=== PATIENT | male | born 1985 | race Caucasian/White ===

== ENCOUNTER 2023-07-09 10:07 | Outpatient (OUT) | payer MEDICARE, MEDICAID, SELFPAY ==
--- NOTE | 2023-07-09 | XR_ITS ---
The [address] [address] Patient Name: MICHAEL AN MRN: [id number] date: 1985 Sex: M Assigned Patient Location: [facility] Current Patient Location: Accession/Order Number: [id number] Exam Date: 07/09/2023 10:10 Report Date: 07/10/2023 08:58 At the request of: SHARLA PEDROZA Procedure: XR foot LT min 3V PROCEDURE: XR foot LT min 3V COMPARISON: None. HISTORY: LEFT FOOT PAIN FINDINGS: BONES:5 mm corticated bone fragment identified along the proximal lateral cuboid likely related to mild degenerative change. No definite fracture or dislocation SOFT TISSUES:Negative. No visible soft tissue swelling. EFFUSION:None visible. OTHER: Negative. XR/XR foot LT min 3V IMPRESSION: No acute abnormality Electronically authenticated by: ANGIE FULLER Date: 07/10/2023 08:58
== END 2023-07-09 10:08 | disposition home or self-care (01) ==
LOC: RAD 10:10
PROVIDERS: PCP Internal Medicine; Visit Provider Physician Assistant
DX: M79.672 Pain in left foot (principal)
CPT/HCPCS: 73610; 73630

== ENCOUNTER 2023-08-11 13:01 | Outpatient (RCR) | payer MEDICARE, MEDICAID, SELFPAY | END 2023-09-04 15:36 | disposition home or self-care (01) | LOC: PT 13:01 | PROVIDERS: PCP Internal Medicine; Visit Provider Physician Assistant | DX: M76.822 Posterior tibial tendinitis, left leg (principal) | CPT/HCPCS: 97110; 97162; G0283 ==

== ENCOUNTER 2023-09-16 09:29 | Outpatient (OUT) | payer MEDICARE, MEDICAID, SELFPAY ==
--- NOTE | 2023-09-16 09:33 | MR_ITS ---
The [address] [address] Patient Name: MICHAEL AN MRN: [id number] date: 1985 Sex: M Assigned Patient Location: MRI Current Patient Location: Accession/Order Number: [id number] Exam Date: 09/16/2023 09:42 Report Date: 09/17/2023 08:24 At the request of: HOWARD NAM Procedure: MR ankle LT wo con EXAM: MR ankle LT wo con REASON FOR EXAM: Ankle Instability. TECHNIQUE: Multiplanar, multisequence imaging of the left ankle was performed without contrast COMPARISON: Radiographs 07/09/2023. FINDINGS: There is fusiform thickening and intermediate signal involving the Achilles tendon consistent with tendinosis. No tear identified. The plantar fascia is normal in thickness. Laterally, peroneal tendons demonstrate grossly normal thickness and signal without significant tendinosis or tear. Possible mild tenosynovitis. The superficial peroneal retinaculum is intact. Thickening and intermediate signal involving the anterior talofibular and calcaneofibular ligaments is consistent with prior lateral ligamentous injury. No evidence of acute lateral ligamentous injury identified. Medially, the medial flexor tendons demonstrate normal thickness and signal without tendinosis or tear. The deep deltoid ligament is grossly intact. The spring ligament is intact. The partially imaged Lisfranc ligament appears intact. Anteriorly, the anterior extensor tendons demonstrate normal thickness and signal without tendinosis or tear. The bone marrow signal is without fracture. The talar dome is congruent with low-grade chondrosis. The subtalar joints congruent. The sinus tarsi is nonedematous. The midfoot appears congruent. 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 MR/MR ankle LT wo con IMPRESSION: 1. Achilles tendinosis without tear. 2. Sequela of prior lateral ligamentous injury. No evidence of acute ligamentous injury. 3. 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 Electronically authenticated by: JIMMY AZEVEDO Date: 09/17/2023 08:24
== END 2023-09-16 09:30 | disposition home or self-care (01) ==
LOC: MRI 09:29
PROVIDERS: PCP Internal Medicine; Visit Provider Podiatrist Foot & Ankle Surgery
DX: M25.372 Other instability, left ankle (principal); M76.62 Achilles tendinitis, left leg
CPT/HCPCS: 73721

== ENCOUNTER 2023-09-28 12:33 | Outpatient (OUT) | payer MEDICARE, MEDICAID, SELFPAY ==
--- OUTSIDE RECORDS SUMMARY | 2023-09-28 12:51 | XMS_ITS | CCD ---
Author Name Unknown Address [address] [place] [address] Organization [facility] Care Team Providers Care Flow Specialist Name Role Phone RM, DR VAZQUEZ Attending Unavailable RM, DR VAZQUEZ Consulting Unavailable RM, DR VAZQUEZ Primary Care Unavailable BALL, DR VAZQUEZ Admitting Unavailable ALINA, DR ANGIE Winslow Consulting Unavailable Luis Abdalla DO Primary Care Provider Angie Fernandes Jr. Unavailable Nadja Spencer RN Unavailable Unavailable Luis Abdalla DO Primary Care Provider Angie Fernandes Jr. Unavailable [phone] Nadja Spencer RN Unavailable Unavailable Dena Pineda DO, David L Unavailable Nadja Spencer RN Unavailable Unavailable Luis Abdalla DO Primary Care Provider Dena Pineda DO, David L Unavailable [phone] Nadja Spencer RN Unavailable Unavailable Luis Abdalla Unavailable LUIS ABDALLA Primary Care Unavailable ROSEMARIE SHEPARD Attending Unavailable BETINA QUEZADA Referring Unavailable HENRIETTA BREWSTER Attending Unavailable LUIS ABDALLA Primary Care Unavailable BETINA QUEZADA Attending Unavailable BETINA QUEZADA Referring Unavailable LUIS ABDALLA Primary Care Unavailable LUIS ABDALLA Primary Care Unavailable MINNA DWYER Attending Unavailable REYMUNDO CHARLES Admitting Unavailable MINNA DWYER Referring Unavailable SUZIE KNOTT Attending Unavailable LUIS ABDALLA Primary Care Unavailable LUIS ABDALLA Primary Care Unavailable BENNY CLEMONS Referring Unavailable LUIS ABDALLA Primary Care Physician [phone] Wilmer Rosenberg Attending Unavailable Allergies Allergy Classification Reported Allergen(s) Allergy Type Date of Onset Reaction(s) Facility Penicillins (antibiotic) (1 source) Penicillin Drug Allergy [facility] Repository (16 sources) Midazolam; Translations: [MIDAZOLAM] Drug Allergy 02-19-20 Other: See Comments [facility] (6 sources) Penicillins; Translations: [PENICILLINS] Drug Allergy Unknown [facility] Work Phone: (16 sources) Seasonal allergy; Translations: [SEASONAL ALLERGIES] Propensity to adverse reactions 06-29-20 Unknown [facility] (10 sources) Penicillins Drug Allergy Unknown [facility] Work Phone: (3 sources) penicillAMINE Drug Allergy Unknown [facility] Other (2 sources) Penicillin; Translations: [penicillin] Drug Allergy Urticaria (disorder) [facility] Medications Current Medications Medication Drug Class(es) Dates Sig (Normalized) Sig (Original) 0.4 ml enoxaparin sodium 100 mg/ml prefilled syringe (4 sources) Low Molecular Weight Heparin Start: 11-04-2021 End: 02-02-2022 inject 40 mg by subcutaneous injection every twelve hours enoxaparin (LOVENOX) 40 mg/0.4 mL Inject 0.4 mL subcutaneously every 12 hours. 24 mL 2 11/04/2021 02/02/2022 Active Comment on above: Inject 0.4 mL subcut aneously every 12 hours. mupirocin 0.02 mg/mg topical ointment (2 sources) RNA Synthetase Inhibitor Antibacterial Start: 03-05-2023 Mupirocin 2 % 1 application Externally Twice a day for 10 days Feb, Active ondansetron 4 mg oral tablet (1 source) Serotonin-3 Receptor Antagonist take 1 tablet by mouth every eight hours as needed for nausea Ondansetron HCl 4 MG 1 tablet Orally every 8 hours as needed for nausea for 30 days Active tacrolimus 1 mg oral capsule (17 sources) Calcineurin Inhibitor Immunosuppressant Start: 05-05-2022 End: 04-30-2023 take 1 capsule by mouth twice daily tacrolimus IR (PROGRAF) 1 mg capsule Take 2 capsules by mouth twice daily. 120 capsule 11 05/05/2022 04/30/2023 Active Start: 11-04-2021 End: 05-01-2022 tacrolimus IR (PROGRAF) 1 mg capsule Please take 2mg in the morning and 1mg in the evening for a total of 3mg a day. 120 capsule 3 11/04/2021 05/01/2022 Discontinued take 3 capsules by m outh every twelve hours Tacrolimus 1 MG 3 tablets Orally twice a day Active Comment on above: Take 2 capsules by m outh twice daily. Please take 2mg in the morning and 1mg in the evening for a total of 3mg a day. Please take 2mg in t he morning and 1mg in the evening for a total of 3mg a day. Take 2 capsules by m outh twice daily. ursodiol 300 mg oral capsule (4 sources) Bile Acid Start: 11-04-2021 End: 12-04-2021 take 1 capsule by mouth three times daily ursodiol (ACTIGALL) 300 mg capsule Take 1 capsule by mouth three times daily. 90 capsule 0 11/04/2021 12/04/2021 Active Comment on above: Take 1 capsule by mo tnh three times daily. Completed/Discontinued Medications Medication Drug Class(es) Dates Sig (Normalized) Sig (Original) amLODIPine 10 mg oral tablet (16 sources) Dihydropyridine Calcium Channel Yazan Start: 10-13-2019 take 1 tablet by mouth once daily amLODIPine (NORVASC) 10 mg tablet TAKE 1 TABLET BY MOUTH ONCE DAILY. 30 tablet 5 10/13/2019 Active Comment on above: TAKE 1 TABLET BY SYLVESTER ONCE DAILY. carvedilol 12.5 mg oral tablet (17 sources) alpha-Adrenergic Yazan, beta-Adrenergic Yazan Start: 07-12-2021 take 1 tablet by mouth twice daily carvedilol (COREG) 12.5 mg tablet Take 1 tablet by mouth twice daily. 0 07/12/2021 Active take 1 tablet by sylvester th every twelve hours Carvedilol 25 MG 1 tablet with food Oral Twice a day Active Comment on above: Take 1 tablet by sylvester th twice daily. doxycycline hyclate 100 mg oral capsule (2 sources) Tetracycline-cla ss Drug Start: 03-05-2023 take 1 capsule by mouth every twelve hours Doxycycline Hyclate 100 MG 1 capsule Orally Twice a day for 7 days Feb, Not-Taking enteric contrast (will be provided with radiology test) (13 sources) Start: 12-16-2021 enteric contrast (will be provided with radiology test) For CT ABD W IVCON order Administer, As Directed One Time Only, via Oral, Rectal, both Oral and Rectal, Enteric Tube, Stoma or Indwelling Catheter, Enteric Contrast as designated per enteric contrast guidelines 1 Each 0 12/16/2021 Suspended Start: 12-16-[address] (will be provided with radiology test) For CT ABD W IVCON order Administer, As Directed One Time Only, via Oral, Rectal, both Oral and Rectal, Enteric Tube, Stoma or Indwelling Catheter, Enteric Contrast as designated per enteric contrast guidelines 1 Each 0 12/16/2021 Active Comment on above: For CT ABD W IVCON o rder Administer, As Directed One Time Only, via Oral, Rectal, both Oral and Rectal, Enteric Tube, Stoma or Indwelling Catheter, Enteric Contrast as designated per enteric contrast guidelines iv contrast (will be provided with radiology test) (13 sources) Start: 12-16-2021 iv contrast (will be provided with radiology test) CT ABD W -Inject, intravenously, once for 1 dose.No IV access, insert saline lock prior to the beginning of sedation, infusion, injection of imaging exam. Discontinue saline lock post exam. If Pt. has a central line or IVAD, may access for administration according to line specific nursing protocol. Once exam is complete flush line and de-access according to line specific nursing protocol in the CT contrast administration guidelines link. 1 Each 0 12/16/2021 Suspended Start: 12-16-2021 iv contrast (w ill be provided with radiology test) CT ABD W -Inject, intravenously, once for 1 dose.No IV access, insert saline lock prior to the beginning of sedation, infusion, injection of imaging exam. Discontinue saline lock post exam. If Pt. has a central line or IVAD, may access for administration according to line specific nursing protocol. Once exam is complete flush line and de-access according to line specific nursing protocol in the CT contrast administration guidelines link. 1 Each 0 12/16/2021 Active Comment on above: CT ABD W -Inject, in travenously, once for 1 dose.No IV access, insert saline lock prior to the beginning of sedation, infusion, injection of imaging exam. Discontinue saline lock post exam. If Pt. has a central line or IVAD, may access for administration according to line specific nursing protocol. Once exam is complete flush line and de-access according to line specific nursing protocol in the CT contrast administration guidelines link. magnesium oxide 400 mg oral tablet (13 sources) Start: take 1 tablet by mouth twice daily magnesium oxide (MAG-OX) 400 mg (241.3 mg magnesium) tablet Take 1 tablet by mouth twice daily. 60 tablet 0 07/12/2021 Active Comment on above: Take 1 tablet by sylvester th twice daily. pantoprazole 40 mg delayed release oral tablet (16 sources) Proton Pump Inhibitor Start: take 1 tablet by mouth once daily, then take 6 tablets by mouth in the morning pantoprazole DR (PROTONIX) 40 mg tablet Take 1 tablet by mouth DAILY (6 AM). 30 tablet 0 07/13/2021 Active Comment on above: Take 1 tablet by sylvester th DAILY (6 AM). sulfamethoxazole 800 mg / trimethoprim 160 mg oral tablet (15 sources) Dihydrofolate Reductase Inhibitor Antibacterial, Sulfonamide Antimicrobial Start: take 1 tablet by mouth once sulfamethoxazole-tr imethoprim (BACTRIM DS,SEPTRA DS) 800-160 mg per tablet TAKE 1 TABLET BY MOUTH EVERY THURSDAY,THURSDAY,. 13 tablet 11 09/02/2021 Suspended take 1 tablet by sylvester th every twenty-four hours Bactrim 400-80 MG 1 tablet Orally Once a day Not-Taking Comment on above: TAKE 1 TABLET BY SYLVESTER TH EVERY THURSDAY,THURSDAY,THURSDAY. 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] Onset: 3 Chronic Coagulation and hemorrhagic disorders (6 sources) Thrombocytopenic disorder; Translations: [Thrombocytopenia, unspecified] Onset: 8 Chronic Complication of device; implant or graft (15 sources) Acute rejection of liver transplant; Translations: [Liver transplant rejection] Onset: 9 07-19-2019 Episodic Deficiency and other anemia (17 sources) Anemia; Translations: [Anemia, unspecified] Onset: 9 07-15-2019 Episodic Deficiency and other anemia (1 source) Anemia, unspecified Episodic Esophageal disorders (1 source) Gastro-esophageal reflux disease with esophagitis; Translations: [Gastroesophageal reflux disease with esophagitis without hemorrhage] Chronic Essential hypertension (20 sources) Essential hypertension; Translations: [Essential (primary) hypertension] Onset: 1 07-12-2021 Chronic Hypertension with complications and secondary hypertension (4 sources) Chronic kidney disease due to hypertension; Translations: [Hypertensive chronic kidney disease with stage 1 through stage 4 chronic kidney disease, or unspecified chronic kidney disease] Chronic Immunity disorders (5 sources) Immunosuppression; Translations: [Immunodeficiency, unspecified] Chronic Immunizations and screening for infectious disease (1 source) Vaccination given; Translations: [Encounter for immunization] Episodic Nausea and vomiting (1 source) Nausea Episodic Nutritional deficiencies (14 sources) Deficiency of macronutrients; Translations: [Unspecified severe protein-calorie malnutrition] Onset: 8 2021 Chronic Other liver diseases (3 sources) Disease of liver; Translations: [Liver disease, unspecified] Chronic Other liver diseases (3 sources) Steatosis of liver; Translations: [Fatty (change of) liver, not elsewhere classified] Chronic Other liver diseases (3 sources) Transplanted liver present; Translations: [Liver transplant status] Chronic Other liver diseases (4 sources) Liver transplant status; Translations: [Liver transplant recipient (HCC)] Onset: 2 Chronic Other liver diseases (4 sources) Jaundice; Translations: [Unspecified jaundice] Onset: 8 Episodic Other nutritional; endocrine; and metabolic disorders (14 sources) Hemochromatosis; Translations: [Hemochromatosis, unspecified] Onset: 8 07-12-2021 Chronic Other nutritional; endocrine; and metabolic disorders (14 sources) Obese class I; Translations: [Obesity, unspecified] Onset: 8 07-14-2018 Chronic Other nutritional; endocrine; and metabolic disorders (14 sources) Hypomagnesemia; Translations: [Hypomagnesemia] Onset: 1 07-12-2021 Chronic Other nutritional; endocrine; and metabolic disorders (1 source) Disorder of iron metabolism; 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, unspecified] Chronic Other nutritional; endocrine; and metabolic disorders (1 source) Hereditary hemochromatosis; Translations: [Hereditary hemochromatosis] Chronic Other nutritional; endocrine; and metabolic disorders (1 source) Simple obesity ; Translations: [Other obesity due to excess calories] Onset: 8 Chronic Other nutritional; endocrine; and metabolic disorders (1 source) Obesity; Translations: [Obesity, unspecified] Chronic Other nutritional; endocrine; and metabolic disorders (1 source) Hypomagnesemia; Translations: [Hypomagnesemia] Onset: 1 Chronic Other skin disorders (2 sources) Vesicular eczema; Translations: [Dyshidrosis [pompholyx]] Episodic Other skin disorders (1 source) Dyshidrosis [pompholyx] Episodic Other upper respiratory disease (14 sources) Allergic rhinitis due to pollen; Translations: [Allergic rhinitis due to pollen] Onset: 9 09-01-2018 Chronic Pancreatic disorders (not diabetes) (20 sources) Acute pancreatitis; Translations: [Acute pancreatitis without necrosis or infection, unspecified] Onset: 1 07-12-2021 Episodic Phlebitis; thrombophlebitis and thromboembolism (3 sources) Embolism and thrombosis of renal vein; Translations: [Embolism and thrombosis of the renal vein] Chronic Residual codes; unclassified (1 source) Prevention status; Translations: [Encounter for other specified prophylactic measures] Episodic Skin and subcutaneous tissue infections (15 sources) Cellulitis; Translations: [Cellulitis, unspecified] Onset: 8 07-13-2018 Episodic Spondylosis; intervertebral disc disorders; other back problems (8 sources) Other spondylosis with radiculopathy, cervical region; Translations: [Other spondylosis with myelopathy, cervical region] Onset: 1 Chronic Sprains and strains (2 sources) Sprain of left foot; Translations: [Unspecified sprain of left foot, initial encounter] Onset: 3 Episodic Past or Other Problems Problem Classification Problem Date Documented Da te Episodic/Chronic Abdominal pain (1 source) Right upper quadrant pain; Translations: [Right upper quadrant pain] Onset: 09-10-2017 Episodic E Codes: Adverse effects of medical drugs (14 sources) Adverse reaction to drug; Translations: [Adverse effect of unspecified drugs, medicaments and biological substances, initial encounter] Onset: 09-01-2018 09-01-2018 Episodic Esophageal disorders (4 sources) Esophageal disorders; Translations: [Gastroesophageal reflux disease with esophagitis without hemorrhage] Gastrointestinal hemorrhage (1 source) Hematemesis; Translations: [Hematemesis] Onset: 09-10-2017 Episodic Other circulatory disease (14 sources) Elevated blood-pressure reading without diagnosis of hypertension; Translations: [Elevated blood-pressure reading, without diagnosis of hypertension] Onset: 07-13-2019 07-15-2019 Episodic Other upper respiratory disease (1 source) Bleeding from nose; Translations: [Epistaxis] Onset: 11-26-2017 Episodic Septicemia (except in labor) (1 source) Sepsis, unspecified organism; Translations: [Sepsis, due to unspecified organism, unspecified whether acute organ dysfunction present (HCC)] Onset: 08-31-2022 Episodic Results Test Name Value Interpretation Reference Range Facility Consent for Treatmenton 05-28 Consent for Treatment [id number] IFF Normal [facility] Discharge Instructionson Discharge Instructions [id number] Normal [facility] ED Clinical Summaryon 2022 ED Clinical Summary (Inserted Image. Suzanne ble to display) [place] [id number] ED Clinical Summary Person Information Name: CHUCKIE VILLALTA Marissa/[facility] Age: 37 Years : 1985 Sex: Male Language: Georgian PCP: LUIS ABDALLA DO Marital Status: Phone: [phone] Visit Id: Visit Reason: Foot pain-swelling; PAIN IN LEFT FOOT Speciality: Acuity: 4 Enc Type: Emergency Med Service: Emergency Arrival: 06/20/2023 15:53:53 Discharge: 06/20/2023 18:03:37 LOS: 000 02:10 Checkin: 06/20/2023 15:53:53 Checkout: 06/20/2023 18:03:37 Dispo Type: Home (Routine DC) EVENTS: Event Name Event Status Request Date/Time Start Date/Time Complete Date/Time Arrive Complete 06/20/2023 15:53:53 06/20/2023 15:53:53 06/20/2023 15:53:53 Document Home Meds Request 06/20/2023 15:53:53 Triage Complete 06/20/2023 15:53:53 06/20/2023 16:14:54 06/20/2023 16:14:54 Registration Complete 06/20/2023 16:08:28 06/20/2023 16:08:28 06/20/2023 16:08:28 Reg Complete Request 06/20/2023 16:08:28 Reg Bed Request Complete 06/20/2023 16:08:28 06/20/2023 16:08:28 06/20/2023 16:08:28 X-Ray Complete 06/20/2023 16:15:32 06/20/2023 16:58:50 06/20/2023 17:27:00 X-Ray Complete 06/20/2023 17:05:28 06/20/2023 17:05:55 06/20/2023 17:27:00 Bed Assign Complete 06/20/2023 17:14:54 06/20/2023 17:14:54 06/20/2023 17:14:54 Dr Exam Complete 06/20/2023 17:14:54 06/20/2023 17:15:13 06/20/2023 17:15:13 RN Exam Complete 06/20/2023 17:14:54 06/20/2023 18:02:59 06/20/2023 18:02:59 Registration Request 06/20/2023 17:15:13 Wet Read Request 06/20/2023 17:27:00 Dr Exam Complete 06/20/2023 17:29:43 06/20/2023 17:29:43 06/20/2023 17:29:43 Patient Care Complete 06/20/2023 17:48:19 06/20/2023 18:03:09 Discharge Complete 06/20/2023 17:48:57 06/20/2023 18:04:25 06/20/2023 18:04:25 Transfer Complete 06/20/2023 18:04:25 06/20/2023 18:04:25 06/20/2023 18:04:25 ADDRESS: [id number] [id number] PHYS DOC NOTES: MEDICAL INFORMATION: Prescriptions Given: PATIENT EDUCATION INFORMATION: Instructions: Foot Sprain; Elastic Bandage and RICE Therapy; Ankle Sprain, Phase II Rehab; Ankle Sprain, Phase I Rehab; Ankle Sprain Follow up: With: Address: When: LUIS ABDALLA [address], [place] [address] Business (1) In 3 days 06/23/2023 Comments: Follow-up with your primary care provider in 3 to 5 days. If symptoms worsen, do not improve, or new symptoms arise please report back to emergency department for further evaluation. DIAGNOSIS: Left ankle sprain; Sprain of left foot Normal [facility] ED Note-Physicianon 06-20-20 ED Note-Physician Basic Information Time Seen: Dilan Adames PA-C 06/20/2023 17:15 Chief Complaint pt c\o L foot pain after twisting while walking History of Present Illness A 37-year-old male reports emerged department with chief complaint of left ankle and left foot pain after twisting his ankle while walking it on . Reports has been swelling up little bit. He states that he was able to walk on it somewhat, but yesterday could not walk at all, and today is not able to put any weight on it. Wanting it checked out. Denies any blood thinner use. He reports that he does have a history of liver transplant. States he has not been taking anything for pain. Review of Systems A 10 point review of systems is negative except as noted above. Medical and Surgical History: Reviewed and noted Social history: Lives at home Family History: Reviewed. Tobacco: Denies Physical Exam Vitals & Measurements T: 36.1 ?C(Oral) HR: 114(Peripheral) RR: 18 BP: 160/85 SpO2: 100% HT: 182 cm WT: 100 kg BMI: 30.19 General: The patient appears well and in no apparent distress. Patient is resting comfortably in chair. Afebrile Skin: Warm, dry, no pallor noted. Head: Normocephalic, atraumatic Neck: No JVD Eye: PERRLA, EOMI ENT: Moist mucus membranes Cardiovascular: Regular rate normal peripheral perfusion. Pedal pulses +2 bilaterally. Cap refill is brisk Respiratory: No respiratory distress no accessory muscle use no obvious audible wheezing Chest Wall: no deformity Musculoskeletal: Limited range of motion of left ankle and left foot due to pain. There is mild swelling along the lateral aspect of the lateral malleolus into the midfoot area. Tenderness to palpation of the midfoot, and lateral malleolus that wraps around to the medial malleolus anteriorly. GI: No obvious distention Neurological: A&O moves all extremities equal strength and symmetry Psychiatric: Cooperative and appropriate Medical Decision Making MEDICAL DECISION MAKING Number and Complexity of Problems Differential Diagnosis: [] [facility] Data External documents reviewed: [] My EKG interpretation: [] My CT interpretation: [] My X-ray interpretation: Reviewed My Ultrasound interpretation: [] Decision rules/scores evaluated: [] Discussed with: [] Treatment and Disposition ED Course: 37-year-old male reports emergency department with chief complaint of left ankle pain. Reports that he twisted it wrong, and has been having pain in his left ankle and left foot ever since . On physical exam left ankle is neurovascular intact. There is mild swelling along the lateral aspect of the ankle and foot. Due to his concerns, we did do x-rays of these areas. X-rays were negative for any acute fractures. Discussed with the patient. Discussed likely bad sprains of the left ankle and left foot. Continue to rest, ice, compress, and elevate your affected joint to relieve inflammation and swelling. You may also take ibuprofen to help with pain. Follow-up with your primary care provider in 3 to 5 days. If symptoms worsen, do not improve, or new symptoms arise please report back to emergency department for further evaluation. The patient was understanding and agreeable to plan moving forward. Shared decision making: [] Code status: [] Assessment/Plan Left ankle sprain (S93.402A: Sprain of unspecified ligament of left ankle, initial encounter) Sprain of left foot (S93.602A: Unspecified sprain of left foot, initial encounter) Orders: Air Cast Long Disposition Plan Patient Discharge Condition Stable Discharge Disposition To home Discharge Prescription List Prescriptions No active prescription medications Follow-up With When Contact Information LUIS ABDALLA In 3 days 06/23/2023 EST [address] [place] [phone]- Business (1) Additional Instructions: Follow-up with your primary care provider in 3 to 5 days. If symptoms worsen, do not improve, or new symptoms arise please report back to emergency department for further evaluation. Patient Education Foot Sprain Elastic Bandage and RICE Therapy Ankle Sprain, Phase II Rehab Ankle Sprain, Phase I Rehab Ankle Sprain Attestation Patient seen and evaluated by the physician assistant women's soccer coach. Attending physician was present in the emergency department and supervised care. This visit was performed by both the physician and an APC. I performed all aspects of the MDM as documented. This report was transcribed using voice recognition software. Every effort was made to ensure accuracy, however, inadvertently computerized casting machine operator mistakes may be present. Appropriate healthcare PPE was used in evaluating this patient. The patient was placed in a mask. The healthcare provider was wearing mask, gloves, and utilizing proper hand hygiene. All equipment was properly cleansed. Problem List/Past Medical History Ongoing No qualifying data Historical No qualifyi (more content not included)... Normal [facility] Comment on above: Result Comment: Elec tronically Signed By: Dilan Adames PA-C\.br\Date and Time Signed: 06/20/23 18:38 EST\.br\Electronically Co-Signed By: Wilmer Rosenberg M.D.\.br\Date and Time Co-Signed: 06/20/23 19:32 EST ED Patient Education Noteon 06-20-2023 ED Patient Education Note Orthopedics Foot Sprain A foot sprain is an injury to one of the ligaments in the feet. Ligaments are strong tissues that connect bones to each other. The ligament can be stretched too much. In some cases, it may tear. A tear can be either partial or complete. The severity of the sprain depends on how much of the ligament was damaged or torn. What are the causes? This condition is usually caused by suddenly twisting or pivoting your foot. What increases the risk? You are more likely to develop this condition if: ? You play a sport, such as basketball or football. ? You exercise or play a sport without first warming up your muscles. ? You start a new workout or sport. ? You suddenly increase how long or hard you exercise or play a sport. ? You have injured your foot or ankle before. What are the signs or symptoms? Symptoms of this condition start soon after an injury and include: ? Pain, especially in the arch of your foot. ? Bruising. ? Swelling. ? Being unable to walk or use your foot to support body weight. How is this diagnosed? This condition is diagnosed with a medical history and physical exam. You may also have imaging tests, such as: ? X-rays to check for broken bones (fractures). ? An MRI to see if the ligament is torn. How is this treated? Treatment for this condition depends on the severity of the sprain. Mild sprains and major sprains can be treated with: ? Rest, ice, pressure (compression), and elevation (RICE). Elevation means raising your injured foot. ? Keeping your foot in a fixed position (immobilization) for a period of time. This is done if your ligament is overstretched or partially torn. Your health care provider will apply a bandage, splint, or walking boot to keep your foot from moving until it heals. ? Using crutches or a scooter for a few weeks to avoid bearing weight on your foot while it is healing. ? Physical therapy exercises to improve movement and strength in your foot. Major sprains may also be treated with: ? Surgery. This is done if your ligament is fully torn and a procedure is needed to reconnect it to the bone. ? A cast or splint. This will be needed after surgery. A cast or splint will need to stay on your foot while it heals. Follow these instructions at home: If you have a bandage, splint, or boot: ? Wear it as told by your health care provider. Remove it only as told by your health care provider. ? Loosen it if your toes tingle, become numb, or turn cold and blue. ? Keep it clean and dry. If you have a cast: ? Do not put pressure on any part of the cast until it is fully hardened. This may take several hours. ? Do not stick anything inside the cast to scratch your skin. Doing that increases your risk for infection. ? Check the skin around the cast every day. Tell your health care provider about any concerns. ? You may put lotion on dry skin around the edges of the cast. Do not put lotion on the skin underneath the cast. ? Keep it clean and dry. Bathing ? Do not take baths, swim, or use a hot tub until your health care provider approves. Ask your health care provider if you may take showers. You may only be allowed to take sponge baths. ? If the bandage, splint, boot, or cast is not waterproof: ? Do not let it get wet. ? Cover it with a watertight covering when you take a bath or shower. Managing pain, stiffness, and swelling ? If directed, put ice on the injured area. To do this: ? If you have a removable bandage, splint, or boot, remove it as told by your health care provider. ? Put ice in a plastic bag. ? Place a towel between your skin and the bag, or between your cast and the bag. ? Leave the ice on for 20 minutes, 2?3 times per day. ? Remove the ice if your skin turns bright red. This is very important. If you cannot feel pain, heat, or cold, you have a greater risk of damage to the area. ? Move your toes often to reduce stiffness and swelling. ? Elevate the injured area above the level of your heart while you are sitting or lying down. Activity ? Do not use the injured foot to support your body weight until your health care provider says that you can. Use crutches or a scooter as told by your health care provider. ? Ask your health care provider what activities are safe for you. Do exercises as told by your health care provider. ? Gradually increase how much and how far you walk until your health care provider says it is safe to return to full activity. Driving ? Ask your health care provider if the medicine prescribed to you requires you to avoid driving or using machinery. ? Ask your health care provider when it is safe to drive if you have a bandage, splint, boot, or cast on your foot. General instructions ? Take omfg-sur-krbimrx and prescription medicines only as told by your health care provider. ? When you can walk without pain, wear supportive shoes t (more content not included)... Normal [facility] ED Patient Summaryon 023 ED Patient Summary (Inserted Image. Suzanne ble to display) [address] [address] Patient Discharge Instructions Person Information Name: CHUCKIE VILLALTA Age: 37 Years Arrival Date: 06/20/2023 15:53:53 Discharge Diagnosis: Left ankle sprain; Sprain of left foot Primary Care Physician: LUIS ABDALLA DO Provider Information Primary Provider: Wilmer Rosenberg M.D. [employer] Contact Printer:None The exam and treatment you received in the Emergency Department were for an urgent problem and are not intended as complete care. It is important that you follow up with a doctor, nurse practitioner, or physician?s assistant women's soccer coach for ongoing care. If your symptoms become worse or you do not improve as expected and you are unable to reach your usual health care provider, you should return to the Emergency Department. We are available 24 hours a day. CHUCKIE VILLALTA has been given the following list of patient education materials, prescriptions and follow-up instructions: Follow-up Instructions: With: Address: When: LUIS ABDALLA [address] [place], [place] [id number] [facility] () In 3 days 06/23/2023 Comments: Follow-up with your primary care provider in 3 to 5 days. If symptoms worsen, do not improve, or new symptoms arise please report back to emergency department for further evaluation. In the event that this physician does not participate in your insurance network, please consult with your insurance company to find a nearby participating provider. Patient Education Materials: Foot Sprain; Elastic Bandage and RICE Therapy; Ankle Sprain, Phase II Rehab; Ankle Sprain, Phase I Rehab; Ankle Sprain A MESSAGE TO ALL PATIENTS REGARDING OPIOIDS PRESCRIPTION OPIOIDS: WHAT YOU NEED TO KNOW Prescription opioids can be used to help relieve fajbpbap-cp-ieuouk pain and are often prescribed following a surgery or injury, or for certain health conditions. These medications can be an important part of the treatment but also come with serious risks. It is important to work with your healthcare provider to make sure you are getting the safest, most effective care. WHAT ARE THE RISKS AND SIDE EFFECTS OF OPIOID USE? Prescription opioids carry serious risks of addiction and overdose, especially with prolonged use. An opioid overdose, often marked by slowed breathing, can cause sudden . The use of prescription opioids can have a number of side effects as well, even when taken as directed: ? Tolerance?meaning you might need to take more of the medication for the same pain relief ? Physical dependence?meaning you have symptoms of withdrawal when a medication is stopped ? Increased sensitivity to pain ? Constipation ? Nausea, vomiting, and dry mouth ? Sleepiness and dizziness ? Confusion ? Depression ? Low levels of testosterone that can result in lower sex drive, energy, and strength ? Itching and sweating RISKS ARE GREATER WITH: ? History of drug misuse, substance use disorder, or overdose ? Mental health conditions (such as depression or anxiety) ? Sleep apnea ? Older age (65 years and older) ? Avoid alcohol while taking prescription opioids. Also, unless specifically advised by your health care provider, medications to avoid include: ? Benzodiazepines (such as Xanax or Valium) ? Muscle relaxants (such as Soma or Flexeril) ? Hypnotics (such as Ambien or Lunesta) ? Other prescription opioids KNOW YOUR OPTIONS Talk to your health care provider about ways to manage your pain that don?t involve prescription opioids. Some of these options may actually work better and have fewer risks and side effects. Options may include: ? Pain relievers such as acetaminophen, ibuprofen, and naproxen ? Some medication that are also used for depression or seizures ? Physical therapy and exercise ? Cognitive behavioral therapy, a psychological, goal-directed approach, in which patients learn how to modify physical, behavioral, and emotional triggers of pain and stress. IF YOU ARE PRESCRIBED OPIOIDS FOR PAIN: ? Never take opioids in greater amounts or more often than prescribed. ? Follow up with your primary health care provider. o Work together to create a plan on how to manage your pain. o Talk about ways to help manage your pain that don?t involve prescription opioids. o Talk about any and all concerns and side effects. ? Help prevent misuse and abuse o Never sell or share prescription opioids. o Never use another person?s prescription opioids. ? Store prescription opioids in a secure place and out of reach of others (this may include visitors, children, friends, and family). ? Safely dispose of unused prescription opioids: Find your community drug take-back program or your pharmacy mail-back program, or flush them down the toilet, following guidance from the Food and Drug Administration (www.fda.gov/Kali (more content not included)... Normal [facility] XR Ankle 3+ Views Lefton XR Ankle 3+ Views Left Exam Date/Time: 06/20/2023 17:26 EST Reason for Exam: Fall Report IMPRESSION: NO EVIDENCE OF A FRACTURE OR OTHER BONE ABNORMALITY IN THE LEFT ANKLE. CLINICAL HISTORY: Fall COMPARISON: None available. FINDINGS: AP, lateral and oblique views of the left ankle demonstrates no fracture, dislocation or other bone abnormality. Ordering Provider: Wilmer Rosenberg FINAL REPORT Dictated: 06/20/2023 5:29 pm Luis Carrasco MD Signed (Electronic Signature): 06/20/2023 5:29 pm Signed by: Luis Carrasco MD Transcribed by: DAVID Technologist: PATRICIA Technical Comments Radiation Dose: Ka,r in mGy = na DAP = na Normal [facility] XR Foot 3+ Views Lefton 05-28 XR Foot 3+ Views Left Exam Date/Time: 06/20/2023 17:26 EST Reason for Exam: Pain, Non Traumatic Report IMPRESSION: NEGATIVE LEFT FOOT. CLINICAL HISTORY: Pain, Non Traumatic COMPARISON: None available. FINDINGS: AP, lateral and oblique views of the left foot demonstrate no evidence of a fracture, dislocation, bone or joint abnormality. Ordering Provider: Wilmer Rosenberg FINAL REPORT Dictated: 06/20/2023 5:29 pm Luis Carrasco MD Signed (Electronic Signature): 06/20/2023 5:29 pm Signed by: Luis Carrasco MD Transcribed by: DAVID Technologist: PATRICIA Technical Comments Radiation Dose: Ka,r in mGy = na DAP = na Normal [facility] ANES POSTPROC EVALon 023 ANES POSTPROC EVAL HNO ID: [id number] Author: Delmer Webber MD Service: ? Author Type: Anesthesiologist Type: Anesthesia Postprocedure Evaluation Filed: 03/19/2023 10:05 AM Note Text: POST ANESTHESIA EVALUATION NOTE : 1985 Procedure Summary Date: 03/19/23 Room / Location: Gastroenterology Anesthesia Start: 909 Anesthesia Stop: 954 Procedure: ERCP Diagnosis: Liver transplant recipient (HCC) Biliary stricture of transplanted liver (HCC) (Post liver transplant assessment) Scheduled Providers: Betina Quezada MD; Delmer Webber MD; Henrietta Brewster APRN.AREA CLEANER Responsible Provider: Delmer Webber MD Anesthesia Type: general ASA Status: 4 Anesthesia Type: general Airway Type: supplemental O2 Last Vitals Vitals Value Taken Time BP 157/91 03/19/23 1000 Temp 36 ?C (96.8 ?F) 03/19/23 0955 Pulse 83 03/19/23 1003 Resp 16 03/19/23 1000 SpO2 95 % 03/19/23 1003 Vitals shown include unvalidated device data. Post Anesthesia Patient Status Patient Evaluation: bedside. Anticipated Disposition: phase 2 then home. Neurological Status: aware and responsive. Pulmonary Status: breathing comfortably on room air Airway Control: returned to baseline unsupported. Cardiovascular Status: stable. Pain Management: clinically adequate Postoperative Hydration: acceptable. Intraoperative Events: no significant anesthesia events Post Operative Nausea/Vomiting Status: no significant post operative nausea or vomiting Recommendation: further care per PACU/ICU/floor team. Anesthesia Observations No Documentation SIGNATURE: Delmer Webber MD PATIENT NAME: Chuckie Villalta DATE: March 19, 2023 TIME: 10:05 AM CSN: [id number] Normal [facility] ANES PRE-OPon 03-19-2023 ANES PRE-OP HNO ID: [id number] Author: Delmer Webber MD Service: ? Author Type: Anesthesiologist Type: Anesthesia Preprocedure Evaluation Filed: 03/19/2023 8:02 AM Note Text: ANESTHESIOLOGY DAY OF SURGERY NOTE : 1985 Procedure Information Date/Time: 03/19/23 0800 Scheduled providers: Betina Quezada MD; Delmer Webber MD; Henrietta Brewster APRN.AREA CLEANER Procedure: ERCP Location: Gastroenterology Estimated body mass index is 29.84 kg/m? as calculated from the following: Height as of 12/11/22: 182.9 cm (6'). Weight as of 12/11/22: 99.8 kg (220 lb). Most recent hematocrit and potassium results: Hematocrit 37.4 09/05/2022 Potassium 3.8 09/05/2022 Potassium (POCT) 4.9 07/05/2021 Relevant Problems CARDIO (+) Primary hypertension -RENAL (+) YOAN (acute kidney injury) (HCC) (+) Acute rejection of liver transplant (HCC) I - PHYSICAL EVALUATION AIRWAY Patient intubated: No. Tracheostomy tube not present Mallampati: IV. TM distance: >3 FB. Neck ROM: full ROM without neurological symptoms. Mouth opening: adequate. Thick neck: no II - ANESTHESIA PLAN ASA Score: 4 Anesthetic Plan: general Airway type: supplemental O2 NPO Status: adequate Beta Yazan Monitoring Plan Monitoring plan: standard ASA. Post Procedure Analgesic Plan Postoperative analgesic plan: multimodal analgesia. Informed Consent Anesthetic risks, benefits, alternatives, personnel and consent discussed: yes. Patient / Responsible Libertarian agrees to proceed: yes Patient / Surrogate agrees to blood products: Yes Significant changes in the patient condition since the History and Physical, not otherwise documented in primary service progress note: no. Potential Anesthesia issues that may suggest increased risk of complications or contraindication to planned procedure: none. No vitals data found for the desired time range. Outpatient Medications as of 03/19/2023 Medication Sig - tacrolimus IR (PROGRAF) 1 mg capsule Take 2 capsules by mouth twice daily. - iv contrast (will be provided with radiology test) CT ABD W -Inject, intravenously, once for 1 dose.No IV access, insert saline lock prior to the beginning of sedation, infusion, injection of imaging exam. Discontinue saline lock post exam. If Pt. has a central line or IVAD, may access for administration according to line specific nursing protocol. Once exam is complete flush line and de-access according to line specific nursing protocol in the CT contrast administration guidelines link. - enteric contrast (will be provided with radiology test) For CT ABD W IVCON order Administer, As Directed One Time Only, via Oral, Rectal, both Oral and Rectal, Enteric Tube, Stoma or Indwelling Catheter, Enteric Contrast as designated per enteric contrast guidelines - carvedilol (COREG) 12.5 mg tablet Take 1 tablet by mouth twice daily. - pantoprazole DR (PROTONIX) 40 mg tablet Take 1 tablet by mouth DAILY (6 AM). - magnesium oxide (MAG-OX) 400 mg (241.3 mg magnesium) tablet Take 1 tablet by mouth twice daily. - amLODIPine (NORVASC) 10 mg tablet TAKE 1 TABLET BY MOUTH ONCE DAILY. (Patient taking differently: Take 10 mg by mouth once daily.) No current facility-administered medications on file as of 03/19/2023. I have interviewed and examined the patient. I have reviewed the medical record and/or the pre-anesthesia evaluation, pertinent labs, and test results. This contains updated information obtained within 48 hours of Surgery/Procedure. SIGNATURE: Delmer Webber MD PATIENT NAME: Chuckie Villalta DATE: March 19, 2023 TIME: 8:02 AM CSN: [id number] Normal [facility] Gas and Carbon monoxide pane l (BldV)on 03-19-2023 BASE DEFICIT, VENOUS -3 mmol/L Low -2-0 [facility] Comment on above: Order Comment: Noe madrid Type: BLOOD SPECIMEN Ordering Facility: [facility] Address: [address] [place] [address] Performed By: #### 5 763-8, COPPER #### [facility] CLIA [id number] [facility] [address] STATES OF [facility] Body temperature 98.24 [degF] Normal [facility] Comment on above: Order Comment: Noe madrid Type: BLOOD SPECIMEN Ordering Facility: [facility] Address: [address] [place] [address] Performed By: #### 5 763-8, COPPER #### [facility] CLIA [id number] [address] [place] [address] [place] Calcium.ionized (Bld) [Mass/Vol] 1.24 mmol/L Normal 1.08-1.30 [facility] Comment on above: Order Comment: Noe madrid Type: BLOOD SPECIMEN Ordering Facility: [facility] Address: [address] [place] [address] Performed By: #### 5 763-8, COPPER #### [facility] CLIA [id number] [address] OF [place] Calcium.ionized adjusted to pH 7.4 (BldA) [Moles/Vol] 1.23 mmol/L Normal 1.08-1.30 [facility] Comment on above: Order Comment: Speci men Type: BLOOD SPECIMEN Ordering Facility: [facility] Address: [address] [place], [place] [id number] Performed By: #### 5 763-8, COPPER #### [facility] CLIA [id number] [address] [place] [address] [place] Carboxyhemoglobin (BldV) [Mass fraction] 1.2 % Normal 0.0-2.0 [facility] Comment on above: Order Comment: Speci men Type: BLOOD SPECIMEN Ordering Facility: [facility] Address: [address] [place] [address] Result Comment: Carb oxyhemoglobin Reference Range for Smokers: 2.0-8.0% Performed By: #### 5 763-8, COPPER #### [facility] CLIA [id number] [address] [place] [address] [place] CO2 (BldV) [Partial pressure] 36 mm[Hg] Low 42-55 [facility] Comment on above: Order Comment: Speci men Type: BLOOD SPECIMEN Ordering Facility: [facility] Address: [address] [place], [place] [id number] Performed By: #### 5 763-8, COPPER #### [facility] CLIA [id number] [address] [place] [address] [place] CO2 adjusted to patient's actual temperature (BldV) [Partial pressure] 35 mmHg Low 42-55 [facility] Comment on above: Order Comment: Speci men Type: BLOOD SPECIMEN Ordering Facility: [facility] Address: [address] [place], [place] [id number] Performed By: #### 5 763-8, COPPER #### [facility] CLIA [id number] [address] [place] [address] [place] Glucose [Mass/Vol] 124 mg/dL High 60-105 [facility] Comment on above: Order Comment: Speci men Type: BLOOD SPECIMEN Ordering Facility: [facility] Address: [address] Performed By: #### 5 763-8, COPPER #### [facility] CLIA [id number] [address] [place] [address] [place] HCO3 (Bld) [Moles/Vol] 21 mmol/L Low 24-28 [facility] Comment on above: Order Comment: Speci men Type: BLOOD SPECIMEN Ordering Facility: [facility] Address: [address] Performed By: #### 5 763-8, COPPER #### [facility] CLIA [id number] [address] [place] [address] [place] Hematocrit (Bld) [Volume fraction] 41.1 % Normal 39.0-51.0 [facility] Comment on above: Order Comment: Speci men Type: BLOOD SPECIMEN Ordering Facility: [facility] Address: [address] [place], [place] [id number] Performed By: #### 5 763-8, COPPER #### [facility] CLIA [id number] [address] [place] [address] [place] Hemoglobin (Bld) [Mass/Vol] 13.4 g/dL Normal 13.0-17.0 [facility] Comment on above: Order Comment: Speci men Type: BLOOD SPECIMEN Ordering Facility: [facility] Address: [address] Performed By: #### 5 763-8, COPPER #### [facility] CLIA [id number] [address] [place] [address] [place] Lactate [Moles/Vol] 1.9 mmol/L Normal 0.5-2.2 [facility] Comment on above: Order Comment: Speci men Type: BLOOD SPECIMEN Ordering Facility: [facility] Address: [address] [place] [address] Performed By: #### 5 763-8, COPPER #### [facility] CLIA [id number] [address] [place] [address] [place] Methemoglobin (Bld) [Mass fraction] 0.8 % Normal 0.0-1.5 [facility] Comment on above: Order Comment: Speci men Type: BLOOD SPECIMEN Ordering Facility: [facility] Address: [address] Performed By: #### 5 763-8, COPPER #### [facility] CLIA [id number] [address] [place] [address] [place] O2 THERAPY RA=Room Air Normal [facility] Comment on above: Order Comment: Speci men Type: BLOOD SPECIMEN Ordering Facility: [facility] Address: [address] Performed By: #### 5 763-8, COPPER #### [facility] CLIA [id number] [address] [place] [address] [place] Oxygen (BldV) [Partial pressure] 69 mm[Hg] High 35-45 [facility] Comment on above: Order Comment: Speci men Type: BLOOD SPECIMEN Ordering Facility: [facility] Address: [address] [place] [address] Performed By: #### 5 763-8, COPPER #### [facility] CLIA [id number] [address] [place] [address] [place] Oxygen adjusted to patient's actual temperature (BldV) [Partial pressure] 68 mmHg High 35-45 [facility] Comment on above: Order Comment: Speci men Type: BLOOD SPECIMEN Ordering Facility: [facility] Address: [address] [place] [address] Performed By: #### 5 763-8, COPPER #### [facility] CLIA [id number] [address] [address] [place] Oxygen saturation in Venous blood 94 % High 60-85 [facility] Comment on above: Order Comment: Speci men Type: BLOOD SPECIMEN Ordering Facility: [facility] Address: [address] [place] [phone] Performed By: #### 5 763-8, COPPER #### [facility] CLIA [id number] [address] [place] [address] [place] Oxyhemoglobin (BldV) [Mass fraction] 92 % High 60-85 [facility] Comment on above: Order Comment: Speci men Type: BLOOD SPECIMEN Ordering Facility: [facility] Address: [address] [place] [address] Performed By: #### 5 763-8, COPPER #### [facility] CLIA [id number] [address] [place] [address] [place] pH (BldV) 7.39 [pH] Normal 7.32-7.42 [facility] Comment on above: Order Comment: Speci men Type: BLOOD SPECIMEN Ordering Facility: [facility] Address: [address] [place] [address] Performed By: #### 5 763-8, COPPER #### [facility] CLIA [id number] [address] [place] [address] [place] pH adjusted to patient's actual temperature (BldV) 7.39 Normal 7.32-7.42 [facility] Comment on above: Order Comment: Speci men Type: BLOOD SPECIMEN Ordering Facility: [facility] Address: [address] [place] [id number] Performed By: #### 5 763-8, COPPER #### [facility] CLIA [id number] [address] [place] [id number] [place] Potassium [Moles/Vol] 4.1 mmol/L Normal 3.5-5.0 [facility] Comment on above: Order Comment: Speci men Type: BLOOD SPECIMEN Ordering Facility: [facility] Address: [address] [place] [address] Performed By: #### 5 763-8, COPPER #### [facility] CLIA [id number] [address] [place] [address] OF [place] Sodium [Moles/Vol] 140 mmol/L Normal 136-144 [facility] Comment on above: Order Comment: Speci men Type: BLOOD SPECIMEN Ordering Facility: [facility] Address: [address] [place] [address] Performed By: #### 5 763-8, COPPER #### [facility] CLIA [id number] [address] [place] [address] [place] NURSING PROGon 03-19-2023 NURSING PROG HNO ID: [id number] Author: Blanca Kulkarni RN Service: Nursing Author Type: Registered Nurse Type: Nursing Progress Note Filed: 03/19/2023 10:02 AM Note Text: AMBULATORY PATIENT EDUCATION NOTE TOPIC: GI PROCEDURES: Endoscopic Retrograde CholangioPancreatograph y(ERCP) with or without biopsy,stenting,dilatio n and/or treatment READINESS TO LEARN INSTRUCTION PROVIDED TO: Patient, readness to learn accessed prior to procedure and Patient and family member COGNITIVE ABILITY: Alert and oriented PTED MOTIVATION TO LEARN: Interested FAMILY SUPPORT: High - Very involved in pt care IPATIENT LEARNS BEST BY: Individual Instruction Written Instruction - Hand-outs Verbal Instruction FACTORS AFFECTING LEARNING: None PHYSICAL LIMITATIONS AFFECTING LEARNING: None LEARNING RESPONSE METHOD OF INSTRUCTION: Individual instruction PATIENT / FAMILY RESPONSE: Verbalizes understanding of: WORSENING CONDITION-Signs and symptoms of a worsening condition that warrant a call to the physician FOLLOW-UP PLAN: Complete - No need for follow-up Patient instructed to call with any further issues SUPPLEMENTAL MATERIAL: Procedure Discharge Instructions REFERRAL (RECOMMENDATION): None Electronically Signed By: Blanca Kulkarni RN Normal [facility] NURSING PROG HNO ID: [id number] Author: Indu Meza RN Service: Nursing Author Type: Registered Nurse Type: Nursing Progress Note Filed: 03/19/2023 8:06 AM Note Text: PRE OP LEARNING ASSESSMENT PROCEDURE/SURGERY: GI PROCEDURES: ERCP READINESS TO LEARN COGNITIVE ABILITY: Alert and oriented MOTIVATION TO LEARN: Interested FAMILY SUPPORT: High - Very involved in pt care PATIENT LEARNS BEST BY: Individual Instruction FACTORS AFFECTING LEARNING: None PHYSICAL LIMITATIONS AFFECTING LEARNING: None Electronically Signed By: Indu Meza RN In Department: GASTROENTEROLOGY Normal [facility] 03-12-2023 CNPN Telephone (GASTPR) CHUCKIE VILLALTA ([id number]) 1985 M Date Time Provider Department 03/12/23 YAMILET YAN [facility] During your visit today, we recorded the following information about you: Yamilet Yan RN 03/12/2023 3:41 PM Signed GI Pre-Procedure Spoke with patient: Yes Confirmed date scheduled and patient report time: Yes Procedure Planned:Endoscopic Retrograde CholangioPancreatograph y(ERCP) with or without biopsy,stenting,dilatio n and/or treatment Is the patient on blood thinners?no Procedure Instructions given to patient: Yes, and they verbalized their understanding of instructions given Patient instructed to take prescribed preparation prior to procedure:Yes, and they verbalized their understanding of instructions given Patient instructed to have family/friend present for procedure transport home:Patient/patient bilingual sales representative was told that if they do not have a responsible adult accompany them to their procedure; and remain in the endoscopy area until they are discharged; that their procedure cannot be done with sedation or anesthesia and may be cancelled. and They verbalized their understanding and agree to have a responsible adult accompany the patient to their procedure and remain in the endoscopy area. Any barriers to Patient learning: Patient/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 Technician responded appropriately on phone. Type of instruction given: Verbal by telephone contact. Yamilet Yan RN Allergies As of Date: 03/12/2023 Noted Allergy Reaction PENICILLINS 16 - Unknown Comments: Skin test positive 09/01/18 MIDAZOLAM 02/18/2021 14 - Other: See Comments SEASONAL ALLERGIES 06/29/2018 16 - Unknown Date Reviewed: 12/11/2022 Reviewed by: Aicha Bragg, RN - Fully Assessed Reason for Visit: Appointment Confirmation [3505] Prescriptions as of 03/12/2023 - tacrolimus IR (PROGRAF) 1 mg capsule Take 2 capsules by mouth twice daily. - iv contrast (will be provided with radiology test) CT ABD W -Inject, intravenously, once for 1 dose.No IV access, insert saline lock prior to the beginning of sedation, infusion, injection of imaging exam. Discontinue saline lock post exam. If Pt. has a central line or IVAD, may access for administration according to line specific nursing protocol. Once exam is complete flush line and de-access according to line specific nursing protocol in the CT contrast administration guidelines link. - enteric contrast (will be provided with radiology test) For CT ABD W IVCON order Administer, As Directed One Time Only, via Oral, Rectal, both Oral and Rectal, Enteric Tube, Stoma or Indwelling Catheter, Enteric Contrast as designated per enteric contrast guidelines - carvedilol (COREG) 12.5 mg tablet Take 1 tablet by mouth twice daily. - pantoprazole DR (PROTONIX) 40 mg tablet Take 1 tablet by mouth DAILY (6 AM). - magnesium oxide (MAG-OX) 400 mg (241.3 mg magnesium) tablet Take 1 tablet by mouth twice daily. - amLODIPine (NORVASC) 10 mg tablet TAKE 1 TABLET BY MOUTH ONCE DAILY. Problem List As Of Date 03/12/2023 Noted Resolved Hemochromatosis [E83.119] 03/18/2018 Cellulitis [L03.90] 07/13/2018 Obesity, Class I, BMI 30-34.9 [E66.9] 07/14/2018 Severe protein-calorie malnutrition (HCC) [E43] 07/14/2018 Drug reaction [T50.905A] 09/01/2018 Seasonal allergic rhinitis due to pollen [J30.1]09/01/2018 Hepatic cirrhosis (HCC) [K74.60] 05/20/2019 08/03/2019 Liver transplant recipient (HCC) [Z94.4] 07/10/2019 Respiratory failure, post-operative (HCC) [J95.*07/11/2019 07/12/2019 Postoperative anemia [D64.9] 07/11/2019 Coagulopathy (HCC) [D68.9] 07/11/2019 08/03/2019 Acute pain [R52] 07/11/2019 08/03/2019 Elevated blood-pressure reading without diagnos*07/13/2019 Immunosuppressive management encounter followin*07/15/2019 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.*07/19/2019 Acute abdominal pain [R10.9] 07/21/2019 08/03/2019 Peritonitis (HCC) [K65.9] 07/25/2019 08/03/2019 Acute pancreatitis [K85.90] 07/05/2021 YOAN (acute kidney injury) (HCC) [N17.9] 07/05/2021 Hypomagnesemia [E83.42] 07/05/2021 Pancreatitis [K85.90] 07/05/2021 Primary hypertension [I10] 07/05/2021 Necrotizing pancreatitis [K85.91] 10/30/2021 Acute pancreatitis without infection or necrosi*09/01/2022 Encounter Status:Closed by YAMILET YAN on 03/12/23 [facility] ANES POSTPROC EVALon 023 ANES POSTPROC EVAL HNO ID: [id number] Author: Angie Lloyd MD Service: ? Author Type: Anesthesiologist Type: Anesthesia Postprocedure Evaluation Filed: 12/11/2022 12:58 PM Note Text: POST ANESTHESIA EVALUATION NOTE : 1985 Procedure Summary Date: 12/11/22 Room / Location: Gastroenterology Anesthesia Start: 1000 Anesthesia Stop: 1100 Procedure: ERCP Diagnosis: Biliary stricture (Stent change) Scheduled Providers: Betina Quezada MD Responsible Provider: Angie Lloyd MD Anesthesia Type: general ASA Status: 3 Anesthesia Type: general Airway Type: ETT Last Vitals Vitals Value Taken Time BP 151/97 12/11/22 1101 Temp 36.1 ?C (97 ?F) 12/11/22 1101 HR SpO2 64 12/11/22 1139 Resp 16 12/11/22 1101 SpO2 97 % 12/11/22 1139 Vitals shown include unvalidated device data. Post Anesthesia Patient Status Patient Evaluation: bedside. Anticipated Disposition: phase 2 then home. Neurological Status: aware and responsive. Pulmonary Status: breathing comfortably on room air Airway Control: returned to baseline unsupported. Cardiovascular Status: stable. Pain Management: clinically adequate Postoperative Hydration: acceptable. Intraoperative Events: no significant anesthesia events Post Operative Nausea/Vomiting Status: no significant post operative nausea or vomiting Recommendation: continue current plan of care. Anesthesia Observations No Documentation SIGNATURE: Angie Lloyd MD PATIENT NAME: Chuckie Villalta DATE: December 11, 2022 TIME: 12:57 PM CSN: [id number] Normal [facility] ANES PRE-OPon 12-11-2022 ANES PRE-OP HNO ID: [id number] Author: Angie Lloyd MD Service: ? Author Type: Anesthesiologist Type: Anesthesia Preprocedure Evaluation Filed: 12/11/2022 9:22 AM Note Text: ANESTHESIOLOGY DAY OF SURGERY NOTE : 1985 Procedure Information Date/Time: 12/11/22 0800 Scheduled providers: Betina Quezada MD Procedure: ERCP Location: Gastroenterology Estimated body mass index is 28.48 kg/m? as calculated from the following: Height as of 09/04/22: 182.9 cm (6'). Weight as of 09/04/22: 95.3 kg (210 lb). Most recent hematocrit and potassium results: Hematocrit 37.4 09/05/2022 Potassium 3.8 09/05/2022 Potassium (POCT) 4.9 07/05/2021 Relevant Problems CARDIO (+) Primary hypertension -RENAL (+) YOAN (acute kidney injury) (HCC) (+) Acute rejection of liver transplant (HCC) I - PHYSICAL EVALUATION AIRWAY Patient intubated: No. Tracheostomy tube not present Mallampati: II. TM distance: >3 FB. Neck ROM: full ROM without neurological symptoms. Mouth opening: adequate. Short neck: no. Thick neck: no DENTAL Dental findings: teeth intact. II - ANESTHESIA PLAN ASA Score: 3 Anesthetic Plan: general Airway type: ETT The patient is not a current smoker. NPO Status: adequate Beta Yazan Monitoring Plan Monitoring plan: standard ASA. Post Procedure Analgesic Plan Postoperative analgesic plan: multimodal analgesia. Informed Consent Anesthetic risks, benefits, alternatives, personnel and consent discussed: yes. Patient / Responsible Libertarian agrees to proceed: yes Patient / Surrogate agrees to blood products: Yes DNR status not reviewed with patient and/or family prior to surgery. Significant changes in the patient condition since the History and Physical, not otherwise documented in primary service progress note: no. Potential Anesthesia issues that may suggest increased risk of complications or contraindication to planned procedure: none. No vitals data found for the desired time range. Outpatient Medications as of 12/11/2022 Medication Sig - tacrolimus IR (PROGRAF) 1 mg capsule Take 2 capsules by mouth twice daily. - iv contrast (will be provided with radiology test) CT ABD W -Inject, intravenously, once for 1 dose.No IV access, insert saline lock prior to the beginning of sedation, infusion, injection of imaging exam. Discontinue saline lock post exam. If Pt. has a central line or IVAD, may access for administration according to line specific nursing protocol. Once exam is complete flush line and de-access according to line specific nursing protocol in the CT contrast administration guidelines link. - enteric contrast (will be provided with radiology test) For CT ABD W IVCON order Administer, As Directed One Time Only, via Oral, Rectal, both Oral and Rectal, Enteric Tube, Stoma or Indwelling Catheter, Enteric Contrast as designated per enteric contrast guidelines - carvedilol (COREG) 12.5 mg tablet Take 1 tablet by mouth twice daily. - pantoprazole DR (PROTONIX) 40 mg tablet Take 1 tablet by mouth DAILY (6 AM). - magnesium oxide (MAG-OX) 400 mg (241.3 mg magnesium) tablet Take 1 tablet by mouth twice daily. - amLODIPine (NORVASC) 10 mg tablet TAKE 1 TABLET BY MOUTH ONCE DAILY. (Patient taking differently: Take 10 mg by mouth once daily.) No current facility-administered medications on file as of 12/11/2022. I have interviewed and examined the patient. I have reviewed the medical record and/or the pre-anesthesia evaluation, pertinent labs, and test results. This contains updated information obtained within 48 hours of Surgery/Procedure. SIGNATURE: Angie Lloyd MD PATIENT NAME: Chuckie Villalta DATE: December 11, 2022 TIME: 9:21 AM CSN: [id number] Normal [facility] NURSING PROGon 12-11-2022 NURSING PROG HNO ID: [id number] Author: Aicha Bragg RN Service: ? Author Type: Registered Nurse Type: Nursing Progress Note Filed: 12/11/2022 11:15 AM Note Text: AMBULATORY PATIENT EDUCATION NOTE TOPIC: GI PROCEDURES: Endoscopic Retrograde CholangioPancreatograph y(ERCP) with or without biopsy,stenting,dilatio n and/or treatment READINESS TO LEARN INSTRUCTION PROVIDED TO: Patient, readness to learn accessed prior to procedure and Patient and family member COGNITIVE ABILITY: Alert and oriented PTED MOTIVATION TO LEARN: Eager Interested FAMILY SUPPORT: High - Very involved in pt care IPATIENT LEARNS BEST BY: Individual Instruction Verbal Instruction FACTORS AFFECTING LEARNING: None PHYSICAL LIMITATIONS AFFECTING LEARNING: None LEARNING RESPONSE METHOD OF INSTRUCTION: Individual instruction PATIENT / FAMILY RESPONSE: Verbalizes understanding of: WORSENING CONDITION-Signs and symptoms of a worsening condition that warrant a call to the physician FOLLOW-UP PLAN: Complete - No need for follow-up Patient instructed to call with any further issues Recommend - Recommend continued instruction and follow up as directed Contact information given. SUPPLEMENTAL MATERIAL: Procedure Discharge Instructions REFERRAL (RECOMMENDATION): None Electronically Signed By: Aicha Bragg RN [facility] NURSING PROG HNO ID: [id number] Author: Tatiana Ray RN Service: Nursing Author Type: Registered Nurse Type: Nursing Progress Note Filed: 12/11/2022 9:21 AM Note Text: PRE OP LEARNING ASSESSMENT PROCEDURE/SURGERY: GI PROCEDURES: ERCP READINESS TO LEARN COGNITIVE ABILITY: Alert and oriented MOTIVATION TO LEARN: Eager FAMILY SUPPORT: Moderate - Family present but overwhelmed PATIENT LEARNS BEST BY: Individual Instruction FACTORS AFFECTING LEARNING: None PHYSICAL LIMITATIONS AFFECTING LEARNING: None Electronically Signed By: Tatiana Ray RN In Department: GASTROENTEROLOGY [facility] 11-04-2022 [facility] Telephone ([facility]) CHUCKIE VILLALTA ([id number]) 1985 M TRN Date Time Provider Department 11/04/22 CHELSEY CLEMENS [facility] During your visit today, we recorded the following information about you: Chelsey FaustinSHAQ priest 11/04/2022 11:06 AM Signed SW attempted to contact the patient to discuss the [facility] clinic. SW left a VM and requested a return phone. Chelsey ClemensSHAQ November 04, 2022 11:06 AM Allergies As of Date: 11/04/2022 Noted Allergy Reaction PENICILLINS 16 - Unknown Comments: Skin test positive 09/01/18 MIDAZOLAM 02/18/2021 14 - Other: See Comments SEASONAL ALLERGIES 06/29/2018 16 - Unknown Date Reviewed: 09/04/2022 Reviewed by: Tova Wilson RN - Fully Assessed Reason for Visit: Care Coordination [8759] Cmt: [facility] clinic Prescriptions as of 11/04/2022 - tacrolimus IR (PROGRAF) 1 mg capsule Take 2 capsules by mouth twice daily. - iv contrast (will be provided with radiology test) CT ABD W -Inject, intravenously, once for 1 dose.No IV access, insert saline lock prior to the beginning of sedation, infusion, injection of imaging exam. Discontinue saline lock post exam. If Pt. has a central line or IVAD, may access for administration according to line specific nursing protocol. Once exam is complete flush line and de-access according to line specific nursing protocol in the CT contrast administration guidelines link. - enteric contrast (will be provided with radiology test) For CT ABD W IVCON order Administer, As Directed One Time Only, via Oral, Rectal, both Oral and Rectal, Enteric Tube, Stoma or Indwelling Catheter, Enteric Contrast as designated per enteric contrast guidelines - carvedilol (COREG) 12.5 mg tablet Take 1 tablet by mouth twice daily. - pantoprazole DR (PROTONIX) 40 mg tablet Take 1 tablet by mouth DAILY (6 AM). - magnesium oxide (MAG-OX) 400 mg (241.3 mg magnesium) tablet Take 1 tablet by mouth twice daily. - amLODIPine (NORVASC) 10 mg tablet TAKE 1 TABLET BY MOUTH ONCE DAILY. Problem List As Of Date 11/04/2022 Noted Resolved Hemochromatosis [E83.119] 03/18/2018 Cellulitis [L03.90] 07/13/2018 Obesity, Class I, BMI 30-34.9 [E66.9] 07/14/2018 Severe protein-calorie malnutrition (HCC) [E43] 07/14/2018 Drug reaction [T50.905A] 09/01/2018 Seasonal allergic rhinitis due to pollen [J30.1]09/01/2018 Hepatic cirrhosis (HCC) [K74.60] 05/20/2019 08/03/2019 Liver transplant recipient (HCC) [Z94.4] 07/10/2019 Respiratory failure, post-operative (HCC) [J95.*07/11/2019 07/12/2019 Postoperative anemia [D64.9] 07/11/2019 Coagulopathy (HCC) [D68.9] 07/11/2019 08/03/2019 Acute pain [R52] 07/11/2019 08/03/2019 Elevated blood-pressure reading without diagnos*07/13/2019 Immunosuppressive management encounter followin*07/15/2019 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.*07/19/2019 Acute abdominal pain [R10.9] 07/21/2019 08/03/2019 Peritonitis (HCC) [K65.9] 07/25/2019 08/03/2019 Acute pancreatitis [K85.90] 07/05/2021 YOAN (acute kidney injury) (HCC) [N17.9] 07/05/2021 Hypomagnesemia [E83.42] 07/05/2021 Pancreatitis [K85.90] 07/05/2021 Primary hypertension [I10] 07/05/2021 Necrotizing pancreatitis [K85.91] 10/30/2021 Acute pancreatitis without infection or necrosi*09/01/2022 Encounter Status:Closed by CHELSEY CLEMENS on 11/04/22 [facility] 09-22-2022 [facility] Telephone ([facility]) CHUCKIE VILLALTA ([id number]) 1985 M TRN Date Time Provider Department 09/22/22 RASHIDA LIRIANO GAST[facility] During your visit today, we recorded the following information about you: Rashida Liriano RN 09/22/2022 11:33 AM Signed Called and left patient regarding referral to [facility] clinic. Call back number provided. [employer] message with the details also sent. Rashida Liriano RN September 22, 2022 11:32 AM Allergies As of Date: 09/22/2022 Noted Allergy Reaction PENICILLINS 16 - Unknown Comments: Skin test positive 09/01/18 MIDAZOLAM 02/18/2021 14 - Other: See Comments SEASONAL ALLERGIES 06/29/2018 16 - Unknown Date Reviewed: 09/04/2022 Reviewed by: Tova Wilson RN - Fully Assessed Reason for Visit: Care Coordination [4053] Cmt: [facility] clinic Prescriptions as of 09/22/2022 - tacrolimus IR (PROGRAF) 1 mg capsule Take 2 capsules by mouth twice daily. - iv contrast (will be provided with radiology test) CT ABD W -Inject, intravenously, once for 1 dose.No IV access, insert saline lock prior to the beginning of sedation, infusion, injection of imaging exam. Discontinue saline lock post exam. If Pt. has a central line or IVAD, may access for administration according to line specific nursing protocol. Once exam is complete flush line and de-access according to line specific nursing protocol in the CT contrast administration guidelines link. - enteric contrast (will be provided with radiology test) For CT ABD W IVCON order Administer, As Directed One Time Only, via Oral, Rectal, both Oral and Rectal, Enteric Tube, Stoma or Indwelling Catheter, Enteric Contrast as designated per enteric contrast guidelines - carvedilol (COREG) 12.5 mg tablet Take 1 tablet by mouth twice daily. - pantoprazole DR (PROTONIX) 40 mg tablet Take 1 tablet by mouth DAILY (6 AM). - magnesium oxide (MAG-OX) 400 mg (241.3 mg magnesium) tablet Take 1 tablet by mouth twice daily. - amLODIPine (NORVASC) 10 mg tablet TAKE 1 TABLET BY MOUTH ONCE DAILY. Problem List As Of Date 09/22/2022 Noted Resolved Hemochromatosis [E83.119] 03/18/2018 Cellulitis [L03.90] 07/13/2018 Obesity, Class I, BMI 30-34.9 [E66.9] 07/14/2018 Severe protein-calorie malnutrition (HCC) [E43] 07/14/2018 Drug reaction [T50.905A] 09/01/2018 Seasonal allergic rhinitis due to pollen [J30.1]09/01/2018 Hepatic cirrhosis (HCC) [K74.60] 05/20/2019 08/03/2019 Liver transplant recipient (HCC) [Z94.4] 07/10/2019 Respiratory failure, post-operative (HCC) [J95.*07/11/2019 07/12/2019 Postoperative anemia [D64.9] 07/11/2019 Coagulopathy (HCC) [D68.9] 07/11/2019 08/03/2019 Acute pain [R52] 07/11/2019 08/03/2019 Elevated blood-pressure reading without diagnos*07/13/2019 Immunosuppressive management encounter followin*07/15/2019 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.*07/19/2019 Acute abdominal pain [R10.9] 07/21/2019 08/03/2019 Peritonitis (HCC) [K65.9] 07/25/2019 08/03/2019 Acute pancreatitis [K85.90] 07/05/2021 YOAN (acute kidney injury) (HCC) [N17.9] 07/05/2021 Hypomagnesemia [E83.42] 07/05/2021 Pancreatitis [K85.90] 07/05/2021 Primary hypertension [I10] 07/05/2021 Necrotizing pancreatitis [K85.91] 10/30/2021 Acute pancreatitis without infection or necrosi*09/01/2022 Encounter Status:Closed by RASHIDA LIRIANO on 09/22/22 [facility] CASE MANAGEMon 09-05-2022 CASE MANAGEM HNO ID: [id number] Author: JEY Felton Service: ? Author Type: Automotive Refinisher Type: Care Mgt Progress Note Filed: 09/05/2022 9:37 AM Note Text: CARE MANAGEMENT PROGRESS NOTE SERVICE DATE: 09/05/2022 SERVICE TIME: 9:30 AM LOS: 4 days Needs Prior to Discharge: To Be Determined This patient has been screened for Care Management Transitional Planning Services. At this time, it does not appear this patient will require transition planning services. Should this change, and the patient require transition planning services during this admission, please contact Case Management. *DEONDRE NOVA provided Pt with a packet of community resources for alcohol abuse per medical team request, Pt accepted these resources at this time. DEONDRE NOVA also provided Pt with the aa.org website for him to find local and virtual AA meetings in his area. DEONDRE NOVA encouraged Pt to reach back out to DEONDRE NOVA with any questions and/or concerns regarding community resources for alcohol abuse prior to his D/C from the hospital if needed* For weekend CM needs, please contact on-call CM at: G Building - [address] H Building - [address] J Building - [address] M Building - [address] SIGNATURE: Delilah Hightower MANAGER TRAINEE, REAL ESTATE OFFICER PATIENT NAME: Chuckie Villalta DATE: September 05, 2022 TIME: 9:30 AM PAGER/CONTACT #: Normal [facility] CBC panel Auto (Bld)on 09-05 Erythrocyte distribution width (RBC) [Ratio] 17.1 % High 11.5-15.0 [facility] Comment on above: Order Comment: Speci men Type: BLOOD SPECIMEN Ordering Facility: [facility] Address: [address] [place] [address] Performed By: #### 5 763-8, COPPER #### [facility] CLIA [id number] [address] [place] [address] [place] Hematocrit (Bld) [Volume fraction] 37.4 % Low 39.0-51.0 [facility] Comment on above: Order Comment: Speci men Type: BLOOD SPECIMEN Ordering Facility: [facility] Address: [address] [place] [address] Performed By: #### 5 763-8, COPPER #### [facility] CLIA [id number] [address] [place] [address] [place] Hemoglobin (Bld) [Mass/Vol] 12.8 g/dL Low 13.0-17.0 [facility] Comment on above: Order Comment: Speci men Type: BLOOD SPECIMEN Ordering Facility: [facility] Address: [address] [place] [address] Performed By: #### 5 763-8, COPPER #### [facility] CLIA [id number] [address] [place] [address] [place] MCH (RBC) [Entitic mass] 30.3 pg Normal 26.0-34.0 [facility] Comment on above: Order Comment: Speci men Type: BLOOD SPECIMEN Ordering Facility: [facility] Address: [address] [place] [address] Performed By: #### 5 763-8, COPPER #### [facility] CLIA [id number] [address] [place] [address] [place] MCHC (RBC) [Mass/Vol] 34.2 g/dL Normal 30.5-36.0 [facility] Comment on above: Order Comment: Speci men Type: BLOOD SPECIMEN Ordering Facility: [facility] Address: [address] [place] [address] Performed By: #### 5 763-8, COPPER #### [facility] CLIA [id number] [address] [place] [address] [place] MCV (RBC) [Entitic vol] 88.4 fL Normal 80.0-100.0 [facility] Comment on above: Order Comment: Speci men Type: BLOOD SPECIMEN Ordering Facility: [facility] Address: [address] [place], [place] [id number] Performed By: #### 5 763-8, COPPER #### [facility] CLIA [id number] [address] [place] [address] [place] Nucleated RBC (Bld) [#/Vol] 10*3/uL Normal <0.01 [facility] Comment on above: Order Comment: Speci men Type: BLOOD SPECIMEN Ordering Facility: [facility] Address: [address] [place], [place] [address] Performed By: #### 5 763-8, COPPER #### [facility] CLIA [id number] [address] [place] [address] [place] Platelet mean volume (Bld) [Entitic vol] 12.6 fL Normal 9.0-12.7 [facility] Comment on above: Order Comment: Speci men Type: BLOOD SPECIMEN Ordering Facility: [facility] Address: [address] [place], [place] [address] Performed By: #### 5 763-8, COPPER #### [facility] CLIA [id number] [facility] [place] [address] [place] Platelets (Bld) [#/Vol] 61 10*3/uL Low 150-400 [facility] Comment on above: Order Comment: Speci men Type: BLOOD SPECIMEN Ordering Facility: [facility] Address: [address] [place], [place] [id number] Result Comment: Resu lts checked and verified.No clot detected. Performed By: #### 5 763-8, COPPER #### [facility] CLIA [id number] [address] [place] [address] [place] RBC (Bld) [#/Vol] 4.23 10*6/uL Normal 4.20-6.00 [facility] Comment on above: Order Comment: Speci men Type: BLOOD SPECIMEN Ordering Facility: [facility] Address: [address] [place], [place] [address] Performed By: #### 5 763-8, COPPER #### [facility] CLIA [id number] [address] [place] [address] [place] WBC (Bld) [#/Vol] 4.92 10*3/uL Normal 3.70-11.00 [facility] Comment on above: Order Comment: Speci men Type: BLOOD SPECIMEN Ordering Facility: [facility] Address: [address] [place], [place] [address] Performed By: #### 5 763-8, COPPER #### [facility] CLIA [id number] [facility] [place] [address] [place] CNDSon 09-05-2022 CNDS HNO ID: [id number] Author: Minna Dwyer MD Service: General Internal Medicine Author Type: Physician Type: Discharge Summary Filed: 09/05/2022 1:44 PM Note Text: DISCHARGE SUMMARY PATIENT NAME: Chuckie Villalta ADMISSION DATE: 08/31/2022 DISCHARGE DATE: 09/05/2022 ATTENDING PHYSICIAN: Minna Dwyer MD Code Status: Full Code PCP: Luis Abdalla DO Highest Readmission Risk Score: 18 The 30 day readmissions risk score is derived from an internally validated risk model which evaluates patient level characteristics, utilization history, medication orders and lab results up until the day of discharge. Patients with a score of 40 or above are considered highest risk for readmission. Specific patient level drivers will be listed at the bottom of the summary. TRANSITIONS OF CARE CRITICAL ISSUES: HERR MEDICATION CHANGES: STOP bactrim LABS AND PROCEDURES PENDING AT DISCHARGE: Test Results Not Yet Available from This Hospitalization: Please Review at Your Follow Up Appointment Order Current Status HEP DELTA AB In process HEPATITIS E VIRUS AB In process PHOSPHATIDYLETHANOL (PETH) In process TACROLIMUS/FK-506 BL In process VITAMIN B6/PYRIDOXIN In process FOLLOW UP: Future Appointments Date Time Provider Department Center 09/16/2022 3:55 PM Genevieve Burton PA-C [facility] [address] [facility] REASON FOR HOSPITALIZATION: abdominal pain, nausea/vomiting, diarrhea PRINCIPAL DIAGNOSIS: Acute pancreatitis Alcoholic hepatitis SECONDARY DIAGNOSIS: Principal Problem: Acute pancreatitis without infection or necrosis POA: Yes Active Problems: Liver transplant recipient (HCC) POA: Yes Immunosuppressive management encounter following liver transplant (HCC) POA: Yes Acute pancreatitis POA: Yes YOAN (acute kidney injury) (HCC) POA: Yes Primary hypertension POA: Yes Resolved Problems: * No resolved hospital problems. 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 Pt presented to ED with abdominal pain found to have acute appendicitis Problem List Principal Problem: Acute pancreatitis without infection or necrosis POA: Yes Active Problems: Liver transplant recipient (HCC) POA: Yes Immunosuppressive management encounter following liver transplant (HCC) POA: Yes Acute pancreatitis POA: Yes YOAN (acute kidney injury) (HCC) POA: Yes Primary hypertension POA: Yes Resolved Problems: * No resolved hospital problems. * Acute pancreatitis Lactic acidosis BISAP score of 1 (presuming no pleural effusion) Secondary to alcohol use? Check drug screen Patient with recent necrotizing pancreatitis in October required cystogastrostomy stent placement. Triglyceride 190 last June S/p cholecystectomy Lactate improved PLAN: -Educated the patient about importance of abstinence from alcohol, SW provided information/resources Elevated bilirubin, improving Transaminitis, improving Thrombocytopenia Less likely rejection Secondary to dehydration and pancreatitis? Fraction bili: predominantly conjugated US RUQ - stable mild intrahepatic biliary duct dilation similar to 10/2021 US liver vasc neg Neg HIV, EBV Igm, CMV DNA, HCV RNA, VZV IgM Neg hepatitis panel (acute and remote) Neg LENNY, ASMA, AMA, A1AT Ceruloplasmin, Cu, folate, vit B12, wnl Low iron 26 LDH, hapto, fibrinogen, coag panel unremarkable s/p 2u platelet transfusion 09/03 Low zinc s/p ERCP 09/04 w/ gastric stent (axios) removal, biliary stricture noted and stent placement in R hepatic duct IR liver biopsy-prelim: No evidence of ACR or chronic rejection; no evidence of bile duct injury or portal vein injury. Changes appear to be most c/w alcoholic hepatitis with severe reactivity. Liver parenchyma with reactive/regenerative change and focal portal change, indeterminate for T-cell mediated rejection (acute cellular rejection). -Hepatology consulted, appreciate rec: Hep E AND D abs, PETH -hematology consulted, appreciate rec: vit b6 -repeat ERCP in 3 months Acute kidney injury, resolved Likely secondary to pancreatitis and dehydration Liver transplant -cont tacro -dc bactrim Hypertensive urgency Patient was not taking his p.o. medications, worsened by acute distress -P.o. medications Leukocytosis, resolved Sepsis ruled out Lactic acid quickly improved Likely reactive from pancreatitis w/ dehydration Reactive? blood cultures 2/5 NGTD x1d Diarrhea, none this admission OPERATIONS/PROCEDURE DURING THIS HOSPITALIZATION: Procedure(s) (LRB): PERCUTANEOUS NEEDLE BIOPSY OF LIVER (N/A) US IMAGING GUIDED BIOPSY LIVER US DOPPLER COM (more content not included)... Normal [facility] Comprehensive metabolic 2000 panelon 09-05-2022 Albumin [Mass/Vol] 3.8 g/dL Low 3.9-4.9 [facility] Comment on above: Order Comment: Speci men Type: BLOOD SPECIMENOrdering Facility: [facility] Address: [address] [place] [address] Performed By: #### 2 4323-8 ####[facility] [id number] [place] [address] [place] ALP [Catalytic activity/Vol] 94 U/L Normal 38-113 [facility] Comment on above: Order Comment: Speci men Type: BLOOD SPECIMENOrdering Facility: [facility] Address: [address] [place] [address] Performed By: #### 2 4323-8 ####[facility] [id number] [place] [address] [place] ALT [Catalytic activity/Vol] 101 U/L High 10-54 [facility] Comment on above: Order Comment: Speci men Type: BLOOD SPECIMENOrdering Facility: [facility] Address: [address] [place] [address] Performed By: #### 2 4323-8 ####[facility] [id number] [place] [address] [place] Anion gap [Moles/Vol] 11 mmol/L Normal 9-18 [facility] Comment on above: Order Comment: Speci men Type: BLOOD SPECIMENOrdering Facility: [facility] Address: [address] [place] [address] Performed By: #### 2 4323-8 ####[facility] [id number] [place] [address] [place] AST [Catalytic activity/Vol] 75 U/L High 14-40 [facility] Comment on above: Order Comment: Speci men Type: BLOOD SPECIMENOrdering Facility: [facility] Address: [address] Performed By: #### 2 4323-8 ####[facility] [id number] [place] [address] [place] Bilirubin [Mass/Vol] 1.8 mg/dL High 0.2-1.3 [facility] Comment on above: Order Comment: Speci men Type: BLOOD SPECIMENOrdering Facility: [facility] Address: [address] Performed By: #### 2 4323-8 ####[facility] [id number] [place] [address] [place] Calcium [Mass/Vol] 9.6 mg/dL Normal 8.5-10.2 [facility] Comment on above: Order Comment: Speci men Type: BLOOD SPECIMENOrdering Facility: [facility] Address: [address] [place], [place] [address] Performed By: #### 2 4323-8 ####[facility] [id number] [place] [address] [place] Chloride [Moles/Vol] 102 mmol/L Normal 97-105 [facility] Comment on above: Order Comment: Speci men Type: BLOOD SPECIMENOrdering Facility: [facility] Address: [address] [place], [place] [id number] Performed By: #### 2 4323-8 ####[facility] [id number] [place] [address] [place] CO2 [Moles/Vol] 23 mmol/L Normal 22-30 [facility] Comment on above: Order Comment: Speci men Type: BLOOD SPECIMENOrdering Facility: [facility] Address: [address] Performed By: #### 2 4323-8 ####[facility]IA [id number] [place] OF [facility] Creatinine [Mass/Vol] 1.16 mg/dL Normal 0.73-1.22 [facility] Comment on above: Order Comment: [place]e [place] Type: BLOOD SPECIMENOrdering Facility: [facility] Address: [address] [address] Performed By: #### 2 4323-8 ####[facility]IA [id number] [address] ESTIMATED GLOMERULAR FILTRATION RATE 84 mL/min/1.73m??? Normal >=60 [facility] Comment on above: Order Comment: Noe [place] Type: BLOOD SPECIMENOrdering Facility: [facility] Address: [address] [address] Result Comment: Brenda mated Glomerular Filtration Rate (eGFR) is calculated using the 2020 CKD-EPI creatinine equation. This equation utilizes serum creatinine, sex, and age as parameters. The creatinine assay has traceable calibration to isotope dilution-mass spectrometry. Refer to KDIGO guidelines for clinical interpretation. In patients with unstable renal function, e.g. those with acute kidney injury, the eGFR may not accurately reflect actual GFR. Performed By: #### 2 4323-8 ####[facility] [id number] [place] [address] [place] Glucose [Mass/Vol] 170 mg/dL High 74-99 [facility] Comment on above: Order Comment: [place]e [place] Type: BLOOD SPECIMENOrdering Facility: [facility] Address: [address] [address] Result Comment: The [place] Diabetes Association (ADA) provides guidance for cutoff values for fasting glucose and random glucose. The ADA defines fasting as no caloric intake for at least 8 hours. Fasting plasma glucose results between 100 to 125 mg/dL indicate increased risk for diabetes (prediabetes). Fasting plasma glucose results greater than or equal to 126 mg/dL meet the criteria for diagnosis of diabetes. In the absence of unequivocal hyperglycemia, results should be confirmed by repeat testing. In a patient with classic symptoms of hyperglycemia or hyperglycemic crisis, random plasma glucose results greater than or equal to 200 mg/dL meet the criteria for diagnosis of diabetes. Reference: Standards of Medical Care in Diabetes 2016, [place] [employer] Association. Diabetes Care. 2016.39(Suppl 1). Performed By: #### 2 4323-8 ####[facility] [id number] [place] [address] [place] Potassium [Moles/Vol] 3.8 mmol/L Normal 3.7-5.1 [facility] Comment on above: Order Comment: Speci men Type: BLOOD SPECIMENOrdering Facility: [facility] Address: [address] [address] Performed By: #### 2 4323-8 ####[facility] [id number] [place] [address] [place] Protein [Mass/Vol] 6.8 g/dL Normal 6.3-8.0 [facility] Comment on above: Order Comment: Speci men Type: BLOOD SPECIMENOrdering Facility: [facility] Address: [address] Performed By: #### 2 4323-8 ####[facility] [id number] [place] [address] [place] Sodium [Moles/Vol] 136 mmol/L Normal 136-144 [facility] Comment on above: Order Comment: Speci men Type: BLOOD SPECIMENOrdering Facility: [facility] Address: [address] [place] [address] Performed By: #### 2 4323-8 ####[facility] [id number] [place] [address] [place] Urea nitrogen [Mass/Vol] 11 mg/dL Normal 9-24 [facility] Comment on above: Order Comment: Speci men Type: BLOOD SPECIMENOrdering Facility: [facility] Address: [address] Performed By: #### 2 4323-8 ####[facility]CLIA [id number] [facility] [address] [address] [place] NUTRITIONon 09-05-2022 NUTRITION HNO ID: [id number] Author: Gifty Arnold RD Service: Nutrition Therapy Author Type: Registered Dietitian Type: Nutrition Filed: 09/05/2022 1:39 PM Note Text: NUTRITION THERAPY INITIAL ASSESSMENT SERVICE DATE: 09/05/2022 SERVICE TIME: 10:50 am Nutrition Assessment: Recommended Malnutrition Diagnosis: No Malnutrition Identified Nutrition Diagnosis: Problem: Suboptimal protein/energy intake Related to: Unknown etiology As evidenced by: Medical condition, Intake records Estimated kilocalorie needs: 9045-3147 Calorie Calculation Method: 20-25 kcals/kg Estimated protein needs (grams): 95-114 Grams protein determined by: 1.0 - 1.2 g/kg Care Plan: Continue current diet fiber controlled Please document all meal intakes to accurately assess energy intake. Supplements: Ensure Max (150 kcal, 30 g protein each), Ensure Enlive (350 kcal, 20 g protein each) Vitamins and Minerals: Multivitamin with minerals Medications: (bowel regimen as needed to promote regular bowel movements) Labs: Vitamin A, Vitamin D (start supplement if low) Monitor and Evaluation: Monitor bowel function, Meet greater than 75% of estimated needs Discharge Recommendations: Diet;Oral Supplements Diet: Resume pre hospital diet Oral Supplements: as needed when intakes are suboptimal HPI: I have confirmed and edited as necessary the HPI obtained by Minna Dwyer MD on 09/04/2022 and all reflect current status. 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 Pt presented to ED with abdominal pain found to have acute appendicitis Intake History: Nutrition Intake Prior to Admission: Greater than 75% estimated energy needs Current Nutrition Intake: Less than 75% estimated energy needs Current Intake Over time: (since admit, NPO frequenty. Intakes improving per patient. 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 Consumes 3 meals daily at home. Denies use of MVI or oral supplements. Denies weight loss. Diet advanced yesterday. Tolerating oral intake. Likes strawberry oral supplements. Updated ONS per preferences. Decreased oral intake since admit however patient frequently made NPO. Answered all questions. Diet Orders (From admission, onward) Start Ordered 09/05/22 1330 SUPPLEMENT/SNACK PROVIDED START NOW Question Answer Comment Supplement 1 (19 years and up) ENSURE ENLIVE VANILLA Supplement 1 Frequency DINNER Supplement 2 (19 years and up) ENSURE MAX VANILLA Supplement 2 Frequency BREAKFAST 09/05/22 1329 09/04/22 1130 DIET GASTRO INTESTINAL START NOW Question: Gastro Intestinal Answer: FIBER CONTROLLED 09/04/22 1122 Anthropometrics: Height: 182.9 cm (6') Weight: 95.3 kg (210 lb) Dosing Weight: 95.3 kg (210 lb 1.6 oz) Usual Weight: (210-215 lb) Usual Weight Obtained From: Chart Review Body mass index is 28.48 kg/m?. Overweight Weight change percentage over time: stable. Patient denies recent weight loss. Physical Exam: Well appearing. Subcutaneous fat loss: No fat loss Muscle loss: No muscle loss Potential micronutrient deficiency: No deficiency identified Edema/Ascites: No edema GI Symptoms: None (no documented bowel movement) Functional Status: Not related to malnutrition status Potential Signs of Inflammation: Hypoalbuminemia, Hyperglycemia MNT Billing: $ Initial Assessment: 1-15 minutes SIGNATURE: Gifty Arnold RD PATIENT NAME: Chuckie Villalta DATE: September 05, 2022 TIME: 1:35 PM Normal [facility] PT panel Coag (PPP)on 2022 INR Coag (PPP) [Relative time] 1.0 {INR} Normal 0.9-1.3 [facility] Comment on above: Order Comment: Speci men Type: BLOOD SPECIMEN Ordering Facility: [facility] Address: [place] [address] Result Comment: Aster min K Antagonist (VKA) Therapeutic Range: INR 2 to 3 (Target INR of 2.5) Note: For patients treated with VKA drugs, such as warfarin, the [place] [employer] 2012 Guideline recommends a therapeutic INR range of 2 to 3 (target INR of 2.5). This recommendation includes high-risk patients with antiphospholipid syndrome with previous arterial or venous thromboembolism, current-generation mechanical or bioprosthetic aortic heart valve replacement. Note: Patients with mechanical aortic valve replacement and additional risk factors for thromboembolic events (atrial fibrillation, previous thromboembolism, LV dysfunction, hypercoagulable conditions) or an older generation mechanical AVR (i.e., ball in-Cage) or any mechanical MVR should have a INR therapeutic range of 2.5 to 3.5 (target INR of 3). Scotty GH, et al. Chest 2012, 141:7S-47S Goldie RA, et al. [facility] 2017, 70: 252-289 Performed By: #### V ITB6 #### [facility] [employer] CLIA [id number] [address] [place] [address] PT Coag (PPP) [Time] 10.8 s Normal 9.7-13.0 [facility] Comment on above: Order Comment: [place]e [place] Type: BLOOD SPECIMEN Ordering [facility] Address: [address] [address] Performed By: #### V ITB6 #### [facility] CLIA [id number] [address] [place] [address] Tacrolimus Bld-[facility] 2022 Tacrolimus (Bld) [Mass/Vol] 8.4 ng/mL Normal 5.0-20.0 [facility] Comment on above: Order Comment: [place]e [place] Type: BLOOD SPECIMEN Ordering Facility: [facility] Address: [address] [place] [address] Result Comment: Nannette vidualized target levels for a given patient will depend on many factors (including the type of organ transplant, time since transplantation, concurrent medications, and other clinical factors), and should be assessed by those health care providers experienced in the management of immunosuppression. Reference ranges and high/low indicator flags are provided as general guidelines only. The treating physician must determine appropriate target levels/dosing based on the specific clinical situation. Test performed by chemiluminescent immunoassay using [employer] i. Performed By: #### 2 4323-8 #### [facility] CLIA [id number] [facility] ANES POSTPROC EVALon 023 ANES POSTPROC EVAL HNO ID: [id number] Author: Lucas Moseley MD Service: ? Author Type: Anesthesiologist Type: Anesthesia Postprocedure Evaluation Filed: 09/04/2022 11:10 AM Note Text: POST ANESTHESIA EVALUATION NOTE : 1985 Procedure Summary Date: 09/04/22 Room / Location: Gastroenterology Anesthesia Start: 0851 Anesthesia Stop: 1018 Procedure: EGD DIAGNOSTIC Diagnosis: (Stent removal) Scheduled Providers: Betina Quezada MD; Lucas Moseley MD; Suzie Knott APRN.AREA CLEANER Responsible Provider: Lucas Moseley MD Anesthesia Type: general ASA Status: 3 Anesthesia Type: general Airway Type: supplemental O2 Last Vitals Vitals Value Taken Time BP 150/91 09/04/22 1100 Temp 36.2 ?C (97.2 ?F) 09/04/22 1018 Pulse 77 09/04/22 1108 Resp 18 09/04/22 1100 SpO2 93 % 09/04/22 1108 Vitals shown include unvalidated device data. Post Anesthesia Patient Status Patient Evaluation: bedside. Neurological Status: aware and responsive. Pulmonary Status: breathing comfortably on supplemental oxygen Airway Control: returned to baseline unsupported. Cardiovascular Status: stable. Pain Management: clinically adequate Postoperative Hydration: acceptable. Intraoperative Events: no significant anesthesia events Post Operative Nausea/Vomiting Status: no significant post operative nausea or vomiting Recommendation: continue current plan of care. Anesthesia Observations No Documentation SIGNATURE: Lucas Moseley MD PATIENT NAME: Chuckie Villalta DATE: September 04, 2022 TIME: 11:10 AM CSN: [id number] Normal [facility] ANES PRE-OPon 09-04-2022 ANES PRE-OP HNO ID: [id number] Author: Lucas Moseley MD Service: ? Author Type: Anesthesiologist Type: Anesthesia Preprocedure Evaluation Filed: 09/04/2022 8:14 AM Note Text: ANESTHESIOLOGY DAY OF SURGERY NOTE : 1985 Procedure Information Date/Time: 09/04/22 1300 Scheduled providers: Betina Quezada MD; Lucas Moseley MD; Suzie nKott APRN.AREA CLEANER Procedure: EGD DIAGNOSTIC Location: Gastroenterology Estimated body mass index is 28.48 kg/m? as calculated from the following: Height as of this encounter: 182.9 cm (6'). Weight as of this encounter: 95.3 kg (210 lb). Most recent hematocrit and potassium results: Hematocrit 36.1 09/04/2022 Potassium 4.1 09/04/2022 Potassium (POCT) 4.9 07/05/2021 Relevant Problems CARDIO (+) Primary hypertension -RENAL (+) YOAN (acute kidney injury) (HCC) (+) Acute rejection of liver transplant (HCC) I - PHYSICAL EVALUATION AIRWAY Patient intubated: No. Tracheostomy tube not present Mallampati: III. TM distance: >3 FB. Neck ROM: full ROM without neurological symptoms. Mouth opening: adequate. Short neck: no. Thick neck: no II - ANESTHESIA PLAN ASA Score: 3 Anesthetic Plan: general Airway type: supplemental O2 NPO Status: adequate Beta Yazan Monitoring Plan Monitoring plan: standard ASA. Post Procedure Analgesic Plan Postoperative analgesic plan: multimodal analgesia. Informed Consent Anesthetic risks, benefits, alternatives, personnel and consent discussed: yes. Patient / Responsible Libertarian agrees to proceed: yes Patient / Surrogate agrees to blood products: Yes Significant changes in the patient condition since the History and Physical, not otherwise documented in primary service progress note: no. Potential Anesthesia issues that may suggest increased risk of complications or contraindication to planned procedure: none. Vitals Value Taken Time BP 149/104 09/04/22 0757 Pulse 79 09/04/22 0757 Resp 18 09/04/22 0757 Temp 36.3 ?C (97.3 ?F) 09/04/22 0757 SpO2 98 % 09/04/22 0757 Facility-Administered Medications as of 09/04/2022 Medication Dose Route Frequency - [COMPLETED] potassium chloride 40 mEq oral powder (KLOR-CON) 40 mEq ORAL BID - fentaNYL 50 mcg/mL injection (SUBLIMAZE) INTRAVENOUS X (OR/PROCEDURE) PRN - midazolam (PF) injection (VERSED) INTRAVENOUS X (OR/PROCEDURE) PRN - lidocaine (PF) 10 mg/mL (1 %) injection (XYLOCAINE) SUBCUTANEOUS X (OR/PROCEDURE) PRN - polyethylene glycol 3350 17 g packet (MIRALAX, GLYCOLAX) 17 g ORAL DAILY - senna 8.6 mg tab(s) (SENOKOT) 1 tablet ORAL BID - pantoprazole 40 mg injection (PROTONIX) 40 mg INTRAVENOUS BID AC (0600/1600) - carvedilol 12.5 mg tab(s) (COREG) 12.5 mg ORAL BID - labetalol 10 mg injection syringe (NORMODYNE) 10 mg INTRAVENOUS q 4 H PRN - melatonin 3 mg tab(s) 3 mg ORAL DAILY (8 PM) - acetaminophen 650 mg tab(s) (TYLENOL) 650 mg ORAL q 6 H PRN - ondansetron (PF) 4 mg injection (ZOFRAN) 4 mg INTRAVENOUS q 6 H PRN - morphine 4 mg injection 4 mg INTRAVENOUS q 4 H PRN - prochlorperazine 10 mg injection (COMPAZINE) 10 mg INTRAVENOUS q 6 H PRN - amLODIPine 10 mg tab(s) (NORVASC) 10 mg ORAL DAILY - [COMPLETED] hydrALAZINE 10 mg injection (APRESOLINE) 10 mg INTRAVENOUS ONCE - tacrolimus IR 2 mg cap(s) (PROGRAF) 2 mg ORAL q 12 H 6a/6p - [COMPLETED] ondansetron (PF) 4 mg injection (ZOFRAN) 4 mg INTRAVENOUS ONCE - [COMPLETED] morphine 4 mg injection 4 mg INTRAVENOUS ONCE - [] iv contrast (radiology procedure) INTRAVENOUS DIRECTED PRN - [COMPLETED] NaCl 0.9% 1,000 mL iv bolus 1,000 mL INTRAVENOUS ONCE - [] ondansetron (PF) 4 mg injection (ZOFRAN) 4 mg INTRAVENOUS ONCE - NaCl 0.9% iv flush bag 20 mL INTRAVENOUS PRN - [COMPLETED] morphine 4 mg injection 4 mg INTRAVENOUS ONCE - [COMPLETED] magnesium sulfate iv piggyback in sterile water 2 g 50 mL 2 g INTRAVENOUS ONCE - [COMPLETED] HYDROmorphone (PF) 0.5 mg injection (DILAUDID) 0.5 mg INTRAVENOUS ONCE - [COMPLETED] labetalol 5 mg injection syringe (NORMODYNE) 5 mg INTRAVENOUS ONCE - [COMPLETED] NaCl 0.9% 1,000 mL iv bolus 1,000 mL INTRAVENOUS ONCE Outpatient Medications as of 09/04/2022 Medication Sig - sulfamethoxazole-trimet hoprim (BACTRIM DS,SEPTRA DS) 800-160 mg per tablet TAKE 1 TABLET BY MOUTH EVERY THURSDAY,THURSDAY,THURSDAY . - carvedilol (COREG) 12.5 mg tablet Take 1 tablet by mouth twice daily. - tacrolimus IR (PROGRAF) 1 mg capsule Take 2 capsules by mouth twice daily. - iv contrast (will be provided with radiology test) CT ABD W -Inject, intravenously, once for 1 dose.No IV access, insert saline lock prior to the beginning of sedation, infusion, injection of imaging exam. Discontinue saline lock post exam. If Pt. has a central line or IVAD, may access for administration according to line specific nursing protocol. Once exam is complete flush line and de-access according to line specific nursing protocol in the CT contrast administration yosef (more content not included)... Normal [facility] CBC panel Auto (Bld)on 09-04 Erythrocyte distribution width (RBC) [Ratio] 17.1 % High 11.5-15.0 [facility] Comment on above: Order Comment: Noe [place] Type: BLOOD SPECIMEN Ordering Facility: [facility] Address: [address] [place] [address] Performed By: #### 5 0189-0, , 2132-03 #### [facility] CLIA [id number] [address] [place] [address] [place] Hematocrit (Bld) [Volume fraction] 36.1 % Low 39.0-51.0 [facility] Comment on above: Order Comment: Noe madrid Type: BLOOD SPECIMEN Ordering Facility: [facility] Address: [address] [place], [place] [address] Performed By: #### 5 0189-0, 08643-3, 2132-03 #### [facility] CLIA [id number] [address] [place] [address] [place] Hemoglobin (Bld) [Mass/Vol] 12.5 g/dL Low 13.0-17.0 [facility] Comment on above: Order Comment: Noe madrid Type: BLOOD SPECIMEN Ordering Facility: [facility] Address: [address] [place], [place] [address] Performed By: #### 5 0189-0, 90571-7, 2132-03 #### [facility] CLIA [id number] [address] [place] [address] [place] MCH (RBC) [Entitic mass] 30.0 pg Normal 26.0-34.0 [facility] Comment on above: Order Comment: Speci men Type: BLOOD SPECIMEN Ordering Facility: [facility] Address: [address] [place] [address] Performed By: #### 5 0189-0, 92659-6, 2132-03 #### [facility] CLIA [id number] [address] [place] [address] [place] MCHC (RBC) [Mass/Vol] 34.6 g/dL Normal 30.5-36.0 [facility] Comment on above: Order Comment: Speci men Type: BLOOD SPECIMEN Ordering Facility: [facility] Address: [address] [place], [place] [address] Performed By: #### 5 0189-0, , 2132-03 #### [facility] CLIA [id number] [address] [place] [address] [place] MCV (RBC) [Entitic vol] 86.8 fL Normal 80.0-100.0 [facility] Comment on above: Order Comment: Speci men Type: BLOOD SPECIMEN Ordering Facility: [facility] Address: [address] [place], [place] [address] Performed By: #### 5 0189-0, , 2132-03 #### [facility] CLIA [id number] [address] [place] [address] [place] Nucleated RBC (Bld) [#/Vol] 10*3/uL Normal <0.01 [facility] Comment on above: Order Comment: Speci men Type: BLOOD SPECIMEN Ordering Facility: [facility] Address: [address] Performed By: #### 5 0189-0, , 2132-03 #### [facility] CLIA [id number] [address] [place] [address] [place] Platelet mean volume (Bld) [Entitic vol] 11.8 fL Normal 9.0-12.7 [facility] Comment on above: Order Comment: Speci men Type: BLOOD SPECIMEN Ordering Facility: [facility] Address: [address] [address] Performed By: #### 5 0189-0, , 2132-03 #### [facility] CLIA [id number] [address] [place] [address] [place] Platelets (Bld) [#/Vol] 47 10*3/uL Low 150-400 [facility] Comment on above: Order Comment: Speci men Type: BLOOD SPECIMEN Ordering Facility: [facility] Address: [address] Result Comment: Resu lts checked and verified.No clot detected. Performed By: #### 5 0189-0, , 2132-03 #### [facility] CLIA [id number] [address] [place] [address] [place] RBC (Bld) [#/Vol] 4.16 10*6/uL Low 4.20-6.00 [facility] Comment on above: Order Comment: Speci men Type: BLOOD SPECIMEN Ordering Facility: [facility] Address: [address] Performed By: #### 5 0189-0, , 2132-03 #### [facility] CLIA [id number] [address] [place] [address] [place] WBC (Bld) [#/Vol] 3.04 10*3/uL Low 3.70-11.00 [facility] Comment on above: Order Comment: Speci men Type: BLOOD SPECIMEN Ordering Facility: [facility] Address: [address] [place], [place] [address] Performed By: #### 5 0189-0, 38709-1, 2132-9 #### [facility] CLIA [id number] [address] [facility] [id number] [place] [address] [place] CNPNon 09-04-2022 CNPN Telephone (GASTPR) CHUCKIE VILLALTA ([id number]) 1985 M TRN Date Time Provider Department 09/04/22 BETINA QUEZADA GAST[facility] During your visit today, we recorded the following information about you: Betina Quezada MD 09/04/2022 2:04 PM Signed Stent change with bruna Allergies As of Date: 09/04/2022 Noted Allergy Reaction PENICILLINS 16 - Unknown Comments: Skin test positive 09/01/18 MIDAZOLAM 02/18/2021 14 - Other: See Comments SEASONAL ALLERGIES 06/29/2018 16 - Unknown Date Reviewed: 09/04/2022 Reviewed by: Yamilet Giraldo RN - Fully Assessed Reason for Visit: Endoscopy Call [1773] 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 - iv contrast (will be provided with radiology test) CT ABD W -Inject, intravenously, once for 1 dose.No IV access, insert saline lock prior to the beginning of sedation, infusion, injection of imaging exam. Discontinue saline lock post exam. If Pt. has a central line or IVAD, may access for administration according to line specific nursing protocol. Once exam is complete flush line and de-access according to line specific nursing protocol in the CT contrast administration guidelines link. - enteric contrast (will be provided with radiology test) For CT ABD W IVCON order Administer, As Directed One Time Only, via Oral, Rectal, both Oral and Rectal, Enteric Tube, Stoma or Indwelling Catheter, Enteric Contrast as designated per enteric contrast guidelines - sulfamethoxazole-trimet hoprim (BACTRIM DS,SEPTRA DS) 800-160 mg per tablet TAKE 1 TABLET BY MOUTH EVERY THURSDAY,THURSDAY,THURSDAY . - carvedilol (COREG) 12.5 mg tablet Take 1 tablet by mouth twice daily. - pantoprazole DR (PROTONIX) 40 mg tablet Take 1 tablet by mouth DAILY (6 AM). - magnesium oxide (MAG-OX) 400 mg (241.3 mg magnesium) tablet Take 1 tablet by mouth twice daily. - amLODIPine (NORVASC) 10 mg tablet TAKE 1 TABLET BY MOUTH ONCE DAILY. Facility-Administered Medications as of 09/04/2022 - oxyCODONE IR 5 mg tab(s) (ROXICODONE) - morphine 4 mg injection - polyethylene glycol 3350 17 g packet (MIRALAX, GLYCOLAX) - senna 8.6 mg tab(s) (SENOKOT) - pantoprazole 40 mg injection (PROTONIX) - carvedilol 12.5 mg tab(s) (COREG) - labetalol 10 mg injection syringe (NORMODYNE) - melatonin 3 mg tab(s) - acetaminophen 650 mg tab(s) (TYLENOL) - ondansetron (PF) 4 mg injection (ZOFRAN) - prochlorperazine 10 mg injection (COMPAZINE) - amLODIPine 10 mg tab(s) (NORVASC) - tacrolimus IR 2 mg cap(s) (PROGRAF) - NaCl 0.9% iv flush bag Problem List As Of Date 09/04/2022 Noted Resolved Hemochromatosis [E83.119] 03/18/2018 Cellulitis [L03.90] 07/13/2018 Obesity, Class I, BMI 30-34.9 [E66.9] 07/14/2018 Severe protein-calorie malnutrition (HCC) [E43] 07/14/2018 Drug reaction [T50.905A] 09/01/2018 Seasonal allergic rhinitis due to pollen [J30.1]09/01/2018 Hepatic cirrhosis (HCC) [K74.60] 05/20/2019 08/03/2019 Liver transplant recipient (HCC) [Z94.4] 07/10/2019 Respiratory failure, post-operative (HCC) [J95.*07/11/2019 07/12/2019 Postoperative anemia [D64.9] 07/11/2019 Coagulopathy (HCC) [D68.9] 07/11/2019 08/03/2019 Acute pain [R52] 07/11/2019 08/03/2019 Elevated blood-pressure reading without diagnos*07/13/2019 Immunosuppressive management encounter followin*07/15/2019 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.*07/19/2019 Acute abdominal pain [R10.9] 07/21/2019 08/03/2019 Peritonitis (HCC) [K65.9] 07/25/2019 08/03/2019 Acute pancreatitis [K85.90] 07/05/2021 YOAN (acute kidney injury) (HCC) [N17.9] 07/05/2021 Hypomagnesemia [E83.42] 07/05/2021 Pancreatitis [K85.90] 07/05/2021 Primary hypertension [I10] 07/05/2021 Necrotizing pancreatitis [K85.91] 10/30/2021 Acute pancreatitis without infection or necrosi*09/01/2022 Encounter Status:Closed by BETINA QUEZADA on 09/04/22 Normal [facility] COPPER BLOODon 09-04-2022 Copper [Mass/Vol] 86 ug/dL Normal 70-140 [facility] Comment on above: Order Comment: Speci men Type: BLOOD SPECIMEN Ordering Facility: [facility] Address: [address] [place] [address] Result Comment: This test was developed and its performance characteristics determined by [facility]'s [facility] [place] ([facility]). It has not been cleared or approved by the FDA. [facility] is regulated under CLIA as qualified to perform high-complexity testing. This test is used for clinical purposes. It should not be regarded as investigational or for research. Performed By: #### 5 763-8, COPPER #### [facility] CLIA [id number] [address] [place] [address] [place] Comprehensive metabolic 2000 panelon 09-04-2022 Albumin [Mass/Vol] 3.7 g/dL Low 3.9-4.9 [facility] Comment on above: Order Comment: Speci men Type: BLOOD SPECIMEN Ordering Facility: [facility] Address: [address] [place] [address] Performed By: #### 2 4323-8 #### [facility] CLIA [id number] [address] [place] [address] [place] ALP [Catalytic activity/Vol] 104 U/L Normal 38-113 [facility] Comment on above: Order Comment: Speci men Type: BLOOD SPECIMEN Ordering Facility: [facility] Address: [address] [place] [address] Performed By: #### 2 4323-8 #### [facility] CLIA [id number] [address] [place] [address] [place] ALT [Catalytic activity/Vol] 101 U/L High 10-54 [facility] Comment on above: Order Comment: Speci men Type: BLOOD SPECIMEN Ordering Facility: [facility] Address: [address] [place] [address] Performed By: #### 2 4323-8 #### [facility] CLIA [id number] [address] [place] [address] [place] Anion gap [Moles/Vol] 10 mmol/L Normal 9-18 [facility] Comment on above: Order Comment: Speci men Type: BLOOD SPECIMEN Ordering Facility: [facility] Address: [address] [place], [place] [address] Performed By: #### 2 4323-8 #### [facility] CLIA [id number] [address] [place] [address] [place] AST [Catalytic activity/Vol] 87 U/L High 14-40 [facility] Comment on above: Order Comment: Speci men Type: BLOOD SPECIMEN Ordering Facility: [facility] Address: [address] Performed By: #### 2 4323-8 #### [facility] CLIA [id number] [address] [place] [address] [place] Bilirubin [Mass/Vol] 3.1 mg/dL High 0.2-1.3 [facility] Comment on above: Order Comment: Speci men Type: BLOOD SPECIMEN Ordering Facility: [facility] Address: [address] Performed By: #### 2 4323-8 #### [facility] CLIA [id number] [address] [place] [address] [place] Calcium [Mass/Vol] 9.3 mg/dL Normal 8.5-10.2 [facility] Comment on above: Order Comment: Speci men Type: BLOOD SPECIMEN Ordering Facility: [facility] Address: [address] Performed By: #### 2 4323-8 #### [facility] CLIA [id number] [address] [place] [address] [place] Chloride [Moles/Vol] 101 mmol/L Normal 97-105 [facility] Comment on above: Order Comment: Speci men Type: BLOOD SPECIMEN Ordering Facility: [facility] Address: [address] [place] [address] Performed By: #### 2 4323-8 #### [facility] CLIA [id number] [address] [place] [address] [place] CO2 [Moles/Vol] 25 mmol/L Normal 22-30 [facility] Comment on above: Order Comment: Speci men Type: BLOOD SPECIMEN Ordering Facility: [facility] Address: [address] Performed By: #### 2 4323-8 #### [facility] CLIA [id number] [address] [place] [address] [place] Creatinine [Mass/Vol] 1.09 mg/dL Normal 0.73-1.22 [facility] Comment on above: Order Comment: Noe madrid Type: BLOOD SPECIMEN Ordering Facility: [facility] Address: [address] [place] [address] Performed By: #### 2 4323-8 #### [facility] CLIA [id number] [address] [place] [address] [place] ESTIMATED GLOMERULAR FILTRATION RATE 90 mL/min/1.73m??? Normal >=60 [facility] Comment on above: Order Comment: Noe madrid Type: BLOOD SPECIMEN Ordering Facility: [facility] Address: [address] [place] [address] Result Comment: Brenda mated Glomerular Filtration Rate (eGFR) is calculated using the 2020 CKD-EPI creatinine equation. This equation utilizes serum creatinine, sex, and age as parameters. The creatinine assay has traceable calibration to isotope dilution-mass spectrometry. Refer to KDIGO guidelines for clinical interpretation. In patients with unstable renal function, e.g. those with acute kidney injury, the eGFR may not accurately reflect actual GFR. Performed By: #### 2 4323-8 #### [facility] CLIA [id number] [facility] [place] [address] [place] Glucose [Mass/Vol] 123 mg/dL High 74-99 [facility] Comment on above: Order Comment: Noe madrid Type: BLOOD SPECIMEN Ordering Facility: [facility] Address: [address] [place] [address] Result Comment: The [place] Diabetes [employer] (ADA) provides guidance for cutoff values for fasting glucose and random glucose. The ADA defines fasting as no caloric intake for at least 8 hours. Fasting plasma glucose results between 100 to 125 mg/dL indicate increased risk for diabetes (prediabetes). Fasting plasma glucose results greater than or equal to 126 mg/dL meet the criteria for diagnosis of diabetes. In the absence of unequivocal hyperglycemia, results should be confirmed by repeat testing. In a patient with classic symptoms of hyperglycemia or hyperglycemic crisis, random plasma glucose results greater than or equal to 200 mg/dL meet the criteria for diagnosis of diabetes. Reference: Standards of Medical Care in Diabetes 2016, [place] [employer]. Diabetes Care. 2016.39(Suppl 1). Performed By: #### 2 4323-8 #### [facility] CLIA [id number] [address] [place] [address] [place] Potassium [Moles/Vol] 4.1 mmol/L Normal 3.7-5.1 [facility] Comment on above: Order Comment: Speci men Type: BLOOD SPECIMEN Ordering Facility: [facility] Address: [address] [place] [address] Performed By: #### 2 4323-8 #### [facility] CLIA [id number] [address] [place] [address] [place] Protein [Mass/Vol] 6.7 g/dL Normal 6.3-8.0 [facility] Comment on above: Order Comment: Speci men Type: BLOOD SPECIMEN Ordering Facility: [facility] Address: [address] Performed By: #### 2 4323-8 #### [facility] CLIA [id number] [address] [place] [address] [place] Sodium [Moles/Vol] 136 mmol/L Normal 136-144 [facility] Comment on above: Order Comment: Speci men Type: BLOOD SPECIMEN Ordering Facility: [facility] Address: [address] Performed By: #### 2 4323-8 #### [facility] CLIA [id number] [address] [place] [address] [place] Urea nitrogen [Mass/Vol] 7 mg/dL Low 9-24 [facility] Comment on above: Order Comment: Speci men Type: BLOOD SPECIMEN Ordering Facility: [facility] Address: [address] Performed By: #### 2 4323-8 #### [facility] CLIA [id number] [address] [facility] [place] [address] [place] FLUORO ERCP (POC) FOR DDI US E ONLYon 09-04-2022 [facility] NURSING PROGon 09-04-2022 NURSING PROG HNO ID: [id number] Author: Adeline Martínez RN Service: Nursing Author Type: Registered Nurse Type: Nursing Progress Note Filed: 09/04/2022 7:59 AM Note Text: PRE OP LEARNING ASSESSMENT PROCEDURE/SURGERY: GI PROCEDURES: EGD READINESS TO LEARN COGNITIVE ABILITY: Alert and oriented MOTIVATION TO LEARN: Eager Interested FAMILY SUPPORT: High - Very involved in pt care PATIENT LEARNS BEST BY: Individual Instruction Written Instruction - Hand-outs Verbal Instruction FACTORS AFFECTING LEARNING: None PHYSICAL LIMITATIONS AFFECTING LEARNING: None Electronically Signed By: Adeline Martínez RN In Department: HOSP MAIN G100 Normal [facility] PT panel Coag (PPP)on 2022 INR Coag (PPP) [Relative time] 1.1 {INR} Normal 0.9-1.3 [facility] Comment on above: Order Comment: Speci men Type: BLOOD SPECIMEN Ordering Facility: [facility] Address: [address] [place], [place] [address] Result Comment: Aster min K Antagonist (VKA) Therapeutic Range: INR 2 to 3 (Target INR of 2.5) Note: For patients treated with VKA drugs, such as warfarin, the [place] [employer] 2012 Guideline recommends a therapeutic INR range of 2 to 3 (target INR of 2.5). This recommendation includes high-risk patients with antiphospholipid syndrome with previous arterial or venous thromboembolism, current-generation mechanical or bioprosthetic aortic heart valve replacement. Note: Patients with mechanical aortic valve replacement and additional risk factors for thromboembolic events (atrial fibrillation, previous thromboembolism, LV dysfunction, hypercoagulable conditions) or an older generation mechanical AVR (i.e., ball in-Cage) or any mechanical MVR should have a INR therapeutic range of 2.5 to 3.5 (target INR of 3). Scotty GH, et al. Chest 2012, 141:7S-47S Goldie RA, et al. [facility] 2017, 70: 252-289 Performed By: #### 5 763-8, COPPER #### [facility] CLIA [id number] [address] [place] [address] [place] PT Coag (PPP) [Time] 11.0 s Normal 9.7-13.0 [facility] Comment on above: Order Comment: Specjake madrid Type: BLOOD SPECIMEN Ordering Facility: [facility] Address: [address] [place] [address] Performed By: #### 5 763-8, COPPER #### [facility] CLIA [id number] [address] [place] Tacrolimus Bld-mCncon 2022 Tacrolimus (Bld) [Mass/Vol] 10.5 ng/mL Normal 5.0-20.0 [facility] Comment on above: Order Comment: Noe [place] Type: BLOOD SPECIMENOrdering Facility: [facility] Address: [address] [place] [address] Result Comment: Nannette vidualized target levels for a given patient will depend on many factors (including the type of organ transplant, time since transplantation, concurrent medications, and other clinical factors), and should be assessed by those health care providers experienced in the management of immunosuppression. Reference ranges and high/low indicator flags are provided as general guidelines only. The treating physician must determine appropriate target levels/dosing based on the specific clinical situation. Test performed by chemiluminescent immunoassay using Schuler Alinity i. Performed By: #### 1 1253-2 ####[facility] [id number] [place] [address] [place] VITAMIN B6/PYRIDOXINon 09-04 VITAMIN B6 19.3 nmol/L Low 20.0-125.0 [facility] Comment on above: Order Comment: Noe [place] Type: BLOOD SPECIMEN Ordering Facility: [facility] Address: [address] [place] [address] Result Comment: INTE RPRETIVE INFORMATION: Vitamin B6 (Pyridoxal 5-Phosphate) Pyridoxal 5'-phosphate measured in a specimen collected following an 8-hour or overnight fast accurately indicates vitamin B6 nutritional status. Non-fasting specimen concentration reflects recent vitamin intake. This test was developed and its performance characteristics determined by [employer]. It has not been cleared or approved by the [place] Food and Drug Administration. This test was performed in a CLIA certified laboratory and is intended for clinical purposes. Performed By: [facility] [employer] [address] [place] [address] Program Host: Mic Rangel MD, PhD Performed By: #### V ITB6 #### [facility] CLIA [id number] [address] [place] [address] Zinc SerPl-mCncon 09-04-2022 Zinc [Mass/Vol] 57 ug/dL Low 60-120 [facility] Comment on above: Order Comment: Speci men Type: BLOOD SPECIMEN Ordering Facility: [facility] Address: [address] [place] [address] Result Comment: This test was developed and its performance characteristics determined by [facility]'s Molly JArsalan [facility] Pathology and Laboratory Medicine [place] (RT-PL[facility]). It has not been cleared or approved by the FDA. [facility] is regulated under CLIA as qualified to perform high-complexity testing. This test is used for clinical purposes. It should not be regarded as investigational or for research. Performed By: #### 5 763-8, COPPER #### [facility] CLIA [id number] [address] [place] [address] [place] BRIEF OP NOTon 09-03-2022 BRIEF OP NOT HNO ID: [id number] Author: Howard Shepherd MD Service: Radiology Author Type: Physician Type: Brief Op Note Filed: 09/03/2022 2:51 PM Note Text: BRIEF OPERATIVE / PROCEDURE NOTE LOG ID: [id number] SURGERY/PROCEDURE DATE: 08/31/2022 - 09/03/2022 INCISION/PROCEDURE START TIME: 2:34 PM INCISION CLOSE/PROCEDURE END TIME: 2:39 PM SURGEON(S)/PROCEDURALIS T(S) AND HARVEST CONTRACTOR(S): Surgeon(s) and Role: * Peter S Shepherd, MD - Primary No Additional Staff SURGERY/PROCEDURE(S): Image guided random liver transplant biopsy with moderate sedation ANESTHESIA: Procedural Sedation FINDINGS: Status post liver transplant (right lobe) ESTIMATED BLOOD LOSS: 0 ml SPECIMENS: 1 x 18G core biopsy sent to surgical pathology COMPLICATIONS: None CLOSURE TECHNIQUE: Primary (Manual Compression) PRE-OP/PRE-PROCEDURE DIAGNOSIS: Status post liver transplant, prior history of rejection POST-OP/POST-PROCEDURE DIAGNOSIS: Same as Preop SIGNATURE: Howard Shepherd MD PATIENT NAME: Chuckie Villalta DATE: September 03, 2022 TIME: 2:50 PM Normal [facility] CASE MANAGEMon 09-03-2022 CASE MANAGEM HNO ID: [id number] Author: JEY Felton Service: ? Author Type: Automotive Refinisher Type: Care Mgt Progress Note Filed: 09/03/2022 10:03 AM Note Text: CARE MANAGEMENT PROGRESS NOTE SERVICE DATE: 09/03/2022 SERVICE TIME: 10:03 AM LOS: 2 days Needs Prior to Discharge: To Be Determined;Procedure This patient has been screened for Care Management Transitional Planning Services. At this time, it does not appear this patient will require transition planning services. Should this change, and the patient require transition planning services during this admission, please contact Case Management. SIGNATURE: JEY Jim PATIENT NAME: Chuckie Villalta DATE: September 03, 2022 TIME: 10:03 AM PAGER/CONTACT #: Normal [facility] CBC panel Auto (Bld)on 09-03 Erythrocyte distribution width (RBC) [Ratio] 16.9 % High 11.5-15.0 [facility] Comment on above: Order Comment: Speci men Type: BLOOD SPECIMENOrdering Facility: [facility] Address: [address] [place] [address] Performed By: #### 3 1201-7, 73141-2, IPFR ####[facility] [id number] [address] [place] Hematocrit (Bld) [Volume fraction] 33.9 % Low 39.0-51.0 [facility] Comment on above: Order Comment: Speci men Type: BLOOD SPECIMENOrdering Facility: [facility] Address: [address] Performed By: #### 3 1201-7, 23082-9, IPFR ####[facility] [id number] [place] [address] [place] Hemoglobin (Bld) [Mass/Vol] 12.0 g/dL Low 13.0-17.0 [facility] Comment on above: Order Comment: Speci men Type: BLOOD SPECIMENOrdering Facility: [facility] Address: [address] [place] [address] Performed By: #### 3 1201-7, 13717-7, IPFR ####[facility] [id number] [place] [address] [place] MCH (RBC) [Entitic mass] 30.2 pg Normal 26.0-34.0 [facility] Comment on above: Order Comment: Speci men Type: BLOOD SPECIMENOrdering Facility: [facility] Address: [address] [place] [place] [address] Performed By: #### 3 1201-7, 72490-4, IPFR ####[facility] [id number] [place] [address] [place] MCHC (RBC) [Mass/Vol] 35.4 g/dL Normal 30.5-36.0 [facility] Comment on above: Order Comment: Speci men Type: BLOOD SPECIMENOrdering Facility: [facility] Address: [address] Performed By: #### 3 1201-7, 58296-5, IPFR ####[facility] [id number] [place] [address] [place] MCV (RBC) [Entitic vol] 85.4 fL Normal 80.0-100.0 [facility] Comment on above: Order Comment: Speci men Type: BLOOD SPECIMENOrdering Facility: [facility] Address: [address] Performed By: #### 3 1201-7, 85467-2, IPFR ####[facility] [id number] [place] [address] [place] Nucleated RBC (Bld) [#/Vol] 10*3/uL Normal <0.01 [facility] Comment on above: Order Comment: Speci men Type: BLOOD SPECIMENOrdering Facility: [facility] Address: [address] Performed By: #### 3 1201-7, 85073-4, IPFR ####[facility] [id number] [place] [address] [place] Platelet mean volume (Bld) [Entitic vol] 12.1 fL Normal 9.0-12.7 [facility] Comment on above: Order Comment: Speci men Type: BLOOD SPECIMENOrdering Facility: [facility] Address: [address] [place] [address] Performed By: #### 3 1201-7, 04806-7, IPFR ####[facility] [id number] [place] [address] [place] Platelets (Bld) [#/Vol] 39 10*3/uL Low 150-400 [facility] Comment on above: Order Comment: Speci men Type: BLOOD SPECIMENOrdering Facility: [facility] Address: [address] Result Comment: No c lot detected. Performed By: #### 3 1201-7, 61149-8, IPFR ####[facility] [id number] [place] [address] [place] RBC (Bld) [#/Vol] 3.97 10*6/uL Low 4.20-6.00 [facility] Comment on above: Order Comment: Speci men Type: BLOOD SPECIMENOrdering Facility: [facility] Address: [address] [place] [id number] Performed By: #### 3 1201-7, 84941-0, IPFR ####[facility]CLIA [id number] [address] WBC (Bld) [#/Vol] 2.84 10*3/uL Low 3.70-11.00 [facility] Comment on above: Order Comment: Speci men Type: BLOOD SPECIMENOrdering Facility: [facility] Address: [address] [place] [id number] Performed By: #### 3 1201-7, 12267-1, IPFR ####[facility]IA [id number] [address] CONSULTon 09-03-2022 CONSULT HNO ID: [id number] Author: Agnes Johnson DO Service: Hematology Author Type: Physician Type: Consults Filed: 09/04/2022 3:29 PM Note Text: PATIENT NAME: Chuckie Villalta CLINIC NO.: [id number] DATE OF SERVICE: September 03, 2022 PRIMARY TEAM: Medicine REASON FOR CONSULT: Thrombocytopenia HISTORY OF PRESENT ILLNESS: Mr. 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 Consulted for evaluation of cytopenias. Upon presentation: WBC 17.95, Hb 16.7, PLT 164 K (possibly spurious values) with subsequent CBC as followed: WBC 5.59, Hb 13.3, PLT 56 K. Differentials with lymphopenia. Recent platelet trend: 56 > 40 > 38 > 39. Hemoglobins have been ~12. Has history of intermittent mild thrombocytopenia. Notable labs: LDH 207, Haptoglobin 36, Retic 1.7% (0.071) AST 114, ALT 113. Ferritin 345, Iron 26, TIBC 271, TS 9.6% PT 11.9, Fibrinogen 442 Total bilirubin 5.7 with 4.2 conjugated SQ Heparin started on 09/01. Given Ciprofloxacin and Flagyl on 08/31. Bactrim DS has been stopped. Current immunosuppression is Tacrolimus. Plan for liver biopsy this admission. Imaging shows acute edematous pancreatitis, hepatic steatosis, and splenomegaly of 15.5 cm. Denies any obvious signs of bleeding at this time. Subjective PAST MEDICAL HISTORY Diagnosis Date Cirrhosis (HCC) Hemochromatosis Hepatic cirrhosis (HCC) 05/20/2019 Hypertension Hypertensive retinopathy, bilateral Long-term current use of tacrolimus Maculopathy Portal hypertension (HCC) related to cirrhosis Psoriasis Varicose vein of leg Right leg PAST SURGICAL HISTORY Procedure Laterality Date EGD 10/2017 LIVER TRANSPLANT HX NECK SURGERY HX PICC LINE INSERT/CONSULT 07/19/2019 VENOUS THROMBOSIS IMAGING VENOGRAM BILATERAL FAMILY HISTORY Problem Relation Age of Onset COPD Mother Hypertension Mother other (Other) Mother varicose veins with procedure Colon Cancer Father Social History Tobacco Use Smoking status: Never Smokeless tobacco: Former Substance Use Topics Alcohol use: Yes Comment: occasionally Drug use: No Current Facility-Administered Medications Medication Dose Route Frequency NaCl 0.9% iv flush bag 20 mL INTRAVENOUS PRN carvedilol 12.5 mg tab(s) (COREG) 12.5 mg ORAL BID labetalol 10 mg injection syringe (NORMODYNE) 10 mg INTRAVENOUS q 4 H PRN melatonin 3 mg tab(s) 3 mg ORAL DAILY (8 PM) NaCl 0.9% iv infusion 75 mL/hr INTRAVENOUS CONTINUOUS acetaminophen 650 mg tab(s) (TYLENOL) 650 mg ORAL q 6 H PRN ondansetron (PF) 4 mg injection (ZOFRAN) 4 mg INTRAVENOUS q 6 H PRN morphine 4 mg injection 4 mg INTRAVENOUS q 4 H PRN prochlorperazine 10 mg injection (COMPAZINE) 10 mg INTRAVENOUS q 6 H PRN amLODIPine 10 mg tab(s) (NORVASC) 10 mg ORAL DAILY tacrolimus IR 2 mg cap(s) (PROGRAF) 2 mg ORAL q 12 H 6a/6p polyethylene glycol 3350 17 g packet (MIRALAX, GLYCOLAX) 17 g ORAL DAILY senna 8.6 mg tab(s) (SENOKOT) 1 tablet ORAL BID pantoprazole 40 mg injection (PROTONIX) 40 mg INTRAVENOUS BID AC (0600/1600) potassium chloride 40 mEq oral powder (KLOR-CON) 40 mEq ORAL BID ALLERGIES: ALLERGIES Allergen Reactions Penicillins Unknown Skin test positive 09/01/18 Midazolam Other: See Comments Seasonal Allergies Unknown Review Of Systems GENERAL:No weight loss, malaise or fevers. HEENT:No nasal bleeding, congestion or rhinorrhea NECK:Negative for lumps, goiter, pain and significant neck swelling RESPIRATORY: Negative for cough, wheezing or shortness of breath. CARDIOVASCULAR: Negative for chest pain, leg swelling or palpitations. GASTROINTESTINAL: See HPI GENITOURINARY: Negative MUSCULOSKELETAL: Negative for joint pain or swelling, back pain or muscle pain. NEUROLOGIC:Negative for focal numbness or weakness, headaches and dizziness or syncope. SKIN:Negative for lesions, rash, and itching. PSYCHIATRIC: Negative for sleep disturbance, mood disorder and recent psychosocial stressors. HEMATOLOGIC/LYMPHATIC/I MMUNOLOGIC:See HPI ENDOCRINE: Negative for cold or heat intolerance, polyuria, polydipsia and goiter. The remainder of the ROS was negative. Objective PHYSICAL EXAMINATION: BP 148/103 Pulse 78 Temp 36.6 ?C (97.9 ?F) (Oral) Resp 18 Ht 182.9 cm (6') Wt 98.5 kg (217 lb 2.5 oz) SpO2 96% BMI 29.45 kg/m? Intake/Output Summary (Last 24 hours) at 09/03/2022 0942 Last data filed at 09/03/2022 0544 Gross per 24 hour Intake 940 ml Output 1225 ml Net -285 ml General: No acute distress. AANDO x3. Cardiac: RRR Pulm: Clear to auscultation Extremities: No edema, calf tenderness, or asymmetry. Pedal pulses present. Skin: No jaundice, rashes, lesions, purpura, or ecchymoses Neurological: Alert and oriented x 3, no gross focal motor deficits DIAGNOSTIC THAI (more content not included)... Normal [facility] Comprehensive metabolic 2000 panelon 09-03-2022 Albumin [Mass/Vol] 3.4 g/dL Low 3.9-4.9 [facility] Comment on above: Order Comment: Speci men Type: BLOOD SPECIMEN Ordering Facility[facility] Address: [address] [place] [id number] Performed By: #### 5 0189-0, 90531-5, 2132-9 #### [facility] CLIA [id number] [address] [place] [address] [place] ALP [Catalytic activity/Vol] 99 U/L Normal 38-113 [facility] Comment on above: Order Comment: Speci men Type: BLOOD SPECIMEN Ordering Facility: [facility] Address: [address] [place] [address] Performed By: #### 5 0189-0, , 2132-03 #### [facility] CLIA [id number] [address] [place] [address] [place] ALT [Catalytic activity/Vol] 113 U/L High 10-54 [facility] Comment on above: Order Comment: Speci men Type: BLOOD SPECIMEN Ordering Facility: [facility] Address: [address] [place] [address] Performed By: #### 5 0189-0, , 2132-03 #### [facility] CLIA [id number] [address] [place] [address] [place] Anion gap [Moles/Vol] 10 mmol/L Normal 9-18 [facility] Comment on above: Order Comment: Speci men Type: BLOOD SPECIMEN Ordering Facility: [facility] Address: [address] [place], [place] [address] Performed By: #### 5 0189-0, , 2132-03 #### [facility] CLIA [id number] [address] [place] [address] [place] AST [Catalytic activity/Vol] 114 U/L High 14-40 [facility] Comment on above: Order Comment: Speci men Type: BLOOD SPECIMEN Ordering Facility: [facility] Address: [address] [place], [place] [address] Performed By: #### 5 0189-0, , 2132-03 #### [facility] CLIA [id number] [address] [id number] [address] [place] Bilirubin [Mass/Vol] 5.9 mg/dL High 0.2-1.3 [facility] Comment on above: Order Comment: Speci men Type: BLOOD SPECIMEN Ordering Facility: [facility] Address: [address] [place] [address] Performed By: #### 5 0189-0, , 2132-03 #### [facility] CLIA [id number] [address] [place] [address] [place] Calcium [Mass/Vol] 8.6 mg/dL Normal 8.5-10.2 [facility] Comment on above: Order Comment: Speci men Type: BLOOD SPECIMEN Ordering Facility: [facility] Address: [address] [place] [address] Performed By: #### 5 0189-0, , 2132-03 #### [facility] CLIA [id number] [address] [place] [address] [place] Chloride [Moles/Vol] 103 mmol/L Normal 97-105 [facility] Comment on above: Order Comment: Speci men Type: BLOOD SPECIMEN Ordering Facility: [facility] Address: [address] [place], [place] [address] Performed By: #### 5 0189-0, , 2132-03 #### [facility] CLIA [id number] [address] [place] [address] [place] CO2 [Moles/Vol] 22 mmol/L Normal 22-30 [facility] Comment on above: Order Comment: Speci men Type: BLOOD SPECIMEN Ordering Facility: [facility] Address: [address] [place], [place] [address] Performed By: #### 5 0189-0, , 2132-03 #### [facility] CLIA [id number] [address] [place] [address] [place] Creatinine [Mass/Vol] 1.15 mg/dL Normal 0.73-1.22 [facility] Comment on above: Order Comment: [place]e [place] Type: BLOOD SPECIMEN Ordering Facility: [facility] Address: [address] [place], [place] [id number] Performed By: #### 5 0189-0, , 2132-03 #### [facility] CLIA [id number] [address] [place] [address] [place] ESTIMATED GLOMERULAR FILTRATION RATE 85 mL/min/1.73m??? Normal >=60 [facility] Comment on above: Order Comment: Noe [place] Type: BLOOD SPECIMEN Ordering Facility: [facility] Address: [address] [place] [address] Result Comment: Brenda mated Glomerular Filtration Rate (eGFR) is calculated using the 2020 CKD-EPI creatinine equation. This equation utilizes serum creatinine, sex, and age as parameters. The creatinine assay has traceable calibration to isotope dilution-mass spectrometry. Refer to KDIGO guidelines for clinical interpretation. In patients with unstable renal function, e.g. those with acute kidney injury, the eGFR may not accurately reflect actual GFR. Performed By: #### 5 0189-0, , 2132-03 #### [facility] CLIA [id number] [address] [place] [address] [place] Glucose [Mass/Vol] 125 mg/dL High 74-99 [facility] Comment on above: Order Comment: Noe [place] Type: BLOOD SPECIMEN Ordering Facility: [facility] Address: [address] [place], [place] [phone] Result Comment: The [place] Diabetes Association (ADA) provides guidance for cutoff values for fasting glucose and random glucose. The ADA defines fasting as no caloric intake for at least 8 hours. Fasting plasma glucose results between 100 to 125 mg/dL indicate increased risk for diabetes (prediabetes). Fasting plasma glucose results greater than or equal to 126 mg/dL meet the criteria for diagnosis of diabetes. In the absence of unequivocal hyperglycemia, results should be confirmed by repeat testing. In a patient with classic symptoms of hyperglycemia or hyperglycemic crisis, random plasma glucose results greater than or equal to 200 mg/dL meet the criteria for diagnosis of diabetes. Reference: Standards of Medical Care in Diabetes 2016, [place] Diabetes Association. Diabetes Care. 2016.39(Suppl 1). Performed By: #### 5 0189-0, , 2132-03 #### [facility] CLIA [id number] [address] [place] [address] [place] Potassium [Moles/Vol] 3.5 mmol/L Low 3.7-5.1 [facility] Comment on above: Order Comment: Speci men Type: BLOOD SPECIMEN Ordering Facility: [facility] Address: [address] [phone] Performed By: #### 5 0189-0, , 2132-03 #### [facility] CLIA [id number] [facility] [place] [address] [place] Protein [Mass/Vol] 5.9 g/dL Low 6.3-8.0 [facility] Comment on above: Order Comment: Speci men Type: BLOOD SPECIMEN Ordering Facility: [facility] Address: [address] Performed By: #### 5 0189-0, , 2132-03 #### [facility] CLIA [id number] [address] [place] [address] [place] Sodium [Moles/Vol] 135 mmol/L Low 136-144 [facility] Comment on above: Order Comment: Speci men Type: BLOOD SPECIMEN Ordering [facility] Address: [address] [place] [address] Performed By: #### 5 0189-0, , 2132-03 #### [facility] CLIA [id number] [address] [address] [place] Urea nitrogen [Mass/Vol] 8 mg/dL Low 9-24 [facility] Comment on above: Order Comment: Speci men Type: BLOOD SPECIMEN Ordering Facility: [facility] Address: [place] [address] Performed By: #### 5 0189-0, 79035-5, 2132-9 #### [facility] CLIA [id number] [address] Creatinine Unsp time (U) [Ma ss/Vol]on 09-03-2022 Creatinine (U) [Mass/Vol] 75.6 mg/dL Normal 20.0-300.0 [facility] Comment on above: Order Comment: Speci men Type: BLOOD SPECIMEN Ordering [facility] Address: [address] Performed By: #### 5 763-8, COPPER #### [facility] CLIA [id number] [address] [place] [address] HISTORY PHYSICALon HISTORY PHYSICAL HNO ID: [id number] Author: Howard Shepherd MD Service: Radiology Author Type: Physician Type: HANDP Filed: 09/03/2022 12:54 PM Note Text: UPDATED PROCEDURAL SEDATION HISTORY AND PHYSICAL EXAMINATION SERVICE DATE: 09/03/2022 SERVICE TIME: 12:52 PM PHYSICAL EXAM MUST BE COMPLETED ON ADMISSION PROCEDURE SCHEDULED: Procedure(s): PERCUTANEOUS NEEDLE BIOPSY OF LIVER (N/A) RADIOLOGY ORDER PLACED: Radiology (1440h ago, onward) Start Ordered 09/02/22 1645 IMAGING GUIDED BIOPSY LIVER ONCE, Routine 09/02/22 1632 The History and Physical (completed in the past 30 days) has been reviewed and the patient has been examined. The contents accurately reflect the patient's condition with the following additions or revisions since the HANDP was completed. ASA Class: ASA Class:: Patient with mild systemic disease Examination indicates no changes. AIRWAY: Airway Visualization of Uvula: Yes Mouth opening greater than 2 fingerbreadths: Yes Neck Full Range of Motion: Yes LUNGS: Lungs clear to auscultation CARDIAC: Regular rhythm,Regular rate Of note, the patient has low platelets but has received platelet transfusion and will receive additional platelets during the procedure. The risk of bleeding has been discussed with the patient, including potentially increased risk due to platelet levels, and patient agrees to move forward with the test. Provisional Diagnosis/Treatment Plan: Image guided transplant liver biopsy with moderate sedation. SEDATION GOAL: Moderate This HANDP can be found in the Electronic Medical Record dated 08/31/2022. SIGNATURE: Howard Shepherd MD PATIENT NAME: Chuckie Villalta DATE: September 03, 2022 TIME: 12:52 PM PAGER: [phone] Normal [facility] HIV 1+2 Ab IA Qlon 3 HIV 1 and 2 Ab IA.rapid Nom Normal [facility] Comment on above: Order Comment: Speci men Type: BLOOD SPECIMENOrdering Facility: [facility] Address: [address] [place] [address] Result Comment: Test not indicated. Performed By: #### 3 1201-7, 02952-2, IPFR ####[facility] [id number] [place] [address] [place] HIV 1+2 Ab+HIV1 p24 Ag IA Ql Non-Reactive Normal Nonreactive [facility] Comment on above: Order Comment: Speci men Type: BLOOD SPECIMENOrdering Facility: [facility] Address: [address] [place] [address] Performed By: #### 3 1201-7, 80511-6, IPFR ####[facility] [id number] [place] [address] [place] HIVINT Normal [facility] Comment on above: Order Comment: Speci men Type: BLOOD SPECIMENOrdering Facility: [facility] Address: [address] [place] [address] Result Comment: No e vidence of HIV-1 or HIV-2 infection. Should recent infection be suspected, repeat testing may be considered 2-3 weeks after this draw. [place] Rev. Code 3701.243(E): This information has been disclosed to you from confidential records protected from disclosure by state law. ???You shall make no further disclosure of this information without the specific, written, and informed release of the individual to whom it pertains or as otherwise permitted by state law. A general authorization for the release of medical or other information is not sufficient for the purpose of the release of HIV test results or diagnoses. Performed By: #### 3 1201-7, 70572-0, IPFR ####[facility] [id number] [address] [place] IMMATURE PLATELET FRACTIONon 09-03-2022 Platelets reticulated/100 platelets Auto (Bld) 11.9 % High 0.9-7.2 [facility] Comment on above: Order Comment: Speci men Type: BLOOD SPECIMENOrdering Facility: [facility] Address: [address] [place] [address] Performed By: #### 3 1201-7, 71355-4, IPFR ####[facility] [id number] [place] [address] [place] bilirubin panel [Ma ss/Vol]on 09-03-2022 Bilirubin [Mass/Vol] 5.7 mg/dL High 0.2-1.3 [facility] Comment on above: Order Comment: Speci men Type: BLOOD SPECIMEN Ordering [facility] Address: [address] [address] [place], [place] [address] Performed By: #### 5 0189-0, , 2132-03 #### [facility] CLIA [id number] [facility] [place] [address] [place] Bilirubin.conjugated [Mass/Vol] 4.2 mg/dL High <0.2 [facility] Comment on above: Order Comment: Speci men Type: BLOOD SPECIMEN Ordering Facility: [facility] Address: [address] [place] [address] Performed By: #### 5 0189-0, 16493-6, 2132-03 #### [facility] CLIA [id number] [address] [place] Bilirubin.indirect [Mass/Vol] 1.5 mg/dL High <1.4 [facility] Comment on above: Order Comment: Speci men Type: BLOOD SPECIMEN Ordering Facility: [facility] Address: [address] [place] [address] Performed By: #### 5 0189-0, 62751-9, 2132-9 #### [facility] CLIA [id number] [facility] [address] OF [place] PT EDon 09-03-2022 PT ED HNO ID: [id number] Author: Kia Lyon RN Service: Nursing Author Type: Registered Nurse Type: Patient Education Filed: 09/03/2022 2:29 PM Note Text: AMBULATORY PATIENT EDUCATION TOPIC: Survival Skills: Procedure, transplant liver biopsy READINESS TO LEARN COGNITIVE ABILITY: Alert and oriented MOTIVATION TO LEARN: Interested FAMILY SUPPORT: Unable to assess INSTRUCTION PROVIDED TO: Patient PATIENT LEARNS BEST BY: Individual Instruction FACTORS AFFECTING LEARNING: Unable to assess PHYSICAL LIMITATIONS AFFECTING LEARNING: Pain and Fatigue LEARNING RESPONSE DIAGNOSIS: elevated LFT's, r/o rejection METHOD OF INSTRUCTION: Individual instruction PATIENT / FAMILY RESPONSE: Information received as demonstrated by interest and questions FOLLOW-UP PLAN: Patient instructed to call with any further issues SUPPLEMENTAL MATERIAL: None REFERRAL (RECOMMENDATION): None Electronically Signed By: Kia Ngo RN In Department: [facility] MAIN G100 Normal [facility] Platelets Auto (Bld) [#/Vol] on 09-03-2022 Platelets (Bld) [#/Vol] 38 10*3/uL Low 150-400 [facility] Comment on above: Order Comment: Speci men Type: BLOOD SPECIMEN Ordering Facility: [facility] Address: [address] [place] [address] Result Comment: No c lot detected. Performed By: #### 5 763-8, COPPER #### [facility] CLIA [id number] [address] [place] [address] OF [place] SURGICAL PATHOLOGYon 023 ADDENDUM 1: Normal [facility] Comment on above: Order Comment: Speci men Type: TISSUE SPECIMENOrdering Facility: [facility] Address: [address] [place] [address], [place] [address] Result Comment: This addendum is issued to report the results of immunohistochemical stains. The original diagnoses remain unchanged. Immunohistochemical staining for complement C4d shows minimal labeling of the portal microvasculature (C4d deposition in >50% of the circumference of portal veins and capillaries, seen in fewer than 10% of portal tracts). This is result is of uncertain significance. The diagnosis of antibody-mediated rejection requires the presence of an appropriate histopathological pattern of injury, serum donor-specific antibodies (DSA) at the time of the biopsy, diffuse microvascular C4d deposition, and reasonable exclusion of other insults that might cause a similar pattern of injury. Laboratory Developed Test (LDT) Disclaimer: Performance characteristics of immunohistochemical, immunofluorescent and chromogenic in-situ hybridization tests have been determined by the performing laboratory within [facility]???s [facility] Pathology and Laboratory Medicine [place] ([facility], [facility], [facility], [facility], [facility], or [facility]) in a manner consistent with CLIA requirements. One or more of these tests have not been cleared or approved by the FDA. [facility] is regulated under CLIA as qualified to perform high-complexity testing. These tests are used for clinical purposes. They should not be regarded as investigational or for research. Positive and negative controls stain appropriately. Addendum electronically signed by August Oh MD on 09/07/2022 at 4:39 PM Performed By: #### S ####[facility] [id number] [facility] [id number] [place] [address] [place] CASE REPORT Normal [facility] Comment on above: Order Comment: Speci men Type: TISSUE SPECIMENOrdering Facility: [facility] Address: [address] [place] [address] Result Comment: Surg ical Pathology Report Case: [id number] Authorizing Provider: Howard Shepherd MD Collected: 09/03/2022 02:35 PM Ordering Location: [place] [address] Received: 09/03/2022 03:04 PM Pathologist: August Oh MD Specimen: LIVER TRANSPLANT BIOPSY Performed By: #### S ####[facility] [id number] [address] CLINICAL HISTORY s/p liver transplant , elevated LFT's, history of rejection. Normal [facility] Comment on above: Order Comment: Speci men Type: TISSUE SPECIMENOrdering Facility: [facility] Address: [address] [place] [address] Performed By: #### S ####[facility]IA [id number] [address] [place] DIAGNOSIS COMMENT Normal [facility] Comment on above: Order Comment: Speci men Type: TISSUE SPECIMENOrdering Facility: [facility] Address: [address] [place] [address] Result Comment: The trichrome stain confirms the preservation of normal liver architecture, and shows no significant pathologic fibrosis. Most of portal tracts contain minimal to mild inflammatory infiltrates with no evidence of bile duct injury or endotheliitis. A few portal tracts contain moderate inflammatory infiltrates, with no evidence of interface activity or bile duct injury, but endotheliitis are identified in two portal tracts. The lobular parenchyma shows reactive/regenerative change with many mitotic hepatocytes. There is no significant hepatocellular necrosis or lobular inflammation. There is mild large droplet macrovesicular steatosis (10%) with no evidence of hepatocellular ballooning. Overall, the hepatocellular parenchyma shows prominent reactive/regenerative change without significant ongoing hepatocellular necrosis. The diagnostic considerations include infection and drug/toxin induced injury. The focal portal change is concerning, but not fully diagnostic of T-cell mediated rejection in this setting. Immunohistochemistry for C4d will be performed and reported in an addendum. The results were communicated to Dr. Rehman at 12:15 pm on September 04, 2022. Laboratory Developed Test (LDT) Disclaimer: Performance characteristics of immunohistochemical, immunofluorescent and chromogenic in-situ hybridization tests have been determined by the performing laboratory within [facility]???s [facility] Pathology and Laboratory Medicine [place] ([facility], [facility], [facility], [facility], [facility], or [facility]) in a manner consistent with CLIA requirements. One or more of these tests have not been cleared or approved by the FDA. [facility] is regulated under CLIA as qualified to perform high-complexity testing. These tests are used for clinical purposes. They should not be regarded as investigational or for research. Positive and negative controls stain appropriately. Performed By: #### S ####[facility] [id number] [address] FINAL DIAGNOSIS Normal [facility] Comment on above: Order Comment: Speci men Type: TISSUE SPECIMENOrdering Facility: [facility] Address: [address] [place] [address] Result Comment: Live r allograft, approximately 4 years 2 months post-transplantation, biopsy: - Liver parenchyma with reactive/regenerative change and focal portal change, indeterminate for T-cell mediated rejection (acute cellular rejection). Performed By: #### S ####[facility] [id number] [address] FINAL PERFORMING LAB Normal [facility] Comment on above: Order Comment: Speci men Type: TISSUE SPECIMENOrdering Facility: [facility] Address: [address] [place] [address] Result Comment: Diag nostic interpretation performed at [facility], [address] [place] [address] CLIA# [id number] Program Host: Jony Gallegos M.D. Performed By: #### S ####[facility] [id number] [address] GROSS DESCRIPTION Normal [facility] Comment on above: Order Comment: Speci men Type: TISSUE SPECIMENOrdering Facility: [facility] Address: [address] [place] [address] Result Comment: A. L IVER TRANSPLANT BIOPSY Received in formalin is one segment of cylindrical tissue measuring 1.7 x 0.1 x 0.1 cm, montanez-orange and of a soft and friable consistency. Totally submitted in one cassette. BC September 03, 2022 5:19 PM Gross examination performed at [facility], [address] [place] [address] Performed By: #### S ####[facility]IA [id number] [place] [address] [facility] [place] Sodium ?Tm Ur-sCncon 023 Sodium Unsp time (U) [Moles/Vol] 82 mmol/L Normal 14-216 [facility] Comment on above: Order Comment: Speci men Type: BLOOD SPECIMEN Ordering Facility: [facility] Address: [address] [place] [address] Performed By: #### 5 763-8, COPPER #### [facility] CLIA [id number] [address] [place] [address] OF [place] TOX SCREEN ROUT URon 023 Amphetamines Confirm (U) [Mass/Vol] Negative Normal Negative [facility] Comment on above: Order Comment: Speci men Type: BLOOD SPECIMEN Ordering Facility: [facility] Address: [address] [place] [address] Result Comment: Cuto ff threshold at 1000 ng/mL. Performed By: #### 5 763-8, COPPER #### [facility] CLIA [id number] [address] [place] [address] [place] BARBITURATES, URINE Negative Normal Negative [facility] Comment on above: Order Comment: Speci men Type: BLOOD SPECIMEN Ordering Facility: [facility] Address: [address] [place] [address] Result Comment: Cuto ff threshold at 200 ng/mL. Performed By: #### 5 763-8, COPPER #### [facility] CLIA [id number] [address] [place] [address] [place] BENZODIAZEPINES, UR Negative Normal Negative [facility] Comment on above: Order Comment: Speci men Type: BLOOD SPECIMEN Ordering Facility: [facility] Address: [address] [place] [address] Result Comment: Cuto ff threshold at 200 ng/mL. Performed By: #### 5 763-8, COPPER #### [facility] CLIA [id number] [address] [place] [address] [place] CANNABINOIDS,URINE Negative Normal Negative [facility] Comment on above: Order Comment: Speci men Type: BLOOD SPECIMEN Ordering Facility: [facility] Address: [address] [place] [address] Result Comment: Cuto ff threshold at 50 ng/mL. Performed By: #### 5 763-8, COPPER #### [facility] CLIA [id number] [address] [place] [address] [place] Cocaine Ql (U) Negative Normal Negative [facility] Comment on above: Order Comment: Speci men Type: BLOOD SPECIMEN Ordering Facility: [facility] Address: [address] [place] [address] Result Comment: Cuto ff threshold at 300 ng/mL. Performed By: #### 5 763-8, COPPER #### [facility] CLIA [id number] [address] [place] [address] [place] Ethanol (U) [Mass/Vol] <11 Normal <11 [facility] Comment on above: Order Comment: Speci men Type: BLOOD SPECIMEN Ordering Facility: [facility] Address: [address] [place] [address] Performed By: #### 5 763-8, COPPER #### [facility] CLIA [id number] [address] [place] [address] [place] Opiates Screen Ql (U) Positive Abnormal Negative [facility] Comment on above: Order Comment: Speci men Type: BLOOD SPECIMEN Ordering Facility: [facility] Address: [address] [place] [address] Result Comment: Cuto ff threshold at 300 ng/mL. Performed By: #### 5 763-8, COPPER #### [facility] CLIA [id number] [address] [place] [address] [place] oxyCODONE cutoff Screen (U) [Mass/Vol] Negative Normal Negative [facility] Comment on above: Order Comment: Speci men Type: BLOOD SPECIMEN Ordering Facility: [facility] Address: [address] [place] [address] Result Comment: Cuto ff threshold at 100 ng/mL. Performed By: #### 5 763-8, COPPER #### [facility] CLIA [id number] [address] [place] [address] [place] Phencyclidine Ql (U) Negative Normal Negative [facility] Comment on above: Order Comment: Speci men Type: BLOOD SPECIMEN Ordering Facility: [facility] Address: [address] [place] [address] Result Comment: Cuto ff threshold at 25 ng/mL. Performed By: #### 5 763-8, COPPER #### [facility] CLIA [id number] [address] [place] [address] [place] TYPE + SCREENon 09-03-2022 ABO A Normal [facility] Comment on above: Order Comment: Speci men Type: BLOOD SPECIMENOrdering Facility: [facility] Address: [address] [place] [address] Performed By: #### T SCR ####[facility] [id number] [place] [address] [place] HISTORICAL AB SCR STATUS Positive Abnormal [facility] Comment on above: Order Comment: Speci men Type: BLOOD SPECIMENOrdering Facility: [facility] Address: [address] [place] [address] Performed By: #### T SCR ####[facility] [id number] [place] [address] [place] Rh Nom (Bld) Negative Normal [facility] Comment on above: Order Comment: Speci men Type: BLOOD SPECIMENOrdering Facility: [facility] Address: [address] [place] [address] Performed By: #### T SCR ####[facility] [id number] [place] [id number] [facility] [place] TYPE AND SCREEN EXPIRATION 09/06/2022 23:59 Normal [facility] Comment on above: Order Comment: Speci men Type: BLOOD SPECIMENOrdering Facility: [facility] Address: [address] [place] [address] Performed By: #### T SCR ####[facility]ANKCLIA [id number] [address] Tacrolimus Bld-mCncon 2022 Tacrolimus (Bld) [Mass/Vol] 9.2 ng/mL Normal 5.0-20.0 [facility] Comment on above: Order Comment: Speci men Type: BLOOD SPECIMEN Ordering Facility: [facility] Address: [address] [place], [place] [address] Result Comment: Thes e reference ranges are provided as a general recommendation. Individualized target levels for a given patient will depend on many factors (including the type of organ transplant, time since transplantation, concurrent medications, and other clinical factors), and should be assessed by those health care providers experienced in the management of immunosuppression. Reference ranges and high/low indicator flags are provided as general guidelines only. The treating physician must determine appropriate target levels/dosing based on the specific clinical situation. Test performed by chemiluminescent immunoassay using [employer]. Performed By: #### 5 0189-0, 93108-9, 2132-9 #### [facility] CLIA [id number] [address] [facility] [place] [id number] [place] US BIOPSY LIVERon 09-03-2022 US BIOPSY LIVER * * *Final Report* * * DATE OF EXAM: Sep 03 2022 4:01PM [facility] 1073 - BIOPSY LIVER / PROCEDURE REASON: Liver transplant * * * * Physician Interpretation * * * * PROCEDURE PERFORMED: ULTRASOUND GUIDED RANDOM LIVER TRANSPLANT BIOPSY ON 09/03/2022 PRE-PROCEDURE DIAGNOSIS: Status post right hepatic lobe transplant, prior history of rejection. POST-PROCEDURE DIAGNOSIS: Status post right hepatic lobe transplant, prior history of rejection INDICATION FOR PROCEDURE: The patient is a 36 years old Male who presents with liver transplant, prior history of rejection. STAFF RADIOLOGIST: Dr. Shepherd HARVEST CONTRACTOR(S): None CONSENT: The risks, benefits, treatment options, potential complications and personnel involved were discussed with the patient. All questions were answered and consent was obtained. The patient indicated he was willing to proceed. The staff physician personally verified consent. TIME OUT: A time out was performed immediately prior to procedure start with the nursing, anesthesia and interventional team, correctly identifying the patient name, date of , procedure, anatomy (including marking of site and side), patient position, procedure consent form, relevant diagnostic and radiology test results, antibiotic administration, safety precautions, and procedure-specific equipment needs. RESULT: PROCEDURE: After performing the time out, the liver was localized with ultrasound, images were obtained and archived. The right upper quadrant was prepped and draped in the usual sterile fashion. Under direct ultrasound guidance, 1 pass was made into the liver using an 18 gauge cutting needle. The procedure was performed by the: attending radiologist, without an assistant women's soccer coach. The attending radiologist performed the following procedural activities: All ANESTHESIA/SEDATION: Conscious sedation was achieved using 2 mg of versed and 100 mcg of fentanyl intravenously. Local anesthesia was achieved utilizing 10 cc 1% percent lidocaine. Vital signs were monitored by the nurse. START TIME/TIMEOUT TIME: 1434 hours END TIME: 1439 hours INTRA-SERVICE (SEDATION) TIME: 14 minutes PATIENT MONITORING: The staff physician personally supervised and directed an independent trained observer who assisted in monitoring the patient?s level of consciousness and physiological status throughout the procedure. COMPLICATIONS: None SIGN-OUT DISCUSSION: Completed ESTIMATED BLOOD LOSS: None SPECIMENS: 1 core biopsy specimen(s) was/were sent to surgical pathology for analysis BIOPSY DEVICE: 18 gauge Corvocet core biopsy needle. IMPRESSION: ULTRASOUND GUIDED RANDOM LIVER TRANSPLANT BIOPSY DESCRIBED Medical Coding Manager: GUILLE Transcribe Date/Time: Sep 03 2022 5:36P Dictated by : HOWARD SHEPHERD MD This examination was interpreted and the report reviewed and electronically signed by: HOWARD SHEPHERD MD on Sep 03 2022 5:38PM EST [id number] Normal [facility] Urinalysis complete panel (U )on 09-03-2022 Bilirubin Ql (U) 1+ Abnormal Negative [facility] Comment on above: Order Comment: Speci men Type: BLOOD SPECIMEN Ordering [facility] Address: [address] [place], [place] [id number] Result Comment: Sugg est correlation with clinical findings and serum bilirubin if clinically indicated. Performed By: #### 2 4323-8 #### [facility] CLIA [id number] [address] [place] [address] [place] Clarity (Unsp spec) Clear Normal Clear [facility] Comment on above: Order Comment: Speci men Type: BLOOD SPECIMEN Ordering Facility: [facility] Address: [address] [place] [address] Performed By: #### 2 4323-8 #### [facility] CLIA [id number] [address] [place] [address] [place] Color (U) Yellow Normal Yellow [facility] Comment on above: Order Comment: Speci men Type: BLOOD SPECIMEN Ordering [facility] Address: [address] Performed By: #### 2 4323-8 #### [facility] CLIA [id number] [address] [place] [address] [place] Glucose Test strip (U) [Mass/Vol] Negative Normal Trace, Negative [facility] Comment on above: Order Comment: Speci men Type: BLOOD SPECIMEN Ordering [facility]: [facility] Address: [address] Performed By: #### 2 4323-8 #### [facility] CLIA [id number] [address] [place] [address] [place] Hemoglobin Ql (U) Negative Normal Negative, Trace [facility] Comment on above: Order Comment: Speci men Type: BLOOD SPECIMEN Ordering Facility: [facility] Address: [address] Performed By: #### 2 4323-8 #### [facility] CLIA [id number] [address] [place] [address] [place] Ketones Ql (U) 1+ Abnormal Trace, Negative [facility] Comment on above: Order Comment: Speci men Type: BLOOD SPECIMEN Ordering Facility: [facility] Address: [address] [place] [address] Performed By: #### 2 4323-8 #### [facility] CLIA [id number] [address] [place] [address] [place] Leukocyte esterase Test strip Ql (U) Negative Normal Negative, 25 Daniel/uL [facility] Comment on above: Order Comment: Speci men Type: BLOOD SPECIMEN Ordering Facility: [facility] Address: [address] [place] [address] Performed By: #### 2 4323-8 #### [facility] CLIA [id number] [address] [place] [address] [place] Nitrite Ql (U) Negative Normal Negative [facility] Comment on above: Order Comment: Speci men Type: BLOOD SPECIMEN Ordering Facility: [facility] Address: [address] [place] [address] Performed By: #### 2 4323-8 #### [facility] CLIA [id number] [address] [place] [address] [place] pH (U) 6.0 [pH] Normal 5.0-8.0 [facility] Comment on above: Order Comment: Speci men Type: BLOOD SPECIMEN Ordering Facility: [facility] Address: [address] [place], [place] [address] Performed By: #### 2 4323-8 #### [facility] CLIA [id number] [address] [place] [address] [place] Protein (U) [Mass/Vol] Trace Normal Trace , Negative [facility] Comment on above: Order Comment: Speci men Type: BLOOD SPECIMEN Ordering Facility: [facility] Address: [address] Performed By: #### 2 4323-8 #### [facility] CLIA [id number] [address] [place] [address] [place] RBC LM.HPF (Urine sed) [#/Area] 0-3 /HPF Normal 0-3 /HPF [facility] Comment on above: Order Comment: Speci men Type: BLOOD SPECIMEN Ordering Facility: [facility] Address: [address] [place], [place] [address] Performed By: #### 2 4323-8 #### [facility] CLIA [id number] [address] [place] [address] [place] Specific gravity (U) [Rel density] 1.009 Normal 1.005-1.030 [facility] Comment on above: Order Comment: Speci men Type: BLOOD SPECIMEN Ordering Facility[facility] Address: [address] [place], [place] [address] Performed By: #### 2 4323-8 #### [facility] CLIA [id number] [address] [place] [address] [place] Urobilinogen Ql (U) 1+ Abnormal Negative [facility] Comment on above: Order Comment: Speci men Type: BLOOD SPECIMEN Ordering Facility: [facility] Address: [address] [place], [place] [address] Performed By: #### 2 4323-8 #### [facility] CLIA [id number] [address] [place] [address] [place] WBC LM.HPF (Urine sed) [#/Area] 0-5 /HPF Normal 0-5 /HPF [facility] Comment on above: Order Comment: Speci men Type: BLOOD SPECIMEN Ordering Facility: [facility] Address: [address] [place], [place] [address] Performed By: #### 2 4323-8 #### [facility] CLIA [id number] [address] [place] [address] [place] Vit B12 SerPl-ncon 023 Cobalamin (Vitamin B12) [Mass/Vol] 802 pg/mL Normal 232-1245 [facility] Comment on above: Order Comment: Speci men Type: BLOOD SPECIMEN Ordering Facility: [facility] Address: [address] [place] [address] Performed By: #### 5 0189-0, 09898-3, 2132-9 #### [facility] CLIA [id number] [address] [place] [address] [place] ALPHA-1 ANTITRYPSIN GENOon 0 09-02-2022 HA1AT REVIEWED BY Radha [facility] Comment on above: Order Comment: Speci mercy Type: BLOOD SPECIMENOrdering Facility: [facility] Address: [address] [place] [address] Result Comment: [facility] a-1 Antitrypsin Genotyping Laboratory Accession Number: [id number] Result: No Variant Detected in SERPINA1 (PI*MM) Interpretation: DNA testing indicates that this patient does not have the S, Z, F, or I alleles of SERPINA1, the alpha-1 antitrypsin gene. Guidance: Genetic consultation and counseling of at risk family members regarding this laboratory testing may be considered as clinically appropriate. Patients with no variants of SERPINA1 typically have serum alpha-1 antitrypsin levels between 102-254 mg/dL. If this patient has a serum alpha-1 antitrypsin level that is not consistent with this genotype and alpha-1 antitrypsin deficiency caused by a rare variant is clinically suspected, consider performing SERPINA1 gene sequencing. Methodology: Isolated genomic DNA from the patient's blood specimen is evaluated for four variants in the alpha-1 antitrypsin gene SERPINA1 (RefSeq [id number]; GRCh38/hg38) by multiplex polymerase chain reaction (PCR) followed by melting curve analysis. These included the two most common pathogenic variants: S (c.863A>T, p.Fjr380Iif, g.[id number]), Z (c.1096G>A, p.Aan288Nee, g.30146329), and the rarer variants: F (c.739C>T, p.Kju951Tfh, g.16012372), I (c.187C>T, p.Kjw92Uyb, g.22174009). Limitations: This Laboratory Developed Test (LDT) is designed to detect the S, Z, F and I alleles. The S and Z alleles comprise 95% of non-wild type genotypes. Uncommon variants or Single Nucleotide Polymorphisms may affect binding of LightMix or LightSNiP probes and may result in a false negative, false positive, or indeterminate result. Absence of the S, Z, F, and I alleles is interpreted as PI*MM genotype. However, there are over 100 known rare variants of SERPINA1 that are not detected by this LDT. Therefore, correlation of the genotype with the patient's serum alpha-1 antitrypsin level and clinical manifestations is strongly recommended. Frequency of S, Z, F and I Alleles in the general population: S: Heterozygous 2%; Homozygous 0.04% Z: Heterozygous 1%; Homozygous 0.01% F: Heterozygous 0.3%; Homozygous 0.001% I: Heterozygous 0.1%; Homozygous unknown Allele frequency information was gathered from the [employer] ([employer]) and includes data from , , , and populations (supporting data in references). Disclaimer: This test was developed and its performance characteristics determined by [facility]'s [facility] [place] ([facility]). It has not been cleared or approved by the FDA. [facility] is regulated under CLIA as certified to perform high- complexity testing. This test is used for clinical purposes. It should not be regarded as investigational or for research. Testing and interpretation performed at [facility], [address] [place], [place] [address]. CLIA Number: [id number] References: 1) Kun RA, Manjit G, Radha ML, Alexandr M, Domingo CE, K, Tia CABEZAS, Edilma SL, Aiden JM, Luz Maria RayK, Mateusz C, Taina J. The Diagnosis and Management of Alpha-1 Antritrypsin Deficiency in the Adult. Chronic Obstr Pulm Dis. 2016 Dec 30;3:668-682. 2) Andrew JA, Vickey ON, Bossman ER, Jackson DG. a1-Antitrypsin phenotypes and associated serum protein concentrations in a large clinical population. Chest.2013 Oct;143(4):1000-8. 3) Jalen Granda, Fei CR, Fina FJ, Michel SJ, Agapito AF. Molecular characterisation of three tblgg-4-fqwcpkzdhzc deficiency variants: proteinase inhibitor (Pi) nullcardiff (Yug936----Tis); PiMmalton (Bhm89----epastuwi) and PiI (Hlj17----Bvr). Hum Vonnie. 1989 Jun;84(1):55-8. 4) Reg EK and Kun SANTANA. Clinical practice. Alpha1-antitrypsin deficiency. N Engl J Med. 2008Jan 18;360(61)0223-56. 5) Kimi NJ, Jovan F, Lindy SANTANA. The significance of the F variant of ysncp-4-sviqifzsmpi and unique case report of a PiFF homozygote. [facility] Pulm Med. 2013Mar 02;14:132. 6) Luz Maria RayK, Michelle FL, and Dharmesh Rosado. Alpha-1 Antitrypsin Deficiency. 2005May 22 [Updated 2017 August 14]. In: Moises RA, Zacarias MP, Kwan TO, et al., editors. GeneReviews [Internet]. Crocheron (MD): formerly [facility]; 5340-3267. Available from: http://www.ncbi.nlm.nih.gov/books/QOV1050/ As reviewed by Isabel Breaux, PhD, FACMG Performed By: #### H A1AT ####[facility] [id number] [address] [place] LENNY BY IFA WITH REFLEXon Nuclear Ab IF (S) [Titer] Negative Normal Negative [facility] Comment on above: Order Comment: Speci men Type: BLOOD SPECIMEN Ordering Facility: [facility] Address: [address] [place] [address] Result Comment: Anti -nuclear antibody test is used as an aid in diagnosis of systemic autoimmune diseases. Where positive and clinically warranted, follow-up using disease-specific testing is recommended. Low positive titers are not uncommon with advanced age, certain chronic infections, and malignancies among others. Test methodology: Indirect fluorescence immunoassay (IFA) using HEp-2 cells. Performed By: #### 5 763-8, COPPER #### [facility] CLIA [id number] [address] [place] [address] [place] CBC W Ordered Manual Differe ntial panel (Bld)on 09-02-2022 Basophils (Bld) [#/Vol] 10*3/uL Normal <0.11 [facility] Comment on above: Order Comment: Speci men Type: BLOOD SPECIMENOrdering Facility: [facility] Address: [address] [place] [address] Performed By: #### S TFREV, 02189-2, [id number] ####[facility]IA [id number] [place] [address] [place] Basophils/100 WBC (Bld) 0.2 % Normal [facility] Comment on above: Order Comment: Speci men Type: BLOOD SPECIMENOrdering Facility: [facility] Address: [address] [place] [address] Performed By: #### S TFREV, 03294-5, [id number] ####[facility]IA [id number] [place] [address] [place] Differential cell count method Nom (Bld) Auto Normal [facility] Comment on above: Order Comment: Speci men Type: BLOOD SPECIMENOrdering Facility: [facility] Address: [address] [address] Performed By: #### S TFREV, 39575-2, [id number] ####[facility]CLIA [id number] [place] [address] [place] Eosinophils (Bld) [#/Vol] 0.05 10*3/uL Normal <0.46 [facility] Comment on above: Order Comment: Speci men Type: BLOOD SPECIMENOrdering Facility: [facility] Address: [address] [address] Performed By: #### S TFREV, 82007-4, [id number] ####[facility]CLIA [id number] [place] [address] [place] Eosinophils/100 WBC (Bld) 1.2 % Normal [facility] Comment on above: Order Comment: Speci men Type: BLOOD SPECIMENOrdering Facility: [facility] Address: [address] [place] [address] Performed By: #### S TFREV, 01705-7, [id number] ####[facility] [id number] [place] [address] [place] Erythrocyte distribution width (RBC) [Ratio] 16.9 % High 11.5-15.0 [facility] Comment on above: Order Comment: Speci men Type: BLOOD SPECIMENOrdering Facility: [facility] Address: [address] [place] [address] Performed By: #### S TFREV, 90154-5, [id number] ####[facility]IA [id number] [place] [address] [place] Hematocrit (Bld) [Volume fraction] 36.7 % Low 39.0-51.0 [facility] Comment on above: Order Comment: Speci men Type: BLOOD SPECIMENOrdering Facility: [facility] Address: [address] [place] [address] Performed By: #### S TFREV, 96620-5, [id number] ####[facility]IA [id number] [place] [address] [place] Hemoglobin (Bld) [Mass/Vol] 12.9 g/dL Low 13.0-17.0 [facility] Comment on above: Order Comment: Speci men Type: BLOOD SPECIMENOrdering Facility: [facility] Address: [address] [address] Performed By: #### S TFREV, 29537-0, [id number] ####[facility]CLIA [id number] [place] [address] [place] Immature granulocytes (Bld) [#/Vol] 0.05 10*3/uL Normal <0.10 [facility] Comment on above: Order Comment: Speci men Type: BLOOD SPECIMENOrdering Facility: [facility] Address: [address] [address] Performed By: #### S TFREV, 24853-4, [id number] ####[facility]CLIA [id number] [place] [address] [place] Immature granulocytes/100 WBC (Bld) 1.2 % Normal [facility] Comment on above: Order Comment: Speci men Type: BLOOD SPECIMENOrdering Facility: [facility] Address: [address] [place] [address] Performed By: #### S TFREV, 59112-6, [id number] ####[facility]CLIA [id number] [place] [address] [place] Lymphocytes (Bld) [#/Vol] 0.31 10*3/uL Low 1.00-4.00 [facility] Comment on above: Order Comment: Speci men Type: BLOOD SPECIMENOrdering Facility: [facility] Address: [address] [address] Performed By: #### S TFREV, 84180-4, [id number] ####[facility]CLIA [id number] [place] [address] [place] Lymphocytes/100 WBC (Bld) 7.4 % Normal [facility] Comment on above: Order Comment: Speci men Type: BLOOD SPECIMENOrdering Facility: [facility] Address: [address] [place], [place] [address] Performed By: #### S TFREV, 69821-8, [id number] ####[facility]CLIA [id number] [place] [address] [place] [facility] MCH (RBC) [Entitic mass] 30.0 pg Normal 26.0-34.0 [facility] Comment on above: Order Comment: Speci men Type: BLOOD SPECIMENOrdering Facility: [facility] Address: [address] [place], [place] [address] Performed By: #### S TFREV, 47739-7, [id number] ####[facility]CLIA [id number] [address] [place] MCHC (RBC) [Mass/Vol] 35.1 g/dL Normal 30.5-36.0 [facility] Comment on above: Order Comment: Speci men Type: BLOOD SPECIMENOrdering Facility: [facility] Address: [address] [place], [place] [address] Performed By: #### S TFREV, 75523-0, [id number] ####[facility]CLIA [id number] [place] [address] [place] MCV (RBC) [Entitic vol] 85.3 fL Normal 80.0-100.0 [facility] Comment on above: Order Comment: Speci men Type: BLOOD SPECIMENOrdering Facility: [facility] Address: [address] [place] [address] Performed By: #### S TFREV, 97939-3, [id number] ####[facility]CLIA [id number] [place] [address] [place] [facility] [place] Monocytes (Bld) [#/Vol] 0.33 10*3/uL Normal <0.87 [facility] Comment on above: Order Comment: Speci men Type: BLOOD SPECIMENOrdering Facility: [facility] Address: [address] [place], [place] [address] Performed By: #### S TFREV, 54342-7, [id number] ####[facility]CLIA [id number] [place] [address] [place] Monocytes/100 WBC (Bld) 7.9 % Normal [facility] Comment on above: Order Comment: Speci men Type: BLOOD SPECIMENOrdering Facility: [facility] Address: [address] [place] [address] Performed By: #### S TFREV, 09535-7, [id number] ####[facility]CLIA [id number] [place] [address] [place] Neutrophils (Bld) [#/Vol] 3.42 10*3/uL Normal 1.45-7.50 [facility] Comment on above: Order Comment: Speci men Type: BLOOD SPECIMENOrdering Facility: [facility] Address: [address] [place], [place] [address] Performed By: #### S TFREV, 77385-6, [id number] ####[facility]CLIA [id number] [place] [address] [place] Neutrophils/100 WBC (Bld) 82.1 % Normal [facility] Comment on above: Order Comment: Speci men Type: BLOOD SPECIMENOrdering Facility: [facility] Address: [address] [place] [address] Performed By: #### S TFREV, 79298-3, [id number] ####[facility]CLIA [id number] [place] [address] [place] Nucleated RBC (Bld) [#/Vol] 10*3/uL Normal <0.01 [facility] Comment on above: Order Comment: Speci men Type: BLOOD SPECIMENOrdering Facility: [facility] Address: [address] [place], [place] [address] Performed By: #### S TFREV, 43458-3, [id number] ####[facility]IA [id number] [place] [address] [place] Nucleated RBC/100 WBC (Bld) [Ratio] 0.0 /100 WBC Normal [facility] Comment on above: Order Comment: Speci men Type: BLOOD SPECIMENOrdering Facility: [facility] Address: [address] [place] [address] Performed By: #### S CECIL, 62176-0, [id number] ####[facility]IA [id number] [place] [address] [place] Platelet mean volume (Bld) [Entitic vol] 12.1 fL Normal 9.0-12.7 [facility] Comment on above: Order Comment: Speci men Type: BLOOD SPECIMENOrdering Facility: [facility] Address: [address] [place] [address] Performed By: #### S CECIL, 98044-6, [id number] ####[facility] [id number] [place] [address] [place] Platelets (Bld) [#/Vol] 38 10*3/uL Low 150-400 [facility] Comment on above: Order Comment: Speci men Type: BLOOD SPECIMENOrdering Facility: [facility] Address: [address] [place] [address] Result Comment: No c lot detected. Performed By: #### S CECIL, 26848-1, [id number] ####[facility]IA [id number] [place] [address] [place] RBC (Bld) [#/Vol] 4.30 10*6/uL Normal 4.20-6.00 [facility] Comment on above: Order Comment: Speci men Type: BLOOD SPECIMENOrdering Facility: [facility] Address: [address] [place] [address] Performed By: #### S CECIL, 62716-1, [id number] ####[facility] LABCLIA [id number] [place] [address] [place] WBC (Bld) [#/Vol] 4.17 10*3/uL Normal 3.70-11.00 [facility] Comment on above: Order Comment: Speci men Type: BLOOD SPECIMENOrdering Facility: [facility] Address: [address] [place] [address] Performed By: #### S TFREV, 82289-0, [id number] ####[facility]CLIA [id number] [place] [address] [place] CBC panel Auto (Bld)on 09-02 Erythrocyte distribution width (RBC) [Ratio] 16.5 % High 11.5-15.0 [facility] Comment on above: Order Comment: Speci men Type: BLOOD SPECIMENOrdering Facility: [facility] Address: [address] [place] [address] Performed By: #### 5 8410-2, 32053-8 ####[facility] LABIA [id number] [address] [place] Hematocrit (Bld) [Volume fraction] 35.5 % Low 39.0-51.0 [facility] Comment on above: Order Comment: Speci men Type: BLOOD SPECIMENOrdering Facility: [facility] Address: [address] [place] [address] Performed By: #### 5 8410-2, 51511-1 ####[facility]CLIA [id number] [address] [place] Hemoglobin (Bld) [Mass/Vol] 12.6 g/dL Low 13.0-17.0 [facility] Comment on above: Order Comment: Speci men Type: BLOOD SPECIMENOrdering Facility: [facility] Address: [address] [place] [address] Performed By: #### 5 8410-2, 15005-7 ####[facility]CLIA [id number] [place] [address] [place] MCH (RBC) [Entitic mass] 29.9 pg Normal 26.0-34.0 [facility] Comment on above: Order Comment: Speci men Type: BLOOD SPECIMENOrdering Facility: [facility] Address: [address] Performed By: #### 5 8410-2, 50964-8 ####[facility]IA [id number] [place] [address] [place] MCHC (RBC) [Mass/Vol] 35.5 g/dL Normal 30.5-36.0 [facility] Comment on above: Order Comment: Speci men Type: BLOOD SPECIMENOrdering Facility: [facility] Address: [address] [place], [place] [address] Performed By: #### 5 8410-2, 72638-1 ####[facility]IA [id number] [place] [address] [place] MCV (RBC) [Entitic vol] 84.1 fL Normal 80.0-100.0 [facility] Comment on above: Order Comment: Speci men Type: BLOOD SPECIMENOrdering Facility: [facility] Address: [address] [place] [address] Performed By: #### 5 8410-2, 11258-3 ####[facility]IA [id number] [address] [place] Nucleated RBC (Bld) [#/Vol] 10*3/uL Normal <0.01 [facility] Comment on above: Order Comment: Speci men Type: BLOOD SPECIMENOrdering Facility: [facility] Address: [address] [place] [address] Performed By: #### 5 8410-2, 45739-9 ####[facility]IA [id number] [place] [address] [place] Platelet mean volume (Bld) [Entitic vol] 11.7 fL Normal 9.0-12.7 [facility] Comment on above: Order Comment: Speci men Type: BLOOD SPECIMENOrdering Facility: [facility] Address: [address] [place] [address] Performed By: #### 5 8410-2, 04996-8 ####[facility]CLIA [id number] [place] [address] [place] Platelets (Bld) [#/Vol] 40 10*3/uL Low 150-400 [facility] Comment on above: Order Comment: Speci men Type: BLOOD SPECIMENOrdering Facility: [facility] Address: [address] [place] [address] Result Comment: Resu lts checked and verified.No clot detected. Performed By: #### 5 8410-2, 03039-9 ####[facility]CLIA [id number] [place] [address] [place] RBC (Bld) [#/Vol] 4.22 10*6/uL Normal 4.20-6.00 [facility] Comment on above: Order Comment: Speci men Type: BLOOD SPECIMENOrdering Facility: [facility] Address: [address] [place] [address] Performed By: #### 5 8410-2, 52698-7 ####[facility] LABCLIA [id number] [place] [address] [place] WBC (Bld) [#/Vol] 4.69 10*3/uL Normal 3.70-11.00 [facility] Comment on above: Order Comment: Speci men Type: BLOOD SPECIMENOrdering Facility: [facility] Address: [address] [place] [address] Performed By: #### 5 8410-2, 82028-3 ####[facility] LABCLIA [id number] [address] [place] CMV DNA DETECTION AND QUANTo n 09-02-2022 CMV DNA NOLBERTO+probe Qn (P) Not detected Normal Not Detected [facility] Comment on above: Order Comment: Speci men Type: BLOOD SPECIMENOrdering Facility: [facility] Address: [address] [place] [address] Performed By: #### C MVQNT ####[facility]CLIA [id number] [place] [address] [place] Ceruloplasmin SerPl-mCncon 0 09-02-2022 Ceruloplasmin [Mass/Vol] 17 mg/dL Normal 15-30 [facility] Comment on above: Order Comment: Speci men Type: BLOOD SPECIMEN [facility] Address: [address] [place] [address] Performed By: #### V ITB6 #### [id number] [address] [place] [address] Comprehensive metabolic 2000 panelon 09-02-2022 Albumin [Mass/Vol] 3.7 g/dL Low 3.9-4.9 [facility] Comment on above: Order Comment: Speci men Type: BLOOD SPECIMEN [facility] Address: [address] [place] [address] Performed By: #### 5 763-8, COPPER #### [facility] CLIA [id number] [address] [place] [address] [place] ALP [Catalytic activity/Vol] 98 U/L Normal 38-113 [facility] Comment on above: Order Comment: Speci men Type: BLOOD SPECIMEN [facility] Address: [address] Performed By: #### 5 763-8, COPPER #### [facility] CLIA [id number] [address] [place] [address] [place] ALT [Catalytic activity/Vol] 175 U/L High 10-54 [facility] Comment on above: Order Comment: Speci men Type: BLOOD SPECIMEN [facility] Address: [address] Performed By: #### 5 763-8, COPPER #### [facility] CLIA [id number] [address] [id number] [place] Anion gap [Moles/Vol] 13 mmol/L Normal 9-18 [facility] Comment on above: Order Comment: Speci men Type: BLOOD SPECIMEN [facility] Address: [address] Performed By: #### 5 763-8, COPPER #### [facility] CLIA [id number] [address] [place] [address] [place] AST [Catalytic activity/Vol] 318 U/L High 14-40 [facility] Comment on above: Order Comment: Speci men Type: BLOOD SPECIMEN [facility] Address: [address] Performed By: #### 5 763-8, COPPER #### [facility] CLIA [id number] [address] [place] [address] [place] Bilirubin [Mass/Vol] 10.9 mg/dL High 0.2-1.3 [facility] Comment on above: Order Comment: Speci men Type: BLOOD SPECIMEN [facility] Address: [address] Performed By: #### 5 763-8, COPPER #### [facility] CLIA [id number] [address] [place] [address] [place] Calcium [Mass/Vol] 8.9 mg/dL Normal 8.5-10.2 [facility] Comment on above: Order Comment: Speci men Type: BLOOD SPECIMEN [facility] Address: [address] Performed By: #### 5 763-8, COPPER #### [facility] CLIA [id number] [address] [place] [address] [place] Chloride [Moles/Vol] 99 mmol/L Normal 97-105 [facility] Comment on above: Order Comment: Speci men Type: BLOOD SPECIMEN Ordering Facility: [facility] Address: [address] [place], [place] [address] Performed By: #### 5 763-8, COPPER #### [facility] CLIA [id number] [address] [place] [address] [place] CO2 [Moles/Vol] 20 mmol/L Low 22-30 [facility] Comment on above: Order Comment: Speci men Type: BLOOD SPECIMEN Ordering Facility: [facility] Address: [address] [place], [place] [address] Performed By: #### 5 763-8, COPPER #### [facility] CLIA [id number] [address] [place] [address] [place] Creatinine [Mass/Vol] 1.18 mg/dL Normal 0.73-1.22 [facility] Comment on above: Order Comment: Speci men Type: BLOOD SPECIMEN Ordering Facility: [facility] Address: [address] [place], [place] [address] Performed By: #### 5 763-8, COPPER #### [facility] CLIA [id number] [facility] [place] [address] [place] ESTIMATED GLOMERULAR FILTRATION RATE 82 mL/min/1.73m??? Normal >=60 [facility] Comment on above: Order Comment: Speci men Type: BLOOD SPECIMEN Ordering Facility: [facility] Address: [address] [place], [place] [address] Result Comment: Brenda mated Glomerular Filtration Rate (eGFR) is calculated using the 2020 CKD-EPI creatinine equation. This equation utilizes serum creatinine, sex, and age as parameters. The creatinine assay has traceable calibration to isotope dilution-mass spectrometry. Refer to KDIGO guidelines for clinical interpretation. In patients with unstable renal function, e.g. those with acute kidney injury, the eGFR may not accurately reflect actual GFR. Performed By: #### 5 763-8, COPPER #### [facility] CLIA [id number] [address] [address] [place] Glucose [Mass/Vol] 106 mg/dL High 74-99 [facility] Comment on above: Order Comment: Noe madrid Type: BLOOD SPECIMEN Ordering Facility: [facility] Address: [address] [place] [address] Result Comment: The [place] Diabetes Association (ADA) provides guidance for cutoff values for fasting glucose and random glucose. The ADA defines fasting as no caloric intake for at least 8 hours. Fasting plasma glucose results between 100 to 125 mg/dL indicate increased risk for diabetes (prediabetes). Fasting plasma glucose results greater than or equal to 126 mg/dL meet the criteria for diagnosis of diabetes. In the absence of unequivocal hyperglycemia, results should be confirmed by repeat testing. In a patient with classic symptoms of hyperglycemia or hyperglycemic crisis, random plasma glucose results greater than or equal to 200 mg/dL meet the criteria for diagnosis of diabetes. Reference: Standards of Medical Care in Diabetes 2016, [place] Diabetes Association. Diabetes Care. 2016.39(Suppl 1). Performed By: #### 5 763-8, COPPER #### [facility] CLIA [id number] [address] [place] [address] [place] Potassium [Moles/Vol] 3.7 mmol/L Normal 3.7-5.1 [facility] Comment on above: Order Comment: Noe madrid Type: BLOOD SPECIMEN Ordering Facility: [facility] Address: [address] [place] [address] Performed By: #### 5 763-8, COPPER #### [facility] CLIA [id number] [address] [address] [place] Protein [Mass/Vol] 6.0 g/dL Low 6.3-8.0 [facility] Comment on above: Order Comment: Speci men Type: BLOOD SPECIMEN Ordering Facility: [facility] Address: [address] [place] [address] Performed By: #### 5 763-8, COPPER #### [facility] CLIA [id number] [address] [place] [address] [place] Sodium [Moles/Vol] 132 mmol/L Low 136-144 [facility] Comment on above: Order Comment: Speci men Type: BLOOD SPECIMEN Ordering Facility: [facility] Address: [address] [place] [address] Performed By: #### 5 763-8, COPPER #### [facility] CLIA [id number] [address] [place] [address] [place] Urea nitrogen [Mass/Vol] 8 mg/dL Low 9-24 [facility] Comment on above: Order Comment: Speci men Type: BLOOD SPECIMEN Ordering Facility: [facility] Address: [address] [place] [address] Performed By: #### 5 763-8, COPPER #### [facility] CLIA [id number] [address] [place] [address] [place] EBV capsid IgM Qn (S)on EBV VCA IGM, QUAL Negative Normal Negative [facility] Comment on above: Order Comment: Speci men Type: BLOOD SPECIMENOrdering Facility: [facility] Address: [address] [place] [address] Result Comment: No s erological evidence of recent EBV infection. Performed By: #### 7 886-5, 2284-8, VZVG2 ####[facility] [id number] [place] [address] [place] CLARK IRENE PANELon 023 EBV NA AB, QUAL Positive Abnormal Negative [facility] Comment on above: Order Comment: Speci men Type: BLOOD SPECIMEN Ordering Facility: [facility] Address: [address] Performed By: #### 2 4323-8 #### [facility] CLIA [id number] [address] [place] [address] [place] EBV VCA IGG, QUAL Positive Abnormal Negative [facility] Comment on above: Order Comment: Speci men Type: BLOOD SPECIMEN Ordering Facility: [facility] Address: [address] [place] [address] Performed By: #### 2 4323-8 #### [facility] CLIA [id number] [address] [place] [address] [place] EBV VCA IGM, QUAL Negative Normal Negative [facility] Comment on above: Order Comment: Speci men Type: BLOOD SPECIMEN Ordering Facility: [facility] Address: [address] [place] [address] Performed By: #### 2 4323-8 #### [facility] CLIA [id number] [address] [place] [address] [facility] [place] INTERPRETATION (EBVPNL) Past Infection. EBV panel interpretation is a general guide that is meant to capture most, but not all, of the possible clinical scenarios. Non-specific reactivities are not uncommon especially with equivocal results. Should the overall interpretation not be consistent with the clinical picture, please contact the medical records director of the test for assistance. Normal [facility] Comment on above: Order Comment: Speci men Type: BLOOD SPECIMEN Ordering Facility: [facility] Address: [address] [place] [address] Performed By: #### 2 4323-8 #### [facility] CLIA [id number] [address] [place] [address] [place] Ferritin SerPl-mCncon 2022 Ferritin [Mass/Vol] 345.0 ng/mL Normal 30.3-565.7 [facility] Comment on above: Order Comment: Speci men Type: BLOOD SPECIMEN Ordering Facility: [facility] Address: [address] [place] [address] Performed By: #### V ITB6 #### [facility] CLIA [id number] [address] [place] [address] Fibrinogen PPP-ncon 2022 Fibrinogen Coag (PPP) [Mass/Vol] 442 mg/dL High 200-400 [facility] Comment on above: Order Comment: Speci men Type: BLOOD SPECIMEN Ordering Facility: [facility] Address: [address] [place] [address] Performed By: #### V ITB6 #### [facility] CLIA [id number] [address] [place] [address] Folate SerPl-[facility] 09-02-19 Folate [Mass/Vol] 13.7 ng/mL Normal >4.7 [facility] Comment on above: Order Comment: Speci men Type: BLOOD SPECIMENOrdering Facility: [facility] Address: [address] [place] [address] Performed By: #### 7 886-5, 2284-8, VZVG2 ####[facility] [id number] [address] [facility] HAV IgM Ser Qlon 09-02-2022 HAV IgM Ql (S) Negative Normal Negative [facility] Comment on above: Order Comment: Speci men Type: BLOOD SPECIMENOrdering Facility: [facility] Address: [address] [place] [address] Result Comment: No e vidence of recent infection with Hepatitis A virus. Performed By: #### 2 532-0, 5195-3, 59454-2, 65488-4 ####[facility] [id number] [address] [facility] HBV core IgM Ser Qlon 2022 HBV core IgM Ql (S) Negative Normal Negative [facility] Comment on above: Order Comment: Speci men Type: BLOOD SPECIMENOrdering Facility: [facility] Address: [address] [place] [address] Result Comment: No e vidence of recent infection with Hepatitis B virus. Should recent infection be suspected, repeat testing may be considered 3-4 weeks after this draw. Performed By: #### 2 532-0, 5195-3, 74533-8, 90662-9 ####[facility] [id number] [place] [address] [place] HBV surface Ag Ser Qlon HBV surface Ag Ql (S) Negative Normal Negative [facility] Comment on above: Order Comment: Speci men Type: BLOOD SPECIMENOrdering Facility: [facility] Address: [address] [place] [address] Performed By: #### 2 532-0, 5195-3, 22580-4, 20493-6 ####[facility] [id number] [address] [place] HCV RNA SerPl NOLBERTO+probe-aCnc on 09-02-2022 HCV RNA NOLBERTO+probe Qn Not detected Normal HCV RNA not detected by PCR. [facility] Comment on above: Order Comment: Noe madrid Type: BLOOD SPECIMEN Ordering Facility: [facility] Address: [address] [place] [address] Performed By: #### 5 763-8, COPPER #### [facility] CLIA [id number] [address] [place] HEP DELTA ABon 09-02-2022 HEP DELTA AB Negative Normal Negative [facility] Comment on above: Order Comment: Speci men Type: BLOOD SPECIMENOrdering Facility: [facility] Address: [address] [place] [address] Result Comment: No a ntibody to Hepatitis Delta agent was detected. Order anti-HDV testing only when Hepatitis B virus infection has been confirmed. INTERPRETIVE INFORMATION: Hepatitis Delta Ab This test was developed and its performance characteristics determined by [employer]. It has not been cleared or approved by the [place] Food and Drug Administration. This test was performed in a CLIA certified laboratory and is intended for clinical purposes. Performed by [employer], [address] [place] [address] [email or web address], Mic Rangel MD, PHD, Lab. Director Performed By: #### A HD ####[facility] [id number] [place] [address] HEPATITIS E VIRUS ABon 09-02 HEV IGG Not detected Normal [facility] Comment on above: Order Comment: Speci men Type: BLOOD SPECIMENOrdering Facility: [facility] Address: [address] [place] [address] Performed By: #### H EPE ####[employer] [facility]garmentsWH[facility] [id number] HOLDEN [employer] Cure Neuro[place] [address] HEV IGM Not detected Normal [facility] Comment on above: Order Comment: Speci men Type: BLOOD SPECIMENOrdering Facility: [facility] Address: [address] [place] [address] Result Comment: REFE RENCE RANGE: NOT DETECTED Hepatitis E virus (HEV) is a major cause of enteric non-A hepatitis worldwide. Both HEV IgM and IgG are typically detected within one month after infection; IgM persists for about two months, whereas IgG levels persist for months to years after recovery. Approximately 20% of the population is positive for HEV IgG, indicating that HEV exposure is more common than previously thought. This test was developed and its analytical performance characteristics have been determined by [employer]. It has not been cleared or approved by FDA. This assay has been validated pursuant to the CLIA regulations and is used for clinical purposes. Performed By: #### H EPE ####[employer] [facility]garmentsWH[facility] [id number] [facility] [place] [address] HISTORY PHYSICALon HISTORY PHYSICAL HNO ID: [id number] Author: Carolin Crawford MD Service: Hepatology Author Type: Physician Type: HANDP Filed: 09/03/2022 5:06 PM Note Text: Department of Gastroenterology AND Hepatology Initial Consult Note Date of Service: September 02, 2022 Patient: Chuckie Villalta Medical Record: [id number] Reason for Admission / Consultation: Opinion/Advice regarding elevated liver tests Hepatology Attending: Dr. 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 Noted to have new elevated liver function tests for which the hepatology team was consulted. The etiology of the mixed liver injury is unclear at this time. The acute elevation in AST, ALT in a 2:1 pattern may be secondary to EtOH-related hepatitis vs. Ischemia in the setting of acute lowering BP with use of anti-hypertensives since admission vs. Biliary obstruction (particularly in the setting of elevated T. Bili, partially conjugated and prior hx of choledocholithiasis). Less likely to be secondary to acute infectious etiology (though did have positive EBV IgG, CMV IgG and equivocal VZV IgG in the past) or graft rejection (given tacro troughs have been therapeutic) given acute elevation but given prior evidence of cellular rejection (s/p biopsy 2018 x 4) would proceed with perc liver biopsy. The t.bili elevation may be multifactorial as fractionation of the T. Bili actually indicates it to be partially unconjugated which may point at a hematological cause (particularly in the setting of acute Plt drop since admission) but given prior hx of choledocholithiasis there remains some c/f choledocholithiasis despite negative imaging (RUQ US and CTAP). Plan: - Recommend percutaneous liver biopsy (would request red on it) - Liver vascular US to r/o vascular occlusion and MRCP - Please check daily tacro troughs (last trough 7.4 on 09/02/22). Continue tacrolimus 2mg/2mg. Please check tacro troughs 60min before Tacro AM dose. Please monitor RFP and hepatic function panel. - Please discontinue TMP-SMX (ppx no longer indicated) - Please send the following: acute and remote hepatitis panel (HBsAg, HB core Ab, Hep B surface Ab, Hep C Ab, HCV RNA, Hep A Ab IgM), anti-HEV, EBV IgM, CMV DNA PCR, VZV IgG and IgM. Please send iron panel + ferritin, ceruloplasmin, AMA, ASMA, LENNY, A1AT phenotype. - Hematology consult for evaluation of unconjugated hyperbiliarubinemia - Maintain stable hemodynamic status; would transfuse to maintain Hgb>7, Plt>50K - Continue to monitor CBC, CMP, and INR; if changes in mental status please notify hepatology team right away and have low threshold to consult ICU team. Would monitor hepatic function panel Q12H for now. - Would recommend EGD given reported hematemesis at home and removal of AXIOS stent. Would empirically start on IV PPI BID for now. If patient's clinical status changes, would have low threshold to add octreotide gtt, make NPO and consult GI team and critical care consult (particularly in the setting of AXIOS stent which increases risk of pseudoaneurysm formation--would need emergent angiography if hemodynamically-signifi cant GIB). Jerri Camacho MD Gastroenterology AND Hepatology Fellow Pager [phone] Discussed with staff. 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 The patient reports ongoing EtOH use with ongoing participation in AA; he reports no inciting factor to EtOH relapse and reports last drink 1 week prior to admission on 08/31/22. He states that he was in his usual state of health until 08/30/22 when he started to feel generalized malaise with nausea. No fever/chills. On Thursday, more content not included)... Normal [facility] Haptoglob SerPl-mCncon 09-02 Haptoglobin [Mass/Vol] 36 mg/dL Normal 31-238 [facility] Comment on above: Order Comment: Noe madrid Type: BLOOD SPECIMEN Order[facility] Address: [address] [place] [address] Performed By: #### 5 763-8, COPPER #### [facility] CLIA [id number] [address] [place] [address] [place] Iron and Iron binding capaci ty panelon 09-02-2022 Iron [Mass/Vol] 26 ug/dL Low 41-186 [facility] Comment on above: Order Comment: Noe madrid Type: BLOOD SPECIMEN Ordering Facility: [facility] Address: [address] [place] [address] Performed By: #### V ITB6 #### [facility] CLIA [id number] [address] [place] [address] Iron binding capacity [Mass/Vol] 271 ug/dL Normal 232-386 [facility] Comment on above: Order Comment: Louiei mercy Type: BLOOD SPECIMEN Ordering Facility: [facility] Address: [address] [place] [address] Performed By: #### V ITB6 #### [facility] CLIA [id number] [address] [place] [address] Iron/TIBC [Molar ratio] 9.6 % Low 15.0-57.0 [facility] Comment on above: Order Comment: Speci men Type: BLOOD SPECIMEN Ordering Facility: [facility] Address: [address] [place] [address] Performed By: #### V ITB6 #### [facility] CLIA [id number] [address] [place] [address] LDH SerPl-cCncon 09-02-2022 LDH [Catalytic activity/Vol] 207 U/L Normal 135-225 [facility] Comment on above: Order Comment: Speci men Type: BLOOD SPECIMENOrdering Facility: [facility] Address: [address] [place] [address] Performed By: #### 2 532-0, 5195-3, 65624-9, 68636-9 ####[facility] [id number] [address] OF [place] Mitochondria Ab IF Ql (S)on 09-02-2022 Mitochondria M2 Ab IA Qn (S) 1.7 Units Normal <=20.0 [facility] Comment on above: Order Comment: Speci men Type: BLOOD SPECIMEN Ordering [facility] Address: [address] [place] [address] Performed By: #### 5 763-8, COPPER #### [facility] CLIA [id number] [address] [place] [address] [place] Mitochondria M2 Ab Ql (S) Negative Normal Negative [facility] Comment on above: Order Comment: Speci men Type: BLOOD SPECIMEN Ordering [facility] Address: [address] [place] [address] Result Comment: Anti -mitochondrial antibody test is used as an aid in diagnosis of primary biliary cholangitis. Clinical correlation is required. Performed By: #### 5 763-8, COPPER #### [facility] CLIA [id number] [address] [place] [address] [place] NURSING PROGon 09-02-2022 NURSING PROG HNO ID: [id number] Author: Radha Mcpherson RN Service: Nursing Author Type: Registered Nurse Type: Nursing Progress Note Filed: 09/02/2022 3:59 PM Note Text: Egd scheduled on 09/04/22. Please hold blood thinning medications if applicable. Discussed with primary Please ensure that patient is NPO and stop all tube feeds after midnight the evening prior to the scheduled procedure and has a working IV. Overnight labs will need to be resulted and WNL by 0600 on the morning of the procedure. Essential meds with small sips of water are ok for the day of procedure. Labs must be optimized to be completed in Q3 Hbg>7, Plt>50, INR <1.5 Radha Mcpherson RN 3:59 PM Normal [facility] PATHOLOGIST INTERPRETATION C BC/DIFFon 09-02-2022 Knotting Machine Operator Portable review Ernst (Unsp spec) [Interp] Reviewed by Flex Morataya MD Normal [facility] Comment on above: Order Comment: Speci men Type: BLOOD SPECIMENOrdering Facility: [facility] Address: [address] [place] [address] Performed By: #### S TFREV, 39965-3, [id number] ####[facility] [id number] [address] [facility] STAFF REVIEW, CBCDIF Normal [facility] Comment on above: Order Comment: Noe madrid Type: BLOOD SPECIMENOrdering Facility: [facility] Address: [address] [place] [address] Result Comment: Norm ocytic anemia without polychromasia Absolute lymphopenia without leukopenia Thrombocytopenia Performed By: #### S TFREV, 07677-9, [id number] ####[facility] [id number] [address] [place] PHOSPHATIDYLETHANOL (PETH)on 09-02-2022 PETH 16:0/18.2 (PLPETH) 278 ng/mL Normal [facility] Comment on above: Order Comment: Speci men Type: BLOOD SPECIMEN Ordering Facility: [facility] Address: [address] [place] [address] Result Comment: Perf ormed By: [employer] [address] [place] [address] Program Host: Mic Rangel MD, PhD Performed By: #### 5 763-8, COPPER #### [facility] CLIA [id number] [address] [facility] [id number] [address] [place] PETH 16:0/18:1 (POPETH) 578 ng/mL Normal [facility] Comment on above: Order Comment: Speci men Type: BLOOD SPECIMEN Ordering Facility: [facility] Address: [address] [place] [address] Result Comment: INTE RPRETIVE INFORMATION:Phosphatidylethanol (PEth), Whole Blood Phosphatidylethanol (PEth) homologues Result Interpretation PEth 16:0/18:1 (POPEth) Less than 10 ng/mL............Not detected Less than 20 ng/mL............Abstinence or light alcohol consumption 20 - 200 ng/mL................Moderate alcohol consumption Greater than 200 ng/mL........Heavy alcohol consumption or chronic alcohol use PEth 16:0/18:2 (PLPEth).......Reference ranges are not well established. (Reference: Brayan Hauser and Efrain Buckley 2018 J. Forensic Sci) Phosphatidylethanol (PEth) is a group of phospholipids formed in the presence of ethanol, phospholipase D and phosphatidylcholine. PEth is known to be a direct alcohol biomarker. The predominant PEth homologues are PEth 16:0/18:1 (POPEth) and PEth 16:0/18:2 (PLPEth), which account for 37-46% and 26-28% of the total PEth homologues, respectively. PEth is incorporated into the phospholipid membrane of red blood cells and has a general half-life of 4-10 days and a window of detection of 2-4 weeks. However, the window of detection is longer in individuals who chronically or excessively consume alcohol. The limit of quantification is 10 ng/mL. Serial monitoring of PEth may be helpful in monitoring alcohol abstinence over time. PEth results should be interpreted in the context of the patient's clinical and behavioral history. Patients with advanced liver disease may have falsely elevated PEth concentrations (Darling MADRIGAL et al 2018, Alcoholism Clinical & Experimental Research). Test developed and characteristics determined by [employer]. See Compliance Statement B: [employer]/CS Performed By: #### 5 763-8, COPPER #### [facility] CLIA [id number] [address] [facility] [address] [facility] PT panel Coag (PPP)on 2022 INR Coag (PPP) [Relative time] 1.2 {INR} Normal 0.9-1.3 [facility] Comment on above: Order Comment: Noe [place]rid Type: BLOOD SPECIMEN Ordering Facility: [facility] Address: [address] [place], [place] [address] Result Comment: Aster min K Antagonist (VKA) Therapeutic Range: INR 2 to 3 (Target INR of 2.5) Note: For patients treated with VKA drugs, such as warfarin, the [place] [employer] 2012 Guideline recommends a therapeutic INR range of 2 to 3 (target INR of 2.5). This recommendation includes high-risk patients with antiphospholipid syndrome with previous arterial or venous thromboembolism, current-generation mechanical or bioprosthetic aortic heart valve replacement. Note: Patients with mechanical aortic valve replacement and additional risk factors for thromboembolic events (atrial fibrillation, previous thromboembolism, LV dysfunction, hypercoagulable conditions) or an older generation mechanical AVR (i.e., ball in-Cage) or any mechanical MVR should have a INR therapeutic range of 2.5 to 3.5 (target INR of 3). Scotty GH, et al. Chest 2012, 141:7S-47S Goldie RA, et al. JACC 2017, 70: 252-289 Performed By: #### V ITB6 #### [email or web address] CLIA [id number] [address] [place] [address] PT Coag (PPP) [Time] 11.9 s Normal 9.7-13.0 [facility] Comment on above: Order Comment: Noe madrid Type: BLOOD SPECIMEN Ordering Facility: [facility] Address: [address] Performed By: #### V ITB6 #### [facility] [id number] [address] [place] [address] RBC MORPHOLOGYon 09-02-2022 Anisocytosis Ql (Bld) Present Normal [facility] Comment on above: Order Comment: Speci men Type: BLOOD SPECIMENOrdering Facility: [facility] Address: [address] Performed By: #### S TFREV, 53453-4, [id number] ####[facility] [id number] [place] [address] [place] Platelets Estimate (Bld) [#/Vol] Decreased Normal [facility] Comment on above: Order Comment: Speci men Type: BLOOD SPECIMENOrdering Facility: [facility] Address: [address] [place], [place] [address] Performed By: #### S TFREV, 02832-1, [id number] ####[facility] [id number] [place] [address] [place] RBC morphology finding Nom (Bld) Reviewed: see results of individual morphologies Normal [facility] Comment on above: Order Comment: Speci men Type: BLOOD SPECIMENOrdering Facility: [facility] Address: [address] [place], [place] [address] Performed By: #### S TFREV, 39708-4, [id number] ####[facility] [id number] [address] [place] Retics #on 09-02-2022 Reticulocytes (Bld) [#/Vol] 0.49097 10*3/uL Normal 0.018-0.100 [facility] Comment on above: Order Comment: Speci men Type: BLOOD SPECIMENOrdering Facility: [facility] Address: [address] [place], [place] [address] Performed By: #### 5 8410-2, 11962-5 ####[facility] [id number] [place] [address] [place] Reticulocytes (Bld) [#/Vol]o n 09-02-2022 Reticulocytes/100 RBC (Bld) 1.7 % Normal 0.4-2.0 [facility] Comment on above: Order Comment: Speci men Type: BLOOD SPECIMENOrdering Facility: [facility] Address: [address] [place] [address] Performed By: #### 5 8410-2, 65154-5 ####[facility] [id number] [place] [address] [place] Smooth muscle Ab Ql (S)on ACTIN SMOOTH MUSCLE IGG QUALITATIVE Negative Normal Negative [facility] Comment on above: Order Comment: Speci men Type: BLOOD SPECIMEN Ordering Facility: [facility] Address: [address] [place] [address] Performed By: #### 5 763-8, COPPER #### [facility] CLIA [id number] [address] [place] [address] [place] ACTIN SMOOTH MUSCLE IGG QUANTITATIVE 5 Units Normal <20 [facility] Comment on above: Order Comment: Speci men Type: BLOOD SPECIMEN Ordering Facility: [facility] Address: [address] [place] [address] Performed By: #### 5 763-8, COPPER #### [facility] CLIA [id number] [address] [place] [address] [place] Tacrolimus Bld-mCncon 2022 Tacrolimus (Bld) [Mass/Vol] 7.4 ng/mL Normal 5.0-20.0 [facility] Comment on above: Order Comment: Speci men Type: BLOOD SPECIMENOrdering Facility: [facility] Address: [address] [place] [address] Result Comment: Thes e reference ranges are provided as a general recommendation. Individualized target levels for a given patient will depend on many factors (including the type of organ transplant, time since transplantation, concurrent medications, and other clinical factors), and should be assessed by those health care providers experienced in the management of immunosuppression. Reference ranges and high/low indicator flags are provided as general guidelines only. The treating physician must determine appropriate target levels/dosing based on the specific clinical situation. Test performed by chemiluminescent immunoassay using Schuler Lacquer Sizer. 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 COMPARISON: None. TECHNIQUE: Sonography of the liver with color and spectral Doppler imaging of the hepatic vasculature was performed. Images were obtained and stored in a permanent archive. RESULT: SONOGRAPHIC FINDINGS: Liver: Right lobe liver transplant. Echotexture: Normal, homogeneous. Echogenicity: Increased Surface contour: Smooth Lesions: None. Biliary: Persistent intrahepatic biliary duct dilation. CBD: 0.6 cm at the hilum. Gallbladder: Prior cholecystectomy. Right Kidney: No hydronephrosis. Spleen: The craniocaudal length of the spleen is 17.7 cm, enlarged. There are no splenic lesions. Other: No ascites HEPATIC VASCULATURE: Portal System: -Splenic Vein: Patent at the hilum with antegrade flow (towards the liver), obscured midline. -Main PV: Patent with phasic antegrade flow (towards liver). 35 cm/sec -Right anterior PV: Patent with phasic antegrade flow (towards liver). 15-43 cm/sec -Right posterior PV: Patent with phasic antegrade flow (towards liver). 32 cm/sec Hepatic Arteries: - Main COBOS: Brisk up-stroke with increased diastolic flow PSV: 64-89 cm/sec. RI: 0.55-0.65 - Right anterior COBOS: Brisk up-stroke with increased diastolic flow PSV: 44-59 cm/sec. RI: 0.52-0.63 - Right posterior COBOS: Brisk up-stroke with increased diastolic flow PSV: 35 cm/sec. RI: 0.49 Hepatic Veins: -Right: Patent with triphasic waveform. IVC: Patent with normal, phasic wave form. IMPRESSION: PATENT HEPATIC VASCULATURE WITH APPROPRIATELY DIRECTED FLOW. LOW RESISTIVE INDICES DUE TO INCREASED DIASTOLIC FLOW. ATTENTION ON FOLLOW-UP. HEPATIC STEATOSIS. OTHERWISE, NORMAL SONOGRAPHIC APPEARANCE OF THE TRANSPLANT LIVER. SPLENOMEGALY. Medical Coding Manager: GUILLE Transcribe Date/Time: Sep 02 2022 3:34P Dictated by : PAMELA SIMMONS, DO This examination was interpreted and the report reviewed and electronically signed by: KAMRON SHAH MD on Sep 02 2022 4:04PM EST [id number] Normal [facility] VARICELLA ZOSTER IGGon 09-02 VARICELLA ZOSTER IGG, QUAL Positive Normal Positive [facility] Comment on above: Order Comment: Noe [place] Type: BLOOD SPECIMENOrdering Facility: [facility] Address: [address] [place] [address] Result Comment: The result suggests recent or past exposure to Varicella-Zoster virus or chickenpox vaccination or zoster vaccination. Positive result may also be seen due to presence of passively-transferred antibodies. Please correlate with patient's history. Performed By: #### 7 886-5, 2284-8, VZVG2 ####[facility] [id number] [address] [place] VARICELLA ZOSTER IGMon 09-02 VARICELLA ZOSTER, IGM 0.07 ISR Normal <=0.90 [facility] Comment on above: Order Comment: Noe [place] Type: BLOOD SPECIMEN Ordering Facility: [facility] Address: [address] [place] [address] Result Comment: Specimen is icteric. Results may be adversely affected. INTERPRETIVE INFORMATION: Varicella-Zoster Virus Antibody, IgM 0.90 ISR or less ........ Negative - No significant level of detectable varicella-zoster virus IgM antibody. 0.91-1.09 ISR ........... Equivocal - Repeat testing in 10-14 days may be helpful. 1.10 ISR or greater ..... Positive - Significant level of detectable varicella-zoster virus IgM antibody. Indicative of current or recent infection. However, low levels of IgM antibodies may occasionally persist for more than 12 months post-infection or immunization. Performed By: [employer] [address] [place] [address] Program Host: Mic Rangel MD, PhD Performed By: #### 5 0189-0, 02237-2, 2132-9 #### [facility] CLIA [id number] [address] aPTT PPPon 09-02-2022 aPTT Coag (PPP) [Time] 26.0 s Normal 23.0-32.4 [facility] Comment on above: Order Comment: Speci men Type: BLOOD SPECIMEN Ordering Facility: [facility] Address: [address] [place] [address] Performed By: #### V ITB6 #### [email or web address] CLIA [id number] [address] [place] [address] CASE MGT INIT ASSESon 2022 CASE MGT INIT ASSES HNO ID: [id number] Author: JEY Felton Service: ? Author Type: Automotive Refinisher Type: Care Mgt Initial Assessment Filed: 09/01/2022 10:16 AM Note Text: CARE MANAGEMENT: ASSESSMENT AND DISCHARGE PLAN SERVICE DATE: September 01, 2022 SERVICE TIME: 10:15 AM PRIMARY CARE PHYSICIAN: Luis Abdalla DO Primary Contact: Extended Emergency Contact Information Primary Emergency Contact: Remedios Villalta Address: [address] [place] [address] [place] [facility] Mobile Relation: Spouse ADMISSION STATUS: Inpatient Insurance Provider: MEDICARE A AND B NEEDS PRIOR TO DISCHARGE Needs Prior to Discharge: To Be Determined POTENTIAL TRANSITION PLANS Home Patient's perception of need for this admission: Pt is aware of admission and is in agreement ADVANCE DIRECTIVES Current Advance Directive: Health Care Power of End Finder Forming Department In Chart: Yes Up To Date and Valid: Yes CAREGIVER ASSESSMENT Caregiver is ready, willing and able to meet the patient's needs as recommended by the inter-professional team:: Yes Name of Caregiver: Remedios Villalta [phone] Patient's transition needs and plan for meeting these needs: Pt is aware of admission and is in agreement FREEDOM OF CHOICE EXPLAINED: [place] of Choice Given: No Reason Not Given: No placements necessary ASSESSMENT AND PLAN: This patient has been screened for Care Management Transitional Planning Services. At this time, it does not appear this patient will require transition planning services. Should this change, and the patient require transition planning services during this admission, please contact Case Management. DISCHARGE TRANSPORTATION Patient has been informed that discharge time is 12pm on day of discharge. Discharge Transportation: Patient stated that discharge transportation will be by car, provided by Remedios Villalta (spouse) who can be reached at . Patient has been informed, if above person is unavailable at 12pm on day of discharge then alternate arrangements will need to be made. Discharge Barriers: Medical clearance for D/C SIGNATURE: Delilah Hightower MSW, REAL ESTATE OFFICER PATIENT NAME: Chuckie Villalta DATE: September 01, 2022 TIME: 10:14 AM CONTACT #: Normal [facility] CBC panel Auto (Bld)on 09-01 Erythrocyte distribution width (RBC) [Ratio] 16.8 % High 11.5-15.0 [facility] Comment on above: Order Comment: Noe madrid Type: BLOOD SPECIMENOrdering Facility: [facility] Address: [address] [place] [address] Performed By: #### 5 8410-2 ####[facility] [id number] [place] [address] [place] Hematocrit (Bld) [Volume fraction] 37.0 % Low 39.0-51.0 [facility] Comment on above: Order Comment: Noe madrid Type: BLOOD SPECIMENOrdering Facility: [facility] Address: [address] [place] [address] Performed By: #### 5 8410-2 ####[facility] [id number] [place] [address] [place] Hemoglobin (Bld) [Mass/Vol] 13.3 g/dL Normal 13.0-17.0 [facility] Comment on above: Order Comment: Speci men Type: BLOOD SPECIMENOrdering Facility: [facility] Address: [address] [place], [place] [address] Performed By: #### 5 8410-2 ####[facility] [id number] [address] [place] MCH (RBC) [Entitic mass] 30.1 pg Normal 26.0-34.0 [facility] Comment on above: Order Comment: Speci men Type: BLOOD SPECIMENOrdering Facility: [facility] Address: [address] [place], [place] [address] Performed By: #### 5 8410-2 ####[facility] [id number] [address] [place] MCHC (RBC) [Mass/Vol] 35.9 g/dL Normal 30.5-36.0 [facility] Comment on above: Order Comment: Speci men Type: BLOOD SPECIMENOrdering Facility: [facility] Address: [address] [place], [place] [address] Performed By: #### 5 8410-2 ####[facility] [id number] [place] [address] [place] MCV (RBC) [Entitic vol] 83.7 fL Normal 80.0-100.0 [facility] Comment on above: Order Comment: Speci men Type: BLOOD SPECIMENOrdering Facility: [facility] Address: [address] [place], [place] [address] Performed By: #### 5 8410-2 ####[facility] [id number] [address] [place] Nucleated RBC (Bld) [#/Vol] 10*3/uL Normal <0.01 [facility] Comment on above: Order Comment: Speci men Type: BLOOD SPECIMENOrdering Facility: [facility] Address: [address] [place] [address] Performed By: #### 5 8410-2 ####[facility] [id number] [place] [address] [place] Platelet mean volume (Bld) [Entitic vol] 10.9 fL Normal 9.0-12.7 [facility] Comment on above: Order Comment: Speci men Type: BLOOD SPECIMENOrdering Facility: [facility] Address: [address] [place] [address] Performed By: #### 5 8410-2 ####[facility] [id number] [place] [address] [place] Platelets (Bld) [#/Vol] 56 10*3/uL Low 150-400 [facility] Comment on above: Order Comment: Speci men Type: BLOOD SPECIMENOrdering Facility: [facility] Address: [address] [place] [address] Result Comment: Resu lts checked and verified.No clot detected. Performed By: #### 5 8410-2 ####[facility] [id number] [place] [address] [place] RBC (Bld) [#/Vol] 4.42 10*6/uL Normal 4.20-6.00 [facility] Comment on above: Order Comment: Speci men Type: BLOOD SPECIMENOrdering Facility: [facility] Address: [address] [place] [address] Performed By: #### 5 8410-2 ####[facility] [id number] [place] [address] [place] WBC (Bld) [#/Vol] 5.59 10*3/uL Normal 3.70-11.00 [facility] Comment on above: Order Comment: Speci men Type: BLOOD SPECIMENOrdering Facility: [facility] Address: [address] [place] [address] Performed By: #### 5 8410-2 ####[facility] [id number] [address] [place] Comp Metab 2000 Pnl SerPlon 09-01-2022 Bilirubin [Mass/Vol] 8.5 mg/dL High 0.2-1.3 [facility] Comment on above: Order Comment: Speci men Type: BLOOD SPECIMEN Ordering [facility] Address: [address] Performed By: #### 5 763-8, COPPER #### [facility] CLIA [id number] [address] [place] [address] Comprehensive metabolic 2000 panelon 09-01-2022 Albumin [Mass/Vol] 4.0 g/dL Normal 3.9-4.9 [facility] Comment on above: Order Comment: Speci men Type: BLOOD SPECIMEN Ordering [facility] Address: [address] Performed By: #### 5 763-8, COPPER #### [facility] CLIA [id number] [address] [place] [address] [place] ALP [Catalytic activity/Vol] 65 U/L Normal 38-113 [facility] Comment on above: Order Comment: Speci men Type: BLOOD SPECIMEN Ordering Facility: [facility] Address: [address] [place] [address] Performed By: #### 5 763-8, COPPER #### [facility] CLIA [id number] [address] [place] [address] [place] ALT [Catalytic activity/Vol] 147 U/L High 10-54 [facility] Comment on above: Order Comment: Speci men Type: BLOOD SPECIMEN Ordering [facility] Address: [address] Performed By: #### 5 763-8, COPPER #### [facility] CLIA [id number] [address] [place] [address] [place] Anion gap [Moles/Vol] 10 mmol/L Normal 9-18 [facility] Comment on above: Order Comment: Speci men Type: BLOOD SPECIMEN Ordering [facility] Address: [address] [place] [address] Performed By: #### 5 763-8, COPPER #### [facility] CLIA [id number] [address] [place] [address] [place] AST [Catalytic activity/Vol] 617 U/L High 14-40 [facility] Comment on above: Order Comment: Speci men Type: BLOOD SPECIMEN Ordering [facility] Address: [address] [place] [address] Performed By: #### 5 763-8, COPPER #### [facility] CLIA [id number] [address] [place] [address] [place] Calcium [Mass/Vol] 8.6 mg/dL Normal 8.5-10.2 [facility] Comment on above: Order Comment: Speci men Type: BLOOD SPECIMEN Ordering [facility] Address: [address] [place], [place] [address] Performed By: #### 5 763-8, COPPER #### [facility] CLIA [id number] [address] [place] [address] [place] Chloride [Moles/Vol] 102 mmol/L Normal 97-105 [facility] Comment on above: Order Comment: Speci men Type: BLOOD SPECIMEN Order[facility] Address: [address] [place] [address] Performed By: #### 5 763-8, COPPER #### [facility] CLIA [id number] [address] [place] [id number] [place] CO2 [Moles/Vol] 23 mmol/L Normal 22-30 [facility] Comment on above: Order Comment: Speci men Type: BLOOD SPECIMEN Ordering [facility] Address: [address] [place] [address] Performed By: #### 5 763-8, COPPER #### [facility] CLIA [id number] [address] [place] [address] [place] Creatinine [Mass/Vol] 1.23 mg/dL High 0.73-1.22 [facility] Comment on above: Order Comment: Speci men Type: BLOOD SPECIMEN Ordering [facility] Address: [address] [place] [address] Performed By: #### 5 763-8, COPPER #### [facility] CLIA [id number] [facility] [place] [address] [place] ESTIMATED GLOMERULAR FILTRATION RATE 78 mL/min/1.73m??? Normal >=60 [facility] Comment on above: Order Comment: Speci men Type: BLOOD SPECIMEN Ordering Facility[facility] Address: [address] [place] [address] Result Comment: Brenda mated Glomerular Filtration Rate (eGFR) is calculated using the 2020 CKD-EPI creatinine equation. This equation utilizes serum creatinine, sex, and age as parameters. The creatinine assay has traceable calibration to isotope dilution-mass spectrometry. Refer to KDIGO guidelines for clinical interpretation. In patients with unstable renal function, e.g. those with acute kidney injury, the eGFR may not accurately reflect actual GFR. Performed By: #### 5 763-8, COPPER #### [facility] CLIA [id number] [address] [place] [address] [place] Glucose [Mass/Vol] 131 mg/dL High 74-99 [facility] Comment on above: Order Comment: Speci men Type: BLOOD SPECIMEN [facility] Address: [address] [place] [address] Result Comment: The [place] Diabetes Association (ADA) provides guidance for cutoff values for fasting glucose and random glucose. The ADA defines fasting as no caloric intake for at least 8 hours. Fasting plasma glucose results between 100 to 125 mg/dL indicate increased risk for diabetes (prediabetes). Fasting plasma glucose results greater than or equal to 126 mg/dL meet the criteria for diagnosis of diabetes. In the absence of unequivocal hyperglycemia, results should be confirmed by repeat testing. In a patient with classic symptoms of hyperglycemia or hyperglycemic crisis, random plasma glucose results greater than or equal to 200 mg/dL meet the criteria for diagnosis of diabetes. Reference: Standards of Medical Care in Diabetes 2016, [place] Diabetes Association. Diabetes Care. 2016.39(Suppl 1). Performed By: #### 5 763-8, COPPER #### [facility] CLIA [id number] [address] [place] [address] [place] Potassium [Moles/Vol] 3.7 mmol/L Normal 3.7-5.1 [facility] Comment on above: Order Comment: Speci men Type: BLOOD SPECIMEN Ordering [facility] Address: [address] Performed By: #### 5 763-8, COPPER #### [facility] CLIA [id number] [address] [place] [address] [place] Protein [Mass/Vol] 6.2 g/dL Low 6.3-8.0 [facility] Comment on above: Order Comment: Speci men Type: BLOOD SPECIMEN Ordering [facility] Address: [address] Performed By: #### 5 763-8, COPPER #### [facility] CLIA [id number] [address] [place] [address] [place] Sodium [Moles/Vol] 135 mmol/L Low 136-144 [facility] Comment on above: Order Comment: Speci men Type: BLOOD SPECIMEN [facility]ing [facility] Address: [address] Performed By: #### 5 763-8, COPPER #### [facility] CLIA [id number] [address] [facility] [address] Urea nitrogen [Mass/Vol] 11 mg/dL Normal 9-24 [facility] Comment on above: Order Comment: Speci men Type: BLOOD SPECIMEN Ordering Facility: [facility] Address: [address] [id number] Performed By: #### 5 763-8, COPPER #### [facility] CLIA [id number] [facility] [id number] [facility] ED NOTEon 09-01-2022 ED NOTE HNO ID: [id number] Author: Max Cuellar MD Service: Emergency Medicine Author Type: Resident Type: ED Notes Filed: 09/01/2022 2:25 AM Note Text: 36M pmh liver transplant in 2019 intermittently etoh use. Last drink one week ago. Recent admission to transplant team for necrotizing pancreatitis. Transplant team states no need for their service as this is not necrotizing pancreatitis. Med admitted to hepatology service and hepatology service then denied this admission. [ ] Updated Med QB ED Course as of 09/01/22224 Others' Documentation Sun Aug 31, 20221924 Lactate (POCT)(!): 4.7 Elevated concerning for sepsis. [KO] 1924 CBC + DIFF(!): WBC 17.95(!) RBC 5.58 Hemoglobin 16.7 Hematocrit 45.3 MCV 81.2 MCH 29.9 MCHC 36.9(!) RDW-CV 17.9(!) Platelet Count 164 MPV 10.8 Neut% 85.2 Abs Neut (ANC) 15.29(!) Lymph% 4.9 Abs Lymph 0.88(!) Houston% 9.0 Abs Houston 1.61(!) Eosin% 0.0 Abs Eosin <0.03 Baso% 0.3 Abs Baso 0.06 Immature Gran % 0.6 IMMATURE GRANS (ABS) 0.11(!) NRBC 0.0 Absolute nRBC <0.01 DTYPE Auto Leukocytosis present consistent with likely infection. No anemia or thrombocytopenia. [KO] 1924 Magnesium(!): 1.6 Low, will replace. [KO] 192 COMP METABOLIC PANEL (BMP+LFT)(!): Protein, Total 7.7 Albumin 5.0(!) Calcium 10.1 Bilirubin, Total 4.1(!) Alkaline Phosphatase 64 AST 31 ALT 21 Glucose 129(!) BUN 18 Creatinine 1.66(!) Sodium 137 Potassium 4.0 Chloride 95(!) CO2 21(!) Anion Gap 21(!) eGFR 54(!) YOAN present, giving fluids. [KO] 1926 Lipase(!): 894 Elevated concerning for pancreatitis. [KO] 2008 CT ABD/PEL W IVCON ACUTE EDEMATOUS PANCREATITIS. NO FLUID COLLECTIONS. [KO] 2108 Lactate (POCT)(!): 2.7 downtrending [KO] 2145 Discussed with liver transplant team. States that patient is okay to go to hepatology service, was admitted to transplant service last year due to him having necrotizing pancreatitis. [KO] 2212 Care endorsed to me by Dr. Dawson - liver transplant 2019, etoh abuse. October 2019 had nec pancreatitis. Still drinking. Has recurrent pancreatitis. Hepatology has refused to admit. [HJ] ED Course User Index [HJ] Adeline Elmore MD [KO] Raina Reid DO Clinical Impressions as of 09/01/22 0225 Sepsis, due to unspecified organism, unspecified whether acute organ dysfunction present (HCC) YOAN (acute kidney injury) (HCC) Hypomagnesemia Acute pancreatitis, unspecified complication status, unspecified pancreatitis type Under my care: Patient remained hemodynamically stable without acute complaints. Patient was admitted to medicine and medicine QB was updated of need for admission to the medicine service. Max Cuellar MD Normal [facility] HISTORY PHYSICALon HISTORY PHYSICAL HNO ID: [id number] Author: Reymundo Charles MD Service: Hospital Medicine Author Type: Physician Type: HANDP Filed: 09/01/2022 12:49 AM Note Text: DEPARTMENT OF HOSPITAL MEDICINE HISTORY AND PHYSICAL EXAM SERVICE DATE: 09/01/2022 SERVICE TIME: 12:42 AM Primary Care Physician: Luis Abdalla DO NIGHT AND WEEKEND COVERAGE: Please page [phone] until 7:30am this morning. Afterwards, patient will be on GIM Please check the treatment team banner and page the appropriate pager. 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 Pt presented to ED with abdominal pain. Abdominal pain started today morning, it is diffuse, sharp, currently 8 from 10, radiating to the back, associated with nausea, multiple emesis (one of them had dark red blood), and multiple nonbloody liquidy BM. Patient did not take his tacrolimus today because of the vomiting, and he ran out of his blood pressure medications couple of weeks ago. He denied fever, shortness of breath or urinary symptoms Patient said he relapsed recently and was drinking again, last drink was last week, he said he has been drinking sporadically ED Of note patient presented with abdominal pain in November and found to have necrotizing pancreatitis, was started on antibiotics, He underwent on EUS on 11/01 w cystogastrostomy stent placement. In the ED, (!) 157/115 (!) 105 36.4 ?C (97.5 ?F) Oral 20 100 % Creatinine 1.6 bilirubin 4.1 lipase 894 WBC 17.9 INR 1.2 Sepsis lactate 4.7 improved with fluids to 2.7 CT abdomen pelvis acute edematous pancreatitis Patient was given 2 L IV fluids, Zofran, morphine labetalol Cipro and Flagyl Labs Reviewed COMP METABOLIC PANEL - Abnormal; Notable for the following components: Result Value Albumin 5.0 (*) Bilirubin, Total 4.1 (*) Glucose 129 (*) Creatinine 1.66 (*) Chloride 95 (*) CO2 21 (*) Anion Gap 21 (*) Estimated Glomerular Filtration Rate 54 (*) All other components within normal limits MAGNESIUM BLD - Abnormal; Notable for the following components: Magnesium 1.6 (*) All other components within normal limits LIPASE BLD - Abnormal; Notable for the following components: Lipase 894 (*) All other components within normal limits CBC + DIFF - Abnormal; Notable for the following components: WBC 17.95 (*) MCHC 36.9 (*) RDW-CV 17.9 (*) Abs Neut 15.29 (*) Abs Lymph 0.88 (*) Abs Houston 1.61 (*) Abs Immature Gran 0.11 (*) All other components within normal limits Narrative: This is an appended report. These results have been appended to a previously verified report. ED BG VENOUS/LAB PANELS - Abnormal; Notable for the following components: Lactate (POCT) 4.7 (*) All other components within normal limits Narrative: Meter ID:ED Location:ED [facility], [address] [place] [address], [facility] ED BG VENOUS/LAB PANELS - Abnormal; Notable for the following components: Lactate (POCT) 2.7 (*) All other components within normal limits Narrative: Meter ID:ED Location:ED [facility], [address] [place] [address], [facility] PROTHROMBIN TIME/PT - Normal EXPEDITED COVID19 - Normal Narrative: This test has been authorized by FDA under an Emergency Use Authorization (EUA). Test performed by [facility], [facility] [place], [address] [place] [address]. LACTATE - ED (POC) LACTATE - ED (POC) TACROLIMUS/FK-506 BL LACTATE - ED (POC) TACROLIMUS/FK-506 BL TOX DRUG SCREEN POC (URINE) ORDER C. DIFFICILE PCR URINALYSIS, WITH MICROSCOPIC SODIUM RANDOM URINE CREATININE RANDOM UR COMP METABOLIC PANEL BILIRUBIN DIRECT BLD PROCALCITONIN (LAB) BLOOD CULTURE BLOOD CULTURE PAST MEDICAL HISTORY Diagnosis Date Cirrhosis (HCC) Hemochromatosis Hepatic cirrhosis (HCC) 05/20/2019 Hypertension Hypertensive retinopathy, bilateral Long-term current use of tacrolimus Maculopathy Portal hypertension (HCC) related to cirrhosis Psoriasis Varicose vein of leg Right leg PAST SURGICAL HISTORY Procedure Laterality Date EGD 10/2017 LIVER TRANSPLANT HX NECK SURGERY HX PICC LINE INSERT/CONSULT 07/19/2019 VENOUS THROMBOSIS IMAGING VENOGRAM BILATERAL FAMILY HISTORY Problem Relation Age of Onset COPD Mother Hypertension Mother other (Other) Mother varicose veins with procedure Colon Cancer Father Social History Tobacco Use Smoking status: Never Smokeless tobacco: Former Substance Use Topics Alcohol use: Yes Comment: occasionally Drug use: No PRIOR TO ADMISSION MEDICATIONS: Cu (more content not included)... Normal [facility] bilirubin panel [Ma ss/Vol]on 09-01-2022 Bilirubin.conjugated [Mass/Vol] 4.7 mg/dL High <0.2 [facility] Comment on above: Order Comment: Speci men Type: BLOOD SPECIMEN Ordering Facility: [facility] Address: [address] [address] Performed By: #### 5 763-8, COPPER #### [facility] CLIA [id number] [address] [place] [address] [place] Bilirubin.indirect [Mass/Vol] 3.8 mg/dL High <1.4 [facility] Comment on above: Order Comment: Speci men Type: BLOOD SPECIMEN Ordering Facility: [facility] Address: [address] [address] Performed By: #### 5 763-8, COPPER #### [facility] CLIA [id number] [address] [place] [address] [place] SEPSIS LACTATEon 09-01-2022 Lactate [Moles/Vol] 0.9 mmol/L Normal <=2.0 [facility] Comment on above: Order Comment: Speci men Type: BLOOD SPECIMEN Ordering Facility: [facility] Address: [address] [address] Performed By: #### 5 763-8, COPPER #### [facility] CLIA [id number] [address] [place] [address] [place] US ABD RIGHT UPPER QUADRANTo n 09-01-2022 US ABD RIGHT UPPER QUADRANT * * *Final Report* * * DATE OF EXAM: Sep 01 2022 8:18PM [facility] 1032 - US ABD RIGHT UPPER QUADRANT / PROCEDURE REASON: Abn liver function tests (LFTs) * * * * Physician Interpretation * * * * EXAMINATION: RIGHT UPPER QUADRANT ULTRASOUND CLINICAL HISTORY: Elevated bilirubin. 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 Pt presented to ED with abdominal pain found to have acute appendicitis. TECHNIQUE: Sonography of the right upper quadrant was performed. Images were obtained and stored in a permanent archive. MQ: URUQ_2 COMPARISON: CT abdomen pelvis 08/31/2022, liver vascular ultrasound 10/30/2021 RESULT: Pancreas: Obscured. Liver: Right hepatic lobe transplant. Echotexture: Normal, homogeneous. Echogenicity: Increased Surface contour: Smooth Lesions: None. Biliary: No intrahepatic biliary ductal dilation is present. CBD: 0.6 cm at the hilum. Gallbladder: Absent. Right Kidney: No hydronephrosis. Ascites: None. IMPRESSION: Hepatic steatosis. Stable mild intrahepatic biliary ductal dilation, similar compared to 10/30/2021. Medical Coding Manager: GUILLE Transcribe Date/Time: Sep 01 2022 8:45P Dictated by : MOLLY MAI MD This examination was interpreted and the report reviewed and electronically signed by: KATERIN ALY MD on Sep 01 2022 9:14PM EST [id number] Normal [facility] XR CHEST 1V FRONTAL PORTon 0 09-01-2022 XR CHEST 1V FRONTAL PORT * * *Final Report* * * DATE OF EXAM: Sep 01 2022 12:55AM EGX [id number] - XR CHEST 1V FRONTAL PORT / PROCEDURE REASON: Shortness of breath * * * * Physician Interpretation * * * * EXAMINATION: CHEST RADIOGRAPH (PORTABLE SINGLE VIEW AP) Exam Date/Time: 09/01/2022 12:55 AM Clinical History: Shortness of breath MQ: XCPMC_6 Comparison: Chest radiograph 07/05/2021. RESULT: Lines, tubes, and devices: None. Lungs and pleura: No consolidation, large pleural effusion, or pneumothorax. Cardiomediastinal silhouette: Stable cardiomediastinal silhouette. Other: Lower ACDF. IMPRESSION: No acute cardiopulmonary process. Medical Coding Manager: [facility] Transcribe Date/Time: Sep 01 2022 1:11A Dictated by : GLADYS VIEYRA MD This examination was interpreted and the report reviewed and electronically signed by: GLADYS VIEYRA MD on Sep 01 2022 1:12AM EST [id number] Normal [facility] Bacteria Bld Culton 08-31-19 23 Bacteria identified Cx Nom (Bld) CULTURE, BLOOD: No growth 5 days Normal [facility] Comment on above: Performed By: #### 2 4323-8 #### [facility] CLIA [id number] [address] Bacteria identified Cx Nom (Bld) CULTURE, BLOOD: No growth 5 days Normal [facility] Comment on above: Performed By: #### 6 00-7 ####[facility] [id number] [address] [place] Bilirub Conj SerPl-mCncon Bilirubin.conjugated [Mass/Vol] 0.4 mg/dL High <0.2 [facility] Comment on above: Order Comment: Speci men Type: BLOOD SPECIMEN Ordering Facility: [facility] Address: [address] [address] Result Comment: Resu lts may be falsely decreased due to interference from hemolysis. Suggest reorder as clinically indicated. Performed By: #### 5 763-8, COPPER #### [facility] CLIA [id number] [address] CBC W Auto Differential pane l (Bld)on 08-31-2022 Basophils (Bld) [#/Vol] 0.06 10*3/uL Normal <0.11 [facility] Comment on above: Order Comment: Speci men Type: BLOOD SPECIMEN Ordering Facility: [facility] Address: [address] [address] Performed By: #### V ITB6 #### [facility] CLIA [id number] [address] [place] [address] Basophils/100 WBC (Bld) 0.3 % Normal [facility] Comment on above: Order Comment: Speci men Type: BLOOD SPECIMEN Ordering Facility: [facility] Address: [address] [place] [address] Performed By: #### V ITB6 #### [facility] CLIA [id number] [address] [place] [address] Differential cell count method Nom (Bld) Auto Normal [facility] Comment on above: Order Comment: Speci men Type: BLOOD SPECIMEN Ordering Facility: [facility] Address: [address] [address] Performed By: #### V ITB6 #### [facility] CLIA [id number] [address] [place] [address] Eosinophils (Bld) [#/Vol] 10*3/uL Normal <0.46 [facility] Comment on above: Order Comment: Speci men Type: BLOOD SPECIMEN Ordering Facility: [facility] Address: [address] [address] Performed By: #### V ITB6 #### [id number] [address] [place] [address] Eosinophils/100 WBC (Bld) 0.0 % Normal [facility] Comment on above: Order Comment: Speci men Type: BLOOD SPECIMEN Ordering Facility: [facility] Address: [address] [address] Performed By: #### V ITB6 #### [facility] IA [id number] [address] [place] [address] Erythrocyte distribution width (RBC) [Ratio] 17.9 % High 11.5-15.0 [facility] Comment on above: Order Comment: Speci men Type: BLOOD SPECIMEN Ordering Facility: [facility] Address: [address] [address] Performed By: #### V ITB6 #### [facility] CLIA [id number] [address] [place] [address] Hematocrit (Bld) [Volume fraction] 45.3 % Normal 39.0-51.0 [facility] Comment on above: Order Comment: Speci men Type: BLOOD SPECIMEN Ordering Facility: [facility] Address: [address] [address] Performed By: #### V ITB6 #### [facility] CLIA [id number] [address] [place] [address] Hemoglobin (Bld) [Mass/Vol] 16.7 g/dL Normal 13.0-17.0 [facility] Comment on above: Order Comment: Speci men Type: BLOOD SPECIMEN Ordering Facility: [facility] Address: [address] [place] [address] Performed By: #### V ITB6 #### [facility] CLIA [id number] [address] [place] [address] Immature granulocytes (Bld) [#/Vol] 0.11 10*3/uL High <0.10 [facility] Comment on above: Order Comment: Speci men Type: BLOOD SPECIMEN Ordering Facility: [facility] Address: [address] [place] [address] Performed By: #### V ITB6 #### [facility] CLIA [id number] [address] [place] [address] Immature granulocytes/100 WBC (Bld) 0.6 % Normal [facility] Comment on above: Order Comment: Speci men Type: BLOOD SPECIMEN Ordering Facility: [facility] Address: [address] [place] [address] Performed By: #### V ITB6 #### [facility] IA [id number] [address] [place] [address] Lymphocytes (Bld) [#/Vol] 0.88 10*3/uL Low 1.00-4.00 [facility] Comment on above: Order Comment: Speci men Type: BLOOD SPECIMEN Ordering Facility: [facility] Address: [address] [place] [address] Performed By: #### V ITB6 #### [facility] CLIA [id number] [address] [place] [address] Lymphocytes/100 WBC (Bld) 4.9 % Normal [facility] Comment on above: Order Comment: Speci men Type: BLOOD SPECIMEN Ordering Facility: [facility] Address: [address] [place] [address] Performed By: #### V ITB6 #### [facility] CLIA [id number] [address] [place] [address] MCH (RBC) [Entitic mass] 29.9 pg Normal 26.0-34.0 [facility] Comment on above: Order Comment: Speci men Type: BLOOD SPECIMEN Ordering Facility: [facility] Address: [address] [place] [address] Performed By: #### V ITB6 #### [facility] CLIA [id number] [address] [place] [address] MCHC (RBC) [Mass/Vol] 36.9 g/dL High 30.5-36.0 [facility] Comment on above: Order Comment: Speci men Type: BLOOD SPECIMEN Ordering Facility: [facility] Address: [address] [place] [address] Performed By: #### V ITB6 #### [facility] IA [id number] [address] [place] [address] MCV (RBC) [Entitic vol] 81.2 fL Normal 80.0-100.0 [facility] Comment on above: Order Comment: Speci men Type: BLOOD SPECIMEN Ordering Facility: [facility] Address: [address] [place] [address] Performed By: #### V ITB6 #### [facility] IA [id number] [address] [place] [address] Monocytes (Bld) [#/Vol] 1.61 10*3/uL High <0.87 [facility] Comment on above: Order Comment: Speci men Type: BLOOD SPECIMEN Ordering Facility: [facility] Address: [address] [address] Performed By: #### V ITB6 #### [facility] CLIA [id number] [address] [place] [address] Monocytes/100 WBC (Bld) 9.0 % Normal [facility] Comment on above: Order Comment: Speci men Type: BLOOD SPECIMEN Ordering Facility: [facility] Address: [address] [place] [address] Performed By: #### V ITB6 #### [facility] CLIA [id number] [address] [place] [address] Neutrophils (Bld) [#/Vol] 15.29 10*3/uL High 1.45-7.50 [facility] Comment on above: Order Comment: Speci men Type: BLOOD SPECIMEN Ordering Facility: [facility] Address: [address] [place] [address] Performed By: #### V ITB6 #### [facility] CLIA [id number] [address] [place] [address] Neutrophils/100 WBC (Bld) 85.2 % Normal [facility] Comment on above: Order Comment: Speci men Type: BLOOD SPECIMEN Ordering Facility: [facility] Address: [address] [place] [address] Performed By: #### V ITB6 #### [facility] CLIA [id number] [address] [place] [address] Nucleated RBC (Bld) [#/Vol] 10*3/uL Normal <0.01 [facility] Comment on above: Order Comment: Speci men Type: BLOOD SPECIMEN Ordering Facility: [facility] Address: [address] [place] [address] Performed By: #### V ITB6 #### [facility] CLIA [id number] [address] [place] [address] Nucleated RBC/100 WBC (Bld) [Ratio] 0.0 /100 WBC Normal [facility] Comment on above: Order Comment: Speci men Type: BLOOD SPECIMEN Ordering Facility: [facility] Address: [address] [place] [address] Performed By: #### V ITB6 #### [facility] CLIA [id number] [address] [place] [address] Platelet mean volume (Bld) [Entitic vol] 10.8 fL Normal 9.0-12.7 [facility] Comment on above: Order Comment: Speci men Type: BLOOD SPECIMEN Ordering Facility: [facility] Address: [address] [place] [address] Performed By: #### V ITB6 #### [facility] CLIA [id number] [address] [place] [address] Platelets (Bld) [#/Vol] 164 10*3/uL Normal 150-400 [facility] Comment on above: Order Comment: Speci men Type: BLOOD SPECIMEN Ordering Facility: [facility] Address: [address] [place] [address] Performed By: #### V ITB6 #### [facility] CLIA [id number] [address] [place] [address] RBC (Bld) [#/Vol] 5.58 10*6/uL Normal 4.20-6.00 [facility] Comment on above: Order Comment: Speci men Type: BLOOD SPECIMEN Ordering Facility: [facility] Address: [address] [place] [address] Performed By: #### V ITB6 #### [id number] [address] [place] [address] WBC (Bld) [#/Vol] 17.95 10*3/uL High 3.70-11.00 [facility] Comment on above: Order Comment: Speci men Type: BLOOD SPECIMEN Ordering Facility: [facility] Address: [address] [place] [address] Performed By: #### V ITB6 #### [facility] CLIA [id number] [address] [place] [address] CT ABD/PEL W IVCONon 023 CT ABD/PEL W IVCON * * *Final Report* * * DATE OF EXAM: Aug 31 2022 7:24PM [facility] 0530 - CT ABD/PEL W IVCON / PROCEDURE REASON: Abdominal abscess/infection suspected * * * * Physician Interpretation * * * * EXAMINATION: CT ABDOMEN AND PELVIS WITH IV CONTRAST CLINICAL HISTORY: History of right lower lobe transplant. History of pancreatitis with pseudocyst status post cystgastrostomy. Patient presents with generalized abdominal pain, nausea vomiting and diarrhea. TECHNIQUE: CT of the abdomen and pelvis was performed using standard technique, scanning from just above the dome of the diaphragm to the symphysis pubis. MQ: CTAP_3 Contrast: IV: 100 ml of Omnipaque 350 Oral: None CT Radiation dose: Integrated Dose-length product (DLP) for this visit = 1380 mGy*cm. CT Dose Reduction Employed: mAs-kVp adjusted based on patient size-age COMPARISON: CT abdomen pelvis 12/27/2021 RESULT: Liver: Right lobe liver transplant. Hepatic steatosis. No focal masses. Biliary: Stable mild intrahepatic biliary ductal dilation. Gallbladder is absent. Spleen: No mass. Splenomegaly measuring 15.5 cm in craniocaudal dimension, mildly increased from prior when it measured 17.6 cm. Pancreas: * Atrophic pancreatic body/tail, similar to prior. * Mild peripancreatic fat stranding, new or increased compared to prior, suggestive of acute interstitial pancreatitis. No organized collection. * Cystgastrostomy between the atrophic pancreatic tail and gastric lumen. No residual collection. * A small pseudocyst in the pancreatic head/uncinate process has resolved. Adrenals: No mass. Kidneys: No mass, calculus or hydronephrosis. GI tract: No dilated bowel loops. Aforementioned peripancreatic fat stranding also abuts the duodenum.. Lymph nodes: No abdominal or pelvic lymphadenopathy. Mesentery/Peritoneum: No ascites or mass. Retroperitoneum: No mass. Vasculature: - Abdominal aorta and iliac arteries: No aneurysm. - Celiac and SMA: Patent without stenosis. - Portal venous system (SMV, splenic vein, portal vein and RIGHT branches): Patent. - Hepatic veins: Incompletely opacified, likely due to early phase of enhancement. -Other: Extensive collaterals in the abdomen, including multiple perisplenic and gastric fundus collaterals. Pelvis: No mass, ascites or fluid collection. Bones/Soft Tissues: No significant finding. Lower thorax: Unremarkable. Juvenile Officer (topogram) images: No additional findings. IMPRESSION: ACUTE EDEMATOUS PANCREATITIS. NO FLUID COLLECTIONS. Medical Coding Manager: [employer] Transcribe Date/Time: Aug 31 2022 7:29P Dictated by : RADHA FRANCO MD This examination was interpreted and the report reviewed and electronically signed by: LAQUITA NUÑEZ MD on Aug 31 2022 8:01PM EST [id number] Normal [facility] metabolic 2000 panelon 08-31-2022 Albumin [Mass/Vol] 5.0 g/dL High 3.9-4.9 [facility] [facility] Comment on above: Order Comment: Speci men Type: BLOOD SPECIMENOrdering Facility: [facility] Address: [address] [address] Performed By: #### 2 4323-8, 01488-9, 0-3, 15190-7, 02383-3 ####[facility] LABCLIA [id number] [place] [address] [place] ALP [Catalytic activity/Vol] 64 U/L Normal 38-113 [facility] Comment on above: Order Comment: Speci men Type: BLOOD SPECIMENOrdering Facility: [facility] Address: [address] [place] [address] Performed By: #### 2 4323-8, 52281-1, 3039-3, 69785-0, 15723-7 ####[facility] LABIA [id number] [place] [address] [place] ALT [Catalytic activity/Vol] 21 U/L Normal 10-54 [facility] Comment on above: Order Comment: Speci men Type: BLOOD SPECIMENOrdering Facility: [facility] Address: [address] [place] [address] Performed By: #### 2 4323-8, 37730-7, 3039-3, 56306-6, 77248-8 ####[facility] LABIA [id number] [place] [address] [place] Anion gap [Moles/Vol] 21 mmol/L High 9-18 [facility] Comment on above: Order Comment: Speci men Type: BLOOD SPECIMENOrdering Facility: [facility] Address: [address] [place] [address] Performed By: #### 2 4323-8, 90606-7, 3039-3, 76360-4, 68138-1 ####[facility] LABCLIA [id number] [place] [address] [place] AST [Catalytic activity/Vol] 31 U/L Normal 14-40 [facility] Comment on above: Order Comment: Speci men Type: BLOOD SPECIMENOrdering Facility: [facility] Address: [address] [address] Performed By: #### 2 4323-8, 16436-1, 3040-3, 17842-8, 08457-9 ####[facility] LABCLIA [id number] [place] [address] [place] Bilirubin [Mass/Vol] 4.1 mg/dL High 0.2-1.3 [facility] Comment on above: Order Comment: Speci men Type: BLOOD SPECIMENOrdering Facility: [facility] Address: [address] [address] Performed By: #### 2 4323-8, 64912-6, 0-3, 85344-3, 91388-7 ####[facility] LABCLIA [id number] [place] [address] [place] Calcium [Mass/Vol] 10.1 mg/dL Normal 8.5-10.2 [facility] Comment on above: Order Comment: Speci men Type: BLOOD SPECIMENOrdering Facility: [facility] Address: [address] [address] Performed By: #### 2 4323-8, 66274-1, 0-3, 01567-0, 42924-6 ####[facility] LABCLIA [id number] [place] [address] [place] Chloride [Moles/Vol] 95 mmol/L Low 97-105 [facility] Comment on above: Order Comment: Speci men Type: BLOOD SPECIMENOrdering Facility: [facility] Address: [address] [place], [place] [address] Performed By: #### 2 4323-8, 22167-8, 3040-3, 30325-6, 19478-8 ####[facility] LABCLIA [id number] [place] [address] [place] CO2 [Moles/Vol] 21 mmol/L Low 22-30 [facility] Comment on above: Order Comment: Speci men Type: BLOOD SPECIMENOrdering Facility: [facility] Address: [address] [place] [address] Performed By: #### 2 4323-8, 56434-5, 3040-3, 62486-5, 05361-5 ####[facility] LABCLIA [id number] [place] [address] [place] Creatinine [Mass/Vol] 1.66 mg/dL High 0.73-1.22 [facility] Comment on above: Order Comment: Louiei men Type: BLOOD SPECIMENOrdering Facility: [facility] Address: [address] [place] [address] Performed By: #### 2 4323-8, 05778-6, 3040-3, 30799-1, 65325-5 ####[facility] LABCLIA [id number] [address] [place] ESTIMATED GLOMERULAR FILTRATION RATE 54 mL/min/1.73m??? Low >=60 [facility] Comment on above: Order Comment: Noe [place] Type: BLOOD SPECIMENOrdering Facility: [facility] Address: [address] [place] [address] Result Comment: Brenda mated Glomerular Filtration Rate (eGFR) is calculated using the 2020 CKD-EPI creatinine equation. This equation utilizes serum creatinine, sex, and age as parameters. The creatinine assay has traceable calibration to isotope dilution-mass spectrometry. Refer to KDIGO guidelines for clinical interpretation. In patients with unstable renal function, e.g. those with acute kidney injury, the eGFR may not accurately reflect actual GFR. Performed By: #### 2 4323-8, 49049-4, 3040-3, 96240-0, 78110-3 ####[facility] LABCLIA [id number] [address] [place] [address] [place] Glucose [Mass/Vol] 129 mg/dL High 74-99 [facility] Comment on above: Order Comment: Speci men Type: BLOOD SPECIMENOrdering Facility: [facility] Address: [address] [place], [place] [address] Result Comment: The [place] Diabetes [employer] (ADA) provides guidance for cutoff values for fasting glucose and random glucose. The ADA defines fasting as no caloric intake for at least 8 hours. Fasting plasma glucose results between 100 to 125 mg/dL indicate increased risk for diabetes (prediabetes). Fasting plasma glucose results greater than or equal to 126 mg/dL meet the criteria for diagnosis of diabetes. In the absence of unequivocal hyperglycemia, results should be confirmed by repeat testing. In a patient with classic symptoms of hyperglycemia or hyperglycemic crisis, random plasma glucose results greater than or equal to 200 mg/dL meet the criteria for diagnosis of diabetes. Reference: Standards of Medical Care in Diabetes 2016, [place] [employer] Association. Diabetes Care. 2016.39(Suppl 1). Performed By: #### 2 4323-8, 54761-2, 3040-3, 27471-9, 50027-7 ####[facility] LABCLIA [id number] [place] [address] [place] Potassium [Moles/Vol] 4.0 mmol/L Normal 3.7-5.1 [facility] Comment on above: Order Comment: Louiei men Type: BLOOD SPECIMENOrdering Facility: [facility] Address: [address] [place], [place] [id number] Performed By: #### 2 4323-8, 97914-0, 3040-3, 71420-6, 80643-8 ####[facility] LABIA [id number] [address] [address] [place] Protein [Mass/Vol] 7.7 g/dL Normal 6.3-8.0 [facility] Comment on above: Order Comment: Speci men Type: BLOOD SPECIMENOrdering Facility: [facility] Address: [address] [place], [place] [id number] Performed By: #### 2 4323-8, 64801-2, 3040-3, 06434-1, 39433-2 ####[facility] LABIA [id number] [address] [address] [place] Sodium [Moles/Vol] 137 mmol/L Normal 136-144 [facility] Comment on above: Order Comment: Speci men Type: BLOOD SPECIMENOrdering Facility: [facility] Address: [address] [place], [place] [phone] Performed By: #### 2 4323-8, 45848-9, 3040-3, 96271-9, 83359-6 ####[facility] [id number] [address] [place] [address] [place] Urea nitrogen [Mass/Vol] 18 mg/dL Normal 9-24 [facility] Comment on above: Order Comment: Speci men Type: BLOOD SPECIMENOrdering Facility: [facility] Address: [address] [place] [address] Performed By: #### 2 4323-8, 49415-8, 3040-3, 68839-1, 72528-5 ####[facility] [id number] [address] STATES OF [facility] ED NOTEon 08-31-2022 ED NOTE HNO ID: [id number] Author: Lorena Unger RN Service: Emergency Medicine Author Type: Registered Nurse Type: ED Notes Filed: 08/31/2022 7:27 PM Note Text: Pt complaining of 9/10 pain, states previous pain medication has not helped, LIP notified, awaiting additional orders. Pt also states he has not taken his blood pressure medication for the past three weeks due to not filling the prescription, supposed to be taking amlodipine and recently had coreg added but has not started. Has not taking his anti-rejection medication the last three days either due to vomiting. Normal [facility] ED NOTE HNO ID: [id number] Author: Reyes Schaefer RN Service: Emergency Medicine Author Type: Registered Nurse Type: ED Notes Filed: 08/31/2022 7:10 PM Note Text: Report given to BATOOL Rebollar Normal [facility] ED NOTE HNO ID: [id number] Author: Reyes Schaefer, BATOOL Service: Emergency Medicine Author Type: Registered Nurse Type: ED Notes Filed: 08/31/2022 6:04 PM Note Text: Pt presents to the ED with complaint of abdominal pain worsening over the past 2 days. The pt states that he has been vomiting and having loose stools over the past 2-3 weeks. The pt states that he vomited dark red blood today. The pt states that he has not taken his bp meds for 3 weeks and his tacro level was very low with blood work 3 weeks ago as well. The pt is laying in bed with 10/10 pain; visible distress. Positive for rebound tenderness with McBurney's point. Positive tenderness and inspiratory arrest with Urbano's sign. CVA tenderness noted. Pt denies cp; endorses sob; sating 100% RA. Pt hypertensive 200/96. Normal [facility] ED PROV NOTEon 08-31-2022 ED PROV NOTE HNO ID: [id number] Author: Ranjit Dawson MD Service: Emergency Medicine Author Type: Physician Type: ED Provider Notes Filed: 09/02/2022 1:21 PM Note Text: ED Provider Note Patient Name: Chuckie Villalta : 1985 SERVICE DATE: 08/31/22 History Patient presents with: Abdominal Pain: Pt presents to ED c/o generalized abd pain since this morning. Pt endorsing N/V/D, hx pancreatitis and liver transplant in 2019. HPI Patient is a 36-year-old male with a history of liver cirrhosis, hypertension, status post liver transplant in 2019 presenting to the ED for evaluation of abdominal pain. Patient reports earlier today he developed diffuse abdominal pain with associated nausea and multiple episodes of vomiting and multiple episodes of diarrhea. Reports a history of necrotizing pancreatitis and states symptoms are similar in nature. Denies any fevers but endorses chills. No other prior abdominal surgeries other than his liver transplant in 2019. States he was not able to tolerate his medications this morning. Describes pain as constant, nonradiating, worse with palpation. Reports decreased p.o. intake and decreased urination but no dysuria or hematuria. Does endorse intermittent relapses where he drinks alcohol, last drink was 1 week ago. Chart reviewed: - Imaging: CAT scan in October 2021 reviewed showing acute necrotizing pancreatitis. - Labs: Tacrolimus level from 07/07/2023 subtherapeutic - Discharge summary: Admitted 10/30 - 11/04/2021 for acute necrotizing pancreatitis. On cipro and flagyl for antibiotic coverage at that time. PAST MEDICAL HISTORY Diagnosis Date Cirrhosis (HCC) Hemochromatosis Hepatic cirrhosis (HCC) 05/20/2019 Hypertension Hypertensive retinopathy, bilateral Long-term current use of tacrolimus Maculopathy Portal hypertension (HCC) related to cirrhosis Psoriasis Varicose vein of leg Right leg PAST SURGICAL HISTORY Procedure Laterality Date EGD 10/2017 LIVER TRANSPLANT HX NECK SURGERY HX PICC LINE INSERT/CONSULT 07/19/2019 VENOUS THROMBOSIS IMAGING VENOGRAM BILATERAL FAMILY HISTORY Problem Relation Age of Onset COPD Mother Hypertension Mother other (Other) Mother varicose veins with procedure Colon Cancer Father Social History Tobacco Use Smoking status: Never Smokeless tobacco: Former Substance and Sexual Activity Alcohol use: Yes Comment: occasionally Drug use: No Sexual activity: Yes Partners: Female Comment: not asked ALLERGIES Allergen Reactions Penicillins Unknown Skin test positive 09/01/18 Midazolam Other: See Comments Seasonal Allergies Unknown Review of Systems Constitutional: Positive for chills and fatigue. Negative for fever. HENT: Negative for sore throat. Respiratory: Negative for cough and shortness of breath. Cardiovascular: Negative for chest pain. Gastrointestinal: Positive for abdominal pain, diarrhea, nausea and vomiting. Genitourinary: Negative for difficulty urinating. Musculoskeletal: Negative for arthralgias. Skin: Negative for wound. Allergic/Immunologic: Negative for immunocompromised state. Neurological: Negative for dizziness, light-headedness and headaches. Hematological: Does not bruise/bleed easily. Psychiatric/Behavioral: Negative for agitation. Physical Exam Vitals [08/31/22 1632] BP Pulse Temp Temp src Resp SpO2 Weight Height (!) 157/115 (!) 105 36.4 ?C (97.5 ?F) Oral 20 100 % 99.8 kg (220 lb) 1.829 m (6') Physical Exam Constitutional: Nursing triage notes reviewed. Vital signs reviewed. Awake, Alert, and No acute distress HENT Head atraumatic, normocephalic Eyes No discharge and Nonicteric Neck Supple Lungs Clear to auscultation. No wheezes, rales, or rhonchi Heart tachycardic rate and regular rhythm, No murmurs, No rubs, and No gallops Abdomen Soft, Nondistended, diffuse tenderness to palpation with associated guarding but no rebound. Well-healed postsurgical scar present. Back ROM to spine normal. Extremities. Full ROM all 4 extremities Neuro Alert and oriented. No gross focal deficit Skin No rash or lesion. Warm and dry Psych Normal affect, Good eye contact, Cooperative Diagnostic Testing ED Labs Ordered and Reviewed COMP METABOLIC PANEL - Abnormal; Notable for the following components: Result Value Ref Range Albumin 5.0 (*) 3.9 - 4.9 g/dL Bilirubin, Total 4.1 (*) 0.2 - 1.3 mg/dL Glucose 129 (*) 74 - 99 mg/dL Creatinine 1.66 (*) 0.73 - 1.22 mg/dL Chloride 95 (*) 97 - 105 mmol/L CO2 21 (*) 22 - 30 mmol/L Anion Gap 21 (*) 9 - 18 mmol/L Estimated Glomerular Filtration Rate 54 (*) >=60 mL/min/1.73m? All other components within normal limits MAGNESIUM BLD - Abnormal; Notable for the following components: Magnesium 1.6 (*) 1.7 - 2.3 mg/dL All other components within normal limits LIPASE BLD - Abnormal; Notable for the following components: Lipase 894 (*) 16 - 61 U/L All other components with (more content not included)... Normal [facility] Lipase SerPl-cCncon 08-31-19 Lipase [Catalytic activity/Vol] 894 U/L High 16-61 [facility] Comment on above: Order Comment: Speci men Type: BLOOD SPECIMEN [facility] Address: [address] [address] Performed By: #### 5 763-8, COPPER #### [facility] CLIA [id number] [address] [facility] [address] [place] Magnesium SerPl-mCncon 08-31 Magnesium [Mass/Vol] 1.6 mg/dL Low 1.7-2.3 [facility] Comment on above: Order Comment: Speci men Type: BLOOD SPECIMENOrdering Facility: [facility] Address: [address] Performed By: #### 2 4323-8, 27992-1, 3040-3, 17131-5, 31194-3 ####[facility] LABCLIA [id number] [place] [address] [place] PT panel Coag (PPP)on 2022 INR Coag (PPP) [Relative time] 1.2 {INR} Normal 0.9-1.3 [facility] Comment on above: Order Comment: Specjake madrid Type: BLOOD SPECIMEN [facility] Address: [address] [phone] Result Comment: Aster min K Antagonist (VKA) Therapeutic Range: INR 2 to 3 (Target INR of 2.5) Note: For patients treated with VKA drugs, such as warfarin, the [place] [employer] 2012 Guideline recommends a therapeutic INR range of 2 to 3 (target INR of 2.5). This recommendation includes high-risk patients with antiphospholipid syndrome with previous arterial or venous thromboembolism, current-generation mechanical or bioprosthetic aortic heart valve replacement. Note: Patients with mechanical aortic valve replacement and additional risk factors for thromboembolic events (atrial fibrillation, previous thromboembolism, LV dysfunction, hypercoagulable conditions) or an older generation mechanical AVR (i.e., ball in-Cage) or any mechanical MVR should have a INR therapeutic range of 2.5 to 3.5 (target INR of 3). Scotty ARRIAGA, et al. Chest 2012, 141:7S-47S Goldie RA, et al. [facility] 2017, 70: 252-289 Performed By: #### 5 0189-0, , 2132-03 #### [facility] CLIA [id number] [address] [address] [place] PT Coag (PPP) [Time] 12.7 s Normal 9.7-13.0 [facility] Comment on above: Order Comment: Noe madrid Type: BLOOD SPECIMEN [facility] Address: [address] [place] [address] Performed By: #### 5 0189-0, , 2132-9 #### [facility] CLIA [id number] [address] [place] [address] [place] Procalcitonin SerPl-mCncon 0 08-31-2022 Procalcitonin [Mass/Vol] ng/mL Normal <0.09 [facility] Comment on above: Order Comment: Speci men Type: BLOOD SPECIMEN [facility] Address: [address] [place] [address] Result Comment: For a guided interpretation of test results, please visit the Change in Procalcitonin Calculator, [email or web address]. Performed By: #### 5 763-8, COPPER #### [facility] CLIA [id number] [address] [place] [address] [place] SARS-CoV-2 RNA Resp Ql NOLBERTO+p robeon 08-31-2022 SARS-CoV-2 (COVID-19) RNA NOLBERTO+probe Ql (Resp) COVID 19 RESULT: Not detected The method used is RT-PCR or an equivalent NAAT method. Reference Range(the expected result in uninfected individuals): Not detected Normal [facility] Comment on above: Performed By: #### 2 4323-8 #### [facility] CLIA [id number] [address] [place] [address] [place] Tacrolimus Bld-mCncon 2022 Tacrolimus (Bld) [Mass/Vol] 7.5 ng/mL Normal 5.0-20.0 [facility] Comment on above: Order Comment: Speci men Type: BLOOD SPECIMEN [facility] Address: [address] [place] [address] Result Comment: Thes e reference ranges are provided as a general recommendation. Individualized target levels for a given patient will depend on many factors (including the type of organ transplant, time since transplantation, concurrent medications, and other clinical factors), and should be assessed by those health care providers experienced in the management of immunosuppression. Reference ranges and high/low indicator flags are provided as general guidelines only. The treating physician must determine appropriate target levels/dosing based on the specific clinical situation. Test performed by chemiluminescent immunoassay using Schuler Lacquer Sizer. Performed By: #### V ITB6 #### [facility] CLIA [id number] [address] [place] [address] Tacrolimus (Bld) [Mass/Vol] 7.3 ng/mL Normal 5.0-20.0 [facility] Comment on above: Order Comment: Noe madrid Type: BLOOD SPECIMEN [facility] Address: [address] [place] [address] Result Comment: Thes e reference ranges are provided as a general recommendation. Individualized target levels for a given patient will depend on many factors (including the type of organ transplant, time since transplantation, concurrent medications, and other clinical factors), and should be assessed by those health care providers experienced in the management of immunosuppression. Reference ranges and high/low indicator flags are provided as general guidelines only. The treating physician must determine appropriate target levels/dosing based on the specific clinical situation. Test performed by chemiluminescent immunoassay using Schuler Lacquer Sizer. Performed By: #### 2 4323-8 #### [facility] CLIA [id number] [address] [place] [address] [place] CBC W Auto Differential pane l (Bld)on 07-07-2022 Basophils (Bld) [#/Vol] 10*3/uL Normal <0.11 [facility] Comment on above: Order Comment: Noe madrid Type: BLOOD SPECIMEN [facility] Address: [address] [place] [address] Performed By: #### 5 0189-0, , 2132-03 #### [facility] CLIA [id number] [address] STATES OF [facility] Basophils/100 WBC (Bld) 0.2 % Normal [facility] Comment on above: Order Comment: Noe madrid Type: BLOOD SPECIMEN [facility] Address: [address] [place] [address] Performed By: #### 5 0189-0, 05117-32132-03 #### [facility] CLIA [id number] [address] [place] [address] [place] Differential cell count method Nom (Bld) Auto Normal [facility] Comment on above: Order Comment: Speci men Type: BLOOD SPECIMEN [facility] Address: [address] [place], [place] [address] Performed By: #### 5 0189-0, , 2132-03 #### [facility] CLIA [id number] [address] [place] [address] [place] Eosinophils (Bld) [#/Vol] 0.10 10*3/uL Normal <0.46 [facility] Comment on above: Order Comment: Speci men Type: BLOOD SPECIMEN [facility] Address: [address] [place], [place] [address] Performed By: #### 5 0189-0, , 2132-03 #### [facility] CLIA [id number] [address] [place] [address] [place] Eosinophils/100 WBC (Bld) 2.0 % Normal [facility] Comment on above: Order Comment: Speci men Type: BLOOD SPECIMEN [facility] Address: [address] [place], [place] [address] Performed By: #### 5 0189-0, , 2132-03 #### [facility] CLIA [id number] [address] [place] [address] [place] Erythrocyte distribution width (RBC) [Ratio] 12.9 % Normal 11.5-15.0 [facility] Comment on above: Order Comment: Speci men Type: BLOOD SPECIMEN [facility] Address: [address] [place], [place] [address] Performed By: #### 5 0189-0, , 2132-03 #### [facility] CLIA [id number] [address] [place] [address] [place] Hematocrit (Bld) [Volume fraction] 39.1 % Normal 39.0-51.0 [facility] Comment on above: Order Comment: Speci men Type: BLOOD SPECIMEN [facility] Address: [address] [place] [address] Performed By: #### 5 0189-0, , 2132-03 #### [facility] CLIA [id number] [address] [place] [address] [place] Hemoglobin (Bld) [Mass/Vol] 13.3 g/dL Normal 13.0-17.0 [facility] Comment on above: Order Comment: Speci men Type: BLOOD SPECIMEN [facility] Address: [address] [place] [address] Performed By: #### 5 0189-0, , 2132-03 #### [facility] CLIA [id number] [address] [place] [address] [place] Immature granulocytes (Bld) [#/Vol] 0.03 10*3/uL Normal <0.10 [facility] Comment on above: Order Comment: Speci men Type: BLOOD SPECIMEN [facility] Address: [address] [place], [place] [phone] Performed By: #### 5 0189-0, , 2132-03 #### [facility] CLIA [id number] [address] [place] [address] [place] Immature granulocytes/100 WBC (Bld) 0.6 % Normal [facility] Comment on above: Order Comment: Speci men Type: BLOOD SPECIMEN [facility] Address: [address] [place], [place] [phone] Performed By: #### 5 0189-0, , 2132-03 #### [facility] CLIA [id number] [address] [place] [address] [place] Lymphocytes (Bld) [#/Vol] 0.36 10*3/uL Low 1.00-4.00 [facility] [facility] Comment on above: Order Comment: Speci men Type: BLOOD SPECIMEN Ordering Facility: [facility] Address: [address] [place] [address] Performed By: #### 5 0189-0, 12512-3, 2132-03 #### [facility] CLIA [id number] [address] [place] [address] [place] Lymphocytes/100 WBC (Bld) 7.3 % Normal [facility] Comment on above: Order Comment: Speci men Type: BLOOD SPECIMEN Ordering Facility: [facility] Address: [address] [place] [address] Performed By: #### 5 0189-0, , 2132-03 #### [facility] CLIA [id number] [address] [place] [address] [place] MCH (RBC) [Entitic mass] 31.1 pg Normal 26.0-34.0 [facility] Comment on above: Order Comment: Speci men Type: BLOOD SPECIMEN Ordering Facility: [facility] Address: [address] [place] [address] Performed By: #### 5 0189-0, , 2132-03 #### [facility] CLIA [id number] [address] [place] [address] [place] MCHC (RBC) [Mass/Vol] 34.0 g/dL Normal 30.5-36.0 [facility] Comment on above: Order Comment: Speci men Type: BLOOD SPECIMEN Ordering Facility: [facility] Address: [address] [place] [address] Performed By: #### 5 0189-0, 77535-6, 2132-03 #### [facility] CLIA [id number] [address] [place] [address] [place] MCV (RBC) [Entitic vol] 91.6 fL Normal 80.0-100.0 [facility] Comment on above: Order Comment: Speci men Type: BLOOD SPECIMEN Ordering Facility: [facility] Address: [address] [place] [address] Performed By: #### 5 0189-0, 65228-0, 2132-03 #### [facility] CLIA [id number] [address] [place] [address] [place] Monocytes (Bld) [#/Vol] 0.55 10*3/uL Normal <0.87 [facility] Comment on above: Order Comment: Speci men Type: BLOOD SPECIMEN Ordering Facility: [facility] Address: [address] [place] [address] Performed By: #### 5 0189-0, , 2132-03 #### [facility] CLIA [id number] [address] [place] [address] [place] Monocytes/100 WBC (Bld) 11.1 % Normal [facility] Comment on above: Order Comment: Speci men Type: BLOOD SPECIMEN Ordering Facility: [facility] Address: [address] [place] [address] Performed By: #### 5 0189-0, , 2132-03 #### [facility] CLIA [id number] [address] [place] [address] [place] Neutrophils (Bld) [#/Vol] 3.89 10*3/uL Normal 1.45-7.50 [facility] Comment on above: Order Comment: Speci men Type: BLOOD SPECIMEN Ordering Facility: [facility] Address: [address] [place], [place] [address] Performed By: #### 5 0189-0, , 2132-03 #### [facility] CLIA [id number] [address] [place] [address] [place] Neutrophils/100 WBC (Bld) 78.8 % Normal [facility] Comment on above: Order Comment: Speci men Type: BLOOD SPECIMEN Ordering Facility: [facility] Address: [address] [place] [address] Performed By: #### 5 0189-0, , 2132-03 #### [facility] CLIA [id number] [address] [place] [address] [place] Nucleated RBC (Bld) [#/Vol] 10*3/uL Normal <0.01 [facility] Comment on above: Order Comment: Speci men Type: BLOOD SPECIMEN Ordering Facility: [facility] Address: [address] [place] [address] Performed By: #### 5 0189-0, , 2132-03 #### [facility] CLIA [id number] [address] [place] [address] [place] Nucleated RBC/100 WBC (Bld) [Ratio] 0.0 /100 WBC Normal [facility] Comment on above: Order Comment: Speci men Type: BLOOD SPECIMEN Ordering Facility: [facility] Address: [address] [place] [address] Performed By: #### 5 0189-0, , 2132-03 #### [facility] CLIA [id number] [address] [place] [address] [place] Platelet mean volume (Bld) [Entitic vol] 12.4 fL Normal 9.0-12.7 [facility] Comment on above: Order Comment: Speci men Type: BLOOD SPECIMEN Ordering Facility: [facility] Address: [address] [place] [address] Performed By: #### 5 0189-0, , 2132-03 #### [facility] CLIA [id number] [address] [place], [place] [address] [place] Platelets (Bld) [#/Vol] 76 10*3/uL Low 150-400 [facility] Comment on above: Order Comment: Speci men Type: BLOOD SPECIMEN Ordering Facility: [facility] Address: [address] [place], [place] [address] Result Comment: Resu lts checked and verified.No clot detected. Performed By: #### 5 0189-0, 46467-9, 2132-03 #### [facility] CLIA [id number] [address] [place] [address] [place] RBC (Bld) [#/Vol] 4.27 10*6/uL Normal 4.20-6.00 [facility] Comment on above: Order Comment: Speci men Type: BLOOD SPECIMEN Ordering Facility: [facility] Address: [address] [place] [address] Performed By: #### 5 0189-0, 90443-5, 2132-03 #### [facility] CLIA [id number] [address] [place] [address] [place] WBC (Bld) [#/Vol] 4.94 10*3/uL Normal 3.70-11.00 [facility] Comment on above: Order Comment: Speci men Type: BLOOD SPECIMEN Ordering Facility: [facility] Address: [address] [place] [address] Performed By: #### 5 0189-0, 11287-0, 2132-03 #### [facility] CLIA [id number] [address] [place] [address] [place] Comprehensive metabolic 2000 panelon 07-07-2022 Albumin [Mass/Vol] 4.6 g/dL Normal 3.9-4.9 [facility] Comment on above: Order Comment: Speci men Type: BLOOD SPECIMENOrdering Facility: [facility] Address: [address] [place] [address] Performed By: #### 2 4323-8, 2324-2, 75248-1 ####[facility] [id number] [address] [address] [place]#### 34377-8 ####[facility]IA [id number] [address] [address] [facility] [place] LABORATORYCLIA [id number] [place] [address] [place] ALP [Catalytic activity/Vol] 59 U/L Normal 38-113 [facility] Comment on above: Order Comment: Speci men Type: BLOOD SPECIMENOrdering Facility: [facility] Address: [address] [place] [address] Performed By: #### 2 4323-8, 2323-08, ####[facility]IA [id number] [place] [address] [place]#### 26868-8 ####[facility]CLIA [id number] [address] [address] [place] [address] LABORATORYCLIA [id number] [place] [address] [place] ALT [Catalytic activity/Vol] 46 U/L Normal 10-54 [facility] Comment on above: Order Comment: Speci men Type: BLOOD SPECIMENOrdering Facility: [facility] Address: [address] [place] [id number] Performed By: #### 2 4323-8, 2, ####[facility]CLIA [id number] [address] [address] [place]#### 29702-7 ####[facility]IA [id number] [address] [address] [place] [facility] [place] LABORATORYCLIA [id number] [place] [address] [place] Anion gap [Moles/Vol] 13 mmol/L Normal 9-18 [facility] Comment on above: Order Comment: Speci men Type: BLOOD SPECIMENOrdering Facility: [facility] Address: [address] [place] [address] Performed By: #### 2 4323-8, 2323-08, ####[facility]CLIA [id number] [place] [address] [place]#### 81162-1 ####[facility] LABCLIA [id number] [facility] [address] LABORATORYCLIA [id number] [place] [address] [place] AST [Catalytic activity/Vol] 30 U/L Normal 14-40 [facility] Comment on above: Order Comment: Speci men Type: BLOOD SPECIMENOrdering Facility: [facility] Address: [address] [place] Performed By: #### 2 4322-8, 2323-08, ####[facility] LABCLIA [id number] [place] [address] [place]#### 42474-9 ####[facility] LABCLIA [id number] [place] [address] [place] OF [facility] [place] LABORATORYCLIA [id number] [place] [address] [place] Bilirubin [Mass/Vol] 0.9 mg/dL Normal 0.2-1.3 [facility] Comment on above: Order Comment: Speci men Type: BLOOD SPECIMENOrdering Facility: [facility] Address: [address] [place] [phone] Performed By: #### 2 4323-8, 2323-08, ####[facility] LABCLIA [id number] [place] [address] [place]#### 42455-8 ####[facility] LABCLIA [id number] [place] [address] [facility] LABORATORYCLIA [id number] [place] [address] [place] Calcium [Mass/Vol] 9.7 mg/dL Normal 8.5-10.2 [facility] Comment on above: Order Comment: Speci men Type: BLOOD SPECIMENOrdering Facility: [facility] Address: [address] Performed By: #### 2 4323-8, 2323-2, ####[facility] LABCLIA [id number] [place] [address] [place]#### 15543-0 ####[facility] LABCLIA [id number] [address] LABORATORYCLIA [id number] [place] [address] [place] Chloride [Moles/Vol] 104 mmol/L Normal 97-105 [facility] Comment on above: Order Comment: Speci men Type: BLOOD SPECIMENOrdering Facility: [facility] Address: [address] [place] [address] Performed By: #### 2 4323-8, 2323-2, ####[facility] LABCLIA [id number] [place] [address] [place]#### 59017-5 ####[facility] LABCLIA [id number] [place] [address] [place] [facility] LABORATORYCLIA [id number] [place] [address] [place] CO2 [Moles/Vol] 24 mmol/L Normal 22-30 [facility] Comment on above: Order Comment: Speci men Type: BLOOD SPECIMENOrdering Facility: [facility] Address: [address] [place] [phone] Performed By: #### 2 4323-8, 4-2, ####[facility] LABCLIA [id number] [place] [address] [place]#### 56939-5 ####[facility] LABCLIA [id number] [address] LABORATORYCLIA [id number] [place] [address] [place] Creatinine [Mass/Vol] 1.14 mg/dL Normal 0.73-1.22 [facility] Comment on above: Order Comment: Speci men Type: BLOOD SPECIMENOrdering Facility: [facility] Address: [address] [place] [address] Performed By: #### 2 4323-8, 2323-2, ####[facility] LABCLIA [id number] [place] [address] [place]#### 65121-1 ####[facility] LABCLIA [id number] [address] LABORATORYCLIA [id number] [place] [id number] [place] ESTIMATED GLOMERULAR FILTRATION RATE 85 mL/min/1.73m??? Normal >=60 [facility] Comment on above: Order Comment: Speci men Type: BLOOD SPECIMENOrdering Facility: [facility] Address: [address] [place] [address] Result Comment: Brenda mated Glomerular Filtration Rate (eGFR) is calculated using the 2020 CKD-EPI creatinine equation. This equation utilizes serum creatinine, sex, and age as parameters. The creatinine assay has traceable calibration to isotope dilution-mass spectrometry. Refer to KDIGO guidelines for clinical interpretation. In patients with unstable renal function, e.g. those with acute kidney injury, the eGFR may not accurately reflect actual GFR. Performed By: #### 2 4323-8, 4-2, ####[facility] LABCLIA [id number] [address] [address] [place]#### 24337-8 ####[facility] LABCLIA [id number] [address] [address] [facility] LABORATORYCLIA [id number] [place] [address] [place] Glucose [Mass/Vol] 109 mg/dL High 74-99 [facility] Comment on above: Order Comment: Speci men Type: BLOOD SPECIMENOrdering Facility: [facility] Address: [address] [place] [address] [place] [id number] Result Comment: The [place] Diabetes Association (ADA) provides guidance for cutoff values for fasting glucose and random glucose. The ADA defines fasting as no caloric intake for at least 8 hours. Fasting plasma glucose results between 100 to 125 mg/dL indicate increased risk for diabetes (prediabetes). Fasting plasma glucose results greater than or equal to 126 mg/dL meet the criteria for diagnosis of diabetes. In the absence of unequivocal hyperglycemia, results should be confirmed by repeat testing. In a patient with classic symptoms of hyperglycemia or hyperglycemic crisis, random plasma glucose results greater than or equal to 200 mg/dL meet the criteria for diagnosis of diabetes. Reference: Standards of Medical Care in Diabetes 2016, [place] Diabetes Association. Diabetes Care. 2016.39(Suppl 1). Performed By: #### 2 4323-8, 2323-2, ####[facility] LABCLIA [id number] [address] [address] [place]#### 04194-8 ####[facility] LABCLIA [id number] [address] [address] [place] STATES OF [facility] LABORATORYCLIA [id number] [place] [address] [place] Potassium [Moles/Vol] 4.3 mmol/L Normal 3.7-5.1 [facility] Comment on above: Order Comment: Speci men Type: BLOOD SPECIMENOrdering Facility: [facility] Address: [address] [facility] [facility] [place] [address] Performed By: #### 2 3-8, 2323-08, ####[facility] LABCLIA [id number] [place] [address] [place]#### 40740-3 ####[facility] LABCLIA [id number] [facility] [address] [facility] LABORATORYCLIA [id number] [place] [address] [place] Protein [Mass/Vol] 7.6 g/dL Normal 6.3-8.0 [facility] Comment on above: Order Comment: Speci men Type: BLOOD SPECIMENOrdering Facility: [facility] Address: [address] [place] [address] Performed By: #### 2 8, 2323-08, ####[facility] LABCLIA [id number] [place] [address] [place]#### 82980-6 ####[facility] LABCLIA [id number] [address] [place] LABORATORYCLIA [id number] [place] [address] [place] Sodium [Moles/Vol] 141 mmol/L Normal 136-144 [facility] Comment on above: Order Comment: Speci men Type: BLOOD SPECIMENOrdering Facility: [facility] Address: [address] [place] [address] Performed By: #### 2 4323-8, 2323-08, ####[facility] LABCLIA [id number] [place] [address] [place]#### 88276-6 ####[facility] LABCLIA [id number] [address] LABORATORYCLIA [id number] [place] [address] [place] Urea nitrogen [Mass/Vol] 21 mg/dL Normal 9-24 [facility] Comment on above: Order Comment: Speci men Type: BLOOD SPECIMENOrdering Facility: [facility] Address: [address] [place] [address] Performed By: #### 2 4323-8, 4-2, ####[facility] LABCLIA [id number] [place] [address] [place]#### 32766-5 ####[facility] LABIA [id number] [address] LABORATORYIA [id number] [place] [address] [place] GGT SerPl-cCncon 07-07-2022 Gamma glutamyl transferase [Catalytic activity/Vol] 54 U/L Normal 10-70 [facility] Comment on above: Order Comment: Speci men Type: BLOOD SPECIMENOrdering Facility: [facility] Address: [address] [place] [address] Performed By: #### 2 4323-8, 2323-2, ####[facility] LABCLIA [id number] [place] [address] [place]#### 41259-1 ####[facility] LABCLIA [id number] [place] [address] [place] STATES OF [facility] LABORATORYCLIA [id number] [place] [address] [place] Lipid 1996 panelon 2 Cholesterol [Mass/Vol] 180 mg/dL Normal <200 [facility] Comment on above: Order Comment: Speci men Type: BLOOD SPECIMENOrdering Facility: [facility] Address: [address] [place] [phone] Result Comment: <200 mg/dL, Desirable 200-239 mg/dL, Borderline high >239 mg/dL, High Performed By: #### 2 4323-8, 2324-2, ####[facility] LABCLIA [id number] [place] [address] [place]#### 13219-4 ####[facility] LABCLIA [id number] [address] OF [facility] [place] LABORATORYCLIA [id number] [address] [place] Cholesterol in HDL [Mass/Vol] 36 mg/dL Low >39 [facility] Comment on above: Order Comment: Speci men Type: BLOOD SPECIMENOrdering Facility: [facility] Address: [address] Result Comment: 40-5 9 mg/dL, Acceptable >59 mg/dL, High: Negative risk factor for coronary heart disease <40 mg/dL, Low: Positive risk factor for coronary heart disease Performed By: #### 2 4323-8, 4-2, ####[facility] LABCLIA [id number] [address] [place]#### 81860-5 ####[facility] LABCLIA [id number] [address] STATES OF [facility] [place] LABORATORYCLIA [id number] [address] [place] Cholesterol in LDL [Mass/Vol] 106 mg/dL High <100 [facility] Comment on above: Order Comment: Speci men Type: BLOOD SPECIMENOrdering Facility: [facility] Address: [address] [place] [address] Result Comment: <100 mg/dL, Optimal 100-129 mg/dL, Near optimal/above optimal 130-159 mg/dL, Borderline high 160-189 mg/dL, High >189 mg/dL, Very high Secondary prevention optimal LDL Cholesterol levels are recommended to be < 70 mg/dL Performed By: #### 2 4323-8, 4-2, ####[facility] LABCLIA [id number] [address] [address] [facility] OF [place]#### 39326-1 ####[facility] LABCLIA [id number] [place] [address] [facility] LABORATORYIA [id number] [address] Cholesterol in LDL/Cholesterol in HDL [Mass ratio] 2.94 {ratio} High <2.54 [facility] Comment on above: Order Comment: Speci men Type: BLOOD SPECIMENOrdering Facility: [facility] Address: [address] [place], [place] [address] Result Comment: Refredd green: 1. National Cholesterol Education Program ATP III Guideline At-A-Glance Quick Desk Reference: National Heart, Lung, and Blood [place]. National Institutes of Health. 2001: NIH Publication No. 01-3305. 2. An International Atherosclerosis Society position paper: global recommendations for the management of dyslipidemia: executive summary, Atherosclerosis. 2014: 232(2):410-413. Performed By: #### 2 4323-8, 2323-, ####[facility] LABCLIA [id number] [place] [address] [facility]#### 368[address]-0 ####[facility] LABCLIA [id number] [address] LABORATORYCLIA [id number] [place], [place] [address] [place] [address] STATES [address] [facility] Cholesterol in VLDL [Mass/Vol] 38 mg/dL High <30 [facility] Comment on above: Order Comment: Speci men Type: BLOOD SPECIMENOrdering Facility: [facility] Address: [address] [place] [address] Performed By: #### 2 4323-8, 2323-08, ####[facility] LABCLIA [id number] [place] [address] [place]#### 79706-6 ####[facility] LABCLIA [id number] [address] STATES OF [facility] LABORATORYCLIA [id number] [address] [place] Cholesterol non HDL [Mass/Vol] 144 mg/dL High <130 [facility] Comment on above: Order Comment: Speci men Type: BLOOD SPECIMENOrdering Facility: [facility] Address: [address] [place] [address] Result Comment: <130 mg/dL, Optimal 130-159 mg/dL, Near optimal/above optimal 160-189 mg/dL, Borderline high 190-219 mg/dL, High >219 mg/dL, Very high Secondary prevention optimal non HDL Cholesterol levels are recommended to be <100 mg/dL Performed By: #### 2 432-8, 2323-08, ####[facility] LABCLIA [id number] [place] [address] [place]#### 24265-3 ####[facility] LABCLIA [id number] [place] [address] [place] [facility] LABORATORYCLIA [id number] [place] [address] [place] Cholesterol.total/Chol esterol in HDL [Mass ratio] 5.00 {ratio} Normal <5.10 [facility] Comment on above: Order Comment: Speci men Type: BLOOD SPECIMENOrdering Facility: [facility] Address: [address] [place] [phone] Performed By: #### 2 4323-8, 2323-08, ####[facility] LABCLIA [id number] [place] [address] [place]#### 53878-9 ####[facility] LABCLIA [id number] [facility] [address] [address] [facility] [place] LABORATORYCLIA [id number] [place] [address] [place] FASTING TIME 1 hrs Normal [facility] Comment on above: Order Comment: Speci men Type: BLOOD SPECIMENOrdering Facility: [facility] Address: [address] [place] [phone] Result Comment: veronica ent had lunch Performed By: #### 2 3-8, 2323-08, ####[facility] LABCLIA [id number] [place] [address] [place]#### 79798-1 ####[facility] LABCLIA [id number] [place] [address] [facility] LABORATORYCLIA [id number] [place] [address] [place] Triglyceride [Mass/Vol] 190 mg/dL High <150 [facility] Comment on above: Order Comment: Speci men Type: BLOOD SPECIMENOrdering Facility: [facility] Address: [address] [place] [id number] Result Comment: <150 mg/dL, Normal 150-199 mg/dL, Borderline high 200-499 mg/dL, High >499 mg/dL, Very high Performed By: #### 2 4323-8, 2323-08, ####[facility] LABCLIA [id number] [address] [address] [place]#### 19079-9 ####[facility] LABCLIA [id number] [place] AVENUEDESK [id number] [place] LABORATORYCLIA [id number] [place] [address] [place] Magnesium SerPl-nc 07-07 Magnesium [Mass/Vol] 1.7 mg/dL Normal 1.7-2.3 [facility] Comment on above: Order Comment: [place] Type: BLOOD SPECIMENOrdering Facility: [facility] Address: [address] [place] [address] Performed By: #### 2 4323-8, 2324-2, 20755-6 ####[facility] LABCLIA [id number] [address] OF [place]#### [id number] ####[facility] LABCLIA [id number] [address] LABORATORYCLIA [id number] [place] [address] [place] Phosphate SerPl-ncon 07-07 Phosphate [Mass/Vol] 3.6 mg/dL Normal 2.7-4.8 [facility] Comment on above: Order Comment: Noe [place] Type: BLOOD SPECIMENOrdering Facility: [facility] Address: [address] [place] [address] Performed By: #### 2 [id number] ####[facility] LABCLIA [id number] [place] [address] [place] Tacrolimus Bld-ncon 2021 Tacrolimus (Bld) [Mass/Vol] 3.0 ng/mL Low 5.0-20.0 [facility] Comment on above: Order Comment: Noe [place] Type: BLOOD SPECIMEN Ordering Facility: [facility] Address: [address] [place] [address] Result Comment: Thes e reference ranges are provided as a general recommendation. Individualized target levels for a given patient will depend on many factors (including the type of organ transplant, time since transplantation, concurrent medications, and other clinical factors), and should be assessed by those health care providers experienced in the management of immunosuppression. Reference ranges and high/low indicator flags are provided as general guidelines only. The treating physician must determine appropriate target levels/dosing based on the specific clinical situation. Test performed by chemiluminescent immunoassay using Schuler Lacquer Sizer. Performed By: #### V ITB6 #### [facility] [employer] CLIA [id number] [address] [place] [address] CNPNon 03-24-2022 CNPN Telephone (TXCTMN) CHUCKIE VILLALTA ([id number]) 1985 M TRN Date Time Provider Department 03/24/22 NADJA SPENCER TXCTMN During your visit today, we recorded the following information about you: Nadja Spencer RN 03/24/2022 1:18 PM Signed I sent patient a reminder to have lab work drawn as soon as possible as he has not had labs drawn in some time. Encouraged him to reach out with questions. Nadja Spencer (Cassie) RN, BSN [employer] T[employer] Worker Allergies As of Date: 03/24/2022 Noted Allergy Reaction PENICILLINS 16 - Unknown Comments: Skin test positive 09/01/18 MIDAZOLAM 02/18/2021 14 - Other: See Comments SEASONAL ALLERGIES 06/29/2018 16 - Unknown Date Reviewed: 12/27/2021 Reviewed by: Carlos Muñoz RN - Fully Assessed Reason for Visit: Reminder To Have Labs Drawn [0016] Prescriptions as of 03/24/2022 - iv contrast (will be provided with radiology test) CT ABD W -Inject, intravenously, once for 1 dose.No IV access, insert saline lock prior to the beginning of sedation, infusion, injection of imaging exam. Discontinue saline lock post exam. If Pt. has a central line or IVAD, may access for administration according to line specific nursing protocol. Once exam is complete flush line and de-access according to line specific nursing protocol in the CT contrast administration guidelines link. - enteric contrast (will be provided with radiology test) For CT ABD W IVCON order Administer, As Directed One Time Only, via Oral, Rectal, both Oral and Rectal, Enteric Tube, Stoma or Indwelling Catheter, Enteric Contrast as designated per enteric contrast guidelines - tacrolimus IR (PROGRAF) 1 mg capsule Please take 2mg in the morning and 1mg in the evening for a total of 3mg a day. - sulfamethoxazole-trimet hoprim (BACTRIM DS,SEPTRA DS) 800-160 mg per tablet TAKE 1 TABLET BY MOUTH EVERY THURSDAY,THURSDAY,THURSDAY . - carvedilol (COREG) 12.5 mg tablet Take 1 tablet by mouth twice daily. - pantoprazole DR (PROTONIX) 40 mg tablet Take 1 tablet by mouth DAILY (6 AM). - magnesium oxide (MAG-OX) 400 mg (241.3 mg magnesium) tablet Take 1 tablet by mouth twice daily. - amLODIPine (NORVASC) 10 mg tablet TAKE 1 TABLET BY MOUTH ONCE DAILY. Problem List As Of Date 03/24/2022 Noted Resolved Hemochromatosis [E83.119] 03/18/2018 Cellulitis [L03.90] 07/13/2018 Obesity, Class I, BMI 30-34.9 [E66.9] 07/14/2018 Severe protein-calorie malnutrition (HCC) [E43] 07/14/2018 Drug reaction [T50.905A] 09/01/2018 Seasonal allergic rhinitis due to pollen [J30.1]09/01/2018 Hepatic cirrhosis (HCC) [K74.60] 05/20/2019 08/03/2019 Liver transplant recipient (HCC) [Z94.4] 07/10/2019 Respiratory failure, post-operative (HCC) [J95.*07/11/2019 07/12/2019 Postoperative anemia [D64.9] 07/11/2019 Coagulopathy (HCC) [D68.9] 07/11/2019 08/03/2019 Acute pain [R52] 07/11/2019 08/03/2019 Elevated blood-pressure reading without diagnos*07/13/2019 Immunosuppressive management encounter followin*07/15/2019 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.*07/19/2019 Acute abdominal pain [R10.9] 07/21/2019 08/03/2019 Peritonitis (HCC) [K65.9] 07/25/2019 08/03/2019 Acute pancreatitis [K85.90] 07/05/2021 YOAN (acute kidney injury) (HCC) [N17.9] 07/05/2021 Hypomagnesemia [E83.42] 07/05/2021 Pancreatitis [K85.90] 07/05/2021 Primary hypertension [I10] 07/05/2021 Necrotizing pancreatitis [K85.91] 10/30/2021 Encounter Status:Closed by NADJA SPENCER on 03/24/22 Normal [facility] CNOVon 02-25-2022 CNOV Office Visit (PSCHL) CHUCKIE VILLALTA ([id number]) 1985 M TRN Date Time Provider Department 02/25/22 9:00 AM ROSEMARIE SHEPARD During your visit today, we recorded the following information about you: SHAQ Chua 02/25/2022 10:46 AM Signed [facility] Assessment Visit Type:Virtual Visit utilizing two-way audio and video for at least a portion of the visit IDENTIFYING INFORMATION: [phone] [email or web address] Lives with of nine years, Екатерина and one daughter age five Duration of Interview: start time 9:15 and end time 10:30 pm REFERRAL SOURCE: SHAQ Jaimes liver transplant team BENEFITS: Payor: MEDICARE / Plan: MEDICARE A AND B / Product Type: Medicare / INFORMED CONSENT: Patient completed evaluation via virtual MyChart encounter due to COVID-19. Patient verbally consented to virtual evaluation. Patient and this principal technical writer present during interview. PRECIPITATING PROBLEM(S):Patient was dx with liver disease in 2017. Completed an IOP at [facility] in summer 2018, and received liver transplant in June 2019. He relapsed about four months after the transplant in 2020. Patient states I've had periods of relapse for long periods of time since high school. Currently attends weekly AA meetings and some on line meetings. Last drink 12/27/21. States he would drink weekly binging with vodka. No other drug use. One DUI at age 19. Current withdrawal symptoms: none HISTORY OF PRESENT ILLNESS: ALCOHOL: How old were you at your first use of alcohol: Age 16, every other weekend. Went to [employer] for college drank heavily on weekends, then turned 21 and drinking progressed. Had periods of sobriety sometimes over a year. Peak of Use: When my dad had cancer and when I was [age]. Daily drinking for months as much as I could function with. Any Current Use: No Last drink: 12/27/21, Substance Misuse Reported: Yes Use Disorder Criteria-- eleven criteria Over the last twelve months: Substance is often taken in larger amounts or over a longer period than was intended?Yes There is a persistent desire or unsuccessful efforts to cut down or control substance use? Yes A great deal of time is spent in activities necessary to obtain the substance, use the substance, or recover from its effects? Yes Craving or a strong desire or urge to use the substance is present? No Recurrent substance use has resulted in a failure to fulfill major role obligations at work, school, or home? Yes Substance use has continued despite having persistent or recurrent social or interpersonal problems caused or exacerbated by the effects of the substance? Yes Important social, occupational, or recreational activities are given up or reduced because of the substance use? Yes one DUI, transplant that took him out of work Recurrent substance use in situations in which it is physically hazardous? Yes Continued substance use despite knowledge of having a persistent or recurrent physical or psychological problem that is likely to have been caused or exacerbated by the substance? Yes Tolerance, as defined by either of the following: A need for markedly increased amounts of the substance to achieve intoxication or desired effect. A markedly diminished effect with continued use of the same amount of the substance. This criterion is not considered to be met for those taking a substance solely under appropriate medical supervision Is the criterion met?Yes Withdrawal, as manifested by either of the following: The characteristic substance withdrawal syndrome. Members of the substance class are taken to relieve or avoid withdrawal symptoms This criterion is not considered to be met for those individuals taking a substance solely under appropriate medical supervision Is the criterion met?Yes Severity determination: Mild: Presence of 2-3 symptoms Moderate: Presence of 4-5 symptoms Severe: Presence of 6 or more symptoms OPIOIDS/HEROIN ETC: Ever Used: Never used this class of substance other than prescribed and took as needed. SEDATIVES/BENZODIAZEPIN ES: Ever Used: Never used this class of substance MARIJUANA: Ever Used: Never used this class of substance COCAINE: Ever Used: Never used this class of substance HALLUCINOGENS: Ever Used: Never used this class of substance INHALANTS (Gas, Glue, Whippets): Ever Used: Never used this class of substance AMPHETAMINE/SPEED: Ever Used: Never used this class of substance SYNTHETICS AND OTHER SUBSTANCES: Ever Used: Never used this class of substance TOBACCO: never smoked cigarettes Ever used any drugs by injection (IV, IM, skin popping): No General Substance-related disorder criteria: H/O Tolerance? Yes H/O Withdrawal Symptoms? Yes Substance is often taken in larger amounts or over a longer period than was intend (more content not included)... Normal [facility] CT ABDOMEN W IVCONon 022 [facility] Basic Metabolic Panlon 07-12 Anion gap [Moles/Vol] 8 mmol/L Low 9-18 [facility] Calcium [Mass/Vol] 8.6 mg/dL Normal 8.5-10.2 [facility] Chloride [Moles/Vol] 103 mmol/L Normal 97-105 [facility] CO2 [Moles/Vol] 24 mmol/L Normal 22-30 [facility] Creatinine [Mass/Vol] 2.67 mg/dL High 0.73-1.22 [facility] eGFR- Amer. 33 Normal [facility] eGFR-All Other Races 27 . Normal [facility] Comment on above: Result Comment: eGFR (Estimated GFR) Units of measure: mL/min/1.73 meters squared eGFR is derived from the reexpressed MDRD Study equation using the following parameters: serum creatinine, age, gender and race. The creatinine assay has been calibrated to be traceable to [employer]. An eGFR <60 mL/min/1.73m2 for >3 months is consistent with chronic kidney disease. Refer to KDOQI guidelines for clinical interpretation. In patients with unstable renal function, e.g. those with acute kidney injury, the eGFR may not accurately reflect actual GFR. Note: On 09/21/2021, the eGFR calculation will be updated to the NKF-ASN Task Force recommended 2020 CKD-EPI creatinine equation which does not include a race variable. For more information or to access a 2020 CKD-EPI calculator, visit the National Kidney Foundation website at kidney.org/professionals/kdoqi/gfr_calculator. Glucose [Mass/Vol] 113 mg/dL High 74-99 [facility] Comment on above: Result Comment: The [place] Diabetes Association (ADA) provides guidance for cutoff values for fasting glucose and random glucose. The ADA defines fasting as no caloric intake for at least 8 hours. Fasting plasma glucose results between 100 to 125 mg/dL indicate increased risk for diabetes (prediabetes). Fasting plasma glucose results greater than or equal to 126 mg/dL meet the criteria for diagnosis of diabetes. In the absence of unequivocal hyperglycemia, results should be confirmed by repeat testing. In a patient with classic symptoms of hyperglycemia or hyperglycemic crisis, random plasma glucose results greater than or equal to 200 mg/dL meet the criteria for diagnosis of diabetes. Reference: Standards of Medical Care in Diabetes 2016, [place] Diabetes Association. Diabetes Care. 2016.39(Suppl 1). Potassium [Moles/Vol] 3.3 mmol/L Low 3.7-5.1 [facility] Sodium [Moles/Vol] 135 mmol/L Low 136-144 [facility] Urea nitrogen [Mass/Vol] 11 mg/dL Normal 9-24 [facility] CASE MANAGEMon 07-12-2021 CASE MANAGEM HNO ID: [id number] Author: Nanette Dangelo RN Service: ? Author Type: Registered Nurse Type: Care Mgt Progress Note Filed: 07/12/2021 4:48 PM Note Text: CARE MANAGEMENT DISCHARGE NOTE SERVICE DATE: 07/12/2021 SERVICE TIME: 4:48 PM LOS: 7 days Admission Date: 07/05/2021 DISCHARGE ARRANGEMENT (list agency and phone number) Discharge Arrangement: Home with Self Care CAREGIVER ASSESSMENT: Caregiver is ready, willing and able to meet the patient's needs as recommended by the inter-professional team:: No Caregiver needed Does the patient have an acute stroke diagnosis, or has the patient had a stroke during this admission?: No Patient's transition needs and plan for meeting these needs: home HANDOFF COMMUNICATION: Handoff to: Primary Care Physician Primary Care Physician Name/Phone: Luis Abdalla DO TRANSPORTATION ARRANGEMENTS: Transportation Arrangements: Car Caregiver is ready, willing and able to meet the patient's needs as recommended by the inter-professional team:: No Caregiver needed Does the patient have an acute stroke diagnosis, or has the patient had a stroke during this admission?: No Needs Prior to Discharge: Ready for Discharge SIGNATURE: Nanette Dangelo RN PATIENT NAME: Chuckie Villalta DATE: July 12, 2021 TIME: 4:48 PM [facility] HNO ID: [id number] Author: Saba Hills MD Service: Hospital Medicine Author Type: Physician Type: Discharge Summary Filed: 07/12/2021 4:22 PM Note Text: DISCHARGE SUMMARY PATIENT NAME: Chuckie Villalta ADMISSION DATE: 07/05/2021 DISCHARGE DATE: 07/12/2021 ATTENDING PHYSICIAN: Saba Hills MD Code Status: Not on file PCP: Luis Abdalla DO Highest Readmission Risk Score: 20 The 30 day readmissions risk score is derived from an internally validated risk model which evaluates patient level characteristics, utilization history, medication orders and lab results up until the day of discharge. Patients with a score of 40 or above are considered highest risk for readmission. Specific patient level drivers will be listed at the bottom of the summary. TRANSITIONS OF CARE CRITICAL ISSUES: HERR MEDICATION CHANGES: N/A No new medications added LAB MONITORING NEEDED: Test CBC BMP tacrolimus level on Thursday When To be done on Thursday IMAGING FOLLOW-UP: Not applicable LABS AND PROCEDURES PENDING AT DISCHARGE: Test Results Not Yet Available from This Hospitalization: Please Review at Your Follow Up Appointment Order Current Status TACROLIMUS / FK-506 BLOOD (AK,AV,EU,FV,HL,KEEGAN,MM,S P) In process No pending results. FOLLOW UP: The appointment NEEDS TO BE scheduled. History hemochromatosis status post liver transplantation 07/11/2019 Was treated for moderate rejection soon after the transplant-history of multiple ERCPs in the past most recently July 15, 2020 for removal of biliary stent also at that time choledocholithiasis removed 07/05/2021 for management of acute pancreatitis Seen by GI team who initially recommended ERCP at [facility] but at this time planning to pursue this later as an outpatient. You received IV fluids and IV antibiotics and noted to have elevated renal function tests. Baseline creatinine of 1.2-1.3 was noted to be at 2.5 at the time of admission. Potassium was at 5.5. Also low magnesium levels were noted Vancomycin was later discontinued and we monitored tacrolimus levels. On 07/10/2021 the tacrolimus levels dropped down to 9.3ng/mL Low platelet counts are noted at 59,000 and the INR was 1.3. He was seen by infectious disease risk assessment consultant today who recommended adding G6PD to your labs. This will be done on Thursday. This can be followed up by the transplant team who will decide on the dosage for Bactrim DS. You were also seen by Dr. Murphy from ophthalmology.-His official note is pending at this time but as reported, he feels that your vision symptoms are from hypertensive retinopathy. His office will be scheduling you for a visit with retinal specialist. You were also seen by pain management technician while you are in the hospital. I have not added any pain medications due to near complete resolution of symptoms. You were seen by neurologist recently for the patient's symptoms. They will follow up as an outpatient also. Please follow-up with primary MD in 1 week Follow-up with transplant team at the earliest available appointment-nursing coordinator has promised to set up an appointment as an outpatient. Follow-up with nephrology as directed by them SECONDARY DIAGNOSIS: Principal Problem: Acute pancreatitis POA: Yes Active Problems: Hemochromatosis POA: Yes Liver transplant recipient (HCC) POA: Yes YOAN (acute kidney injury) (HCC) POA: Yes Hypomagnesemia POA: Yes Pancreatitis POA: Yes Primary hypertension POA: Yes Resolved Problems: * No resolved hospital problems. * OPERATIONS/PROCEDURE DURING THIS HOSPITALIZATION: * No surgery found * CONSULTS DURING HOSPITALIZATION: Treatment Team: Attending Provider: Saba Hills MD Attending: Renetta Higgins DO Consulting: Og Gibbs MD Orders Placed This Encounter Smoking Cessation Education Physician Consult Pain Management Consult CONSULT TO PAIN MANAGEMENT (AK,AV,EU,FV,KEEGAN,MM,SP) CONSULT TO [facility] NEPHROLOGY (AV,FV,MM) PHYSICIAN CONSULT (AK,AV,EU,FV,HL,KEEGAN,MM,S P) PATIENT CONDITION AT DISCHARGE: Stable ADVANCE CARE PLANNING DISCUSSION (if applicable): N/A DISCHARGE DISPOSITION: Home with Self Care Discharge Physical Exam: VITAL SIGNS: BP 113/64 Pulse 95 Temp 36.6 ?C (97.9 ?F) (Oral) Resp 14 Ht 182.9 cm (6') Wt 123.9 kg (273 lb 2.4 oz) SpO2 94% BMI 37.05 kg/m? GENERAL: Alert, no distress, cooperative SKIN: Skin color, texture, turgor normal. No rashes or lesions. LUNGS: Lungs clear to auscultation, Good diaphragmatic excursion ABDOMEN: Abdomen soft, non-tender, BS normal, No masses or organomegaly EXTREMITIES: Extremities normal, no deformities, edema, clubbing or skin discoloration. Good capillary refill., No ulcers NEURO: Gait normal. Reflexes normal and symmetric. Sensation grossly intact, Cranial nerves II-XII intact No focal deficits noted at this time No focal neurological deficits identified Vision (more content not included)... Normal [facility] CONSULTon 07-12-2021 CONSULT HNO ID: [id number] Author: Latrell Cabello MD Service: Infectious Disease Author Type: Physician Type: Consults Filed: 07/12/2021 7:04 PM Note Text: INFECTIOUS DISEASE - INITIAL CONSULT Service Date: July 12, 2021 Service Time: 12:08 PM Patient Name: Chuckie Villalta Date of : 1985 SUBJECTIVE: Source of information: Patient and EMR Provider requesting the consultation: Saba Hills MD Chief Complaint / Reason for Consult: Blurry vision HPI: Chuckie Villalta is a 35 year old male With past medical history of liver transplant 2019 due to hemochromatosis, portal hypertension, HTN, cirrhosis who presented with epigastric pain that was radiating to his back and associated nausea and vomiting for the past 2 to 3 days. Patient also described having loose stool. For his liver transplant he has been on tacrolimus for antirejection and Bactrim prophylaxis. On admission his white count was 29.32 the patient was afebrile. He was initially started on IV ciprofloxacin, IV Flagyl, and IV vancomycin. Blood cultures were negative to date. CT abdomen and pelvis obtained on admission showed evidence of extensive pancreatitis with inflammatory changes surrounding the transverse colon, spleen, and retroperitoneum. Small volume ascites was present. Patient was ultimately treated for acute pancreatitis. Patient does have history of anastomotic biliary strictures. Last ERCP was on 07/16 which showed resolution of the anastomotic biliary stricture. Right upper quadrant abdominal ultrasound showed mild intrahepatic ductal dilatation. LFTs were initially elevated but now downtrending. During the course of the admission the patient was describing blurry vision. An MRI of the brain was obtained that did not show any acute abnormality. Patient was given a temporary leave from the hospital to be evaluated by ophthalmology with results of examination pending. Patient is also to follow-up with ophthalmology as an outpatient. ID consulted given his history of immunosuppression and whether the blurry vision could be infectious in nature. Allergies: ALLERGIES Allergen Reactions - Penicillins Unknown Skin test positive 09/01/18 - Seasonal Allergies Unknown Current Antibiotics: Antibiotic / Dose / Interval Dates 1) held 2) 3) 4) 5) Current Medications: Current Facility-Administered Medications Medication Dose Route Frequency - potassium chloride ER 40 mEq tab(s) (K-DUR, KLOR-CON) 40 mEq ORAL ONCE - tacrolimus IR 2 mg cap(s) (PROGRAF) 2 mg ORAL q 12 H 6a/6p - sulfamethoxazole-trimet hoprim 800-160 mg 1 tablet (BACTRIM DS,SEPTRA DS) 1 tablet ORAL MO-WE-FR - ursodiol 300 mg cap(s) (ACTIGALL) 300 mg ORAL TID w MEALS - senna 8.6 mg tab(s) (SENOKOT) 8.6 mg ORAL BID PRN - oxyCODONE IR 5-10 mg tab(s) (ROXICODONE) 5-10 mg ORAL q 4 H PRN - acetaminophen 500 mg tab(s) (TYLENOL) 500 mg ORAL q 6 H PRN - amLODIPine 5 mg tab(s) (NORVASC) 5 mg ORAL DAILY - NaCl 0.9% iv flush bag 20 mL INTRAVENOUS PRN - carvedilol 12.5 mg tab(s) (COREG) 12.5 mg ORAL BID - magnesium oxide 400 mg tab(s) (MAG-OX) 400 mg ORAL BID - pantoprazole DR 40 mg tab(s) (PROTONIX) 40 mg ORAL DAILY (6 AM) - sodium chloride 0.9 % (flush) 3-5 mL (BD POSIFLUSH) 3-5 mL INTRAVENOUS q 12 H - ondansetron 4 mg tab(s) (ZOFRAN) 4 mg ORAL q 6 H PRN Or - ondansetron (PF) 4 mg injection (ZOFRAN) 4 mg INTRAVENOUS q 6 H PRN Outpatient Medications (Listed previous to this encounter): No current facility-administered medications on file prior to encounter. Current Outpatient Medications on File Prior to Encounter Medication Sig - pantoprazole DR (PROTONIX) 40 mg tablet TAKE 1 TABLET BY MOUTH EVERY DAY ON AN EMPTY STOMACH FOLLOWED IN 30 MINUTES BY BREAKFAST - tacrolimus IR (PROGRAF) 1 mg capsule TAKE 3 CAPSULES BY MOUTH TWICE DAILY. - irbesartan (AVAPRO) 75 mg tablet Take 75 mg by mouth daily at bedtime. - amLODIPine (NORVASC) 10 mg tablet TAKE 1 TABLET BY MOUTH ONCE DAILY. - carvedilol (COREG) 6.25 mg tablet Take 2 tablets by mouth twice daily. - magnesium oxide (MAG-OX) 400 mg (241.3 mg magnesium) tablet Take 1 tablet by mouth twice daily. - ursodiol (ACTIGALL) 300 mg capsule TAKE 1 CAPSULE BY MOUTH THREE TIMES DAILY WITH MEALS - sulfamethoxazole-trimet hoprim (BACTRIM DS,SEPTRA DS) 800-160 mg per tablet TAKE 1 TABLET BY MOUTH EVERY THURSDAY,THURSDAY,THURSDAY . Past Medical History: PAST MEDICAL HISTORY Diagnosis Date - Cirrhosis (HCC) - Hemochromatosis - Hepatic cirrhosis (HCC) 05/20/2019 - Hypertension - Portal hypertension (HCC) related to cirrhosis - Psoriasis - Varicose vein of leg Right leg Past Surgical History: PAST SURGICAL HISTORY Procedure Laterality Date - EGD 10/2017 - LIVER TRANSPLANT HX - NECK SURGERY HX - PICC LINE INSERT/CONSULT 07/19/2019 - VENOGRAM BILAT Social History / Exposure History: Social History Tobacco Use - Smoking status: Nev (more content not included)... [facility] CON[facility] 07-12-2021 CONSULT PROG HNO ID: [id number] Author: Justin Glasgow PA-C Service: Pain Management Author Type: Physician Production Manager Type: Consult Progress Note Filed: 07/12/2021 4:02 PM Note Text: Pain Management - Progress Note Name: Chuckie Villalta Date: July 12, 2021 Time: 3:49 PM ASSESSMENT: upper abdominal pain PLAN: Continue current inpatient analgesic regimen. SUBJECTIVE: Chuckie Villalta is a 35 year old male with upper abdominal pain. Patient reports that his analgesics have been suspended pending D/C. Pain scores overnight between 4-8/10 per [employer]. The patient's current inpatient analgesic regimen has not been reordered at this time. The patient currently rates his pain at 8/10. He states that the pain is worse since the previous evaluation on 07/11/21. The patient denies adverse effects associated with his analgesics. MEDICATIONS: Current Facility-Administered Medications Medication Dose Route Frequency - [Held on Transfer - Suspended Admission] NaCl 0.9% iv flush bag 20 mL INTRAVENOUS PRN - [Held on Transfer - Suspended Admission] carvedilol 12.5 mg tab(s) (COREG) 12.5 mg ORAL BID - [Held on Transfer - Suspended Admission] magnesium oxide 400 mg tab(s) (MAG-OX) 400 mg ORAL BID - [Held on Transfer - Suspended Admission] pantoprazole DR 40 mg tab(s) (PROTONIX) 40 mg ORAL DAILY (6 AM) - [Held on Transfer - Suspended Admission] sodium chloride 0.9 % (flush) 3-5 mL (BD POSIFLUSH) 3-5 mL INTRAVENOUS q 12 H - [Held on Transfer - Suspended Admission] ondansetron 4 mg tab(s) (ZOFRAN) 4 mg ORAL q 6 H PRN Or - [Held on Transfer - Suspended Admission] ondansetron (PF) 4 mg injection (ZOFRAN) 4 mg INTRAVENOUS q 6 H PRN - [Held on Transfer - Suspended Admission] amLODIPine 5 mg tab(s) (NORVASC) 5 mg ORAL DAILY - [Held on Transfer - Suspended Admission] acetaminophen 500 mg tab(s) (TYLENOL) 500 mg ORAL q 6 H PRN - [Held on Transfer - Suspended Admission] senna 8.6 mg tab(s) (SENOKOT) 8.6 mg ORAL BID PRN - oxyCODONE IR 5-10 mg tab(s) (ROXICODONE) 5-10 mg ORAL q 4 H PRN - [Held on Transfer - Suspended Admission] tacrolimus IR 2 mg cap(s) (PROGRAF) 2 mg ORAL q 12 H 6a/6p - [Held on Transfer - Suspended Admission] sulfamethoxazole-trimet hoprim 800-160 mg 1 tablet (BACTRIM DS,SEPTRA DS) 1 tablet ORAL -- - [Held on Transfer - Suspended Admission] ursodiol 300 mg cap(s) (ACTIGALL) 300 mg ORAL TID w MEALS - [Held on Transfer - Suspended Admission] potassium chloride ER 40 mEq tab(s) (K-DUR, KLOR-CON) 40 mEq ORAL ONCE LABS: CBC: No results for input(s): WBC, RBC, HB, HCT, PLT, MCV, MCH, MPV, RDW in the last 24 hours. CMP: Recent Labs 07/12/21 0531 NA 135* K 3.3* CHLOR 103 CO2 24 BUN 11 CREAT 2.67* GLUC 113* CA 8.6 ANION 8* PHYSICAL EXAMINATION: Blood pressure 134/82, pulse 92, temperature 36.5 ?C (97.7 ?F), temperature source Oral, resp. rate 18, height 182.9 cm (6'), weight 123.9 kg (273 lb 2.4 oz), SpO2 97 %. General appearance: Well appearing, alert, in no acute distress, well-hydrated, well nourished. TRISHA Garrido, PA-C July 12, 2021 4:01 PM [facility] CONSULT PROG HNO ID: [id number] Author: Spike Gandara MD Service: Nephrology Author Type: Physician Type: Consult Progress Note Filed: 07/12/2021 12:22 PM Note Text: [facility] NEPHROLOGY CONSULT PROGRESS NOTE SERVICE DATE: July 12, 2021 SERVICE TIME: 12:06 PM SUBJECTIVE Interval History: No events over night. Robust urine output. Renal biomarkers slowly trending down. Tacro drawn appropriately this AM, result pending. Denies new complaints. Still has slightly blurry vision. Wants to leave. Medications: Allergies: Penicillins Unknown Comment:Skin test positive 09/01/18 Seasonal Allergies Unknown Current Facility-Administered Medications Medication Dose Route Frequency - NaCl 0.9% iv flush bag 20 mL INTRAVENOUS PRN - carvedilol 12.5 mg tab(s) (COREG) 12.5 mg ORAL BID - magnesium oxide 400 mg tab(s) (MAG-OX) 400 mg ORAL BID - pantoprazole DR 40 mg tab(s) (PROTONIX) 40 mg ORAL DAILY (6 AM) - sodium chloride 0.9 % (flush) 3-5 mL (BD POSIFLUSH) 3-5 mL INTRAVENOUS q 12 H - ondansetron 4 mg tab(s) (ZOFRAN) 4 mg ORAL q 6 H PRN Or - ondansetron (PF) 4 mg injection (ZOFRAN) 4 mg INTRAVENOUS q 6 H PRN - amLODIPine 5 mg tab(s) (NORVASC) 5 mg ORAL DAILY - acetaminophen 500 mg tab(s) (TYLENOL) 500 mg ORAL q 6 H PRN - senna 8.6 mg tab(s) (SENOKOT) 8.6 mg ORAL BID PRN - oxyCODONE IR 5-10 mg tab(s) (ROXICODONE) 5-10 mg ORAL q 4 H PRN - tacrolimus IR 2 mg cap(s) (PROGRAF) 2 mg ORAL q 12 H 6a/6p - sulfamethoxazole-trimet hoprim 800-160 mg 1 tablet (BACTRIM DS,SEPTRA DS) 1 tablet ORAL -- - ursodiol 300 mg cap(s) (ACTIGALL) 300 mg ORAL TID w MEALS - potassium chloride ER 40 mEq tab(s) (K-DUR, KLOR-CON) 40 mEq ORAL ONCE OBJECTIVE Physical Examination: VS: BP 113/64 Pulse 95 Temp 36.6 ?C (97.9 ?F) (Oral) Resp 14 Ht 182.9 cm (6') Wt 123.9 kg (273 lb 2.4 oz) SpO2 94% BMI 37.05 kg/m? I/O: Intake/Output Summary (Last 24 hours) at 07/12/2021 1205 Last data filed at 07/12/2021 0500 Gross per 24 hour Intake 800 ml Output 2550 ml Net -1750 ml Gen: White man, well developed, well nourished, NAD HENT: NCAT Neck: Supple without JVD Pulm: Clear anteriorly without wheezing CV: RRR Abd; Soft Ext: Warm with trace LE edema R>L Neuro: AAOx3 Data: Labs: Recent Labs 07/12/21 0531 07/11/21 0521 07/10/21 0524 CREAT 2.67* 2.77* 2.80* BUN 11 12 13 NA 135* 135* 137 K 3.3* 3.5* 3.5* CHLOR 103 103 106* CO2 24 22 21* ANION 8* 10 10 GLUC 113* 122* 126* CA 8.6 8.5 8.5 07/08/21 PM Tacrolimus trough 23 ng/ml 07/10/21 AM Tacro trough 9 ng/ml 07/12/21 AM Tacro trough pending 07/08/21 PM Vanc level 18.6 ug/ml ASSESSMENT AND PLAN Pt is a 35 year old man with a medical history significant for 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 Nephrology consulted due to YOAN. ? YOAN - Non-oliguric. Suspect initial insult was pre-renal in nature and secondary to distributive nature of pancreatitis and concurrent CNI use and RAAS inhibition. This improved with time and volume. Second insult likely a sequela of vancomycin induced proximal tubular injury +/- pre-renal disease related to elevated FK level. There is no evidence of obstructive disease and low suspicion for a new glomerular process. His renal biomarkers have plateaued with time and removal of offending agents. ? HTN on home meds of irbesartan 75 mg po daily, amlodipine 10 mg po daily, coreg 12.5 mg po bid. Currently normotensive on amlodipine 5 mg po daily and coreg 12.5 mg po bid. ? Pancreatitis in setting of OLT complicated by biliary stenosis, seem by GI. Symptoms improving. Tolerating advancing diet. ? 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 12/13 PM tacro trough rather elevated. Tacro held after 12/13 AM dose given. Resumed at 2 mg po Q12H 07/11. Anemia likely dilutional Hypokalemia being supplemented ? ? Plan: -Renal function continues to improve with time -Continue tacrolimus at 2 mg po bid for now, trough from this morning pending -OK with DC should his renal function continue to improve and trough return acceptable SIGNATURE: Spike Ramirez MD PATIENT NAME: Chuckie Villalta DATE: July 12, 2021 12:22 PM PHONE: [phone] FOR AFTER HOUR CONCERNS BETWEEN 7PM - 7AM CONTACT ON-CALL NEPHROLOGY STAFF Normal [facility] Hepatic Functn Panelon 07-12 Albumin [Mass/Vol] 3.0 g/dL Low 3.9-4.9 [facility] ALP [Catalytic activity/Vol] 292 U/L High 38-113 [facility] ALT [Catalytic activity/Vol] 44 U/L Normal 10-54 [facility] AST [Catalytic activity/Vol] 129 U/L High 14-40 [facility] Bilirubin [Mass/Vol] 1.6 mg/dL High 0.2-1.3 [facility] Bilirubin,Conjugated 1.0 mg/dL High <0.2 [facility] Protein [Mass/Vol] 5.7 g/dL Low 6.3-8.0 [facility] NURSING PROGon 07-12-2021 NURSING PROG HNO ID: [id number] Author: Marcela Mcdaniel RN Service: Nursing Author Type: Registered Nurse Type: Nursing Progress Note Filed: 07/12/2021 1:03 AM Note Text: Nursing Progress Note Patient Name: Chuckie Villalta [facility] Daily Note: Report received from BATOOL Nolan. Pt resting comfortably in bed. Will continue to monitor. This note was completed by: Marcela Mcdaniel Normal [facility] Tacrolimus / [id number] 021 Tacrolimus / [id number] 7.7 ng/mL Normal 5.0-20.0 [facility] Comment on above: Result Comment: Thes e reference ranges are provided as a general recommendation. Individualized target levels for a given patient will depend on many factors (including the type of organ transplant, time since transplantation, concurrent medications, and other clinical factors), and should be assessed by those health care providers experienced in the management of immunosuppression. Reference ranges and high/low indicator flags are provided as general guidelines only. The treating physician must determine appropriate target levels/dosing based on the specific clinical situation. Test performed by chemiluminescent immunoassay using [employer] Lacquer Sizer. Performed By: #### F [id number] ####[facility], [place] [id number] Amylaseon 07-11-2021 Amylase [Catalytic activity/Vol] 59 U/L Normal 30-104 [facility] Basic Metabolic Panlon 07-11 Anion gap [Moles/Vol] 10 mmol/L Normal 9-18 [facility] Calcium [Mass/Vol] 8.5 mg/dL Normal 8.5-10.2 [facility] Chloride [Moles/Vol] 103 mmol/L Normal 97-105 [facility] CO2 [Moles/Vol] 22 mmol/L Normal 22-30 [facility] Creatinine [Mass/Vol] 2.77 mg/dL High 0.73-1.22 [facility] eGFR- Amer. 32 Normal [facility] eGFR-All Other Races 26 . Normal [facility] Comment on above: Result Comment: eGFR (Estimated GFR) Units of measure: mL/min/1.73 meters squared eGFR is derived from the reexpressed MDRD Study equation using the following parameters: serum creatinine, age, gender and race. The creatinine assay has been calibrated to be traceable to IDMS. An eGFR <60 mL/min/1.73m2 for >3 months is consistent with chronic kidney disease. Refer to KDOQI guidelines for clinical interpretation. In patients with unstable renal function, e.g. those with acute kidney injury, the eGFR may not accurately reflect actual GFR. Note: On 09/21/2021, the eGFR calculation will be updated to the NKF-ASN Task Force recommended 2020 CKD-EPI creatinine equation which does not include a race variable. For more information or to access a 2020 CKD-EPI calculator, visit the National Kidney Foundation website at kidney.org/professionals/kdoqi/gfr_calculator. Glucose [Mass/Vol] 122 mg/dL High 74-99 [facility] Comment on above: Result Comment: The [place] [employer] (ADA) provides guidance for cutoff values for fasting glucose and random glucose. The ADA defines fasting as no caloric intake for at least 8 hours. Fasting plasma glucose results between 100 to 125 mg/dL indicate increased risk for diabetes (prediabetes). Fasting plasma glucose results greater than or equal to 126 mg/dL meet the criteria for diagnosis of diabetes. In the absence of unequivocal hyperglycemia, results should be confirmed by repeat testing. In a patient with classic symptoms of hyperglycemia or hyperglycemic crisis, random plasma glucose results greater than or equal to 200 mg/dL meet the criteria for diagnosis of diabetes. Reference: Standards of Medical Care in Diabetes 2016, [place] [employer]. Diabetes Care. 2016.39(Suppl 1). Potassium [Moles/Vol] 3.5 mmol/L Low 3.7-5.1 [facility] Sodium [Moles/Vol] 135 mmol/L Low 136-144 [facility] Urea nitrogen [Mass/Vol] 12 mg/dL Normal 9-24 [facility] CONSULT PROGon 07-11-2021 CONSULT PROG HNO ID: [id number] Author: Spike Gandara MD Service: Nephrology Author Type: Physician Type: Consult Progress Note Filed: 07/11/2021 1:06 PM Note Text: [facility] NEPHROLOGY CONSULT PROGRESS NOTE SERVICE DATE: July 11, 2021 SERVICE TIME: 12:54 PM SUBJECTIVE Interval History: No events over night. No new complaints this AM. Tacrolimus resumed this AM by primary team. Medications: Allergies: Penicillins Unknown Comment:Skin test positive 09/01/18 Seasonal Allergies Unknown Current Facility-Administered Medications Medication Dose Route Frequency - NaCl 0.9% iv flush bag 20 mL INTRAVENOUS PRN - carvedilol 12.5 mg tab(s) (COREG) 12.5 mg ORAL BID - magnesium oxide 400 mg tab(s) (MAG-OX) 400 mg ORAL BID - pantoprazole DR 40 mg tab(s) (PROTONIX) 40 mg ORAL DAILY (6 AM) - sodium chloride 0.9 % (flush) 3-5 mL (BD POSIFLUSH) 3-5 mL INTRAVENOUS q 12 H - ondansetron 4 mg tab(s) (ZOFRAN) 4 mg ORAL q 6 H PRN Or - ondansetron (PF) 4 mg injection (ZOFRAN) 4 mg INTRAVENOUS q 6 H PRN - amLODIPine 5 mg tab(s) (NORVASC) 5 mg ORAL DAILY - acetaminophen 500 mg tab(s) (TYLENOL) 500 mg ORAL q 6 H PRN - senna 8.6 mg tab(s) (SENOKOT) 8.6 mg ORAL BID PRN - oxyCODONE IR 5-10 mg tab(s) (ROXICODONE) 5-10 mg ORAL q 4 H PRN - tacrolimus IR 2 mg cap(s) (PROGRAF) 2 mg ORAL q 12 H 6a/6p - [START ON 07/12/2021] sulfamethoxazole-trimet hoprim 800-160 mg 1 tablet (BACTRIM DS,SEPTRA DS) 1 tablet ORAL MO-WE-FR - ursodiol 300 mg cap(s) (ACTIGALL) 300 mg ORAL TID w MEALS OBJECTIVE Physical Examination: VS: BP 127/66 Pulse 96 Temp 36.5 ?C (97.7 ?F) (Oral) Resp 18 Ht 182.9 cm (6') Wt 127 kg (279 lb 15.8 oz) SpO2 96% BMI 37.97 kg/m? I/O: Intake/Output Summary (Last 24 hours) at 07/11/2021 1254 Last data filed at 07/10/2021 1707 Gross per 24 hour Intake ? Output 700 ml Net -700 ml Gen: White man, well developed, well nourished, NAD HENT: NCAT Neck: Supple without JVD Pulm: Clear bilaterally CV: RRR Abd: Soft, NT Ext: Warm with trace LE edema R>L Neuro: AAOx3 Data: Labs: Recent Labs 07/11/21 0521 07/10/21 0524 07/09/21 0547 CREAT 2.77* 2.80* 2.83* BUN 12 13 16 NA 135* 137 137 K 3.5* 3.5* 3.8 CHLOR 103 106* 109* CO2 22 21* 20* ANION 10 10 8* GLUC 122* 126* 174* CA 8.5 8.5 8.0* MG -- -- 1.8 ALB -- -- 2.9* WBC -- -- 9.16 HB -- -- 9.1* HCT -- -- 26.3* PLT -- -- 59* 07/08/21 PM Tacrolimus trough 23 ng/ml 07/10/21 AM Tacro trough 9 ng/ml 07/08/21 PM Vanc level 18.6 ug/ml ASSESSMENT AND PLAN Pt is a 35 year old man with a medical history significant for 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 Nephrology consulted due to YOAN. ? YOAN - Non-oliguric. Suspect initial insult was pre-renal in nature and secondary to distributive nature of pancreatitis and concurrent CNI use and RAAS inhibition. This improved with time and volume. Second insult likely a sequela of vancomycin induced proximal tubular injury +/- pre-renal disease related to elevated FK level. There is no evidence of obstructive disease and low suspicion for a new glomerular process. His renal biomarkers have plateaued with time and removal of offending agents. ? HTN on home meds of irbesartan 75 mg po daily, amlodipine 10 mg po daily, coreg 12.5 mg po bid. Currently normotensive on amlodipine 5 mg po daily and coreg 12.5 mg po bid. ? Pancreatitis in setting of OLT complicated by biliary stenosis, seem by GI, pending transfer to [facility] ? 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 12/13 PM tacro trough rather elevated. Tacro held after 1213 AM dose given. Resumed at 2 mg po Q12H today. Anemia likely dilutional KCL s/p supplementation with 40 meq po x 1 ? ? Plan: -Agree with resuming tacrolimus. Trough level for tomorrow AM ordered. -Continue to hold IV fluids -Continue hemodynamic optimization and avoidance of nephrotoxic agents -Strict I/Os. Will follow. Discussed with primary team. SIGNATURE: Spike Ramirez MD PATIENT NAME: Chuckie Villalta DATE: July 11, 2021 1:03 PM PHONE: [phone] FOR AFTER HOUR CONCERNS BETWEEN 7PM - 7AM CONTACT ON-CALL NEPHROLOGY STAFF [facility] CONSULT PROG HNO ID: [id number] Author: Justin Glasgow PA-C Service: Pain Management Author Type: Physician Production Manager Type: Consult Progress Note Filed: 07/11/2021 11:02 AM Note Text: Pain Management - Progress Note Name: Chuckie Villalta Date: July 11, 2021 Time: 10:53 AM ASSESSMENT: Upper abdominal pain PLAN: Continue current inpatient analgesic regimen. SUBJECTIVE: Chuckie Villalta is a 35 year old male with upper abdominal pain. Notes more generalized pain today and complains of feeling bloated. Pain scores overnight between 4-9/10 per [employer]. The patient's current inpatient analgesic regimen includes: Tylenol 500 mg PO q6h PRN mild pain, oxycodone 5-10 mg PO q4h PRN moderate-severe pain. The patient currently rates his pain at 7/10. He states that the pain is unchanged in intensity since the previous evaluation on 07/10/21. The patient denies adverse effects associated with his analgesics. MEDICATIONS: Current Facility-Administered Medications Medication Dose Route Frequency - NaCl 0.9% iv flush bag 20 mL INTRAVENOUS PRN - carvedilol 12.5 mg tab(s) (COREG) 12.5 mg ORAL BID - magnesium oxide 400 mg tab(s) (MAG-OX) 400 mg ORAL BID - pantoprazole DR 40 mg tab(s) (PROTONIX) 40 mg ORAL DAILY (6 AM) - sodium chloride 0.9 % (flush) 3-5 mL (BD POSIFLUSH) 3-5 mL INTRAVENOUS q 12 H - ondansetron 4 mg tab(s) (ZOFRAN) 4 mg ORAL q 6 H PRN Or - ondansetron (PF) 4 mg injection (ZOFRAN) 4 mg INTRAVENOUS q 6 H PRN - amLODIPine 5 mg tab(s) (NORVASC) 5 mg ORAL DAILY - acetaminophen 500 mg tab(s) (TYLENOL) 500 mg ORAL q 6 H PRN - senna 8.6 mg tab(s) (SENOKOT) 8.6 mg ORAL BID PRN - oxyCODONE IR 5-10 mg tab(s) (ROXICODONE) 5-10 mg ORAL q 4 H PRN - tacrolimus IR 2 mg cap(s) (PROGRAF) 2 mg ORAL q 12 H 6a/6p - [START ON 07/12/2021] sulfamethoxazole-trimet hoprim 800-160 mg 1 tablet (BACTRIM DS,SEPTRA DS) 1 tablet ORAL - - ursodiol 300 mg cap(s) (ACTIGALL) 300 mg ORAL TID w MEALS - potassium chloride ER 40 mEq tab(s) (K-DUR, KLOR-CON) 40 mEq ORAL ONCE LABS: CBC: No results for input(s): WBC, RBC, HB, HCT, PLT, MCV, MCH, MPV, RDW in the last 24 hours. CMP: Recent Labs 07/11/21 0521 NA 135* K 3.5* CHLOR 103 CO2 22 BUN 12 CREAT 2.77* GLUC 122* CA 8.5 ANION 10 PHYSICAL EXAMINATION: Blood pressure 124/69, pulse 101, temperature 37.3 ?C (99.1 ?F), temperature source Oral, resp. rate 16, height 182.9 cm (6'), weight 127 kg (279 lb 15.8 oz), SpO2 94 %. General appearance: Well appearing, alert, in no acute distress, well-hydrated, well nourished. Abdomen: Abdomen soft, diffusely tender with greater tenderness in the upper quadrants as opposed to the lower quadrants. Bowel sounds hypoactive x 4 quadrants. No masses, organomegaly TRISHA Garrido, PA-C July 11, 2021 11:02 AM Normal [facility] Amylaseon 07-10-2021 Amylase [Catalytic activity/Vol] 51 U/L Normal 30-104 [facility] Basic Metabolic Panlon 07-10 Anion gap [Moles/Vol] 10 mmol/L Normal 9-18 [facility] Calcium [Mass/Vol] 8.5 mg/dL Normal 8.5-10.2 [facility] Chloride [Moles/Vol] 106 mmol/L High 97-105 [facility] CO2 [Moles/Vol] 21 mmol/L Low 22-30 [facility] Creatinine [Mass/Vol] 2.80 mg/dL High 0.73-1.22 [facility] eGFR- Amer. 31 Normal [facility] eGFR-All Other Races 26 . Normal [facility] Comment on above: Result Comment: eGFR (Estimated GFR) Units of measure: mL/min/1.73 meters squared eGFR is derived from the reexpressed MDRD Study equation using the following parameters: serum creatinine, age, gender and race. The creatinine assay has been calibrated to be traceable to IDMS. An eGFR <60 mL/min/1.73m2 for >3 months is consistent with chronic kidney disease. Refer to KDOQI guidelines for clinical interpretation. In patients with unstable renal function, e.g. those with acute kidney injury, the eGFR may not accurately reflect actual GFR. Note: On 09/21/2021, the eGFR calculation will be updated to the NKF-ASN Task Force recommended 2020 CKD-EPI creatinine equation which does not include a race variable. For more information or to access a 2020 CKD-EPI calculator, visit the National Kidney Foundation website at kidney.org/professionals/kdoqi/gfr_calculator. Glucose [Mass/Vol] 126 mg/dL High 74-99 [facility] Comment on above: Result Comment: The [place] [employer] (ADA) provides guidance for cutoff values for fasting glucose and random glucose. The ADA defines fasting as no caloric intake for at least 8 hours. Fasting plasma glucose results between 100 to 125 mg/dL indicate increased risk for diabetes (prediabetes). Fasting plasma glucose results greater than or equal to 126 mg/dL meet the criteria for diagnosis of diabetes. In the absence of unequivocal hyperglycemia, results should be confirmed by repeat testing. In a patient with classic symptoms of hyperglycemia or hyperglycemic crisis, random plasma glucose results greater than or equal to 200 mg/dL meet the criteria for diagnosis of diabetes. Reference: Standards of Medical Care in Diabetes 2016, [place] [employer]. Diabetes Care. 2016.39(Suppl 1). Potassium [Moles/Vol] 3.5 mmol/L Low 3.7-5.1 [facility] Sodium [Moles/Vol] 137 mmol/L Normal 136-144 [facility] Urea nitrogen [Mass/Vol] 13 mg/dL Normal 9-24 [facility] CONSULT PROGon 07-10-2021 CONSULT PROG HNO ID: [id number] Author: Justin Glasgow PA-C Service: Pain Management Author Type: Physician Production Manager Type: Consult Progress Note Filed: 07/10/2021 12:38 PM Note Text: Pain Management - Progress Note Name: Chuckie Villalta Date: July 10, 2021 Time: 12:27 PM ASSESSMENT: Upper abdominal pain PLAN: Patient appears alert and cognizant at this time. Continue current inpatient analgesic regimen. SUBJECTIVE: Chuckie Villalta is a 35 year old male with upper abdominal pain. Multiple providers express concern RE: patient somnolence. Pain scores overnight between 4-7/10 per [employer]. The patient's current inpatient analgesic regimen includes: oxycodone 5-10 mg PO q4h PRN moderate-severe pain, Tylenol 500 mg PO q6h PRN mild pain. The patient currently rates his pain at 3/10. He states that the pain is better since the previous evaluation on 07/09/21. The patient denies adverse effects associated with his analgesics. MEDICATIONS: Current Facility-Administered Medications Medication Dose Route Frequency - NaCl 0.9% iv flush bag 20 mL INTRAVENOUS PRN - carvedilol 12.5 mg tab(s) (COREG) 12.5 mg ORAL BID - magnesium oxide 400 mg tab(s) (MAG-OX) 400 mg ORAL BID - pantoprazole DR 40 mg tab(s) (PROTONIX) 40 mg ORAL DAILY (6 AM) - sodium chloride 0.9 % (flush) 3-5 mL (BD POSIFLUSH) 3-5 mL INTRAVENOUS q 12 H - ondansetron 4 mg tab(s) (ZOFRAN) 4 mg ORAL q 6 H PRN Or - ondansetron (PF) 4 mg injection (ZOFRAN) 4 mg INTRAVENOUS q 6 H PRN - amLODIPine 5 mg tab(s) (NORVASC) 5 mg ORAL DAILY - acetaminophen 500 mg tab(s) (TYLENOL) 500 mg ORAL q 6 H PRN - senna 8.6 mg tab(s) (SENOKOT) 8.6 mg ORAL BID PRN - oxyCODONE IR 5-10 mg tab(s) (ROXICODONE) 5-10 mg ORAL q 4 H PRN LABS: CBC: No results for input(s): WBC, RBC, HB, HCT, PLT, MCV, MCH, MPV, RDW in the last 24 hours. CMP: Recent Labs 07/10/21 0524 NA 137 K 3.5* CHLOR 106* CO2 21* BUN 13 CREAT 2.80* GLUC 126* CA 8.5 ANION 10 PHYSICAL EXAMINATION: Blood pressure 133/86, pulse 101, temperature 36.6 ?C (97.9 ?F), temperature source Oral, resp. rate 18, height 182.9 cm (6'), weight 127 kg (279 lb 15.8 oz), SpO2 97 %. General appearance: Well appearing, alert, in no acute respiratory distress, well-hydrated, well nourished. Justin Glasgow MPAS, PA-C July 10, 2021 12:38 PM [facility] CONSULT PROG HNO ID: [id number] Author: Spike Gandara MD Service: Nephrology Author Type: Physician Type: Consult Progress Note Filed: 07/10/2021 11:42 AM Note Text: [facility] NEPHROLOGY CONSULT PROGRESS NOTE SERVICE DATE: July 10, 2021 SERVICE TIME: 11:37 AM SUBJECTIVE Interval History: He made a better effort to collect his urine and over 2 L UOP noted yesterday. No events over night. Renal biomarkers starting to plateau this AM. Medications: Allergies: Penicillins Unknown Comment:Skin test positive 09/01/18 Seasonal Allergies Unknown Current Facility-Administered Medications Medication Dose Route Frequency - NaCl 0.9% iv flush bag 20 mL INTRAVENOUS PRN - carvedilol 12.5 mg tab(s) (COREG) 12.5 mg ORAL BID - magnesium oxide 400 mg tab(s) (MAG-OX) 400 mg ORAL BID - pantoprazole DR 40 mg tab(s) (PROTONIX) 40 mg ORAL DAILY (6 AM) - sodium chloride 0.9 % (flush) 3-5 mL (BD POSIFLUSH) 3-5 mL INTRAVENOUS q 12 H - ondansetron 4 mg tab(s) (ZOFRAN) 4 mg ORAL q 6 H PRN Or - ondansetron (PF) 4 mg injection (ZOFRAN) 4 mg INTRAVENOUS q 6 H PRN - amLODIPine 5 mg tab(s) (NORVASC) 5 mg ORAL DAILY - acetaminophen 500 mg tab(s) (TYLENOL) 500 mg ORAL q 6 H PRN - senna 8.6 mg tab(s) (SENOKOT) 8.6 mg ORAL BID PRN - oxyCODONE IR 5-10 mg tab(s) (ROXICODONE) 5-10 mg ORAL q 4 H PRN OBJECTIVE Physical Examination: VS: BP 133/86 Pulse 101 Temp 36.6 ?C (97.9 ?F) (Oral) Resp 18 Ht 182.9 cm (6') Wt 127 kg (279 lb 15.8 oz) SpO2 97% BMI 37.97 kg/m? I/O: Intake/Output Summary (Last 24 hours) at 07/10/2021 1137 Last data filed at 07/10/2021 0900 Gross per 24 hour Intake 567 ml Output 2550 ml Net -1983 ml Gen: White man, well developed, well nourished, NAD HENT: NCAT Neck: Supple without JVD Pulm: Clear without wheezing CV: Tachycardic Abd: Soft Ext; Warm with trace LE edema, right > left (chronic) Neuro: AAOx3 Data: Labs: Recent Labs 07/10/21 0524 07/09/21 0547 07/08/21 0548 CREAT 2.80* 2.83* 2.34* BUN 13 16 17 NA 137 137 132* K 3.5* 3.8 3.9 CHLOR 106* 109* 106* CO2 21* 20* 18* ANION 10 8* 8* GLUC 126* 174* 107* CA 8.5 8.0* 8.0* MG -- 1.8 1.4* ALB -- 2.9* 2.9* WBC -- 9.16 7.82 HB -- 9.1* 9.0* HCT -- 26.3* 26.0* PLT -- 59* 39* 07/08/21 PM Tacrolimus trough 23 ng/ml 07/10/21 AM Tacro trough pending 07/08/21 PM Vanc level 18.6 ug/ml ASSESSMENT AND PLAN Pt is a 35 year old man with a medical history significant for 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 Nephrology consulted due to YOAN. ? YOAN - Non-oliguric. Suspect initial insult was pre-renal in nature and secondary to distributive nature of pancreatitis and concurrent CNI use and RAAS inhibition. This improved with time and volume. Second insult today likely a sequela of vancomycin induced proximal tubular injury +/- pre-renal disease related to elevated FK level. There is no evidence of obstructive disease and low suspicion for a new glomerular process. His renal biomarkers have plateaued with time and removal of offending agents. ? HTN on home meds of irbesartan 75 mg po daily, amlodipine 10 mg po daily, coreg 12.5 mg po bid. Currently normotensive on amlodipine 5 mg po daily and coreg 12.5 mg po bid. ? Pancreatitis in setting of OLT complicated by biliary stenosis, seem by GI, pending transfer to [facility] ? 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 07/08 PM tacro trough rather elevated. Tacro held after 1213 AM dose given. ? Hyponatremia resolved Anemia likely dilutional ? ? Plan: -Continue to hold vancomycin -Continue to hold tacrolimus for now. Discussed levels with GI and aiming for troughs ~10 ng/ml. Will resume at lower dose once levels known. -Continue to hold IV fluids -AM tacrolimus level pending -Continue hemodynamic optimization and avoidance of nephrotoxic agents -Strict I/Os. Will follow SIGNATURE: Spike Ramirez MD PATIENT NAME: Chuckie Villalta DATE: July 10, 2021 11:41 AM PHONE: [phone] FOR AFTER HOUR CONCERNS BETWEEN 7PM - 7AM CONTACT ON-CALL NEPHROLOGY STAFF [facility] Tacrolimus / [id number] Tacrolimus / [id number] 9.3 ng/mL Normal 5.0-20.0 [facility] Comment on above: Result Comment: Thes e reference ranges are provided as a general recommendation. Individualized target levels for a given patient will depend on many factors (including the type of organ transplant, time since transplantation, concurrent medications, and other clinical factors), and should be assessed by those health care providers experienced in the management of immunosuppression. Reference ranges and high/low indicator flags are provided as general guidelines only. The treating physician must determine appropriate target levels/dosing based on the specific clinical situation. Test performed by chemiluminescent immunoassay using [employer]. Performed By: #### F [id number] ####[facility] [place], [place] [id number] [facility] 07-09-2021 [facility] HNO ID: [id number] Author: RT Kristyn(R) Service: ? Author Type: Technologist Type: Allied Health Filed: 07/08/2021 11:17 PM Note Text: Radiology Service Progress Note PATIENT NAME: Chuckie Villalta DATE OF SERVICE: July 08, 2021 TIME: 11:17 PM PATIENT IDENTITY VERIFICATION COMPLETED USING TWO (2) IDENTIFIERS: Name and Date of confirmed by patient verbally and Name and Date of confirmed by identification band. FALL SCREENING: Has the patient had 2 falls in the last year or 1 fall with injury or currently using an Ambulatory Assistive Device (Walker, Cane, Wheelchair, Crutches, etc.)? Inpatient: Screened on floor PATIENT GENDER DATA: Male PATIENT RELEVANT IMPLANT DATA REVIEWED: Yes RADIOLOGY DEPARTMENT: MR; Exam(s) Completed: Head: Routine Brain PERIPHERAL IV DATA: Inpatient: see LDA documentation SIGNED BY: RT Kristyn(R) July 08, 2021 11:17 PM [facility] CASE MANAGEMon 07-09-2021 CASE MANAGEM HNO ID: [id number] Author: Nanette Dangelo RN Service: ? Author Type: Registered Nurse Type: Care Mgt Progress Note Filed: 07/09/2021 6:20 PM Note Text: CARE MANAGEMENT PROGRESS NOTE SERVICE DATE: 07/09/2021 SERVICE TIME: 6:19 PM LOS: 4 days Needs Prior to Discharge: Other: See Comment (medical clearance) Met with patient, discussed discharge plans. Pt. Denies post acute needs, spouse to transport patient home at time of discharge. CM to follow SIGNATURE: Nanette Dangelo RN PATIENT NAME: Chuckie Villalta DATE: July 09, 2021 TIME: 6:19 PM PAGER/CONTACT #: Normal [facility] CBC and Differentialon 07-09 Abs Baso 0.00 k/uL Normal <0.11 [facility] Abs [place] 1.28 k/uL High <0.87 [facility] Abs Neut 7.42 k/uL Normal 1.45-7.50 [facility] ANC(includeSEG+BAND) 7.42 k/uL Normal [facility] Anisocytosis Ql (Bld) Present Normal [facility] Basophils/100 WBC (Bld) 0.0 % Normal [facility] DTYPE Manual Diff Normal [facility] Eosinophils (Bld) [#/Vol] 0.00 10*3/uL Normal <0.46 [facility] Eosinophils/100 WBC (Bld) 0.0 % Normal [facility] Erythrocyte distribution width (RBC) [Ratio] 15.6 % High 11.5-15.0 [facility] Hematocrit (Bld) [Volume fraction] 26.3 % Low 39.0-51.0 [facility] Hemoglobin (Bld) [Mass/Vol] 9.1 g/dL Low 13.0-17.0 [facility] Left Shift Present Normal [facility] Lymphocytes (Bld) [#/Vol] 0.37 10*3/uL Low 1.00-4.00 [facility] Lymphocytes/100 WBC (Bld) 4.0 % Normal [facility] MCH 35.0 pG High 26.0-34.0 [facility] MCHC (RBC) [Mass/Vol] 34.6 g/dL Normal 30.5-36.0 [facility] MCV (RBC) [Entitic vol] 101.2 fL High 80.0-100.0 [facility] Monocytes/100 WBC (Bld) 14.0 % Normal [facility] Myelo% 1.0 % Normal [facility] Neutrophils/100 WBC (Bld) 81.0 % Normal [facility] Platelet Estimate Platelet estimate decreased Normal [facility] Platelet mean volume (Bld) [Entitic vol] 12.3 fL Normal 9.0-12.7 [facility] Platelets (Bld) [#/Vol] 59 10*3/uL Low 150-400 [facility] Polychromasia Slight Normal [facility] RBC (Bld) [#/Vol] 2.60 10*6/uL Low 4.20-6.00 [facility] WBC (Bld) [#/Vol] 9.16 10*3/uL Normal 3.70-11.00 [facility] CONSULT PROGon 07-09-2021 CONSULT PROG HNO ID: [id number] Author: Justin Glasgow PA-C Service: Pain Management Author Type: Physician Production Manager Type: Consult Progress Note Filed: 07/09/2021 3:41 PM Note Text: Pain Management - Progress Note Name: Chuckie Villalta Date: July 09, 2021 Time: 3:30 PM ASSESSMENT: Upper abdominal pain. PLAN: 1. D/C IV Dilaudid. 2. Oxycodone 5-10 mg PO q4h PRN moderate-severe pain. SUBJECTIVE: Chuckie Villalta is a 35 year old male with upper abdominal pain associated with pancreatitis. Still on clears but tolerating other PO medications without difficulty. Pain scores overnight between 4-8/10 per [employer]. The patient's current inpatient analgesic regimen includes: Tylenol 500 mg PO q6h PRN mild pain, Dilaudid 0.5-1 mg IV q4h PRN moderate-severe pain, The patient currently rates his pain at 7/10. He states that the pain is unchanged since the previous evaluation on 07/08/21. The patient denies adverse effects associated with his analgesics. MEDICATIONS: Current Facility-Administered Medications Medication Dose Route Frequency - NaCl 0.9% iv flush bag 20 mL INTRAVENOUS PRN - carvedilol 12.5 mg tab(s) (COREG) 12.5 mg ORAL BID - magnesium oxide 400 mg tab(s) (MAG-OX) 400 mg ORAL BID - pantoprazole DR 40 mg tab(s) (PROTONIX) 40 mg ORAL DAILY (6 AM) - sodium chloride 0.9 % (flush) 3-5 mL (BD POSIFLUSH) 3-5 mL INTRAVENOUS q 12 H - ondansetron 4 mg tab(s) (ZOFRAN) 4 mg ORAL q 6 H PRN Or - ondansetron (PF) 4 mg injection (ZOFRAN) 4 mg INTRAVENOUS q 6 H PRN - HYDROmorphone 1 mg injection (DILAUDID) 1 mg INTRAVENOUS q 4 H PRN - amLODIPine 5 mg tab(s) (NORVASC) 5 mg ORAL DAILY - HYDROmorphone 0.5 mg injection (DILAUDID) 0.5 mg INTRAVENOUS q 4 H PRN - acetaminophen 500 mg tab(s) (TYLENOL) 500 mg ORAL q 6 H PRN - senna 8.6 mg tab(s) (SENOKOT) 8.6 mg ORAL BID PRN LABS: CBC: Recent Labs 07/09/21 0547 WBC 9.16 RBC 2.60* HB 9.1* HCT 26.3* PLT 59* MCV 101.2* MCH 35.0* MPV 12.3 CMP: Recent Labs 07/09/21 0547 NA 137 K 3.8 CHLOR 109* CO2 20* BUN 16 CREAT 2.83* GLUC 174* TPROT 5.1* CA 8.0* MG 1.8 TBILI 1.0 ALKPHOS 63 ALT 16 AST 17 ANION 8* PHYSICAL EXAMINATION: Blood pressure 135/81, pulse 103, temperature 36.6 ?C (97.9 ?F), temperature source Oral, resp. rate 16, height 182.9 cm (6'), weight 124.8 kg (275 lb 2.2 oz), SpO2 97 %. General appearance: Alert, up to recliner, in no acute respiratory distress, well-hydrated, well nourished. TRISHA Garrido, PA-C July 09, 2021 3:41 PM [facility] CONSULT PROG HNO ID: [id number] Author: Ana Cotton APRN.HERNANDEZ Service: Gastroenterology Author Type: Nurse Practitioner Type: Consult Progress Note Filed: 07/09/2021 12:27 PM Note Text: Brief GI progress note LFTs completely normalized today Tolerated clears yesterday can advance diet as tolerated - no fatty/fried food Tacro levels elevated likely contributing to kidney function Nephrology stopped fluids, agree. Only needed for pancreatitis first 24 hours Pt continues to wait for bed at [facility], pt will likely still be inpatient for few days while monitoring kidney function and tacro levels if does not get a bed still at that time and tolerating diet can likely get scheduled for ERCP at [facility] as outpatient Will continue to monitor peripherally Normal [facility] CONSULT PROG HNO ID: [id number] Author: Spike Gandara MD Service: Nephrology Author Type: Physician Type: Consult Progress Note Filed: 07/09/2021 12:32 PM Note Text: [facility] NEPHROLOGY CONSULT PROGRESS NOTE SERVICE DATE: July 09, 2021 SERVICE TIME: 11:39 AM SUBJECTIVE Interval History: No events over night. NS at 150 ml/hr continued. Urine output of 450 ml recorded yesterday but he states that he used the toilet numerous times through the afternoon, evening, and night without collecting it. Standing weight gain of 10+ lbs noted. PM tacro trough noted to be elevated. Medications: Allergies: Penicillins Unknown Comment:Skin test positive 09/01/18 Seasonal Allergies Unknown Current Facility-Administered Medications Medication Dose Route Frequency - NaCl 0.9% iv flush bag 20 mL INTRAVENOUS PRN - carvedilol 12.5 mg tab(s) (COREG) 12.5 mg ORAL BID - magnesium oxide 400 mg tab(s) (MAG-OX) 400 mg ORAL BID - pantoprazole DR 40 mg tab(s) (PROTONIX) 40 mg ORAL DAILY (6 AM) - sodium chloride 0.9 % (flush) 3-5 mL (BD POSIFLUSH) 3-5 mL INTRAVENOUS q 12 H - NaCl 0.9% iv infusion 125 mL/hr INTRAVENOUS CONTINUOUS - ondansetron 4 mg tab(s) (ZOFRAN) 4 mg ORAL q 6 H PRN Or - ondansetron (PF) 4 mg injection (ZOFRAN) 4 mg INTRAVENOUS q 6 H PRN - HYDROmorphone 1 mg injection (DILAUDID) 1 mg INTRAVENOUS q 4 H PRN - amLODIPine 5 mg tab(s) (NORVASC) 5 mg ORAL DAILY - HYDROmorphone 0.5 mg injection (DILAUDID) 0.5 mg INTRAVENOUS q 4 H PRN - acetaminophen 500 mg tab(s) (TYLENOL) 500 mg ORAL q 6 H PRN - senna 8.6 mg tab(s) (SENOKOT) 8.6 mg ORAL BID PRN OBJECTIVE Physical Examination: VS: BP 135/81 Pulse 103 Temp 36.6 ?C (97.9 ?F) (Oral) Resp 16 Ht 182.9 cm (6') Wt 124.8 kg (275 lb 2.2 oz) SpO2 97% BMI 37.31 kg/m? I/O: Intake/Output Summary (Last 24 hours) at 07/09/2021 1139 Last data filed at 07/09/2021 0900 Gross per 24 hour Intake 4371 ml Output 250 ml Net 4121 ml Gen: White man, conversing pleasantly, NAD HENT: NCAT Neck: Supple without JVD Pulm: Clear CV: Tachycardic without murmurs Abd: Soft, NT Ext: Warm with trace LE edema bilaterally Neuro: AAOx3 Data: Labs: Recent Labs 07/09/21 0547 07/08/21 0548 07/07/21 0640 CREAT 2.83* 2.34* 1.63* BUN 16 17 15 NA 137 132* 132* K 3.8 3.9 4.1 CHLOR 109* 106* 105 CO2 20* 18* 18* ANION 8* 8* 9 GLUC 174* 107* 110* CA 8.0* 8.0* 7.9* MG 1.8 1.4* -- ALB 2.9* 2.9* 3.0* WBC 9.16 7.82 9.23 HB 9.1* 9.0* 10.5* HCT 26.3* 26.0* 29.1* PLT 59* 39* 45* 07/08/21 PM Tacrolimus trough 23 ng/ml 07/08/21 PM Vanc level 18.6 ug/ml ASSESSMENT AND PLAN Pt is a 35 year old man with a medical history significant for 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 Nephrology consulted due to YOAN. ? YAON - Non-oliguric. Suspect initial insult was pre-renal in nature and secondary to distributive nature of pancreatitis and concurrent CNI use and RAAS inhibition. This improved with time and volume. Second insult today likely a sequela of vancomycin induced proximal tubular injury +/- pre-renal disease related to elevated FK level. There is no evidence of obstructive disease and low suspicion for a new glomerular process. ? HTN on home meds of irbesartan 75 mg po daily, amlodipine 10 mg po daily, coreg 12.5 mg po bid. Currently normotensive on amlodipine 5 mg po daily and coreg 12.5 mg po bid. ? Pancreatitis in setting of OLT complicated by biliary stenosis, seem by GI, pending transfer to [facility] ? 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 12/13 PM tacro trough rather elevated. Tacro held after 12/13 AM dose given. ? Hyponatremia resolved Anemia likely dilutional ? ? Plan: -Continue to hold vancomycin -Continue to hold tacrolimus -Check FK level tomorrow AM and discuss goal level with GI -He is making more urine than his I/Os disclose, but clearly gaining weight. Will discuss stopping his IV fluids with GI. -Continue hemodynamic optimization and avoidance of nephrotoxic agents -Strict I/Os. Discussed need to record all urine output with patient. Discussed with primary team. Will follow SIGNATURE: Spike Ramirez MD PATIENT NAME: Chuckie Villalta DATE: July 09, 2021 11:39 AM PHONE: [phone] FOR AFTER HOUR CONCERNS BETWEEN 7PM - 7AM CONTACT ON-CALL NEPHROLOGY STAFF [facility] CONSULT PROG HNO ID: [id number] Author: Valencia Noguera [facility] Service: Pharmacy Author Type: Pharmacist Type: Consult Progress Note Filed: 07/09/2021 7:55 AM Note Text: PHARMACY VANCOMYCIN DOSING NOTE Patient Name: Chuckie Villalta Admission Date: 07/05/2021 Date of Consult: 07/09/2021 Time of Consult: 7:52 AM Indication: Intra-abdominal infection Goal Range: 10-20 mcg/mL RECOMMENDATIONS/PLAN: Pharmacy consulted for vancomycin dosing for Chuckie Villalta, a 35 year old, male who is being treated with vancomycin for intra-abdominal infection. 1. Vancomycin therapy has been discontinued. Vancomycin level(s) have been discontinued: Not Applicable. Pharmacy vancomycin dosing service will sign off. Thank you for allowing us to participate in this patient's care. Please contact pharmacy if there are questions. Abraham Meehan Preceptor Addendum: I have reviewed the above information with the clinical pharmacy coordinator/resident or hvac residential service technician and agree with the assessment/plan described. Changes or additions to the note are indicated by italics and . Valencia Noguera, Pharmacist 07/09/2021 7:54 AM Ext: [phone] Normal [facility] CONSULT PROG HNO ID: [id number] Author: Lei Mckoy [facility] Service: Pharmacy Author Type: Pharmacist Type: Consult Progress Note Filed: 07/08/2021 10:04 PM Note Text: PHARMACY VANCOMYCIN DOSING NOTE Patient Name: Chuckie Villalta Admission Date: 07/05/2021 Date of Consult: 07/08/2021 Time of Consult: 10:01 PM Indication: Intra-abdominal infection Goal Range: 10-20 mcg/mL RECOMMENDATIONS/PLAN: Pharmacy consulted for vancomycin dosing for Chuckie Villalta, a 35 year old, male who is being treated with vancomycin for intra-abdominal infection. 1. Patient is currently ordered Vancomycin dosed by level. Today is day 4 of therapy. 2. The most recent vancomycin level was 18.6 mcg/mL drawn at ~2000 on 07/08/21. This is a ~34 hour level on the fourth day of therapy. 3. Will continue to dose vancomycin by level. 4. The next vancomycin level will be ordered for 07/10/21 unless clinically indicated sooner. (Pharmacy will order) We will follow patient renal function, vancomycin levels and doses with you during the course of therapy. Additional recommendations will appear in follow up notes. If you have any questions, please contact pharmacy at [phone]. Age: [age] year old Allergies: ALLERGIES Allergen Reactions - Penicillins Unknown Skin test positive 09/01/18 - Seasonal Allergies Unknown Last 3 Encounter Wt Readings: Date: Wt: 07/05/2021 117.2 kg (258 lb 6.1 oz) 07/16/2020 108.9 kg (240 lb) 05/02/2020 108.9 kg (240 lb) Last 1 Encounter Ht Readings: Date: Ht: 07/05/2021 182.9 cm (6') Estimated Creatinine Clearance: 58.2 mL/min (A) (based on SCr of 2.34 mg/dL (H)). Temp (24hrs), Av.7 ?C (98.1 ?F), Min:36.4 ?C (97.5 ?F), Max:37.1 ?C (98.8 ?F) - Current Temp: 36.7 ?C (98.1 ?F) Labs BUN (mg/dL) Date Value 07/08/2021 17 07/07/2021 15 07/06/2021 17 Creatinine (mg/dL) Date Value 07/08/2021 2.34 (H) 07/07/2021 1.63 (H) 07/06/2021 1.73 (H) WBC (k/uL) Date Value 07/08/2021 7.82 07/07/2021 9.23 07/06/2021 9.13 Vancomycin Levels: Vancomycin, result (ug/mL) Date/Time Value 07/08/20212010 18.6 07/07/2021 2002 37.3 (H) Lei Mckoy, [facility] Normal [facility] Comp Metabolic Panelon 07-09 Albumin [Mass/Vol] 2.9 g/dL Low 3.9-4.9 [facility] ALP [Catalytic activity/Vol] 63 U/L Normal 38-113 [facility] ALT [Catalytic activity/Vol] 16 U/L Normal 10-54 [facility] Anion gap [Moles/Vol] 8 mmol/L Low 9-18 [facility] AST [Catalytic activity/Vol] 17 U/L Normal 14-40 [facility] Bilirubin [Mass/Vol] 1.0 mg/dL Normal 0.2-1.3 [facility] Calcium [Mass/Vol] 8.0 mg/dL Low 8.5-10.2 [facility] Chloride [Moles/Vol] 109 mmol/L High 97-105 [facility] CO2 [Moles/Vol] 20 mmol/L Low 22-30 [facility] Creatinine [Mass/Vol] 2.83 mg/dL High 0.73-1.22 [facility] eGFR- Amer. 31 Normal [facility] eGFR-All Other Races 26 . Normal [facility] Comment on above: Result Comment: eGFR (Estimated GFR) Units of measure: mL/min/1.73 meters squared eGFR is derived from the reexpressed MDRD Study equation using the following parameters: serum creatinine, age, gender and race. The creatinine assay has been calibrated to be traceable to [employer]. An eGFR <60 mL/min/1.73m2 for >3 months is consistent with chronic kidney disease. Refer to KDOQI guidelines for clinical interpretation. In patients with unstable renal function, e.g. those with acute kidney injury, the eGFR may not accurately reflect actual GFR. Note: On 09/21/2021, the eGFR calculation will be updated to the NKF-ASN Task Force recommended 2020 CKD-EPI creatinine equation which does not include a race variable. For more information or to access a 2020 CKD-EPI calculator, visit the National Kidney Foundation website at kidney.org/professionals/kdoqi/gfr_calculator. Glucose [Mass/Vol] 174 mg/dL High 74-99 [facility] Comment on above: Result Comment: The [place] Diabetes Association (ADA) provides guidance for cutoff values for fasting glucose and random glucose. The ADA defines fasting as no caloric intake for at least 8 hours. Fasting plasma glucose results between 100 to 125 mg/dL indicate increased risk for diabetes (prediabetes). Fasting plasma glucose results greater than or equal to 126 mg/dL meet the criteria for diagnosis of diabetes. In the absence of unequivocal hyperglycemia, results should be confirmed by repeat testing. In a patient with classic symptoms of hyperglycemia or hyperglycemic crisis, random plasma glucose results greater than or equal to 200 mg/dL meet the criteria for diagnosis of diabetes. Reference: Standards of Medical Care in Diabetes 2016, [place] [employer]. Diabetes Care. 2016.39(Suppl 1). Potassium [Moles/Vol] 3.8 mmol/L Normal 3.7-5.1 [facility] Protein [Mass/Vol] 5.1 g/dL Low 6.3-8.0 [facility] Sodium [Moles/Vol] 137 mmol/L Normal 136-144 [facility] Urea nitrogen [Mass/Vol] 16 mg/dL Normal 9-24 [facility] MRI BRAIN WO IVCONon 12-14-2 021 MRI BRAIN WO IVCON * * *Final Report* * * DATE OF EXAM: Jul 08 2021 11:28PM [facility] 0294 - MRI BRAIN WO IVCON / PROCEDURE REASON: TIA, initial exam * * * * Physician Interpretation * * * * EXAMINATION: MRI BRAIN WO IVCON CLINICAL HISTORY: TIA, initial exam OtherC/O b/l blurry vision TECHNIQUE: Multiplanar multisequence MRI of the head without intravenous contrast. COMPARISON: None. RESULT: Limitations: Mildly motion degraded exam. Parenchyma: Few scattered foci of nonspecific white matter disease. One lesion is seen in which is adjacent to the left portion of the forceps major on series 7 image 22. No definite infratentorial lesions appear No parenchymal restricted diffusion to suggest acute infarction. No abnormal parenchymal susceptibility artifact to suggest hemorrhage. Extra-axial: The ventricles are within normal limits of size and configuration for age. Anterior parafalcine susceptibility artifact which may represent parafalcine calcifications, though no comparison CT exam is available to confirm. Mass Effect: No significant mass effect. Other: No evidence of a marrow replacing process within the limitations of the acquired pulse sequences. Minimal scattered paranasal sinus mucosal thickening. Mastoid air cells are clear. No acute abnormality of the visualized orbits. Major intracranial flow voids are preserved. No additional findings on the localizer images. IMPRESSION: No evidence of acute infarction. Few scattered foci of white matter disease in a nonspecific pattern. Consider contrast enhanced MRI if there is concern for demyelinating disease. Medical Coding Manager: GUILLE Transcribe Date/Time: Jul 09 2021 2:02A Dictated by : CARLOS ALEJANDRA MD This examination was interpreted and the report reviewed and electronically signed by: CARLOS ALEJANDRA MD on Jul 09 2021 2:09AM EST [id number] Normal [facility] Magnesiumon 07-09-2021 Magnesium [Mass/Vol] 1.8 mg/dL Normal 1.7-2.3 [facility] NURSING PROGon 07-09-2021 NURSING PROG HNO ID: [id number] Author: Demetrice Chacon RN Service: Nursing Author Type: Registered Nurse Type: Nursing Progress Note Filed: 07/09/2021 6:19 AM Note Text: Nursing Progress Note Patient Name: Chuckie Villalta Patient Location: [facility]/ Daily Note:alert and oriented, independent with mobility, informed pt several times throughout the shift that we need to measure his output and the need for a specimen, pt voiced that he has voided and is loraine in color, am wt obtained and a gain is noted, 0430 pt also c/o constipation and feeling bloated, senna ordered and given, medicated x2 with dilaudid as ordered for abdominal pain through the evening hours, reported to Flor MORALES, no new orders at this time This note was completed by: Demetrice Chacon Normal [facility] Protein/Creatinine Ratioon 1 09-09-2020 Creatinine,Urine,Ran 68.3 mg/dL Normal 20-300 [facility] Comment on above: Performed By: #### P RATIO ####[address] [id number] Protein (U) [Mass/Vol] 7 mg/dL Normal 0-20 [facility] Comment on above: Performed By: #### P RATIO ####[address] [phone] Protein/Creatinine Ratio 0.1 Normal <0.2 [facility] Comment on above: Performed By: #### P RATIO ####[address] [phone] Urinalysis with Microscopico n 07-09-2021 Bilirubin, Urine Negative Normal Negative [facility] Cast SEE COMMENT Normal 0 [facility] Comment on above: Result Comment: 0 Clarity (U) Clear Normal Clear [facility] Color (U) Yellow Normal Yellow [facility] Glucose Ql (U) 1+ mg/dL Critically abnormal Negative [facility] Hemoglobin/Blood,Ur Negative Normal Negative [facility] Ketones Ql (U) Negative Normal Negative [facility] Leukest Negative Normal Negative [facility] Nitrite Ql (U) Negative Normal Negative [facility] pH (U) 5.5 [pH] Normal 5.0-8.0 [facility] Protein, Urine Trace Critically abnormal Negative [facility] RBC 0-3 Normal 0-3 [facility] Specific [place], Ur 1.010 Normal 1.005-1.030 [facility] Urobilinogen Qn (U) 0.2 {Andrea'U}/dL Normal 0.2-1.0 [facility] WBC 0-5 Normal 0-5 [facility] ALLIED HEALTHon 07-08-2021 ALLIED HEALTH HNO ID: [id number] Author: Joshua Moran Service: Spiritual Care Author Type: ? Type: Allied Health Filed: 07/08/2021 1:06 PM Note Text: SPIRITUAL CARE PROGRESS NOTE SERVICE DATE: 07/08/2021 SERVICE TIME: 12:45PM Pt listed as [employer] in [facility], and he shared that he and his family attend the [place] in [place], [place]; pt in good spirits but drowsy at the time of visit; shared that he has undergone a liver transplant, and is now dealing with pancreatitis; provided him with a daily devotional for his use, and offered a blessing bedside; no follow-up planned unless requested. To contact the Spiritual Care Department: Please call Ext [phone] SIGNATURE: Joshua Moran PATIENT NAME: Chuckie Villalta DATE: July 08, 2021 TIME: 1:04 PM PAGER/CONTACT #: [phone] Normal [facility] CBC and Differentialon 07-08 Abs Baso 0.00 k/uL Normal <0.11 [facility] Abs [place] 1.25 k/uL High <0.87 [facility] Abs Neut 6.26 k/uL Normal 1.45-7.50 [facility] ANC(includeSEG+BAND) 6.26 k/uL Normal [facility] Anisocytosis Ql (Bld) Present Normal [facility] Basophils/100 WBC (Bld) 0.0 % Normal [facility] DTYPE Manual Diff Normal [facility] Eosinophils (Bld) [#/Vol] 0.00 10*3/uL Normal <0.46 [facility] Eosinophils/100 WBC (Bld) 0.0 % Normal [facility] Erythrocyte distribution width (RBC) [Ratio] 15.7 % High 11.5-15.0 [facility] Hematocrit (Bld) [Volume fraction] 26.0 % Low 39.0-51.0 [facility] Hemoglobin (Bld) [Mass/Vol] 9.0 g/dL Low 13.0-17.0 [facility] Left Shift Present Normal [facility] Lymphocytes (Bld) [#/Vol] 0.23 10*3/uL Low 1.00-4.00 [facility] Lymphocytes/100 WBC (Bld) 3.0 % Normal [facility] MCH 35.4 pG High 26.0-34.0 [facility] MCHC (RBC) [Mass/Vol] 34.6 g/dL Normal 30.5-36.0 [facility] MCV (RBC) [Entitic vol] 102.4 fL High 80.0-100.0 [facility] Monocytes/100 WBC (Bld) 16.0 % Normal [facility] Myelo% 1.0 % Normal [facility] Neutrophils/100 WBC (Bld) 80.0 % Normal [facility] Platelet Estimate Platelet estimate decreased Normal [facility] Platelet mean volume (Bld) [Entitic vol] 12.3 fL Normal 9.0-12.7 [facility] Platelets (Bld) [#/Vol] 39 10*3/uL Low 150-400 [facility] Polychromasia Slight Normal [facility] RBC (Bld) [#/Vol] 2.54 10*6/uL Low 4.20-6.00 [facility] WBC (Bld) [#/Vol] 7.82 10*3/uL Normal 3.70-11.00 [facility] CONSULTon 07-08-2021 CONSULT HNO ID: [id number] Author: Justin Glasgow PA-C Service: Pain Management Author Type: Physician Production Manager Type: Consults Filed: 07/08/2021 2:06 PM Note Text: PAIN MANAGEMENT CONSULT -- [facility] PATIENT NAME: Chuckie Villalta DATE of SERVICE: July 08, 2021 TIME of SERVICE:1:54 PM ATTENDING PROVIDER: Jolynn Jaquez MD PAIN MANAGEMENT SUMMARY: Mr. Villalta is a 35 year old male admitted with acute pancreatitis. He was previously on a fentanyl IVPCA but this has been discontinued. Patient reports adequate analgesia at rest at this time. Plan is to continue current inpatient analgesic regimen and transition to PO medications once patient's diet advances beyond clears. PROBLEM LIST DIAGNOSES ADDED: Upper abdominal pain. Active Hospital Problems Diagnosis Date Noted - Acute pancreatitis 07/05/2021 - YOAN (acute kidney injury) (HCC) 07/05/2021 - Hypomagnesemia 07/05/2021 - Pancreatitis 07/05/2021 - Primary hypertension 07/05/2021 - Liver transplant recipient (HCC) 07/10/2019 - Hemochromatosis 03/18/2018 CHIEF COMPLAINT: Upper abdominal pain. HPI: Chuckie Villalta is a 35 year old year old male admitted on 07/05/2021 with acute pancreatitis. Pain Management is consulted RE: acute pancreatitis, on fentanyl train dispatcher by Dr. Jolynn Jaquez and Lisseth Raymond, HERNANDEZ. Mr. Villalta describes a constant aching in the upper abdomen that becomes stabbing with movement. He currently rates his pain at 3/10 at rest, increasing to 5/10 with movement. Accompanying symptoms include a bloated feeling. Mr. Villalta's IVPCA was discontinued earlier today. He notes that he feels that he could transition to PO medications. He is on clears at this time. Patient's history of OLT is noted. The patient's current inpatient analgesic regimen includes Dilaudid 1 mg IV q4h PRN severe pain. OARRS Report was reviewed. The patient has received 2 controlled substance prescriptions from 2 different providers in the past 2 years. The patient's most recent prescription was dispensed on 02/26/21 (oxycodone 5 mg, 28 tabs/7 days). Overdose Risk Score: 250. Current outpatient MME: 0 mg. PAST MEDICAL HISTORY: PAST MEDICAL HISTORY Diagnosis Date - Cirrhosis (HCC) - Hemochromatosis - Hepatic cirrhosis (HCC) 05/20/2019 - Hypertension - Portal hypertension (HCC) related to cirrhosis - Psoriasis - Varicose vein of leg Right leg PAST SURGICAL HISTORY: PAST SURGICAL HISTORY Procedure Laterality Date - EGD 10/2017 - LIVER TRANSPLANT HX - NECK SURGERY HX - PICC LINE INSERT/CONSULT 07/19/2019 - VENOGRAM BILAT ALLERGIES: ALLERGIES Allergen Reactions - Penicillins Unknown Skin test positive 09/01/18 - Seasonal Allergies Unknown CURRENT MEDICATIONS: Current Facility-Administered Medications: - amLODIPine 5 mg tab(s) (NORVASC) - HYDROmorphone 1 mg injection (DILAUDID) - NaCl 0.9% iv flush bag - ciprofloxacin iv piggyback 400 mg in D5W 200 mL (CIPRO) - metroNIDAZOLE iv piggyback 500 mg in NaCl (iso-osmotic) 100 mL (FLAGYL) - vancomycin dosing and monitoring per pharmacy - carvedilol 12.5 mg tab(s) (COREG) - tacrolimus IR 3 mg cap(s) (PROGRAF) - magnesium oxide 400 mg tab(s) (MAG-OX) - pantoprazole DR 40 mg tab(s) (PROTONIX) - sodium chloride 0.9 % (flush) 3-5 mL (BD POSIFLUSH) - NaCl 0.9% iv infusion - ondansetron 4 mg tab(s) (ZOFRAN) OR ondansetron (PF) 4 mg injection (ZOFRAN) - fentaNYL TONGUE LINING STITCHER 20 mcg/mL in NaCl 0.9% 100 mL FAMILY HISTORY: FAMILY HISTORY Problem Relation Age of Onset - COPD Mother - Hypertension Mother - other (Other) Mother varicose veins with procedure - Colon Cancer Father SOCIAL HISTORY: SOCIAL HISTORY Marital Status: Tobacco Use: Never Alcohol Use: Yes (occasionally) Drug Use: No Sexual Activity: Patient is sexually active, with female partner(s). No reported control method. REVIEW OF SYSTEMS: Please reference the admission history and physical. PHYSICAL EXAMINATION: Vital Signs: BP 114/65 Pulse 101 Temp (Src) 97.9 (Oral) Resp 16 Ht 6' 0 (1.83m) Wt 258 lb 6.1 oz (117.2kg) SpO2 93% BMI 35.03 kg/(m2). O2 Therapy: Room Air, Liters: 0 General appearance: Well appearing, alert, in no acute distress, well-hydrated, well nourished. Head: Normocephalic, atraumatic. Lungs: Lungs clear to auscultation. No wheezing, rhonchi, rales. Heart: RRR without murmur, gallop, or rubs. No ectopy Abdomen: Abdomen soft, tender at the RUQ and epigastrum. Bowel sounds hypoactive x 4 quadrants. No masses, organomegaly LABORATORY STUDIES: Recent Labs 07/08/21 0548 07/07/21 0640 07/06/21 0610 07/05/21 1811 WBC 7.82 9.23 9.13 29.32* HB 9.0* 10.5* 11.4* 16.2 HCT 26.0* 29.1* 30.9* 43.2 PLT 39* 45* 63* 173 NA 132* 132* 132* 130* K 3.9 4.1 4.3 5.5* CHLOR 106* 105 102 92* CO2 18* 18* 15* 15* CREAT 2.34* 1.63* 1.73* 2.53* BUN 17 15 17 20 GLUC 107* 110* 129* 167* TP (more content not included)... Normal [facility] CONSULT HNO ID: [id number] Author: Spike Gandara MD Service: Nephrology Author Type: Physician Type: Consults Filed: 07/08/2021 2:05 PM Note Text: [facility] NEPHROLOGY AND HYPERTENSION [facility] SERVICE DATE: July 08, 2021 SERVICE TIME: 1:31 PM PRIMARY CARE PHYSICIAN: Luis Abdalla DO REASON FOR CONSULT: I am asked to see this patient in consultation for my opinion regarding YOAN. My recommendations will be communicated by way of shared medical record, fax, or mail. HPI: Pt is a 35 year old man with a medical history significant for 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 Nephrology consulted due to YOAN. Patient's post transplant course has been complicated by biliary stenosis s/p stenting in past and stones. He has been maintained on an immunosuppressive regimen of tacrolimus which has been titrated as an outpatient, but at 3 mg po bid for 'a while now' per patient. No history of kidney disease. No history of dialysis needs. Chart reviewed. Patient noted to have baseline serum creatinine of ~1-1.2 mg/dl since transplant. At time of presentation had AI with creatinine to 2.5 mg/dl which slowly improved with hydration to 1.6 mg/dl. Then increaesd again today to 2.3 mg/dl prompting consultation. CT obtained in ER at time of presentation 07/05 done without IV contrast. No urologic obstructive disease at the time. While admitted has been treated with his home antihypertensives, IV fluids, opoid analgesia, and IV abx including cipro, metronidazole, vancomycin. Vanc was started at 1.5 grams q12h on 07/05 and he received 4 doses. Vanc trough prior to dose 5 was noted to be 37 ug/ml last night and no further vancomycin has been administered. States he took two doses of ibuprofen 400 mg each prior to admission due to abdominal pain. Valsartan given on 07/05 and 07/06 now DCed. REVIEW OF SYSTEMS: Constitutional: No fever and No chills Eyes: No complaints Ear, Nose, and Throat: No epistaxis and No nasal congestion Cardiovascular: No chest pain or pressure and No palpitations Respiratory: No cough, No hemoptysis and No wheezing Gastrointestinal: +abddominal pain, improving, now hungry Genitourinary: No pink or red urine, No flank pain, No dysuria and notes dark urine Musculoskeletal: No joint pain and No joint swelling Skin: No pruritis and No rash Neurological: No numbness and No tingling Psychiatric: No depression and No anxiety Endocrine: No heat intolerance and No cold intolerance Hematologic:No issues with bruising easily and No issues with bleeding easily HISTORY: PAST MEDICAL HISTORY Diagnosis Date - Cirrhosis (HCC) - Hemochromatosis - Hepatic cirrhosis (HCC) 05/20/2019 - Hypertension - Portal hypertension (HCC) related to cirrhosis - Psoriasis - Varicose vein of leg Right leg PAST SURGICAL HISTORY Procedure Laterality Date - EGD 10/2017 - LIVER TRANSPLANT HX - NECK SURGERY HX - PICC LINE INSERT/CONSULT 07/19/2019 - VENOGRAM BILAT FAMILY HISTORY Problem Relation Age of Onset - COPD Mother - Hypertension Mother - other (Other) Mother varicose veins with procedure - Colon Cancer Father Social History: reports that he has never smoked. He has quit using smokeless tobacco. He reports current alcohol use. He reports that he does not use drugs. MEDICATIONS: ALLERGIES Allergen Reactions - Penicillins Unknown Skin test positive 09/01/18 - Seasonal Allergies Unknown Outpatient Medications: pantoprazole DR (PROTONIX) 40 mg tablet TAKE 1 TABLET BY MOUTH EVERY DAY ON AN EMPTY STOMACH FOLLOWED IN 30 MINUTES BY BREAKFAST tacrolimus IR (PROGRAF) 1 mg capsule TAKE 3 CAPSULES BY MOUTH TWICE DAILY. irbesartan (AVAPRO) 75 mg tablet Take 75 mg by mouth daily at bedtime. amLODIPine (NORVASC) 10 mg tablet TAKE 1 TABLET BY MOUTH ONCE DAILY. carvedilol (COREG) 6.25 mg tablet Take 2 tablets by mouth twice daily. magnesium oxide (MAG-OX) 400 mg (241.3 mg magnesium) tablet Take 1 tablet by mouth twice daily. ursodiol (ACTIGALL) 300 mg capsule TAKE 1 CAPSULE BY MOUTH THREE TIMES DAILY WITH MEALS sulfamethoxazole-trimet hoprim (BACTRIM DS,SEPTRA DS) 800-160 mg per tablet TAKE 1 TABLET BY MOUTH EVERY THURSDAY,THURSDAY,THURSDAY . Inpatient Medications: Current Facility-Administered Medications Medication Dose Route Frequency - NaCl 0.9% iv flush bag 20 mL INTRAVENOUS PRN - vancomycin dosing and monitoring per pharmacy OTHER As Directed - carvedilol 12.5 mg tab(s) (COREG) 12.5 mg ORAL BID - magnesium oxide 400 mg tab(s) (MAG-OX) 400 mg ORAL BID - pantoprazole DR 40 mg tab(s) (PROTONIX) 40 mg ORAL DAILY (6 AM) - sodium chloride 0.9 % (flush) 3-5 mL (BD POSIFLUSH) 3-5 mL INTRAVENOUS q 12 H - NaCl 0.9% iv infusion 125 mL/hr INTRAVENOUS CONTINUOUS - ondansetron 4 mg tab(s) (ZOFRAN) 4 mg ORAL q 6 H PRN Or - ondansetron (PF) 4 mg injection (ZOF (more content not included)... Normal [facility] CONSULT PROGon 07-08-2021 CONSULT PROG HNO ID: [id number] Author: Ana Cotton APRN.SUPERVISOR [employer] Service: Gastroenterology Author Type: Nurse Practitioner Type: Consult Progress Note Filed: 07/08/2021 1:04 PM Note Text: Brief GI progress note Pt states pain improving dramatically since admission, started clears today denies worsening pain No leukocytosis, afebrile WBC/hgb/plt (39) all with drop today - still receiving NS @ 150 mL/hr No overt signs of bleeding Tbili continues to improve, almost completely normalized 6.6->4.9->1.6 Lipase improving 1496->235 RUQ US today showed mild IH duct dilatation centrally (CBD 0.5 cm). Hepatic steatosis. Splenomegaly. Trace ascites Plan for transfer to [facility] main (extensive medical hx - hemachromatosis, s/p liver transplant with mild rejection soon after transplant +anastomosis stricture s/p multiple ERCPs in the past, last being 06/2020 If pt continues to improve, kidney function and labs improve and able to advance diet could possibly discharge with outpatient follow up. Will discuss with staff and SM Dr. Quezada as well. Normal [facility] Calcium, Ionizedon Calcium, Ionized 1.12 mmol/L Normal 1.08-1.30 [facility] Comp Metabolic Panelon 07-08 Albumin [Mass/Vol] 2.9 g/dL Low 3.9-4.9 [facility] ALP [Catalytic activity/Vol] 60 U/L Normal 38-113 [facility] ALT [Catalytic activity/Vol] 22 U/L Normal 10-54 [facility] Anion gap [Moles/Vol] 8 mmol/L Low 9-18 [facility] AST [Catalytic activity/Vol] 38 U/L Normal 14-40 [facility] Bilirubin [Mass/Vol] 1.6 mg/dL High 0.2-1.3 [facility] Calcium [Mass/Vol] 8.0 mg/dL Low 8.5-10.2 [facility] Chloride [Moles/Vol] 106 mmol/L High 97-105 [facility] CO2 [Moles/Vol] 18 mmol/L Low 22-30 [facility] Creatinine [Mass/Vol] 2.34 mg/dL High 0.73-1.22 [facility] eGFR- Amer. 39 Normal [facility] eGFR-All Other Races 32 . Normal [facility] Comment on above: Result Comment: eGFR (Estimated GFR) Units of measure: mL/min/1.73 meters squared eGFR is derived from the reexpressed MDRD Study equation using the following parameters: serum creatinine, age, gender and race. The creatinine assay has been calibrated to be traceable to IDMS. An eGFR <60 mL/min/1.73m2 for >3 months is consistent with chronic kidney disease. Refer to KDOQI guidelines for clinical interpretation. In patients with unstable renal function, e.g. those with acute kidney injury, the eGFR may not accurately reflect actual GFR. Note: On 09/21/2021, the eGFR calculation will be updated to the NKF-ASN Task Force recommended 2020 CKD-EPI creatinine equation which does not include a race variable. For more information or to access a 2020 CKD-EPI calculator, visit the National Kidney Foundation website at kidney.org/professionals/kdoqi/gfr_calculator. Glucose [Mass/Vol] 107 mg/dL High 74-99 [facility] Comment on above: Result Comment: The [place] Diabetes Association (ADA) provides guidance for cutoff values for fasting glucose and random glucose. The ADA defines fasting as no caloric intake for at least 8 hours. Fasting plasma glucose results between 100 to 125 mg/dL indicate increased risk for diabetes (prediabetes). Fasting plasma glucose results greater than or equal to 126 mg/dL meet the criteria for diagnosis of diabetes. In the absence of unequivocal hyperglycemia, results should be confirmed by repeat testing. In a patient with classic symptoms of hyperglycemia or hyperglycemic crisis, random plasma glucose results greater than or equal to 200 mg/dL meet the criteria for diagnosis of diabetes. Reference: Standards of Medical Care in Diabetes 2016, [place] [employer] Association. Diabetes Care. 2016.39(Suppl 1). Potassium [Moles/Vol] 3.9 mmol/L Normal 3.7-5.1 [facility] Protein [Mass/Vol] 4.9 g/dL Low 6.3-8.0 [facility] Sodium [Moles/Vol] 132 mmol/L Low 136-144 [facility] Urea nitrogen [Mass/Vol] 17 mg/dL Normal 9-24 [facility] Lipaseon 07-08-2021 Lipase [Catalytic activity/Vol] 235 U/L High 16-61 [facility] Magnesiumon 07-08-2021 Magnesium [Mass/Vol] 1.4 mg/dL Low 1.7-2.3 [facility] Tacrolimus / [id number] Tacrolimus / FK506 23.3 ng/mL High 5.0-20.0 [facility] Comment on above: Result Comment: Thes e reference ranges are provided as a general recommendation. Individualized target levels for a given patient will depend on many factors (including the type of organ transplant, time since transplantation, concurrent medications, and other clinical factors), and should be assessed by those health care providers experienced in the management of immunosuppression. Reference ranges and high/low indicator flags are provided as general guidelines only. The treating physician must determine appropriate target levels/dosing based on the specific clinical situation. Test performed by chemiluminescent immunoassay using Schuler Lacquer Sizer. Performed By: #### F K506 ####[facility] [place], [place] [phone] US ABD RIGHT UPPER QUADRANTo n 07-08-2021 US ABD RIGHT UPPER QUADRANT * * *Final Report* * * DATE OF EXAM: Jul 08 2021 12:08PM U 1032 - US ABD RIGHT UPPER QUADRANT / PROCEDURE REASON: Abn liver function tests (LFTs) * * * * Physician Interpretation * * * * EXAMINATION: RIGHT UPPER QUADRANT AND SPLEEN ULTRASOUND CLINICAL HISTORY: Abnormal LFTs TECHNIQUE: Sonography of the right upper quadrant and spleen was performed. Images were obtained and stored in a permanent archive. MQ: URUQ_2 COMPARISON: CT abdomen 07/05/2021, ultrasound 12/07/2019 RESULT: Somewhat limited evaluation due to bowel gas. Pancreas: Not seen Liver: Echotexture: Coarse Echogenicity: Mildly increased Surface contour: Smooth Lesions: None. Biliary: Mild intrahepatic ducts centrally. CBD: 0.5 cm at the hilum. Gallbladder: Prior cholecystectomy Right Kidney: 11.4 cm. No hydronephrosis. Spleen: 16.7 x 5.7 x 10.7 cm. Large but no obvious lesions. Ascites: Trace ascites in the upper abdomen. IMPRESSION: 1. Somewhat limited examination due to overlying bowel gas. 2. Mild intrahepatic ductal dilatation centrally. 3. Hepatic steatosis. 4. Splenomegaly. 5. Trace ascites in the upper abdomen. Medical Coding Manager: GUILLE Transcribe Date/Time: Jul 08 2021 12:28P Dictated by : ROCIO MANZO MD This examination was interpreted and the report reviewed and electronically signed by: ROCIO MANZO MD on Jul 08 2021 12:32PM EST [id number] [facility] US ABD SPLEEN -NBon 07-08-20 US ABD SPLEEN -NB * * *Final Report* * * DATE OF EXAM: Jul 08 2021 12:08PM [facility] 1232 - US ABD SPLEEN -NB / PROCEDURE REASON: Abn liver function tests (LFTs) * * * * Physician Interpretation * * * * EXAMINATION: RIGHT UPPER QUADRANT AND SPLEEN ULTRASOUND CLINICAL HISTORY: Abnormal LFTs TECHNIQUE: Sonography of the right upper quadrant and spleen was performed. Images were obtained and stored in a permanent archive. MQ: URUQ_2 COMPARISON: CT abdomen 07/05/2021, ultrasound 12/07/2019 RESULT: Somewhat limited evaluation due to bowel gas. Pancreas: Not seen Liver: Echotexture: Coarse Echogenicity: Mildly increased Surface contour: Smooth Lesions: None. Biliary: Mild intrahepatic ducts centrally. CBD: 0.5 cm at the hilum. Gallbladder: Prior cholecystectomy Right Kidney: 11.4 cm. No hydronephrosis. Spleen: 16.7 x 5.7 x 10.7 cm. Large but no obvious lesions. Ascites: Trace ascites in the upper abdomen. IMPRESSION: 1. Somewhat limited examination due to overlying bowel gas. 2. Mild intrahepatic ductal dilatation centrally. 3. Hepatic steatosis. 4. Splenomegaly. 5. Trace ascites in the upper abdomen. Medical Coding Manager: PSCB Transcribe Date/Time: Jul 08 2021 12:28P Dictated by : ROCIO MANZO MD This examination was interpreted and the report reviewed and electronically signed by: ROCIO MANZO MD on Jul 08 2021 12:32PM EST [id number] Normal [facility] Vancomycinon 07-08-2021 Vancomycin 18.6 ug/mL Normal 10.0-20.0 [facility] Comment on above: Result Comment: Refe rence ranges and high/low indicator flags are provided as general guidelines only. The treating physician must determine appropriate target levels/dosing based on the specific clinical situation. CBCon 07-07-2021 Absolute nRBC 0.03 k/uL High <0.01 [facility] Erythrocyte distribution width (RBC) [Ratio] 15.7 % High 11.5-15.0 [facility] Hematocrit (Bld) [Volume fraction] 29.1 % Low 39.0-51.0 [facility] Hemoglobin (Bld) [Mass/Vol] 10.5 g/dL Low 13.0-17.0 [facility] MCH 36.2 pG High 26.0-34.0 [facility] MCHC (RBC) [Mass/Vol] 36.1 g/dL High 30.5-36.0 [facility] MCV (RBC) [Entitic vol] 100.3 fL High 80.0-100.0 [facility] Platelet mean volume (Bld) [Entitic vol] 11.8 fL Normal 9.0-12.7 [facility] Platelets (Bld) [#/Vol] 45 10*3/uL Low 150-400 [facility] RBC (Bld) [#/Vol] 2.90 10*6/uL Low 4.20-6.00 [facility] WBC (Bld) [#/Vol] 9.23 10*3/uL Normal 3.70-11.00 [facility] CONSULT PROGon 07-07-2021 CONSULT PROG HNO ID: [id number] Author: Valencia Noguera RPh Service: Pharmacy Author Type: Pharmacist Type: Consult Progress Note Filed: 07/07/2021 8:51 PM Note Text: PHARMACY VANCOMYCIN DOSING NOTE Patient Name: Chuckie Villalta Admission Date: 07/05/2021 Date of Consult: 07/07/2021 Time of Consult: 8:50 PM Indication: Intra-abdominal infection Goal Range: 10-20 mcg/mL RECOMMENDATIONS/PLAN: Pharmacy consulted for vancomycin dosing for Chuckie Villalta, a 35 year old, male who is being treated with vancomycin for intra-abdominal infection. 1. Patient is currently ordered Vancomycin 1.5 g IV q12h. Today is day 3 of therapy. 2. The most recent vancomycin level was 37.3 mcg/mL drawn at 2001 on 07/07/21. This is a ~10 hour level on the 3rd day of therapy. 3. Vancomycin level above therapeutic goal range. Continue to hold further vancomycin IV doses. 4. The next vancomycin level will be ordered for 07/08 unless clinically indicated sooner. (Pharmacy will order) We will follow patient renal function, vancomycin levels and doses with you during the course of therapy. Additional recommendations will appear in follow up notes. If you have any questions, please contact pharmacy at [phone]. Age: [age] year old Allergies: ALLERGIES Allergen Reactions - Penicillins Unknown Skin test positive 09/01/18 - Seasonal Allergies Unknown Last 3 Encounter Wt Readings: Date: Wt: 07/05/2021 117.2 kg (258 lb 6.1 oz) 07/16/2020 108.9 kg (240 lb) 05/02/2020 108.9 kg (240 lb) Last 1 Encounter Ht Readings: Date: Ht: 07/05/2021 182.9 cm (6') CrCl: 83.6 mL/min Temp (24hrs), Av.7 ?C (98.1 ?F), Min:36.6 ?C (97.9 ?F), Max:36.8 ?C (98.2 ?F) - Current Temp: 36.7 ?C (98.1 ?F) Labs BUN (mg/dL) Date Value 07/07/2021 15 07/06/2021 17 07/05/2021 20 Creatinine (mg/dL) Date Value 07/07/2021 1.63 (H) 07/06/2021 1.73 (H) 07/05/2021 2.53 (H) WBC (k/uL) Date Value 07/07/2021 9.23 07/06/2021 9.13 07/05/2021 29.32 (H) Vancomycin Levels: Vancomycin, result (ug/mL) Date/Time Value 07/07/20212001 37.3 (H) [place] Noguera, [facility] Normal [facility] Comp Metabolic Panelon 07-07 Albumin [Mass/Vol] 3.0 g/dL Low 3.9-4.9 [facility] ALP [Catalytic activity/Vol] 70 U/L Normal 38-113 [facility] ALT [Catalytic activity/Vol] 41 U/L Normal 10-54 [facility] Anion gap [Moles/Vol] 9 mmol/L Normal 9-18 [facility] AST [Catalytic activity/Vol] 131 U/L High 14-40 [facility] Bilirubin [Mass/Vol] 4.9 mg/dL High 0.2-1.3 [facility] Calcium [Mass/Vol] 7.9 mg/dL Low 8.5-10.2 [facility] Chloride [Moles/Vol] 105 mmol/L Normal 97-105 [facility] CO2 [Moles/Vol] 18 mmol/L Low 22-30 [facility] Creatinine [Mass/Vol] 1.63 mg/dL High 0.73-1.22 [facility] eGFR- Amer. 59 Normal [facility] eGFR-All Other Races 48 . Normal [facility] Comment on above: Result Comment: eGFR (Estimated GFR) Units of measure: mL/min/1.73 meters squared eGFR is derived from the reexpressed MDRD Study equation using the following parameters: serum creatinine, age, gender and race. The creatinine assay has been calibrated to be traceable to IDMS. An eGFR <60 mL/min/1.73m2 for >3 months is consistent with chronic kidney disease. Refer to KDOQI guidelines for clinical interpretation. In patients with unstable renal function, e.g. those with acute kidney injury, the eGFR may not accurately reflect actual GFR. Note: On 09/21/2021, the eGFR calculation will be updated to the NKF-ASN Task Force recommended 2020 CKD-EPI creatinine equation which does not include a race variable. For more information or to access a 2020 CKD-EPI calculator, visit the National Kidney Foundation website at kidney.org/professionals/kdoqi/gfr_calculator. Glucose [Mass/Vol] 110 mg/dL High 74-99 [facility] Comment on above: Result Comment: The [place] Diabetes Association (ADA) provides guidance for cutoff values for fasting glucose and random glucose. The ADA defines fasting as no caloric intake for at least 8 hours. Fasting plasma glucose results between 100 to 125 mg/dL indicate increased risk for diabetes (prediabetes). Fasting plasma glucose results greater than or equal to 126 mg/dL meet the criteria for diagnosis of diabetes. In the absence of unequivocal hyperglycemia, results should be confirmed by repeat testing. In a patient with classic symptoms of hyperglycemia or hyperglycemic crisis, random plasma glucose results greater than or equal to 200 mg/dL meet the criteria for diagnosis of diabetes. Reference: Standards of Medical Care in Diabetes 2016, [place] [employer]. Diabetes Care. 2016.39(Suppl 1). Potassium [Moles/Vol] 4.1 mmol/L Normal 3.7-5.1 [facility] Protein [Mass/Vol] 5.0 g/dL Low 6.3-8.0 [facility] Sodium [Moles/Vol] 132 mmol/L Low 136-144 [facility] Urea nitrogen [Mass/Vol] 15 mg/dL Normal 9-24 [facility] NURSING PROGon 07-07-2021 NURSING PROG HNO ID: [id number] Author: Preethi Slater, RN Service: Nursing Author Type: Registered Nurse Type: Nursing Progress Note Filed: 07/06/2021 11:25 PM Note Text: Nursing Progress Note Patient Name: Chuckie Villalta Patient Location: / Transfer Note: Patient transferred from [facility] Room 426 to [facility] Room 414 by bed in stable condition with IV fluids, IV antibiotics, and 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 Vital signs obtained, patient oriented to room. Call light within reach. This note was completed by: Preethi Slater RN [facility] NURSING PROG HNO ID: [id number] Author: Delilah Le RN Service: Nursing Author Type: Registered Nurse Type: Nursing Progress Note Filed: 07/06/2021 10:24 PM Note Text: Report called to room 414 Mare RN patient aware of tranfer. Belongings with patient , transferred juanpablo new room with RN in bed, vs stable. Normal [facility] Vancomycinon 07-07-2021 Vancomycin 37.3 ug/mL High 10.0-20.0 [facility] Comment on above: Result Comment: Refe rence ranges and high/low indicator flags are provided as general guidelines only. The treating physician must determine appropriate target levels/dosing based on the specific clinical situation. [facility] HNO ID: [id number] Author: Mariluz Salamanca RN Service: Nursing Author Type: Registered Nurse Type: Care Mgt Initial Assessment Filed: 07/06/2021 2:04 PM Note Text: CARE MANAGEMENT: ASSESSMENT AND DISCHARGE PLAN SERVICE DATE: July 06, 2021 SERVICE TIME: 1:59 PM PRIMARY CARE PHYSICIAN: Lius Abdalla DO ADMISSION STATUS: Inpatient MEDICAL: [facility]LY [facility] MEDICAID Health Insurance: [facility] (Critical access hospital Medicaid) Last Discharge Date: 02/13/20 Is this Within the Past 30 days? Advance Directive: Current Advance Directive: Health Care Power of End Finder Forming Department In Chart: Yes Up To Date and Valid: Yes Baseline Mental Status Prior to this Illness what was the patient's Baseline Mental Status?: Alert AND Oriented Prior to this illness, has anyone described the patient having any of the following behaviors?: Not Applicable Relationship of the informant to the patient:: Self Primary Contact: Extended Emergency Contact Information Primary Emergency Contact: Remedios Villalta Address: [address] [place] [address] Mobile Relation: Spouse Supportive Patient Contact:: Yes Contact Resources: Family;Significant Other FREEDOM OF CHOICE EXPLAINED: [place] of Choice Given: No Reason Not Given: No placements necessary Prior Level of Function: Independent Durable Medical Equipment: BP Cuff Active Services in Community/Home: None Living Situation/Support System: and family Able to Afford Food and Medications: yes Anticipated Medical Plan of Care: Possible need, TBD Anticipated Discharge Plan: TBD Assessment completed with patient at bedside, Remedios also present and is a nurse. Patient is independent at home with ADLs including medication management, bathing, dressing and grooming and ambulates independently. Patient states or family member will transport patient home at discharge, no discharge needs identified at this time. Care management will continue to follow and assist as needed. SIGNATURE: Mariluz Salamanca RN PATIENT NAME: Chuckie Villalta DATE: July 06, 2021 TIME: 1:59 PM PAGER/CONTACT #: [phone] Normal [facility] CBC and Differentialon 07-06 Abs Baso 0.00 k/uL Normal <0.11 [facility] Abs [place] 0.64 k/uL Normal <0.87 [facility] Abs Neut 8.13 k/uL High 1.45-7.50 [facility] ANC(includeSEG+BAND) 8.13 k/uL Normal [facility] Basophils/100 WBC (Bld) 0.0 % Normal [facility] DTYPE Manual Diff Normal [facility] Eosinophils (Bld) [#/Vol] 0.09 10*3/uL Normal <0.46 [facility] Eosinophils/100 WBC (Bld) 1.0 % Normal [facility] Erythrocyte distribution width (RBC) [Ratio] 14.6 % Normal 11.5-15.0 [facility] Hematocrit (Bld) [Volume fraction] 30.9 % Low 39.0-51.0 [facility] Hemoglobin (Bld) [Mass/Vol] 11.4 g/dL Low 13.0-17.0 [facility] Left Shift Present Normal [facility] Lymphocytes (Bld) [#/Vol] 0.27 10*3/uL Low 1.00-4.00 [facility] Lymphocytes/100 WBC (Bld) 3.0 % Normal [facility] MCH 35.0 pG High 26.0-34.0 [facility] MCHC (RBC) [Mass/Vol] 36.9 g/dL High 30.5-36.0 [facility] MCV (RBC) [Entitic vol] 94.8 fL Normal 80.0-100.0 [facility] Monocytes/100 WBC (Bld) 7.0 % Normal [facility] Neutrophils/100 WBC (Bld) 89.0 % Normal [facility] Platelet Estimate Platelet estimate decreased Normal [facility] Platelet mean volume (Bld) [Entitic vol] 11.3 fL Normal 9.0-12.7 [facility] Platelets (Bld) [#/Vol] 63 10*3/uL Low 150-400 [facility] RBC (Bld) [#/Vol] 3.26 10*6/uL Low 4.20-6.00 [facility] Red Cell Morph SEE COMMENT Normal [facility] Comment on above: Result Comment: Unre markable WBC (Bld) [#/Vol] 9.13 10*3/uL Normal 3.70-11.00 [facility] CONSULTon 07-06-2021 CONSULT HNO ID: [id number] Author: Og Gibbs MD Service: Gastroenterology Author Type: Physician Type: Consults Filed: 07/06/2021 5:16 PM Note Text: Brief GI note: Patient with h/o hemochromatosis s/p Liver Transplant on?07/11/19 for . Ex-lap on 07-21-19 for shunt ligation. 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 Most recent one was Jun 2020 for removal of biliary stent. Choledocholithiasis was removed. The biliary anastomotic stricture had resolved. Patient presented with an acute pancreatitis along with abnormal LFTs Rec: IVF Pain control Abx Discussed with the patient and hi s transferring the patient to [facility] giving his complex medica history and the need for repeated ERCP Dr. Wilburn reviewed the case too and agreed to transfer the patient to for further care Normal [facility] CONSULT PROGon 07-06-2021 CONSULT PROG HNO ID: [id number] Author: Pearl Mann [facility] Service: Pharmacy Author Type: Pharmacist Type: Consult Progress Note Filed: 07/06/2021 8:39 AM Note Text: PHARMACY VANCOMYCIN DOSING NOTE Patient Name: Chuckie Villalta Admission Date: 07/05/2021 Date of Consult: 07/06/2021 Time of Consult: 8:36 AM Indication: Intra-abdominal infection Goal Range: 10-20 mcg/mL RECOMMENDATIONS/PLAN: Pharmacy consulted for vancomycin dosing for Chuckie Villalta, a 35 year old, male who is being treated with vancomycin for intra-abdominal infection. 1. Patient is currently ordered Vancomycin dosed by level. Today is day 2 of therapy. 2. No vancomycin level has been drawn for this dosing regimen. 3. Serum creatinine and/or urine output have changed in the previous days, therefore will empirically change dose to 1.5 g every 12 hours. 4. The next vancomycin level will be ordered for 07/07 (prior to 5th dose of therapy) unless clinically indicated sooner. (Pharmacy will order) We will follow patient renal function, vancomycin levels and doses with you during the course of therapy. Additional recommendations will appear in follow up notes. If you have any questions, please contact Pharmacy at ex [phone]. Age: [age] year old Allergies: ALLERGIES Allergen Reactions - Penicillins Unknown Skin test positive 09/01/18 - Seasonal Allergies Unknown Last 3 Encounter Wt Readings: Date: Wt: 07/05/2021 116.6 kg (257 lb 0.9 oz) 07/16/2020 108.9 kg (240 lb) 05/02/2020 108.9 kg (240 lb) Last 1 Encounter Ht Readings: Date: Ht: 07/05/2021 182.9 cm (6') CrCl: 78.6 mL/min Temp (24hrs), Av.4 ?C (97.5 ?F), Min:36.3 ?C (97.3 ?F), Max:36.6 ?C (97.8 ?F) - Current Temp: 36.6 ?C (97.8 ?F) Labs BUN (mg/dL) Date Value 07/06/2021 17 07/05/2021 20 02/13/2021 25 (H) Creatinine (mg/dL) Date Value 07/06/2021 1.73 (H) 07/05/2021 2.53 (H) 02/13/2021 1.22 WBC (k/uL) Date Value 07/06/2021 9.13 07/05/2021 29.32 (H) 02/13/2021 14.35 (H) Vancomycin Levels: No results found for: CHIDI Mann [facility] Normal [facility] Comp Metabolic Panelon 07-06 Albumin [Mass/Vol] 3.5 g/dL Low 3.9-4.9 [facility] ALP [Catalytic activity/Vol] 60 U/L Normal 38-113 [facility] ALT [Catalytic activity/Vol] 60 U/L High 10-54 [facility] Anion gap [Moles/Vol] 15 mmol/L Normal 9-18 [facility] AST [Catalytic activity/Vol] 361 U/L High 14-40 [facility] Bilirubin [Mass/Vol] 6.6 mg/dL High 0.2-1.3 [facility] Calcium [Mass/Vol] 7.8 mg/dL Low 8.5-10.2 [facility] Chloride [Moles/Vol] 102 mmol/L Normal 97-105 [facility] CO2 [Moles/Vol] 15 mmol/L Low 22-30 [facility] Creatinine [Mass/Vol] 1.73 mg/dL High 0.73-1.22 [facility] eGFR- Amer. 55 Normal [facility] eGFR-All Other Races 45 . Normal [facility] Comment on above: Result Comment: eGFR (Estimated GFR) Units of measure: mL/min/1.73 meters squared eGFR is derived from the reexpressed MDRD Study equation using the following parameters: serum creatinine, age, gender and race. The creatinine assay has been calibrated to be traceable to IDMS. An eGFR <60 mL/min/1.73m2 for >3 months is consistent with chronic kidney disease. Refer to KDOQI guidelines for clinical interpretation. In patients with unstable renal function, e.g. those with acute kidney injury, the eGFR may not accurately reflect actual GFR. Note: On 09/21/2021, the eGFR calculation will be updated to the NKF-ASN Task Force recommended 2020 CKD-EPI creatinine equation which does not include a race variable. For more information or to access a 2020 CKD-EPI calculator, visit the National Kidney Foundation website at kidney.org/professionals/kdoqi/gfr_calculator. Glucose [Mass/Vol] 129 mg/dL High 74-99 [facility] Comment on above: Result Comment: The [place] Diabetes Association (ADA) provides guidance for cutoff values for fasting glucose and random glucose. The ADA defines fasting as no caloric intake for at least 8 hours. Fasting plasma glucose results between 100 to 125 mg/dL indicate increased risk for diabetes (prediabetes). Fasting plasma glucose results greater than or equal to 126 mg/dL meet the criteria for diagnosis of diabetes. In the absence of unequivocal hyperglycemia, results should be confirmed by repeat testing. In a patient with classic symptoms of hyperglycemia or hyperglycemic crisis, random plasma glucose results greater than or equal to 200 mg/dL meet the criteria for diagnosis of diabetes. Reference: Standards of Medical Care in Diabetes 2016, [place] [employer]. Diabetes Care. 2016.39(Suppl 1). Potassium [Moles/Vol] 4.3 mmol/L Normal 3.7-5.1 [facility] Protein [Mass/Vol] 5.2 g/dL Low 6.3-8.0 [facility] Sodium [Moles/Vol] 132 mmol/L Low 136-144 [facility] Urea nitrogen [Mass/Vol] 17 mg/dL Normal 9-24 [facility] ED NOTEon 07-06-2021 ED NOTE HNO ID: [id number] Author: Mracela Corley RN Service: Nursing Author Type: Registered Nurse Type: ED Notes Filed: 07/06/2021 4:57 AM Note Text: Report to Loraine RENAE. Normal [facility] ED NOTE HNO ID: [id number] Author: Marcela Corley RN Service: Nursing Author Type: Registered Nurse Type: ED Notes Filed: 07/06/2021 4:51 AM Note Text: Pt resting in bed at this time. Call light within reach, will continue to monitor. Normal [facility] Expedited [id number] 07-06-20 SARS-CoV-2 (COVID-19) RNA NOLBERTO+probe Ql (Unsp spec) UPPER RESPIRATORY TRACT SWAB Normal [facility] SARS-CoV-2 (COVID-19) RNA NOLBERTO+probe Ql (Unsp spec) Negative for COVID19 (SARS CoV2) by RT-PCR or equivalent method. Normal Negative for COVID19 (SARS CoV2) by RT-PCR or equivalent method. [facility] Comment on above: Result Comment: This test has been authorized by FDA under an Emergency Use Authorization (EUA). Lipaseon 07-06-2021 Lipase [Catalytic activity/Vol] 1496 U/L High 16-61 [facility] Magnesiumon 07-06-2021 Magnesium [Mass/Vol] 1.2 mg/dL Low 1.7-2.3 [facility] NURSING PROGon 07-06-2021 NURSING PROG HNO ID: [id number] Author: Loraine Ya RN Service: Nursing Author Type: Registered Nurse Type: Nursing Progress Note Filed: 07/06/2021 6:31 AM Note Text: Nursing Progress Note Patient Name: Chuckie Villalta Patient Location: [facility]/ Transfer Note: Patient transferred into room/unit 426 in stable condition. Actions taken: Report given by Marcela RENAE. No futher actions taken at this time. Will continue to monitor and check with patient. Patient belongings with patient oriented to room, answered questions, denies needs at this time. This note was completed by: Loraine Ya [facility] XR CHEST 1V FRONTAL PORTon 1 09-06-2020 XR CHEST 1V FRONTAL PORT * * *Final Report* * * DATE OF EXAM: Jul 05 2021 11:35PM [id number] - XR CHEST 1V FRONTAL PORT / PROCEDURE REASON: Shortness of breath * * * * Physician Interpretation * * * * EXAMINATION: CHEST RADIOGRAPH (PORTABLE SINGLE VIEW AP) Exam Date/Time: 07/05/2021 11:35 PM CLINICAL HISTORY: Adult inpatient presented with Shortness of breath MQ: XCPR_5 Comparison: 07/22/2019 chest x-ray. RESULT: Lines, tubes, and devices: Lower cervical spine fusion hardware. EKG electrodes. Lungs and pleura: Expiratory view with mild left rotation accentuating the central lung markings and the cardiac pericardial shadow. Subtle hazy atelectasis in left lower lobe. No focal consolidation, pneumothorax, pleural effusion or decompensated CHF. Cardiomediastinal silhouette: Stable cardiomediastinal silhouette. Other: No displaced acute fractures are detected. IMPRESSION: No acute radiographic abnormality. Medical Coding Manager: GUILLE Transcribe Date/Time: Jul 05 2021 11:38P Dictated by : RIK YUN MD This examination was interpreted and the report reviewed and electronically signed by: RIK YUN MD on Jul 05 2021 11:39PM EST [id number] Normal [facility] APTTon 07-05-2021 aPTT Coag (Bld) [Time] 22.6 s Low 23.0-32.4 [facility] Comment on above: Result Comment: Unfr actionated Heparin Therapeutic Ranges: Standard Heparin Nomogram: 53 to 78 seconds (anti-Xa level of 0.3 to 0.7 U/ml) Low Dose/ACS Nomogram: 49 to 67 seconds (anti-Xa level of 0.2 to 0.5 U/ml) Stroke Treatment Nomogram: 49 to 67 seconds (anti-Xa level of 0.2 to 0.5 U/ml) Note: The APTT therapeutic range has been determined for the current lot of laboratory APTT reagent in use throughout the [facility]. Acetaminophenon 07-05-2021 Acetaminophen [Mass/Vol] ug/mL Low 10-30 [facility] Comment on above: Result Comment: Toxi c > 150 ug/mL 4 hours post ingestion The Ginger Akins nomogram can be used to estimate the probability of hepatotoxicity via the relationship of plasma acetaminophen concentration to the post ingestion interval. (Gareth. Pediatrics. 1975. 55:871 to 876 and Ginger et al. [employer] Med. 1981. 141:380 to 385). Reference ranges and high/low indicator flags are provided as general guidelines only. The treating physician must determine appropriate target levels/dosing based on the specific clinical situation. Blood Cultureon 07-05-2021 Bacteria identified Cx Nom (Bld) Culture Result - No growth 5 days Normal [facility] Comment on above: Performed By: #### B LCUL ####[facility] [id number] [place], [place] [phone] CBC and Differentialon 07-05 Abs Baso 0.00 k/uL Normal <0.11 [facility] Comment on above: Performed By: #### C BCDIF ####[facility] [address] [place] [place], [place] [phone] Abs [place] 0.97 k/uL High <0.87 [facility] Comment on above: Performed By: #### C BCDIF ####[place] [address] [place] [phone] Abs Neut 28.35 k/uL High 1.45-7.50 [facility] Comment on above: Performed By: #### C BCDIF ####[place] [address] [place] [phone] Anisocytosis Ql (Bld) Present Normal [facility] Comment on above: Performed By: #### C BCDIF ####[place] [address] [place] [phone] Basophils/100 WBC (Bld) 0.0 % [facility] Comment on above: Performed By: #### C BCDIF ####[place] [phone] DTYPE Manual Diff Normal [facility] Comment on above: Performed By: #### C BCDIF ####[place] [phone] Eosinophils (Bld) [#/Vol] 0.00 10*3/uL Normal <0.46 [facility] Comment on above: Performed By: #### C BCDIF ####[place] [address] [place] [phone] Eosinophils/100 WBC (Bld) 0.0 % [facility] Comment on above: Performed By: #### C BCDIF ####[place] [phone] Erythrocyte distribution width (RBC) [Ratio] 15.1 % High 11.5-15.0 [facility] Comment on above: Performed By: #### C BCDIF ####[place] [address] [place] [phone] Hematocrit (Bld) [Volume fraction] 43.2 % Normal 39.0-51.0 [facility] Comment on above: Performed By: #### C BCDIF ####[address] [phone] Hemoglobin (Bld) [Mass/Vol] 16.2 g/dL Normal 13.0-17.0 [facility] Comment on above: Performed By: #### C BCDIF ####[address] [phone] Lymphocytes (Bld) [#/Vol] 0.00 10*3/uL Low 1.00-4.00 [facility] Comment on above: Performed By: #### C BCDIF ####[address] [phone] Lymphocytes/100 WBC (Bld) 0.0 % Normal [facility] Comment on above: Performed By: #### C BCDIF ####[address] [phone] MCH 35.1 pG High 26.0-34.0 [facility] Comment on above: Performed By: #### C BCDIF ####[address] [phone] MCHC (RBC) [Mass/Vol] 37.5 g/dL High 30.5-36.0 [facility] Comment on above: Performed By: #### C BCDIF ####[address] [phone] MCV (RBC) [Entitic vol] 93.7 fL Normal 80.0-100.0 [facility] Comment on above: Performed By: #### C BCDIF ####[address] [phone] Monocytes/100 WBC (Bld) 3.3 % Normal [facility] Comment on above: Performed By: #### C BCDIF ####[address] [phone] Neutrophils/100 WBC (Bld) 96.7 % Normal [facility] Comment on above: Performed By: #### C BCDIF ####[address] [phone] Platelet Estimate Platelet estimate adequate Normal [facility] Comment on above: Performed By: #### C BCDIF ####[address] [phone] Platelet mean volume (Bld) [Entitic vol] 11.6 fL Normal 9.0-12.7 [facility] Comment on above: Performed By: #### C BCDIF ####[address] [phone] Platelets (Bld) [#/Vol] 173 10*3/uL Normal 150-400 [facility] Comment on above: Performed By: #### C BCDIF ####[address] [phone] Polychromasia Slight Normal [facility] Comment on above: Performed By: #### C BCDIF ####[address] [phone] RBC (Bld) [#/Vol] 4.61 10*6/uL Normal 4.20-6.00 [facility] Comment on above: Performed By: #### C BCDIF ####[address] [phone] WBC (Bld) [#/Vol] 29.32 10*3/uL High 3.70-11.00 [facility] Comment on above: Result Comment: Resu lt checked and verified No clot detected. Performed By: #### C BCDIF ####[address] [phone] CONSULT PROGon 07-05-2021 CONSULT PROG HNO ID: [id number] Author: Pearl Mann RPh Service: Pharmacy Author Type: Pharmacist Type: Consult Progress Note Filed: 07/05/2021 9:09 PM Note Text: PHARMACY VANCOMYCIN DOSING NOTE Patient Name: Chuckie Villalta Admission Date: 07/05/2021 Date of Consult: 07/05/2021 Time of Consult: 9:08 PM Indication: Intra-abdominal infection Goal Range: 10-20 mcg/mL RECOMMENDATIONS/PLAN: Pharmacy consulted for vancomycin dosing for Chuckie Villalta, a 35 year old, male who is being treated with vancomycin for an intra-abdominal infection. 1. Patient is currently ordered Vancomycin 1.5 g IV q12h. Today is day 1 of therapy. 2. No vancomycin level has been drawn for this dosing regimen. 3. Serum creatinine and/or urine output have changed in the previous days, therefore will empirically change dose to Vancomycin 1.5 g x 1 dose. 4. The next vancomycin level will be ordered for 12/11 PM unless clinically indicated sooner. (Pharmacy will order) We will follow patient renal function, vancomycin levels and doses with you during the course of therapy. Additional recommendations will appear in follow up notes. If you have any questions, please contact Pharmacy at ex [phone]. Age: [age] year old Allergies: ALLERGIES Allergen Reactions - Penicillins Unknown Skin test positive 09/01/18 - Seasonal Allergies Unknown Last 3 Encounter Wt Readings: Date: Wt: 07/05/2021 108.9 kg (240 lb) 07/16/2020 108.9 kg (240 lb) 05/02/2020 108.9 kg (240 lb) Last 1 Encounter Ht Readings: Date: Ht: 07/16/2020 185.6 cm (6' 1.07 ) CrCl: 52.8 mL/min Temp (24hrs), Av.3 ?C (97.4 ?F), Min:36.3 ?C (97.4 ?F), Max:36.3 ?C (97.4 ?F) - Current Temp: 36.3 ?C (97.4 ?F) Labs BUN (mg/dL) Date Value 07/05/2021 20 02/13/2021 25 (H) 08/16/2020 24 Creatinine (mg/dL) Date Value 07/05/2021 2.53 (H) 02/13/2021 1.22 08/16/2020 1.28 (H) WBC (k/uL) Date Value 02/13/2021 14.35 (H) 08/16/2020 7.54 07/17/2020 11.81 (H) Vancomycin Levels: No results found for: CHIDI Mann, [facility] Normal [facility] CT ABD/PEL WO IVCONon 2020 CT ABD/PEL WO IVCON * * *Final Report* * * DATE OF EXAM: Jul 05 2021 7:05PM [facility] 0531 - CT ABD/PEL WO IVCON / PROCEDURE REASON: Nausea, vomiting * * * * Physician Interpretation * * * * EXAMINATION: CT ABDOMEN AND PELVIS WITHOUT IV CONTRAST CLINICAL HISTORY: Nausea, vomiting S/p liver transplant, abd pain, hyperbili 1 day history of epigastric abdominal pain, nausea, vomiting x 1 day. History of TECHNIQUE: Non-IV contrast imaging of the abdomen and pelvis was performed using standard technique, scanning from just above the dome of the diaphragm to the symphysis pubis. Unenhanced imaging is limited for the evaluation of some intra-abdominal and pelvic pathology. MQ: CTAPWO_3 Contrast: IV: None CT Radiation dose: Integrated Dose-length product (DLP) for this visit = 1444 mGy*cm. CT Dose Reduction Employed: Automated exposure control (AEC) COMPARISON: 12/07/2019. 07/21/2019. 07/17/2019. RESULT: Abdomen / Pelvis: Liver: Right hepatic lobe transplant with mild steatosis. Biliary: Spleen: No splenomegaly. Pancreas: Extensive peripancreatic fluid which tracks around the transverse colon spleen and retroperitoneum. Additional fluid abuts the stomach and duodenum. Adrenals: No mass. Kidneys: No calculus, hydronephrosis or finding to suggest a cyst or mass in the unenhanced kidney. GI Tract: No bowel dilation. Normal appendix. No diverticulosis. Lymph Nodes: No lymphadenopathy. Mesentery/peritoneum: Small volume ascites. Surgical clips in the midline lower abdomen are similar to prior. Retroperitoneum: No mass. Vasculature: No abdominal aortic or iliac artery aneurysm. Pelvis: No mass or ascites. Bones/Soft Tissues: No acute abnormality. Lumbosacral pars defects. Lower thorax: Unremarkable. Juvenile Officer (topogram) images: No additional findings. IMPRESSION: Extensive pancreatitis with inflammatory changes surrounding the transverse colon, spleen and retroperitoneum. Small volume ascites is present. Extent of pancreatic necrosis cannot be assessed on a noncontrast examination. Medical Coding Manager: PSCZay Transcribe Date/Time: Jul 05 2021 7:12P Dictated by : SPIKE FUNES MD This examination was interpreted and the report reviewed and electronically signed by: SPIKE FUNES MD on Jul 05 2021 7:23PM EST [id number] Normal [facility] Comp Metabolic Panelon 07-05 Albumin [Mass/Vol] 5.0 g/dL High 3.9-4.9 [facility] Comment on above: Performed By: #### C BCDIF ####[address] [phone] ALP [Catalytic activity/Vol] 77 U/L Normal 38-113 [facility] Comment on above: Performed By: #### C BCDIF ####[address] [phone] ALT [Catalytic activity/Vol] 34 U/L Normal 10-54 [facility] Comment on above: Performed By: #### C BCDIF ####[address] [phone] Anion gap [Moles/Vol] 23 mmol/L High 9-18 [facility] Comment on above: Performed By: #### C BCDIF ####[address] [phone] AST [Catalytic activity/Vol] 69 U/L High 14-40 [facility] Comment on above: Performed By: #### C BCDIF ####[address] [phone] Bilirubin [Mass/Vol] 5.3 mg/dL High 0.2-1.3 [facility] Comment on above: Performed By: #### C BCDIF ####[address] [phone] Calcium [Mass/Vol] 9.5 mg/dL Normal 8.5-10.2 [facility] Comment on above: Performed By: #### C BCDIF ####[id number] [place], [place] [phone] Chloride [Moles/Vol] 92 mmol/L Low 97-105 [facility] Comment on above: Performed By: #### C BCDIF ####[address] [phone] CO2 [Moles/Vol] 15 mmol/L Low 22-30 [facility] Comment on above: Performed By: #### C BCDIF ####[id number] [place], [place] [phone] Creatinine [Mass/Vol] 2.53 mg/dL High 0.73-1.22 [facility] Comment on above: Performed By: #### C BCDIF ####[address] [phone] eGFR- Amer. 35 Normal [facility] Comment on above: Performed By: #### C BCDIF ####[address] [phone] eGFR-All Other Races 29 . Normal [facility] Comment on above: Result Comment: eGFR (Estimated GFR) Units of measure: mL/min/1.73 meters squared eGFR is derived from the reexpressed MDRD Study equation using the following parameters: serum creatinine, age, gender and race. The creatinine assay has been calibrated to be traceable to IDMS. An eGFR <60 mL/min/1.73m2 for >3 months is consistent with chronic kidney disease. Refer to KDOQI guidelines for clinical interpretation. In patients with unstable renal function, e.g. those with acute kidney injury, the eGFR may not accurately reflect actual GFR. Note: On 09/21/2021, the eGFR calculation will be updated to the NKF-ASN Task Force recommended 2020 CKD-EPI creatinine equation which does not include a race variable. For more information or to access a 2020 CKD-EPI calculator, visit the National Kidney Foundation website at kidney.org/professionals/kdoqi/gfr_calculator. Performed By: #### C BCDIF ####[address] [phone] Glucose [Mass/Vol] 167 mg/dL High 74-99 [facility] Comment on above: Result Comment: The [place] Diabetes Association (ADA) provides guidance for cutoff values for fasting glucose and random glucose. The ADA defines fasting as no caloric intake for at least 8 hours. Fasting plasma glucose results between 100 to 125 mg/dL indicate increased risk for diabetes (prediabetes). Fasting plasma glucose results greater than or equal to 126 mg/dL meet the criteria for diagnosis of diabetes. In the absence of unequivocal hyperglycemia, results should be confirmed by repeat testing. In a patient with classic symptoms of hyperglycemia or hyperglycemic crisis, random plasma glucose results greater than or equal to 200 mg/dL meet the criteria for diagnosis of diabetes. Reference: Standards of Medical Care in Diabetes 2016, [place] [employer] Association. Diabetes Care. 2016.39(Suppl 1). Performed By: #### C BCDIF ####[address] [phone] Potassium [Moles/Vol] 5.5 mmol/L High 3.7-5.1 [facility] Comment on above: Performed By: #### C BCDIF ####[address] [phone] Protein [Mass/Vol] 7.6 g/dL Normal 6.3-8.0 [facility] Comment on above: Performed By: #### C BCDIF ####[address] [phone] Sodium [Moles/Vol] 130 mmol/L Low 136-144 [facility] Comment on above: Performed By: #### C BCDIF ####[address] [phone] Urea nitrogen [Mass/Vol] 20 mg/dL Normal 9-24 [facility] Comment on above: Performed By: #### C BCDIF ####[facility] [address] [place], [place] [phone] ED NOTEon 07-05-2021 ED NOTE HNO ID: [id number] Author: Max Styles RN Service: ? Author Type: Registered Nurse Type: ED Notes Filed: 07/05/2021 6:05 PM Note Text: Pt comes into ED c/o abd pain x few days without nausea vomiting and diarrhea. 05/05 pain hx of liver transplant in 2019 Plan of care -Monitor Patient's Vital Signs for changes in condition -Monitor patient for changes in pain -Maintain patient safety and privacy -Provide comfort measures -Call light in place Siderails up, bed in locked and low position Normal [facility] ED PROV NOTEon 07-05-2021 ED PROV NOTE HNO ID: [id number] Author: Will Mccormick DO Service: Emergency Medicine Author Type: Physician Type: ED Provider Notes Filed: 07/05/2021 9:31 PM Note Text: ED Provider Note Patient Name: Chuckie Villalta SERVICE DATE: 07/05/21 History Patient presents with: Abdominal Pain Nausea AND Vomiting HPI Patient is a 35-year-old male with history of hemochromatosis, status post liver transplant 2020, prior significant alcohol abuse who presented to the ED with abdominal pain. The patient dates that for the last day he has had worsening upper abdominal pain. Pain is severe, radiating into his back, upper chest. There have been no aggravating or alleviating factors. Associated with multiple episodes of nausea and vomiting. He had some mild diarrhea which is not unusual for him. Denies any blood in stool or vomit. Has not missed any doses of rejection medications, however today did vomit them up. He took no medications for his symptoms. This feels more severe than past episode of post ERCP pancreatitis. Unsure of last alcohol use. States that he is no longer a daily drinker. PAST MEDICAL HISTORY Diagnosis Date - Cirrhosis (HCC) - Hemochromatosis - Hepatic cirrhosis (HCC) 05/20/2019 - Hypertension - Portal hypertension (HCC) related to cirrhosis - Psoriasis - Varicose vein of leg Right leg PAST SURGICAL HISTORY Procedure Laterality Date - EGD 10/2017 - LIVER TRANSPLANT HX - PICC LINE INSERT/CONSULT 07/19/2019 - VENOGRAM BILAT FAMILY HISTORY Problem Relation Age of Onset - Colon Cancer Father - COPD Mother - Hypertension Mother - other (Other) Mother varicose veins with procedure Social History Tobacco Use - Smoking status: Never Smoker - Smokeless tobacco: Former User Substance and Sexual Activity - Alcohol use: No - Drug use: No - Sexual activity: Yes Partners: Female ALLERGIES Allergen Reactions - Penicillins Unknown Skin test positive 09/01/18 - Seasonal Allergies Unknown Review of Systems Constitutional: Negative for chills and fever. HENT: Negative for sore throat. Eyes: Negative for visual disturbance. Respiratory: Negative for cough and shortness of breath. Cardiovascular: Negative for chest pain and palpitations. Gastrointestinal: Positive for abdominal pain, diarrhea, nausea and vomiting. Genitourinary: Negative for dysuria and frequency. Musculoskeletal: Negative for neck pain and neck stiffness. Skin: Negative for rash and wound. Neurological: Negative for weakness, numbness and headaches. Physical Exam Vitals [07/05/21 1802] BP Pulse Temp Temp src Resp SpO2 Weight Height (!) 149/111 (!) 121 36.3 ?C (97.4 ?F) Oral 20 99 % 108.9 kg (240 lb) -- Physical Exam Vitals and nursing note reviewed. Constitutional: General: He is not in acute distress. Appearance: He is not diaphoretic. Comments: Appears very uncomfortable but in no acute distress Cardiovascular: Rate and Rhythm: Regular rhythm. Tachycardia present. Heart sounds: Normal heart sounds. Pulmonary: Effort: Pulmonary effort is normal. No respiratory distress. Breath sounds: Normal breath sounds. No wheezing or rales. Abdominal: General: Bowel sounds are normal. There is no distension. Palpations: Abdomen is soft. Tenderness: There is abdominal tenderness in the right upper quadrant, epigastric area and left upper quadrant. There is guarding. There is no rebound. Musculoskeletal: Cervical back: Neck supple. Skin: General: Skin is warm and dry. Neurological: Mental Status: He is alert and oriented to person, place, and time. Psychiatric: Behavior: Behavior normal. Diagnostic Testing ED Labs Ordered and Reviewed COMP METABOLIC PANEL - Abnormal; Notable for the following components: Result Value Ref Range Albumin 5.0 (*) 3.9 - 4.9 g/dL Bilirubin, Total 5.3 (*) 0.2 - 1.3 mg/dL AST 69 (*) 14 - 40 U/L Glucose 167 (*) 74 - 99 mg/dL Creatinine 2.53 (*) 0.73 - 1.22 mg/dL Sodium 130 (*) 136 - 144 mmol/L Potassium 5.5 (*) 3.7 - 5.1 mmol/L Chloride 92 (*) 97 - 105 mmol/L CO2 15 (*) 22 - 30 mmol/L Anion Gap 23 (*) 9 - 18 mmol/L All other components within normal limits MAGNESIUM BLD - Abnormal; Notable for the following components: Magnesium 0.8 (*) 1.7 - 2.3 mg/dL All other components within normal limits LIPASE BLD - Abnormal; Notable for the following components: Lipase 2,781 (*) 16 - 61 U/L All other components within normal limits TRIGLYCERIDES BLOOD (AK,AV,EU,FV,HL,KEEGAN,MM,S P) - Abnormal; Notable for the following components: Triglyceride 463 (*) <150 mg/dL All other components within normal limits VENOUS BLOOD GAS (POC) - Abnormal; Notable for the following components: pCO2, Venous 32.2 (*) 40.6 - 60.0 mmHg HCO3 (POCT) 18.9 (*) 24.5 - 33.1 mmol/L Base Excess (POCT) -6.3 (*) 0.0 - 8.2 mmol/L Potassium (POCT) 4.9 (*) 3.5 - 4.5 mmol/L Total CO2 (POCT) 19.9 (*) 25.7 - 34.9 mmol/L Lact (more content not included)... Normal [facility] ED Triage Noteon 07-05-2021 ED Triage Note HNO ID: [id number] Author: Brian Ash I, PA-C Service: Emergency Medicine Author Type: Physician Production Manager Type: ED Triage Notes Filed: 07/05/2021 6:11 PM Note Text: ED INTAKE NOTE Patient Name: Chuckie Villalta Service Date: 07/05/21 BRIEF HPI: 35 year-old male presenting with 1 day history of epigastric abdominal pain, nausea, vomiting x 1 day. History of liver transplant 2019 secondary to hemochromatosis. Denies hemoptysis. Endorses diarrhea. No chest pain or shortness of breath. No fevers. BRIEF EXAM: Awake and Alert RRR CTAB +TTP to epigastric and RUQ. No jaundice. INTAKE WORKUP: Bloodwork: CBC CMP Hepatic Panel Cardiac Enzymes Imaging: CT: Abd/pelvis RUQ US SIGNATURE: Anelise Jake Ash PA-C Normal [facility] Ethanolon 07-05-2021 Ethanol [Mass/Vol] mg/dL Normal <11 [facility] Comment on above: Result Comment: Valu es > 80 mg/dL may indicate intoxication HISTORY PHYSICALon HISTORY PHYSICAL HNO ID: [id number] Author: Lisseth Raymond APRN.CNP Service: Hospital Medicine Author Type: Nurse Practitioner Type: HANDP Filed: 07/05/2021 9:37 PM Note Text: DEPARTMENT OF HOSPITAL MEDICINE HISTORY AND PHYSICAL EXAM SERVICE DATE: 07/05/2021 Code Status: Not on file SERVICE TIME: 9:27 PM Primary Care Physician: Luis Abdalla, DO NIGHT AND WEEKEND COVERAGE: [place] COVERAGE: Days: [phone], please contact via [employer] Nights: [phone], please page [facility] Hospitalist Night coverage pager [phone] Subjective CHIEF COMPLAINT: Epigastric pain going through to back, N/V for 2-3 days, worsening HPI: This is a 35 year old male who presents with PMH of liver transplant in 2019 due to hematochromatosis, portal hypertension, HTN, cirrhosis. Presented to Ed with , reports epigastric pain that goes through to back, N/V for the last 2-3 days, getting wore. Was having loose stool Thursday and as well, no BM today. Not eating, difficulty keeping down medications. Admits was not taking all medications as ordered prior to getting sick, had run out of a couple. States Bactrim gives GI upset every time he takes it as well. In ED CT showed significant pancreatitis. states in past patient has needed ercps to open up blocked ducts. States his gallbladder removed at time of transplant, last ercp 07/15 Lactate elevated at 5.5, CBC still pending, difficulty processing to to lipemic blood sample per lab Creat 2.5, K 5.5 and Na 130. Lipase 2781. Mag 0.8 Difficulty managing patient's pain in ED, tried morphine, then fentanyl, then dilaudid, only slight relief with initial dilaudid dose. Patient given IV fluids, mag and started on IV antibiotics PAST MEDICAL HISTORY Diagnosis Date - Cirrhosis (HCC) - Hemochromatosis - Hepatic cirrhosis (HCC) 05/20/2019 - Hypertension - Portal hypertension (HCC) related to cirrhosis - Psoriasis - Varicose vein of leg Right leg PAST SURGICAL HISTORY Procedure Laterality Date - EGD 10/2017 - LIVER TRANSPLANT HX - NECK SURGERY HX - PICC LINE INSERT/CONSULT 07/19/2019 - VENOGRAM BILAT FAMILY HISTORY Problem Relation Age of Onset - COPD Mother - Hypertension Mother - other (Other) Mother varicose veins with procedure - Colon Cancer Father Social History Tobacco Use - Smoking status: Never Smoker - Smokeless tobacco: Former User Substance Use Topics - Alcohol use: Yes Comment: occasionally - Drug use: No PRIOR TO ADMISSION MEDICATIONS: (Not in a hospital admission) ALLERGIES Allergen Reactions - Penicillins Unknown Skin test positive 09/01/18 - Seasonal Allergies Unknown REVIEW OF SYSTEM: PAIN ASSESSMENT: see HPI GENERAL: general malaise, afebrile HEENT: reports blurred vision today, denies uri symptoms NECK: Negative for lumps, goiter, pain and significant neck swelling RESPIRATORY: Negative for cough, hemoptysis, wheezing, COPD, dyspnea or shortness of breath CARDIOVASCULAR: Negative for leg swelling, CHF or palpitations. Chest pain reported with the epigastric pain GI: Positive for diarrhea W, TH, N/V as above. Severe epigastric pain : No difficulty urinating, nocturia > 1 time per night or hematuria MUSCULOSKELETAL: previous neck surgery SKIN: Negative for lesions, rash, and itching PSYCH: Negative for sleep disturbance, mood disorder and recent psychosocial stressors HEMATOLOGY/LYMPHOLOGY: Negative for prolonged bleeding, bruising easily or swollen nodes ENDOCRINE: Negative for cold or heat intolerance, polyuria, polydipsia and goiter NEURO: No history of headaches, syncope, paralysis, seizures or tremors Objective PHYSICAL EXAM: BP 182/130 Pulse 106 Temp (Src) 97.4 (Oral) Resp 18 Wt 240 lb (108.9kg) SpO2 95% O2 Therapy: Room Air Physical Exam Performed: GENERAL: Alert, Moderate Distress, moaning at times SKIN: Skin color, texture, turgor normal. No rashes or lesions. EYES: PERRLA, conjunctiva pink NOSE: no rhinorhea NECK: No jugulovenous distention, No carotid bruits, Carotid pulse normal contour, Supple, No thyromegaly BACK: Back symmetric, Normal curvature, ROM normal LUNGS: Lungs clear to auscultation, Good diaphragmatic excursion CARDIAC: Normal S1 and S2; no rubs, murmurs, or gallops ABDOMEN: tenderness epigastric area and RUQ, Bowel sounds present EXTREMITIES: Extremities normal, no deformities, edema, clubbing or skin discoloration. Good capillary refill. NEURO: Grossly normal cognition, motor function, and cranial nerves III-XII PULSES: 2+ radial, 2+ dorsalis pedis, 2+ carotid The remainder of the physical exam is noncontributory. Lines, Drains, and Airways Line Peripheral 07/05/21 1811 Right Antecubital 20 Gauge <1 day Peripheral 07/05/21 1923 Short Left Antecubital 20 Gauge <1 day Reviewed lines and needs to be continued: REASONS: Intravenous fluids, Intravenous antibiotics and Telemetry DATA: Diagnostic tests revie (more content not included)... Normal [facility] Lipaseon 07-05-2021 Lipase [Catalytic activity/Vol] 2781 U/L High 16-61 [facility] Comment on above: Performed By: #### C BCDIF ####[facility] [id number] [place], [place] [phone] Magnesiumon 07-05-2021 Magnesium [Mass/Vol] 0.8 mg/dL Low 1.7-2.3 [facility] Comment on above: Result Comment: No c all per procedure. 07/05/21 1847 Performed By: #### C BCDIF ####[facility] [place], [place] [phone] Protimeon 07-05-2021 PT INR 1.3 Normal 0.9-1.3 [facility] Comment on above: Result Comment: Aster min K Antagonist (VKA) Therapeutic Range: INR 2 to 3 (Target INR of 2.5) Note: For patients treated with VKA drugs, such as warfarin, the [place] [employer] 2012 Guideline recommends a therapeutic INR range of 2 to 3 (target INR of 2.5). This recommendation includes high-risk patients with antiphospholipid syndrome with previous arterial or venous thromboembolism, current-generation mechanical or bioprosthetic aortic heart valve replacement. Note: Patients with mechanical aortic valve replacement and additional risk factors for thromboembolic events (atrial fibrillation, previous thromboembolism, LV dysfunction, hypercoagulable conditions) or an older generation mechanical AVR (i.e., ball in-Cage) or any mechanical MVR should have a INR therapeutic range of 2.5 to 3.5 (target INR of 3). Scotty ARRIAGA, et al. Chest 2012, 141:7S-47S Goldie RA, et al. JACC 2017, 70: 252-289 PT Sec 14.0 sec High 9.7-13.0 [facility] Triglycerideon 07-05-2021 Fasting Time Unknown Normal [facility] Triglyceride [Mass/Vol] 463 mg/dL High <150 [facility] Troponin Ton 07-05-2021 Troponin T <0.010 Normal 0.000-0.029 [facility] Kaleb 02-25-2021 L --- Specimen: [id number] Received: 02/25/21 Status: [place] Num: [id number] Spec Type: Surgical Subm Dr: Josiah Pompa MD Tissues: A Disc - Intervertebral/Lumbar/C ervical (CERVICAL) Procedures: HE Stain, Gross/Micro L3 Patient Age/Sex Location Account Attending Physician Chuckie Villalta 35/M [place] [id number] Josiah Pompa MD SPEC NUM: [id number] RECD: 02/25/21 STATUS: LU [place] NUM: [id number] VJ: 02/25/[address]: Josiah Pompa MD ENTERED: 02/25/[address] [facility] [address]: LOUIE TYPE: Surgical DEPT: S ORDERED: HE Stain, Gross/Micro L3 ORDERED: HE Stain, Gross/Micro L3 Pathological Diagnosis Cervical disc, C5-C6, C6-C7, discectomy: - Fibrocartilaginous tissue, scant bone and skeletal muscle with no specific pathologic findings. Clinical Information C5-C6 C6-C7 disc herniation Gross Description Received in formalin labeled with the patient's name, number and cervical disc is a 3.5 x 3 x 0.8 cm aggregate of montanez-pink, rubbery and ragged fibrous tissue. Home Appliance Technician sections are submitted in one cassette labeled A1. ([email or web address]) Microscopic Description One glass slide with H E stained material has been examined. The microscopic findings support the above pathologic diagnosis. CPT Codes 94713 Specimen: [id number] Received: 02/25/21 Status: [place] Num: [id number] Spec Type: Surgical Subm Dr: Josiah Pompa MD Tissues: A Disc - Intervertebral/Lumbar/C ervical (CERVICAL) Procedures: HE Stain, Gross/Micro L3 Patient: Chuckie Villalta [id number] (Continued) Signed (signature on file) Lucretia Lund MD 02/26/21 1655 [facility] XR cervical spine 1Von 02-25 XR cervical spine 1V [place] [address] XRay Report Signed Patient: Chuckie Villalta MR#: [id number] 56 : 1985 Acct:[id number] Age/Sex: 35 / M ADM Date: 02/25/21 Loc: 4 Room: [address] [place] [address] Type: REG SDC Attending Dr: Josiah Pompa MD Ordering Provider: Josiah Pompa MD Date of Service: 02/25/21 XR/XR cervical spine 1V: . Copies to: Josiah Pompa MD XR cervical spine 1V 02/25/2021 2:02 PM SIGNS AND SYMPTOMS: Anterior cervical fusion C5-C6 and C6-C7 PROTOCOLS: Intraoperative views of the cervical spine COMPARISON: None FINDINGS: Intraoperative views of the cervical spine demonstrate hardware localization at the C4-C5 intervertebral disc level. Number of images: 1 Fluoroscopic time: 30 seconds. XR/XR cervical spine 1V IMPRESSION: Intraoperative views of the cervical spine demonstrate hardware localization at the C4-C5 intervertebral disc level. Impression dictated by: Carlos Solano M.D.02/25/2021 4:31 PM Dictation Location: [place] [address] Transcribed By: [facility] 02/25/21 1631 Dictated By: Carlos Solano II, MD 02/25/21 1630 Signed By: 02/25/21 1631 Normal [facility] Basic Metabolic Panelon 01-25 Calcium [Mass/Vol] 9.3 mg/dL Normal 8.2-10.2 [facility] Comment on above: Result Comment: PERF ORMED BY: [place] [address] PATHOLOGIST MANAGER STATISTICAL PROGRAMMING ALFRED TRACY M.D. Performed By: #### B MP, CBC #### [facility] [place] [facility] [address] [place] [address] [place] Chloride [Moles/Vol] 99 mmol/L Normal 95-[address] [facility] Comment on above: Performed By: #### B MP, CBC #### [facility] [place] [facility] [address] [place] [address] [place] CO2 [Moles/Vol] 20.5 mmol/L Low 22.0-30.0 [facility] Comment on above: Performed By: #### B MP, CBC #### [facility] [address] [place] [address] [place] Creatinine [Mass/Vol] 1.31 mg/dL High 0.64-1.27 [facility] Comment on above: Performed By: #### B MP, CBC #### [facility] [address] [place] [address] [place] Estimated GFR ( Marissa > 60 [facility] Comment on above: Result Comment: GFR estimated reference range: According to KDOQI guidelines, <60 ml/min/1.73m2 is sufficient to diagnose a patient with chronic kidney disease. Performed By: #### B MP, CBC #### [facility] [address] [place] [address] [place] Estimated GFR (Non- Am > 60 [facility] Comment on above: Performed By: #### B MP, CBC #### [address] Glucose [Mass/Vol] 105 mg/dL High 70-100 [facility] Comment on above: Result Comment: [place] Glucose Reference Range is dependent on time and content of last meal. Glucose of more than 200 mg/dL in a nonstressed, ambulatory subject supports the diagnosis of Diabetes Mellitus. ADA recommended reference range Performed By: #### B MP, CBC #### [address] Potassium [Moles/Vol] 4.4 mmol/L Normal 3.5-5.1 [facility] Comment on above: Performed By: #### B MP, CBC #### [address] Sodium [Moles/Vol] 133 mmol/L Low 136-146 [facility] Comment on above: Performed By: #### B MP, CBC #### [address] Urea nitrogen [Mass/Vol] 11 mg/dL Normal 9-23 [facility] Comment on above: Performed By: #### B MP, CBC #### [address] COVID-19 FRMCon 02-21-2021 SARS-CoV-2 (COVID-19) RNA NOLBERTO+probe Ql (Unsp spec) Negative Normal Negative [facility] Comment on above: Order Comment: Healt hcare Worker?: N Result Comment: Testing for SARS-CoV-2 by RT-PCR This test was developed and its performance characteristics determined by [employer]) and validated at the [facility]. This test has not been FDA cleared or approved. This test has been authorized by FDA under an Emergency Use Authorization (EUA). This test has been validated in accordance with the FDA's Guidance Document (Policy for Diagnostics Testing in Laboratories Certified to Perform High Complexity Testing under CLIA prior to Emergency Use Authorization for Coronavirus Disease-2019 during the Public Health Emergency) issued on October 27, 2019. This test is only authorized for the duration of time the declaration that circumstances exist justifying the authorization of the emergency use of in vitro diagnostic tests for detection of SARS-CoV-2 virus and/or diagnosis of COVID-19 infection under section 564(b)(1) of the Act, 21 U.S.C. 360bbb-3(b)(1), unless the authorization is terminated or revoked sooner. PERFORMED BY: [place] [address] PATHOLOGIST MANAGER STATISTICAL PROGRAMMING ALFRED TRACY M.D. Performed By: #### C OVID 19 [facility] #### [address] Complete Blood Count Auto Di ffon 02-21-2021 Basophils (Bld) [#/Vol] 0.0 10*3/uL Normal 0.0-0.2 [facility] Comment on above: Result Comment: PERF ORMED BY: [place] [address] PATHOLOGIST MANAGER STATISTICAL PROGRAMMING ALFRED TRACY M.D. Performed By: #### B MP, CBC #### [address] Basophils/100 WBC (Bld) 0.5 % Normal . [facility] Comment on above: Performed By: #### B MP, CBC #### [address] Eosinophils (Bld) [#/Vol] 0.1 10*3/uL Normal 0.0-0.45 [facility] Comment on above: Performed By: #### B MP, CBC #### [facility] [address] [place] [address] [place] Eosinophils/100 WBC (Bld) 1.2 % Normal . [facility] Comment on above: Performed By: #### B MP, CBC #### [facility] [address] Erythrocyte distribution width (RBC) [Ratio] 14.0 % Normal 12.0-14.8 [facility] Comment on above: Performed By: #### B MP, CBC #### [facility] [address] Hematocrit (Bld) [Volume fraction] 39.2 % Normal 38.8-50.0 [facility] Comment on above: Performed By: #### B MP, CBC #### [facility] [address] Hemoglobin (Bld) [Mass/Vol] 13.9 g/dL Normal 13.0-17.0 [facility] Comment on above: Performed By: #### B MP, CBC #### [facility] [address] Lymphocytes (Bld) [#/Vol] 1.0 10*3/uL Normal 1.00-4.8 [facility] Comment on above: Performed By: #### B MP, CBC #### [facility] [address] [place] [address] [place] Lymphocytes/100 WBC (Bld) 9.5 % Normal . [facility] Comment on above: Performed By: #### B MP, CBC #### [facility] [address] [place] [address] [place] MCH (RBC) [Entitic mass] 32.1 pg Normal 27.5-35.2 [facility] Comment on above: Performed By: #### B MP, CBC #### [facility] [address] MCV (RBC) [Entitic vol] 90.4 fL Normal 83.5-101 [facility] Comment on above: Performed By: #### B MP, CBC #### [facility] [address] Mean Corpuscular HGB Conc 35.5 g/dL Normal 32.5-35.6 [facility] Comment on above: Performed By: #### B MP, CBC #### [facility] [address] [place] [address] [place] Monocytes (Bld) [#/Vol] 0.6 10*3/uL Normal 0.0-0.8 [facility] Comment on above: Performed By: #### B MP, CBC #### [facility] [address] [place] [address] [place] Monocytes/100 WBC (Bld) 6.0 % Normal . [facility] Comment on above: Performed By: #### B MP, CBC #### [facility] [address] [place] [address] [place] Neutrophils (Bld) [#/Vol] 8.8 10*3/uL High 1.8-7.7 [facility] Comment on above: Performed By: #### B MP, CBC #### [facility] [address] [place] [id number] [place] Neutrophils/100 WBC (Bld) 82.8 % Normal . [facility] Comment on above: Performed By: #### B MP, CBC #### [facility] [address] [place] [id number] [place] Nucleated RBC/100 WBC (Bld) [Ratio] 0.0 % Normal 0-0.5 [facility] Comment on above: Performed By: #### B MP, CBC #### [facility] [address] [place] [address] [place] Platelet mean volume (Bld) [Entitic vol] 8.4 fL Normal 6.6-10.1 [facility] Comment on above: Performed By: #### B MP, CBC #### [facility] [address] [place] [id number] [place] Platelets (Bld) [#/Vol] 205 10*3/uL Normal 150-450 [facility] Comment on above: Performed By: #### B MP, CBC #### [facility] [address] RBC (Bld) [#/Vol] 4.34 10*6/uL Normal 3.90-5.60 [facility] Comment on above: Performed By: #### B MP, CBC #### [facility] [address] WBC (Bld) [#/Vol] 10.6 10*3/uL Normal 4.5-11.0 [facility] Comment on above: Performed By: #### B MP, CBC #### [facility] [address] ECG 12 lead ECGon 02-18-2021 ECG 12 lead ECG [facility] [place] [address] [place] [address] Electrocardiograph Report Signed Patient: Chuckie Villalta MR#: [id number] 56 : 1985 Acct:[id number] Age/Sex: 35 / M ADM Date: 02/18/21 Loc: Room: Type: [facility] Attending Dr: Josiah Pompa MD Ordering Provider: Josiah Pompa MD Date of Service: 02/18/21 ECG/ECG 12 lead ECG: surgery 02-25-2021 Copies to: Test Reason : Blood Pressure : / mmHG Vent. Rate : 079 BPM Atrial Rate : 079 BPM P-R Int : 156 ms QRS Dur : 090 ms QT Int : 384 ms P-R-T Axes : 058 028 040 degrees QTc Int : 440 ms Normal sinus rhythm with sinus arrhythmia Normal ECG No previous ECGs available Confirmed by SHAWN RICCI DO ([id number]) on 02/18/2021 4:10:54 PM Referred By: RM POMPA Electronically Signed By:SHAWN RICCI DO Transcribed By: MUS Dictated By: Shawn Ricci DO 02/18/21 1413 Signed By: 02/18/21 1610 Normal [facility] MRI CSPINE WO CONon 12-07-19 MRI CSPINE WO CON EXAMINATION: MRI CSP INE WO CON HISTORY: Cervical spondylosis with myelopathy COMPARISON: No relevant comparison available. TECHNIQUE: A variety of imaging planes and parameters were utilized for visualization of suspected pathology. FINDINGS: CRANIOCERVICAL AREA: Normal foramen magnum with no Chiari malformation. PARASPINAL AREA: Normal with no visible mass. BONES: Reversal of normal cervical lordosis with no acute fracture or spondylolisthesis. Moderate diffuse degenerative spondylosis. CORD: Normal caliber, contour, and signal intensity. CERVICAL DISC LEVELS: C2-C3: No significant disc/facet abnormality, spinal stenosis, or foraminal stenosis. C3-C4: Mild disc space narrowing and disc desiccation. Mild diffuse disc/osteophyte complex. Mild narrowing of the central canal to 8.7 mm. No foraminal stenosis C4-C5: Disc desiccation. Moderate diffuse disc/osteophyte complex narrowing the central canal to 8.3 mm. No right foraminal stenosis. Mild narrowing of the left neural foramen C5-C6: Moderate to severe disc space narrowing. Moderate to severe disc/osteophyte complex and facet osteoarthropathy. Narrowing of the central canal to 6.9 mm in AP dimension with deformity of the anterior spinal cord. Moderate right and severe left foraminal stenosis C6-C7: Moderate disc space narrowing and disc desiccation. Moderate to severe disc/osteophyte complex. Narrowing of the central canal to 6.9 mm in AP dimension with deformity of the ventral spinal cord. Moderate to severe right and severe left foraminal stenosis C7-T1:. Mild disc space narrowing and disc desiccation. Mild disc/osteophyte complex no central or foraminal stenosis IMPRESSION: Moderate to severe diffuse degenerative changes with reversal of cervical lordosis. This results in significant central and foraminal stenosis at multiple levels as detailed above Electronically authenticated by: ANGIE MCDANIEL Date: 2020-12-06 12:00 Normal [facility] Vital Signs Date Time Vital Sign Value Performing Clinician Facility 06-20-2023 16:12-0500 Body temperature 96.98 [degF] [facility] 06-20-2023 16:12-0500 Diastolic blood pressure 85 mm[Hg] [facility] 06-20-2023 16:12-0500 Heart rate 114 /min [facility] 06-20-2023 16:12-0500 Respiratory rate 18 /min [facility] 06-20-2023 16:12-0500 SaO2% (BldA) [Mass fraction] 100 % [facility] 06-20-2023 16:12-0500 Systolic blood pressure 160 mm[Hg] [facility] 06-11-2023 10:00-0500 Body height 185.42 cm Luis Ball Other [facility] [employer] Other 06-11-2023 10:00-0500 Body mass index (BMI) [Ratio] 29.66 kg/m2 Luis Ball Other [facility] Other 06-11-2023 10:00-0500 Body weight 101.97 kg Luis Ball Other [facility] Other 06-11-2023 10:00-0500 Diastolic blood pressure 97 mm[Hg] Luis Ball Other [facility] Other 06-11-2023 10:00-0500 Respiratory rate 12 /min Luis Ball Other [facility] Other 06-11-2023 10:00-0500 Systolic blood pressure 141 mm[Hg] Luis Ball Other [facility] Other 03-05-2023 09:45-0400 Body height 185.42 cm Luis Ball Other [facility] Other 03-05-2023 09:45-0400 Body mass index (BMI) [Ratio] 29.6 kg/m2 Luis Ball Other [facility] Other 03-05-2023 09:45-0400 Body weight 101.79 kg Luis Ball Other [facility] Other 03-05-2023 09:45-0400 Diastolic blood pressure 109 mm[Hg] Luis Ball Other [facility] Other 03-05-2023 09:45-0400 Systolic blood pressure 153 mm[Hg] Luis Ball Other [facility] Other 09-12-2022 10:30-0500 Body height 185.42 cm Luis Ball Other [facility] Other 09-12-2022 10:30-0500 Body mass index (BMI) [Ratio] 29.95 kg/m2 Luis Ball Other [facility] Other 09-12-2022 10:30-0500 Body weight 102.97 kg Luis Ball Other [facility] Other 09-12-2022 10:30-0500 Diastolic blood pressure 86 mm[Hg] Luis Ball Other [facility] Other 09-12-2022 10:30-0500 Respiratory rate 12 /min Luis Ball Other [facility] Other 09-12-2022 10:30-0500 Systolic blood pressure 132 mm[Hg] Luis Ball Other [facility] Other Encounters Encounter Date Encounter Type Care Provider Facility Start: 06-20-2023 End: 06-20-2023 Emergency department patient visit Wilmer Rosenberg Facility:[facility] Start: 06-20-2023 End: 06-20-2023 Emergency department patient visit Wilmer Rosenberg [facility] Start: 06-11-2023 End: 06-11-2023 ambulatory Luis Ball Other [facility] Other Start: 06-11-2023 Encounter for genera l adult medical examination without abnormal findings Luis Ball [facility] Start: 06-11-2023 Periodic preventive med est patient 18-39 yrs Luis [facility] Start: 03-19-2023 End: 03-19-2023 ambulatory BETINA QUEZADA Facility:[facility] Start: 03-05-2023 End: 03-05-2023 ambulatory Luis Skowhegan Other [facility] Other Start: 03-05-2023 Office outpatient vi sit 15 minutes Luis [facility] Start: 12-11-2022 End: 12-11-2022 ambulatory BETINA QUEZADA Facility:[facility] Start: 09-22-2022 Telephone encounter 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 Start: 08-31-2022 End: 09-05-2022 Evaluation and management of inpatient LUIS ABDALLA Facility:[facility] Start: 07-22-2022 ambulatory Nadja Spencer RN [facility] Comment on above: holiday obs erved July 28 Start: 07-22-2022 E-mail encounter fro m caregiver Nadja Spencer RN [facility] Start: 07-07-2022 End: 07-08-2022 ambulatory LUIS ABDALLA Facility:[facility] Start: 05-01-2022 Refill Tuyet Rivera PA-C Work Phone: [phone] Comment on above: Refill Request Start: 03-24-2022 Telephone encounter Nadja [facility] Comment on above: Reminder To Have Lab s Drawn Start: 03-11-2022 Telephone encounter Nadja [facility] Comment on above: Covid19 Concern Start: 02-25-2022 End: 02-25-2022 ambulatory LUIS ABDALLA Facility:[facility] Start: 02-25-2022 End: 02-25-2022 Patient encounter procedure Rosemarie Roger NEW Psychiatry Comment on above: Uncomplicated alcoho l dependence (HCC) Start: 02-20-2022 End: 02-20-2022 Social Work Alessia [facility] Start: 12-27-2021 End: 12-27-2021 Subsequent hospital visit by physician Ct Prep Qb Radiology Start: 12-10-2021 End: 12-10-2021 ambulatory Aidan Larios MD Work Phone: Transplant Center Comment on above: Liver replaced by tr ansplant (HCC) (Primary Dx); Need for prophylactic immunotherapy Start: 12-10-2021 End: 12-10-2021 Telemedicine consultation with patient Aidan Larios MD Work Phone: [facility] Start: 11-08-2021 Telephone encounter Nadja [facility] Comment on above: Hospital Follow Up Start: 12-06-2020 End: 12-07-[address] LUIS ABDALLA Facility: Procedures Date Procedure Procedure Detail Performing Clinician Start: 09-04-2022 FLUORO ERCP (POC) FOR DDI USE ONLY Betina Quezada MD Work Phone: Start: 09-03-2022 Antibody screen BETINA QUEZADA Comment on above: Order Comment: Specimen Type: BLOOD SPEC IMENOrdering Facility: [facility] Address: [address] [address] Performed By: #### T SCR ####[facility] B[facility] BANKCL[facility] [id number] [place] [address] [place] Start: 02-24-2022 Adult depression screening assessment Rosemariese Roger JOVELW Start: 12-27-2021 Ct abdomen w/contrast material Aidan Larios MD Work Phone: Start: 07-15-2019 H/O: liver recipient Immunosuppressive management encounter following liver transplant Nadja Spencer RN Start: 07-10-2019 H/O: liver recipient Liver transplant recipient Nadja hidalgo RN Start: 07-10-2019 Adult depression screening assessment Nadja Spencer RN H/O: liver recipient Liver repla simon by transplant (HCC) Nadja Spencer RN H/O: liver recipient Liver repla simon by transplant (HCC) Aidan Larios MD Work Phone: H/O: liver recipient Liver trans plant recipient (HCC) Betina Quezada MD Work Phone: H/O: liver recipient Alonso Abdalla Other Plan of Treatment Date Care Activity Detail Author Start: 07-01-2028 Urine microalbumin profile DTAP,TDAP,TD (2 - Td or Tdap) [facility] Start: 07-07-2027 LIPID SCREEN LIPID SCREEN [facility] Start: 07-16-2026 LIPID SCREEN LIPID SCREEN [facility] Start: 01-15-2024 PNEUMOCOCCAL (3 - PP SV23 if available, else PCV20) PNEUMOCOCCAL (3 - PPSV23 if available, else PCV20) [facility] Start: 01-15-2024 PNEUMOCOCCAL (3 - PP SV23 or PCV20) PNEUMOCOCCAL (3 - PPSV23 or PCV20) [facility] Start: 10-05-2023 TWO PNEUMOVAX 5 YEAR S APART PRIOR TO AGE 65 (#2) TWO PNEUMOVAX 5 YEARS APART PRIOR TO AGE 65 (#2) [facility] Start: 02-24-2023 Adult depression screening assessment DEPRESSION SCREENING [facility] Start: 12-02-2022 End: 09-04-2023 ERCP ERCP Endoscopy Routine Biliary stricture Expected: 12/02/2022, Expires: 09/04/2023 [facility] Work Phone: Comment on above: Expected: 12/02/2022 , Expires: 09/04/2023 Start: 07-27-2022 DEPRESSION ASSESSMENT DEPRESSION ASS ESSMENT [facility] Start: 03-27-2022 Influenza vaccination C [facility] Start: 12-30-2021 End: 03-01-2022 Amylase [Enzymatic activity/volume] in Serum or Plasma AMYLASE BLD Lab Routine Expected: 12/30/2021, Expires: 03/01/2022 [facility] Work Phone: Comment on above: Expected: 12/30/2021 , Expires: 03/01/2022 Start: 12-30-2021 End: 03-01-2022 Lipase [Enzymatic activity/volume] in Serum or Plasma LIPASE BLD Lab Routine Expected: 12/30/2021, Expires: 03/01/2022 [facility] Work Phone: Comment on above: Expected: 12/30/2021 , Expires: 03/01/2022 Start: 12-24-2021 End: 01-09-2023 Ct abdomen w/contrast material CT ABDOMEN W IVCON Radiology Routine Expected: 12/24/2021 (Approximate), Expires: 01/09/2023 [facility] Work Phone: Comment on above: Expected: 12/24/2021 (Approximate), Expires: 01/09/2023 Start: 07-27-2021 DEPRESSION ASSESSMENT DEPRESSION ASS ESSMENT [facility] Start: 07-10-2020 Adult depression screening assessment DEPRESSION SCREENING [facility] Start: 07-07-2020 MENINGOCOCCAL B: Consider based on risk (3 of 4 - Increased Risk Bexsero 2-dose series) MENINGOCOCCAL B: Consider based on risk (3 of 4 - Increased Risk Bexsero 2-dose series) [facility] Start: 03-11-2019 MENINGOCOCCAL CONJUG ATE (2 - Risk 2-dose series) MENINGOCOCCAL CONJUGATE (2 - Risk 2-dose series) [facility] Start: 2004 SHINGRIX VACCINE (1 of 2) SHINGRIX VACCINE (1 of 2) [facility] Start: 11-01-2003 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 BRANDON DISEASE VISIT ANNUAL PCP TEAM CHRONIC DISEASE VISIT [facility] Start: 11-01-2003 BP CONTROLLED (<130/80) BP CONTROLLE D (<130/80) [facility] Start: 1997 COVID-19 VACCINE (1) COVID-19 VACCIN E (1) [facility] Start: 1990 COVID-19 VACCINE (#1) COVID-19 VACCI NE (#1) [facility] Start: 05-02-1986 COVID-19 VACCINE (#1) COVID-19 VACCI NE (#1) [facility] Immunizations Immunization Date Immunization Notes Care Provider Sharona wahl 04-18-2020 influenza virus vacc ine, split virus (incl. purified surface antigen) Luis Abdalla Other [facility] Other 07-07-2019 meningococcal B vacc ine, recombinant, OMV, adjuvanted Nadja Spencer RN [facility] 05-20-2019 hepatitis A and hepatitis B vaccine Nadja Spencer RN [facility] 05-20-2019 influenza, injectabl e, quadrivalent, contains preservative Nadja Spencer RN [facility] 01-14-2019 haemophilus influenz ae type b vaccine, PRP-OMP conjugate Nadja Spencer RN [facility] 01-14-2019 meningococcal B vacc ine, recombinant, OMV, adjuvanted Nadja Spencer RN [facility] 01-14-2019 meningococcal oligosaccharide (groups A, C, Y and W-135) diphtheria toxoid conjugate vaccine (MCV4O) Nadja Spencer RN [facility] 01-14-2019 pneumococcal conjuga te vaccine, 13 valent Nadja Spencer RN [facility] 10-04-2018 hepatitis A and hepatitis B vaccine Nadja Spencer RN [facility] 10-04-2018 pneumococcal polysaccharide vaccine, 23 valent Nadja Spencer RN [facility] 07-01-2018 hepatitis A and hepatitis B vaccine Nadja Spencer RN [facility] 07-01-2018 influenza, injectabl e, quadrivalent, contains preservative Nadja Spencer RN [facility] 07-01-2018 pneumococcal conjuga te vaccine, 13 valent Nadja Spencer RN [facility] 07-01-2018 tetanus toxoid, redu simon diphtheria toxoid, and acellular pertussis vaccine, adsorbed Nadja Spencer RN [facility] 04-30-2009 hepatitis B vaccine, adult dosage Nadja Spencer RN [facility] Payers Date Payer Category [place]ayer [place] [id number] 2021-Present [phone] [address] [place] [id number] Medicaid [id number] 2021 Medicaid MEDICAID [facility] MEDICAID [id number] 2021-Present [phone] [address] [place] [address] Medicaid [id number] 2021 Medicaid [id number] 2021 Medicare MEDICARE MEDICAR E A AND B [id number] 2021-Present [phone] [address] [address] [place] [address] Medicare [id number] 2021 Medicare MEDICARE MEDICAR E A AND B [id number] 2021-Present [phone] [place] [address] Medicare [id number] 2021 Medicare [id number] 2020 Medicaid [facility] MEDICAID [facility] MEDICAID [id number] 2020-Present [phone] [address] [place] [address] Medicaid [id number] 1985 Unknown [id number] 1985 Unknown [id number] 1959 Unknown [id number] Social History Date Type Detail Facility Start: 05-04-2018 Tobacco smoking status AZIS Never smoked tobacco [facility] Start: 05-04-2018 Tobacco use and exposure Former smokeless tobacco user [facility] Start: 09-17-2021 End: 09-04-2022 Alcohol intake Current drinker of alcohol (finding) [facility] Start: 07-05-2021 History SDOH Alcohol Comment occasionally [facility] Start: 1985 Sex Assigned At Not on file C [facility] Start: 10-20-2021 End: 2021 Exposure to SARS-CoV-2 (event) Not sure [facility] Sex Assigned At [facility] Tobacco smoking status No Smoking Status Entered [facility] Medical Equipment Procedure Code Equipment Code Equipment Origin al Text Equipment Identifier Dates Stent [employer] 15mm 24mm 138mm 10.8fr Nitinol Silicone 10mm 146mm Pancreatic - [id number] Start: 11-01-2021 Stent 10fr Duode nal Bend Plastic 12cm Biliary Temporary Rapid Exchange - [id number] Start: 09-04-2022 Functional Status Date Assessment Result Facility 06-20-2023 Functional Status N/A [facility] Clinical Notes 07-25-2019 to 06-20-2023 Note Date & Type Note Facility 06-20-2023 Hospital Discharg e instructions Patient Education 06/20/2023 18:04:25 Foot Sprain Foot Sprain A foot sprain is an injury to one of the ligaments in the feet. Ligaments are strong tissues that connect bones to each other. The ligament can be stretched too much. In some cases, it may tear. A tear can be either partial or complete. The severity of the sprain depends on how much of the ligament was damaged or torn. What are the causes? This condition is usually caused by suddenly twisting or pivoting your foot. What increases the risk? You are more likely to develop this condition if: You play a sport, such as basketball or football. You exercise or play a sport without first warming up your muscles. You start a new workout or sport. You suddenly increase how long or hard you exercise or play a sport. You have injured your foot or ankle before. What are the signs or symptoms? Symptoms of this condition start soon after an injury and include: Pain, especially in the arch of your foot. Bruising. Swelling. Being unable to walk or use your foot to support body weight. How is this diagnosed? This condition is diagnosed with a medical history and physical exam. You may also have imaging tests, such as: X-rays to check for broken bones (fractures). An MRI to see if the ligament is torn. How is this treated? Treatment for this condition depends on the severity of the sprain. Mild sprains and major sprains can be treated with: Rest, ice, pressure (compression), and elevation (RICE). Elevation means raising your injured foot. Keeping your foot in a fixed position (immobilization) for a period of time. This is done if your ligament is overstretched or partially torn. Your health care provider will apply a bandage, splint, or walking boot to keep your foot from moving until it heals. Using crutches or a scooter for a few weeks to avoid bearing weight on your foot while it is healing. Physical therapy exercises to improve movement and strength in your foot. Major sprains may also be treated with: Surgery. This is done if your ligament is fully torn and a procedure is needed to reconnect it to the bone. A cast or splint. This will be needed after surgery. A cast or splint will need to stay on your foot while it heals. Follow these instructions at home: If you have a bandage, splint, or boot: Wear it as told by your health care provider. Remove it only as told by your health care provider. Loosen it if your toes tingle, become numb, or turn cold and blue. Keep it clean and dry. If you have a cast: Do not put pressure on any part of the cast until it is fully hardened. This may take several hours. Do not stick anything inside the cast to scratch your skin. Doing that increases your risk for infection. Check the skin around the cast every day. Tell your health care provider about any concerns. You may put lotion on dry skin around the edges of the cast. Do not put lotion on the skin underneath the cast. Keep it clean and dry. Bathing Do not take baths, swim, or use a hot tub until your health care provider approves. Ask your health care provider if you may take showers. You may only be allowed to take sponge baths. If the bandage, splint, boot, or cast is not waterproof: ?Do not let it get wet. ?Cover it with a watertight covering when you take a bath or shower. Managing pain, stiffness, and swelling If directed, put ice on the injured area. To do this: ?If you have a removable bandage, splint, or boot, remove it as told by your health care provider. ?Put ice in a plastic bag. ?Place a towel between your skin and the bag, or between your cast and the bag. ?Leave the ice on for 20 minutes, 2 3 times per day. ?Remove the ice if your skin turns bright red. This is very important. If you cannot feel pain, heat, or cold, you have a greater risk of damage to the area. Move your toes often to reduce stiffness and swelling. Elevate the injured area above the level of your heart while you are sitting or lying down. Activity Do not use the injured foot to support your body weight until your health care provider says that you can. Use crutches or a scooter as told by your health care provider. Ask your health care provider what activities are safe for you. Do exercises as told by your health care provider. Gradually increase how much and how far you walk until your health care provider says it is safe to return to full activity. Driving Ask your health care provider if the medicine prescribed to you requires you to avoid driving or using machinery. Ask your health care provider when it is safe to drive if you have a bandage, splint, boot, or cast on your foot. General instructions Take lycw-wli-ivjzohs and prescription medicines only as told by your health care provider. When you can walk without pain, wear supportive shoes that have stiff soles. Do not wear flip-flops. Do not walk barefoot. Keep all follow-up visits. This is important. Contact a health care provider if: Medicine does not help your pain. Your bruising or swelling gets worse or does not get better with treatment. Your splint, boot, or cast is damaged. Get help right away if: You develop severe numbness or tingling in your foot. Your foot turns blue, white, or [place], and it feels cold. Summary A foot sprain is an injury to one of the ligaments in the feet. Ligaments are strong tissues that connect bones to each other. You may need a bandage, splint, boot, or cast to support your foot while it heals. Sometimes, surgery may be needed. You may need physical therapy exercises to improve movement and strength in your foot. This information is not intended to replace advice given to you by your health care provider. Make sure you discuss any questions you have with your health care provider. Document Revised: 11/02/2020 Document Reviewed: 11/02/2020 [employer] Patient Education 2022 [employer] 06/20/2023 18:04:25 Elastic Bandage and RICE Therapy Elastic Bandage and RICE Therapy Elastic bandages come in different shapes and sizes. They generally provide support to your injury and reduce swelling while you are healing, but they can perform different functions. Your health care provider will help you to decide what is best for your protection, recovery, or rehabilitation after an injury. The routine care of many injuries includes rest, ice, compression, and elevation (RICE therapy). RICE therapy is often recommended for injuries to soft tissues, such as muscle strain, sprains, bruises, and overuse injuries. It can also be used for some bone injuries. Using RICE therapy can help to relieve pain and lessen swelling. What are some general tips for using an elastic bandage? Use the bandage as directed by the maker of the bandage that you are using. Do not wrap the bandage too tightly. This may block (cut off) the circulation in the arm or leg in the area below the bandage. ?If part of your body beyond the bandage becomes blue, numb, cold, swollen, or more painful, your bandage is probably too tight. If this occurs, remove your bandage and reapply it more loosely. Remove and reapply an elastic bandage every 3 4 hours or as told by your health care provider. See your health care provider if the bandage seems to be making your problems worse rather than better. How to care for your injury with RICE therapy Rest Rest your injury. This may help with the healing process. Rest usually involves limiting your normal activities and not using the injured part of your body. Generally, you can return to your normal activities when your health care provider says it is okay and you can do them without much discomfort. If you rest the injury too much, it may not heal as well. Some injuries heal better with early movement instead of resting for too long. Talk with your health care provider about how you should limit your activities and whether you should start hamgf-yz-wudfjo exercises for your injury. Ice Ice your injury to lessen swelling and pain. Do not apply ice directly to your skin. Put ice in a plastic bag. Place a towel between your skin and the bag. Leave the ice on for 20 minutes, 2 3 times a day. Use ice on as many days as told by your health care provider. Compression Put pressure (compression) on your injured area to control swelling, give support, and help with discomfort. Compression may be done with an elastic bandage. Elevation Raise (elevate) your injured area to lessen swelling and pain. If possible, elevate your injured area at or above the level of your heart or the center of your chest. Contact a health care provider if: Your pain and swelling continue. Your symptoms are getting worse rather than improving. Having these problems may mean that you need further evaluation or imaging tests, such as X-rays or an MRI. Sometimes, X-rays may not show a small broken bone (fracture) until days after the injury happened. Make a follow-up appointment with your health care provider. Ask your health care provider, or the department that is doing the imaging test, when your results will be ready. Get help right away if: You have sudden severe pain at or below the area of your injury. You have redness or increased swelling around your injury. You have tingling or numbness at or below the area of your injury and it does not improve after you remove the elastic bandage. Summary Elastic bandages provide support to your injury and reduce swelling while you are healing. Your health care provider will help you decide which type of elastic bandage is best for your injury. Do not wrap the bandage too tightly. This may block (cut off) the circulation in the arm or leg in the area below the bandage. Putting pressure (compression) on your injured area with an elastic bandage is part of RICE therapy. RICE therapy includes rest, ice, compression, and elevation. This treatment is recommended for the routine care of many injuries. This information is not intended to replace advice given to you by your health care provider. Make sure you discuss any questions you have with your health care provider. Document Revised: 09/07/2020 Document Reviewed: 04/02/2018 [employer] Patient Education 2020 [employer]. 06/20/2023 18:04:25 Ankle Sprain, Phase II Rehab Ankle Sprain, Phase II Rehab An ankle sprain is an injury to tissue that connects bone to bone (a ligament) in the ankle. Ankle sprains usually cause stiffness, loss of motion, and loss of strength. Ask your health care provider which exercises are safe for you. Do exercises exactly as told by your health care provider and adjust them as directed. It is normal to feel mild stretching, pulling, tightness, or discomfort as you do these exercises. Stop right away if you feel sudden pain or your pain gets worse. Do not begin these exercises until told by your health care provider. Stretching and hppnt-lg-vxfhrg exercises These exercises warm up your muscles and joints and improve the movement and flexibility of your lower leg and ankle. These exercises also help to relieve pain and stiffness. Standing gastroc stretch This exercise is also called a standing calf (gastroc) stretch. 1.Stand with your hands against a wall. 2.Extend your left / right leg behind you, and bend your front knee slightly. Your heels should be on the floor. 3.Keeping your heels on the floor and your back knee straight, shift your weight toward the wall. You should feel a gentle stretch in the back of your lower leg (calf). 4.Hold this position for seconds. Repeat times. Complete this exercise times a day. Standing soleus stretch This exercise is also called a standing calf (soleus) stretch. 1.Stand with your hands against a wall. 2.Extend your left / right leg behind you, and bend your front knee slightly. Both of your heels should be on the floor. 3.Keeping your heels on the floor, bend your back knee and shift your weight slightly over your back leg. You should feel a gentle stretch deep in your calf. 4.Hold this position for seconds. Repeat times. Complete this exercise times a day. Strengthening exercises These exercises build strength and endurance in your lower leg. Endurance is the ability to use your muscles for a long time, even after they get tired. Heel walking This exercise is sometimes called dorsiflexion. 1.Walk on your heels for seconds or ft. Keep your toes as high as possible. Repeat times. Complete this exercise times a day. Balance exercises These exercises improve your balance and the reaction and control of your ankle to help improve stability. Multi-angle lunge 1.Stand with your feet together. 2.Take a step forward with your left / right leg, and shift your weight onto that leg. Your back heel will come off the floor, and your back toes will stay in place. 3.Push off your front leg to return your front foot to the starting position next to your other foot. 4.Repeat to the side, to the back, and any other directions as told by your health care provider. Repeat times. Complete this exercise times a day. Single leg stand If this exercise is too easy, you can try it with your eyes closed or while standing on a pillow. 1.Without shoes, stand near a railing or in a door frame. Hold on to the railing or door frame as needed. Let loose of the railing or door frame as you are able. 2.Stand on your left / right foot. Keep your big toe down on the floor and try to keep your arch lifted. 3.Hold this position for seconds. Repeat times. Complete this exercise times a day. Ankle inversion and eversion This exercise is also called foot rotation with a balance board. This exercise uses a balance board to rotate the foot and ankle inward (inversion) and outward (eversion). Ask your health care provider where you can get a balance board or how you can make one. 1.Stand on a non-carpeted surface near a countertop or wall. 2.Step onto the balance board so your feet are hip width apart. 3.Keep your feet in place and keep your upper body and hips steady. 4.Using only your feet and ankles to move the board, do the following exercises as told by your health care provider: Tip the board side to side as far as you can, alternating between tipping to the left and tipping to the right. Tip the board so it silently taps the floor. Do not let the board forcefully hit the floor. From time to time, pause to hold a steady midway position, with neither the right nor the left sides touching the ground. Tip the board side to side so the board does not hit the floor at all. From time to time, pause to hold a steady midway position. Repeat times. Complete this exercise times a day. Ankle plantar flexion and dorsiflexion This exercise is also called foot flexion with a balance board. This exercise uses a balance board to push the foot downward and away from the leg (plantar flexion) or upward and toward the leg (dorsiflexion). Ask your health care provider where you can get a balance board or how you can make one. 1.Stand on a non-carpeted surface near a countertop or wall. 2.Step onto the balance board so your feet are hip width apart. 3.Keep your feet in place and keep your upper body and hips steady. 4.Using only your feet and ankles to move the board, do one or both of the following exercises as told by your health care provider: Tip the board forward and backward so the board silently taps the floor. Do not let the board forcefully hit the floor. From time to time, pause to hold a steady position midway between touching the floor in front and touching the floor in back. Tip the board forward and backward so the board does not hit the floor at all. From time to time, pause to hold a steady position in the middle. Repeat times. Complete this exercise times a day. This information is not intended to replace advice given to you by your health care provider. Make sure you discuss any questions you have with your health care provider. Document Revised: 09/05/2021 Document Reviewed: 09/05/2021 [employer] Patient Education 2022 [employer] 06/20/2023 18:04:25 Ankle Sprain, Phase I Rehab Ankle Sprain, Phase I Rehab An ankle sprain is an injury to the ligaments of your ankle. Ankle sprains cause stiffness, loss of motion, and loss of strength. Ask your health care provider which exercises are safe for you. Do exercises exactly as told by your health care provider and adjust them as directed. It is normal to feel mild stretching, pulling, tightness, or discomfort as you do these exercises. Stop right away if you feel sudden pain or your pain gets worse. Do not begin these exercises until told by your health care provider. Stretching and llpgj-un-kibhdb exercises These exercises warm up your muscles and joints and improve the movement and flexibility of your lower leg and ankle. These exercises also help to relieve pain and stiffness. Gastroc and soleus stretch This exercise is also called a calf stretch. It stretches the muscles in the back of the lower leg. These muscles are the gastrocnemius, or gastroc, and the soleus. 1.Sit on the floor with your left / right leg extended. 2.Loop a belt or towel around the ball of your left / right foot. The ball of your foot is on the walking surface, right under your toes. 3.Keep your left / right ankle and foot relaxed and keep your knee straight while you use the belt or towel to pull your foot toward you. You should feel a gentle stretch behind your calf or knee in your gastroc muscle. 4.Hold this position for seconds, then release to the starting position. 5.Repeat the exercise with your knee bent. You can put a pillow or a rolled bath towel under your knee to support it. You should feel a stretch deep in your calf in the soleus muscle or at your Achilles tendon. Repeat times. Complete this exercise times a day. Ankle alphabet 1.Sit with your left / right leg supported at the lower leg. Do not rest your foot on anything. Make sure your foot has room to move freely. 2.Think of your left / right foot as a paintbrush. Move your foot to trace each letter of the alphabet in the air. Keep your hip and knee still while you trace. Make the letters as large as you can without feeling discomfort. 3.Trace every letter from A to Z. Repeat times. Complete this exercise times a day. Strengthening exercises These exercises build strength and endurance in your ankle and lower leg. Endurance is the ability to use your muscles for a long time, even after they get tired. Ankle dorsiflexion 1.Secure a rubber exercise band or tube to an object, such as a table leg, that will stay still when the band is pulled. Secure the other end around your left / right foot. 2.Sit on the floor facing the object, with your left / right leg extended. The band or tube should be slightly tense when your foot is relaxed. 3.Slowly bring your foot toward you, bringing the top of your foot toward your kirby (dorsiflexion), and pulling the band tighter. 4.Hold this position for seconds. 5.Slowly return your foot to the starting position. Repeat times. Complete this exercise times a day. Ankle plantar flexion 1.Sit on the floor with your left / right leg extended. 2.Loop a rubber exercise tube or band around the ball of your left / right foot. The ball of your foot is on the walking surface, right under your toes. Hold the ends of the band or tube in your hands. The band or tube should be slightly tense when your foot is relaxed. 3.Slowly point your foot and toes downward to tilt the top of your foot away from your kirby (plantar flexion). 4.Hold this position for seconds. 5.Slowly return your foot to the starting position. Repeat times. Complete this exercise times a day. Ankle eversion 1.Sit on the floor with your legs straight out in front of you. 2.Loop a rubber exercise band or tube around the ball of your left / right foot. The ball of your foot is on the walking surface, right under your toes. Hold the ends of the band in your hands, or secure the band to a stable object. The band or tube should be slightly tense when your foot is relaxed. 3.Slowly push your foot outward, away from your other leg (eversion). 4.Hold this position for seconds. 5.Slowly return your foot to the starting position. Repeat times. Complete this exercise times a day. This information is not intended to replace advice given to you by your health care provider. Make sure you discuss any questions you have with your health care provider. Document Revised: 09/05/2021 Document Reviewed: 09/05/2021 [employer] Patient Education 2022 [employer] 06/20/2023 18:04:25 Ankle Sprain Ankle Sprain An ankle sprain is a stretch or tear in a ligament in the ankle. Ligaments are tissues that connect bones to each other. The two most common types of ankle sprains are: Inversion sprain. This happens when the foot turns inward and the ankle rolls outward. It affects the ligament on the outside of the foot (lateral ligament). Eversion sprain. This happens when the foot turns outward and the ankle rolls inward. It affects the ligament on the inner side of the foot (medial ligament). What are the causes? This condition is often caused by accidentally rolling or twisting the ankle. What increases the risk? You are more likely to develop this condition if you play sports. What are the signs or symptoms? Symptoms of this condition include: Pain in your ankle. Swelling. Bruising. This may develop right after you sprain your ankle or 1 2 days later. Trouble standing or walking, especially when you turn or change directions. How is this diagnosed? This condition is diagnosed with: A physical exam. During the exam, your health care provider will press on certain parts of your foot and ankle and try to move them in certain ways. X-ray imaging. These may be taken to see how severe the sprain is and to check for broken bones. How is this treated? This condition may be treated with: A brace or splint. This is used to keep the ankle from moving until it heals. An elastic bandage. This is used to support the ankle. Crutches. Pain medicine. Surgery. This may be needed if the sprain is severe. Physical therapy. This may help to improve the range of motion in the ankle. Follow these instructions at home: If you have a brace or a splint: Wear the brace or splint as told by your health care provider. Remove it only as told by your health care provider. Loosen the brace or splint if your toes tingle, become numb, or turn cold and blue. Keep the brace or splint clean. If the brace or splint is not waterproof: ?Do not let it get wet. ?Cover it with a watertight covering when you take a bath or a shower. If you have an elastic bandage (dressing): Remove it to shower or bathe. Try not to move your ankle much, but wiggle your toes from time to time. This helps to prevent swelling. Adjust the dressing to make it more comfortable if it feels too tight. Loosen the dressing if you have numbness or tingling in your foot, or if your foot becomes cold and blue. Managing pain, stiffness, and swelling Take ably-dvm-bivbgaz and prescription medicines only as told by your health care provider. For 2 3 days, keep your ankle raised (elevated) above the level of your heart as much as possible. If directed, put ice on the injured area: ?If you have a removable brace or splint, remove it as told by your health care provider. ?Put ice in a plastic bag. ?Place a towel between your skin and the bag. ?Leave the ice on for 20 minutes, 2 3 times a day. General instructions Rest your ankle. Do not use the injured limb to support your body weight until your health care provider says that you can. Use crutches as told by your health care provider. Do not use any products that contain nicotine or tobacco, such as cigarettes, e-cigarettes, and chewing tobacco. If you need help quitting, ask your health care provider. Keep all follow-up visits as told by your health care provider. This is important. Contact a health care provider if: You have rapidly increasing bruising or swelling. Your pain is not relieved with medicine. Get help right away if: Your foot or toes become numb or blue. You have severe pain that gets worse. Summary An ankle sprain is a stretch or tear in a ligament in the ankle. Ligaments are tissues that connect bones to each other. This condition is often caused by accidentally rolling or twisting the ankle. Symptoms include pain, swelling, bruising, and trouble walking. To relieve pain and swelling, put ice on the affected ankle, raise your ankle above the level of your heart, and use an elastic bandage. Keep all follow-up visits as told by your health care provider. This is important. This information is not intended to replace advice given to you by your health care provider. Make sure you discuss any questions you have with your health care provider. Document Revised: 09/05/2021 Document Reviewed: 09/05/2021 [employer] Patient Education 2022 [employer]. Follow Up Care 06/20/2023 15:55:18 With:LUIS RM Address: [facility] [place] [address] Business (1) When:06/23/2023 17:48:00 Comments:Follow-up with your primary care provider in 3 to 5 days. If symptoms worsen, do not improve, or new symptoms arise please report back to emergency department for further evaluation. [facility] 06-20-2023 Evaluation + Plan note Extrac edwardo from: Title:ED Note Author:Dilan Adames PA-C te:06/20/23 Left ankle sprain (S93.402A: Sprain of unspecified ligament of left ankle, initial encounter) Sprain of left foot (S93.602A: Unspecified sprain of left foot, initial encounter) Orders: Air [employer] Long [facility]11-16-2023 Evaluation note* Encounter Date Diagnosis Assessment Notes Treatment Notes Treatment Clinical Notes May, Wellness examination (ICD-10 - Z00.00) Healthy diet and exercise. Reviewed age-appropriate preventive testing recommended. May, Primary hypertension (ICD-10 - I10) This patient is instructed to consume a healthy, low-fat, low-salt diet. They are also encouraged to continue exercise to achieve/maintain a normal BMI. Patient is instructed on home BP measurements: - rest for 5 minutes w/o talking- positioned w/ feet on floor and arm supported- average best 2/3 readings w/ goal < 135/85 Increase Coreg to 25mg bid _update office in week 16 May, 2023 Gastroesophageal reflux disease with esophagitis without hemorrhage (ICD-10 - K21.00) Diet instructions: Smaller portions, avoid eating and laying flat, avoid eating or drinking prior to bedtime. Weight loss. May, Immunosuppressed status (ICD-10 - D84.9) Monitor for s/s intercurrent infection. Notify office w/ fever, chills or symptoms. Declines vaccination against flu May, Liver transplant recipient (ICD-10 - Z94.4) f/u [facility] Monitor for s/s infection or CBD obstruction May, Nausea (ICD-10 - R11.0) [facility] Other 08-24-2023 NoteQ3 Patient Name: Chuckie Villalta Procedure Date: 03/19/2023 8:51 AM Date of : 1985 Admit Type: Outpatient Age: 37 Gender: Male Note Status: Finalized Attending MD: Betina Quezada MD Procedure: ERCP Indications: Post liver transplant assessment, Bile duct stricture Providers: Betina Quezada MD Referring Physician: Betina Quezada MD (Referring MD) Medicines: General Anesthesia Complications: No immediate complications. Requesting Provider: Procedure: Pre-Anesthesia Assessment: - ASA Grade Assessment: II - A patient with mild systemic disease. After obtaining informed consent, the scope was passed under direct vision. Throughout the procedure, the patient's blood pressure, pulse, and oxygen saturations were monitored continuously. The Duodenoscope was introduced through the mouth, and advanced to the duodenum and used to cannulate the bile duct. The ERCP was accomplished without difficulty. The patient tolerated the procedure well. Moderate Sedation: MAC Findings: A kiln charger film of the abdomen was obtained. Surgical clips were seen in the area of the right upper quadrant of the abdomen. Two stents ending in the main bile duct were seen. Two plastic stents originating in the biliary tree were emerging from the major papilla. The stents were visibly occluded. Two stents were removed from the biliary tree using a Raptor grasping device. The bile duct was deeply cannulated with the 11.5 mm balloon and guidewire. Contrast was injected. I personally interpreted the bile duct images. There was brisk flow of contrast through the ducts. Image quality was excellent. Contrast extended to the main bile duct. Contrast extended to the bifurcation. Contrast extended to the hepatic ducts. The post-transplant anastomosis contained a single mild segmental stenosis 10 mm in length. The post-transplant anastomosis were successfully dilated with an 8 mm balloon dilator. To discover objects, the biliary tree was swept with a 15 mm balloon starting at the bifurcation. Debris was swept from the duct. A few stones were removed. No stones remained. Impression: - Two visibly occluded stents from the biliary tree were seen in the major papilla. - Biliary stricture post-transplant anastomosis resolved. The stricture was post-surgical. - Choledocholithiasis was found. Complete removal was accomplished by balloon extraction. - Two stents were removed from the biliary tree. - The post-transplant anastomosis was successfully dilated to 8 mm with minimal resistance. - The biliary tree was swept and debris was found. Estimated Blood Loss: Estimated blood loss: none. Recommendation: - Patient has a contact number available for emergencies. The signs and symptoms of potential delayed complications were discussed with the patient. Return to normal activities tomorrow. Written discharge instructions were provided to the patient. - Resume previous diet. - Continue present medications. Procedure Code(s): --- Professional --- 47984, Endoscopic retrograde cholangiopancreatography (ERCP); with removal of foreign body(s) or stent(s) from biliary/pancreatic duct(s) 62236, Endoscopic retrograde cholangiopancreatography (ERCP); with removal of calculi/debris from biliary/pancreatic duct(s) 23665, Endoscopic catheterization of the biliary ductal system, radiological supervision and interpretation Diagnosis Code(s): --- Professional --- T85.590A, Other mechanical complication of bile duct prosthesis, initial encounter K91.89, Other postprocedural complications and disorders of digestive system K83.1, Obstruction of bile duct K80.50, Calculus of bile duct without cholangitis or cholecystitis without obstruction Z46.59, Encounter for fitting and adjustment of other gastrointestinal appliance and device Z09, Encounter for follow-up examination after completed treatment for conditions other than malignant neoplasm Z94.4, Liver transplant status CPT copyright 2020 [employer]. All rights reserved. Attending Participation: I was present and participated during the entire procedure, including non-herr portions. Scope In: 9:20:16 AM Scope Out: 9:35:13 AM MD Betina Troncoso MD 03/19/2023 9:49:13 AM This report has been signed electronically by Betina Quezada MD Number of Addenda: 0 Note Initiated On: 03/19/2023 8:51 [facility]08-24-2023 NoteHNO ID: [id number] Author: Indu Meza, RN Service: Nursing Author Type: Registered Nurse Type: Nursing Progress Note Filed: 03/19/2023 8:29 AM Note Text: VBG collected from [facility] and sent to blood gas lab per MD order. [facility]du [facility]* Encounter Date Diagnosis Assessment Notes Treatment Notes Treatment Clinical Notes Feb, Dermatitis, dyshidrotic (ICD-10 - L30.1) Moisturizer and Cortisone w/ itching or rash. Feb, Cellulitis of head except face (ICD-10 - L03.811) Warm compresses. Cleanse w/ soap and water. Bactroban ointment bid Initiated Doryx for next week. Call after 7 days if not completely clear Feb, Primary hypertension (ICD-10 - I10) This patient is instructed to consume a healthy, low-fat, low-salt diet. They are also encouraged to continue exercise to achieve/maintain a normal BMI. Didn't take his medications this morning. Instructed to recheck after taking medications. Goal is BP < 140/90 and HR less than 90 [facility] Other 05-18-2023 NoteHNO ID: [id number] Author: Yun Hutchinson APRN.AREA CLEANER Service: ? Author Type: Nurse Nutrition Teacher Type: Anesthesia Procedure Notes Filed: 12/11/2022 10:17 AM Note Text: ANESTHESIOLOGY PROCEDURE NOTE Airway General Information Procedure Start Time/Medication Administration: 12/11/2022 10:08 AM Patient location during procedure: OR Timeout Performed Pre-procedure: timeout performed Consent Obtained: Yes Patient identity confirmed: arm band and patient Staffing AREA CLEANER: Yun Hutchinson APRN.AREA CLEANER Performed by: AREA CLEANER Indications and Patient Condition Indications for airway management: anesthesia and airway protection Preoxygenated: yes anesthesia circuit Patient position: sniffing Method: asleep Difficult Mask: No Final Airway Details Final airway type: endotracheal airway Cuffed: yes Successful intubation technique: video laryngoscopy Devices used: Glidescope Blade: Flaquita Blade size: #4 Placement verified by: capnometry Cormack-Lehane Classification: grade IIb - view of arytenoids or posterior of glottis only Number of attempts at approach: 1 Airway not difficult SIGNATURE: Yun Hutchinson APRN.GLORIA PATIENT NAME: Chuckie Villalta DATE: December 11, 2022 TIME: 10:15 AM CSN: [id number] NoteQ3 Patient Name: Chuckie Villalta Procedure Date: 12/11/2022 9:56 AM Date of : 1985 Admit Type: Outpatient Age: 37 Gender: Male Note Status: Finalized Attending MD: Betina Quezada MD Procedure: ERCP Indications: Stent change, h/o OLT Providers: Betina Quezada MD, Solitario Deleon MD (Fellow) Patient Profile: This is a 37 year old male. Refer to note in patient chart for documentation of history and physical. Referring Physician: Betina Quezada MD (Referring MD) Medicines: General Anesthesia Complications: No immediate complications. Requesting Provider: Procedure: Pre-Anesthesia Assessment: - Prior to the procedure, a History and Physical was performed, and patient medications and allergies were reviewed. The patient's tolerance of previous anesthesia was also reviewed. The risks and benefits of the procedure and the sedation options and risks were discussed with the patient. All questions were answered, and informed consent was obtained. Prior Anticoagulants: The patient has taken no anticoagulant or antiplatelet agents. ASA Grade Assessment: III - A patient with severe systemic disease. After reviewing the risks and benefits, the patient was deemed in satisfactory condition to undergo the procedure. After obtaining informed consent, the scope was passed under direct vision. Throughout the procedure, the patient's blood pressure, pulse, and oxygen saturations were monitored continuously. The Duodenoscope was introduced through the mouth, and advanced to the duodenum and used to inject contrast into the bile duct. The ERCP was accomplished without difficulty. The patient tolerated the procedure well. Moderate Sedation: General anesthesia was administered by the anesthesia team. Findings: A biliary stent was visible on the kiln charger film. A kiln charger film of the abdomen was obtained. Surgical clips, consistent with a previous OLT, were seen in the area of the right upper quadrant of the abdomen. One stent was removed from the biliary tree using a Raptor grasping device. A 0.025 inch x 270 cm straight Visiglide wire was passed into the biliary tree in right anterior hepatic duct. The 11.5 mm balloon was passed over the guidewire and the bile duct was then deeply cannulated. Contrast was injected. I personally interpreted the bile duct images. There was brisk flow of contrast through the ducts. Image quality was excellent. Contrast extended to the entire biliary tree. The post-transplant anastomosis contained a single segmental stenosis. Another 0.035 viziglide wire was passed into the right posterior duct. Dilation of the post-transplant anastomosis with an 8 mm balloon dilator was successful. To discover objects, the biliary tree was swept with an 11.5 mm balloon starting at the upper third of the main bile duct. Sludge was swept from the duct. One stone was removed. No stones remained. One 7 Fr by 12 cm transpapillary temporary plastic biliary stent was placed into the right anterior hepatic duct. Bile flowed through the stent. The stent was in good position. One 10 Fr by 12 cm transpapillary temporary plastic biliary stent was placed into the right posterior hepatic duct. Bile flowed through the stent. The stent was in good position. Impression: - Previously placed biliary stent removed. - A single segmental biliary stricture was found in the post-transplant anastomosis. Dilated. - Choledocholithiasis was found. Complete removal was accomplished by balloon extraction. - One stent was removed from the biliary tree. - One 7 Fr 12 cm temporary plastic biliary stent was placed into the right anterior hepatic duct. - One 10 Fr 12 cm temporary plastic biliary stent was placed into the right posteior hepatic duct. Estimated Blood Loss: Estimated blood loss: none. Recommendation: - Discharge patient to home. - Resume previous diet. - Continue present medications. - Repeat ERCP in 3 months to exchange stent. Procedure Code(s): --- Professional --- 10460, Endoscopic retrograde cholangiopancreatography (ERCP); with removal and exchange of stent(s), biliary or pancreatic duct, including pre- and post-dilation and guide wire passage, when performed, including sphincterotomy, when performed, each stent exchanged 83675, 47, Endoscopic retrograde cholangiopancreatography (ERCP); with removal and exchange of stent(s), biliary or pancreatic duct, including pre- and post-dilation and guide wire passage, when performed, including sphincterotomy, when performed, each stent exchanged 79415, 59, Endoscopic retrograde cholangiopancreatography (ERCP); with trans-endoscopic balloon dilation of biliary/pancreatic duct(s) or of ampulla (sphincteroplasty), including sphincterotomy, when performed, each duct 52186, Endoscopic retrograde cholangiopancreatography (ERCP); with removal of calculi/debris from biliary/pancre (more content not included)...[facility]02-27-2023 Miscellaneous Notes* Telephone Encounter - Rashida Liriano RN - 09/22/2022 11:30 AM EST Called and left patient regarding referral to [facility]. Call back number provided. Next [employer] message with the details also sent. Rashida Liriano RN September 22, 2022 11:32 AM [facility]* Encounter Date Diagnosis Assessment Notes Treatment Notes Treatment Clinical Notes Aug, Primary hypertension (ICD-10 - I10) Aug, Acute biliary pancreatitis without infection or necrosis (ICD-10 - K85.10) Secondary to obstruction of CBD. Recommended restarting Ursidiol. Aug, Thrombocytopenia (ICD-10 - D69.6) Secondary to chronic liver disease. Monitor for now. No bruising, epistaxis, hematuria or hematochezia Aug, Anemia, unspecified type (ICD-10 - D64.9) Secondary to chronic disease. 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 c/b pHTN s/p OLT (07/11/19; on Tacro) c/b PV steal via portosystemic shunt (s/p ligation 06/2019 with moderate acute allograft rejection (s/p liver biopsy 2 weeks post transplant; no evidence of rejection on liver biopsy 2019) as well as multiple anastamotic biliary strictures requiring biliary dilation and stenting (01/2020, 04/2020 and most recently 06/2020) as well as h/o choledocholithiasis s/p removal (06/2020 ERCP) and necrotizing pancreatitis c/b WON s/p cystgastrostomy (10/2021) in the setting of EtOH use (last drink 1 week prior to admission) who was admitted on 08/31 d/t abdominal pain suspected to be 2/2 EtOH-related pancreatitis. Noted to have new elevated liver function tests for which the hepatology team was consulted. The etiology of the mixed liver injury is unclear at this time but suspect it to be multifactorial in the setting of alcoholic hepatitis and biliary obstruction now s/p ERCP with biliary stricture dilation and R hepatic duct stenting (09/04/22). Liver biopsy from 09/03/22 with final path c/w reactive/regenerative changes and focal portal changes indeterminate for T cell mediated rejection with staining pending. Completed labs: EBV VCA IgM negative, CMV DNA neg, Ceruloplasmin 17, Iron panel s/f iron deficiency, Acute hep panel neg (Hep A Ab IgM neg, HBsAg neg, HBcAb IgM neg, HCV RNA neg), AMA neg, ASMA neg, LENNY neg, A1AT phenotype no variant, VZV IgM 0.07, Neg Hep delta Tacrolimus trough: 10.5 Liver biopsy (09/03/22): Liver allograft, approximately 4 years 2 months post-transplantation, biopsy: - Liver parenchyma with reactive/regenerative change and focal portal change, indeterminate for T-cell mediated rejection (acute cellular rejection). Pending labs: Anti-HEV pEth Plan: - F/u percutaneous liver biopsy result staining - Please continue to check daily tacro troughs. Please ensure that it is done 60mins before dose given. Continue tacrolimus to 2mg BID. Tacro trough target 8-10 for now while final stains result. - F/u remainder of labwork - Will need repeat ERCP for stent exchange/removal in 4-6 weeks - Maintain stable hemodynamic status; would transfuse to maintain Hgb>7, Plt>50K - Continue to monitor CBC, CMP, and INR daily - OK to discontinue TMP-SMX - Upon discharge pt will need close hepatology follow-up and will need information (from SW) on EtOH cessation/avoidance and continued participation in AA Jerri Camacho MD Gastroenterology AND Hepatology Fellow Pager [phone] Will d/w staff Dr. Crawford.[facility]02-09-2023 NoteHNO ID: [id number] Author: Minna Dwyer MD Service: General Internal Medicine Author Type: Physician Type: Progress Notes Filed: 09/04/2022 4:09 PM Note Text: DEPARTMENT OF HOSPITAL MEDICINE PROGRESS NOTE SERVICE DATE: 09/04/2022 SERVICE TIME: 3:55 PM Hospital Medicine/Primary Attending: Minna Dwyer MD NIGHT AND WEEKEND COVERAGE: [facility] COVERAGE: Days: [phone], please page Minna Dwyer for patient issues. Nights: [phone], please page Team GIM 6: G/H 8th floor: [address]; Non 8th floor [address] Subjective INTERVAL HPI: No significant events overnight. Current Facility-Administered Medications Medication Dose Route Frequency NaCl 0.9% iv flush bag 20 mL INTRAVENOUS PRN carvedilol 12.5 mg tab(s) (COREG) 12.5 mg ORAL BID labetalol 10 mg injection syringe (NORMODYNE) 10 mg INTRAVENOUS q 4 H PRN melatonin 3 mg tab(s) 3 mg ORAL DAILY (8 PM) acetaminophen 650 mg tab(s) (TYLENOL) 650 mg ORAL q 6 H PRN ondansetron (PF) 4 mg injection (ZOFRAN) 4 mg INTRAVENOUS q 6 H PRN prochlorperazine 10 mg injection (COMPAZINE) 10 mg INTRAVENOUS q 6 H PRN amLODIPine 10 mg tab(s) (NORVASC) 10 mg ORAL DAILY tacrolimus IR 2 mg cap(s) (PROGRAF) 2 mg ORAL q 12 H 6a/6p polyethylene glycol 3350 17 g packet (MIRALAX, GLYCOLAX) 17 g ORAL DAILY senna 8.6 mg tab(s) (SENOKOT) 1 tablet ORAL BID pantoprazole 40 mg injection (PROTONIX) 40 mg INTRAVENOUS BID AC (0600/1600) oxyCODONE IR 5 mg tab(s) (ROXICODONE) 5 mg ORAL q 8 H PRN morphine 4 mg injection 4 mg INTRAVENOUS q 4 H PRN Objective PHYSICAL EXAM: BP 135/79 Pulse 86 Temp (Src) 97.9 (Oral) Resp 19 Ht 6' 0 (1.83m) Wt 210 lb (95.3kg) SpO2 94% BMI 28.47 kg/(m2). O2 Therapy: Room Air Physical Exam Performed AAANDOx3, well nourished appearance, no distress, cooperative Normocephalic. EOMI. MMM Lungs clear, no w/r/r RRR, nl S1 AND S2; no r/m/g Abdomen soft, non-tender, BS normal, No masses Normal affect. CN 2-12 intact. Grossly intact sensation. Normal strength in UANDLE Lines, Drains, and Airways Line Duration Peripheral 08/31/22 1736 Left Antecubital 18 Gauge 3 days Reviewed lines and needs to be continued: REASONS: Intravenous fluids DATA: Diagnostic tests reviewed for today's visit: Most recent labs Most recent imaging Most recent EKG Assessment/Plan Problem List Acute pancreatitis without infection or necrosis POA: Yes Liver transplant recipient (HCC) POA: Yes Immunosuppressive management encounter following liver transplant (HCC) POA: Yes Acute pancreatitis POA: Yes YOAN (acute kidney injury) (HCC) POA: Yes Primary hypertension POA: Yes HOSPITAL COURSE: Chuckie Villalta is a 36yo male w etoh cirrhosis s/p LDLT w R lobe 06/2019 c/b PV steal vial port-systemic shunt with moderate allograft rejection s/p exploratory laparotomy, ligation of portosystemic shunt on 07/21 c/b biliary anastomotic stricture requiring bilary stenting and sphincterotomy (last 07/16/20), recent admission for pancreatitis in the setting of (+) PETH test in November. Pt presented to ED with abdominal pain found to have acute appendicitis Problem List Principal Problem: Acute pancreatitis without infection or necrosis POA: Yes Active Problems: Liver transplant recipient (HCC) POA: Yes Immunosuppressive management encounter following liver transplant (HCC) POA: Yes Acute pancreatitis POA: Yes YOAN (acute kidney injury) (HCC) POA: Yes Primary hypertension POA: Yes Resolved Problems: * No resolved hospital problems. * Acute pancreatitis Lactic acidosis BISAP score of 1 (presuming no pleural effusion) Secondary to alcohol use? Check drug screen Patient with recent necrotizing pancreatitis in October required cystogastrostomy stent placement. Triglyceride 190 last June S/p cholecystectomy Lactate improved PLAN: -advancing diet as tolerated -Strict intake and output -Continue oxy and morphine for pain control -Educated the patient about importance of abstinence from alcohol Elevated bilirubin Transaminitis Thrombocytopenia Less likely rejection Secondary to dehydration and pancreatitis? Fraction bili: predominantly conjugated US RUQ - stable mild intrahepatic biliary duct dilation similar to 10/2021 US liver vasc neg Neg HIV, EBV Igm, CMV DNA, HCV RNA Neg hepatitis panel (acute and remote) Neg LENNY, ASMA, AMA Ceruloplasmin, Cu, folate, vit B12, wnl Low iron 26 LDH, hapto, fibrinogen, coag panel unremarkable s/p 2u platelet transfusion 09/03 Low zinc s/p ERCP 09/04 w/ gastric stent (axios) removal, biliary stricture noted and stent placement in R hepatic duct -Hepatology consulted, appreciate rec: Hep E AND D abs, VZV IgM, A1AT, PETH -hematology consulted, appreciate rec: vit b6 -repeat ERCP in 3 months -IR liver biopsy-prelim: No evidence of ACR or chronic rejection; no evidence of bile duct injury or portal vein injury. Changes appear to be most c/w alcoholic hepatitis with (more content not included)...[facility]02-09-2023 Miscellaneous Notes* Telephone Encounter - Betina Quezada MD - 09/04/2022 2:03 PM EST Stent change with bruna documented in [facility] encounterC[facility]-2023 NoteHNO ID: [id number] Author: Yamilet Giraldo RN Service: Nursing Author Type: Registered Nurse Type: Nursing Progress Note Filed: 09/04/2022 10:58 AM Note Text: Pt nauseous, order for 4mg zofran given per dr junior order, report called to ayana storm rn g100.[facility]02-09-2023 NoteQ3 Patient Name: Chuckie Villalta Procedure Date: 09/04/2022 8:31 AM Date of : 1985 Admit Type: Inpatient Age: 36 Gender: Male Note Status: Finalized Attending MD: Betina Quezada MD Procedure: ERCP Indications: Stent removal, Post liver transplant assessment, Bile duct stricture Providers: Betina Quezada MD Referring Physician: Minna Dwyer (Referring MD) Medicines: General Anesthesia Complications: No immediate complications. Requesting Provider: Procedure: Pre-Anesthesia Assessment: - ASA Grade Assessment: II - A patient with mild systemic disease. After obtaining informed consent, the scope was passed under direct vision. Throughout the procedure, the patient's blood pressure, pulse, and oxygen saturations were monitored continuously. The Endoscope was introduced through the mouth, and advanced to the second part of duodenum. The Duodenoscope was introduced through the mouth, and advanced to the and used to inject contrast into the bile duct. The ERCP was accomplished without difficulty. The patient tolerated the procedure well. Moderate Sedation: MAC Findings: A kiln charger film of the abdomen was obtained. One stent ending in the main bile duct was seen. The upper GI tract was traversed under direct vision without detailed examination. A previously placed cystgastrostomy stent was found in the gastric body. A duodenal stent was removed through the esophagogastroduodenoscope. The bile duct was deeply cannulated with the 11.5 mm balloon and guidewire. Contrast was injected. I personally interpreted the bile duct images. There was brisk flow of contrast through the ducts. Image quality was excellent. Contrast extended to the main bile duct. Contrast extended to the bifurcation. Contrast extended to the hepatic ducts. The post-transplant anastomosis contained a single severe localized stenosis 5 mm in length. The upper third of the main bile duct was successfully dilated with a 6 mm balloon dilator. To discover objects, the biliary tree was swept with an 11.5 mm balloon starting at the right intrahepatic duct(s). Nothing was found. One 10 Fr by 12 cm transpapillary plastic biliary stent with a single external flap and a single internal flap was placed 12 cm into the right hepatic duct. Bile flowed through the stent. The stent was in good position. Impression: - Pre-existing gastric stent (axios) removed. - A single severe localized biliary stricture was found in the post-transplant anastomosis. The stricture was post-surgical. - Stricture successfully dilated to 6 mm to allow stent insertion. - The biliary tree was swept and nothing was found. - One 10 Fr plastic biliary stent was placed into the right hepatic duct. Estimated Blood Loss: Estimated blood loss: none. Recommendation: - Patient has a contact number available for emergencies. The signs and symptoms of potential delayed complications were discussed with the patient. Return to normal activities tomorrow. Written discharge instructions were provided to the patient. - Resume previous diet. - Continue present medications. Procedure Code(s): --- Professional --- 89571, Endoscopic retrograde cholangiopancreatography (ERCP); with placement of endoscopic stent into biliary or pancreatic duct, including pre- and post-dilation and guide wire passage, when performed, including sphincterotomy, when performed, each stent [id number], Esophagogastroduodenoscopy, flexible, transoral; with removal of foreign body(s) 08674, Endoscopic catheterization of the biliary ductal system, radiological supervision and interpretation Diagnosis Code(s): --- Professional --- Z97.8, Presence of other specified devices K91.89, Other postprocedural complications and disorders of digestive system K83.1, Obstruction of bile duct Z46.59, Encounter for fitting and adjustment of other gastrointestinal appliance and device Z09, Encounter for follow-up examination after completed treatment for conditions other than malignant neoplasm Z94.4, Liver transplant status CPT copyright 2020 [employer]. All rights reserved. Attending Participation: I personally performed the entire procedure. 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 c/b pHTN s/p OLT (07/11/19; on Tacro) c/b PV steal via portosystemic shunt (s/p ligation 06/2019 with moderate acute allograft rejection (s/p liver biopsy 2 weeks post transplant; no evidence of rejection on liver biopsy 2019) as well as multiple anastamotic biliary strictures requiring biliary dilation and stenting (01/2020, 04/2020 and most recently 06/2020) as well as h/o choledocholithiasis s/p removal (06/2020 ERCP) and necrotizing pancreatitis c/b WON s/p cystgastrostomy (10/2021) in the setting of EtOH use (last drink 1 week prior to admission) who was admitted on 08/31 d/t abdominal pain suspected to be 2/2 EtOH-related pancreatitis. Noted to have new elevated liver function tests for which the hepatology team was consulted. The etiology of the mixed liver injury is unclear at this time. Given the acute elevation with subsequent, persistent downtrend suspect that it may be 2/2 ischemia in the setting of acute lowering BP with use of anti-hypertensives since admission. Less likely to be secondary to acute infectious etiology or graft rejection (given tacro troughs have been therapeutic) given acute elevation but given prior evidence of cellular rejection (s/p biopsy 2018 x 4) perc liver biopsy recommended and completed on 09/03/22 so will f/u results. Completed labs: EBV VCA IgM negative, CMV DNA neg, Ceruloplasmin 17, Iron panel s/f iron deficiency, Acute hep panel neg (Hep A Ab IgM neg, HBsAg neg, HBcAb IgM neg, HCV RNA neg), AMA neg, ASMA neg, LENNY neg, Pending labs: Anti-HEV Hep delta Ab VZV IgM A1AT phenotype [facility] Plan: - F/u percutaneous liver biopsy results (completed 09/03/22) - Please continue to check daily tacro troughs. Continue tacrolimus 2mg/2mg. Please check tacro troughs 60min before Tacro AM dose. - F/u remainder of labwork - Maintain stable hemodynamic status; would transfuse to maintain Hgb>7, Plt>50K - Continue to monitor CBC, CMP, and INR daily - OK to discontinue TMP-SMX as >1 year post transplant and currently only on Tacro for IS. If c/f recurrent respiratory infections or pt concern can consider ID consultations to weigh in on risk of PCP prophylaxis post-transplant. - Upon discharge pt will need close hepatology follow-up (requested with Genevieve Burton; please ensure it is scheduled) and will need information (from SW) on EtOH cessation/avoidance and continued participation in AA Jerri Camacho MD Gastroenterology AND Hepatology Fellow Pager [phone] Will d/w staff Dr. Crawford. Addendum 09/04/22 12:26PM: Prelim path read: No evidence of ACR or chronic rejection; no evidence of bile duct injury or portal vein injury. Changes appear to be most c/w alcoholic hepatitis with severe reactivity. [facility]02-08-2023 NoteHNO ID: [id number] Author: Minna Dwyer MD Service: General Internal Medicine Author Type: Physician Type: Progress Notes Filed: 09/03/2022 2:32 PM Note Text: DEPARTMENT OF HOSPITAL MEDICINE PROGRESS NOTE SERVICE DATE: 09/03/2022 SERVICE TIME: 2:24 PM Hospital Medicine/Primary Attending: Minna Dwyer MD NIGHT AND WEEKEND COVERAGE: [facility] COVERAGE: Days: [phone], please page Minna Dwyer for patient issues. Nights: [phone], please page Team GIM 6: G/H 8th floor: [address]; Non 8th floor [address] Subjective INTERVAL HPI: No significant events overnight. Current Facility-Administered Medications Medication Dose Route Frequency NaCl 0.9% iv flush bag 20 mL INTRAVENOUS PRN carvedilol 12.5 mg tab(s) (COREG) 12.5 mg ORAL BID labetalol 10 mg injection syringe (NORMODYNE) 10 mg INTRAVENOUS q 4 H PRN melatonin 3 mg tab(s) 3 mg ORAL DAILY (8 PM) acetaminophen 650 mg tab(s) (TYLENOL) 650 mg ORAL q 6 H PRN ondansetron (PF) 4 mg injection (ZOFRAN) 4 mg INTRAVENOUS q 6 H PRN morphine 4 mg injection 4 mg INTRAVENOUS q 4 H PRN prochlorperazine 10 mg injection (COMPAZINE) 10 mg INTRAVENOUS q 6 H PRN amLODIPine 10 mg tab(s) (NORVASC) 10 mg ORAL DAILY tacrolimus IR 2 mg cap(s) (PROGRAF) 2 mg ORAL q 12 H 6a/6p polyethylene glycol 3350 17 g packet (MIRALAX, GLYCOLAX) 17 g ORAL DAILY senna 8.6 mg tab(s) (SENOKOT) 1 tablet ORAL BID pantoprazole 40 mg injection (PROTONIX) 40 mg INTRAVENOUS BID AC (0600/1600) potassium chloride 40 mEq oral powder (KLOR-CON) 40 mEq ORAL BID Objective PHYSICAL EXAM: BP 155/98 Pulse 86 Temp (Src) 98.1 (Oral) Resp 19 Ht 6' 0 (1.83m) Wt 217 lb 2.5 oz (98.5kg) SpO2 96% BMI 29.44 kg/(m2). O2 Therapy: Room Air Physical Exam Performed AAANDOx3, well nourished appearance, no distress, cooperative Normocephalic. EOMI. MMM Lungs clear, no w/r/r RRR, nl S1 AND S2; no r/m/g Abdomen soft, non-tender, BS normal, No masses Normal affect. CN 2-12 intact. Grossly intact sensation. Normal strength in UANDLE Lines, Drains, and Airways Line Duration Peripheral 08/31/22 1736 Left Antecubital 18 Gauge 2 days Reviewed lines and needs to be continued: REASONS: Intravenous fluids DATA: Diagnostic tests reviewed for today's visit: Most recent labs Most recent imaging Most recent EKG Assessment/Plan Problem List Acute pancreatitis without infection or necrosis POA: Yes Liver transplant recipient (HCC) POA: Yes Immunosuppressive management encounter following liver transplant (HCC) POA: Yes Acute pancreatitis POA: Yes YOAN (acute kidney injury) (HCC) POA: Yes Primary hypertension POA: Yes HOSPITAL COURSE: Chuckie Villalta is a 36yo male w etoh cirrhosis s/p LDLT w R lobe 06/2019 c/b PV steal vial port-systemic shunt with moderate allograft rejection s/p exploratory laparotomy, ligation of portosystemic shunt on 07/21 c/b biliary anastomotic stricture requiring bilary stenting and sphincterotomy (last 07/16/20), recent admission for pancreatitis in the setting of (+) PETH test in November. Pt presented to ED with abdominal pain found to have acute appendicitis Problem List Principal Problem: Acute pancreatitis without infection or necrosis POA: Yes Active Problems: Liver transplant recipient (HCC) POA: Yes Immunosuppressive management encounter following liver transplant (HCC) POA: Yes Acute pancreatitis POA: Yes YOAN (acute kidney injury) (HCC) POA: Yes Primary hypertension POA: Yes Resolved Problems: * No resolved hospital problems. * Acute pancreatitis Lactic acidosis BISAP score of 1 (presuming no pleural effusion) Secondary to alcohol use? Check drug screen Patient with recent necrotizing pancreatitis in October required cystogastrostomy stent placement. Triglyceride 190 last June S/p cholecystectomy Lactate improved PLAN: -Strict intake and output -Continue morphine for pain control -Utox pending -Educated the patient about importance of abstinence from alcohol Elevated bilirubin Transaminitis Thrombocytopenia Less likely rejection Secondary to dehydration and pancreatitis? Fraction bili: predominantly conjugated US RUQ - stable mild intrahepatic biliary duct dilation similar to 10/2021 US liver vasc neg Neg EBV Igm, CMV DNA, HCV RNA Ceruloplasmin wnl Low iron 26 LDH, hapto, fibrinogen, coag panel unremarkable -s/p 2u platelet -Hepatology consulted, appreciate rec: hepatitis viral panel, Hep E AND D ab, EBV/VZV IgM, LENNY, AMA, ASMA, A1AT, PETH -hematology consulted, appreciate rec: - cu, folate, vit b6, zn, hiv, vit B12 -IR liver biopsy Acute kidney injury, resolved Likely secondary to pancreatitis and dehydration -Check UA and urine electrolytes Liver transplant -Check tacrolimus level -cont tacro Hypertensive urgency Patient was not taking his p.o. medications, worsened by acute distress -P.o. 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 OLT (07/11/19; on Tacro) c/b PV steal via portosystemic shunt (s/p ligation 06/2019 with moderate acute allograft rejection (s/p liver biopsy 2 weeks post transplant; no evidence of rejection on liver biopsy 2019) as well as multiple anastamotic biliary strictures requiring biliary dilation and stenting (01/2020, 04/2020 and most recently 06/2020) as well as h/o choledocholithiasis s/p removal (06/2020 ERCP) and necrotizing pancreatitis c/b WON s/p cystgastrostomy (10/2021) in the setting of EtOH use (last drink 1 week prior to admission) who was admitted on 08/31 d/t abdominal pain suspected to be 2/2 EtOH-related pancreatitis. Noted to have new elevated liver function tests for which the hepatology team was consulted. The etiology of the mixed liver injury is unclear at this time. Given the acute elevation with subsequent downtrend suspect that it may be 2/2 ischemia in the setting of acute lowering BP with use of anti-hypertensives since admission. Less likely to be secondary to acute infectious etiology or graft rejection (given tacro troughs have been therapeutic) given acute elevation but given prior evidence of cellular rejection (s/p biopsy 2019 x 4) would proceed with perc liver biopsy. Completed labs: EBV VCA IgM negative HCV RNA neg CMV DNA neg Ceruloplasmin 17 Iron panel s/f iron deficiency Pending labs: Acute hepatitis panel Remote hepatitis panel Hep A Ab IgM Anti-HEV Hep delta Ab EBV IgM VZV IgM LENNY AMA ASMA A1AT phenotype Plan: - Recommend percutaneous liver biopsy - Please check daily tacro troughs. Continue tacrolimus 2mg/2mg. Please check tacro troughs 60min before Tacro AM dose. Please monitor RFP and hepatic function panel. - OK to discontinue TMP-SMX - F/u remainder of labwork - Maintain stable hemodynamic status; would transfuse to maintain Hgb>7, Plt>50K - Continue to monitor CBC, CMP, and INR daily - EGD with AXIOS stent removal per primary team to coordinate - pancytopenia evaluation per primary team Jerri Camacho MD Gastroenterology AND Hepatology Fellow Pager [phone] D/w staff Dr. Crawford.[facility]02-07-2023 NoteHNO ID: [id number] Author: Minna Dwyer MD Service: General Internal Medicine Author Type: Physician Type: Progress Notes Filed: 09/02/2022 2:24 PM Note Text: DEPARTMENT OF HOSPITAL MEDICINE PROGRESS NOTE SERVICE DATE: 09/02/2022 SERVICE TIME: 2:10 PM Hospital Medicine/Primary Attending: Minna Dwyer MD NIGHT AND WEEKEND COVERAGE: [facility] COVERAGE: Days: [phone], please page Minna Dwyer for patient issues. Nights: [phone], please page Team GIM 6: G/H 8th floor: [address]; Non 8th floor [address] Subjective INTERVAL HPI: No significant events overnight. Pt reports nausea well controlled w/ anti-emetic. No new emesis episodes. Current Facility-Administered Medications Medication Dose Route Frequency NaCl 0.9% iv flush bag 20 mL INTRAVENOUS PRN carvedilol 12.5 mg tab(s) (COREG) 12.5 mg ORAL BID sulfamethoxazole-trimethoprim 800-160 mg 1 tablet (BACTRIM DS,SEPTRA DS) 1 tablet ORAL - pantoprazole 40 mg injection (PROTONIX) 40 mg INTRAVENOUS DAILY (6 AM) labetalol 10 mg injection syringe (NORMODYNE) 10 mg INTRAVENOUS q 4 H PRN melatonin 3 mg tab(s) 3 mg ORAL DAILY (8 PM) heparin 5,000 Units injection 5,000 Units SUBCUTANEOUS q 12 H NaCl 0.9% iv infusion 75 mL/hr INTRAVENOUS CONTINUOUS acetaminophen 650 mg tab(s) (TYLENOL) 650 mg ORAL q 6 H PRN ondansetron (PF) 4 mg injection (ZOFRAN) 4 mg INTRAVENOUS q 6 H PRN morphine 4 mg injection 4 mg INTRAVENOUS q 4 H PRN prochlorperazine 10 mg injection (COMPAZINE) 10 mg INTRAVENOUS q 6 H PRN amLODIPine 10 mg tab(s) (NORVASC) 10 mg ORAL DAILY tacrolimus IR 2 mg cap(s) (PROGRAF) 2 mg ORAL q 12 H 6a/6p Objective PHYSICAL EXAM: BP 129/86 Pulse 95 Temp (Src) 97.9 (Oral) Resp 18 Ht 6' 0 (1.83m) Wt 217 lb 2.5 oz (98.5kg) SpO2 97% BMI 29.44 kg/(m2). O2 Therapy: Room Air Physical Exam Performed AAANDOx3, well nourished appearance, no distress, cooperative Normocephalic. EOMI. MMM Lungs clear, no w/r/r RRR, nl S1 AND S2; no r/m/g Abdomen soft, non-tender, BS normal, No masses Normal affect. CN 2-12 intact. Grossly intact sensation. Normal strength in UANDLE Lines, Drains, and Airways Line Duration Peripheral 08/31/22 1736 Left Antecubital 18 Gauge 1 day Peripheral 08/31/22 1903 Right Antecubital 20 Gauge 1 day Reviewed lines and needs to be continued: REASONS: Intravenous fluids DATA: Diagnostic tests reviewed for today's visit: Most recent labs Most recent imaging Most recent EKG Assessment/Plan Problem List Acute pancreatitis without infection or necrosis POA: Yes Liver transplant recipient (HCC) POA: Yes Immunosuppressive management encounter following liver transplant (HCC) POA: Yes Acute pancreatitis POA: Yes YOAN (acute kidney injury) (HCC) POA: Yes Primary hypertension POA: Yes HOSPITAL COURSE: Chuckie Villalta is a 36yo male w etoh cirrhosis s/p LDLT w R lobe 06/2019 c/b PV steal vial port-systemic shunt with moderate allograft rejection s/p exploratory laparotomy, ligation of portosystemic shunt on 07/21 c/b biliary anastomotic stricture requiring bilary stenting and sphincterotomy (last 07/16/20), recent admission for pancreatitis in the setting of (+) PETH test in November. Pt presented to ED with abdominal pain found to have acute appendicitis Problem List Principal Problem: Acute pancreatitis without infection or necrosis POA: Yes Active Problems: Liver transplant recipient (HCC) POA: Yes Immunosuppressive management encounter following liver transplant (HCC) POA: Yes Acute pancreatitis POA: Yes YOAN (acute kidney injury) (HCC) POA: Yes Primary hypertension POA: Yes Resolved Problems: * No resolved hospital problems. * Acute pancreatitis Lactic acidosis BISAP score of 1 (presuming no pleural effusion) Secondary to alcohol use? Check drug screen Patient with recent necrotizing pancreatitis in October required cystogastrostomy stent placement. Triglyceride 190 last June S/p cholecystectomy Lactate improved PLAN: -N.p.o. -Continue IV fluids -Strict intake and output -Continue morphine for pain control -Utox pending -Educated the patient about importance of abstinence from alcohol Elevated bilirubin Transaminitis Less likely rejection Secondary to dehydration and pancreatitis? Fraction bili: predominantly conjugated US RUQ - stable mild intrahepatic biliary duct dilation similar to 10/2021 -coag pending -acute hep viral panel, hep E AND D -HSV, CMV, EBV -peripheral smear, coag panel -PETH -Fibrinogen -US liver vascular -Hepatology consulted, appreciate rec Acute kidney injury, improving Likely secondary to pancreatitis and dehydration -Check UA and urine electrolytes Liver transplant -Check tacrolimus level -cont tacro Hypertensive urgency Patient was not taking his p.o. medications, worsened by acute distress -P.o. medications -IV labetalol as needed Leukocytosis, resolved Sepsis ruled out Lactic (more content not included)...[facility]02-06-2023 Note HNO ID: [id number] Author: Minna Dwyer MD Service: General Internal Medicine Author Type: Physician Type: Progress Notes Filed: 09/01/2022 2:25 PM Note Text: DEPARTMENT OF HOSPITAL MEDICINE PROGRESS NOTE SERVICE DATE: 09/01/2022 SERVICE TIME: 1:58 PM Hospital Medicine/Primary Attending: Minna Dwyer MD NIGHT AND WEEKEND COVERAGE: [facility] COVERAGE: Days: [phone], please page Minna Dwyer for patient issues. Nights: [phone], please page Team GIM 6: G/H 8th floor: [address]; Non 8th floor [address] Subjective INTERVAL HPI: No significant events overnight. Pt reports emesis episode this am. Zofran is effective, was able to take meds and keep them down. Current Facility-Administered Medications Medication Dose Route Frequency iv contrast (radiology procedure) INTRAVENOUS DIRECTED PRN NaCl 0.9% iv flush bag 20 mL INTRAVENOUS PRN carvedilol 12.5 mg tab(s) (COREG) 12.5 mg ORAL BID sulfamethoxazole-trimethoprim 800-160 mg 1 tablet (BACTRIM DS,SEPTRA DS) 1 tablet ORAL - pantoprazole 40 mg injection (PROTONIX) 40 mg INTRAVENOUS DAILY (6 AM) labetalol 10 mg injection syringe (NORMODYNE) 10 mg INTRAVENOUS q 4 H PRN melatonin 3 mg tab(s) 3 mg ORAL DAILY (8 PM) heparin 5,000 Units injection 5,000 Units SUBCUTANEOUS q 12 H NaCl 0.9% iv infusion 150 mL/hr INTRAVENOUS CONTINUOUS acetaminophen 650 mg tab(s) (TYLENOL) 650 mg ORAL q 6 H PRN ondansetron (PF) 4 mg injection (ZOFRAN) 4 mg INTRAVENOUS q 6 H PRN morphine 4 mg injection 4 mg INTRAVENOUS q 4 H PRN prochlorperazine 10 mg injection (COMPAZINE) 10 mg INTRAVENOUS q 6 H PRN amLODIPine 10 mg tab(s) (NORVASC) 10 mg ORAL DAILY tacrolimus 1 mg in NaCl 0.9% 276 mL (PROGRAF) 1 mg INTRAVENOUS q 24 HR Objective PHYSICAL EXAM: BP 148/102 Pulse 96 Temp (Src) 97.7 (Oral) Resp 20 Ht 6' 0 (1.83m) Wt 217 lb 2.5 oz (98.5kg) SpO2 96% BMI 29.44 kg/(m2). O2 Therapy: Room Air Physical Exam Performed AAANDOx3, well nourished appearance, no distress, cooperative Normocephalic. EOMI. MMM Lungs clear, no w/r/r RRR, nl S1 AND S2; no r/m/g Abdomen soft, non-tender, BS normal, No masses Normal affect. CN 2-12 intact. Grossly intact sensation. Normal strength in UANDLE Lines, Drains, and Airways Line Duration Peripheral 08/31/22 1736 Left Antecubital 18 Gauge <1 day Peripheral 08/31/22 1903 Right Antecubital 20 Gauge <1 day Reviewed lines and needs to be continued: REASONS: Intravenous fluids DATA: Diagnostic tests reviewed for today's visit: Most recent labs Most recent imaging Most recent EKG Assessment/Plan Problem List Acute pancreatitis without infection or necrosis POA: Yes Liver transplant recipient (HCC) POA: Yes Immunosuppressive management encounter following liver transplant (HCC) POA: Yes Acute pancreatitis POA: Yes YOAN (acute kidney injury) (HCC) POA: Yes Primary hypertension POA: Yes HOSPITAL COURSE: Chuckie Villalta is a 36yo male w etoh cirrhosis s/p LDLT w R lobe 06/2019 c/b PV steal vial port-systemic shunt with moderate allograft rejection s/p exploratory laparotomy, ligation of portosystemic shunt on 07/21 c/b biliary anastomotic stricture requiring bilary stenting and sphincterotomy (last 07/16/20), recent admission for pancreatitis in the setting of (+) PETH test in November. Pt presented to ED with abdominal pain found to have acute appendicitis Problem List Principal Problem: Acute pancreatitis without infection or necrosis POA: Yes Active Problems: Liver transplant recipient (HCC) POA: Yes Immunosuppressive management encounter following liver transplant (HCC) POA: Yes Acute pancreatitis POA: Yes YOAN (acute kidney injury) (HCC) POA: Yes Primary hypertension POA: Yes Resolved Problems: * No resolved hospital problems. * Acute pancreatitis Lactic acidosis BISAP score of 1 (presuming no pleural effusion) Secondary to alcohol use? Check drug screen Patient with recent necrotizing pancreatitis in October required cystogastrostomy stent placement. Triglyceride 190 last June S/p cholecystectomy Lactate improved PLAN: -N.p.o. -Continue IV fluids 150 cc/h -Strict intake and output -Continue morphine for pain control -Utox pending -Educated the patient about importance of abstinence from alcohol Elevated bilirubin With normal other LFTs and INR Less likely rejection Secondary to dehydration and pancreatitis? -Fraction bili pending -US RUQ pending Acute kidney injury Likely secondary to pancreatitis and dehydration -Check UA and urine electrolytes Liver transplant -Check tacrolimus level -switched tacrolimus iv to po Hypertensive urgency Patient was not taking his p.o. medications, worsened by acute distress -P.o. medications -IV labetalol as needed Leukocytosis Sepsis ruled out Lactic acid quickly improved Likely reactive from pancreatitis w/ dehydration Reactive? -Monitor off abx -Follow blood cultures -U (more content not included)...[facility]02-06-2023 NoteHNO ID: [id number] Author: RT Leonora(R) Service: ? Author Type: Technologist Type: Progress Notes Filed: 09/01/2022 12:56 AM Note Text: Radiology Service Progress Note PATIENT NAME: Chuckie Villalta DATE OF SERVICE: September 01, 2022 TIME: 12:56 AM PATIENT IDENTITY VERIFICATION COMPLETED USING TWO (2) IDENTIFIERS: Name and Date of confirmed by patient verbally. FALL SCREENING: Has the patient had 2 falls in the last year or 1 fall with injury or currently using an Ambulatory Assistive Device (Walker, Cane, Wheelchair, Crutches, etc.)?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 Patient should abstain from alcohol. 3. Patient should continue to attend minimum of weekly twelve step meetings and identify a sponsor. Sample for toxicology screening to be collected. Standing orders filed. Toxicology test results pending at the time of assessment. Patient instructed on collection procedure. Patient's Response to Recommendations: Patient agreed to all treatment recommendations Formulation of Suicide Risk: Patient does not present with SI at this time. SIGNATURE: SHAQ Chua DATE: 02/25/2022 I spent a total of sisty minutes on the date of the service which included [id number] patient care and completing clinical documentation. documented in this encounterC[facility] History of Present illness Narrative* SHAQ Jaimes - 02/20/2022 1:21 PM EDT SW contacted by patient via phone. He was having difficulty logging in for virtual session and clarifies he is available to meet. SW conducted follow up visit via phone. Patient reports that he did relapse on alcohol in December 2021. He is not able to identify any specific trigger that led to relapse.He reports frustration and guilt with himself that he was unable to stay sober. He reports his wifeis aware he is drinking and it has caused major problems in their relationship. Patient reports he still has all over body pain from surgery and chronic pain in his neck. 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 SW and patient discussed treatment options. Patient states he went through IOP [facility] and did not have a good experience. SW recommended [facility] to patient and he is agreeable to trying this program. DEONDRE provided contact info and also emailed [facility] with this referral. Patient states he will also continue to go to his weekly home groupAA session every Thur at 8pm in [facility]. DEONDRE encouraged clt to reach out with any further questions or concerns. LAURA Jaimes Liver Transplant Social Work documented in this encounterCrystal [facility]07-28-2022 History of Present illness Narrative* SHAQ Jaimes - 02/20/2022 10:05 AM EDT Patient scheduled for virtual follow up visit with DEONDRE today at 1pm. Patient left 2 messages via ContextPlane cancelling appointment due to time conflict. LAURA Jaimes Liver Transplant Social Work documented in this encounterCrystal [facility]06-03-2022 History of Present illness Narrative* RT Theodore(Galo) - 12/27/2021 1:00 PM EDT Radiology Service Progress Note PATIENT NAME: Chuckie Villalta DATE OF SERVICE: December 27, 2021 TIME: 1:20 PM PATIENT IDENTITY VERIFICATION COMPLETED USING TWO (2) IDENTIFIERS: Name and Date of confirmedby patient verbally and Name and Date of confirmed by identification band. FALL SCREENING: Has the patient had 2 falls in the last year or 1 fall with injury or currently using an Ambulatory Assistive Device (Walker, Cane, Wheelchair, Crutches, etc.)? No PATIENT GENDER DATA: Male PATIENT RELEVANT IMPLANT DATA REVIEWED: Yes RADIOLOGY DEPARTMENT: CT; Exam(s) Completed: Abdomen PERIPHERAL IV DATA: Site assessment: Clean,Dry and Intact, Site disposition Discontinued SIGNED BY: RT Theodore(R) December 27, 2021 1:20 PM * Carlos Muñoz RN - 12/27/2021 1:00 PM EDT Radiology Service Progress Note DATE OF SERVICE: December 27, 2021 TIME: 12:54 PM PATIENT WEIGHT: 200LBS PATIENT IDENTITY VERIFICATION COMPLETED USING TWO (2) STANDARD IDENTIFIERS: Name and Date of confirmed by patient verbally. FALL SCREENING: Has the patient had 2 falls in the last year or 1 fall with injury or currently using an Ambulatory Assistive Device (Walker, Cane, Wheelchair, Crutches, etc.)? No PATIENT GENDER DATA: Male ALLERGIES: Reviewed and unchanged CONTRAST ALLERGY: No EXAM: CT -CONTRAST INDUCED NEPHROPATHY RISK FACTORS: History of Kidney surgery, Kidney neoplasm, Liver disease, and/or any recent Nephrotoxic Chemotherapy or other Nephrotoxic medications CREATININE: Creatinine Date Value Ref Range Status 11/04/2021 1.55 (H) 0.73 - 1.22 mg/dL Final 11/03/2021 2.01 (H) 0.73 - 1.22 mg/dL Final 11/02/2021 2.35 (H) 0.73 - 1.22 mg/dL Final Estimated Glomerular Filtration Rate Date Value Ref Range Status 11/04/2021 59 (L) >=60 mL/min/1.73m Final Comment: Estimated Glomerular Filtration Rate (eGFR) is calculated using the 2020 CKD-EPI creatinine equation. This equation utilizes serum creatinine, sex, and age as parameters. The creatinine assay has traceable calibration to isotope dilution- mass spectrometry. Refer to KDIGO guidelines for clinical interpretation. In patients with unstable renal function, e.g. those with acute kidney injury, the eGFRmay not accurately reflect actual GFR. eGFR- Date Value Ref Range Status 07/22/2021 41 Final P.O.C.T. RESULTS: N/A December 27, 2021 TREATMENT: No Hydration needed. IV SITE: Ambulatory: A peripheral IV was started in the Left antecubital site with a Angio cath: 20gauge. and A Saline lock was inserted per protocol IV SITE APPEARANCE: Clean,Dry and Intact SIGNATURE: Carlos Muñoz RN PATIENT NAME: Chuckie Villalta DATE: December 27, 2021 TIME: 12:54 PM documented in this encounterCrystal Clinic [facility] Center05-23-2022 History of Present illness Narrative* Aidan Larios MD - 12/16/2021 6:06 AM EDT VIRTUAL VISIT FOLLOW UP I had a virtual visit with Mr. Villalta today for follow up of 36 M, s/p LDLT using right lobe in June 2019 for alcoholic cirrhosis. 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 c/b biliary anastomotic stricture. He relapsed to start drinking. Recently admitted due to pancreatitis and pseudocyst. He underwent endoscopic cystogastrostomy. RTC for follow-up. UPDATED HISTORY: Doing well. He disclosed he was still drinking alcohol. +Back pain. PAST MEDICAL HISTORY Diagnosis Date Cirrhosis (HCC) Hemochromatosis Hepatic cirrhosis (HCC) 05/20/2019 Hypertension Hypertensive retinopathy, bilateral Long-term current use of tacrolimus Maculopathy Portal hypertension (HCC) related to cirrhosis Psoriasis Varicose vein of leg Right leg PAST SURGICAL HISTORY Procedure Laterality Date EGD 10/2017 LIVER TRANSPLANT HX NECK SURGERY HX PICC LINE INSERT/CONSULT 07/19/2019 VENOUS THROMBOSIS IMAGING VENOGRAM BILATERAL FAMILY HISTORY Problem Relation Age of Onset COPD Mother Hypertension Mother other (Other) Mother varicose veins with procedure Colon Cancer Father Social History Tobacco Use Smoking status: Never Smoker Smokeless tobacco: Former User Substance Use Topics Alcohol use: Yes Comment: occasionally Drug use: No Current Outpatient Medications Medication Sig Dispense Refill iv contrast (will be provided with radiology test) CT ABD W -Inject, intravenously, once for 1 dose.No IV access, insert saline lock prior to the beginning of sedation, infusion, injection of imagingexam. Discontinue saline lock post exam. If Pt. has a central line or IVAD, may access for administration according to line specific nursing protocol. Once exam is complete flush line and de-access according to line specific nursing protocol in the CT contrast administration guidelines link. 1 Each0 enteric contrast (will be provided with radiology test) For CT ABD W IVCON order Administer, As Directed One Time Only, via Oral, Rectal, both Oral and Rectal, Enteric Tube, Stoma or Indwelling Catheter, Enteric Contrast as designated per enteric contrast guidelines 1 Each 0 enoxaparin (LOVENOX) 40 mg/0.4 mL Inject 0.4 mL subcutaneously every 12 hours. 24 mL 2 tacrolimus IR (PROGRAF) 1 mg capsule Please take 2mg in the morning and 1mg in the evening for a total of 3mg a day. 120 capsule 3 sulfamethoxazole-trimethoprim (BACTRIM DS,SEPTRA DS) 800-160 mg per tablet TAKE 1 TABLET BY MOUTH EVERY THURSDAY,THURSDAY,THURSDAY. 13 tablet 11 carvedilol (COREG) 12.5 mg tablet Take 1 tablet by mouth twice daily. pantoprazole DR (PROTONIX) 40 mg tablet Take 1 tablet by mouth DAILY (6 AM). 30 tablet 0 magnesium oxide (MAG-OX) 400 mg (241.3 mg magnesium) tablet Take 1 tablet by mouth twice daily. 60 tablet 0 amLODIPine (NORVASC) 10 mg tablet TAKE 1 TABLET BY MOUTH ONCE DAILY. 30 tablet 5 No current facility-administered medications for this visit. ALLERGIES Allergen Reactions Penicillins Unknown Skin test positive 09/01/18 Midazolam Other: See Comments Seasonal Allergies Unknown REVIEW OF SYSTEMS: PAIN ASSESSMENT: CURRENTLY HAVING PAIN; see HPI GENERAL: No weight loss, malaise or fevers RESPIRATORY: Negative for cough, hemoptysis, wheezing, COPD, dyspnea or shortness of breath CARDIOVASCULAR: Negative for chest pain, leg swelling, hypertension, CHF or palpitations GI: No nausea, vomiting, or diarrhea : Not reviewed PHYSICAL FINDINGS OF NOTE: General Normal, healthy, cooperative, in no acute distress Able to interact verbally by video conference Psych ORIENTATION: normal to time place, person and situation Mood/Affect: AFFECT AND MOOD: Normal Head/Neuro Normal size and shape Facial appearance normal Pulmonary respiratory effort normal Cardiovascular patient describes extremities normal, warm, no cyanosis,no clubbing and no edema Abdominal Not performed Skin abnormal lesions not visualized Motor patient seen sitting with Normal appearing strength and coordination REVIEWED ITEMS No labs since discharge. RECOMMENDATION: Long discussion regarding compliance and alcohol intake. He agreed to see SW to discuss rehab. No change in IS. I spent more than 20 minutes [id number]-[id number] with the patient and over half the time was devoted to counseling and/or coordination of care. Aidan Larios MD documented in this encounterCrystal Clinic [facility] Center04-15-2022 Miscellaneous Notes* Telephone Encounter - Nadja Spencer RN - 11/08/2021 3:18 PM EDT Patient returned my text and said that he will be unavailable on 11/12, as he and his family just arrived at [facility]. He will be available for virtual visit on 11/19. I notified scheduling. Nadja Spencer (Cassie) RN, BSN [employer] Ticket Worker * Telephone Encounter - Nadja Spencer RN - 11/08/2021 2:23 PM EDT I called and LMOM and sent patient a text to follow up with him from [facility]. I let him know that I'd be setting him up for a follow up virtual visit with Dr. Larios. Encouraged him to call back with questions or as needed. Nadja Spencer RN (Cassie), BSN [employer] Ticket Worker documented in this encounterCrystal Clinic Orthopedic Center12-17-2021 NoteHNO ID: [id number] Author: Saba Hills MD Service: Hospital Medicine Author Type: Physician Type: Plan of Care Filed: 07/12/2021 9:21 AM Note Text: # Acute Pancreatitis- in setting of biliary stenosis. Resolved. Last amylase was 59 Per recommendation of GI we initially plan to transfer to [facility] for ERCP but that was later canceled since amylases returned back to normal Patient will still need ERCP as an outpatient ? # Non oliguric YOAN on CKD--baseline creatinine 1.3-1.5. Came in at 2.5. Went up to 2.8 and currently 2.67. Last tacrolimus level was 9.3. Today's labs pending still. We have restarted him at 2 mg twice a day on 07/10/2021 Urine output is normal # Hemochromatosis s/p of OLT on Prograf- Tacro re-initiated yesterday at lower dose. - continue to monitor renal function with Tacro - GI was following initially however per last note, now following peripherally. Will communicate plan with them - continue prophylactic Bactrim ? # HTN- stable, continue Amlodipine 5mg, Carvedilol 12.5mg BID. # Blurred Vision MRI was negative Will discuss with nursing coordinator We will also consult ID ? Need to look for CMV retinitis Saba Hills MD ?[facility] [id number] NoteHNO ID: [id number] Author: Maninder Aguilera DO Service: Hospital Medicine Author Type: Physician Type: Progress Notes Filed: 07/11/2021 10:58 AM Note Text: DEPARTMENT OF HOSPITAL MEDICINE PROGRESS NOTE SERVICE DATE: 07/11/2021 SERVICE TIME: 10:15 AM Hospital Medicine/Primary Attending: Maninder Aguilera DO NIGHT AND WEEKEND COVERAGE: [place] COVERAGE: Days: [phone], please contact via Reality Digital Nights: [phone], please page CC Hospitalist Night coverage pager [phone] Subjective INTERVAL HPI: pt seen at bedside. Feels that he is edematous. Tolerating diet well but gets full fast. Pain is significantly improved from admission. Current Facility-Administered Medications Medication Dose Route Frequency - NaCl 0.9% iv flush bag 20 mL INTRAVENOUS PRN - carvedilol 12.5 mg tab(s) (COREG) 12.5 mg ORAL BID - magnesium oxide 400 mg tab(s) (MAG-OX) 400 mg ORAL BID - pantoprazole DR 40 mg tab(s) (PROTONIX) 40 mg ORAL DAILY (6 AM) - sodium chloride 0.9 % (flush) 3-5 mL (BD POSIFLUSH) 3-5 mL INTRAVENOUS q 12 H - ondansetron 4 mg tab(s) (ZOFRAN) 4 mg ORAL q 6 H PRN Or - ondansetron (PF) 4 mg injection (ZOFRAN) 4 mg INTRAVENOUS q 6 H PRN - amLODIPine 5 mg tab(s) (NORVASC) 5 mg ORAL DAILY - acetaminophen 500 mg tab(s) (TYLENOL) 500 mg ORAL q 6 H PRN - senna 8.6 mg tab(s) (SENOKOT) 8.6 mg ORAL BID PRN - oxyCODONE IR 5-10 mg tab(s) (ROXICODONE) 5-10 mg ORAL q 4 H PRN - tacrolimus IR 2 mg cap(s) (PROGRAF) 2 mg ORAL q 12 H 6a/6p - [START ON 07/12/2021] sulfamethoxazole-trimethoprim 800-160 mg 1 tablet (BACTRIM DS,SEPTRA DS) 1 tablet ORAL MO-WE-FR - ursodiol 300 mg cap(s) (ACTIGALL) 300 mg ORAL TID w MEALS Objective PHYSICAL EXAM: BP 124/69 Pulse 101 Temp (Src) 99.1 (Oral) Resp 16 Ht 6' 0 (1.83m) Wt 279 lb 15.8 oz (127.0kg) SpO2 94% BMI 37.96 kg/(m2). O2 Therapy: Room Air Physical Exam Performed GENERAL: Alert, no distress, cooperative SKIN: Skin color, texture, turgor normal. No rashes or lesions. HEAD/SINUSES: No significant findings BACK: Back symmetric LUNGS: Lungs clear to auscultation, Good diaphragmatic excursion CARDIAC: Normal S1 and S2; no rubs, murmurs, or gallops ABDOMEN: epigastric tenderness on deep palpation. bowel sounds appropriately active EXTREMITIES: LE edema noted PULSES: 2+ radial Lines, Drains, and Airways Line Peripheral 07/07/21 2328 Right Forearm 22 Gauge 3 days Assessment/Plan Problem List Acute pancreatitis POA: Yes Hemochromatosis POA: Yes Liver transplant recipient (HCC) POA: Yes YOAN (acute kidney injury) (HCC) POA: Yes Hypomagnesemia POA: Yes Pancreatitis POA: Yes Primary hypertension POA: Yes HOSPITAL COURSE: # Acute Pancreatitis- in setting of biliary stenosis. Resolving. Pain well controlled - diet slowly being advanced to goal - continue current pain regimen - pain management following # Non oliguric YOAN on CKD-- renal function slowly improving. UOP adequate ~1.6L in 24 hours, still net + 3L. - renal following # Hemochromatosis s/p of OLT on Prograf- Tacro re-initiated yesterday at lower dose. - continue to monitor renal function with Tacro - GI was following initially however per last note, now following peripherally. Will communicate plan with them - continue prophylactic Bactrim # HTN- stable, continue Amlodipine 5mg, Carvedilol 12.5mg BID. Medication and Non-Pharmacologic VTE Prophylaxis/Anticoagulants 07/09/21 1245 pneumatic compression stockings (ca,oh) VTE Prophylaxis: VTE prophylaxis appropriate Disposition: Home Plan of care discussed with Provider, RN, Patient SIGNATURE: Maninder Aguilera DO PATIENT NAME: Chuckie Villalta DATE: July 11, 2021 TIME: 10:15 AMCache Valley [id number] NoteHNO ID: [id number] Author: Saba Hills MD Service: Hospital Medicine Author Type: Physician Type: Progress Notes Filed: 07/11/2021 5:13 AM Note Text: HOSPITAL MEDICINE PROGRESS NOTE Saba Hills MD NIGHT AND WEEKEND COVERAGE: [place] COVERAGE: Days: [phone], please contact via Spiced Bits SecureXueda Education Groupsage Nights: [phone], please page CC Hospitalist Night coverage pager [phone] Subjective HPI: Interval Events: has pain abdomen but improved overall. Tolerating po well. Denies N/vomiting. No new chills or fever. Objective BP 133/86 Pulse 101 Temp (Src) 97.9 (Oral) Resp 18 Ht 6' 0 (1.83m) Wt 279 lb 15.8 oz (127.0kg) SpO2 97% BMI 37.96 kg/(m2). O2 Therapy: Room Air Physical Exam Performed: GENERAL: : alert, oriented, no acute distress HEART: S1S2 regular. LUNGS: : clear b/l ABDOMEN: : Soft, nontender, bowel sounds + EXTREMITY: : No ankle edema. CONCRETER: grossly normal. No focal deficit. Lines, Drains, and Airways Line Peripheral 07/07/21 2328 Right Forearm 22 Gauge 2 days Reviewed lines and needs to be continued: REASONS: Intravenous fluids Medications: Reviewed Diagnostic tests reviewed: Most recent imaging Recent Labs 07/09/21 0547 07/08/21 0548 07/07/21 0640 07/06/21 0610 WBC 9.16 7.82 9.23 9.13 RBC 2.60* 2.54* 2.90* 3.26* HB 9.1* 9.0* 10.5* 11.4* HCT 26.3* 26.0* 29.1* 30.9* PLT 59* 39* 45* 63* MCV 101.2* 102.4* 100.3* 94.8 MCH 35.0* 35.4* 36.2* 35.0* MPV 12.3 12.3 11.8 11.3 ABSNEUT 7.42 6.26 -- 8.13* ANCSEGBAND 7.42 6.26 -- 8.13 NEUTP 81.0 80.0 -- 89.0 LYMPHP 4.0 3.0 -- 3.0 MONOP 14.0 16.0 -- 7.0 EODINP 0.0 0.0 -- 1.0 Recent Labs 07/10/21 0524 07/09/21 0547 07/08/21 0548 07/07/21 0640 GLUC 126* 174* 107* 110* NA 137 137 132* 132* K 3.5* 3.8 3.9 4.1 CHLOR 106* 109* 106* 105 CO2 21* 20* 18* 18* CREAT 2.80* 2.83* 2.34* 1.63* BUN 13 16 17 15 ANION 10 8* 8* 9 CA 8.5 8.0* 8.0* 7.9* TPROT -- 5.1* 4.9* 5.0* ALB -- 2.9* 2.9* 3.0* TBILI -- 1.0 1.6* 4.9* ALKPHOS -- 63 60 70 AST -- 17 38 131* ALT -- 16 22 41 Most recent labs 1. Acute pancreatitis-resolved Amylase within normal limits at this time LFTs have normalized Patient reports great improvement in pain symptoms Continue to advance diet slowly Appreciate input from pain management and GI GI is planning ERCP at [facility] as outpatient 2. History of hemochromatosis and cirrhosis leading to liver transplant 3. Acute kidney injury Appreciate input from nephrology Currently off IV fluids Continue to hold Vanco and tacrolimus for now Continue hemodynamic optimization No mention of discharge at this time Hypertension 07/10/21 0438 07/10/21 0828 07/10/21 1239 07/10/21 1544 BP: 136/89 133/86 125/69 139/81 Continue with Coreg and amlodipine Hypomagnesemia Resolved History of OLT Based on Dr. Gandara's note I have resumed tacrolimus at a lower dose. Dosing upon discharge will be decided by him are we may have to contact transplant team. ? Medication and Non-Pharmacologic VTE Prophylaxis/Anticoagulants 07/09/21 1245 pneumatic compression stockings (fl,oh) VTE Prophylaxis: VTE prophylaxis appropriate. Advised to ambulate as tolerated. Plan of care discussed with: Patient, Family/Significant Other: at bedside, RN and Consultants: Neurology, Nephro, GI Saba Hills MD 07/10/2021 11:00 AM Please use Secure messaging to contact me between 7:30 AM and 4:30 PM Chuckie Villalta [id number] NoteHNO ID: [id number] Author: Jolynn Jaquez MD Service: Hospital Medicine Author Type: Physician Type: Progress Notes Filed: 07/09/2021 6:55 PM Note Text: HOSPITAL MEDICINE PROGRESS NOTE NIGHT AND WEEKEND COVERAGE: [place] COVERAGE: Days: [phone], please contact via Reality Digital Nights: [phone], please page CC Hospitalist Night coverage pager [phone] Hospital Medicine/Primary Attending: Jolynn Jaquez MD Subjective HPI: Interval Events: has pain abdomen but improved overall. Tolerating po well. Denies N/vomiting. No new chills or fever. Objective BP 141/88 Pulse 101 Temp (Src) 97.3 (Oral) Resp 16 Ht 6' 0 (1.83m) Wt 275 lb 2.2 oz (124.8kg) SpO2 97% BMI 37.31 kg/(m2). O2 Therapy: Room Air Physical Exam Performed: GENERAL: : alert, oriented, no acute distress HEART: S1S2 regular. LUNGS: : clear b/l ABDOMEN: : Soft, nontender, bowel sounds + EXTREMITY: : No ankle edema. CONCRETER: grossly normal. No focal deficit. Lines, Drains, and Airways Line Peripheral 07/07/21 2328 Right Forearm 22 Gauge 1 day Reviewed lines and needs to be continued: REASONS: Intravenous fluids Medications: Reviewed Diagnostic tests reviewed: Most recent imaging Most recent labs Assessment AND Plan Active Hospital Problems as of 07/09/2021 Noted - Resolved POA Hospital * (Principal) Acute pancreatitis 07/05/2021 - Present Yes Hemochromatosis 03/18/2018 - Present Yes Liver transplant recipient (HCC) 07/10/2019 - Present Yes YOAN (acute kidney injury) (HCC) 07/05/2021 - Present Yes Hypomagnesemia 07/05/2021 - Present Yes Pancreatitis 07/05/2021 - Present Yes Primary hypertension 07/05/2021 - Present Yes CT abd on 07/05/21 showed- Extensive pancreatitis with inflammatory changes surrounding the transverse colon, spleen and retroperitoneum. ?Small volume ascites is present. ?Extent of pancreatic necrosis cannot be assessed on a noncontrast examination. ? Had leucocytosis initially, was started on antibiotics. Vanco, cipro, flagyl. GI consulted. Leucocytosis resolved (also, improving thrombocytopenia ). LFTs improved. Afebrile. No growth on blood cultures so far. USG right upper quadrant done to r/o obstruction. Advance diet today to full liquid, advance tomorrow as tolerated. Appreciate Pain management input. Discussed with GI regarding scheduling of ERCP outpatient. Patient to be scheduled at [facility]. Consider starting heparin subq for prophylaxis tomorrow if platelet count continues to improve. ? ? YOAN on CKD In setting of acute sickness, elevated Vanco, Prograf level. Antibiotics d/simon. Resume Prograf when level WNL after discussing with GI. D/c IV fluids as patient tolerating po. Strict I/Os. Urine studies Monitor CMP Avoid nephrotoxic medications. appreciate Nephrology consult. ? Patient c/o intermittent mild blurry vision (no diplopia or dark spots) for last 3-4 days (since he started having pain abdomen). improved somewhat. No focal deficit. Discussed possible etiologies and plan of care including need of Ophthalmo follow up. Wean off pain medications gradually. MRI brain done last night showed no acute process. Discussed with Neuro healthcare applications analyst. Plan to follow up outpatient with Neuro, and consider outpatient MRI brain with contrast if needed. ? Medication and Non-Pharmacologic VTE Prophylaxis/Anticoagulants 07/09/21 1245 pneumatic compression stockings (ca,oh) VTE Prophylaxis: VTE prophylaxis appropriate. Advised to ambulate as tolerated. Plan of care discussed with: Patient, Family/Significant Other: at bedside, RN and Consultants: Neurology, Nephro, GI SIGNATURE: Jolynn Jaquez MD PATIENT NAME: Chuckie Villalta DATE: July 09, 2021 TIME: 4:16 [facility] [id number] NoteHNO ID: [id number] Author: Tani Woodward MD, PhD Service: Neurology General Author Type: Physician Type: Plan of Care Filed: 07/09/2021 3:20 PM Note Text: Discussed with primary team 35 year old asked to see for blurred vision, admitted with pancreatitis. MRI nael wo contrast completed and without acute process. At this point reviewed and primary okay with outpatient follow up and determination of need for MRI brain w contrast. Will arrange for outpatient follow up. Tani Woodward MD, PhD July 09, 2021 3:20 [facility] [id number] NoteHNO ID: [id number] Author: Isa San RDMS, ARLENE Service: Radiology Author Type: Workers Compensation Coordinator Type: Progress Notes Filed: 07/08/2021 12:04 PM Note Text: Radiology Service Progress Note PATIENT NAME: Chuckie Villalta DATE OF SERVICE: July 08, 2021 TIME: 12:03 PM PATIENT IDENTITY VERIFICATION COMPLETED USING TWO (2) IDENTIFIERS: Name and Date of confirmed by patient verbally and Name and Date of confirmed by identification band. FALL SCREENING: Has the patient had 2 falls in the last year or 1 fall with injury or currently using an Ambulatory Assistive Device (Walker, Cane, Wheelchair, Crutches, etc.)? Inpatient: Screened on floor PATIENT GENDER DATA: Male PATIENT RELEVANT IMPLANT DATA REVIEWED: Not Applicable RADIOLOGY DEPARTMENT: Ultrasound PERIPHERAL IV DATA: Not applicable SIGNED BY: Isa San RDMS, ARLENE July 08, 2021 12:03 [facility] [id number] NoteHNO ID: [id number] Author: Jolynn Jaquez MD Service: Hospital Medicine Author Type: Physician Type: Progress Notes Filed: 07/08/2021 11:56 AM Note Text: HOSPITAL MEDICINE PROGRESS NOTE NIGHT AND WEEKEND COVERAGE: ERICK COVERAGE: Days: [phone], please contact via Sp[employer] Nights: [phone], please page CC Hospitalist Night coverage pager [phone] Hospital Medicine/Primary Attending: Jolynn Jaquez MD Subjective HPI: Interval Events: improved pain abdomen. No nausea/vomiting/chills or fever. Wants to eat now. Objective BP 107/59 Pulse 105 Temp (Src) 98.2 (Oral) Resp 16 Ht 6' 0 (1.83m) Wt 258 lb 6.1 oz (117.2kg) SpO2 96% BMI 35.03 kg/(m2). O2 Therapy: Room Air, Liters: 0 Physical Exam Performed: GENERAL: Alert, oriented, no acute distress. Sitting on chair comfortably HEART: S1S2 regular LUNGS: : clear b/l ABDOMEN: : Soft, mild tenderness in EXTREMITY: : No ankle edema. CONCRETER: grossly normal. No focal deficit. Cranial nerves intact. Lines, Drains, and Airways Line Peripheral 07/05/21 1811 Right Antecubital 20 Gauge 2 days Peripheral 07/07/21 2328 Right Forearm 22 Gauge <1 day Reviewed lines and needs to be continued: REASONS: Intravenous fluids Medications: Reviewed Diagnostic tests reviewed: Most recent imaging Most recent labs Assessment AND Plan Active Hospital Problems as of 07/08/2021 Noted - Resolved [facility] (Principal) Acute pancreatitis 07/05/2021 - Present Yes Hemochromatosis 03/18/2018 - Present Yes Liver transplant recipient (HCC) 07/10/2019 - Present Yes YOAN (acute kidney injury) (HCC) 07/05/2021 - Present Yes Hypomagnesemia 07/05/2021 - Present Yes Pancreatitis 07/05/2021 - Present Yes Primary hypertension 07/05/2021 - Present Yes Medication and Non-Pharmacologic VTE Prophylaxis/Anticoagulants CT abd on 07/05/21 showed- Extensive pancreatitis with inflammatory changes surrounding the transverse colon, spleen and retroperitoneum. ?Small volume ascites is present. ?Extent of pancreatic necrosis cannot be assessed on a noncontrast examination. Had leucocytosis initially, was started on antibiotics. Vanco, cipro, flagyl Leucocytosis resolved (however, has thrombocytopenia ). LFTs improved. Afebrile. No growth on blood cultures so far. D/c antibiotics for now, and monitor closely. USG right upper quadrant to r/o obstruction. Clear liquid diet after USG Continue IV fluids Requested GI input for further recommendations (as patient here and is still waiting to be transferred to [facility]). Pain management consult. YOAN on CKD In setting of acute sickness, elevated Vanco level. D/c vanco. Hold Tacrolimus for now Check Vanco, tacrolimus levels Continue IV fluids Replete Mag IV Monitor CMP Avoid nephrotoxic medications. Nephrology consult. Patient c/o intermittent mild blurry vision (no diplopia or dark spots) for last 3-4 days (since he started having pain abdomen). improved somewhat. No focal deficit. Discussed possible etiologies and plan of care including nee of Ophthalmo follow up. Wean off pain medications gradually. Start diet. Will consider MRI brain/Neurlogy input if symptoms persist. VTE Prophylaxis: Contraindicated Low platelet count Plan of care discussed with: Patient, RN and Consultants: Nephrology, GI SIGNATURE: Jolynn Jaquez MD PATIENT NAME: Chuckie Villalta DATE: July 08, 2021 TIME: 11:30 [id number] NoteHNO ID: [id number] Author: Jolynn Jaquez MD Service: Hospital Medicine Author Type: Physician Type: Progress Notes Filed: 07/07/2021 3:10 PM Note Text: HOSPITAL MEDICINE PROGRESS NOTE NIGHT AND WEEKEND COVERAGE: ERICK COVERAGE: Days: [phone], please contact via [employer]umbt[employer]ikel[employer] Nights: [phone], please page CC Hospitalist Night coverage pager [phone] Hospital Medicine/Primary Attending: Jolynn Jaquez MD Subjective HPI: Interval Events: TONGUE LINING STITCHER and prn dilaudid helping with pain abdomen. No new chills/fever/nausea/vomiting. Objective BP 124/83 Pulse 97 Temp (Src) 97.9 (Oral) Resp 18 Ht 6' 0 (1.83m) Wt 258 lb 6.1 oz (117.2kg) SpO2 95% BMI 35.03 kg/(m2). O2 Therapy: Nasal Cannula, Liters: 2.00 Physical Exam Performed: GENERAL: : alert, oriented, seems fatigued. HEART: S1S2 regular LUNGS: : clear b/l, shallow respiratory effort ABDOMEN: : Soft, diffuse tenderness on minimal palpation EXTREMITY: : No ankle edema CONCRETER: grossly normal. No focal deficit. Lines, Drains, and Airways Line Peripheral 07/05/21 1811 Right Antecubital 20 Gauge 1 day Peripheral 07/05/21 1923 Short Left Antecubital 20 Gauge 1 day Reviewed lines and needs to be continued: REASONS: Intravenous fluids Medications: Reviewed Diagnostic tests reviewed: Most recent imaging Most recent labs Assessment AND Plan Active Hospital Problems as of 07/07/2021 Noted - Resolved [facility] * (Principal) Acute pancreatitis 07/05/2021 - Present Yes CT abd on 07/05/21 showed- Extensive pancreatitis with inflammatory changes surrounding the transverse colon, spleen and retroperitoneum. Small volume ascites is present. Extent of pancreatic necrosis cannot be assessed on a noncontrast examination. Had leucocytosis initially, started on antibiotics in ER. Continue for now Improved leucocytosis. Afebrile. Npo, IV fluids Appreciate GI input Patient waiting to be transferred to [facility]. Likely needs ERCP. Pain control with fentanyl TONGUE LINING STITCHER, dilaudid prn Close monitoring ? Hemochromatosis 03/18/2018 - Present Yes Liver transplant recipient (HCC) 07/10/2019 - Present Yes Continue Prograf YOAN (acute kidney injury) (HCC) 07/05/2021 - Present Yes Improved. Continue IV fluids. replete electrolyte as needed Avoid nephrotoxic medications Hypomagnesemia 07/05/2021 - Present Yes Pancreatitis 07/05/2021 - Present Yes Primary hypertension 07/05/2021 - Present Yes Stable BP. Continue Amlodipine, Carvedilol with hold parameters Hold ARB in view of YOAN, resume as indicated. Medication and Non-Pharmacologic VTE Prophylaxis/Anticoagulants VTE Prophylaxis: Contraindicated low platelet count Plan of care discussed with: Patient, Family/Significant Other: at bedside and RN I called transfer center to get update regarding bed availability at [facility]. No bed assigned at [facility] yet. SIGNATURE: Jolynn Jaquez MD PATIENT NAME: Chuckie Villalta DATE: July 07, 2021 TIME: 2:59 [facility] [id number] NoteHNO ID: [id number] Author: Roma Horan MD Service: Hospital Medicine Author Type: Physician Type: Progress Notes Filed: 07/06/2021 12:47 PM Note Text: DEPARTMENT OF HOSPITAL MEDICINE PROGRESS NOTE SERVICE DATE: 07/06/2021 SERVICE TIME: 12:43 PM Hospital Medicine/Primary Attending: Roma Horan MD NIGHT AND WEEKEND COVERAGE: ERICK COVERAGE: Days: [phone], please contact via Thumbtacksage Nights: [phone], please page CC Hospitalist Night coverage pager [phone] Subjective INTERVAL HPI: c/o 8/10 abdominal pain. Nausea present no emesis. No fever. Having some difficulty breathing. Current Facility-Administered Medications Medication Dose Route Frequency - NaCl 0.9% iv flush bag 20 mL INTRAVENOUS PRN - ciprofloxacin iv piggyback 400 mg in D5W 200 mL (CIPRO) 400 mg INTRAVENOUS q 12 H - metroNIDAZOLE iv piggyback 500 mg in NaCl (iso-osmotic) 100 mL (FLAGYL) 500 mg INTRAVENOUS q 8 H - vancomycin dosing and monitoring per pharmacy OTHER As Directed - carvedilol 12.5 mg tab(s) (COREG) 12.5 mg ORAL BID - valsartan 80 mg tab(s) (DIOVAN) 80 mg ORAL AT BEDTIME - tacrolimus IR 3 mg cap(s) (PROGRAF) 3 mg ORAL q 12 H 9a/9p (BMT) - magnesium oxide 400 mg tab(s) (MAG-OX) 400 mg ORAL BID - pantoprazole DR 40 mg tab(s) (PROTONIX) 40 mg ORAL DAILY (6 AM) - sodium chloride 0.9 % (flush) 3-5 mL (BD POSIFLUSH) 3-5 mL INTRAVENOUS q 12 H - NaCl 0.9% iv infusion 150 mL/hr INTRAVENOUS CONTINUOUS - ondansetron 4 mg tab(s) (ZOFRAN) 4 mg ORAL q 6 H PRN Or - ondansetron (PF) 4 mg injection (ZOFRAN) 4 mg INTRAVENOUS q 6 H PRN - fentaNYL TONGUE LINING STITCHER 20 mcg/mL in NaCl 0.9% 100 mL INTRAVENOUS CONTINUOUS - vancomycin 1.5 g in D5W 250 mL (VANCOCIN) 1.5 g INTRAVENOUS q 12 HR Objective PHYSICAL EXAM: BP 126/90 Pulse 102 Temp (Src) 98.1 (Oral) Resp 21 Ht 6' 0 (1.83m) Wt 257 lb 0.9 oz (116.6kg) SpO2 96% BMI 34.86 kg/(m2). O2 Therapy: Room Air, Liters: 2 Physical Exam Performed GENERAL: Alert, Moderate Distress, moaning at times SKIN: Skin color, texture, turgor normal. No rashes or lesions. EYES: PERRLA, conjunctiva pink NOSE: no rhinorhea NECK: No jugulovenous distention, No carotid bruits, Carotid pulse normal contour, Supple, No thyromegaly BACK: Back symmetric, Normal curvature, ROM normal LUNGS: Lungs clear to auscultation, Good diaphragmatic excursion CARDIAC: Normal S1 and S2; no rubs, murmurs, or gallops ABDOMEN: obese, mild to moderate tenderness epigastric area and RUQ, Bowel sounds present EXTREMITIES: Extremities normal, no deformities, edema, clubbing or skin discoloration. Good capillary refill. NEURO: Grossly normal cognition, motor function, and cranial nerves III-XII PULSES: 2+ radial, 2+ dorsalis pedis, 2+ carotid The remainder of the physical exam is noncontribu Lines, Drains, and Airways Line Peripheral 07/05/21 1811 Right Antecubital 20 Gauge <1 day Peripheral 07/05/21 1923 Short Left Antecubital 20 Gauge <1 day Reviewed lines and needs to be continued: REASONS: Intravenous fluids and Intravenous antibiotics DATA: Diagnostic tests reviewed for today's visit: Most recent labs Most recent imaging Assessment/Plan Problem List Acute pancreatitis POA: Yes Hemochromatosis POA: Yes Liver transplant recipient (HCC) POA: Yes YOAN (acute kidney injury) (HCC) POA: Yes Hypomagnesemia POA: Yes Pancreatitis POA: Yes Primary hypertension POA: Yes Acute pancreatitis Assessment AND Plan: CT: Extensive pancreatitis with inflammatory changes surrounding the transverse colon, spleen and retroperitoneum. ?Small volume ascites is present. ?Extent of pancreatic necrosis cannot be assessed on a noncontrast examination - Patient accepted to [facility] when bed available - IV fluids, NPO except meds - symptom management - Vanco, cipro, flagyl started in ED--c/w same for now. Leukocytosis resolved today -improving lipase - Consult GI, pending [facility] transfer, appreciate recs. May need ERCP -called transfer center again today--pt is level 1 transfer--will get transferred as soon as bed is available. Active Problems: YOAN (acute kidney injury) (HCC) Assessment AND Plan: creat 2.5, previously normal. Suspect due to N/V/D from above - IV fluids - recheck labs in am ? Hypomagnesemia Assessment AND Plan: 0.8 in ED - given IV mag in ED - repeat level in am - resume po mag in am if able ? Hemochromatosis Liver transplant recipient (HCC) Assessment AND Plan: seen at [facility], admits some noncompliance with medications as of late, and rare alcohol use - transfer to [facility] for continued care when able - continue prograf. Will hold Actigall while NPO ? Primary hypertension Assessment AND Plan: elevated in ED, likely due to pain and missed doses - resume po antihypertensives as able - manage pain as able Medication and Non-Pharmacologic VTE Prophylaxis/Anticoagulants VTE Prophylaxis: VTE prophylaxis appr (more content not included)...[facility] [id number] NoteHNO ID: [id number] Author: Interface Note Service: ? Author Type: ? Type: Progress Notes Filed: 07/06/2021 2:53 AM Note Text: Epic Scheduled Downtime: 07/06/2021 1:00:00 AM to 07/06/2021 2:38:59 AMCache Valley [id number] NoteHNO ID: [id number] Author: Lisseth Raymond APRN.[facility] Service: Hospital Medicine Author Type: Nurse Practitioner Type: Plan of Care Filed: 07/05/2021 11:59 PM Note Text: Patient's pain not being controlled with prn dilaudid. Per Up to Date, TONGUE LINING STITCHER recommended and fentanyl the safest drug to use for this purpose I discussed case with Dr Shook, I also discussed with the NOM and the pharmacist. A TONGUE LINING STITCHER pump ordered. Lisseth Raymond APRN.[facility] Medical [id number] NoteHNO ID: [id number] Author: RT Alok(R) Service: ? Author Type: Technologist Type: Progress Notes Filed: 07/05/2021 11:39 PM Note Text: Radiology Service Progress Note PATIENT NAME: Chuckie Villalta DATE OF SERVICE: July 05, 2021 TIME: 11:38 PM PATIENT IDENTITY VERIFICATION COMPLETED USING TWO (2) IDENTIFIERS: Name and Date of confirmed by patient verbally and Name and Date of confirmed by identification band. FALL SCREENING: Has the patient had 2 falls in the last year or 1 fall with injury or currently using an Ambulatory Assistive Device (Walker, Cane, Wheelchair, Crutches, etc.)? Emergency Room Patient: Screened in ED PATIENT GENDER DATA: Male PATIENT RELEVANT IMPLANT DATA REVIEWED: Not Applicable RADIOLOGY DEPARTMENT: General X-ray: Exam(s) Completed: Chest X-Ray PERIPHERAL IV DATA: Not applicable SIGNED BY: RT Alok(R) July 05, 2021 11:38 [facility] [id number] NoteHNO ID: [id number] Author: RT Devorah(R) Service: Radiology Author Type: Technologist Type: Progress Notes Filed: 07/05/2021 7:00 PM Note Text: Radiology Service Progress Note PATIENT NAME: Chuckie Villalta DATE OF SERVICE: July 05, 2021 TIME: 7:00 PM PATIENT IDENTITY VERIFICATION COMPLETED USING TWO (2) IDENTIFIERS: Name and Date of confirmed by patient verbally and Name and Date of confirmed by identification band. FALL SCREENING: Has the patient had 2 falls in the last year or 1 fall with injury or currently using an Ambulatory Assistive Device (Walker, Cane, Wheelchair, Crutches, etc.)? Emergency Room Patient: Screened in ED PATIENT GENDER DATA: Male PATIENT RELEVANT IMPLANT DATA REVIEWED: Not Applicable RADIOLOGY DEPARTMENT: CT; Exam(s) Completed: Abdomen/Pelvis PERIPHERAL IV DATA: Not applicable SIGNED BY: Soila Parker RT(R) July 05, 2021 7:00 [facility] [id number] History of Past illness Narrative* Problem Noted Date Resolved Date Peritonitis 07/25/2019 08/03/2019 Last Assessment & Plan: Staph from OR cultures- subcutaneous abscess may have contaminated abd during surgery Plan Continue vanco through 07/26 per ID Acute abdominal pain 07/21/2019 08/03/2019 Last Assessment & Plan: Overall improving, continue po tylenol + oxycodone Respiratory failure, post-operative 07/11/2019 07/12/2019 Last Assessment & Plan: Assessment: intubated in OR for liver transplant. Airway easy, grade 1 view PLAN: - weaning vent - CXR pending. - extubate as able - once extubated hourly pulmonary hygiene Coagulopathy 07/11/2019 08/03/2019 Last Assessment & Plan: Assessment: s/p liver transplant PLAN: - Trend coags - Transfuse prn - Monitor drain output Acute pain 07/11/2019 08/03/2019 Last Assessment & Plan: Assessment: Pain improved today PLAN: D/C IV analgesia Continue to monitor closely Hepatic cirrhosis 05/20/2019 08/03/2019 documented as of this encounter (statuses as of 11/08/2021) [facility]12-[facility] History of Past illness Narrative* Problem Noted Date Resolved Date Peritonitis 07/25/2019 08/03/2019 Last Assessment & Plan: Staph from OR cultures- subcutaneous abscess may have contaminated abd during surgery Plan Continue vanco through 07/26 per ID Acute abdominal pain 07/21/2019 08/03/2019 Last Assessment & Plan: Overall improving, continue po tylenol + oxycodone Respiratory failure, post-operative 07/11/2019 07/12/2019 Last Assessment & Plan: Assessment: intubated in OR for liver transplant. Airway easy, grade 1 view PLAN: - weaning vent - CXR pending. - extubate as able - once extubated hourly pulmonary hygiene Coagulopathy 07/11/2019 08/03/2019 Last Assessment & Plan: Assessment: s/p liver transplant PLAN: - Trend coags - Transfuse prn - Monitor drain output Acute pain 07/11/2019 08/03/2019 Last Assessment & Plan: Assessment: Pain improved today PLAN: D/C IV analgesia Continue to monitor closely Hepatic cirrhosis 05/20/2019 08/03/2019 documented as of this encounter (statuses as of 12/16/2021) [facility] History of Past illness Narrative* Problem Noted Date Resolved Date Peritonitis 07/25/2019 08/03/2019 Last Assessment & Plan: Staph from OR cultures- subcutaneous abscess may have contaminated abd during surgery Plan Continue vanco through 07/26 per ID Acute abdominal pain 07/21/2019 08/03/2019 Last Assessment & Plan: Overall improving, continue po tylenol + oxycodone Respiratory failure, post-operative 07/11/2019 07/12/2019 Last Assessment & Plan: Assessment: intubated in OR for liver transplant. Airway easy, grade 1 view PLAN: - weaning vent - CXR pending. - extubate as able - once extubated hourly pulmonary hygiene Coagulopathy 07/11/2019 08/03/2019 Last Assessment & Plan: Assessment: s/p liver transplant PLAN: - Trend coags - Transfuse prn - Monitor drain output Acute pain 07/11/2019 08/03/2019 Last Assessment & Plan: Assessment: Pain improved today PLAN: D/C IV analgesia Continue to monitor closely Hepatic cirrhosis 05/20/2019 08/03/2019 documented as of this encounter (statuses as of 12/28/2021) [facility] History of Past illness Narrative* Problem Noted Date Resolved Date Peritonitis 07/25/2019 08/03/2019 Last Assessment & Plan: Staph from OR cultures- subcutaneous abscess may have contaminated abd during surgery Plan Continue vanco through 07/26 per ID Acute abdominal pain 07/21/2019 08/03/2019 Last Assessment & Plan: Overall improving, continue po tylenol + oxycodone Respiratory failure, post-operative 07/11/2019 07/12/2019 Last Assessment & Plan: Assessment: intubated in OR for liver transplant. Airway easy, grade 1 view PLAN: - weaning vent - CXR pending. - extubate as able - once extubated hourly pulmonary hygiene Coagulopathy 07/11/2019 08/03/2019 Last Assessment & Plan: Assessment: s/p liver transplant PLAN: - Trend coags - Transfuse prn - Monitor drain output Acute pain 07/11/2019 08/03/2019 Last Assessment & Plan: Assessment: Pain improved today PLAN: D/C IV analgesia Continue to monitor closely Hepatic cirrhosis 05/20/2019 08/03/2019 documented as of this encounter (statuses as of 12/28/2021) [facility] History of Past illness Narrative* Problem Noted Date Resolved Date Peritonitis 07/25/2019 08/03/2019 Last Assessment & Plan: Staph from OR cultures- subcutaneous abscess may have contaminated abd during surgery Plan Continue vanco through 07/26 per ID Acute abdominal pain 07/21/2019 08/03/2019 Last Assessment & Plan: Overall improving, continue po tylenol + oxycodone Respiratory failure, post-operative 07/11/2019 07/12/2019 Last Assessment & Plan: Assessment: intubated in OR for liver transplant. Airway easy, grade 1 view PLAN: - weaning vent - CXR pending. - extubate as able - once extubated hourly pulmonary hygiene Coagulopathy 07/11/2019 08/03/2019 Last Assessment & Plan: Assessment: s/p liver transplant PLAN: - Trend coags - Transfuse prn - Monitor drain output Acute pain 07/11/2019 08/03/2019 Last Assessment & Plan: Assessment: Pain improved today PLAN: D/C IV analgesia Continue to monitor closely Hepatic cirrhosis 05/20/2019 08/03/2019 documented as of this encounter (statuses as of 02/20/2022) [facility] History of Past illness Narrative* Problem Noted Date Resolved Date Peritonitis 07/25/2019 08/03/2019 Last Assessment & Plan: Staph from OR cultures- subcutaneous abscess may have contaminated abd during surgery Plan Continue vanco through 07/26 per ID Acute abdominal pain 07/21/2019 08/03/2019 Last Assessment & Plan: Overall improving, continue po tylenol + oxycodone Respiratory failure, post-operative 07/11/2019 07/12/2019 Last Assessment & Plan: Assessment: intubated in OR for liver transplant. Airway easy, grade 1 view PLAN: - weaning vent - CXR pending. - extubate as able - once extubated hourly pulmonary hygiene Coagulopathy 07/11/2019 08/03/2019 Last Assessment & Plan: Assessment: s/p liver transplant PLAN: - Trend coags - Transfuse prn - Monitor drain output Acute pain 07/11/2019 08/03/2019 Last Assessment & Plan: Assessment: Pain improved today PLAN: D/C IV analgesia Continue to monitor closely Hepatic cirrhosis 05/20/2019 08/03/2019 documented as of this encounter (statuses as of 02/25/2022) [facility] History of Past illness Narrative* Problem Noted Date Resolved Date Peritonitis 07/25/2019 08/03/2019 Last Assessment & Plan: Staph from OR cultures- subcutaneous abscess may have contaminated abd during surgery Plan Continue vanco through 07/26 per ID Acute abdominal pain 07/21/2019 08/03/2019 Last Assessment & Plan: Overall improving, continue po tylenol + oxycodone Respiratory failure, post-operative 07/11/2019 07/12/2019 Last Assessment & Plan: Assessment: intubated in OR for liver transplant. Airway easy, grade 1 view PLAN: - weaning vent - CXR pending. - extubate as able - once extubated hourly pulmonary hygiene Coagulopathy 07/11/2019 08/03/2019 Last Assessment & Plan: Assessment: s/p liver transplant PLAN: - Trend coags - Transfuse prn - Monitor drain output Acute pain 07/11/2019 08/03/2019 Last Assessment & Plan: Assessment: Pain improved today PLAN: D/C IV analgesia Continue to monitor closely Hepatic cirrhosis 05/20/2019 08/03/2019 documented as of this encounter (statuses as of 03/11/2022) [facility] History of Past illness Narrative* Problem Noted Date Resolved Date Peritonitis 07/25/2019 08/03/2019 Last Assessment & Plan: Staph from OR cultures- subcutaneous abscess may have contaminated abd during surgery Plan Continue vanco through 07/26 per ID Acute abdominal pain 07/21/2019 08/03/2019 Last Assessment & Plan: Overall improving, continue po tylenol + oxycodone Respiratory failure, post-operative 07/11/2019 07/12/2019 Last Assessment & Plan: Assessment: intubated in OR for liver transplant. Airway easy, grade 1 view PLAN: - weaning vent - CXR pending. - extubate as able - once extubated hourly pulmonary hygiene Coagulopathy 07/11/2019 08/03/2019 Last Assessment & Plan: Assessment: s/p liver transplant PLAN: - Trend coags - Transfuse prn - Monitor drain output Acute pain 07/11/2019 08/03/2019 Last Assessment & Plan: Assessment: Pain improved today PLAN: D/C IV analgesia Continue to monitor closely Hepatic cirrhosis 05/20/2019 08/03/2019 documented as of this encounter (statuses as of 03/24/2022) [facility] History of Past illness Narrative* Problem Noted Date Resolved Date Peritonitis 07/25/2019 08/03/2019 Last Assessment & Plan: Staph from OR cultures- subcutaneous abscess may have contaminated abd during surgery Plan Continue vanco through 07/26 per ID Acute abdominal pain 07/21/2019 08/03/2019 Last Assessment & Plan: Overall improving, continue po tylenol + oxycodone Respiratory failure, post-operative 07/11/2019 07/12/2019 Last Assessment & Plan: Assessment: intubated in OR for liver transplant. Airway easy, grade 1 view PLAN: - weaning vent - CXR pending. - extubate as able - once extubated hourly pulmonary hygiene Coagulopathy 07/11/2019 08/03/2019 Last Assessment & Plan: Assessment: s/p liver transplant PLAN: - Trend coags - Transfuse prn - Monitor drain output Acute pain 07/11/2019 08/03/2019 Last Assessment & Plan: Assessment: Pain improved today PLAN: D/C IV analgesia Continue to monitor closely Hepatic cirrhosis 05/20/2019 08/03/2019 documented as of this encounter (statuses as of 05/05/2022) [facility] History of Past illness Narrative* Problem Noted Date Resolved Date Peritonitis 07/25/2019 08/03/2019 Last Assessment & Plan: Staph from OR cultures- subcutaneous abscess may have contaminated abd during surgery Plan Continue vanco through 07/26 per ID Acute abdominal pain 07/21/2019 08/03/2019 Last Assessment & Plan: Overall improving, continue po tylenol + oxycodone Respiratory failure, post-operative 07/11/2019 07/12/2019 Last Assessment & Plan: Assessment: intubated in OR for liver transplant. Airway easy, grade 1 view PLAN: - weaning vent - CXR pending. - extubate as able - once extubated hourly pulmonary hygiene Coagulopathy 07/11/2019 08/03/2019 Last Assessment & Plan: Assessment: s/p liver transplant PLAN: - Trend coags - Transfuse prn - Monitor drain output Acute pain 07/11/2019 08/03/2019 Last Assessment & Plan: Assessment: Pain improved today PLAN: D/C IV analgesia Continue to monitor closely Hepatic cirrhosis 05/20/2019 08/03/2019 documented as of this encounter (statuses as of 07/28/2022) [facility] History of Past illness Narrative* Problem Noted Date Resolved Date Peritonitis 07/25/2019 08/03/2019 Last Assessment & Plan: Staph from OR cultures- subcutaneous abscess may have contaminated abd during surgery Plan Continue vanco through 07/26 per ID Acute abdominal pain 07/21/2019 08/03/2019 Last Assessment & Plan: Overall improving, continue po tylenol + oxycodone Respiratory failure, post-operative 07/11/2019 07/12/2019 Last Assessment & Plan: Assessment: intubated in OR for liver transplant. Airway easy, grade 1 view PLAN: - weaning vent - CXR pending. - extubate as able - once extubated hourly pulmonary hygiene Coagulopathy 07/11/2019 08/03/2019 Last Assessment & Plan: Assessment: s/p liver transplant PLAN: - Trend coags - Transfuse prn - Monitor drain output Acute pain 07/11/2019 08/03/2019 Last Assessment & Plan: Assessment: Pain improved today PLAN: D/C IV analgesia Continue to monitor closely Hepatic cirrhosis 05/20/2019 08/03/2019 documented as of this encounter (statuses as of 09/04/2022) [facility] History of Past illness Narrative* Problem Noted Date Resolved Date Peritonitis 07/25/2019 08/03/2019 Last Assessment & Plan: Staph from OR cultures- subcutaneous abscess may have contaminated abd during surgery Plan Continue vanco through 07/26 per ID Acute abdominal pain 07/21/2019 08/03/2019 Last Assessment & Plan: Overall improving, continue po tylenol + oxycodone Respiratory failure, post-operative 07/11/2019 07/12/2019 Last Assessment & Plan: Assessment: intubated in OR for liver transplant. Airway easy, grade 1 view PLAN: - weaning vent - CXR pending. - extubate as able - once extubated hourly pulmonary hygiene Coagulopathy 07/11/2019 08/03/2019 Last Assessment & Plan: Assessment: s/p liver transplant PLAN: - Trend coags - Transfuse prn - Monitor drain output Acute pain 07/11/2019 08/03/2019 Last Assessment & Plan: Assessment: Pain improved today PLAN: D/C IV analgesia Continue to monitor closely Hepatic cirrhosis 05/20/2019 08/03/2019 documented as of this encounter (statuses as of 09/04/2022) [facility] History of Past illness Narrative* Problem Noted Date Resolved Date Peritonitis 07/25/2019 08/03/2019 Last Assessment & Plan: Staph from OR cultures- subcutaneous abscess may have contaminated abd during surgery Plan Continue vanco through 07/26 per ID Acute abdominal pain 07/21/2019 08/03/2019 Last Assessment & Plan: Overall improving, continue po tylenol + oxycodone Respiratory failure, post-operative 07/11/2019 07/12/2019 Last Assessment & Plan: Assessment: intubated in OR for liver transplant. Airway easy, grade 1 view PLAN: - weaning vent - CXR pending. - extubate as able - once extubated hourly pulmonary hygiene Coagulopathy 07/11/2019 08/03/2019 Last Assessment & Plan: Assessment: s/p liver transplant PLAN: - Trend coags - Transfuse prn - Monitor drain output Acute pain 07/11/2019 08/03/2019 Last Assessment & Plan: Assessment: Pain improved today PLAN: D/C IV analgesia Continue to monitor closely Hepatic cirrhosis 05/20/2019 08/03/2019 documented as of this encounter (statuses as of 09/22/2022) [facility] Diagnosis Liver replaced by transplant (HCC)- Primary Liver replaced by transplant [facility] Diagnosis Liver replaced by transplant (HCC)- Primary Liver replaced by transplant Need for prophylactic immunotherapy documented [facility] this [facility]* Diagnosis Uncomplicated alcohol dependence (HCC) Other and unspecified alcohol dependence, unspecified drinking behavior documented in this encounter [facility]* Diagnosis Liver transplant recipient (HCC)- Primary documented in this encounter [facility]* Diagnosis 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 documented in this encounter [facility] general Narrative - Reported* Type Description Date Medical History HTN Medical History Esophageal reflux Medical History Embolism and thrombosis of renal vein Medical History Acute pancreatic necrosis Medical History Acute kidney injury (YOAN) with acute tubular necrosis (ATN) Medical History Benign hypertension with chronic kidney disease, stage II Medical History Liver transplant recipient Medical History Gastroesophageal ref lux disease with esophagitis without hemorrhage Medical History Alcohol abuse, in remission Surgical History Liver Transplant 2018 Surgical History ERCP DUCT STENT PLACEMENT 2019 Surgical History COLONOSCOPY 2019 Hospitalization History [facility] Other History general Narrative - Reported* Type Description Date Medical History HTN Medical History Esophageal reflux Medical History Embolism and thrombosis of renal vein Medical History Acute pancreatic necrosis Medical History Acute kidney injury (YOAN) with acute tubular necrosis (ATN) Medical History Benign hypertension with chronic kidney disease, stage II Medical History Liver transplant recipient Medical History Gastroesophageal ref lux disease with esophagitis without hemorrhage Medical History Alcohol abuse, in remission Surgical History Liver Transplant 2018 Surgical History ERCP DUCT STENT PLACEMENT 2019 Surgical History COLONOSCOPY 2019 Surgical History ERCP w/ stent replaced 11/2022 Hospitalization History [facility] [place] [facility] Other History general Narrative - Reported* Type Description Date Medical History HTN Medical History Esophageal reflux Medical History Embolism and thrombosis of renal vein Medical History Acute pancreatic necrosis Medical History Acute kidney injury (YOAN) with acute tubular necrosis (ATN) Medical History Benign hypertension with chronic kidney disease, stage II Medical History Liver transplant recipient Medical History Gastroesophageal ref lux disease with esophagitis without hemorrhage Medical History Alcohol abuse, in remission Surgical History Liver Transplant 2018 Surgical History ERCP DUCT STENT PLACEMENT 2019 Surgical History COLONOSCOPY 2018 Surgical History ERCP w/ stent replaced 11/2022 Surgical History ERCP 02/2023 Hospitalization History [facility] Other Hospital course Narrative No data available for this section [facility] No data available for this section [facility] Outpatient Procedure (Routine) - Pending Review Specialty Diagnoses / Procedures Referred By Vale lopez Referred To Contact [facility] Diagnoses Biliary stricture Procedures ERCP ERCP DX COLLECTION SPECIMEN BRUSHING/WASHING Betina Quezada MD [address] [place] [address] [facility] [address] [place] [id number] Referral ID Status Reason Start Date Expiration Date Visits Requested Visits Authorized [id number] Pending Review Auto-Generat ed Referral 12/02/2022 09/04/2023 1 1 [facility] Summary Purpose Family History No Family History Records FoundNo Family History Records FoundNo Family History Records FoundNo Family History Records FoundNo Family History Records Found No data available for this section No Family History Records Found Advance Directives No Advanced Directives Records FoundDocuments on File Type Date Recorded 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 anation Advance Directive(s) 10/30/2021 12:47 PM Advance Directive(s) 07/05/2021 6:47 PM Advance Directive(s) 07/16/2020 12:03 PM Advance Directive(s) 05/02/2020 10:37 AM Advance Directive(s) 07/10/2019 5:35 PM Advance Directive(s) 01/21/2019 3:11 PM Advance Directive(s) 10/06/2018 10:21 AM Advance Directive(s) 07/13/2018 6:11 AM Documents on File Type Date Recorded 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 anation Advance Directive(s) 10/30/2021 12:47 PM Advance Directive(s) 07/05/2021 6:47 PM Advance Directive(s) 07/16/2020 12:03 PM Advance Directive(s) 05/02/2020 10:37 AM Advance Directive(s) 07/10/2019 5:35 PM Advance Directive(s) 01/21/2019 3:11 PM Advance Directive(s) 10/06/2018 10:21 AM Advance Directive(s) 07/13/2018 6:11 AM Documents on File Type Date Recorded 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 anation Advance Directive(s) 10/06/2018 10:21 AM Latest Code Status on File Code Status Date Activated Date Inactivated Comments Full Code 09/01/2022 12:05 AM Full Code Order Discussed With: Patient Documents on File Type Date Recorded 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 anation Advance Directive(s) 10/06/2018 10:21 AM Latest Code Status on File Code Status Date Activated Date Inactivated Comments Full Code 09/01/2022 12:05 AM Latest Code Status on File Code Status Date Activated Date Inactivated Comments Full Code 09/01/2022 12:05 AM 09/05/2022 8:59 PM Reason for Referral Specialty Diagnoses / Procedures Referred By Contac t Referred To Contact CT IMAGING Diagnoses Alcohol-induced acute pancreatitis, unspecified complication status Procedures CT ABDOMEN W IVCON CT ABDOMEN W/CONTRAST Aidan Larios MD [address] [place] [address] Ct Imaging Referral ID Status Reason Start Date Expiration Date Visits Requested Visits Authorized [id number] Pending Review Auto-Generat ed Referral 12/24/2021 01/09/2023 1 1 Referral ID Status Reason Start Date Expiration Date V isits Requested Visits Authorized [id number] Closed Auto-Generated Referral Patient Cleared - INN Insurance Found 12/24/2021 01/09/2023 1 1 Additional Source Comments (unrecognized sect ion and content) No Status Records FoundNo Status Records FoundNo Status Records FoundNo Status Records FoundNo Status Records FoundNo Status Records Found INFORMATION SOURCE (unrecogn ized section and content) DATE CREATED AUTHOR 12/20/2020 [facility] DATE CREATED AUTHOR AUTHOR'S ORGANIZ ATION 07/13/2021 [facility] DATE CREATED AUTHOR AUTHOR'S ORGANIZ ATION 08/18/2021 [facility] DATE CREATED AUTHOR AUTHOR'S ORGANIZ ATION 11/09/2022 [facility] DATE CREATED AUTHOR AUTHOR'S ORGANIZ ATION 03/20/2023 [facility] DATE CREATED AUTHOR AUTHOR'S ORGANIZ ATION 06/28/2023 [facility] Source Comments (unrecognize d section and content) In the event this informatio n is protected by the Federal Confidentiality of Alcohol and Drug Abuse Patient Records regulations: The Federal rules restrict any use of the information to criminally investigate or prosecute any alcohol or drug abuse patient.[facility] the event this information is protected by the Federal Confidentiality of Alcohol and Drug Abuse Patient Records regulations: The Federal rules restrict any use of the information to criminally investigate or prosecute any alcohol or drug abuse patient.[facility] the event this information is protected by the Federal Confidentiality of Alcohol and Drug Abuse Patient Records regulations: The Federal rules restrict any use of the information to criminally investigate or prosecute any alcohol or drug abuse patient.[facility] the event this information is protected by the Federal Confidentiality of Alcohol and Drug Abuse Patient Records regulations: The Federal rules restrict any use of the information to criminally investigate or prosecute any alcohol or drug abuse patient.[facility] the event this information is protected by the Federal Confidentiality of Alcohol and Drug Abuse Patient Records regulations: The Federal rules restrict any use of the information to criminally investigate or prosecute any alcohol or drug abuse patient.[facility] the event this information is protected by the Federal Confidentiality of Alcohol and Drug Abuse Patient Records regulations: The Federal rules restrict any use of the information to criminally investigate or prosecute any alcohol or drug abuse patient.[facility] the event this information is protected by the Federal Confidentiality of Alcohol and Drug Abuse Patient Records regulations: The Federal rules restrict any use of the information to criminally investigate or prosecute any alcohol or drug abuse patient.[facility] the event this information is protected by the Federal Confidentiality of Alcohol and Drug Abuse Patient Records regulations: The Federal rules restrict any use of the information to criminally investigate or prosecute any alcohol or drug abuse patient.[facility] the event this information is protected by the Federal Confidentiality of Alcohol and Drug Abuse Patient Records regulations: The Federal rules restrict any use of the information to criminally investigate or prosecute any alcohol or drug abuse patient.[facility] the event this information is protected by the Federal Confidentiality of Alcohol and Drug Abuse Patient Records regulations: The Federal rules restrict any use of the information to criminally investigate or prosecute any alcohol or drug abuse patient.[facility] the event this information is protected by the Federal Confidentiality of Alcohol and Drug Abuse Patient Records regulations: The Federal rules restrict any use of the information to criminally investigate or prosecute any alcohol or drug abuse patient.[facility] Center[facility] the event this information is protected by the Federal Confidentiality of Alcohol and Drug Abuse Patient Records regulations: The Federal rules restrict any use of the information to criminally investigate or prosecute any alcohol or drug abuse patient.[facility] Center[facility] the event this information is protected by the Federal Confidentiality of Alcohol and Drug Abuse Patient Records regulations: The Federal rules restrict any use of the information to criminally investigate or prosecute any alcohol or drug abuse patient.[facility] Center[facility] the event this information is protected by the Federal Confidentiality of Alcohol and Drug Abuse Patient Records regulations: The Federal rules restrict any use of the information to criminally investigate or prosecute any alcohol or drug abuse patient.[facility] Reason for Visit (unrecogniz ed section and content) Reason Comments Radiology CT Specialty Diagnoses / Procedures Referred By Vale lopez Referred To Contact CT IMAGING Diagnoses Alcohol-induced acute pancreatitis, unspecified complication status Procedures CT ABDOMEN W IVCON CT ABDOMEN W/CONTRAST Aidan Larios MD [address] [place] [address] Ct Imaging Referral ID Status Reason Start Date Expiration Date V isits Requested Visits Authorized [id number] Closed Auto-Generated Referral Patient Cleared - INN Insurance Found 12/24/2021 01/09/2023 1 1 Reason Comments Hospital Follow Up Reason Comments Established Patient Reason Comments Covid19 Concern Reason Comments Reminder To Have Labs Drawn Reason Comments Refill Request Reason Comments Endoscopy Call Reason Comments Care Coordination [facility] clinic Care Teams (unrecognized sec tion and content) Flow Specialist Relationship Specialty Start Date End Date Luis Abdalla, DO [address] [place] [address] PCP - General Internal Medicine 01/12/18 Angie Fernandes Jr. [address] [address] Referring Gastroenterology 01/12/18 Nadja Spencer RN [facility] [address] [place] [address] Transplant Center 08/31/19 Flow Specialist Relationship Specialty Start Date End Date Luis Abdalla, DO [address] [place] [address] PCP - General Internal Medicine 01/12/18 Angie Fernandes Jr. [address] [address] Referring Gastroenterology 01/12/18 Nadja Spencer RN [facility] [address] [place] [address] Transplant Center 08/31/19 Flow Specialist Relationship Specialty Start Date End Date Luis Abdalla, DO [address] [place] [address] PCP - General Internal Medicine 01/12/18 Angie Fernandes Jr. [address] [address] Referring Gastroenterology 01/12/18 Nadja Spencer RN [facility] [address] [place] [address] Transplant Center 08/31/19 Flow Specialist Relationship Specialty Start Date End Date Luis Abdalla, DO [address] [place] [address] PCP - General Internal Medicine 01/12/18 Angie Fernandes Jr. [address] [address] Referring Gastroenterology 01/12/18 Nadja Spencer RN [facility] [address] [place] [address] Transplant Center 08/31/19 Flow Specialist Relationship Specialty Start Date End Date Luis Abdalla, DO [address] [place] [address] PCP - General Internal Medicine 01/12/18 Angie Fernandes Jr. [address] [address] Referring Gastroenterology 01/12/18 Nadja Spencer RN [facility] [address] [place] [address] Transplant Center 08/31/19 Flow Specialist Relationship Specialty Start Date End Date Luis Abdalla, DO [address] [place] [address] PCP - General Internal Medicine 01/12/18 Angie Fernandes Jr. [address] [address] Referring Gastroenterology 01/12/18 Nadja Spencer RN [facility] [address] [place] [address] Transplant Center 08/31/19 Flow Specialist Relationship Specialty Start Date End Date Luis Abdalla, DO [address] [place] [address] PCP - General Internal Medicine 01/12/18 Angie Fernandes Jr., DO [address] [address] Referring Gastroenterology 01/12/18 Nadja Spencer, BATOOL [facility] [address] [place] [address] Transplant Center 08/31/19 Flow Specialist Relationship Specialty Start Date End Date Luis Abdalla, DO [address] [place] [address] PCP - General Internal Medicine 01/12/18 Angie Fernandes Jr., DO [address] [address] Referring Gastroenterology 01/12/18 Nadja Spencer, BATOOL [facility] [address] [place] [address] Transplant Center 08/31/19 Flow Specialist Relationship Specialty Start Date End Date Luis Abdalla, DO [address] [place] [address] PCP - General Internal Medicine 01/12/18 Angie Fernandes Jr., DO [address] [address] Referring Gastroenterology 01/12/18 Nadja Spencer, BATOOL [facility] [address] [place] [address] Transplant Center 08/31/19 Flow Specialist Relationship Specialty Start Date End Date Lius Abdalla, DO [address] [place] [address] PCP - General Internal Medicine 01/12/18 Angie Fernandes Jr., DO [address] [address] Referring Gastroenterology 01/12/18 Nadja Spencer, BATOOL [facility] [address] [place] [address] Transplant Center 08/31/19 FOR RECORDS PERTAINING TO PATIENTS WHO ARE OR HAVE BEEN ENROLLED IN A CHEMICAL DEPENDENCY/SUBSTANCEABUSE PROGRAM, SOME INFORMATION MAY BE OMITTED. This clinical summary was aggregated from multiple sources. Caution should be exercised in using it in the provision of clinical care. This summary normalizes information from multiple sources, and as a consequence, information in this document may materially change the coding, format and clinical context of patient data. In addition, data may be omitted in some cases. CLINICAL DECISIONS SHOULD BE BASED ON THE PRIMARY CLINICAL RECORDS. [employer] provides no warranty or guarantee of the accuracy or completeness of information in this document.
--- NOTE | 2023-09-28 13:56 | PM.CN ---
Consult Note: HPI Data of Consult Patient: new to practice Consult date: 09/28/23 Requesting Physician: Vicente Thompson MD Primary Care Provider: Luis Hicks DO Consult Narrative Reason for consult: Bilateral lower extremity pain Narrative: 37yom who presents for evaluation. Worsening bilateral lower extremity pain for past 3-4 months. Denies any specific trauma to region. 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 Previously was wearing a boot on left, which made right worse. Has completed physical therapy within past 3 months, which helped temporarily, but pain now back. Uses OTC meds as needed. History of liver transplant 2/2 hemochromatosis. cc:: CC: Vicente Thompson MD Review of Systems ROS Status of ROS 10 or more systems reviewed and unremarkable except as noted in history and below Meds Home Medications and Allergies Home Medications Medication Instructions Recorded Confirmed Type Bactrim .QOTHER 09/28/23 History amlodipine 10 mg tablet 10 mg PO DAILY 09/28/23 09/28/23 History carvedilol 12.5 mg tablet 25 mg PO BID 09/28/23 09/28/23 History magnesium 200 mg tablet 400 mg PO DAILY 09/28/23 09/28/23 History pantoprazole 40 mg tablet,delayed mg PO 09/28/23 History release tacrolimus 1 mg capsule, 3 mg PO BID 09/28/23 09/28/23 History immediate-release ursodiol 300 mg capsule 300 mg PO TID 09/28/23 09/28/23 History Allergies Allergy/AdvReac Type Severity Reaction Status Date / Time midazolam [From Versed] Allergy Unknown Verified 09/28/23 13:44 Penicillins Allergy Unknown Verified 09/28/23 13:44 Exam Narrative Exam Narrative: Psych-alert and oriented x 3. Attentive and appropriate, constitutionally normal, displays normal mood and affect per situation. There are no obvious deficits in memory, reasoning, or intellect.? Skin-no obvious rashes, bruising, erythema noted to the patient's area of pain.? Extremities- extremities are warm with minimal edema and palpable pulses. Lumbar-tenderness to palpation noted in the lumbar spine and paraspinal musculature. Pain is not elicited with flexion, extension, and lateral rotation of the lumbar spine. Range of motion is not diminished with these motions. Facet loading maneuvers are negative.? Strength-noted to be unremarkable with the exception of decreased strength rated at 4 out of 5 in bilateral anterior tibialis, posterior tibialis. Sensory-no notable sensory deficits in the bilateral lower extremities to touch or pinprick in all dermatomal distributions with the exception to decreased sensation to the bilateral S1 dermatomal distribution Coordination remains intact.? Gait remains non-antalgic. Assessment and Plan Assessment and Plan (1) Lumbar radiculopathy: (2) Lumbar stenosis without neurogenic claudication: Plan 37yom who presents for evaluation. Failed conservative measures, as noted. Imaging reviewed, as noted. Given the quality of his pain, would like him to undergo lumbar MRI without contrast and bilateral lower extremity EMGs. He is in agreement. Medications reviewed, no changes at this time. Follow up after imaging and testing complete.
== END 2023-09-28 12:34 | disposition home or self-care (01) ==
PROVIDERS: PCP Internal Medicine; Visit Provider Anesthesiology
DX: M54.16 Radiculopathy, lumbar region (principal)
CPT/HCPCS: G0463

== ENCOUNTER 2023-10-07 09:24 | Outpatient (OUT) | payer MEDICARE, MEDICAID, SELFPAY ==
--- NOTE | 2023-10-07 09:28 | MR_ITS ---
[place] [id number] Patient Name: MICHAEL AN MRN: [facility]:[id number] date: 1985 Sex: M Assigned Patient Location: MRI Current Patient Location: MRI Accession/Order Number: [id number] Exam Date: 10/07/2023 09:51 Report Date: 10/07/2023 12:07 At the request of: HUNTER INMAN Procedure: MR lumbar spine wo con EXAM: MR lumbar spine wo con HISTORY: Lumbar Stenosis With Neurogenic Claudication COMPARISON: None. TECHNIQUE: Multiplanar multisequence MRI was obtained through the lumbar spine without contrast FINDINGS: For discussion purposes the cephalad most axial T2 weighted image defines the T12-L1 disc level. Osseous: The vertebral body heights are maintained. No fracture. Disc desiccation at L4-L5. Disc desiccation and disc height loss at L5-S1. Conus medullaris/cauda equina: The conus medullaris terminates at the L1 level. No abnormal signal is demonstrated within the distal aspect of the spinal cord. Soft tissues: The abdominal aorta is normal in caliber. No retroperitoneal lymphadenopathy. Disc levels: T12-L1: No disc protrusion, spinal canal stenosis, or neural foraminal stenosis. L1-L2: No disc protrusion, spinal canal stenosis, or neural foraminal stenosis. L2-L3: No disc protrusion, spinal canal stenosis, or neural foraminal stenosis. L3-L4: No disc protrusion, spinal canal stenosis, or neural foraminal stenosis. L4-L5: Small broad-based posterior disc bulge with associated annular fissure. Moderate bilateral facet arthrosis. Effacement of ventral CSF. The neural foramina are mildly narrowed inferiorly. L5-S1: Broad-based posterior disc bulge with associated annular fissure. Mild bilateral facet arthrosis. Mild bilateral foraminal stenosis. Pars interarticularis defects of L5. MR/MR lumbar spine wo con IMPRESSION: 1. Mild degenerative changes of the lumbar spine L4-L5 and L5-S1 with mild narrowing of the foramina. 2. Pars interarticularis defects of L5. No spondylolisthesis at this time. Electronically authenticated by: CHALO SHELBY Date: 10/07/2023 12:07
--- OUTSIDE RECORDS SUMMARY | 2023-10-07 09:28 | XMS_ITS | CCD ---
Author Name Unknown Address [address] [place] [address] Organization [facility] Care Team Providers Care Rough Rounder Name Role Phone RM, DR VAZQUEZ Attending Unavailable RM, DR VAZQUEZ Consulting Unavailable RM, DR VAZQUEZ Primary Care Unavailable RM, DR VAZQUEZ Admitting Unavailable ALINA, DR ANGIE Winslow Consulting Unavailable Luis Abdalla DO Primary Care Provider Angie Fernandes Jr. Unavailable Nadja Spencer RN Unavailable Unavailable Luis Abdalla DO Primary Care Provider Angie Fernandes Jr. Unavailable Nadja Spencer RN Unavailable Unavailable Dena Pineda DO, David L Unavailable Nadja Spencer RN Unavailable Unavailable Luis Abdalla DO Primary Care Provider Dena Pineda DO, David L Unavailable [phone] Nadja Spencer RN Unavailable Unavailable Luis Abdalla [...] Referring Unavailable LUIS ABDALLA Primary Care Physician Wilmer Rosenberg Attending Unavailable Donna GIRON, Vicente Saavedra Attending Unavailable Allergies Allergy Classification Reported Allergen(s) Allergy Type Date of Onset Reaction(s) Facility Penicillins (antibiotic) (1 source) Penicillin Drug Allergy [facility] Repository (16 sources) Midazolam; Translations: [MIDAZOLAM] Drug Allergy 02-19-20 Other: See Comments [facility] (6 sources) Penicillins; Translations: [PENICILLINS] Drug Allergy Unknown [facility] Work Phone: (16 sources) Seasonal allergy; Translations: [SEASONAL ALLERGIES] Propensity to adverse reactions 06-29-20 Unknown [facility] (10 sources) Penicillins Drug Allergy Unknown [facility] Work Phone: (3 sources) penicillAMINE Drug Allergy Unknown [facility] Other (2 sources) Penicillin; Translations: [penicillin] Drug Allergy Urticaria (disorder) [facility] Medications Current Medications Medication Drug Class(es) Dates [...] on above: Take 1 capsule by mo uth three times daily. Completed/Discontinued Medications Medication Drug [...] for Treatmenton 05-28 Consent for Treatment [id number] IFF Normal [facility] Discharge Instructionson Discharge Instructions [id number] 0TIFF Normal [facility] ED Clinical Summaryon 2022 ED Clinical Summary (Inserted Image. Suzanne ble to display) [place] [id number] ED Clinical Summary Person Information Name: CHUCKIE VILLALTA Marissa/[facility] Age: 37 Years : 1985 Sex: Male Language: Kazakh PCP: LUIS ABDALLA DO Marital Status: Phone: [phone] Visit Id: Visit Reason: Foot pain-swelling; PAIN [...] 06/20/2023 18:04:25 ADDRESS: [address] [id number] PHYS DOC NOTES: MEDICAL INFORMATION: Prescriptions Given: PATIENT EDUCATION INFORMATION: Instructions: Foot Sprain; Elastic Bandage and RICE Therapy; Ankle Sprain, Phase II Rehab; Ankle Sprain, Phase I Rehab; Ankle Sprain Follow up: With: Address: When: LUIS ABDALLA [address] [facility], [place] [address] [employer] (1) In 3 days 06/23/2023 Comments: Follow-up with your primary care provider in 3 to 5 days. If symptoms worsen, do not improve, or new symptoms arise please report back to emergency department for further evaluation. DIAGNOSIS: Left ankle sprain; Sprain of left foot Normal [facility] ED Note-Physicianon 06-20-20 ED Note-Physician Basic Information Time Seen: Zacarias TODD, Dilan White 06/20/2023 17:15 Chief Complaint pt c\o L [...] and Complexity of Problems Differential Diagnosis: [] [facility] Data External documents reviewed: [] My EKG [...] LUIS ABDALLA In 3 days 06/23/2023 EST [address] [facility] [place] [address]- Business (1) Additional Instructions: Follow-up with your [...] seen and evaluated by the physician assistant corporate secretary. Attending physician was present in the emergency department and supervised care. This visit was performed by both the physician and an APC. I performed all aspects of the MDM as documented. This report was transcribed using voice recognition software. Every effort was made to ensure accuracy, however, inadvertently computerized osteology teacher mistakes may be present. Appropriate healthcare PPE was used in evaluating this patient. The patient was placed in a mask. The healthcare provider was wearing mask, gloves, and utilizing proper hand hygiene. All equipment was properly cleansed. Problem List/Past Medical History Ongoing No qualifying data Historical No qualifyi (more content not included)... Normal [facility] Comment on above: Result Comment: Elec tronically [...] on your foot. General instructions ? Take qibu-yrx-kunycpi and prescription medicines only as told by your health care provider. ? When you can walk without pain, wear supportive shoes t (more content not included)... Normal [facility] ED Patient Summaryon 023 ED Patient Summary (Inserted Image. Suzanne ble to display) [address] [address] Patient Discharge Instructions Person Information Name: CHUCKIE VILLALTA Age: 37 Years Arrival Date: 06/20/2023 15:53:53 Discharge Diagnosis: Left ankle sprain; Sprain of left foot Primary Care Physician: LUIS ABDALLA DO Provider Information Primary Provider: Wilmer Rosenberg M.D. Advanced [employer] Truck Driver:None The exam and treatment you received in the Emergency Department were for an urgent problem and are not intended as complete care. It is important that you follow up with a doctor, nurse practitioner, or physician?s assistant corporate secretary for ongoing care. If your symptoms become worse or you do not improve as expected and you are unable to reach your usual health care provider, you should return to the Emergency Department. We are available 24 hours a day. CHUCKIE VILLALTA has been given the following list of patient education materials, prescriptions and follow-up instructions: Follow-up Instructions: With: Address: When: LUIS ABDALLA [address] [place] [address] [facility] () In 3 days 06/23/2023 Comments: [...] opioids can be used to help relieve jkjqgmec-uv-ecnbqd pain and are often prescribed following a [...] Administration (www.fda.gov/Kali (more content not included)... Normal [facility] XR Ankle 3+ Views Lefton XR Ankle [...] mGy = na DAP = na Normal [facility] XR Foot 3+ Views Lefton 05-28 XR [...] mGy = na DAP = na Normal [facility] ANES POSTPROC EVALon 023 ANES POSTPROC EVAL HNO ID: [id number] Author: Delmer Webber MD Service: ? Author [...] Quezada MD; Delmer Webber MD; Henrietta Brewster APRN.PLASTICS ENGINEERING TEACHER Responsible Provider: Delmer Webber MD Anesthesia Type: [...] March 19, 2023 TIME: 10:05 AM CSN: [id number] Normal [facility] ANES PRE-OPon 03-19-2023 ANES PRE-OP HNO ID: [id number] Author: Delmer Webber MD Service: ? Author Type: Anesthesiologist Type: Anesthesia Preprocedure Evaluation Filed: 03/19/2023 8:02 AM Note Text: ANESTHESIOLOGY DAY OF SURGERY NOTE : 1985 Procedure Information Date/Time: 03/19/23 0800 Scheduled providers: Betina Quezada MD; Delmer Webber MD; Henrietta Brewster APRN.PLASTICS ENGINEERING TEACHER Procedure: ERCP Location: Gastroenterology Estimated body mass [...] and consent discussed: yes. Patient / Responsible Green Party agrees to proceed: yes Patient / Surrogate [...] March 19, 2023 TIME: 8:02 AM CSN: [id number] Normal [facility] Gas and Carbon monoxide pane l (BldV)on 03-19-2023 BASE DEFICIT, VENOUS -3 mmol/L Low -2-0 [facility] Comment on above: Order Comment: Noe madrid Type: BLOOD SPECIMEN Ordering Facility: [facility] Address: [address] [place] [address] Performed By: #### 5 763-8, COPPER #### [facility] CLIA [id number] [facility] [place] [address] [place] Body temperature 98.24 [degF] Normal [facility] Comment on above: Order Comment: Noe madrid Type: BLOOD SPECIMEN Ordering Facility: [facility] Address: [address] [place] [address] Performed By: #### 5 763-8, COPPER #### [facility] CLIA [id number] [address] [place] [address] [place] Calcium.ionized (Bld) [Mass/Vol] 1.24 mmol/L Normal 1.08-1.30 [facility] Comment on above: Order Comment: oNe madrid Type: BLOOD SPECIMEN Ordering Facility: [facility] Address: [address] [place] [address] Performed By: #### 5 763-8, COPPER #### [facility] CLIA [id number] [address] [place] [place] [address] [place] Calcium.ionized adjusted to pH 7.4 (BldA) [Moles/Vol] 1.23 mmol/L Normal 1.08-1.30 [facility] Comment on above: Order Comment: Speci men Type: BLOOD SPECIMEN Ordering Facility: [facility] Address: [address] [place], [place] [address] Performed By: #### 5 763-8, COPPER #### [facility] CLIA [id number] [address] [place] [address] [place] Carboxyhemoglobin (BldV) [Mass fraction] 1.2 % Normal 0.0-2.0 [facility] Comment on above: Order Comment: Speci men Type: BLOOD SPECIMEN Ordering Facility: [facility] Address: [address] [place] [address] Result Comment: Carb oxyhemoglobin Reference Range for Smokers: 2.0-8.0% Performed By: #### 5 763-8, COPPER #### [facility] CLIA [id number] [address] [place] [address] [place] CO2 (BldV) [Partial pressure] 36 mm[Hg] Low 42-55 [facility] Comment on above: Order Comment: Speci men Type: BLOOD SPECIMEN Ordering Facility: [facility] Address: [address] [place], [place] [address] Performed By: #### 5 763-8, COPPER #### [facility] CLIA [id number] [address] [place] [address] [place] CO2 adjusted to patient's actual temperature (BldV) [Partial pressure] 35 mmHg Low 42-55 [facility] Comment on above: Order Comment: Speci men Type: BLOOD SPECIMEN Ordering Facility: [facility] Address: [address] [place], [place] [address] Performed By: #### 5 763-8, COPPER #### [facility] CLIA [id number] [address] [place] [address] [place] Glucose [Mass/Vol] 124 mg/dL High 60-105 [facility] Comment on above: Order Comment: Speci men Type: BLOOD SPECIMEN Ordering Facility: [facility] Address: [address] [place] [address] Performed By: #### 5 763-8, COPPER #### [facility] CLIA [id number] [address] [place] [address] [place] HCO3 (Bld) [Moles/Vol] 21 mmol/L Low 24-28 [facility] Comment on above: Order Comment: Speci men Type: BLOOD SPECIMEN Ordering Facility: [facility] Address: [address] [place], [place] [address] Performed By: #### 5 763-8, COPPER #### [facility] CLIA [id number] [address] [place] [address] [place] Hematocrit (Bld) [Volume fraction] 41.1 % Normal 39.0-51.0 [facility] Comment on above: Order Comment: Speci men Type: BLOOD SPECIMEN Ordering Facility: [facility] Address: [address] [place], [place] [address] Performed By: #### 5 763-8, COPPER #### [facility] CLIA [id number] [address] [place] [address] [place] Hemoglobin (Bld) [Mass/Vol] 13.4 g/dL Normal 13.0-17.0 [facility] Comment on above: Order Comment: Speci men Type: BLOOD SPECIMEN Ordering Facility: [facility] Address: [address] [place] [address] Performed By: #### 5 763-8, COPPER #### [facility] CLIA [id number] [address] [place] [address] [place] Lactate [Moles/Vol] 1.9 mmol/L Normal 0.5-2.2 [facility] Comment on above: Order Comment: Speci men Type: BLOOD SPECIMEN Ordering Facility: [facility] Address: [address] Performed By: #### 5 763-8, COPPER #### [facility] CLIA [id number] [address] [place] [address] [place] Methemoglobin (Bld) [Mass fraction] 0.8 % Normal 0.0-1.5 [facility] Comment on above: Order Comment: Speci men Type: BLOOD SPECIMEN Ordering Facility: [facility] Address: [address] Performed By: #### 5 763-8, COPPER #### [facility] CLIA [id number] [address] [place] [address] [place] O2 THERAPY RA=Room Air Normal [facility] Comment on above: Order Comment: Speci men Type: BLOOD SPECIMEN Ordering Facility: [facility] Address: [address] Performed By: #### 5 763-8, COPPER #### [facility] CLIA [id number] [address] [place] [address] [place] Oxygen (BldV) [Partial pressure] 69 mm[Hg] High 35-45 [facility] Comment on above: Order Comment: Speci men Type: BLOOD SPECIMEN Ordering Facility: [facility] Address: [address] Performed By: #### 5 763-8, COPPER #### [facility] CLIA [id number] [address] [place] [address] [place] Oxygen adjusted to patient's actual temperature (BldV) [Partial pressure] 68 mmHg High 35-45 [facility] Comment on above: Order Comment: Speci men Type: BLOOD SPECIMEN Ordering Facility: [facility] Address: [address] Performed By: #### 5 763-8, COPPER #### [facility] CLIA [id number] [address] [address] [place] Oxygen saturation in Venous blood 94 % High 60-85 [facility] Comment on above: Order Comment: Speci men Type: BLOOD SPECIMEN Ordering Facility: [facility] Address: [address] [place] [address] Performed By: #### 5 763-8, COPPER #### [facility] CLIA [id number] [address] [address] [place] Oxyhemoglobin (BldV) [Mass fraction] 92 % High 60-85 [facility] Comment on above: Order Comment: Speci men Type: BLOOD SPECIMEN Ordering Facility: [facility] Address: [address] [place] [address] Performed By: #### 5 763-8, COPPER #### [facility] CLIA [id number] [address] [place] [address] [place] pH (BldV) 7.39 [pH] Normal 7.32-7.42 [facility] Comment on above: Order Comment: Speci men Type: BLOOD SPECIMEN Ordering Facility: [facility] Address: [address] [place] [address] Performed By: #### 5 763-8, COPPER #### [facility] CLIA [id number] [address] [place] [address] [place] pH adjusted to patient's actual temperature (BldV) 7.39 Normal 7.32-7.42 [facility] Comment on above: Order Comment: Speci men Type: BLOOD SPECIMEN Ordering Facility: [facility] Address: [address] [place] [address] Performed By: #### 5 763-8, COPPER #### [facility] CLIA [id number] [address] [place] [id number] [place] Potassium [Moles/Vol] 4.1 mmol/L Normal 3.5-5.0 [facility] Comment on above: Order Comment: Speci men Type: BLOOD SPECIMEN Ordering Facility: [facility] Address: [address] [place] [address] Performed By: #### 5 763-8, COPPER #### [facility] CLIA [id number] [address] [place] [address] [place] Sodium [Moles/Vol] 140 mmol/L Normal 136-144 [facility] Comment on above: Order Comment: Speci men Type: BLOOD SPECIMEN Ordering Facility: [facility] Address: [address] [place] [address] Performed By: #### 5 763-8, COPPER #### [facility] CLIA [id number] [address] [place] [address] [place] NURSING PROGon 03-19-2023 NURSING PROG HNO ID: [id number] Author: Blanca Kulkarni, BATOOL Service: Nursing Author Type: Registered Nurse Type: [...] Electronically Signed By: Blanca Kulkarni RN Normal [facility] NURSING PROG HNO ID: [id number] Author: Indu Meza RN Service: Nursing Author [...] Indu Meza RN In Department: GASTROENTEROLOGY Normal [facility] 03-12-2023 CNPN Telephone (GASTPR) CHUCKIE VILLALTA ([id number]) 1985 M Date Time Provider Department 03/12/23 YAMILET YAN [facility] During your visit today, we recorded the [...] have family/friend present for procedure transport home:Patient/patient financial representative was told that if they do [...] area. Any barriers to Patient learning: Patient/Patient Tool Supervisor responded appropriately on phone. Type of instruction given: Verbal by telephone contact. Yamilet Yan RN Allergies As of Date: 03/12/2023 Noted Allergy Reaction PENICILLINS 16 - Unknown Comments: Skin test positive 09/01/18 MIDAZOLAM 02/18/2021 14 - Other: See Comments SEASONAL ALLERGIES 06/29/2018 16 - Unknown Date Reviewed: 12/11/2022 Reviewed by: Aihca Bragg, BATOOL - Fully Assessed Reason for Visit: Appointment Confirmation [4073] Prescriptions as of 03/12/2023 - tacrolimus IR [...] Encounter Status:Closed by YAMILET YAN on 03/12/23 Normal [facility] ANES POSTPROC EVALon 023 ANES POSTPROC EVAL HNO ID: [id number] Author: Angie Lloyd MD Service: ? Author Type: Anesthesiologist Type: Anesthesia Postprocedure Evaluation Filed: 12/11/2022 12:58 PM Note Text: POST ANESTHESIA EVALUATION NOTE : 1985 Procedure Summary Date: 12/11/22 Room / Location: Gastroenterology Anesthesia Start: 1000 Anesthesia Stop: 110 Procedure: ERCP Diagnosis: Biliary stricture (Stent change) [...] December 11, 2022 TIME: 12:57 PM CSN: [id number] Normal [facility] ANES PRE-OPon 12-11-2022 ANES PRE-OP HNO ID: [id number] Author: Angie Lloyd MD Service: ? Author [...] and consent discussed: yes. Patient / Responsible Green Party agrees to proceed: yes Patient / Surrogate [...] December 11, 2022 TIME: 9:21 AM CSN: [id number] Normal [facility] NURSING PROGon 12-11-2022 NURSING PROG HNO ID: [id number] Author: Aicha Bragg RN Service: ? Author [...] None Electronically Signed By: Aicha Bragg RN [facility] NURSING PROG HNO ID: [id number] Author: Tatiana Ray RN Service: Nursing Author [...] By: Tatiana Ray RN In Department: GASTROENTEROLOGY [facility] CHUCKIE [facility]ILLALTA ([id number]) 1985 M [facility] Date Time Provider Department 11/04/22 MIMI CLEMENS4C During your visit today, we recorded the following information about you: SHAQ Price 11/04/2022 11:06 AM Signed SW attempted to contact the patient to discuss the [facility] clinic. DEONDRE left a VM and requested a return phone. SHAQ Price November 04, 2022 11:06 AM Allergies As of Date: 11/04/2022 Noted Allergy Reaction PENICILLINS 16 - Unknown Comments: Skin test positive 09/01/18 MIDAZOLAM 02/18/2021 14 - Other: See Comments SEASONAL ALLERGIES 06/29/2018 16 - Unknown Date Reviewed: 09/04/2022 Reviewed by: Tova Wilson RN - Fully Assessed Reason for Visit: Care Coordination [5028] Cmt: [facility] clinic Prescriptions as of 11/04/2022 - tacrolimus [...] without infection or necrosi*09/01/2022 Encounter Status:Closed by MIMI CLEMENS on 11/04/22 [facility] 09-22-2022 [facility] Telephone (GASTA5) CHUCKIE VILLALTA ([id number]) 1985 M TRN Date Time Provider Department 09/22/22 RASHIDA LIRIANO GASTA5 During your visit today, we recorded the following information about you: Rashida Liriano RN 09/22/2022 11:33 AM Signed Called and left patient regarding referral to [facility] clinic. Call back number provided. [employer] message with the details also sent. Rashida Liriano RN September 22, 2022 11:32 AM Allergies As of Date: 09/22/2022 Noted Allergy Reaction PENICILLINS 16 - Unknown Comments: Skin test positive 09/01/18 [place]AM 02/18/2021 14 - Other: See Comments SEASONAL ALLERGIES 06/29/2018 16 - Unknown Date Reviewed: 09/04/2022 Reviewed by: Tova Wilson RN - Fully Assessed Reason for Visit: Care Coordination [9964] Cmt: [facility] clinic Prescriptions as of 09/22/2022 - tacrolimus [...] Encounter Status:Closed by RASHIDA LIRIANO on 09/22/22 [facility] CASE MANAGEMon 09-05-2022 CASE MANAGEM HNO ID: [id number] Author: JEY Felton Service: ? Author Type: Clinical Rehabilitation Liaison Type: Care Mgt Progress Note Filed: 09/05/2022 [...] contact on-call CM at: G Building - [address] H Building - [address] J Building - [address]48 M Building - [address]335 SIGNATURE: Delilah Hightower RECYCLABLE PRODUCTS SORTER, RECOATING MACHINE OPERATOR PATIENT NAME: Chuckie Villalta DATE: September 05, 2022 TIME: 9:30 AM PAGER/CONTACT #: Normal [facility] CBC panel Auto (Bld)on 09-05 Erythrocyte distribution width (RBC) [Ratio] 17.1 % High 11.5-15.0 [facility] Comment on above: Order Comment: Speci men Type: BLOOD SPECIMEN Ordering Facility: [facility] Address: [address] [place] [address] Performed By: #### 5 763-8, COPPER #### [facility] CLIA [id number] [address] [place] [address] [place] Hematocrit (Bld) [Volume fraction] 37.4 % Low 39.0-51.0 [facility] Comment on above: Order Comment: Speci men Type: BLOOD SPECIMEN Ordering Facility: [facility] Address: [address] [place] [address] Performed By: #### 5 763-8, COPPER #### [facility] CLIA [id number] [address] [place] [address] [place] Hemoglobin (Bld) [Mass/Vol] 12.8 g/dL Low 13.0-17.0 [facility] Comment on above: Order Comment: Speci men Type: BLOOD SPECIMEN Ordering Facility: [facility] Address: [address] [place] [address] Performed By: #### 5 763-8, COPPER #### [facility] CLIA [id number] [address] [place] [address] [place] MCH (RBC) [Entitic mass] 30.3 pg Normal 26.0-34.0 [facility] Comment on above: Order Comment: Speci men Type: BLOOD SPECIMEN Ordering Facility: [facility] Address: [address] Performed By: #### 5 763-8, COPPER #### [facility] CLIA [id number] [address] [place] [address] [place] MCHC (RBC) [Mass/Vol] 34.2 g/dL Normal 30.5-36.0 [facility] Comment on above: Order Comment: Speci men Type: BLOOD SPECIMEN Ordering Facility: [facility] Address: [address] Performed By: #### 5 763-8, COPPER #### [facility] CLIA [id number] [address] [place] [address] [place] MCV (RBC) [Entitic vol] 88.4 fL Normal 80.0-100.0 [facility] Comment on above: Order Comment: Speci men Type: BLOOD SPECIMEN Ordering Facility: [facility] Address: [address] Performed By: #### 5 763-8, COPPER #### [facility] CLIA [id number] [address] [place] [address] [place] Nucleated RBC (Bld) [#/Vol] 10*3/uL Normal <0.01 [facility] Comment on above: Order Comment: Speci men Type: BLOOD SPECIMEN Ordering Facility: [facility] Address: [address] Performed By: #### 5 763-8, COPPER #### [facility] CLIA [id number] [address] [place] [address] [place] Platelet mean volume (Bld) [Entitic vol] 12.6 fL Normal 9.0-12.7 [facility] Comment on above: Order Comment: Speci men Type: BLOOD SPECIMEN Ordering Facility: [facility] Address: [address] [place] [address] Performed By: #### 5 763-8, COPPER #### [facility] CLIA [id number] [address] [place] [address] [place] Platelets (Bld) [#/Vol] 61 10*3/uL Low 150-400 [facility] Comment on above: Order Comment: Speci men Type: BLOOD SPECIMEN Ordering Facility: [facility] Address: [address] [place] [address] Result Comment: Resu lts checked and verified.No clot detected. Performed By: #### 5 763-8, COPPER #### [facility] CLIA [id number] [address] [place] [address] [place] RBC (Bld) [#/Vol] 4.23 10*6/uL Normal 4.20-6.00 [facility] Comment on above: Order Comment: Speci men Type: BLOOD SPECIMEN Ordering Facility: [facility] Address: [address] [place], [place] [address] Performed By: #### 5 763-8, COPPER #### [facility] CLIA [id number] [address] [place] [address] [place] WBC (Bld) [#/Vol] 4.92 10*3/uL Normal 3.70-11.00 [facility] Comment on above: Order Comment: Speci men Type: BLOOD SPECIMEN Ordering Facility: [facility] Address: [address] [place], [place] [address] Performed By: #### 5 763-8, COPPER #### [facility] CLIA [id number] [address] [place] [address] [facility] CNDSon 09-05-2022 CNDS HNO ID: [id number] Author: Minna Dwyer MD Service: General Internal [...] Time Provider Department Center 09/16/2022 3:55 PM Geneveive Burton PA-C GASTA5 Mn A Bldg REASON [...] DOPPLER COM (more content not included)... Normal [facility] Comprehensive metabolic 2000 panelon 09-05-2022 Albumin [Mass/Vol] 3.8 g/dL Low 3.9-4.9 [facility] Comment on above: Order Comment: Speci men Type: BLOOD SPECIMENOrdering Facility: [facility] Address: [address] [place] [address] Performed By: #### 2 4323-8 ####[facility]CLIA [id number] [place] [address] [place] ALP [Catalytic activity/Vol] 94 U/L Normal 38-113 [facility] Comment on above: Order Comment: Speci men Type: BLOOD SPECIMENOrdering Facility: [facility] Address: [address] [place] [address] Performed By: #### 2 4323-8 ####[facility] LABCLIA [id number] [address] [place] ALT [Catalytic activity/Vol] 101 U/L High 10-54 [facility] Comment on above: Order Comment: Speci men Type: BLOOD SPECIMENOrdering Facility: [facility] Address: [address] [place] [address] Performed By: #### 2 4323-8 ####[facility] LABCLIA [id number] [place] [address] [place] Anion gap [Moles/Vol] 11 mmol/L Normal 9-18 [facility] Comment on above: Order Comment: Speci men Type: BLOOD SPECIMENOrdering Facility: [facility] Address: [address] [place] [address] Performed By: #### 2 4323-8 ####[facility] LABCLIA [id number] [place] [address] [place] AST [Catalytic activity/Vol] 75 U/L High 14-40 [facility] Comment on above: Order Comment: Speci men Type: BLOOD SPECIMENOrdering Facility: [facility] Address: [address] [place] [address] Performed By: #### 2 4323-8 ####[facility] LABCLIA [id number] [place] [address] [place] Bilirubin [Mass/Vol] 1.8 mg/dL High 0.2-1.3 [facility] Comment on above: Order Comment: Speci men Type: BLOOD SPECIMENOrdering Facility: [facility] Address: [address] Performed By: #### 2 4323-8 ####[facility] LABCLIA [id number] [place] [address] [place] Calcium [Mass/Vol] 9.6 mg/dL Normal 8.5-10.2 [facility] Comment on above: Order Comment: Speci men Type: BLOOD SPECIMENOrdering Facility: [facility] Address: [address] Performed By: #### 2 4323-8 ####[facility] LABCLIA [id number] [place] [address] [place] Chloride [Moles/Vol] 102 mmol/L Normal 97-105 [facility] Comment on above: Order Comment: Speci men Type: BLOOD SPECIMENOrdering Facility: [facility] Address: [address] Performed By: #### 2 4323-8 ####[facility] LABCLIA [id number] [place] [address] [place] CO2 [Moles/Vol] 23 mmol/L Normal 22-30 [facility] Comment on above: Order Comment: Speci men Type: BLOOD SPECIMENOrdering Facility: [facility] Address: [address] Performed By: #### 2 4323-8 ####[facility] LABCLIA [id number] [place] [address] [place] Creatinine [Mass/Vol] 1.16 mg/dL Normal 0.73-1.22 [facility] Comment on above: Order Comment: Noe [place] Type: BLOOD SPECIMENOrdering Facility: [facility] Address: [address] [place] [address] Performed By: #### 2 4323-8 ####[facility] LABIA [id number] [address] STATES OF [facility] ESTIMATED GLOMERULAR FILTRATION RATE 84 mL/min/1.73m??? Normal >=60 [facility] Comment on above: Order Comment: Noe madrid Type: BLOOD SPECIMENOrdering Facility: [facility] Address: [address] [place] [address] Result Comment: Brenda mated Glomerular Filtration Rate [...] actual GFR. Performed By: #### 2 4323-8 ####[facility] LABIA [id number] [place] [address] [place] Glucose [Mass/Vol] 170 mg/dL High 74-99 [facility] Comment on above: Order Comment: Noe [place] Type: BLOOD SPECIMENOrdering Facility: [facility] Address: [address] [place] [address] Result Comment: The [employer] [place] [employer] (ADA) provides guidance for cutoff [...] Standards of Medical Care in Diabetes 2016, [employer] [place] [employer]. Diabetes Care. 2016.39(Suppl 1). Performed By: #### 2 4323-8 ####[facility] LABCLIA [id number] [place] [address] [place] Potassium [Moles/Vol] 3.8 mmol/L Normal 3.7-5.1 [facility] Comment on above: Order Comment: Speci men Type: BLOOD SPECIMENOrdering Facility: [facility] Address: [address] [place] [address] Performed By: #### 2 4323-8 ####[facility] LABIA [id number] [place] [address] [place] Protein [Mass/Vol] 6.8 g/dL Normal 6.3-8.0 [facility] Comment on above: Order Comment: Speci men Type: BLOOD SPECIMENOrdering Facility: [facility] Address: [address] Performed By: #### 2 4323-8 ####[facility] LABIA [id number] [place] [address] [place] Sodium [Moles/Vol] 136 mmol/L Normal 136-144 [facility] Comment on above: Order Comment: Speci men Type: BLOOD SPECIMENOrdering Facility: [facility] Address: [address] Performed By: #### 2 4323-8 ####[facility] LABIA [id number] [place] [address] [place] Urea nitrogen [Mass/Vol] 11 mg/dL Normal 9-24 [facility] Comment on above: Order Comment: Speci men Type: BLOOD SPECIMENOrdering Facility: [facility] Address: [address] Performed By: #### 2 4323-8 ####[facility] LABCLIA [id number] [address] [place] NUTRITIONon 09-05-2022 NUTRITION HNO ID: [id number] Author: Gifty rAnold RD Service: Nutrition Therapy Author Type: Registered Dietitian Type: Nutrition Filed: 09/05/2022 1:39 PM Note Text: NUTRITION THERAPY INITIAL ASSESSMENT SERVICE DATE: 09/05/2022 SERVICE TIME: 10:50 am Nutrition Assessment: Recommended Malnutrition Diagnosis: No Malnutrition Identified Nutrition Diagnosis: Problem: Suboptimal protein/energy intake Related to: Unknown etiology As evidenced by: Medical condition, Intake records Estimated kilocalorie needs: 7038-6776 Calorie Calculation Method: 20-25 kcals/kg Estimated protein [...] per patient. 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 Denies [...] September 05, 2022 TIME: 1:35 PM Normal [facility] PT panel Coag (PPP)on 2022 INR Coag (PPP) [Relative time] 1.0 {INR} Normal 0.9-1.3 [facility] Comment on above: Order Comment: Speci men Type: BLOOD SPECIMEN Ordering Facility: [facility] Address: [address] [place] [phone] Result Comment: Aster min K Antagonist (VKA) Therapeutic Range: INR 2 to 3 (Target INR of 2.5) Note: For patients treated with VKA drugs, such as warfarin, the [employer] 2012 Guideline recommends [...] Chest 2012, 141:7S-47S Goldie RA, et al. JAC 2017, 70: 252-289 Performed By: #### V ITB6 #### [id number] [address] [place] [address] PT Coag (PPP) [Time] 10.8 s Normal 9.7-13.0 [facility] Comment on above: Order Comment: Noe madrid Type: BLOOD SPECIMEN Ordering Facility: [facility] Address: [address] [place] [address] Performed By: #### V ITB6 #### [facility] [id number] [address] [place] [address] Tacrolimus Bld-ncon 2022 Tacrolimus (Bld) [Mass/Vol] 8.4 ng/mL Normal 5.0-20.0 [facility] Comment on above: Order Comment: Noe mad[place] Type: BLOOD SPECIMEN Ordering Facility: [facility] Address: [address] [place] [address] Result Comment: Nannette vidualized target levels for [...] situation. Test performed by chemiluminescent immunoassay using [employer]. Performed By: #### 2 4323-8 #### [facility] CLIA [id number] [facility] [place] [address] [place] ANES POSTPROC EVALon 023 ANES POSTPROC EVAL HNO ID: [id number] Author: Lucas Moseley MD Service: ? Author Type: Anesthesiologist Type: Anesthesia Postprocedure Evaluation Filed: 09/04/2022 11:10 AM Note Text: POST ANESTHESIA EVALUATION NOTE : 1985 Procedure Summary Date: 09/04/22 Room / Location: Gastroenterology Anesthesia Start: 850 Anesthesia Stop: 1017 Procedure: EGD DIAGNOSTIC Diagnosis: (Stent removal) Scheduled Providers: Betina Quezada MD; Lucas Moseley MD; Suzie Knott APRN.PLASTICS ENGINEERING TEACHER Responsible Provider: Lucas Moseley MD Anesthesia Type: [...] September 04, 2022 TIME: 11:10 AM CSN: [id number] Normal [facility] ANES PRE-OPon 09-04-2022 ANES PRE-OP HNO ID: [id number] Author: Lucas Moseley MD Service: ? Author Type: Anesthesiologist Type: Anesthesia Preprocedure Evaluation Filed: 09/04/2022 8:14 AM Note Text: ANESTHESIOLOGY DAY OF SURGERY NOTE : 1985 Procedure Information Date/Time: 09/04/22 1300 Scheduled providers: Betina Quezada MD; Lucas Moseley MD; Suzie Knott APRN.PLASTICS ENGINEERING TEACHER Procedure: EGD DIAGNOSTIC Location: Gastroenterology Estimated body [...] and consent discussed: yes. Patient / Responsible Green Party agrees to proceed: yes Patient / Surrogate [...] 0757 Temp 36.3 ?C (97.3 ?F) 09/04/22 075 SpO2 98 % 09/04/22 0757 Facility-Administered Medications [...] administration yosef (more content not included)... Normal [facility] CBC panel Auto (Bld)on 09-04 Erythrocyte distribution width (RBC) [Ratio] 17.1 % High 11.5-15.0 [facility] Comment on above: Order Comment: Speci mercy Type: BLOOD SPECIMEN Ordering Facility: [facility] Address: [address] [place] [address] Performed By: #### 5 0189-0, , 2132-03 #### [facility] CLIA [id number] [address] [place] [address] [place] Hematocrit (Bld) [Volume fraction] 36.1 % Low 39.0-51.0 [facility] Comment on above: Order Comment: Noe madrid Type: BLOOD SPECIMEN Ordering Facility: [facility] Address: [address] [place] [address] Performed By: #### 5 0189-0, , 2132-03 #### [facility] CLIA [id number] [address] [place] [address] [place] Hemoglobin (Bld) [Mass/Vol] 12.5 g/dL Low 13.0-17.0 [facility] Comment on above: Order Comment: Louiei men Type: BLOOD SPECIMEN Ordering Facility: [facility] Address: [address] [place] [address] Performed By: #### 5 0189-0, , 2132-03 #### [facility] CLIA [id number] [address] [place] [address] OF [facility] MCH (RBC) [Entitic mass] 30.0 pg Normal 26.0-34.0 [facility] Comment on above: Order Comment: Speci men Type: BLOOD SPECIMEN Ordering Facility: [facility] Address: [address] [place], [place] [address] Performed By: #### 5 0189-0, , 2132-03 #### [facility] CLIA [id number] [address] [place] [address] [place] MCHC (RBC) [Mass/Vol] 34.6 g/dL Normal 30.5-36.0 [facility] Comment on above: Order Comment: Speci men Type: BLOOD SPECIMEN Ordering Facility: [facility] Address: [address] [place], [place] [address] Performed By: #### 5 0189-0, , 2132-03 #### [facility] CLIA [id number] [address] [place] [address] [place] MCV (RBC) [Entitic vol] 86.8 fL Normal 80.0-100.0 [facility] Comment on above: Order Comment: Speci men Type: BLOOD SPECIMEN Ordering Facility: [facility] Address: [address] [place], [place] [address] Performed By: #### 5 0189-0, , 2132-03 #### [facility] CLIA [id number] [address] [place] [address] Nucleated RBC (Bld) [#/Vol] 10*3/uL Normal <0.01 [facility] Comment on above: Order Comment: Speci men Type: BLOOD SPECIMEN Ordering Facility: [facility] Address: [address] [place] [address] Performed By: #### 5 0189-0, , 2132-03 #### [facility] CLIA [id number] [address] [place] [address] [place] Platelet mean volume (Bld) [Entitic vol] 11.8 fL Normal 9.0-12.7 [facility] Comment on above: Order Comment: Speci men Type: BLOOD SPECIMEN Ordering Facility: [facility] Address: [address] Performed By: #### 5 0189-0, , 2132-03 #### [facility] CLIA [id number] [address] [place] [address] [place] Platelets (Bld) [#/Vol] 47 10*3/uL Low 150-400 [facility] Comment on above: Order Comment: Speci men Type: BLOOD SPECIMEN Ordering Facility: [facility] Address: [address] Result Comment: Resu lts checked and verified.No clot detected. Performed By: #### 5 0189-0, , 2132-03 #### [facility] CLIA [id number] [address] [place] [address] [place] RBC (Bld) [#/Vol] 4.16 10*6/uL Low 4.20-6.00 [facility] Comment on above: Order Comment: Speci men Type: BLOOD SPECIMEN Ordering Facility: [facility] Address: [address] [place] [address] Performed By: #### 5 0189-0, , 2132-03 #### [facility] CLIA [id number] [address] [place] [address] [place] WBC (Bld) [#/Vol] 3.04 10*3/uL Low 3.70-11.00 [facility] Comment on above: Order Comment: Speci men Type: BLOOD SPECIMEN Ordering Facility: [facility] Address: [address] [place] [address] [place] [id number] Performed By: #### 5 0189-0, 67972-4, 2132-9 #### [facility] CLIA [id number] [address] [facility] DESK [id number] [place] [address] OF [facility] CNPNon 09-04-2022 CNPN Telephone (GASTPR) CHUCKIE VILLALTA ([id number]) 1985 [facility] Date Time Provider Department 09/04/22 BETINA QUEZADA GASTNJ During your visit today, we recorded the [...] 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] Order(s):ERCP [GI18] Order #: [id number] FUTURE Prescriptions as of 09/04/2022 - tacrolimus [...] Status:Closed by BETINA QUEZADA on 09/04/22 Normal [facility] COPPER BLOODon 09-04-2022 Copper [Mass/Vol] 86 ug/dL Normal 70-140 [facility] Comment on above: Order Comment: Speci men Type: BLOOD SPECIMEN Ordering Facility: [facility] Address: [address] [place] [phone] Result Comment: This test was developed and its performance characteristics determined by [facility]'s Molly [facility]Arsalan [facility] Pathology and Laboratory Medicine [facility] ([facility]). It has not been cleared or approved by the FDA. [facility] is regulated under CLIA as qualified to perform high-complexity testing. This test is used for clinical purposes. It should not be regarded as investigational or for research. Performed By: #### 5 763-8, COPPER #### [facility] CLIA [id number] [address] [place] [address] [place] Comprehensive metabolic 2000 panelon 09-04-2022 Albumin [Mass/Vol] 3.7 g/dL Low 3.9-4.9 [facility] Comment on above: Order Comment: Speci men Type: BLOOD SPECIMEN Ordering Facility: [facility] Address: [address] [place], [place] [address] Performed By: #### 2 4323-8 #### [facility] CLIA [id number] [address] [place] [address] [place] ALP [Catalytic activity/Vol] 104 U/L Normal 38-113 [facility] Comment on above: Order Comment: Speci men Type: BLOOD SPECIMEN Ordering Facility: [facility] Address: [address] [place] [address] Performed By: #### 2 4323-8 #### [facility] CLIA [id number] [address] [place] [address] [place] ALT [Catalytic activity/Vol] 101 U/L High 10-54 [facility] Comment on above: Order Comment: Speci men Type: BLOOD SPECIMEN Ordering Facility: [facility] Address: [address] [place], [place] [address] Performed By: #### 2 4323-8 #### [facility] CLIA [id number] [address] [place] [address] [place] Anion gap [Moles/Vol] 10 mmol/L Normal 9-18 [facility] Comment on above: Order Comment: Speci men Type: BLOOD SPECIMEN Ordering Facility: [facility] Address: [address] [place], [place] [address] Performed By: #### 2 4323-8 #### [facility] CLIA [id number] [address] [place] [address] [place] AST [Catalytic activity/Vol] 87 U/L High 14-40 [facility] Comment on above: Order Comment: Speci men Type: BLOOD SPECIMEN Ordering Facility: [facility] Address: [address] Performed By: #### 2 4323-8 #### [facility] CLIA [id number] [address] [place] [address] [place] Bilirubin [Mass/Vol] 3.1 mg/dL High 0.2-1.3 [facility] Comment on above: Order Comment: Speci men Type: BLOOD SPECIMEN Ordering Facility: [facility] Address: [address] Performed By: #### 2 4323-8 #### [facility] CLIA [id number] [address] [place] [address] [place] Calcium [Mass/Vol] 9.3 mg/dL Normal 8.5-10.2 [facility] Comment on above: Order Comment: Speci men Type: BLOOD SPECIMEN Ordering Facility: [facility] Address: [address] Performed By: #### 2 4323-8 #### [facility] CLIA [id number] [address] [place] [address] [place] Chloride [Moles/Vol] 101 mmol/L Normal 97-105 [facility] Comment on above: Order Comment: Speci men Type: BLOOD SPECIMEN Ordering Facility: [facility] Address: [address] [place] [address] Performed By: #### 2 4323-8 #### [facility] CLIA [id number] [address] [place] [address] [place] CO2 [Moles/Vol] 25 mmol/L Normal 22-30 [facility] Comment on above: Order Comment: Speci men Type: BLOOD SPECIMEN Ordering Facility: [facility] Address: [address] Performed By: #### 2 4323-8 #### [facility] CLIA [id number] [address] [place] [address] [place] Creatinine [Mass/Vol] 1.09 mg/dL Normal 0.73-1.22 [facility] Comment on above: Order Comment: Specjake madrid Type: BLOOD SPECIMEN Ordering Facility: [facility] Address: [address] [place] [address] Performed By: #### 2 4323-8 #### [facility] CLIA [id number] [address] [place] [address] [place] ESTIMATED GLOMERULAR FILTRATION RATE 90 mL/min/1.73m??? Normal >=60 [facility] Comment on above: Order Comment: Noe men Type: BLOOD SPECIMEN Ordering Facility: [facility] Address: [address] [place] [address] Result Comment: Brenda mated Glomerular Filtration Rate [...] GFR. Performed By: #### 2 4323-8 #### [facility] CLIA [id number] [address] [place] [address] [place] Glucose [Mass/Vol] 123 mg/dL High 74-99 [facility] Comment on above: Order Comment: Speci mercy Type: BLOOD SPECIMEN Ordering Facility: [facility] Address: [address] [place] [address] Result Comment: The [employer] [place] [employer] (ADA) provides guidance for cutoff [...] Standards of Medical Care in Diabetes 2016, [place] [employer]. Diabetes Care. 2016.39(Suppl 1). Performed By: #### 2 4323-8 #### [facility] CLIA [id number] [facility] [place] [address] [place] [place] Potassium [Moles/Vol] 4.1 mmol/L Normal 3.7-5.1 [facility] Comment on above: Order Comment: Speci men Type: BLOOD SPECIMEN Ordering Facility: [facility] Address: [address] [place] [address] Performed By: #### 2 4323-8 #### [facility] CLIA [id number] [address] [place] [address] [place] Protein [Mass/Vol] 6.7 g/dL Normal 6.3-8.0 [facility] Comment on above: Order Comment: Speci men Type: BLOOD SPECIMEN Ordering Facility: [facility] Address: [address] [place] [address] Performed By: #### 2 4323-8 #### [facility] CLIA [id number] [address] [place] [address] [place] Sodium [Moles/Vol] 136 mmol/L Normal 136-144 [facility] Comment on above: Order Comment: Speci men Type: BLOOD SPECIMEN Ordering Facility: [facility] Address: [address] Performed By: #### 2 4323-8 #### [facility] CLIA [id number] [address] [place] [address] [place] Urea nitrogen [Mass/Vol] 7 mg/dL Low 9-24 [facility] Comment on above: Order Comment: Speci men Type: BLOOD SPECIMEN Ordering Facility: [facility] Address: [address] [place], [place] [address] Performed By: #### 2 4323-8 #### [facility] CLIA [id number] [address] [facility] [place] [address] [place] FLUORO ERCP (POC) FOR DDI US E ONLYon 09-04-2022 [facility] NURSING PROGon 09-04-2022 NURSING PROG HNO ID: [id number] Author: Adeline Martínez RN Service: Nursing Author [...] RN In Department: HOSP MAIN G100 Normal [facility] PT panel Coag (PPP)on 2022 INR Coag (PPP) [Relative time] 1.1 {INR} Normal 0.9-1.3 [facility] Comment on above: Order Comment: Speci men Type: BLOOD SPECIMEN Ordering Facility: [facility] Address: [address] [place] [address] Result Comment: Aster min K Antagonist (VKA) Therapeutic Range: INR 2 to 3 (Target INR of 2.5) Note: For patients treated with VKA drugs, such as warfarin, the [employer] 2012 Guideline recommends [...] Chest 2012, 141:7S-47S Goldie RA, et al. [facility] 2017, 70: 252-289 Performed By: #### 5 763-8, COPPER #### [facility] CLIA [id number] [address] [place] [address] [place] PT Coag (PPP) [Time] 11.0 s Normal 9.7-13.0 [facility] Comment on above: Order Comment: Spec[place] Type: BLOOD SPECIMEN Ordering Facility: [facility] Address: [address] [place] [address] Performed By: #### 5 763-8, COPPER #### [facility] CLIA [id number] [address] [place] [address] [place] Tacrolimus Bld-mCncon 2022 Tacrolimus (Bld) [Mass/Vol] 10.5 ng/mL Normal 5.0-20.0 [facility] Comment on above: Order Comment: [place] Type: BLOOD SPECIMENOrdering Facility: [facility] Address: [address] [place] [address] Result Comment: Nannette vidualized target levels for [...] situation. Test performed by chemiluminescent immunoassay using [employer] i. Performed By: #### 1 1253-2 ####[facility] LABCLIA [id number] [place] [address] [place] VITAMIN B6/PYRIDOXINon 09-04 VITAMIN B6 19.3 nmol/L Low 20.0-125.0 [facility] Comment on above: Order Comment: Noe [place] Type: BLOOD SPECIMEN Ordering Facility: [facility] Address: [address] [place] [address] Result Comment: INTE RPRETIVE INFORMATION: Vitamin B6 (Pyridoxal 5-Phosphate) Pyridoxal 5'-phosphate measured in a specimen collected following an 8-hour or overnight fast accurately indicates vitamin B6 nutritional status. Non-fasting specimen concentration reflects recent vitamin intake. This test was developed and its performance characteristics determined by [employer]. It has not been cleared or approved by the [place] Food and Drug Administration. This test was performed in a CLIA certified laboratory and is intended for clinical purposes. Performed By: [employer] [address] [place] [address] Voting Machine Mechanic: Mic Rangel MD, PhD Performed By: #### V ITB6 #### [facility] CLIA [id number] [address] [place] [address] Zinc SerPl-mCncon 09-04-2022 Zinc [Mass/Vol] 57 ug/dL Low 60-120 [facility] Comment on above: Order Comment: Speci men Type: BLOOD SPECIMEN Ordering Facility: [facility] Address: [address] [place] [address] Result Comment: This test was developed and its performance characteristics determined by [facility] [place] ([facility]). It has not been cleared or approved by the FDA. [facility] is regulated under CLIA as qualified to perform high-complexity testing. This test is used for clinical purposes. It should not be regarded as investigational or for research. Performed By: #### 5 763-8, COPPER #### [facility] CLIA [id number] [address] [place] BRIEF OP NOTon 09-03-2022 BRIEF OP NOT HNO ID: [id number] Author: Howard Shepherd MD Service: Radiology Author Type: Physician Type: Brief Op Note Filed: 09/03/2022 2:51 PM Note Text: BRIEF OPERATIVE / PROCEDURE NOTE LOG ID: [id number] SURGERY/PROCEDURE DATE: 08/31/2022 - 09/03/2022 INCISION/PROCEDURE START TIME: 2:34 PM INCISION CLOSE/PROCEDURE END TIME: 2:39 PM SURGEON(S)/PROCEDURALIS T(S) AND REDUCTION FURNACE OPERATOR HELPER(S): Surgeon(s) and Role: * Howard Shepherd MD - Primary No Additional Staff SURGERY/PROCEDURE(S): [...] September 03, 2022 TIME: 2:50 PM Normal [facility] CASE MANAGEMon 09-03-2022 CASE MANAGEM HNO ID: [id number] Author: JEY Felton Service: ? Author Type: Clinical Rehabilitation Liaison Type: Care Mgt Progress Note Filed: 09/03/2022 [...] 2022 TIME: 10:03 AM PAGER/CONTACT #: Normal [facility] CBC panel Auto (Bld)on 09-03 Erythrocyte distribution width (RBC) [Ratio] 16.9 % High 11.5-15.0 [facility] Comment on above: Order Comment: Speci men Type: BLOOD SPECIMENOrdering Facility: [facility] Address: [address] [place] [address] Performed By: #### 3 1201-7, 00229-4, IPFR ####[facility]CLIA [id number] [address] [place] Hematocrit (Bld) [Volume fraction] 33.9 % Low 39.0-51.0 [facility] Comment on above: Order Comment: Speci men Type: BLOOD SPECIMENOrdering Facility: [facility] Address: [address] [place], [place] [address] Performed By: #### 3 1201-7, 37569-2, IPFR ####[facility] LABCLIA [id number] [place] [address] [place] Hemoglobin (Bld) [Mass/Vol] 12.0 g/dL Low 13.0-17.0 [facility] Comment on above: Order Comment: Speci men Type: BLOOD SPECIMENOrdering Facility: [facility] Address: [address] [place] [address] Performed By: #### 3 1201-7, 40967-7, IPFR ####[facility] LABCLIA [id number] [address] [place] MCH (RBC) [Entitic mass] 30.2 pg Normal 26.0-34.0 [facility] Comment on above: Order Comment: Speci men Type: BLOOD SPECIMENOrdering Facility: [facility] Address: [address] [place], [place] [address] Performed By: #### 3 1201-7, 21407-9, IPFR ####[facility] LABCLIA [id number] [address] [place] MCHC (RBC) [Mass/Vol] 35.4 g/dL Normal 30.5-36.0 [facility] Comment on above: Order Comment: Speci men Type: BLOOD SPECIMENOrdering Facility: [facility] Address: [address] [place], [place] [address] Performed By: #### 3 1201-7, 11275-2, IPFR ####[facility] LABCLIA [id number] [address] STATES OF [facility] MCV (RBC) [Entitic vol] 85.4 fL Normal 80.0-100.0 [facility] Comment on above: Order Comment: Speci men Type: BLOOD SPECIMENOrdering Facility: [facility] Address: [address] [place], [place] [address] Performed By: #### 3 1201-7, 46014-4, IPFR ####[facility] LABCLIA [id number] [place] [address] [place] Nucleated RBC (Bld) [#/Vol] 10*3/uL Normal <0.01 [facility] Comment on above: Order Comment: Speci men Type: BLOOD SPECIMENOrdering Facility: [facility] Address: [address] [place], [place] [address] Performed By: #### 3 1201-7, 71721-1, IPFR ####[facility] LABCLIA [id number] [place] [address] [place] Platelet mean volume (Bld) [Entitic vol] 12.1 fL Normal 9.0-12.7 [facility] Comment on above: Order Comment: Speci men Type: BLOOD SPECIMENOrdering Facility: [facility] Address: [address] [place], [place] [address] Performed By: #### 3 1201-7, 70804-2, IPFR ####[facility] LABCLIA [id number] [place] [address] [place] Platelets (Bld) [#/Vol] 39 10*3/uL Low 150-400 [facility] Comment on above: Order Comment: Speci men Type: BLOOD SPECIMENOrdering Facility: [facility] Address: [address] [place], [place] [address] Result Comment: No c lot detected. Performed By: #### 3 1201-7, 56730-6, IPFR ####[facility] LABCLIA [id number] [facility] [place] [address] [place] RBC (Bld) [#/Vol] 3.97 10*6/uL Low 4.20-6.00 [facility] Comment on above: Order Comment: Speci men Type: BLOOD SPECIMENOrdering Facility: [facility] Address: [address] [place] [address] Performed By: #### 3 1201-7, 00269-1, IPFR ####[facility] LABCLIA [id number] [address] WBC (Bld) [#/Vol] 2.84 10*3/uL Low 3.70-11.00 [facility] Comment on above: Order Comment: Speci men Type: BLOOD SPECIMENOrdering Facility: [facility] Address: [address] [place] [phone] Performed By: #### 3 1201-7, 20506-9, IPFR ####[facility] LABIA [id number] [address] CONSULTon 09-03-2022 CONSULT HNO ID: [id number] Author: Agnes Johnson DO Service: Hematology Author Type: Physician Type: Consults Filed: 09/04/2022 3:29 PM Note Text: PATIENT NAME: Chuckie Villalta CLINIC NO.: [id number] DATE OF SERVICE: September 03, 2022 PRIMARY [...] DIAGNOSTIC THAI (more content not included)... Normal [facility] Comprehensive metabolic 2000 panelon 09-03-2022 Albumin [Mass/Vol] 3.4 g/dL Low 3.9-4.9 [facility] Comment on above: Order Comment: Speci men Type: BLOOD SPECIMEN Ordering Facility: [facility] Address: [address] [place] [address] [place] [address] Performed By: #### 5 0189-0, , 2132-03 #### [facility] CLIA [id number] [address] [place] [address] [place] ALP [Catalytic activity/Vol] 99 U/L Normal 38-113 [facility] Comment on above: Order Comment: Speci men Type: BLOOD SPECIMEN Ordering Facility: [facility] Address: [address] [place], [place] [address] Performed By: #### 5 0189-0, , 2132-03 #### [facility] CLIA [id number] [address] [place] [address] [place] ALT [Catalytic activity/Vol] 113 U/L High 10-54 [facility] Comment on above: Order Comment: Speci men Type: BLOOD SPECIMEN Ordering Facility: [facility] Address: [address] [place] [address] Performed By: #### 5 0189-0, , 2132-03 #### [facility] CLIA [id number] [address] [place] [address] [place] Anion gap [Moles/Vol] 10 mmol/L Normal 9-18 [facility] Comment on above: Order Comment: Speci men Type: BLOOD SPECIMEN Ordering Facility: [facility] Address: [address] [place] [address] Performed By: #### 5 0189-0, , 2132-03 #### [facility] CLIA [id number] [address] [place] [address] [place] AST [Catalytic activity/Vol] 114 U/L High 14-40 [facility] Comment on above: Order Comment: Speci men Type: BLOOD SPECIMEN Ordering Facility: [facility] Address: [address] [place] [address] Performed By: #### 5 0189-0, , 2132-03 #### [facility] CLIA [id number] [address] [place] [id number] [place] Bilirubin [Mass/Vol] 5.9 mg/dL High 0.2-1.3 [facility] Comment on above: Order Comment: Speci men Type: BLOOD SPECIMEN Ordering Facility: [facility] Address: [address] Performed By: #### 5 0189-0, , 2132-03 #### [facility] CLIA [id number] [address] [place] [address] [place] Calcium [Mass/Vol] 8.6 mg/dL Normal 8.5-10.2 [facility] Comment on above: Order Comment: Speci men Type: BLOOD SPECIMEN Ordering Facility: [facility] Address: [address] [place], [place] [address] Performed By: #### 5 0189-0, , 2132-03 #### [facility] CLIA [id number] [address] [place] [address] [place] Chloride [Moles/Vol] 103 mmol/L Normal 97-105 [facility] Comment on above: Order Comment: Speci men Type: BLOOD SPECIMEN Ordering Facility: [facility] Address: [address] [place], [place] [address] Performed By: #### 5 0189-0, , 2132-03 #### [facility] CLIA [id number] [address] [place] [id number] [place] CO2 [Moles/Vol] 22 mmol/L Normal 22-30 [facility] Comment on above: Order Comment: Speci men Type: BLOOD SPECIMEN Ordering Facility: [facility] Address: [address] [place], [place] [address] Performed By: #### 5 0189-0, , 2132-03 #### [facility] CLIA [id number] [address] [place] [id number] [place] Creatinine [Mass/Vol] 1.15 mg/dL Normal 0.73-1.22 [facility] Comment on above: Order Comment: Noe [place] Type: BLOOD SPECIMEN Ordering Facility: [facility] Address: [address] [place] [address] Performed By: #### 5 0189-0, 69080-4, 2132-03 #### [facility] CLIA [id number] [address] [place] [address] [place] ESTIMATED GLOMERULAR FILTRATION RATE 85 mL/min/1.73m??? Normal >=60 [facility] Comment on above: Order Comment: Noe [place] Type: BLOOD SPECIMEN Ordering Facility: [facility] Address: [address] [place] [address] Result Comment: Brenda mated Glomerular Filtration Rate [...] By: #### 5 0189-0, , 2132-03 #### [facility] CLIA [id number] [address] [place] [address] [place] Glucose [Mass/Vol] 125 mg/dL High 74-99 [facility] Comment on above: Order Comment: Noe [place] Type: BLOOD SPECIMEN Ordering Facility: [facility] Address: [address] [place] [address] Result Comment: The [employer] [place] [employer] (ADA) provides guidance for cutoff [...] Standards of Medical Care in Diabetes 2016, [employer] [place] [employer]. Diabetes Care. 2016.39(Suppl 1). Performed By: #### 5 0189-0, , 2132-03 #### [facility] CLIA [id number] [address] [place] [address] [place] Potassium [Moles/Vol] 3.5 mmol/L Low 3.7-5.1 [facility] Comment on above: Order Comment: Speci men Type: BLOOD SPECIMEN Ordering Facility: [facility] Address: [address] [place] [address] Performed By: #### 5 0189-0, , 2132-03 #### [facility] CLIA [id number] [address] [place] [address] [place] Protein [Mass/Vol] 5.9 g/dL Low 6.3-8.0 [facility] Comment on above: Order Comment: Speci men Type: BLOOD SPECIMEN Ordering Facility: [facility] Address: [address] [place], [place] Performed By: #### 5 0189-0, , 2132-03 #### [facility] CLIA [id number] [address] [place] [id number] [place] Sodium [Moles/Vol] 135 mmol/L Low 136-144 [facility] Comment on above: Order Comment: Speci men Type: BLOOD SPECIMEN Ordering Facility: [facility] Address: [address] [place], [place] Performed By: #### 5 0189-0, , 2132-03 #### [facility] CLIA [id number] [address] [address] [place] Urea nitrogen [Mass/Vol] 8 mg/dL Low 9-24 [facility] Comment on above: Order Comment: Noe [place] Type: BLOOD SPECIMEN Ordering Facility: [facility] Address: [address] [place] [phone] Performed By: #### 5 0189-0, 93514-6, 2132-9 #### [facility] CLIA [id number] [address] Creatinine Unsp time (U) [Ma ss/Vol]on 09-03-2022 Creatinine (U) [Mass/Vol] 75.6 mg/dL Normal 20.0-300.0 [facility] Comment on above: Order Comment: [place]e [place] Type: BLOOD SPECIMEN Ordering Facility: [facility] Address: [address] [place] [address] Performed By: #### 5 763-8, COPPER #### [facility] CLIA [id number] [address] [place] [address] HISTORY PHYSICALon 3 HISTORY PHYSICAL HNO ID: [id number] Author: Howard Shepherd MD Service: Radiology Author [...] September 03, 2022 TIME: 12:52 PM PAGER: [phone] Normal [facility] HIV 1+2 Ab IA Qlon 3 HIV 1 and 2 Ab IA.rapid Nom Normal [facility] Comment on above: Order Comment: Speci men Type: BLOOD SPECIMENOrdering Facility: [facility] Address: [address] [place] [address] Result Comment: Test not indicated. Performed By: #### 3 1201-7, 29834-3, IPFR ####[facility] [id number] [address] OF [facility] HIV 1+2 Ab+HIV1 p24 Ag IA Ql Non-Reactive Normal Nonreactive [facility] Comment on above: Order Comment: Speci men Type: BLOOD SPECIMENOrdering Facility: [facility] Address: [address] [place] [address] Performed By: #### 3 1201-7, 11250-0, IPFR ####[facility] [id number] [address] OF [facility] HIVINT Normal [facility] Comment on above: Order Comment: Speci men Type: BLOOD SPECIMENOrdering Facility: [facility] Address: [address] [place] [address] Result Comment: No e vidence of HIV-1 or HIV-2 infection. Should recent infection be suspected, repeat testing may be considered 2-3 weeks after this draw. [place] Rev. Code 3701.243(E): This information has been [...] or diagnoses. Performed By: #### 3 1201-7, 26182-4, IPFR ####[facility] LABCLIA [id number] [address] OF [facility] IMMATURE PLATELET FRACTIONon 09-03-2022 Platelets reticulated/100 platelets Auto (Bld) 11.9 % High 0.9-7.2 [facility] Comment on above: Order Comment: Speci men Type: BLOOD SPECIMENOrdering Facility: [facility] Address: [address] [place] [address] Performed By: #### 3 1201-7, 27245-8, IPFR ####[facility] LABCLIA [id number] [address] STATES OF [facility] bilirubin panel [Ma ss/Vol]on 09-03-2022 Bilirubin [Mass/Vol] 5.7 mg/dL High 0.2-1.3 [facility] Comment on above: Order Comment: Speci men Type: BLOOD SPECIMEN Ordering Facility: [facility] Address: [address] [place], [place] [address] Performed By: #### 5 0189-0, , 2132-03 #### [facility] CLIA [id number] [address] [place] [address] Bilirubin.conjugated [Mass/Vol] 4.2 mg/dL High <0.2 [facility] Comment on above: Order Comment: Speci men Type: BLOOD SPECIMEN Ordering Facility: [facility] Address: [address] [place] [address] Performed By: #### 5 0189-0, 14661-8, 2132-03 #### [facility] CLIA [id number] [address] [place] Bilirubin.indirect [Mass/Vol] 1.5 mg/dL High <1.4 [facility] Comment on above: Order Comment: Speci men Type: BLOOD SPECIMEN Ordering Facility: [facility] Address: [address] [place] [address] Performed By: #### 5 0189-0, 62578-7, 2132-9 #### [facility] CLIA [id number] [address] [place] [address] PT EDon 09-03-2022 PT ED HNO ID: [id number] Author: Kia Lyon RN Service: Nursing Author [...] RN In Department: [facility] G100 Normal [facility] Platelets Auto (Bld) [#/Vol] on 09-03-2022 Platelets (Bld) [#/Vol] 38 10*3/uL Low 150-400 [facility] Comment on above: Order Comment: Speci men Type: BLOOD SPECIMEN Ordering Facility: [facility] Address: [address] [place] [address] Result Comment: No c lot detected. Performed By: #### 5 763-8, COPPER #### [facility] CLIA [id number] [address] [place] [address] [place] SURGICAL PATHOLOGYon 023 ADDENDUM 1: Normal [facility] Comment on above: Order Comment: Speci men Type: TISSUE SPECIMENOrdering Facility: [facility] Address: [address] [place] [address] Result Comment: This addendum is issued to [...] been determined by the performing laboratory within [facility]???s [facility] Pathology and Laboratory Medicine [place] ([facility], [facility], [facility], [facility], [facility], or [facility]) in a manner consistent with CLIA requirements. [...] at 4:39 PM Performed By: #### S ####[facility] LABCLIA [id number] [address] [place] CASE REPORT Normal [facility] Comment on above: Order Comment: Speci men Type: TISSUE SPECIMENOrdering Facility: [facility] Address: [address] [place] [address] Result Comment: Surg ical Pathology Report Case: [id number] Authorizing Provider: Howard Shepherd MD Collected: 09/03/2022 02:35 PM Ordering Location: [place] [address] Received: 09/03/2022 03:04 PM Pathologist: August Oh MD Specimen: LIVER TRANSPLANT BIOPSY Performed By: #### S ####[facility] LABCLIA [id number] [address] [place] CLINICAL HISTORY s/p liver transplant , elevated LFT's, history of rejection. Normal [facility] Comment on above: Order Comment: Speci men Type: TISSUE SPECIMENOrdering Facility: [facility] [facility] Address: [address] [address] Performed By: #### S ####[facility] LABCLIA [id number] [address] DIAGNOSIS COMMENT Normal [facility] Comment on above: Order Comment: Louiei mercy Type: TISSUE SPECIMENOrdering Facility: [facility] Address: [address] [place] [address] Result Comment: The trichrome stain confirms the [...] been determined by the performing laboratory within [facility]???s [facility] [place] ([facility], [facility], [facility], [facility], [facility], or [facility]) in a manner consistent with CLIA requirements. One or more of these tests have not been cleared or approved by the FDA. [facility] is regulated under CLIA as qualified to perform high-complexity testing. These tests are used for clinical purposes. They should not be regarded as investigational or for research. Positive and negative controls stain appropriately. Performed By: #### S ####[facility] LABCLIA [id number] [address] FINAL DIAGNOSIS Normal [facility] Comment on above: Order Comment: Speci mercy Type: TISSUE SPECIMENOrdering Facility: [facility] Address: [address] [place] [address] Result Comment: Live r allograft, approximately 4 years 2 months post-transplantation, biopsy: - Liver parenchyma with reactive/regenerative change and focal portal change, indeterminate for T-cell mediated rejection (acute cellular rejection). Performed By: #### S ####[facility] LABIA [id number] [address] FINAL PERFORMING LAB Normal [facility] Comment on above: Order Comment: Louiei mercy Type: TISSUE SPECIMENOrdering Facility: [facility] Address: [address] [place] [address] Result Comment: Diag nostic interpretation performed at [facility], [address] [address] CLIA# [id number] Voting Machine Mechanic: Jony Gallegos M.D. Performed By: #### S ####[facility] LABIA [id number] [address] GROSS DESCRIPTION Normal [facility] Comment on above: Order Comment: Noe madrid Type: TISSUE SPECIMENOrdering Facility: [facility] Address: [address] [place] [address] Result Comment: A. L IVER TRANSPLANT BIOPSY Received in formalin is one segment of cylindrical tissue measuring 1.7 x 0.1 x 0.1 cm, montanez-orange and of a soft and friable consistency. Totally submitted in one cassette. BC September 03, 2022 5:19 PM Gross examination performed at [facility], [facility] [place] [address] Performed By: #### S ####[facility] LABCLIA [id number] [place] [address] [place] Sodium ?Tm Ur-sCncon 023 Sodium Unsp time (U) [Moles/Vol] 82 mmol/L Normal 14-216 [facility] Comment on above: Order Comment: Speci men Type: BLOOD SPECIMEN [facility] Address: [address] [address] Performed By: #### 5 763-8, COPPER #### [facility] LAB CLIA [id number] [address] [place] [address] [place] TOX SCREEN ROUT URon 023 Amphetamines Confirm (U) [Mass/Vol] Negative Normal Negative [facility] Comment on above: Order Comment: Speci men Type: BLOOD SPECIMEN [facility] Address: [address] [address] Result Comment: Cuto ff threshold at 1000 ng/mL. Performed By: #### 5 763-8, COPPER #### [facility] LAB CLIA [id number] [address] [place] [address] [place] BARBITURATES, URINE Negative Normal Negative [facility] Comment on above: Order Comment: Speci men Type: BLOOD SPECIMEN [facility] Address: [address] [address] Result Comment: Cuto ff threshold at 200 ng/mL. Performed By: #### 5 763-8, COPPER #### [facility] LAB CLIA [id number] [address] [place] [address] [place] BENZODIAZEPINES, UR Negative Normal Negative [facility] Comment on above: Order Comment: Speci men Type: BLOOD SPECIMEN Order[facility] Facility: [facility] Address: [address], [place] [address] Result Comment: Cuto ff threshold at 200 ng/mL. Performed By: #### 5 763-8, COPPER #### [facility] LAB CLIA [id number] [address] [place] [address] [place] CANNABINOIDS,URINE Negative Normal Negative [facility] Comment on above: Order Comment: Speci men Type: BLOOD SPECIMEN [facility]: [facility] Address: [address] [place] [address] Result Comment: Cuto ff threshold at 50 ng/mL. Performed By: #### 5 763-8, COPPER #### [facility] LAB CLIA [id number] [address] [place] [address] [place] Cocaine Ql (U) Negative Normal Negative [facility] Comment on above: Order Comment: Speci men Type: BLOOD SPECIMEN [facility] Address: [address] [place] [address] Result Comment: Cuto ff threshold at 300 ng/mL. Performed By: #### 5 763-8, COPPER #### [facility] LAB CLIA [id number] [address] [place] [address] [place] Ethanol (U) [Mass/Vol] <11 Normal <11 [facility] Comment on above: Order Comment: Speci men Type: BLOOD SPECIMEN [facility] Address: [address] [place] [address] Performed By: #### 5 763-8, COPPER #### [facility] LAB CLIA [id number] [address] [place] [address] [place] Opiates Screen Ql (U) Positive Abnormal Negative [facility] Comment on above: Order Comment: Speci men Type: BLOOD SPECIMEN [facility] Address: [address] [place] [address] Result Comment: Cuto ff threshold at 300 ng/mL. Performed By: #### 5 763-8, COPPER #### [facility] LAB CLIA [id number] [address] [place] [address] [place] oxyCODONE cutoff Screen (U) [Mass/Vol] Negative Normal Negative [facility] Comment on above: Order Comment: Speci men Type: BLOOD SPECIMEN [facility] Address: [address] [place] [address] Result Comment: Cuto ff threshold at 100 ng/mL. Performed By: #### 5 763-8, COPPER #### [facility] LAB CLIA [id number] [address] [place] [address] [place] Phencyclidine Ql (U) Negative Normal Negative [facility] Comment on above: Order Comment: Speci men Type: BLOOD SPECIMEN [facility] Address: [address] [place] [address] Result Comment: Cuto ff threshold at 25 ng/mL. Performed By: #### 5 763-8, COPPER #### [facility] LAB CLIA [id number] [address] [place] [address] [place] TYPE + SCREENon 09-03-2022 ABO A Normal [facility] Comment on above: Order Comment: Speci men Type: BLOOD SPECIMENOrdering Facility: [facility] Address: [address] [place] [address] Performed By: #### T SCR ####[facility] BLOOD BANKCLIA [id number] [place] [address] [place] HISTORICAL AB SCR STATUS Positive Abnormal [facility] Comment on above: Order Comment: Speci men Type: BLOOD SPECIMENOrdering Facility: [facility] Address: [address] [place] [address] Performed By: #### T SCR ####[facility] BLOOD BANKCLIA [id number] [place] [address] [place] Rh Nom (Bld) Negative Normal [facility] Comment on above: Order Comment: Speci men Type: BLOOD SPECIMENOrdering Facility: [facility] Address: [address] [place] [address] Performed By: #### T SCR ####[facility] BLOOD BANKCLIA [id number] [address] [id number] [facility] TYPE AND SCREEN EXPIRATION 09/06/2022 23:59 Normal [facility] Comment on above: Order Comment: Speci men Type: BLOOD SPECIMENOrdering Facility: [facility] Address: [address] Performed By: #### T SCR ####[facility] BLOOD BANKCLIA [id number] [address] Tacrolimus Bld-mCncon 2022 Tacrolimus (Bld) [Mass/Vol] 9.2 ng/mL Normal 5.0-20.0 [facility] Comment on above: Order Comment: Noe madrid Type: BLOOD SPECIMEN [facility] Address: [address] Result Comment: Thes e reference ranges are [...] situation. Test performed by chemiluminescent immunoassay using Hoods. Performed By: #### 5 0189-0, 94719-4, 2132-9 #### [facility] LAB CLIA [id number] [address] [facility] [address] [id number] [facility] US BIOPSY LIVERon 09-03-2022 US BIOPSY LIVER * * *Final Report* * * DATE OF EXAM: Sep 03 2022 4:01PM [facility] - US BIOPSY LIVER / PROCEDURE REASON: Liver transplant [...] history of rejection. STAFF RADIOLOGIST: Dr. Shepherd REDUCTION FURNACE OPERATOR HELPER(S): None CONSENT: The risks, benefits, treatment options, [...] by the: attending radiologist, without an assistant corporate secretary. The attending radiologist performed the following procedural [...] ULTRASOUND GUIDED RANDOM LIVER TRANSPLANT BIOPSY DESCRIBED Recordings Librarian: GUILLE Transcribe Date/Time: Sep 03 2022 5:36P Dictated by : HOWARD SHEPHERD MD This examination was interpreted and the report reviewed and electronically signed by: HOWARD SHEPHERD MD on Sep 03 2022 5:38PM EST [id number] Normal [facility] Urinalysis complete panel (U )on 09-03-2022 Bilirubin Ql (U) 1+ Abnormal Negative [facility] Comment on above: Order Comment: Speci men Type: BLOOD SPECIMEN [facility] Address: [address] [place] [address] Result Comment: Sugg est correlation with clinical findings and serum bilirubin if clinically indicated. Performed By: #### 2 4323-8 #### [facility] LAB CLIA [id number] [address] [place] Clarity (Unsp spec) Clear Normal Clear [facility] Comment on above: Order Comment: Speci men Type: BLOOD SPECIMEN [facility] Address: [address] [place] [address] Performed By: #### 2 4323-8 #### [facility] LAB CLIA [id number] [address] [place] Color (U) Yellow Normal Yellow [facility] Comment on above: Order Comment: Speci men Type: BLOOD SPECIMEN [facility] Address: [address] [place] [address] Performed By: #### 2 4323-8 #### [facility] LAB CLIA [id number] [address] [place] [address] [place] Glucose Test strip (U) [Mass/Vol] Negative Normal Trace, Negative [facility] Comment on above: Order Comment: Speci men Type: BLOOD SPECIMEN [facility] Address: [address] [place] [address] Performed By: #### 2 4323-8 #### [facility] LAB CLIA [id number] [address] [place] [address] [place] Hemoglobin Ql (U) Negative Normal Negative, Trace [facility] Comment on above: Order Comment: Speci men Type: BLOOD SPECIMEN [facility] Address: [address] [place] [address] Performed By: #### 2 4323-8 #### [facility] LAB CLIA [id number] [address] [place] [address] [place] Ketones Ql (U) 1+ Abnormal Trace, Negative [facility] Comment on above: Order Comment: Speci men Type: BLOOD SPECIMEN [facility] Address: [address] [place] [address] Performed By: #### 2 4323-8 #### [facility] LAB CLIA [id number] [address] [place] [address] [place] Leukocyte esterase Test strip Ql (U) Negative Normal Negative, 25 Daniel/uL [facility] Comment on above: Order Comment: Speci men Type: BLOOD SPECIMEN [facility] Address: [address] [place] [address] Performed By: #### 2 4323-8 #### [facility] LAB CLIA [id number] [address] [place] [address] [place] Nitrite Ql (U) Negative Normal Negative [facility] Comment on above: Order Comment: Speci men Type: BLOOD SPECIMEN [facility] Address: [address] [place] [address] Performed By: #### 2 4323-8 #### [facility] LAB CLIA [id number] [address] [place] [address] [place] pH (U) 6.0 [pH] Normal 5.0-8.0 [facility] Comment on above: Order Comment: Speci men Type: BLOOD SPECIMEN [facility] Address: [address] [place] [address] Performed By: #### 2 4323-8 #### [facility] LAB CLIA [id number] [address] [place] [address] [place] Protein (U) [Mass/Vol] Trace Normal Trace , Negative [facility] Comment on above: Order Comment: Speci men Type: BLOOD SPECIMEN [facility] Address: [address] Performed By: #### 2 4323-8 #### [facility] LAB CLIA [id number] [address] [place] [address] [place] RBC LM.HPF (Urine sed) [#/Area] 0-3 /HPF Normal 0-3 /HPF [facility] Comment on above: Order Comment: Speci men Type: BLOOD SPECIMEN Order[facility] Address: [address] [place], [place] [address] Performed By: #### 2 4323-8 #### [facility] LAB CLIA [id number] [address] [place] [address] [place] Specific gravity (U) [Rel density] 1.009 Normal 1.005-1.030 [facility] Comment on above: Order Comment: Speci men Type: BLOOD SPECIMEN Order[facility] Address: [address] [place], [place] [address] Performed By: #### 2 4323-8 #### [facility] LAB CLIA [id number] [address] [place] [address] [place] Urobilinogen Ql (U) 1+ Abnormal Negative [facility] Comment on above: Order Comment: Speci men Type: BLOOD SPECIMEN Order[facility] Address: [address] [place], [place] [address] Performed By: #### 2 4323-8 #### [facility] LAB CLIA [id number] [address] [place] [address] [place] WBC LM.HPF (Urine sed) [#/Area] 0-5 /HPF Normal 0-5 /HPF [facility] Comment on above: Order Comment: Speci men Type: BLOOD SPECIMEN [facility] Address: [address] [place], [place] [address] Performed By: #### 2 4323-8 #### [facility] CLIA [id number] [address] [place] [address] [place] Vit [facility] Cobalamin (Vitamin B12) [Mass/Vol] 802 pg/mL Normal 232-1245 [facility] Comment on above: Order Comment: Speci men Type: BLOOD SPECIMEN [facility] Address: [address] [place] [address] Performed By: #### 5 0189-0, 94615-5, 2132-9 #### [facility] LAB CLIA [id number] [address] [place] ALPHA-1 ANTITRYPSIN GENOon 0 09-02-2022 HA1AT REVIEWED BY Radha [facility] Comment on above: Order Comment: Speci men Type: BLOOD SPECIMENOrdering Facility: [facility] Address: [address] [place] [address] Result Comment: [facility] a-1 Antitrypsin Genotyping Laboratory Accession Number: [id number] Result: No Variant Detected in SERPINA1 (PI*MM) [...] two most common pathogenic variants: S (c.863A>T, p.Jgh948Bqv, g.48704561), Z (c.1096G>A, p.Zhv224Kjm, g.18208922), and the rarer variants: F (c.739C>T, p.Xoh078Qdb, g.11006252), I (c.187C>T, p.Lcz53Vur, g.49540830). Limitations: This Laboratory Developed Test (LDT) is [...] developed and its performance characteristics determined by [facility]'s [facility] Pathology and Laboratory Medicine [place] ([facility]). It has not been cleared or approved by the FDA. [facility] is regulated under CLIA as certified to perform high- complexity testing. This test is used for clinical purposes. It should not be regarded as investigational or for research. Testing and interpretation performed at [facility], [address] [place] [address]. CLIA Number: [id number] References: 1) Kun RA, Manjit G, Radha ML, Alexandr M, Domingo CE, K, Tia DK, Edilma SL, Aiden JM, Luz Maria RayK, Mateusz C, Taina J. The Diagnosis and Management of Alpha-1 Antritrypsin Deficiency in the Adult. Chronic Obstr Pulm Dis. 2016 Dec 30;3:668-682. 2) Andrew JA, Vickey ON, Bossman ER, Jackson DG. a1-Antitrypsin phenotypes and associated serum protein concentrations in a large clinical population. Chest.2013 Oct;143(4):1000-8. 3) Tom A, Jalen NA, Fei CR, Fina FJ, Michel SJ, Agapito AF. Molecular characterisation of three mrznm-9-jhblnaliuls deficiency variants: proteinase inhibitor (Pi) nullcardiff (Sid966----Lkf); PiMmalton (Row69----uvvusmdv) and PiI (Poz15----Ikl). Hum Vonnie. 1989 Jun;84(1):55-8. 4) Reg EK and Kun SANTANA. Clinical practice. Alpha1-antitrypsin deficiency. N Engl J Med. 2008Jan 18;360(97)3275-53. 5) Kimi NJ, Jovan F, Lindy RA. The significance of the F variant of wkudl-5-dotdmvvtnos and unique case report of a PiFF homozygote. [facility] Pulm Med. 2014 Mar 02;14:132. 6) Luz Maria RayK, Michelle [place], and Dharmesh Rosado. Alpha-1 Antitrypsin Deficiency. 2005May 22 [Updated 2017 August 14]. In: Moises RA, Zacarias MP, Kwan TO, et al., editors. GeneReviews [Internet]. [place] ([place]): [facility], [place]; 3736-5028. Available from: http://www.ncbi.nlm.nih.gov/books/VGB8166/ As reviewed by Isabel Breaux, PhD, FACMG Performed By: #### H A1AT ####[facility] [id number] [address] [place] LENNY BY IFA WITH REFLEXon Nuclear Ab IF (S) [Titer] Negative Normal Negative [facility] Comment on above: Order Comment: Speci men Type: BLOOD SPECIMEN [facility] Address: [address] [place] [address] Result Comment: Anti -nuclear antibody test is used as an aid in diagnosis of systemic autoimmune diseases. Where positive and clinically warranted, follow-up using disease-specific testing is recommended. Low positive titers are not uncommon with advanced age, certain chronic infections, and malignancies among others. Test methodology: Indirect fluorescence immunoassay (IFA) using HEp-2 cells. Performed By: #### 5 763-8, COPPER #### [facility] LAB CLIA [id number] [address] [place] [address] [place] CBC W Ordered Manual Differe ntial panel (Bld)on 09-02-2022 Basophils (Bld) [#/Vol] 10*3/uL Normal <0.11 [facility] Comment on above: Order Comment: Speci men Type: BLOOD SPECIMENOrdering Facility: [facility] Address: [address] [place] [address] Performed By: #### S TFREV, 02392-4, [id number] ####[facility] LABCLIA [id number] [address] [place] Basophils/100 WBC (Bld) 0.2 % Normal [facility] Comment on above: Order Comment: Speci men Type: BLOOD SPECIMENOrdering Facility: [facility] Address: [address] [place] [address] Performed By: #### S TFREV, 36455-8, [id number] ####[facility] LABCLIA [id number] [address] STATES [facility] Differential cell count method Nom (Bld) Auto Normal [facility] Comment on above: Order Comment: Speci men Type: BLOOD SPECIMENOrdering Facility: [facility] Address: [address] [place] [address] Performed By: #### S TFREV, 50568-0, [id number] ####[facility] LABCLIA [id number] [place] [address] [place] Eosinophils (Bld) [#/Vol] 0.05 10*3/uL Normal <0.46 [facility] Comment on above: Order Comment: Speci men Type: BLOOD SPECIMENOrdering Facility: [facility] Address: [address] Performed By: #### S TFREV, 74029-1, [id number] ####[facility] LABCLIA [id number] [address] [place] Eosinophils/100 WBC (Bld) 1.2 % Normal [facility] Comment on above: Order Comment: Speci men Type: BLOOD SPECIMENOrdering Facility: [facility] Address: [address] [place] [address] Performed By: #### S TFRROSA, 10078-2, [id number] ####[facility] LABCLIA [id number] [place] [address] [place] Erythrocyte distribution width (RBC) [Ratio] 16.9 % High 11.5-15.0 [facility] Comment on above: Order Comment: Speci men Type: BLOOD SPECIMENOrdering Facility: [facility] Address: [address] [place], [place] [address] Performed By: #### S TFREV, 31779-1, [id number] ####[facility] LABCLIA [id number] [place] [address] [place] Hematocrit (Bld) [Volume fraction] 36.7 % Low 39.0-51.0 [facility] Comment on above: Order Comment: Speci men Type: BLOOD SPECIMENOrdering Facility: [facility] Address: [address] Performed By: #### S TFREV, 59306-4, [id number] ####[facility] LABCLIA [id number] [place] [address] [place] Hemoglobin (Bld) [Mass/Vol] 12.9 g/dL Low 13.0-17.0 [facility] Comment on above: Order Comment: Speci men Type: BLOOD SPECIMENOrdering Facility: [facility] Address: [address] [address] Performed By: #### S TFRROSA, 76843-8, [id number] ####[facility] LABCLIA [id number] [place] [address] [place] Immature granulocytes (Bld) [#/Vol] 0.05 10*3/uL Normal <0.10 [facility] Comment on above: Order Comment: Speci men Type: BLOOD SPECIMENOrdering Facility: [facility] Address: [address] [address] Performed By: #### S CECIL, 51344-4, [id number] ####[facility] LABCLIA [id number] [place] [address] [place] Immature granulocytes/100 WBC (Bld) 1.2 % Normal [facility] Comment on above: Order Comment: Speci men Type: BLOOD SPECIMENOrdering Facility: [facility] Address: [address] [address] Performed By: #### S TFRROSA, 17527-9, [id number] ####[facility] LABCLIA [id number] [place] [address] [place] Lymphocytes (Bld) [#/Vol] 0.31 10*3/uL Low 1.00-4.00 [facility] Comment on above: Order Comment: Speci men Type: BLOOD SPECIMENOrdering Facility: [facility] Address: [address] Performed By: #### S TFRROSA, 98295-3, [id number] ####[facility] LABCLIA [id number] [place] [address] [place] Lymphocytes/100 WBC (Bld) 7.4 % Normal [facility] Comment on above: Order Comment: Speci men Type: BLOOD SPECIMENOrdering Facility: [facility] Address: [address] Performed By: #### S TFREV, 15488-3, [id number] ####[facility] LABCLIA [id number] [address] [place] MCH (RBC) [Entitic mass] 30.0 pg Normal 26.0-34.0 [facility] Comment on above: Order Comment: Speci men Type: BLOOD SPECIMENOrdering Facility: [facility] Address: [address] [place], [place] [address] Performed By: #### S TFREV, 20422-7, [id number] ####[facility] LABCLIA [id number] [address] [place] MCHC (RBC) [Mass/Vol] 35.1 g/dL Normal 30.5-36.0 [facility] Comment on above: Order Comment: Speci men Type: BLOOD SPECIMENOrdering Facility: [facility] Address: [address] [place], [place] [address] Performed By: #### S TFREV, 73452-7, [id number] ####[facility] LABCLIA [id number] [place] [address] [place] MCV (RBC) [Entitic vol] 85.3 fL Normal 80.0-100.0 [facility] Comment on above: Order Comment: Speci men Type: BLOOD SPECIMENOrdering Facility: [facility] Address: [address] [place] [address] Performed By: #### S TFREV, 25529-6, [id number] ####[facility] LABCLIA [id number] [place] [address] [place] Monocytes (Bld) [#/Vol] 0.33 10*3/uL Normal <0.87 [facility] Comment on above: Order Comment: Speci men Type: BLOOD SPECIMENOrdering Facility: [facility] Address: [address] Performed By: #### S TFREV, 70997-1, [id number] ####[facility] LABCLIA [id number] [place] [address] [place] Monocytes/100 WBC (Bld) 7.9 % Normal [facility] Comment on above: Order Comment: Speci men Type: BLOOD SPECIMENOrdering Facility: [facility] Address: [address] Performed By: #### S TFREV, 94586-3, [id number] ####[facility] LABCLIA [id number] [place] [address] [place] Neutrophils (Bld) [#/Vol] 3.42 10*3/uL Normal 1.45-7.50 [facility] Comment on above: Order Comment: Speci men Type: BLOOD SPECIMENOrdering Facility: [facility] Address: [address] [place] [address] Performed By: #### S TFREV, 15454-0, [id number] ####[facility] LABCLIA [id number] [place] [address] [place] Neutrophils/100 WBC (Bld) 82.1 % Normal [facility] Comment on above: Order Comment: Speci men Type: BLOOD SPECIMENOrdering Facility: [facility] Address: [address] [place] [address] Performed By: #### S TFREV, 26982-3, [id number] ####[facility] LABCLIA [id number] [place] [address] [place] Nucleated RBC (Bld) [#/Vol] 10*3/uL Normal <0.01 [facility] Comment on above: Order Comment: Speci men Type: BLOOD SPECIMENOrdering Facility: [facility] Address: [address] [place], [place] [address] Performed By: #### S TFREV, 53677-5, [id number] ####[facility] LABCLIA [id number] [place] [address] [place] Nucleated RBC/100 WBC (Bld) [Ratio] 0.0 /100 WBC Normal [facility] Comment on above: Order Comment: Speci men Type: BLOOD SPECIMENOrdering Facility: [facility] Address: [address] [place] [address] Performed By: #### S TFRROSA, 46902-1, [id number] ####[facility] LABCLIA [id number] [place] [address] [place] Platelet mean volume (Bld) [Entitic vol] 12.1 fL Normal 9.0-12.7 [facility] Comment on above: Order Comment: Speci men Type: BLOOD SPECIMENOrdering Facility: [facility] Address: [address] [place] [address] Performed By: #### S TFRROSA, 30130-5, [id number] ####[facility] LABCLIA [id number] [place] [address] [place] Platelets (Bld) [#/Vol] 38 10*3/uL Low 150-400 [facility] Comment on above: Order Comment: Speci men Type: BLOOD SPECIMENOrdering Facility: [facility] Address: [address] [place] [address] Result Comment: No c lot detected. Performed By: #### S TFRROSA, 20390-2, [id number] ####[facility] LABCLIA [id number] [place] [address] [place] RBC (Bld) [#/Vol] 4.30 10*6/uL Normal 4.20-6.00 [facility] Comment on above: Order Comment: Speci men Type: BLOOD SPECIMENOrdering Facility: [facility] Address: [address] [place] [address] Performed By: #### S TFREV, 71644-4, [id number] ####[facility] LABCLIA [id number] [address] WBC (Bld) [#/Vol] 4.17 10*3/uL Normal 3.70-11.00 [facility] Comment on above: Order Comment: Speci men Type: BLOOD SPECIMENOrdering Facility: [facility] Address: [address] [place] [address] Performed By: #### S TFREV, 97501-0, [id number] ####[facility] LABCLIA [id number] [address] [place] CBC panel Auto (Bld)on 09-02 Erythrocyte distribution width (RBC) [Ratio] 16.5 % High 11.5-15.0 [facility] Comment on above: Order Comment: Speci men Type: BLOOD SPECIMENOrdering Facility: [facility] Address: [address] [place] [address] Performed By: #### 5 8410-2, 17412-4 ####[facility] LABIA [id number] [address] STATES [facility] Hematocrit (Bld) [Volume fraction] 35.5 % Low 39.0-51.0 [facility] Comment on above: Order Comment: Speci men Type: BLOOD SPECIMENOrdering Facility: [facility] Address: [address] [place], [place] [address] Performed By: #### 5 8410-2, 51027-0 ####[facility] LABCLIA [id number] [address] Hemoglobin (Bld) [Mass/Vol] 12.6 g/dL Low 13.0-17.0 [facility] Comment on above: Order Comment: Speci men Type: BLOOD SPECIMENOrdering Facility: [facility] Address: [address] [place] [address] Performed By: #### 5 8410-2, 72035-1 ####[facility] LABCLIA [id number] [address] [place] MCH (RBC) [Entitic mass] 29.9 pg Normal 26.0-34.0 [facility] Comment on above: Order Comment: Speci men Type: BLOOD SPECIMENOrdering Facility: [facility] Address: [address] [place], [place] Performed By: #### 5 8410-2, 14809-2 ####[facility] LABIA [id number] [address] MCHC (RBC) [Mass/Vol] 35.5 g/dL Normal 30.5-36.0 [facility] Comment on above: Order Comment: Speci men Type: BLOOD SPECIMENOrdering Facility: [facility] Address: [address] [place], [place] Performed By: #### 5 8410-2, 84514-7 ####[facility] LABIA [id number] [address] [place] MCV (RBC) [Entitic vol] 84.1 fL Normal 80.0-100.0 [facility] Comment on above: Order Comment: Speci men Type: BLOOD SPECIMENOrdering Facility: [facility] Address: [address] [place], [place] Performed By: #### 5 8410-2, 47891-5 ####[facility] LABIA [id number] [address] [place] Nucleated RBC (Bld) [#/Vol] 10*3/uL Normal <0.01 [facility] Comment on above: Order Comment: Speci men Type: BLOOD SPECIMENOrdering Facility: [facility] Address: [address] [place], [place] Performed By: #### 5 8410-2, 42514-7 ####[facility] LABIA [id number] [place] [address] [place] Platelet mean volume (Bld) [Entitic vol] 11.7 fL Normal 9.0-12.7 [facility] Comment on above: Order Comment: Speci men Type: BLOOD SPECIMENOrdering Facility: [facility] Address: [address] [place], [place] [address] Performed By: #### 5 8410-2, 02938-1 ####[facility] LABIA [id number] [place] [address] [place] Platelets (Bld) [#/Vol] 40 10*3/uL Low 150-400 [facility] Comment on above: Order Comment: Speci men Type: BLOOD SPECIMENOrdering Facility: [facility] Address: [address] [place] [address] Result Comment: Resu lts checked and verified.No clot detected. Performed By: #### 5 8410-2, 08777-8 ####[facility] [id number] [place] [address] [place] RBC (Bld) [#/Vol] 4.22 10*6/uL Normal 4.20-6.00 [facility] Comment on above: Order Comment: Speci men Type: BLOOD SPECIMENOrdering Facility: [facility] Address: [address] [place], [place] [address] Performed By: #### 5 8410-2, 63373-2 ####[facility] [id number] [place] [address] [place] WBC (Bld) [#/Vol] 4.69 10*3/uL Normal 3.70-11.00 [facility] Comment on above: Order Comment: Speci men Type: BLOOD SPECIMENOrdering Facility: [facility] Address: [address] [place], [place] [address] Performed By: #### 5 8410-2, 27842-3 ####[facility] LABCLIA [id number] [place] [address] [place] CMV DNA DETECTION AND QUANTo n 09-02-2022 CMV DNA NOLBERTO+probe Qn (P) Not detected Normal Not Detected [facility] Comment on above: Order Comment: Speci men Type: BLOOD SPECIMENOrdering Facility: [facility] Address: [address] [place], [place] [address] Performed By: #### C MVQNT ####[facility] LABCLIA [id number] [place] [address] [place] Ceruloplasmin SerPl-mCncon 0 09-02-2022 Ceruloplasmin [Mass/Vol] 17 mg/dL Normal 15-30 [facility] Comment on above: Order Comment: Speci men Type: BLOOD SPECIMEN [facility] Address: [address] [place], [place] [address] Performed By: #### V ITB6 #### [facility] CLIA [id number] [address] [place] [address] Comprehensive metabolic 2000 panelon 09-02-2022 Albumin [Mass/Vol] 3.7 g/dL Low 3.9-4.9 [facility] Comment on above: Order Comment: Speci men Type: BLOOD SPECIMEN [facility] Address: [address] Performed By: #### 5 763-8, COPPER #### [facility] LAB CLIA [id number] [facility] [place] [address] [place] ALP [Catalytic activity/Vol] 98 U/L Normal 38-113 [facility] Comment on above: Order Comment: Speci men Type: BLOOD SPECIMEN [facility] Address: [address] Performed By: #### 5 763-8, COPPER #### [facility] LAB CLIA [id number] [address] [place] [address] [place] ALT [Catalytic activity/Vol] 175 U/L High 10-54 [facility] Comment on above: Order Comment: Speci men Type: BLOOD SPECIMEN [facility] Address: [address] [place] [address] Performed By: #### 5 763-8, COPPER #### [facility] LAB CLIA [id number] [address] [place] [address] [place] Anion gap [Moles/Vol] 13 mmol/L Normal 9-18 [facility] Comment on above: Order Comment: Speci men Type: BLOOD SPECIMEN [facility] Address: [address] Performed By: #### 5 763-8, COPPER #### [facility] LAB CLIA [id number] [address] [place] [address] [place] AST [Catalytic activity/Vol] 318 U/L High 14-40 [facility] Comment on above: Order Comment: Speci men Type: BLOOD SPECIMEN [facility] Address: [address] [place] [address] Performed By: #### 5 763-8, COPPER #### [facility] LAB CLIA [id number] [address] [place] [address] [place] Bilirubin [Mass/Vol] 10.9 mg/dL High 0.2-1.3 [facility] Comment on above: Order Comment: Speci men Type: BLOOD SPECIMEN [facility] Address: [address] Performed By: #### 5 763-8, COPPER #### [facility] LAB CLIA [id number] [address] [place] [address] [place] Calcium [Mass/Vol] 8.9 mg/dL Normal 8.5-10.2 [facility] Comment on above: Order Comment: Speci men Type: BLOOD SPECIMEN [facility] Address: [address] Performed By: #### 5 763-8, COPPER #### [facility] LAB CLIA [id number] [address] [place] [address] [place] Chloride [Moles/Vol] 99 mmol/L Normal 97-105 [facility] Comment on above: Order Comment: Speci men Type: BLOOD SPECIMEN [facility] Address: [address] [place], [place] [address] Performed By: #### 5 763-8, COPPER #### [facility] LAB CLIA [id number] [address] [place] [address] [place] CO2 [Moles/Vol] 20 mmol/L Low 22-30 [facility] Comment on above: Order Comment: Speci men Type: BLOOD SPECIMEN [facility] Address: [address] [place], [place] [address] Performed By: #### 5 763-8, COPPER #### [facility] LAB CLIA [id number] [address] [place] [address] [place] Creatinine [Mass/Vol] 1.18 mg/dL Normal 0.73-1.22 [facility] Comment on above: Order Comment: Speci men Type: BLOOD SPECIMEN [facility] Address: [address] [place], [place] [address] Performed By: #### 5 763-8, COPPER #### [facility] LAB CLIA [id number] [address] [place] [address] [place] ESTIMATED GLOMERULAR FILTRATION RATE 82 mL/min/1.73m??? Normal >=60 [facility] Comment on above: Order Comment: Speci men Type: BLOOD SPECIMEN [facility] Address: [address] [place] [address] Result Comment: Brenda mated Glomerular Filtration Rate [...] Performed By: #### 5 763-8, COPPER #### [facility] LAB CLIA [id number] [address] [place] [address] [place] Glucose [Mass/Vol] 106 mg/dL High 74-99 [facility] Comment on above: Order Comment: [place]e [place] Type: BLOOD SPECIMEN [facility] Address: [address] [place] [address] Result Comment: The [place] [employer] (ADA) provides guidance for cutoff [...] Standards of Medical Care in Diabetes 2016, [employer] [place] [employer]. Diabetes Care. 2016.39(Suppl 1). Performed By: #### 5 763-8, COPPER #### [facility] LAB CLIA [id number] [address] [place] [address] [place] Potassium [Moles/Vol] 3.7 mmol/L Normal 3.7-5.1 [facility] Comment on above: Order Comment: Noe [place] Type: BLOOD SPECIMEN [facility] Address: [address] [address] Performed By: #### 5 763-8, COPPER #### [facility] LAB CLIA [id number] [address] [place] [address] [place] Protein [Mass/Vol] 6.0 g/dL Low 6.3-8.0 [facility] Comment on above: Order Comment: Speci men Type: BLOOD SPECIMEN [facility] Address: [address] [place] [address] Performed By: #### 5 763-8, COPPER #### [facility] CLIA [id number] [address] [place] [address] [place] Sodium [Moles/Vol] 132 mmol/L Low 136-144 [facility] Comment on above: Order Comment: Speci men Type: BLOOD SPECIMEN [facility] Address: [address] [place] [address] Performed By: #### 5 763-8, COPPER #### [facility] CLIA [id number] [address] [place] [address] [place] Urea nitrogen [Mass/Vol] 8 mg/dL Low 9-24 [facility] Comment on above: Order Comment: Speci men Type: BLOOD SPECIMEN [facility] Address: [address] [place] [address] Performed By: #### 5 763-8, COPPER #### [facility] CLIA [id number] [address] [place] [address] [place] EBV capsid IgM Qn (S)on EBV VCA IGM, QUAL Negative Normal Negative [facility] Comment on above: Order Comment: Speci men Type: BLOOD SPECIMENOrdering Facility: [facility] Address: [address] [place] [address] Result Comment: No s erological evidence of recent EBV infection. Performed By: #### 7 886-5, 2284-8, [id number] ####[facility] LABCLIA [id number] [place] [address] [place] CLARK IRENE PANELon 023 EBV NA AB, QUAL Positive Abnormal Negative [facility] Comment on above: Order Comment: Speci men Type: BLOOD SPECIMEN [facility] Address: [address] [place] [address] Performed By: #### 2 4323-8 #### [facility] CLIA [id number] [address] [place] [address] [place] EBV VCA IGG, QUAL Positive Abnormal Negative [facility] Comment on above: Order Comment: Speci men Type: BLOOD SPECIMEN [facility] Address: [address] [place] [address] Performed By: #### 2 4323-8 #### [facility] CLIA [id number] [address] [place] [address] [place] EBV VCA IGM, QUAL Negative Normal Negative [facility] Comment on above: Order Comment: Speci men Type: BLOOD SPECIMEN [facility] Address: [address] [place] [address] Performed By: #### 2 4323-8 #### [facility] CLIA [id number] [address] [place] [address] [place] INTERPRETATION (EBVPNL) Past Infection. EBV panel interpretation is a general guide that is meant to capture most, but not all, of the possible clinical scenarios. Non-specific reactivities are not uncommon especially with equivocal results. Should the overall interpretation not be consistent with the clinical picture, please contact the medical care evaluation specialist of the test for assistance. Normal [facility] Comment on above: Order Comment: Speci men Type: BLOOD SPECIMEN [facility] Address: [address] [place] [address] Performed By: #### 2 4323-8 #### [facility] CLIA [id number] [address] [place] [address] [place] Ferritin SerPl-mCncon 2022 Ferritin [Mass/Vol] 345.0 ng/mL Normal 30.3-565.7 [facility] Comment on above: Order Comment: Speci men Type: BLOOD SPECIMEN [facility] Address: [address] [place] [address] Performed By: #### V ITB6 #### [facility] CLIA [id number] [address] [place] [address] Fibrinogen PPP-mCncon 2022 Fibrinogen Coag (PPP) [Mass/Vol] 442 mg/dL High 200-400 [facility] Comment on above: Order Comment: Speci men Type: BLOOD SPECIMEN [facility] Address: [address] [place] [address] Performed By: #### V ITB6 #### [id number] [address] [place] [address] Folate SerPl-ncon 09-02-19 Folate [Mass/Vol] 13.7 ng/mL Normal >4.7 [facility] Comment on above: Order Comment: Speci men Type: BLOOD SPECIMENOrdering Facility: [facility] Address: [address] [place] [address] Performed By: #### 7 886-5, 2284-8, [id number] ####[facility] LABCLIA [id number] [address] OF [facility] HAV IgM Ser Qlon 09-02-2022 HAV IgM Ql (S) Negative Normal Negative [facility] Comment on above: Order Comment: Speci men Type: BLOOD SPECIMENOrdering Facility: [facility] Address: [address] [place] [address] Result Comment: No e vidence of recent infection with Hepatitis A virus. Performed By: #### 2 532-0, 5195-3, 12055-9, 52290-2 ####[facility] LABCLIA [id number] [address] [place] HBV core IgM Ser Qlon 2022 HBV core IgM Ql (S) Negative Normal Negative [facility] Comment on above: Order Comment: Speci men Type: BLOOD SPECIMENOrdering Facility: [facility] Address: [address] [place] [address] Result Comment: No e vidence of recent infection with Hepatitis B virus. Should recent infection be suspected, repeat testing may be considered 3-4 weeks after this draw. Performed By: #### 2 532-0, 5195-3, 52966-3, 03448-0 ####[facility] LABCLIA [id number] [place] [address] [place] HBV surface Ag Ser Qlon HBV surface Ag Ql (S) Negative Normal Negative [facility] Comment on above: Order Comment: Speci men Type: BLOOD SPECIMENOrdering Facility: [facility] Address: [address] [place] [address] Performed By: #### 2 532-0, 5195-3, 72814-1, 20572-5 ####[facility] LABCLIA [id number] [address] [place] HCV RNA SerPl NOLBERTO+probe-aCnc on 09-02-2022 HCV RNA NOLBERTO+probe Qn Not detected Normal HCV RNA not detected by PCR. [facility] Comment on above: Order Comment: Speci men Type: BLOOD SPECIMEN [facility] Address: [address] [place] [address] Performed By: #### 5 763-8, COPPER #### [facility] CLIA [id number] [address] OF [facility] HEP DELTA ABon 09-02-2022 HEP DELTA AB Negative Normal Negative [facility] Comment on above: Order Comment: Speci men Type: BLOOD SPECIMENOrdering Facility: [facility] Address: [address] [place] [address] Result Comment: No a ntibody to Hepatitis Delta agent was detected. Order anti-HDV testing only when Hepatitis B virus infection has been confirmed. INTERPRETIVE INFORMATION: Hepatitis Delta Ab This test was developed and its performance characteristics determined by [employer]. It has not been cleared or approved by the [place] Food and Drug Administration. This test was performed in a CLIA certified laboratory and is intended for clinical purposes. Performed by [employer], [address] [place] [address] www.[email or web address] Player, Mic Rangel MD, PHD, Lab. Director Performed By: #### A HD ####[facility] [id number] [place] [address] HEPATITIS E VIRUS ABon 09-02 HEV IGG Not detected Normal [facility] Comment on above: Order Comment: Noe [place]rid Type: BLOOD SPECIMENOrdering Facility: [facility] Address: [address] [place] [address] Performed By: #### H EPE ####[employer] [facility] [id number] HOLDEN HWDANDRE HEREDIA [facility] [address] HEV IGM Not detected Normal [facility] Comment on above: Order Comment: Noe madrid Type: BLOOD SPECIMENOrdering Facility: [facility] Address: [address] [place] [address] Result Comment: REFE RENCE RANGE: NOT DETECTED Hepatitis E virus (HEV) is a major cause of enteric non-A hepatitis worldwide. Both HEV IgM and IgG are typically detected within one month after infection; IgM persists for about two months, whereas IgG levels persist for months to years after recovery. Approximately 20% of the [place] population is positive for HEV IgG, indicating that HEV exposure is more common than previously thought. This test was developed and its analytical performance characteristics have been determined by [employer]. It has not been cleared or approved by FDA. This assay has been validated pursuant to the CLIA regulations and is used for clinical purposes. Performed By: #### H EPE ####[employer] [facility] [employer] [id number] HOLDENTattoodoANGELICA HEREDIA [place] [address] HISTORY PHYSICALon HISTORY PHYSICAL HNO ID: [id number] Author: Carolin Crawford MD Service: Hepatology Author Type: Physician Type: HANDP Filed: 09/03/2022 5:06 PM Note Text: Department of Gastroenterology AND Hepatology Initial Consult Note Date of Service: September 02, 2022 Patient: Chuckie Villalta Medical Record: [id number] Reason for Admission / Consultation: Opinion/Advice regarding [...] Camacho MD Gastroenterology AND Hepatology Fellow Pager [phone] Discussed with staff. ==== History of Present [...] malaise with nausea. No fever/chills. On Thursday, (more content not included)... Normal [facility] Haptoglob SerPl-mCncon 09-02 Haptoglobin [Mass/Vol] 36 mg/dL Normal 31-238 [facility] Comment on above: Order Comment: Noe madrid Type: BLOOD SPECIMEN [facility] Address: [address] [address] Performed By: #### 5 763-8, COPPER #### [facility] CLIA [id number] [facility] [place] [address] [place] Iron and Iron binding capaci ty panelon 09-02-2022 Iron [Mass/Vol] 26 ug/dL Low 41-186 [facility] Comment on above: Order Comment: Noe madrid Type: BLOOD SPECIMEN [facility] Address: [address] Performed By: #### V ITB6 #### [facility] CLIA [id number] [address] [place] [address] Iron binding capacity [Mass/Vol] 271 ug/dL Normal 232-386 [facility] Comment on above: Order Comment: Noe madrid Type: BLOOD SPECIMEN [facility] Address: [address] Performed By: #### V ITB6 #### [facility] CLIA [id number] [address] [place] [address] Iron/TIBC [Molar ratio] 9.6 % Low 15.0-57.0 [facility] Comment on above: Order Comment: Speci men Type: BLOOD SPECIMEN [facility] Address: [address] [place] [address] Performed By: #### V ITB6 #### [facility] CLIA [id number] [address] [place] [address] LDH SerPl-cCncon 09-02-2022 LDH [Catalytic activity/Vol] 207 U/L Normal 135-225 [facility] Comment on above: Order Comment: Speci men Type: BLOOD SPECIMENOrdering Facility: [facility] Address: [address] [place] [address] Performed By: #### 2 532-0, 5195-3, 63512-6, 29222-0 ####[facility] LABCLIA [id number] [address] Mitochondria Ab IF Ql (S)on 09-02-2022 Mitochondria M2 Ab IA Qn (S) 1.7 Units Normal <=20.0 [facility] Comment on above: Order Comment: Speci men Type: BLOOD SPECIMEN [facility] Address: [address] [place] [address] Performed By: #### 5 763-8, COPPER #### [facility] CLIA [id number] [address] [place] [address] OF [facility] Mitochondria M2 Ab Ql (S) Negative Normal Negative [facility] Comment on above: Order Comment: Speci men Type: BLOOD SPECIMEN [facility] Address: [address] [place] [address] Result Comment: Anti -mitochondrial antibody test is used as an aid in diagnosis of primary biliary cholangitis. Clinical correlation is required. Performed By: #### 5 763-8, COPPER #### [facility] CLIA [id number] [address] [place] [address] [place] NURSING PROGon 09-02-2022 NURSING PROG HNO ID: [id number] Author: Radha Mcpherson RN Service: Nursing Author [...] <1.5 Radha Mcpherson RN 3:59 PM Normal [facility] PATHOLOGIST INTERPRETATION C BC/DIFFon 09-02-2022 Director Digital Sales review Ernst (Unsp spec) [Interp] Reviewed by Flex Morataya MD Normal [facility] Comment on above: Order Comment: Speci men Type: BLOOD SPECIMENOrdering Facility: [facility] Address: [address] [place] [address] Performed By: #### S TFREV, 00503-1, [id number] ####[facility] LABCLIA [id number] [address] OF [place] STAFF REVIEW, CBCDIF Normal [facility] Comment on above: Order Comment: Speci men Type: BLOOD SPECIMENOrdering Facility: [facility] Address: [address] [place] [address] Result Comment: Norm ocytic anemia without polychromasia Absolute lymphopenia without leukopenia Thrombocytopenia Performed By: #### S TFREV, 15902-1, [id number] ####[facility] LABCLIA [id number] [address] STATES [place] PHOSPHATIDYLETHANOL (PETH)on 09-02-2022 PETH 16:0/18.2 (PLPETH) 278 ng/mL Normal [facility] Comment on above: Order Comment: Speci men Type: BLOOD SPECIMEN [facility] Address: [address] [place] [address] Result Comment: Perf ormed By: [employer] [address] [place] [address] Voting Machine Mechanic: Mic Rangel MD, PhD Performed By: #### 5 763-8, COPPER #### [facility] CLIA [id number] [address] [facility] DESK [id number] [place] [address] [place] PETH 16:0/18:1 (POPETH) 578 ng/mL Normal [facility] Comment on above: Order Comment: Speci men Type: BLOOD SPECIMEN [facility] Address: [address] [id number] Result Comment: INTE RPRETIVE INFORMATION:Phosphatidylethanol (PEth), Whole [...] Research). Test developed and characteristics determined by [employer]. See Compliance Statement B: [employer] Player/CS Performed By: #### 5 763-8, COPPER #### [facility] CLIA [id number] [address] [facility] DESK [id number] [place] [address] [place] [facility] PT panel Coag (PPP)on 2022 INR Coag (PPP) [Relative time] 1.2 {INR} Normal 0.9-1.3 [facility] Comment on above: Order Comment: Speci men Type: BLOOD SPECIMEN [facility] Address: [address] [place] [address] Result Comment: Aster min K Antagonist (VKA) Therapeutic Range: INR 2 to 3 (Target INR of 2.5) Note: For patients treated with VKA drugs, such as warfarin, the [employer] 2012 Guideline recommends [...] Chest 2012, 141:7S-47S Goldie RA, et al. [facility] 2017, 70: 252-289 Performed By: #### V ITB6 #### [facility] CLIA [id number] [address] [place] [address] PT Coag (PPP) [Time] 11.9 s Normal 9.7-13.0 [facility] Comment on above: Order Comment: Speci men Type: BLOOD SPECIMEN [facility] Address: [address] [place] [address] Performed By: #### V ITB6 #### [facility] [id number] [address] [place] [address] RBC MORPHOLOGYon 09-02-2022 Anisocytosis Ql (Bld) Present Normal [facility] Comment on above: Order Comment: Speci men Type: BLOOD SPECIMENOrdering Facility: [facility] Address: [address] [place] [address] Performed By: #### S TFREV, 76617-0, [id number] ####[facility] LABCLIA [id number] [place] [address] [place] Platelets Estimate (Bld) [#/Vol] Decreased Normal [facility] Comment on above: Order Comment: Speci men Type: BLOOD SPECIMENOrdering Facility: [facility] Address: [address] [place] [address] Performed By: #### S TFREV, 75778-6, [id number] ####[facility] LABCLIA [id number] [address] [place] RBC morphology finding Nom (Bld) Reviewed: see results of individual morphologies Normal [facility] Comment on above: Order Comment: Speci men Type: BLOOD SPECIMENOrdering Facility: [facility] Address: [address] [place], [place] [address] Performed By: #### S TFREV, 14096-9, [id number] ####[facility] LABCLIA [id number] [address] [place] Retics #on 09-02-2022 Reticulocytes (Bld) [#/Vol] 0.97775 10*3/uL Normal 0.018-0.100 [facility] Comment on above: Order Comment: Speci men Type: BLOOD SPECIMENOrdering Facility: [facility] Address: [address] [place] [address] Performed By: #### 5 8410-2, 68060-6 ####[facility] LABCLIA [id number] [place] [address] [place] Reticulocytes (Bld) [#/Vol]o n 09-02-2022 Reticulocytes/100 RBC (Bld) 1.7 % Normal 0.4-2.0 [facility] Comment on above: Order Comment: Speci men Type: BLOOD SPECIMENOrdering Facility: [facility] Address: [address] [place] [address] Performed By: #### 5 8410-2, 01933-4 ####[facility] LABIA [id number] [address] [place] Smooth muscle Ab Ql (S)on ACTIN SMOOTH MUSCLE IGG QUALITATIVE Negative Normal Negative [facility] Comment on above: Order Comment: Speci men Type: BLOOD SPECIMEN [facility] Address: [address] [place] [address] Performed By: #### 5 763-8, COPPER #### [facility] CLIA [id number] [address] [place] [address] [place] ACTIN SMOOTH MUSCLE IGG QUANTITATIVE 5 Units Normal <20 [facility] Comment on above: Order Comment: Speci men Type: BLOOD SPECIMEN [facility] Address: [address] [place] [address] Performed By: #### 5 763-8, COPPER #### [facility] CLIA [id number] [facility] [place] [address] [place] Tacrolimus Bld-mCncon 2022 Tacrolimus (Bld) [Mass/Vol] 7.4 ng/mL Normal 5.0-20.0 [facility] Comment on above: Order Comment: Speci men Type: BLOOD SPECIMENOrdering Facility: [facility] Address: [address] [place] [address] Result Comment: Thes e reference ranges are [...] Test performed by chemiluminescent immunoassay using [employer]. Performed By: #### 1 1253-2 ####[facility] LABCLIA [id number] [address] [id number] [place] US DOPPLER COMPLETEon 2022 US DOPPLER COMPLETE * * *Final Report* * * DATE OF EXAM: Sep 02 2022 3:28PM [facility] - US DOPPLER COMPLETE / PROCEDURE [...] SONOGRAPHIC APPEARANCE OF THE TRANSPLANT LIVER. SPLENOMEGALY. Recordings Librarian: GUILLE Transcribe Date/Time: Sep 02 2022 3:34P Dictated by : PAMELA SIMMONS, DO This examination was interpreted and the report reviewed and electronically signed by: KAMRON SHAH MD on Sep 02 2022 4:04PM EST [id number] Normal [facility] VARICELLA ZOSTER IGGon 09-02 VARICELLA ZOSTER IGG, QUAL Positive Normal Positive [facility] Comment on above: Order Comment: Noe madrid Type: BLOOD SPECIMENOrdering Facility: [facility] Address: [address] [address] Result Comment: The result suggests recent or past exposure to Varicella-Zoster virus or chickenpox vaccination or zoster vaccination. Positive result may also be seen due to presence of passively-transferred antibodies. Please correlate with patient's history. Performed By: #### 7 886-5, 2284-8, VZVG2 ####[facility] LABCLIA [id number] [address] OF [facility] VARICELLA ZOSTER IGMon 09-02 VARICELLA ZOSTER, IGM 0.07 ISR Normal <=0.90 [facility] Comment on above: Order Comment: Noe madrid Type: BLOOD SPECIMEN [facility] Address: [address] [address] Result Comment: Specimen is icteric. Results may [...] 12 months post-infection or immunization. Performed By: [employer] [address] [place] [address] Voting Machine Mechanic: Mic Rangel MD, PhD Performed By: #### 5 0189-0, 30166-6, 2132-9 #### [facility] CLIA [id number] [address] [facility] DESK [address] aPTT PPPon 09-02-2022 aPTT Coag (PPP) [Time] 26.0 s Normal 23.0-32.4 [facility] Comment on above: Order Comment: Speci men Type: BLOOD SPECIMEN [facility] Address: [address] [place] [address] Performed By: #### V ITB6 #### [facility] CLIA [id number] [address] [place] [address] CASE MGT INIT ASSESon 2022 CASE MGT INIT ASSES HNO ID: [id number] Author: JEY Felton Service: ? Author Type: Clinical Rehabilitation Liaison Type: Care Mgt Initial Assessment Filed: 09/01/2022 10:16 AM Note Text: CARE MANAGEMENT: ASSESSMENT AND DISCHARGE PLAN SERVICE DATE: September 01, 2022 SERVICE TIME: 10:15 AM PRIMARY CARE PHYSICIAN: Luis Abdalla DO Primary Contact: Extended Emergency Contact Information Primary Emergency Contact: Remedios Villalta Address: [address] [place] [phone] [place] [address] OF [place] Mobile Relation: Spouse ADMISSION STATUS: Inpatient Insurance Provider: MEDICARE A AND B NEEDS PRIOR TO DISCHARGE Needs Prior to Discharge: To Be Determined POTENTIAL TRANSITION PLANS Home Patient's perception of need for this admission: Pt is aware of admission and is in agreement ADVANCE DIRECTIVES Current Advance Directive: Health Care Power of Booster Station Operator In Chart: Yes Up To Date and Valid: Yes CAREGIVER ASSESSMENT Caregiver is ready, willing and able to meet the patient's needs as recommended by the inter-professional team:: Yes Name of Caregiver: Remedios Villalta [phone] Patient's transition needs and plan for meeting these needs: Pt is aware of admission and is in agreement FREEDOM OF CHOICE EXPLAINED: [place] of Choice Given: No Reason Not Given: [...] clearance for D/C SIGNATURE: Delilah Hightower MSW, RECOATING MACHINE OPERATOR PATIENT NAME: Chuckie Villalta DATE: September 01, 2022 TIME: 10:14 AM CONTACT #: Normal [facility] CBC panel Auto (Bld)on 09-01 Erythrocyte distribution width (RBC) [Ratio] 16.8 % High 11.5-15.0 [facility] Comment on above: Order Comment: Noe madrid Type: BLOOD SPECIMENOrdering Facility: [facility] Address: [address] [place] [address] Performed By: #### 5 8410-2 ####[facility] LABCLIA [id number] [place] [address] [place] Hematocrit (Bld) [Volume fraction] 37.0 % Low 39.0-51.0 [facility] Comment on above: Order Comment: Speci mercy Type: BLOOD SPECIMENOrdering Facility: [facility] Address: [address] [place] [address] Performed By: #### 5 8410-2 ####[facility] LABCLIA [id number] [address] [place] Hemoglobin (Bld) [Mass/Vol] 13.3 g/dL Normal 13.0-17.0 [facility] Comment on above: Order Comment: Speci men Type: BLOOD SPECIMENOrdering Facility: [facility] Address: [address] [place] [address] Performed By: #### 5 8410-2 ####[facility] LABIA [id number] [address] MCH (RBC) [Entitic mass] 30.1 pg Normal 26.0-34.0 [facility] Comment on above: Order Comment: Speci men Type: BLOOD SPECIMENOrdering Facility: [facility] Address: [address] [place] [address] Performed By: #### 5 8410-2 ####[facility] LABCLIA [id number] [address] STATES OF [facility] MCHC (RBC) [Mass/Vol] 35.9 g/dL Normal 30.5-36.0 [facility] Comment on above: Order Comment: Speci men Type: BLOOD SPECIMENOrdering Facility: [facility] Address: [address] [place] [address] Performed By: #### 5 8410-2 ####[facility] LABIA [id number] [address] [place] MCV (RBC) [Entitic vol] 83.7 fL Normal 80.0-100.0 [facility] Comment on above: Order Comment: Speci men Type: BLOOD SPECIMENOrdering Facility: [facility] Address: [address] [place], [place] [address] Performed By: #### 5 8410-2 ####[facility] LABCLIA [id number] [address] [place] Nucleated RBC (Bld) [#/Vol] 10*3/uL Normal <0.01 [facility] Comment on above: Order Comment: Speci men Type: BLOOD SPECIMENOrdering Facility: [facility] Address: [address] [place] [address] Performed By: #### 5 8410-2 ####[facility] LABCLIA [id number] [place] [address] [place] Platelet mean volume (Bld) [Entitic vol] 10.9 fL Normal 9.0-12.7 [facility] Comment on above: Order Comment: Speci men Type: BLOOD SPECIMENOrdering Facility: [facility] Address: [address] [place] [address] Performed By: #### 5 8410-2 ####[facility] LABIA [id number] [place] [address] [place] Platelets (Bld) [#/Vol] 56 10*3/uL Low 150-400 [facility] Comment on above: Order Comment: Speci men Type: BLOOD SPECIMENOrdering Facility: [facility] Address: [address] [place] [address] Result Comment: Resu lts checked and verified.No clot detected. Performed By: #### 5 8410-2 ####[facility] LABIA [id number] [place] [address] [place] RBC (Bld) [#/Vol] 4.42 10*6/uL Normal 4.20-6.00 [facility] Comment on above: Order Comment: Speci men Type: BLOOD SPECIMENOrdering Facility: [facility] Address: [address] [place] [address] Performed By: #### 5 8410-2 ####[facility] LABIA [id number] [place] [address] [place] WBC (Bld) [#/Vol] 5.59 10*3/uL Normal 3.70-11.00 [facility] Comment on above: Order Comment: Speci men Type: BLOOD SPECIMENOrdering Facility: [facility] Address: [address] Performed By: #### 5 8410-2 ####[facility] LABCLIA [id number] [address] OF [place] Comp Metab 2000 Pnl SerPlon 09-01-2022 Bilirubin [Mass/Vol] 8.5 mg/dL High 0.2-1.3 [facility] Comment on above: Order Comment: Speci men Type: BLOOD SPECIMEN [facility] Address: [address] Performed By: #### 5 763-8, COPPER #### [facility] CLIA [id number] [address] [place] [address] OF [facility] Comprehensive metabolic 2000 panelon 09-01-2022 Albumin [Mass/Vol] 4.0 g/dL Normal 3.9-4.9 [facility] Comment on above: Order Comment: Speci men Type: BLOOD SPECIMEN [facility] Address: [address] Performed By: #### 5 763-8, COPPER #### [facility] CLIA [id number] [address] [place] [address] [place] ALP [Catalytic activity/Vol] 65 U/L Normal 38-113 [facility] Comment on above: Order Comment: Speci men Type: BLOOD SPECIMEN [facility] Address: [address] Performed By: #### 5 763-8, COPPER #### [facility] CLIA [id number] [address] [place] [address] [place] ALT [Catalytic activity/Vol] 147 U/L High 10-54 [facility] Comment on above: Order Comment: Speci men Type: BLOOD SPECIMEN [facility] Address: [address] Performed By: #### 5 763-8, COPPER #### [facility] CLIA [id number] [address] [place] [address] [place] Anion gap [Moles/Vol] 10 mmol/L Normal 9-18 [facility] Comment on above: Order Comment: Speci men Type: BLOOD SPECIMEN Order[facility] Address: [address] [place], [place] [address] Performed By: #### 5 763-8, COPPER #### [facility] CLIA [id number] [address] [place] [address] [place] AST [Catalytic activity/Vol] 617 U/L High 14-40 [facility] Comment on above: Order Comment: Speci men Type: BLOOD SPECIMEN Ordering [facility]: [facility] Address: [address] [place], [place] [address] Performed By: #### 5 763-8, COPPER #### [facility] CLIA [id number] [address] [place] [address] [place] Calcium [Mass/Vol] 8.6 mg/dL Normal 8.5-10.2 [facility] Comment on above: Order Comment: Speci men Type: BLOOD SPECIMEN Order[facility] Address: [address] [place], [place] [address] Performed By: #### 5 763-8, COPPER #### [facility] CLIA [id number] [address] [place] [address] [place] Chloride [Moles/Vol] 102 mmol/L Normal 97-105 [facility] Comment on above: Order Comment: Speci men Type: BLOOD SPECIMEN [facility] [facility] Address: [address] [place], [place] [address] Performed By: #### 5 763-8, COPPER #### [facility] CLIA [id number] [address] [place] [address] [place] CO2 [Moles/Vol] 23 mmol/L Normal 22-30 [facility] Comment on above: Order Comment: Speci men Type: BLOOD SPECIMEN Ordering Facility: [facility] Address: [address] [address] Performed By: #### 5 763-8, COPPER #### [facility] CLIA [id number] [address] [place] [address] [place] Creatinine [Mass/Vol] 1.23 mg/dL High 0.73-1.22 [facility] Comment on above: Order Comment: Speci men Type: BLOOD SPECIMEN Ordering Facility: [facility] Address: [address] [address] Performed By: #### 5 763-8, COPPER #### [facility] CLIA [id number] [address] [place] [address] OF [facility] ESTIMATED GLOMERULAR FILTRATION RATE 78 mL/min/1.73m??? Normal >=60 [facility] Comment on above: Order Comment: Speci men Type: BLOOD SPECIMEN Ordering Facility: [facility] Address: [address] [place] [address] Result Comment: Brenda mated Glomerular Filtration Rate [...] Performed By: #### 5 763-8, COPPER #### [facility] CLIA [id number] [address] [place] [address] [place] Glucose [Mass/Vol] 131 mg/dL High 74-99 [facility] Comment on above: Order Comment: Speci men Type: BLOOD SPECIMEN Ordering Facility: [facility] Address: [address] [place], [place] [address] Result Comment: The [place] Diabetes [employer] (ADA) provides guidance for cutoff [...] Standards of Medical Care in Diabetes 2016, [employer] [place] [employer]. Diabetes Care. 2016.39(Suppl 1). Performed By: #### 5 763-8, COPPER #### [facility] CLIA [id number] [address] [place] [address] [place] Potassium [Moles/Vol] 3.7 mmol/L Normal 3.7-5.1 [facility] Comment on above: Order Comment: Speci men Type: BLOOD SPECIMEN Ordering Facility: [facility] Address: [address] Performed By: #### 5 763-8, COPPER #### [facility] CLIA [id number] [address] [place] [address] [place] Protein [Mass/Vol] 6.2 g/dL Low 6.3-8.0 [facility] Comment on above: Order Comment: Speci men Type: BLOOD SPECIMEN Ordering Facility: [facility] Address: [address] [place] [address] Performed By: #### 5 763-8, COPPER #### [facility] CLIA [id number] [address] [place] [address] [place] Sodium [Moles/Vol] 135 mmol/L Low 136-144 [facility] Comment on above: Order Comment: Speci men Type: BLOOD SPECIMEN Ordering Facility: [facility] Address: [address] Performed By: #### 5 763-8, COPPER #### [facility] CLIA [id number] [address] [place] Urea nitrogen [Mass/Vol] 11 mg/dL Normal 9-24 [facility] Comment on above: Order Comment: Speci men Type: BLOOD SPECIMEN Ordering Facility: [facility] Address: [address] [place] [address] Performed By: #### 5 763-8, COPPER #### [facility] CLIA [id number] [address] [place] ED NOTEon 09-01-2022 ED NOTE HNO ID: [id number] Author: Max Cuellar MD Service: Emergency Medicine [...] (ANC) 15.29(!) Lymph% 4.9 Abs Lymph 0.88(!) Bowman% 9.0 Abs Bowman 1.61(!) Eosin% 0.0 Abs Eosin <0.03 Baso% 0.3 Abs Baso 0.06 Immature Gran % 0.6 IMMATURE GRANS (ABS) 0.11(!) NRBC 0.0 Absolute nRBC <0.01 DTYPE Auto Leukocytosis present consistent with likely infection. No anemia or thrombocytopenia. [KO] 1924 Magnesium(!): 1.6 Low, will replace. [KO] 1925 COMP METABOLIC PANEL (BMP+LFT)(!): Protein, Total 7.7 [...] me by Dr. Dawson - liver transplant 2018, etoh abuse. October 2019 had nec pancreatitis. Still drinking. Has recurrent pancreatitis. Hepatology has refused to admit. [HJ] ED Course User Index [HJ] Adeline Elmore MD [KO] Raina Reid, Clinical Impressions as of 09/01/22 0225 Sepsis, [...] the medicine service. Max Cuellar MD Normal [facility] HISTORY PHYSICALon HISTORY PHYSICAL HNO ID: [id number] Author: Reymundo Charles MD Service: Hospital Medicine Author Type: Physician Type: HANDP Filed: 09/01/2022 12:49 AM Note Text: DEPARTMENT OF HOSPITAL MEDICINE HISTORY AND PHYSICAL EXAM SERVICE DATE: 09/01/2022 SERVICE TIME: 12:42 AM Primary Care Physician: Luis Abdalla DO NIGHT AND WEEKEND COVERAGE: Please page [phone] until 7:30am this morning. Afterwards, patient will [...] 15.29 (*) Abs Lymph 0.88 (*) Abs Bowman 1.61 (*) Abs Immature Gran 0.11 (*) All other components within normal limits Narrative: This is an appended report. These results have been appended to a previously verified report. ED BG VENOUS/LAB PANELS - Abnormal; Notable for the following components: Lactate (POCT) 4.7 (*) All other components within normal limits Narrative: Meter ID:ED Location:ED [facility], [address] [place] [address], [facility] ED BG VENOUS/LAB PANELS - Abnormal; Notable for the following components: Lactate (POCT) 2.7 (*) All other components within normal limits Narrative: Meter ID:ED Location:ED [facility], [address] [place] [address], [facility] PROTHROMBIN TIME/PT - Normal EXPEDITED COVID19 - Normal Narrative: This test has been authorized by FDA under an Emergency Use Authorization (EUA). Test performed by [facility], [facility] [place], [address] [place] [address]. LACTATE - ED (POC) LACTATE - ED [...] MEDICATIONS: Cu (more content not included)... Normal [facility] bilirubin panel [Ma ss/Vol]on 09-01-2022 Bilirubin.conjugated [Mass/Vol] 4.7 mg/dL High <0.2 [facility] Comment on above: Order Comment: Specjake madrid Type: BLOOD SPECIMEN Ordering Facility: [facility] Address: [address] [place] [address] Performed By: #### 5 763-8, COPPER #### [facility] CLIA [id number] [address] Bilirubin.indirect [Mass/Vol] 3.8 mg/dL High <1.4 [facility] Comment on above: Order Comment: Speci men Type: BLOOD SPECIMEN Ordering Facility: [facility] Address: [address] [place] [address] Performed By: #### 5 763-8, COPPER #### [facility] CLIA [id number] [address] [place] [address] [place] SEPSIS LACTATEon 09-01-2022 Lactate [Moles/Vol] 0.9 mmol/L Normal <=2.0 [facility] Comment on above: Order Comment: Speci mercy Type: BLOOD SPECIMEN Ordering Facility: [facility] Address: [address] [place] [address] Performed By: #### 5 763-8, COPPER #### [facility] CLIA [id number] [address] [place] [address] [place] US ABD RIGHT UPPER QUADRANTo n 09-01-2022 US ABD RIGHT UPPER QUADRANT * * *Final Report* * * DATE OF EXAM: Sep 01 2022 8:18PM [facility] - US ABD RIGHT UPPER QUADRANT [...] biliary ductal dilation, similar compared to 10/30/2021. Recordings Librarian: GUILLE Transcribe Date/Time: Sep 01 2022 8:45P Dictated by : MOLLY MAI MD This examination was interpreted and the report reviewed and electronically signed by: KATERIN ALY MD on Sep 01 2022 9:14PM EST [id number] Normal [facility] XR CHEST 1V FRONTAL PORTon 0 [...] Lower ACDF. IMPRESSION: No acute cardiopulmonary process. Recordings Librarian: [facility] Transcribe Date/Time: Sep 01 2022 1:11A Dictated by : GLADYS VIEYRA MD This examination was interpreted and the report reviewed and electronically signed by: GLADYS VIEYRA MD on Sep 01 2022 1:12AM EST [id number] Normal [facility] Bacteria Bld Culton 08-31-19 23 Bacteria identified Cx Nom (Bld) CULTURE, BLOOD: No growth 5 days Normal [facility] Comment on above: Performed By: #### 2 4323-8 #### [facility] CLIA [id number] [address] Bacteria identified Cx Nom (Bld) CULTURE, BLOOD: No growth 5 days Normal [facility] Comment on above: Performed By: #### 6 00-7 ####[facility]IA [id number] [address] [place] Bilirub Conj SerPl-mCncon Bilirubin.conjugated [Mass/Vol] 0.4 mg/dL High <0.2 [facility] Comment on above: Order Comment: Speci men Type: BLOOD SPECIMEN Ordering Facility: [facility] Address: [address] [place] [address] Result Comment: Resu lts may be falsely decreased due to interference from hemolysis. Suggest reorder as clinically indicated. Performed By: #### 5 763-8, COPPER #### [facility] CLIA [id number] [address] [place] [address] [place] CBC W Auto Differential pane l (Bld)on 08-31-2022 Basophils (Bld) [#/Vol] 0.06 10*3/uL Normal <0.11 [facility] Comment on above: Order Comment: Speci men Type: BLOOD SPECIMEN Ordering Facility: [facility] Address: [address] [address] Performed By: #### V ITB6 #### [facility] CLIA [id number] [address] [place] [address] Basophils/100 WBC (Bld) 0.3 % Normal [facility] Comment on above: Order Comment: Speci men Type: BLOOD SPECIMEN Ordering Facility: [facility] Address: [address] [address] Performed By: #### V ITB6 #### [facility] CLIA [id number] [address] [place] [address] Differential cell count method Nom (Bld) Auto Normal [facility] Comment on above: Order Comment: Speci men Type: BLOOD SPECIMEN Ordering Facility: [facility] Address: [address] [address] Performed By: #### V ITB6 #### [facility] CLIA [id number] [address] [place] [address] Eosinophils (Bld) [#/Vol] 10*3/uL Normal <0.46 [facility] Comment on above: Order Comment: Speci men Type: BLOOD SPECIMEN Ordering Facility: [facility] Address: [address] [address] Performed By: #### V ITB6 #### [facility] CLIA [id number] [address] [place] [address] Eosinophils/100 WBC (Bld) 0.0 % Normal [facility] Comment on above: Order Comment: Speci men Type: BLOOD SPECIMEN Ordering Facility: [facility] Address: [address] [place] [address] Performed By: #### V ITB6 #### [facility] CLIA [id number] [address] [place] [address] Erythrocyte distribution width (RBC) [Ratio] 17.9 % High 11.5-15.0 [facility] Comment on above: Order Comment: Speci men Type: BLOOD SPECIMEN Ordering Facility: [facility] Address: [address] [address] Performed By: #### V ITB6 #### [facility] CLIA [id number] [address] [place] [address] Hematocrit (Bld) [Volume fraction] 45.3 % Normal 39.0-51.0 [facility] Comment on above: Order Comment: Speci men Type: BLOOD SPECIMEN Ordering Facility: [facility] Address: [address] [address] Performed By: #### V ITB6 #### [facility] CLIA [id number] [address] [place] [address] Hemoglobin (Bld) [Mass/Vol] 16.7 g/dL Normal 13.0-17.0 [facility] Comment on above: Order Comment: Speci men Type: BLOOD SPECIMEN Ordering Facility: [facility] Address: [address] [address] Performed By: #### V ITB6 #### [facility] CLIA [id number] [address] [place] [address] Immature granulocytes (Bld) [#/Vol] 0.11 10*3/uL High <0.10 [facility] Comment on above: Order Comment: Speci men Type: BLOOD SPECIMEN Ordering Facility: [facility] Address: [address] [place] [address] Performed By: #### V ITB6 #### [facility] CLIA [id number] [address] [place] [address] Immature granulocytes/100 WBC (Bld) 0.6 % Normal [facility] Comment on above: Order Comment: Speci men Type: BLOOD SPECIMEN Ordering Facility: [facility] Address: [address] [place] [address] Performed By: #### V ITB6 #### [facility] IA [id number] [address] [place] [address] Lymphocytes (Bld) [#/Vol] 0.88 10*3/uL Low 1.00-4.00 [facility] Comment on above: Order Comment: Speci men Type: BLOOD SPECIMEN Ordering Facility: [facility] Address: [address] [address] Performed By: #### V ITB6 #### [facility] CLIA [id number] [address] [place] [address] Lymphocytes/100 WBC (Bld) 4.9 % Normal [facility] Comment on above: Order Comment: Speci men Type: BLOOD SPECIMEN Ordering Facility: [facility] Address: [address] [place] [address] Performed By: #### V ITB6 #### [facility] CLIA [id number] [address] [place] [address] MCH (RBC) [Entitic mass] 29.9 pg Normal 26.0-34.0 [facility] Comment on above: Order Comment: Speci men Type: BLOOD SPECIMEN Ordering Facility: [facility] Address: [address] [address] Performed By: #### V ITB6 #### [facility] CLIA [id number] [address] [place] [address] MCHC (RBC) [Mass/Vol] 36.9 g/dL High 30.5-36.0 [facility] Comment on above: Order Comment: Speci men Type: BLOOD SPECIMEN Ordering Facility: [facility] Address: [address] [place] [address] Performed By: #### V ITB6 #### [employer] IA [id number] [address] [place] [address] MCV (RBC) [Entitic vol] 81.2 fL Normal 80.0-100.0 [facility] Comment on above: Order Comment: Speci men Type: BLOOD SPECIMEN Ordering Facility: [facility] Address: [address] [address] Performed By: #### V ITB6 #### [employer] IA [id number] [address] [place] [address] Monocytes (Bld) [#/Vol] 1.61 10*3/uL High <0.87 [facility] Comment on above: Order Comment: Speci men Type: BLOOD SPECIMEN Ordering Facility: [facility] Address: [address] [address] Performed By: #### V ITB6 #### [facility] CLIA [id number] [address] [place] [address] Monocytes/100 WBC (Bld) 9.0 % Normal [facility] Comment on above: Order Comment: Speci men Type: BLOOD SPECIMEN Ordering Facility: [facility] Address: [address] [place] [address] Performed By: #### V ITB6 #### [facility] CLIA [id number] [address] [place] [address] Neutrophils (Bld) [#/Vol] 15.29 10*3/uL High 1.45-7.50 [facility] Comment on above: Order Comment: Speci men Type: BLOOD SPECIMEN Ordering Facility: [facility] Address: [address] [address] Performed By: #### V ITB6 #### [facility] CLIA [id number] [address] [place] [address] Neutrophils/100 WBC (Bld) 85.2 % Normal [facility] Comment on above: Order Comment: Speci men Type: BLOOD SPECIMEN Ordering Facility: [facility] Address: [address] [place] [address] Performed By: #### V ITB6 #### [facility] CLIA [id number] [address] [place] [address] Nucleated RBC (Bld) [#/Vol] 10*3/uL Normal <0.01 [facility] Comment on above: Order Comment: Speci men Type: BLOOD SPECIMEN Ordering Facility: [facility] Address: [address] [place] [address] Performed By: #### V ITB6 #### [employer] CLIA [id number] [address] [place] [address] Nucleated RBC/100 WBC (Bld) [Ratio] 0.0 /100 WBC Normal [facility] Comment on above: Order Comment: Speci men Type: BLOOD SPECIMEN Ordering Facility: [facility] Address: [address] [address] Performed By: #### V ITB6 #### [facility] CLIA [id number] [address] [place] [address] Platelet mean volume (Bld) [Entitic vol] 10.8 fL Normal 9.0-12.7 [facility] Comment on above: Order Comment: Speci men Type: BLOOD SPECIMEN Ordering Facility: [facility] Address: [address] [address] Performed By: #### V ITB6 #### [facility] CLIA [id number] [address] [place] [address] Platelets (Bld) [#/Vol] 164 10*3/uL Normal 150-400 [facility] Comment on above: Order Comment: Speci men Type: BLOOD SPECIMEN Ordering Facility: [facility] Address: [address] [place] [address] Performed By: #### V ITB6 #### [facility] CLIA [id number] [address] [place] [address] RBC (Bld) [#/Vol] 5.58 10*6/uL Normal 4.20-6.00 [facility] Comment on above: Order Comment: Speci men Type: BLOOD SPECIMEN Ordering Facility: [facility] Address: [address] [place] [address] Performed By: #### V ITB6 #### [facility] [id number] [address] [place] [address] WBC (Bld) [#/Vol] 17.95 10*3/uL High 3.70-11.00 [facility] Comment on above: Order Comment: Speci men Type: BLOOD SPECIMEN Ordering Facility: [facility] Address: [address] [place] [address] Performed By: #### V ITB6 #### [id number] [address] [place] [address] CT ABD/PEL W IVCONon 023 CT ABD/PEL W IVCON * * *Final Report* * * DATE OF EXAM: Aug 31 2022 7:24PM [facility] 0530 - CT ABD/PEL W IVCON / [...] Tissues: No significant finding. Lower thorax: Unremarkable. Wanigan Clerk (topogram) images: No additional findings. IMPRESSION: ACUTE EDEMATOUS PANCREATITIS. NO FLUID COLLECTIONS. Recordings Librarian: PSCB Transcribe Date/Time: Aug 31 2022 7:29P Dictated by : RADHA FRANCO MD This examination was interpreted and the report reviewed and electronically signed by: LAQUITA NUÑEZ MD on Aug 31 2022 8:01PM EST [id number] Normal [facility] Comprehensive metabolic 2000 panelon 08-31-2022 Albumin [Mass/Vol] 5.0 g/dL High 3.9-4.9 [facility] Comment on above: Order Comment: Speci men Type: BLOOD SPECIMENOrdering Facility: [facility] Address: [address] [address] Performed By: #### 2 4323-8, 27357-0, 0-3, 51107-6, 42396-5 ####[facility] LABCLIA [id number] [place] [address] [place] ALP [Catalytic activity/Vol] 64 U/L Normal 38-113 [facility] Comment on above: Order Comment: Speci men Type: BLOOD SPECIMENOrdering Facility: [facility] Address: [address] [address] Performed By: #### 2 4323-8, 70401-5, 0-3, 28993-0, 46124-2 ####[facility] LABIA [id number] [place] [address] [place] ALT [Catalytic activity/Vol] 21 U/L Normal 10-54 [facility] Comment on above: Order Comment: Speci men Type: BLOOD SPECIMENOrdering Facility: [facility] Address: [address] [place] [address] Performed By: #### 2 4323-8, 78502-0, 0-3, 84353-7, 72113-1 ####[facility] LABCLIA [id number] [place] [address] [place] Anion gap [Moles/Vol] 21 mmol/L High 9-18 [facility] Comment on above: Order Comment: Speci men Type: BLOOD SPECIMENOrdering Facility: [facility] Address: [address] [address] Performed By: #### 2 4323-8, 62960-6, 0-3, 85725-4, 84146-2 ####[facility] LABCLIA [id number] [place] [address] [place] AST [Catalytic activity/Vol] 31 U/L Normal 14-40 [facility] Comment on above: Order Comment: Speci men Type: BLOOD SPECIMENOrdering Facility: [facility] Address: [address] [place] [address] Performed By: #### 2 4323-8, 83364-7, 3040-3, 90488-3, 33557-4 ####[facility] LABCLIA [id number] [place] [address] [place] Bilirubin [Mass/Vol] 4.1 mg/dL High 0.2-1.3 [facility] Comment on above: Order Comment: Speci men Type: BLOOD SPECIMENOrdering Facility: [facility] Address: [address] [place] [address] Performed By: #### 2 4323-8, 28771-9, 3040-3, 57371-4, 30322-4 ####[facility] LABCLIA [id number] [place] [address] [place] Calcium [Mass/Vol] 10.1 mg/dL Normal 8.5-10.2 [facility] Comment on above: Order Comment: Speci men Type: BLOOD SPECIMENOrdering Facility: [facility] Address: [address] [place] [address] Performed By: #### 2 4323-8, 59179-9, 3040-3, 01745-9, 82819-7 ####[facility] LABCLIA [id number] [place] [address] [place] Chloride [Moles/Vol] 95 mmol/L Low 97-105 [facility] Comment on above: Order Comment: Speci men Type: BLOOD SPECIMENOrdering Facility: [facility] Address: [address] [place] [address] Performed By: #### 2 4323-8, 70814-9, 3040-3, 55673-5, 94970-4 ####[facility] LABCLIA [id number] [place] [address] [place] CO2 [Moles/Vol] 21 mmol/L Low 22-30 [facility] Comment on above: Order Comment: Speci men Type: BLOOD SPECIMENOrdering Facility: [facility] Address: [address] [place] [address] Performed By: #### 2 4323-8, 25515-2, 3040-3, 54675-3, 66381-0 ####[facility] LABCLIA [id number] [place] [id number] [place] Creatinine [Mass/Vol] 1.66 mg/dL High 0.73-1.22 [facility] Comment on above: Order Comment: Speci men Type: BLOOD SPECIMENOrdering Facility: [facility] Address: [address] [place] [address] Performed By: #### 2 4323-8, 91830-6, 3040-3, 34363-9, 62068-4 ####[facility] LABCLIA [id number] [place] [id number] [place] ESTIMATED GLOMERULAR FILTRATION RATE 54 mL/min/1.73m??? Low >=60 [facility] Comment on above: Order Comment: Speci men Type: BLOOD SPECIMENOrdering Facility: [facility] Address: [address] [place] [address] Result Comment: Brenda mated Glomerular Filtration Rate [...] actual GFR. Performed By: #### 2 4323-8, 13883-4, 3040-3, 65926-9, 02153-2 ####[facility] LABCLIA [id number] [place] [id number] [place] Glucose [Mass/Vol] 129 mg/dL High 74-99 [facility] Comment on above: Order Comment: Speci men Type: BLOOD SPECIMENOrdering Facility: [facility] Address: [place] [address] Result Comment: The [place] [employer] (ADA) provides guidance for cutoff [...] Standards of Medical Care in Diabetes 2016, [employer] [place] [employer]. Diabetes Care. 2016.39(Suppl 1). Performed By: #### 2 4323-8, 85889-5, 3040-3, 15477-0, 03920-5 ####[facility] LABCLIA [id number] [address] [address] [place] Potassium [Moles/Vol] 4.0 mmol/L Normal 3.7-5.1 [facility] Comment on above: Order Comment: Speci men Type: BLOOD SPECIMENOrdering Facility: [facility] Address: [place] [address] Performed By: #### 2 4323-8, 39101-7, 3040-3, 96290-9, 18052-9 ####[facility] LABCLIA [id number] [address] [address] [place] Protein [Mass/Vol] 7.7 g/dL Normal 6.3-8.0 [facility] Comment on above: Order Comment: Speci men Type: BLOOD SPECIMENOrdering Facility: [facility] Address: [place] [address] Performed By: #### 2 4323-8, 47866-3, 3040-3, 19481-0, 37291-3 ####[facility] LABIA [id number] [place] [id number] [place] Sodium [Moles/Vol] 137 mmol/L Normal 136-144 [facility] Comment on above: Order Comment: Speci men Type: BLOOD SPECIMENOrdering Facility: [facility] Address: [address] [place] [address] Performed By: #### 2 4323-8, 15873-4, 3040-3, 07632-5, 48632-5 ####[facility] [id number] [place] [id number] [place] Urea nitrogen [Mass/Vol] 18 mg/dL Normal 9-24 [facility] Comment on above: Order Comment: Speci men Type: BLOOD SPECIMENOrdering Facility: [facility] Address: [address] [place] [address] Performed By: #### 2 4323-8, 97994-8, 3040-3, 26907-0, 80672-6 ####[facility] [id number] [place] [id number] [place] [facility] ED NOTEon 08-31-2022 ED NOTE HNO ID: [id number] Author: Lorena Unger RN Service: Emergency Medicine [...] three days either due to vomiting. Normal [facility] ED NOTE HNO ID: [id number] Author: Reyes Schaefer RN Service: Emergency Medicine Author Type: Registered Nurse Type: ED Notes Filed: 08/31/2022 7:10 PM Note Text: Report given to BATOOL Rebollar Normal [facility] ED NOTE HNO ID: [id number] Author: Reyes Schaefer RN Service: Emergency Medicine [...] sating 100% RA. Pt hypertensive 200/96. Normal [facility] ED PROV NOTEon 08-31-2022 ED PROV NOTE HNO ID: [id number] Author: Ranjit Dawson MD Service: Emergency Medicine [...] components with (more content not included)... Normal [facility] Lipase SerPl-cCncon 08-31-19 23 Lipase [Catalytic activity/Vol] 894 U/L High 16-61 [facility] Comment on above: Order Comment: Noe [place] Type: BLOOD SPECIMEN [facility] Address: [address] [place] [address] Performed By: #### 5 763-8, COPPER #### [facility] LAB CLIA [id number] [address] [place] [address] [place] Magnesium SerPl-mCncon 08-31 Magnesium [Mass/Vol] 1.6 mg/dL Low 1.7-2.3 [facility] Comment on above: Order Comment: Noe [place] Type: BLOOD SPECIMENOrdering Facility: [facility] Address: [address] [place] [address] Performed By: #### 2 4323-8, 75111-1, 3040-3, 23343-0, 42166-7 ####[facility] LABCLIA [id number] [place] [address] [place] PT panel Coag (PPP)on 2022 INR Coag (PPP) [Relative time] 1.2 {INR} Normal 0.9-1.3 [facility] Comment on above: Order Comment: Speci men Type: BLOOD SPECIMEN [facility] Address: [address] [place] [address] Result Comment: Aster min K Antagonist (VKA) Therapeutic Range: INR 2 to 3 (Target INR of 2.5) Note: For patients treated with VKA drugs, such as warfarin, the [employer] 2012 Guideline recommends [...] Chest 2012, 141:7S-47S Goldie RA, et al. [facility] 2017, 70: 252-289 Performed By: #### 5 0189-0, 58604-9, 2132-9 #### [facility] LAB CLIA [id number] [address] [place] [address] [place] PT Coag (PPP) [Time] 12.7 s Normal 9.7-13.0 [facility] Comment on above: Order Comment: Specjake men Type: BLOOD SPECIMEN [facility] Address: [address] Performed By: #### 5 0189-0, 16309-9, 2132-9 #### [facility] LAB CLIA [id number] [address] [place] [address] [place] Procalcitonin SerPl-mCncon 0 08-31-2022 Procalcitonin [Mass/Vol] ng/mL Normal <0.09 [facility] Comment on above: Order Comment: Specjake madrid Type: BLOOD SPECIMEN [facility] Address: [address] [place] [place] [address] Result Comment: For a guided interpretation of test results, please visit the Change in Procalcitonin Calculator, [email or web address]. Performed By: #### 5 763-8, COPPER #### [facility] LAB CLIA [id number] [address] [place] [address] [place] SARS-CoV-2 RNA Resp Ql NOLBERTO+p robeon 08-31-2022 SARS-CoV-2 (COVID-19) RNA NOLBERTO+probe Ql (Resp) COVID 19 RESULT: Not detected The method used is RT-PCR or an equivalent NAAT method. Reference Range(the expected result in uninfected individuals): Not detected Normal [facility] Comment on above: Performed By: #### 2 4323-8 #### [facility] LAB CLIA [id number] [address] [place] [address] [place] Tacrolimus Bld-mCncon 2022 Tacrolimus (Bld) [Mass/Vol] 7.5 ng/mL Normal 5.0-20.0 [facility] Comment on above: Order Comment: Noe [place] Type: BLOOD SPECIMEN [facility] Address: [address] [place] [address] Result Comment: Thes e reference ranges are [...] Test performed by chemiluminescent immunoassay using [employer]. Performed By: #### V ITB6 #### [facility] CLIA [id number] [address] [place] [address] Tacrolimus (Bld) [Mass/Vol] 7.3 ng/mL Normal 5.0-20.0 [facility] Comment on above: Order Comment: Noe [place] Type: BLOOD SPECIMEN [facility] Address: [address] [place] [address] Result Comment: Thes e reference ranges are [...] Test performed by chemiluminescent immunoassay using [employer]. Performed By: #### 2 4323-8 #### [facility] LAB CLIA [id number] [address] [place] [address] [place] CBC W Auto Differential pane l (Bld)on 07-07-2022 Basophils (Bld) [#/Vol] 10*3/uL Normal <0.11 [facility] Comment on above: Order Comment: Noe mad[place] Type: BLOOD SPECIMEN [facility] Address: [address] [place] [address] Performed By: #### 5 0189-0, 08543-5, 2132-9 #### [facility] LAB CLIA [id number] [address] [place] [address] [place] Basophils/100 WBC (Bld) 0.2 % Normal [facility] Comment on above: Order Comment: Noe [place] Type: BLOOD SPECIMEN [facility] Address: [address] [place] [address] Performed By: #### 5 0189-0, , 2132-03 #### [facility] LAB CLIA [id number] [address] [place] [address] [place] Differential cell count method Nom (Bld) Auto Normal [facility] Comment on above: Order Comment: Speci men Type: BLOOD SPECIMEN [facility] Address: [address] [place], [place] [address] Performed By: #### 5 0189-0, , 2132-03 #### [facility] LAB CLIA [id number] [address] [place] [address] [place] Eosinophils (Bld) [#/Vol] 0.10 10*3/uL Normal <0.46 [facility] Comment on above: Order Comment: Speci men Type: BLOOD SPECIMEN [facility] Address: [address] [place] [address] Performed By: #### 5 0189-0, , 2132-03 #### [facility] LAB CLIA [id number] [address] [place] [address] [place] Eosinophils/100 WBC (Bld) 2.0 % Normal [facility] Comment on above: Order Comment: Speci men Type: BLOOD SPECIMEN [facility] Address: [address] [place] [address] Performed By: #### 5 0189-0, , 2132-03 #### [facility] LAB CLIA [id number] [address] [place] [address] [place] Erythrocyte distribution width (RBC) [Ratio] 12.9 % Normal 11.5-15.0 [facility] Comment on above: Order Comment: Speci men Type: BLOOD SPECIMEN [facility] Address: [address] [place] [address] Performed By: #### 5 0189-0, , 2132-03 #### [facility] LAB CLIA [id number] [address] [place] [address] [place] Hematocrit (Bld) [Volume fraction] 39.1 % Normal 39.0-51.0 [facility] Comment on above: Order Comment: Speci men Type: BLOOD SPECIMEN [facility] Address: [address] [place] [address] Performed By: #### 5 0189-0, , 2132-03 #### [facility] LAB CLIA [id number] [address] [place] [address] [place] Hemoglobin (Bld) [Mass/Vol] 13.3 g/dL Normal 13.0-17.0 [facility] Comment on above: Order Comment: Speci men Type: BLOOD SPECIMEN [facility] Address: [address] [place] [address] Performed By: #### 5 0189-0, , 2132-03 #### [facility] LAB CLIA [id number] [address] [place] [address] [place] Immature granulocytes (Bld) [#/Vol] 0.03 10*3/uL Normal <0.10 [facility] Comment on above: Order Comment: Speci men Type: BLOOD SPECIMEN [facility] Address: [address] [place] [address] Performed By: #### 5 0189-0, , 2132-03 #### [facility] LAB CLIA [id number] [address] [place] [address] [place] Immature granulocytes/100 WBC (Bld) 0.6 % Normal [facility] Comment on above: Order Comment: Speci men Type: BLOOD SPECIMEN [facility] Address: [address] [place] [address] Performed By: #### 5 0189-0, , 2132-03 #### [facility] LAB CLIA [id number] [address] [place] [address] [place] Lymphocytes (Bld) [#/Vol] 0.36 10*3/uL Low 1.00-4.00 [facility] Comment on above: Order Comment: Speci men Type: BLOOD SPECIMEN [facility] Address: [address] [place] [address] Performed By: #### 5 0189-0, , 2132-03 #### [facility] LAB CLIA [id number] [address] [place] [address] [place] Lymphocytes/100 WBC (Bld) 7.3 % Normal [facility] Comment on above: Order Comment: Speci men Type: BLOOD SPECIMEN [facility] Address: [address] [place] [address] Performed By: #### 5 0189-0, , 2132-03 #### [facility] LAB CLIA [id number] [address] [place] [address] [place] MCH (RBC) [Entitic mass] 31.1 pg Normal 26.0-34.0 [facility] Comment on above: Order Comment: Speci men Type: BLOOD SPECIMEN [facility] Address: [address] [place] [address] Performed By: #### 5 0189-0, , 2132-03 #### [facility] LAB CLIA [id number] [address] [place] [address] [place] MCHC (RBC) [Mass/Vol] 34.0 g/dL Normal 30.5-36.0 [facility] Comment on above: Order Comment: Speci men Type: BLOOD SPECIMEN [facility] Address: [address] [place], [place] [address] Performed By: #### 5 0189-0, , 2132-03 #### [facility] LAB CLIA [id number] [address] [place] [address] [place] MCV (RBC) [Entitic vol] 91.6 fL Normal 80.0-100.0 [facility] Comment on above: Order Comment: Speci men Type: BLOOD SPECIMEN [facility] Address: [address] [place] [address] Performed By: #### 5 0189-0, , 2132-03 #### [facility] LAB CLIA [id number] [address] [place] [address] [place] Monocytes (Bld) [#/Vol] 0.55 10*3/uL Normal <0.87 [facility] Comment on above: Order Comment: Speci men Type: BLOOD SPECIMEN [facility] Address: [address] [place] [address] Performed By: #### 5 0189-0, , 2132-03 #### [facility] LAB CLIA [id number] [address] [place] [address] [place] Monocytes/100 WBC (Bld) 11.1 % Normal [facility] Comment on above: Order Comment: Speci men Type: BLOOD SPECIMEN [facility] Address: [address] [place] [address] Performed By: #### 5 0189-0, , 2132-03 #### [facility] CLIA [id number] [address] [place] [address] [place] Neutrophils (Bld) [#/Vol] 3.89 10*3/uL Normal 1.45-7.50 [facility] Comment on above: Order Comment: Speci men Type: BLOOD SPECIMEN [facility] Address: [address] [place], [place] [address] Performed By: #### 5 0189-0, , 2132-03 #### [facility] LAB CLIA [id number] [address] [place] [address] [place] Neutrophils/100 WBC (Bld) 78.8 % Normal [facility] Comment on above: Order Comment: Speci men Type: BLOOD SPECIMEN [facility] Address: [address] [place] [address] Performed By: #### 5 0189-0, 33823-2, 2132-03 #### [facility] LAB CLIA [id number] [address] [place] [address] [place] Nucleated RBC (Bld) [#/Vol] 10*3/uL Normal <0.01 [facility] Comment on above: Order Comment: Speci men Type: BLOOD SPECIMEN [facility] Address: [address] [place] [address] Performed By: #### 5 0189-0, , 2132-03 #### [facility] CLIA [id number] [address] [place] [address] [place] Nucleated RBC/100 WBC (Bld) [Ratio] 0.0 /100 WBC Normal [facility] Comment on above: Order Comment: Speci men Type: BLOOD SPECIMEN [facility] Address: [address] [place] [address] Performed By: #### 5 0189-0, , 2132-03 #### [facility] CLIA [id number] [address] [place] [address] [place] Platelet mean volume (Bld) [Entitic vol] 12.4 fL Normal 9.0-12.7 [facility] Comment on above: Order Comment: Speci men Type: BLOOD SPECIMEN [facility] Address: [address] [place] [address] Performed By: #### 5 0189-0, 34056-6, 2132-03 #### [facility] CLIA [id number] [address] [place], [place] [address] [place] Platelets (Bld) [#/Vol] 76 10*3/uL Low 150-400 [facility] Comment on above: Order Comment: Speci men Type: BLOOD SPECIMEN [facility] Address: [address] [place] [address] Result Comment: Resu lts checked and verified.No clot detected. Performed By: #### 5 0189-0, 46266-4, 2132-03 #### [facility] CLIA [id number] [address] [place] [address] [place] RBC (Bld) [#/Vol] 4.27 10*6/uL Normal 4.20-6.00 [facility] Comment on above: Order Comment: Speci men Type: BLOOD SPECIMEN [facility] Address: [address] [place] [address] Performed By: #### 5 0189-0, 13394-7, 2132-03 #### [facility] CLIA [id number] [address] [place] [address] [place] WBC (Bld) [#/Vol] 4.94 10*3/uL Normal 3.70-11.00 [facility] Comment on above: Order Comment: Speci men Type: BLOOD SPECIMEN [facility] Address: [address] [place] [address] Performed By: #### 5 0189-0, 00299-6, 2132-03 #### [facility] CLIA [id number] [address] [place] [address] [place] Comprehensive metabolic 2000 panelon 07-07-2022 Albumin [Mass/Vol] 4.6 g/dL Normal 3.9-4.9 [facility] Comment on above: Order Comment: Speci men Type: BLOOD SPECIMENOrdering Facility: [facility] Address: [address] [place] [address] Performed By: #### 2 4323-8, 2323-08, ####[facility] LABCLIA [id number] [facility] [place] [address] [place]#### 84408-7 ####[facility] LABCLIA [id number] [facility] [address] [address] [place] [facility] LABORATORYCLIA [id number] [place] [address] [place] ALP [Catalytic activity/Vol] 59 U/L Normal 38-113 [facility] Comment on above: Order Comment: Speci men Type: BLOOD SPECIMENOrdering Facility: [facility] Address: [address] [place] [address] Performed By: #### 2 4323-8, 2323-08, ####[facility] LABCLIA [id number] [place] [address] [place]#### 95359-9 ####[facility] LABCLIA [id number] [place] [id number] [place] [facility] LABORATORYCLIA [id number] [place] [address] [place] ALT [Catalytic activity/Vol] 46 U/L Normal 10-54 [facility] Comment on above: Order Comment: Speci men Type: BLOOD SPECIMENOrdering Facility: [facility] Address: [address] [place] [address] Performed By: #### 2 4323-8, 2323-08, ####[facility] LABCLIA [id number] [place] [id number] [place]#### 88811-0 ####[facility] LABCLIA [id number] [address] [address] [place] [facility] LABORATORYCLIA [id number] [place] [address] [place] Anion gap [Moles/Vol] 13 mmol/L Normal 9-18 [facility] Comment on above: Order Comment: Speci men Type: BLOOD SPECIMENOrdering Facility: [facility] Address: [address] [place] [address] Performed By: #### 2 4323-8, 2323-2, ####[facility] LABCLIA [id number] [place] [address] [place]#### 64992-5 ####[facility] LABCLIA [id number] [address] LABORATORYCLIA [id number] [place] [address] [place] AST [Catalytic activity/Vol] 30 U/L Normal 14-40 [facility] Comment on above: Order Comment: Speci men Type: BLOOD SPECIMENOrdering Facility: [facility] Address: [address] [place], [place] [address] Performed By: #### 2 4323-8, 2, ####[facility] LABCLIA [id number] [place] [address] [place]#### 20631-7 ####[facility] LABCLIA [id number] [address] [place] LABORATORYCLIA [id number] [place] [address] [place] Bilirubin [Mass/Vol] 0.9 mg/dL Normal 0.2-1.3 [facility] Comment on above: Order Comment: Speci men Type: BLOOD SPECIMENOrdering Facility: [facility] Address: [address] Performed By: #### 2 4323-8, 2323-2, ####[facility] LABCLIA [id number] [place] [address] [place]#### 05560-7 ####[facility] LABCLIA [id number] [place] [id number] [facility] [place] LABORATORYCLIA [id number] [place] [address] [place] Calcium [Mass/Vol] 9.7 mg/dL Normal 8.5-10.2 [facility] Comment on above: Order Comment: Speci men Type: BLOOD SPECIMENOrdering Facility: [facility] Address: [address] [place] [address] Performed By: #### 2 4323-8, 2323-08, ####[facility] LABCLIA [id number] [place] [address] [place]#### 64565-5 ####[facility] LABCLIA [id number] [address] STATES OF [facility] LABORATORYCLIA [id number] [place] [address] [place] Chloride [Moles/Vol] 104 mmol/L Normal 97-105 [facility] Comment on above: Order Comment: Speci men Type: BLOOD SPECIMENOrdering Facility: [facility] Address: [address] [place] [id number] Performed By: #### 2 4323-8, 2323-08, ####[facility] LABCLIA [id number] [address] [address] [place]#### 16978-4 ####[facility] LABCLIA [id number] [address] [address] [place] [facility] [place] LABORATORYCLIA [id number] [place] [address] [place] CO2 [Moles/Vol] 24 mmol/L Normal 22-30 [facility] Comment on above: Order Comment: Speci men Type: BLOOD SPECIMENOrdering Facility: [facility] Address: [address] [facility] [place] [id number] Performed By: #### 2 4323-8, 4-2, ####[facility] LABCLIA [id number] [place] [address] [place]#### 26255-8 ####[facility] LABCLIA [id number] [address] [place] LABORATORYCLIA [id number] [address] [place] Creatinine [Mass/Vol] 1.14 mg/dL Normal 0.73-1.22 [facility] Comment on above: Order Comment: Speci men Type: BLOOD SPECIMENOrdering Facility: [facility] Address: [address] [facility] [place] Performed By: #### 2 4323-8, 2323-2, ####[facility] LABCLIA [id number] [address] [place]#### 94712-7 ####[facility] LABCLIA [id number] [address] LABORATORYCLIA [id number] [address] STATES [facility] ESTIMATED GLOMERULAR FILTRATION RATE 85 mL/min/1.73m??? Normal >=60 [facility] Comment on above: Order Comment: Speci men Type: BLOOD SPECIMENOrdering Facility: [facility] Address: [place] [address] Result Comment: Brenda mated Glomerular Filtration Rate [...] GFR. Performed By: #### 2 4323-8, 4-2, ####[facility] LABCLIA [id number] [address] [address] [place]#### 20801-9 ####[facility] LABCLIA [id number] [place] [id number] [facility] LABORATORYCLIA [id number] [place] [address] [place] Glucose [Mass/Vol] 109 mg/dL High 74-99 [facility] Comment on above: Order Comment: Speci men Type: BLOOD SPECIMENOrdering Facility: [facility] Address: [address] [place] [address] Result Comment: The [employer] [place] [employer] (ADA) provides guidance for cutoff [...] Standards of Medical Care in Diabetes 2016, [employer] [place] [employer]. Diabetes Care. 2016.39(Suppl 1). Performed By: #### 2 4323-8, 2323-2, ####[facility] [employer] LABCLIA [id number] [address] [address] [place]#### 71827-9 ####[facility] LABIA [id number] [address] [address] [facility] LABORATORYCLIA [id number] [place] [address] [place] Potassium [Moles/Vol] 4.3 mmol/L Normal 3.7-5.1 [facility] Comment on above: Order Comment: Speci men Type: BLOOD SPECIMENOrdering Facility: [facility] Address: [address] [address] Performed By: #### 2 4323-8, 2323-2, ####[facility] LABCLIA [id number] [facility] [place] [address] [place]#### 87371-8 ####[facility] LABCLIA [id number] [address] LABORATORYCLIA [id number] [place] [address] [place] Protein [Mass/Vol] 7.6 g/dL Normal 6.3-8.0 [facility] Comment on above: Order Comment: Speci men Type: BLOOD SPECIMENOrdering Facility: [facility] Address: [address] [place], [place] [address] Performed By: #### 2 4323-8, 2323-08, ####[facility] LABCLIA [id number] [place] [address] [place]#### 11529-8 ####[facility] LABCLIA [id number] [address] [facility] LABORATORYCLIA [id number] [place] [address] [place] Sodium [Moles/Vol] 141 mmol/L Normal 136-144 [facility] Comment on above: Order Comment: Speci men Type: BLOOD SPECIMENOrdering Facility: [facility] Address: [address] Performed By: #### 2 4323-8, 2323-2, ####[facility] LABCLIA [id number] [place] [address] [place]#### 30559-2 ####[facility] LABCLIA [id number] [address] LABORATORYCLIA [id number] [place] [address] [place] Urea nitrogen [Mass/Vol] 21 mg/dL Normal 9-24 [facility] Comment on above: Order Comment: Speci men Type: BLOOD SPECIMENOrdering Facility: [facility] Address: [address] Performed By: #### 2 4323-8, 2323-2, ####[facility] LABCLIA [id number] [place] [address] [place]#### 98179-0 ####[facility] LABCLIA [id number] [address] LABORATORYCLIA [id number] [place] [address] [place] [facility]2022 Gamma glutamyl transferase [Catalytic activity/Vol] 54 U/L Normal 10-70 [facility] Comment on above: Order Comment: Speci men Type: BLOOD SPECIMENOrdering Facility: [facility] Address: [address] [place] [address] Performed By: #### 2 4323-8, 2323-2, ####[facility] LABCLIA [id number] [place] [address] [place]#### 79223-7 ####[facility] LABCLIA [id number] [address] [address] [place] [facility] LABORATORYCLIA [id number] [place] [address] [place] Lipid 1996 panelon 2 Cholesterol [Mass/Vol] 180 mg/dL Normal <200 [facility] Comment on above: Order Comment: Speci men Type: BLOOD SPECIMENOrdering Facility: [facility] Address: [address] [place] [address] Result Comment: <200 mg/dL, Desirable 200-239 mg/dL, Borderline high >239 mg/dL, High Performed By: #### 2 4323-8, 2324-2, ####[facility] LABCLIA [id number] [address] [place]#### [address]-6 ####[facility] LABCLIA [id number] [address] OF [facility] LABORATORYCLIA [id number] [address] OF [facility] Cholesterol in HDL [Mass/Vol] 36 mg/dL Low >39 [facility] Comment on above: Order Comment: Speci men Type: BLOOD SPECIMENOrdering Facility: [facility] Address: [address] [place], [place] [address] Result Comment: 40-5 9 mg/dL, Acceptable >59 mg/dL, High: Negative risk factor for coronary heart disease <40 mg/dL, Low: Positive risk factor for coronary heart disease Performed By: #### 2 4323-8, 4-2, ####[facility] LABCLIA [id number] [address] [place]#### [address]-5 ####[facility] LABCLIA [id number] [address] [place] LABORATORYCLIA [id number] [address] OF [facility] Cholesterol in LDL [Mass/Vol] 106 mg/dL High <100 [facility] Comment on above: Order Comment: Speci men Type: BLOOD SPECIMENOrdering Facility: [facility] Address: [address] [place] [address] Result Comment: <100 mg/dL, Optimal 100-129 mg/dL, Near optimal/above optimal 130-159 mg/dL, Borderline high 160-189 mg/dL, High >189 mg/dL, Very high Secondary prevention optimal LDL Cholesterol levels are recommended to be < 70 mg/dL Performed By: #### 2 4323-8, 2323-2, ####[facility] LABCLIA [id number] [address] [address] [place]#### 19936-5 ####[facility] LABIA [id number] [address] LABORATORYIA [id number] [address] STATES OF [facility] Cholesterol in LDL/Cholesterol in HDL [Mass ratio] 2.94 {ratio} High <2.54 [facility] Comment on above: Order Comment: Speci men Type: BLOOD SPECIMENOrdering Facility: [facility] Address: [address] [address] Result Comment: Refe rence: 1. National Cholesterol Education Program ATP III Guideline At-A-Glance Quick Desk Reference: National Heart, Lung, and Blood Pierron. National Institutes of Health. 2001: NIH Publication No. 01-3305. 2. An International Atherosclerosis Society position paper: global recommendations for the management of dyslipidemia: executive summary, Atherosclerosis. 2014: 232(2):410-413. Performed By: #### 2 4323-8, 2323-2, ####[facility] LABCLIA [id number] [place] [id number] [place]#### 214[address]-0 ####[facility] LABIA [id number] [address] [id number] [facility] LABORATORYCLIA [id number] [place] [address] [place] [facility] Cholesterol in VLDL [Mass/Vol] 38 mg/dL High <30 [facility] Comment on above: Order Comment: Speci men Type: BLOOD SPECIMENOrdering Facility: [facility] Address: [address] [address] Performed By: #### 2 4323-8, 2324-2, ####[facility] LABCLIA [id number] [address] [place]#### [address]-5 ####[facility] LABCLIA [id number] [address] STATES OF [facility] LABORATORYCLIA [id number] [address] [place] Cholesterol non HDL [Mass/Vol] 144 mg/dL High <130 [facility] Comment on above: Order Comment: Speci men Type: BLOOD SPECIMENOrdering Facility: [facility] Address: [address] [place], [place] [address] Result Comment: <130 mg/dL, Optimal 130-159 mg/dL, Near optimal/above optimal 160-189 mg/dL, Borderline high 190-219 mg/dL, High >219 mg/dL, Very high Secondary prevention optimal non HDL Cholesterol levels are recommended to be <100 mg/dL Performed By: #### 2 4323-8, 2324-2, ####[facility] LABCLIA [id number] [place] [address] [place]#### 49064-6 ####[facility] LABCLIA [id number] [address] [id number] [place] [facility] LABORATORYCLIA [id number] [place] [address] [place] Cholesterol.total/Chol esterol in HDL [Mass ratio] 5.00 {ratio} Normal <5.10 [facility] Comment on above: Order Comment: Speci men Type: BLOOD SPECIMENOrdering Facility: [facility] Address: [address] Performed By: #### 2 3-8, 2323-2, ####[facility] LABCLIA [id number] [place] [address] [place]#### 30548-8 ####[facility] LABCLIA [id number] [address] [place] LABORATORYCLIA [id number] [address] [place] FASTING TIME 1 hrs Normal [facility] Comment on above: Order Comment: Speci men Type: BLOOD SPECIMENOrdering Facility: [facility] Address: [address] [place] [address] Result Comment: veronica ent had lunch Performed By: #### 2 4322-8, 2323-08, ####[facility] LABCLIA [id number] [place] [address] [place]#### 18204-9 ####[facility] LABCLIA [id number] [address] LABORATORYCLIA [id number] [address] STATES [facility] Triglyceride [Mass/Vol] 190 mg/dL High <150 [facility] Comment on above: Order Comment: Speci men Type: BLOOD SPECIMENOrdering Facility: [facility] Address: [address] [place] [address] Result Comment: <150 mg/dL, Normal 150-199 mg/dL, Borderline high 200-499 mg/dL, High >499 mg/dL, Very high Performed By: #### 2 3-8, 2, ####[facility] LABCLIA [id number] [facility] [place] [address] [place]#### 658[address]-5 ####[facility] LABCLIA [id number] [address] [place] LABORATORYCLIA [id number] [place] [address] [place] Magnesium SerPl-ncon 07-07 Magnesium [Mass/Vol] 1.7 mg/dL Normal 1.7-2.3 [facility] Comment on above: Order Comment: Speci men Type: BLOOD SPECIMENOrdering Facility: [facility] Address: [address] [place] [address] Performed By: #### 2 4323-8, 2324-2, 68317-6 ####[facility] LABCLIA [id number] [place] [address] [place]#### 14544-1 ####[facility] LABCLIA [id number] [address] [place] LABORATORYCLIA [id number] [address] [place] [id number] [place] Phosphate SerPl-ncon 07-07 Phosphate [Mass/Vol] 3.6 mg/dL Normal 2.7-4.8 [facility] Comment on above: Order Comment: [place] Type: BLOOD SPECIMENOrdering Facility: [facility] Address: [address] [place] [address] Performed By: #### 2 777-1 ####[facility] LABCLIA [id number] [place] [address] [place] Tacrolimus Bld-mCncon 2021 Tacrolimus (Bld) [Mass/Vol] 3.0 ng/mL Low 5.0-20.0 [facility] Comment on above: Order Comment: [place] Type: BLOOD SPECIMEN [facility] Address: [address] [place] [address] Result Comment: Thes e reference ranges are [...] Test performed by chemiluminescent immunoassay using [employer]. Performed By: #### V ITB6 #### [facility] [employer] CLIA [id number] [address] [place] [address] CNPLuh 03-24-2022 CNPN Telephone (TXCTMN) CHUCKIE VILLALTA ([id number]) 1985 M [facility] Date Time Provider Department 03/24/22 NADJA SPENCER TXCTMN During your visit today, we recorded the following information about you: Nadja Spencer RN 03/24/2022 1:18 PM Signed I sent patient a reminder to have lab work drawn as soon as possible as he has not had labs drawn in some time. Encouraged him to reach out with questions. Nadja Spencer (Cassie) RN, BSN Liver Wet [employer]k [employer] Allergies As of Date: 03/24/2022 Noted Allergy Reaction PENICILLINS 16 - Unknown Comments: Skin test positive 09/01/18 MIDAZOLAM 02/18/2021 14 - Other: See Comments SEASONAL ALLERGIES 06/29/2018 16 - Unknown Date Reviewed: 12/27/2021 Reviewed by: Carlos uMñoz RN - Fully Assessed Reason for Visit: Reminder To Have Labs Drawn [7305] Prescriptions as of 03/24/2022 - iv contrast [...] Encounter Status:Closed by NADJA SPENCER on 03/24/22 [facility] CNOVon 02-25-2022 CNOV Office Visit (PSCHL) CHUCKIE VILLALTA ([id number]) 1985 M TRN Date Time Provider Department 02/25/22 9:00 AM ROSEMARIE SHEPARD During your visit today, we recorded the following information about you: SHAQ Chua 02/25/2022 10:46 AM Signed [facility] Assessment Visit Type:Virtual Visit utilizing two-way audio and video for at least a portion of the visit IDENTIFYING INFORMATION: [phone] [email or web address] Lives with of nine years, Екатерина and [...] consented to virtual evaluation. Patient and this marketing copywriter present during interview. PRECIPITATING PROBLEM(S):Patient was dx with liver disease in 2017. Completed an IOP at [facility] in summer 2018, and received liver transplant [...] Age 16, every other weekend. Went [place] drank heavily on weekends, then turned 21 [...] was intend (more content not included)... Normal [facility] CT ABDOMEN W IVCONon 022 [facility] Basic Metabolic Panlon 07-12 Anion gap [Moles/Vol] 8 mmol/L Low 9-18 [facility] Calcium [Mass/Vol] 8.6 mg/dL Normal 8.5-10.2 [facility] Chloride [Moles/Vol] 103 mmol/L Normal 97-105 [facility] CO2 [Moles/Vol] 24 mmol/L Normal 22-30 [facility] Creatinine [Mass/Vol] 2.67 mg/dL High 0.73-1.22 [facility] eGFR- Amer. 33 Normal [facility] eGFR-All Other Races 27 . Normal [facility] Comment on above: Result Comment: eGFR [...] [email or web address]. Glucose [Mass/Vol] 113 mg/dL High 74-99 [facility] Comment on above: Result Comment: The [place] Diabetes Association (ADA) provides guidance for cutoff [...] Standards of Medical Care in Diabetes 2016, [place] Diabetes Association. Diabetes Care. 2016.39(Suppl 1). Potassium [Moles/Vol] 3.3 mmol/L Low 3.7-5.1 [facility] Sodium [Moles/Vol] 135 mmol/L Low 136-144 [facility] Urea nitrogen [Mass/Vol] 11 mg/dL Normal 9-24 [facility] CASE MANAGEMon 07-12-2021 CASE MANAGEM HNO ID: [id number] Author: Nanette Dangelo RN Service: ? Author [...] 12, 2021 TIME: 4:48 PM PAGER/CONTACT #: [facility] 07-12-2021 [facility] HNO ID: [id number] Author: [place] MD Service: Hospital Medicine [...] GI team [facility] at this time planning [...] 1.3. He was seen by infectious disease oracle application consultant today who recommended adding G6PD to [...] specialist. You were also seen by pain head of talent management while you are in the hospital. I have not added any pain medications due to near complete resolution of symptoms. You were seen by neurologist recently for the patient's symptoms. They will follow up as an outpatient also. Please follow-up with primary MD in 1 week Follow-up with transplant team at the earliest available appointment-marketing traffic coordinator has promised to set up an [...] identified Vision (more content not included)... Normal [facility] CONSULTon 07-12-2021 CONSULT HNO ID: [id number] Author: Latrell Cabello MD Service: Infectious Disease [...] tablet (BACTRIM DS,SEPTRA DS) 1 tablet ORAL --FR - ursodiol 300 mg cap(s) (ACTIGALL) 300 [...] Smoking status: Nev (more content not included)... [facility] CONSULT PROGon 07-12-2021 CONSULT PROG HNO ID: [id number] Author: Justin Glasgow PA-C Service: Pain Management Author Type: Physician Securities Consultant Type: Consult Progress Note Filed: 07/12/2021 4:02 [...] Pain scores overnight between 4-8/10 per Vital Wanigan Clerk. The patient's current inpatient analgesic regimen has [...] tablet (BACTRIM DS,SEPTRA DS) 1 tablet ORAL -WE- - [Held on Transfer - Suspended Admission] [...] in no acute distress, well-hydrated, well nourished. Justin Glasgow MPAS, PA-C July 12, 2021 4:01 PM [facility] CONSULT PROG HNO ID: [id number] Author: Spike Gandara MD Service: Nephrology Author Type: Physician Type: Consult Progress Note Filed: 07/12/2021 12:22 PM Note Text: [facility] NEPHROLOGY CONSULT PROGRESS NOTE SERVICE DATE: July [...] DATE: July 12, 2021 12:22 PM PHONE: [phone] FOR AFTER HOUR CONCERNS BETWEEN 7PM - 7AM CONTACT ON-CALL NEPHROLOGY STAFF Normal [facility] Hepatic Functn Panelon 07-12 Albumin [Mass/Vol] 3.0 g/dL Low 3.9-4.9 [facility] ALP [Catalytic activity/Vol] 292 U/L High 38-113 [facility] ALT [Catalytic activity/Vol] 44 U/L Normal 10-54 [facility] AST [Catalytic activity/Vol] 129 U/L High 14-40 [facility] Bilirubin [Mass/Vol] 1.6 mg/dL High 0.2-1.3 [facility] Bilirubin,Conjugated 1.0 mg/dL High <0.2 [facility] Protein [Mass/Vol] 5.7 g/dL Low 6.3-8.0 [facility] NURSING PROGon 07-12-2021 NURSING PROG HNO ID: [id number] Author: Marcela Mcdaniel RN Service: Nursing Author Type: Registered Nurse Type: Nursing Progress Note Filed: 07/12/2021 1:03 AM Note Text: Nursing Progress Note Patient Name: Chuckie Villalta [facility] Daily Note: Report received from BATOOL Nolan. Pt resting comfortably in bed. Will continue to monitor. This note was completed by: Marcela Mcdaniel [facility] Tacrolimus / [id number] 021 Tacrolimus / [id number] 7.7 ng/mL Normal 5.0-20.0 [facility] Comment on above: Result Comment: Thes [...] situation. Test performed by chemiluminescent immunoassay using [employer]. Performed By: #### F K506 ####[facility] [place], [place] [id number] Amylaseon 07-11-2021 Amylase [Catalytic activity/Vol] 59 U/L Normal 30-104 [facility] Basic Metabolic Panlon 07-11 Anion gap [Moles/Vol] 10 mmol/L Normal 9-18 [facility] Calcium [Mass/Vol] 8.5 mg/dL Normal 8.5-10.2 [facility] Chloride [Moles/Vol] 103 mmol/L Normal 97-105 [facility] CO2 [Moles/Vol] 22 mmol/L Normal 22-30 [facility] Creatinine [Mass/Vol] 2.77 mg/dL High 0.73-1.22 [facility] eGFR- Amer. 32 Normal [facility] eGFR-All Other Races 26 . Normal [facility] Comment on above: Result Comment: eGFR [...] [email or web address]. Glucose [Mass/Vol] 122 mg/dL High 74-99 [facility] Comment on above: Result Comment: The [place] Diabetes Association (ADA) provides guidance for cutoff [...] Standards of Medical Care in Diabetes 2016, [place] Diabetes Association. Diabetes Care. 2016.39(Suppl 1). Potassium [Moles/Vol] 3.5 mmol/L Low 3.7-5.1 [facility] Sodium [Moles/Vol] 135 mmol/L Low 136-144 [facility] Urea nitrogen [Mass/Vol] 12 mg/dL Normal 9-24 [facility] CONSULT PROGon 07-11-2021 CONSULT PROG HNO ID: [id number] Author: Spike Gandara MD Service: Nephrology Author Type: Physician Type: Consult Progress Note Filed: 07/11/2021 1:06 PM Note Text: [facility] NEPHROLOGY CONSULT PROGRESS NOTE SERVICE DATE: July [...] stenosis, seem by GI, [facility] Hemochromatosis s/p OLT on [...] DATE: July 11, 2021 1:03 PM PHONE: [phone] FOR AFTER HOUR CONCERNS BETWEEN 7PM - 7AM CONTACT ON-CALL NEPHROLOGY STAFF [facility] CONSULT PROG HNO ID: [id number] Author: Justin Glasgow PA-C Service: Pain Management Author Type: Physician Securities Consultant Type: Consult Progress Note Filed: 07/11/2021 11:02 [...] Pain scores overnight between 4-9/10 per Vital Wanigan Clerk. The patient's current inpatient analgesic regimen includes: [...] (BACTRIM DS,SEPTRA DS) 1 tablet ORAL - ursodiol 300 mg cap(s) (ACTIGALL) 300 [...] PA-C July 11, 2021 11:02 AM Normal [facility] Amylaseon 07-10-2021 Amylase [Catalytic activity/Vol] 51 U/L Normal 30-104 [facility] Basic Metabolic Panlon 07-10 Anion gap [Moles/Vol] 10 mmol/L Normal 9-18 [facility] Calcium [Mass/Vol] 8.5 mg/dL Normal 8.5-10.2 [facility] Chloride [Moles/Vol] 106 mmol/L High 97-105 [facility] CO2 [Moles/Vol] 21 mmol/L Low 22-30 [facility] Creatinine [Mass/Vol] 2.80 mg/dL High 0.73-1.22 [facility] eGFR- Amer. 31 Normal [facility] eGFR-All Other Races 26 . Normal [facility] Comment on above: Result Comment: eGFR [...] [email or web address]/gfr_[email or web address]. Glucose [Mass/Vol] 126 mg/dL High 74-99 [facility] Comment on above: Result Comment: The [place] Diabetes Association (ADA) provides guidance for cutoff [...] Standards of Medical Care in Diabetes 2016, [place] Diabetes [employer]. Diabetes Care. 2016.39(Suppl 1). Potassium [Moles/Vol] 3.5 mmol/L Low 3.7-5.1 [facility] Sodium [Moles/Vol] 137 mmol/L Normal 136-144 [facility] Urea nitrogen [Mass/Vol] 13 mg/dL Normal 9-24 [facility] CONSULT PROGon 07-10-2021 CONSULT PROG HNO ID: [id number] Author: Justin Glasgow PA-C Service: Pain Management Author Type: Physician Securities Consultant Type: Consult Progress Note Filed: 07/10/2021 12:38 [...] Pain scores overnight between 4-7/10 per Vital Wanigan Clerk. The patient's current inpatient analgesic regimen includes: [...] well-hydrated, well nourished. TRISHA Garrido, PA-C July 10, 2021 12:38 PM [facility] CONSULT PROG HNO ID: [id number] Author: Spike Gandara MD Service: Nephrology Author Type: Physician Type: Consult Progress Note Filed: 07/10/2021 11:42 AM Note Text: [facility] NEPHROLOGY CONSULT PROGRESS NOTE SERVICE DATE: July [...] stenosis, seem by GI[facility] 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 12/ PM tacro trough rather elevated. Tacro held [...] DATE: July 10, 2021 11:41 AM PHONE: [phone] FOR AFTER HOUR CONCERNS BETWEEN 7PM - 7AM CONTACT ON-CALL NEPHROLOGY STAFF [facility] Tacrolimus / [id number] 021 Tacrolimus / [id number] 9.3 ng/mL Normal 5.0-20.0 [facility] Comment on above: Result Comment: Thes [...] situation. Test performed by chemiluminescent immunoassay using [employer]. Performed By: #### F K506 ####[facility] [place], [place] [id number] [facility] 07-09-2021 [facility] HNO ID: [id number] Author: RT Kristyn(R) Service: ? Author Type: Technologist Type: [facility] Filed: 07/08/2021 11:17 PM Note Text: [...] RT Kristyn(R) July 08, 2021 11:17 PM [facility] CASE MANAGEMon 07-09-2021 CASE MANAGEM HNO ID: [id number] Author: Nanette Dangelo RN Service: ? Author [...] 2021 TIME: 6:19 PM PAGER/CONTACT #: Normal [facility] CBC and Differentialon 07-09 Abs Baso 0.00 k/uL Normal <0.11 [facility] Abs Bowman 1.28 k/uL High <0.87 [facility] Abs Neut 7.42 k/uL Normal 1.45-7.50 [facility] ANC(includeSEG+BAND) 7.42 k/uL Normal [facility] Anisocytosis Ql (Bld) Present Normal [facility] Basophils/100 WBC (Bld) 0.0 % Normal [facility] DTYPE Manual Diff Normal [facility] Eosinophils (Bld) [#/Vol] 0.00 10*3/uL Normal <0.46 [facility] Eosinophils/100 WBC (Bld) 0.0 % Normal [facility] Erythrocyte distribution width (RBC) [Ratio] 15.6 % High 11.5-15.0 [facility] Hematocrit (Bld) [Volume fraction] 26.3 % Low 39.0-51.0 [facility] Hemoglobin (Bld) [Mass/Vol] 9.1 g/dL Low 13.0-17.0 [facility] Left Shift Present Normal [facility] Lymphocytes (Bld) [#/Vol] 0.37 10*3/uL Low 1.00-4.00 [facility] Lymphocytes/100 WBC (Bld) 4.0 % Normal [facility] MCH 35.0 pG High 26.0-34.0 [facility] MCHC (RBC) [Mass/Vol] 34.6 g/dL Normal 30.5-36.0 [facility] MCV (RBC) [Entitic vol] 101.2 fL High 80.0-100.0 [facility] Monocytes/100 WBC (Bld) 14.0 % Normal [facility] Myelo% 1.0 % Normal [facility] Neutrophils/100 WBC (Bld) 81.0 % Normal [facility] Platelet Estimate Platelet estimate decreased Normal [facility] Platelet mean volume (Bld) [Entitic vol] 12.3 fL Normal 9.0-12.7 [facility] Platelets (Bld) [#/Vol] 59 10*3/uL Low 150-400 [facility] Polychromasia Slight Normal [facility] RBC (Bld) [#/Vol] 2.60 10*6/uL Low 4.20-6.00 [facility] WBC (Bld) [#/Vol] 9.16 10*3/uL Normal 3.70-11.00 [facility] CONSULT PROGon 07-09-2021 CONSULT PROG HNO ID: [id number] Author: Justin Glasgow PA-C Service: Pain Management Author Type: Physician Securities Consultant Type: Consult Progress Note Filed: 07/09/2021 3:41 [...] Pain scores overnight between 4-8/10 per Vital Wanigan Clerk. The patient's current inpatient analgesic regimen includes: [...] Garrido, PA-C July 09, 2021 3:41 PM [facility] CONSULT PROG HNO ID: [id number] Author: Ana Cotton APRN.HERNANDEZ Service: Gastroenterology Author [...] Pt continues to wait for bed at [facility], pt will likely still be inpatient for few days while monitoring kidney function and tacro levels if does not get a bed still at that time and tolerating diet can likely get scheduled for ERCP at [facility] as outpatient Will continue to monitor peripherally Normal [facility] CONSULT PROG HNO ID: [id number] Author: Spike Gandara MD Service: Nephrology Author Type: Physician Type: Consult Progress Note Filed: 07/09/2021 12:32 PM Note Text: [facility] NEPHROLOGY CONSULT PROGRESS NOTE SERVICE DATE: July [...] stenosis, seem by GI, [facility] Hemochromatosis s/p OLT on [...] DATE: July 09, 2021 11:39 AM PHONE: [phone] FOR AFTER HOUR CONCERNS BETWEEN 7PM - 7AM CONTACT ON-CALL NEPHROLOGY STAFF [facility] CONSULT PROG HNO ID: [id number] Author: Valencia Noguera [facility] Service: Pharmacy Author Type: Pharmacist Type: Consult [...] have reviewed the above information with the pharmacy retail support specialist/resident or garage door technician and agree with the assessment/plan described. Changes or additions to the note are indicated by italics and . Valencia Noguera, Pharmacist 07/09/2021 7:54 AM Ext: [phone] [facility] CONSULT PROG HNO ID: [id number] Author: Lei Mckoy [facility] Service: Pharmacy Author Type: Pharmacist Type: Consult [...] Vancomycin, result (ug/mL) Date/Time Value 07/08/20212010 18.6 07/07/20212001 37.3 (H) Lei Mckoy, [facility] Normal [facility] Comp Metabolic Panelon 07-09 Albumin [Mass/Vol] 2.9 g/dL Low 3.9-4.9 [facility] ALP [Catalytic activity/Vol] 63 U/L Normal 38-113 [facility] ALT [Catalytic activity/Vol] 16 U/L Normal 10-54 [facility] Anion gap [Moles/Vol] 8 mmol/L Low 9-18 [facility] AST [Catalytic activity/Vol] 17 U/L Normal 14-40 [facility] Bilirubin [Mass/Vol] 1.0 mg/dL Normal 0.2-1.3 [facility] Calcium [Mass/Vol] 8.0 mg/dL Low 8.5-10.2 [facility] Chloride [Moles/Vol] 109 mmol/L High 97-105 [facility] CO2 [Moles/Vol] 20 mmol/L Low 22-30 [facility] Creatinine [Mass/Vol] 2.83 mg/dL High 0.73-1.22 [facility] eGFR- Amer. 31 Normal [facility] eGFR-All Other Races 26 . Normal [facility] Comment on above: Result Comment: eGFR [...] [email or web address]. Glucose [Mass/Vol] 174 mg/dL High 74-99 [facility] Comment on above: Result Comment: The [employer] [place] [employer] (ADA) provides guidance for cutoff [...] Standards of Medical Care in Diabetes 2016, [employer] [place] [employer]. Diabetes Care. 2016.39(Suppl 1). Potassium [Moles/Vol] 3.8 mmol/L Normal 3.7-5.1 [facility] Protein [Mass/Vol] 5.1 g/dL Low 6.3-8.0 [facility] Sodium [Moles/Vol] 137 mmol/L Normal 136-144 [facility] Urea nitrogen [Mass/Vol] 16 mg/dL Normal 9-24 [facility] MRI BRAIN WO IVCONon 12-14-2 021 MRI BRAIN WO IVCON * * *Final Report* * * DATE OF EXAM: Jul 08 2021 11:28PM [facility] 0294 - MRI BRAIN WO IVCON / [...] if there is concern for demyelinating disease. Recordings Librarian: GUILLE Transcribe Date/Time: Jul 09 2021 2:02A Dictated by : CARLOS ALEJANDRA MD This examination was interpreted and the report reviewed and electronically signed by: CARLOS ALEJANDRA MD on Jul 09 2021 2:09AM EST [id number] Normal [facility] Magnesiumon 07-09-2021 Magnesium [Mass/Vol] 1.8 mg/dL Normal 1.7-2.3 [facility] NURSING PROGon 07-09-2021 NURSING PROG HNO ID: [id number] Author: Demetrice Chacon RN Service: Nursing Author Type: Registered Nurse Type: Nursing Progress Note Filed: 07/09/2021 6:19 AM Note Text: Nursing Progress Note Patient Name: Chuckie Villalta Patient Location: / Daily Note:alert and oriented, independent with mobility, [...] note was completed by: Demetrice Chacon Normal [facility] Protein/Creatinine Ratioon 1 09-09-2020 Creatinine,Urine,Ran 68.3 mg/dL Normal 20-300 [facility] Comment on above: Performed By: #### P RATIO ####[address] [phone] Protein (U) [Mass/Vol] 7 mg/dL Normal 0-20 [facility] Comment on above: Performed By: #### P RATIO ####[address] [phone] Protein/Creatinine Ratio 0.1 Normal <0.2 [facility] Comment on above: Performed By: #### P RATIO ####[address] [phone] Urinalysis with Microscopico n 07-09-2021 Bilirubin, Urine Negative Normal Negative [facility] Cast SEE COMMENT Normal 0 [facility] Comment on above: Result Comment: 0 Clarity (U) Clear Normal Clear [facility] Color (U) Yellow Normal Yellow [facility] Glucose Ql (U) 1+ mg/dL Critically abnormal Negative [facility] Hemoglobin/Blood,Ur Negative Normal Negative [facility] Ketones Ql (U) Negative Normal Negative [facility] Leukest Negative Normal Negative [facility] Nitrite Ql (U) Negative Normal Negative [facility] pH (U) 5.5 [pH] Normal 5.0-8.0 [facility] Protein, Urine Trace Critically abnormal Negative [facility] RBC 0-3 Normal 0-3 [facility] Specific Anchor, Ur 1.010 Normal 1.005-1.030 [facility] Urobilinogen Qn (U) 0.2 {Andrea'U}/dL Normal 0.2-1.0 [facility] WBC 0-5 Normal 0-5 [facility] ALLIED HEALTHon 07-08-2021 ALLIED HEALTH HNO ID: [id number] Author: Joshua Moran Service: Spiritual Care Author Type: ? Type: Allied Health Filed: 07/08/2021 1:06 PM Note Text: SPIRITUAL CARE PROGRESS NOTE SERVICE DATE: 07/08/2021 SERVICE TIME: 12:45PM Pt listed as Religion Jain in [facility], and he shared that he and his family attend the [place] in [place], [place]; pt in good spirits but drowsy at the time of visit; shared that he has undergone a liver transplant, and is now dealing with pancreatitis; provided him with a daily devotional for his use, and offered a blessing bedside; no follow-up planned unless requested. To contact the Spiritual Care Department: Please call Ext [phone] SIGNATURE: Joshua Fraustodiego PATIENT NAME: Chuckie Villalta DATE: July 08, 2021 TIME: 1:04 PM PAGER/CONTACT #: [phone] Normal [facility] CBC and Differentialon 07-08 Abs Baso 0.00 k/uL Normal <0.11 [facility] Abs Bowman 1.25 k/uL High <0.87 [facility] Abs Neut 6.26 k/uL Normal 1.45-7.50 [facility] ANC(includeSEG+BAND) 6.26 k/uL Normal [facility] Anisocytosis Ql (Bld) Present Normal [facility] Basophils/100 WBC (Bld) 0.0 % Normal [facility] DTYPE Manual Diff Normal [facility] Eosinophils (Bld) [#/Vol] 0.00 10*3/uL Normal <0.46 [facility] Eosinophils/100 WBC (Bld) 0.0 % Normal [facility] Erythrocyte distribution width (RBC) [Ratio] 15.7 % High 11.5-15.0 [facility] Hematocrit (Bld) [Volume fraction] 26.0 % Low 39.0-51.0 [facility] Hemoglobin (Bld) [Mass/Vol] 9.0 g/dL Low 13.0-17.0 [facility] Left Shift Present Normal [facility] Lymphocytes (Bld) [#/Vol] 0.23 10*3/uL Low 1.00-4.00 [facility] Lymphocytes/100 WBC (Bld) 3.0 % Normal [facility] MCH 35.4 pG High 26.0-34.0 [facility] MCHC (RBC) [Mass/Vol] 34.6 g/dL Normal 30.5-36.0 [facility] MCV (RBC) [Entitic vol] 102.4 fL High 80.0-100.0 [facility] Monocytes/100 WBC (Bld) 16.0 % Normal [facility] Myelo% 1.0 % Normal [facility] Neutrophils/100 WBC (Bld) 80.0 % Normal [facility] Platelet Estimate Platelet estimate decreased Normal [facility] Platelet mean volume (Bld) [Entitic vol] 12.3 fL Normal 9.0-12.7 [facility] Platelets (Bld) [#/Vol] 39 10*3/uL Low 150-400 [facility] Polychromasia Slight Normal [facility] RBC (Bld) [#/Vol] 2.54 10*6/uL Low 4.20-6.00 [facility] WBC (Bld) [#/Vol] 7.82 10*3/uL Normal 3.70-11.00 [facility] CONSULTon 07-08-2021 CONSULT HNO ID: [id number] Author: Justin Glasgow PA-C Service: Pain Management Author Type: Physician Securities Consultant Type: Consults Filed: 07/08/2021 2:06 PM Note Text: PAIN MANAGEMENT CONSULT -- [facility] PATIENT NAME: Chuckie Villalta DATE [...] is consulted RE: acute pancreatitis, on fentanyl casino cage manager by Dr. Jolynn Jaquez and Lisseth Raymond, [...] (PF) 4 mg injection (ZOFRAN) - fentaNYL HAIR MACHINE OPERATOR 20 mcg/mL in NaCl 0.9% 100 mL [...] 167* TP (more content not included)... Normal [facility] CONSULT HNO ID: [id number] Author: Spike Gandara MD Service: Nephrology Author Type: Physician Type: Consults Filed: 07/08/2021 2:05 PM Note Text: [facility] NEPHROLOGY AND HYPERTENSION [facility] SERVICE DATE: July [...] injection (ZOF (more content not included)... Normal [facility] CONSULT PROGon 07-08-2021 CONSULT PROG HNO ID: [id number] Author: Ana Cotton APRN.FIELD ENUMERATOR Service: Gastroenterology Author Type: Nurse Practitioner Type: [...] Splenomegaly. 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 Will discuss with staff and SM Dr. Quezada as well. Normal [facility] Calcium, Ionizedon 1 Calcium, Ionized 1.12 mmol/L Normal 1.08-1.30 [facility] Comp Metabolic Panelon 07-08 Albumin [Mass/Vol] 2.9 g/dL Low 3.9-4.9 [facility] ALP [Catalytic activity/Vol] 60 U/L Normal 38-113 [facility] ALT [Catalytic activity/Vol] 22 U/L Normal 10-54 [facility] Anion gap [Moles/Vol] 8 mmol/L Low 9-18 [facility] AST [Catalytic activity/Vol] 38 U/L Normal 14-40 [facility] Bilirubin [Mass/Vol] 1.6 mg/dL High 0.2-1.3 [facility] Calcium [Mass/Vol] 8.0 mg/dL Low 8.5-10.2 [facility] Chloride [Moles/Vol] 106 mmol/L High 97-105 [facility] CO2 [Moles/Vol] 18 mmol/L Low 22-30 [facility] Creatinine [Mass/Vol] 2.34 mg/dL High 0.73-1.22 [facility] eGFR- Amer. 39 Normal [facility] eGFR-All Other Races 32 . Normal [facility] Comment on above: Result Comment: eGFR [...] [email or web address]. Glucose [Mass/Vol] 107 mg/dL High 74-99 [facility] Comment on above: Result Comment: The [place] Diabetes [employer] (ADA) provides guidance for cutoff [...] Standards of Medical Care in Diabetes 2016, [employer] [place] [employer]. Diabetes Care. 2016.39(Suppl 1). Potassium [Moles/Vol] 3.9 mmol/L Normal 3.7-5.1 [facility] Protein [Mass/Vol] 4.9 g/dL Low 6.3-8.0 [facility] Sodium [Moles/Vol] 132 mmol/L Low 136-144 [facility] Urea nitrogen [Mass/Vol] 17 mg/dL Normal 9-24 [facility] Lipaseon 07-08-2021 Lipase [Catalytic activity/Vol] 235 U/L High 16-61 [facility] Magnesiumon 07-08-2021 Magnesium [Mass/Vol] 1.4 mg/dL Low 1.7-2.3 [facility] Tacrolimus / [id number] 021 Tacrolimus / FK506 23.3 ng/mL High 5.0-20.0 [facility] Comment on above: Result Comment: Thes [...] situation. Test performed by chemiluminescent immunoassay using [employer]. Performed By: #### F K506 ####[id number], [place] [phone] US ABD RIGHT UPPER QUADRANTo n 07-08-2021 [...] 5. Trace ascites in the upper abdomen. Recordings Librarian: [facility] Transcribe Date/Time: Jul 08 2021 12:28P Dictated by : ROCIO MANZO MD This examination was interpreted and the report reviewed and electronically signed by: ROCIO MANZO MD on Jul 08 2021 12:32PM EST [id number] Normal [facility] US ABD SPLEEN -NBon 07-08-20 US ABD SPLEEN -NB * * *Final Report* * * DATE OF EXAM: Jul 08 2021 12:08PM [facility] 1232 - US ABD SPLEEN -NB / [...] 5. Trace ascites in the upper abdomen. Recordings Librarian: GUILLE Transcribe Date/Time: Jul 08 2021 12:28P Dictated by : ROCIO MANZO MD This examination was interpreted and the report reviewed and electronically signed by: ROCIO MANZO MD on Jul 08 2021 12:32PM EST [id number] Normal [facility] Vancomycinon 07-08-2021 Vancomycin 18.6 ug/mL Normal 10.0-20.0 [facility] Comment on above: Result Comment: Refe rence ranges and high/low indicator flags are provided as general guidelines only. The treating physician must determine appropriate target levels/dosing based on the specific clinical situation. CBCon 07-07-2021 Absolute nRBC 0.03 k/uL High <0.01 [facility] Erythrocyte distribution width (RBC) [Ratio] 15.7 % High 11.5-15.0 [facility] Hematocrit (Bld) [Volume fraction] 29.1 % Low 39.0-51.0 [facility] Hemoglobin (Bld) [Mass/Vol] 10.5 g/dL Low 13.0-17.0 [facility] MCH 36.2 pG High 26.0-34.0 [facility] MCHC (RBC) [Mass/Vol] 36.1 g/dL High 30.5-36.0 [facility] MCV (RBC) [Entitic vol] 100.3 fL High 80.0-100.0 [facility] Platelet mean volume (Bld) [Entitic vol] 11.8 fL Normal 9.0-12.7 [facility] Platelets (Bld) [#/Vol] 45 10*3/uL Low 150-400 [facility] RBC (Bld) [#/Vol] 2.90 10*6/uL Low 4.20-6.00 [facility] WBC (Bld) [#/Vol] 9.23 10*3/uL Normal 3.70-11.00 [facility] CONSULT PROGon 07-07-2021 CONSULT PROG HNO ID: [id number] Author: Valencia Noguera [facility] Service: Pharmacy Author Type: Pharmacist Type: Consult [...] have any questions, please contact pharmacy at [phone]. Age: [age] year old Allergies: ALLERGIES Allergen [...] result (ug/mL) Date/Time Value 07/07/20212001 37.3 (H) Valenciajulien Noguera, [facility] Normal [facility] Comp Metabolic Panelon 07-07 Albumin [Mass/Vol] 3.0 g/dL Low 3.9-4.9 [facility] ALP [Catalytic activity/Vol] 70 U/L Normal 38-113 [facility] ALT [Catalytic activity/Vol] 41 U/L Normal 10-54 [facility] Anion gap [Moles/Vol] 9 mmol/L Normal 9-18 [facility] AST [Catalytic activity/Vol] 131 U/L High 14-40 [facility] Bilirubin [Mass/Vol] 4.9 mg/dL High 0.2-1.3 [facility] Calcium [Mass/Vol] 7.9 mg/dL Low 8.5-10.2 [facility] Chloride [Moles/Vol] 105 mmol/L Normal 97-105 [facility] CO2 [Moles/Vol] 18 mmol/L Low 22-30 [facility] Creatinine [Mass/Vol] 1.63 mg/dL High 0.73-1.22 [facility] eGFR- Amer. 59 Normal [facility] eGFR-All Other Races 48 . Normal [facility] Comment on above: Result Comment: eGFR [...] [email or web address]_calculator. Glucose [Mass/Vol] 110 mg/dL High 74-99 [facility] Comment on above: Result Comment: The [employer] [place] Diabetes [employer] (ADA) provides guidance for cutoff [...] Standards of Medical Care in Diabetes 2016, [employer] [place] [employer]. Diabetes Care. 2016.39(Suppl 1). Potassium [Moles/Vol] 4.1 mmol/L Normal 3.7-5.1 [facility] Protein [Mass/Vol] 5.0 g/dL Low 6.3-8.0 [facility] Sodium [Moles/Vol] 132 mmol/L Low 136-144 [facility] Urea nitrogen [Mass/Vol] 15 mg/dL Normal 9-24 [facility] NURSING PROGon 07-07-2021 NURSING PROG HNO ID: [id number] Author: Preethi Slater RN Service: Nursing Author Type: Registered Nurse Type: Nursing Progress Note Filed: 07/06/2021 11:25 PM Note Text: Nursing Progress Note Patient Name: Chuckie Villalta Patient Location: / Transfer Note: Patient transferred from [facility] Room 426 to [facility] Room 414 by bed in stable condition with IV fluids, IV antibiotics, and a HAIR MACHINE OPERATOR pump with on demand fentanyl. Vital signs obtained, patient oriented to room. Call light within reach. This note was completed by: Preethi Slater RN [facility] NURSING PROG HNO ID: [id number] Author: Delilah Le RN Service: Nursing Author Type: Registered Nurse Type: Nursing Progress Note Filed: 07/06/2021 10:24 PM Note Text: Report called to room 414 Mare RN patient aware of tranfer. Belongings with patient , transferred juanpablo new room with RN in bed, vs stable. Normal [facility] Vancomycinon 07-07-2021 Vancomycin 37.3 ug/mL High 10.0-20.0 [facility] Comment on above: Result Comment: Refe rence ranges and high/low indicator flags are provided as general guidelines only. The treating physician must determine appropriate target levels/dosing based on the specific clinical situation. [facility] HNO ID: [id number] Author: Mariluz Salamanca RN Service: Nursing Author Type: Registered Nurse Type: Care Mgt Initial Assessment Filed: 07/06/2021 2:04 PM Note Text: CARE MANAGEMENT: ASSESSMENT AND DISCHARGE PLAN SERVICE DATE: July 06, 2021 SERVICE TIME: 1:59 PM PRIMARY CARE PHYSICIAN: Luis Abdalla DO ADMISSION STATUS: Inpatient MEDICAL: [facility] MEDICAID Health Insurance: [facility] ([facility] Plan Medicaid) Last Discharge Date: 02/13/20 Is this Within the Past 30 days? Advance Directive: Current Advance Directive: Health Care Power of Booster Station Operator In Chart: Yes Up To Date and Valid: Yes Baseline Mental Status Prior to this Illness what was the patient's Baseline Mental Status?: Alert AND Oriented Prior to this illness, has anyone described the patient having any of the following behaviors?: Not Applicable Relationship of the informant to the patient:: Self Primary Contact: Extended Emergency Contact Information Primary Emergency Contact: Remedios Villalta Address: [address] [address] [facility] Mobile Relation: Spouse Supportive Patient Contact:: Yes Contact Resources: Family;Significant Other FREEDOM OF CHOICE EXPLAINED: [place] of Choice Given: No Reason Not Given: [...] 06, 2021 TIME: 1:59 PM PAGER/CONTACT #: [phone] Normal [facility] CBC and Differentialon 07-06 Abs Baso 0.00 k/uL Normal <0.11 [facility] Abs Bowman 0.64 k/uL Normal <0.87 [facility] Abs Neut 8.13 k/uL High 1.45-7.50 [facility] ANC(includeSEG+BAND) 8.13 k/uL Normal [facility] Basophils/100 WBC (Bld) 0.0 % Normal [facility] DTYPE Manual Diff Normal [facility] Eosinophils (Bld) [#/Vol] 0.09 10*3/uL Normal <0.46 [facility] Eosinophils/100 WBC (Bld) 1.0 % Normal [facility] Erythrocyte distribution width (RBC) [Ratio] 14.6 % Normal 11.5-15.0 [facility] Hematocrit (Bld) [Volume fraction] 30.9 % Low 39.0-51.0 [facility] Hemoglobin (Bld) [Mass/Vol] 11.4 g/dL Low 13.0-17.0 [facility] Left Shift Present Normal [facility] Lymphocytes (Bld) [#/Vol] 0.27 10*3/uL Low 1.00-4.00 [facility] Lymphocytes/100 WBC (Bld) 3.0 % Normal [facility] MCH 35.0 pG High 26.0-34.0 [facility] MCHC (RBC) [Mass/Vol] 36.9 g/dL High 30.5-36.0 [facility] MCV (RBC) [Entitic vol] 94.8 fL Normal 80.0-100.0 [facility] Monocytes/100 WBC (Bld) 7.0 % Normal [facility] Neutrophils/100 WBC (Bld) 89.0 % Normal [facility] Platelet Estimate Platelet estimate decreased Normal [facility] Platelet mean volume (Bld) [Entitic vol] 11.3 fL Normal 9.0-12.7 [facility] Platelets (Bld) [#/Vol] 63 10*3/uL Low 150-400 [facility] RBC (Bld) [#/Vol] 3.26 10*6/uL Low 4.20-6.00 [facility] Red Cell Morph SEE COMMENT Normal [facility] Comment on above: Result Comment: Unre markable WBC (Bld) [#/Vol] 9.13 10*3/uL Normal 3.70-11.00 [facility] CONSULTon 07-06-2021 CONSULT HNO ID: [id number] Author: Og Gibbs MD Service: Gastroenterology Author [...] and hi s [facility] giving his complex medica history and the need for repeated ERCP Dr. Wilburn reviewed the case too and agreed to transfer the patient to for further care Normal [facility] CONSULT PROGon 07-06-2021 CONSULT PROG HNO ID: [id number] Author: Pearl Mann RPh Service: Pharmacy Author [...] any questions, please contact Pharmacy at ex [phone]. Age: [age] year old Allergies: ALLERGIES Allergen [...] Levels: No results found for: CHIDI Mann [facility] Normal [facility] Comp Metabolic Panelon 07-06 Albumin [Mass/Vol] 3.5 g/dL Low 3.9-4.9 [facility] ALP [Catalytic activity/Vol] 60 U/L Normal 38-113 [facility] ALT [Catalytic activity/Vol] 60 U/L High 10-54 [facility] Anion gap [Moles/Vol] 15 mmol/L Normal 9-18 [facility] AST [Catalytic activity/Vol] 361 U/L High 14-40 [facility] Bilirubin [Mass/Vol] 6.6 mg/dL High 0.2-1.3 [facility] Calcium [Mass/Vol] 7.8 mg/dL Low 8.5-10.2 [facility] Chloride [Moles/Vol] 102 mmol/L Normal 97-105 [facility] CO2 [Moles/Vol] 15 mmol/L Low 22-30 [facility] Creatinine [Mass/Vol] 1.73 mg/dL High 0.73-1.22 [facility] eGFR- Amer. 55 Normal [facility] eGFR-All Other Races 45 . Normal [facility] [facility] Comment on above: Result Comment: eGFR [...] [email or web address]/professionals/[email or web address]/gfr_[email or web address]. Glucose [Mass/Vol] 129 mg/dL High 74-99 [facility] Comment on above: Result Comment: The [place] Diabetes [employer] (ADA) provides guidance for cutoff [...] Standards of Medical Care in Diabetes 2016, [employer] [place] [employer]. Diabetes Care. 2016.39(Suppl 1). Potassium [Moles/Vol] 4.3 mmol/L Normal 3.7-5.1 [facility] Protein [Mass/Vol] 5.2 g/dL Low 6.3-8.0 [facility] Sodium [Moles/Vol] 132 mmol/L Low 136-144 [facility] Urea nitrogen [Mass/Vol] 17 mg/dL Normal 9-24 [facility] ED NOTEon 07-06-2021 ED NOTE HNO ID: [id number] Author: Marcela Corley RN Service: Nursing Author Type: Registered Nurse Type: ED Notes Filed: 07/06/2021 4:57 AM Note Text: Report to Loraine RENAE. Normal [facility] ED NOTE HNO ID: [id number] Author: Marcela Corley RN Service: Nursing Author Type: Registered Nurse Type: ED Notes Filed: 07/06/2021 4:51 AM Note Text: Pt resting in bed at this time. Call light within reach, will continue to monitor. Normal [facility] Expedited [id number] 07-06-20 SARS-CoV-2 (COVID-19) RNA NOLBERTO+probe Ql (Unsp spec) UPPER RESPIRATORY TRACT SWAB Normal [facility] SARS-CoV-2 (COVID-19) RNA NOLBERTO+probe Ql (Unsp spec) Negative for COVID19 (SARS CoV2) by RT-PCR or equivalent method. Normal Negative for COVID19 (SARS CoV2) by RT-PCR or equivalent method. [facility] Comment on above: Result Comment: This test has been authorized by FDA under an Emergency Use Authorization (EUA). Lipaseon 07-06-2021 Lipase [Catalytic activity/Vol] 1496 U/L High 16-61 [facility] Magnesiumon 07-06-2021 Magnesium [Mass/Vol] 1.2 mg/dL Low 1.7-2.3 [facility] NURSING PROGon 07-06-2021 NURSING PROG HNO ID: [id number] Author: Loraine Ya RN Service: Nursing Author Type: Registered Nurse Type: Nursing Progress Note Filed: 07/06/2021 6:31 AM Note Text: Nursing Progress Note Patient Name: Chuckie Villalta Patient Location: / Transfer Note: Patient transferred into room/unit 426 in stable condition. Actions taken: Report given by Marcela RENAE. No futher actions taken at this time. Will continue to monitor and check with patient. Patient belongings with patient oriented to room, answered questions, denies needs at this time. This note was completed by: Loraine Ya Normal [facility] XR CHEST 1V FRONTAL PORTon 1 09-06-2020 [...] are detected. IMPRESSION: No acute radiographic abnormality. Recordings Librarian: GUILLE Transcribe Date/Time: Jul 05 2021 11:38P Dictated by : RIK YUN MD This examination was interpreted and the report reviewed and electronically signed by: RIK YUN MD on Jul 05 2021 11:39PM EST [id number] Normal [facility] APTTon 07-05-2021 aPTT Coag (Bld) [Time] 22.6 s Low 23.0-32.4 [facility] Comment on above: Result Comment: Unfr actionated [...] laboratory APTT reagent in use throughout the [facility]. Acetaminophenon 07-05-2021 Acetaminophen [Mass/Vol] ug/mL Low 10-30 [facility] Comment on above: Result Comment: Toxi c > 150 ug/mL 4 hours post ingestion The Ginger Akins nomogram can be used to estimate the probability of hepatotoxicity via the relationship of plasma acetaminophen concentration to the post ingestion interval. (Gareth. Pediatrics. 1975. 55:871 to 876 and Ginger et al. [employer] Benefits Clerk Med. 1981. 141:380 to 385). Reference ranges and high/low indicator flags are provided as general guidelines only. The treating physician must determine appropriate target levels/dosing based on the specific clinical situation. Blood Cultureon 07-05-2021 Bacteria identified Cx Nom (Bld) Culture Result - No growth 5 days Normal [facility] Comment on above: Performed By: #### B LCUL ####[facility] [address] [place], [place] [phone] CBC and Differentialon 07-05 Abs Baso 0.00 k/uL Normal <0.11 [facility] Comment on above: Performed By: #### C BCDIF ####[facility] [address] [place], [place] [phone] Abs Bowman 0.97 k/uL High <0.87 [facility] Comment on above: Performed By: #### C BCDIF ####[place] [address] [phone] Abs Neut 28.35 k/uL High 1.45-7.50 [facility] Comment on above: Performed By: #### C BCDIF ####[place] [address] [place] [phone] Anisocytosis Ql (Bld) Present Normal [facility] Comment on above: Performed By: #### C BCDIF ####[place] [address] [place] [phone] Basophils/100 WBC (Bld) 0.0 % [facility] Comment on above: Performed By: #### C BCDIF ####[place] [phone] DTYPE Manual Diff Normal [facility] Comment on above: Performed By: #### C BCDIF ####[place] [address] [place] [phone] Eosinophils (Bld) [#/Vol] 0.00 10*3/uL Normal <0.46 [facility] Comment on above: Performed By: #### C BCDIF ####[place] [address] [place] [phone] Eosinophils/100 WBC (Bld) 0.0 % [facility] Comment on above: Performed By: #### C BCDIF ####[place] [address] [place] [phone] Erythrocyte distribution width (RBC) [Ratio] 15.1 % High 11.5-15.0 [facility] Comment on above: Performed By: #### C BCDIF ####[place] [address] [place] [phone] Hematocrit (Bld) [Volume fraction] 43.2 % Normal 39.0-51.0 [facility] Comment on above: Performed By: #### C BCDIF ####[address] [phone] Hemoglobin (Bld) [Mass/Vol] 16.2 g/dL Normal 13.0-17.0 [facility] Comment on above: Performed By: #### C BCDIF ####[address] [phone] Lymphocytes (Bld) [#/Vol] 0.00 10*3/uL Low 1.00-4.00 [facility] Comment on above: Performed By: #### C BCDIF ####[address] [phone] Lymphocytes/100 WBC (Bld) 0.0 % Normal [facility] Comment on above: Performed By: #### C BCDIF ####[address] [phone] MCH 35.1 pG High 26.0-34.0 [facility] Comment on above: Performed By: #### C BCDIF ####[address] [phone] MCHC (RBC) [Mass/Vol] 37.5 g/dL High 30.5-36.0 [facility] Comment on above: Performed By: #### C BCDIF ####[address] [phone] MCV (RBC) [Entitic vol] 93.7 fL Normal 80.0-100.0 [facility] Comment on above: Performed By: #### C BCDIF ####[address] [phone] Monocytes/100 WBC (Bld) 3.3 % Normal [facility] Comment on above: Performed By: #### C BCDIF ####[address] [phone] Neutrophils/100 WBC (Bld) 96.7 % Normal [facility] Comment on above: Performed By: #### C BCDIF ####[address] [phone] Platelet Estimate Platelet estimate adequate Normal [facility] Comment on above: Performed By: #### C BCDIF ####[address] [phone] Platelet mean volume (Bld) [Entitic vol] 11.6 fL Normal 9.0-12.7 [facility] Comment on above: Performed By: #### C BCDIF ####[address] [phone] Platelets (Bld) [#/Vol] 173 10*3/uL Normal 150-400 [facility] Comment on above: Performed By: #### C BCDIF ####[address] [phone] Polychromasia Slight Normal [facility] Comment on above: Performed By: #### C BCDIF ####[address] [phone] RBC (Bld) [#/Vol] 4.61 10*6/uL Normal 4.20-6.00 [facility] Comment on above: Performed By: #### C BCDIF ####[address] [phone] WBC (Bld) [#/Vol] 29.32 10*3/uL High 3.70-11.00 [facility] Comment on above: Result Comment: Resu lt checked and verified No clot detected. Performed By: #### C BCDIF ####[address] [phone] CONSULT PROGon 07-05-2021 CONSULT PROG HNO ID: [id number] Author: Pearl Mann [facility] Service: Pharmacy Author Type: Pharmacist Type: Consult [...] next vancomycin level will be ordered for 12/ PM unless clinically indicated sooner. (Pharmacy will order) We will follow patient renal function, vancomycin levels and doses with you during the course of therapy. Additional recommendations will appear in follow up notes. If you have any questions, please contact Pharmacy at ex [phone]. Age: [age] year old Allergies: ALLERGIES Allergen [...] Levels: No results found for: CHIDI Mann, [facility] CT ABD/PEL WO IVCONon 2020 CT ABD/PEL WO IVCON * * *Final Report* * * DATE OF EXAM: Jul 05 2021 7:05PM [facility] 0531 - CT ABD/PEL WO IVCON [...] abnormality. Lumbosacral pars defects. Lower thorax: Unremarkable. [place] Clerk (topogram) images: No additional findings. IMPRESSION: Extensive pancreatitis with inflammatory changes surrounding the transverse colon, spleen and retroperitoneum. Small volume ascites is present. Extent of pancreatic necrosis cannot be assessed on a noncontrast examination. Recordings Librarian: GUILLE Transcribe Date/Time: Jul 05 2021 7:12P Dictated by : SPIKE FUNES MD This examination was interpreted and the report reviewed and electronically signed by: SPIKE FUNES MD on Jul 05 2021 7:23PM EST [id number] Normal [facility] Comp Metabolic Panelon 07-05 Albumin [Mass/Vol] 5.0 g/dL High 3.9-4.9 [facility] Comment on above: Performed By: #### C BCDIF ####[address] [phone] ALP [Catalytic activity/Vol] 77 U/L Normal 38-113 [facility] Comment on above: Performed By: #### C BCDIF ####[address] [phone] ALT [Catalytic activity/Vol] 34 U/L Normal 10-54 [facility] Comment on above: Performed By: #### C BCDIF ####[address] [phone] Anion gap [Moles/Vol] 23 mmol/L High 9-18 [facility] Comment on above: Performed By: #### C BCDIF ####[address] [phone] AST [Catalytic activity/Vol] 69 U/L High 14-40 [facility] Comment on above: Performed By: #### C BCDIF ####[address] [phone] Bilirubin [Mass/Vol] 5.3 mg/dL High 0.2-1.3 [facility] Comment on above: Performed By: #### C BCDIF ####[address] [phone] Calcium [Mass/Vol] 9.5 mg/dL Normal 8.5-10.2 [facility] Comment on above: Performed By: #### C BCDIF ####[address] [phone] Chloride [Moles/Vol] 92 mmol/L Low 97-105 [facility] Comment on above: Performed By: #### C BCDIF ####[address] [phone] CO2 [Moles/Vol] 15 mmol/L Low 22-30 [facility] Comment on above: Performed By: #### C BCDIF ####[address] [phone] Creatinine [Mass/Vol] 2.53 mg/dL High 0.73-1.22 [facility] Comment on above: Performed By: #### C BCDIF ####[address] [phone] eGFR- Amer. 35 Normal [facility] Comment on above: Performed By: #### C BCDIF ####[address] [phone] eGFR-All Other Races 29 . Normal [facility] Comment on above: Result Comment: eGFR [...] at [email or web address]/professionals/[email or web address]/gfr_calculator. Performed By: #### C BCDIF ####[place] [address] [place], [place] [phone] Glucose [Mass/Vol] 167 mg/dL High 74-99 [facility] Comment on above: Result Comment: The [place] Diabetes [employer] (ADA) provides guidance for cutoff [...] Standards of Medical Care in Diabetes 2016, [place] [employer]. Diabetes Care. 2016.39(Suppl 1). Performed By: #### C BCDIF ####[address] [phone] Potassium [Moles/Vol] 5.5 mmol/L High 3.7-5.1 [facility] Comment on above: Performed By: #### C BCDIF ####[place] [address] [place], [place] [phone] Protein [Mass/Vol] 7.6 g/dL Normal 6.3-8.0 [facility] Comment on above: Performed By: #### C BCDIF ####[facility] [place], [place] [phone] Sodium [Moles/Vol] 130 mmol/L Low 136-144 [facility] Comment on above: Performed By: #### C BCDIF ####[address] [phone] Urea nitrogen [Mass/Vol] 20 mg/dL Normal 9-24 [facility] Comment on above: Performed By: #### C BCDIF ####[facility] [address] [place], [place] [phone] ED NOTEon 07-05-2021 ED NOTE HNO ID: [id number] Author: Max Styles RN Service: ? Author [...] bed in locked and low position Normal [facility] ED PROV NOTEon 07-05-2021 ED PROV NOTE HNO ID: [id number] Author: Will Mccormick DO Service: Emergency Medicine [...] mmol/L Lact (more content not included)... Normal [facility] ED Triage Noteon 07-05-2021 ED Triage Note HNO ID: [id number] Author: Brian Ash I, PA-C Service: Emergency Medicine Author Type: Physician Securities Consultant Type: ED Triage Notes Filed: 07/05/2021 6:11 [...] US SIGNATURE: Anelise Jake Ash PA-C Normal [facility] Ethanolon 07-05-2021 Ethanol [Mass/Vol] mg/dL Normal <11 [facility] Comment on above: Result Comment: Valu es > 80 mg/dL may indicate intoxication HISTORY PHYSICALon HISTORY PHYSICAL HNO ID: [id number] Author: Lisseth Raymond APRN.FIELD ENUMERATOR Service: Hospital Medicine Author Type: Nurse Practitioner Type: HANDP Filed: 07/05/2021 9:37 PM Note Text: DEPARTMENT OF HOSPITAL MEDICINE HISTORY AND PHYSICAL EXAM SERVICE DATE: 07/05/2021 Code Status: Not on file SERVICE TIME: 9:27 PM Primary Care Physician: Luis Abdalla, DO NIGHT AND WEEKEND COVERAGE: SMILEY COVERAGE: Days: [phone], please contact via PhoneGuardsaAudioPixels Nights: [phone], please page CC Hospitalist Night coverage pager [phone] Subjective CHIEF COMPLAINT: Epigastric pain going through [...] tests revie (more content not included)... Normal [facility] Lipaseon 07-05-2021 Lipase [Catalytic activity/Vol] 2781 U/L High 16-61 [facility] Comment on above: Performed By: #### C BCDIF ####[place] [address] [place], [place] [phone] Magnesiumon 07-05-2021 Magnesium [Mass/Vol] 0.8 mg/dL Low 1.7-2.3 [facility] Comment on above: Result Comment: No c all per procedure. 07/05/21 1847 Performed By: #### C BCDIF ####[place] [address] [place], [place] [phone] Protimeon 07-05-2021 PT INR 1.3 Normal 0.9-1.3 [facility] Comment on above: Result Comment: Sater min K Antagonist (VKA) Therapeutic Range: INR 2 to 3 (Target INR of 2.5) Note: For patients treated with VKA drugs, such as warfarin, the [place] [employer] 2012 Guideline recommends [...] 252-289 PT Sec 14.0 sec High 9.7-13.0 [facility] Triglycerideon 07-05-2021 Fasting Time Unknown Normal [facility] Triglyceride [Mass/Vol] 463 mg/dL High <150 [facility] Troponin Ton 07-05-2021 Troponin T <0.010 Normal 0.000-0.029 [facility] Kaleb 02-25-2021 L --- Specimen: [id number] Received: 02/25/21 Status: LU Sathya Num: [id number] Spec Type: Surgical Subm Dr: Josiah Pompa MD Tissues: A Disc - Intervertebral/Lumbar/C ervical (CERVICAL) Procedures: HE Stain, Gross/Micro L3 Patient Age/Sex Location Account Attending Physician VillaltaChuckie resendiz Shivani 35/M [place] [id number] Josiah Pompa MD SPEC NUM: [id number] RECD: 02/25/21 STATUS: LU WAYNE NUM: [id number] VJ: 02/25/21 [facility] DR: Josiah Pompa MD ENTERED: 02/25/[address] [facility] [address]: LOUIE TYPE: Surgical DEPT: S ORDERED: [...] of montanez-pink, rubbery and ragged fibrous tissue. Tool Supervisor sections are submitted in one cassette labeled A1. (JAYCOB/RONALD) Microscopic Description One glass slide with H E stained material has been examined. The microscopic findings support the above pathologic diagnosis. CPT Codes 81424 Specimen: [id number] Received: 02/25/21 Status: LU Wayne Num: [id number] Spec Type: Surgical Subm Dr: Josiah Pompa MD Tissues: A Disc - Intervertebral/Lumbar/C ervical (CERVICAL) Procedures: HE Stain, Gross/Micro L3 Patient: PawanChuckie Parrish [id number] (Continued) Signed (signature on file) Lucretia Lund MD 02/26/21 1655 Normal [facility] XR cervical spine 1Von 02-25 XR cervical spine 1V [address] [address] XRay Report Signed Patient: Chuckie Villalta MR#: [id number] 56 : 1985 Acct:[id number] Age/Sex: 35 / M ADM Date: 02/25/21 Loc: Room: [address] [place] [address] Type: [facility] Attending Dr: Josiah Pompa MD Ordering Provider: [...] Carlos Solano M.D.02/25/2021 4:31 PM Dictation Location: [place] [address] Transcribed By: [facility] 02/25/21 1631 Dictated By: Carlos Solano II, MD 02/25/21 1630 Signed By: 02/25/21 1631 Normal [facility] Basic Metabolic Panelon 01-25 Calcium [Mass/Vol] 9.3 mg/dL Normal 8.2-10.2 [facility] Comment on above: Result Comment: PERF ORMED BY: [place] [address] PATHOLOGIST CROSS CUT SAW OPERATOR ALFRED TRACY M.D. Performed By: #### B MP, CBC #### [facility] [address] [place] [address] [place] Chloride [Moles/Vol] 99 mmol/L Normal 95-114 [facility] Comment on above: Performed By: #### B MP, CBC #### [facility] [address] [place] [address] [place] CO2 [Moles/Vol] 20.5 mmol/L Low 22.0-30.0 [facility] Comment on above: Performed By: #### B MP, CBC #### [facility] [address] [place] [address] [place] Creatinine [Mass/Vol] 1.31 mg/dL High 0.64-1.27 [facility] Comment on above: Performed By: #### B MP, CBC #### [facility] [address] Estimated GFR ( Marissa > 60 Normal [facility] Comment on above: Result Comment: GFR estimated reference range: According to KDOQI guidelines, <60 ml/min/1.73m2 is sufficient to diagnose a patient with chronic kidney disease. Performed By: #### B MP, CBC #### [facility] [address] Estimated GFR (Non- Am > 60 Normal [facility] Comment on above: Performed By: #### B MP, CBC #### [facility] [address] Glucose [Mass/Vol] 105 mg/dL High 70-100 [facility] Comment on above: Result Comment: [place] Glucose Reference Range is dependent on time and content of last meal. Glucose of more than 200 mg/dL in a nonstressed, ambulatory subject supports the diagnosis of Diabetes Mellitus. ADA recommended reference range Performed By: #### B MP, CBC #### [facility] [address] Potassium [Moles/Vol] 4.4 mmol/L Normal 3.5-5.1 [facility] Comment on above: Performed By: #### B MP, CBC #### [facility] [address] [place] [address] [place] Sodium [Moles/Vol] 133 mmol/L Low 136-146 [facility] Comment on above: Performed By: #### B MP, CBC #### [facility] [address] Urea nitrogen [Mass/Vol] 11 mg/dL Normal 9-23 [facility] Comment on above: Performed By: #### B MP, CBC #### [facility] [address] COVID-19 FRMCon 02-21-2021 SARS-CoV-2 (COVID-19) RNA NOLBERTO+probe Ql (Unsp spec) Negative Normal Negative [facility] Comment on above: Order Comment: Healt hcare Worker?: N Result Comment: Testing for SARS-CoV-2 by RT-PCR This test was developed and its performance characteristics determined by [employer] ([employer]) and validated at the [facility]. This test has not been FDA cleared [...] is terminated or revoked sooner. PERFORMED BY: [place] [address] PATHOLOGIST CROSS CUT SAW OPERATOR ALFRED TRACY M.D. Performed By: #### C OVID 19 [facility] #### [address] Complete Blood Count Auto Di ffon 02-21-2021 Basophils (Bld) [#/Vol] 0.0 10*3/uL Normal 0.0-0.2 [facility] Comment on above: Result Comment: PERF ORMED BY: [place] [address] PATHOLOGIST CROSS CUT SAW OPERATOR ALFRED TRACY M.D. Performed By: #### B MP, CBC #### [address] Basophils/100 WBC (Bld) 0.5 % Normal . [facility] Comment on above: Performed By: #### B MP, CBC #### [address] Eosinophils (Bld) [#/Vol] 0.1 10*3/uL Normal 0.0-0.45 [facility] Comment on above: Performed By: #### B MP, CBC #### [facility] [address] Eosinophils/100 WBC (Bld) 1.2 % Normal . [facility] Comment on above: Performed By: #### B MP, CBC #### [facility] [address] Erythrocyte distribution width (RBC) [Ratio] 14.0 % Normal 12.0-14.8 [facility] Comment on above: Performed By: #### B MP, CBC #### [facility] [address] Hematocrit (Bld) [Volume fraction] 39.2 % Normal 38.8-50.0 [facility] Comment on above: Performed By: #### B MP, CBC #### [facility] [address] Hemoglobin (Bld) [Mass/Vol] 13.9 g/dL Normal 13.0-17.0 [facility] Comment on above: Performed By: #### B MP, CBC #### [address] Lymphocytes (Bld) [#/Vol] 1.0 10*3/uL Normal 1.00-4.8 [facility] Comment on above: Performed By: #### B MP, CBC #### [address] Lymphocytes/100 WBC (Bld) 9.5 % Normal . [facility] Comment on above: Performed By: #### B MP, CBC #### [facility] [address] MCH (RBC) [Entitic mass] 32.1 pg Normal 27.5-35.2 [facility] Comment on above: Performed By: #### B MP, CBC #### [address] MCV (RBC) [Entitic vol] 90.4 fL Normal 83.5-101 [facility] Comment on above: Performed By: #### B MP, CBC #### [facility] [address] Mean Corpuscular HGB Conc 35.5 g/dL Normal 32.5-35.6 [facility] Comment on above: Performed By: #### B MP, CBC #### [facility] [address] [place] [address] [place] Monocytes (Bld) [#/Vol] 0.6 10*3/uL Normal 0.0-0.8 [facility] Comment on above: Performed By: #### B MP, CBC #### [facility] [address] Monocytes/100 WBC (Bld) 6.0 % Normal . [facility] Comment on above: Performed By: #### B MP, CBC #### [facility] [address] [place] [address] [place] Neutrophils (Bld) [#/Vol] 8.8 10*3/uL High 1.8-7.7 [facility] Comment on above: Performed By: #### B MP, CBC #### [facility] [address] [place] [address] [place] Neutrophils/100 WBC (Bld) 82.8 % Normal . [facility] Comment on above: Performed By: #### B MP, CBC #### [facility] [address] [place] [address] [place] Nucleated RBC/100 WBC (Bld) [Ratio] 0.0 % Normal 0-0.5 [facility] Comment on above: Performed By: #### B MP, CBC #### [facility] [address] [place] [address] [place] Platelet mean volume (Bld) [Entitic vol] 8.4 fL Normal 6.6-10.1 [facility] Comment on above: Performed By: #### B MP, CBC #### [facility] [address] [place] [id number] [place] Platelets (Bld) [#/Vol] 205 10*3/uL Normal 150-450 [facility] Comment on above: Performed By: #### B MP, CBC #### [facility] [address] RBC (Bld) [#/Vol] 4.34 10*6/uL Normal 3.90-5.60 [facility] Comment on above: Performed By: #### B MP, CBC #### [facility] [address] WBC (Bld) [#/Vol] 10.6 10*3/uL Normal 4.5-11.0 [facility] Comment on above: Performed By: #### B MP, CBC #### [facility] [address] ECG 12 lead ECGon 02-18-2021 ECG 12 lead ECG [facility] [place] [address] [place] [address] Electrocardiograph Report Signed Patient: Chuckie Villalta MR#: [id number] 56 : 1985 Acct:[id number] Age/Sex: 35 / M ADM Date: 02/18/21 Loc: Room: Type: [facility] Attending Dr: Josiah Pompa MD Ordering Provider: [...] on 02/18/2021 4:10:54 PM Referred By: RM OPMPA Electronically Signed By:SHAWN RICCI DO Transcribed By: MUS Dictated By: Shawn Ricci DO 02/18/21 1413 Signed By: 02/18/21 1610 Normal [facility] CSPINE WO CONon 12-07-19 MRI CSPINE [...] by: ANGIE MCDANIEL Date: 2020-12-06 12:00 Normal [facility] Vital Signs Date Time Vital Sign Value Performing Clinician Facility 06-20-2023 16:12-0500 Body temperature 96.98 [degF] [facility] 06-20-2023 16:12-0500 Diastolic blood pressure 85 mm[Hg] [facility] 06-20-2023 16:12-0500 Heart rate 114 /min [facility] 06-20-2023 16:12-0500 Respiratory rate 18 /min [facility] 06-20-2023 16:12-0500 SaO2% (BldA) [Mass fraction] 100 % [facility] 06-20-2023 16:12-0500 Systolic blood pressure 160 mm[Hg] [facility] 06-11-2023 10:00-0500 Body height 185.42 cm Luis Ball Other [facility] [employer] Other 06-11-2023 10:00-0500 Body mass index (BMI) [Ratio] 29.66 kg/m2 Luis Ball Other [employer] Other 06-11-2023 10:00-0500 Body weight 101.97 kg Luis Ball Other [employer] Other 06-11-2023 10:00-0500 Diastolic blood pressure 97 mm[Hg] Luis Ball Other [employer] Other 06-11-2023 10:00-0500 Respiratory rate 12 /min Luis Ball Other [employer] Other 06-11-2023 10:00-0500 Systolic blood pressure 141 mm[Hg] Luis Ball Other [employer] Other 03-05-2023 09:45-0400 Body height 185.42 cm Luis Ball Other [employer] Other 03-05-2023 09:45-0400 Body mass index (BMI) [Ratio] 29.6 kg/m2 Luis Ball Other [employer] Other 03-05-2023 09:45-0400 Body weight 101.79 kg Luis Ball Other [employer] Other 03-05-2023 09:45-0400 Diastolic blood pressure 109 mm[Hg] Luis Ball Other [employer] Other 03-05-2023 09:45-0400 Systolic blood pressure 153 mm[Hg] Luis Ball Other [employer] Other 09-12-2022 10:30-0500 Body height 185.42 cm Luis Ball Other [employer] Other 09-12-2022 10:30-0500 Body mass index (BMI) [Ratio] 29.95 kg/m2 Luis Ball Other [employer] Other 09-12-2022 10:30-0500 Body weight 102.97 kg Luis Ball Other [employer] Other 09-12-2022 10:30-0500 Diastolic blood pressure 86 mm[Hg] Luis Ball Other [employer] Other 09-12-2022 10:30-0500 Respiratory rate 12 /min Luis Ball Other [employer] Other 09-12-2022 10:30-0500 Systolic blood pressure 132 mm[Hg] Luis Ball Other [employer] Other Encounters Encounter Date Encounter Type Care Provider Facility Start: 09-28-2023 End: 09-29-2023 ambulatory Vicente Thompson MD Facility: [facility] Start: 06-20-2023 End: 06-20-2023 Emergency department patient visit Wilmer Rosenberg Facility:[facility] Start: 06-20-2023 End: 06-20-2023 [facility] Start: 06-11-2023 End: 06-11-2023 ambulatory Luis Abdalla Other [employer] Other Start: 06-11-2023 Encounter for genera l adult medical examination without abnormal findings Luis Abdalla [facility] Start: 06-11-2023 Periodic preventive med est patient 18-39 yrs Luis Abdalla [facility] Start: 03-19-2023 End: 03-19-2023 ambulatory BETINA QUEZADA Facility:[facility] Start: 03-05-2023 End: 03-05-2023 ambulatory Luis Abdalla Other [employer] Other Start: 03-05-2023 Office outpatient vi sit 15 minutes Luis Abdalla [facility] Start: 12-11-2022 End: 12-11-2022 ambulatory BETINA QUEZADA Facility:[facility] Start: 09-22-2022 Telephone encounter Rashida Liriano RNsupervisor production Comment on above: Care Coordination ([facility]) Start: 09-12-2022 End: 09-12-2022 ambulatory Luis Abdalla Other [employer] Other Start: 09-12-2022 Office outpatient vi sit 25 minutes Luis Abdalla [facility] Start: 09-04-2022 Orders Only Betina Quezada MD Work Phone: Gastroenterology Comment on above: Liver transplant rec ipient (HCC) (Primary Dx) Endoscopy Call Start: 09-04-2022 End: 09-04-2022 Evaluation and management of inpatient MINNA TUBBSIZERA Facility:[facility] Start: 08-31-2022 End: 09-05-2022 Evaluation and management of inpatient LUIS ABDALLA Facility:[facility] Start: 07-22-2022 ambulatory Nadja Spencer RN [facility] [place] Comment on above: holiday obs erved July 28 Start: 07-22-2022 E-mail encounter bello bowens caregiver [facility] Start: 07-07-2022 End: 07-08-2022 ambulatory LUIS ABDALLA Facility:[facility] Start: 05-01-2022 Refill Tuyet Rivera PA-C Work Phone: HOSP MAIN G[facility] Comment on above: Refill Request Start: 03-24-2022 Telephone encounter [facility] Comment on above: Reminder To Have Lab s Drawn Start: 03-11-2022 Telephone encounter [facility] Comment on above: Covid19 Concern Start: 02-25-2022 End: 02-25-2022 ambulatory LUIS ABDALLA Facility:[facility] Start: 02-25-2022 End: 02-25-2022 Patient encounter procedure Rosemarie Roger [facility] Comment on above: Uncomplicated alcoho l dependence (HCC) Start: 02-20-2022 End: 02-20-2022 Social Work Alessia Marie [facility] Start: 12-27-2021 End: 12-27-2021 Subsequent hospital visit by physician Ct Prep Qb Radiology Start: 12-10-2021 End: 12-10-2021 ambulatory Aidan Larios MD Work Phone: Transplant Center Comment on above: Liver replaced by tr ansplant (HCC) (Primary Dx); Need for prophylactic immunotherapy Start: 12-10-2021 End: 12-10-2021 Telemedicine consultation with patient Aidan Larios MD Work Phone: [facility] Start: 11-08-2021 Telephone encounter [facility] Comment on above: Hospital Follow Up Start: 12-06-2020 End: 12-07-[address] LUIS ABDALLA Facility:[facility] Procedures Date Procedure Procedure Detail Performing Clinician Start: 09-04-2022 FLUORO ERCP (POC) FOR DDI USE ONLY Betina Quezada MD Work Phone: Start: 09-03-2022 Antibody screen BETINA QUEZADA Comment on above: Order Comment: Specimen Type: BLOOD SPEC IMENOrdering Facility: [facility] Address: [address] [phone] Performed By: #### T SCR ####CC [facility] BLOOD BANKCLIA [id number] [address] [place] Start: 02-24-2022 Adult depression screening assessment Rosemarie NEW Start: 12-27-2021 Ct abdomen w/contrast material Aidan [...] profile DTAP,TDAP,TD (2 - Td or Tdap) [facility] Start: 07-07-2027 LIPID SCREEN LIPID SCREEN [facility] Start: 07-16-2026 LIPID SCREEN LIPID SCREEN [facility] Start: 01-15-2024 PNEUMOCOCCAL (3 - PP SV23 if available, else PCV20) PNEUMOCOCCAL (3 - PPSV23 if available, else PCV20) [facility] Start: 01-15-2024 PNEUMOCOCCAL (3 - PP SV23 or PCV20) PNEUMOCOCCAL (3 - PPSV23 or PCV20) [facility] Start: 10-05-2023 TWO PNEUMOVAX 5 YEAR S APART PRIOR TO AGE 65 (#2) TWO PNEUMOVAX 5 YEARS APART PRIOR TO AGE 65 (#2) [facility] Start: 02-24-2023 Adult depression screening assessment DEPRESSION SCREENING [facility] Start: 12-02-2022 End: 09-04-2023 ERCP ERCP Endoscopy Routine Biliary stricture Expected: 12/02/2022, Expires: 09/04/2023 [facility] Work Phone: Comment on above: Expected: 12/02/2022 , Expires: 09/04/2023 Start: 07-27-2022 DEPRESSION ASSESSMENT DEPRESSION ASS ESSMENT [facility] Start: 03-27-2022 Influenza vaccination C [facility] Start: 12-30-2021 End: 03-01-2022 Amylase [Enzymatic activity/volume] in Serum or Plasma AMYLASE BLD Lab Routine Expected: 12/30/2021, Expires: 03/01/2022 [facility] Work Phone: Comment on above: Expected: 12/30/2021 , Expires: 03/01/2022 Start: 12-30-2021 End: 03-01-2022 Lipase [Enzymatic activity/volume] in Serum or Plasma LIPASE BLD Lab Routine Expected: 12/30/2021, Expires: 03/01/2022 [facility] Work Phone: Comment on above: Expected: 12/30/2021 , Expires: 03/01/2022 Start: 12-24-2021 End: 01-09-2023 Ct abdomen w/contrast material CT ABDOMEN W IVCON Radiology Routine Expected: 12/24/2021 (Approximate), Expires: 01/09/2023 [facility] Work Phone: Comment on above: Expected: 12/24/2021 (Approximate), Expires: 01/09/2023 Start: 07-27-2021 DEPRESSION ASSESSMENT DEPRESSION ASS ESSMENT [facility] Start: 07-10-2020 Adult depression screening assessment DEPRESSION SCREENING [facility] Start: 07-07-2020 MENINGOCOCCAL B: Consider based on risk (3 of 4 - Increased Risk Bexsero 2-dose series) MENINGOCOCCAL B: Consider based on risk (3 of 4 - Increased Risk Bexsero 2-dose series) [facility] Start: 03-11-2019 MENINGOCOCCAL CONJUG ATE (2 - Risk 2-dose series) MENINGOCOCCAL CONJUGATE (2 - Risk 2-dose series) [facility] Start: 2004 SHINGRIX VACCINE (1 of 2) SHINGRIX VACCINE (1 of 2) [facility] Start: 11-01-2003 ANNUAL PCP TEAM FISHER SWORDFISH BRANDON DISEASE VISIT ANNUAL PCP TEAM CHRONIC DISEASE VISIT [facility] Start: 11-01-2003 BP CONTROLLED (<130/80) BP CONTROLLE D (<130/80) [facility] Start: 1997 COVID-19 VACCINE (1) COVID-19 VACCIN E (1) [facility] Start: 1990 COVID-19 VACCINE (#1) COVID-19 VACCI NE (#1) [facility] Start: 05-02-1986 COVID-19 VACCINE (#1) COVID-19 VACCI NE (#1) [facility] [place] Immunizations Immunization Date Immunization Notes Care Provider Fa cal 04-18-2020 influenza virus vacc ine, split virus (incl. purified surface antigen) Luis Abdalla Other [employer] Other 07-07-2019 meningococcal B vacc ine, recombinant, OMV, adjuvanted Nadja Spencer RN [facility] 05-20-2019 hepatitis A and hepatitis B vaccine Nadja Spencer RN [facility] 05-20-2019 influenza, injectabl e, quadrivalent, contains preservative Nadja Spencer RN [facility] 01-14-2019 haemophilus influenz ae type b vaccine, PRP-OMP conjugate Nadja Spencer RN [facility] 01-14-2019 meningococcal B vacc ine, recombinant, OMV, adjuvanted Nadja Spencer RN [facility] 01-14-2019 meningococcal oligosaccharide (groups A, C, Y and W-135) diphtheria toxoid conjugate vaccine (MCV4O) Nadja Spencer RN [facility] 01-14-2019 pneumococcal conjuga te vaccine, 13 valent Nadja Spencer RN [facility] 10-04-2018 hepatitis A and hepatitis B vaccine Nadja Spencer RN [facility] 10-04-2018 pneumococcal polysaccharide vaccine, 23 valent Nadja Spencer RN [facility] 07-01-2018 hepatitis A and hepatitis B vaccine Nadja Spencer RN [facility] 07-01-2018 influenza, injectabl e, quadrivalent, contains preservative Nadja Spencer RN [facility] 07-01-2018 pneumococcal conjuga te vaccine, 13 valent Nadja Spencer RN [facility] 07-01-2018 tetanus toxoid, redu simon diphtheria toxoid, and acellular pertussis vaccine, adsorbed Nadja Spencer RN [facility] 04-30-2009 hepatitis B vaccine, adult dosage Nadja Spencer RN [facility] Payers Date Payer Category Payer Medicaid MEDICAID [facility] MEDICAID [id number] 2021-Present [phone] [address] [place] [address] Medicaid [id number] 2021 Medicaid [id number] 2021 Medicaid [id number] 2021 Medicare MEDICARE MEDICAR E A AND B [id number] 2021-Present [phone] [address] [address] [place] [address] Medicare [id number] 2021 Medicare [id number] 2021 Medicare [id number] 2020 Medicaid [facility] MEDICAID [facility] MEDICAID [id number] 2020-Present [phone] [address] [place] [address] Medicaid [id number] 1985 Unknown [id number] 1985 Unknown [id number] 1985 Unknown [id number] 1959 Unknown [id number] Social History Date Type Detail Facility Start: 05-04-2018 Tobacco smoking status NHIS Never smoked tobacco [facility] Start: 05-04-2018 Tobacco use and exposure Former smokeless tobacco user [facility] Start: 09-17-2021 End: 09-04-2022 Alcohol intake Current drinker of alcohol (finding) [facility] Start: 07-05-2021 History SDOH Alcohol Comment occasionally [facility] Start: 1985 Sex Assigned At Not on file C [facility] Start: 10-20-2021 End: 2021 Exposure to SARS-CoV-2 (event) Not sure [facility] Sex Assigned At [facility] Tobacco smoking status No Smoking Status Entered [facility] Medical Equipment Procedure Code Equipment Code Equipment Origin al Text Equipment Identifier Dates Stent A[employer]os 15mm 24mm 138mm 10.8fr Nitinol Silicone 10mm 146mm Pancreatic - [id number] Start: 11-01-2021 Stent 10fr Duode nal Bend Plastic 12cm Biliary Temporary Rapid Exchange - [id number] Start: 09-04-2022 Functional Status Date Assessment Result Facility 06-20-2023 Functional Status N/A [facility] Clinical Notes 07-25-2019 to 06-20-2023 Note Date [...] cast on your foot. General instructions Take rzqe-gzv-rehnzqj and prescription medicines only as told by [...] provider. Document Revised: 11/02/2020 Document Reviewed: 11/02/2020 [employer] Patient Education 2022 [employer]. 06/20/2023 18:04:25 Elastic Bandage and RICE Therapy [...] your activities and whether you should start muxnf-lk-eetdtb exercises for your injury. Ice Ice your [...] provider. Document Revised: 09/07/2020 Document Reviewed: 04/02/2018 [employer] Patient Education 2020 [employer] 06/20/2023 18:04:25 Ankle Sprain, Phase II Rehab [...] by your health care provider. Stretching and thzhr-ea-fxezyx exercises These exercises warm up your muscles [...] provider. Document Revised: 09/05/2021 Document Reviewed: 09/05/2021 [employer] Patient Education 2022 [employer] 06/20/2023 18:04:25 Ankle Sprain, Phase I [...] by your health care provider. Stretching and dzlfw-db-viniii exercises These exercises warm up your muscles [...] provider. Document Revised: 09/05/2021 Document Reviewed: 09/05/2021 [employer] Patient Education 2022 [employer] 06/20/2023 18:04:25 Ankle Sprain Ankle Sprain [...] blue. Managing pain, stiffness, and swelling Take yaok-csj-voifamx and prescription medicines only as told by [...] provider. Document Revised: 09/05/2021 Document Reviewed: 09/05/2021 [employer] Patient Education 2022 [employer] Follow Up Care 06/20/2023 15:55:18 With:LUIS RM Address: [facility] [place] [address] Business (1) When:06/23/2023 17:48:00 Comments:Follow-up with your primary care provider in 3 to 5 days. If symptoms worsen, do not improve, or new symptoms arise please report back to emergency department for further evaluation. [facility] 06-20-2023 Evaluation + Plan note Extrac edwardo from: Title:ED Note Author:Dilan Adames PA-C te:06/20/23 Left ankle sprain (S93.402A: Sprain of unspecified ligament of left ankle, initial encounter) Sprain of left foot (S93.602A: Unspecified sprain of left foot, initial encounter) Orders: Air Cast Long [facility]11-16-2023 Evaluation note* Encounter Date Diagnosis Assessment Notes [...] CBD obstruction May, Nausea (ICD-10 - R11.0) [employer] Other 08-24-2023 NoteQ3 Patient Name: Chuckie Villalta [...] procedure well. Moderate Sedation: MAC Findings: A boarding machine operator film of the abdomen was obtained. Surgical [...] present medications. Procedure Code(s): --- Professional --- 63248, Endoscopic retrograde cholangiopancreatography (ERCP); with removal of foreign body(s) or stent(s) from biliary/pancreatic duct(s) 40497, Endoscopic retrograde cholangiopancreatography (ERCP); with removal of calculi/debris from biliary/pancreatic duct(s) 18707, Endoscopic catheterization of the biliary ductal system, [...] Z94.4, Liver transplant status CPT copyright 2020 [employer]. All rights reserved. Attending Participation: I was present and participated during the entire procedure, including non-herr portions. Scope In: 9:20:16 AM Scope Out: 9:35:13 AM MD Betina Troncoso MD 03/19/2023 9:49:13 AM This report has been signed electronically by Betina Quezada MD Number of Addenda: 0 Note Initiated On: 03/19/2023 8:51 [facility]08-24-2023 NoteHNO ID: [id number] Author: Indu Meza, RN Service: Nursing Author Type: Registered Nurse Type: Nursing Progress Note Filed: 03/19/2023 8:29 AM Note Text: VBG collected from [employer] and sent to blood gas lab per MD order. Indu Meza RN[facility] Evaluation note* Encounter Date Diagnosis Assessment [...] < 140/90 and HR less than 90 [employer] Other 05-18-2023 NoteHNO ID: [id number] Author: Yun Hutchinson APRN.PLASTICS ENGINEERING TEACHER Service: ? Author Type: Nurse Acting Section Chief Type: Anesthesia Procedure Notes Filed: 12/11/2022 10:17 AM Note Text: ANESTHESIOLOGY PROCEDURE NOTE Airway General Information Procedure Start Time/Medication Administration: 12/11/2022 10:08 AM Patient location during procedure: OR Timeout Performed Pre-procedure: timeout performed Consent Obtained: Yes Patient identity confirmed: arm band and patient Staffing PLASTICS ENGINEERING TEACHER: Yun Hutchinson APRN.PLASTICS ENGINEERING TEACHER Performed by: PLASTICS ENGINEERING TEACHER Indications and Patient Condition Indications for airway [...] 1 Airway not difficult SIGNATURE: Yun Hutchinson APRN.CRNA PATIENT NAME: Chuckie Villalta DATE: December 11, 2022 TIME: 10:15 AM CSN: [id number] Valley Hospital05-18-2023 NoteQ3 Patient Name: Chuckie Villalta Procedure [...] A biliary stent was visible on the boarding machine operator film. A boarding machine operator film of the abdomen was obtained. Surgical [...] exchange stent. Procedure Code(s): --- Professional --- 25360, Endoscopic retrograde cholangiopancreatography (ERCP); with removal and exchange of stent(s), biliary or pancreatic duct, including pre- and post-dilation and guide wire passage, when performed, including sphincterotomy, when performed, each stent exchanged 39575, 59, Endoscopic retrograde cholangiopancreatography (ERCP); with removal and exchange of stent(s), biliary or pancreatic duct, including pre- and post-dilation and guide wire passage, when performed, including sphincterotomy, when performed, each stent exchanged 61638, 59, Endoscopic retrograde cholangiopancreatography (ERCP); with trans-endoscopic balloon dilation of biliary/pancreatic duct(s) or of ampulla (sphincteroplasty), including sphincterotomy, when performed, each duct 12774, Endoscopic retrograde cholangiopancreatography (ERCP); with removal of calculi/debris from biliary/pancre (more content not included)...[facility]02-27-2023 Miscellaneous Notes* Telephone Encounter - Rashida Liriano RN - 09/22/2022 11:30 AM EST Called and left patient regarding referral to [facility]. Call back number provided. [employer] message with the details also sent. Rashida Liriano RN September 22, 2022 11:32 AM [facility] note* Encounter Date Diagnosis Assessment Notes [...] recipient (ICD-10 - Z94.4) No s/s rejection [employer] Other 02-10-2023 NoteHNO ID: [id number] Author: Jerri Camacho MD Service: Hepatology Author [...] rejection (acute cellular rejection). Pending labs: Anti-HEV [facility] Plan: - F/u percutaneous liver biopsy result [...] Camacho MD Gastroenterology AND Hepatology Fellow Pager [phone] Will d/w staff Dr. Crawford.[facility]02-09-2023 NoteHNO ID: [id number] Author: Minna Dwyer MD Service: General Internal Medicine Author Type: Physician Type: Progress Notes Filed: 09/04/2022 4:09 PM Note Text: DEPARTMENT OF HOSPITAL MEDICINE PROGRESS NOTE SERVICE DATE: 09/04/2022 SERVICE TIME: 3:55 PM Hospital Medicine/Primary Attending: Minna Dwyer MD NIGHT AND WEEKEND COVERAGE: [facility] COVERAGE: Days: [phone], please page Minna Dwyer for patient issues. Nights: [phone], please page Team GIM 6: G/H 8th floor: [address]; Non 8th floor [address] Subjective INTERVAL HPI: No significant events overnight. [...] c/w alcoholic hepatitis with (more content not included)...[facility]02-09-2023 Miscellaneous Notes* Telephone Encounter - Betina Quezada MD - 09/04/2022 2:03 PM EST Stent change with bruna documented in this encounterK[facility]02-09-2023 NoteHNO ID: [id number] Author: Yamilet Giraldo RN Service: Nursing Author Type: Registered Nurse Type: Nursing Progress Note Filed: 09/04/2022 10:58 AM Note Text: Pt nauseous, order for 4mg zofran given per dr junior order, report called to ayana storm rn g100.[facility]02-09-2023 NoteQ3 Patient Name: Chuckie Villalta Procedure [...] procedure well. Moderate Sedation: MAC Findings: A boarding machine operator film of the abdomen was obtained. One [...] present medications. Procedure Code(s): --- Professional --- 41035, Endoscopic retrograde cholangiopancreatography (ERCP); with placement of endoscopic stent into biliary or pancreatic duct, including pre- and post-dilation and guide wire passage, when performed, including sphincterotomy, when performed, each stent 36930, Esophagogastroduodenoscopy, flexible, transoral; with removal of foreign body(s) 65607, Endoscopic catheterization of the biliary ductal system, [...] Z94.4, Liver transplant status CPT copyright 2020 [employer]. All rights reserved. Attending Participation: I personally performed the entire procedure. Scope In: 9:12:21 AM Scope Out: 10:02:05 AM MD Betina Troncoso MD 09/04/2022 10:16:37 AM This report has been signed electronically by Betina Quezada MD Number of Addenda: 0 Note Initiated On: 09/04/2022 8:31 [facility]02-09-2023 NoteHNO ID: [id number] Author: Jerri Camacho MD Service: Hepatology Author [...] Hep delta Ab VZV IgM A1AT phenotype [facility] Plan: - F/u percutaneous liver biopsy results [...] Camacho MD Gastroenterology AND Hepatology Fellow Pager [phone] Will d/w staff Dr. Crawford. Addendum 09/04/22 12:26PM: Prelim path read: No evidence of ACR or chronic rejection; no evidence of bile duct injury or portal vein injury. Changes appear to be most c/w alcoholic hepatitis with severe reactivity. [facility]02-08-2023 NoteHNO ID: [id number] Author: Minna Dwyer MD Service: General Internal Medicine Author Type: Physician Type: Progress Notes Filed: 09/03/2022 2:32 PM Note Text: DEPARTMENT OF HOSPITAL MEDICINE PROGRESS NOTE SERVICE DATE: 09/03/2022 SERVICE TIME: 2:24 PM Hospital Medicine/Primary Attending: Minna Dwyer MD NIGHT AND WEEKEND COVERAGE: [facility] COVERAGE: Days: [phone], please page Minna Dwyer for patient issues. Nights: [phone], please page Team GIM 6: G/H 8th floor: [address]; Non 8th floor [address] Subjective INTERVAL HPI: No significant events overnight. [...] needed Leukocytosis, resolved Se (more content not included)...[facility]02-08-2023 NoteHNO ID: [id number] Author: Jerri Camacho MD Service: Hepatology Author [...] Camacho MD Gastroenterology AND Hepatology Fellow Pager [phone] D/w staff Dr. Crawford.[facility]02-07-2023 NoteHNO ID: [id number] Author: Minna Dwyer MD Service: General Internal Medicine Author Type: Physician Type: Progress Notes Filed: 09/02/2022 2:24 PM Note Text: DEPARTMENT OF HOSPITAL MEDICINE PROGRESS NOTE SERVICE DATE: 09/02/2022 SERVICE TIME: 2:10 PM Hospital Medicine/Primary Attending: Minna Dwyer MD NIGHT AND WEEKEND COVERAGE: [facility] COVERAGE: Days: [phone], please page Minna Dwyer for patient issues. Nights: [phone], please page Team GIM 6: G/H 8th floor: [address]167; Non 8th floor [address] Subjective INTERVAL HPI: No significant events overnight. Pt reports nausea well controlled w/ anti-emetic. No new emesis episodes. Current Facility-Administered Medications Medication Dose Route Frequency NaCl 0.9% iv flush bag 20 mL INTRAVENOUS PRN carvedilol 12.5 mg tab(s) (COREG) 12.5 mg ORAL BID sulfamethoxazole-trimethoprim 800-160 mg 1 tablet (BACTRIM DS,SEPTRA DS) 1 tablet ORAL pantoprazole 40 mg injection (PROTONIX) 40 mg [...] Sepsis ruled out Lactic (more content not included)...[facility]02-06-2023 Note HNO ID: [id number] Author: Minna Dwyer MD Service: General Internal Medicine Author Type: Physician Type: Progress Notes Filed: 09/01/2022 2:25 PM Note Text: DEPARTMENT OF HOSPITAL MEDICINE PROGRESS NOTE SERVICE DATE: 09/01/2022 SERVICE TIME: 1:58 PM Hospital Medicine/Primary Attending: Minna Dwyer MD NIGHT AND WEEKEND COVERAGE: [facility] COVERAGE: Days: [phone], please page Minna Dwyer for patient issues. Nights: [phone], please page Team GIM 6: G/H 8th floor: [address]896; Non 8th floor [address] Subjective INTERVAL HPI: No significant events overnight. [...] tablet (BACTRIM DS,SEPTRA DS) 1 tablet ORAL -WE- pantoprazole 40 mg injection (PROTONIX) 40 mg [...] -Follow blood cultures -U (more content not included)...[facility]02-06-2023 NoteHNO ID: [id number] Author: RT Leonora(R) Service: ? Author Type: [...] BY: RT Leonora(R) September 01, 2022 12:56 [facility]10-07-2022 Miscellaneous Notes* Telephone Encounter - Nadja Spencer [...] RN * Telephone Encounter - Lorena Adames [facility] - 05/01/2022 4:40 PM EDT Patient requests refill of: Requested Prescriptions Pending Prescriptions Disp Refills tacrolimus IR (PROGRAF) 1 mg capsule 120 capsule 3 Sig: Please take 2mg in the morning and 1mg in the evening for a total of 3mg a day. If approved, please e-script the attached order to [facility]. Thank you, Lorena Adames [facility] [phone] documented in this encounterK[facility]08-29-2022 Miscellaneous Notes* Telephone Encounter - Nadja Spencer RN - 03/24/2022 1:17 PM EDT I sent patient a reminder to have lab work drawn as soon as possible as he has not had labs drawn in some time. Encouraged him to reach out with questions. Nadja Spencer RN (Cassie), BSN Liver Wet Silk Hanger documented in this encounterK[facility]08-16-2022 Miscellaneous Notes* Telephone Encounter - Nadja Spencer [...] to. Nadja Spencer (Cassie) RN, BSN Liver Wet Silk Hanger documented in this encounterK[facility]08-02-2022 NoteHNO ID: [id number] Author: SHAQ Chua Service: ? Author Type: Clinical Rehabilitation Liaison Type: Progress Notes Filed: 02/25/2022 10:46 AM Note Text: [facility] Assessment Visit Type:Virtual Visit utilizing two-way audio and video for at least a portion of the visit IDENTIFYING INFORMATION: [phone] [email or web address] Lives with of nine years, Екатерина and [...] consented to virtual evaluation. Patient and this marketing copywriter present during interview. PRECIPITATING PROBLEM(S):Patient was dx with liver disease in 2017. Completed an IOP at [facility] in summer 2018, and received liver transplant [...] Age 16, every other weekend. Went to [employer] for college drank heavily on weekends, then [...] from its effects? Yes (more content not included)...[facility]ppe[facility]44[facility] History of Present illness Narrative* SHAQ Chua - 02/25/2022 9:21 AM EDT [facility] Assessment Visit Type:Virtual Visit utilizing two-way audio and video for at least a portion of the visit IDENTIFYING INFORMATION: [phone] [email or web address] Lives with of nine years, Екатерина andone daughter age five Duration of Interview: start time 9:15 and end time 10:30 pm REFERRAL SOURCE: SHAQ Jaimes liver transplant team BENEFITS: Payor: MEDICARE / Plan: MEDICARE A AND B / Product Type: Medicare / INFORMED CONSENT: Patient completed evaluation via virtual MyChart encounter due to COVID-19. Patient verbally consented to virtual evaluation. Patient and this marketing copywriter present during interview. PRECIPITATING PROBLEM(S):Patient was dx with liver disease in 2017. Completed an IOP at [facility] in summer 2018, and received liver transplant [...] Age 16, every other weekend. Went to [employer] for college drank heavily on weekends, then [...] MEDICATIONS: none PRIOR CHEMICAL DEPENDENCY TREATMENTS: [facility]VE STEP H[facility]ORY: -Longest period [...] None FAMILY/DEVELOPMENTAL HISTORY: -Born/Raised in (City, State): [place], [place]. Grew up on a farm Biological [...] No EMPLOYMENT HISTORY: -Currently employed? 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 No - Are you in need of assistance to identify and explore career interests, aptitudes, and skills andto formulate immediate and chcf vocational goals? No MARITAL HISTORY: Екатерина -Children: [...] camping, campfires SPIRITUAL ASSESSMENT: -Raised in this Rastafarian Background: Jain Current Spiritual/Rastafarian Practices: yes -Belief in a Higher Power: [...] things - anyone or anything (e.g., family, voodoo, pain of ) - that stopped you [...] suicide or other suicidal behavior. From The [employer] Practice Guidelines for the Assessment [...] meaningful daily activities: Yes Currently Employed: Yes Rastafarian affiliation (See spiritual assessment section above) Therapeutic [place]: Does pt believe treatment can help his/her [...] the date of the service which included hdkz-mu-tokx patient care and completing clinical documentation. documented in this encounterK[facility]07-28-2022 History of Present illness Narrative* SHAQ Jaimes [...] Patient states he went through IOP at [facility] and did not have a good experience. SW recommended [facility] to patient and he is agreeable to trying this program. DEONDRE provided contact info and also emailed Jaquelin with this referral. Patient states he will also continue to go to his weekly home groupAA session every Thur at 8pm in [facility]. DEONDRE encouraged clt to reach out with any further questions or concerns. LAURA Jaimes Liver Transplant Social Work documented in this encounterK[facility]07-28-2022 History of Present illness Narrative* SHAQ Jaimes - 02/20/2022 10:05 AM EDT Patient scheduled for virtual follow up visit with DEONDRE today at 1pm. Patient left 2 messages via Gist cancelling appointment due to time conflict. LAURA Jaimes Liver Transplant Social Work documented in this encounterK[facility]06-03-2022 History of Present illness Narrative* FLORENTINO Jaimes) - 12/27/2021 1:00 PM EDT Radiology Service [...] 2021 TIME: 12:54 PM documented in this encounterK[facility]05-23-2022 History of Present illness Narrative* Aidan Larios [...] IS. I spent more than 20 minutes ovtl-ig-sbrw with the patient and over half the time was devoted to counseling and/or coordination of care. Aidan Larios MD documented in this encounterK[facility]04-15-2022 Miscellaneous Notes* Telephone Encounter - Nadja Spencer RN - 11/08/2021 3:18 PM EDT Patient returned my text and said that he will be unavailable on 11/12, as he and his family just arrived at [facility]. He will be available for virtual visit on 11/19. I notified scheduling. Nadja Spencer (Cassie) RN, BSN Liver Wet Silk Hanger * Telephone Encounter - Nadja Spencer RN - 11/08/2021 2:23 PM EDT I called and LMOM and sent patient a text to follow up with him from [facility]. I let him know that I'd be setting him up for a follow up virtual visit with Dr. Larios. Encouraged him to call back with questions or as needed. Nadja Spencer RN (Cassie), BSN Liver Wet Silk Hanger documented in this encounterK[facility]12-17-2021 NoteHNO ID: [id number] Author: Saba Hills MD Service: Hospital Medicine Author Type: Physician Type: Plan of Care Filed: 07/12/2021 9:21 AM Note Text: # Acute Pancreatitis- in setting of biliary stenosis. Resolved. Last amylase was 59 Per recommendation of GI we [facility] that was [...] Vision MRI was negative Will discuss with marketing traffic coordinator We will also consult ID ? Need to look for CMV retinitis Saba Hills MD ?[facility] HospitalNumzojwa79-83-2620 NoteHNO ID: [id number] Author: Maninder Aguilera DO Service: Hospital Medicine Author Type: Physician Type: Progress Notes Filed: 07/11/2021 10:58 AM Note Text: DEPARTMENT OF HOSPITAL MEDICINE PROGRESS NOTE SERVICE DATE: 07/11/2021 SERVICE TIME: 10:15 AM Hospital Medicine/Primary Attending: Maninder Aguilera DO NIGHT AND WEEKEND COVERAGE: [facility] COVERAGE: Days: [phone], please contact via PhoneGuardsage Nights: [phone], please page CC Hospitalist Night coverage pager [phone] Subjective INTERVAL HPI: pt seen at bedside. [...] tablet (BACTRIM DS,SEPTRA DS) 1 tablet ORAL ursodiol 300 mg cap(s) (ACTIGALL) 300 mg [...] VTE Prophylaxis/Anticoagulants 07/09/21 1245 pneumatic compression stockings (tn,oh) VTE Prophylaxis: VTE prophylaxis appropriate Disposition: Home Plan of care discussed with Provider, RN, Patient SIGNATURE: Maninder Aguilera DO PATIENT NAME: Chuckie Villalta DATE: July 11, 2021 TIME: 10:15 AMOrem Community [id number] NoteHNO ID: [id number] Author: Saba Hills MD Service: Hospital Medicine Author Type: Physician Type: Progress Notes Filed: 07/11/2021 5:13 AM Note Text: HOSPITAL MEDICINE PROGRESS NOTE Saba Hills MD NIGHT AND WEEKEND COVERAGE: ERICK COVERAGE: Days: [phone], please contact via [employer] Nights: [phone], please page CC Hospitalist Night coverage pager [phone] Subjective HPI: Interval Events: has pain abdomen [...] sounds + EXTREMITY: : No ankle edema. FUNDER: grossly normal. No focal deficit. Lines, Drains, [...] and GI GI [facility]. History of [...] VTE Prophylaxis/Anticoagulants 07/09/21 1245 pneumatic compression stockings (tn,oh) VTE Prophylaxis: VTE prophylaxis appropriate. Advised to ambulate as tolerated. Plan of care discussed with: Patient, Family/Significant Other: at bedside, RN and Consultants: Neurology, Nephro, GI Saba Hills MD 07/10/2021 11:00 AM Please use Secure messaging to contact me between 7:30 AM and 4:30 PM Chuckie Villalta [id number] NoteHNO ID: [id number] Author: Jolynn Jaquez MD Service: Hospital Medicine Author Type: Physician Type: Progress Notes Filed: 07/09/2021 6:55 PM Note Text: HOSPITAL MEDICINE PROGRESS NOTE NIGHT AND WEEKEND COVERAGE: ERICK COVERAGE: Days: [phone], please contact via PhoneGuardsaAudioPixels Nights: [phone], please page CC Hospitalist Night coverage pager [phone] Hospital Medicine/Primary Attending: Jolynn Jaquez MD Subjective [...] sounds + EXTREMITY: : No ankle edema. FUNDER: grossly normal. No focal deficit. Lines, Drains, [...] ERCP outpatient. Patient to be scheduled at [facility]. Consider starting heparin subq for prophylaxis tomorrow [...] showed no acute process. Discussed with Neuro home economist. Plan to follow up outpatient with Neuro, and consider outpatient MRI brain with contrast if needed. ? Medication and Non-Pharmacologic VTE Prophylaxis/Anticoagulants 07/09/21 1245 pneumatic compression stockings (tn,oh) VTE Prophylaxis: VTE prophylaxis appropriate. Advised to ambulate as tolerated. Plan of care discussed with: Patient, Family/Significant Other: at bedside, RN and Consultants: Neurology, Nephro, GI SIGNATURE: Jolynn Jaquez MD PATIENT NAME: Chuckie Villalta DATE: July 09, 2021 TIME: 4:16 [facility] [id number] NoteHNO ID: [id number] Author: Tani Woodward MD, PhD Service: Neurology [...] Woodward MD, PhD July 09, 2021 3:20 [facility] [id number] NoteHNO ID: [id number] Author: Isa San RDMS, ARLENE Service: Radiology Author Type: Air Traffic Control Specialist Type: Progress Notes Filed: 07/08/2021 12:04 PM [...] San RDMS, ARLENE July 08, 2021 12:03 [facility] [id number] NoteHNO ID: [id number] Author: Jolynn Jaquez MD Service: Hospital Medicine Author Type: Physician Type: Progress Notes Filed: 07/08/2021 11:56 AM Note Text: HOSPITAL MEDICINE PROGRESS NOTE NIGHT AND WEEKEND COVERAGE: ERICK COVERAGE: Days: [phone], please contact via [employer] Nights: [phone], please page CC Hospitalist Night coverage pager [phone] Hospital Medicine/Primary Attending: Jolynn Jaquez MD Subjective [...] tenderness in EXTREMITY: : No ankle edema. FUNDER: grossly normal. No focal deficit. Cranial nerves [...] is still waiting to be transferred to [facility]). Pain management consult. YOAN on CKD In [...] Villalta DATE: July 08, 2021 TIME: 11:30 [facility] TownshipWjmvcwuq45-50-6201 NoteHNO ID: [id number] Author: Jolynn Jaquez MD Service: Hospital Medicine Author Type: Physician Type: Progress Notes Filed: 07/07/2021 3:10 PM Note Text: HOSPITAL MEDICINE PROGRESS NOTE NIGHT AND WEEKEND COVERAGE: ERICK COVERAGE: Days: [phone], please contact via [employer] Nights: [phone], please page CC Hospitalist Night coverage pager [phone] Hospital Medicine/Primary Attending: Jolynn Jaquez MD Subjective HPI: Interval Events: HAIR MACHINE OPERATOR and prn dilaudid helping with pain abdomen. [...] minimal palpation EXTREMITY: : No ankle edema FUNDER: grossly normal. No focal deficit. Lines, Drains, and Airways Line Peripheral 07/05/21 1811 Right Antecubital 20 Gauge 1 day Peripheral 07/05/21 1923 Short Left Antecubital 20 Gauge 1 day Reviewed lines and needs to be continued: REASONS: Intravenous fluids Medications: Reviewed Diagnostic tests reviewed: Most recent imaging Most recent labs Assessment AND Plan Active Hospital Problems as of 07/07/2021 Noted - Resolved POA Hospital * (Principal) [...] input Patient waiting to be transferred to [facility]. Likely needs ERCP. Pain control with fentanyl HAIR MACHINE OPERATOR, dilaudid prn Close monitoring ? Hemochromatosis 03/18/2018 [...] to get update regarding bed availability at [facility]. No bed assigned at [facility] yet. SIGNATURE: Jolynn Jaquez MD PATIENT NAME: Chuckie Villalta DATE: July 07, 2021 TIME: 2:59 [facility] [id number] NoteHNO ID: [id number] Author: Roma Horan MD Service: Hospital Medicine Author Type: Physician Type: Progress Notes Filed: 07/06/2021 12:47 PM Note Text: DEPARTMENT OF HOSPITAL MEDICINE PROGRESS NOTE SERVICE DATE: 07/06/2021 SERVICE TIME: 12:43 PM Hospital Medicine/Primary Attending: Roma Horan MD NIGHT AND WEEKEND COVERAGE: ERICK COVERAGE: Days: [phone], please contact via PhoneGuardsage Nights: [phone], please page CC Hospitalist Night coverage pager [phone] Subjective INTERVAL HPI: c/o 8/10 abdominal pain. [...] INTRAVENOUS q 6 H PRN - fentaNYL HAIR MACHINE OPERATOR 20 mcg/mL in NaCl 0.9% 100 mL [...] a noncontrast examination - [facility] - IV fluids, NPO except meds - symptom management - Vanco, cipro, flagyl started in ED--c/w same for now. Leukocytosis resolved today -improving lipase - Consult GI, pending [facility], appreciate recs. May need [...] recipient (HCC) Assessment AND Plan: [facility], admits some noncompliance with medications as of late, and rare alcohol use - transfer to [facility] for continued care when able - continue prograf. Will hold Actigall while NPO ? Primary hypertension Assessment AND Plan: elevated in ED, likely due to pain and missed doses - resume po antihypertensives as able - manage pain as able Medication and Non-Pharmacologic VTE Prophylaxis/Anticoagulants VTE Prophylaxis: VTE prophylaxis appr (more content not included)...[facility] HospitalIiowvxih84-70-8475 NoteHNO ID: [id number] Author: Interface Note Service: ? Author Type: ? Type: Progress Notes Filed: 07/06/2021 2:53 AM Note Text: Epic Scheduled Downtime: 07/06/2021 1:00:00 AM to 07/06/2021 2:38:59 AMOrem Community HospitalLbhygwbi29-23-1465 NoteHNO ID: [id number] Author: Lisseth Raymond APRN.[facility] Service: Hospital Medicine Author Type: Nurse Practitioner Type: Plan of Care Filed: 07/05/2021 11:59 PM Note Text: Patient's pain not being controlled with prn dilaudid. Per Up to Date, HAIR MACHINE OPERATOR recommended and fentanyl the safest drug to use for this purpose I discussed case with Dr Shook, I also discussed with the NOM and the pharmacist. A HAIR MACHINE OPERATOR pump ordered. Lisseth Raymond APRN.[facility] HospitalXwloknrr29-07-1033 NoteHNO ID: [id number] Author: RT Alok(R) Service: ? Author Type: [...] BY: RT Alok(R) July 05, 2021 11:38 [facility] HospitalVtgwmhrc60-45-4789 NoteHNO ID: [id number] Author: RT Devorah(R) Service: Radiology Author Type: [...] Soila Parker RT(R) July 05, 2021 7:00 [facility] HospitalYmqgqesc02-84-5054 History of Past illness Narrative* Problem Noted [...] of this encounter (statuses as of 11/08/2021) [facility] History of Past illness Narrative* Problem Noted [...] of this encounter (statuses as of 12/16/2021) [facility] History of Past illness Narrative* Problem Noted [...] of this encounter (statuses as of 12/28/2021) [facility] History of Past illness Narrative* Problem Noted [...] of this encounter (statuses as of 12/28/2021) [facility] of Past illness Narrative* Problem Noted [...] of this encounter (statuses as of 02/20/2022) [facility] of Past illness Narrative* Problem Noted [...] of this encounter (statuses as of 02/25/2022) [facility] of Past illness Narrative* Problem Noted [...] of this encounter (statuses as of 03/11/2022) [facility] of Past illness Narrative* Problem Noted [...] of this encounter (statuses as of 03/24/2022) [facility] of Past illness Narrative* Problem Noted [...] of this encounter (statuses as of 05/05/2022) [facility] of Past illness Narrative* Problem Noted [...] of this encounter (statuses as of 07/28/2022) [facility] of Past illness Narrative* Problem Noted [...] of this encounter (statuses as of 09/04/2022) [facility] of Past illness Narrative* Problem Noted [...] of this encounter (statuses as of 09/04/2022) [facility] of Past illness Narrative* Problem Noted [...] of this encounter (statuses as of 09/22/2022) [facility]* Diagnosis Liver replaced by transplant (HCC)- Primary Liver replaced by transplant [facility] Diagnosis Liver replaced by transplant (HCC)- Primary Liver replaced by transplant Need for prophylactic immunotherapy [facility]* Diagnosis Uncomplicated alcohol dependence (HCC) Other and unspecified alcohol dependence, unspecified drinking behavior [facility]* Diagnosis Liver transplant recipient (HCC)- Primary documented in this encounter [facility] note* Diagnosis 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 documented in this encounter [facility] general Narrative - Reported* Type Description Date [...] History COLONOSCOPY 2019 Hospitalization History See Above [employer] Other History general Narrative - Reported* Type [...] stent replaced 11/2022 Hospitalization History See Above [employer] Other History general Narrative - Reported* Type [...] History ERCP 02/2023 Hospitalization History See Above [employer] Other Hospital course Narrative No data available for this section [facility] No data available for this section [facility] HospitalReason for referral (narrative)* Outpatient Procedure (Routine) - Pending Review Specialty Diagnoses / Procedures Referred By Vale lopez Referred To Contact [facility] Diagnoses Biliary stricture Procedures ERCP ERCP DX COLLECTION SPECIMEN BRUSHING/WASHING Betina Quezada MD [address] [place] [address] [facility] [address] [place] [address] Referral ID Status Reason Start Date Expiration Date Visits Requested Visits Authorized [id number] Pending Review Auto-Generat ed Referral 12/02/2022 09/04/2023 1 1 [facility] Summary Purpose Family History No Family History Records FoundNo Family History Records FoundNo Family History Records FoundNo Family History Records FoundNo Family History Records Found No data available for this section No Family History Records FoundNo Family History Records Found Advance Directives No Advanced Directives Records FoundDocuments on File Type Date Recorded Patient Tool Supervisor Expl anation Advance Directive(s) 10/30/2021 12:47 PM Advance Directive(s) 07/05/2021 6:47 PM Advance Directive(s) 07/16/2020 12:03 PM Advance Directive(s) 05/02/2020 10:37 AM Advance Directive(s) 07/10/2019 5:35 PM Advance Directive(s) 01/21/2019 3:11 PM Advance Directive(s) 10/06/2018 10:21 AM Advance Directive(s) 07/13/2018 6:11 AM Documents on File Type Date Recorded Patient Tool Supervisor Expl anation Advance Directive(s) 10/30/2021 12:47 PM Advance Directive(s) 07/05/2021 6:47 PM Advance Directive(s) 07/16/2020 12:03 PM Advance Directive(s) 05/02/2020 10:37 AM Advance Directive(s) 07/10/2019 5:35 PM Advance Directive(s) 01/21/2019 3:11 PM Advance Directive(s) 10/06/2018 10:21 AM Advance Directive(s) 07/13/2018 6:11 AM Documents on File Type Date Recorded Patient Tool Supervisor Expl anation Advance Directive(s) 10/06/2018 10:21 AM Latest Code Status on File Code Status Date Activated Date Inactivated Comments Full Code 09/01/2022 12:05 AM Full Code Order Discussed With: Patient Documents on File Type Date Recorded Patient Tool Supervisor Expl anation Advance Directive(s) 10/06/2018 10:21 AM Latest Code Status on File Code Status Date Activated Date Inactivated Comments Full Code 09/01/2022 12:05 AM Latest Code Status on File Code Status Date Activated Date Inactivated Comments Full Code 09/01/2022 12:05 AM 09/05/2022 8:59 PM Reason for Referral Specialty Diagnoses / Procedures Referred By Vale t Referred To Contact CT IMAGING Diagnoses Alcohol-induced acute pancreatitis, unspecified complication status Procedures CT ABDOMEN W IVCON CT ABDOMEN W/CONTRAST Aidan Larios MD [address] [place] [address] Ct Imaging Referral ID Status Reason Start Date Expiration Date Visits Requested Visits Authorized [id number] Pending Review Auto-Generat ed Referral 12/24/2021 01/09/2023 1 1 Referral ID Status Reason Start Date Expiration Date V isits Requested Visits Authorized [id number] Closed Auto-Generated Referral Patient Cleared - INN Insurance Found 12/24/2021 01/09/2023 1 1 Additional Source Comments (unrecognized sect ion and content) No Status Records FoundNo Status Records FoundNo Status Records FoundNo Status Records FoundNo Status Records FoundNo Status Records FoundNo Status Records Found INFORMATION SOURCE (unrecogn ized section and content) DATE CREATED AUTHOR 12/20/2020 [facility] DATE CREATED AUTHOR AUTHOR'S ORGANIZ ATION 07/13/2021 [facility] DATE CREATED AUTHOR AUTHOR'S ORGANIZ ATION 08/18/2021 [facility] DATE CREATED AUTHOR AUTHOR'S ORGANIZ ATION 11/09/2022 [facility] DATE CREATED AUTHOR AUTHOR'S ORGANIZ ATION 03/20/2023 [facility] DATE CREATED AUTHOR AUTHOR'S ORGANIZ ATION 06/28/2023 [facility] DATE CREATED AUTHOR AUTHOR'S ORGANIZ ATION 10/02/2023 [facility] Source Comments (unrecognize d section and content) In the event this informatio n is protected by the Federal Confidentiality of Alcohol and Drug Abuse Patient Records regulations: The Federal rules restrict any use of the information to criminally investigate or prosecute any alcohol or drug abuse patient.[facility] MemorialIn the event this information is protected by the Federal Confidentiality of Alcohol and Drug Abuse Patient Records regulations: The Federal rules restrict any use of the information to criminally investigate or prosecute any alcohol or drug abuse patient.[facility] MemorialIn the event this information is protected by the Federal Confidentiality of Alcohol and Drug Abuse Patient Records regulations: The Federal rules restrict any use of the information to criminally investigate or prosecute any alcohol or drug abuse patient.[facility] MemorialIn the event this information is protected by the Federal Confidentiality of Alcohol and Drug Abuse Patient Records regulations: The Federal rules restrict any use of the information to criminally investigate or prosecute any alcohol or drug abuse patient.[facility] MemorialIn the event this information is protected by the Federal Confidentiality of Alcohol and Drug Abuse Patient Records regulations: The Federal rules restrict any use of the information to criminally investigate or prosecute any alcohol or drug abuse patient.[facility] MemorialIn the event this information is protected by the Federal Confidentiality of Alcohol and Drug Abuse Patient Records regulations: The Federal rules restrict any use of the information to criminally investigate or prosecute any alcohol or drug abuse patient.[facility] MemorialIn the event this information is protected by the Federal Confidentiality of Alcohol and Drug Abuse Patient Records regulations: The Federal rules restrict any use of the information to criminally investigate or prosecute any alcohol or drug abuse patient.[facility] MemorialIn the event this information is protected by the Federal Confidentiality of Alcohol and Drug Abuse Patient Records regulations: The Federal rules restrict any use of the information to criminally investigate or prosecute any alcohol or drug abuse patient.[facility] MemorialIn the event this information is protected by the Federal Confidentiality of Alcohol and Drug Abuse Patient Records regulations: The Federal rules restrict any use of the information to criminally investigate or prosecute any alcohol or drug abuse patient.[facility] MemorialIn the event this information is protected by the Federal Confidentiality of Alcohol and Drug Abuse Patient Records regulations: The Federal rules restrict any use of the information to criminally investigate or prosecute any alcohol or drug abuse patient.[facility] MemorialIn the event this information is protected by the Federal Confidentiality of Alcohol and Drug Abuse Patient Records regulations: The Federal rules restrict any use of the information to criminally investigate or prosecute any alcohol or drug abuse patient.[facility] MemorialIn the event this information is protected by the Federal Confidentiality of Alcohol and Drug Abuse Patient Records regulations: The Federal rules restrict any use of the information to criminally investigate or prosecute any alcohol or drug abuse patient.[facility] MemorialIn the event this information is protected by the Federal Confidentiality of Alcohol and Drug Abuse Patient Records regulations: The Federal rules restrict any use of the information to criminally investigate or prosecute any alcohol or drug abuse patient.[facility] MemorialIn the event this information is protected by the Federal Confidentiality of Alcohol and Drug Abuse Patient Records regulations: The Federal rules restrict any use of the information to criminally investigate or prosecute any alcohol or drug abuse patient.[facility] Reason for Visit (unrecogniz ed section and content) Reason Comments Radiology CT Specialty Diagnoses / Procedures Referred By Contjennifer t Referred To Contact CT IMAGING Diagnoses Alcohol-induced acute pancreatitis, unspecified complication status Procedures CT ABDOMEN W IVCON CT ABDOMEN W/CONTRAST Aidan Larios MD [address] [place] [address] Ct Imaging Referral ID Status Reason Start Date Expiration Date V isits Requested Visits Authorized [id number] Closed Auto-Generated Referral Patient Cleared - INN Insurance Found 12/24/2021 01/09/2023 1 1 Reason Comments Hospital Follow Up Reason Comments Established Patient Reason Comments Covid19 Concern Reason Comments Reminder To Have Labs Drawn Reason Comments Refill Request Reason Comments Endoscopy Call Reason Comments Care Coordination [facility] clinic Care Teams (unrecognized sec tion and content) Rough Rounder Relationship Specialty Start Date End Date Luis Abdalla, DO [address] [place] [address] PCP - General Internal Medicine 01/12/18 Angie Fernandes Jr. [address] [address] Referring Gastroenterology 01/12/18 Nadja Spencer RN [facility] [address] [place] [address] Transplant Center 08/31/19 Rough Rounder Relationship Specialty Start Date End Date Luis Abdalla, DO [address] [place] [address] PCP - General Internal Medicine 01/12/18 Angie Fernandes Jr. [address] [address] Referring Gastroenterology 01/12/18 Nadja Spencer RN [facility] [address] [place] [address] Transplant Center 08/31/19 Rough Rounder Relationship Specialty Start Date End Date Luis Abdalla, DO [address] [place] [address] PCP - General Internal Medicine 01/12/18 Angie Fernandes Jr. [address] [address] Referring Gastroenterology 01/12/18 Nadja Spencer, BATOOL [facility] [address] [place] [address] Transplant Center 08/31/19 Rough Rounder Relationship Specialty Start Date End Date Luis Abdalla, DO [address] [place] [address] PCP - General Internal Medicine 01/12/18 Angie Fernandes Jr. [address] [address] Referring Gastroenterology 01/12/18 Nadja Spencer, BATOOL [facility] [address] [place] [address] Transplant Center 08/31/19 Rough Rounder Relationship Specialty Start Date End Date Luis Abdalla, DO [address] [place] [address] PCP - General Internal Medicine 01/12/18 Angie Fernandes Jr. [address] [address] Referring Gastroenterology 01/12/18 Nadja Spencer, BATOOL [facility] [address] [place] [address] Transplant Center 08/31/19 Rough Rounder Relationship Specialty Start Date End Date Luis Abdalla, DO [address] [place] [address] PCP - General Internal Medicine 01/12/18 Angie Fernandes Jr. [address] [address] Referring Gastroenterology 01/12/18 Nadja Spencer, BATOOL [facility] [address] [place] [address] Transplant Center 08/31/19 Rough Rounder Relationship Specialty Start Date End Date Luis Abdalla, DO [address] [place] [address] PCP - General Internal Medicine 01/12/18 Angie Fernandes Jr., DO [address] [place] [address] Referring Gastroenterology 01/12/18 Nadja Spencer RN [facility] [address] [place] [address] Transplant Center 08/31/19 Rough Rounder Relationship Specialty Start Date End Date Luis Abdlala, DO [address] [place] [address] PCP - General Internal Medicine 01/12/18 Angie Fernandes Jr., DO [address] [place] [address] Referring Gastroenterology 01/12/18 Nadja Spencer RN [facility] [address] [place] [address] Transplant Center 08/31/19 Rough Rounder Relationship Specialty Start Date End Date Luis Abdalla, DO [address] [facility] [place] [address] PCP - General Internal Medicine 01/12/18 Angie Fernandes Jr., DO [address] [place] [address] Referring Gastroenterology 01/12/18 Nadja Spencer RN [facility] [address] [place] [address] Transplant Center 08/31/19 Rough Rounder Relationship Specialty Start Date End Date Luis Abdalla, DO [address] [facility] [place] [address] PCP - General Internal Medicine 01/12/18 Angie Fernandes Jr., DO [address] [address] Referring Gastroenterology 01/12/18 Nadja Spencer RN [facility] [address] [place] [address] Transplant Center 08/31/19 FOR RECORDS PERTAINING TO [...] BE BASED ON THE PRIMARY CLINICAL RECORDS. [facility] [employer] provides no warranty or guarantee of the accuracy or completeness of information in this document.
== END 2023-10-07 09:25 | disposition home or self-care (01) ==
LOC: MRI 09:24
PROVIDERS: PCP Internal Medicine; Visit Provider Anesthesiology
DX: M48.062 Spinal stenosis, lumbar region with neurogenic claudication (principal); M51.36 Other intervertebral disc degeneration, lumbar region
CPT/HCPCS: 72148

== ENCOUNTER 2023-10-19 14:43 | Outpatient (OUT) | payer MEDICARE, MEDICAID, SELFPAY ==
--- NOTE | 2023-10-19 15:15 | P.CN_ITS ---
Consult Note: HPI Data of Consult Patient: known to practice within the last 3 years Consult date: 10/19/23 Requesting Physician: Vicente Thompson MD Primary Care Provider: Luis Hicks DO Consult Narrative Reason for consult: bilateral foot pain Narrative: 37yom who presents for assessment. persistent foot pain, L>R. states that he has been doing better recently. does not take medication for this. mri shows annular disc tears at l4-5 and l5-s1, stenosis at l4-5 and l5-s1. continues in provider directed home exercise program >6 weeks. denies adverse med side effects. cc:: CC: Vicente Thompson MD Review of Systems ROS Status of ROS 10 or more systems reviewed and unremark able except as noted in history and below Meds Home Medications and Allergies Home Medications ?Medication ?Instructions ?Recorded ?Confirmed ?Type Bactrim .QOTHER 09/28/23 History amlodipine 10 mg tablet 10 mg PO DAILY 09/28/23 09/28/23 History carvedilol 12.5 mg tablet 25 mg PO BID 09/28/23 09/28/23 History magnesium 200 mg tablet 400 mg PO DAILY 09/28/23 09/28/23 History pantoprazole 40 mg tablet,delayed mg PO 09/28/23 History release tacrolimus 1 mg capsule, 3 mg PO BID 09/28/23 09/28/23 History immediate-release ursodiol 300 mg capsule 300 mg PO TID 09/28/23 09/28/23 History Allergies Allergy/AdvReac Type Severity Reaction Status Date / Time midazolam [From Versed] Allergy Unknown Verified 09/28/23 13:44 Penicillins Allergy Unknown Verified 09/28/23 13:44 Exam Narrative Exam Narrative: Psych-alert and oriented x 3. Attentive and appropriate, constitutionally normal, displays normal mood and affect per situation.? There are no obvious deficits in memory, reasoning, or intellect.? Skin-no obvious rashes, bruising, erythema noted to the patient's area of pain. Extremities- extremities are warm with minimal edema and palpable pulses. Lumbar-no significant tenderness to palpation noted in the lumbar spine and par aspinal musculature.? Range of motion is slightly diminished with these motions due to pain. Coordination remains intact.? Gait remains non-antalgic. Assessment and Plan Assessment and Plan (1) Lumbar stenosis without neurogenic claudication: (2) Lumbar radiculopathy: Plan 37yom who presents for assessment. states that feet are doing better at this time. reviewed lumbar mri findings with him. also reviewed emg, which was normal. discussed that if pain were to return, given symptoms and imaging, may be prudent to attempt bilateral l5-s1 tfesi under fluoroscopic guidance. he expressed understanding. meds reviewed, no changes. follow up as needed.
== END 2023-10-19 14:44 | disposition home or self-care (01) ==
LOC: PM 14:44
PROVIDERS: PCP Internal Medicine; Visit Provider Anesthesiology
DX: M48.062 Spinal stenosis, lumbar region with neurogenic claudication (principal); M54.16 Radiculopathy, lumbar region
CPT/HCPCS: G0463

== ENCOUNTER 2023-12-28 09:38 | Day surgery (SDC) | payer MEDICARE, MEDICAID, SELFPAY ==
[2023-12-28 09:59] VITALS: BP 142/98; PULSE 89; TEMP 36.9; O2SAT 96
[2023-12-28 10:29] VITALS: BP 146/68; BP 177/109; PULSE 77; PULSE 87; O2SAT 97; O2SAT 98
[2023-12-28] MEDS: 0.9 % SODIUM CHLORIDE 10 ML SYRINGE - SALINE FLUSH INJ (10:29)
[2023-12-28] MEDS: TRIAMCINOLONE ACETONIDE 40 MG/ML VIAL INJ (10:29)
[2023-12-28] MEDS: BUPIVACAINE HCL 0.25% PF 25 MG/10 ML VIAL INJ (10:29)
[2023-12-28] MEDS: IOHEXOL 240 MG/ML - 10 ML VIAL INJ (10:29)
[2023-12-28] MEDS: LIDOCAINE HCL 2% PF 100 MG/5 ML VIAL INJ (10:30)
--- NOTE | 2023-12-28 10:31 | W.PM.PROCNOT ---
Date of procedure: 12/28/23 Pre-op diagnosis: Lumbar stenosis with neurogenic claudication Post-op diagnosis: same as pre-op Procedure: Procedure: Bilateral L5-S1 transforaminal epidural steroid injection Medications: Bupivacaine 0.25% 2cc, lidocaine 2% 1cc, kenalog 80mg The patient was seen and examined in the preoperative holding area.? Informed consent was obtained and placed on the chart.? Patient was brought to the medical procedure unit and placed in the prone position where a timeout was completed verifying the correct patient, procedure site, position, and planned special equipment using sterile aseptic technique.? Under direct fluoroscopic visualization a 25-gauge Quincke tipped spinal needle was advanced at level left L5-S1 to the designated neural foramen where contrast dye was injected to show adequate spread.? There was no evidence of vascular or adverse uptake.? Epidural spread was appreciated.? The above-mentioned injectate was then placed in a 1.5 mL aliquot preceded by negative aspiration.? The needle was removed. The same procedure, at the same level, was completed on the opposite side. ? Patient was taken to the postprocedural recovery area and monitored for an appropriate length of time before found suitable for discharge in the accompaniment of a responsible adult. Anesthesia: Local Surgeon: Vicente Thompson Pathology: none sent Condition: stable Disposition: no change
== END 2023-12-28 10:35 | disposition home or self-care (01) ==
PROVIDERS: PCP Internal Medicine; Visit Provider Anesthesiology
DX: M48.062 Spinal stenosis, lumbar region with neurogenic claudication (principal)
CPT/HCPCS: 64483; Q9966

== ENCOUNTER 2024-03-07 15:11 | Outpatient (OUT) | payer MEDICARE, MEDICAID, SELFPAY ==
--- NOTE | 2024-03-07 15:29 | P.CN_ITS ---
Consult Note: HPI Data of Consult Patient: known to practice within the last 3 years Consult date: 03/07/24 Requesting Physician: Vicente Thompson MD Primary Care Provider: Luis Hicks DO Consult Narrative Reason for consult: low back, bilateral foot pain Narrative: 38yom who presents for assessment. notes some returning pain in low back with radiation into bilateral feet. previously underwent bilateral l5-s1 tfesi under fluoroscopic guidance, which provided 100% relief, was much more active and able to perform activities. recently started gabapentin 100mg bid, with benefit. continues in a series of provider directed home exercises, which he has done for >6 weeks. denies adverse med side effects. cc:: CC: Vicente Thompson MD Review of Systems ROS Status of ROS 10 or more systems reviewed and unremark able except as noted in history and below [facility] Medical History (Updated 12/18/23 @ 07:55 by Annette Saavedra) Liver transplant failure and rejection ?T86.42 - Liver transplant failure (ICD-10) ?T86.41 - Liver transplant rejection (ICD-10) Acid reflux ?K21.9 - Gastro-esophageal reflux disease without esophagitis (ICD-10) Hemochromatosis ?E83.119 - Hemochromatosis, unspecified (ICD-10) High blood pressure ?I10 - Essential (primary) hypertension (ICD-10) Surgical History History of fusion of cervical spine ?Z98.1 - Arthrodesis status (ICD-10) History of ERCP ?Z98.890 - Other specified postprocedural states (ICD-10) History of liver transplant ?Z94.4 - Liver transplant status (ICD-10) Meds Home Medications and Allergies Home Medications ?Medication ?Instructions ?Recorded ?Confirmed ?Type Bactrim .QOTHER 09/28/23 History amlodipine 10 mg tablet 10 mg PO DAILY 09/28/23 12/28/23 History carvedilol 12.5 mg tablet 25 mg PO BID 09/28/23 12/28/23 History magnesium 200 mg tablet 400 mg PO DAILY 09/28/23 12/28/23 History pantoprazole 40 mg tablet,delayed mg PO 09/28/23 History release tacrolimus 1 mg capsule, 3 mg PO BID 09/28/23 12/28/23 History immediate-release ursodiol 300 mg capsule 300 mg PO TID 09/28/23 12/28/23 History Allergies Allergy/AdvReac Type Severity Reaction Status Date / Time midazolam [From Versed] Allergy Unknown Verified 12/28/23 09:56 Penicillins Allergy Unknown Verified 12/28/23 09:56 Exam Narrative Exam Narrative: Psych-alert and oriented x 3. Attentive and appropriate, constitutionally normal, displays normal mood and affect per situation. There are no obvious deficits in memory, reasoning, or intellect.? Skin-no obvious rashes, bruising, erythema noted to the patient's area of pain.? Extremities- extremities are warm with minimal edema and palpable pulses. Lumbar-tenderness to palpation noted in the lumbar spine and paraspinal musculature. Pain is not elicited with flexion, extension, and lateral rotation of the lumbar spine. Range of motion is not diminished with these motions. Facet loading maneuvers are negative.? Strength-noted to be unremarkable with the exception of decreased strength rated at 4 out of 5 in bilateral anterior tibialis, posterior tibialis. Sensory-no notable sensory deficits in the bilateral lower extremities to touch or pinprick in all dermatomal distributions with the exception to decreased sensation to the bilateral L4, 5 dermatomal distribution Coordination remains intact.? Gait remains non-antalgic. Assessment and Plan Assessment and Plan (1) Lumbar stenosis without neurogenic claudication: Plan 38yom who presents for assessment. failed conservative measures, as noted. imaging shows stenosis at l5-s1. given significant relief with previous injection and current symptoms, prudent to attempt bilateral l5-s1 tfesi under fluoroscopic guidance. he is in agreement. meds reviewed. agreed to take over gabapentin 100mg bid. follow up after procedure.
== END 2024-03-07 15:12 | disposition home or self-care (01) ==
LOC: PM 15:13
PROVIDERS: PCP Internal Medicine; Visit Provider Anesthesiology
DX: M48.062 Spinal stenosis, lumbar region with neurogenic claudication (principal)
CPT/HCPCS: G0463

== ENCOUNTER 2024-04-04 07:14 | Day surgery (SDC) | payer MEDICARE, MEDICAID, SELFPAY ==
--- OUTSIDE RECORDS SUMMARY | 2024-04-04 07:18 | XMS_ITS | CCD ---
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 Unavailable Nadja Spencer RN Unavailable Unavailable Luis Abdalla DO Primary Care Provider Angie Fernandes Jr. Unavailable Nadja Spencer RN Unavailable Unavailable Dena Pineda DO, David L Unavailable [phone] Nadja Spencer RN Unavailable Unavailable Luis Abdalla DO Primary Care Provider Dena Pineda DO, David L Unavailable [phone] Nadja Spencer RN Unavailable Unavailable Luis Abdalla Unavailable LUIS ABDALLA Primary Care Unavailable ROSEMARIE DURAN Attending Unavailable BETINA QUEZADA Referring Unavailable HENRIETTA BREWSTER Attending Unavailable LUIS ABDALLA Primary Care Unavailable BETINA QUEZADA Attending Unavailable BETINA QUEZADA Referring Unavailable LUIS ABDALLA Primary Care Unavailable LUIS ABDALLA Primary Care Unavailable REYMUNDO MINNA Attending Unavailable REYMUNDO CHARLES Admitting Unavailable REYMUNDO, MINNA Referring Unavailable SUZIE KNOTT Attending Unavailable LUIS ABDALLA Primary Care Unavailable LUIS ABDALLA Primary Care Unavailable BENNY CLEMONS Referring Unavailable LUIS ABDALLA Primary Care Physician Wilmer Rosenberg Attending Unavailable Donna GIRON, Vicente Saavedra Attending Unavailable Donna GIRON, Vicente Saavedra Attending Unavailable Donna GIRON, Vicente Saavedra Attending Unavailable Donna GIRON, Vicente Saavedra Attending Unavailable Allergies Allergy Classification Reported Allergen(s) Allergy Type Date of Onset Reaction(s) Facility Penicillins (antibiotic) (1 source) Penicillin Drug Allergy [facility] Rep[facility] (17 sources) Midazolam; Translations: [MIDAZOLAM] Drug Allergy 1 Other: See Comments [facility] (7 sources) Penicillins; Translations: [PENICILLINS] Drug Allergy 4 Unknown, Swelling [facility] Work Phone: (16 sources) Seasonal allergy; Translations: [SEASONAL ALLERGIES] Propensity to adverse reactions 8 Unknown [facility] (10 sources) Penicillins Drug Allergy Unknown [facility] Work Phone: (4 sources) penicillAMINE Drug Allergy 4 Unknown, Unknown Reaction [facility] (2 sources) Penicillin; Translations: [penicillin] Drug Allergy Urticaria (disorder) [facility] Medications Current Medications Medication Drug Class(es) Dates Sig (Normalized) Sig (Original) amLODIPine (18 sources) Dihydropyridine Calcium Channel Yazan Start: 11-18-2023 take 1 tablet by mouth once daily Amlodipine Active 0 .ROUTE .COMPLEX 90 November 18, 2023 2:35pm TAKE 1 TABLET BY MOUTH EVERY DAY Start: 10-13-2019 End: 11-18-2023 take 10 mg by mouth once daily Amlodipine Discontinued 10 MG PO Daily February 18, 2021 12:00am November 18, 2023 2:35pm Comment on above: TAKE 1 TABLET BY SYLVESTER TH ONCE DAILY. carvedilol 12.5 mg oral tablet (19 sources) alpha-Adrenergic Yazan, beta-Adrenergic Yazan Start: 11-18-2023 take 1 tablet by mouth twice daily at mealtime Carvedilol Active 0 .ROUTE .COMPLEX 180 November 18, 2023 2:35pm TAKE 1 TABLET BY MOUTH TWICE DAILY WITH FOOD Start: 02-18-2021 End: 11-18-2023 take 1 tablet by mouth twice daily carvedilol (COREG) 12.5 mg tablet Take 1 tablet by mouth twice daily. 0 07/12/2021 Active take 1 tablet by sylvester th every twelve hours Carvedilol 25 MG 1 tablet with food Oral Twice a day Active Comment on above: Take 1 tablet by sylvester th twice daily. cyclobenzaprine hydrochloride 10 mg oral tablet (1 source) Muscle Relaxant Start: 2020 take 10 mg by mouth three times daily Cyclobenzaprine Active 10 MG PO Three times daily February 26, 2021 12:00am 0.4 ml enoxaparin sodium 100 mg/ml prefilled syringe (4 sources) Low Molecular Weight Heparin Start: 2021 End: 2021 inject 40 mg by subcutaneous injection every twelve hours enoxaparin (LOVENOX) 40 mg/0.4 mL Inject 0.4 mL subcutaneously every 12 hours. 24 mL 2 11/04/2021 02/02/2022 Active Comment on above: Inject 0.4 mL subcut aneously every 12 hours. gabapentin 100 mg oral capsule (1 source) Anti-epileptic Agent Start: 2023 take 100 mg by mouth three times daily Gabapentin Active 100 MG PO Three times daily 30 February 29, 2024 12:00am irbesartan 75 mg oral tablet (1 source) Angiotensin 2 Receptor Yazan Start: 2020 take 75 mg by mouth once daily at bedtime Irbesartan Active 75 MG PO Daily at bedtime February 18, 2021 12:00am Multivitamin preparation (1 source) Start: 2020 take 1 tablet by mouth once daily Multivitamin Active 1 TAB PO Daily February 18, 2021 12:00am mupirocin 0.02 mg/mg topical ointment (2 sources) RNA Synthetase Inhibitor Antibacterial Start: 2022 Mupirocin 2 % 1 application Externally Twice a day for 10 days Feb, Active mycophenolate mofetil 250 mg oral capsule (1 source) Start: 2020 take 2 capsules by mouth twice daily Mycophenolate Mofetil (Cellcept) 250 mg Capsule Active 500 MG PO Twice daily February 18, 2021 12:00am ondansetron 4 mg oral tablet (1 source) Serotonin-3 Receptor Antagonist take 1 tablet by mouth every eight hours as needed for nausea Ondansetron HCl 4 MG 1 tablet Orally every 8 hours as needed for nausea for 30 days Active oxyCODONE hydrochloride 5 mg oral capsule (1 source) Opioid Agonist Start: 2020 take 5-10 mg by mouth every six hours Oxycodone Active 5 - 10 MG PO Q6H 40 8 February 26, 2021 predniSONE 20 mg oral tablet (2 sources) Start: 2023 Prednisone Active 20 MG PO As Directed February 29, 2024 12:00am 1 tab tid w/ food x 3 days, then bid w/ food x 3 days, then qd w/ food x 3 days Start: 02-26-2021 Prednisone Act soo 1 dose pk PO per package directions February 26, 2021 12:00am take 4 tabs for 3 days then take 3 tabs for 3 days then take 2 tabs for 3 days then take 1 tab for 3 days tacrolimus 1 mg oral capsule (18 sources) Calcineurin Inhibitor Immunosuppressant Start: 05-05-2022 End: [...] day. 120 capsule 3 11/04/2021 05/01/2022 Discontinued Start: 02-18-2021 take 3 mg by mouth twice daily Tacrolimus Active 3 MG PO Twice daily February 18, 2021 12:00am take 3 capsules by m outh every [...] twice daily. ursodiol 300 mg oral capsule (5 sources) Bile Acid Start: 02-18-2021 End: 12-04-2021 take 1 capsule by mouth three times daily ursodiol (ACTIGALL) 300 mg capsule Take 1 capsule by mouth three times daily. 90 capsule 0 11/04/2021 12/04/2021 Active Comment on above: Take 1 capsule by mo uth three times daily. Completed/Discontinued Medications Medication Drug Class(es) Dates Sig (Normalized) Sig (Original) doxycycline hyclate 100 mg oral capsule (2 sources) Tetracycline-clas s Drug Start: 03-05-2023 take 1 capsule by [...] pantoprazole 40 mg delayed release oral tablet (17 sources) Proton Pump Inhibitor Start: take 1 tablet by mouth once daily, then take 6 tablets by mouth in the morning pantoprazole DR (PROTONIX) 40 mg tablet Take 1 tablet by mouth DAILY (6 AM). 30 tablet 0 07/13/2021 Active Comment on above: Take 1 tablet by sylvester th DAILY (6 AM). sulfamethoxazole 800 mg / trimethoprim 160 mg oral tablet (16 sources) Dihydrofolate Reductase Inhibitor Antibacterial, Sulfonamide Antimicrobial Start: take 1 tablet by mouth once sulfamethoxazole-tr imethoprim (BACTRIM DS,SEPTRA DS) 800-160 mg per tablet TAKE 1 TABLET BY MOUTH EVERY THURSDAY,THURSDAY,FR IDAY. 13 tablet 11 09/02/2021 Suspended Start: 02-18-2021 take 1 tablet by sylvester th three times weekly Sulfamethoxazole-Trimethoprim Active 1 T AB PO 3 Times a week February 18, 2021 12:00am take 1 tablet by sylvester th every twenty-four hours Bactrim 400-80 MG 1 tablet Orally Once a day Not-Taking Comment on above: TAKE 1 TABLET BY SYLVESTER TH EVERY THURSDAY,THURSDAY,THURSDAY. Problems Active Problems Problem Classification Problem Date Documented Da te Episodic/Chronic Acute and unspecified renal failure (19 sources) Acute injury of kidney; Translations: [Acute kidney failure, unspecified] Onset: 17-2021 Episodic Alcohol-related disorders (9 sources) Alcohol dependence; [...] Spondylosis; intervertebral disc disorders; other back problems (9 sources) Other spondylosis with radiculopathy, cervical region; [...] for Treatmenton 05-28 Consent for Treatment [id number] IFF Normal [facility] Discharge Instructionson Discharge Instructions [id number] Normal [facility] ED Clinical Summaryon 2022 ED Clinical Summary (Inserted Image. Suzanne ble to display) [address] [address] ED Clinical Summary Person Information Name: CHUCKIE VILLALTA/[facility] Age: 37 Years : 1985 Sex: Male Language: Kazakh PCP: LUIS ABDALLA DO Marital Status: Phone: [phone] Visit Id: Visit Reason: Foot pain-swelling; PAIN [...] 06/20/2023 18:04:25 06/20/2023 18:04:25 06/20/2023 18:04:25 ADDRESS: [facility] [address] [id number] PHYS DOC NOTES: MEDICAL INFORMATION: Prescriptions Given: PATIENT EDUCATION INFORMATION: Instructions: Foot Sprain; Elastic Bandage and RICE Therapy; Ankle Sprain, Phase II Rehab; Ankle Sprain, Phase I Rehab; Ankle Sprain Follow up: With: Address: When: LUIS ABDALLA [facility] [id number] [facility] () In 3 days 06/23/2023 Comments: Follow-up with your primary care provider in 3 to 5 days. If symptoms worsen, do not improve, or new symptoms arise please report back to emergency department for further evaluation. DIAGNOSIS: Left ankle sprain; Sprain of left foot Normal [facility] ED Note-Physicianon 06-20-20 ED Note-Physician Basic [...] and Complexity of Problems Differential Diagnosis: [] [facility] Data External documents reviewed: [] My [...] In 3 days 06/23/2023 EST [address] [place] [address]- Business (1) Additional Instructions: Follow-up with your primary care provider in 3 to 5 days. If symptoms worsen, do not improve, or new symptoms arise please report back to emergency department for further evaluation. Patient Education Foot Sprain Elastic Bandage and RICE Therapy Ankle Sprain, Phase II Rehab Ankle Sprain, Phase I Rehab Ankle Sprain Attestation Patient seen and evaluated by the physician nurse practitioner physician assistant. Attending physician was present in the emergency department and supervised care. This visit was performed by both the physician and an APC. I performed all aspects of the MDM as documented. This report was transcribed using voice recognition software. Every effort was made to ensure accuracy, however, inadvertently computerized vacation planner mistakes may be present. Appropriate healthcare PPE was used in evaluating this patient. The patient was placed in a mask. The healthcare provider was wearing mask, gloves, and utilizing proper hand hygiene. All equipment was properly cleansed. Problem List/Past Medical History Ongoing No qualifying data Historical No qualifyi (more content not included)... Normal [facility] Comment on above: Result Comment: Elec [...] on your foot. General instructions ? Take zrja-otm-sduhocz and prescription medicines only as told by your health care provider. ? When you can walk without pain, wear supportive shoes t (more content not included)... Normal [facility] ED Patient Summaryon 023 ED Patient Summary (Inserted Image. Suzanne ble to display) [address] [address] Patient Discharge Instructions Person Information Name: CHUCKIE VILLALTA Age: 37 Years Arrival Date: 06/20/2023 15:53:53 Discharge Diagnosis: Left ankle sprain; Sprain of left foot Primary Care Physician: LUIS ABDALLA DO Provider Information Primary Provider: Wilmer Rosenberg M.D. Advanced Etiology Teacher:None The exam and treatment you received in the Emergency Department were for an urgent problem and are not intended as complete care. It is important that you follow up with a doctor, nurse practitioner, or physician?s nurse practitioner physician assistant for ongoing care. If your symptoms become [...] Instructions: With: Address: When: LUIS ABDALLA [address] [place] [address] [facility] (1) In 3 days 06/23/2023 Comments: Follow-up [...] opioids can be used to help relieve sthtcjyd-nr-olxgst pain and are often prescribed following a [...] Administration (www.fda.gov/[place]ali (more content not included)... Normal [facility] XR Ankle 3+ Views Lefton XR [...] mGy = na DAP = na Normal [facility] XR Foot 3+ Views Lefton 05-28 [...] DAVID Technologist: PATRICIA Technical Comments Radiation Dose: Kar in mGy = na DAP = na Normal [facility] ANES POSTPROC EVALon 023 ANES POSTPROC EVAL HNO ID: [id number] Author: Delmer Webber MD Service: ? Author [...] Quezada MD; Delmer Webber MD; Henrietta Brewster APRN.WEBSPHERE DEVELOPER Responsible Provider: Delmer Webber MD Anesthesia Type: [...] March 19, 2023 TIME: 10:05 AM CSN: [id number] Normal [facility] ANES PRE-OPon 03-19-2023 ANES PRE-OP HNO ID: [id number] Author: Delmer Webber MD Service: ? Author Type: Anesthesiologist Type: Anesthesia Preprocedure Evaluation Filed: 03/19/2023 8:02 AM Note Text: ANESTHESIOLOGY DAY OF SURGERY NOTE : 1985 Procedure Information Date/Time: 03/19/23 0800 Scheduled providers: Betina Quezada MD; Delmer Webber MD; Henrietta Brewster APRN.WEBSPHERE DEVELOPER Procedure: ERCP Location: Gastroenterology Estimated body mass [...] and consent discussed: yes. Patient / Responsible Alliance Party agrees to proceed: yes Patient / [...] March 19, 2023 TIME: 8:02 AM CSN: [id number] Normal [facility] Gas and Carbon monoxide pane l (BldV)on 03-19-2023 BASE DEFICIT, VENOUS -3 mmol/L Low -2-0 [facility] Comment on above: Order Comment: Noe madrid Type: BLOOD SPECIMEN Ordering Facility: [facility] Address: [address] [place] [address] Performed By: #### 5 763-8, COPPER #### [facility] CLIA [id number] [address] [place] [address] [place] Body temperature 98.24 [degF] Normal [facility] Comment on above: Order Comment: Noe madrid Type: BLOOD SPECIMEN Ordering Facility: [facility] Address: [address] [address] Performed By: #### 5 763-8, COPPER #### [facility] CLIA [id number] [address] [place] [address] [place] Calcium.ionized (Bld) [Mass/Vol] 1.24 mmol/L Normal 1.08-1.30 [facility] Comment on above: Order Comment: Speci men Type: BLOOD SPECIMEN Ordering Facility: [facility] Address: [address] [place] [address] Performed By: #### 5 763-8, COPPER #### [facility] CLIA [id number] [address] [place] [address] [place] Calcium.ionized adjusted to pH 7.4 (BldA) [Moles/Vol] 1.23 mmol/L Normal 1.08-1.30 [facility] Comment on above: Order Comment: Speci men Type: BLOOD SPECIMEN Ordering Facility: [facility] Address: [address] [place] [address] Performed By: #### 5 763-8, COPPER #### [facility] CLIA [id number] [address] [place] [address] [place] Carboxyhemoglobin (BldV) [Mass fraction] 1.2 % Normal 0.0-2.0 [facility] Comment on above: Order Comment: Speci men Type: BLOOD SPECIMEN Ordering Facility: [facility] Address: [address] [place] [address] Result Comment: Carb oxyhemoglobin Reference Range for Smokers: 2.0-8.0% Performed By: #### 5 763-8, COPPER #### [facility] CLIA [id number] [address] [place] [address] [place] CO2 (BldV) [Partial pressure] 36 mm[Hg] Low 42-55 [facility] Comment on above: Order Comment: Speci men Type: BLOOD SPECIMEN Ordering Facility: [facility] Address: [address] [place] [address] Performed By: #### 5 763-8, COPPER #### [facility] CLIA [id number] [address] [place] [address] [place] CO2 adjusted to patient's actual temperature (BldV) [Partial pressure] 35 mmHg Low 42-55 [facility] Comment on above: Order Comment: Speci men Type: BLOOD SPECIMEN Ordering Facility: [facility] Address: [address] [place], [place] [address] Performed By: #### 5 763-8, COPPER #### [facility] CLIA [id number] [address] [place] [address] [place] Glucose [Mass/Vol] 124 mg/dL High 60-105 [facility] Comment on above: Order Comment: Speci men Type: BLOOD SPECIMEN Ordering Facility: [facility] Address: [address] [place], [place] [address] Performed By: #### 5 763-8, COPPER #### [facility] CLIA [id number] [address] [place] [address] [place] HCO3 (Bld) [Moles/Vol] 21 mmol/L Low 24-28 [facility] Comment on above: Order Comment: Speci men Type: BLOOD SPECIMEN Ordering Facility: [facility] Address: [address] [place], [place] [address] Performed By: #### 5 763-8, COPPER #### [facility] CLIA [id number] [address] [place] [address] [place] Hematocrit (Bld) [Volume fraction] 41.1 % Normal 39.0-51.0 [facility] Comment on above: Order Comment: Speci men Type: BLOOD SPECIMEN Ordering Facility: [facility] Address: [address] [place] [address] Performed By: #### 5 763-8, COPPER #### [facility] CLIA [id number] [address] [place] [address] [place] Hemoglobin (Bld) [Mass/Vol] 13.4 g/dL Normal 13.0-17.0 [facility] Comment on above: Order Comment: Speci men Type: BLOOD SPECIMEN Ordering Facility: [facility] Address: [address] Performed By: #### 5 763-8, COPPER #### [facility] CLIA [id number] [address] [place] [address] [place] Lactate [Moles/Vol] 1.9 mmol/L Normal 0.5-2.2 [facility] Comment on above: Order Comment: Speci men Type: BLOOD SPECIMEN Ordering Facility: [facility] Address: [address] Performed By: #### 5 763-8, COPPER #### [facility] CLIA [id number] [address] [place] [address] [place] Methemoglobin (Bld) [Mass fraction] 0.8 % Normal 0.0-1.5 [facility] Comment on above: Order Comment: Speci men Type: BLOOD SPECIMEN Ordering Facility: [facility] Address: [address] Performed By: #### 5 763-8, COPPER #### [facility] CLIA [id number] [address] [place] [address] [place] O2 THERAPY RA=Room Air Normal [facility] Comment on above: Order Comment: Speci men Type: BLOOD SPECIMEN Ordering Facility: [facility] Address: [address] [place], [place] Performed By: #### 5 763-8, COPPER #### [facility] CLIA [id number] [address] [place] [address] [place] Oxygen (BldV) [Partial pressure] 69 mm[Hg] High 35-45 [facility] Comment on above: Order Comment: Speci men Type: BLOOD SPECIMEN Ordering Facility: [facility] Address: [address] Performed By: #### 5 763-8, COPPER #### [facility] CLIA [id number] [address] [place] [address] [place] Oxygen adjusted to patient's actual temperature (BldV) [Partial pressure] 68 mmHg High 35-45 [facility] Comment on above: Order Comment: Speci men Type: BLOOD SPECIMEN Ordering Facility: [facility] Address: [address] [place] [address] Performed By: #### 5 763-8, COPPER #### [facility] CLIA [id number] [address] [place] [address] [place] Oxygen saturation in Venous blood 94 % High 60-85 [facility] Comment on above: Order Comment: Speci men Type: BLOOD SPECIMEN Ordering Facility: [facility] Address: [address] [place], [place] [address] Performed By: #### 5 763-8, COPPER #### [facility] CLIA [id number] [address] [place] [address] [place] Oxyhemoglobin (BldV) [Mass fraction] 92 % High 60-85 [facility] Comment on above: Order Comment: Speci men Type: BLOOD SPECIMEN Ordering Facility: [facility] Address: [address] [place], [place] [address] Performed By: #### 5 763-8, COPPER #### [facility] CLIA [id number] [address] [place] [address] [place] pH (BldV) 7.39 [pH] Normal 7.32-7.42 [facility] Comment on above: Order Comment: Speci men Type: BLOOD SPECIMEN Ordering Facility: [facility] Address: [address] [place], [place] [address] Performed By: #### 5 763-8, COPPER #### [facility] CLIA [id number] [address] [place] [address] [place] pH adjusted to patient's actual temperature (BldV) 7.39 Normal 7.32-7.42 [facility] Comment on above: Order Comment: Speci men Type: BLOOD SPECIMEN Ordering Facility: [facility] Address: [address] [place] [address] Performed By: #### 5 763-8, COPPER #### [facility] CLIA [id number] [address] [place] [address] OF [facility] Potassium [Moles/Vol] 4.1 mmol/L Normal 3.5-5.0 [facility] Comment on above: Order Comment: Speci men Type: BLOOD SPECIMEN Ordering Facility: [facility] Address: [address] [place] [address] Performed By: #### 5 763-8, COPPER #### [facility] CLIA [id number] [address] [place] [address] OF [facility] Sodium [Moles/Vol] 140 mmol/L Normal 136-144 [facility] Comment on above: Order Comment: Speci men Type: BLOOD SPECIMEN Ordering Facility: [facility] Address: [address] [place] [address] Performed By: #### 5 763-8, COPPER #### [facility] CLIA [id number] [address] [place] [address] [place] NURSING PROGon 03-19-2023 NURSING PROG HNO ID: [id number] Author: Blanca Kulkarni, RN Service: Nursing Author Type: Registered Nurse [...] None Electronically Signed By: Blanca Kulkarni RN [facility] NURSING PROG HNO ID: [id number] Author: Indu Meza RN Service: Nursing Author [...] By: Indu Meza RN 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 Type of instruction given: Verbal by telephone contact. Yamilet Yan RN Allergies As of Date: 03/12/2023 Noted Allergy Reaction PENICILLINS 16 - Unknown Comments: Skin test positive 09/01/18 MIDAZOLAM 02/18/2021 14 - Other: See Comments SEASONAL ALLERGIES 06/29/2018 16 - Unknown Date Reviewed: 12/11/2022 Reviewed by: Aicha Bragg RN - Fully Assessed Reason for Visit: Appointment Confirmation [[phone]] Prescriptions as of 03/12/2023 - tacrolimus IR [...] Encounter Status:Closed by YAMILET YAN on 03/12/23 [facility] ANES POSTPROC EVALon 023 ANES POSTPROC EVAL HNO ID: [id number] Author: Angie Lloyd MD Service: ? Author Type: Anesthesiologist Type: Anesthesia Postprocedure Evaluation Filed: 12/11/2022 12:58 PM Note Text: POST ANESTHESIA EVALUATION NOTE : 1985 Procedure Summary Date: 12/11/22 Room / Location: Gastroenterology Anesthesia Start: 1000 Anesthesia Stop: 1101 Procedure: ERCP Diagnosis: Biliary stricture (Stent change) [...] December 11, 2022 TIME: 12:57 PM CSN: [id number] Normal [facility] [facility]on 12-11-2022 ANES PRE-OP HNO ID: [id number] Author: Angie Lloyd MD Service: ? Author [...] and consent discussed: yes. Patient / Responsible Alliance Party agrees to proceed: yes Patient / [...] December 11, 2022 TIME: 9:21 AM CSN: [id number] [facility] NURSING PROGon 12-11-2022 NURSING PROG HNO ID: [id number] Author: Aicha Bragg RN Service: ? Author [...] None Electronically Signed By: Aicha Bragg RN [facility] NURSING PROG HNO ID: [id number] Author: Tatiana Ray RN Service: Nursing Author [...] By: Tatiana Ray RN In Department: GASTROENTEROLOGY Normal [facility] HERNANDEZLuh 11-04-2022 CNPN Telephone (LU4C) CHUCKIE VILLALTA ([id number]) 1985 M TRN Date Time Provider Department 11/04/22 MIMI CLEMENS LU4C During your visit today, we recorded the following information about you: SHAQ Price 11/04/2022 11:06 AM Signed SW attempted to contact the patient to discuss the [facility] clinic. DEONDRE left a VM and requested a return phone. SHAQ Price November 04, 2022 11:06 AM Allergies As of Date: 11/04/2022 Noted Allergy Reaction PENICILLINS 16 - Unknown Comments: Skin test positive 09/01/18 MIDAZOLAM 02/18/2021 14 - Other: See Comments SEASONAL ALLERGIES 06/29/2018 16 - Unknown Date Reviewed: 09/04/2022 Reviewed by: Tova Wilson RN - Fully Assessed Reason for Visit: Care Coordination [0246] Cmt: [facility] clinic Prescriptions as of 11/04/2022 [...] Encounter Status:Closed by MIMI CLEMENS on 11/04/22 [facility] HERNANDEZLuh 09-22-2022 CNPN Telephone (GASTA5) CHUCKIE VILLALTA ([id number]) 1985 TRN Date Time Provider Department 09/22/22 RASHIDA LIRIANO GASTA5 During your visit today, we recorded the following information about you: Rashida Liriano RN 09/22/2022 11:33 AM Signed Called and left patient regarding referral to [facility] clinic. Call back number provided. Z[employer] message with the details also sent. Rashida Liriano RN September 22, 2022 11:32 AM Allergies As of Date: 09/22/2022 Noted Allergy Reaction PENICILLINS 16 - Unknown Comments: Skin test positive 09/01/18 MIDAZOLAM 02/18/2021 14 - Other: See Comments SEASONAL ALLERGIES 06/29/2018 16 - Unknown Date Reviewed: 09/04/2022 Reviewed by: Tova Wilson RN - Fully Assessed Reason for Visit: Care Coordination [7275] Cmt: [facility] clinic Prescriptions as of 09/22/2022 [...] Encounter Status:Closed by RASHIDA LIRIANO on 09/22/22 [facility] CASE MANAGEMon 09-05-2022 CASE MANAGEM HNO ID: [id number] Author: JEY Felton Service: ? Author Type: Fiber Heel Piece Shaper Type: Care Mgt Progress Note Filed: 09/05/2022 [...] this admission, please contact Case Management. *DEONDRE provided Pt with a packet of community resources for alcohol abuse per medical team request, Pt accepted these resources at this time. DEONDRE NOVA also provided Pt with the aa.Mama website for him to find local and virtual AA meetings in his area. DEONDRE NOVA encouraged Pt to reach back out to [facility] with any questions and/or concerns regarding community resources for alcohol abuse prior to his D/C from the hospital if needed* For weekend CM needs, please contact on-call CM at: G AppSheet - 51937 H AppSheet - 27229 J AppSheet - 08733 M AppSheet - 17891 SIGNATURE: JEY Jim PATIENT NAME: Chuckie Villalta DATE: September 05, 2022 TIME: 9:30 AM PAGER/CONTACT #: Normal [facility] CBC panel Auto (Bld)on 09-05 Erythrocyte distribution width (RBC) [Ratio] 17.1 % High 11.5-15.0 [facility] Comment on above: Order Comment: Noe madrid Type: BLOOD SPECIMEN Ordering Facility: [facility] Address: [address] [place], [place] [address] Performed By: #### 5 763-8, COPPER #### [facility] CLIA [id number] [address] [place] [address] [place] [address] [place] Hematocrit (Bld) [Volume fraction] 37.4 % Low 39.0-51.0 [facility] Comment on above: Order Comment: Noe madrid Type: BLOOD SPECIMEN Ordering Facility: [facility] Address: [address] Performed By: #### 5 763-8, COPPER #### [facility] [place] [id number] [address] [place] [address] [place] [facility] Hemoglobin (Bld) [Mass/Vol] 12.8 g/dL Low 13.0-17.0 [facility] Comment on above: Order Comment: Speci men Type: BLOOD SPECIMEN Ordering Facility: [facility] Address: [address] Performed By: #### 5 763-8, COPPER #### [facility] [place] [id number] [address] [place] [address] [place] MCH (RBC) [Entitic mass] 30.3 pg Normal 26.0-34.0 [facility] Comment on above: Order Comment: Speci men Type: BLOOD SPECIMEN Ordering Facility: [facility] Address: [address] Performed By: #### 5 763-8, COPPER #### [facility] [place] [id number] [address] [place] [address] [place] MCHC (RBC) [Mass/Vol] 34.2 g/dL Normal 30.5-36.0 [facility] Comment on above: Order Comment: Speci men Type: BLOOD SPECIMEN Ordering Facility: [facility] Address: [address] [place] [place] [id number] Performed By: #### 5 763-8, COPPER #### [facility] [place] [id number] [address] [place] [address] [place] MCV (RBC) [Entitic vol] 88.4 fL Normal 80.0-100.0 [facility] Comment on above: Order Comment: Speci men Type: BLOOD SPECIMEN Ordering Facility: [facility] Address: [address] Performed By: #### 5 763-8, COPPER #### [facility] CLIA [id number] [address] [place] [address] [place] Nucleated RBC (Bld) [#/Vol] 10*3/uL Normal <0.01 [facility] Comment on above: Order Comment: Speci men Type: BLOOD SPECIMEN Ordering Facility: [facility] Address: [address] [place] [address] Performed By: #### 5 763-8, COPPER #### [facility] CLIA [id number] [address] [place] [address] [place] Platelet mean volume (Bld) [Entitic vol] 12.6 fL Normal 9.0-12.7 [facility] Comment on above: Order Comment: Speci men Type: BLOOD SPECIMEN Ordering Facility: [facility] Address: [address] [place] [address] Performed By: #### 5 763-8, COPPER #### [facility] CLIA [id number] [address] [place] [address] [place] Platelets (Bld) [#/Vol] 61 10*3/uL Low 150-400 [facility] Comment on above: Order Comment: Speci men Type: BLOOD SPECIMEN Ordering Facility: [facility] Address: [address] [place] [address] Result Comment: Resu lts checked and verified.No clot detected. Performed By: #### 5 763-8, COPPER #### [facility] CLIA [id number] [address] [place] [address] [place] RBC (Bld) [#/Vol] 4.23 10*6/uL Normal 4.20-6.00 [facility] Comment on above: Order Comment: Speci men Type: BLOOD SPECIMEN Ordering Facility: [facility] Address: [address] [place] [address] Performed By: #### 5 763-8, COPPER #### [facility] CLIA [id number] [address] [place] [address] [place] WBC (Bld) [#/Vol] 4.92 10*3/uL Normal 3.70-11.00 [facility] Comment on above: Order Comment: Speci men Type: BLOOD SPECIMEN Ordering Facility: [facility] Address: [address] [place] [address] Performed By: #### 5 763-8, COPPER #### [facility] CLIA [id number] [address] [place] CNDSon 09-05-2022 CNDS HNO ID: [id number] Author: Minna Tilley MD Service: General Internal Medicine Author Type: Physician Type: Discharge Summary Filed: 09/05/2022 1:44 PM Note Text: DISCHARGE SUMMARY PATIENT NAME: Chuckie Villalta ADMISSION DATE: 08/31/2022 DISCHARGE DATE: 09/05/2022 ATTENDING PHYSICIAN: Minna Tilley MD Code Status: Full Code PCP: Luis [...] DOPPLER COM (more content not included)... Normal [facility] Comprehensive metabolic 2000 panelon 09-05-2022 Albumin [Mass/Vol] 3.8 g/dL Low 3.9-4.9 [facility] Comment on above: Order Comment: Noe madrid Type: BLOOD SPECIMENOrdering Facility: [facility] Address: [address] [place] [address] Performed By: #### 2 4323-8 ####[facility] [id number] [place] [address] [place] ALP [Catalytic activity/Vol] 94 U/L Normal 38-113 [facility] Comment on above: Order Comment: Noe madrid Type: BLOOD SPECIMENOrdering Facility: [facility] Address: [address] [place] [address] Performed By: #### 2 4323-8 ####[facility] [id number] [place] [address] [place] ALT [Catalytic activity/Vol] 101 U/L High 10-54 [facility] Comment on above: Order Comment: Noe madrid Type: BLOOD SPECIMENOrdering Facility: [facility] Address: [address] [place] [address] Performed By: #### 2 4323-8 ####[facility] [id number] [place] [address] [place] Anion gap [Moles/Vol] 11 mmol/L Normal 9-18 [facility] Comment on above: Order Comment: Speci men Type: BLOOD SPECIMENOrdering Facility: [facility] Address: [address] Performed By: #### 2 4323-8 ####[facility] [id number] [place] [address] [place] AST [Catalytic activity/Vol] 75 U/L High 14-40 [facility] Comment on above: Order Comment: Speci men Type: BLOOD SPECIMENOrdering Facility: [facility] Address: [address] Performed By: #### 2 4323-8 ####[facility] [id number] [place] [address] [place] Bilirubin [Mass/Vol] 1.8 mg/dL High 0.2-1.3 [facility] Comment on above: Order Comment: Speci men Type: BLOOD SPECIMENOrdering Facility: [facility] Address: [address] Performed By: #### 2 4323-8 ####[facility] [id number] [place] [address] [place] Calcium [Mass/Vol] 9.6 mg/dL Normal 8.5-10.2 [facility] Comment on above: Order Comment: Speci men Type: BLOOD SPECIMENOrdering Facility: [facility] Address: [address] Performed By: #### 2 4323-8 ####[facility] [id number] [place] [address] [place] Chloride [Moles/Vol] 102 mmol/L Normal 97-105 [facility] Comment on above: Order Comment: Speci men Type: BLOOD SPECIMENOrdering Facility: [facility] Address: [address] [place] [phone] Performed By: #### 2 4323-8 ####[facility] [id number] [place] [address] [place] CO2 [Moles/Vol] 23 mmol/L Normal 22-30 [facility] Comment on above: Order Comment: Speci men Type: BLOOD SPECIMENOrdering Facility: [facility] Address: [address] [place] [place] [address] Performed By: #### 2 4323-8 ####[facility] [id number] [place] [address] [place] Creatinine [Mass/Vol] 1.16 mg/dL Normal 0.73-1.22 [facility] Comment on above: Order Comment: Speci men Type: BLOOD SPECIMENOrdering Facility: [facility] Address: [address] [place] [address] Performed By: #### 2 4323-8 ####[facility]IA [id number] [place] [address] [place] ESTIMATED GLOMERULAR FILTRATION RATE 84 mL/min/1.73m??? Normal >=60 [facility] Comment on above: Order Comment: Speci men Type: BLOOD SPECIMENOrdering Facility: [facility] Address: [address] [place] [address] Result Comment: Brenda mated Glomerular Filtration Rate [...] actual GFR. Performed By: #### 2 4323-8 ####[facility] [id number] [place] [address] [place] Glucose [Mass/Vol] 170 mg/dL High 74-99 [facility] Comment on above: Order Comment: Speci men Type: BLOOD SPECIMENOrdering Facility: [facility] Address: [address] [place] [address] Result Comment: The [place] Diabetes Association (ADA) provides guidance for cutoff [...] Standards of Medical Care in Diabetes 2016, [place] [employer]. Diabetes Care. 2016.39(Suppl 1). Performed By: #### 2 4323-8 ####[facility] [id number] [place] [address] [place] Potassium [Moles/Vol] 3.8 mmol/L Normal 3.7-5.1 [facility] Comment on above: Order Comment: Speci men Type: BLOOD SPECIMENOrdering Facility: [facility] Address: [address] [place] [address] Performed By: #### 2 4323-8 ####[facility] [id number] [place] [address] [place] Protein [Mass/Vol] 6.8 g/dL Normal 6.3-8.0 [facility] Comment on above: Order Comment: Speci men Type: BLOOD SPECIMENOrdering Facility: [facility] Address: [address] [place] [address] Performed By: #### 2 4323-8 ####[facility] [id number] [place] [address] [place] Sodium [Moles/Vol] 136 mmol/L Normal 136-144 [facility] Comment on above: Order Comment: Speci men Type: BLOOD SPECIMENOrdering Facility: [facility] Address: [address] [place] [address] Performed By: #### 2 4323-8 ####[facility] [id number] [address] Urea nitrogen [Mass/Vol] 11 mg/dL Normal 9-24 [facility] Comment on above: Order Comment: Speci men Type: BLOOD SPECIMENOrdering Facility: [facility] Address: [address] [place] [address] Performed By: #### 2 4323-8 ####[facility] [id number] [address] OF [facility] NUTRITIONon 09-05-2022 NUTRITION HNO ID: [id number] Author: Gifty Arnold RD Service: Nutrition Therapy Author Type: Registered Dietitian Type: Nutrition Filed: 09/05/2022 1:39 PM Note Text: NUTRITION THERAPY INITIAL ASSESSMENT SERVICE DATE: 09/05/2022 SERVICE TIME: 10:50 am Nutrition Assessment: Recommended Malnutrition Diagnosis: No Malnutrition Identified Nutrition Diagnosis: Problem: Suboptimal protein/energy intake Related to: Unknown etiology As evidenced by: Medical condition, Intake records Estimated kilocalorie needs: 2435-3989 Calorie Calculation Method: 20-25 kcals/kg Estimated protein [...] as necessary the HPI obtained by Minna Tilley MD on 09/04/2022 and all reflect current [...] per patient. 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 Denies [...] September 05, 2022 TIME: 1:35 PM Normal [facility] PT panel Coag (PPP)on 2022 INR Coag (PPP) [Relative time] 1.0 {INR} Normal 0.9-1.3 [facility] Comment on above: Order Comment: Noe madrid Type: BLOOD SPECIMEN Ordering Facility: [facility] Address: [place] [address] Result Comment: Aster min K Antagonist (VKA) Therapeutic Range: INR 2 to 3 (Target INR of 2.5) Note: For patients treated with VKA drugs, such as warfarin, the [place] [employer] 2012 Guideline recommends [...] 2.5 to 3.5 (target INR of 3). Nonitt GH, et al. Chest 2012, 141:7S-47S Goldie RA, et al. [facility] 2017, 70: 252-289 Performed By: #### V ITB6 #### [facility] [facility] CLIA [id number] [address] [place] [address] PT Coag (PPP) [Time] 10.8 s Normal 9.7-13.0 [facility] Comment on above: Order Comment: Noe madrid Type: BLOOD SPECIMEN Ordering Facility: [facility] Address: [place] [address] Performed By: #### V ITB6 #### [facility] [employer] [facility] CLIA [id number] [address] [place] [address] Tacrolimus Bld-mCncon 2022 Tacrolimus (Bld) [Mass/Vol] 8.4 ng/mL Normal 5.0-20.0 [facility] Comment on above: Order Comment: Noe madrid Type: BLOOD SPECIMEN Ordering Facility: [facility] Address: [address] [place] [address] Result Comment: Nannette vidualized target levels for [...] situation. Test performed by chemiluminescent immunoassay using [employer]. Performed By: #### 2 4323-8 #### [facility] CLIA [id number] [address] [facility] [place] [id number] [place] ANES POSTPROC EVALon 023 ANES POSTPROC EVAL HNO ID: [id number] Author: Lucas Moseley MD Service: ? Author Type: Anesthesiologist Type: Anesthesia Postprocedure Evaluation Filed: 09/04/2022 11:10 AM Note Text: POST ANESTHESIA EVALUATION NOTE : 1985 Procedure Summary Date: 09/04/22 Room / Location: Gastroenterology Anesthesia Start: 0851 Anesthesia Stop: 1017 Procedure: EGD DIAGNOSTIC Diagnosis: (Stent removal) Scheduled Providers: Betina Quezada MD; Lucas Moseley MD; Suzie Knott APRN.WEBSPHERE DEVELOPER Responsible Provider: Lucas Moseley MD Anesthesia Type: [...] September 04, 2022 TIME: 11:10 AM CSN: [id number] Normal [facility] ANES PRE-OPon 09-04-2022 ANES PRE-OP HNO ID: [id number] Author: Lucas Moseley MD Service: ? Author Type: Anesthesiologist Type: Anesthesia Preprocedure Evaluation Filed: 09/04/2022 8:14 AM Note Text: ANESTHESIOLOGY DAY OF SURGERY NOTE : 1985 Procedure Information Date/Time: 09/04/22 1300 Scheduled providers: Betina Quezada MD; Lucas Moseley MD; Suzie Knott APRN.WEBSPHERE DEVELOPER Procedure: EGD DIAGNOSTIC Location: Gastroenterology Estimated body [...] and consent discussed: yes. Patient / Responsible Alliance Party agrees to proceed: yes Patient / Surrogate agrees to blood products: Yes Significant changes in the patient condition since the History and Physical, not otherwise documented in primary service progress note: no. Potential Anesthesia issues that may suggest increased risk of complications or contraindication to planned procedure: none. Vitals Value Taken Time BP 149/104 09/04/22756 Pulse 79 09/04/22756 Resp 18 09/04/22756 Temp 36.3 ?C (97.3 ?F) 09/04/22756 SpO2 98 % 09/04/22756 Facility-Administered Medications as of 09/04/2022 Medication Dose [...] administration yosef (more content not included)... Normal [facility] CBC panel Auto (Bld)on 09-04 Erythrocyte distribution width (RBC) [Ratio] 17.1 % High 11.5-15.0 [facility] Comment on above: Order Comment: Speci men Type: BLOOD SPECIMEN Ordering Facility: [facility] Address: [address] [place] [address] Performed By: #### 5 0189-0, 65705-7, 2132-9 #### [facility] CLIA [id number] [address] [facility] [place] [address] [place] Hematocrit (Bld) [Volume fraction] 36.1 % Low 39.0-51.0 [facility] Comment on above: Order Comment: Speci men Type: BLOOD SPECIMEN Ordering Facility: [facility] Address: [address] [place] [address] Performed By: #### 5 0189-0, , 2132-03 #### [facility] CLIA [id number] [address] [place] [address] [place] Hemoglobin (Bld) [Mass/Vol] 12.5 g/dL Low 13.0-17.0 [facility] Comment on above: Order Comment: Speci men Type: BLOOD SPECIMEN Ordering Facility: [facility] Address: [address] [place], [place] [address] Performed By: #### 5 0189-0, , 2132-03 #### [facility] CLIA [id number] [address] [place] [address] [place] MCH (RBC) [Entitic mass] 30.0 pg Normal 26.0-34.0 [facility] Comment on above: Order Comment: Speci men Type: BLOOD SPECIMEN Ordering Facility: [facility] Address: [address] [place], [place] [address] Performed By: #### 5 0189-0, , 2132-03 #### [facility] CLIA [id number] [address] [place] [address] [place] MCHC (RBC) [Mass/Vol] 34.6 g/dL Normal 30.5-36.0 [facility] Comment on above: Order Comment: Speci men Type: BLOOD SPECIMEN Ordering Facility: [facility] Address: [address] [place] [address] Performed By: #### 5 0189-0, , 2132-03 #### [facility] CLIA [id number] [address] [place] [address] [place] MCV (RBC) [Entitic vol] 86.8 fL Normal 80.0-100.0 [facility] Comment on above: Order Comment: Speci men Type: BLOOD SPECIMEN Ordering Facility: [facility] Address: [address] [place] [id number] Performed By: #### 5 0189-0, , 2132-03 #### [facility] CLIA [id number] [address] [place] [address] [place] Nucleated RBC (Bld) [#/Vol] 10*3/uL Normal <0.01 [facility] Comment on above: Order Comment: Speci men Type: BLOOD SPECIMEN Ordering Facility: [facility] Address: [address] Performed By: #### 5 0189-0, , 2132-03 #### [facility] CLIA [id number] [address] [place] [address] [place] Platelet mean volume (Bld) [Entitic vol] 11.8 fL Normal 9.0-12.7 [facility] Comment on above: Order Comment: Speci men Type: BLOOD SPECIMEN Ordering Facility: [facility] Address: [address] Performed By: #### 5 0189-0, , 2132-03 #### [facility] CLIA [id number] [address] [place] [address] [place] Platelets (Bld) [#/Vol] 47 10*3/uL Low 150-400 [facility] Comment on above: Order Comment: Speci men Type: BLOOD SPECIMEN Ordering Facility: [facility] Address: [address] [place] [id number] Result Comment: Resu lts checked and verified.No clot detected. Performed By: #### 5 0189-0, , 2132-03 #### [facility] CLIA [id number] [address] [place] [id number] [place] RBC (Bld) [#/Vol] 4.16 10*6/uL Low 4.20-6.00 [facility] Comment on above: Order Comment: Speci men Type: BLOOD SPECIMEN Ordering Facility: [facility] Address: [address] [place] [address] Performed By: #### 5 0189-0, 42613-9, 9 #### [facility] CLIA [id number] [address] [place] [address] OF [facility] WBC (Bld) [#/Vol] 3.04 10*3/uL Low 3.70-11.00 [facility] Comment on above: Order Comment: Speci men Type: BLOOD SPECIMEN Ordering Facility: [facility] Address: [address] [place] [address] Performed By: #### 5 0189-0, 77977-7, 2132-03 #### [facility] CLIA [id number] [address] [place] [address] OF [facility] CNPNon 09-04-2022 CNPN Telephone (GASTPR) CHUCKIE VILLALTA ([id number]) 1985 M [facility] Date Time Provider Department 09/04/22 BETINA QUEZADA GASTPR During your visit today, we recorded the [...] 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] Order(s):ERCP [GI18] Order #: [id number] FUTURE Prescriptions as of 09/04/2022 - tacrolimus [...] Status:Closed by BETINA QUEZADA on 09/04/22 Normal [facility] COPPER BLOODon 09-04-2022 Copper [Mass/Vol] 86 ug/dL Normal 70-140 [facility] Comment on above: Order Comment: Speci men Type: BLOOD SPECIMEN Ordering Facility: [facility] Address: [address] Result Comment: This test was developed and its performance characteristics determined by [facility]'s Molly White [facility] Pathology [facility] Laboratory [facility] [place] ([facility]). It has not been cleared or approved by the FDA. [facility] is regulated under CLIA as qualified to perform high-complexity testing. This test is used for clinical purposes. It should not be regarded as investigational or for research. Performed By: #### 5 763-8, COPPER #### [facility] CLIA [id number] [facility] [place] [address] [place] Comprehensive metabolic 2000 panelon 09-04-2022 Albumin [Mass/Vol] 3.7 g/dL Low 3.9-4.9 [facility] Comment on above: Order Comment: Speci men Type: BLOOD SPECIMEN Ordering Facility: [facility] Address: [address] Performed By: #### 2 4323-8 #### [facility] CLIA [id number] [address] [place] [address] [place] ALP [Catalytic activity/Vol] 104 U/L Normal 38-113 [facility] Comment on above: Order Comment: Speci men Type: BLOOD SPECIMEN Ordering Facility: [facility] Address: [address] Performed By: #### 2 4323-8 #### [facility] CLIA [id number] [address] [place] [address] [place] ALT [Catalytic activity/Vol] 101 U/L High 10-54 [facility] Comment on above: Order Comment: Speci men Type: BLOOD SPECIMEN Ordering Facility: [facility] Address: [address] Performed By: #### 2 4323-8 #### [facility] CLIA [id number] [address] [place] [address] [place] Anion gap [Moles/Vol] 10 mmol/L Normal 9-18 [facility] Comment on above: Order Comment: Speci men Type: BLOOD SPECIMEN Ordering Facility: [facility] Address: [address] [place] [address] Performed By: #### 2 4323-8 #### [facility] CLIA [id number] [address] [place] [address] [place] AST [Catalytic activity/Vol] 87 U/L High 14-40 [facility] Comment on above: Order Comment: Speci men Type: BLOOD SPECIMEN Ordering Facility: [facility] Address: [address] [place] [address] Performed By: #### 2 4323-8 #### [facility] CLIA [id number] [address] [place] [address] [place] Bilirubin [Mass/Vol] 3.1 mg/dL High 0.2-1.3 [facility] Comment on above: Order Comment: Speci men Type: BLOOD SPECIMEN Ordering Facility: [facility] Address: [address] [place], [place] [address] Performed By: #### 2 4323-8 #### [facility] CLIA [id number] [address] [place] [address] [place] Calcium [Mass/Vol] 9.3 mg/dL Normal 8.5-10.2 [facility] Comment on above: Order Comment: Speci men Type: BLOOD SPECIMEN Ordering Facility: [facility] Address: [address] [place], [place] [address] Performed By: #### 2 4323-8 #### [facility] CLIA [id number] [address] [place] [address] [place] Chloride [Moles/Vol] 101 mmol/L Normal 97-105 [facility] Comment on above: Order Comment: Speci men Type: BLOOD SPECIMEN Ordering Facility: [facility] Address: [address] [address] Performed By: #### 2 4323-8 #### [facility] CLIA [id number] [address] [place] [address] [place] CO2 [Moles/Vol] 25 mmol/L Normal 22-30 [facility] Comment on above: Order Comment: Speci men Type: BLOOD SPECIMEN Ordering Facility: [facility] Address: [address] [address] Performed By: #### 2 4323-8 #### [facility] CLIA [id number] [facility] [place] [address] [place] Creatinine [Mass/Vol] 1.09 mg/dL Normal 0.73-1.22 [facility] Comment on above: Order Comment: Speci men Type: BLOOD SPECIMEN Ordering Facility: [facility] Address: [address] [place] [address] Performed By: #### 2 4323-8 #### [facility] CLIA [id number] [address] [place] [address] [place] ESTIMATED GLOMERULAR FILTRATION RATE 90 mL/min/1.73m??? Normal >=60 [facility] Comment on above: Order Comment: Speci men Type: BLOOD SPECIMEN Ordering Facility: [facility] Address: [address] [place] [address] Result Comment: Brenda mated Glomerular Filtration Rate [...] GFR. Performed By: #### 2 4323-8 #### [facility] CLIA [id number] [address] [place] [address] [place] Glucose [Mass/Vol] 123 mg/dL High 74-99 [facility] Comment on above: Order Comment: Speci mercy Type: BLOOD SPECIMEN Ordering Facility: [facility] Address: [address] [place] [address] Result Comment: The [place] Diabetes Association (ADA) provides guidance for cutoff [...] Standards of Medical Care in Diabetes 2016, [place] [employer]. Diabetes Care. 2016.39(Suppl 1). Performed By: #### 2 4323-8 #### [facility] CLIA [id number] [address] [place] [address] [place] Potassium [Moles/Vol] 4.1 mmol/L Normal 3.7-5.1 [facility] Comment on above: Order Comment: Noe madrid Type: BLOOD SPECIMEN Ordering Facility: [facility] Address: [address] [place] [address] Performed By: #### 2 4323-8 #### [facility] CLIA [id number] [address] [place] [address] [place] Protein [Mass/Vol] 6.7 g/dL Normal 6.3-8.0 [facility] Comment on above: Order Comment: Noe madrid Type: BLOOD SPECIMEN Ordering Facility: [facility] Address: [address] [address] Performed By: #### 2 4323-8 #### [facility] CLIA [id number] [address] [place] [address] [place] Sodium [Moles/Vol] 136 mmol/L Normal 136-144 [facility] Comment on above: Order Comment: Noe madrid Type: BLOOD SPECIMEN Ordering Facility: [facility] Address: [address] [place] [address] Performed By: #### 2 4323-8 #### [facility] CLIA [id number] [address] [place] [address] [place] Urea nitrogen [Mass/Vol] 7 mg/dL Low 9-24 [facility] Comment on above: Order Comment: Noe madrid Type: BLOOD SPECIMEN Ordering Facility: [facility] Address: [address] [place] [address] Performed By: #### 2 4323-8 #### [facility] CLIA [id number] [address] [place] [address] [place] FLUORO ERCP (POC) FOR DDI US E ONLYon 09-04-2022 [facility] NURSING PROGon 09-04-2022 NURSING PROG HNO ID: [id number] Author: Adeline Martínez RN Service: Nursing Author [...] RN In Department: HOSP MAIN G100 Normal [facility] PT panel Coag (PPP)on 2022 INR Coag (PPP) [Relative time] 1.1 {INR} Normal 0.9-1.3 [facility] Comment on above: Order Comment: Noe madrid Type: BLOOD SPECIMEN Ordering Facility: [facility] Address: [address] [place], [place] [address] Result Comment: Aster min K Antagonist (VKA) Therapeutic Range: INR 2 to 3 (Target INR of 2.5) Note: For patients treated with VKA drugs, such as warfarin, the [place] [employer] 2012 Guideline recommends [...] Chest 2012, 141:7S-47S Goldie RA, et al. [facility] 2017, 70: 252-289 Performed By: #### 5 763-8, COPPER #### [facility] CLIA [id number] [address] [place] [address] [place] PT Coag (PPP) [Time] 11.0 s Normal 9.7-13.0 [facility] Comment on above: Order Comment: Noe madrid Type: BLOOD SPECIMEN Ordering Facility: [facility] Address: [address] [id number] Performed By: #### 5 763-8, COPPER #### [facility] CLIA [id number] [address] [place] [address] [place] Tacrolimus Bld-ncon 2022 Tacrolimus (Bld) [Mass/Vol] 10.5 ng/mL Normal 5.0-20.0 [facility] Comment on above: Order Comment: Noe madrid Type: BLOOD SPECIMENOrdering Facility: [facility] Address: [address] [phone] Result Comment: Nannette vidualized target levels for [...] Alinity i. Performed By: #### 1 1253-2 ####[facility] [id number] [place] [address] [place] VITAMIN B6/PYRIDOXINon 09-04 VITAMIN B6 19.3 nmol/L Low 20.0-125.0 [facility] Comment on above: Order Comment: Noe madrid Type: BLOOD SPECIMEN Ordering Facility: [facility] Address: [address] [address] Result Comment: INTE RPRETIVE INFORMATION: Vitamin B6 (Pyridoxal 5-Phosphate) Pyridoxal 5'-phosphate measured in a specimen collected following an 8-hour or overnight fast accurately indicates vitamin B6 nutritional status. Non-fasting specimen concentration reflects recent vitamin intake. This test was developed and its performance characteristics determined by [employer]. It has not been cleared or approved by the [place] Food and Drug Administration. This test was performed in a CLIA certified laboratory and is intended for clinical purposes. Performed By: [employer] [facility] [employer] [address] [place] [address] Golf Course Ranger: Mic Rangel MD, PhD Performed By: #### V ITB6 #### [id number] [address] [place] [address] Zinc SerPl-mCncon 09-04-2022 Zinc [Mass/Vol] 57 ug/dL Low 60-120 [facility] Comment on above: Order Comment: Noe madrid Type: BLOOD SPECIMEN Ordering [facility] Address: [address] [address] Result Comment: This test was developed and its performance characteristics determined by [facility]'s [facility] [place] ([facility]). It has not been cleared or approved by the FDA. [facility] is regulated under CLIA as qualified to perform high-complexity testing. This test is used for clinical purposes. It should not be regarded as investigational or for research. Performed By: #### 5 763-8, COPPER #### [facility] CLIA [id number] [address] STATES OF [facility] BRIEF OP NOTon 09-03-2022 BRIEF OP NOT HNO ID: [id number] Author: oHward Shepherd MD Service: Radiology Author Type: Physician Type: Brief Op Note Filed: 09/03/2022 2:51 PM Note Text: BRIEF OPERATIVE / PROCEDURE NOTE LOG ID: [id number] SURGERY/PROCEDURE DATE: 08/31/2022 - 09/03/2022 INCISION/PROCEDURE START TIME: 2:34 PM INCISION CLOSE/PROCEDURE END TIME: 2:39 PM SURGEON(S)/PROCEDURALIS T(S) AND TOW PICKER(S): Surgeon(s) and Role: * Howard Shepherd MD [...] September 03, 2022 TIME: 2:50 PM Normal [facility] CASE MANAGEMon 09-03-2022 CASE MANAGEM HNO ID: [id number] Author: JEY Felton Service: ? Author Type: Fiber Heel Piece Shaper Type: Care Mgt Progress Note Filed: 09/03/2022 [...] 2022 TIME: 10:03 AM PAGER/CONTACT #: Normal [facility] CBC panel Auto (Bld)on 09-03 Erythrocyte distribution width (RBC) [Ratio] 16.9 % High 11.5-15.0 [facility] Comment on above: Order Comment: Speci men Type: BLOOD SPECIMENOrdering Facility: [facility] Address: [address] [place] [address] Performed By: #### 3 1201-7, 97285-2, IPFR ####[facility] [id number] [address] STATES OF [facility] Hematocrit (Bld) [Volume fraction] 33.9 % Low 39.0-51.0 [facility] Comment on above: Order Comment: Speci men Type: BLOOD SPECIMENOrdering Facility: [facility] Address: [address] [place] [address] Performed By: #### 3 1201-7, 07535-3, IPFR ####[facility] [id number] [address] [place] Hemoglobin (Bld) [Mass/Vol] 12.0 g/dL Low 13.0-17.0 [facility] Comment on above: Order Comment: Speci men Type: BLOOD SPECIMENOrdering Facility: [facility] Address: [address] [place] [address] Performed By: #### 3 1201-7, 05741-4, IPFR ####[facility] [id number] [address] [place] MCH (RBC) [Entitic mass] 30.2 pg Normal 26.0-34.0 [facility] Comment on above: Order Comment: Speci men Type: BLOOD SPECIMENOrdering Facility: [facility] Address: [address] [place] [address] Performed By: #### 3 1201-7, 67327-8, IPFR ####[facility] [id number] [place] [address] [place] MCHC (RBC) [Mass/Vol] 35.4 g/dL Normal 30.5-36.0 [facility] Comment on above: Order Comment: Speci men Type: BLOOD SPECIMENOrdering Facility: [facility] Address: [address] [place], [place] [address] Performed By: #### 3 1201-7, 77109-1, IPFR ####[facility] [id number] [address] OF [facility] MCV (RBC) [Entitic vol] 85.4 fL Normal 80.0-100.0 [facility] Comment on above: Order Comment: Speci men Type: BLOOD SPECIMENOrdering Facility: [facility] Address: [address] [place], [place] [address] Performed By: #### 3 1201-7, 16388-0, IPFR ####[facility] [id number] [address] [place] Nucleated RBC (Bld) [#/Vol] 10*3/uL Normal <0.01 [facility] Comment on above: Order Comment: Speci men Type: BLOOD SPECIMENOrdering Facility: [facility] Address: [address] [place], [place] [address] Performed By: #### 3 1201-7, 13714-7, IPFR ####[facility] [id number] [address] STATES OF [facility] Platelet mean volume (Bld) [Entitic vol] 12.1 fL Normal 9.0-12.7 [facility] Comment on above: Order Comment: Speci men Type: BLOOD SPECIMENOrdering Facility: [facility] Address: [address] [place], [place] [address] Performed By: #### 3 1201-7, 57860-7, IPFR ####[facility] [id number] [place] [address] [place] Platelets (Bld) [#/Vol] 39 10*3/uL Low 150-400 [facility] Comment on above: Order Comment: Speci men Type: BLOOD SPECIMENOrdering Facility: [facility] Address: [address] [place] [address] Result Comment: No c lot detected. Performed By: #### 3 1201-7, 56289-2, IPFR ####[facility] [id number] [place] [address] [place] RBC (Bld) [#/Vol] 3.97 10*6/uL Low 4.20-6.00 [facility] Comment on above: Order Comment: Noe mardid Type: BLOOD SPECIMENOrdering Facility: [facility] Address: [address] [place] [address] Performed By: #### 3 1201-7, 27908-5, IPFR ####[facility] [id number] [place] [address] [place] WBC (Bld) [#/Vol] 2.84 10*3/uL Low 3.70-11.00 [facility] Comment on above: Order Comment: Specjake madrid Type: BLOOD SPECIMENOrdering Facility: [facility] Address: [address] [place] [address] Performed By: #### 3 1201-7, 69620-8, IPFR ####[facility] [id number] [place] [address] [place] CONSULTon 09-03-2022 CONSULT HNO ID: [id number] Author: Agnes Johnson DO Service: Hematology Author Type: Physician Type: Consults Filed: 09/04/2022 3:29 PM Note Text: PATIENT NAME: Chuckie Villalta [facility] NO.: [id number] DATE OF SERVICE: September 03, 2022 PRIMARY [...] DIAGNOSTIC THAI (more content not included)... Normal [facility] Comprehensive metabolic 2000 panelon 09-03-2022 Albumin [Mass/Vol] 3.4 g/dL Low 3.9-4.9 [facility] Comment on above: Order Comment: Speci men Type: BLOOD SPECIMEN [facility] Address: [address] [place] [address] Performed By: #### 5 0189-0, , 2132-03 #### [facility] CLIA [id number] [address] [place] [address] [place] ALP [Catalytic activity/Vol] 99 U/L Normal 38-113 [facility] Comment on above: Order Comment: Speci men Type: BLOOD SPECIMEN Order[facility] Address: [address] [place] [address] Performed By: #### 5 0189-0, , 2132-03 #### [facility] CLIA [id number] [address] [place] [address] [place] ALT [Catalytic activity/Vol] 113 U/L High 10-54 [facility] Comment on above: Order Comment: Speci men Type: BLOOD SPECIMEN Order[facility] Address: [address] [place] [address] Performed By: #### 5 0189-0, , 2132-03 #### [facility] CLIA [id number] [address] [place] [address] [place] Anion gap [Moles/Vol] 10 mmol/L Normal 9-18 [facility] Comment on above: Order Comment: Speci men Type: BLOOD SPECIMEN Order[facility] Address: [address] [place], [place] [address] Performed By: #### 5 0189-0, , 2132-03 #### [facility] CLIA [id number] [address] [place] [address] [place] AST [Catalytic activity/Vol] 114 U/L High 14-40 [facility] Comment on above: Order Comment: Speci men Type: BLOOD SPECIMEN Order[facility] Address: [address] [place] [address] Performed By: #### 5 0189-0, , 2132-03 #### [facility] CLIA [id number] [address] [place] [address] [place] Bilirubin [Mass/Vol] 5.9 mg/dL High 0.2-1.3 [facility] Comment on above: Order Comment: Speci men Type: BLOOD SPECIMEN Order[facility] Facility[facility] Address: [address] [place] [address] Performed By: #### 5 0189-0, , 2132-03 #### [facility] CLIA [id number] [address] [place] [address] [place] Calcium [Mass/Vol] 8.6 mg/dL Normal 8.5-10.2 [facility] Comment on above: Order Comment: Speci men Type: BLOOD SPECIMEN Order[facility] Address: [address] [place], [place] Performed By: #### 5 0189-0, , 2132-03 #### [facility] CLIA [id number] [address] [place] [address] [place] Chloride [Moles/Vol] 103 mmol/L Normal 97-105 [facility] Comment on above: Order Comment: Speci men Type: BLOOD SPECIMEN Order[facility] Address: [address] [place], [place] Performed By: #### 5 0189-0, , 2132-03 #### [facility] CLIA [id number] [address] [place] [address] [place] CO2 [Moles/Vol] 22 mmol/L Normal 22-30 [facility] Comment on above: Order Comment: Speci men Type: BLOOD SPECIMEN [facility] Address: [address] [place] [address] Performed By: #### 5 0189-0, , 2132-03 #### [facility] CLIA [id number] [address] [place] [address] [place] Creatinine [Mass/Vol] 1.15 mg/dL Normal 0.73-1.22 [facility] Comment on above: Order Comment: Speci men Type: BLOOD SPECIMEN [facility] Address: [address] [place] [address] Performed By: #### 5 0189-0, , 2132-03 #### [facility] CLIA [id number] [address] [place] [address] [place] ESTIMATED GLOMERULAR FILTRATION RATE 85 mL/min/1.73m??? Normal >=60 [facility] Comment on above: Order Comment: Speci men Type: BLOOD SPECIMEN [facility] Address: [address] [place] [address] Result Comment: Brenda mated Glomerular Filtration Rate [...] By: #### 5 0189-0, , 2132-03 #### [facility] CLIA [id number] [address] [place] [address] [place] Glucose [Mass/Vol] 125 mg/dL High 74-99 [facility] Comment on above: Order Comment: Noe madrid Type: BLOOD SPECIMEN Order[facility] Address: [place] [address] Result Comment: The [place] [employer] (ADA) provides guidance for cutoff [...] Standards of Medical Care in Diabetes 2016, [place] [employer]. Diabetes Care. 2016.39(Suppl 1). Performed By: #### 5 0189-0, , 2132-03 #### [facility] CLIA [id number] [facility] [place] [address] [place] Potassium [Moles/Vol] 3.5 mmol/L Low 3.7-5.1 [facility] Comment on above: Order Comment: Noe madrid Type: BLOOD SPECIMEN Order[facility] Address: [address] [place] [phone] Performed By: #### 5 0189-0, , 2132-03 #### [facility] CLIA [id number] [facility] [place] [address] [place] Protein [Mass/Vol] 5.9 g/dL Low 6.3-8.0 [facility] Comment on above: Order Comment: Noe madrid Type: BLOOD SPECIMEN Order[facility] Address: [address] [place] [address] Performed By: #### 5 0189-0, , 2132-03 #### [facility] CLIA [id number] [address] [place] [address] [place] Sodium [Moles/Vol] 135 mmol/L Low 136-144 [facility] Comment on above: Order Comment: Speci mercy Type: BLOOD SPECIMEN Order[facility] Address: [address] [place], [place] [phone] Performed By: #### 5 0189-0, 17574-4, 2132-03 #### [facility] CLIA [id number] [address] [place] [address] [place] [facility] Urea nitrogen [Mass/Vol] 8 mg/dL Low 9-24 [facility] Comment on above: Order Comment: Speci mercy Type: BLOOD SPECIMEN Order[facility] Address: [address] [place] [address] Performed By: #### 5 0189-0, 06327-6, 2132-03 #### [facility] CLIA [id number] [address] [place] [address] [place] Creatinine Unsp time (U) [Ma ss/Vol]on 09-03-2022 Creatinine (U) [Mass/Vol] 75.6 mg/dL Normal 20.0-300.0 [facility] Comment on above: Order Comment: Louiei mercy Type: BLOOD SPECIMEN [facility] Address: [address] [place], [place] [phone] Performed By: #### 5 763-8, COPPER #### [facility] CLIA [id number] [address] [place] [address] [place] HISTORY PHYSICALon HISTORY PHYSICAL HNO ID: [id number] Author: Howard Shepherd MD Service: Radiology Author [...] September 03, 2022 TIME: 12:52 PM PAGER: [phone] Normal [facility] HIV 1+2 Ab IA Qlon 3 HIV 1 and 2 Ab IA.rapid Nom Normal [facility] Comment on above: Order Comment: Speci men Type: BLOOD SPECIMENOrdering Facility: [facility] Address: [address] [place] [address] Result Comment: Test not indicated. Performed By: #### 3 1201-7, 21875-3, IPFR ####[facility] [id number] [place] [address] [place] HIV 1+2 Ab+HIV1 p24 Ag IA Ql Non-Reactive Normal Nonreactive [facility] Comment on above: Order Comment: Speci men Type: BLOOD SPECIMENOrdering Facility: [facility] Address: [address] [place] [address] Performed By: #### 3 1201-7, 28363-9, IPFR ####[facility] [id number] [place] [address] [place] HIVINT Normal [facility] Comment on above: Order Comment: Speci men Type: BLOOD SPECIMENOrdering Facility: [facility] Address: [address] [place] [address] Result Comment: No e vidence of HIV-1 or HIV-2 infection. Should recent infection be suspected, repeat testing may be considered 2-3 weeks after this draw. Hand Rev. Code 3701.243(E): This information has been [...] or diagnoses. Performed By: #### 3 1201-7, 66126-5, IPFR ####[facility] [id number] [address] [place] IMMATURE PLATELET FRACTIONon 09-03-2022 Platelets reticulated/100 platelets Auto (Bld) 11.9 % High 0.9-7.2 [facility] Comment on above: Order Comment: Speci men Type: BLOOD SPECIMENOrdering Facility: [facility] Address: [address] [place] [address] Performed By: #### 3 1201-7, 07950-8, IPFR ####[facility] [id number] [place] [address] [place] bilirubin panel [Ma ss/Vol]on 09-03-2022 Bilirubin [Mass/Vol] 5.7 mg/dL High 0.2-1.3 [facility] Comment on above: Order Comment: Speci men Type: BLOOD SPECIMEN Order[facility] Address: [address] [place] [address] Performed By: #### 5 0189-0, 05049-7, 2132-9 #### [facility] CLIA [id number] [address] [place] [address] [place] Bilirubin.conjugated [Mass/Vol] 4.2 mg/dL High <0.2 [facility] Comment on above: Order Comment: Speci men Type: BLOOD SPECIMEN Order[facility] Address: [address] [place] [address] Performed By: #### 5 0189-0, 40962-0, 2132-03 #### [facility] CLIA [id number] [address] [place] [address] [facility] [place] Bilirubin.indirect [Mass/Vol] 1.5 mg/dL High <1.4 [facility] Comment on above: Order Comment: Speci men Type: BLOOD SPECIMEN Order[facility] Address: [address] [place] [address] Performed By: #### 5 0189-0, 85672-2, 2132-03 #### [facility] [facility] [place] [id number] [address] [place] [address] [place] PT EDon 09-03-2022 PT ED HNO ID: [id number] Author: Kia Lyon RN Service: Nursing Author [...] Signed By: Kia Ngo RN In Department: HOSP MAIN G100 Normal [facility] Platelets Auto (Bld) [#/Vol] on 09-03-2022 Platelets (Bld) [#/Vol] 38 10*3/uL Low 150-400 [facility] Comment on above: Order Comment: Speci men Type: BLOOD SPECIMEN [facility] Facility[facility] Address: [address] [address] Result Comment: No c lot detected. Performed By: #### 5 763-8, COPPER #### [facility] CLIA [id number] [address] [facility] [address] SURGICAL PATHOLOGYon 023 ADDENDUM 1: Normal [facility] Comment on above: Order Comment: Speci men Type: TISSUE SPECIMENOrdering Facility: [facility] Address: [address] [address] Result Comment: This addendum is issued to [...] been determined by the performing laboratory within [facility]???s [facility] Pathology and Laboratory Medicine [place] ([facility], [place], [facility], [facility], [facility], [facility], or [facility]) in a manner consistent with CLIA requirements. [...] at 4:39 PM Performed By: #### S ####[facility] [id number] [address] CASE REPORT Normal [facility] Comment on above: Order Comment: Noe [place] Type: TISSUE SPECIMENOrdering Facility: [facility] Address: [address] [place] [address] Result Comment: Surg [facility] Pathology Report Case: [id number] Authorizing Provider: Howard Shepherd MD Collected: 09/03/2022 02:35 PM Ordering Location: [place] [address] Received: 09/03/2022 03:04 PM Pathologist: August Oh MD Specimen: LIVER TRANSPLANT BIOPSY Performed By: #### S ####[facility] [id number] [address] CLINICAL HISTORY s/p liver transplant , elevated LFT's, history of rejection. Normal [facility] Comment on above: Order Comment: [place]e [place] Type: TISSUE SPECIMENOrdering Facility: [facility] Address: [address] [place] [address] Performed By: #### S ####[facility] [id number] [address] DIAGNOSIS COMMENT Normal [facility] Comment on above: Order Comment: Noe [place] Type: TISSUE SPECIMENOrdering Facility: [facility] Address: [address] [place] [address] Result Comment: The trichrome stain confirms the [...] been determined by the performing laboratory within [facility] [place] ([facility], [place], [facility], [facility], [facility], [facility], or [facility]) in a manner consistent with CLIA requirements. One or more of these tests have not been cleared or approved by the FDA. [facility] is regulated under CLIA as qualified to perform high-complexity testing. These tests are used for clinical purposes. They should not be regarded as investigational or for research. Positive and negative controls stain appropriately. Performed By: #### S ####[facility] [id number] [address] FINAL DIAGNOSIS Normal [facility] Comment on above: Order Comment: Speci men Type: TISSUE SPECIMENOrdering Facility: [facility] Address: [address] [address] Result Comment: Live r allograft, approximately 4 years 2 months post-transplantation, biopsy: - Liver parenchyma with reactive/regenerative change and focal portal change, indeterminate for T-cell mediated rejection (acute cellular rejection). Performed By: #### S ####[facility] [id number] [address] FINAL PERFORMING LAB Normal [facility] Comment on above: Order Comment: Speci men Type: TISSUE SPECIMENOrdering Facility: [facility] Address: [address] [address] Result Comment: Diag nostic interpretation performed at [facility], [address] [address] CLIA# [id number] Golf Course Ranger: Jony Gallegos M.D. Performed By: #### S ####[facility] [id number] [place] [address] [place] GROSS DESCRIPTION Normal [facility] Comment on above: Order Comment: Speci men Type: TISSUE SPECIMENOrdering Facility: [facility] Address: [address] [address] Result Comment: A. L IVER TRANSPLANT BIOPSY Received in formalin is one segment of cylindrical tissue measuring 1.7 x 0.1 x 0.1 cm, montanez-orange and of a soft and friable consistency. Totally submitted in one cassette. September 03, 2022 5:19 PM Gross examination performed at [facility], [address] [place] [address] Performed By: #### S ####[facility] [id number] [place] [address] [place] Sodium ?Tm Ur-sCncon 023 Sodium Unsp time (U) [Moles/Vol] 82 mmol/L Normal 14-216 [facility] Comment on above: Order Comment: Speci men Type: BLOOD SPECIMEN [facility] Address: [address] [place] [address] Performed By: #### 5 763-8, COPPER #### [facility] CLIA [id number] [address] [place] [address] [place] TOX SCREEN ROUT URon 023 Amphetamines Confirm (U) [Mass/Vol] Negative Normal Negative [facility] Comment on above: Order Comment: Speci men Type: BLOOD SPECIMEN [facility] Address: [address] [place] [address] Result Comment: Cuto ff threshold at 1000 ng/mL. Performed By: #### 5 763-8, COPPER #### [facility] CLIA [id number] [address] [place] [address] [place] BARBITURATES, URINE Negative Normal Negative [facility] Comment on above: Order Comment: Speci men Type: BLOOD SPECIMEN [facility] Address: [address] [address] Result Comment: Cuto ff threshold at 200 ng/mL. Performed By: #### 5 763-8, COPPER #### [facility] CLIA [id number] [address] [place] [address] [place] BENZODIAZEPINES, UR Negative Normal Negative [facility] Comment on above: Order Comment: Speci men Type: BLOOD SPECIMEN [facility] Address: [address] [address] Result Comment: Cuto ff threshold at 200 ng/mL. Performed By: #### 5 763-8, COPPER #### [facility] CLIA [id number] [address] [place] [address] [place] CANNABINOIDS,URINE Negative Normal Negative [facility] Comment on above: Order Comment: Speci men Type: BLOOD SPECIMEN [facility] Address: [address] [place] [address] Result Comment: Cuto ff threshold at 50 ng/mL. Performed By: #### 5 763-8, COPPER #### [facility] CLIA [id number] [address] [place] [address] [place] Cocaine Ql (U) Negative Normal Negative [facility] Comment on above: Order Comment: Speci men Type: BLOOD SPECIMEN [facility] Address: [address] [address] Result Comment: Cuto ff threshold at 300 ng/mL. Performed By: #### 5 763-8, COPPER #### [facility] CLIA [id number] [address] [place] [address] [place] Ethanol (U) [Mass/Vol] <11 Normal <11 [facility] Comment on above: Order Comment: Speci men Type: BLOOD SPECIMEN [facility] Address: [address] [place] [address] Performed By: #### 5 763-8, COPPER #### [facility] CLIA [id number] [address] [place] [address] [place] Opiates Screen Ql (U) Positive Abnormal Negative [facility] Comment on above: Order Comment: Speci men Type: BLOOD SPECIMEN [facility] Address: [address] [place] [address] Result Comment: Cuto ff threshold at 300 ng/mL. Performed By: #### 5 763-8, COPPER #### [facility] CLIA [id number] [address] [place] [address] [place] oxyCODONE cutoff Screen (U) [Mass/Vol] Negative Normal Negative [facility] Comment on above: Order Comment: Speci men Type: BLOOD SPECIMEN [facility] Address: [address] [place] [address] Result Comment: Cuto ff threshold at 100 ng/mL. Performed By: #### 5 763-8, COPPER #### [facility] CLIA [id number] [address] [place] [address] [place] Phencyclidine Ql (U) Negative Normal Negative [facility] Comment on above: Order Comment: Speci men Type: BLOOD SPECIMEN [facility] Address: [address] [place] [address] Result Comment: Cuto ff threshold at 25 ng/mL. Performed By: #### 5 763-8, COPPER #### [facility] CLIA [id number] [address] [place] [address] [place] TYPE + SCREENon 09-03-2022 ABO A Normal [facility] Comment on above: Order Comment: Speci men Type: BLOOD SPECIMENOrdering Facility: [facility] Address: [address] [place] [address] Performed By: #### T SCR ####[facility]ANKCL[facility] [id number] [address] HISTORICAL AB SCR STATUS Positive Abnormal [facility] Comment on above: Order Comment: Speci men Type: BLOOD SPECIMENOrdering Facility: [facility] Address: [address] [place] [address] Performed By: #### T SCR ####[facility] BANKCLIA [id number] [address] Rh Nom (Bld) Negative Normal [facility] Comment on above: Order Comment: Speci men Type: BLOOD SPECIMENOrdering Facility: [facility] Address: [address] [place] [address] Performed By: #### T SCR ####[facility] BANKCLIA [id number] [address] TYPE AND SCREEN EXPIRATION 09/06/2022 23:59 Normal [facility] Comment on above: Order Comment: Speci men Type: BLOOD SPECIMENOrdering Facility: [facility] Address: [address] [place] [address] Performed By: #### T SCR ####[facility] BANKCLIA [id number] [address] Tacrolimus Bld-mCncon 2022 Tacrolimus (Bld) [Mass/Vol] 9.2 ng/mL Normal 5.0-20.0 [facility] Comment on above: Order Comment: Speci men Type: BLOOD SPECIMEN [facility] Address: [address] [place] [address] Result Comment: Thes e reference ranges are [...] situation. Test performed by chemiluminescent immunoassay using [employer]. Performed By: #### 5 0189-0, 53264-8, 2132-9 #### [facility] CLIA [id number] [address] [place] [address] [place] US BIOPSY LIVERon 09-03-2022 US BIOPSY LIVER * * *Final Report* * * DATE OF EXAM: Sep 03 2022 4:01PM [facility] 1073 - US BIOPSY LIVER / PROCEDURE [...] history of rejection. STAFF RADIOLOGIST: Dr. Shepherd TOW PICKER(S): None CONSENT: The risks, benefits, treatment options, [...] performed by the: attending radiologist, without an nurse practitioner physician assistant. The attending radiologist performed the following procedural [...] ULTRASOUND GUIDED RANDOM LIVER TRANSPLANT BIOPSY DESCRIBED Government Affairs Specialist: GUILLE Transcribe Date/Time: Sep 03 2022 5:36P Dictated by : HOWARD SHEPHERD MD This examination was interpreted and the report reviewed and electronically signed by: HOWARD SHEPHERD MD on Sep 03 2022 5:38PM EST [id number] Normal [facility] Urinalysis complete panel (U )on 09-03-2022 Bilirubin Ql (U) 1+ Abnormal Negative [facility] Comment on above: Order Comment: Speci men Type: BLOOD SPECIMEN [facility] Address: [address] [place] [address] Result Comment: Sugg est correlation with clinical findings and serum bilirubin if clinically indicated. Performed By: #### 2 4323-8 #### [facility] CLIA [id number] [facility] [place] [address] [place] Clarity (Unsp spec) Clear Normal Clear [facility] Comment on above: Order Comment: Speci men Type: BLOOD SPECIMEN [facility] Address: [address] [place] [address] Performed By: #### 2 4323-8 #### [facility] CLIA [id number] [address] [place] [address] [place] Color (U) Yellow Normal Yellow [facility] Comment on above: Order Comment: Speci men Type: BLOOD SPECIMEN [facility] Address: [address] [place] [address] Performed By: #### 2 4323-8 #### [facility] CLIA [id number] [facility] [place] [address] [place] Glucose Test strip (U) [Mass/Vol] Negative Normal Trace, Negative [facility] Comment on above: Order Comment: Speci men Type: BLOOD SPECIMEN [facility] Address: [address] Performed By: #### 2 4323-8 #### [facility] CLIA [id number] [address] [place] [address] [place] Hemoglobin Ql (U) Negative Normal Negative, Trace [facility] Comment on above: Order Comment: Speci men Type: BLOOD SPECIMEN [facility] Address: [address] Performed By: #### 2 4323-8 #### [facility] CLIA [id number] [address] [place] [address] [place] Ketones Ql (U) 1+ Abnormal Trace, Negative [facility] Comment on above: Order Comment: Speci men Type: BLOOD SPECIMEN [facility] Address: [address] Performed By: #### 2 4323-8 #### [facility] CLIA [id number] [address] [place] [address] [place] Leukocyte esterase Test strip Ql (U) Negative Normal Negative, 25 Daniel/uL [facility] Comment on above: Order Comment: Speci men Type: BLOOD SPECIMEN [facility] Address: [address] Performed By: #### 2 4323-8 #### [facility] CLIA [id number] [address] [place] [address] [place] Nitrite Ql (U) Negative Normal Negative [facility] Comment on above: Order Comment: Speci men Type: BLOOD SPECIMEN [facility] Address: [address] Performed By: #### 2 4323-8 #### [facility] CLIA [id number] [address] [place] [address] [place] pH (U) 6.0 [pH] Normal 5.0-8.0 [facility] Comment on above: Order Comment: Speci men Type: BLOOD SPECIMEN [facility] Address: [address] [place] [address] Performed By: #### 2 4323-8 #### [facility] CLIA [id number] [address] [place] [address] [place] Protein (U) [Mass/Vol] Trace Normal Trace , Negative [facility] Comment on above: Order Comment: Speci men Type: BLOOD SPECIMEN [facility] Address: [address] [place], [place] [address] Performed By: #### 2 4323-8 #### [facility] CLIA [id number] [address] [place] [address] [place] RBC LM.HPF (Urine sed) [#/Area] 0-3 /HPF Normal 0-3 /HPF [facility] Comment on above: Order Comment: Speci men Type: BLOOD SPECIMEN [facility] Address: [address] [place], [place] [address] Performed By: #### 2 4323-8 #### [facility] CLIA [id number] [address] [place] [address] [place] Specific gravity (U) [Rel density] 1.009 Normal 1.005-1.030 [facility] Comment on above: Order Comment: Speci men Type: BLOOD SPECIMEN [facility] Address: [address] [place], [place] [address] Performed By: #### 2 4323-8 #### [facility] CLIA [id number] [address] [place] [address] [place] Urobilinogen Ql (U) 1+ Abnormal Negative [facility] Comment on above: Order Comment: Speci men Type: BLOOD SPECIMEN [facility] Address: [address] [address] Performed By: #### 2 4323-8 #### [facility] CLIA [id number] [address] [place] [address] [place] WBC LM.HPF (Urine sed) [#/Area] 0-5 /HPF Normal 0-5 /HPF [facility] Comment on above: Order Comment: Speci men Type: BLOOD SPECIMEN [facility] Address: [address] [place] [address] Performed By: #### 2 4323-8 #### [facility] IA [id number] [address] [place] [address] [place] Vit B12 SerPl-mCncon 023 Cobalamin (Vitamin B12) [Mass/Vol] 802 pg/mL Normal 232-1245 [facility] Comment on above: Order Comment: Speci men Type: BLOOD SPECIMEN [facility] Address: [address] [place] [address] Performed By: #### 5 0189-0, 56056-6, 2132-9 #### [facility] [place] [id number] [address] [place] [address] [place] ALPHA-1 ANTITRYPSIN GENOon 0 09-02-2022 HA1AT REVIEWED BY Radha [facility] Comment on above: Order Comment: Speci men Type: BLOOD SPECIMENOrdering Facility: [facility] Address: [address] [place] [address] Result Comment: Alph a-1 Antitrypsin Genotyping Laboratory Accession Number: [id number] Result: No Variant Detected in SERPINA1 (PI*MM) [...] two most common pathogenic variants: S (c.863A>T, p.Xae035Tjg, g.28271555), Z (c.1096G>A, p.Swx910Gda, g.59152733), and the rarer variants: F (c.739C>T, p.Rlh178Whc, g.10669600), I (c.187C>T, p.Qoi88Jtb, g.74033083). Limitations: This Laboratory Developed Test (LDT) is [...] developed and its performance characteristics determined by [facility]'s [facility] Pathology and Laboratory Medicine [place] ([facility]). It has not been cleared or approved by the FDA. [facility] is regulated under CLIA as certified to perform high- complexity testing. This test is used for clinical purposes. It should not be regarded as investigational or for research. Testing and interpretation performed at [facility], [address] [place] [address]. CLIA Number: [id number] References: 1) Kun SANTANA, Manjit G, Radha ML, Alexandr M, Domingo CE, K, Tia DK, Edilma SL, Aiden MIRANDA, Luz Maria THOMPSON, Mateusz Mazariegos, Taina Ray. The Diagnosis and Management of Alpha-1 Antritrypsin Deficiency in the Adult. Chronic Obstr Pulm Dis. 2016 Dec 30;3:668-682. 2) Andrew JA, Vickey ON, Bossman ER, Jackson DG. a1-Antitrypsin phenotypes and associated serum protein concentrations in a large clinical population. Chest.2013 Oct;143(4):1000-8. 3) Tom A, Jalen NA, Fei CR, Fina FJ, Michel SJ, Agapito AF. Molecular characterisation of three rgsla-7-ujoddkpafew deficiency variants: proteinase inhibitor (Pi) nullcardiff (Zcq738----Yrm); PiMmalton (Exj04----oslbjder) and PiI (Upp00----Gae). Hum Vonnie. 1988;84(1):55-8. 4) Reg STILL and Kun SANTANA. Clinical practice. Alpha1-antitrypsin deficiency. N Engl J Med. 2008Jan 18;360(28)6626-25. 5) Kimi NJ, Jovan F, Lindy SANTANA. The significance of the F variant of grfdg-0-zflagmntpsc and unique case report of a PiFF homozygote. [facility] Pulm Med. 2014 Mar 02;14:132. 6) Luz Maria THOMPSON, Michelle FARIAS, and Dharmesh Rosaod. Alpha-1 Antitrypsin Deficiency. 2005May 22 [Updated 2017 August 14]. In: Moises SANTANA, Zacarias MP, Kwan TO, et al., editors. GeneReviews [Internet]. [place] ([place]): [facility], [place]; 2306-1332. Available from: http://www.ncbi.nlm.nih.gov/books/TNT3526/ As reviewed by Isabel Breaux, PhD, FAC Performed By: #### H A1AT ####CLARITY AIDEE HILLShivani [id number] [address] [place] BY IFA WITH REFLEXon Nuclear Ab IF (S) [Titer] Negative Normal Negative [facility] Comment on above: Order Comment: Speci men Type: BLOOD SPECIMEN [facility] Address: [address] [address] Result Comment: Anti -nuclear antibody test is used as an aid in diagnosis of systemic autoimmune diseases. Where positive and clinically warranted, follow-up using disease-specific testing is recommended. Low positive titers are not uncommon with advanced age, certain chronic infections, and malignancies among others. Test methodology: Indirect fluorescence immunoassay (IFA) using HEp-2 cells. Performed By: #### 5 763-8, COPPER #### [facility] CLIA [id number] [address] STATES [facility] CBC W Ordered Manual Differe ntial panel (Bld)on 09-02-2022 Basophils (Bld) [#/Vol] 10*3/uL Normal <0.11 [facility] Comment on above: Order Comment: Speci men Type: BLOOD SPECIMENOrdering Facility: [facility] Address: [address] [address] Performed By: #### S TFREV, 22575-3, [id number] ####[facility] [id number] [address] STATES [facility] Basophils/100 WBC (Bld) 0.2 % Normal [facility] Comment on above: Order Comment: Speci men Type: BLOOD SPECIMENOrdering Facility: [facility] Address: [address] [address] Performed By: #### S TFREV, 71492-5, [id number] ####[facility] [id number] [address] STATES [facility] Differential cell count method Nom (Bld) Auto Normal [facility] Comment on above: Order Comment: Speci men Type: BLOOD SPECIMENOrdering Facility: [facility] Address: [address] [place] [address] Performed By: #### S TFREV, 70442-6, [id number] ####[facility]IA [id number] [place] [address] [facility] Eosinophils (Bld) [#/Vol] 0.05 10*3/uL Normal <0.46 [facility] Comment on above: Order Comment: Speci men Type: BLOOD SPECIMENOrdering Facility: [facility] Address: [address] [place] [address] Performed By: #### S TFREV, 07315-0, [id number] ####[facility] [id number] [address] [place] Eosinophils/100 WBC (Bld) 1.2 % Normal [facility] Comment on above: Order Comment: Speci men Type: BLOOD SPECIMENOrdering Facility: [facility] Address: [address] [place] [address] Performed By: #### S TFREV, 02431-1, [id number] ####[facility] [id number] [place] [address] [place] Erythrocyte distribution width (RBC) [Ratio] 16.9 % High 11.5-15.0 [facility] Comment on above: Order Comment: Speci men Type: BLOOD SPECIMENOrdering Facility: [facility] Address: [address] [place] [address] Performed By: #### S TFREV, 09990-9, [id number] ####[facility] [id number] [address] [place] Hematocrit (Bld) [Volume fraction] 36.7 % Low 39.0-51.0 [facility] Comment on above: Order Comment: Speci men Type: BLOOD SPECIMENOrdering Facility: [facility] Address: [address] [place], [place] [address] Performed By: #### S TFREV, 00900-3, [id number] ####[facility] [id number] [place] [address] [place] Hemoglobin (Bld) [Mass/Vol] 12.9 g/dL Low 13.0-17.0 [facility] Comment on above: Order Comment: Speci men Type: BLOOD SPECIMENOrdering Facility: [facility] Address: [address] [place] [address] Performed By: #### S TFREV, 28716-3, [id number] ####[facility] [id number] [place] [address] [place] Immature granulocytes (Bld) [#/Vol] 0.05 10*3/uL Normal <0.10 [facility] Comment on above: Order Comment: Speci men Type: BLOOD SPECIMENOrdering Facility: [facility] Address: [address] [place], [place] [address] Performed By: #### S TFREV, 70449-8, [id number] ####[facility] [id number] [place] [address] [place] Immature granulocytes/100 WBC (Bld) 1.2 % Normal [facility] Comment on above: Order Comment: Speci men Type: BLOOD SPECIMENOrdering Facility: [facility] Address: [address] Performed By: #### S TFREV, 85431-0, [id number] ####[facility] [id number] [place] [address] [place] Lymphocytes (Bld) [#/Vol] 0.31 10*3/uL Low 1.00-4.00 [facility] Comment on above: Order Comment: Speci men Type: BLOOD SPECIMENOrdering Facility: [facility] Address: [address] [place], [place] [address] Performed By: #### S CECIL, 79638-8, [id number] ####[facility] [id number] [address] Lymphocytes/100 WBC (Bld) 7.4 % Normal [facility] Comment on above: Order Comment: Speci men Type: BLOOD SPECIMENOrdering Facility: [facility] Address: [address] [place], [place] [address] Performed By: #### S CECIL, 18968-3, [id number] ####[facility] [id number] [address] [place] MCH (RBC) [Entitic mass] 30.0 pg Normal 26.0-34.0 [facility] Comment on above: Order Comment: Speci men Type: BLOOD SPECIMENOrdering Facility: [facility] Address: [address] [place], [place] [address] Performed By: #### S CECIL, 94362-8, [id number] ####[facility] [id number] [address] [place] MCHC (RBC) [Mass/Vol] 35.1 g/dL Normal 30.5-36.0 [facility] Comment on above: Order Comment: Speci men Type: BLOOD SPECIMENOrdering Facility: [facility] Address: [address] [place], [place] [address] Performed By: #### S CECIL, 79702-3, [id number] ####[facility] [id number] [address] [place] MCV (RBC) [Entitic vol] 85.3 fL Normal 80.0-100.0 [facility] Comment on above: Order Comment: Speci men Type: BLOOD SPECIMENOrdering Facility: [facility] Address: [address] [address] Performed By: #### S TFREV, 72882-7, [id number] ####[facility] [id number] [place] [address] [place] Monocytes (Bld) [#/Vol] 0.33 10*3/uL Normal <0.87 [facility] Comment on above: Order Comment: Speci men Type: BLOOD SPECIMENOrdering Facility: [facility] Address: [address] [address] Performed By: #### S TFRROSA, 11025-5, [id number] ####[facility] [id number] [place] [address] [place] Monocytes/100 WBC (Bld) 7.9 % Normal [facility] Comment on above: Order Comment: Speci men Type: BLOOD SPECIMENOrdering Facility: [facility] Address: [address] [place] [address] Performed By: #### S TFRROSA, 45869-3, [id number] ####[facility] [id number] [place] [address] [place] Neutrophils (Bld) [#/Vol] 3.42 10*3/uL Normal 1.45-7.50 [facility] Comment on above: Order Comment: Speci men Type: BLOOD SPECIMENOrdering Facility: [facility] Address: [address] [address] Performed By: #### S TFREV, 61437-3, [id number] ####[facility] [id number] [place] [address] [place] Neutrophils/100 WBC (Bld) 82.1 % Normal [facility] Comment on above: Order Comment: Speci men Type: BLOOD SPECIMENOrdering Facility: [facility] Address: [address] [place] [address] Performed By: #### S TFREV, 84460-3, [id number] ####[facility] [id number] [place] [address] [place] Nucleated RBC (Bld) [#/Vol] 10*3/uL Normal <0.01 [facility] Comment on above: Order Comment: Speci men Type: BLOOD SPECIMENOrdering Facility: [facility] Address: [address] Performed By: #### S TFREV, 97392-0, [id number] ####[facility] [id number] [place] [address] [place] Nucleated RBC/100 WBC (Bld) [Ratio] 0.0 /100 WBC Normal [facility] Comment on above: Order Comment: Speci men Type: BLOOD SPECIMENOrdering Facility: [facility] Address: [address] Performed By: #### S TFREV, 12483-4, [id number] ####[facility] [id number] [place] [address] [place] Platelet mean volume (Bld) [Entitic vol] 12.1 fL Normal 9.0-12.7 [facility] Comment on above: Order Comment: Speci men Type: BLOOD SPECIMENOrdering Facility: [facility] Address: [address] [place] [address] Performed By: #### S TFREV, 36268-9, [id number] ####[facility] [id number] [place] [address] [place] Platelets (Bld) [#/Vol] 38 10*3/uL Low 150-400 [facility] Comment on above: Order Comment: Speci men Type: BLOOD SPECIMENOrdering Facility: [facility] Address: [address] [place] [address] Result Comment: No c lot detected. Performed By: #### S TFREV, 56325-0, [id number] ####[facility] [id number] [address] [place] RBC (Bld) [#/Vol] 4.30 10*6/uL Normal 4.20-6.00 [facility] Comment on above: Order Comment: Speci men Type: BLOOD SPECIMENOrdering Facility: [facility] Address: [address] [place] [address] Performed By: #### S TFREV, 32292-7, [id number] ####[facility]IA [id number] [address] [place] WBC (Bld) [#/Vol] 4.17 10*3/uL Normal 3.70-11.00 [facility] Comment on above: Order Comment: Speci men Type: BLOOD SPECIMENOrdering Facility: [facility] Address: [address] [place] [address] Performed By: #### S TFREV, 08435-5, [id number] ####[facility]IA [id number] [address] [place] CBC panel Auto (Bld)on 09-02 Erythrocyte distribution width (RBC) [Ratio] 16.5 % High 11.5-15.0 [facility] Comment on above: Order Comment: Speci men Type: BLOOD SPECIMENOrdering Facility: [facility] Address: [address] [place] [address] Performed By: #### 5 8410-2, 65218-3 ####[facility] LABIA [id number] [address] [place] Hematocrit (Bld) [Volume fraction] 35.5 % Low 39.0-51.0 [facility] Comment on above: Order Comment: Speci men Type: BLOOD SPECIMENOrdering Facility: [facility] Address: [address] Performed By: #### 5 8410-2, 71127-0 ####[facility]IA [id number] [place] [address] [place] Hemoglobin (Bld) [Mass/Vol] 12.6 g/dL Low 13.0-17.0 [facility] Comment on above: Order Comment: Speci men Type: BLOOD SPECIMENOrdering Facility: [facility] Address: [address] [place], [place] [address] Performed By: #### 5 8410-2, 04925-4 ####[facility] [id number] [address] [place] MCH (RBC) [Entitic mass] 29.9 pg Normal 26.0-34.0 [facility] Comment on above: Order Comment: Speci men Type: BLOOD SPECIMENOrdering Facility: [facility] Address: [address] [place], [place] [address] Performed By: #### 5 8410-2, 91885-0 ####[facility] [id number] [address] STATES OF [facility] MCHC (RBC) [Mass/Vol] 35.5 g/dL Normal 30.5-36.0 [facility] Comment on above: Order Comment: Speci men Type: BLOOD SPECIMENOrdering Facility: [facility] Address: [address] [place], [place] [address] Performed By: #### 5 8410-2, 93398-7 ####[facility] [id number] [address] OF [facility] MCV (RBC) [Entitic vol] 84.1 fL Normal 80.0-100.0 [facility] Comment on above: Order Comment: Speci men Type: BLOOD SPECIMENOrdering Facility: [facility] Address: [address] [place], [place] [address] Performed By: #### 5 8410-2, 56068-1 ####[facility]CLIA [id number] [place] [address] [place] Nucleated RBC (Bld) [#/Vol] 10*3/uL Normal <0.01 [facility] Comment on above: Order Comment: Speci men Type: BLOOD SPECIMENOrdering Facility: [facility] Address: [address] [place], [place] [address] Performed By: #### 5 8410-2, 68262-2 ####[facility] LABIA [id number] [place] [address] [place] Platelet mean volume (Bld) [Entitic vol] 11.7 fL Normal 9.0-12.7 [facility] Comment on above: Order Comment: Speci men Type: BLOOD SPECIMENOrdering Facility: [facility] Address: [address] [place], [place] [address] Performed By: #### 5 8410-2, 15426-0 ####[facility] LABIA [id number] [place] [address] [place] Platelets (Bld) [#/Vol] 40 10*3/uL Low 150-400 [facility] Comment on above: Order Comment: Speci men Type: BLOOD SPECIMENOrdering Facility: [facility] Address: [address] [place], [place] [address] Result Comment: Resu lts checked and verified.No clot detected. Performed By: #### 5 8410-2, 69021-6 ####[facility] LABIA [id number] [place] [address] [place] RBC (Bld) [#/Vol] 4.22 10*6/uL Normal 4.20-6.00 [facility] Comment on above: Order Comment: Speci men Type: BLOOD SPECIMENOrdering Facility: [facility] Address: [address] [place], [place] [address] Performed By: #### 5 8410-2, 67370-1 ####[facility]CL[facility] [id number] [place] [address] [place] WBC (Bld) [#/Vol] 4.69 10*3/uL Normal 3.70-11.00 [facility] Comment on above: Order Comment: Speci men Type: BLOOD SPECIMENOrdering Facility: [facility] Address: [address] [address] Performed By: #### 5 8410-2, 88790-2 ####[facility]CL[facility] [id number] [place] [address] [place] CMV DNA DETECTION AND QUANTo n 09-02-2022 CMV DNA NOLBERTO+probe Qn (P) Not detected Normal Not Detected [facility] Comment on above: Order Comment: Speci men Type: BLOOD SPECIMENOrdering Facility: [facility] Address: [address] [address] Performed By: #### C MVQNT ####[facility] [id number] [place] [address] [place] Ceruloplasmin SerPl-mCncon 0 09-02-2022 Ceruloplasmin [Mass/Vol] 17 mg/dL Normal 15-30 [facility] Comment on above: Order Comment: Speci men Type: BLOOD SPECIMEN [facility] Address: [address] Performed By: #### V ITB6 #### [facility] [place] [id number] [address] [place] [address] Comprehensive metabolic 2000 panelon 09-02-2022 Albumin [Mass/Vol] 3.7 g/dL Low 3.9-4.9 [facility] Comment on above: Order Comment: Speci men Type: BLOOD SPECIMEN [facility] Address: [address] Performed By: #### 5 763-8, COPPER #### [facility] CLIA [id number] [address] [place] [address] [place] ALP [Catalytic activity/Vol] 98 U/L Normal 38-113 [facility] Comment on above: Order Comment: Speci men Type: BLOOD SPECIMEN [facility] Address: [address] [address] Performed By: #### 5 763-8, COPPER #### [facility] CLIA [id number] [address] [place] [address] [place] ALT [Catalytic activity/Vol] 175 U/L High 10-54 [facility] Comment on above: Order Comment: Speci men Type: BLOOD SPECIMEN [facility] Address: [address] [address] Performed By: #### 5 763-8, COPPER #### [facility] CLIA [id number] [address] [place] [address] [place] Anion gap [Moles/Vol] 13 mmol/L Normal 9-18 [facility] Comment on above: Order Comment: Speci men Type: BLOOD SPECIMEN [facility] Address: [address] [place], [place] [address] Performed By: #### 5 763-8, COPPER #### [facility] CLIA [id number] [address] [place] [address] [place] AST [Catalytic activity/Vol] 318 U/L High 14-40 [facility] Comment on above: Order Comment: Speci men Type: BLOOD SPECIMEN [facility] Address: [address] [place], [place] [address] Performed By: #### 5 763-8, COPPER #### [facility] CLIA [id number] [address] [id number] [place] Bilirubin [Mass/Vol] 10.9 mg/dL High 0.2-1.3 [facility] Comment on above: Order Comment: Speci men Type: BLOOD SPECIMEN [facility] Address: [address] Performed By: #### 5 763-8, COPPER #### [facility] CLIA [id number] [address] [place] [address] [place] Calcium [Mass/Vol] 8.9 mg/dL Normal 8.5-10.2 [facility] Comment on above: Order Comment: Speci men Type: BLOOD SPECIMEN [facility] Address: [address] Performed By: #### 5 763-8, COPPER #### [facility] CLIA [id number] [address] [place] [address] [place] Chloride [Moles/Vol] 99 mmol/L Normal 97-105 [facility] Comment on above: Order Comment: Speci men Type: BLOOD SPECIMEN [facility] Address: [address] Performed By: #### 5 763-8, COPPER #### [facility] CLIA [id number] [address] [place] [address] [place] CO2 [Moles/Vol] 20 mmol/L Low 22-30 [facility] Comment on above: Order Comment: Speci men Type: BLOOD SPECIMEN [facility] Address: [address] Performed By: #### 5 763-8, COPPER #### [facility] CLIA [id number] [address] [place] [address] [place] Creatinine [Mass/Vol] 1.18 mg/dL Normal 0.73-1.22 [facility] Comment on above: Order Comment: Speci men Type: BLOOD SPECIMEN [facility] Address: [address] Performed By: #### 5 763-8, COPPER #### [facility] CLIA [id number] [facility] [place] [address] [place] ESTIMATED GLOMERULAR FILTRATION RATE 82 mL/min/1.73m??? Normal >=60 [facility] Comment on above: Order Comment: [place] Type: BLOOD SPECIMEN [facility] Address: [address] [place] [address] Result Comment: Brenda mated Glomerular Filtration Rate [...] Performed By: #### 5 763-8, COPPER #### [facility] CLIA [id number] [address] [place] [address] [place] Glucose [Mass/Vol] 106 mg/dL High 74-99 [facility] Comment on above: Order Comment: [place] Type: BLOOD SPECIMEN [facility] Address: [address] [place] [address] Result Comment: The [place] [employer] (ADA) provides guidance for cutoff [...] Standards of Medical Care in Diabetes 2016, [place] [employer]. Diabetes Care. 2016.39(Suppl 1). Performed By: #### 5 763-8, COPPER #### [facility] CLIA [id number] [address] [place] [address] [place] Potassium [Moles/Vol] 3.7 mmol/L Normal 3.7-5.1 [facility] Comment on above: Order Comment: Speci men Type: BLOOD SPECIMEN [facility] Address: [address] [address] Performed By: #### 5 763-8, COPPER #### [facility] CLIA [id number] [address] [place] [address] [place] Protein [Mass/Vol] 6.0 g/dL Low 6.3-8.0 [facility] Comment on above: Order Comment: Speci men Type: BLOOD SPECIMEN [facility] Address: [address] [place] [address] Performed By: #### 5 763-8, COPPER #### [facility] CLIA [id number] [address] [place] [address] [place] Sodium [Moles/Vol] 132 mmol/L Low 136-144 [facility] Comment on above: Order Comment: Speci men Type: BLOOD SPECIMEN [facility] Address: [address] [place], [place] [address] Performed By: #### 5 763-8, COPPER #### [facility] CLIA [id number] [address] [place] [address] [place] Urea nitrogen [Mass/Vol] 8 mg/dL Low 9-24 [facility] Comment on above: Order Comment: Speci men Type: BLOOD SPECIMEN [facility] Address: [address] Performed By: #### 5 763-8, COPPER #### [facility] CLIA [id number] [address] [place] [address] [place] EBV capsid IgM Qn (S)on EBV VCA IGM, QUAL Negative Normal Negative [facility] Comment on above: Order Comment: Speci men Type: BLOOD SPECIMENOrdering Facility: [facility] Address: [address] [address] Result Comment: No s erological evidence of recent EBV infection. Performed By: #### 7 886-5, 2284-8, VZVG2 ####[facility] [id number] [place] [address] [place] CLARK IRENE PANELon 023 EBV NA AB, QUAL Positive Abnormal Negative [facility] Comment on above: Order Comment: Speci [facility] Type: BLOOD SPECIMEN [facility] Address: [address] [place] [address] Performed By: #### 2 4323-8 #### [facility] CLIA [id number] [address] [place] [address] [place] EBV VCA IGG, QUAL Positive Abnormal Negative [facility] Comment on above: Order Comment: Speci men Type: BLOOD SPECIMEN [facility] Address: [address] [address] Performed By: #### 2 4323-8 #### [facility] CLIA [id number] [address] [place] [address] [place] EBV VCA IGM, QUAL Negative Normal Negative [facility] Comment on above: Order Comment: Speci [facility] Type: BLOOD SPECIMEN [facility] Address: [address] [address] Performed By: #### 2 4323-8 #### [facility] CLIA [id number] [address] [place] [address] [place] INTERPRETATION (EBVPNL) Past Infection. EBV panel interpretation is a general guide that is meant to capture most, but not all, of the possible clinical scenarios. Non-specific reactivities are not uncommon especially with equivocal results. Should the overall interpretation not be consistent with the clinical picture, please contact the medical aides teacher of the test for assistance. Normal [facility] Comment on above: Order Comment: Speci men Type: BLOOD SPECIMEN [facility] Address: [address] [place] [address] Performed By: #### 2 4323-8 #### [facility] CLIA [id number] [address] [place] [address] [place] Ferritin SerPl-mCncon 2022 Ferritin [Mass/Vol] 345.0 ng/mL Normal 30.3-565.7 [facility] Comment on above: Order Comment: Speci men Type: BLOOD SPECIMEN [facility] Address: [address] [place] [address] Performed By: #### V ITB6 #### [facility] [id number] [address] [place] [address] Fibrinogen PPP-mCncon 2022 Fibrinogen Coag (PPP) [Mass/Vol] 442 mg/dL High 200-400 [facility] Comment on above: Order Comment: Speci men Type: BLOOD SPECIMEN [facility] Address: [address] [place] [address] Performed By: #### V ITB6 #### [facility] [id number] [address] [place] [address] Folate SerPl-mCncon 09-02-19 Folate [Mass/Vol] 13.7 ng/mL Normal >4.7 [facility] Comment on above: Order Comment: Speci men Type: BLOOD SPECIMENOrdering Facility: [facility] Address: [address] [place] [address] Performed By: #### 7 886-5, 2284-8, [id number] ####[facility] [id number] [place] [address] [place] HAV IgM Ser Qlon 09-02-2022 HAV IgM Ql (S) Negative Normal Negative [facility] Comment on above: Order Comment: Speci men Type: BLOOD SPECIMENOrdering Facility: [facility] Address: [address] [place] [address] Result Comment: No e vidence of recent infection with Hepatitis A virus. Performed By: #### 2 532-0, 5195-3, 93101-5, ####[facility] [id number] [place] [address] [place] HBV core IgM Ser Qlon 2022 HBV core IgM Ql (S) Negative Normal Negative [facility] Comment on above: Order Comment: Speci men Type: BLOOD SPECIMENOrdering Facility: [facility] Address: [address] [place] [address] Result Comment: No e vidence of recent infection with Hepatitis B virus. Should recent infection be suspected, repeat testing may be considered 3-4 weeks after this draw. Performed By: #### 2 532-0, 5195-3, 71964-5, ####[facility] [id number] [address] [place] HBV surface Ag Ser Qlon HBV surface Ag Ql (S) Negative Normal Negative [facility] Comment on above: Order Comment: Speci men Type: BLOOD SPECIMENOrdering Facility: [facility] Address: [address] [place] [address] Performed By: #### 2 532-0, 5195-3, 33425-9, ####[facility] [id number] [place] [address] [place] HCV RNA SerPl NOLBERTO+probe-[facility] on 09-02-2022 HCV RNA NOLBERTO+probe Qn Not detected Normal HCV RNA not detected by PCR. [facility] Comment on above: Order Comment: Speci mercy Type: BLOOD SPECIMEN [facility] Address: [address] [place] [address] Performed By: #### 5 763-8, COPPER #### [facility] CLIA [id number] [address] [facility] [id number] [place] HEP DELTA ABon 09-02-2022 HEP DELTA AB Negative Normal Negative [facility] Comment on above: Order Comment: [place] Type: BLOOD SPECIMENOrdering Facility: [facility] Address: [address] [place] [address] Result Comment: No a ntibody to Hepatitis Delta agent was detected. Order anti-HDV testing only when Hepatitis B virus infection has been confirmed. INTERPRETIVE INFORMATION: Hepatitis Delta Ab This test was developed and its performance characteristics determined by [employer]. It has not been cleared or approved by the [place] Food and Drug Administration. This test was performed in a CLIA certified laboratory and is intended for clinical purposes. Performed by [employer], [address] [place] [id number] [email or web address], Mic Rangel MD, PHD, Lab. Director Performed By: #### A HD ####[facility] [id number] [place] [address] HEPATITIS E VIRUS ABon 09-02 HEV IGG Not detected Normal [facility] Comment on above: Order Comment: [place] Type: BLOOD SPECIMENOrdering Facility: [facility] Address: [address] [place] [address] Performed By: #### H EPE ####[facility] [id number] [place] [address] HEV IGM Not detected Normal [facility] Comment on above: Order Comment: [place] Type: BLOOD SPECIMENOrdering Facility: [facility] Address: [address] [place], [place] [address] Result Comment: REFE RENCE RANGE: NOT DETECTED [...] analytical performance characteristics have been determined by [facility]. It has not been cleared or approved by FDA. This assay has been validated pursuant to the CLIA regulations and is used for clinical purposes. Performed By: #### H EPE ####[facility] [id number] [place] [address] HISTORY PHYSICALon HISTORY PHYSICAL HNO ID: [id number] Author: Carolin Crawford MD Service: Hepatology Author Type: Physician Type: HANDP Filed: 09/03/2022 5:06 PM Note Text: Department of Gastroenterology AND Hepatology Initial Consult Note Date of Service: September 02, 2022 Patient: Chuckie Villalta Medical Record: [id number] Reason for Admission / Consultation: Opinion/Advice regarding [...] Camacho MD Gastroenterology AND Hepatology Fellow Pager [phone] Discussed with staff. ==== History of Present [...] in his usual state of health until Saturaty 08/30/22 when he started to feel generalized malaise with nausea. No fever/chills. On Thursday, (more content not included)... Normal [facility] Haptoglob SerPl-mCncon 09-02 Haptoglobin [Mass/Vol] 36 mg/dL Normal 31-238 [facility] Comment on above: Order Comment: Noe [place]rid Type: BLOOD SPECIMEN Ordering Facility: [facility] Address: [address] [place] [address] Performed By: #### 5 763-8, COPPER #### [facility] CLIA [id number] 9500 [facility] [address]K [address] [address] [place] Iron and Iron binding capaci ty panelon 09-02-2022 Iron [Mass/Vol] 26 ug/dL Low 41-186 [facility] Comment on above: Order Comment: Speci men Type: BLOOD SPECIMEN Ordering Facility: [facility] Address: [address] [address] Performed By: #### V ITB6 #### [id number] [address] [place] [address] Iron binding capacity [Mass/Vol] 271 ug/dL Normal 232-386 [facility] Comment on above: Order Comment: Speci men Type: BLOOD SPECIMEN Ordering Facility: [facility] Address: [address] [place] [address] Performed By: #### V ITB6 #### [facility] [id number] [address] [place] [address] Iron/TIBC [Molar ratio] 9.6 % Low 15.0-57.0 [facility] Comment on above: Order Comment: Speci men Type: BLOOD SPECIMEN [facility]ing Facility: [facility] Address: [address] [place] [address] Performed By: #### V ITB6 #### [facility] [id number] [address] [place] [address] LDH SerPl-cCncon 09-02-2022 LDH [Catalytic activity/Vol] 207 U/L Normal 135-225 [facility] Comment on above: Order Comment: Speci men Type: BLOOD SPECIMENOrdering Facility: [facility] Address: [address] [place] [address] Performed By: #### 2 532-0, 5195-3, 35471-8, 63695-7 ####[facility] [id number] [place] [address] [place] Mitochondria Ab IF Ql (S)on 09-02-2022 Mitochondria M2 Ab IA Qn (S) 1.7 Units Normal <=20.0 [facility] Comment on above: Order Comment: Speci men Type: BLOOD SPECIMEN Ordering Facility: [facility] Address: [address] [place] [address] Performed By: #### 5 763-8, COPPER #### [facility] CLIA [id number] [address] [place] [address] [place] Mitochondria M2 Ab Ql (S) Negative Normal Negative [facility] Comment on above: Order Comment: Speci men Type: BLOOD SPECIMEN Ordering Facility: [facility] Address: [address] [place], [place] [address] Result Comment: Anti -mitochondrial antibody test is used as an aid in diagnosis of primary biliary cholangitis. Clinical correlation is required. Performed By: #### 5 763-8, COPPER #### [facility] CLIA [id number] [address] [place] [address] [place] NURSING PROGon 09-02-2022 NURSING PROG HNO ID: [id number] Author: Radha Mcpherson RN Service: Nursing Author [...] <1.5 Radha Mcpherson RN 3:59 PM Normal [facility] PATHOLOGIST INTERPRETATION C BC/DIFFon 09-02-[address] review Ernst (Unsp spec) [Interp] Reviewed by Flex Morataya MD Normal [facility] Comment on above: Order Comment: Speci men Type: BLOOD SPECIMENOrdering Facility: [facility] Address: [address] [place], [place] [address] Performed By: #### S TFREV, 89649-0, [id number] ####[facility] [id number] [address] [place] STAFF REVIEW, CBCDIF Normal [facility] Comment on above: Order Comment: Speci men Type: BLOOD SPECIMENOrdering Facility: [facility] Address: [address] [address] Result Comment: Norm ocytic anemia without polychromasia Absolute lymphopenia without leukopenia Thrombocytopenia Performed By: #### S TFREV, 76446-3, [id number] ####[facility] [id number] [place] [address] [place] PHOSPHATIDYLETHANOL (PETH)on 09-02-2022 PETH 16:0/18.2 (PLPETH) 278 ng/mL Normal [facility] Comment on above: Order Comment: Speci men Type: BLOOD SPECIMEN Ordering [facility]: [facility] Address: [address] [place] [address] Result Comment: Perf ormed By: [employer] [address] [place] [address] Golf Course Ranger: Mic Rangel MD, PhD Performed By: #### 5 763-8, COPPER #### [facility] CLIA [id number] [address] [place] [address] [place] PETH 16:0/18:1 (POPETH) 578 ng/mL Normal [facility] Comment on above: Order Comment: Speci men Type: BLOOD SPECIMEN Ordering [facility]: [facility] Address: [address] [place] [address] Result Comment: INTE RPRETIVE INFORMATION:Phosphatidylethanol (PEth), Whole [...] may have falsely elevated PEth concentrations (Darling MDARIGAL et al 2018, Alcoholism Clinical & Experimental Research). Test developed and characteristics determined by [employer]. See Compliance Statement B: [employer] Performed By: #### 5 763-8, COPPER #### [facility] CLIA [id number] [address] [facility] [address] OF [facility] PT panel Coag (PPP)on 2022 INR Coag (PPP) [Relative time] 1.2 {INR} Normal 0.9-1.3 [facility] Comment on above: Order Comment: Speci men Type: BLOOD SPECIMEN Ordering [facility]: [facility] Address: [address] [place], [place] [address] Result Comment: Aster min K Antagonist (VKA) Therapeutic Range: INR 2 to 3 (Target INR of 2.5) Note: For patients treated with VKA drugs, such as warfarin, the [place] [employer] 2012 Guideline recommends [...] Chest 2012, 141:7S-47S Goldie RA, et al. [facility] 2017, 70: 252-289 Performed By: #### V ITB6 #### [facility] CLIA [id number] [address] [place] [address] PT Coag (PPP) [Time] 11.9 s Normal 9.7-13.0 [facility] Comment on above: Order Comment: Speci men Type: BLOOD SPECIMEN [facility]: [facility] Address: [address] [place] [address] Performed By: #### V ITB6 #### [facility] CLIA [id number] [address] [place] [address] RBC MORPHOLOGYon 09-02-2022 Anisocytosis Ql (Bld) Present Normal [facility] Comment on above: Order Comment: Speci men Type: BLOOD SPECIMENOrdering Facility: [facility] Address: [address] [place] [address] Performed By: #### S TFREV, 31945-1, [id number] ####[facility] [id number] [address] Platelets Estimate (Bld) [#/Vol] Decreased Normal [facility] Comment on above: Order Comment: Speci men Type: BLOOD SPECIMENOrdering Facility: [facility] Address: [address] [address] Performed By: #### S TFREV, 40301-7, [id number] ####[facility] [id number] [address] [place] RBC morphology finding Nom (Bld) Reviewed: see results of individual morphologies Normal [facility] Comment on above: Order Comment: Speci men Type: BLOOD SPECIMENOrdering Facility: [facility] Address: [address] [place] [address] Performed By: #### S TFREV, 44684-1, [id number] ####[facility] [id number] [address] [place] Retics #on 09-02-2022 Reticulocytes (Bld) [#/Vol] 0.71134 10*3/uL Normal 0.018-0.100 [facility] Comment on above: Order Comment: Speci men Type: BLOOD SPECIMENOrdering Facility: [facility] Address: [address] [address] Performed By: #### 5 8410-2, 23576-4 ####[facility] [id number] [address] Reticulocytes (Bld) [#/Vol]o n 09-02-2022 Reticulocytes/100 RBC (Bld) 1.7 % Normal 0.4-2.0 [facility] Comment on above: Order Comment: Speci men Type: BLOOD SPECIMENOrdering Facility: [facility] Address: [address] [place] [address] Performed By: #### 5 8410-2, 52355-7 ####[facility] [id number] [address] [place] Smooth muscle Ab Ql (S)on ACTIN SMOOTH MUSCLE IGG QUALITATIVE Negative Normal Negative [facility] Comment on above: Order Comment: Speci men Type: BLOOD SPECIMEN [facility] Address: [address] [address] Performed By: #### 5 763-8, COPPER #### [facility] CLIA [id number] [address] [place] ACTIN SMOOTH MUSCLE IGG QUANTITATIVE 5 Units Normal <20 [facility] Comment on above: Order Comment: Speci men Type: BLOOD SPECIMEN [facility] Address: [address] [address] Performed By: #### 5 763-8, COPPER #### [facility] CLIA [id number] [address] [place] [address] [place] Tacrolimus Bld-mCncon 2022 Tacrolimus (Bld) [Mass/Vol] 7.4 ng/mL Normal 5.0-20.0 [facility] Comment on above: Order Comment: Speci men Type: BLOOD SPECIMENOrdering Facility: [facility] Address: [address] [place] [address] Result Comment: Thes e reference ranges are [...] Test performed by chemiluminescent immunoassay using [employer]. 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 Government Affairs Specialist: GUILLE Transcribe Date/Time: Sep 02 2022 3:34P Dictated by : PAMELA SIMMONS, DO This examination was interpreted and the report reviewed and electronically signed by: KAMRON SHAH MD on Sep 02 2022 4:04PM EST [id number] Normal [facility] VARICELLA ZOSTER IGGon 09-02 VARICELLA ZOSTER IGG, QUAL Positive Normal Positive [facility] Comment on above: Order Comment: Speci men Type: BLOOD SPECIMENOrdering Facility: [facility] Address: [address] [place] [address] Result Comment: The result suggests recent or past exposure to Varicella-Zoster virus or chickenpox vaccination or zoster vaccination. Positive result may also be seen due to presence of passively-transferred antibodies. Please correlate with patient's history. Performed By: #### 7 886-5, 2284-8, VZVG2 ####[facility] [id number] [facility] [id number] [address] [place] VARICELLA ZOSTER IGMon 09-02 VARICELLA ZOSTER, IGM 0.07 ISR Normal <=0.90 [facility] Comment on above: Order Comment: Noe [place] Type: BLOOD SPECIMEN [facility] Address: [place] [address] Result Comment: Specimen is icteric. Results may [...] 12 months post-infection or immunization. Performed By: [employer] [address] [place] [address] Golf Course Ranger: Mic Rangel MD, PhD Performed By: #### 5 0189-0, 87331-7, 2132-9 #### [facility] CLIA [id number] [address] OF [facility] aPTT PPPon 09-02-2022 aPTT Coag (PPP) [Time] 26.0 s Normal 23.0-32.4 [facility] Comment on above: Order Comment: Noe [place] Type: BLOOD SPECIMEN Order[facility] Address: [place] [address] Performed By: #### V ITB6 #### [email or web address] CLIA [id number] [address] [place] [address] CASE MGT INIT ASSESon 2022 CASE MGT INIT ASSES HNO ID: [id number] Author: JEY Felton Service: ? Author Type: Fiber Heel Piece Shaper Type: Care Mgt Initial Assessment Filed: 09/01/2022 10:16 AM Note Text: CARE MANAGEMENT: ASSESSMENT AND DISCHARGE PLAN SERVICE DATE: September 01, 2022 SERVICE TIME: 10:15 AM PRIMARY CARE PHYSICIAN: Luis Abdalla DO Primary Contact: Extended Emergency Contact Information Primary Emergency Contact: Remedios Villalta Address: [address] [facility] [address] [place] [address] [facility] Mobile Relation: Spouse ADMISSION STATUS: Inpatient Insurance Provider: MEDICARE A AND B NEEDS PRIOR TO DISCHARGE Needs Prior to Discharge: To Be Determined POTENTIAL TRANSITION PLANS Home Patient's perception of need for this admission: Pt is aware of admission and is in agreement ADVANCE DIRECTIVES Current Advance Directive: Health Care Power of Rag Inspector In Chart: Yes Up To Date and Valid: Yes CAREGIVER ASSESSMENT Caregiver is ready, willing and able to meet the patient's needs as recommended by the inter-professional team:: Yes Name of Caregiver: Remedios Villalta [phone] Patient's transition needs and plan for meeting these needs: Pt is aware of admission and is in agreement FREEDOM OF CHOICE EXPLAINED: Blanding of Choice Given: No Reason Not Given: [...] Discharge Barriers: Medical clearance for D/C SIGNATURE: JEY Jim PATIENT NAME: Chuckie Villalta DATE: September 01, 2022 TIME: 10:14 AM CONTACT #: Normal [facility] CBC panel Auto (Bld)on 09-01 Erythrocyte distribution width (RBC) [Ratio] 16.8 % High 11.5-15.0 [facility] Comment on above: Order Comment: Speci men Type: BLOOD SPECIMENOrdering Facility: [facility] Address: [address] [place] [address] [place] [address] Performed By: #### 5 8410-2 ####[facility] [id number] [place] [address] [place] Hematocrit (Bld) [Volume fraction] 37.0 % Low 39.0-51.0 [facility] Comment on above: Order Comment: Speci men Type: BLOOD SPECIMENOrdering Facility: [facility] Address: [address] [place] [address] Performed By: #### 5 8410-2 ####[facility] [id number] [address] [place] Hemoglobin (Bld) [Mass/Vol] 13.3 g/dL Normal 13.0-17.0 [facility] Comment on above: Order Comment: Speci men Type: BLOOD SPECIMENOrdering Facility: [facility] Address: [address] [place] [address] Performed By: #### 5 8410-2 ####[facility] [id number] [address] [place] MCH (RBC) [Entitic mass] 30.1 pg Normal 26.0-34.0 [facility] Comment on above: Order Comment: Speci men Type: BLOOD SPECIMENOrdering Facility: [facility] Address: [address] [place] [address] Performed By: #### 5 8410-2 ####[facility] [id number] [address] [place] MCHC (RBC) [Mass/Vol] 35.9 g/dL Normal 30.5-36.0 [facility] Comment on above: Order Comment: Speci men Type: BLOOD SPECIMENOrdering Facility: [facility] Address: [address] [place] [address] Performed By: #### 5 8410-2 ####[facility] [id number] [address] [place] MCV (RBC) [Entitic vol] 83.7 fL Normal 80.0-100.0 [facility] Comment on above: Order Comment: Speci men Type: BLOOD SPECIMENOrdering Facility: [facility] Address: [address] [place], [place] [address] Performed By: #### 5 8410-2 ####[facility] [id number] [place] [address] [place] Nucleated RBC (Bld) [#/Vol] 10*3/uL Normal <0.01 [facility] Comment on above: Order Comment: Speci men Type: BLOOD SPECIMENOrdering Facility: [facility] Address: [address] [place], [place] [address] Performed By: #### 5 8410-2 ####[facility] [id number] [address] [place] Platelet mean volume (Bld) [Entitic vol] 10.9 fL Normal 9.0-12.7 [facility] Comment on above: Order Comment: Speci men Type: BLOOD SPECIMENOrdering Facility: [facility] Address: [address] [place], [place] [address] Performed By: #### 5 8410-2 ####[facility] [id number] [place] [address] [place] Platelets (Bld) [#/Vol] 56 10*3/uL Low 150-400 [facility] Comment on above: Order Comment: Speci men Type: BLOOD SPECIMENOrdering Facility: [facility] Address: [address] [place], [place] [address] Result Comment: Resu lts checked and verified.No clot detected. Performed By: #### 5 8410-2 ####[facility] [id number] [place] [address] [place] RBC (Bld) [#/Vol] 4.42 10*6/uL Normal 4.20-6.00 [facility] Comment on above: Order Comment: Speci men Type: BLOOD SPECIMENOrdering Facility: [facility] Address: [address] [place], [place] [address] Performed By: #### 5 8410-2 ####[facility] [id number] [place] [address] [place] WBC (Bld) [#/Vol] 5.59 10*3/uL Normal 3.70-11.00 [facility] Comment on above: Order Comment: Speci men Type: BLOOD SPECIMENOrdering Facility: [facility] Address: [address] [place], [place] [address] Performed By: #### 5 8410-2 ####[facility] [id number] [place] [address] [place] Comp Metab 2000 Pnl SerPlon 09-01-2022 Bilirubin [Mass/Vol] 8.5 mg/dL High 0.2-1.3 [facility] Comment on above: Order Comment: Speci men Type: BLOOD SPECIMEN [facility] Address: [address] [place], [place] [address] Performed By: #### 5 763-8, COPPER #### [facility] CLIA [id number] [address] [place] [address] [place] Comprehensive metabolic 2000 panelon 09-01-2022 Albumin [Mass/Vol] 4.0 g/dL Normal 3.9-4.9 [facility] Comment on above: Order Comment: Speci men Type: BLOOD SPECIMEN [facility] Address: [address] [place], [place] [address] Performed By: #### 5 763-8, COPPER #### [facility] CLIA [id number] [address] [place] [address] [place] ALP [Catalytic activity/Vol] 65 U/L Normal 38-113 [facility] Comment on above: Order Comment: Speci men Type: BLOOD SPECIMEN [facility] Address: [address] [place] [address] Performed By: #### 5 763-8, COPPER #### [facility] CLIA [id number] [address] [place] [address] [place] ALT [Catalytic activity/Vol] 147 U/L High 10-54 [facility] Comment on above: Order Comment: Speci men Type: BLOOD SPECIMEN [facility] Address: [address] Performed By: #### 5 763-8, COPPER #### [facility] CLIA [id number] [address] [place] [address] [place] Anion gap [Moles/Vol] 10 mmol/L Normal 9-18 [facility] Comment on above: Order Comment: Speci men Type: BLOOD SPECIMEN [facility] Address: [address] Performed By: #### 5 763-8, COPPER #### [facility] CLIA [id number] [address] [place] [address] [place] AST [Catalytic activity/Vol] 617 U/L High 14-40 [facility] Comment on above: Order Comment: Speci men Type: BLOOD SPECIMEN [facility] Address: [address] [place] [address] Performed By: #### 5 763-8, COPPER #### [facility] CLIA [id number] [address] [place] [address] [place] Calcium [Mass/Vol] 8.6 mg/dL Normal 8.5-10.2 [facility] Comment on above: Order Comment: Speci men Type: BLOOD SPECIMEN [facility] Address: [address] Performed By: #### 5 763-8, COPPER #### [facility] CLIA [id number] [address] [place] [address] [place] Chloride [Moles/Vol] 102 mmol/L Normal 97-105 [facility] Comment on above: Order Comment: Speci men Type: BLOOD SPECIMEN [facility] Address: [address] [place] [address] Performed By: #### 5 763-8, COPPER #### [facility] CLIA [id number] [facility] [place] [address] [place] CO2 [Moles/Vol] 23 mmol/L Normal 22-30 [facility] Comment on above: Order Comment: Speci men Type: BLOOD SPECIMEN [facility] Address: [address] [place] [address] Performed By: #### 5 763-8, COPPER #### [facility] CLIA [id number] [address] [place] [address] [place] Creatinine [Mass/Vol] 1.23 mg/dL High 0.73-1.22 [facility] Comment on above: Order Comment: Speci men Type: BLOOD SPECIMEN [facility] Address: [address] [place] [address] Performed By: #### 5 763-8, COPPER #### [facility] CLIA [id number] [address] [place] [address] [place] ESTIMATED GLOMERULAR FILTRATION RATE 78 mL/min/1.73m??? Normal >=60 [facility] Comment on above: Order Comment: Speci men Type: BLOOD SPECIMEN [facility] Address: [address] [place] [address] Result Comment: Brenda mated Glomerular Filtration Rate [...] Performed By: #### 5 763-8, COPPER #### [facility] CLIA [id number] [address] [place] [address] [place] Glucose [Mass/Vol] 131 mg/dL High 74-99 [facility] Comment on above: Order Comment: Noe mad[place] Type: BLOOD SPECIMEN [facility] Address: [address] [place] [address] Result Comment: The [place] Diabetes Association (ADA) provides guidance for cutoff [...] Standards of Medical Care in Diabetes 2016, [place] [employer] Association. Diabetes Care. 2016.39(Suppl 1). Performed By: #### 5 763-8, COPPER #### [facility] CLIA [id number] [facility] [place] [address] [place] Potassium [Moles/Vol] 3.7 mmol/L Normal 3.7-5.1 [facility] Comment on above: Order Comment: Noe [place] Type: BLOOD SPECIMEN [facility] Address: [address] [place], [place] [address] Performed By: #### 5 763-8, COPPER #### [facility] CLIA [id number] [address] [place] [address] [place] Protein [Mass/Vol] 6.2 g/dL Low 6.3-8.0 [facility] Comment on above: Order Comment: Noe [place] Type: BLOOD SPECIMEN [facility] Address: [address] [place] [address] Performed By: #### 5 763-8, COPPER #### [facility] CLIA [id number] [address] [place] [address] [place] Sodium [Moles/Vol] 135 mmol/L Low 136-144 [facility] Comment on above: Order Comment: Speci men Type: BLOOD SPECIMEN [facility] Address: [address] [place] [address] Performed By: #### 5 763-8, COPPER #### [facility] CLIA [id number] [facility] [place] [address] [place] Urea nitrogen [Mass/Vol] 11 mg/dL Normal 9-24 [facility] Comment on above: Order Comment: Speci men Type: BLOOD SPECIMEN [facility] Address: [address] [place] [address] Performed By: #### 5 763-8, COPPER #### [facility] CLIA [id number] [facility] [place] ED NOTEon 09-01-2022 ED NOTE HNO ID: [id number] Author: Max Cuellar MD Service: Emergency Medicine [...] Updated Med QB ED Course as of 09/01/22 0225 Others' Documentation Sun Aug 31, 20221924 Lactate (POCT)(!): 4.7 Elevated concerning for sepsis. [KO] 1924 CBC + DIFF(!): WBC 17.95(!) RBC 5.58 Hemoglobin 16.7 Hematocrit 45.3 MCV 81.2 MCH 29.9 MCHC 36.9(!) RDW-CV 17.9(!) Platelet Count 164 MPV 10.8 Neut% 85.2 Abs Neut (ANC) 15.29(!) Lymph% 4.9 Abs Lymph 0.88(!) [place]% 9.0 Abs [place] 1.61(!) Eosin% 0.0 Abs Eosin <0.03 Baso% 0.3 Abs Baso 0.06 Immature Gran % 0.6 IMMATURE GRANS (ABS) 0.11(!) NRBC 0.0 Absolute nRBC <0.01 DTYPE Auto Leukocytosis present consistent with likely infection. No anemia or thrombocytopenia. [KO] 192 Magnesium(!): 1.6 Low, will replace. [KO] 1925 [...] the medicine service. Max Cuellar MD Normal [facility] HISTORY PHYSICALon 3 HISTORY PHYSICAL HNO ID: [id number] Author: Reymundo Charles MD Service: Hospital Medicine Author Type: Physician Type: HANDP Filed: 09/01/2022 12:49 AM Note Text: DEPARTMENT OF HOSPITAL MEDICINE HISTORY AND PHYSICAL EXAM SERVICE DATE: 09/01/2022 SERVICE TIME: 12:42 AM Primary Care Physician: Luis Abdalla, DO NIGHT AND WEEKEND COVERAGE: Please page [phone] until 7:30am this morning. Afterwards, patient will [...] 15.29 (*) Abs Lymph 0.88 (*) Abs [place] 1.61 (*) Abs Immature Gran 0.11 (*) All other components within normal limits Narrative: This is an appended report. These results have been appended to a previously verified report. ED BG VENOUS/LAB PANELS - Abnormal; Notable for the following components: Lactate (POCT) 4.7 (*) All other components within normal limits Narrative: Meter ID:ED Location:ED [facility], [address] [place] [address], [facility] ED BG VENOUS/LAB PANELS - Abnormal; Notable for the following components: Lactate (POCT) 2.7 (*) All other components within normal limits Narrative: Meter ID:ED Location:ED [facility], [address] [place] [address], [facility] PROTHROMBIN TIME/PT - Normal EXPEDITED COVID19 - Normal Narrative: This test has been authorized by FDA under an Emergency Use Authorization (EUA). Test performed by [facility], [facility] [place], [address] [place] [address]. LACTATE - ED (POC) LACTATE - ED [...] MEDICATIONS: Cu (more content not included)... Normal [facility] bilirubin panel [Ma ss/Vol]on 09-01-2022 Bilirubin.conjugated [Mass/Vol] 4.7 mg/dL High <0.2 [facility] Comment on above: Order Comment: Noe [place] Type: BLOOD SPECIMEN Ordering Facility: [facility] Address: [address] [place] [address] Performed By: #### 5 763-8, COPPER #### [facility] CLIA [id number] [address] [place] [address] [place] Bilirubin.indirect [Mass/Vol] 3.8 mg/dL High <1.4 [facility] Comment on above: Order Comment: Noe [place] Type: BLOOD SPECIMEN Ordering Facility: [facility] Address: [address] [place] [address] Performed By: #### 5 763-8, COPPER #### [facility] CLIA [id number] [address] [place] [address] [place] SEPSIS LACTATEon 09-01-2022 Lactate [Moles/Vol] 0.9 mmol/L Normal <=2.0 [facility] Comment on above: Order Comment: Noe [place] Type: BLOOD SPECIMEN Ordering Facility: [facility] Address: [address] [place] [address] Performed By: #### 5 763-8, COPPER #### [facility] CLIA [id number] [address] [place] [address] [place] US ABD RIGHT UPPER QUADRANTo n 09-01-2022 US ABD RIGHT UPPER QUADRANT * * *Final Report* * * DATE OF EXAM: Sep 01 2022 8:18PM U 1032 - US ABD RIGHT UPPER [...] biliary ductal dilation, similar compared to 10/30/2021. Government Affairs Specialist: PSCB Transcribe Date/Time: Sep 01 2022 8:45P Dictated by : MOLLY MAI MD This examination was interpreted and the report reviewed and electronically signed by: KATERIN ALY MD on Sep 01 2022 9:14PM EST [id number] Normal [facility] XR CHEST 1V FRONTAL PORTon 0 09-01-2022 [...] Lower ACDF. IMPRESSION: No acute cardiopulmonary process. Government Affairs Specialist: PSCB Transcribe Date/Time: Sep 01 2022 1:11A Dictated by : GLADYS VIEYRA MD This examination was interpreted and the report reviewed and electronically signed by: GLADYS VIEYRA MD on Sep 01 2022 1:12AM EST [id number] Normal [facility] Bacteria Bld Culton 08-31-19 23 Bacteria identified Cx Nom (Bld) CULTURE, BLOOD: No growth 5 days Normal [facility] Comment on above: Performed By: #### 2 4323-8 #### [facility] CLIA [id number] [address] [place] Bacteria identified Cx Nom (Bld) CULTURE, BLOOD: No growth 5 days Normal [facility] Comment on above: Performed By: #### 6 00-7 ####[facility] [id number] [address] [place] Bilirub Conj SerPl-mCncon Bilirubin.conjugated [Mass/Vol] 0.4 mg/dL High <0.2 [facility] Comment on above: Order Comment: Speci men Type: BLOOD SPECIMEN Ordering Facility: [facility] Address: [address] [place] [address] Result Comment: Resu lts may be falsely decreased due to interference from hemolysis. Suggest reorder as clinically indicated. Performed By: #### 5 763-8, COPPER #### [facility] CLIA [id number] [address] [place] [address] [place] CBC W Auto Differential pane l (Bld)on 08-31-2022 Basophils (Bld) [#/Vol] 0.06 10*3/uL Normal <0.11 [facility] Comment on above: Order Comment: Speci men Type: BLOOD SPECIMEN Ordering Facility: [facility] Address: [address] [place] [address] Performed By: #### V ITB6 #### [facility] CLIA [id number] [address] [place] [address] Basophils/100 WBC (Bld) 0.3 % Normal [facility] Comment on above: Order Comment: Speci men Type: BLOOD SPECIMEN Ordering Facility: [facility] Address: [address] [place] [address] Performed By: #### V ITB6 #### [facility] CLIA [id number] [address] [place] [address] Differential cell count method Nom (Bld) Auto Normal [facility] Comment on above: Order Comment: Speci men Type: BLOOD SPECIMEN Ordering Facility: [facility] Address: [address] [place] [address] Performed By: #### V ITB6 #### [facility] CLIA [id number] [address] [place] [address] Eosinophils (Bld) [#/Vol] 10*3/uL Normal <0.46 [facility] Comment on above: Order Comment: Speci men Type: BLOOD SPECIMEN Ordering Facility: [facility] Address: [address] [place] [address] Performed By: #### V ITB6 #### [facility] CLIA [id number] [address] [place] [address] Eosinophils/100 WBC (Bld) 0.0 % Normal [facility] Comment on above: Order Comment: Speci men Type: BLOOD SPECIMEN Ordering Facility: [facility] Address: [address] [place] [address] Performed By: #### V ITB6 #### [facility] CLIA [id number] [address] [place] [address] Erythrocyte distribution width (RBC) [Ratio] 17.9 % High 11.5-15.0 [facility] Comment on above: Order Comment: Speci men Type: BLOOD SPECIMEN Ordering Facility: [facility] Address: [address] [place] [address] Performed By: #### V ITB6 #### [facility] CLIA [id number] [address] [place] [address] Hematocrit (Bld) [Volume fraction] 45.3 % Normal 39.0-51.0 [facility] Comment on above: Order Comment: Speci men Type: BLOOD SPECIMEN Ordering Facility: [facility] Address: [address] [place] [address] Performed By: #### V ITB6 #### [facility] CLIA [id number] [address] [place] [address] Hemoglobin (Bld) [Mass/Vol] 16.7 g/dL Normal 13.0-17.0 [facility] Comment on above: Order Comment: Speci men Type: BLOOD SPECIMEN Ordering Facility: [facility] Address: [address] [place] [address] Performed By: #### V ITB6 #### [facility] CLIA [id number] [address] [place] [address] Immature granulocytes (Bld) [#/Vol] 0.11 10*3/uL High <0.10 [facility] Comment on above: Order Comment: Speci men Type: BLOOD SPECIMEN Ordering Facility: [facility] Address: [address] [place] [address] Performed By: #### V ITB6 #### [facility] CLIA [id number] [address] [place] [address] Immature granulocytes/100 WBC (Bld) 0.6 % Normal [facility] Comment on above: Order Comment: Speci men Type: BLOOD SPECIMEN Ordering Facility: [facility] Address: [address] [place] [address] Performed By: #### V ITB6 #### [facility] CLIA [id number] [address] [place] [address] Lymphocytes (Bld) [#/Vol] 0.88 10*3/uL Low 1.00-4.00 [facility] Comment on above: Order Comment: Speci men Type: BLOOD SPECIMEN Ordering Facility: [facility] Address: [address] [place] [address] Performed By: #### V ITB6 #### [facility] CLIA [id number] [address] [place] [address] Lymphocytes/100 WBC (Bld) 4.9 % Normal [facility] Comment on above: Order Comment: Speci men Type: BLOOD SPECIMEN Ordering Facility: [facility] Address: [address] [place] [address] Performed By: #### V ITB6 #### [facility] CLIA [id number] [address] [place] [address] MCH (RBC) [Entitic mass] 29.9 pg Normal 26.0-34.0 [facility] Comment on above: Order Comment: Speci men Type: BLOOD SPECIMEN Ordering Facility: [facility] Address: [address] [place] [address] Performed By: #### V ITB6 #### [facility] CLIA [id number] [address] [place] [address] MCHC (RBC) [Mass/Vol] 36.9 g/dL High 30.5-36.0 [facility] Comment on above: Order Comment: Speci men Type: BLOOD SPECIMEN Ordering Facility: [facility] Address: [address] [place] [address] Performed By: #### V ITB6 #### [facility] CLIA [id number] [address] [place] [address] MCV (RBC) [Entitic vol] 81.2 fL Normal 80.0-100.0 [facility] Comment on above: Order Comment: Speci men Type: BLOOD SPECIMEN Ordering Facility: [facility] Address: [address] [place] [address] Performed By: #### V ITB6 #### [facility] CLIA [id number] [address] [place] [address] Monocytes (Bld) [#/Vol] 1.61 10*3/uL High <0.87 [facility] Comment on above: Order Comment: Speci men Type: BLOOD SPECIMEN Ordering Facility: [facility] Address: [address] [place] [address] Performed By: #### V ITB6 #### [facility] CLIA [id number] [address] [place] [address] Monocytes/100 WBC (Bld) 9.0 % Normal [facility] Comment on above: Order Comment: Speci men Type: BLOOD SPECIMEN Ordering Facility: [facility] Address: [address] [place] [address] Performed By: #### V ITB6 #### [facility] CLIA [id number] [address] [place] [address] Neutrophils (Bld) [#/Vol] 15.29 10*3/uL High 1.45-7.50 [facility] Comment on above: Order Comment: Speci men Type: BLOOD SPECIMEN Ordering Facility: [facility] Address: [address] [place] [address] Performed By: #### V ITB6 #### [facility] CLIA [id number] [address] [place] [address] Neutrophils/100 WBC (Bld) 85.2 % Normal [facility] Comment on above: Order Comment: Speci men Type: BLOOD SPECIMEN Ordering Facility: [facility] Address: [address] [place] [address] Performed By: #### V ITB6 #### [facility] CLIA [id number] [address] [place] [address] Nucleated RBC (Bld) [#/Vol] 10*3/uL Normal <0.01 [facility] Comment on above: Order Comment: Speci men Type: BLOOD SPECIMEN Ordering Facility: [facility] Address: [address] [place] [address] Performed By: #### V ITB6 #### [facility] CLIA [id number] [address] [place] [address] Nucleated RBC/100 WBC (Bld) [Ratio] 0.0 /100 WBC Normal [facility] Comment on above: Order Comment: Speci men Type: BLOOD SPECIMEN Ordering Facility: [facility] Address: [facility] [place] [address] Performed By: #### V ITB6 #### [facility] CLIA [id number] [address] [place] [address] Platelet mean volume (Bld) [Entitic vol] 10.8 fL Normal 9.0-12.7 [facility] Comment on above: Order Comment: Speci men Type: BLOOD SPECIMEN Ordering Facility: [facility] Address: [address] [place] [address] Performed By: #### V ITB6 #### [facility] CLIA [id number] [address] [place] [address] Platelets (Bld) [#/Vol] 164 10*3/uL Normal 150-400 [facility] Comment on above: Order Comment: Speci men Type: BLOOD SPECIMEN Ordering Facility: [facility] Address: [address] [place] [address] Performed By: #### V ITB6 #### [id number] [address] [place] [address] RBC (Bld) [#/Vol] 5.58 10*6/uL Normal 4.20-6.00 [facility] Comment on above: Order Comment: Speci men Type: BLOOD SPECIMEN Ordering Facility: [facility] Address: [address] [place] [address] Performed By: #### V ITB6 #### [id number] [address] [place] [address] WBC (Bld) [#/Vol] 17.95 10*3/uL High 3.70-11.00 [facility] Comment on above: Order Comment: Speci men Type: BLOOD SPECIMEN Ordering Facility: [facility] Address: [address] [place] [address] Performed By: #### V ITB6 #### [facility] CLIA [id number] [address] [place] [address] CT ABD/PEL W IVCONon 023 CT ABD/PEL W IVCON * * *Final Report* * * DATE OF EXAM: Aug 31 2022 7:24PM [facility] 0530 - CT ABD/PEL W IVCON / [...] Tissues: No significant finding. Lower thorax: Unremarkable. Duplicating Machine Servicer (topogram) images: No additional findings. IMPRESSION: ACUTE EDEMATOUS PANCREATITIS. NO FLUID COLLECTIONS. Government Affairs Specialist: PSCZay Transcribe Date/Time: Aug 31 2022 7:29P Dictated by : RADHA FRANCO MD This examination was interpreted and the report reviewed and electronically signed by: LAQUITA NUÑEZ MD on Aug 31 2022 8:01PM EST [id number] Normal [facility] Comprehensive metabolic 2000 panelon 08-31-2022 Albumin [Mass/Vol] 5.0 g/dL High 3.9-4.9 [facility] Comment on above: Order Comment: Speci men Type: BLOOD SPECIMENOrdering Facility: [facility] Address: [address] [place] [address] Performed By: #### 2 4323-8, 70766-4, 3040-3, 10157-5, 58114-6 ####[facility] [id number] [place] [address] [place] ALP [Catalytic activity/Vol] 64 U/L Normal 38-113 [facility] Comment on above: Order Comment: Speci men Type: BLOOD SPECIMENOrdering Facility: [facility] Address: [address] [place] [address] Performed By: #### 2 4323-8, 55832-2, 3040-3, 37680-6, 30311-5 ####[facility] [id number] [place] [address] [place] ALT [Catalytic activity/Vol] 21 U/L Normal 10-54 [facility] Comment on above: Order Comment: Speci men Type: BLOOD SPECIMENOrdering Facility: [facility] Address: [address] [place] [address] Performed By: #### 2 4323-8, 12567-8, 3040-3, 73333-7, 40187-7 ####[facility] [id number] [place] [id number] [place] Anion gap [Moles/Vol] 21 mmol/L High 9-18 [facility] Comment on above: Order Comment: Speci men Type: BLOOD SPECIMENOrdering Facility: [facility] Address: [address] [place] [address] Performed By: #### 2 4323-8, 29380-6, 3040-3, 51525-2, 50966-1 ####[facility] [id number] [place] [address] [place] AST [Catalytic activity/Vol] 31 U/L Normal 14-40 [facility] Comment on above: Order Comment: Speci men Type: BLOOD SPECIMENOrdering Facility: [facility] Address: [address] [place] [address] Performed By: #### 2 4323-8, 03500-3, 3040-3, 96621-2, 59310-1 ####[facility] [id number] [place] [address] [place] Bilirubin [Mass/Vol] 4.1 mg/dL High 0.2-1.3 [facility] Comment on above: Order Comment: Speci men Type: BLOOD SPECIMENOrdering Facility: [facility] Address: [address] [place] [address] Performed By: #### 2 4323-8, 27548-3, 3040-3, 12621-3, 61969-8 ####[facility] [id number] [place] [id number] [place] Calcium [Mass/Vol] 10.1 mg/dL Normal 8.5-10.2 [facility] Comment on above: Order Comment: Speci men Type: BLOOD SPECIMENOrdering Facility: [facility] Address: [address] [place] [address] Performed By: #### 2 4323-8, 09021-9, 3040-3, 80711-1, 21335-1 ####[facility] [id number] [address] [address] [place] Chloride [Moles/Vol] 95 mmol/L Low 97-105 [facility] Comment on above: Order Comment: Speci men Type: BLOOD SPECIMENOrdering Facility: [facility] Address: [address] [place] [address] Performed By: #### 2 4323-8, 23131-6, 3040-3, 48915-0, 67172-0 ####[facility] [id number] [place] [id number] [place] CO2 [Moles/Vol] 21 mmol/L Low 22-30 [facility] Comment on above: Order Comment: Speci men Type: BLOOD SPECIMENOrdering Facility: [facility] Address: [address] [place] [address] Performed By: #### 2 4323-8, 17212-2, 3040-3, 21075-2, 16633-2 ####[facility] [id number] [place] [address] [place] Creatinine [Mass/Vol] 1.66 mg/dL High 0.73-1.22 [facility] Comment on above: Order Comment: Speci men Type: BLOOD SPECIMENOrdering Facility: [facility] Address: [address] [place] [address] Performed By: #### 2 4323-8, 58796-0, 3040-3, 48310-4, 00426-4 ####[facility] [id number] [place] [id number] [place] ESTIMATED GLOMERULAR FILTRATION RATE 54 mL/min/1.73m??? Low >=60 [facility] Comment on above: Order Comment: Speci men Type: BLOOD SPECIMENOrdering Facility: [facility] Address: [address] [place] [address] Result Comment: Brenda mated Glomerular Filtration Rate [...] actual GFR. Performed By: #### 2 4323-8, 45626-1, 3040-3, 32387-9, 97478-2 ####[facility] [id number] [address] [address] [place] Glucose [Mass/Vol] 129 mg/dL High 74-99 [facility] Comment on above: Order Comment: Speci men Type: BLOOD SPECIMENOrdering Facility: [facility] Address: [address] [place] [place] [phone] Result Comment: The [place] [employer] (ADA) provides guidance for cutoff [...] Standards of Medical Care in Diabetes 2016, [place] [employer]. Diabetes Care. 2016.39(Suppl 1). Performed By: #### 2 4323-8, 03929-1, 0-3, 63868-1, 54303-7 ####[facility] [id number] [place] [id number] [place] Potassium [Moles/Vol] 4.0 mmol/L Normal 3.7-5.1 [facility] Comment on above: Order Comment: Louiei men Type: BLOOD SPECIMENOrdering Facility: [facility] Address: [address] [place] [address] Performed By: #### 2 3-8, 21480-8, 3040-3, 78017-4, 29226-6 ####[facility] [id number] [address] [address] [place] Protein [Mass/Vol] 7.7 g/dL Normal 6.3-8.0 [facility] Comment on above: Order Comment: Speci men Type: BLOOD SPECIMENOrdering Facility: [facility] Address: [address] [place] [address] Performed By: #### 2 4323-8, 27850-3, 3040-3, 68817-2, 70562-2 ####[facility] [id number] [place] [id number] [place] Sodium [Moles/Vol] 137 mmol/L Normal 136-144 [facility] Comment on above: Order Comment: Speci men Type: BLOOD SPECIMENOrdering Facility: [facility] Address: [address] [place] [address] Performed By: #### 2 4323-8, 13545-1, 3040-3, 38761-8, 69040-7 ####[facility] [id number] [place] [id number] [place] Urea nitrogen [Mass/Vol] 18 mg/dL Normal 9-24 [facility] Comment on above: Order Comment: Speci men Type: BLOOD SPECIMENOrdering Facility: [facility] Address: [address] [place], [place] [phone] Performed By: #### 2 4323-8, 67247-4, 3040-3, 25225-8, 44949-6 ####[facility] [id number] [address] [address] [place] ED NOTEon 08-31-2022 ED NOTE HNO ID: [id number] Author: Lorena Unger RN Service: Emergency Medicine [...] three days either due to vomiting. Normal [facility] ED NOTE HNO ID: [id number] Author: Reyes Schaefer RN Service: Emergency Medicine Author Type: Registered Nurse Type: ED Notes Filed: 08/31/2022 7:10 PM Note Text: Report given to BATOOL Rebollar Normal [facility] ED NOTE HNO ID: [id number] Author: Reyes Schaefer RN Service: Emergency Medicine [...] sating 100% RA. Pt hypertensive 200/96. Normal [facility] ED PROV NOTEon 08-31-2022 ED PROV NOTE HNO ID: [id number] Author: Ranjit Dawson MD Service: Emergency Medicine [...] components with (more content not included)... Normal [facility] Lipase SerPl-cCncon 08-31-19 23 Lipase [Catalytic activity/Vol] 894 U/L High 16-61 [facility] Comment on above: Order Comment: Speci men Type: BLOOD SPECIMEN Ordering Facility: [facility] Address: [address] [place] [phone] Performed By: #### 5 763-8, COPPER #### [facility] CLIA [id number] [address] [place] [address] [place] Magnesium SerPl-mCncon 08-31 Magnesium [Mass/Vol] 1.6 mg/dL Low 1.7-2.3 [facility] Comment on above: Order Comment: Speci men Type: BLOOD SPECIMENOrdering Facility: [facility] Address: [address] [place] [address] Performed By: #### 2 4323-8, 45220-6, 3040-3, 66058-7, 82503-9 ####[facility] [id number] [place] [address] [place] PT panel Coag (PPP)on 2022 INR Coag (PPP) [Relative time] 1.2 {INR} Normal 0.9-1.3 [facility] Comment on above: Order Comment: Speci men Type: BLOOD SPECIMEN Ordering Facility: [facility] Address: [address] [place] [address] Result Comment: Aster min K Antagonist (VKA) Therapeutic Range: INR 2 to 3 (Target INR of 2.5) Note: For patients treated with VKA drugs, such as warfarin, the [place] [employer] 2012 Guideline recommends [...] JACC 2017, 70: 252-289 Performed By: #### 5 0189-0, 13225-1, 9 #### [facility] CLIA [id number] [address] [place] [address] [place] PT Coag (PPP) [Time] 12.7 s Normal 9.7-13.0 [facility] Comment on above: Order Comment: Speci men Type: BLOOD SPECIMEN Order[facility]: [facility] Address: [address] [place] [address] Performed By: #### 5 0189-0, 84125-7, 9 #### [facility] CLIA [id number] [address] [place] [address] [place] [facility]-2022 Procalcitonin [Mass/Vol] ng/mL Normal <0.09 [facility] Comment on above: Order Comment: Speci men Type: BLOOD SPECIMEN Order[facility] Facility: [facility] Address: [address] [place] [address] Result Comment: For a guided interpretation of test results, please visit the Change in Procalcitonin Calculator, [email or web address]. Performed By: #### 5 763-8, COPPER #### [facility] CLIA [id number] [address] [place] [address] [place] SARS-CoV-2 RNA Resp Ql NOLBERTO+p robeon 08-31-2022 SARS-CoV-2 (COVID-19) RNA NOLBERTO+probe Ql (Resp) COVID 19 RESULT: Not detected The method used is RT-PCR or an equivalent NAAT method. Reference Range(the expected result in uninfected individuals): Not detected Normal [facility] Comment on above: Performed By: #### 2 4323-8 #### [facility] CLIA [id number] [facility] [place] [address] [place] Tacrolimus Bld-mCncon 2022 Tacrolimus (Bld) [Mass/Vol] 7.5 ng/mL Normal 5.0-20.0 [facility] [facility] Comment on above: Order Comment: [place]e [place] Type: BLOOD SPECIMEN [facility]ing Facility: [facility] Address: [address] [place], [place] [address] Result Comment: Thes e reference ranges are [...] Test performed by chemiluminescent immunoassay using Schuler Junior Qa Analyst. Performed By: #### V ITB6 #### [facility] CLIA [id number] [address] [place] [address] Tacrolimus (Bld) [Mass/Vol] 7.3 ng/mL Normal 5.0-20.0 [facility] Comment on above: Order Comment: [place]e [place] Type: BLOOD SPECIMEN Ordering Facility: [facility] Address: [address] [place], [place] [address] Result Comment: Thes e reference ranges are [...] Test performed by chemiluminescent immunoassay using Schuler Junior Qa Analyst. Performed By: #### 2 4323-8 #### [facility] CLIA [id number] [address] [place] [address] [place] CBC W Auto Differential pane l (Bld)on 07-07-2022 Basophils (Bld) [#/Vol] 10*3/uL Normal <0.11 [facility] Comment on above: Order Comment: [place]e [place] Type: BLOOD SPECIMEN Ordering Facility: [facility] Address: [address] Performed By: #### 5 0189-0, , 2132-03 #### [facility] CLIA [id number] [address] [place] [address] [place] Basophils/100 WBC (Bld) 0.2 % Normal [facility] Comment on above: Order Comment: Speci men Type: BLOOD SPECIMEN Ordering Facility: [facility] Address: [address] [place], [place] [address] Performed By: #### 5 0189-0, , 2132-03 #### [facility] CLIA [id number] [address] [place] [address] [place] Differential cell count method Nom (Bld) Auto Normal [facility] Comment on above: Order Comment: Speci men Type: BLOOD SPECIMEN Ordering Facility: [facility] Address: [address] [place], [place] [address] Performed By: #### 5 0189-0, , 2132-03 #### [facility] CLIA [id number] [address] [place] [address] [place] Eosinophils (Bld) [#/Vol] 0.10 10*3/uL Normal <0.46 [facility] Comment on above: Order Comment: Speci men Type: BLOOD SPECIMEN Ordering Facility: [facility] Address: [address] [place] [address] Performed By: #### 5 0189-0, , 2132-03 #### [facility] CLIA [id number] [address] [place] [address] [place] Eosinophils/100 WBC (Bld) 2.0 % Normal [facility] Comment on above: Order Comment: Speci men Type: BLOOD SPECIMEN Ordering Facility: [facility] Address: [address] [place], [place] [address] Performed By: #### 5 0189-0, , 2132-03 #### [facility] CLIA [id number] [address] [place] [address] [place] Erythrocyte distribution width (RBC) [Ratio] 12.9 % Normal 11.5-15.0 [facility] Comment on above: Order Comment: Speci men Type: BLOOD SPECIMEN Ordering Facility: [facility] Address: [address] [place], [place] [address] Performed By: #### 5 0189-0, , 2132-03 #### [facility] CLIA [id number] [address] [place] [address] [place] Hematocrit (Bld) [Volume fraction] 39.1 % Normal 39.0-51.0 [facility] Comment on above: Order Comment: Speci men Type: BLOOD SPECIMEN Ordering Facility: [facility] Address: [address] [place], [place] [address] Performed By: #### 5 0189-0, , 2132-03 #### [facility] CLIA [id number] [address] [place] [address] [place] Hemoglobin (Bld) [Mass/Vol] 13.3 g/dL Normal 13.0-17.0 [facility] Comment on above: Order Comment: Speci men Type: BLOOD SPECIMEN Ordering Facility: [facility] Address: [address] [place], [place] [address] Performed By: #### 5 0189-0, , 2132-03 #### [facility] CLIA [id number] [address] [place] [address] [place] Immature granulocytes (Bld) [#/Vol] 0.03 10*3/uL Normal <0.10 [facility] Comment on above: Order Comment: Speci men Type: BLOOD SPECIMEN Ordering Facility: [facility] Address: [address] [place] [address] Performed By: #### 5 0189-0, , 2132-03 #### [facility] CLIA [id number] [address] [place] [address] [place] Immature granulocytes/100 WBC (Bld) 0.6 % Normal [facility] Comment on above: Order Comment: Speci men Type: BLOOD SPECIMEN Ordering Facility: [facility] Address: [address] [place], [place] [address] Performed By: #### 5 0189-0, , 2132-03 #### [facility] CLIA [id number] [address] [place] [address] [place] Lymphocytes (Bld) [#/Vol] 0.36 10*3/uL Low 1.00-4.00 [facility] Comment on above: Order Comment: Speci men Type: BLOOD SPECIMEN Ordering Facility: [facility] Address: [address] [place] [address] Performed By: #### 5 0189-0, , 2132-03 #### [facility] CLIA [id number] [address] [place] [address] [place] Lymphocytes/100 WBC (Bld) 7.3 % Normal [facility] Comment on above: Order Comment: Speci men Type: BLOOD SPECIMEN Ordering Facility: [facility] Address: [address] [place], [place] [address] Performed By: #### 5 0189-0, , 2132-03 #### [facility] CLIA [id number] [address] [place] [address] [place] MCH (RBC) [Entitic mass] 31.1 pg Normal 26.0-34.0 [facility] Comment on above: Order Comment: Speci men Type: BLOOD SPECIMEN Ordering Facility: [facility] Address: [address] [place], [place] [address] Performed By: #### 5 0189-0, 81313-72132-03 #### [facility] CLIA [id number] [address] [place] [id number] [place] MCHC (RBC) [Mass/Vol] 34.0 g/dL Normal 30.5-36.0 [facility] Comment on above: Order Comment: Speci men Type: BLOOD SPECIMEN Ordering Facility: [facility] Address: [address] [place] [address] Performed By: #### 5 0189-0, , 2132-03 #### [facility] CLIA [id number] [address] [place] [address] [place] MCV (RBC) [Entitic vol] 91.6 fL Normal 80.0-100.0 [facility] Comment on above: Order Comment: Speci men Type: BLOOD SPECIMEN Ordering [facility]: [facility] Address: [address] [place], [place] [address] Performed By: #### 5 0189-0, , 2132-03 #### [facility] CLIA [id number] [address] [place] [address] [place] Monocytes (Bld) [#/Vol] 0.55 10*3/uL Normal <0.87 [facility] Comment on above: Order Comment: Speci men Type: BLOOD SPECIMEN Ordering [facility]: [facility] Address: [address] [place] [address] Performed By: #### 5 0189-0, , 2132-03 #### [facility] CLIA [id number] [address] [place] [address] [place] Monocytes/100 WBC (Bld) 11.1 % Normal [facility] Comment on above: Order Comment: Speci men Type: BLOOD SPECIMEN Ordering Facility: [facility] Address: [address] [place] [address] Performed By: #### 5 0189-0, , 2132-03 #### [facility] CLIA [id number] [address] [place] [id number] [place] Neutrophils (Bld) [#/Vol] 3.89 10*3/uL Normal 1.45-7.50 [facility] Comment on above: Order Comment: Speci men Type: BLOOD SPECIMEN Order[facility] Address: [address] [place], [place] [address] Performed By: #### 5 0189-0, , 2132-03 #### [facility] CLIA [id number] [address] [place] [address] [place] Neutrophils/100 WBC (Bld) 78.8 % Normal [facility] Comment on above: Order Comment: Speci men Type: BLOOD SPECIMEN Ordering [facility]: [facility] Address: [address] [place], [place] [address] Performed By: #### 5 0189-0, , 2132-03 #### [facility] CLIA [id number] [address] [place] [address] [place] Nucleated RBC (Bld) [#/Vol] 10*3/uL Normal <0.01 [facility] Comment on above: Order Comment: Speci men Type: BLOOD SPECIMEN Order[facility] Address: [address] [place], [place] [address] Performed By: #### 5 0189-0, , 2132-03 #### [facility] CLIA [id number] [address] [place] [address] [place] Nucleated RBC/100 WBC (Bld) [Ratio] 0.0 /100 WBC Normal [facility] Comment on above: Order Comment: Speci men Type: BLOOD SPECIMEN Ordering [facility]: [facility] Address: [address] [place] [address] Performed By: #### 5 0189-0, , 2132-03 #### [facility] CLIA [id number] [address] [place] [address] [place] Platelet mean volume (Bld) [Entitic vol] 12.4 fL Normal 9.0-12.7 [facility] Comment on above: Order Comment: Speci men Type: BLOOD SPECIMEN Ordering Facility: [facility] Address: [address] [place], [place] [address] Performed By: #### 5 0189-0, , 2132-03 #### [facility] CLIA [id number] [address] [place] [address] [place] Platelets (Bld) [#/Vol] 76 10*3/uL Low 150-400 [facility] Comment on above: Order Comment: Speci men Type: BLOOD SPECIMEN Ordering Facility: [facility] Address: [address] [place] [address] Result Comment: Resu lts checked and verified.No clot detected. Performed By: #### 5 0189-0, , 2132-03 #### [facility] CLIA [id number] [address] [place] [address] [place] RBC (Bld) [#/Vol] 4.27 10*6/uL Normal 4.20-6.00 [facility] Comment on above: Order Comment: Speci men Type: BLOOD SPECIMEN Order[facility] Address: [address] [place], [place] [address] Performed By: #### 5 0189-0, , 2132-03 #### [facility] CLIA [id number] [address] [place] [address] [place] WBC (Bld) [#/Vol] 4.94 10*3/uL Normal 3.70-11.00 [facility] Comment on above: Order Comment: Speci men Type: BLOOD SPECIMEN Order[facility] Address: [address] [place], [place] [address] Performed By: #### 5 0189-0, 44605-6, 2-9 #### [facility] CLIA [id number] [address] [place] [address] [place] Comprehensive metabolic 2000 panelon 07-07-2022 Albumin [Mass/Vol] 4.6 g/dL Normal 3.9-4.9 [facility] Comment on above: Order Comment: Speci men Type: BLOOD SPECIMENOrdering Facility: [facility] Address: [address] [place] [address] Performed By: #### 2 4323-8, 2324-2, 73357-3 ####[facility] [id number] [place] [address] [place]#### 95013-3 ####[facility] [id number] [address] LABORATORYCLIA [id number] [place] [address] [place] ALP [Catalytic activity/Vol] 59 U/L Normal 38-113 [facility] Comment on above: Order Comment: Speci men Type: BLOOD SPECIMENOrdering Facility: [facility] Address: [address] [place] [address] Performed By: #### 2 4323-8, 4-2, 63376-7 ####[facility] [id number] [address] [place]#### [address]-1 ####[facility] [id number] [address] [place] LABORATORYCLIA [id number] [place] [address] [place] ALT [Catalytic activity/Vol] 46 U/L Normal 10-54 [facility] Comment on above: Order Comment: Speci men Type: BLOOD SPECIMENOrdering Facility: [facility] Address: [address] [place] [address] Performed By: #### 2 4323-8, 4-2, ####[facility] [id number] [place] [address] [place]#### 76273-2 ####[facility] [id number] [place] [address] [facility] [place] LABORATORYCLIA [id number] [place] [address] [place] Anion gap [Moles/Vol] 13 mmol/L Normal 9-18 [facility] Comment on above: Order Comment: Speci men Type: BLOOD SPECIMENOrdering Facility: [facility] Address: [address] [place] [id number] Performed By: #### 2 4323-8, 2323-2, ####[facility] [id number] [place] [address] [place]#### 92040-1 ####[facility] [id number] [address] STATES [facility] LABORATORYCLIA [id number] [place] [address] [place] AST [Catalytic activity/Vol] 30 U/L Normal 14-40 [facility] Comment on above: Order Comment: Speci men Type: BLOOD SPECIMENOrdering Facility: [facility] Address: [address] [place] [address] Performed By: #### 2 4323-8, 2323-2, ####[facility]IA [id number] [place] [address] [place]#### 24192-6 ####[facility]IA [id number] [place] [address] [place] [facility] [place] LABORATORYCLIA [id number] [place] [address] [place] Bilirubin [Mass/Vol] 0.9 mg/dL Normal 0.2-1.3 [facility] Comment on above: Order Comment: Speci men Type: BLOOD SPECIMENOrdering Facility: [facility] Address: [address] [place] [address] Performed By: #### 2 4323-8, 2323-08, ####[facility]IA [id number] [place] [address] [place]#### 23377-0 ####[facility] [id number] [address] LABORATORYCLIA [id number] [place] [address] [place] Calcium [Mass/Vol] 9.7 mg/dL Normal 8.5-10.2 [facility] Comment on above: Order Comment: Speci men Type: BLOOD SPECIMENOrdering Facility: [facility] Address: [address] [place] [address] Performed By: #### 2 4322-8, 2323-08, ####[facility]IA [id number] [place] [address] [place]#### 21942-3 ####[facility] LABCLIA [id number] [place] [address] [place] [facility] [place] LABORATORYCLIA [id number] [place] [address] [place] Chloride [Moles/Vol] 104 mmol/L Normal 97-105 [facility] Comment on above: Order Comment: Speci men Type: BLOOD SPECIMENOrdering Facility: [facility] Address: [address] Performed By: #### 2 4323-8, 2323-08, ####[facility] LABCLIA [id number] [place] [address] [place]#### 68547-2 ####[facility] LABCLIA [id number] [employer] [address] [address] [place] [facility] LABORATORYCLIA [id number] [place] [address] [place] CO2 [Moles/Vol] 24 mmol/L Normal 22-30 [facility] Comment on above: Order Comment: Speci men Type: BLOOD SPECIMENOrdering Facility: [facility] Address: [address] [place] [address] Performed By: #### 2 3-8, 2323-08, ####[facility] LABCLIA [id number] [place] [address] [place]#### 96601-5 ####[facility] LABCLIA [id number] [place] [address] [place] [facility] LABORATORYCLIA [id number] [place] [address] [place] Creatinine [Mass/Vol] 1.14 mg/dL Normal 0.73-1.22 [facility] Comment on above: Order Comment: Speci men Type: BLOOD SPECIMENOrdering Facility: [facility] Address: [address] [place] [phone] Performed By: #### 2 4323-8, 2323-08, ####[facility] LABCLIA [id number] [place] [address] [place]#### 17036-7 ####[facility] LABCLIA [id number] [address] [address] [place] [facility] [place] LABORATORYCLIA [id number] [address] ESTIMATED GLOMERULAR FILTRATION RATE 85 mL/min/1.73m??? Normal >=60 [facility] Comment on above: Order Comment: [place]e [place] Type: BLOOD SPECIMENOrdering Facility: [facility] Address: [address] [place] [place] [phone] Result Comment: Brenda mated Glomerular Filtration Rate [...] actual GFR. Performed By: #### 2 4323-8, 2324-2, 34218-4 ####[facility]IA [id number] [address]#### [address]-9 ####[facility] LABCLIA [id number] [address] STATES OF [facility] LABORATORYCLIA [id number] [place] [address] [place] [facility] Glucose [Mass/Vol] 109 mg/dL High 74-99 [facility] Comment on above: Order Comment: [place]e [place] Type: BLOOD SPECIMENOrdering Facility: [facility] Address: [address] [place], [place] [address] Result Comment: The [place] Diabetes Association (ADA) provides guidance for cutoff [...] Standards of Medical Care in Diabetes 2016, [place] [employer]. Diabetes Care. 2016.39(Suppl 1). Performed By: #### 2 4323-8, 2323-2, ####[facility] LABCLIA [id number] [place] [address] [place]#### 41585-1 ####[facility] LABCLIA [id number] [address] [address] [facility] LABORATORYCLIA [id number] [place] [address] [place] Potassium [Moles/Vol] 4.3 mmol/L Normal 3.7-5.1 [facility] Comment on above: Order Comment: Speci men Type: BLOOD SPECIMENOrdering Facility: [facility] Address: [address] [place] [phone] Performed By: #### 2 4323-8, 2323-08, ####[facility] LABCLIA [id number] [place] [address] [place]#### 58187-6 ####[facility] LABCLIA [id number] [place] [address] [place] [facility] LABORATORYCLIA [id number] [place] [address] [place] Protein [Mass/Vol] 7.6 g/dL Normal 6.3-8.0 [facility] Comment on above: Order Comment: Speci men Type: BLOOD SPECIMENOrdering Facility: [facility] Address: [address] [place] [address] Performed By: #### 2 4323-8, 2323-2, ####[facility] LABCLIA [id number] [place] [address] [place]#### 09724-3 ####[facility] LABCLIA [id number] [address] [address] [place] [facility] LABORATORYCLIA [id number] [place] [address] [place] Sodium [Moles/Vol] 141 mmol/L Normal 136-144 [facility] Comment on above: Order Comment: Speci men Type: BLOOD SPECIMENOrdering Facility: [facility] Address: [address] [place] [address] Performed By: #### 2 4323-8, 2323-2, ####[facility] LABCLIA [id number] [place] [address] [place]#### 17025-5 ####[facility] LABCLIA [id number] [address] STATES OF [facility] LABORATORYCLIA [id number] [place] [address] [place] Urea nitrogen [Mass/Vol] 21 mg/dL Normal 9-24 [facility] Comment on above: Order Comment: Speci men Type: BLOOD SPECIMENOrdering Facility: [facility] Address: [address] Performed By: #### 2 4323-8, 2323-2, ####[facility] LABCLIA [id number] [place] [address] [place]#### 63765-1 ####[facility] LABCLIA [id number] [place] [address] [place] [facility] LABORATORYCLIA [id number] [place] [address] [place] GGT SerPl-cCncon 07-07-2022 Gamma glutamyl transferase [Catalytic activity/Vol] 54 U/L Normal 10-70 [facility] Comment on above: Order Comment: Speci men Type: BLOOD SPECIMENOrdering Facility: [facility] Address: [address] Performed By: #### 2 4323-8, 4-2, ####[facility] LABCLIA [id number] [place] [address] [place]#### 09108-2 ####[facility] LABCLIA [id number] [address] STATES OF [facility]DR[facility] LABORATORYCLIA [id number] [place] [address] [place] Lipid 1996 panelon 2 Cholesterol [Mass/Vol] 180 mg/dL Normal <200 [facility] Comment on above: Order Comment: Speci men Type: BLOOD SPECIMENOrdering Facility: [facility] Address: [address] [place], [place] [address] Result Comment: <200 mg/dL, Desirable 200-239 mg/dL, Borderline high >239 mg/dL, High Performed By: #### 2 4323-8, 2323-2, ####[facility] LABCLIA [id number] [place] [address] [place]#### 87800-9 ####[facility] LABCLIA [id number] [address] STATES OF [facility]AK[facility]DR[facility] LABORATORYCLIA [id number] [place] [address] [place] Cholesterol in HDL [Mass/Vol] 36 mg/dL Low >39 [facility] Comment on above: Order Comment: Speci men Type: BLOOD SPECIMENOrdering Facility: [facility] Address: [address] [place] [address] Result Comment: 40-5 9 mg/dL, Acceptable >59 mg/dL, High: Negative risk factor for coronary heart disease <40 mg/dL, Low: Positive risk factor for coronary heart disease Performed By: #### 2 4323-8, 4-2, ####[facility] LABCLIA [id number] [address]#### [address]-3 ####[facility] LABCLIA [id number] [address] LABORATORYCLIA [id number] [address] Cholesterol in LDL [Mass/Vol] 106 mg/dL High <100 [facility] Comment on above: Order Comment: Speci men Type: BLOOD SPECIMENOrdering Facility: [facility] Address: [address] [place] [address] Result Comment: <100 mg/dL, Optimal 100-129 mg/dL, Near optimal/above optimal 130-159 mg/dL, Borderline high 160-189 mg/dL, High >189 mg/dL, Very high Secondary prevention optimal LDL Cholesterol levels are recommended to be < 70 mg/dL Performed By: #### 2 4323-8, 2324-2, 40375-6 ####[facility] LABCLIA [id number] [address]#### [address]-0 ####[facility]CLIA [id number] [address] LABORATORYCLIA [id number] [address] Cholesterol in LDL/Cholesterol in HDL [Mass ratio] 2.94 {ratio} High <2.54 [facility] Comment on above: Order Comment: Speci men Type: BLOOD SPECIMENOrdering Facility: [facility] Address: [address] [place] [address] Result Comment: Li green: 1. National Cholesterol Education Program ATP III Guideline At-A-Glance Quick Desk Reference: National Heart, Lung, and Blood [place]. National Institutes of Health. 2001: NIH Publication No. 01-3305. 2. An International Atherosclerosis Society position paper: global recommendations for the management of dyslipidemia: executive summary, Atherosclerosis. 2014: 232(2):410-413. Performed By: #### 2 3-8, 2, ####[facility] LABCLIA [id number] [place] [address] [place]#### 56535-1 ####[facility] LABCLIA [id number] [employer] [address] [address] [facility] [place] LABORATORYCLIA [id number] [place] [address] [place] Cholesterol in VLDL [Mass/Vol] 38 mg/dL High <30 [facility] Comment on above: Order Comment: Speci men Type: BLOOD SPECIMENOrdering Facility: [facility] Address: [address] [place] [address] Performed By: #### 2 432-8, 2323-08, ####[facility] LABCLIA [id number] [place] [address] [place]#### 57916-3 ####[facility]CLIA [id number] [address] LABORATORYCLIA [id number] [place] [address] [place] Cholesterol non HDL [Mass/Vol] 144 mg/dL High <130 [facility] Comment on above: Order Comment: Speci men Type: BLOOD SPECIMENOrdering Facility: [facility] Address: [address] [place] [address] Result Comment: <130 mg/dL, Optimal 130-159 mg/dL, Near optimal/above optimal 160-189 mg/dL, Borderline high 190-219 mg/dL, High >219 mg/dL, Very high Secondary prevention optimal non HDL Cholesterol levels are recommended to be <100 mg/dL Performed By: #### 2 3-8, 2, ####[facility] [facility] [id number] [address] [place]#### [address]-6 ####[facility] LABCLIA [id number] [address] [address] [facility] LABORATORYCLIA [id number] [place] [address] [place] Cholesterol.total/Chol esterol in HDL [Mass ratio] 5.00 {ratio} Normal <5.10 [facility] Comment on above: Order Comment: Speci men Type: BLOOD SPECIMENOrdering Facility: [facility] Address: [address] [place] [address] Performed By: #### 2 4323-8, 2323-2, ####[facility] LABCLIA [id number] [place] [address] [place]#### [address]-6 ####[facility] LABCLIA [id number] [address] LABORATORYCLIA [id number] [place] [address] [place] FASTING TIME 1 hrs Normal [facility] Comment on above: Order Comment: Speci men Type: BLOOD SPECIMENOrdering Facility: [facility] Address: [address] [place] [address] Result Comment: veronica ent had lunch Performed By: #### 2 4323-8, 2323-2, ####[facility] LABCLIA [id number] [place] [id number] [place]#### [address]-0 ####[facility]CLIA [id number] [place] [id number] [facility] LABORATORYIA [id number] [place] [address] [place] Triglyceride [Mass/Vol] 190 mg/dL High <150 [facility] Comment on above: Order Comment: Speci men Type: BLOOD SPECIMENOrdering Facility: [facility] Address: [address] [place] [id number] Result Comment: <150 mg/dL, Normal 150-199 mg/dL, Borderline high 200-499 mg/dL, High >499 mg/dL, Very high Performed By: #### 2 4323-8, 4-2, ####[facility]CLIA [id number] [place] [address] [place]#### [address]-8 ####[facility] LABCLIA [id number] [address] [place] LABORATORYCLIA [id number] [place] [address] [place] Magnesium SerPl-mCncon 07-07 Magnesium [Mass/Vol] 1.7 mg/dL Normal 1.7-2.3 [facility] Comment on above: Order Comment: Speci men Type: BLOOD SPECIMENOrdering Facility: [facility] Address: [address] [place] [address] Performed By: #### 2 4323-8, 2323-08, ####[facility] LABCLIA [id number] [place] [address] [place]#### 81491-6 ####[facility] [id number] [address] LABORATORYCLIA [id number] [place] [address] [place] Phosphate SerPl-mCncon 07-07 Phosphate [Mass/Vol] 3.6 mg/dL Normal 2.7-4.8 [facility] Comment on above: Order Comment: Speci men Type: BLOOD SPECIMENOrdering Facility: [facility] Address: [address] [place], [place] [id number] Performed By: #### 2 777-1 ####[facility] LABCLIA [id number] [place] [id number] [place] Tacrolimus Bld-ncon 2021 Tacrolimus (Bld) [Mass/Vol] 3.0 ng/mL Low 5.0-20.0 [facility] Comment on above: Order Comment: Speci men Type: BLOOD SPECIMEN [facility] Address: [address] [place] [address] Result Comment: Thes e reference ranges are [...] Test performed by chemiluminescent immunoassay using Schuler Junior Qa Analyst. Performed By: #### V ITB6 #### [facility] [employer] CLIA [id number] [address] [place] [address] [facility] 03-24-2022 CNPN Telephone (TXCTMN) CHUCKIE VILLALTA ([id number]) 1985 [facility] Date Time Provider Department 03/24/22 NADJA SPENCER TXCTMN During your visit today, we recorded the following information about you: Nadja Spencer RN 03/24/2022 1:18 PM Signed I sent patient a reminder to have lab work drawn as soon as possible as he has not had labs drawn in some time. Encouraged him to reach out with questions. Nadja Spencer (Cassie) RN, BSN Liver Sewing Machine Adjuster Allergies As of Date: 03/24/2022 Noted Allergy Reaction PENICILLINS 16 - Unknown Comments: Skin test positive 09/01/18 MIDAZOLAM 02/18/2021 14 - Other: See Comments SEASONAL ALLERGIES 06/29/2018 16 - Unknown Date Reviewed: 12/27/2021 Reviewed by: Carlos Muñoz RN - Fully Assessed Reason for Visit: Reminder To Have Labs Drawn [7129] Prescriptions as of 03/24/2022 - iv contrast [...] Encounter Status:Closed by NADJA SPENCER on 03/24/22 [facility] Yousif 02-25-2022 CNOV Office Visit (PSCHL) CHUCKIE VILLALTA ([id number]) 1985 M TRN Date Time Provider Department 02/25/22 9:00 AM ROSEMARIE DURAN During your visit today, we recorded the following information about you: SHAQ Chua 02/25/2022 10:46 AM Signed [facility] Assessment Visit Type:Virtual Visit utilizing two-way audio and video for at least a portion of the visit IDENTIFYING INFORMATION: [phone] [email or web address] Lives with of nine years, Екатерина and [...] consented to virtual evaluation. Patient and this teletypewriter installer present during interview. PRECIPITATING PROBLEM(S):Patient was dx with liver disease in 2017. Completed an IOP at [facility] in summer 2018, and received liver [...] Age 16, every other weekend. Went [place] [employer] [place] [employer] drank heavily on weekends, then turned 21 [...] was intend (more content not included)... Normal [facility] ABDOMEN W IVCONon 022 [facility] Basic Metabolic Panlon 07-12 Anion gap [Moles/Vol] 8 mmol/L Low 9-18 [facility] Calcium [Mass/Vol] 8.6 mg/dL Normal 8.5-10.2 [facility] Chloride [Moles/Vol] 103 mmol/L Normal 97-105 [facility] CO2 [Moles/Vol] 24 mmol/L Normal 22-30 [facility] Creatinine [Mass/Vol] 2.67 mg/dL High 0.73-1.22 [facility] eGFR- Amer. 33 Normal [facility] eGFR-All Other Races 27 . Normal [facility] Comment on above: Result Comment: eGFR (Estimated [...] [email or web address]. Glucose [Mass/Vol] 113 mg/dL High 74-99 [facility] Comment on above: Result Comment: The [place] Diabetes Association (ADA) provides guidance for cutoff [...] Standards of Medical Care in Diabetes 2016, [place] Diabetes Association. Diabetes Care. 2016.39(Suppl 1). Potassium [Moles/Vol] 3.3 mmol/L Low 3.7-5.1 [facility] Sodium [Moles/Vol] 135 mmol/L Low 136-144 [facility] Urea nitrogen [Mass/Vol] 11 mg/dL Normal 9-24 [facility] CASE MANAGEMon 07-12-2021 CASE MANAGEM HNO ID: [id number] Author: Nanette Dangelo RN Service: ? Author [...] 12, 2021 TIME: 4:48 PM PAGER/CONTACT #: [facility] 07-12-2021 [facility] ID: [id number] Author: [place] MD Service: Hospital Medicine [...] GI team who initially recommended ERCP at [facility] but at this time planning to pursue [...] 1.3. He was seen by infectious disease residential solar sales consultant today who recommended adding G6PD to [...] specialist. You were also seen by pain forest management professor while you are in the hospital. I have not added any pain medications due to near complete resolution of symptoms. You were seen by neurologist recently for the patient's symptoms. They will follow up as an outpatient also. Please follow-up with primary MD in 1 week Follow-up with transplant team at the earliest available appointment-testing coordinator has promised to set up an [...] CONSULT TO [facility] NEPHROLOGY (AV,FV,MM) PHYSICIAN CONSULT (AK,DARIANA,EU,FV,HL,KEEGAN,MM,S P) PATIENT CONDITION AT DISCHARGE: Stable ADVANCE [...] identified Vision (more content not included)... Normal [facility] CONSULTon 07-12-2021 CONSULT HNO ID: [id number] Author: Latrell Cabello MD Service: Infectious Disease [...] Smoking status: Nev (more content not included)... [facility] CONSULT PROGon 07-12-2021 CONSULT PROG HNO ID: [id number] Author: Justin Glasgow PA-C Service: Pain Management Author Type: Physician Fishing Rod Mechanic Type: Consult Progress Note Filed: 07/12/2021 4:02 [...] Pain scores overnight between 4-8/10 per Vital Duplicating Machine Servicer. The patient's current inpatient analgesic regimen has [...] DS,SEPTRA DS) 1 tablet ORAL - - [Held on Transfer - Suspended Admission] [...] Garrido, PA-C July 12, 2021 4:01 PM [facility] CONSULT PROG HNO ID: [id number] Author: Spike Gandara MD Service: Nephrology Author Type: Physician Type: Consult Progress Note Filed: 07/12/2021 12:22 PM Note Text: [facility] NEPHROLOGY CONSULT PROGRESS NOTE SERVICE DATE: [...] 0524 CREAT 2.67* 2.77* 2.80* BUN 11 07 08 NA 135* 135* 137 K 3.3* 3.5* [...] DATE: July 12, 2021 12:22 PM PHONE: [phone] FOR AFTER HOUR CONCERNS BETWEEN 7PM - 7AM CONTACT ON-CALL NEPHROLOGY STAFF Normal [facility] Hepatic Functn Panelon 07-12 Albumin [Mass/Vol] 3.0 g/dL Low 3.9-4.9 [facility] ALP [Catalytic activity/Vol] 292 U/L High 38-113 [facility] ALT [Catalytic activity/Vol] 44 U/L Normal 10-54 [facility] AST [Catalytic activity/Vol] 129 U/L High 14-40 [facility] Bilirubin [Mass/Vol] 1.6 mg/dL High 0.2-1.3 [facility] Bilirubin,Conjugated 1.0 mg/dL High <0.2 [facility] Protein [Mass/Vol] 5.7 g/dL Low 6.3-8.0 [facility] NURSING PROGon 07-12-2021 NURSING PROG HNO ID: [id number] Author: Marcela Mcdaniel RN Service: Nursing Author Type: Registered Nurse Type: Nursing Progress Note Filed: 07/12/2021 1:03 AM Note Text: Nursing Progress Note Patient Name: Chuckie Villalta [facility] Daily Note: Report received from BATOOL Nolan. Pt resting comfortably in bed. Will continue to monitor. This note was completed by: Marcela Mcdaniel [facility] Tacrolimus / [id number] Tacrolimus / FK506 7.7 ng/mL Normal 5.0-20.0 [facility] Comment on above: Result Comment: Thes e [...] Test performed by chemiluminescent immunoassay using Schuler Junior Qa Analyst. Performed By: #### F K506 ####[facility] [place], [place] [phone] Amylaseon 07-11-2021 Amylase [Catalytic activity/Vol] 59 U/L Normal 30-104 [facility] Basic Metabolic Panlon 07-11 Anion gap [Moles/Vol] 10 mmol/L Normal 9-18 [facility] Calcium [Mass/Vol] 8.5 mg/dL Normal 8.5-10.2 [facility] Chloride [Moles/Vol] 103 mmol/L Normal 97-105 [facility] CO2 [Moles/Vol] 22 mmol/L Normal 22-30 [facility] Creatinine [Mass/Vol] 2.77 mg/dL High 0.73-1.22 [facility] eGFR- Amer. 32 Normal [facility] eGFR-All Other Races 26 . Normal [facility] Comment on above: Result Comment: eGFR (Estimated [...] [email or web address]. Glucose [Mass/Vol] 122 mg/dL High 74-99 [facility] Comment on above: Result Comment: The [place] Diabetes Association (ADA) provides guidance for cutoff [...] Standards of Medical Care in Diabetes 2016, [place] Diabetes Association. Diabetes Care. 2016.39(Suppl 1). Potassium [Moles/Vol] 3.5 mmol/L Low 3.7-5.1 [facility] Sodium [Moles/Vol] 135 mmol/L Low 136-144 [facility] Urea nitrogen [Mass/Vol] 12 mg/dL Normal 9-24 [facility] CONSULT PROGon 07-11-2021 CONSULT PROG HNO ID: [id number] Author: Spike Gandara MD Service: Nephrology Author Type: Physician Type: Consult Progress Note Filed: 07/11/2021 1:06 PM Note Text: [facility] NEPHROLOGY CONSULT PROGRESS NOTE SERVICE DATE: [...] stenosis, seem by GI, pending transfer to [facility] ? 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 07/08 PM tacro trough rather elevated. Tacro held after 07/08 AM dose given. Resumed at 2 mg [...] DATE: July 11, 2021 1:03 PM PHONE: [phone] FOR AFTER HOUR CONCERNS BETWEEN 7PM - 7AM CONTACT ON-CALL NEPHROLOGY STAFF [facility] CONSULT PROG HNO ID: [id number] Author: Justin Glasgow PA-C Service: Pain Management Author Type: Physician Fishing Rod Mechanic Type: Consult Progress Note Filed: 07/11/2021 11:02 [...] Pain scores overnight between 4-9/10 per Vital Duplicating Machine Servicer. The patient's current inpatient analgesic regimen includes: [...] hypoactive x 4 quadrants. No masses, organomegaly Justin Glasgow [facility], PA-C July 11, 2021 11:02 AM Normal [facility] Amylaseon 07-10-2021 Amylase [Catalytic activity/Vol] 51 U/L Normal 30-104 [facility] Basic Metabolic Panlon 07-10 Anion gap [Moles/Vol] 10 mmol/L Normal 9-18 [facility] Calcium [Mass/Vol] 8.5 mg/dL Normal 8.5-10.2 [facility] Chloride [Moles/Vol] 106 mmol/L High 97-105 [facility] CO2 [Moles/Vol] 21 mmol/L Low 22-30 [facility] Creatinine [Mass/Vol] 2.80 mg/dL High 0.73-1.22 [facility] eGFR- Amer. 31 Normal [facility] eGFR-All Other Races 26 . Normal [facility] Comment on above: Result Comment: eGFR (Estimated [...] [email or web address]_calculator. Glucose [Mass/Vol] 126 mg/dL High 74-99 [facility] Comment on above: Result Comment: The [place] Diabetes Association (ADA) provides guidance for cutoff [...] Standards of Medical Care in Diabetes 2016, [place] Diabetes Association. Diabetes Care. 2016.39(Suppl 1). Potassium [Moles/Vol] 3.5 mmol/L Low 3.7-5.1 [facility] Sodium [Moles/Vol] 137 mmol/L Normal 136-144 [facility] Urea nitrogen [Mass/Vol] 13 mg/dL Normal 9-24 [facility] CONSULT PROGon 07-10-2021 CONSULT PROG HNO ID: [id number] Author: Justin Glasgow PA-C Service: Pain Management Author Type: Physician Fishing Rod Mechanic Type: Consult Progress Note Filed: 07/10/2021 12:38 [...] Pain scores overnight between 4-7/10 per Vital Duplicating Machine Servicer. The patient's current inpatient analgesic regimen includes: [...] Garrido, PA-C July 10, 2021 12:38 PM Normal [facility] CONSULT PROG HNO ID: [id number] Author: Spike Gandara MD Service: Nephrology Author Type: Physician Type: Consult Progress Note Filed: 07/10/2021 11:42 AM Note Text: [facility] NEPHROLOGY CONSULT PROGRESS NOTE SERVICE DATE: [...] stenosis, seem by GI, pending transfer to [facility] ? Hemochromatosis s/p OLT on immunosuppression of [...] SIGNATURE: Spike Ramirez MD PATIENT NAME: Chuckie Villalat DATE: July 10, 2021 11:41 AM PHONE: [phone] FOR AFTER HOUR CONCERNS BETWEEN 7PM - 7AM CONTACT ON-CALL NEPHROLOGY STAFF Normal [facility] Tacrolimus / [id number] 07-10-2 021 Tacrolimus / FK506 9.3 ng/mL Normal 5.0-20.0 [facility] Comment on above: Result Comment: Thes e [...] Test performed by chemiluminescent immunoassay using Schuler Junior Qa Analyst. Performed By: #### F K506 ####[facility] [place], [place] [phone] [facility] 07-09-2021 [facility] HNO ID: [id number] Author: RT Kristyn(R) Service: ? Author Type: [...] RT Kristyn(R) July 08, 2021 11:17 PM Normal [facility] CASE MANAGEMon 07-09-2021 CASE MANAGEM HNO ID: [id number] Author: Nanette Dangelo RN Service: ? Author [...] 2021 TIME: 6:19 PM PAGER/CONTACT #: Normal [facility] CBC and Differentialon 07-09 Abs Baso 0.00 k/uL Normal <0.11 [facility] Abs [place] 1.28 k/uL High <0.87 [facility] Abs Neut 7.42 k/uL Normal 1.45-7.50 [facility] ANC(includeSEG+BAND) 7.42 k/uL Normal [facility] Anisocytosis Ql (Bld) Present Normal [facility] Basophils/100 WBC (Bld) 0.0 % Normal [facility] DTYPE Manual Diff Normal [facility] Eosinophils (Bld) [#/Vol] 0.00 10*3/uL Normal <0.46 [facility] Eosinophils/100 WBC (Bld) 0.0 % Normal [facility] Erythrocyte distribution width (RBC) [Ratio] 15.6 % High 11.5-15.0 [facility] Hematocrit (Bld) [Volume fraction] 26.3 % Low 39.0-51.0 [facility] Hemoglobin (Bld) [Mass/Vol] 9.1 g/dL Low 13.0-17.0 [facility] Left Shift Present Normal [facility] Lymphocytes (Bld) [#/Vol] 0.37 10*3/uL Low 1.00-4.00 [facility] Lymphocytes/100 WBC (Bld) 4.0 % Normal [facility] MCH 35.0 pG High 26.0-34.0 [facility] MCHC (RBC) [Mass/Vol] 34.6 g/dL Normal 30.5-36.0 [facility] MCV (RBC) [Entitic vol] 101.2 fL High 80.0-100.0 [facility] Monocytes/100 WBC (Bld) 14.0 % Normal [facility] Myelo% 1.0 % Normal [facility] Neutrophils/100 WBC (Bld) 81.0 % Normal [facility] Platelet Estimate Platelet estimate decreased Normal [facility] Platelet mean volume (Bld) [Entitic vol] 12.3 fL Normal 9.0-12.7 [facility] Platelets (Bld) [#/Vol] 59 10*3/uL Low 150-400 [facility] Polychromasia Slight Normal [facility] RBC (Bld) [#/Vol] 2.60 10*6/uL Low 4.20-6.00 [facility] WBC (Bld) [#/Vol] 9.16 10*3/uL Normal 3.70-11.00 [facility] CONSULT PROGon 07-09-2021 CONSULT PROG HNO ID: [id number] Author: Justin Glasgow PA-C Service: Pain Management Author Type: Physician Fishing Rod Mechanic Type: Consult Progress Note Filed: 07/09/2021 3:41 [...] Pain scores overnight between 4-8/10 per Vital Duplicating Machine Servicer. The patient's current inpatient analgesic regimen includes: [...] Garrido, PA-C July 09, 2021 3:41 PM [facility] CONSULT PROG HNO ID: [id number] Author: Ana Cotton APRN.HERNANDEZ Service: Gastroenterology Author [...] Pt continues to wait for bed at [facility], pt will likely still be inpatient for few days while monitoring kidney function and tacro levels if does not get a bed still at that time and tolerating diet can likely get scheduled for ERCP at [facility] as outpatient Will continue to monitor peripherally Normal [facility] CONSULT PROG HNO ID: [id number] Author: Spike Gandara MD Service: Nephrology Author Type: Physician Type: Consult Progress Note Filed: 07/09/2021 12:32 PM Note Text: [facility] NEPHROLOGY CONSULT PROGRESS NOTE SERVICE DATE: [...] stenosis, seem by GI, pending transfer to [facility] ? Hemochromatosis s/p OLT on immunosuppression of [...] SIGNATURE: Spike Ramirez MD PATIENT NAME: Chuckie Owensran DATE: July 09, 2021 11:39 AM PHONE: [phone] FOR AFTER HOUR CONCERNS BETWEEN 7PM - 7AM CONTACT ON-CALL NEPHROLOGY STAFF [facility] CONSULT PROG HNO ID: [id number] Author: Valencia Noguera [facility] Service: Pharmacy Author Type: Pharmacist Type: Consult Progress Note Filed: 07/09/2021 7:55 AM Note Text: PHARMACY VANCOMYCIN DOSING NOTE Patient Name: hCuckie Villalta Admission Date: 07/05/2021 Date of Consult: [...] reviewed the above information with the pharmacy intake coordinator/resident or engine test cell technician and agree with the assessment/plan described. Changes or additions to the note are indicated by italics and . Valencia Noguera, Pharmacist 07/09/2021 7:54 AM Ext: [phone] [facility] CONSULT PROG HNO ID: [id number] Author: Lei Mckoy [facility] Service: Pharmacy Author Type: Pharmacist Type: Consult [...] 07/08/20212010 18.6 07/07/20212001 37.3 (H) Lei Mckoy, [facility] Normal [facility] Comp Metabolic Panelon 07-09 Albumin [Mass/Vol] 2.9 g/dL Low 3.9-4.9 [facility] ALP [Catalytic activity/Vol] 63 U/L Normal 38-113 [facility] ALT [Catalytic activity/Vol] 16 U/L Normal 10-54 [facility] Anion gap [Moles/Vol] 8 mmol/L Low 9-18 [facility] AST [Catalytic activity/Vol] 17 U/L Normal 14-40 [facility] Bilirubin [Mass/Vol] 1.0 mg/dL Normal 0.2-1.3 [facility] Calcium [Mass/Vol] 8.0 mg/dL Low 8.5-10.2 [facility] Chloride [Moles/Vol] 109 mmol/L High 97-105 [facility] CO2 [Moles/Vol] 20 mmol/L Low 22-30 [facility] Creatinine [Mass/Vol] 2.83 mg/dL High 0.73-1.22 [facility] eGFR- Amer. 31 Normal [facility] eGFR-All Other Races 26 . Normal [facility] Comment on above: Result Comment: eGFR (Estimated [...] [email or web address]. Glucose [Mass/Vol] 174 mg/dL High 74-99 [facility] Comment on above: Result Comment: The [place] Diabetes Association (ADA) provides guidance for cutoff [...] Standards of Medical Care in Diabetes 2016, [place] Diabetes Association. Diabetes Care. 2016.39(Suppl 1). Potassium [Moles/Vol] 3.8 mmol/L Normal 3.7-5.1 [facility] Protein [Mass/Vol] 5.1 g/dL Low 6.3-8.0 [facility] Sodium [Moles/Vol] 137 mmol/L Normal 136-144 [facility] Urea nitrogen [Mass/Vol] 16 mg/dL Normal 9-24 [facility] MRI BRAIN WO IVCONon 021 MRI BRAIN WO IVCON * * *Final Report* * * DATE OF EXAM: Jul 08 2021 11:28PM [facility] 0294 - MRI BRAIN WO [...] if there is concern for demyelinating disease. Government Affairs Specialist: GUILLE Transcribe Date/Time: Jul 09 2021 2:02A Dictated by : CARLOS ALEJANDRA MD This examination was interpreted and the report reviewed and electronically signed by: CARLOS ALEJANDRA MD on Jul 09 2021 2:09AM EST [id number] Normal [facility] Magnesiumon 07-09-2021 Magnesium [Mass/Vol] 1.8 mg/dL Normal 1.7-2.3 [facility] NURSING PROGon 07-09-2021 NURSING PROG HNO ID: [id number] Author: Demetrice Chacon RN Service: Nursing Author [...] note was completed by: Demetrice Chacon Normal [facility] Protein/Creatinine Ratioon 1 09-09-2020 Creatinine,Urine,Ran 68.3 mg/dL Normal 20-300 [facility] Comment on above: Performed By: #### P RATIO ####[address] [phone] Protein (U) [Mass/Vol] 7 mg/dL Normal 0-20 [facility] Comment on above: Performed By: #### P RATIO ####[facility] [place], [place] [phone] Protein/Creatinine Ratio 0.1 Normal <0.2 [facility] Comment on above: Performed By: #### P RATIO ####[address] [phone] Urinalysis with Microscopico n 07-09-2021 Bilirubin, Urine Negative Normal Negative [facility] Cast SEE COMMENT Normal 0 [facility] Comment on above: Result Comment: 0 Clarity (U) Clear Normal Clear [facility] Color (U) Yellow Normal Yellow [facility] Glucose Ql (U) 1+ mg/dL Critically abnormal Negative [facility] Hemoglobin/Blood,Ur Negative Normal Negative [facility] Ketones Ql (U) Negative Normal Negative [facility] Leukest Negative Normal Negative [facility] Nitrite Ql (U) Negative Normal Negative [facility] pH (U) 5.5 [pH] Normal 5.0-8.0 [facility] Protein, Urine Trace Critically abnormal Negative [facility] RBC 0-3 Normal 0-3 [facility] Resource S[facility] Specific [place], Ur 1.010 Normal 1.005-1.030 [facility] Urobilinogen Qn (U) 0.2 {Andrea'U}/dL Normal 0.2-1.0 [facility] WBC 0-5 Normal 0-5 [facility] ALLIED HEALTHon 07-08-2021 ALLIED HEALTH HNO ID: [id number] Author: Joshua Moran Service: Spiritual Care Author Type: ? Type: Allied Health Filed: 07/08/2021 1:06 PM Note Text: SPIRITUAL CARE PROGRESS NOTE SERVICE DATE: 07/08/2021 SERVICE TIME: 12:45PM Pt listed as Mandaen Jew in [facility], and he shared that he and his family attend the [place] in [place], [place]; pt in good spirits but drowsy at the time of visit; shared that he has undergone a liver transplant, and is now dealing with pancreatitis; provided him with a daily devotional for his use, and offered a blessing bedside; no follow-up planned unless requested. To contact the Spiritual Care Department: Please call Ext [phone] SIGNATURE: Joshua Moran PATIENT NAME: Chuckie Villalta DATE: July 08, 2021 TIME: 1:04 PM PAGER/CONTACT #: [phone] Normal [facility] CBC and Differentialon 07-08 Abs Baso 0.00 k/uL Normal <0.11 [facility] Abs [place] 1.25 k/uL High <0.87 [facility] Abs Neut 6.26 k/uL Normal 1.45-7.50 [facility] ANC(includeSEG+BAND) 6.26 k/uL Normal [facility] Anisocytosis Ql (Bld) Present Normal [facility] Basophils/100 WBC (Bld) 0.0 % Normal [facility] DTYPE Manual Diff Normal [facility] Eosinophils (Bld) [#/Vol] 0.00 10*3/uL Normal <0.46 [facility] Eosinophils/100 WBC (Bld) 0.0 % Normal [facility] Erythrocyte distribution width (RBC) [Ratio] 15.7 % High 11.5-15.0 [facility] Hematocrit (Bld) [Volume fraction] 26.0 % Low 39.0-51.0 [facility] Hemoglobin (Bld) [Mass/Vol] 9.0 g/dL Low 13.0-17.0 [facility] Left Shift Present Normal [facility] Lymphocytes (Bld) [#/Vol] 0.23 10*3/uL Low 1.00-4.00 [facility] Lymphocytes/100 WBC (Bld) 3.0 % Normal [facility] MCH 35.4 pG High 26.0-34.0 [facility] MCHC (RBC) [Mass/Vol] 34.6 g/dL Normal 30.5-36.0 [facility] MCV (RBC) [Entitic vol] 102.4 fL High 80.0-100.0 [facility] Monocytes/100 WBC (Bld) 16.0 % Normal [facility] Myelo% 1.0 % Normal [facility] Neutrophils/100 WBC (Bld) 80.0 % Normal [facility] Platelet Estimate Platelet estimate decreased Normal [facility] Platelet mean volume (Bld) [Entitic vol] 12.3 fL Normal 9.0-12.7 [facility] Platelets (Bld) [#/Vol] 39 10*3/uL Low 150-400 [facility] Polychromasia Slight Normal [facility] RBC (Bld) [#/Vol] 2.54 10*6/uL Low 4.20-6.00 [facility] WBC (Bld) [#/Vol] 7.82 10*3/uL Normal 3.70-11.00 [facility] CONSULTon 07-08-2021 CONSULT HNO ID: [id number] Author: Justin Glasgow PA-C Service: Pain Management Author Type: Physician Fishing Rod Mechanic Type: Consults Filed: 07/08/2021 2:06 PM Note Text: PAIN MANAGEMENT CONSULT -- [facility] PATIENT NAME: Chuckie Villalta DATE [...] is consulted RE: acute pancreatitis, on fentanyl python django developer by Dr. Jolynn Jaquez and Lisseth Raymond CNP. Mr. Villalta describes a constant aching in [...] (PF) 4 mg injection (ZOFRAN) - fentaNYL HOT MOLDER 20 mcg/mL in NaCl 0.9% 100 mL [...] 167* TP (more content not included)... Normal [facility] CONSULT HNO ID: [id number] Author: Spike Gandara MD Service: Nephrology Author Type: Physician Type: Consults Filed: 07/08/2021 2:05 PM Note Text: [facility] NEPHROLOGY AND HYPERTENSION [facility] SERVICE [...] injection (ZOF (more content not included)... Normal [facility] CONSULT PROGon 07-08-2021 CONSULT PROG HNO ID: [id number] Author: Ana Cotton APRN.MOTOR AND GENERATOR BRUSH CUTTER Service: Gastroenterology Author Type: Nurse Practitioner Type: [...] Splenomegaly. 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 Will discuss with staff and SM Dr. Quezada as well. Normal [facility] Calcium, Ionizedon Calcium, Ionized 1.12 mmol/L Normal 1.08-1.30 [facility] Comp Metabolic Panelon 07-08 Albumin [Mass/Vol] 2.9 g/dL Low 3.9-4.9 [facility] ALP [Catalytic activity/Vol] 60 U/L Normal 38-113 [facility] ALT [Catalytic activity/Vol] 22 U/L Normal 10-54 [facility] Anion gap [Moles/Vol] 8 mmol/L Low 9-18 [facility] AST [Catalytic activity/Vol] 38 U/L Normal 14-40 [facility] Bilirubin [Mass/Vol] 1.6 mg/dL High 0.2-1.3 [facility] Calcium [Mass/Vol] 8.0 mg/dL Low 8.5-10.2 [facility] Chloride [Moles/Vol] 106 mmol/L High 97-105 [facility] CO2 [Moles/Vol] 18 mmol/L Low 22-30 [facility] Creatinine [Mass/Vol] 2.34 mg/dL High 0.73-1.22 [facility] eGFR- Amer. 39 Normal [facility] eGFR-All Other Races 32 . Normal [facility] Comment on above: Result Comment: eGFR (Estimated [...] [email or web address]. Glucose [Mass/Vol] 107 mg/dL High 74-99 [facility] Comment on above: Result Comment: The [place] Diabetes Association (ADA) provides guidance for cutoff [...] Standards of Medical Care in Diabetes 2016, [place] Diabetes Association. Diabetes Care. 2016.39(Suppl 1). Potassium [Moles/Vol] 3.9 mmol/L Normal 3.7-5.1 [facility] Protein [Mass/Vol] 4.9 g/dL Low 6.3-8.0 [facility] Sodium [Moles/Vol] 132 mmol/L Low 136-144 [facility] Urea nitrogen [Mass/Vol] 17 mg/dL Normal 9-24 [facility] Lipaseon 07-08-2021 Lipase [Catalytic activity/Vol] 235 U/L High 16-61 [facility] Magnesiumon 07-08-2021 Magnesium [Mass/Vol] 1.4 mg/dL Low 1.7-2.3 [facility] Tacrolimus / [id number] Tacrolimus / FK506 23.3 ng/mL High 5.0-20.0 [facility] Comment on above: Result Comment: Thes e [...] Test performed by chemiluminescent immunoassay using Schuler Junior Qa Analyst. Performed By: #### F K506 ####[facility] [place], [place] [phone] US ABD RIGHT UPPER QUADRANTo n 07-08-2021 US ABD RIGHT UPPER QUADRANT * * *Final Report* * * DATE OF EXAM: Jul 08 2021 12:08PM [facility] 1032 - US ABD RIGHT UPPER QUADRANT [...] 5. Trace ascites in the upper abdomen. Government Affairs Specialist: GUILLE Transcribe Date/Time: Jul 08 2021 12:28P Dictated by : ROCIO MANZO MD This examination was interpreted and the report reviewed and electronically signed by: ROCIO MANZO MD on Jul 08 2021 12:32PM EST [id number] Normal [facility] US ABD SPLEEN -NBon 07-08-20 21 US ABD SPLEEN -NB * * *Final Report* * * DATE OF EXAM: Jul 08 2021 12:08PM [facility] 1232 - US ABD SPLEEN -NB [...] 5. Trace ascites in the upper abdomen. Government Affairs Specialist: [facility] Transcribe Date/Time: Jul 08 2021 12:28P Dictated by : ROCIO MANZO MD This examination was interpreted and the report reviewed and electronically signed by: ROCIO MANZO MD on Jul 08 2021 12:32PM EST [id number] Normal [facility] Vancomycinon 07-08-2021 Vancomycin 18.6 ug/mL Normal 10.0-20.0 [facility] Comment on above: Result Comment: Refe rence ranges and high/low indicator flags are provided as general guidelines only. The treating physician must determine appropriate target levels/dosing based on the specific clinical situation. CBCon 07-07-2021 Absolute nRBC 0.03 k/uL High <0.01 [facility] Erythrocyte distribution width (RBC) [Ratio] 15.7 % High 11.5-15.0 [facility] Hematocrit (Bld) [Volume fraction] 29.1 % Low 39.0-51.0 [facility] Hemoglobin (Bld) [Mass/Vol] 10.5 g/dL Low 13.0-17.0 [facility] MCH 36.2 pG High 26.0-34.0 [facility] MCHC (RBC) [Mass/Vol] 36.1 g/dL High 30.5-36.0 [facility] MCV (RBC) [Entitic vol] 100.3 fL High 80.0-100.0 [facility] Platelet mean volume (Bld) [Entitic vol] 11.8 fL Normal 9.0-12.7 [facility] Platelets (Bld) [#/Vol] 45 10*3/uL Low 150-400 [facility] RBC (Bld) [#/Vol] 2.90 10*6/uL Low 4.20-6.00 [facility] WBC (Bld) [#/Vol] 9.23 10*3/uL Normal 3.70-11.00 [facility] CONSULT PROGon 07-07-2021 CONSULT PROG HNO ID: [id number] Author: Valencia Noguera [facility]ly [facility] Service: Pharmacy Author Type: Pharmacist Type: Consult [...] have any questions, please contact pharmacy at [phone]. Age: [age] year old Allergies: ALLERGIES Allergen [...] Date/Time Value 07/07/20212001 37.3 (H) Valencia Noguera, [facility] Normal [facility] Comp Metabolic Panelon 07-07 Albumin [Mass/Vol] 3.0 g/dL Low 3.9-4.9 [facility] ALP [Catalytic activity/Vol] 70 U/L Normal 38-113 [facility] ALT [Catalytic activity/Vol] 41 U/L Normal 10-54 [facility] Anion gap [Moles/Vol] 9 mmol/L Normal 9-18 [facility] AST [Catalytic activity/Vol] 131 U/L High 14-40 [facility] Bilirubin [Mass/Vol] 4.9 mg/dL High 0.2-1.3 [facility] Calcium [Mass/Vol] 7.9 mg/dL Low 8.5-10.2 [facility] Chloride [Moles/Vol] 105 mmol/L Normal 97-105 [facility] CO2 [Moles/Vol] 18 mmol/L Low 22-30 [facility] Creatinine [Mass/Vol] 1.63 mg/dL High 0.73-1.22 [facility] eGFR- Amer. 59 Normal [facility] eGFR-All Other Races 48 . Normal [facility] Comment on above: Result Comment: eGFR (Estimated [...] [email or web address]. Glucose [Mass/Vol] 110 mg/dL High 74-99 [facility] Comment on above: Result Comment: The [place] Diabetes Association (ADA) provides guidance for cutoff [...] Standards of Medical Care in Diabetes 2016, [place] Diabetes Association. Diabetes Care. 2016.39(Suppl 1). Potassium [Moles/Vol] 4.1 mmol/L Normal 3.7-5.1 [facility] Protein [Mass/Vol] 5.0 g/dL Low 6.3-8.0 [facility] Sodium [Moles/Vol] 132 mmol/L Low 136-144 [facility] Urea nitrogen [Mass/Vol] 15 mg/dL Normal 9-24 [facility] NURSING PROGon 07-07-2021 NURSING PROG HNO ID: [id number] Author: Preethi Slater RN Service: Nursing Author Type: Registered Nurse Type: Nursing Progress Note Filed: 07/06/2021 11:25 PM Note Text: Nursing Progress Note Patient Name: Chuckie Villalta Patient Location: AV414/ Transfer Note: Patient transferred from [facility] to [facility] Room 414 by bed in stable condition with IV fluids, IV antibiotics, and a HOT MOLDER pump with on demand fentanyl. Vital signs obtained, patient oriented to room. Call light within reach. This note was completed by: Preethi Slater RN [facility] NURSING PROG HNO ID: [id number] Author: Delilah Le RN Service: Nursing Author Type: Registered Nurse Type: Nursing Progress Note Filed: 07/06/2021 10:24 PM Note Text: Report called to room 414 Vicenta RENAE patient aware of tranfer. Belongings with patient , transferred juanpablo new room with RN in bed, vs stable. [facility] Vancomycinon 07-07-2021 Vancomycin 37.3 ug/mL High 10.0-20.0 [facility] Comment on above: Result Comment: Refe rence ranges and high/low indicator flags are provided as general guidelines only. The treating physician must determine appropriate target levels/dosing based on the specific clinical situation. CASE MGT INIT [facility] 2020 [facility] HNO ID: [id number] Author: Mariluz Salamanca RN Service: Nursing Author Type: Registered Nurse Type: Care Mgt Initial Assessment Filed: 07/06/2021 2:04 PM Note Text: CARE MANAGEMENT: ASSESSMENT AND DISCHARGE PLAN SERVICE DATE: July 06, 2021 SERVICE TIME: 1:59 PM PRIMARY CARE PHYSICIAN: Luis Abdalla DO ADMISSION STATUS: Inpatient MEDICAL: [facility] MEDICAID Health Insurance: [facility] ([facility] Plan Medicaid) Last Discharge Date: 02/13/20 Is this Within the Past 30 days? Advance Directive: Current Advance Directive: Health Care Power of Rag Inspector In Chart: Yes Up To Date and Valid: Yes Baseline Mental Status Prior to this Illness what was the patient's Baseline Mental Status?: Alert AND Oriented Prior to this illness, has anyone described the patient having any of the following behaviors?: Not Applicable Relationship of the informant to the patient:: Self Primary Contact: Extended Emergency Contact Information Primary Emergency Contact: Remedios Villalta Address: [facility] [address] [address] [facility] Mobile Relation: Spouse Supportive Patient Contact:: Yes Contact Resources: Family;Significant Other FREEDOM OF CHOICE EXPLAINED: Blanding of Choice Given: No Reason Not Given: [...] 06, 2021 TIME: 1:59 PM PAGER/CONTACT #: [phone] Normal [facility] CBC and Differentialon 07-06 Abs Baso 0.00 k/uL Normal <0.11 [facility] Abs [place] 0.64 k/uL Normal <0.87 [facility] Abs Neut 8.13 k/uL High 1.45-7.50 [facility] ANC(includeSEG+BAND) 8.13 k/uL Normal [facility] Basophils/100 WBC (Bld) 0.0 % Normal [facility] DTYPE Manual Diff Normal [facility] Eosinophils (Bld) [#/Vol] 0.09 10*3/uL Normal <0.46 [facility] Eosinophils/100 WBC (Bld) 1.0 % Normal [facility] Erythrocyte distribution width (RBC) [Ratio] 14.6 % Normal 11.5-15.0 [facility] Hematocrit (Bld) [Volume fraction] 30.9 % Low 39.0-51.0 [facility] Hemoglobin (Bld) [Mass/Vol] 11.4 g/dL Low 13.0-17.0 [facility] Left Shift Present Normal [facility] Lymphocytes (Bld) [#/Vol] 0.27 10*3/uL Low 1.00-4.00 [facility] Lymphocytes/100 WBC (Bld) 3.0 % Normal [facility] MCH 35.0 pG High 26.0-34.0 [facility] MCHC (RBC) [Mass/Vol] 36.9 g/dL High 30.5-36.0 [facility] MCV (RBC) [Entitic vol] 94.8 fL Normal 80.0-100.0 [facility] Monocytes/100 WBC (Bld) 7.0 % Normal [facility] Neutrophils/100 WBC (Bld) 89.0 % Normal [facility] Platelet Estimate Platelet estimate decreased Normal [facility] Platelet mean volume (Bld) [Entitic vol] 11.3 fL Normal 9.0-12.7 [facility] Platelets (Bld) [#/Vol] 63 10*3/uL Low 150-400 [facility] RBC (Bld) [#/Vol] 3.26 10*6/uL Low 4.20-6.00 [facility] Red Cell Morph SEE COMMENT Normal [facility] Comment on above: Result Comment: Unre markable WBC (Bld) [#/Vol] 9.13 10*3/uL Normal 3.70-11.00 [facility] CONSULTon 07-06-2021 CONSULT HNO ID: [id number] Author: Og Gibbs MD Service: Gastroenterology Author [...] and hi s transferring the [facility] giving his complex medica history and the need for repeated ERCP Dr. Wilburn reviewed the case too and agreed to transfer the patient to for further care Normal [facility] CONSULT PROGon 07-06-2021 CONSULT PROG HNO ID: [id number] Author: Pearl Mann RPh Service: Pharmacy Author [...] any questions, please contact Pharmacy at ex [phone]. Age: [age] year old Allergies: ALLERGIES Allergen [...] Levels: No results found for: CHIDI Mann, [facility] Normal [facility] Comp Metabolic Panelon 07-06 Albumin [Mass/Vol] 3.5 g/dL Low 3.9-4.9 [facility] ALP [Catalytic activity/Vol] 60 U/L Normal 38-113 [facility] ALT [Catalytic activity/Vol] 60 U/L High 10-54 [facility] Anion gap [Moles/Vol] 15 mmol/L Normal 9-18 [facility] AST [Catalytic activity/Vol] 361 U/L High 14-40 [facility] Bilirubin [Mass/Vol] 6.6 mg/dL High 0.2-1.3 [facility] Calcium [Mass/Vol] 7.8 mg/dL Low 8.5-10.2 [facility] Chloride [Moles/Vol] 102 mmol/L Normal 97-105 [facility] CO2 [Moles/Vol] 15 mmol/L Low 22-30 [facility] Creatinine [Mass/Vol] 1.73 mg/dL High 0.73-1.22 [facility] eGFR- Amer. 55 Normal [facility] eGFR-All Other Races 45 . Normal [facility] Comment on above: Result Comment: eGFR (Estimated GFR) Units of measure: mL/min/1.73 meters squared eGFR is derived from the reexpressed MDRD Study equation using the following parameters: serum creatinine, age, gender and race. The creatinine assay has been calibrated to be traceable to [employer]. An eGFR <60 mL/min/1.73m2 for >3 months [...] [email or web address]. Glucose [Mass/Vol] 129 mg/dL High 74-99 [facility] Comment on above: Result Comment: The [place] Diabetes Association (ADA) provides guidance for cutoff [...] Standards of Medical Care in Diabetes 2016, [place] Diabetes Association. Diabetes Care. 2016.39(Suppl 1). Potassium [Moles/Vol] 4.3 mmol/L Normal 3.7-5.1 [facility] Protein [Mass/Vol] 5.2 g/dL Low 6.3-8.0 [facility] Sodium [Moles/Vol] 132 mmol/L Low 136-144 [facility] Urea nitrogen [Mass/Vol] 17 mg/dL Normal 9-24 [facility] ED NOTEon 07-06-2021 ED NOTE HNO ID: [id number] Author: Marcela Corley RN Service: Nursing Author Type: Registered Nurse Type: ED Notes Filed: 07/06/2021 4:57 AM Note Text: Report to Loraine RENAE. Normal [facility] ED NOTE HNO ID: [id number] Author: Marcela Corley RN Service: Nursing Author Type: Registered Nurse Type: ED Notes Filed: 07/06/2021 4:51 AM Note Text: Pt resting in bed at this time. Call light within reach, will continue to monitor. Normal [facility] Expedited [id number] 07-06-20 SARS-CoV-2 (COVID-19) RNA NOLBERTO+probe Ql (Unsp spec) UPPER RESPIRATORY TRACT SWAB Normal [facility] SARS-CoV-2 (COVID-19) RNA NOLBERTO+probe Ql (Unsp spec) Negative for COVID19 (SARS CoV2) by RT-PCR or equivalent method. Normal Negative for COVID19 (SARS CoV2) by RT-PCR or equivalent method. [facility] Comment on above: Result Comment: This test has been authorized by FDA under an Emergency Use Authorization (EUA). Lipaseon 07-06-2021 Lipase [Catalytic activity/Vol] 1496 U/L High 16-61 [facility] Magnesiumon 07-06-2021 Magnesium [Mass/Vol] 1.2 mg/dL Low 1.7-2.3 [facility] NURSING PROGon 07-06-2021 NURSING PROG HNO ID: [id number] Author: Loraine Ya RN Service: Nursing Author Type: Registered Nurse Type: Nursing Progress Note Filed: 07/06/2021 6:31 AM Note Text: Nursing Progress Note Patient Name: Chuckie Villalta Patient Location: [place] [address] [address] Transfer Note: Patient transferred into room/unit 426 in stable condition. Actions taken: Report given by Marcela RENAE. No futher actions taken at this time. Will continue to monitor and check with patient. Patient belongings with patient oriented to room, answered questions, denies needs at this time. This note was completed by: Loraine Ya Normal [facility] XR CHEST 1V FRONTAL PORTon 1 09-06-2020 [...] are detected. IMPRESSION: No acute radiographic abnormality. Government Affairs Specialist: GUILLE Transcribe Date/Time: Jul 05 2021 11:38P Dictated by : RIK YUN MD This examination was interpreted and the report reviewed and electronically signed by: RIK YUN MD on Jul 05 2021 11:39PM EST [id number] Normal [facility] APTTon 07-05-2021 aPTT Coag (Bld) [Time] 22.6 s Low 23.0-32.4 [facility] Comment on above: Result Comment: Unfr [...] laboratory APTT reagent in use throughout the [facility]. Acetaminophenon 07-05-2021 Acetaminophen [Mass/Vol] ug/mL Low 10-30 [facility] Comment on above: Result Comment: Toxi c > 150 ug/mL 4 hours post ingestion The Ginger Akins nomogram can be used to estimate the probability of hepatotoxicity via the relationship of plasma acetaminophen concentration to the post ingestion interval. (Gareth. Pediatrics. 1975. 55:871 to 876 and Ginger et al. Arch Chef Med. 1981. 141:380 to 385). Reference ranges and high/low indicator flags are provided as general guidelines only. The treating physician must determine appropriate target levels/dosing based on the specific clinical situation. Blood Cultureon 12-10-2021 Bacteria identified Cx Nom (Bld) Culture Result - No growth 5 days Normal [facility] Comment on above: Performed By: #### B LCUL ####[place] [address] [place] [phone] CBC and Differentialon 07-05 Abs Baso 0.00 k/uL Normal <0.11 [facility] Comment on above: Performed By: #### C BCDIF ####[place] [address] [place] [phone] Abs [place] 0.97 k/uL High <0.87 [facility] Comment on above: Performed By: #### C BCDIF ####[place] [address] [place] [phone] Abs Neut 28.35 k/uL High 1.45-7.50 [facility] Comment on above: Performed By: #### C BCDIF ####[place] [address] [place] [phone] Anisocytosis Ql (Bld) Present Normal [facility] Comment on above: Performed By: #### C BCDIF ####[place] [address] [place] [phone] Basophils/100 WBC (Bld) 0.0 % Normal [facility] Comment on above: Performed By: #### C BCDIF ####[place] [address] [place] [phone] DTYPE Manual Diff Normal [facility] Comment on above: Performed By: #### C BCDIF ####[place] [address] [place] [phone] Eosinophils (Bld) [#/Vol] 0.00 10*3/uL Normal <0.46 [facility] Comment on above: Performed By: #### C BCDIF ####[place] [address] [place] [phone] Eosinophils/100 WBC (Bld) 0.0 % Normal [facility] Comment on above: Performed By: #### C BCDIF ####[place] [phone] Erythrocyte distribution width (RBC) [Ratio] 15.1 % High 11.5-15.0 [facility] Comment on above: Performed By: #### C BCDIF ####[place] [phone] Hematocrit (Bld) [Volume fraction] 43.2 % Normal 39.0-51.0 [facility] Comment on above: Performed By: #### C BCDIF ####[address] [phone] Hemoglobin (Bld) [Mass/Vol] 16.2 g/dL Normal 13.0-17.0 [facility] Comment on above: Performed By: #### C BCDIF ####[place] [phone] Lymphocytes (Bld) [#/Vol] 0.00 10*3/uL Low 1.00-4.00 [facility] Comment on above: Performed By: #### C BCDIF ####[address] [phone] Lymphocytes/100 WBC (Bld) 0.0 % Normal [facility] Comment on above: Performed By: #### C BCDIF ####[address] [phone] MCH 35.1 pG High 26.0-34.0 [facility] Comment on above: Performed By: #### C BCDIF ####[address] [phone] MCHC (RBC) [Mass/Vol] 37.5 g/dL High 30.5-36.0 [facility] Comment on above: Performed By: #### C BCDIF ####[place] [address], [place] [phone] MCV (RBC) [Entitic vol] 93.7 fL Normal 80.0-100.0 [facility] Comment on above: Performed By: #### C BCDIF ####[place] [address], [place] [phone] Monocytes/100 WBC (Bld) 3.3 % Normal [facility] Comment on above: Performed By: #### C BCDIF ####[place] [address], [place] [phone] Neutrophils/100 WBC (Bld) 96.7 % Normal [facility] Comment on above: Performed By: #### C BCDIF ####[address] [phone] Platelet Estimate Platelet estimate adequate Normal [facility] Comment on above: Performed By: #### C BCDIF ####[address], [place] [phone] Platelet mean volume (Bld) [Entitic vol] 11.6 fL Normal 9.0-12.7 [facility] Comment on above: Performed By: #### C BCDIF ####[address] [phone] Platelets (Bld) [#/Vol] 173 10*3/uL Normal 150-400 [facility] Comment on above: Performed By: #### C BCDIF ####[place] [address], [place] [phone] Polychromasia Slight Normal [facility] Comment on above: Performed By: #### C BCDIF ####[place] [address], [place] [phone] RBC (Bld) [#/Vol] 4.61 10*6/uL Normal 4.20-6.00 [facility] Comment on above: Performed By: #### C BCDIF ####[facility] [address] [place], [place] [phone] WBC (Bld) [#/Vol] 29.32 10*3/uL High 3.70-11.00 [facility] Comment on above: Result Comment: Resu lt checked and verified No clot detected. Performed By: #### C BCDIF ####[facility] [address] [place], [place] [phone] CONSULT PROGon 07-05-2021 CONSULT PROG HNO ID: [id number] Author: Pearl Mann Formerly [facility] Service: Pharmacy Author Type: Pharmacist Type: Consult [...] any questions, please contact Pharmacy at ex [phone]. Age: [age] year old Allergies: ALLERGIES Allergen [...] Levels: No results found for: CHIDI Mann [facility] CT ABD/PEL WO IVCONon 2020 CT ABD/PEL WO IVCON * * *Final Report* * * DATE OF EXAM: Jul 05 2021 7:05PM [facility] 0531 - CT ABD/PEL WO IVCON / [...] abnormality. Lumbosacral pars defects. Lower thorax: Unremarkable. Duplicating Machine Servicer (topogram) images: No additional findings. IMPRESSION: Extensive pancreatitis with inflammatory changes surrounding the transverse colon, spleen and retroperitoneum. Small volume ascites is present. Extent of pancreatic necrosis cannot be assessed on a noncontrast examination. Government Affairs Specialist: GUILLE Transcribe Date/Time: Jul 05 2021 7:12P Dictated by : SPIKE FUNES MD This examination was interpreted and the report reviewed and electronically signed by: SPIKE FUNES MD on Jul 05 2021 7:23PM EST [id number] Normal [facility] Comp Metabolic Panelon 07-05 Albumin [Mass/Vol] 5.0 g/dL High 3.9-4.9 [facility] Comment on above: Performed By: #### C BCDIF ####[facility] [place], [place] [phone] ALP [Catalytic activity/Vol] 77 U/L Normal 38-113 [facility] Comment on above: Performed By: #### C BCDIF ####[facility] [place], [place] [phone] ALT [Catalytic activity/Vol] 34 U/L Normal 10-54 [facility] Comment on above: Performed By: #### C BCDIF ####[facility] [place], [place] [phone] Anion gap [Moles/Vol] 23 mmol/L High 9-18 [facility] Comment on above: Performed By: #### C BCDIF ####[address] [phone] AST [Catalytic activity/Vol] 69 U/L High 14-40 [facility] Comment on above: Performed By: #### C BCDIF ####[address] [phone] Bilirubin [Mass/Vol] 5.3 mg/dL High 0.2-1.3 [facility] Comment on above: Performed By: #### C BCDIF ####[address] [phone] Calcium [Mass/Vol] 9.5 mg/dL Normal 8.5-10.2 [facility] Comment on above: Performed By: #### C BCDIF ####[address] [phone] Chloride [Moles/Vol] 92 mmol/L Low 97-105 [facility] Comment on above: Performed By: #### C BCDIF ####[place] [phone] CO2 [Moles/Vol] 15 mmol/L Low 22-30 [facility] Comment on above: Performed By: #### C BCDIF ####[address] [phone] Creatinine [Mass/Vol] 2.53 mg/dL High 0.73-1.22 [facility] Comment on above: Performed By: #### C BCDIF ####[address] [phone] eGFR- Amer. 35 Normal [facility] Comment on above: Performed By: #### C BCDIF ####[address] [phone] eGFR-All Other Races 29 . Normal [facility] Comment on above: Result Comment: eGFR (Estimated [...] at [email or web address]/[email or web address]/gfr_[email or web address]. Performed By: #### C BCDIF ####[facility], [place] [phone] Glucose [Mass/Vol] 167 mg/dL High 74-99 [facility] Comment on above: Result Comment: The [place] Diabetes Association (ADA) provides guidance for cutoff [...] Standards of Medical Care in Diabetes 2016, [place] [employer] Association. Diabetes Care. 2016.39(Suppl 1). Performed By: #### C BCDIF ####[facility] [address], [place] [phone] Potassium [Moles/Vol] 5.5 mmol/L High 3.7-5.1 [facility] Comment on above: Performed By: #### C BCDIF ####[facility] [address], [place] [phone] Protein [Mass/Vol] 7.6 g/dL Normal 6.3-8.0 [facility] Comment on above: Performed By: #### C BCDIF ####[facility] [address] [place], [place] [phone] Sodium [Moles/Vol] 130 mmol/L Low 136-144 [facility] Comment on above: Performed By: #### C BCDIF ####[facility] [address] [place], [place] [phone] Urea nitrogen [Mass/Vol] 20 mg/dL Normal 9-24 [facility] Comment on above: Performed By: #### C BCDIF ####[facility] [place], [place] [phone] ED NOTEon 07-05-2021 ED NOTE HNO ID: [id number] Author: Max Styles RN Service: ? Author [...] bed in locked and low position Normal [facility] ED PROV NOTEon 07-05-2021 ED PROV NOTE HNO ID: [id number] Author: Will Mccormick DO Service: Emergency Medicine [...] mmol/L Lact (more content not included)... Normal [facility] ED Triage Noteon 07-05-2021 ED Triage Note HNO ID: [id number] Author: Brian Ash I, PA-C Service: Emergency Medicine Author Type: Physician Fishing Rod Mechanic Type: ED Triage Notes Filed: 07/05/2021 6:11 [...] Enzymes Imaging: CT: Abd/pelvis RUQ US SIGNATURE: Brian Ash PA-C Normal [facility] Ethanolon 07-05-2021 Ethanol [Mass/Vol] mg/dL Normal <11 [facility] Comment on above: Result Comment: Valu es > 80 mg/dL may indicate intoxication HISTORY PHYSICALon HISTORY PHYSICAL HNO ID: [id number] Author: Lisseth Raymond APRN.CNP Service: Hospital Medicine Author Type: Nurse Practitioner Type: HANDP Filed: 07/05/2021 9:37 PM Note Text: DEPARTMENT OF HOSPITAL MEDICINE HISTORY AND PHYSICAL EXAM SERVICE DATE: 07/05/2021 Code Status: Not on file SERVICE TIME: 9:27 PM Primary Care Physician: Luis Abdalla, NIGHT AND WEEKEND COVERAGE: MCADOO COVERAGE: Days: [phone], please contact via [employer] Nights: [phone], please page CC Hospitalist Night coverage pager [phone] Subjective CHIEF COMPLAINT: Epigastric pain going through [...] epigastric pain GI: Positive for diarrhea W, , N/V as above. Severe epigastric pain : [...] Lines, Drains, and Airways Line Peripheral 07/05/21 181 Right Antecubital 20 Gauge <1 day Peripheral 07/05/21 1923 Short Left Antecubital 20 Gauge <1 day Reviewed lines and needs to be continued: REASONS: Intravenous fluids, Intravenous antibiotics and Telemetry DATA: Diagnostic tests revie (more content not included)... Normal [facility] Lipaseon 07-05-2021 Lipase [Catalytic activity/Vol] 2781 U/L High 16-61 [facility] Comment on above: Performed By: #### C BCDIF ####[facility] [address] [place], [place] [phone] Magnesiumon 07-05-2021 Magnesium [Mass/Vol] 0.8 mg/dL Low 1.7-2.3 [facility] Comment on above: Result Comment: No c all per procedure. 07/05/21 1847 Performed By: #### C BCDIF ####[facility] [address] [place], [place] [phone] Protimeon 07-05-2021 PT INR 1.3 Normal 0.9-1.3 [facility] Comment on above: Result Comment: Aster min K Antagonist (VKA) Therapeutic Range: INR 2 to 3 (Target INR of 2.5) Note: For patients treated with VKA drugs, such as warfarin, the [place] College [employer] 2012 Guideline recommends [...] 252-289 PT Sec 14.0 sec High 9.7-13.0 [facility] Triglycerideon 07-05-2021 Fasting Time Unknown Normal [facility] Triglyceride [Mass/Vol] 463 mg/dL High <150 [facility] Troponin Ton 07-05-2021 Troponin T <0.010 Normal 0.000-0.029 [facility] Kaleb 02-25-2021 L --- Specimen: [id number] Received: 02/25/21 Status: LU Wayne Num: [id number] Spec Type: Surgical Subm Dr: Josiah Pompa MD Tissues: A Disc - Intervertebral/Lumbar/C ervical (CERVICAL) Procedures: HE Stain, Gross/Micro L3 Patient Age/Sex Location Account Attending Physician Chuckie Villalta 35/M [place] [id number] Josiah Pompa MD SPEC NUM: [id number] RECD: 02/25/21 STATUS: LU WAYNE NUM: [id number] VJ: 02/25/21- [facility] DR: Josiah Pompa MD ENTERED: 02/25/[address] [facility] [address]: LOUIE TYPE: Surgical DEPT: S [...] of montanez-pink, rubbery and ragged fibrous tissue. Livestock Dealer sections are submitted in one cassette labeled A1. (SM/YJ) Microscopic Description One glass slide with H E stained material has been examined. The microscopic findings support the above pathologic diagnosis. CPT Codes 98613 Specimen: [id number] Received: 02/25/21 Status: LU Abdulag Num: [id number] Spec Type: Surgical Subm Dr: Josiah Pompa MD Tissues: A Disc - Intervertebral/Lumbar/C ervical (CERVICAL) Procedures: HE Stain, Gross/Micro L3 Patient: Chuckie Villalta [id number] (Continued) Signed (signature on file) Lucretia Lund MD 02/26/21 1655 [facility] XR cervical spine 1Von 02-25 XR cervical spine 1V [facility] [place] [address] [place], [place] [id number] XRay Report Signed Patient: Chuckie Villalta MR#: [id number] 56 : 1985 Acct:[id number] Age/Sex: 35 / M ADM Date: 02/25/21 Loc: 4 Room: [address] [place] [address] Type: REG [facility] [...] Carlos Solano M.D.02/25/2021 4:31 PM Dictation Location: [place] [address] Transcribed By: [facility] 02/25/21 1631 Dictated By: Carlos Solano II, MD 02/25/21 1630 Signed By: 02/25/21 1631 [facility] Basic Metabolic Panelon 01-25 Calcium [Mass/Vol] 9.3 mg/dL Normal 8.2-10.2 [facility] Comment on above: Result Comment: PERF ORMED BY: [place] [address] PATHOLOGIST DELI WORKER ALFRED TRACY M.D. Performed By: #### B MP, CBC #### [place] [address] [place] Chloride [Moles/Vol] 99 mmol/L Normal 95-114 [facility] Comment on above: Performed By: #### B MP, CBC #### [facility] [address] CO2 [Moles/Vol] 20.5 mmol/L Low 22.0-30.0 [facility] Comment on above: Performed By: #### B MP, CBC #### [facility] [address] Creatinine [Mass/Vol] 1.31 mg/dL High 0.64-1.27 [facility] Comment on above: Performed By: #### B MP, CBC #### [address] Estimated GFR ( Marissa > 60 [facility] Comment on above: Result Comment: GFR estimated reference range: According to KDOQI guidelines, <60 ml/min/1.73m2 is sufficient to diagnose a patient with chronic kidney disease. Performed By: #### B MP, CBC #### [address] Estimated GFR (Non- Am > 60 [facility] Comment on above: Performed By: #### B MP, CBC #### [address] Glucose [Mass/Vol] 105 mg/dL High 70-100 [facility] Comment on above: Result Comment: [place] Glucose Reference Range is dependent on time and content of last meal. Glucose of more than 200 mg/dL in a nonstressed, ambulatory subject supports the diagnosis of Diabetes Mellitus. ADA recommended reference range Performed By: #### B MP, CBC #### [facility] [address] [place] [address] [place] Potassium [Moles/Vol] 4.4 mmol/L Normal 3.5-5.1 [facility] Comment on above: Performed By: #### B MP, CBC #### [facility] [address] [place] [address] [place] Sodium [Moles/Vol] 133 mmol/L Low 136-146 [facility] Comment on above: Performed By: #### B MP, CBC #### [facility] [address] Urea nitrogen [Mass/Vol] 11 mg/dL Normal 9-23 [facility] Comment on above: Performed By: #### B MP, CBC #### [facility] [address] COVID-19 FRon 02-21-2021 SARS-CoV-2 (COVID-19) RNA NOLBERTO+probe Ql (Unsp spec) Negative Normal Negative [facility] Comment on above: Order Comment: Healt hcare Worker?: N Result Comment: Testing for SARS-CoV-2 by RT-PCR This test was developed and its performance characteristics determined by [employer] and validated at the [facility]. This test has not been FDA cleared [...] is terminated or revoked sooner. PERFORMED BY: [place] [address] PATHOLOGIST DELI WORKER ALFRED TRACY M.D. Performed By: #### C OVID 19 [facility] #### [facility] [address] Complete Blood Count Auto Di ffon 02-21-2021 Basophils (Bld) [#/Vol] 0.0 10*3/uL Normal 0.0-0.2 [facility] Comment on above: Result Comment: PERF ORMED BY: [place] [address] PATHOLOGIST DELI WORKER ALFRED TRACY M.D. Performed By: #### B MP, CBC #### [address] Basophils/100 WBC (Bld) 0.5 % Normal . [facility] Comment on above: Performed By: #### B MP, CBC #### [address] Eosinophils (Bld) [#/Vol] 0.1 10*3/uL Normal 0.0-0.45 [facility] Comment on above: Performed By: #### B MP, CBC #### [address] Eosinophils/100 WBC (Bld) 1.2 % Normal . [facility] Comment on above: Performed By: #### B MP, CBC #### [address] Erythrocyte distribution width (RBC) [Ratio] 14.0 % Normal 12.0-14.8 [facility] Comment on above: Performed By: #### B MP, CBC #### [address] Hematocrit (Bld) [Volume fraction] 39.2 % Normal 38.8-50.0 [facility] Comment on above: Performed By: #### B MP, CBC #### [address] Hemoglobin (Bld) [Mass/Vol] 13.9 g/dL Normal 13.0-17.0 [facility] Comment on above: Performed By: #### B MP, CBC #### [address] Lymphocytes (Bld) [#/Vol] 1.0 10*3/uL Normal 1.00-4.8 [facility] Comment on above: Performed By: #### B MP, CBC #### [address] Lymphocytes/100 WBC (Bld) 9.5 % Normal . [facility] Comment on above: Performed By: #### B MP, CBC #### [facility] [address] MCH (RBC) [Entitic mass] 32.1 pg Normal 27.5-35.2 [facility] Comment on above: Performed By: #### B MP, CBC #### [facility] [address] MCV (RBC) [Entitic vol] 90.4 fL Normal 83.5-101 [facility] Comment on above: Performed By: #### B MP, CBC #### [address] Mean Corpuscular HGB Conc 35.5 g/dL Normal 32.5-35.6 [facility] Comment on above: Performed By: #### B MP, CBC #### [address] Monocytes (Bld) [#/Vol] 0.6 10*3/uL Normal 0.0-0.8 [facility] Comment on above: Performed By: #### B MP, CBC #### [address] Monocytes/100 WBC (Bld) 6.0 % Normal . [facility] Comment on above: Performed By: #### B MP, CBC #### [address] Neutrophils (Bld) [#/Vol] 8.8 10*3/uL High 1.8-7.7 [facility] Comment on above: Performed By: #### B MP, CBC #### [address] Neutrophils/100 WBC (Bld) 82.8 % Normal . [facility] Comment on above: Performed By: #### B MP, CBC #### [address] Nucleated RBC/100 WBC (Bld) [Ratio] 0.0 % Normal 0-0.5 [facility] Comment on above: Performed By: #### B MP, CBC #### [address] Platelet mean volume (Bld) [Entitic vol] 8.4 fL Normal 6.6-10.1 [facility] Comment on above: Performed By: #### B MP, CBC #### [facility] [address] Platelets (Bld) [#/Vol] 205 10*3/uL Normal 150-450 [facility] Comment on above: Performed By: #### B MP, CBC #### [address] RBC (Bld) [#/Vol] 4.34 10*6/uL Normal 3.90-5.60 [facility] Comment on above: Performed By: #### B MP, CBC #### [address] WBC (Bld) [#/Vol] 10.6 10*3/uL Normal 4.5-11.0 [facility] Comment on above: Performed By: #### B MP, CBC #### [address] ECG 12 lead ECGon 02-18-2021 ECG 12 lead ECG [facility] [place] [address] [place] [address] Electrocardiograph Report Signed Patient: Chuckie Villalta MR#: [id number] 56 : 1985 Acct:[id number] Age/Sex: 35 / M ADM Date: 02/18/21 Loc: Room: Type: [facility] Attending Dr: Josiah Pompa MD Ordering Provider: [...] DO 02/18/21 1413 Signed By: 02/18/21 1610 [facility] MRI CSPINE WO CONon 12-07-19 MRI CSPINE [...] by: ANGIE MCDANIEL Date: 2020-12-06 12:00 Normal [facility] Vital Signs Date Time Vital Sign Value Performing Clinician Facility 02-29-2024 13:25-0400 Body height 185.42 cm [facility] 02-29-2024 13:25-0400 Body mass index (BMI) [Ratio] 29 kg/m2 [facility] 02-29-2024 13:25-0400 Body weight 99.79 kg [facility] 02-29-2024 13:25-0400 Diastolic blood pressure 91 mm[Hg] [facility] 02-29-2024 13:25-0400 Heart rate 111 /min [facility] 02-29-2024 13:25-0400 Respiratory rate 12 /min [facility] 02-29-2024 13:25-0400 Systolic blood pressure 161 mm[Hg] [facility] 06-20-2023 16:12-0500 Body temperature 96.98 [degF] [facility] 06-20-2023 16:12-0500 Diastolic blood pressure 85 mm[Hg] [facility] 06-20-2023 16:12-0500 Heart rate 114 /min [facility] 06-20-2023 16:12-0500 Respiratory rate 18 /min [facility] 06-20-2023 16:12-0500 SaO2% (BldA) [Mass fraction] 100 % [facility] 06-20-2023 16:12-0500 Systolic blood pressure 160 mm[Hg] [facility] 06-11-2023 10:00-0500 Body height 185.42 cm Ecelles Carson Other [facility] Other 06-11-2023 10:00-0500 Body mass index (BMI) [Ratio] 29.66 kg/m2 Ecelles Carson Other [facility] Other 06-11-2023 10:00-0500 Body weight 101.97 kg Luis Ball Other [facility] Other 06-11-2023 10:00-0500 Diastolic blood pressure 97 mm[Hg] Luis Ball Other [facility] Other 06-11-2023 10:00-0500 Respiratory rate 12 /min Luis Ball Other [facility] Other 06-11-2023 10:00-0500 Systolic blood pressure 141 mm[Hg] Luis Ball Other [facility] Other 03-05-2023 09:45-0400 Body height 185.42 cm Luis Ball Other [facility] Other 03-05-2023 09:45-0400 Body mass index (BMI) [Ratio] 29.6 kg/m2 Luis Ball Other [facility] Other 03-05-2023 09:45-0400 Body weight 101.79 kg Luis Ball Other [facility] Other 03-05-2023 09:45-0400 Diastolic blood pressure 109 mm[Hg] Luis Ball Other [facility] Other 03-05-2023 09:45-0400 Systolic blood pressure 153 mm[Hg] Luis Ball Other [facility] Other 09-12-2022 10:30-0500 Body height 185.42 cm Luis Ball Other [facility] Other 09-12-2022 10:30-0500 Body mass index (BMI) [Ratio] 29.95 kg/m2 Luis Ball Other [facility] Other 09-12-2022 10:30-0500 Body weight 102.97 kg Luis Abdalla Other [facility] Other 09-12-2022 10:30-0500 Diastolic blood pressure 86 mm[Hg] Luis Abdalla Other [facility] Other 09-12-2022 10:30-0500 Respiratory rate 12 /min Luis Abdalla Other [facility] Other 09-12-2022 10:30-0500 Systolic blood pressure 132 mm[Hg] Luis Abdalla Other [facility] Other Encounters Encounter Date Encounter Type Care Provider Facility Start: 03-07-2024 End: 03-07-2024 ambulatory Vicente Thompson MD Facility:[facility] Start: 02-29-2024 End: 02-29-2024 ambulatory [facility] Work Phone: Start: 02-29-2024 End: 02-29-2024 [facility] Start: 12-28-2023 End: 12-28-2023 ambulatory Vicente Thompson MD Facility:[facility] Start: 10-19-2023 End: 10-19-2023 ambulatory Vicente Thompson MD Facility:[facility] Start: 09-28-2023 End: 09-28-2023 ambulatory Vicente Thompson MD Facility:[facility] Start: 06-20-2023 End: 06-20-2023 Emergency department patient visit Wilmer Rosenberg Facility:[facility] Start: 06-20-2023 End: 06-20-2023 Emergency department patient visit [facility] Ramana Rosenberg [facility] Start: 06-11-2023 End: 06-11-2023 ambulatory Luis Abdalla Other [facility] Other Start: 06-11-2023 Encounter for genera l adult medical examination without abnormal findings Luis Abdalla [facility] Start: 06-11-2023 Periodic preventive med est patient 18-39 yrs Luis Abdalla [facility] Start: 03-19-2023 End: 03-19-2023 ambulatory BETINA QUEZADA Facility:[facility] Start: 03-05-2023 End: 03-05-2023 ambulatory Luis Abdalla Other [facility] Other Start: 03-05-2023 Office outpatient vi sit 15 minutes Luis Abdalla [facility] Start: 12-11-2022 End: 12-11-2022 ambulatory BETINA QUEZADA Facility:[facility] Start: 09-22-2022 Telephone encounter Rashida Liriano RNleather tooler Comment on above: Care Coordination ([facility] clinic) Start: 09-12-2022 End: 09-12-2022 ambulatory Luis Abdalla Other [facility] Other Start: 09-12-2022 Office outpatient vi sit 25 minutes Luis Abdalla [facility] Start: 09-04-2022 Orders Only Betina Quezada MD Work Phone: Gastroenterology Comment on above: Liver transplant rec ipient (HCC) (Primary Dx) Endoscopy Call Start: 09-04-2022 End: 09-04-2022 Evaluation and management of inpatient MINNA GILESA Facility:[facility] Start: 08-31-2022 End: 09-05-2022 Evaluation and management of inpatient LIUS ABDALLA Facility:[facility] Start: 07-22-2022 ambulatory Nadja Spencer RN [facility] [place] Comment on above: holiday obs erved July 28 Start: 07-22-2022 E-mail encounter fro m caregiver Nadja Spencer RN [facility] Start: 07-07-2022 End: 07-08-2022 ambulatory LUIS ABDALLA Facility:[facility] Start: 05-01-2022 Lucretia HAGAN-C Work Phone: [phone] Comment on above: Refill Request Start: 03-24-2022 Telephone encounter [facility] Comment on above: Reminder To Have Lab s Drawn Start: 03-11-2022 Telephone encounter Nadja [facility] Comment on above: Covid19 Concern Start: 02-25-2022 End: 02-25-2022 ambulatory LUIS ABDALLA Facility:[facility] Start: 02-25-2022 End: 02-25-2022 Patient encounter procedure Rosemariese Duran [facility] [facility] Comment on above: Uncomplicated alcoho l dependence (HCC) Start: 02-20-2022 End: 02-20-2022 Social Work Alessia Marie 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 [facility] Start: 12-27-2021 End: 12-27-2021 Subsequent hospital visit by physician Ct Prep Qb Radiology Start: 12-10-2021 End: 12-10-2021 ambulatory Aidan Larios MD Work Phone: [facility] Comment on above: Liver replaced by tr ansplant (HCC) (Primary Dx); Need for prophylactic immunotherapy Start: 12-10-2021 End: 12-10-2021 Telemedicine consultation with patient Aidan Larios MD Work Phone: [facility] Start: 11-08-2021 Telephone encounter Nadja Gutierrez [facility] Comment on above: Hospital Follow Up Start: 12-06-2020 End: 12-07-[address] LUIS ABDALLA Facility: Procedures Date Procedure Procedure Detail Performing Clinician Start: 09-04-2022 FLUORO ERCP (POC) FOR DDI USE ONLY Betina Quezada MD Work Phone: Start: 09-03-2022 Antibody screen BETINA QUEZADA Comment on above: Order Comment: Specimen Type: BLOOD SPEC IMENOrdering Facility: [facility] Address: [address] [place] [address] Performed By: #### T SCR ####CC [facility] BLOOD BANKCLIA [id number] [address] [place] Start: 02-24-2022 Adult [...] profile DTAP,TDAP,TD (2 - Td or Tdap) [facility] Start: 07-07-2027 LIPID SCREEN LIPID SCREEN [facility] Start: 07-16-2026 LIPID SCREEN LIPID SCREEN [facility] Start: 01-15-2024 PNEUMOCOCCAL (3 - PP SV23 if available, else PCV20) PNEUMOCOCCAL (3 - PPSV23 if available, else PCV20) [facility] Start: 01-15-2024 PNEUMOCOCCAL (3 - PP SV23 or PCV20) PNEUMOCOCCAL (3 - PPSV23 or PCV20) [facility] Start: 10-05-2023 TWO PNEUMOVAX 5 YEAR S APART PRIOR TO AGE 65 (#2) TWO PNEUMOVAX 5 YEARS APART PRIOR TO AGE 65 (#2) [facility] Start: 02-24-2023 Adult depression screening assessment DEPRESSION SCREENING [facility] Start: 12-02-2022 End: 09-04-2023 ERCP ERCP Endoscopy Routine Biliary stricture Expected: 12/02/2022, Expires: 09/04/2023 [facility] Work Phone: Comment on above: Expected: 12/02/2022 , Expires: 09/04/2023 Start: 07-27-2022 DEPRESSION ASSESSMENT DEPRESSION ASS ESSMENT [facility] Start: 03-27-2022 Influenza vaccination [facility] Start: 12-30-2021 End: 03-01-2022 Amylase [Enzymatic activity/volume] in Serum or Plasma AMYLASE BLD Lab Routine Expected: 12/30/2021, Expires: 03/01/2022 [facility] Work Phone: Comment on above: Expected: 12/30/2021 , Expires: 03/01/2022 Start: 12-30-2021 End: 03-01-2022 Lipase [Enzymatic activity/volume] in Serum or Plasma LIPASE BLD Lab Routine Expected: 12/30/2021, Expires: 03/01/2022 [facility] Work Phone: Comment on above: Expected: 12/30/2021 , Expires: 03/01/2022 Start: 12-24-2021 End: 01-09-2023 Ct abdomen w/contrast material CT ABDOMEN W IVCON Radiology Routine Expected: 12/24/2021 (Approximate), Expires: 01/09/2023 [facility] Work Phone: Comment on above: Expected: 12/24/2021 (Approximate), Expires: 01/09/2023 Start: 07-27-2021 DEPRESSION ASSESSMENT DEPRESSION ASS [facility] Start: 07-10-2020 Adult depression screening assessment DEPRESSION SCREENING [facility] Start: 07-07-2020 MENINGOCOCCAL B: Consider based on risk (3 of 4 - Increased Risk Bexsero 2-dose series) MENINGOCOCCAL B: Consider based on risk (3 of 4 - Increased Risk Bexsero 2-dose series) [facility] Start: 03-11-2019 MENINGOCOCCAL CONJUG ATE (2 - Risk 2-dose series) MENINGOCOCCAL CONJUGATE (2 - Risk 2-dose series) [facility] Start: 2004 SHINGRIX VACCINE (1 of 2) SHINGRIX VACCINE (1 of 2) [facility] Start: 11-01-2003 ANNUAL PCP TEAM MAXILLOFACIAL PROSTHODONTIST BRANDON DISEASE VISIT ANNUAL PCP TEAM CHRONIC DISEASE VISIT [facility] Start: 11-01-2003 BP CONTROLLED (<130/80) BP CONTROLLE D (<130/80) [facility] Start: 1997 COVID-19 VACCINE (1) COVID-19 VACCIN E (1) [facility] Start: 1990 COVID-19 VACCINE (#1) COVID-19 VACCI NE (#1) [facility] Start: 05-02-1986 COVID-19 VACCINE (#1) COVID-19 VACCI NE (#1) [facility] Immunizations Immunization Date Immunization Notes Care Provider Fa cili 04-18-2020 influenza virus vacc ine, split virus (incl. purified surface antigen) Luis Abdalla Other [facility] Other 04-18-2020 influenza virus vacc ine, unspecified formulation [facility] 07-07-2019 meningococcal B vacc ine, recombinant, OMV, adjuvanted Nadja Spencer RN [facility] 05-20-2019 hepatitis A and hepatitis B vaccine Nadja Spencer RN [facility] 05-20-2019 influenza, injectabl e, quadrivalent, contains preservative Nadja Spencer RN [facility] 01-14-2019 haemophilus influenz ae type b vaccine, PRP-OMP conjugate Nadja Spencer [facility] 01-14-2019 meningococcal B vacc ine, recombinant, OMV, adjuvanted Nadja Spencer RN [facility] 01-14-2019 meningococcal oligosaccharide (groups A, C, Y and W-135) diphtheria toxoid conjugate vaccine (MCV4O) Nadja Spencer RN [facility] 01-14-2019 pneumococcal conjuga te vaccine, 13 valent Nadja Spencer RN [facility] 10-04-2018 hepatitis A and hepatitis B vaccine Nadja Spencer RN [facility] 10-04-2018 pneumococcal polysaccharide vaccine, 23 valent Nadja Spencer RN [facility] 07-01-2018 hepatitis A and hepatitis B vaccine Nadja Spencer RN [facility] 07-01-2018 influenza, injectabl e, quadrivalent, contains preservative Nadja Spencer [facility] 07-01-2018 pneumococcal conjuga te vaccine, 13 valent Nadja Spencer RN [facility] 07-01-2018 tetanus toxoid, redu simon diphtheria toxoid, and acellular pertussis vaccine, adsorbed Nadja Spencer RN [facility] 04-30-2009 hepatitis B vaccine, adult dosage Nadja Spencer RN [facility] Payers Date Payer Category Payer Medicaid MEDICAID [facility] MEDICAID [id number] 2021-Present [phone] [address] [place] [address] Medicaid [id number] 2021 Medicaid [id number] 2021 Medicaid [id number] 2021 Medicare MEDICARE MEDICAR E A AND B [id number] 2021-Present [phone] [address] [address] [place] [address] Medicare [id number] 2021 Medicare [id number] 2021 Medicare [id number] 2020 Medicaid [facility] MEDICAID [facility] MEDICAID [id number] 2020-Present [phone] [address] [place] [address] Medicaid [id number] 1985 Unknown [id number] 1985 Unknown [id number] 1985 Unknown [id number] 1985 Unknown [id number] 1985 Unknown [id number] 1985 Unknown [id number] 1959 Unknown [id number] Self-pay Self Pay [id number] Social History Date Type Detail Facility Start: 05-04-2018 End: 02-29-2024 Tobacco smoking status NHIS Never smoked tobacco [facility] Start: 05-04-2018 Tobacco use and exposure Former smokeless tobacco user [facility] Start: 09-17-2021 End: 09-04-2022 Alcohol intake Current drinker of alcohol (finding) [facility] Start: 07-05-2021 History SDOH Alcohol Comment occasionally [facility] Start: 1985 Sex Assigned At Not on file [facility] Start: 10-20-2021 End: 2021 Exposure to SARS-CoV-2 (event) Not sure [facility] Sex Assigned At [facility] Tobacco smoking status No Smoking Status Entered [facility] Start: 1985 Sex Assigned At Male F [facility] Medical Equipment Procedure Code Equipment Code Equipment Origin al Text Equipment Identifier Dates Stent Axios 15mm 24mm 138mm 10.8fr Nitinol Silicone 10mm 146mm Pancreatic - [id number] Start: 11-01-2021 Stent 10fr Duode nal Bend Plastic 12cm Biliary Temporary Rapid Exchange - [id number] Start: 09-04-2022 Spinal fixation plate, non-bioabsorbable ()[id number] FDA Start: 02-25-2021 Spinal fixation plate, non-bioabsorbable ()[id number] FDA Start: 02-25-2021 Intervertebral-b josesito internal spinal fixation system ()[id number] FDA Start: 02-25-2021 Intervertebral-b josesito internal spinal fixation system ()[id number] [facility] Start: 02-25-2021 Functional Status Date Assessment Result Facility 06-20-2023 Functional Status N/A [facility] Clinical Notes 07-25-2019 to 06-20-2023 [...] cast on your foot. General instructions Take kzwi-tap-sgcfuat and prescription medicines only as told by [...] provider. Document Revised: 11/02/2020 Document Reviewed: 11/02/2020 [employer] Patient Education 2022 [email or web address]. 06/20/2023 18:04:25 Elastic Bandage and RICE Therapy [...] your activities and whether you should start ltglb-ov-xfbtiw exercises for your injury. Ice Ice your [...] provider. Document Revised: 09/07/2020 Document Reviewed: 04/02/2018 [employer] Patient Education 2020 [employer] Inc[employer] 06/20/2023 18:04:25 Ankle Sprain, Phase II [...] by your health care provider. Stretching and xrvzu-uu-nozgzg exercises These exercises warm up your muscles [...] provider. Document Revised: 09/05/2021 Document Reviewed: 09/05/2021 [employer] Patient Education 2022 [email or web address]. 06/20/2023 18:04:25 Ankle Sprain, Phase I Rehab [...] by your health care provider. Stretching and ccgdm-ds-udbiec exercises These exercises warm up your muscles [...] provider. Document Revised: 09/05/2021 Document Reviewed: 09/05/2021 [employer] Patient Education 2022 [employer] Inc[employer] 06/20/2023 18:04:25 Ankle Sprain Ankle Sprain [...] blue. Managing pain, stiffness, and swelling Take mqha-fre-xvmeqap and prescription medicines only as told by [...] provider. Document Revised: 09/05/2021 Document Reviewed: 09/05/2021 [employer] Patient Education 2022 [email or web address]. Follow Up Care 06/20/2023 15:55:18 With:LUIS ABDALLA Address: [address] [place] [phone]- Business (1) When:06/23/2023 17:48:00 Comments:Follow-up with your primary care provider in 3 to 5 days. If symptoms worsen, do not improve, or new symptoms arise please report back to emergency department for further evaluation. [facility] 06-20-2023 Evaluation + Plan note Extrac edwardo from: Title:ED Note Author:Dilan Adames PA-C te:06/20/23 Left ankle sprain (S93.402A: Sprain of unspecified ligament of left ankle, initial encounter) Sprain of left foot (S93.602A: Unspecified sprain of left foot, initial encounter) Orders: Air Cast Long [facility]11-16-2023 Evaluation note* Encounter Date Diagnosis Assessment [...] to 25mg bid _update office in week May, Gastroesophageal reflux disease with esophagitis without hemorrhage [...] CBD obstruction May, Nausea (ICD-10 - R11.0) [facility] Other 08-24-2023 NoteQ3 Patient Name: Chuckie Villalta [...] procedure well. Moderate Sedation: MAC Findings: A jointer operator film of the abdomen was obtained. [...] present medications. Procedure Code(s): --- Professional --- 02355, Endoscopic retrograde cholangiopancreatography (ERCP); with removal of foreign body(s) or stent(s) from biliary/pancreatic duct(s) 94950, Endoscopic retrograde cholangiopancreatography (ERCP); with removal of calculi/debris from biliary/pancreatic duct(s) 11388, Endoscopic catheterization of the biliary ductal system, [...] Z94.4, Liver transplant status CPT copyright 2020 [employer]. All rights reserved. Attending Participation: I was present and participated during the entire procedure, including non-herr portions. Scope In: 9:20:16 AM Scope Out: 9:35:13 AM MD Betina Troncoso MD 03/19/2023 9:49:13 AM This report has been signed electronically by Betina Quezada MD Number of Addenda: 0 Note Initiated On: 03/19/2023 8:51 [facility]08-24-2023 NoteHNO ID: [id number] Author: Indu Meza, RN Service: Nursing Author Type: Registered Nurse Type: Nursing Progress Note Filed: 03/19/2023 8:29 AM Note Text: VBG collected from [facility] IV and sent to blood gas lab per MD order. Indu [facility]za [facility] Evaluation note* Encounter Date Diagnosis Assessment Notes [...] < 140/90 and HR less than 90 [facility] Other 05-18-2023 NoteHNO ID: [id number] Author: Yun Hutchinson APRN.WEBSPHERE DEVELOPER Service: ? Author Type: Nurse Lens Dotter Type: Anesthesia Procedure Notes Filed: 12/11/2022 10:17 AM Note Text: ANESTHESIOLOGY PROCEDURE NOTE Airway General Information Procedure Start Time/Medication Administration: 12/11/2022 10:08 AM Patient location during procedure: OR Timeout Performed Pre-procedure: timeout performed Consent Obtained: Yes Patient identity confirmed: arm band and patient Staffing WEBSPHERE DEVELOPER: Yun Hutchinson APRN.WEBSPHERE DEVELOPER Performed by: GLORIA Indications and Patient Condition Indications for airway [...] 1 Airway not difficult SIGNATURE: Yun Hutchinson APRN.WEBSPHERE DEVELOPER PATIENT NAME: Chuckie Villalta DATE: December 11, 2022 TIME: 10:15 AM CSN: [id number]05-18-2023 NoteQ3 Patient Name: Chuckie Villalta Procedure Date: [...] A biliary stent was visible on the jointer operator film. A jointer operator film of the abdomen was obtained. [...] exchange stent. Procedure Code(s): --- Professional --- 71196, Endoscopic retrograde cholangiopancreatography (ERCP); with removal and exchange of stent(s), biliary or pancreatic duct, including pre- and post-dilation and guide wire passage, when performed, including sphincterotomy, when performed, each stent exchanged 55426, 59, Endoscopic retrograde cholangiopancreatography (ERCP); with removal and exchange of stent(s), biliary or pancreatic duct, including pre- and post-dilation and guide wire passage, when performed, including sphincterotomy, when performed, each stent exchanged 70873, 59, Endoscopic retrograde cholangiopancreatography (ERCP); with trans-endoscopic balloon dilation of biliary/pancreatic duct(s) or of ampulla (sphincteroplasty), including sphincterotomy, when performed, each duct 77758, Endoscopic retrograde cholangiopancreatography (ERCP); with removal of calculi/debris from biliary/pancre (more content not included)...[facility]02-27-2023 Miscellaneous Notes* Telephone Encounter - Rashida Liriano RN - 09/22/2022 11:30 AM EST Called and left patient regarding referral to [facility]. Call back number provided. [employer] message with the details also sent. Rashida Liriano RN September 22, 2022 11:32 AM documented in [facility] encounterA[facility] Evaluation note* Encounter Date Diagnosis Assessment [...] recipient (ICD-10 - Z94.4) No s/s rejection [facility] Other 02-10-2023 NoteHNO ID: [id number] Author: Jerri Camacho MD Service: Hepatology Author [...] prior to admission) who was admitted on 2/ d/t abdominal pain suspected to be 2/2 [...] hepatology follow-up and will need information (from ) on EtOH cessation/avoidance and continued participation in AA Jerri Camacho MD Gastroenterology AND Hepatology Fellow Pager [phone] Will d/w staff Dr. Crawford.[facility]02-09-2023 NoteHNO ID: [id number] Author: Minna Tilley MD Service: General Internal Medicine Author Type: Physician Type: Progress Notes Filed: 09/04/2022 4:09 PM Note Text: DEPARTMENT OF HOSPITAL MEDICINE PROGRESS NOTE SERVICE DATE: 09/04/2022 SERVICE TIME: 3:55 PM Hospital Medicine/Primary Attending: Minna Tilley MD NIGHT AND WEEKEND COVERAGE: [facility] COVER[facility]: Days: [phone], please page Minna Tilley for patient issues. Nights: [phone], please page Team GI 6: G/H 8th floor: [address]; Non 8th floor [address] Subjective INTERVAL HPI: No significant events overnight. [...] Lines, Drains, and Airways Line Duration Peripheral 02/05/23 1736 Left Antecubital 18 Gauge 3 days [...] c/w alcoholic hepatitis with (more content not included)...[facility]02-09-2023 Miscellaneous Notes* Telephone Encounter - Betina Quezada MD - 09/04/2022 2:03 PM EST Stent change with bruna documented in this encounterAdena [facility]02-09-2023 NoteHNO ID: [id number] Author: Yamilet Giraldo RN Service: Nursing Author Type: Registered Nurse Type: Nursing Progress Note Filed: 09/04/2022 10:58 AM Note Text: Pt nauseous, order for 4mg zofran given per dr junior order, report called to ayana storm rn g100.[facility]02-09-2023 NoteQ3 Patient Name: Chuckie Villalta Procedure Date: 09/04/2022 8:31 AM Date of : 1985 Admit Type: Inpatient Age: 36 Gender: Male Note Status: Finalized Attending MD: Betina Quezada MD Procedure: ERCP Indications: Stent removal, Post liver transplant assessment, Bile duct stricture Providers: Betina Quezada MD Referring Physician: Minna Tilley (Referring MD) Medicines: General Anesthesia Complications: No [...] procedure well. Moderate Sedation: MAC Findings: A jointer operator film of the abdomen was obtained. [...] present medications. Procedure Code(s): --- Professional --- 21372, Endoscopic retrograde cholangiopancreatography (ERCP); with placement of endoscopic stent into biliary or pancreatic duct, including pre- and post-dilation and guide wire passage, when performed, including sphincterotomy, when performed, each stent 36808, Esophagogastroduodenoscopy, flexible, transoral; with removal of foreign body(s) 09896, Endoscopic catheterization of the biliary ductal system, [...] Z94.4, Liver transplant status CPT copyright 2020 [employer]. All rights reserved. Attending Participation: I personally performed the entire procedure. Scope In: 9:12:21 AM Scope Out: 10:02:05 AM MD Betina Troncoso MD 09/04/2022 10:16:37 AM This report has been signed electronically by Betina Quezada MD Number of Addenda: 0 Note Initiated On: 09/04/2022 8:31 [facility]02-09-2023 NoteHNO ID: [id number] Author: Jerri Camacho MD Service: Hepatology Author [...] cellular rejection (s/p biopsy 2019 x 4) perc liver biopsy recommended and completed on 09/03/22 so will f/u results. Completed labs: EBV VCA IgM negative, CMV DNA neg, Ceruloplasmin 17, Iron panel s/f iron deficiency, Acute hep panel neg (Hep A Ab IgM neg, HBsAg neg, HBcAb IgM neg, HCV RNA neg), AMA neg, ASMA neg, LENNY neg, Pending labs: Anti-HEV Hep delta Ab VZV IgM A1AT phenotype [facility] Plan: - F/u percutaneous liver biopsy results [...] is scheduled) and will need information (from ) on EtOH cessation/avoidance and continued participation in AA Jerri Camacho MD Gastroenterology AND Hepatology Fellow Pager [phone] Will d/w staff Dr. Crawford. Addendum 09/04/22 12:26PM: Prelim path read: No evidence of ACR or chronic rejection; no evidence of bile duct injury or portal vein injury. Changes appear to be most c/w alcoholic hepatitis with severe reactivity. [facility]02-08-2023 NoteHNO ID: [id number] Author: Minna Tilley MD Service: General Internal Medicine Author Type: Physician Type: Progress Notes Filed: 09/03/2022 2:32 PM Note Text: DEPARTMENT OF HOSPITAL MEDICINE PROGRESS NOTE SERVICE DATE: 09/03/2022 SERVICE TIME: 2:24 PM Hospital Medicine/Primary Attending: Minna Tilley MD NIGHT AND WEEKEND COVERAGE: [facility] COVER[facility]: : [phone], please page Minna Tilley for patient issues. Nights: [phone], please page Team GIM 6: G/H 8th floor: [address]; Non 8th floor [address] Subjective INTERVAL HPI: No significant events overnight. [...] needed Leukocytosis, resolved Se (more content not included)...[facility]02-08-2023 NoteHNO ID: [id number] Author: Jerri Camacho MD Service: Hepatology Author [...] Camacho MD Gastroenterology AND Hepatology Fellow Pager [phone] D/w staff Dr. Crawford.[facility]02-07-2023 NoteHNO ID: [id number] Author: Minna Tilley MD Service: General Internal Medicine Author Type: Physician Type: Progress Notes Filed: 09/02/2022 2:24 PM Note Text: DEPARTMENT OF HOSPITAL MEDICINE PROGRESS NOTE SERVICE DATE: 09/02/2022 SERVICE TIME: 2:10 PM Hospital Medicine/Primary Attending: Minna Tilley MD NIGHT AND WEEKEND COVERAGE: [facility] COVERAGE: Days: [phone], please page Minna Tilley for patient issues. Nights: [phone], please page Team GIM 6: G/H 8th floor: [address]375; Non 8th floor [address] Subjective INTERVAL HPI: No significant events overnight. [...] Sepsis ruled out Lactic (more content not included)...[facility]02-06-2023 Note HNO ID: [id number] Author: Minna Tilley MD Service: General Internal Medicine Author Type: Physician Type: Progress Notes Filed: 09/01/2022 2:25 PM Note Text: DEPARTMENT OF HOSPITAL MEDICINE PROGRESS NOTE SERVICE DATE: 09/01/2022 SERVICE TIME: 1:58 PM Hospital Medicine/Primary Attending: Minna Tilley MD NIGHT AND WEEKEND COVERAGE: [facility] COVER[facility]: Days: [phone], please page Minna Tilley for patient issues. Nights: [phone], please page Team GIM 6: G/H 8th floor: [address]35; Non 8th floor [address] Subjective INTERVAL HPI: No significant events overnight. [...] -Follow blood cultures -U (more content not included)...[facility]02-06-2023 NoteHNO ID: [id number] Author: RT Leonora(R) Service: ? Author Type: [...] BY: RT Leonora(R) September 01, 2022 12:56 [facility]10-07-2022 Miscellaneous Notes* Telephone Encounter - Nadja [...] RN * Telephone Encounter - Lorena Adames RPh - 05/01/2022 4:40 PM EDT Patient requests refill of: Requested Prescriptions Pending Prescriptions Disp Refills tacrolimus IR (PROGRAF) 1 mg capsule 120 capsule 3 Sig: Please take 2mg in the morning and 1mg in the evening for a total of 3mg a day. If approved, please e-script the attached order to [facility]. Thank you, Lorena Adames [facility] [phone] documented in this encounterAdena [facility] Center08-29-2022 Miscellaneous Notes* Telephone Encounter - Nadja Spencer RN - 03/24/2022 1:17 PM EDT I sent patient a reminder to have lab work drawn as soon as possible as he has not had labs drawn in some time. Encouraged him to reach out with questions. Nadja Spencer RN (Cassie), BSN Liver Sewing Machine Adjuster documented in this encounterAdena [facility] Center08-16-2022 Miscellaneous Notes* Telephone Encounter - Nadja [...] which he was agreeable to. Nadja Spencer RN (Cassie), BSN Liver Sewing Machine Adjuster documented in this encounterAdena Pike Medical Center08-02-2022 NoteHNO ID: [id number] Author: SHAQ Chua Service: ? Author Type: Fiber Heel Piece Shaper Type: Progress Notes Filed: 02/25/2022 10:46 AM Note Text: [facility] Assessment Visit Type:Virtual Visit utilizing two-way audio and video for at least a portion of the visit IDENTIFYING INFORMATION: [phone] [email or web address] Lives with of nine years, Екатерина and one daughter age five Duration of Interview: start time 9:15 and end time 10:30 pm REFERRAL SOURCE: SHAQ Jaimes liver transplant team BENEFITS: Payor: MEDICARE / Plan: MEDICARE A AND B / Product Type: Medicare / INFORMED CONSENT: Patient completed evaluation via virtual Lánzanoshart encounter due to COVID-19. Patient verbally consented to virtual evaluation. Patient and this teletypewriter installer present during interview. PRECIPITATING PROBLEM(S):Patient was dx with liver disease in 2017. Completed an IOP at [facility] in summer 2018, and received liver [...] Age 16, every other weekend. Went to the [place] for [employer] drank heavily on weekends, then turned 21 [...] from its effects? Yes (more content not included)...[facility] [id number] History of Present illness Narrative* SHAQ Chua - 02/25/2022 9:21 AM EDT [facility] Assessment Visit Type:Virtual Visit utilizing two-way audio and video for at least a portion of the visit IDENTIFYING INFORMATION: [phone] [email or web address] Lives with of nine years, Екатерина andone daughter age five Duration of Interview: start time 9:15 and end time 10:30 pm REFERRAL SOURCE: SHAQ Jaimes liver transplant team BENEFITS: Payor: MEDICARE / Plan: MEDICARE A AND B / Product Type: Medicare / INFORMED CONSENT: Patient completed evaluation via virtual MyChart encounter due to COVID-19. Patient verbally consented to virtual evaluation. Patient and this teletypewriter installer present during interview. PRECIPITATING PROBLEM(S):Patient was dx with liver disease in 2017. Completed an IOP at [facility] in summer 2018, and received liver [...] Age 16, every other weekend. Went [place] the [place] drank heavily on weekends, then [...] MEDICATIONS: none PRIOR CHEMICAL DEPENDENCY TREATMENTS: Yes: [facility] in 2019 TWELVE STEP HISTORY: -Longest period [...] None FAMILY/DEVELOPMENTAL HISTORY: -Born/Raised in (City, State): [place], [place]. Grew up on a farm Biological [...] No EMPLOYMENT HISTORY: -Currently employed? 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 No - Are you in need of assistance to identify and explore career interests, aptitudes, and skills andto formulate immediate and skilled nursing vocational goals? No MARITAL HISTORY: Екатерина -Children: [...] camping, campfires SPIRITUAL ASSESSMENT: -Raised in this Episcopal Background: Jew Current Spiritual/Episcopal Practices: yes -Belief in a Higher Power: [...] things - anyone or anything (e.g., family, islam, pain of ) - that stopped you [...] suicide or other suicidal behavior. From The [employer] [employer] Practice Guidelines for the Assessment [...] meaningful daily activities: Yes Currently Employed: Yes Episcopal affiliation (See spiritual assessment section above) Therapeutic [place]: Does pt believe treatment can help his/her [...] 07/19/2019 VENOUS THROMBOSIS IMAGING VENOGRAM BILATERAL Luis Damon Rm, PAIN: Are you experiencing any pain today: [...] the date of the service which included icic-za-knui patient care and completing clinical documentation. [facility] in this [facility] History of Present illness Narrative* SHAQ [...] Patient states he went through IOP at [facility] and did not have a good experience. SW recommended [facility] IOP to patient and he is agreeable to trying this program. SW provided contact info and also emailed [facility] with this referral. Patient states he will also continue to go to his weekly home groupAA session every Thur at 8pm in [facility]. SW encouraged clt to reach out with any further questions or concerns. SHAQ Jaimes-S Liver Transplant Social Work documented in this encounterAdena [facility]07-28-[facility]22 History of Present illness Narrative* SHAQ Jaimes - 02/20/2022 10:05 AM EDT Patient scheduled for virtual follow up visit with SW today at 1pm. Patient left 2 messages via [employer] cancelling appointment due to time conflict. SHAQ Jaimes-S Liver Transplant Social Work documented in this encounterAdena [facility]06-03-[facility] History of Present illness Narrative* RT Theodore(R) - 12/27/2021 1:00 PM EDT Radiology Service [...] 2021 TIME: 12:54 PM documented in this encounterAdena [facility]ike [facility]05-23-2022 History of Present illness Narrative* Aidan [...] IS. I spent more than 20 minutes gnbs-ng-egyl with the patient and over half the time was devoted to counseling and/or coordination of care. Aidan Larios MD documented in this encounterAdena [facility]ike [facility] Center04-15-2022 Miscellaneous Notes* Telephone Encounter - Nadja Spencer RN - 11/08/2021 3:18 PM EDT Patient returned my text and said that he will be unavailable on 11/12, as he and his family just arrived at [facility]. He will be available for virtual visit on 11/19. I notified scheduling. Nadja Spencer (Cassie) RN, BSN Liver Sewing Machine Adjuster * Telephone Encounter - Nadja Spencer RN - 11/08/2021 2:23 PM EDT I called and LMOM and sent patient a text to follow up with him from [facility]. I let him know that I'd be setting him up for a follow up virtual visit with Dr. Larios. Encouraged him to call back with questions or as needed. Nadja Spencer RN (Cassie), BSN Liver Sewing Machine Adjuster documented in this encounterAdena Pike [facility] Center12-17-2021 NoteHNO ID: [id number] Author: Saba Hills MD Service: Hospital Medicine Author Type: Physician Type: Plan of Care Filed: 07/12/2021 9:21 AM Note Text: # Acute Pancreatitis- in setting of biliary stenosis. Resolved. Last amylase was 59 Per recommendation of GI we initially plan to transfer to [facility] for ERCP but that was later canceled [...] Vision MRI was negative Will discuss with testing coordinator We will also consult ID ? Need to look for CMV retinitis Saba Hills MD ?[facility] [id number] NoteHNO ID: [id number] Author: Maninder Aguilera DO Service: Hospital Medicine Author Type: Physician Type: Progress Notes Filed: 07/11/2021 10:58 AM Note Text: DEPARTMENT OF HOSPITAL MEDICINE PROGRESS NOTE SERVICE DATE: 07/11/2021 SERVICE TIME: 10:15 AM Hospital Medicine/Primary Attending: Maninder Aguilera DO NIGHT AND WEEKEND COVERAGE: MCADOO COVERAGE: : [phone], please contact via [employer] Nights: [phone], please page CC Hospitalist Night coverage pager [phone] Subjective INTERVAL HPI: pt seen at bedside. [...] tablet (BACTRIM DS,SEPTRA DS) 1 tablet ORAL MO-- - ursodiol 300 mg cap(s) (ACTIGALL) 300 [...] radial Lines, Drains, and Airways Line Peripheral 12/12/21 2328 Right Forearm 22 Gauge 3 days [...] VTE Prophylaxis/Anticoagulants 07/09/21 1245 pneumatic compression stockings (ky,mt) VTE Prophylaxis: VTE prophylaxis appropriate Disposition: Home Plan of care discussed with Provider, RN, Patient SIGNATURE: Maninder Aguilera DO PATIENT NAME: Chuckie Villalta DATE: July 11, 2021 TIME: 10:15 AMKane County Human Resource [id number] NoteHNO ID: [id number] Author: Saba Hills MD Service: Hospital Medicine Author Type: Physician Type: Progress Notes Filed: 07/11/2021 5:13 AM Note Text: HOSPITAL MEDICINE PROGRESS NOTE Saba Hills MD NIGHT AND WEEKEND COVERAGE: ERICK COVERAGE: Days: [phone], please contact via [employer] Nights: [phone], please page CC Hospitalist Night coverage pager [phone] Subjective HPI: Interval Events: has pain abdomen [...] sounds + EXTREMITY: : No ankle edema. VEGETABLE CUTTER: grossly normal. No focal deficit. Lines, Drains, [...] and GI GI is planning ERCP at [facility] as outpatient 2. History of hemochromatosis and [...] VTE Prophylaxis/Anticoagulants 07/09/21 1245 pneumatic compression stockings (ky,oh) VTE Prophylaxis: VTE prophylaxis appropriate. Advised to ambulate as tolerated. Plan of care discussed with: Patient, Family/Significant Other: at bedside, RN and Consultants: Neurology, Nephro, GI Saba Hills MD 07/10/2021 11:00 AM Please use Secure messaging to contact me between 7:30 AM and 4:30 PM Chuckie Villalta [id number] NoteHNO ID: [id number] Author: Jolynn Jaquez MD Service: Hospital Medicine Author Type: Physician Type: Progress Notes Filed: 07/09/2021 6:55 PM Note Text: HOSPITAL MEDICINE PROGRESS NOTE NIGHT AND WEEKEND COVERAGE: ERICK COVERAGE: Days: [phone], please contact via [employer] [employer] Nights: [phone], please page CC Hospitalist Night coverage pager [phone] Hospital Medicine/Primary Attending: Jolynn Jaquez MD Subjective [...] sounds + EXTREMITY: : No ankle edema. VEGETABLE CUTTER: grossly normal. No focal deficit. Lines, Drains, [...] outpatient. Patient to be scheduled at [facility]. Consider starting heparin subq for prophylaxis tomorrow [...] showed no acute process. Discussed with Neuro operational communication chief. Plan to follow up outpatient with Neuro, and consider outpatient MRI brain with contrast if needed. ? Medication and Non-Pharmacologic VTE Prophylaxis/Anticoagulants 07/09/21 1245 pneumatic compression stockings (ky,oh) VTE Prophylaxis: VTE prophylaxis appropriate. Advised to ambulate as tolerated. Plan of care discussed with: Patient, Family/Significant Other: at bedside, RN and Consultants: Neurology, Nephro, GI SIGNATURE: Jolynn Jaquez MD PATIENT NAME: Chuckie Villalta DATE: July 09, 2021 TIME: 4:16 [id number] NoteHNO ID: [id number] Author: Tani Woodward MD, PhD Service: Neurology [...] Woodward MD, PhD July 09, 2021 3:20 [facility] HospitalJkprqcbe84-87-0205 NoteHNO ID: [id number] Author: Isa San RDMS, RVT Service: Radiology Author Type: Environmental Protection Geologist Type: Progress Notes Filed: 07/08/2021 12:04 PM [...] San RDMS, ARLENE July 08, 2021 12:03 [facility] [id number] NoteHNO ID: [id number] Author: Jolynn Jaquez MD Service: Hospital Medicine Author Type: Physician Type: Progress Notes Filed: 07/08/2021 11:56 AM Note Text: HOSPITAL MEDICINE PROGRESS NOTE NIGHT AND WEEKEND COVERAGE: ERICK COVERAGE: Days: [phone], please contact via [employer] Nights: [phone], please page CC Hospitalist Night coverage pager [phone] Hospital Medicine/Primary Attending: Jolynn Jaquez MD Subjective [...] tenderness in EXTREMITY: : No ankle edema. VEGETABLE CUTTER: grossly normal. No focal deficit. Cranial nerves [...] is still waiting to be transferred to [facility]). Pain management consult. YOAN on [...] Villalta DATE: July 08, 2021 TIME: 11:30 [facility] CenterNmhqgksd58-91-3685 NoteHNO ID: [id number] Author: Jolynn Jaquez MD Service: Hospital Medicine Author Type: Physician Type: Progress Notes Filed: 07/07/2021 3:10 PM Note Text: HOSPITAL MEDICINE PROGRESS NOTE NIGHT AND WEEKEND COVERAGE: ERICK COVERAGE: Days: [phone], please contact via [employer] Nights: [phone], please page CC Hospitalist Night coverage pager [phone] Hospital Medicine/Primary Attending: Jolynn Jaquez MD Subjective HPI: Interval Events: HOT MOLDER and prn dilaudid helping with pain abdomen. [...] minimal palpation EXTREMITY: : No ankle edema VEGETABLE CUTTER: grossly normal. No focal deficit. Lines, Drains, and Airways Line Peripheral 07/05/21 1811 Right Antecubital 20 Gauge 1 day Peripheral 07/05/21 1923 Short Left Antecubital 20 Gauge 1 day Reviewed lines and needs to be continued: REASONS: Intravenous fluids Medications: Reviewed Diagnostic tests reviewed: Most recent imaging Most recent labs Assessment AND Plan Active Hospital Problems as of 07/07/2021 Noted - Resolved [facility] * (Principal) Acute pancreatitis 07/05/2021 - Present [...] input Patient waiting to be transferred to [facility]. Likely needs ERCP. Pain control with fentanyl HOT MOLDER, dilaudid prn Close monitoring ? Hemochromatosis 03/18/2018 [...] to get update regarding bed availability at [facility]. No bed assigned at [facility] yet. SIGNATURE: Jolynn Jaquez MD PATIENT NAME: Chuckie Villalta DATE: July 07, 2021 TIME: 2:59 [facility] [id number] NoteHNO ID: [id number] Author: Roma Horan MD Service: Hospital Medicine Author Type: Physician Type: Progress Notes Filed: 07/06/2021 12:47 PM Note Text: DEPARTMENT OF HOSPITAL MEDICINE PROGRESS NOTE SERVICE DATE: 07/06/2021 SERVICE TIME: 12:43 PM Hospital Medicine/Primary Attending: Roma Horan MD NIGHT AND WEEKEND COVERAGE: ERICK COVERAGE: Days: [phone], please contact via [employer] Nights: [phone], please page CC Hospitalist Night coverage pager [phone] Subjective INTERVAL HPI: c/o 8/10 abdominal pain. [...] INTRAVENOUS q 6 H PRN - fentaNYL HOT MOLDER 20 mcg/mL in NaCl 0.9% 100 mL [...] a noncontrast examination - Patient accepted to [facility] when bed available - IV fluids, NPO except meds - symptom management - Vanco, cipro, flagyl started in ED--c/w same for now. Leukocytosis resolved today -improving lipase - Consult GI, pending [facility] transfer, appreciate recs. May need ERCP -called [...] recipient (HCC) Assessment AND Plan: seen at [facility], admits some noncompliance with medications as of late, and rare alcohol use - transfer to [facility] for continued care when able - continue prograf. Will hold Actigall while NPO ? Primary hypertension Assessment AND Plan: elevated in ED, likely due to pain and missed doses - resume po antihypertensives as able - manage pain as able Medication and Non-Pharmacologic VTE Prophylaxis/Anticoagulants VTE Prophylaxis: VTE prophylaxis appr (more content not included)...[facility] [id number] NoteHNO ID: [id number] Author: Interface Note Service: ? Author Type: ? Type: Progress Notes Filed: 07/06/2021 2:53 AM Note Text: Epic Scheduled Downtime: 07/06/2021 1:00:00 AM to 07/06/2021 2:38:59 [facility]Nltmfbsq29-92-3953 NoteHNO ID: [id number] Author: Lisseth Raymond APRN.[facility] Service: Hospital Medicine Author Type: Nurse Practitioner Type: Plan of Care Filed: 07/05/2021 11:59 PM Note Text: Patient's pain not being controlled with prn dilaudid. Per Up to Date, HOT MOLDER recommended and fentanyl the safest drug to use for this purpose I discussed case with Dr Shook, I also discussed with the NOM and the pharmacist. A HOT MOLDER pump ordered. Lisseth Raymond APRN.[facility] HospitalPqwqaoqe46-00-2450 NoteHNO ID: [id number] Author: RT Alok(R) Service: ? Author Type: [...] BY: RT Alok(R) July 05, 2021 11:38 [facility] HospitalKtwronhq29-19-9899 NoteHNO ID: [id number] Author: FLORENTINO [facility]) Service: Radiology Author Type: Technologist Type: Progress [...] IV DATA: Not applicable SIGNED BY: RT Devorah(R) July 05, 2021 7:00 [facility] HospitalXosjzhxu23-82-7207 History of Past illness Narrative* Problem Noted [...] of this encounter (statuses as of 11/08/2021) [facility] Narrative* Problem [...] of this encounter (statuses as of 12/16/2021) [facility] Narrative* Problem [...] of this encounter (statuses as of 12/28/2021) [facility] Narrative* Problem [...] of this encounter (statuses as of 12/28/2021) [facility] Narrative* Problem [...] of this encounter (statuses as of 02/20/2022) [facility] Narrative* Problem [...] of this encounter (statuses as of 02/25/2022) [facility] Narrative* Problem [...] of this encounter (statuses as of 03/11/2022) [facility] Narrative* Problem [...] of this encounter (statuses as of 03/24/2022) [facility] Narrative* Problem [...] of this encounter (statuses as of 05/05/2022) [facility] Narrative* Problem [...] of this encounter (statuses as of 07/28/2022) [facility] Narrative* Problem [...] of this encounter (statuses as of 09/04/2022) [facility] Narrative* Problem [...] of this encounter (statuses as of 09/04/2022) [facility] Narrative* Problem [...] of this encounter (statuses as of 09/22/2022) [facility] note* Diagnosis Liver replaced by transplant (HCC)- Primary Liver replaced by transplant documented in this encounter [facility] note* Diagnosis Liver replaced by transplant (HCC)- Primary Liver replaced by transplant Need for prophylactic immunotherapy documented in this encounter [facility] note* Diagnosis Uncomplicated alcohol dependence (HCC) Other and unspecified alcohol dependence, unspecified drinking behavior documented in this encounter [facility] note* Diagnosis Liver transplant recipient (HCC)- Primary documented in this encounter [facility] note* Diagnosis 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 documented in this encounter [facility] noteNo assessment information availableLouis [facility] Work Phone: [facility] general Narrative - Reported* Type Description Date [...] abuse, in remission Surgical History Liver Transplant 2019 Surgical History ERCP DUCT STENT PLACEMENT 2020 Surgical History COLONOSCOPY 2019 Hospitalization History See Above [facility] Other Noitavonnesabj general Narrative - Reported* Type Description Date [...] abuse, in remission Surgical History Liver Transplant 2019 Surgical History ERCP DUCT STENT PLACEMENT 2019 Surgical History COLONOSCOPY 2019 Surgical History ERCP w/ stent replaced 11/2022 Hospitalization History See Above [facility] Other history general Narrative - Reported* Type Description Date [...] abuse, in remission Surgical History Liver Transplant 2019 Surgical History ERCP DUCT STENT PLACEMENT 2019 Surgical History COLONOSCOPY 2019 Surgical History ERCP w/ stent replaced 11/2022 Surgical History ERCP 02/2023 Hospitalization History See Above [facility] Other Hospital course Narrative No data available for this section [facility] No data available for this section [facility] HospitalReason for referral (narrative)* Outpatient Procedure (Routine) - Pending Review Specialty Diagnoses / Procedures Referred By Contac t Referred To Contact [facility] Diagnoses Biliary stricture Procedures ERCP ERCP DX COLLECTION SPECIMEN BRUSHING/WASHING Betina Quezada MD [address] [facility] [place] [address] [facility] [address] [place] [address] Referral ID Status Reason Start Date Expiration Date Visits Requested Visits Authorized [id number] Pending Review Auto-Generat ed Referral 12/02/2022 09/04/2023 1 1 [facility] Summary Purpose Family History No Family History Records Found Relationship Condition Age at Onset Recorded Date/T sowmya father Malignant neoplasm of colon Unknown Hypertension Unknown mother Hypertension Unknown Myocardial infarction Unknown brother Epilepsy Unknown Advance Directives No Advanced Directives Records FoundDocuments on File Type Date Recorded 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 Advance Directive(s) 10/30/2021 12:47 PM Advance Directive(s) 07/05/2021 6:47 PM Advance Directive(s) 07/16/2020 12:03 PM Advance Directive(s) 05/02/2020 10:37 AM Advance Directive(s) 07/10/2019 5:35 PM Advance Directive(s) 01/21/2019 3:11 PM Advance Directive(s) 10/06/2018 10:21 AM Advance Directive(s) 07/13/2018 6:11 AM Documents on File Type Date Recorded 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 Advance Directive(s) 10/30/2021 12:47 PM Advance Directive(s) 07/05/2021 6:47 PM Advance Directive(s) 07/16/2020 12:03 PM Advance Directive(s) 05/02/2020 10:37 AM Advance Directive(s) 07/10/2019 5:35 PM Advance Directive(s) 01/21/2019 3:11 PM Advance Directive(s) 10/06/2018 10:21 AM Advance Directive(s) 07/13/2018 6:11 AM Documents on File Type Date Recorded 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 Advance Directive(s) 10/06/2018 10:21 AM Latest Code Status on File Code Status Date Activated Date Inactivated Comments Full Code 09/01/2022 12:05 AM Full Code Order Discussed With: Patient Documents on File Type Date Recorded 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 Advance Directive(s) 10/06/2018 10:21 AM Latest Code Status on File Code Status Date Activated Date Inactivated Comments Full Code 09/01/2022 12:05 AM Latest Code Status on File Code Status Date Activated Date Inactivated Comments Full Code 09/01/2022 12:05 AM 09/05/2022 8:59 PM Advance Directive Response Recorded Date/ Time Advance Directives No February 28, 2 024 8:54am Reason for Referral Specialty Diagnoses / Procedures Referred By Contac t Referred To Contact CT IMAGING Diagnoses Alcohol-induced acute pancreatitis, unspecified complication status Procedures CT ABDOMEN W IVCON CT ABDOMEN W/CONTRAST Aidan Larios MD [address] [place] [address] Ct Imaging Referral ID Status Reason Start Date Expiration Date Visits Requested Visits Authorized [id number] Pending Review Auto-Generat ed Referral 12/24/2021 01/09/2023 1 1 Referral ID Status Reason Start Date Expiration Date V isits Requested Visits Authorized [id number] Closed Auto-Generated Referral Patient Cleared - INN Insurance Found 12/24/2021 01/09/2023 1 1 Chief Complaint and Reason for Visit Chief Complaint right foot pain Additional Source Comments (unrecognized sect ion and content) No Status Records FoundNo Status Records FoundNo Status Records FoundNo Status Records FoundNo Status Records FoundNo Status Records FoundNo Status Records Found INFORMATION SOURCE (unrecogn ized section and content) DATE CREATED AUTHOR 12/20/[address] [facility] DATE CREATED AUTHOR AUTHOR'S ORGANIZ ATION 07/13/2021 [facility] DATE CREATED AUTHOR AUTHOR'S ORGANIZ ATION 08/18/2021 [facility] DATE CREATED AUTHOR AUTHOR'S ORGANIZ ATION 11/09/[address] [facility] DATE CREATED AUTHOR AUTHOR'S ORGANIZ ATION 03/20/2023 [facility] DATE CREATED AUTHOR AUTHOR'S ORGANIZ ATION 06/28/2023 [facility] DATE CREATED AUTHOR AUTHOR'S ORGANIZ ATION 03/23/2024 [facility] Source Comments (unrecognize d section and content) In the event this informatio n is protected by the Federal Confidentiality of Alcohol and Drug Abuse Patient Records regulations: The Federal rules restrict any use of the information to criminally investigate or prosecute any alcohol or drug abuse patient.[facility] CenterIn the event this information is protected by the Federal Confidentiality of Alcohol and Drug Abuse Patient Records regulations: The Federal rules restrict any use of the information to criminally investigate or prosecute any alcohol or drug abuse patient.[facility] CenterIn the event this information is protected by the Federal Confidentiality of Alcohol and Drug Abuse Patient Records regulations: The Federal rules restrict any use of the information to criminally investigate or prosecute any alcohol or drug abuse patient.[facility] CenterIn the event this information is protected by the Federal Confidentiality of Alcohol and Drug Abuse Patient Records regulations: The Federal rules restrict any use of the information to criminally investigate or prosecute any alcohol or drug abuse patient.[facility] CenterIn the event this information is protected by the Federal Confidentiality of Alcohol and Drug Abuse Patient Records regulations: The Federal rules restrict any use of the information to criminally investigate or prosecute any alcohol or drug abuse patient.[facility] CenterIn the event this information is protected by the Federal Confidentiality of Alcohol and Drug Abuse Patient Records regulations: The Federal rules restrict any use of the information to criminally investigate or prosecute any alcohol or drug abuse patient.[facility] CenterIn the event this information is protected by the Federal Confidentiality of Alcohol and Drug Abuse Patient Records regulations: The Federal rules restrict any use of the information to criminally investigate or prosecute any alcohol or drug abuse patient.[facility] CenterIn the event this information is protected by the Federal Confidentiality of Alcohol and Drug Abuse Patient Records regulations: The Federal rules restrict any use of the information to criminally investigate or prosecute any alcohol or drug abuse patient.[facility] CenterIn the event this information is protected by the Federal Confidentiality of Alcohol and Drug Abuse Patient Records regulations: The Federal rules restrict any use of the information to criminally investigate or prosecute any alcohol or drug abuse patient.[facility] CenterIn the event this information is protected by the Federal Confidentiality of Alcohol and Drug Abuse Patient Records regulations: The Federal rules restrict any use of the information to criminally investigate or prosecute any alcohol or drug abuse patient.[facility] CenterIn the event this information is protected by the Federal Confidentiality of Alcohol and Drug Abuse Patient Records regulations: The Federal rules restrict any use of the information to criminally investigate or prosecute any alcohol or drug abuse patient.[facility] CenterIn the event this information is protected by the Federal Confidentiality of Alcohol and Drug Abuse Patient Records regulations: The Federal rules restrict any use of the information to criminally investigate or prosecute any alcohol or drug abuse patient.[facility] CenterIn the event this information is protected by the Federal Confidentiality of Alcohol and Drug Abuse Patient Records regulations: The Federal rules restrict any use of the information to criminally investigate or prosecute any alcohol or drug abuse patient.[facility] CenterIn the event this information is protected by the Federal Confidentiality of Alcohol and Drug Abuse Patient Records regulations: The Federal rules restrict any use of the information to criminally investigate or prosecute any alcohol or drug abuse patient.[facility] Reason for Visit (unrecogniz ed section and content) Reason Comments Radiology CT Specialty Diagnoses / Procedures Referred By Contac t Referred To Contact CT IMAGING Diagnoses Alcohol-induced acute pancreatitis, unspecified complication status Procedures CT ABDOMEN W IVCON CT ABDOMEN W/CONTRAST Aidan Larios MD [address] [place] [address] Ct Imaging Referral ID Status Reason Start Date Expiration Date V isits Requested Visits Authorized [id number] Closed Auto-Generated Referral Patient Cleared - INN Insurance Found 12/24/2021 01/09/2023 1 1 Reason Comments Hospital Follow Up Reason Comments Established Patient Reason Comments Covid19 Concern Reason Comments Reminder To Have Labs Drawn Reason Comments Refill Request Reason Comments Endoscopy Call Reason Comments Care Coordination [facility] Care Teams (unrecognized sec tion and content) [employer] Tender Relationship Specialty Start Date End Date Luis Abdalla, DO [address] [place] [address] PCP - General Internal Medicine 01/12/18 Angie Fernandes Jr. [address] [address] Referring Gastroenterology 01/12/18 Nadja Spencer RN [facility] [address] [place] [address] Transplant Center 08/31/19 [employer] Relationship Specialty Start Date End Date Luis Abdalla, DO [address] [place] [address] PCP - General Internal Medicine 01/12/18 Angie Fernandes Jr. [address] [address] Referring Gastroenterology 01/12/18 Nadja Spencer RN [facility] [address] [place] [address] Transplant Center 08/31/19 [employer] Machine Tender Relationship Specialty Start Date End Date Luis Abdalla, DO [address] [place] [address] PCP - General Internal Medicine 01/12/18 Angie Fernandes Jr. [address] [address] Referring Gastroenterology 01/12/18 Nadja Spencer RN [facility] [address] [place] [address] Transplant Center 08/31/19 [employer] Machine Tender Relationship Specialty Start Date End Date Luis Abdalla, DO [address] [place] [facility] [place] [address] PCP - General Internal Medicine 01/12/18 Angie Fernandes Jr. [address] [address] Referring Gastroenterology 01/12/18 Nadja Spencer RN [facility] [address] [place] [address] Transplant Center 08/31/19 [employer]er Machine Tender Relationship Specialty Start Date End Date Luis Abdalla, DO [address] [place] [facility] [place] [address] PCP - General Internal Medicine 01/12/18 Angie Fernandes Jr. [address] [address] Referring Gastroenterology 01/12/18 Nadja Spencer, BATOOL [facility] [address] [place] [address] Transplant Center 08/31/19 [employer] Machine Tender Relationship Specialty Start Date End Date Luis Abdalla, DO [address] [place] [facility] [place] [address] PCP - General Internal Medicine 01/12/18 Angie Fernandes Jr. [address] [address] Referring Gastroenterology 01/12/18 Nadja Spencer RN [facility] [address] [place] [address] Transplant Center 08/31/19 [employer]er Machine Tender Relationship Specialty Start Date End Date Luis Abdalla, DO [address] [place] [facility] [place] [address] PCP - General Internal Medicine 01/12/18 Angie Fernandes Jr., DO [address] [address] Referring Gastroenterology 01/12/18 Nadja Spencer RN [facility] [address] [place] [address] Transplant Center 08/31/19 [employer]er Machine Tender Relationship Specialty Start Date End Date Luis Abdlala, DO [address] [place] [address] PCP - General Internal Medicine 01/12/18 Angie Fernandes Jr., DO [address] [address] Referring Gastroenterology 01/12/18 Nadja Spencer RN [facility] [address] [place] [address] Transplant Center 08/31/19 [employer]er Machine Tender Relationship Specialty Start Date End Date Luis Abdalla, DO [address] [place] [address] PCP - General Internal Medicine 01/12/18 Angie Fernandes Jr., DO [address] [address] Referring Gastroenterology 01/12/18 Nadja Spencer RN [facility] [address] [place] [address] Transplant Center 08/31/19 [employer]er Machine Tender Relationship Specialty Start Date End Date Luis Abdalla, DO [address] [place] [address] PCP - General Internal Medicine 01/12/18 Angie Fernandes Jr., DO [address] [address] Referring Gastroenterology 01/12/18 Nadja Spencer RN [facility] [address] [place] [address] Transplant Center 08/31/19 Team Status: Active Member Role Status Dates Luis Abdalla DO Primary Care Provider Active Team Status: Inactive Member Role Status Dates Luis Abdalla DO Primary Care Provide r, Attending Provider Active Start: February 29, 2024 End: February 29, 2024 Goals (unrecognized section and content) Goals may be documented in a n alternate section FOR RECORDS PERTAINING TO PATIENTS WHO ARE [...] BE BASED ON THE PRIMARY CLINICAL RECORDS. [facility]. provides no warranty or guarantee of the accuracy or completeness of information in this document.
[2024-04-04 07:25] VITALS: BP 165/121; PULSE 102; TEMP 36.3; O2SAT 98
[2024-04-04 08:13] VITALS: BP 170/121; BP 176/106; PULSE 88; PULSE 95; O2SAT 98
[2024-04-04] MEDS: 0.9 % SODIUM CHLORIDE 10 ML SYRINGE - SALINE FLUSH INJ (08:17)
--- NOTE | 2024-04-04 08:17 | W.PM.PROCNOT ---
Date of procedure: 04/04/24 Pre-op diagnosis: Pain due to lumbar stenosis with neurogenic claudication Post-op diagnosis: same as pre-op Procedure: Procedure: Bilateral L5-S1 transforaminal epidural steroid injection Medications: Bupivacaine 0.25% 2cc, lidocaine 2% 1cc, kenalog 80mg The patient was seen and examined in the preoperative holding area.? Informed consent was obtained and placed on the chart.? Patient was brought to the medical procedure unit and placed in the prone position where a timeout was completed verifying the correct patient, procedure site, position, and planned special equipment using sterile aseptic technique.? Under direct fluoroscopic visualization a 25-gauge Quincke tipped spinal needle was advanced at level left L5-S1 to the designated neural foramen where contrast dye was injected to show adequate spread.? There was no evidence of vascular or adverse uptake.? Epidural spread was appreciated.? The above-mentioned injectate was then placed in a 1.5 mL aliquot preceded by negative aspiration.? The needle was removed. The same procedure, at the same level, was completed on the opposite side. ? Patient was taken to the postprocedural recovery area and monitored for an appropriate length of time before found suitable for discharge in the accompaniment of a responsible adult. Anesthesia: Local Surgeon: Vicente Thompson Pathology: none sent Condition: stable Disposition: no change
[2024-04-04] MEDS: TRIAMCINOLONE ACETONIDE 40 MG/ML VIAL 80 MG INJ (08:18)
[2024-04-04] MEDS: IOHEXOL 240 MG/ML - 10 ML VIAL 24 MG INJ (08:18)
[2024-04-04] MEDS: BUPIVACAINE HCL 0.25% PF 25 MG/10 ML VIAL INJ (08:18)
[2024-04-04] MEDS: LIDOCAINE HCL 2% 400 MG/20 ML MDV INJ (08:18)
== END 2024-04-04 08:20 | disposition home or self-care (01) ==
LOC: SURGOUT 07:15
PROVIDERS: PCP Internal Medicine; Visit Provider Anesthesiology
DX: M48.062 Spinal stenosis, lumbar region with neurogenic claudication (principal)
CPT/HCPCS: 64483; J0665; J3301; Q9966

== ENCOUNTER 2024-04-14 12:42 | Outpatient (OUT) | payer MEDICARE, MEDICAID, SELFPAY ==
--- OUTSIDE RECORDS SUMMARY | 2024-04-14 12:56 | XMS_ITS | CCD ---
Author Organization [facility] CliniSyaz Care Team Providers Care Fur Vault Attendant Name Role Phone DR LUIS ABDALLA Attending [...] Provider Dena Pineda DO, David L Unavailable Nadja [...] Referring Unavailable LUIS ABDALLA Primary Care Physician [phone] Wilmer Rosenberg Attending Unavailable Donna GIRON, Vicente Saavedra Attending Unavailable Donna GIRON, Vicente Saavedra Attending Unavailable Donna GIRON, Vicente Saavedra Attending Unavailable Donna GIRON, Vicente Saavedra Attending Unavailable Donna GIRON, Vicente Saavedra Attending Unavailable Allergies Allergy Classification Reported Allergen(s) Allergy Type Date of Onset Reaction(s) Facility Penicillins (antibiotic) (1 source) Penicillin Drug Allergy [facility] Repository (17 sources) Midazolam; Translations: [MIDAZOLAM] Drug Allergy 1 Other: See Comments [facility] (7 sources) Penicillins; Translations: [PENICILLINS] Drug Allergy 4 Unknown, Swelling [facility] Work Phone: (16 sources) Seasonal allergy; Translations: [SEASONAL ALLERGIES] Propensity to adverse reactions 8 Unknown [facility] (10 sources) Penicillins Drug Allergy Unknown [facility] Work Phone: (4 sources) penicillAMINE Drug Allergy 4 Unknown, Unknown Reaction [facility] (2 sources) Penicillin; Translations: [penicillin] Drug Allergy Urticaria (disorder) [facility] Medications Current Medications Medication Drug Class(es) Dates [...] on above: Take 1 tablet by sylvester twice daily. cyclobenzaprine hydrochloride 10 mg oral [...] Active 100 MG PO Three times daily 25 05February 29, 2024 12:00am irbesartan 75 mg oral [...] tablet TAKE 1 TABLET BY MOUTH EVERY THURSDAY,THURSDAY, IDAY. 13 tablet 11 09/02/2021 Suspended Start: [...] for Treatmenton 05-28 Consent for Treatment [id number] IFF [facility] Discharge Instructionson Discharge Instructions [id number]#[id number] 0TIFF [facility] ED Clinical Summaryon 2022 ED Clinical Summary (Inserted Image. Suzanne ble to display) [address] [address] ED Clinical Summary Person Information Name: CHUCKIE VILLALTA Marissa/[facility] Age: 37 Years : 1985 Sex: Male Language: Ghanaian PCP: LUIS ABDALLA DO Marital Status: Phone: [phone] Visit Id: Visit Reason: Foot pain-swelling; PAIN [...] 06/20/2023 18:04:25 06/20/2023 18:04:25 06/20/2023 18:04:25 ADDRESS: [address] [place] [phone] PHYS DOC NOTES: MEDICAL INFORMATION: Prescriptions Given: PATIENT EDUCATION INFORMATION: Instructions: Foot Sprain; Elastic Bandage and RICE Therapy; Ankle Sprain, Phase II Rehab; Ankle Sprain, Phase I Rehab; Ankle Sprain Follow up: With: Address: When: LUIS ABDALLA [facility] [place] [address] [facility] ([place] In 3 days 06/23/2023 Comments: Follow-up with your primary care provider in 3 to 5 days. If symptoms worsen, do not improve, or new symptoms arise please report back to emergency department for further evaluation. DIAGNOSIS: Left ankle sprain; Sprain of left foot [facility] ED Note-Physicianon 06-20-20 ED Note-Physician Basic [...] and Complexity of Problems Differential Diagnosis: [] [facility] Data External documents reviewed: [] My EKG [...] In 3 days 06/23/2023 EST [address] [place] [address]- Business (1) Additional Instructions: Follow-up with your primary care provider in 3 to 5 days. If symptoms worsen, do not improve, or new symptoms arise please report back to emergency department for further evaluation. Patient Education Foot Sprain Elastic Bandage and RICE Therapy Ankle Sprain, Phase II Rehab Ankle Sprain, Phase I Rehab Ankle Sprain Attestation Patient seen and evaluated by the physician operations and intelligence assistant. Attending physician was present in the emergency department and supervised care. This visit was performed by both the physician and an APC. I performed all aspects of the MDM as documented. This report was transcribed using voice recognition software. Every effort was made to ensure accuracy, however, inadvertently computerized manager architecture mistakes may be present. Appropriate healthcare PPE was used in evaluating this patient. The patient was placed in a mask. The healthcare provider was wearing mask, gloves, and utilizing proper hand hygiene. All equipment was properly cleansed. Problem List/Past Medical History Ongoing No qualifying data Historical No qualifyi (more content not included)... [facility] Comment on above: Result Comment: Elec tronically Signed By: Dilan Adames PA-C\.br\Date and Time Signed: 06/20/23 18:38 EST\.br\Electronically Co-Signed By: Hajdari Wilmer Song.abril\Date and Time Co-Signed: 06/20/23 19:32 EST ED [...] on your foot. General instructions ? Take otob-qkn-pxfdojn and prescription medicines only as told by your health care provider. ? When you can walk without pain, wear supportive shoes t (more content not included)... [facility] ED Patient Summaryon 023 ED Patient Summary (Inserted Image. Suzanne ble to display) [address] [address] Patient Discharge Instructions Person Information Name: CHUCKIE VILLALTA Age: 37 Years MRN: [id number] Arrival Date: 06/20/2023 15:53:53 Discharge Diagnosis: Left ankle sprain; Sprain of left foot Primary Care Physician: LUIS ABDALLA DO Provider Information Primary Provider: Wilmer Rosenberg M.D. Advanced Germ Drier:None The exam and treatment you received in the Emergency Department were for an urgent problem and are not intended as complete care. It is important that you follow up with a doctor, nurse practitioner, or physician?s operations and intelligence assistant for ongoing care. If your symptoms become worse or you do not improve as expected and you are unable to reach your usual health care provider, you should return to the Emergency Department. We are available 24 hours a day. JUVE CHUCKIE Shivani has been given the following list of patient education materials, prescriptions and follow-up instructions: Follow-up Instructions: With: Address: When: LUIS ABDALLA [address] [place] [address] Business (1) In 3 days 06/23/2023 Comments: [...] opioids can be used to help relieve bapykmwf-il-vgnsav pain and are often prescribed following a [...] Administration (www.fda.gov/[place]ali (more content not included)... [facility] XR Ankle 3+ Views Lefton XR [...] mGy = na DAP = na [facility] XR Foot 3+ Views Lefton 05-28 [...] Rosenberg FINAL REPORT Dictated: 06/20/2023 5:29 pm Signer Luis GIRON Signed (Electronic Signature): 06/20/2023 5:29 pm Signed by: Signer Luis GIRON Transcribed by: DAVID Technologist: PTARICIA Technical Comments Radiation Dose: Ka,r in mGy = na DAP = na [facility] ANES POSTPROC EVALon 023 ANES POSTPROC EVAL HNO ID: [id number] Author: Delmer Webber MD Service: ? Author [...] Quezada MD; Delmer Webber MD; Henrietta Brewster APRN.CHANGE MANAGEMENT EXPERT Responsible Provider: Delmer Webber MD Anesthesia Type: [...] March 19, 2023 TIME: 10:05 AM CSN: [id number] [facility] ANES PRE-OPon 03-19-2023 ANES PRE-OP HNO ID: [id number] Author: Delmer Webber MD Service: ? Author Type: Anesthesiologist Type: Anesthesia Preprocedure Evaluation Filed: 03/19/2023 8:02 AM Note Text: ANESTHESIOLOGY DAY OF SURGERY NOTE : 1985 Procedure Information Date/Time: 03/19/23 0800 Scheduled providers: Betina Quezada MD; Delmer Webber MD; Henrietta Brewster APRN.CHANGE MANAGEMENT EXPERT Procedure: ERCP Location: Gastroenterology Estimated body mass [...] and consent discussed: yes. Patient / Responsible Republican agrees to proceed: yes Patient / Surrogate [...] March 19, 2023 TIME: 8:02 AM CSN: [id number] [facility] Gas and Carbon monoxide pane l (BldV)on 03-19-2023 BASE DEFICIT, VENOUS -3 mmol/L Low -2-0 [facility] Comment on above: Order Comment: Noe madrdi Type: BLOOD SPECIMEN Ordering Facility: [facility] Address: [address] [id number] Performed By: #### 5 763-8, COPPER #### [facility] CLIA [id number] [address] [place] [address] [place] Body temperature 98.24 [degF] Normal [facility] Comment on above: Order Comment: Noe madrid Type: BLOOD SPECIMEN Ordering Facility: [facility] Address: [address] [address] Performed By: #### 5 763-8, COPPER #### [facility] CLIA [id number] [address] [place] [address] [place] Calcium.ionized (Bld) [Mass/Vol] 1.24 mmol/L Normal 1.08-1.30 [facility] Comment on above: Order Comment: Speci men Type: BLOOD SPECIMEN Ordering Facility: [facility] Address: [address] [place] [address] Performed By: #### 5 763-8, COPPER #### [facility] CLIA [id number] [address] [place] [address] [place] Calcium.ionized adjusted to pH 7.4 (BldA) [Moles/Vol] 1.23 mmol/L Normal 1.08-1.30 [facility] Comment on above: Order Comment: Speci men Type: BLOOD SPECIMEN Ordering Facility: [facility] Address: [address] [place] [address] Performed By: #### 5 763-8, COPPER #### [facility] IA [id number] [address] [place] [address] [place] Carboxyhemoglobin (BldV) [Mass fraction] 1.2 % Normal 0.0-2.0 [facility] Comment on above: Order Comment: Speci men Type: BLOOD SPECIMEN Ordering Facility: [facility] Address: [address] [place], [place] [id number] Result Comment: Carb oxyhemoglobin Reference Range for Smokers: 2.0-8.0% Performed By: #### 5 763-8, COPPER #### [facility] CLIA [id number] [address] [place] [address] [place] CO2 (BldV) [Partial pressure] 36 mm[Hg] Low 42-55 [facility] Comment on above: Order Comment: Speci men Type: BLOOD SPECIMEN Ordering Facility: [facility] Address: [address] [place], [place] [phone] Performed By: #### 5 763-8, COPPER #### [facility] CLIA [id number] [address] [place] [address] [place] CO2 adjusted to patient's actual temperature (BldV) [Partial pressure] 35 mmHg Low 42-55 [facility] Comment on above: Order Comment: Speci men Type: BLOOD SPECIMEN Ordering Facility: [facility] Address: [address] [place], [place] [id number] Performed By: #### 5 763-8, COPPER #### [facility] CLIA [id number] [address] [place] [address] [place] Glucose [Mass/Vol] 124 mg/dL High 60-105 [facility] Comment on above: Order Comment: Speci men Type: BLOOD SPECIMEN Ordering Facility: [facility] Address: [address] [place], [place] [phone] Performed By: #### 5 763-8, COPPER #### [facility] CLIA [id number] [address] [place] [address] [place] HCO3 (Bld) [Moles/Vol] 21 mmol/L Low 24-28 [facility] Comment on above: Order Comment: Speci men Type: BLOOD SPECIMEN Ordering Facility: [facility] Address: [address] [place], [place] [phone] Performed By: #### 5 763-8, COPPER #### [facility] CLIA [id number] [address] [place] [address] [place] Hematocrit (Bld) [Volume fraction] 41.1 % Normal 39.0-51.0 [facility] Comment on above: Order Comment: Speci men Type: BLOOD SPECIMEN Ordering Facility: [facility] Address: [address] [place], [place] [phone] Performed By: #### 5 763-8, COPPER #### [facility] CLIA [id number] [address] [place] [address] [place] Hemoglobin (Bld) [Mass/Vol] 13.4 g/dL Normal 13.0-17.0 [facility] Comment on above: Order Comment: Speci men Type: BLOOD SPECIMEN Ordering Facility: [facility] Address: [address] [place], [place] [phone] Performed By: #### 5 763-8, COPPER #### [facility] CLIA [id number] [address] [place] [address] [place] Lactate [Moles/Vol] 1.9 mmol/L Normal 0.5-2.2 [facility] Comment on above: Order Comment: Speci men Type: BLOOD SPECIMEN Ordering Facility: [facility] Address: [address] [place], [place] [phone] Performed By: #### 5 763-8, COPPER #### [facility] CLIA [id number] [address] [place] [address] [place] Methemoglobin (Bld) [Mass fraction] 0.8 % Normal 0.0-1.5 [facility] Comment on above: Order Comment: Speci men Type: BLOOD SPECIMEN Ordering Facility: [facility] Address: [address] [place], [place] [phone] Performed By: #### 5 763-8, COPPER #### [facility] CLIA [id number] [address] [place] [address] [place] O2 THERAPY RA=Room Air [facility] Comment on above: Order Comment: Speci men Type: BLOOD SPECIMEN Ordering Facility: [facility] Address: [address] [place], [place] [phone] Performed By: #### 5 763-8, COPPER #### [facility] CLIA [id number] [address] [place] [address] [place] Oxygen (BldV) [Partial pressure] 69 mm[Hg] High 35-45 [facility] Comment on above: Order Comment: Speci men Type: BLOOD SPECIMEN Ordering Facility: [facility] Address: [address] [place] [address] Performed By: #### 5 763-8, COPPER #### [facility] CLIA [id number] [address] [place] [address] [place] Oxygen adjusted to patient's actual temperature (BldV) [Partial pressure] 68 mmHg High 35-45 [facility] Comment on above: Order Comment: Speci men Type: BLOOD SPECIMEN Ordering Facility: [facility] Address: [address] Performed By: #### 5 763-8, COPPER #### [facility] CLIA [id number] [address] [place] [address] [place] Oxygen saturation in Venous blood 94 % High 60-85 [facility] Comment on above: Order Comment: Speci men Type: BLOOD SPECIMEN Ordering Facility: [facility] Address: [address] Performed By: #### 5 763-8, COPPER #### [facility] CLIA [id number] [address] [place] [address] [place] Oxyhemoglobin (BldV) [Mass fraction] 92 % High 60-85 [facility] Comment on above: Order Comment: Speci men Type: BLOOD SPECIMEN Ordering Facility: [facility] Address: [address] Performed By: #### 5 763-8, COPPER #### [facility] CLIA [id number] [address] [place] [address] [place] pH (BldV) 7.39 [pH] Normal 7.32-7.42 [facility] Comment on above: Order Comment: Speci men Type: BLOOD SPECIMEN Ordering Facility: [facility] Address: [address] Performed By: #### 5 763-8, COPPER #### [facility] CLIA [id number] [address] [place] [address] [place] pH adjusted to patient's actual temperature (BldV) 7.39 Normal 7.32-7.42 [facility] Comment on above: Order Comment: Speci men Type: BLOOD SPECIMEN Ordering Facility: [facility] Address: [address] [place] [address] Performed By: #### 5 763-8, COPPER #### [facility] CLIA [id number] [address] [place] [address] [place] Potassium [Moles/Vol] 4.1 mmol/L Normal 3.5-5.0 [facility] Comment on above: Order Comment: Speci men Type: BLOOD SPECIMEN Ordering Facility: [facility] Address: [address] [place] [address] Performed By: #### 5 763-8, COPPER #### [facility] CLIA [id number] [address] [place] [address] [place] Sodium [Moles/Vol] 140 mmol/L Normal 136-144 [facility] Comment on above: Order Comment: Speci men Type: BLOOD SPECIMEN Ordering Facility: [facility] Address: [address] [place] [address] Performed By: #### 5 763-8, COPPER #### [facility] CLIA [id number] [address] [place] [address] [place] NURSING PROGon 03-19-2023 NURSING PROG HNO ID: [id number] Author: Blanca Kulkarni RN Service: Nursing Author [...] None Electronically Signed By: Blanca Kulkarni RN [facility] NURSING PROG HNO ID: [id number] Author: Indu Meza RN Service: Nursing Author [...] By: Indu Meza RN In Department: GASTROENTEROLOGY [facility] [place] 03-12-2023 [facility] Telephone ([facility]) CHUCKIE VILLALTA ([id number]) 1985 M Date Time Provider Department 03/12/23 YAMILET YAN [facility] During your visit today, we recorded the [...] have family/friend present for procedure transport home: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 Any barriers to Patient learning: Patient/Patient Director Product Development responded appropriately on phone. Type of instruction given: Verbal by telephone contact. Yamilet Yan RN Allergies As of Date: 03/12/2023 Noted Allergy Reaction PENICILLINS 16 - Unknown Comments: Skin test positive 09/01/18 MIDAZOLAM 02/18/2021 14 - Other: See Comments SEASONAL ALLERGIES 06/29/2018 16 - Unknown Date Reviewed: 12/11/2022 Reviewed by: Aicha Bragg RN - Fully Assessed Reason for Visit: Appointment Confirmation [0223] Prescriptions as of 03/12/2023 - tacrolimus IR [...] Encounter Status:Closed by YAMILET YAN on 03/12/23 [facility] ANES POSTPROC EVALon 023 ANES POSTPROC EVAL HNO ID: [id number] Author: Angie Lloyd MD Service: ? Author [...] December 11, 2022 TIME: 12:57 PM CSN: [id number] [facility] ANES PRE-OPon 12-11-2022 ANES PRE-OP HNO ID: [id number] Author: Angie Lloyd MD Service: ? Author [...] and consent discussed: yes. Patient / Responsible Republican agrees to proceed: yes Patient / Surrogate [...] December 11, 2022 TIME: 9:21 AM CSN: [id number] [facility] NURSING PROGon 12-11-2022 NURSING PROG HNO ID: [id number] Author: Aicha Bragg RN Service: ? Author [...] None Electronically Signed By: Aicha Bragg RN [facility] NURSING PROG HNO ID: [id number] Author: Tatiana Ray RN Service: Nursing Author [...] Tatiana Ray RN In Department: GASTROENTEROLOGY [facility] [place] 11-04-2022 CNPN Telephone (LU4C) CHUCKIE VILLALTA ([id number]) 1985 M TRN Date Time Provider Department 11/04/22 MIMI CLEMENS [facility] During your visit today, we recorded the following information about you: SHAQ Price 11/04/2022 11:06 AM Signed DEONDRE attempted to contact the patient to discuss the [facility] clinic. DEONDRE left a VM [...] Fully Assessed Reason for Visit: Care Coordination [3908] Cmt: [facility] clinic Prescriptions as of 11/04/2022 [...] Encounter Status:Closed by MIMI CLEMENS on 11/04/[address] [facility] 09-22-2022 CNP Telephone (GASTA5) CHUCKIE VILLALTA ([id number]) 1985 M TRN Date Time Provider Department 09/22/22 RASHIDA LIRIANO GASTA5 During your visit today, we recorded the following information about you: Rashida Liriano RN 09/22/2022 11:33 AM Signed Called and left patient regarding referral to [facility]. Call back number provided. Finale D[employer]ert[employer] message with the details also sent. Rashida Liriano RN September 22, 2022 11:32 AM Allergies As of Date: 09/22/2022 Noted Allergy Reaction PENICILLINS 16 - Unknown Comments: Skin test positive 09/01/18 MIDAZOLAM 02/18/2021 14 - Other: See Comments SEASONAL ALLERGIES 06/29/2018 16 - Unknown Date Reviewed: 09/04/2022 Reviewed by: Tova Wilson RN - Fully Assessed Reason for Visit: Care Coordination [4521] Cmt: [facility] Prescriptions as of 09/22/2022 - tacrolimus IR [...] Encounter Status:Closed by RASHIDA LIRIANO on 09/22/22 [facility] CASE MANAGEMon 09-05-2022 CASE MANAGEM HNO ID: [id number] Author: JEY Felton Service: ? Author Type: Conference Concierge Type: Care Mgt Progress Note Filed: 09/05/2022 [...] DEONDRE NOVA also provided Pt with the aa.Devver website for him to find local and virtual AA meetings in his area. DEONDRE NOVA encouraged Pt to reach back out to DEONDRE with any questions and/or concerns regarding community resources for alcohol abuse prior to his D/C from the hospital if needed* For weekend CM needs, please contact on-call CM at: [facility] [employer] - [phone] H [employer] - [phone] J [employer] - 74949 M [employer] - [phone] SIGNATURE: JEY Jim PATIENT NAME: Chuckie Villalta DATE: September 05, 2022 TIME: 9:30 AM PAGER/CONTACT #: [facility] CBC panel Auto (Bld)on 09-05 Erythrocyte distribution width (RBC) [Ratio] 17.1 % High 11.5-15.0 [facility] Comment on above: Order Comment: Speci men Type: BLOOD SPECIMEN Ordering Facility: [facility] Address: [address] [place], [place] [id number] Performed By: #### 5 763-8, COPPER #### [facility] CLIA [id number] [address] [facility] [address] [facility] Hematocrit (Bld) [Volume fraction] 37.4 % Low 39.0-51.0 [facility] Comment on above: Order Comment: Speci men Type: BLOOD SPECIMEN Ordering Facility: [facility] Address: [address] Performed By: #### 5 763-8, COPPER #### [facility] CLIA [id number] [address] [place] [address] [place] Hemoglobin (Bld) [Mass/Vol] 12.8 g/dL Low 13.0-17.0 [facility] Comment on above: Order Comment: Speci men Type: BLOOD SPECIMEN Ordering Facility: [facility] Address: [address] Performed By: #### 5 763-8, COPPER #### [facility] CLIA [id number] [address] [place] [address] [place] MCH (RBC) [Entitic mass] 30.3 pg Normal 26.0-34.0 [facility] Comment on above: Order Comment: Speci men Type: BLOOD SPECIMEN Ordering Facility: [facility] Address: [address] Performed By: #### 5 763-8, COPPER #### [facility] CLIA [id number] [address] [place] [address] [place] MCHC (RBC) [Mass/Vol] 34.2 g/dL Normal 30.5-36.0 [facility] Comment on above: Order Comment: Speci men Type: BLOOD SPECIMEN Ordering Facility: [facility] Address: [address] Performed By: #### 5 763-8, COPPER #### [facility] CLIA [id number] [address] [place] [address] [place] MCV (RBC) [Entitic vol] 88.4 fL Normal 80.0-100.0 [facility] Comment on above: Order Comment: Speci men Type: BLOOD SPECIMEN Ordering Facility: [facility] Address: [address] Performed By: #### 5 763-8, COPPER #### [facility] CLIA [id number] [address] [place] [address] [place] Nucleated RBC (Bld) [#/Vol] 10*3/uL Normal <0.01 [facility] Comment on above: Order Comment: Speci men Type: BLOOD SPECIMEN Ordering Facility: [facility] Address: [address] [place], [place] [address] Performed By: #### 5 763-8, COPPER #### [facility] CLIA [id number] [address] [place] [address] [place] Platelet mean volume (Bld) [Entitic vol] 12.6 fL Normal 9.0-12.7 [facility] Comment on above: Order Comment: Speci men Type: BLOOD SPECIMEN Ordering Facility: [facility] Address: [address] [place], [place] [address] Performed By: #### 5 763-8, COPPER #### [facility] CLIA [id number] [address] [place] [address] [place] Platelets (Bld) [#/Vol] 61 10*3/uL Low 150-400 [facility] Comment on above: Order Comment: Speci men Type: BLOOD SPECIMEN Ordering Facility: [facility] Address: [address] [place], [place] [address] Result Comment: Resu lts checked and verified.No clot detected. Performed By: #### 5 763-8, COPPER #### [facility] CLIA [id number] [address] [place] [address] [place] RBC (Bld) [#/Vol] 4.23 10*6/uL Normal 4.20-6.00 [facility] Comment on above: Order Comment: Speci men Type: BLOOD SPECIMEN Ordering Facility: [facility] Address: [address] [place], [place] [address] Performed By: #### 5 763-8, COPPER #### [facility] CLIA [id number] [address] [facility] [place] [address] [place] WBC (Bld) [#/Vol] 4.92 10*3/uL Normal 3.70-11.00 [facility] Comment on above: Order Comment: Speci men Type: BLOOD SPECIMEN Ordering Facility: [facility] Address: [address] [place] [address] Performed By: #### 5 763-8, COPPER #### [facility] CLIA [id number] [address] [id number] [place] CNDSon 09-05-2022 CNDS HNO ID: [id number] Author: Minna Tilley MD Service: General Internal [...] DOPPLER COM (more content not included)... Normal [facility] Comprehensive metabolic 2000 panelon 09-05-2022 Albumin [Mass/Vol] 3.8 g/dL Low 3.9-4.9 [facility] Comment on above: Order Comment: Louiei mercy Type: BLOOD SPECIMENOrdering Facility: [facility] Address: [address] [place] [address] Performed By: #### 2 4323-8 ####[facility] [id number] [place] [address] [place] ALP [Catalytic activity/Vol] 94 U/L Normal 38-113 [facility] Comment on above: Order Comment: Louiei mercy Type: BLOOD SPECIMENOrdering Facility: [facility] Address: [address] [place] [address] Performed By: #### 2 4323-8 ####[facility] [id number] [place] [address] [place] ALT [Catalytic activity/Vol] 101 U/L High 10-54 [facility] Comment on above: Order Comment: Louiei mercy Type: BLOOD SPECIMENOrdering Facility: [facility] Address: [address] [address] Performed By: #### 2 4323-8 ####[facility] [id number] [place] [address] [place] Anion gap [Moles/Vol] 11 mmol/L Normal 9-18 [facility] Comment on above: Order Comment: Speci men Type: BLOOD SPECIMENOrdering Facility: [facility] Address: [address] [place] [address] Performed By: #### 2 4323-8 ####[facility] [id number] [place] [address] [place] AST [Catalytic activity/Vol] 75 U/L High 14-40 [facility] Comment on above: Order Comment: Speci men Type: BLOOD SPECIMENOrdering Facility: [facility] Address: [address] [place] [address] Performed By: #### 2 4323-8 ####[facility] [id number] [place] [address] [place] Bilirubin [Mass/Vol] 1.8 mg/dL High 0.2-1.3 [facility] Comment on above: Order Comment: Speci men Type: BLOOD SPECIMENOrdering Facility: [facility] Address: [address] [place], [place] [address] Performed By: #### 2 4323-8 ####[facility] [id number] [place] [address] [place] Calcium [Mass/Vol] 9.6 mg/dL Normal 8.5-10.2 [facility] Comment on above: Order Comment: Speci men Type: BLOOD SPECIMENOrdering Facility: [facility] Address: [address] [place], [place] [address] Performed By: #### 2 4323-8 ####[facility] [id number] [place] [address] [place] Chloride [Moles/Vol] 102 mmol/L Normal 97-105 [facility] Comment on above: Order Comment: Speci men Type: BLOOD SPECIMENOrdering Facility: [facility] Address: [address] [address] Performed By: #### 2 4323-8 ####[facility] [id number] [place] [address] [place] CO2 [Moles/Vol] 23 mmol/L Normal 22-30 [facility] Comment on above: Order Comment: Speci men Type: BLOOD SPECIMENOrdering Facility: [facility] Address: [address] [address] Performed By: #### 2 4323-8 ####[facility] [id number] [place] [address] [place] Creatinine [Mass/Vol] 1.16 mg/dL Normal 0.73-1.22 [facility] Comment on above: Order Comment: Speci men Type: BLOOD SPECIMENOrdering Facility: [facility] Address: [address] [place] [address] Performed By: #### 2 4323-8 ####[facility] [id number] [address] [place] ESTIMATED GLOMERULAR FILTRATION RATE 84 mL/min/1.73m??? Normal >=60 [facility] Comment on above: Order Comment: Speci men Type: BLOOD SPECIMENOrdering Facility: [facility] Address: [address] [place] [address] Result Comment: Brenda mated Glomerular Filtration Rate [...] actual GFR. Performed By: #### 2 4323-8 ####[facility] [id number] [place] [address] [place] Glucose [Mass/Vol] 170 mg/dL High 74-99 [facility] Comment on above: Order Comment: Speci men Type: BLOOD SPECIMENOrdering Facility: [facility] Address: [address] [place] [address] Result Comment: The [place] [employer] Association (ADA) provides guidance for cutoff [...] Standards of Medical Care in Diabetes 2016, [place] [employer]. Diabetes Care. 2016.39(Suppl 1). Performed By: #### 2 4323-8 ####[facility] [id number] [place] [address] [place] Potassium [Moles/Vol] 3.8 mmol/L Normal 3.7-5.1 [facility] Comment on above: Order Comment: Speci men Type: BLOOD SPECIMENOrdering Facility: [facility] Address: [address] [place] [address] Performed By: #### 2 4323-8 ####[facility] [id number] [place] [address] [place] Protein [Mass/Vol] 6.8 g/dL Normal 6.3-8.0 [facility] Comment on above: Order Comment: Speci men Type: BLOOD SPECIMENOrdering Facility: [facility] Address: [address] [place] [address] Performed By: #### 2 4323-8 ####[facility] [id number] [place] [address] [place] Sodium [Moles/Vol] 136 mmol/L Normal 136-144 [facility] Comment on above: Order Comment: Speci men Type: BLOOD SPECIMENOrdering Facility: [facility] Address: [address] [place] [address] Performed By: #### 2 4323-8 ####[facility] [id number] [address] Urea nitrogen [Mass/Vol] 11 mg/dL Normal 9-24 [facility] Comment on above: Order Comment: Speci men Type: BLOOD SPECIMENOrdering Facility: [facility] Address: [address] [place] [address] Performed By: #### 2 4323-8 ####[facility] [id number] [address] [facility] NUTRITIONon 09-05-2022 NUTRITION HNO ID: [id number] Author: Gifty Arnold RD Service: Nutrition Therapy Author Type: Registered Dietitian Type: Nutrition Filed: 09/05/2022 1:39 PM Note Text: NUTRITION THERAPY INITIAL ASSESSMENT SERVICE DATE: 09/05/2022 SERVICE TIME: 10:50 am Nutrition Assessment: Recommended Malnutrition Diagnosis: No Malnutrition Identified Nutrition Diagnosis: Problem: Suboptimal protein/energy intake Related to: Unknown etiology As evidenced by: Medical condition, Intake records Estimated kilocalorie needs: 5108-2644 Calorie Calculation Method: 20-25 kcals/kg Estimated protein [...] per patient. 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 Denies [...] September 05, 2022 TIME: 1:35 PM Normal [facility] PT panel Coag (PPP)on 2022 INR Coag (PPP) [Relative time] 1.0 {INR} Normal 0.9-1.3 [facility] Comment on above: Order Comment: Noe madrid Type: BLOOD SPECIMEN [facility] Address: [address] [place] [phone] Result Comment: Aster min K Antagonist (VKA) Therapeutic Range: INR 2 to 3 (Target INR of 2.5) Note: For patients treated with VKA drugs, such as warfarin, the [place] [employer] 2012 Guideline recommends [...] Chest 2012, 141:7S-47S Goldie RA, et al. [facility] 2017, 70: 252-289 Performed By: #### V ITB6 #### [facility] CLIA [id number] [address] [place] [address] PT Coag (PPP) [Time] 10.8 s Normal 9.7-13.0 [facility] Comment on above: Order Comment: Noe amdrid Type: BLOOD SPECIMEN [facility] Facility[facility] Address: [place] [address] Performed By: #### V ITB6 #### [facility] CLIA [id number] [address] [place] [address] Tacrolimus Bld-mCncon 2022 Tacrolimus (Bld) [Mass/Vol] 8.4 ng/mL Normal 5.0-20.0 [facility] Comment on above: Order Comment: Noe madrid Type: BLOOD SPECIMEN [facility] Facility[facility] Address: [address] [place] [address] Result Comment: Nannette vidualized target levels for [...] situation. Test performed by chemiluminescent immunoassay using Incap Alinity i. Performed By: #### 2 4323-8 #### [facility] CLIA [id number] [address] [facility] [place] [address] [place] ANES POSTPROC EVALon 023 ANES POSTPROC EVAL HNO ID: [id number] Author: Lucas Moseley MD Service: ? Author Type: Anesthesiologist Type: Anesthesia Postprocedure Evaluation Filed: 09/04/2022 11:10 AM Note Text: POST ANESTHESIA EVALUATION NOTE : 1985 Procedure Summary Date: 09/04/22 Room / Location: Gastroenterology Anesthesia Start: 08 Anesthesia Stop: 1017 Procedure: EGD DIAGNOSTIC Diagnosis: (Stent removal) Scheduled Providers: Betina Quezada MD; Lucas Moseley MD; Suzie Knott APRN.CHANGE MANAGEMENT EXPERT Responsible Provider: Lucas Moseley MD Anesthesia Type: [...] September 04, 2022 TIME: 11:10 AM CSN: [id number] Normal [facility] ANES PRE-OPon 09-04-2022 ANES PRE-OP HNO ID: [id number] Author: Lucas Moseley MD Service: ? Author Type: Anesthesiologist Type: Anesthesia Preprocedure Evaluation Filed: 09/04/2022 8:14 AM Note Text: ANESTHESIOLOGY DAY OF SURGERY NOTE : 1985 Procedure Information Date/Time: 09/04/22 1300 Scheduled providers: Betina Quezada MD; Lucas Moseley MD; Suzie Knott APRN.CHANGE MANAGEMENT EXPERT Procedure: EGD DIAGNOSTIC Location: Gastroenterology Estimated body [...] and consent discussed: yes. Patient / Responsible Republican agrees to proceed: yes Patient / Surrogate [...] administration yosef (more content not included)... Normal [facility] CBC panel Auto (Bld)on 09-04 Erythrocyte distribution width (RBC) [Ratio] 17.1 % High 11.5-15.0 [facility] Comment on above: Order Comment: Speci men Type: BLOOD SPECIMEN Ordering Facility: [facility] Address: [address] [place], [place] [phone] Performed By: #### 5 0189-0, 73393-5, 2132-9 #### [facility] CLIA [id number] [address] [facility] [address] [place] Hematocrit (Bld) [Volume fraction] 36.1 % Low 39.0-51.0 [facility] Comment on above: Order Comment: Speci men Type: BLOOD SPECIMEN Order[facility] Facility: [facility] Address: [address] [place] [address] Performed By: #### 5 0189-0, , 2132-03 #### [facility] CLIA [id number] [address] [place] [address] [place] Hemoglobin (Bld) [Mass/Vol] 12.5 g/dL Low 13.0-17.0 [facility] Comment on above: Order Comment: Speci men Type: BLOOD SPECIMEN [facility] Address: [address] [place], [place] [address] Performed By: #### 5 0189-0, , 2132-03 #### [facility] CLIA [id number] [address] [place] [address] [place] MCH (RBC) [Entitic mass] 30.0 pg Normal 26.0-34.0 [facility] Comment on above: Order Comment: Speci men Type: BLOOD SPECIMEN Order[facility] Facility: [facility] Address: [address] [place] [address] Performed By: #### 5 0189-0, , 2132-03 #### [facility] CLIA [id number] [address] [place] [address] [place] MCHC (RBC) [Mass/Vol] 34.6 g/dL Normal 30.5-36.0 [facility] Comment on above: Order Comment: Speci men Type: BLOOD SPECIMEN Order[facility] Facility: [facility] Address: [address] [place] [address] Performed By: #### 5 0189-0, , 2132-03 #### [facility] CLIA [id number] [address] [place] [address] [place] MCV (RBC) [Entitic vol] 86.8 fL Normal 80.0-100.0 [facility] Comment on above: Order Comment: Speci men Type: BLOOD SPECIMEN [facility] Address: [address] [place] [address] Performed By: #### 5 0189-0, , 2132-03 #### [facility] CLIA [id number] [address] [place] [address] [place] Nucleated RBC (Bld) [#/Vol] 10*3/uL Normal <0.01 [facility] Comment on above: Order Comment: Speci men Type: BLOOD SPECIMEN Order[facility]: [facility] Address: [address] [place], [place] [address] Performed By: #### 5 0189-0, , 2132-03 #### [facility] CLIA [id number] [address] [place] [address] [place] Platelet mean volume (Bld) [Entitic vol] 11.8 fL Normal 9.0-12.7 [facility] Comment on above: Order Comment: Speci men Type: BLOOD SPECIMEN Order[facility]: [facility] Address: [address] [place], [place] [address] Performed By: #### 5 0189-0, , 2132-03 #### [facility] CLIA [id number] [address] [place] [address] [place] Platelets (Bld) [#/Vol] 47 10*3/uL Low 150-400 [facility] Comment on above: Order Comment: Speci men Type: BLOOD SPECIMEN Order[facility]: [facility] Address: [address] [place], [place] [address] Result Comment: Resu lts checked and verified.No clot detected. Performed By: #### 5 0189-0, , 2132-03 #### [facility] CLIA [id number] [address] [place], [place] [address] [place] RBC (Bld) [#/Vol] 4.16 10*6/uL Low 4.20-6.00 [facility] Comment on above: Order Comment: Speci men Type: BLOOD SPECIMEN Order[facility] Facility: [facility] Address: [address] [place] [address] Performed By: #### 5 0189-0, 95999-0, 9 #### [facility] CLIA [id number] [address] [place] [address] [place] WBC (Bld) [#/Vol] 3.04 10*3/uL Low 3.70-11.00 [facility] Comment on above: Order Comment: Noe madrid Type: BLOOD SPECIMEN [facility]: [facility] Address: [address] [place] [address] Performed By: #### 5 0189-0, 55554-1, 9 #### [facility] CLIA [id number] [address] [place] [address] 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] Order(s):ERCP [GI18] Order #: [id number] FUTURE Prescriptions as of 09/04/2022 - tacrolimus [...] Encounter Status:Closed by BETINA QUEZADA on 09/04/22 [facility] COPPER BLOODon 09-04-2022 Copper [Mass/Vol] 86 ug/dL Normal 70-140 [facility] Comment on above: Order Comment: Speci men Type: BLOOD SPECIMEN Order[facility] Address: [address] [place], [place] Result Comment: This test was developed and its performance characteristics determined by [facility]'s [facility] Pathology and Laboratory Medicine [place] (RTPLMI). It has not been cleared or approved by the FDA. -[facility] is regulated under CLIA as qualified to perform high-complexity testing. This test is used for clinical purposes. It should not be regarded as investigational or for research. Performed By: #### 5 763-8, COPPER #### [facility] CLIA [id number] [address] [place] [address] [place] Comprehensive metabolic 2000 panelon 09-04-2022 Albumin [Mass/Vol] 3.7 g/dL Low 3.9-4.9 [facility] Comment on above: Order Comment: Speci men Type: BLOOD SPECIMEN Order[facility] Facility: [facility] Address: [address] [place], [place] [address] Performed By: #### 2 4323-8 #### [facility] CLIA [id number] [address] [place] [address] [place] ALP [Catalytic activity/Vol] 104 U/L Normal 38-113 [facility] Comment on above: Order Comment: Speci men Type: BLOOD SPECIMEN Order[facility] Facility: [facility] Address: [address] [place] [phone] Performed By: #### 2 4323-8 #### [facility] CLIA [id number] [facility] [place] [address] [place] ALT [Catalytic activity/Vol] 101 U/L High 10-54 [facility] Comment on above: Order Comment: Speci men Type: BLOOD SPECIMEN Order[facility] Address: [address] Performed By: #### 2 4323-8 #### [facility] CLIA [id number] [address] [place] [address] [place] Anion gap [Moles/Vol] 10 mmol/L Normal 9-18 [facility] Comment on above: Order Comment: Speci men Type: BLOOD SPECIMEN [facility] Address: [address] [place] [address] Performed By: #### 2 4323-8 #### [facility] CLIA [id number] [address] [place] [address] [place] AST [Catalytic activity/Vol] 87 U/L High 14-40 [facility] Comment on above: Order Comment: Speci men Type: BLOOD SPECIMEN [facility] Address: [address] [place] [address] Performed By: #### 2 4323-8 #### [facility] CLIA [id number] [address] [place] [address] [place] Bilirubin [Mass/Vol] 3.1 mg/dL High 0.2-1.3 [facility] Comment on above: Order Comment: Speci men Type: BLOOD SPECIMEN [facility] Address: [address] [place], [place] [address] Performed By: #### 2 4323-8 #### [facility] CLIA [id number] [address] [place] [address] [place] Calcium [Mass/Vol] 9.3 mg/dL Normal 8.5-10.2 [facility] Comment on above: Order Comment: Speci men Type: BLOOD SPECIMEN Order[facility] Facility[facility] Address: [address] [place], [place] [address] Performed By: #### 2 4323-8 #### [facility] CLIA [id number] [address] [place] [id number] [place] Chloride [Moles/Vol] 101 mmol/L Normal 97-105 [facility] Comment on above: Order Comment: Speci men Type: BLOOD SPECIMEN [facility] Address: [address] [place] [address] Performed By: #### 2 4323-8 #### [facility] CLIA [id number] [address] [place] [address] [place] CO2 [Moles/Vol] 25 mmol/L Normal 22-30 [facility] Comment on above: Order Comment: Speci men Type: BLOOD SPECIMEN [facility] Address: [address] [place] [address] Performed By: #### 2 4323-8 #### [facility] CLIA [id number] [address] [place] [address] [place] [address] [facility] Creatinine [Mass/Vol] 1.09 mg/dL Normal 0.73-1.22 [facility] Comment on above: Order Comment: Speci men Type: BLOOD SPECIMEN [facility] Address: [address] [place] [address] Performed By: #### 2 4323-8 #### [facility] CLIA [id number] [address] [place] [address] ESTIMATED GLOMERULAR FILTRATION RATE 90 mL/min/1.73m??? Normal >=60 [facility] Comment on above: Order Comment: Speci men Type: BLOOD SPECIMEN [facility]: [facility] Address: [address] [place] [address] Result Comment: Brenda mated Glomerular Filtration Rate [...] GFR. Performed By: #### 2 4323-8 #### [facility] CLIA [id number] [address] [place] [address] [place] Glucose [Mass/Vol] 123 mg/dL High 74-99 [facility] Comment on above: Order Comment: Speci men Type: BLOOD SPECIMEN Order[facility] Facility: [facility] Address: [address] [place] [address] Result Comment: The [place] Diabetes [employer] (ADA) provides guidance for cutoff [...] Standards of Medical Care in Diabetes 2016, [place] [employer]. Diabetes Care. 2016.39(Suppl 1). Performed By: #### 2 4323-8 #### [facility] CLIA [id number] [facility] [place] [address] [place] Potassium [Moles/Vol] 4.1 mmol/L Normal 3.7-5.1 [facility] Comment on above: Order Comment: Louiei men Type: BLOOD SPECIMEN [facility] Facility: [facility] Address: [address] [place] [address] Performed By: #### 2 4323-8 #### [facility] CLIA [id number] [facility] [place] [address] [place] Protein [Mass/Vol] 6.7 g/dL Normal 6.3-8.0 [facility] Comment on above: Order Comment: Speci men Type: BLOOD SPECIMEN Order[facility] Facility: [facility] Address: [address] [place] [address] Performed By: #### 2 4323-8 #### [facility] CLIA [id number] [facility] [place] [address] [place] Sodium [Moles/Vol] 136 mmol/L Normal 136-144 [facility] Comment on above: Order Comment: Speci men Type: BLOOD SPECIMEN Ordering Facility: [facility] Address: [address] [place], [place] [phone] Performed By: #### 2 4323-8 #### [facility] CLIA [id number] [address] [place] Urea nitrogen [Mass/Vol] 7 mg/dL Low 9-24 [facility] Comment on above: Order Comment: Speci men Type: BLOOD SPECIMEN [facility] Facility: [facility] Address: [address] [place] [address] Performed By: #### 2 4323-8 #### [facility] CLIA [id number] [address] [place] FLUORO ERCP (POC) FOR DDI US E ONLYon 09-04-2022 [facility] NURSING PROGon 09-04-2022 NURSING PROG HNO ID: [id number] Author: Adeline Martínez RN Service: Nursing Author [...] RN In Department: HOSP MAIN G100 Normal [facility] PT panel Coag (PPP)on 2022 INR Coag (PPP) [Relative time] 1.1 {INR} Normal 0.9-1.3 [facility] Comment on above: Order Comment: Speci men Type: BLOOD SPECIMEN Ordering Facility: [facility] Address: [address] [place], [place] [phone] Result Comment: Aster min K Antagonist (VKA) Therapeutic Range: INR 2 to 3 (Target INR of 2.5) Note: For patients treated with VKA drugs, such as warfarin, the [place] [employer] 2012 Guideline recommends [...] Chest 2012, 141:7S-47S Goldie RA, et al. [facility] 2017, 70: 252-289 Performed By: #### 5 763-8, COPPER #### [facility] CLIA [id number] [facility] [place] [address] [place] PT Coag (PPP) [Time] 11.0 s Normal 9.7-13.0 [facility] Comment on above: Order Comment: Noe [place] Type: BLOOD SPECIMEN Ordering Facility: [facility] Address: [address] [phone] Performed By: #### 5 763-8, COPPER #### [facility] CLIA [id number] [address] [place] [address] [place] [facility] Tacrolimus (Bld) [Mass/Vol] 10.5 ng/mL Normal 5.0-20.0 [facility] Comment on above: Order Comment: Noe [place] Type: BLOOD SPECIMENOrdering Facility: [facility] Address: [address] [place] [phone] Result Comment: Nannette vidualized target levels for [...] Alinity i. Performed By: #### 1 1253-2 ####[facility] [id number] [facility] [id number] STATES OF [facility] VITAMIN B6/PYRIDOXINon 09-04 VITAMIN B6 19.3 nmol/L Low 20.0-125.0 [facility] Comment on above: Order Comment: Speci men Type: BLOOD SPECIMEN [facility] Address: [address] [place] [address] Result Comment: INTE RPRETIVE INFORMATION: Vitamin B6 (Pyridoxal 5-Phosphate) Pyridoxal 5'-phosphate measured in a specimen collected following an 8-hour or overnight fast accurately indicates vitamin B6 nutritional status. Non-fasting specimen concentration reflects recent vitamin intake. This test was developed and its performance characteristics determined by [facility]. It has not been cleared or approved by the [place] Food and Drug Administration. This test was performed in a CLIA certified laboratory and is intended for clinical purposes. Performed By: [facility] [address] [place] [address] English Horn Player: Mic Rangel MD, PhD Performed By: #### V ITB6 #### [facility] [id number] [address] [place] [address] Zinc SerPl-mCncon 09-04-2022 Zinc [Mass/Vol] 57 ug/dL Low 60-120 [facility] Comment on above: Order Comment: Speci men Type: BLOOD SPECIMEN [facility]ing Facility: [facility] Address: [address] [place] [address] Result Comment: This test was developed and its performance characteristics determined by [facility]'s [facility] [place] ([facility]). It has not been cleared or approved by the FDA. -[facility] is regulated under CLIA as qualified to perform high-complexity testing. This test is used for clinical purposes. It should not be regarded as investigational or for research. Performed By: #### 5 763-8, COPPER #### [facility] CLIA [id number] [address] [place] [address] [place] BRIEF OP NOTon 09-03-2022 BRIEF OP NOT HNO ID: [id number] Author: Howard Shepherd MD Service: Radiology Author Type: Physician Type: Brief Op Note Filed: 09/03/2022 2:51 PM Note Text: BRIEF OPERATIVE / PROCEDURE NOTE LOG ID: [id number] SURGERY/PROCEDURE DATE: 08/31/2022 - 09/03/2022 INCISION/PROCEDURE START TIME: 2:34 PM INCISION CLOSE/PROCEDURE END TIME: 2:39 PM SURGEON(S)/PROCEDURALIS T(S) AND PROFESSOR OF ENVIRONMENTAL ENGINEERING(S): Surgeon(s) and Role: * Howard Shepherd MD [...] DATE: September 03, 2022 TIME: 2:50 PM [facility] CASE MANAGEMon 09-03-2022 CASE MANAGEM HNO ID: [id number] Author: JEY Felton Service: ? Author Type: Conference Concierge Type: Care Mgt Progress Note Filed: 09/03/2022 [...] 2022 TIME: 10:03 AM PAGER/CONTACT #: Normal [facility] CBC panel Auto (Bld)on 09-03 Erythrocyte distribution width (RBC) [Ratio] 16.9 % High 11.5-15.0 [facility] Comment on above: Order Comment: Speci men Type: BLOOD SPECIMENOrdering Facility: [facility] Address: [address] [place] [address] Performed By: #### 3 1201-7, 80951-5, IPFR ####[facility] [id number] [place] [address] [place] Hematocrit (Bld) [Volume fraction] 33.9 % Low 39.0-51.0 [facility] Comment on above: Order Comment: Speci men Type: BLOOD SPECIMENOrdering Facility: [facility] Address: [address] [place] [address] Performed By: #### 3 1201-7, 58802-5, IPFR ####[facility] [id number] [place] [address] [place] Hemoglobin (Bld) [Mass/Vol] 12.0 g/dL Low 13.0-17.0 [facility] Comment on above: Order Comment: Speci men Type: BLOOD SPECIMENOrdering Facility: [facility] Address: [address] [place] [address] Performed By: #### 3 1201-7, 08089-7, IPFR ####[facility] [id number] [place] [address] [place] MCH (RBC) [Entitic mass] 30.2 pg Normal 26.0-34.0 [facility] Comment on above: Order Comment: Speci men Type: BLOOD SPECIMENOrdering Facility: [facility] Address: [address] [place] [address] Performed By: #### 3 1201-7, 28627-7, IPFR ####[facility] [id number] [place] [address] [place] MCHC (RBC) [Mass/Vol] 35.4 g/dL Normal 30.5-36.0 [facility] Comment on above: Order Comment: Speci men Type: BLOOD SPECIMENOrdering Facility: [facility] Address: [address] [place] [address] Performed By: #### 3 1201-7, 43599-9, IPFR ####[facility] [id number] [place] [address] [place] MCV (RBC) [Entitic vol] 85.4 fL Normal 80.0-100.0 [facility] Comment on above: Order Comment: Speci men Type: BLOOD SPECIMENOrdering Facility: [facility] Address: [address] [place] [address] Performed By: #### 3 1201-7, 00610-0, IPFR ####[facility] [id number] [place] [address] [place] Nucleated RBC (Bld) [#/Vol] 10*3/uL Normal <0.01 [facility] Comment on above: Order Comment: Speci men Type: BLOOD SPECIMENOrdering Facility: [facility] Address: [address] [place] [address] Performed By: #### 3 1201-7, 01885-1, IPFR ####[facility] [id number] [address] [place] Platelet mean volume (Bld) [Entitic vol] 12.1 fL Normal 9.0-12.7 [facility] Comment on above: Order Comment: Speci men Type: BLOOD SPECIMENOrdering Facility: [facility] Address: [address] [place] [address] Performed By: #### 3 1201-7, 50483-3, IPFR ####[facility] [id number] [place] [address] [place] Platelets (Bld) [#/Vol] 39 10*3/uL Low 150-400 [facility] Comment on above: Order Comment: Speci men Type: BLOOD SPECIMENOrdering Facility: [facility] Address: [address] [place] [address] Result Comment: No c lot detected. Performed By: #### 3 1201-7, 04652-4, IPFR ####[facility] [id number] [place] [address] [place] RBC (Bld) [#/Vol] 3.97 10*6/uL Low 4.20-6.00 [facility] Comment on above: Order Comment: Speci men Type: BLOOD SPECIMENOrdering Facility: [facility] Address: [address] [place] [address] Performed By: #### 3 1201-7, 90057-0, IPFR ####[facility] [id number] [place] [address] [place] WBC (Bld) [#/Vol] 2.84 10*3/uL Low 3.70-11.00 [facility] Comment on above: Order Comment: Speci men Type: BLOOD SPECIMENOrdering Facility: [facility] Address: [address] [place] [address] Performed By: #### 3 1201-7, 17008-8, IPFR ####[facility] [id number] [place] [id number] [place] CONSULTon 09-03-2022 CONSULT HNO ID: [id number] Author: Agnes Johnson DO Service: Hematology Author Type: Physician Type: Consults Filed: 09/04/2022 3:29 PM Note Text: PATIENT NAME: Chuckie Villalta [facility] NO.: [id number] DATE OF SERVICE: September 03, 2022 PRIMARY [...] Intake/Output Summary (Last 24 hours) at 09/03/2022 0977 Last data filed at 09/03/2022 0544 Gross [...] DIAGNOSTIC THAI (more content not included)... Normal [facility] Comprehensive metabolic 2000 panelon 09-03-2022 Albumin [Mass/Vol] 3.4 g/dL Low 3.9-4.9 [facility] Comment on above: Order Comment: Speci men Type: BLOOD SPECIMEN [facility] Address: [address] Performed By: #### 5 0189-0, , 2132-03 #### [facility] CLIA [id number] [address] [place] [address] [place] ALP [Catalytic activity/Vol] 99 U/L Normal 38-113 [facility] Comment on above: Order Comment: Speci men Type: BLOOD SPECIMEN [facility] Facility[facility] Address: [address] Performed By: #### 5 0189-0, , 2132-03 #### [facility] CLIA [id number] [address] [place] [address] [place] ALT [Catalytic activity/Vol] 113 U/L High 10-54 [facility] Comment on above: Order Comment: Speci men Type: BLOOD SPECIMEN [facility] Address: [address] Performed By: #### 5 0189-0, , 2132-03 #### [facility] CLIA [id number] [address] [place] [address] [place] Anion gap [Moles/Vol] 10 mmol/L Normal 9-18 [facility] Comment on above: Order Comment: Speci men Type: BLOOD SPECIMEN [facility] Address: [address] Performed By: #### 5 0189-0, 49619-6, 2132-03 #### [facility] CLIA [id number] [address] [place] [address] [place] AST [Catalytic activity/Vol] 114 U/L High 14-40 [facility] Comment on above: Order Comment: Speci men Type: BLOOD SPECIMEN [facility] Facility: [facility] Address: [address] [place] [address] Performed By: #### 5 0189-0, 11307-1, 2132-03 #### [facility] CLIA [id number] [address] [place] [address] [place] Bilirubin [Mass/Vol] 5.9 mg/dL High 0.2-1.3 [facility] Comment on above: Order Comment: Speci men Type: BLOOD SPECIMEN Order[facility] Facility: [facility] Address: [address] [place] [address] Performed By: #### 5 0189-0, , 2132-03 #### [facility] CLIA [id number] [address] [place] [address] [place] Calcium [Mass/Vol] 8.6 mg/dL Normal 8.5-10.2 [facility] Comment on above: Order Comment: Speci men Type: BLOOD SPECIMEN Order[facility] Facility[facility] Address: [address] [place], [place] Performed By: #### 5 0189-0, , 2132-03 #### [facility] CLIA [id number] [address] [place], [place] [address] [place] Chloride [Moles/Vol] 103 mmol/L Normal 97-105 [facility] Comment on above: Order Comment: Speci men Type: BLOOD SPECIMEN Order[facility] Facility[facility] Address: [address] [place], [place] Performed By: #### 5 0189-0, , 2132-03 #### [facility] CLIA [id number] [address] [place] [address] [place] CO2 [Moles/Vol] 22 mmol/L Normal 22-30 [facility] Comment on above: Order Comment: Speci men Type: BLOOD SPECIMEN [facility] Facility[facility] Address: [address] [place] [address] Performed By: #### 5 0189-0, , 2132-03 #### [facility] CLIA [id number] [address] [place] [address] [place] Creatinine [Mass/Vol] 1.15 mg/dL Normal 0.73-1.22 [facility] Comment on above: Order Comment: Speci men Type: BLOOD SPECIMEN [facility] Facility: [facility] Address: [address] [place] [address] Performed By: #### 5 0189-0, , 2132-03 #### [facility] CLIA [id number] [address] [place] [address] [place] ESTIMATED GLOMERULAR FILTRATION RATE 85 mL/min/1.73m??? Normal >=60 [facility] Comment on above: Order Comment: Speci men Type: BLOOD SPECIMEN [facility] Address: [address] [place] [address] Result Comment: Brenda mated Glomerular Filtration Rate [...] By: #### 5 0189-0, , 2132-03 #### [facility] CLIA [id number] [address] [place] [address] [place] Glucose [Mass/Vol] 125 mg/dL High 74-99 [facility] Comment on above: Order Comment: Speci mercy Type: BLOOD SPECIMEN Ordering Facility: [facility] Address: [address] [place], [place] [address] Result Comment: The [place] Diabetes Association (ADA) provides guidance for cutoff [...] Standards of Medical Care in Diabetes 2016, [place] [employer]. Diabetes Care. 2016.39(Suppl 1). Performed By: #### 5 0189-0, , 2132-03 #### [facility] CLIA [id number] [address] [place] [address] [place] Potassium [Moles/Vol] 3.5 mmol/L Low 3.7-5.1 [facility] Comment on above: Order Comment: [place]e [place] Type: BLOOD SPECIMEN Ordering Facility: [facility] Address: [address] [place], [place] [address] Performed By: #### 5 0189-0, , 2132-03 #### [facility] CLIA [id number] [address] [place] [address] [place] Protein [Mass/Vol] 5.9 g/dL Low 6.3-8.0 [facility] Comment on above: Order Comment: Noe [place] Type: BLOOD SPECIMEN Ordering Facility: [facility] Address: [address] [place], [place] [address] Performed By: #### 5 0189-0, 76343-6, 2132-03 #### [facility] CLIA [id number] [address] [place] [address] [place] Sodium [Moles/Vol] 135 mmol/L Low 136-144 [facility] Comment on above: Order Comment: Noe [place] Type: BLOOD SPECIMEN [facility] Facility[facility] Address: [address] [place] [address] Performed By: #### 5 0189-0, 13719-7, 2132-03 #### [facility] CLIA [id number] [address] [place] [address] [place] Urea nitrogen [Mass/Vol] 8 mg/dL Low 9-24 [facility] Comment on above: Order Comment: Noe [place] Type: BLOOD SPECIMEN [facility] Address: [address] [place] [address] Performed By: #### 5 0189-0, 80300-3, 2132-03 #### [facility] CLIA [id number] [address] [place] [address] [place] Creatinine Unsp time (U) [Ma ss/Vol]on 09-03-2022 Creatinine (U) [Mass/Vol] 75.6 mg/dL Normal 20.0-300.0 [facility] Comment on above: Order Comment: Noe [place] Type: BLOOD SPECIMEN [facility] Address: [address] [place] [address] Performed By: #### 5 763-8, COPPER #### [facility] CLIA [id number] [address] [place] [address] [place] HISTORY PHYSICALon HISTORY PHYSICAL HNO ID: [id number] Author: Howrad Shepherd MD Service: Radiology Author Type: Physician [...] September 03, 2022 TIME: 12:52 PM PAGER: [phone] Normal [facility] HIV 1+2 Ab IA Qlon 3 HIV 1 and 2 Ab IA.rapid Nom Normal [facility] Comment on above: Order Comment: Speci men Type: BLOOD SPECIMENOrdering Facility: [facility] Address: [address] [place] [address] Result Comment: Test not indicated. Performed By: #### 3 1201-7, 00055-4, IPFR ####[facility] [id number] [place] [address] [place] HIV 1+2 Ab+HIV1 p24 Ag IA Ql Non-Reactive Normal Nonreactive [facility] Comment on above: Order Comment: Speci men Type: BLOOD SPECIMENOrdering Facility: [facility] Address: [address] [place] [address] Performed By: #### 3 1201-7, 94352-0, IPFR ####[facility] [id number] [place] [address] [place] HIVINT Normal [facility] Comment on above: Order Comment: Speci men Type: BLOOD SPECIMENOrdering Facility: [facility] Address: [address] [place] [address] Result Comment: No e vidence of HIV-1 [...] or diagnoses. Performed By: #### 3 1201-7, 61041-3, IPFR ####[facility] [id number] [place] [address] [place] IMMATURE PLATELET FRACTIONon 09-03-2022 Platelets reticulated/100 platelets Auto (Bld) 11.9 % High 0.9-7.2 [facility] Comment on above: Order Comment: Speci men Type: BLOOD SPECIMENOrdering Facility: [facility] Address: [address] [place] [address] Performed By: #### 3 1201-7, 35077-9, IPFR ####[facility] [id number] [place] [address] [place] bilirubin panel [Ma ss/Vol]on 09-03-2022 Bilirubin [Mass/Vol] 5.7 mg/dL High 0.2-1.3 [facility] Comment on above: Order Comment: Speci men Type: BLOOD SPECIMEN [facility] Address: [address] [place] [address] Performed By: #### 5 0189-0, 37521-5, 2132-03 #### [facility] CLIA [id number] [address] [place] [address] [place] Bilirubin.conjugated [Mass/Vol] 4.2 mg/dL High <0.2 [facility] Comment on above: Order Comment: Speci men Type: BLOOD SPECIMEN Ordering Facility: [facility] Address: [address] [place], [place] [id number] Performed By: #### 5 0189-0, , 2132-03 #### [facility] CLIA [id number] [address] [place] [address] [place] Bilirubin.indirect [Mass/Vol] 1.5 mg/dL High <1.4 [facility] Comment on above: Order Comment: Speci men Type: BLOOD SPECIMEN Order[facility] Facility: [facility] Address: [address] [place] [address] Performed By: #### 5 0189-0, , 2132-03 #### [facility] CLIA [id number] [address] [place] [address] [place] PT EDon 09-03-2022 PT ED HNO ID: [id number] Author: Kia Lyon RN Service: Nursing Author [...] RN In Department: HOSP MAIN G100 Normal [facility] Platelets Auto (Bld) [#/Vol] on 09-03-2022 Platelets (Bld) [#/Vol] 38 10*3/uL Low 150-400 [facility] Comment on above: Order Comment: Speci men Type: BLOOD SPECIMEN Order[facility] Facility: [facility] Address: [place] [id number] Result Comment: No c lot detected. Performed By: #### 5 763-8, COPPER #### [facility] CLIA [id number] [address] [facility] [id number] SURGICAL PATHOLOGYon 023 ADDENDUM 1: Normal [facility] Comment on above: Order Comment: Speci men Type: TISSUE SPECIMENOrdering Facility: [facility] Address: [place] [address] Result Comment: This addendum is issued to [...] been determined by the performing laboratory within [facility]???s Molly Brian [facility] [place] ([facility], [facility], [facility], [facility], [facility], or [facility]) in a manner consistent with CLIA requirements. [...] at 4:39 PM Performed By: #### S ####[facility] [id number] [address] CASE REPORT Normal [facility] Comment on above: Order Comment: Noe [place] Type: TISSUE SPECIMENOrdering Facility: [facility] Address: [address] [place] [address] Result Comment: Surg ica Pathology Report Case: [id number] Authorizing Provider: Howard Shepherd MD Collected: 09/03/2022 02:35 PM Ordering Location: [place] [address] Received: 09/03/2022 03:04 PM Pathologist: August Oh MD Specimen: LIVER TRANSPLANT BIOPSY Performed By: #### S ####[facility] [id number] [address] CLINICAL HISTORY s/p liver transplant , elevated LFT's, history of rejection. Normal [facility] Comment on above: Order Comment: Noe [place] Type: TISSUE SPECIMENOrdering Facility: [facility] Address: [address] [place] [address] Performed By: #### S ####[facility] [id number] [address] DIAGNOSIS COMMENT Normal [facility] Comment on above: Order Comment: Noe [place] Type: TISSUE SPECIMENOrdering Facility: [facility] Address: [address] [place] [address] Result Comment: The trichrome stain confirms the [...] been determined by the performing laboratory within [facility]???s Molly Cindy [facility] Pathology and Laboratory Medicine [place] ([facility], [facility], [facility], [facility], [facility], or [facility]) in a manner consistent with CLIA requirements. One or more of these tests have not been cleared or approved by the FDA. [facility] is regulated under CLIA as qualified to perform high-complexity testing. These tests are used for clinical purposes. They should not be regarded as investigational or for research. Positive and negative controls stain appropriately. Performed By: #### S ####[facility] [id number] [address] FINAL DIAGNOSIS Normal [facility] Comment on above: Order Comment: Speci men Type: TISSUE SPECIMENOrdering Facility: [facility] Address: [address] [place] [address] Result Comment: Live r allograft, approximately 4 years 2 months post-transplantation, biopsy: - Liver parenchyma with reactive/regenerative change and focal portal change, indeterminate for T-cell mediated rejection (acute cellular rejection). Performed By: #### S ####[facility] [id number] [address] FINAL PERFORMING LAB Normal [facility] Comment on above: Order Comment: Speci men Type: TISSUE SPECIMENOrdering Facility: [facility] Address: [address] [place] [address] Result Comment: Diag nostic interpretation performed at [facility], [address] [place] [address] CLIA# [id number] English Horn Player: Jony Gallegos M.D. Performed By: #### S ####[facility] [id number] [place] [address] [place] GROSS DESCRIPTION Normal [facility] Comment on above: Order Comment: Speci men Type: TISSUE SPECIMENOrdering Facility: [facility] Address: [address] [place] [address] Result Comment: A. L IVER TRANSPLANT BIOPSY Received in formalin is one segment of cylindrical tissue measuring 1.7 x 0.1 x 0.1 cm, montanez-orange and of a soft and friable consistency. Totally submitted in one cassette. September 03, 2022 5:19 PM Gross examination performed at [facility], [address] [place] [address] Performed By: #### S ####[facility] [id number] [place] [address] [place] Sodium ?Tm Ur-sCncon 023 Sodium Unsp time (U) [Moles/Vol] 82 mmol/L Normal 14-216 [facility] Comment on above: Order Comment: Speci men Type: BLOOD SPECIMEN [facility] Address: [address] [place] [address] Performed By: #### 5 763-8, COPPER #### [facility] CLIA [id number] [address] [place] [address] [place] TOX SCREEN ROUT URon 023 Amphetamines Confirm (U) [Mass/Vol] Negative Normal Negative [facility] Comment on above: Order Comment: Speci men Type: BLOOD SPECIMEN [facility] Address: [address] [place] [address] Result Comment: Cuto ff threshold at 1000 ng/mL. Performed By: #### 5 763-8, COPPER #### [facility] CLIA [id number] [address] [place] [address] [place] BARBITURATES, URINE Negative Normal Negative [facility] Comment on above: Order Comment: Speci men Type: BLOOD SPECIMEN [facility] Address: [address] [place] [address] Result Comment: Cuto ff threshold at 200 ng/mL. Performed By: #### 5 763-8, COPPER #### [facility] CLIA [id number] [address] [place] [address] [place] BENZODIAZEPINES, UR Negative Normal Negative [facility] Comment on above: Order Comment: Speci men Type: BLOOD SPECIMEN [facility] Address: [address] [place] [address] Result Comment: Cuto ff threshold at 200 ng/mL. Performed By: #### 5 763-8, COPPER #### [facility] CLIA [id number] [facility] [place] [address] [place] CANNABINOIDS,URINE Negative Normal Negative [facility] Comment on above: Order Comment: Speci men Type: BLOOD SPECIMEN [facility] Address: [address] [place] [address] Result Comment: Cuto ff threshold at 50 ng/mL. Performed By: #### 5 763-8, COPPER #### [facility] CLIA [id number] [address] [place] [address] [place] Cocaine Ql (U) Negative Normal Negative [facility] Comment on above: Order Comment: Speci men Type: BLOOD SPECIMEN [facility] Address: [address] [place] [address] Result Comment: Cuto ff threshold at 300 ng/mL. Performed By: #### 5 763-8, COPPER #### [facility] CLIA [id number] [address] [place] [address] [place] Ethanol (U) [Mass/Vol] <11 Normal <11 [facility] Comment on above: Order Comment: Speci men Type: BLOOD SPECIMEN [facility] Address: [address] Performed By: #### 5 763-8, COPPER #### [facility] CLIA [id number] [address] [place] [address] [place] Opiates Screen Ql (U) Positive Abnormal Negative [facility] [facility] Comment on above: Order Comment: Speci men Type: BLOOD SPECIMEN Ordering Facility: [facility] Address: [address] [address] Result Comment: Cuto ff threshold at 300 ng/mL. Performed By: #### 5 763-8, COPPER #### [facility] CLIA [id number] [address] [place] [address] [place] oxyCODONE cutoff Screen (U) [Mass/Vol] Negative Normal Negative [facility] Comment on above: Order Comment: Speci men Type: BLOOD SPECIMEN Ordering Facility: [facility] Address: [address] [place] [address] Result Comment: Cuto ff threshold at 100 ng/mL. Performed By: #### 5 763-8, COPPER #### [facility] CLIA [id number] [address] [place] [address] [place] Phencyclidine Ql (U) Negative Normal Negative [facility] Comment on above: Order Comment: Speci men Type: BLOOD SPECIMEN Ordering Facility: [facility] Address: [address] [place] [address] Result Comment: Cuto ff threshold at 25 ng/mL. Performed By: #### 5 763-8, COPPER #### [facility] CLIA [id number] [address] [place] [address] [place] TYPE + SCREENon 09-03-2022 ABO A Normal [facility] Comment on above: Order Comment: Speci men Type: BLOOD SPECIMENOrdering Facility: [facility] Address: [address] [address] Performed By: #### T SCR ####CC [facility] BLOOD BANK[id number] HISTORICAL AB SCR STATUS Positive Abnormal [facility] Comment on above: Order Comment: Speci men Type: BLOOD SPECIMENOrdering Facility: [facility] Address: [address] [address] Performed By: #### T SCR ####CC [facility]CLIA [id number] [address] Rh Nom (Bld) Negative Normal [facility] Comment on above: Order Comment: Speci men Type: BLOOD SPECIMENOrdering Facility: [facility] Address: [address] [place] [address] Performed By: #### T SCR ####CC [facility] BANKCLIA [id number] [address] TYPE AND SCREEN EXPIRATION 09/06/2022 23:59 Normal [facility] Comment on above: Order Comment: Speci men Type: BLOOD SPECIMENOrdering Facility: [facility] Address: [address] [place] [address] Performed By: #### T SCR ####CC [facility] BANKCLIA [id number] [address] Tacrolimus Bld-mCncon 2022 Tacrolimus (Bld) [Mass/Vol] 9.2 ng/mL Normal 5.0-20.0 [facility] Comment on above: Order Comment: Speci men Type: BLOOD SPECIMEN [facility]ing Facility: [facility] Address: [address] [place] [address] Result Comment: Thes e reference ranges are [...] Test performed by chemiluminescent immunoassay using [employer]. Performed By: #### 5 0189-0, 36146-9, 2132-9 #### [facility] CLIA [id number] [address] [place] [address] [place] US BIOPSY LIVERon 09-03-2022 US BIOPSY LIVER * * *Final Report* * * DATE OF EXAM: Sep 03 2022 4:01PM [facility] 1073 - US BIOPSY LIVER / PROCEDURE [...] history of rejection. STAFF RADIOLOGIST: Dr. Shepherd PROFESSOR OF ENVIRONMENTAL ENGINEERING(S): None CONSENT: The risks, benefits, treatment options, [...] performed by the: attending radiologist, without an operations and intelligence assistant. The attending radiologist performed the following [...] ULTRASOUND GUIDED RANDOM LIVER TRANSPLANT BIOPSY DESCRIBED Film Casting Operator: GUILLE Transcribe Date/Time: Sep 03 2022 5:36P Dictated by : HOWARD SHEPHERD MD This examination was interpreted and the report reviewed and electronically signed by: HOWARD SHEPHERD MD on Sep 03 2022 5:38PM EST [id number] Normal [facility] Urinalysis complete panel (U )on 09-03-2022 Bilirubin Ql (U) 1+ Abnormal Negative [facility] Comment on above: Order Comment: Speci men Type: BLOOD SPECIMEN Ordering Facility: [facility] Address: [address] [place] [address] Result Comment: Sugg est correlation with clinical findings and serum bilirubin if clinically indicated. Performed By: #### 2 4323-8 #### [facility] CLIA [id number] [facility] [place] [address] [place] Clarity (Unsp spec) Clear Normal Clear [facility] Comment on above: Order Comment: Speci men Type: BLOOD SPECIMEN Ordering Facility: [facility] Address: [address] [place] [address] Performed By: #### 2 4323-8 #### [facility] CLIA [id number] [facility] [place] [address] [place] Color (U) Yellow Normal Yellow [facility] Comment on above: Order Comment: Speci men Type: BLOOD SPECIMEN Ordering Facility: [facility] Address: [address] [place] [address] Performed By: #### 2 4323-8 #### [facility] CLIA [id number] [address] [place] [address] [place] Glucose Test strip (U) [Mass/Vol] Negative Normal Trace, Negative [facility] Comment on above: Order Comment: Speci men Type: BLOOD SPECIMEN Ordering Facility: [facility] Address: [address] Performed By: #### 2 4323-8 #### [facility] CLIA [id number] [address] [facility] [place] [address] [place] Hemoglobin Ql (U) Negative Normal Negative, Trace [facility] Comment on above: Order Comment: Speci men Type: BLOOD SPECIMEN Ordering Facility: [facility] Address: [address] [address] Performed By: #### 2 4323-8 #### [facility] CLIA [id number] [address] [place] [address] [place] Ketones Ql (U) 1+ Abnormal Trace, Negative [facility] Comment on above: Order Comment: Speci men Type: BLOOD SPECIMEN [facility]ing Facility[facility] Address: [address] Performed By: #### 2 4323-8 #### [facility] CLIA [id number] [address] [place] [address] [place] Leukocyte esterase Test strip Ql (U) Negative Normal Negative, 25 Daniel/uL [facility] Comment on above: Order Comment: Speci men Type: BLOOD SPECIMEN Order[facility] Address: [address] Performed By: #### 2 4323-8 #### [facility] CLIA [id number] [address] [place] [address] [place] Nitrite Ql (U) Negative Normal Negative [facility] Comment on above: Order Comment: Speci men Type: BLOOD SPECIMEN Ordering Facility: [facility] Address: [address] Performed By: #### 2 4323-8 #### [facility] CLIA [id number] [address] [place] [address] [place] pH (U) 6.0 [pH] Normal 5.0-8.0 [facility] Comment on above: Order Comment: Speci men Type: BLOOD SPECIMEN Ordering Facility: [facility] Address: [address] [place] [address] Performed By: #### 2 4323-8 #### [facility] CLIA [id number] [address] [place] [address] [place] Protein (U) [Mass/Vol] Trace Normal Trace , Negative [facility] Comment on above: Order Comment: Speci men Type: BLOOD SPECIMEN [facility]ing Facility: [facility] Address: [address] [place] [address] Performed By: #### 2 4323-8 #### [facility] CLIA [id number] [facility] [place] [address] [place] RBC LM.HPF (Urine sed) [#/Area] 0-3 /HPF Normal 0-3 /HPF [facility] Comment on above: Order Comment: Speci men Type: BLOOD SPECIMEN Ordering Facility: [facility] Address: [address] [place] [address] Performed By: #### 2 4323-8 #### [facility] CLIA [id number] [address] [place] [address] [place] Specific gravity (U) [Rel density] 1.009 Normal 1.005-1.030 [facility] Comment on above: Order Comment: Speci men Type: BLOOD SPECIMEN Ordering Facility: [facility] Address: [address] [place], [place] [address] Performed By: #### 2 4323-8 #### [facility] CLIA [id number] [address] [place] [address] [place] Urobilinogen Ql (U) 1+ Abnormal Negative [facility] Comment on above: Order Comment: Speci men Type: BLOOD SPECIMEN [facility] Address: [address] [place] [address] Performed By: #### 2 4323-8 #### [facility] CLIA [id number] [address] [place] [address] [place] WBC LM.HPF (Urine sed) [#/Area] 0-5 /HPF Normal 0-5 /HPF [facility] Comment on above: Order Comment: Speci men Type: BLOOD SPECIMEN Order[facility] Facility: [facility] Address: [address] [place] [address] Performed By: #### 2 4323-8 #### [facility] CLIA [id number] [address] [place] [address] [place] Vit B12 SerPl-mCncon 023 Cobalamin (Vitamin B12) [Mass/Vol] 802 pg/mL Normal 232-1245 [facility] Comment on above: Order Comment: Speci men Type: BLOOD SPECIMEN Ordering Facility: [facility] Address: [address] [place] [address] Performed By: #### 5 0189-0, 33577-7, 2132-9 #### [facility] CLIA [id number] [address] [place] [address] [place] ALPHA-1 ANTITRYPSIN GENOon 0 09-02-2022 HA1AT RE[facility]ED [facility] Comment on above: Order Comment: Speci men Type: BLOOD SPECIMENOrdering Facility: [facility] Address: [address] [place] [address] Result Comment: Alph a-1 Antitrypsin Genotyping Laboratory Accession Number: [id number] Result: No Variant Detected in SERPINA1 (PI*MM) [...] two most common pathogenic variants: S (c.863A>T, p.Kpp688Tcb, g.46124440), Z (c.1096G>A, p.Vvj272Olt, g.30236804), and the rarer variants: F (c.739C>T, p.Uyt896Seb, g.26637338), I (c.187C>T, p.Ndd05Kll, g.13981682). Limitations: This Laboratory Developed Test (LDT) is [...] developed and its performance characteristics determined by [facility]'s [facility] Pathology and Laboratory Medicine [place] ([facility]). It has not been cleared or approved by the FDA. RT-PLMI is regulated under CLIA as certified to perform high- complexity testing. This test is used for clinical purposes. It should not be regarded as investigational or for research. Testing and interpretation performed at [facility], [address] [place], [place] [address]. CLIA Number: [id number] References: 1) Kun SANTANA, Manjit G, Radha ML, Alexandr M, Domingo CE, K, Tia DK, Edilma SL, Aiden MIRANDA, Luz Maria THOMPSON, Mateusz Mazariegos, Taina J. The Diagnosis and Management of Alpha-1 Antritrypsin Deficiency in the Adult. Chronic Obstr Pulm Dis. 2016 Dec 30;3:668-682. 2) Andrew JA, Vickey ON, Bossman ER, Jackson DG. a1-Antitrypsin phenotypes and associated serum protein concentrations in a large clinical population. Chest.2013 Oct;143(4):1000-8. 3) Tom A, Jalen NA, Fei CR, Fina FJ, Michel SJ, Agapito AF. Molecular characterisation of three indtd-2-trfozaoyxoj deficiency variants: proteinase inhibitor (Pi) nullcardiff (Czv049----Jby); PiMmalton (Fpn73----kueyawpi) and PiI (Zbc01----Nom). Hum Vonnie. 1989 Jun;84(1):55-8. 4) Reg STILL and Kun SANTANA. Clinical practice. Alpha1-antitrypsin deficiency. N Engl J Med. 2008Jan 18;360(96)0396-29. 5) Kimi NJ, Jovan F, Lindy SANTANA. The significance of the F variant of pqzfd-8-uheggtsceyy and unique case report of a PiFF homozygote. [facility] Pulm Med. 2014 Mar 02;14:132. 6) Luz Maria THOMPSON, Michelle FARIAS, and Dharmesh Rosado. Alpha-1 Antitrypsin Deficiency. 2005May 22 [Updated 2017 August 14]. In: Moises RA, Zacarias MP, Kwan TO, et al., editors. GeneReviews [Internet]. [place]): [facility], [place]; 7723-3822. Available from: http://www.ncbi.nlm.nih.gov/books/KHG1731/ As reviewed by Isabel Breaux, PhD, [facility] Performed By: #### H A1AT ####CLARITY AIDEE JAIN [id number] [address] [place] BY IFA WITH REFLEXon Nuclear Ab IF (S) [Titer] Negative Normal Negative [facility] Comment on above: Order Comment: Speci men Type: BLOOD SPECIMEN [facility] Address: [address] [address] Result Comment: Anti -nuclear antibody test is used as an aid in diagnosis of systemic autoimmune diseases. Where positive and clinically warranted, follow-up using disease-specific testing is recommended. Low positive titers are not uncommon with advanced age, certain chronic infections, and malignancies among others. Test methodology: Indirect fluorescence immunoassay (IFA) using HEp-2 cells. Performed By: #### 5 763-8, COPPER #### [facility] CLIA [id number] [address] [place] [address] [place] CBC W Ordered Manual Differe ntial panel (Bld)on 09-02-2022 Basophils (Bld) [#/Vol] 10*3/uL Normal <0.11 [facility] Comment on above: Order Comment: Speci men Type: BLOOD SPECIMENOrdering Facility: [facility] Address: [address] [address] Performed By: #### S TFREV, 94569-7, [id number] ####[facility] [id number] [address] STATES [facility] Basophils/100 WBC (Bld) 0.2 % Normal [facility] Comment on above: Order Comment: Speci men Type: BLOOD SPECIMENOrdering Facility: [facility] Address: [address] [address] Performed By: #### S TFREV, 81251-6, [id number] ####[facility]IA [id number] [place] [address] [place] Differential cell count method Nom (Bld) Auto Normal [facility] Comment on above: Order Comment: Speci men Type: BLOOD SPECIMENOrdering Facility: [facility] Address: [address] [place] [address] Performed By: #### S TFREV, 61346-0, [id number] ####[facility] [id number] [place] [address] [place] Eosinophils (Bld) [#/Vol] 0.05 10*3/uL Normal <0.46 [facility] Comment on above: Order Comment: Speci men Type: BLOOD SPECIMENOrdering Facility: [facility] Address: [address] [place] [address] Performed By: #### S TFREV, 75416-9, [id number] ####[facility]IA [id number] [place] [address] [place] Eosinophils/100 WBC (Bld) 1.2 % Normal [facility] Comment on above: Order Comment: Speci men Type: BLOOD SPECIMENOrdering Facility: [facility] Address: [address] [place] [address] Performed By: #### S TFREV, 31433-6, [id number] ####[facility] [id number] [address] [place] Erythrocyte distribution width (RBC) [Ratio] 16.9 % High 11.5-15.0 [facility] Comment on above: Order Comment: Speci men Type: BLOOD SPECIMENOrdering Facility: [facility] Address: [address] [place] [address] Performed By: #### S TFREV, 66445-8, [id number] ####[facility] [id number] [address] [place] Hematocrit (Bld) [Volume fraction] 36.7 % Low 39.0-51.0 [facility] Comment on above: Order Comment: Speci men Type: BLOOD SPECIMENOrdering Facility: [facility] Address: [address] [place] [address] Performed By: #### S TFREV, 33784-7, [id number] ####[facility] [id number] [place] [address] [place] Hemoglobin (Bld) [Mass/Vol] 12.9 g/dL Low 13.0-17.0 [facility] Comment on above: Order Comment: Speci men Type: BLOOD SPECIMENOrdering Facility: [facility] Address: [address] [place] [address] Performed By: #### S TFREV, 09987-0, [id number] ####[facility] [id number] [place] [address] [place] Immature granulocytes (Bld) [#/Vol] 0.05 10*3/uL Normal <0.10 [facility] Comment on above: Order Comment: Speci men Type: BLOOD SPECIMENOrdering Facility: [facility] Address: [address] [place] [address] Performed By: #### S TFREV, 43789-3, [id number] ####[facility] [id number] [address] [place] Immature granulocytes/100 WBC (Bld) 1.2 % Normal [facility] Comment on above: Order Comment: Speci men Type: BLOOD SPECIMENOrdering Facility: [facility] Address: [address] [place] [address] Performed By: #### S TFREV, 52128-8, [id number] ####[facility] [id number] [place] [address] [place] Lymphocytes (Bld) [#/Vol] 0.31 10*3/uL Low 1.00-4.00 [facility] Comment on above: Order Comment: Speci men Type: BLOOD SPECIMENOrdering Facility: [facility] Address: [address] [place] [address] Performed By: #### S TFRROSA, 30273-9, [id number] ####[facility] [id number] [address] STATES OF [facility] Lymphocytes/100 WBC (Bld) 7.4 % Normal [facility] Comment on above: Order Comment: Speci men Type: BLOOD SPECIMENOrdering Facility: [facility] Address: [address] [place] [address] Performed By: #### S TFRROSA, 38647-9, [id number] ####[facility] [id number] [address] STATES OF [facility] MCH (RBC) [Entitic mass] 30.0 pg Normal 26.0-34.0 [facility] Comment on above: Order Comment: Speci men Type: BLOOD SPECIMENOrdering Facility: [facility] Address: [address] [place] [address] Performed By: #### S TFRROSA, 87283-3, [id number] ####[facility] [id number] [address] STATES OF [facility] MCHC (RBC) [Mass/Vol] 35.1 g/dL Normal 30.5-36.0 [facility] Comment on above: Order Comment: Speci men Type: BLOOD SPECIMENOrdering Facility: [facility] Address: [address] [place], [place] [address] Performed By: #### S TFREV, 31158-0, [id number] ####[facility]CLIA [id number] [place] [address] [place] MCV (RBC) [Entitic vol] 85.3 fL Normal 80.0-100.0 [facility] Comment on above: Order Comment: Speci men Type: BLOOD SPECIMENOrdering Facility: [facility] Address: [address] Performed By: #### S TFREV, 58318-2, [id number] ####[facility]IA [id number] [place] [address] [place] Monocytes (Bld) [#/Vol] 0.33 10*3/uL Normal <0.87 [facility] Comment on above: Order Comment: Speci men Type: BLOOD SPECIMENOrdering Facility: [facility] Address: [address] [address] Performed By: #### S TFREV, 76458-5, [id number] ####[facility] [id number] [place] [address] [place] Monocytes/100 WBC (Bld) 7.9 % Normal [facility] Comment on above: Order Comment: Speci men Type: BLOOD SPECIMENOrdering Facility: [facility] Address: [address] Performed By: #### S TFRROSA, 24701-8, [id number] ####[facility] [id number] [place] [address] [place] Neutrophils (Bld) [#/Vol] 3.42 10*3/uL Normal 1.45-7.50 [facility] Comment on above: Order Comment: Speci men Type: BLOOD SPECIMENOrdering Facility: [facility] Address: [address] Performed By: #### S TFREV, 49875-3, [id number] ####[facility]CLIA [id number] [place] [address] [place] Neutrophils/100 WBC (Bld) 82.1 % Normal [facility] Comment on above: Order Comment: Speci men Type: BLOOD SPECIMENOrdering Facility: [facility] Address: [address] [place] [address] Performed By: #### S TFRROSA, 85842-0, [id number] ####[facility] [id number] [place] [address] [place] Nucleated RBC (Bld) [#/Vol] 10*3/uL Normal <0.01 [facility] Comment on above: Order Comment: Speci men Type: BLOOD SPECIMENOrdering Facility: [facility] Address: [address] [place] [address] Performed By: #### S TFRROSA, 62659-4, [id number] ####[facility]CLIA [id number] [place] [address] [place] Nucleated RBC/100 WBC (Bld) [Ratio] 0.0 /100 WBC Normal [facility] Comment on above: Order Comment: Speci men Type: BLOOD SPECIMENOrdering Facility: [facility] Address: [address] [place] [address] Performed By: #### S CECIL, 06547-0, [id number] ####[facility] [id number] [place] [address] [place] Platelet mean volume (Bld) [Entitic vol] 12.1 fL Normal 9.0-12.7 [facility] Comment on above: Order Comment: Speci men Type: BLOOD SPECIMENOrdering Facility: [facility] Address: [address] [place] [address] Performed By: #### S TFRROSA, 29747-0, [id number] ####[facility] [id number] [place] [address] [place] Platelets (Bld) [#/Vol] 38 10*3/uL Low 150-400 [facility] Comment on above: Order Comment: Speci men Type: BLOOD SPECIMENOrdering Facility: [facility] Address: [address] [address] Result Comment: No c lot detected. Performed By: #### S TFRROSA, 64854-6, [id number] ####[facility] [id number] [address] [place] RBC (Bld) [#/Vol] 4.30 10*6/uL Normal 4.20-6.00 [facility] Comment on above: Order Comment: Speci men Type: BLOOD SPECIMENOrdering Facility: [facility] Address: [address] [address] Performed By: #### S CECIL, 74822-9, [id number] ####[facility] [id number] [address] [place] WBC (Bld) [#/Vol] 4.17 10*3/uL Normal 3.70-11.00 [facility] Comment on above: Order Comment: Speci men Type: BLOOD SPECIMENOrdering Facility: [facility] Address: [address] [place] [address] Performed By: #### S TFRROSA, 20045-7, [id number] ####[facility] [id number] [address] [place] CBC panel Auto (Bld)on 09-02 Erythrocyte distribution width (RBC) [Ratio] 16.5 % High 11.5-15.0 [facility] Comment on above: Order Comment: Speci men Type: BLOOD SPECIMENOrdering Facility: [facility] Address: [address] [place] [address] Performed By: #### 5 8410-2, 12526-9 ####[facility] [id number] [address] [place] Hematocrit (Bld) [Volume fraction] 35.5 % Low 39.0-51.0 [facility] Comment on above: Order Comment: Speci men Type: BLOOD SPECIMENOrdering Facility: [facility] Address: [address] [place] [address] Performed By: #### 5 8410-2, 51371-9 ####[facility] [id number] [place] [address] [place] Hemoglobin (Bld) [Mass/Vol] 12.6 g/dL Low 13.0-17.0 [facility] Comment on above: Order Comment: Speci men Type: BLOOD SPECIMENOrdering Facility: [facility] Address: [address] [place] [address] Performed By: #### 5 8410-2, 14523-0 ####[facility] [id number] [address] [place] MCH (RBC) [Entitic mass] 29.9 pg Normal 26.0-34.0 [facility] Comment on above: Order Comment: Speci men Type: BLOOD SPECIMENOrdering Facility: [facility] Address: [address] [place] [address] Performed By: #### 5 8410-2, 85469-7 ####[facility]IA [id number] [address] [place] MCHC (RBC) [Mass/Vol] 35.5 g/dL Normal 30.5-36.0 [facility] Comment on above: Order Comment: Speci men Type: BLOOD SPECIMENOrdering Facility: [facility] Address: [address] [place], [place] [address] Performed By: #### 5 8410-2, 51647-6 ####[facility]IA [id number] [address] [place] MCV (RBC) [Entitic vol] 84.1 fL Normal 80.0-100.0 [facility] Comment on above: Order Comment: Speci men Type: BLOOD SPECIMENOrdering Facility: [facility] Address: [address] [place] [address] Performed By: #### 5 8410-2, 87507-8 ####[facility] [id number] [place] [address] [place] Nucleated RBC (Bld) [#/Vol] 10*3/uL Normal <0.01 [facility] Comment on above: Order Comment: Speci men Type: BLOOD SPECIMENOrdering Facility: [facility] Address: [address] [place] [address] Performed By: #### 5 8410-2, 89679-0 ####[facility] [facility] [id number] [place] [address] [place] Platelet mean volume (Bld) [Entitic vol] 11.7 fL Normal 9.0-12.7 [facility] Comment on above: Order Comment: Speci men Type: BLOOD SPECIMENOrdering Facility: [facility] Address: [address] [place] [address] Performed By: #### 5 8410-2, 24373-0 ####[facility] [id number] [place] [address] [place] Platelets (Bld) [#/Vol] 40 10*3/uL Low 150-400 [facility] Comment on above: Order Comment: Speci men Type: BLOOD SPECIMENOrdering Facility: [facility] Address: [address] [place] [address] Result Comment: Resu lts checked and verified.No clot detected. Performed By: #### 5 8410-2, 98765-4 ####[facility] [id number] [place] [address] [place] RBC (Bld) [#/Vol] 4.22 10*6/uL Normal 4.20-6.00 [facility] Comment on above: Order Comment: Speci men Type: BLOOD SPECIMENOrdering Facility: [facility] Address: [address] [address] Performed By: #### 5 8410-2, 86544-7 ####[facility] [id number] [place] [address] [place] WBC (Bld) [#/Vol] 4.69 10*3/uL Normal 3.70-11.00 [facility] Comment on above: Order Comment: Speci men Type: BLOOD SPECIMENOrdering Facility: [facility] Address: [address] [address] Performed By: #### 5 8410-2, 42457-6 ####[facility] [id number] [place] [address] [place] CMV DNA DETECTION AND QUANTo n 09-02-2022 CMV DNA NOLBERTO+probe Qn (P) Not detected Normal Not Detected [facility] Comment on above: Order Comment: Speci men Type: BLOOD SPECIMENOrdering Facility: [facility] Address: [address] [address] Performed By: #### C MVQNT ####[facility] [id number] [place] [address] [place] Ceruloplasmin SerPl-mCncon 0 09-02-2022 Ceruloplasmin [Mass/Vol] 17 mg/dL Normal 15-30 [facility] Comment on above: Order Comment: Speci men Type: BLOOD SPECIMEN [facility] Address: [address] [address] Performed By: #### V ITB6 #### [facility] CLIA [id number] [address] [place] [address] Comprehensive metabolic 2000 panelon 09-02-2022 Albumin [Mass/Vol] 3.7 g/dL Low 3.9-4.9 [facility] Comment on above: Order Comment: Speci men Type: BLOOD SPECIMEN [facility] Address: [address] Performed By: #### 5 763-8, COPPER #### [facility] CLIA [id number] [address] [place] [address] [place] ALP [Catalytic activity/Vol] 98 U/L Normal 38-113 [facility] Comment on above: Order Comment: Speci men Type: BLOOD SPECIMEN [facility] Address: [address] Performed By: #### 5 763-8, COPPER #### [facility] CLIA [id number] [address] [place] [address] [place] ALT [Catalytic activity/Vol] 175 U/L High 10-54 [facility] Comment on above: Order Comment: Speci men Type: BLOOD SPECIMEN [facility] Address: [address] Performed By: #### 5 763-8, COPPER #### [facility] CLIA [id number] [address] [place] [address] [place] Anion gap [Moles/Vol] 13 mmol/L Normal 9-18 [facility] Comment on above: Order Comment: Speci men Type: BLOOD SPECIMEN [facility] Address: [address] Performed By: #### 5 763-8, COPPER #### [facility] CLIA [id number] [address] [place] [address] [place] AST [Catalytic activity/Vol] 318 U/L High 14-40 [facility] Comment on above: Order Comment: Speci men Type: BLOOD SPECIMEN [facility] Address: [address] [place] [address] Performed By: #### 5 763-8, COPPER #### [facility] CLIA [id number] [address] [place] [address] [place] Bilirubin [Mass/Vol] 10.9 mg/dL High 0.2-1.3 [facility] Comment on above: Order Comment: Speci men Type: BLOOD SPECIMEN [facility] Address: [address] Performed By: #### 5 763-8, COPPER #### [facility] CLIA [id number] [address] [place] [address] [place] Calcium [Mass/Vol] 8.9 mg/dL Normal 8.5-10.2 [facility] Comment on above: Order Comment: Speci men Type: BLOOD SPECIMEN [facility] Address: [address] [place], [place] [address] Performed By: #### 5 763-8, COPPER #### [facility] CLIA [id number] [address] [place] [address] [place] Chloride [Moles/Vol] 99 mmol/L Normal 97-105 [facility] Comment on above: Order Comment: Speci men Type: BLOOD SPECIMEN [facility] Address: [address] [place], [place] [address] Performed By: #### 5 763-8, COPPER #### [facility] CLIA [id number] [address] [place] [address] [place] CO2 [Moles/Vol] 20 mmol/L Low 22-30 [facility] Comment on above: Order Comment: Speci men Type: BLOOD SPECIMEN [facility] Address: [address] Performed By: #### 5 763-8, COPPER #### [facility] CLIA [id number] [address] [place] [address] [place] Creatinine [Mass/Vol] 1.18 mg/dL Normal 0.73-1.22 [facility] Comment on above: Order Comment: Speci men Type: BLOOD SPECIMEN [facility] Address: [address] [address] Performed By: #### 5 763-8, COPPER #### [facility] CLIA [id number] [address] [place] [address] [place] ESTIMATED GLOMERULAR FILTRATION RATE 82 mL/min/1.73m??? Normal >=60 [facility] Comment on above: Order Comment: [place] Type: BLOOD SPECIMEN [facility] Address: [address] [address] Result Comment: Brenda mated Glomerular Filtration Rate [...] Performed By: #### 5 763-8, COPPER #### [facility] CLIA [id number] [address] [place] [address] [place] Glucose [Mass/Vol] 106 mg/dL High 74-99 [facility] Comment on above: Order Comment: [place]e [place] Type: BLOOD SPECIMEN [facility] Address: [address] [place] [address] Result Comment: The [place] Diabetes Association (ADA) provides guidance for cutoff [...] Standards of Medical Care in Diabetes 2016, [place] [employer]. Diabetes Care. 2016.39(Suppl 1). Performed By: #### 5 763-8, COPPER #### [facility] CLIA [id number] [address] [place] [address] [place] Potassium [Moles/Vol] 3.7 mmol/L Normal 3.7-5.1 [facility] Comment on above: Order Comment: Speci men Type: BLOOD SPECIMEN [facility] Address: [address] [place] [address] Performed By: #### 5 763-8, COPPER #### [facility] CLIA [id number] [address] [place] [address] [place] Protein [Mass/Vol] 6.0 g/dL Low 6.3-8.0 [facility] Comment on above: Order Comment: Speci men Type: BLOOD SPECIMEN [facility] Address: [address] [place] [address] Performed By: #### 5 763-8, COPPER #### [facility] CLIA [id number] [address] [place] [address] [place] Sodium [Moles/Vol] 132 mmol/L Low 136-144 [facility] Comment on above: Order Comment: Speci men Type: BLOOD SPECIMEN [facility] Address: [address] [place], [place] [address] Performed By: #### 5 763-8, COPPER #### [facility] CLIA [id number] [address] [place] [address] [place] Urea nitrogen [Mass/Vol] 8 mg/dL Low 9-24 [facility] Comment on above: Order Comment: Speci men Type: BLOOD SPECIMEN [facility] Address: [address] [place], [place] [address] Performed By: #### 5 763-8, COPPER #### [facility] CLIA [id number] [address] [address] [place] EBV capsid IgM Qn (S)on EBV VCA IGM, QUAL Negative Normal Negative [facility] Comment on above: Order Comment: Speci men Type: BLOOD SPECIMENOrdering Facility: [facility] Address: [address] [place] [address] Result Comment: No s erological evidence of recent EBV infection. Performed By: #### 7 886-5, 2284-8, VZVG2 ####[facility] [id number] [place] [address] [place] CLARK IRENE PANELon 023 EBV NA AB, QUAL Positive Abnormal Negative [facility] Comment on above: Order Comment: Speci men Type: BLOOD SPECIMEN [facility] Address: [address] [place] [address] Performed By: #### 2 4323-8 #### [facility] CLIA [id number] [address] [place] [address] [place] EBV VCA IGG, QUAL Positive Abnormal Negative [facility] Comment on above: Order Comment: Speci men Type: BLOOD SPECIMEN [facility] Address: [address] [place] [address] Performed By: #### 2 4323-8 #### [facility] CLIA [id number] [address] [place] EBV VCA IGM, QUAL Negative Normal Negative [facility] Comment on above: Order Comment: Speci men Type: BLOOD SPECIMEN [facility] Address: [address] [place] [address] Performed By: #### 2 4323-8 #### [facility] CLIA [id number] [address] [place] [address] [place] INTERPRETATION (EBVPNL) Past Infection. EBV panel interpretation is a general guide that is meant to capture most, but not all, of the possible clinical scenarios. Non-specific reactivities are not uncommon especially with equivocal results. Should the overall interpretation not be consistent with the clinical picture, please contact the medical lab specialist of the test for assistance. Normal [facility] Comment on above: Order Comment: Speci men Type: BLOOD SPECIMEN [facility] Address: [address] [place] [address] Performed By: #### 2 4323-8 #### [facility] CLIA [id number] [address] [place] [address] [place] Ferritin SerPl-mCncon 2022 Ferritin [Mass/Vol] 345.0 ng/mL Normal 30.3-565.7 [facility] Comment on above: Order Comment: Speci men Type: BLOOD SPECIMEN [facility] Address: [address] [place] [address] Performed By: #### V ITB6 #### [id number] [address] [place] [address] Fibrinogen PPP-mCncon 2022 Fibrinogen Coag (PPP) [Mass/Vol] 442 mg/dL High 200-400 [facility] Comment on above: Order Comment: Speci men Type: BLOOD SPECIMEN [facility] Address: [address] [place] [address] Performed By: #### V ITB6 #### [facility] [id number] [address] [place] [address] Folate SerPl-mCncon 09-02-19 Folate [Mass/Vol] 13.7 ng/mL Normal >4.7 [facility] Comment on above: Order Comment: Speci men Type: BLOOD SPECIMENOrdering Facility: [facility] Address: [address] [place] [address] Performed By: #### 7 886-5, 2284-8, [id number] ####[facility] [id number] [place] [address] [place] HAV IgM Ser Qlon 09-02-2022 HAV IgM Ql (S) Negative Normal Negative [facility] Comment on above: Order Comment: Speci men Type: BLOOD SPECIMENOrdering Facility: [facility] Address: [address] [place] [address] Result Comment: No e vidence of recent infection with Hepatitis A virus. Performed By: #### 2 532-0, 5195-3, 99499-6, 60805-3 ####[facility] [id number] [place] [address] [place] HBV core IgM Ser Qlon 2022 HBV core IgM Ql (S) Negative Normal Negative [facility] Comment on above: Order Comment: Speci men Type: BLOOD SPECIMENOrdering Facility: [facility] Address: [address] [place] [address] Result Comment: No e vidence of recent infection with Hepatitis B virus. Should recent infection be suspected, repeat testing may be considered 3-4 weeks after this draw. Performed By: #### 2 532-0, 5195-3, 31213-1, ####[facility] [id number] [address] [place] HBV surface Ag Ser Qlon HBV surface Ag Ql (S) Negative Normal Negative [facility] Comment on above: Order Comment: Speci men Type: BLOOD SPECIMENOrdering Facility: [facility] Address: [address] [place] [address] Performed By: #### 2 532-0, 5195-3, 44139-8, ####[facility] [id number] [place] [address] [place] HCV RNA SerPl NOLBERTO+probe-aCnc on 09-02-2022 HCV RNA NOLBERTO+probe Qn Not detected Normal HCV RNA not detected by PCR. [facility] Comment on above: Order Comment: Speci men Type: BLOOD SPECIMEN [facility] Address: [address] [place] [address] Performed By: #### 5 763-8, COPPER #### [facility] CLIA [id number] [address] [facility] [id number] [address] [place] HEP DELTA ABon 09-02-2022 HEP DELTA AB Negative Normal Negative [facility] Comment on above: Order Comment: [place]e [place] Type: BLOOD SPECIMENOrdering Facility: [facility] Address: [address] [place], [place] [address] Result Comment: No a ntibody to Hepatitis Delta agent was detected. Order anti-HDV testing only when Hepatitis B virus infection has been confirmed. INTERPRETIVE INFORMATION: Hepatitis Delta Ab This test was developed and its performance characteristics determined by [facility]. It has not been cleared or approved by the [place] Food and Drug Administration. This test was performed in a CLIA certified laboratory and is intended for clinical purposes. Performed by [facility], [address] [place] [id number] [email or web address], Mic Rangel MD, PHD, Lab. Director Performed By: #### A HD ####[facility] [id number] [place] [address] HEPATITIS E VIRUS ABon 09-02 HEV IGG Not detected Normal [facility] Comment on above: Order Comment: Noe [place] Type: BLOOD SPECIMENOrdering Facility: [facility] Address: [address] [place] [address] Performed By: #### H EPE ####[facility] [id number] [place] [address] HEV IGM Not detected Normal [facility] Comment on above: Order Comment: Noe [place] Type: BLOOD SPECIMENOrdering Facility: [facility] Address: [address] [place], [place] [address] Result Comment: REFE RENCE RANGE: NOT DETECTED [...] analytical performance characteristics have been determined by [employer]. It has not been cleared or approved by FDA. This assay has been validated pursuant to the CLIA regulations and is used for clinical purposes. Performed By: #### H EPE ####[facility] [id number] [place] MEE [address] HISTORY PHYSICALon 3 HISTORY PHYSICAL HNO ID: [id number] Author: Carolin Crawford MD Service: Hepatology Author Type: Physician Type: HANDP Filed: 09/03/2022 5:06 PM Note Text: Department of Gastroenterology AND Hepatology Initial Consult Note Date of Service: September 02, 2022 Patient: Chuckie Villalta Medical Record: [id number] Reason for Admission / Consultation: Opinion/Advice regarding [...] Camacho MD Gastroenterology AND Hepatology Fellow Pager [phone] Discussed with staff. ==== History of Present [...] On Thursday, (more content not included)... Normal [facility] Haptoglob SerPl-mCncon 09-02 Haptoglobin [Mass/Vol] 36 mg/dL Normal 31-238 [facility] Comment on above: Order Comment: Speci men Type: BLOOD SPECIMEN [facility] Address: [address] [place] [address] Performed By: #### 5 763-8, COPPER #### [facility] CLIA [id number] [address] [facility] [id number] [place] [address] [place] Iron and Iron binding capaci ty panelon 09-02-2022 Iron [Mass/Vol] 26 ug/dL Low 41-186 [facility] Comment on above: Order Comment: Speci men Type: BLOOD SPECIMEN [facility] Address: [address] [address] Performed By: #### V ITB6 #### [facility] [id number] [address] [place] [address] Iron binding capacity [Mass/Vol] 271 ug/dL Normal 232-386 [facility] Comment on above: Order Comment: Speci men Type: BLOOD SPECIMEN [facility] Address: [address] [address] Performed By: #### V ITB6 #### [facility] [id number] [address] [place] [address] Iron/TIBC [Molar ratio] 9.6 % Low 15.0-57.0 [facility] Comment on above: Order Comment: Speci men Type: BLOOD SPECIMEN [facility] Address: [address] [address] Performed By: #### V ITB6 #### [facility] [id number] [address] [place] [address] LDH SerPl-cCncon 09-02-2022 LDH [Catalytic activity/Vol] 207 U/L Normal 135-225 [facility] Comment on above: Order Comment: Speci men Type: BLOOD SPECIMENOrdering Facility: [facility] Address: [address] [place] [address] Performed By: #### 2 532-0, 5195-3, 19835-6, 69586-9 ####[facility] [id number] [facility] [id number] [address] [place] Mitochondria Ab IF Ql (S)on 09-02-2022 Mitochondria M2 Ab IA Qn (S) 1.7 Units Normal <=20.0 [facility] Comment on above: Order Comment: Speci men Type: BLOOD SPECIMEN [facility] Address: [address] [place] [address] Performed By: #### 5 763-8, COPPER #### [facility] CLIA [id number] [address] [place] [address] [place] Mitochondria M2 Ab Ql (S) Negative Normal Negative [facility] Comment on above: Order Comment: Speci men Type: BLOOD SPECIMEN [facility] Address: [address] [place] [address] Result Comment: Anti -mitochondrial antibody test is used as an aid in diagnosis of primary biliary cholangitis. Clinical correlation is required. Performed By: #### 5 763-8, COPPER #### [facility] CLIA [id number] [address] [place] NURSING PROGon 09-02-2022 NURSING PROG HNO ID: [id number] Author: Radha Mcpherson RN Service: Nursing Author [...] <1.5 Radha Mcpherson RN 3:59 PM Normal [facility] PATHOLOGIST INTERPRETATION C BC/DIFFon 09-02-2022 Container Finishing Inspector review Ernst (Unsp spec) [Interp] Reviewed by Flex Morataya MD Normal [facility] Comment on above: Order Comment: Speci men Type: BLOOD SPECIMENOrdering Facility: [facility] Address: [address] [place] [address] Performed By: #### S TFREV, 08471-7, [id number] ####[facility] [id number] [address] [place] STAFF REVIEW, CBCDIF Normal [facility] Comment on above: Order Comment: Speci men Type: BLOOD SPECIMENOrdering Facility: [facility] Address: [address] [address] Result Comment: Norm ocytic anemia without polychromasia Absolute lymphopenia without leukopenia Thrombocytopenia Performed By: #### S TFREV, 97691-3, [id number] ####[facility] [id number] [place] [address] [place] PHOSPHATIDYLETHANOL (PETH)on 09-02-2022 PETH 16:0/18.2 (PLPETH) 278 ng/mL Normal [facility] Comment on above: Order Comment: Speci men Type: BLOOD SPECIMEN [facility] Address: [address] [place] [address] Result Comment: Perf ormed By: [facility] [address] [place] [address] English Horn Player: Mic Rangel MD, PhD Performed By: #### 5 763-8, COPPER #### [facility] CLIA [id number] [address] [place] [address] [place] PETH 16:0/18:1 (POPETH) 578 ng/mL Normal [facility] Comment on above: Order Comment: Speci men Type: BLOOD SPECIMEN [facility] Address: [address] [place] [address] Result Comment: INTE RPRETIVE INFORMATION:Phosphatidylethanol (PEth), Whole [...] Research). Test developed and characteristics determined by [facility]. See Compliance Statement B: [email or web address] Performed By: #### 5 763-8, COPPER #### [facility] CLIA [id number] [address] [place] [address] [place] PT panel Coag (PPP)on 2022 INR Coag (PPP) [Relative time] 1.2 {INR} Normal 0.9-1.3 [facility] Comment on above: Order Comment: Speci men Type: BLOOD SPECIMEN [facility] Address: [address] [place], [place] [address] Result Comment: Aster min K Antagonist (VKA) Therapeutic Range: INR 2 to 3 (Target INR of 2.5) Note: For patients treated with VKA drugs, such as warfarin, the [place] [employer] 2012 Guideline recommends [...] ARRIAGA, et al. Chest 2012, 141:7S-47S Goldie SANTANA et al. [facility] 2017, 70: 252-289 Performed By: #### V ITB6 #### [facility] CLIA [id number] [address] [place] [address] PT Coag (PPP) [Time] 11.9 s Normal 9.7-13.0 [facility] Comment on above: Order Comment: Noe [place] Type: BLOOD SPECIMEN [facility] Address: [address] [place] [address] Performed By: #### V ITB6 #### [facility] CLIA [id number] [address] [place] [address] RBC MORPHOLOGYon 09-02-2022 Anisocytosis Ql (Bld) Present Normal [facility] Comment on above: Order Comment: Noe [place] Type: BLOOD SPECIMENOrdering Facility: [facility] Address: [address] [place] [address] Performed By: #### S TFREV, 27191-6, [id number] ####[facility] [id number] [place] [address] [facility] [place] Platelets Estimate (Bld) [#/Vol] Decreased Normal [facility] Comment on above: Order Comment: Noe [place] Type: BLOOD SPECIMENOrdering Facility: [facility] Address: [address] [place] [address] Performed By: #### S TFREV, 24452-7, [id number] ####[facility] [id number] [address] [place] RBC morphology finding Nom (Bld) Reviewed: see results of individual morphologies Normal [facility] Comment on above: Order Comment: Louiei men Type: BLOOD SPECIMENOrdering Facility: [facility] Address: [address] [address] Performed By: #### S TFREV, 97775-9, [id number] ####[facility] [id number] [place] [address] [place] Retics #on 09-02-2022 Reticulocytes (Bld) [#/Vol] 0.08254 10*3/uL Normal 0.018-0.100 [facility] Comment on above: Order Comment: Speci men Type: BLOOD SPECIMENOrdering Facility: [facility] Address: [address] [address] Performed By: #### 5 8410-2, 24018-0 ####[facility] [id number] [place] [address] [place] Reticulocytes (Bld) [#/Vol]o n 09-02-2022 Reticulocytes/100 RBC (Bld) 1.7 % Normal 0.4-2.0 [facility] Comment on above: Order Comment: Speci men Type: BLOOD SPECIMENOrdering Facility: [facility] Address: [address] [place] [address] Performed By: #### 5 8410-2, 69162-8 ####[facility] [id number] [place] [address] [place] Smooth muscle Ab Ql (S)on ACTIN SMOOTH MUSCLE IGG QUALITATIVE Negative Normal Negative [facility] Comment on above: Order Comment: Speci men Type: BLOOD SPECIMEN [facility] Address: [address] [address] Performed By: #### 5 763-8, COPPER #### [facility] CLIA [id number] [address] [place] ACTIN SMOOTH MUSCLE IGG QUANTITATIVE 5 Units Normal <20 [facility] Comment on above: Order Comment: Speci men Type: BLOOD SPECIMEN [facility] Address: [address] [id number] Performed By: #### 5 763-8, COPPER #### [facility] [facility] CLIA [id number] [address] [place] [address] [place] Tacrolimus Bld-mCncon 2022 Tacrolimus (Bld) [Mass/Vol] 7.4 ng/mL Normal 5.0-20.0 [facility] Comment on above: Order Comment: Speci men Type: BLOOD SPECIMENOrdering Facility: [facility] Address: [address] [address] Result Comment: Thes e reference ranges are [...] Test performed by chemiluminescent immunoassay using [employer]. 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 Film Casting Operator: PSCB Transcribe Date/Time: Sep 02 2022 3:34P Dictated by : PAMELA SIMMONS, DO This examination was interpreted and the report reviewed and electronically signed by: KAMRON SHAH MD on Sep 02 2022 4:04PM EST [id number] Normal [facility] VARICELLA ZOSTER IGGon 09-02 VARICELLA ZOSTER IGG, QUAL Positive Normal Positive [facility] Comment on above: Order Comment: Speci men Type: BLOOD SPECIMENOrdering Facility: [facility] Address: [address] [id number] Result Comment: The result suggests recent or past exposure to Varicella-Zoster virus or chickenpox vaccination or zoster vaccination. Positive result may also be seen due to presence of passively-transferred antibodies. Please correlate with patient's history. Performed By: #### 7 886-5, 2284-8, VZVG2 ####[facility] [id number] [address] [place] VARICELLA ZOSTER IGMon 09-02 VARICELLA ZOSTER, IGM 0.07 ISR Normal <=0.90 [facility] Comment on above: Order Comment: Noe [place] Type: BLOOD SPECIMEN [facility] Address: [address] [place], [place] [address] Result Comment: Specimen is icteric. Results may [...] 12 months post-infection or immunization. Performed By: [employer] [address] [place] [address] English Horn Player: Mic Rangel MD, PhD Performed By: #### 5 0189-0, 40284-8, 2132-9 #### [facility] CLIA [id number] [address] [place] [address] [place] aPTT PPPon 09-02-2022 aPTT Coag (PPP) [Time] 26.0 s Normal 23.0-32.4 [facility] Comment on above: Order Comment: Noe [place] Type: BLOOD SPECIMEN [facility] Address: [address] [place], [place] [address] Performed By: #### V ITB6 #### [facility] CLIA [id number] [address] [place] [address] CASE MGT INIT ASSESon 2022 CASE MGT INIT ASSES HNO ID: [id number] Author: JEY Felton Service: ? Author Type: Conference Concierge Type: Care Mgt Initial Assessment Filed: 09/01/2022 10:16 AM Note Text: CARE MANAGEMENT: ASSESSMENT AND DISCHARGE PLAN SERVICE DATE: September 01, 2022 SERVICE TIME: 10:15 AM PRIMARY CARE PHYSICIAN: Luis Abdalla DO Primary Contact: Extended Emergency Contact Information Primary Emergency Contact: Remedios Villalta Address: [address] [address] [facility] Mobile Relation: Spouse ADMISSION STATUS: Inpatient Insurance Provider: MEDICARE A AND B NEEDS PRIOR TO DISCHARGE Needs Prior to Discharge: To Be Determined POTENTIAL TRANSITION PLANS Home Patient's perception of need for this admission: Pt is aware of admission and is in agreement ADVANCE DIRECTIVES Current Advance Directive: Health Care Power of Auditing Control Clerk In Chart: Yes Up To Date and Valid: Yes CAREGIVER ASSESSMENT Caregiver is ready, willing and able to meet the patient's needs as recommended by the inter-professional team:: Yes Name of Caregiver: Remedios Villalta [phone] Patient's transition needs and plan for meeting these needs: Pt is aware of admission and is in agreement FREEDOM OF CHOICE EXPLAINED: [place] of Choice Given: No Reason Not Given: [...] clearance for D/C SIGNATURE: Delilah Hightower MSW, INDUSTRIAL MANAGEMENT TEACHER PATIENT NAME: Chuckie Villalta DATE: September 01, 2022 TIME: 10:14 AM CONTACT #: Normal [facility] CBC panel Auto (Bld)on 09-01 Erythrocyte distribution width (RBC) [Ratio] 16.8 % High 11.5-15.0 [facility] Comment on above: Order Comment: Speci men Type: BLOOD SPECIMENOrdering Facility: [facility] Address: [address] [place] [address] [place] [address] Performed By: #### 5 8410-2 ####[facility] [id number] [address] [place] Hematocrit (Bld) [Volume fraction] 37.0 % Low 39.0-51.0 [facility] Comment on above: Order Comment: Speci men Type: BLOOD SPECIMENOrdering Facility: [facility] Address: [address] [place], [place] [address] Performed By: #### 5 8410-2 ####[facility]IA [id number] [place] [address] [place] Hemoglobin (Bld) [Mass/Vol] 13.3 g/dL Normal 13.0-17.0 [facility] Comment on above: Order Comment: Speci men Type: BLOOD SPECIMENOrdering Facility: [facility] Address: [address] [place], [place] [address] Performed By: #### 5 8410-2 ####[facility]IA [id number] [place] [address] [place] MCH (RBC) [Entitic mass] 30.1 pg Normal 26.0-34.0 [facility] Comment on above: Order Comment: Speci men Type: BLOOD SPECIMENOrdering Facility: [facility] Address: [address] [place], [place] [address] Performed By: #### 5 8410-2 ####[facility]IA [id number] [address] [place] MCHC (RBC) [Mass/Vol] 35.9 g/dL Normal 30.5-36.0 [facility] Comment on above: Order Comment: Speci men Type: BLOOD SPECIMENOrdering Facility: [facility] Address: [address] [place], [place] [address] Performed By: #### 5 8410-2 ####[facility] [id number] [address] STATES OF [facility] MCV (RBC) [Entitic vol] 83.7 fL Normal 80.0-100.0 [facility] Comment on above: Order Comment: Speci men Type: BLOOD SPECIMENOrdering Facility: [facility] Address: [address] [place] [address] Performed By: #### 5 8410-2 ####[facility] LABIA [id number] [address] [place] Nucleated RBC (Bld) [#/Vol] 10*3/uL Normal <0.01 [facility] Comment on above: Order Comment: Speci men Type: BLOOD SPECIMENOrdering Facility: [facility] Address: [address] [place] [address] Performed By: #### 5 8410-2 ####[facility] LABIA [id number] [place] [address] [place] Platelet mean volume (Bld) [Entitic vol] 10.9 fL Normal 9.0-12.7 [facility] Comment on above: Order Comment: Speci men Type: BLOOD SPECIMENOrdering Facility: [facility] Address: [address] [place] [address] Performed By: #### 5 8410-2 ####[facility]IA [id number] [place] [address] [place] Platelets (Bld) [#/Vol] 56 10*3/uL Low 150-400 [facility] Comment on above: Order Comment: Speci men Type: BLOOD SPECIMENOrdering Facility: [facility] Address: [address] [place] [address] Result Comment: Resu lts checked and verified.No clot detected. Performed By: #### 5 8410-2 ####[facility] LABIA [id number] [place] [address] [place] RBC (Bld) [#/Vol] 4.42 10*6/uL Normal 4.20-6.00 [facility] Comment on above: Order Comment: Speci men Type: BLOOD SPECIMENOrdering Facility: [facility] Address: [address] [place], [place] [address] Performed By: #### 5 8410-2 ####[facility]CLIA [id number] [place] [address] [facility] WBC (Bld) [#/Vol] 5.59 10*3/uL Normal 3.70-11.00 [facility] Comment on above: Order Comment: Speci men Type: BLOOD SPECIMENOrdering Facility: [facility] Address: [address] [place], [place] [address] Performed By: #### 5 8410-2 ####[facility]CLIA [id number] [place] [address] [place] Comp Metab 2000 Pnl SerPlon 09-01-2022 Bilirubin [Mass/Vol] 8.5 mg/dL High 0.2-1.3 [facility] Comment on above: Order Comment: Speci men Type: BLOOD SPECIMEN [facility] Address: [address] [place], [place] [address] Performed By: #### 5 763-8, COPPER #### [facility] CLIA [id number] [address] [place] [address] [place] Comprehensive metabolic 2000 panelon 09-01-2022 Albumin [Mass/Vol] 4.0 g/dL Normal 3.9-4.9 [facility] Comment on above: Order Comment: Speci men Type: BLOOD SPECIMEN [facility] Address: [address] [place], [place] [address] Performed By: #### 5 763-8, COPPER #### [facility] CLIA [id number] [address] [place] [address] [place] ALP [Catalytic activity/Vol] 65 U/L Normal 38-113 [facility] Comment on above: Order Comment: Speci men Type: BLOOD SPECIMEN [facility] Address: [address] Performed By: #### 5 763-8, COPPER #### [facility] CLIA [id number] [address] [place] [address] [place] ALT [Catalytic activity/Vol] 147 U/L High 10-54 [facility] Comment on above: Order Comment: Speci men Type: BLOOD SPECIMEN [facility] Address: [address] Performed By: #### 5 763-8, COPPER #### [facility] CLIA [id number] [address] [place] [address] [place] Anion gap [Moles/Vol] 10 mmol/L Normal 9-18 [facility] Comment on above: Order Comment: Speci men Type: BLOOD SPECIMEN [facility] Address: [address] Performed By: #### 5 763-8, COPPER #### [facility] CLIA [id number] [address] [place] [address] [place] AST [Catalytic activity/Vol] 617 U/L High 14-40 [facility] Comment on above: Order Comment: Speci men Type: BLOOD SPECIMEN [facility] Address: [address] Performed By: #### 5 763-8, COPPER #### [facility] CLIA [id number] [address] [place] [address] [place] Calcium [Mass/Vol] 8.6 mg/dL Normal 8.5-10.2 [facility] Comment on above: Order Comment: Speci men Type: BLOOD SPECIMEN [facility] Address: [address] Performed By: #### 5 763-8, COPPER #### [facility] CLIA [id number] [address] [place] [address] [place] Chloride [Moles/Vol] 102 mmol/L Normal 97-105 [facility] Comment on above: Order Comment: Speci men Type: BLOOD SPECIMEN [facility] Address: [address] [place] [address] Performed By: #### 5 763-8, COPPER #### [facility] CLIA [id number] [address] [place] [address] [place] CO2 [Moles/Vol] 23 mmol/L Normal 22-30 [facility] Comment on above: Order Comment: Speci men Type: BLOOD SPECIMEN [facility] Address: [address] [place] [address] Performed By: #### 5 763-8, COPPER #### [facility] CLIA [id number] [address] [place] [address] [place] Creatinine [Mass/Vol] 1.23 mg/dL High 0.73-1.22 [facility] Comment on above: Order Comment: Speci men Type: BLOOD SPECIMEN [facility] Address: [address] [place] [address] Performed By: #### 5 763-8, COPPER #### [facility] CLIA [id number] [facility] [address] OF [place] ESTIMATED GLOMERULAR FILTRATION RATE 78 mL/min/1.73m??? Normal >=60 [facility] Comment on above: Order Comment: Speci men Type: BLOOD SPECIMEN [facility] Address: [address] [place] [address] Result Comment: Brenda mated Glomerular Filtration Rate [...] Performed By: #### 5 763-8, COPPER #### [facility] CLIA [id number] [address] [facility] [address] [address] [place] Glucose [Mass/Vol] 131 mg/dL High 74-99 [facility] Comment on above: Order Comment: Speci men Type: BLOOD SPECIMEN [facility] Address: [address] [place] [address] Result Comment: The [place] Diabetes Association (ADA) provides guidance for cutoff [...] Standards of Medical Care in Diabetes 2016, [place] [employer] Association. Diabetes Care. 2016.39(Suppl 1). Performed By: #### 5 763-8, COPPER #### [facility] CLIA [id number] [address] [place] [address] [place] Potassium [Moles/Vol] 3.7 mmol/L Normal 3.7-5.1 [facility] Comment on above: Order Comment: Louiei mercy Type: BLOOD SPECIMEN [facility] Address: [address] [place] [address] Performed By: #### 5 763-8, COPPER #### [facility] CLIA [id number] [address] [address] [place] Protein [Mass/Vol] 6.2 g/dL Low 6.3-8.0 [facility] Comment on above: Order Comment: Speci men Type: BLOOD SPECIMEN [facility] Address: [address] [address] Performed By: #### 5 763-8, COPPER #### [facility] CLIA [id number] [address] [place] [address] Sodium [Moles/Vol] 135 mmol/L Low 136-144 [facility] Comment on above: Order Comment: Speci men Type: BLOOD SPECIMEN [facility] Address: [address] [address] Performed By: #### 5 763-8, COPPER #### [facility] CLIA [id number] [address] [place] [address] [place] Urea nitrogen [Mass/Vol] 11 mg/dL Normal 9-24 [facility] Comment on above: Order Comment: Speci men Type: BLOOD SPECIMEN [facility] Address: [address] [address] Performed By: #### 5 763-8, COPPER #### [facility] CLIA [id number] [address] [place] [address] [facility] ED NOTEon 09-01-2022 ED NOTE HNO ID: [id number] Author: Max Cuellar MD Service: Emergency Medicine [...] Updated Med QB ED Course as of 09/01/225 Others' Documentation Sun Aug 31, 20221924 Lactate (POCT)(!): 4.7 Elevated concerning for sepsis. [KO] 1924 CBC + DIFF(!): WBC 17.95(!) RBC 5.58 Hemoglobin 16.7 Hematocrit 45.3 MCV 81.2 MCH 29.9 MCHC 36.9(!) RDW-CV 17.9(!) Platelet Count 164 MPV 10.8 Neut% 85.2 Abs Neut (ANC) 15.29(!) Lymph% 4.9 Abs Lymph 0.88(!) Zavala% 9.0 Abs Zavala 1.61(!) Eosin% 0.0 Abs Eosin <0.03 Baso% [...] [HJ] Adeline Elmore MD [KO] Raina Reid, DO Clinical Impressions as of 09/01/22 0225 [...] the medicine service. Max Cuellar MD Normal [facility] HISTORY PHYSICALon 3 HISTORY PHYSICAL HNO ID: [id number] Author: Reymundo Charles MD Service: Hospital Medicine Author Type: Physician Type: HANDP Filed: 09/01/2022 12:49 AM Note Text: DEPARTMENT OF HOSPITAL MEDICINE HISTORY AND PHYSICAL EXAM SERVICE DATE: 09/01/2022 SERVICE TIME: 12:42 AM Primary Care Physician: Luis Abdalla, DO NIGHT AND WEEKEND COVERAGE: Please page [phone] until 7:30am this morning. Afterwards, patient will [...] 15.29 (*) Abs Lymph 0.88 (*) Abs Zavala 1.61 (*) Abs Immature Gran 0.11 (*) All other components within normal limits Narrative: This is an appended report. These results have been appended to a previously verified report. ED BG VENOUS/LAB PANELS - Abnormal; Notable for the following components: Lactate (POCT) 4.7 (*) All other components within normal limits Narrative: Meter ID:ED Location:ED [facility], [address] [place] [address], [facility] ED BG VENOUS/LAB PANELS - Abnormal; Notable for the following components: Lactate (POCT) 2.7 (*) All other components within normal limits Narrative: Meter ID:ED Location:ED [facility], [address] [place] [address], [facility] PROTHROMBIN TIME/PT - Normal EXPEDITED COVID19 - Normal Narrative: This test has been authorized by FDA under an Emergency Use Authorization (EUA). Test performed by [facility], [facility] [place], [address] [place] [address]. LACTATE - ED (POC) LACTATE - ED [...] MEDICATIONS: Cu (more content not included)... Normal [facility] bilirubin panel [Ma ss/Vol]on 09-01-2022 Bilirubin.conjugated [Mass/Vol] 4.7 mg/dL High <0.2 [facility] Comment on above: Order Comment: Noe [place] Type: BLOOD SPECIMEN [facility] Address: [address] [place] [address] Performed By: #### 5 763-8, COPPER #### [facility] CLIA [id number] [address] [place] [address] [place] Bilirubin.indirect [Mass/Vol] 3.8 mg/dL High <1.4 [facility] Comment on above: Order Comment: Noe [place] Type: BLOOD SPECIMEN [facility] Address: [address] [place] [address] Performed By: #### 5 763-8, COPPER #### [facility] CLIA [id number] [facility] [place] [address] [place] SEPSIS LACTATEon 09-01-2022 Lactate [Moles/Vol] 0.9 mmol/L Normal <=2.0 [facility] Comment on above: Order Comment: Noe [place] Type: BLOOD SPECIMEN [facility] Address: [address] [place] [address] Performed By: #### 5 763-8, COPPER #### [facility] CLIA [id number] [facility], [place] [address] [place] US ABD RIGHT [...] biliary ductal dilation, similar compared to 10/30/2021. Film Casting Operator: PSCB Transcribe Date/Time: Sep 01 2022 8:45P Dictated by : MOLLY MAI MD This examination was interpreted and the report reviewed and electronically signed by: KATERIN ALY MD on Sep 01 2022 9:14PM EST [id number] Normal [facility] XR CHEST 1V FRONTAL PORTon 0 [...] Lower ACDF. IMPRESSION: No acute cardiopulmonary process. Film Casting Operator: PSCB Transcribe Date/Time: Sep 01 2022 1:11A Dictated by : GLADYS VIEYRA MD This examination was interpreted and the report reviewed and electronically signed by: GLADYS VIEYRA MD on Sep 01 2022 1:12AM EST [id number] Normal [facility] Bacteria Bld Culton 08-31-19 23 Bacteria identified Cx Nom (Bld) CULTURE, BLOOD: No growth 5 days Normal [facility] Comment on above: Performed By: #### 2 4323-8 #### [facility] CLIA [id number] [address] STATES [place] Bacteria identified Cx Nom (Bld) CULTURE, BLOOD: No growth 5 days Normal [facility] Comment on above: Performed By: #### 6 00-7 ####[facility] [id number] [address] [place] Bilirub Conj SerPl-mCncon Bilirubin.conjugated [Mass/Vol] 0.4 mg/dL High <0.2 [facility] Comment on above: Order Comment: Speci men Type: BLOOD SPECIMEN [facility] Address: [address] [place] [address] Result Comment: Resu lts may be falsely decreased due to interference from hemolysis. Suggest reorder as clinically indicated. Performed By: #### 5 763-8, COPPER #### [facility] CLIA [id number] [address] [place] CBC W Auto Differential pane l (Bld)on 08-31-2022 Basophils (Bld) [#/Vol] 0.06 10*3/uL Normal <0.11 [facility] Comment on above: Order Comment: Speci men Type: BLOOD SPECIMEN [facility] Address: [address] [place] [address] Performed By: #### V ITB6 #### [facility] CLIA [id number] [address] [place] [address] Basophils/100 WBC (Bld) 0.3 % Normal [facility] Comment on above: Order Comment: Speci men Type: BLOOD SPECIMEN [facility] Address: [address] [place] [address] Performed By: #### V ITB6 #### [facility] CLIA [id number] [address] [place] [address] Differential cell count method Nom (Bld) Auto Normal [facility] Comment on above: Order Comment: Speci men Type: BLOOD SPECIMEN [facility] Address: [address] [place] [address] Performed By: #### V ITB6 #### [facility] CLIA [id number] [address] [place] [address] Eosinophils (Bld) [#/Vol] 10*3/uL Normal <0.46 [facility] Comment on above: Order Comment: Speci men Type: BLOOD SPECIMEN [facility] Address: [address] [place] [address] Performed By: #### V ITB6 #### [facility] CLIA [id number] [address] [place] [address] Eosinophils/100 WBC (Bld) 0.0 % Normal [facility] Comment on above: Order Comment: Speci men Type: BLOOD SPECIMEN [facility] Address: [address] [place] [address] Performed By: #### V ITB6 #### [facility] CLIA [id number] [address] [place] [address] Erythrocyte distribution width (RBC) [Ratio] 17.9 % High 11.5-15.0 [facility] Comment on above: Order Comment: Speci men Type: BLOOD SPECIMEN [facility] Address: [address] [place] [address] Performed By: #### V ITB6 #### [facility] CLIA [id number] [address] [place] [address] Hematocrit (Bld) [Volume fraction] 45.3 % Normal 39.0-51.0 [facility] Comment on above: Order Comment: Speci men Type: BLOOD SPECIMEN [facility] Address: [address] [place] [address] Performed By: #### V ITB6 #### [facility] CLIA [id number] [address] [place] [address] Hemoglobin (Bld) [Mass/Vol] 16.7 g/dL Normal 13.0-17.0 [facility] Comment on above: Order Comment: Speci men Type: BLOOD SPECIMEN [facility] Address: [address] [place] [address] Performed By: #### V ITB6 #### [facility] CLIA [id number] [address] [place] [address] Immature granulocytes (Bld) [#/Vol] 0.11 10*3/uL High <0.10 [facility] Comment on above: Order Comment: Speci men Type: BLOOD SPECIMEN [facility] Address: [address] [address] Performed By: #### V ITB6 #### [facility] CLIA [id number] [address] [place] [address] Immature granulocytes/100 WBC (Bld) 0.6 % Normal [facility] Comment on above: Order Comment: Speci men Type: BLOOD SPECIMEN [facility] Address: [address] [place] [address] Performed By: #### V ITB6 #### [facility] CLIA [id number] [address] [place] [address] Lymphocytes (Bld) [#/Vol] 0.88 10*3/uL Low 1.00-4.00 [facility] Comment on above: Order Comment: Speci men Type: BLOOD SPECIMEN [facility] Address: [address] [place] [address] Performed By: #### V ITB6 #### [facility] CLIA [id number] [address] [place] [address] Lymphocytes/100 WBC (Bld) 4.9 % Normal [facility] Comment on above: Order Comment: Speci men Type: BLOOD SPECIMEN [facility] Address: [address] [place] [address] Performed By: #### V ITB6 #### [facility] CLIA [id number] [address] [place] [address] MCH (RBC) [Entitic mass] 29.9 pg Normal 26.0-34.0 [facility] Comment on above: Order Comment: Speci men Type: BLOOD SPECIMEN [facility] Address: [address] [place] [address] Performed By: #### V ITB6 #### [facility] CLIA [id number] [address] [place] [address] MCHC (RBC) [Mass/Vol] 36.9 g/dL High 30.5-36.0 [facility] Comment on above: Order Comment: Speci men Type: BLOOD SPECIMEN [facility] Address: [address] [place] [address] Performed By: #### V ITB6 #### [facility] CLIA [id number] [address] [place] [address] MCV (RBC) [Entitic vol] 81.2 fL Normal 80.0-100.0 [facility] Comment on above: Order Comment: Speci men Type: BLOOD SPECIMEN [facility] Address: [address] [place] [address] Performed By: #### V ITB6 #### [facility] CLIA [id number] [address] [place] [address] Monocytes (Bld) [#/Vol] 1.61 10*3/uL High <0.87 [facility] Comment on above: Order Comment: Speci men Type: BLOOD SPECIMEN Ordering Facility: [facility] Address: [address] [place] [address] Performed By: #### V ITB6 #### [facility] CLIA [id number] [address] [place] [address] Monocytes/100 WBC (Bld) 9.0 % Normal [facility] Comment on above: Order Comment: Speci men Type: BLOOD SPECIMEN Ordering Facility: [facility] Address: [address] [address] Performed By: #### V ITB6 #### [facility] CLIA [id number] [address] [place] [address] Neutrophils (Bld) [#/Vol] 15.29 10*3/uL High 1.45-7.50 [facility] Comment on above: Order Comment: Speci men Type: BLOOD SPECIMEN Ordering Facility: [facility] Address: [address] [place] [address] Performed By: #### V ITB6 #### [facility] CLIA [id number] [address] [place] [address] Neutrophils/100 WBC (Bld) 85.2 % Normal [facility] Comment on above: Order Comment: Speci men Type: BLOOD SPECIMEN Ordering Facility: [facility] Address: [address] [place] [address] Performed By: #### V ITB6 #### [facility] CLIA [id number] [address] [place] [address] Nucleated RBC (Bld) [#/Vol] 10*3/uL Normal <0.01 [facility] Comment on above: Order Comment: Speci men Type: BLOOD SPECIMEN Ordering Facility: [facility] Address: [address] [place] [address] Performed By: #### V ITB6 #### [facility] CLIA [id number] [address] [place] [address] Nucleated RBC/100 WBC (Bld) [Ratio] 0.0 /100 WBC Normal [facility] Comment on above: Order Comment: Speci men Type: BLOOD SPECIMEN Ordering Facility: [facility] Address: [address] [address] Performed By: #### V ITB6 #### [facility] CLIA [id number] [address] [place] [address] Platelet mean volume (Bld) [Entitic vol] 10.8 fL Normal 9.0-12.7 [facility] Comment on above: Order Comment: Speci men Type: BLOOD SPECIMEN Ordering Facility: [facility] Address: [address] [address] Performed By: #### V ITB6 #### [facility] CLIA [id number] [address] [place] [address] Platelets (Bld) [#/Vol] 164 10*3/uL Normal 150-400 [facility] Comment on above: Order Comment: Speci men Type: BLOOD SPECIMEN Ordering Facility: [facility] Address: [address] [address] Performed By: #### V ITB6 #### [facility] CLIA [id number] [address] [place] [address] RBC (Bld) [#/Vol] 5.58 10*6/uL Normal 4.20-6.00 [facility] Comment on above: Order Comment: Speci men Type: BLOOD SPECIMEN Ordering Facility: [facility] Address: [address] [address] Performed By: #### V ITB6 #### [facility] CLIA [id number] [address] [place] [address] WBC (Bld) [#/Vol] 17.95 10*3/uL High 3.70-11.00 [facility] Comment on above: Order Comment: Speci men Type: BLOOD SPECIMEN Ordering Facility: [facility] Address: [address] [place] [address] Performed By: #### V ITB6 #### [facility] CLIA [id number] [address] [place] [address] CT ABD/PEL W IVCONon 023 CT ABD/PEL W IVCON * * *Final Report* * * DATE OF EXAM: Aug 31 2022 7:24PM [facility] 0530 - CT ABD/PEL W IVCON / [...] Tissues: No significant finding. Lower thorax: Unremarkable. Continuous Mining Machine Coal Miner (topogram) images: No additional findings. IMPRESSION: ACUTE EDEMATOUS PANCREATITIS. NO FLUID COLLECTIONS. Film Casting Operator: GUILLE Transcribe Date/Time: Aug 31 2022 7:29P Dictated by : RADHA FRANCO MD This examination was interpreted and the report reviewed and electronically signed by: LAQUITA NUÑEZ MD on Aug 31 2022 8:01PM EST [id number] Normal [facility] Comprehensive metabolic 2000 panelon 08-31-2022 Albumin [Mass/Vol] 5.0 g/dL High 3.9-4.9 [facility] Comment on above: Order Comment: Speci men Type: BLOOD SPECIMENOrdering Facility: [facility] Address: [address] [place] [address] Performed By: #### 2 4323-8, 47902-2, 3040-3, 92652-9, 89778-2 ####[facility] LAB[facility] [id number] [place] [address] [place] ALP [Catalytic activity/Vol] 64 U/L Normal 38-113 [facility] Comment on above: Order Comment: Speci men Type: BLOOD SPECIMENOrdering Facility: [facility] Address: [address] [place] [address] Performed By: #### 2 4323-8, 91996-0, 3040-3, 00554-6, 91423-8 ####[facility] [id number] [place] [address] [place] ALT [Catalytic activity/Vol] 21 U/L Normal 10-54 [facility] Comment on above: Order Comment: Speci men Type: BLOOD SPECIMENOrdering Facility: [facility] Address: [address] [place] [address] Performed By: #### 2 4323-8, 15909-5, 3040-3, 28441-4, 99781-3 ####[facility] [id number] [place] [address] [place] Anion gap [Moles/Vol] 21 mmol/L High 9-18 [facility] Comment on above: Order Comment: Speci men Type: BLOOD SPECIMENOrdering Facility: [facility] Address: [address] [place] [address] Performed By: #### 2 4323-8, 26134-1, 3040-3, 97989-5, 17482-0 ####[facility] [id number] [place] [address] [place] AST [Catalytic activity/Vol] 31 U/L Normal 14-40 [facility] Comment on above: Order Comment: Speci men Type: BLOOD SPECIMENOrdering Facility: [facility] Address: [address] [place] [address] Performed By: #### 2 4323-8, 80548-5, 0-3, 81037-3, 70530-7 ####[facility] [id number] [place] [address] [place] Bilirubin [Mass/Vol] 4.1 mg/dL High 0.2-1.3 [facility] Comment on above: Order Comment: Speci men Type: BLOOD SPECIMENOrdering Facility: [facility] Address: [address] [place] [address] Performed By: #### 2 4323-8, 63382-1, 0-3, 34841-3, 37383-9 ####[facility] [id number] [place] [id number] [place] Calcium [Mass/Vol] 10.1 mg/dL Normal 8.5-10.2 [facility] Comment on above: Order Comment: Speci men Type: BLOOD SPECIMENOrdering Facility: [facility] Address: [address] [place] [address] Performed By: #### 2 4323-8, 77056-0, 3040-3, 59161-9, 08536-7 ####[facility] [id number] [place] [address] [place] Chloride [Moles/Vol] 95 mmol/L Low 97-105 [facility] Comment on above: Order Comment: Speci men Type: BLOOD SPECIMENOrdering Facility: [facility] Address: [address] [place] [address] Performed By: #### 2 4323-8, 01292-2, 3040-3, 51141-4, 58997-2 ####[facility] [id number] [place] [address] [place] CO2 [Moles/Vol] 21 mmol/L Low 22-30 [facility] Comment on above: Order Comment: Speci men Type: BLOOD SPECIMENOrdering Facility: [facility] Address: [address] [place] [address] Performed By: #### 2 4323-8, 77570-1, 3040-3, 49259-7, 77707-2 ####[facility] [id number] [place] [address] [place] Creatinine [Mass/Vol] 1.66 mg/dL High 0.73-1.22 [facility] Comment on above: Order Comment: Speci men Type: BLOOD SPECIMENOrdering Facility: [facility] Address: [address] [place] [address] Performed By: #### 2 4323-8, 57399-9, 3040-3, 71741-5, 32919-6 ####[facility] [id number] [place] [address] [place] ESTIMATED GLOMERULAR FILTRATION RATE 54 mL/min/1.73m??? Low >=60 [facility] Comment on above: Order Comment: Speci men Type: BLOOD SPECIMENOrdering Facility: [facility] Address: [address] [place] [address] Result Comment: Brenda mated Glomerular Filtration Rate [...] actual GFR. Performed By: #### 2 4323-8, 10175-3, 3040-3, 11796-3, 28914-1 ####[facility] [id number] [address] [address] [place] Glucose [Mass/Vol] 129 mg/dL High 74-99 [facility] Comment on above: Order Comment: [place] Type: BLOOD SPECIMENOrdering Facility: [facility] Address: [address] [id number] Result Comment: The [place] Diabetes Association (ADA) provides guidance for cutoff [...] Standards of Medical Care in Diabetes 2016, [place] [employer]. Diabetes Care. 2016.39(Suppl 1). Performed By: #### 2 4323-8, 74908-3, 3040-3, 90471-7, 47352-7 ####[facility] [id number] [address] [address] [place] Potassium [Moles/Vol] 4.0 mmol/L Normal 3.7-5.1 [facility] Comment on above: Order Comment: [place]e [place] Type: BLOOD SPECIMENOrdering Facility: [facility] Address: [address] [place] [address] Performed By: #### 2 4323-8, 00401-7, 3040-3, 61277-3, 79941-3 ####[facility] [id number] [place] [address] [place] Protein [Mass/Vol] 7.7 g/dL Normal 6.3-8.0 [facility] Comment on above: Order Comment: Speci men Type: BLOOD SPECIMENOrdering Facility: [facility] Address: [address] [place], [place] [address] Performed By: #### 2 4323-8, 02097-8, 3040-3, 60891-4, 79221-6 ####[facility] [id number] [place] [address] [place] Sodium [Moles/Vol] 137 mmol/L Normal 136-144 [facility] Comment on above: Order Comment: Speci men Type: BLOOD SPECIMENOrdering Facility: [facility] Address: [address] [place] [address] Performed By: #### 2 4323-8, 57874-7, 3040-3, 56984-0, 89329-9 ####[facility] [id number] [place] [address] [place] Urea nitrogen [Mass/Vol] 18 mg/dL Normal 9-24 [facility] Comment on above: Order Comment: Speci men Type: BLOOD SPECIMENOrdering Facility: [facility] Address: [address] [place], [place] [phone] Performed By: #### 2 4323-8, 54332-2, 3040-3, 24303-6, 38942-6 ####[facility] [id number] [place] [id number] [place] ED NOTEon 08-31-2022 ED NOTE HNO ID: [id number] Author: Lorena Unger RN Service: Emergency Medicine [...] three days either due to vomiting. Normal [facility] ED NOTE HNO ID: [id number] Author: Reyes Schaefer RN Service: Emergency Medicine Author Type: Registered Nurse Type: ED Notes Filed: 08/31/2022 7:10 PM Note Text: Report given to BATOOL Rebollar Normal [facility] ED NOTE HNO ID: [id number] Author: Reyes Schaefer RN Service: Emergency Medicine [...] sating 100% RA. Pt hypertensive 200/96. Normal [facility] ED PROV NOTEon 08-31-2022 ED PROV NOTE HNO ID: [id number] Author: Ranjit Dawson MD Service: Emergency Medicine [...] components with (more content not included)... Normal [facility] Lipase SerPl-cCncon 08-31-19 23 Lipase [Catalytic activity/Vol] 894 U/L High 16-61 [facility] Comment on above: Order Comment: Speci men Type: BLOOD SPECIMEN Order[facility] Facility[facility] Address: [address] [place] [place] [address] Performed By: #### 5 763-8, COPPER #### [facility] CLIA [id number] [address] [facility] [place] [address] [place] Magnesium SerPl-mCncon 08-31 Magnesium [Mass/Vol] 1.6 mg/dL Low 1.7-2.3 [facility] Comment on above: Order Comment: [place] Type: BLOOD SPECIMENOrdering Facility: [facility] Address: [address] [place] [address] Performed By: #### 2 4323-8, 29604-5, 3040-3, 03423-9, 93833-7 ####[facility] [id number] [facility] [address] [place] PT panel Coag (PPP)on 2022 INR Coag (PPP) [Relative time] 1.2 {INR} Normal 0.9-1.3 [facility] Comment on above: Order Comment: [place]e [place] Type: BLOOD SPECIMEN [facility] Address: [address] [place] [address] Result Comment: Aster min K Antagonist (VKA) Therapeutic Range: INR 2 to 3 (Target INR of 2.5) Note: For patients treated with VKA drugs, such as warfarin, the [place] [employer] 2012 Guideline recommends [...] Chest 2012, 141:7S-47S Goldie RA, et al. [facility] 2017, 70: 252-289 Performed By: #### 5 0189-0, 62672-1, 2132-03 #### [facility] CLIA [id number] [address] [place] [address] [place] PT Coag (PPP) [Time] 12.7 s Normal 9.7-13.0 [facility] Comment on above: Order Comment: Speci men Type: BLOOD SPECIMEN [facility]: [facility] Address: [address] [place] [address] Performed By: #### 5 0189-0, 87408-8, 2132-03 #### [facility] CLIA [id number] [address] [place] [address] [place] Procalcitonin SerPl-mCncon 0 08-31-2022 Procalcitonin [Mass/Vol] ng/mL Normal <0.09 [facility] Comment on above: Order Comment: Speci men Type: BLOOD SPECIMEN Ordering Facility: [facility] Address: [address] [place] [address] Result Comment: For a guided interpretation of test results, please visit the Change in Procalcitonin Calculator, [email or web address]. Performed By: #### 5 763-8, COPPER #### [facility] CLIA [id number] [address] [place] [address] [place] SARS-CoV-2 RNA Resp Ql NOLBERTO+p robeon 08-31-2022 SARS-CoV-2 (COVID-19) RNA NOLBERTO+probe Ql (Resp) COVID 19 RESULT: Not detected The method used is RT-PCR or an equivalent NAAT method. Reference Range(the expected result in uninfected individuals): Not detected Normal [facility] Comment on above: Performed By: #### 2 4323-8 #### [facility] CLIA [id number] [facility] [place] [address] [place] Tacrolimus Bld-mCncon 2022 Tacrolimus (Bld) [Mass/Vol] 7.5 ng/mL Normal 5.0-20.0 [facility] Comment on above: Order Comment: [place]e [place] Type: BLOOD SPECIMEN Order[facility] Facility: [facility] Address: [address] [place] [address] Result Comment: Thes e reference ranges are [...] Test performed by chemiluminescent immunoassay using [employer]. Performed By: #### V ITB6 #### [facility] CLIA [id number] [address] [place] [address] Tacrolimus (Bld) [Mass/Vol] 7.3 ng/mL Normal 5.0-20.0 [facility] Comment on above: Order Comment: [place]e [place] Type: BLOOD SPECIMEN Order[facility] Facility: [facility] Address: [address] [place] [address] Result Comment: Thes e reference ranges are [...] Test performed by chemiluminescent immunoassay using [employer]. Performed By: #### 2 4323-8 #### [facility] CLIA [id number] [address] [place] CBC W Auto Differential pane l (Bld)on 07-07-2022 Basophils (Bld) [#/Vol] 10*3/uL Normal <0.11 [facility] Comment on above: Order Comment: Speci men Type: BLOOD SPECIMEN [facility] Address: [address] Performed By: #### 5 0189-0, , 2132-03 #### [facility] CLIA [id number] [address] [place] [address] [place] Basophils/100 WBC (Bld) 0.2 % Normal [facility] Comment on above: Order Comment: Speci men Type: BLOOD SPECIMEN Order[facility] Facility: [facility] Address: [address] [place] [address] Performed By: #### 5 0189-0, , 2132-03 #### [facility] CLIA [id number] [address] [place] [address] [place] Differential cell count method Nom (Bld) Auto Normal [facility] Comment on above: Order Comment: Speci men Type: BLOOD SPECIMEN Order[facility] Facility: [facility] Address: [address] [place] [address] Performed By: #### 5 0189-0, , 2132-03 #### [facility] CLIA [id number] [address] [place] [address] [place] Eosinophils (Bld) [#/Vol] 0.10 10*3/uL Normal <0.46 [facility] Comment on above: Order Comment: Speci men Type: BLOOD SPECIMEN Order[facility] Facility: [facility] Address: [address] Performed By: #### 5 0189-0, , 2132-03 #### [facility] CLIA [id number] [address] [place] [address] [place] Eosinophils/100 WBC (Bld) 2.0 % Normal [facility] Comment on above: Order Comment: Speci men Type: BLOOD SPECIMEN Ordering Facility: [facility] Address: [address] [place], [place] [address] Performed By: #### 5 0189-0, 06898-8, 2132-03 #### [facility] CLIA [id number] [address] [place] [address] [place] Erythrocyte distribution width (RBC) [Ratio] 12.9 % Normal 11.5-15.0 [facility] Comment on above: Order Comment: Speci men Type: BLOOD SPECIMEN Ordering Facility: [facility] Address: [address] [place], [place] [address] Performed By: #### 5 0189-0, 79221-8, 2132-03 #### [facility] CLIA [id number] [address] [place] [address] [place] Hematocrit (Bld) [Volume fraction] 39.1 % Normal 39.0-51.0 [facility] Comment on above: Order Comment: Speci men Type: BLOOD SPECIMEN Ordering Facility: [facility] Address: [address] [place], [place] [address] Performed By: #### 5 0189-0, 86045-3, 2132-03 #### [facility] CLIA [id number] [address] [place] [address] [place] Hemoglobin (Bld) [Mass/Vol] 13.3 g/dL Normal 13.0-17.0 [facility] Comment on above: Order Comment: Speci men Type: BLOOD SPECIMEN Ordering Facility: [facility] Address: [address] [place] [address] Performed By: #### 5 0189-0, 90931-9, 2132-03 #### [facility] CLIA [id number] [address] [place] [address] [place] Immature granulocytes (Bld) [#/Vol] 0.03 10*3/uL Normal <0.10 [facility] Comment on above: Order Comment: Speci men Type: BLOOD SPECIMEN Ordering Facility: [facility] Address: [address] [place], [place] [phone] Performed By: #### 5 0189-0, , 2132-03 #### [facility] CLIA [id number] [address] [place] [address] [place] Immature granulocytes/100 WBC (Bld) 0.6 % Normal [facility] Comment on above: Order Comment: Speci men Type: BLOOD SPECIMEN Order[facility] Facility: [facility] Address: [address] [place], [place] [address] Performed By: #### 5 0189-0, , 2132-03 #### [facility] CLIA [id number] [address] [place] [address] [place] Lymphocytes (Bld) [#/Vol] 0.36 10*3/uL Low 1.00-4.00 [facility] Comment on above: Order Comment: Speci men Type: BLOOD SPECIMEN Ordering Facility: [facility] Address: [address] [place], [place] [address] Performed By: #### 5 0189-0, , 2132-03 #### [facility] CLIA [id number] [address] [place] [address] [place] Lymphocytes/100 WBC (Bld) 7.3 % Normal [facility] Comment on above: Order Comment: Speci men Type: BLOOD SPECIMEN Ordering Facility: [facility] Address: [address] [place] [address] Performed By: #### 5 0189-0, , 2132-03 #### [facility] CLIA [id number] [address] [place] [address] [place] MCH (RBC) [Entitic mass] 31.1 pg Normal 26.0-34.0 [facility] Comment on above: Order Comment: Speci men Type: BLOOD SPECIMEN Ordering Facility: [facility] Address: [address] [place], [place] [address] Performed By: #### 5 0189-0, , 2132-03 #### [facility] CLIA [id number] [address] [place] [address] [place] MCHC (RBC) [Mass/Vol] 34.0 g/dL Normal 30.5-36.0 [facility] Comment on above: Order Comment: Speci men Type: BLOOD SPECIMEN Ordering Facility: [facility] Address: [address] [place] [address] Performed By: #### 5 0189-0, , 2132-03 #### [facility] CLIA [id number] [address] [place] [address] [place] MCV (RBC) [Entitic vol] 91.6 fL Normal 80.0-100.0 [facility] Comment on above: Order Comment: Speci men Type: BLOOD SPECIMEN Ordering Facility: [facility] Address: [address] [place] [address] Performed By: #### 5 0189-0, , 2132-03 #### [facility] CLIA [id number] [address] [place] [address] [place] Monocytes (Bld) [#/Vol] 0.55 10*3/uL Normal <0.87 [facility] Comment on above: Order Comment: Speci men Type: BLOOD SPECIMEN Ordering Facility: [facility] Address: [address] [place] [id number] Performed By: #### 5 0189-0, , 2132-03 #### [facility] CLIA [id number] [address] [place] [address] [place] Monocytes/100 WBC (Bld) 11.1 % Normal [facility] Comment on above: Order Comment: Speci men Type: BLOOD SPECIMEN Ordering Facility: [facility] Address: [address] [place] [address] Performed By: #### 5 0189-0, , 2132-03 #### [facility] CLIA [id number] [address] [place] [address] [place] Neutrophils (Bld) [#/Vol] 3.89 10*3/uL Normal 1.45-7.50 [facility] Comment on above: Order Comment: Speci men Type: BLOOD SPECIMEN Ordering Facility: [facility] Address: [address] [place], [place] [address] Performed By: #### 5 0189-0, , 2132-03 #### [facility] CLIA [id number] [address] [place] [address] [place] Neutrophils/100 WBC (Bld) 78.8 % Normal [facility] Comment on above: Order Comment: Speci men Type: BLOOD SPECIMEN Ordering Facility: [facility] Address: [address] [place], [place] [address] Performed By: #### 5 0189-0, , 2132-03 #### [facility] CLIA [id number] [address] [place] [address] [place] Nucleated RBC (Bld) [#/Vol] 10*3/uL Normal <0.01 [facility] Comment on above: Order Comment: Speci men Type: BLOOD SPECIMEN Ordering Facility: [facility] Address: [address] [place] [address] Performed By: #### 5 0189-0, , 2132-03 #### [facility] CLIA [id number] [address] [place] [address] [place] Nucleated RBC/100 WBC (Bld) [Ratio] 0.0 /100 WBC Normal [facility] Comment on above: Order Comment: Speci men Type: BLOOD SPECIMEN Ordering Facility: [facility] Address: [address] [place] [address] Performed By: #### 5 0189-0, , 2132-03 #### [facility] CLIA [id number] [address] [address] [place] Platelet mean volume (Bld) [Entitic vol] 12.4 fL Normal 9.0-12.7 [facility] Comment on above: Order Comment: Speci men Type: BLOOD SPECIMEN Ordering Facility: [facility] Address: [address] [place] [address] Performed By: #### 5 0189-0, , 2132-03 #### [facility] CLIA [id number] [address] [place] [id number] [place] Platelets (Bld) [#/Vol] 76 10*3/uL Low 150-400 [facility] Comment on above: Order Comment: Speci men Type: BLOOD SPECIMEN Ordering Facility: [facility] Address: [address] [place], [place] [address] Result Comment: Resu lts checked and verified.No clot detected. Performed By: #### 5 0189-0, , 2132-03 #### [facility] CLIA [id number] [address] [place], [place] [id number] [place] RBC (Bld) [#/Vol] 4.27 10*6/uL Normal 4.20-6.00 [facility] Comment on above: Order Comment: Speci men Type: BLOOD SPECIMEN Ordering Facility: [facility] Address: [address] [place] [address] Performed By: #### 5 0189-0, , 2132-03 #### [facility] CLIA [id number] [address] [place] [id number] [place] WBC (Bld) [#/Vol] 4.94 10*3/uL Normal 3.70-11.00 [facility] Comment on above: Order Comment: Speci men Type: BLOOD SPECIMEN Ordering Facility: [facility] Address: [address] [place] [address] Performed By: #### 5 0189-0, 28494-1, 2-9 #### [facility] CLIA [id number] [address] [place] [address] [facility] Comprehensive metabolic 2000 panelon 07-07-2022 Albumin [Mass/Vol] 4.6 g/dL Normal 3.9-4.9 [facility] Comment on above: Order Comment: Speci men Type: BLOOD SPECIMENOrdering Facility: [facility] Address: [address] [place], [place] [address] Performed By: #### 2 4323-8, 4-2, ####[facility] LABCLIA [id number] [place] [address] [place]#### 27399-1 ####[facility] LABCLIA [id number] [address] LABORATORYCLIA [id number] [place] [address] [place] ALP [Catalytic activity/Vol] 59 U/L Normal 38-113 [facility] Comment on above: Order Comment: Speci men Type: BLOOD SPECIMENOrdering Facility: [facility] Address: [address] [place], [place] [address] Performed By: #### 2 4323-8, 2323-2, ####[facility] LABCLIA [id number] [place] [address] [place]#### 29970-7 ####[facility]CL[facility] [id number] [address] OF [facility] [place] LABORATORYCLIA [id number] [place] [address] [place] ALT [Catalytic activity/Vol] 46 U/L Normal 10-54 [facility] Comment on above: Order Comment: Speci men Type: BLOOD SPECIMENOrdering Facility: [facility] Address: [address] [id number] Performed By: #### 2 3-8, 2323-2, ####[facility] LABCLIA [id number] [place] [address] [place]#### 18100-9 ####[facility]CL[facility] [id number] [facility] [place] [id number] [place] [facility] LABORATORYCLIA [id number] [place] [address] [place] Anion gap [Moles/Vol] 13 mmol/L Normal 9-18 [facility] Comment on above: Order Comment: Speci men Type: BLOOD SPECIMENOrdering Facility: [facility] Address: [address] [place] [address] Performed By: #### 2 4322-8, 2323-08, ####[facility] LABCLIA [id number] [place] [address] [place]#### 21937-5 ####[facility] LABCLIA [id number] [place] [address] [place] [facility] LABORATORYCLIA [id number] [place] [address] [place] AST [Catalytic activity/Vol] 30 U/L Normal 14-40 [facility] Comment on above: Order Comment: Speci men Type: BLOOD SPECIMENOrdering Facility: [facility] Address: [address] [phone] Performed By: #### 2 4323-8, 2, ####[facility] LABCLIA [id number] [place] [id number] [place]#### 51699-9 ####[facility] LABCLIA [id number] [place] [address] [place] [facility] LABORATORYCLIA [id number] [place] [address] [place] Bilirubin [Mass/Vol] 0.9 mg/dL Normal 0.2-1.3 [facility] Comment on above: Order Comment: Speci men Type: BLOOD SPECIMENOrdering Facility: [facility] Address: [address] [place] [address] Performed By: #### 2 4323-8, 2323-2, ####[facility] LABCLIA [id number] [place] [address] [place]#### 90721-5 ####[facility] LABCLIA [id number] [address] LABORATORYIA [id number] [place] [address] [place] Calcium [Mass/Vol] 9.7 mg/dL Normal 8.5-10.2 [facility] Comment on above: Order Comment: Speci men Type: BLOOD SPECIMENOrdering Facility: [facility] Address: [address] [place] [address] Performed By: #### 2 4323-8, 2323-2, ####[facility] LABCLIA [id number] [place] [address] [place]#### 64460-9 ####[facility] LABCLIA [id number] [place] [address] [place] [facility] LABORATORYCLIA [id number] [place] [address] [place] Chloride [Moles/Vol] 104 mmol/L Normal 97-105 [facility] Comment on above: Order Comment: Speci men Type: BLOOD SPECIMENOrdering Facility: [facility] Address: [address] [place], [place] [address] Performed By: #### 2 4323-8, 2323-2, ####[facility] LABCLIA [id number] [place] [address] [place]#### 16181-0 ####[facility] LABCLIA [id number] [address] [place] LABORATORYCLIA [id number] [place] [address] [place] CO2 [Moles/Vol] 24 mmol/L Normal 22-30 [facility] Comment on above: Order Comment: Speci men Type: BLOOD SPECIMENOrdering Facility: [facility] Address: [address] [place] [address] Performed By: #### 2 432-8, 2323-08, ####[facility] LABCLIA [id number] [place] [address] [place]#### 41744-2 ####[facility] LABCLIA [id number] [address] LABORATORYCLIA [id number] [place] [address] [place] Creatinine [Mass/Vol] 1.14 mg/dL Normal 0.73-1.22 [facility] Comment on above: Order Comment: Speci men Type: BLOOD SPECIMENOrdering Facility: [facility] Address: [address] [phone] Performed By: #### 2 4323-8, 2323-2, ####[facility] LABCLIA [id number] [place] [address] [place]#### 16839-8 ####[facility] LABCLIA [id number] [place] [address] [place] [facility] LABORATORYCLIA [id number] [place] [address] [place] ESTIMATED GLOMERULAR FILTRATION RATE 85 mL/min/1.73m??? Normal >=60 [facility] Comment on above: Order Comment: Noe [place] Type: BLOOD SPECIMENOrdering Facility: [facility] Address: [address] [place] [address] Result Comment: Brenda mated Glomerular Filtration Rate [...] GFR. Performed By: #### 2 4323-8, 2324-2, 65452-0 ####[facility] LABCLIA [id number] [address] [place]#### 14133-2 ####[facility] LABCLIA [id number] [place] [address] [place] [facility] LABORATORYCLIA [id number] [place] [address] [place] Glucose [Mass/Vol] 109 mg/dL High 74-99 [facility] Comment on above: Order Comment: Noe [place] Type: BLOOD SPECIMENOrdering Facility: [facility] Address: [address] [place], [place] [id number] Result Comment: The [place] Diabetes Association (ADA) provides guidance for cutoff [...] Standards of Medical Care in Diabetes 2016, [place] Diabetes Association. Diabetes Care. 2016.39(Suppl 1). Performed By: #### 2 4323-8, 2323-2, ####[facility] LABCLIA [id number] [place] [address] [place]#### 69056-6 ####[facility] LABCLIA [id number] [facility] [place] [address] [facility] LABORATORYCLIA [id number] [place] [address] [place] Potassium [Moles/Vol] 4.3 mmol/L Normal 3.7-5.1 [facility] Comment on above: Order Comment: Speci men Type: BLOOD SPECIMENOrdering Facility: [facility] Address: [address] [address] Performed By: #### 2 432-8, 2323-08, ####[facility] LABCLIA [id number] [place] [address] [place]#### 26176-6 ####[facility]CLIA [id number] [facility] [address] STATES OF [facility] LABORATORYCLIA [id number] [place] [address] [place] Protein [Mass/Vol] 7.6 g/dL Normal 6.3-8.0 [facility] Comment on above: Order Comment: Speci men Type: BLOOD SPECIMENOrdering Facility: [facility] Address: [address] [place] [address] Performed By: #### 2 4323-8, 2323-2, ####[facility] LABCLIA [id number] [facility] [address] [address] [place]#### 63484-5 ####[facility] LABCLIA [id number] [address] [address] [place] [facility] LABORATORYCLIA [id number] [place] [address] [place] Sodium [Moles/Vol] 141 mmol/L Normal 136-144 [facility] Comment on above: Order Comment: Speci men Type: BLOOD SPECIMENOrdering Facility: [facility] Address: [address] [place] [address] Performed By: #### 2 4323-8, 4-2, ####[facility] LABCLIA [id number] [place] [address] [place]#### 87783-8 ####[facility] LABCLIA [id number] [place] [id number] [place] [facility] LABORATORYCLIA [id number] [place] [address] [place] Urea nitrogen [Mass/Vol] 21 mg/dL Normal 9-24 [facility] Comment on above: Order Comment: Speci men Type: BLOOD SPECIMENOrdering Facility: [facility] Address: [address] [place] [address] Performed By: #### 2 4323-8, 4-2, ####[facility] LABCLIA [id number] [place] [address] [place]#### 06924-2 ####[facility] LABCLIA [id number] [address] [address] [place] [facility] LABORATORYCLIA [id number] [place] [address] [place] GGT SerPl-cCncon 07-07-2022 Gamma glutamyl transferase [Catalytic activity/Vol] 54 U/L Normal 10-70 [facility] Comment on above: Order Comment: Speci men Type: BLOOD SPECIMENOrdering Facility: [facility] Address: [address] [place] [address] Performed By: #### 2 4323-8, 4-2, ####[facility] LABCLIA [id number] [place] [address] [place]#### 35213-0 ####[facility] LABCLIA [id number] [address] OF [facility] LABORATORYCLIA [id number] [place], [place] [address] [place] [address] [place] Lipid 1996 panelon 2 Cholesterol [Mass/Vol] 180 mg/dL Normal <200 [facility] Comment on above: Order Comment: Speci men Type: BLOOD SPECIMENOrdering Facility: [facility] Address: [address] [place] [address] Result Comment: <200 mg/dL, Desirable 200-239 mg/dL, Borderline high >239 mg/dL, High Performed By: #### 2 4323-8, 2323-2, ####[facility] LABCLIA [id number] [place] [address] [place]#### 49428-3 ####[facility] LABCLIA [id number] [address] STATES OF [facility]AST. [facility] LABORATORYCLIA [id number] [place] [address] [place] Cholesterol in HDL [Mass/Vol] 36 mg/dL Low >39 [facility] Comment on above: Order Comment: Speci men Type: BLOOD SPECIMENOrdering Facility: [facility] Address: [address] Result Comment: 40-5 9 mg/dL, Acceptable >59 mg/dL, High: Negative risk factor for coronary heart disease <40 mg/dL, Low: Positive risk factor for coronary heart disease Performed By: #### 2 4323-8, 4-2, ####[facility] LABCLIA [id number] [address] [place]#### 57841-7 ####[facility] LABCLIA [id number] [address] STATES OF [facility] LABORATORYCLIA [id number] [place] [address] [place] Cholesterol in LDL [Mass/Vol] 106 mg/dL High <100 [facility] Comment on above: Order Comment: Speci men Type: BLOOD SPECIMENOrdering Facility: [facility] Address: [address] [phone] Result Comment: <100 mg/dL, Optimal 100-129 mg/dL, Near optimal/above optimal 130-159 mg/dL, Borderline high 160-189 mg/dL, High >189 mg/dL, Very high Secondary prevention optimal LDL Cholesterol levels are recommended to be < 70 mg/dL Performed By: #### 2 4323-8, 2324-2, 25777-5 ####[facility] LABCLIA [id number] [place] [address] [place]#### 14734-0 ####[facility] LABCLIA [id number] [address] STATES OF [facility] LABORATORYCLIA [id number] [address] STATES OF [facility] Cholesterol in LDL/Cholesterol in HDL [Mass ratio] 2.94 {ratio} High <2.54 [facility] Comment on above: Order Comment: Speci men Type: BLOOD SPECIMENOrdering Facility: [facility] Address: [address] [phone] Result Comment: Li green: 1. National Cholesterol Education Program ATP III Guideline At-A-Glance Quick Desk Reference: National Heart, Lung, and Blood [place]. National Institutes of Health. 2001: NIH Publication No. 01-3305. 2. An International Atherosclerosis Society position paper: global recommendations for the management of dyslipidemia: executive summary, Atherosclerosis. 2014: 232(2):410-413. Performed By: #### 2 4323-8, 2323-2, ####[facility] LABCLIA [id number] [place] [address] [place]#### 83044-8 ####[facility] LABCLIA [id number] [place] [address] [facility] [place] LABORATORYCLIA [id number] [place] [address] [place] Cholesterol in VLDL [Mass/Vol] 38 mg/dL High <30 [facility] Comment on above: Order Comment: Speci men Type: BLOOD SPECIMENOrdering Facility: [facility] Address: [address] [phone] Performed By: #### 2 432-8, 2323-08, ####[facility] LABCLIA [id number] [place] [address] [place]#### 52914-5 ####[facility] LABCL[facility] [id number] [address] LABORATORYCLIA [id number] [place], [place] [address] [place] [address] [place] Cholesterol non HDL [Mass/Vol] 144 mg/dL High <130 [facility] Comment on above: Order Comment: Speci men Type: BLOOD SPECIMENOrdering Facility: [facility] Address: [address] [phone] Result Comment: <130 mg/dL, Optimal 130-159 mg/dL, Near optimal/above optimal 160-189 mg/dL, Borderline high 190-219 mg/dL, High >219 mg/dL, Very high Secondary prevention optimal non HDL Cholesterol levels are recommended to be <100 mg/dL Performed By: #### 2 4323-8, 2323-2, ####[facility] LABCLIA [id number] [place] [address] [place]#### 57660-5 ####[facility] LABCL[facility] [id number] [address] OF [facility] LABORATORYCLIA [id number] [place] [address] [place] Cholesterol.total/Chol esterol in HDL [Mass ratio] 5.00 {ratio} Normal <5.10 [facility] Comment on above: Order Comment: Speci men Type: BLOOD SPECIMENOrdering Facility: [facility] Address: [address] [place] [address] Performed By: #### 2 4323-8, 2323-08, ####[facility] LABCLIA [id number] [place] [address] [place]#### 87798-3 ####[facility] LABCLIA [id number] [address] STATES OF [facility] LABORATORYCLIA [id number] [place] [address] [place] FASTING TIME 1 hrs Normal [facility] Comment on above: Order Comment: Speci men Type: BLOOD SPECIMENOrdering Facility: [facility] Address: [address] [place] [address] Result Comment: veronica ent had lunch Performed By: #### 2 4323-8, 2323-08, ####[facility] LABCL[facility] [id number] [address] [address] [place]#### 31376-9 ####[facility]CLIA [id number] [address] [address] [place] [facility] [place] LABORATORYCLIA [id number] [place] [address] [place] Triglyceride [Mass/Vol] 190 mg/dL High <150 [facility] Comment on above: Order Comment: Speci men Type: BLOOD SPECIMENOrdering Facility: [facility] Address: [address] [place] [address] Result Comment: <150 mg/dL, Normal 150-199 mg/dL, Borderline high 200-499 mg/dL, High >499 mg/dL, Very high Performed By: #### 2 4323-8, 4-2, ####[facility] LABCLIA [id number] [place] [address] [place]#### 31988-7 ####[facility] LABCL[facility] [id number] [address] LABORATORYCLIA [id number] [place] [address] [place] Magnesium SerPl-ncon 07-07 Magnesium [Mass/Vol] 1.7 mg/dL Normal 1.7-2.3 [facility] Comment on above: Order Comment: Speci men Type: BLOOD SPECIMENOrdering Facility: [facility] Address: [address] [place] [address] Performed By: #### 2 4323-8, 2, ####[facility] LABCLIA [id number] [place] [address] [place]#### 48358-8 ####[facility] LABCLIA [id number] [address] [place] LABORATORYCLIA [id number] [place] [address] [place] Phosphate SerPl-mCncon 07-07 Phosphate [Mass/Vol] 3.6 mg/dL Normal 2.7-4.8 [facility] Comment on above: Order Comment: Speci men Type: BLOOD SPECIMENOrdering Facility: [facility] Address: [address] Performed By: #### 2 777-1 ####[facility] LABCLIA [id number] [place] [id number] OF [facility] Tacrolimus Bld[facility] Tacrolimus (Bld) [Mass/Vol] 3.0 ng/mL Low 5.0-20.0 [facility] Comment on above: Order Comment: Speci men Type: BLOOD SPECIMEN [facility] Address: [address] [id number] Result Comment: Thes e reference ranges are [...] Test performed by chemiluminescent immunoassay using [employer]. Performed By: #### V ITB6 #### [facility] [employer] CLIA [id number] [address] [place] [address] [facility] [facility] CHUCKIE VILLALTA ([id number]) 1985 TRN Date Time Provider Department 03/24/22 NADJA [...] questions. Nadja Spencer (Cassie) RN, BSN Liver Fixed Income Analyst Allergies As of Date: 03/24/2022 Noted Allergy Reaction PENICILLINS 16 - Unknown Comments: Skin test positive 09/01/18 [place] 02/18/2021 14 - Other: See Comments SEASONAL ALLERGIES 06/29/2018 16 - Unknown Date Reviewed: 12/27/2021 Reviewed by: Carlos Muñoz RN - Fully Assessed Reason for Visit: Reminder To Have Labs Drawn [1174] Prescriptions as of 03/24/2022 - iv contrast [...] Encounter Status:Closed by NADJA SPENCER on 03/24/22 [facility] CNOVdanie 02-25-2022 CNOV Office Visit (PSCHL) CHUCKIE VILLALTA ([id number]) 1985 M TRN Date Time Provider Department 02/25/22 9:00 AM ROSEMARIE SHEPARD During your visit today, we recorded the following information about you: SHAQ Chua 02/25/2022 10:46 AM Signed [facility] Assessment Visit Type:Virtual Visit utilizing two-way audio and video for at least a portion of the visit IDENTIFYING INFORMATION: [phone] [email or web address] Lives with of nine years, Екатерина and [...] consented to virtual evaluation. Patient and this mortgage or loan underwriter present during interview. PRECIPITATING PROBLEM(S):Patient was dx with liver disease in 2017. Completed an IOP at [facility] in summer 2018, and received liver transplant [...] Age 16, every other weekend. Went to [employer] for college drank heavily on weekends, then [...] was intend (more content not included)... Normal [facility] [place] ABDOMEN W IVCONon 022 [facility] Basic Metabolic Panlon 07-12 Anion gap [Moles/Vol] 8 mmol/L Low 9-18 [facility] Calcium [Mass/Vol] 8.6 mg/dL Normal 8.5-10.2 [facility] Chloride [Moles/Vol] 103 mmol/L Normal 97-105 [facility] CO2 [Moles/Vol] 24 mmol/L Normal 22-30 [facility] Creatinine [Mass/Vol] 2.67 mg/dL High 0.73-1.22 [facility] eGFR- Amer. 33 Normal [facility] [...] Hospital Comment on above: Result Comment: The [place] Diabetes Association (ADA) provides guidance for cutoff [...] Standards of Medical Care in Diabetes 2016, [place] Diabetes Association. Diabetes Care. 2016.39(Suppl 1). Potassium [Moles/Vol] 3.3 mmol/L Low 3.7-5.1 [facility] Sodium [Moles/Vol] 135 mmol/L Low 136-144 [facility] Urea nitrogen [Mass/Vol] 11 mg/dL Normal 9-24 [facility] CASE MANAGEMon 07-12-2021 CASE MANAGEM HNO ID: [id number] Author: Nanette Dangelo RN Service: ? Author [...] 12, 2021 TIME: 4:48 PM PAGER/CONTACT #: [facility]: [id number] Author: [place] MD Service: Hospital Medicine [...] GI team who initially recommended ERCP at [facility] but at this time planning to pursue [...] 1.3. He was seen by infectious disease trousseau consultant today who recommended adding G6PD to [...] specialist. You were also seen by pain knowledge management advisor while you are in the hospital. I have not added any pain medications due to near complete resolution of symptoms. You were seen by neurologist recently for the patient's symptoms. They will follow up as an outpatient also. Please follow-up with primary MD in 1 week Follow-up with transplant team at the earliest available appointment-student accounts coordinator has promised to set up an [...] [facility] CONSULT HNO ID: [id number] Author: Latrell Cabello MD Service: Infectious Disease [...] Smoking status: Nev (more content not included)... [facility] CONSULT PROGon 07-12-2021 CONSULT PROG HNO ID: [id number] Author: Justin Glasgow PA-C Service: Pain Management Author Type: Physician Loan Closer Type: Consult Progress Note Filed: 07/12/2021 4:02 [...] Pain scores overnight between 4-8/10 per [employer]. The patient's current inpatient analgesic regimen has [...] Garrido, PA-C July 12, 2021 4:01 PM [facility] CONSULT PROG HNO ID: [id number] Author: Spike Gandara MD Service: Nephrology Author Type: Physician Type: Consult Progress Note Filed: 07/12/2021 12:22 PM Note Text: [facility] NEPHROLOGY CONSULT PROGRESS NOTE SERVICE DATE: [...] DATE: July 12, 2021 12:22 PM PHONE: [phone] FOR AFTER HOUR CONCERNS BETWEEN 7PM - [...] NURSING PROGon 07-12-2021 NURSING PROG HNO ID: [id number] Author: Marcela Mcdaniel RN Service: Nursing Author Type: Registered Nurse Type: Nursing Progress Note Filed: 07/12/2021 1:03 AM Note Text: Nursing Progress Note Patient Name: Chuckie Villalta [facility] Daily Note: Report received from BATOOL Nolan. Pt resting comfortably in bed. Will continue to monitor. This note was completed by: Marcela Mcdaniel Normal [facility] Tacrolimus / [id number] 021 Tacrolimus / FK506 7.7 ng/mL Normal [...] situation. Test performed by chemiluminescent immunoassay using [employer]. Performed By: #### F K506 ####[facility] [id number] [place], [place] [id number] Amylaseon 07-11-2021 Amylase [Catalytic activity/Vol] 59 U/L Normal 30-104 [facility] Basic Metabolic Panlon 07-11 Anion gap [Moles/Vol] 10 mmol/L Normal 9-18 [facility] Calcium [Mass/Vol] 8.5 mg/dL Normal 8.5-10.2 [facility] Chloride [Moles/Vol] 103 mmol/L Normal 97-105 [facility] CO2 [Moles/Vol] 22 mmol/L Normal 22-30 [facility] Creatinine [Mass/Vol] 2.77 mg/dL High 0.73-1.22 [facility] eGFR- Amer. 32 Normal [facility] [...] Hospital Comment on above: Result Comment: The [place] Diabetes Association (ADA) provides guidance for cutoff [...] Standards of Medical Care in Diabetes 2016, [place] Diabetes Association. Diabetes Care. 2016.39(Suppl 1). Potassium [Moles/Vol] 3.5 mmol/L Low 3.7-5.1 [facility] Sodium [Moles/Vol] 135 mmol/L Low 136-144 [facility] Urea nitrogen [Mass/Vol] 12 mg/dL Normal 9-24 [facility] CONSULT PROGon 07-11-2021 CONSULT PROG HNO ID: [id number] Author: Spike Gandara MD Service: Nephrology Author Type: Physician Type: Consult Progress Note Filed: 07/11/2021 1:06 PM Note Text: [facility] NEPHROLOGY CONSULT PROGRESS NOTE SERVICE DATE: [...] stenosis, seem by GI, pending transfer to [facility] ? 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 12 PM tacro trough rather elevated. Tacro held [...] DATE: July 11, 2021 1:03 PM PHONE: [phone] FOR AFTER HOUR CONCERNS BETWEEN 7PM - 7AM CONTACT ON-CALL NEPHROLOGY STAFF [facility] CONSULT PROG HNO ID: [id number] Author: Justin Glasgow PA-C Service: Pain Management Author Type: Physician Loan Closer Type: Consult Progress Note Filed: 07/11/2021 11:02 [...] Pain scores overnight between 4-9/10 per [employer]. The patient's current inpatient analgesic regimen includes: [...] x 4 quadrants. No masses, organomegaly Justin Glasgow, MPAS, PA-C July 11, 2021 11:02 AM Normal [facility] Amylaseon 07-10-2021 Amylase [Catalytic activity/Vol] 51 U/L Normal 30-104 [facility] Basic Metabolic Panlon 07-10 Anion gap [Moles/Vol] 10 mmol/L Normal 9-18 [facility] Calcium [Mass/Vol] 8.5 mg/dL Normal 8.5-10.2 [facility] Chloride [Moles/Vol] 106 mmol/L High 97-105 [facility] CO2 [Moles/Vol] 21 mmol/L Low 22-30 [facility] Creatinine [Mass/Vol] 2.80 mg/dL High 0.73-1.22 [facility] eGFR- Amer. 31 Normal [facility] [...] Hospital Comment on above: Result Comment: The [place] Diabetes Association (ADA) provides guidance for cutoff [...] Standards of Medical Care in Diabetes 2016, [place] Diabetes Association. Diabetes Care. 2016.39(Suppl 1). 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 The patient's current inpatient analgesic regimen includes: [...] Garrido, PA-C July 10, 2021 12:38 PM [facility] CONSULT PROG HNO ID: [id number] Author: Spike Gandara MD Service: Nephrology Author Type: Physician Type: Consult Progress Note Filed: 07/10/2021 11:42 AM Note Text: [facility] NEPHROLOGY CONSULT PROGRESS NOTE SERVICE DATE: [...] stenosis, seem by GI, pending transfer to [facility] ? Hemochromatosis s/p OLT on immunosuppression of [...] DATE: July 10, 2021 11:41 AM PHONE: [phone] FOR AFTER HOUR CONCERNS BETWEEN 7PM - 7AM CONTACT ON-CALL NEPHROLOGY STAFF Normal [facility] Tacrolimus / [id number] 07-10-2 021 Tacrolimus / FK506 9.3 ng/mL [...] Test performed by chemiluminescent immunoassay using Schuler [employer]dn[employer] Artificer. Performed By: #### F K506 ####[facility] [address] [place], [place] [phone] [facility] 07-09-2021 ALLIED HEALTH HNO ID: [id number] Author: RT Kristyn(R) Service: ? Author Type: [...] Kristyn(R) July 08, 2021 11:17 PM Normal [facility] CASE MANAGEMon 07-09-2021 CASE MANAGEM HNO ID: [id number] Author: Nanette Dangelo RN Service: ? Author [...] k/uL Normal <0.11 [facility] Abs Zavala 1.28 k/uL High <0.87 [facility] Abs Neut 7.42 k/uL Normal 1.45-7.50 [facility] ANC(includeSEG+BAND) 7.42 k/uL Normal [facility] Anisocytosis Ql (Bld) Present Normal [facility] Basophils/100 WBC (Bld) 0.0 % Normal [facility] [...] MCHC (RBC) [Mass/Vol] 34.6 g/dL Normal 30.5-36.0 [facility] MCV (RBC) [Entitic vol] 101.2 fL High [...] CONSULT PROGon 07-09-2021 CONSULT PROG HNO ID: [id number] Author: Justin Glasgow PA-C Service: Pain Management Author Type: Physician Loan Closer Type: Consult Progress Note Filed: 07/09/2021 3:41 [...] Pain scores overnight between 4-8/10 per [employer]. The patient's current inpatient analgesic regimen includes: [...] Garrido, PA-C July 09, 2021 3:41 PM Normal [facility] CONSULT PROG HNO ID: [id number] Author: Ana Cotton APRN.HERNANDEZ Service: Gastroenterology Author [...] Pt continues to wait for bed at [facility], pt will likely still be inpatient for few days while monitoring kidney function and tacro levels if does not get a bed still at that time and tolerating diet can likely get scheduled for ERCP at [facility] as outpatient Will continue to monitor peripherally Normal [facility] CONSULT PROG HNO ID: [id number] Author: Spike Gandara MD Service: Nephrology Author Type: Physician Type: Consult Progress Note Filed: 07/09/2021 12:32 PM Note Text: [facility] NEPHROLOGY CONSULT PROGRESS NOTE SERVICE DATE: [...] stenosis, seem by GI, pending transfer to [facility] ? Hemochromatosis s/p OLT on immunosuppression of [...] DATE: July 09, 2021 11:39 AM PHONE: [phone] FOR AFTER HOUR CONCERNS BETWEEN 7PM - 7AM CONTACT ON-CALL NEPHROLOGY STAFF [facility] CONSULT PROG HNO ID: [id number] Author: Valencia Noguera RPh Service: Pharmacy Author [...] reviewed the above information with the pharmacy director/resident or certified medication technician and agree with the assessment/plan described. Changes or additions to the note are indicated by italics and . Valencia Noguera, Pharmacist 07/09/2021 7:54 AM Ext: [phone] [facility] CONSULT PROG HNO ID: [id number] Author: Lei Mckoy [facility] Service: Pharmacy Author Type: Pharmacist Type: Consult [...] have any questions, please contact pharmacy at [phone]. Age: [age] year old Allergies: ALLERGIES Allergen [...] 18.6 07/07/2021 2002 37.3 (H) Lei Mckoy, [facility] Normal [facility] Comp Metabolic Panelon 07-09 Albumin [Mass/Vol] 2.9 g/dL Low 3.9-4.9 [facility] ALP [Catalytic activity/Vol] 63 U/L Normal 38-113 [facility] ALT [Catalytic activity/Vol] 16 U/L Normal 10-54 [facility] Anion gap [Moles/Vol] 8 mmol/L Low 9-18 [facility] AST [Catalytic activity/Vol] 17 U/L Normal 14-40 [facility] Bilirubin [Mass/Vol] 1.0 mg/dL Normal 0.2-1.3 [facility] Calcium [Mass/Vol] 8.0 mg/dL Low 8.5-10.2 [facility] Chloride [Moles/Vol] 109 mmol/L High 97-105 [facility] CO2 [Moles/Vol] 20 mmol/L Low 22-30 [facility] Creatinine [Mass/Vol] 2.83 mg/dL High 0.73-1.22 [facility] eGFR- Amer. 31 Normal [facility] [...] Hospital Comment on above: Result Comment: The [place] Diabetes Association (ADA) provides guidance for cutoff [...] Standards of Medical Care in Diabetes 2016, [place] Diabetes Association. Diabetes Care. 2016.39(Suppl 1). Potassium [Moles/Vol] 3.8 mmol/L Normal 3.7-5.1 [facility] Protein [Mass/Vol] 5.1 g/dL Low 6.3-8.0 [facility] Sodium [Moles/Vol] 137 mmol/L Normal 136-144 [facility] Urea nitrogen [Mass/Vol] 16 mg/dL Normal 9-24 [facility] MRI BRAIN WO IVCONon 021 MRI BRAIN WO IVCON * * *Final Report* * * DATE OF EXAM: Jul 08 2021 11:28PM [facility] 0294 - MRI BRAIN WO [...] if there is concern for demyelinating disease. Film Casting Operator: PSCZay Transcribe Date/Time: Jul 09 2021 2:02A Dictated by : CARLOS ALEJANDRA MD This examination was interpreted and the report reviewed and electronically signed by: CARLOS ALEJANDRA MD on Jul 09 2021 2:09AM EST [id number] Normal [facility] Magnesiumon 07-09-2021 Magnesium [Mass/Vol] 1.8 mg/dL Normal 1.7-2.3 [facility] NURSING PROGon 07-09-2021 NURSING PROG HNO ID: [id number] Author: Demetrice Chacon RN Service: Nursing Author [...] on above: Performed By: #### P RATIO ####[facility] [place], [place] [phone] Protein (U) [Mass/Vol] 7 mg/dL Normal 0-20 [facility] Comment on above: Performed By: #### P RATIO ####[facility] [address] [place], [place] [phone] Protein/Creatinine Ratio 0.1 Normal <0.2 [facility] Comment on above: Performed By: #### P RATIO ####[facility] [place], [place] [phone] Urinalysis with Microscopico n 07-09-2021 Bilirubin, Urine [...] 0-3 Normal 0-3 [facility] Specific Pitcher, Ur 1.010 Normal 1.005-1.030 [facility] Urobilinogen Qn (U) 0.2 {Andrea'U}/dL Normal 0.2-1.0 [facility] WBC 0-5 Normal 0-5 [facility] ALLIED HEALTHon 07-08-2021 ALLIED HEALTH HNO ID: [id number] Author: Joshua Moran Service: Spiritual Care Author Type: ? Type: Allied Health Filed: 07/08/2021 1:06 PM Note Text: SPIRITUAL CARE PROGRESS NOTE SERVICE DATE: 07/08/2021 SERVICE TIME: 12:45PM Pt listed as [employer] in [facility], and he shared that he and his family attend the [place] in [place], [place]; pt in good spirits but drowsy at the time of visit; shared that he has undergone a liver transplant, and is now dealing with pancreatitis; provided him with a daily devotional for his use, and offered a blessing bedside; no follow-up planned unless requested. To contact the Spiritual Care Department: Please call Ext [phone] SIGNATURE: Joshua Moran PATIENT NAME: Chuckie Villalta DATE: July 08, 2021 TIME: 1:04 PM PAGER/CONTACT #: [phone] Normal [facility] CBC and Differentialon 07-08 Abs Baso 0.00 k/uL Normal <0.11 [facility] Abs Zavala 1.25 k/uL High <0.87 [facility] Abs Neut 6.26 k/uL Normal 1.45-7.50 [facility] ANC(includeSEG+BAND) 6.26 k/uL Normal [facility] Anisocytosis Ql (Bld) Present Normal [facility] Basophils/100 WBC (Bld) 0.0 % Normal [facility] [...] MCHC (RBC) [Mass/Vol] 34.6 g/dL Normal 30.5-36.0 [facility] MCV (RBC) [Entitic vol] 102.4 fL High [...] [facility]-2021 CONSULT HNO ID: [id number] Author: Justin Glasgow PA-C Service: Pain Management Author Type: Physician Loan Closer Type: Consults Filed: 07/08/2021 2:06 PM Note Text: PAIN MANAGEMENT CONSULT -- [facility] PATIENT NAME: Chuckie Villalta DATE of SERVICE: [...] is consulted RE: acute pancreatitis, on fentanyl electric operator by Dr. Jolynn Jaquez and Lisseth Raymond [...] (PF) 4 mg injection (ZOFRAN) - fentaNYL POCKET MAKER 20 mcg/mL in NaCl 0.9% 100 mL [...] Normal [facility] CONSULT HNO ID: [id number] Author: Spike Gandara MD Service: Nephrology Author Type: Physician Type: Consults Filed: 07/08/2021 2:05 PM Note Text: [facility] NEPHROLOGY AND HYPERTENSION [facility] SERVICE DATE: [...] CONSULT PROGon 07-08-2021 CONSULT PROG HNO ID: [id number] Author: Ana Cotton APRN.POLISHER HAND Service: Gastroenterology Author Type: Nurse Practitioner Type: [...] Splenomegaly. Trace ascites Plan for transfer to [facility] main (extensive medical hx - hemachromatosis, [...] Anion gap [Moles/Vol] 8 mmol/L Low 9-18 [facility] AST [Catalytic activity/Vol] 38 U/L Normal 14-40 [facility] Bilirubin [Mass/Vol] 1.6 mg/dL High 0.2-1.3 [facility] Calcium [Mass/Vol] 8.0 mg/dL Low 8.5-10.2 [facility] Chloride [Moles/Vol] 106 mmol/L High 97-105 [facility] CO2 [Moles/Vol] 18 mmol/L Low 22-30 [facility] Creatinine [Mass/Vol] 2.34 mg/dL High 0.73-1.22 [facility] eGFR- Amer. 39 Normal [facility] [...] Hospital Comment on above: Result Comment: The [place] Diabetes Association (ADA) provides guidance for cutoff [...] Standards of Medical Care in Diabetes 2016, [place] Diabetes Association. Diabetes Care. 2016.39(Suppl 1). Potassium [Moles/Vol] 3.9 mmol/L Normal 3.7-5.1 [facility] Protein [Mass/Vol] 4.9 g/dL Low 6.3-8.0 [facility] Sodium [Moles/Vol] 132 mmol/L Low 136-144 [facility] Urea nitrogen [Mass/Vol] 17 mg/dL Normal 9-24 [facility] Lipaseon 07-08-2021 Lipase [Catalytic activity/Vol] 235 U/L High 16-61 [facility] Magnesiumon 07-08-2021 Magnesium [Mass/Vol] 1.4 mg/dL Low 1.7-2.3 [facility] Tacrolimus / [id number] Tacrolimus / FK506 23.3 ng/mL High [...] Test performed by chemiluminescent immunoassay using [employer] Artificer. Performed By: #### F K506 ####[facility] [address] [place], [place] [phone] US ABD RIGHT UPPER QUADRANTo n 07-08-2021 US ABD RIGHT UPPER QUADRANT * * *Final Report* * * DATE OF EXAM: Jul 08 2021 12:08PM [facility] 1032 - US ABD RIGHT UPPER [...] 5. Trace ascites in the upper abdomen. Film Casting Operator: PSCZay Transcribe Date/Time: Jul 08 2021 12:28P Dictated by : ROCIO MANZO MD This examination was interpreted and the report reviewed and electronically signed by: ROCIO MANZO MD on Jul 08 2021 12:32PM EST [id number] Normal [facility] US ABD SPLEEN -NBon 07-08-20 21 US ABD SPLEEN -NB * * *Final Report* * * DATE OF EXAM: Jul 08 2021 12:08PM [facility] 1232 - US ABD SPLEEN -NB [...] 5. Trace ascites in the upper abdomen. Film Casting Operator: [facility] Transcribe Date/Time: Jul 08 2021 12:28P Dictated by : ROCIO MANZO MD This examination was interpreted and the report reviewed and electronically signed by: ROCIO MANZO MD on Jul 08 2021 12:32PM EST [id number] Normal [facility] Vancomycin 07-08-2021 Vancomycin 18.6 ug/mL Normal 10.0-20.0 [facility] [...] MCHC (RBC) [Mass/Vol] 36.1 g/dL High 30.5-36.0 [facility] MCV (RBC) [Entitic vol] 100.3 fL High 80.0-100.0 [facility] Platelet mean volume (Bld) [Entitic vol] 11.8 fL Normal 9.0-12.7 [facility] Platelets (Bld) [#/Vol] 45 10*3/uL Low 150-400 [facility] RBC (Bld) [#/Vol] 2.90 10*6/uL Low 4.20-6.00 [facility] WBC (Bld) [#/Vol] 9.23 10*3/uL Normal 3.70-11.00 [facility] CONSULT PROGon 07-07-2021 CONSULT PROG HNO ID: [id number] Author: Valencia Noguera RP Service: Pharmacy Author Type: Pharmacist Type: Consult [...] have any questions, please contact pharmacy at [phone]. Age: [age] year old Allergies: ALLERGIES Allergen [...] Vancomycin Levels: Vancomycin, result (ug/mL) Date/Time Value 07/07/2021 2002 37.3 (H) Valencia Noguera, [facility] Normal [facility] Comp Metabolic Panelon 07-07 Albumin [Mass/Vol] 3.0 g/dL Low 3.9-4.9 [facility] ALP [Catalytic activity/Vol] 70 U/L Normal 38-113 [facility] ALT [Catalytic activity/Vol] 41 U/L Normal 10-54 [facility] Anion gap [Moles/Vol] 9 mmol/L Normal 9-18 [facility] AST [Catalytic activity/Vol] 131 U/L High 14-40 [facility] Bilirubin [Mass/Vol] 4.9 mg/dL High 0.2-1.3 [facility] Calcium [Mass/Vol] 7.9 mg/dL Low 8.5-10.2 [facility] Chloride [Moles/Vol] 105 mmol/L Normal 97-105 [facility] CO2 [Moles/Vol] 18 mmol/L Low 22-30 [facility] Creatinine [Mass/Vol] 1.63 mg/dL High 0.73-1.22 [facility] eGFR- Amer. 59 Normal [facility] [...] Hospital Comment on above: Result Comment: The [place] Diabetes Association (ADA) provides guidance for cutoff [...] Standards of Medical Care in Diabetes 2016, [place] Diabetes Association. Diabetes Care. 2016.39(Suppl 1). Potassium [Moles/Vol] 4.1 mmol/L Normal 3.7-5.1 [facility] Protein [Mass/Vol] 5.0 g/dL Low 6.3-8.0 [facility] Sodium [Moles/Vol] 132 mmol/L Low 136-144 [facility] Urea nitrogen [Mass/Vol] 15 mg/dL Normal 9-24 [facility] NURSING PROGon 07-07-2021 NURSING PROG HNO ID: [id number] Author: Preethi Slater RN Service: Nursing Author Type: Registered Nurse Type: Nursing Progress Note Filed: 07/06/2021 11:25 PM Note Text: Nursing Progress Note Patient Name: Chuckie Villalta Patient Location: -[id number] Transfer Note: Patient transferred from [facility] to [facility] Room 414 by bed in stable condition with IV fluids, IV antibiotics, and a POCKET MAKER pump with on demand fentanyl. Vital signs obtained, patient oriented to room. Call light within reach. This note was completed by: Preethi Slater RN [facility] NURSING PROG HNO ID: [id number] Author: Delilah Le RN Service: Nursing Author [...] the specific clinical situation. CASE MGT INIT [facility] 2020 CASE MGT INIT [facility] HNO ID: [id number] Author: Mariluz Salamanca RN Service: Nursing Author Type: Registered Nurse Type: Care Mgt Initial Assessment Filed: 07/06/2021 2:04 PM Note Text: CARE MANAGEMENT: ASSESSMENT AND DISCHARGE PLAN SERVICE DATE: July 06, 2021 SERVICE TIME: 1:59 PM PRIMARY CARE PHYSICIAN: Luis Abdalla DO ADMISSION STATUS: Inpatient MEDICAL: [facility] COMM[facility] PLAN MEDICAID Health Insurance: [facility] ([facility] Plan Medicaid) Last Discharge Date: 02/13/20 Is this Within the Past 30 days? Advance Directive: Current Advance Directive: Health Care Power of Auditing Control Clerk In Chart: Yes Up To Date and Valid: Yes Baseline Mental Status Prior to this Illness what was the patient's Baseline Mental Status?: Alert AND Oriented Prior to this illness, has anyone described the patient having any of the following behaviors?: Not Applicable Relationship of the informant to the patient:: Self Primary Contact: Extended Emergency Contact Information Primary Emergency Contact: Remedios Villalta Address: [address] [place] [address] Mobile Relation: Spouse Supportive Patient Contact:: Yes Contact Resources: Family;Significant Other FREEDOM OF CHOICE EXPLAINED: [place] of Choice Given: No Reason Not Given: [...] 06, 2021 TIME: 1:59 PM PAGER/CONTACT #: [phone] Normal [facility] CBC and Differentialon 07-06 Abs Baso 0.00 k/uL Normal <0.11 [facility] Abs Zavala 0.64 k/uL Normal <0.87 [facility] [...] MCHC (RBC) [Mass/Vol] 36.9 g/dL High 30.5-36.0 [facility] MCV (RBC) [Entitic vol] 94.8 fL Normal [...] [facility] 07-06-2021 CONSULT HNO ID: [id number] Author: Og Gibbs MD Service: Gastroenterology Author [...] and hi s transferring the patient to [facility] giving his complex medica history and the need for repeated ERCP Dr. Wilburn reviewed the case too and agreed to transfer the patient to for further care Normal [facility] CONSULT Tanisha 07-06-2021 CONSULT PROG HNO ID: [id number] Author: Pearl Mann RPh Service: Pharmacy Author [...] any questions, please contact Pharmacy at ex [phone]. Age: [age] year old Allergies: ALLERGIES Allergen [...] Levels: No results found for: CHIDI Mann, [facility] Normal [facility] Comp Metabolic Panelon 07-06 Albumin [Mass/Vol] 3.5 g/dL Low 3.9-4.9 [facility] ALP [Catalytic activity/Vol] 60 U/L Normal 38-113 [facility] ALT [Catalytic activity/Vol] 60 U/L High 10-54 [facility] Anion gap [Moles/Vol] 15 mmol/L Normal 9-18 [facility] AST [Catalytic activity/Vol] 361 U/L High 14-40 [facility] Bilirubin [Mass/Vol] 6.6 mg/dL High 0.2-1.3 [facility] Calcium [Mass/Vol] 7.8 mg/dL Low 8.5-10.2 [facility] Chloride [Moles/Vol] 102 mmol/L Normal 97-105 [facility] CO2 [Moles/Vol] 15 mmol/L Low 22-30 [facility] Creatinine [Mass/Vol] 1.73 mg/dL High 0.73-1.22 [facility] eGFR- Amer. 55 Normal [facility] [...] Hospital Comment on above: Result Comment: The [place] Diabetes Association (ADA) provides guidance for cutoff [...] Standards of Medical Care in Diabetes 2016, [place] Diabetes Association. Diabetes Care. 2016.39(Suppl 1). Potassium [Moles/Vol] 4.3 mmol/L Normal 3.7-5.1 [facility] Protein [Mass/Vol] 5.2 g/dL Low 6.3-8.0 [facility] Sodium [Moles/Vol] 132 mmol/L Low 136-144 [facility] Urea nitrogen [Mass/Vol] 17 mg/dL Normal 9-24 [facility] ED NOTEon 07-06-2021 ED NOTE HNO ID: [id number] Author: Marcela Corley RN Service: Nursing Author Type: Registered Nurse Type: ED Notes Filed: 07/06/2021 4:57 AM Note Text: Report to Loraine RENAE. Normal [facility] ED NOTE HNO ID: [id number] Author: Marcela Corley RN Service: Nursing Author Type: Registered Nurse Type: ED Notes Filed: 07/06/2021 4:51 AM Note Text: Pt resting in bed at this time. Call light within reach, will continue to monitor. [facility] Expedited [id number] 07-06-20 SARS-CoV-2 (COVID-19) RNA NOLBERTO+probe Ql (Unsp [...] NURSING PROGon 07-06-2021 NURSING PROG HNO ID: [id number] Author: Loraine Ya RN Service: Nursing Author Type: Registered Nurse Type: Nursing Progress Note Filed: 07/06/2021 6:31 AM Note Text: Nursing Progress Note Patient Name: Chuckie Villalta Patient Location: [place] [address] Transfer Note: Patient transferred into room/unit 426 in stable condition. Actions taken: Report given by Marcela RENAE. No futher actions taken at this time. Will continue to monitor and check with patient. Patient belongings with patient oriented to room, answered questions, denies needs at this time. This note was completed by: Loraine Ya Normal [facility] XR CHEST 1V FRONTAL PORTon 1 [...] are detected. IMPRESSION: No acute radiographic abnormality. Film Casting Operator: GUILLE Transcribe Date/Time: Jul 05 2021 11:38P Dictated by : RIK YUN MD This examination was interpreted and the report reviewed and electronically signed by: RIK YUN MD on Jul 05 2021 11:39PM EST [id number] Normal [facility] APTTon 07-05-2021 aPTT Coag (Bld) [Time] 22.6 s Low 23.0-32.4 [facility] Comment on above: Result Comment: [...] laboratory APTT reagent in use throughout the [facility]. Acetaminophenon 07-05-2021 Acetaminophen [Mass/Vol] ug/mL Low 10-30 [facility] Comment on above: Result Comment: Toxi c > 150 ug/mL 4 hours post ingestion The Ginger Akins nomogram can be used to estimate the probability of hepatotoxicity via the relationship of plasma acetaminophen concentration to the post ingestion interval. (Gareth. Pediatrics. 1975. 55:871 to 876 and Ginger et al. Arch Print Color Matcher Med. 1981. 141:380 to 385). Reference ranges and high/low indicator flags are provided as general guidelines only. The treating physician must determine appropriate target levels/dosing based on the specific clinical situation. Blood Cultureon 07-05-2021 Bacteria identified Cx Nom (Bld) Culture Result - No growth 5 days Normal [facility] Comment on above: Performed By: #### B LCUL ####[place] [phone] CBC and Differentialon 07-05 Abs Baso 0.00 k/uL Normal <0.11 [facility] Comment on above: Performed By: #### C BCDIF ####[place] [address] [place] [phone] Abs Zavala 0.97 k/uL High <0.87 [facility] Comment on above: Performed By: #### C BCDIF ####[place] [phone] Abs Neut 28.35 k/uL High 1.45-7.50 [facility] Comment on above: Performed By: #### C BCDIF ####[place] [address] [place] [phone] Anisocytosis Ql (Bld) Present Normal [facility] Comment on above: Performed By: #### C BCDIF ####[place] [phone] Basophils/100 WBC (Bld) 0.0 % Normal [facility] Comment on above: Performed By: #### C BCDIF ####[place] [address] [place] [phone] DTYPE Manual Diff Normal [facility] Comment on above: Performed By: #### C BCDIF ####[place] [phone] Eosinophils (Bld) [#/Vol] 0.00 10*3/uL Normal <0.46 [facility] Comment on above: Performed By: #### C BCDIF ####[place] [address] [place] [phone] Eosinophils/100 WBC (Bld) 0.0 % Normal [facility] Comment on above: Performed By: #### C BCDIF ####[address] [phone] Erythrocyte distribution width (RBC) [Ratio] 15.1 % High 11.5-15.0 [facility] Comment on above: Performed By: #### C BCDIF ####[address] [phone] Hematocrit (Bld) [Volume fraction] 43.2 % Normal 39.0-51.0 [facility] Comment on above: Performed By: #### C BCDIF ####[address] [phone] Hemoglobin (Bld) [Mass/Vol] 16.2 g/dL Normal 13.0-17.0 [facility] Comment on above: Performed By: #### C BCDIF ####[address] [phone] Lymphocytes (Bld) [#/Vol] 0.00 10*3/uL Low 1.00-4.00 [facility] Comment on above: Performed By: #### C BCDIF ####[address] [phone] Lymphocytes/100 WBC (Bld) 0.0 % Normal [facility] Comment on above: Performed By: #### C BCDIF ####[address] [phone] MCH 35.1 pG High 26.0-34.0 [facility] Comment on above: Performed By: #### C BCDIF ####[address] [phone] MCHC (RBC) [Mass/Vol] 37.5 g/dL High 30.5-36.0 [facility] Comment on above: Performed By: #### C BCDIF ####[facility], [place] [phone] MCV (RBC) [Entitic vol] 93.7 fL Normal 80.0-100.0 [facility] Comment on above: Performed By: #### C BCDIF ####[place] [address] healthandSaint [place], [place] [phone] Monocytes/100 WBC (Bld) 3.3 % Normal [facility] Comment on above: Performed By: #### C BCDIF ####[place] [address], [place] [phone] Neutrophils/100 WBC (Bld) 96.7 % Normal [facility] Comment on above: Performed By: #### C BCDIF ####[place] [address], [place] [phone] Platelet Estimate Platelet estimate adequate Normal [facility] Comment on above: Performed By: #### C BCDIF ####[place] [address], [place] [phone] Platelet mean volume (Bld) [Entitic vol] 11.6 fL Normal 9.0-12.7 [facility] Comment on above: Performed By: #### C BCDIF ####[place] [address], [place] [phone] Platelets (Bld) [#/Vol] 173 10*3/uL Normal 150-400 [facility] Comment on above: Performed By: #### C BCDIF ####[place] [address], [place] [phone] Polychromasia Slight Normal [facility] Comment on above: Performed By: #### C BCDIF ####[place] [address], [place] [phone] RBC (Bld) [#/Vol] 4.61 10*6/uL Normal 4.20-6.00 [facility] Comment on above: Performed By: #### C BCDIF ####[facility] [address], [place] [phone] WBC (Bld) [#/Vol] 29.32 10*3/uL High 3.70-11.00 [facility] Comment on above: Result Comment: Resu lt checked and verified No clot detected. Performed By: #### C BCDIF ####[facility] [place], [place] [phone] CONSULT PROGon 07-05-2021 CONSULT PROG HNO ID: [id number] Author: Pearl Mann RPh Service: Pharmacy Author [...] any questions, please contact Pharmacy at ex [phone]. Age: [age] year old Allergies: ALLERGIES Allergen [...] Levels: No results found for: CHIDI [facility] CT ABD/PEL WO IVCONon 2020 CT ABD/PEL WO IVCON * * *Final Report* * * DATE OF EXAM: Jul 05 2021 7:05PM [facility] 0531 - CT ABD/PEL WO IVCON [...] abnormality. Lumbosacral pars defects. Lower thorax: Unremarkable. Continuous Mining Machine Coal Miner (topogram) images: No additional findings. IMPRESSION: Extensive pancreatitis with inflammatory changes surrounding the transverse colon, spleen and retroperitoneum. Small volume ascites is present. Extent of pancreatic necrosis cannot be assessed on a noncontrast examination. Film Casting Operator: GUILLE Transcribe Date/Time: Jul 05 2021 7:12P Dictated by : SPIKE FUNES MD This examination was interpreted and the report reviewed and electronically signed by: SPIKE FUNES MD on Jul 05 2021 7:23PM EST [id number] Normal [facility] Comp Metabolic Panelon 07-05 Albumin [Mass/Vol] 5.0 g/dL High 3.9-4.9 [facility] Comment on above: Performed By: #### C BCDIF ####[facility] [place], [place] [phone] ALP [Catalytic activity/Vol] 77 U/L Normal 38-113 [facility] Comment on above: Performed By: #### C BCDIF ####[facility] [place], [place] [phone] ALT [Catalytic activity/Vol] 34 U/L Normal 10-54 [facility] Comment on above: Performed By: #### C BCDIF ####[facility] [place], [place] [phone] Anion gap [Moles/Vol] 23 mmol/L High 9-18 [facility] Comment on above: Performed By: #### C BCDIF ####[place] [address] [place] [phone] AST [Catalytic activity/Vol] 69 U/L High 14-40 [facility] Comment on above: Performed By: #### C BCDIF ####[place] [address] [phone] Bilirubin [Mass/Vol] 5.3 mg/dL High 0.2-1.3 [facility] Comment on above: Performed By: #### C BCDIF ####[place] [address] [address] [phone] Calcium [Mass/Vol] 9.5 mg/dL Normal 8.5-10.2 [facility] Comment on above: Performed By: #### C BCDIF ####[place] [phone] Chloride [Moles/Vol] 92 mmol/L Low 97-105 [facility] Comment on above: Performed By: #### C BCDIF ####[place] [address] [place] [phone] CO2 [Moles/Vol] 15 mmol/L Low 22-30 [facility] Comment on above: Performed By: #### C BCDIF ####[place] [address] [address] [place] [phone] Creatinine [Mass/Vol] 2.53 mg/dL High 0.73-1.22 [facility] Comment on above: Performed By: #### C BCDIF ####[place] [address] [place] [phone] eGFR- Amer. 35 Normal [facility] Comment on above: Performed By: #### C BCDIF ####[place] [address] [address] [place] [phone] eGFR-All Other Races 29 . Normal Cache [...] at [email or web address]. Performed By: #### C BCDIF ####[facility], [place] [phone] Glucose [Mass/Vol] 167 mg/dL High 74-99 [facility] Comment on above: Result Comment: The [place] Diabetes Association (ADA) provides guidance for cutoff [...] Standards of Medical Care in Diabetes 2016, [place] Diabetes Association. Diabetes Care. 2016.39(Suppl 1). Performed By: #### C BCDIF ####[facility], [place] [phone] Potassium [Moles/Vol] 5.5 mmol/L High 3.7-5.1 [facility] Comment on above: Performed By: #### C BCDIF ####[facility] [address] [place], [place] [phone] Protein [Mass/Vol] 7.6 g/dL Normal 6.3-8.0 [facility] Comment on above: Performed By: #### C BCDIF ####[facility] [address] [place], [place] [phone] Sodium [Moles/Vol] 130 mmol/L Low 136-144 [facility] Comment on above: Performed By: #### C BCDIF ####[facility] [address] [place], [place] [phone] Urea nitrogen [Mass/Vol] 20 mg/dL Normal 9-24 [facility] Comment on above: Performed By: #### C BCDIF ####[facility] [place], [place] [phone] ED NOTEon 07-05-2021 ED NOTE HNO ID: [id number] Author: Max Styles RN Service: ? Author [...] NOTEon 07-05-2021 ED PROV NOTE HNO ID: [id number] Author: Will Mccormick DO Service: Emergency Medicine [...] Noteon 07-05-2021 ED Triage Note HNO ID: [id number] Author: Brian Ash I, PA-C Service: Emergency Medicine Author Type: Physician Loan Closer Type: ED Triage Notes Filed: 07/05/2021 6:11 [...] RUQ US SIGNATURE: Brian Ash PA-C Normal [facility] Ethanolon 07-05-2021 Ethanol [Mass/Vol] mg/dL Normal <11 [facility] Comment on above: Result Comment: Valu es > 80 mg/dL may indicate intoxication HISTORY PHYSICALon HISTORY PHYSICAL HNO ID: [id number] Author: Lisseth Raymond APRN.CNP Service: Hospital Medicine Author Type: Nurse Practitioner Type: HANDP Filed: 07/05/2021 9:37 PM Note Text: DEPARTMENT OF HOSPITAL MEDICINE HISTORY AND PHYSICAL EXAM SERVICE DATE: 07/05/2021 Code Status: Not on file SERVICE TIME: 9:27 PM Primary Care Physician: Luis Abdalla, NIGHT AND WEEKEND COVERAGE: [employer] COVERAGE: Days: [phone], please contact via [employer] Nights: [phone], please page CC Hospitalist Night coverage pager [phone] Subjective CHIEF COMPLAINT: Epigastric pain going through [...] on above: Performed By: #### C BCDIF ####[facility] [place], [place] [phone] Magnesiumon 07-05-2021 Magnesium [Mass/Vol] 0.8 mg/dL Low 1.7-2.3 [facility] Comment on above: Result Comment: No c all per procedure. 07/05/21 1847 Performed By: #### C BCDIF ####[facility] [address] [place], [place] [phone] Protimeon 07-05-2021 PT INR 1.3 Normal 0.9-1.3 [facility] Comment on above: Result Comment: Aster min K Antagonist (VKA) Therapeutic Range: INR 2 to 3 (Target INR of 2.5) Note: For patients treated with VKA drugs, such as warfarin, the [place] College [employer] 2012 Guideline recommends [...] [facility] K[facility] 02-25-2021 L --- Specimen: [id number] Received: 02/25/21 Status: LAYLAMarshal Rosana Num: [id number] Spec Type: Surgical Subm Dr: Josiah Pompa MD Tissues: A Disc - Intervertebral/Lumbar/C ervical (CERVICAL) Procedures: HE Stain, Gross/Micro L3 Patient Age/Sex Location Account Attending Physician Chuckie Villalta 35/M [place] [id number] Josiah Pompa MD SPEC NUM: [id number] RECD: 02/25/21 STATUS: LU ROSANA NUM: [id number] VJ: 02/25/21- [facility] DR: Josiah Pompa MD ENTERED: 02/25/[address] [facility] [address]: LOUIE TYPE: Surgical DEPT: S [...] of montanez-pink, rubbery and ragged fibrous tissue. Director Product Development sections are submitted in one cassette labeled A1. (SM/YJ) Microscopic Description One glass slide with H E stained material has been examined. The microscopic findings support the above pathologic diagnosis. CPT Codes 28099 Specimen: [id number] Received: 02/25/21 Status: LU Rosana Num: [id number] Spec Type: Surgical Subm Dr: Josiah Pompa MD Tissues: A Disc - Intervertebral/Lumbar/C ervical (CERVICAL) Procedures: HE Stain, Gross/Micro L3 Patient: Chuckie Villalta [id number] (Continued) Signed (signature on file) Lucretia Lund MD 02/26/21 1655 [facility] XR cervical spine 1Von 02-25 XR cervical spine 1V [facility] Main [address] [address] XRay Report Signed Patient: Chuckie Villalta MR#: [id number] 56 : 1985 Acct:[id number] Age/Sex: 35 / M ADM Date: 02/25/21 Loc: Room: [address] [place] [address] Type: REG [facility] Attending Dr: Josiah Pompa MD Ordering Provider: [...] Carlos Solano M.D.02/25/2021 4:31 PM Dictation Location: [place] [address] Transcribed By: [facility] 02/25/21 1631 Dictated By: Carlos Solano II, MD 02/25/21 1630 Signed By: 02/25/21 1631 [facility] Basic Metabolic Panelon 07-2 Calcium [Mass/Vol] 9.3 mg/dL Normal 8.2-10.2 [facility] Comment on above: Result Comment: PERF ORMED BY: [address] [address] PATHOLOGIST HEALTH ASSISTANT ALFRED TRACY M.D. Performed By: #### B MP, CBC #### [facility] [address] [place] [address] [place] Chloride [Moles/Vol] 99 mmol/L Normal 95-114 [facility] Comment on above: Performed By: #### B MP, CBC #### [facility] [address] [place] [address] [place] CO2 [Moles/Vol] 20.5 mmol/L Low 22.0-30.0 [facility] Comment on above: Performed By: #### B MP, CBC #### [facility] [address] [place] [address] [place] Creatinine [Mass/Vol] 1.31 mg/dL High 0.64-1.27 [facility] Comment on above: Performed By: #### B MP, CBC #### [facility] [address] Estimated GFR ( Marissa > 60 Normal [facility] Comment on above: Result Comment: GFR estimated reference range: According to KDOQI guidelines, <60 ml/min/1.73m2 is sufficient to diagnose a patient with chronic kidney disease. Performed By: #### B MP, CBC #### [facility] [address] [place] [address] [place] Estimated GFR (Non- Am > 60 [facility] Comment on above: Performed By: #### B MP, CBC #### [facility] [address] [place] [address] [place] Glucose [Mass/Vol] 105 mg/dL High 70-100 [facility] Comment on above: Result Comment: [place] Glucose Reference Range is dependent on time and content of last meal. Glucose of more than 200 mg/dL in a nonstressed, ambulatory subject supports the diagnosis of Diabetes Mellitus. ADA recommended reference range Performed By: #### B MP, CBC #### [facility] [address] [place] [address] [place] Potassium [Moles/Vol] 4.4 mmol/L Normal 3.5-5.1 [facility] Comment on above: Performed By: #### B MP, CBC #### [facility] [address] [place] [address] [place] Sodium [Moles/Vol] 133 mmol/L Low 136-146 [facility] Comment on above: Performed By: #### B MP, CBC #### [facility] [address] Urea nitrogen [Mass/Vol] 11 mg/dL Normal 9-23 [facility] Comment on above: Performed By: #### B MP, CBC #### [facility] [address] COVID-19 FRon 02-21-2021 SARS-CoV-2 (COVID-19) RNA NOLBERTO+probe Ql (Unsp spec) Negative Normal Negative [facility] Comment on above: Order Comment: Healt hcare Worker?: N Result Comment: Testing for SARS-CoV-2 by RT-PCR This test was developed and its performance characteristics determined by [employer]) and validated at the [facility]. This test has not been FDA [...] is terminated or revoked sooner. PERFORMED BY: [facility] [address] [place] [address] PATHOLOGIST HEALTH ASSISTANT ALFRED TRACY M.D. Performed By: #### C OVID 19 [facility] #### [facility] [address] Complete Blood Count Auto Di ffon 02-21-2021 Basophils (Bld) [#/Vol] 0.0 10*3/uL Normal 0.0-0.2 [facility] Comment on above: Result Comment: PERF ORMED BY: [place] [address] PATHOLOGIST HEALTH ASSISTANT ALFRED TRACY M.D. Performed By: #### B MP, CBC #### [address] Basophils/100 WBC (Bld) 0.5 % Normal . [facility] Comment on above: Performed By: #### B MP, CBC #### [address] Eosinophils (Bld) [#/Vol] 0.1 10*3/uL Normal 0.0-0.45 [facility] Comment on above: Performed By: #### B MP, CBC #### [address] Eosinophils/100 WBC (Bld) 1.2 % Normal . [facility] Comment on above: Performed By: #### B MP, CBC #### [address] Erythrocyte distribution width (RBC) [Ratio] 14.0 % Normal 12.0-14.8 [facility] Comment on above: Performed By: #### B MP, CBC #### [address] Hematocrit (Bld) [Volume fraction] 39.2 % Normal 38.8-50.0 [facility] Comment on above: Performed By: #### B MP, CBC #### [address] Hemoglobin (Bld) [Mass/Vol] 13.9 g/dL Normal 13.0-17.0 [facility] Comment on above: Performed By: #### B MP, CBC #### [address] Lymphocytes (Bld) [#/Vol] 1.0 10*3/uL Normal 1.00-4.8 [facility] Comment on above: Performed By: #### B MP, CBC #### [address] Lymphocytes/100 WBC (Bld) 9.5 % Normal . [facility] Comment on above: Performed By: #### B MP, CBC #### [facility] [address] MCH (RBC) [Entitic mass] 32.1 pg Normal 27.5-35.2 [facility] Comment on above: Performed By: #### B MP, CBC #### [address] MCV (RBC) [Entitic vol] 90.4 fL Normal 83.5-101 [facility] Comment on above: Performed By: #### B MP, CBC #### [address] Mean Corpuscular HGB Conc 35.5 g/dL Normal 32.5-35.6 [facility] Comment on above: Performed By: #### B MP, CBC #### [place] [address] [place] Monocytes (Bld) [#/Vol] 0.6 10*3/uL Normal 0.0-0.8 [facility] Comment on above: Performed By: #### B MP, CBC #### [place] [address] [place] Monocytes/100 WBC (Bld) 6.0 % Normal . [facility] Comment on above: Performed By: #### B MP, CBC #### [address] Neutrophils (Bld) [#/Vol] 8.8 10*3/uL High 1.8-7.7 [facility] Comment on above: Performed By: #### B MP, CBC #### [address] Neutrophils/100 WBC (Bld) 82.8 % Normal . [facility] Comment on above: Performed By: #### B MP, CBC #### [place] [address] [place] Nucleated RBC/100 WBC (Bld) [Ratio] 0.0 % Normal 0-0.5 [facility] Comment on above: Performed By: #### B MP, CBC #### [address] Platelet mean volume (Bld) [Entitic vol] 8.4 fL Normal 6.6-10.1 [facility] Comment on above: Performed By: #### B MP, CBC #### [facility] [address] Platelets (Bld) [#/Vol] 205 10*3/uL Normal 150-450 [facility] Comment on above: Performed By: #### B MP, CBC #### [address] RBC (Bld) [#/Vol] 4.34 10*6/uL Normal 3.90-5.60 [facility] Comment on above: Performed By: #### B MP, CBC #### [address] WBC (Bld) [#/Vol] 10.6 10*3/uL Normal 4.5-11.0 [facility] Comment on above: Performed By: #### B MP, CBC #### [address] ECG 12 lead ECGon 02-18-2021 ECG 12 lead ECG [facility] [place] [address] [place] [address] Electrocardiograph Report Signed Patient: Chuckie Villalta MR#: [id number] 56 : 1985 Acct:[id number] Age/Sex: 35 / M ADM Date: 02/18/21 Loc: Room: Type: [facility] Attending Dr: Josiah Pompa MD Ordering [...] Electronically Signed By:SHAWN RICCI DO Transcribed By: BRIELLE Dictated By: Shawn Ricci DO 02/18/21 1413 Signed By: 02/18/21 1610 [facility] MRI CSPINE WO CONon -13- MRI CSPINE WO CON EXAMINATION: MRI CSP [...] by: ANGIE MCDANIEL Date: 2020-12-06 12:00 Normal [facility] Vital Signs Date Time Vital Sign Value Performing Clinician Facility 02-29-2024 13:25-0400 Body height 185.42 cm [facility] 02-29-2024 13:25-0400 Body mass index (BMI) [Ratio] 29 kg/m2 [facility] 02-29-2024 13:25-0400 Body weight 99.79 kg [facility] 02-29-2024 13:25-0400 Diastolic blood pressure 91 mm[Hg] [facility] 02-29-2024 13:25-0400 Heart rate 111 /min [facility] 02-29-2024 13:25-0400 Respiratory rate 12 /min [facility] 02-29-2024 13:25-0400 Systolic blood pressure 161 mm[Hg] [facility] 06-20-2023 16:12-0500 Body temperature 96.98 [degF] [facility] 06-20-2023 16:12-0500 Diastolic blood pressure 85 mm[Hg] [facility] 06-20-2023 16:12-0500 Heart rate 114 /min [facility] 06-20-2023 16:12-0500 Respiratory rate 18 /min [facility] 06-20-2023 16:12-0500 SaO2% (BldA) [Mass fraction] 100 % [facility] 06-20-2023 16:12-0500 Systolic blood pressure 160 mm[Hg] [facility] 06-11-2023 10:00-0500 Body height 185.42 cm Luis Ball Other [employer] Other 06-11-2023 10:00-0500 Body mass index (BMI) [Ratio] 29.66 kg/m2 [employer] Other [employer] Other 06-11-2023 10:00-0500 Body weight 101.97 kg Luis Ball Other [employer] Other 06-11-2023 10:00-0500 Diastolic blood pressure 97 mm[Hg] Luis Ball Other [employer] Other 06-11-2023 10:00-0500 Respiratory rate 12 /min Luis Ball Other [employer] Other 06-11-2023 10:00-0500 Systolic blood pressure 141 mm[Hg] Luis Ball Other [employer] Other 03-05-2023 09:45-0400 Body height 185.42 cm Luis Ball Other [employer] Other 03-05-2023 09:45-0400 Body mass index (BMI) [Ratio] 29.6 kg/m2 Luis Ball Other [employer] Other 03-05-2023 09:45-0400 Body weight 101.79 kg Luis Ball Other [employer] Other 03-05-2023 09:45-0400 Diastolic blood pressure 109 mm[Hg] Luis Ball Other [employer] Other 03-05-2023 09:45-0400 Systolic blood pressure 153 mm[Hg] Luis Ball Other [employer] Other 09-12-2022 10:30-0500 Body height 185.42 cm Luis Ball Other [employer] Other 09-12-2022 10:30-0500 Body mass index (BMI) [Ratio] 29.95 kg/m2 Luis Ball Other [employer] Other 09-12-2022 10:30-0500 Body weight 102.97 kg Luis Abdalla Other [employer] Other 09-12-2022 10:30-0500 Diastolic blood pressure 86 mm[Hg] Luis Abdalla Other [employer] Other 09-12-2022 10:30-0500 Respiratory rate 12 /min Luis [employer] Other [employer] Other 09-12-2022 10:30-0500 Systolic blood pressure 132 mm[Hg] Luis [employer] Other [employer] Other Encounters Encounter Date Encounter Type Care Provider Facility Start: 04-04-2024 End: 04-04-2024 ambulatory Vicente Thompson MD Facility:[facility] Start: 03-07-2024 End: 03-07-2024 ambulatory Vicente Thompson MD Facility:[facility] Start: 02-29-2024 End: 02-29-2024 ambulatory [facility] Work Phone: Start: 02-29-2024 End: 02-29-2024 Patient encounter procedure [facility] Work Phone: Start: 12-28-2023 End: 12-28-2023 ambulatory Vicente Thompson MD Facility:[facility] Start: 10-19-2023 End: 10-19-2023 ambulatory Vicente Thompson MD Facility:[facility] Start: 09-28-2023 End: 09-28-2023 ambulatory Vicente Thompson MD Facility:[facility] Start: 06-20-2023 End: 06-20-2023 Emergency department patient visit Wilmer Rosenberg Facility:[facility] Start: 06-20-2023 End: 06-20-2023 Emergency department patient visit Wilmer Rosenberg [facility] Start: 06-11-2023 End: 06-11-2023 ambulatory Luis Abdalla Other [employer] Other Start: 06-11-2023 Encounter for genera l adult medical examination without abnormal findings Luis Abdalla [facility] Start: 06-11-2023 Periodic preventive med est patient 18-39 yrs Luis Abdalla [facility] Start: 03-19-2023 End: 03-19-2023 ambulatory BETINA QUEZADA Facility:[facility] Start: 03-05-2023 End: 03-05-2023 ambulatory Luis Abdalla Other [employer] Other Start: 03-05-2023 Office outpatient vi sit 15 minutes Luis Abdalla [facility] Start: 12-11-2022 End: 12-11-2022 ambulatory BETINA QUEZADA Facility: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 Comment on above: Care Coordination ([facility]) Start: 09-12-2022 End: 09-12-2022 ambulatory Luis Abdalla Other [employer] Other Start: 09-12-2022 Office outpatient vi sit 25 minutes Luis Abdalla [facility] Start: 09-04-2022 Orders Only Betina Quezada MD Work Phone: Gastroenterology Comment on above: Liver transplant rec ipient (HCC) (Primary Dx) Endoscopy Call Start: 09-04-2022 End: 09-04-2022 Evaluation and management of inpatient MINNA TISHAShivani Facility:[facility] Start: 08-31-2022 End: 09-05-2022 Evaluation and management of inpatient LUIS ABDALLA Facility:[facility] Start: 07-22-2022 ambulatory Nadja Spencer RN [facility] Comment on above: holiday obs erved July 28 Start: 07-22-2022 E-mail encounter fro m caregiver Nadja Spencer RN [facility] Start: 07-07-2022 End: 07-08-2022 ambulatory LUIS ABDALLA Facility:[facility] Start: 05-01-2022 Refill Tuyet Rivera PA-C Work Phone: [phone] Comment on above: Refill Request Start: 03-24-2022 Telephone encounter [facility] Comment on above: Reminder To Have Lab s Drawn Start: 03-11-2022 Telephone encounter [facility] Comment on above: Covid19 Concern Start: 02-25-2022 End: 02-25-2022 ambulatory LUIS ABDALLA Facility:[facility] Start: 02-25-2022 End: 02-25-2022 Patient encounter procedure Rosemariese [facility] Comment on above: Uncomplicated [...] with patient Aidan Larios MD Work Phone: [facility] Start: 11-08-2021 Telephone encounter [facility] Comment on above: Hospital Follow Up Start: 12-06-2020 End: 12-07-[address] LUIS ABDALLA Facility:[facility] Procedures Date Procedure Procedure Detail Performing Clinician Start: 09-04-2022 FLUORO ERCP (POC) FOR DDI USE ONLY Betina Quezada MD Work Phone: Start: 09-03-2022 Antibody screen BETINA QUEZADA Comment on above: Order Comment: Specimen Type: BLOOD SPEC IMENOrdering Facility: [facility] Address: [address] [place] [id number] Performed By: #### T SCR ####CC [facility] [id number] [address] [place] Start: 02-24-2022 Adult [...] MD Work Phone: H/O: liver recipient Alonso cruz Rm Other Plan of Treatment Date Care Activity Detail Author Start: 07-01-2028 Urine microalbumin profile DTAP,TDAP,TD (2 - Td or Tdap) [facility] Start: 07-07-2027 LIPID SCREEN LIPID SCREEN [facility] Start: 07-16-2026 LIPID SCREEN LIPID SCREEN [facility] Start: 01-15-2024 PNEUMOCOCCAL (3 - PP SV23 if available, else PCV20) PNEUMOCOCCAL (3 - PPSV23 if available, else PCV20) [facility] Start: 01-15-2024 PNEUMOCOCCAL (3 - PP SV23 or PCV20) PNEUMOCOCCAL (3 - PPSV23 or PCV20) [facility] Start: 10-05-2023 TWO PNEUMOVAX 5 YEAR S APART PRIOR TO AGE 65 (#2) TWO PNEUMOVAX 5 YEARS APART PRIOR TO AGE 65 (#2) [facility] Start: 02-24-2023 Adult depression screening assessment DEPRESSION SCREENING [facility] Start: 12-02-2022 End: 09-04-2023 ERCP ERCP Endoscopy Routine Biliary stricture Expected: 12/02/2022, Expires: 09/04/2023 [facility] Work Phone: Comment on above: Expected: 12/02/2022 , Expires: 09/04/2023 Start: 07-27-2022 DEPRESSION ASSESSMENT DEPRESSION ASS ESSMENT [facility] Start: 03-27-2022 Influenza vaccination [facility] Start: 12-30-2021 End: 03-01-2022 Amylase [Enzymatic activity/volume] in Serum or Plasma AMYLASE BLD Lab Routine Expected: 12/30/2021, Expires: 03/01/2022 [facility] Work Phone: Comment on above: Expected: 12/30/2021 , Expires: 03/01/2022 Start: 12-30-2021 End: 03-01-2022 Lipase [Enzymatic activity/volume] in Serum or Plasma LIPASE BLD Lab Routine Expected: 12/30/2021, Expires: 03/01/2022 [facility] Work Phone: Comment on above: Expected: 12/30/2021 , Expires: 03/01/2022 Start: 12-24-2021 End: 01-09-2023 Ct abdomen w/contrast material CT ABDOMEN W IVCON Radiology Routine Expected: 12/24/2021 (Approximate), Expires: 01/09/2023 [facility] Work Phone: Comment on above: Expected: 12/24/2021 (Approximate), Expires: 01/09/2023 Start: 07-27-2021 DEPRESSION ASSESSMENT DEPRESSION ASS ESSMENT [facility] Start: 07-10-2020 Adult depression screening assessment DEPRESSION SCREENING [facility] Start: 07-07-2020 MENINGOCOCCAL B: Consider based on risk (3 of 4 - Increased Risk Bexsero 2-dose series) MENINGOCOCCAL B: Consider based on risk (3 of 4 - Increased Risk Bexsero 2-dose series) [facility] Start: 03-11-2019 MENINGOCOCCAL CONJUG ATE (2 - Risk 2-dose series) MENINGOCOCCAL CONJUGATE (2 - Risk 2-dose series) [facility] Start: 2004 SHINGRIX VACCINE (1 of 2) SHINGRIX VACCINE (1 of 2) [facility] Start: 11-01-2003 ANNUAL PCP TEAM STRATEGIC INTELLIGENCE OFFICER BRANDON DISEASE VISIT ANNUAL PCP TEAM CHRONIC DISEASE VISIT [facility] Start: 11-01-2003 BP CONTROLLED (<130/80) BP CONTROLLE D (<130/80) [facility] Start: 1997 COVID-19 VACCINE (1) COVID-19 VACCIN E (1) [facility] Start: 1990 COVID-19 VACCINE (#1) COVID-19 VACCI NE (#1) [facility] Start: 05-02-1986 COVID-19 VACCINE (#1) COVID-19 VACCI NE (#1) [facility] Immunization Date Immunization Notes Care Provider Fa [facility] 04-18-2020 influenza virus vacc ine, split virus (incl. purified surface antigen) Luis Abdalla Other [employer] Other 04-18-2020 influenza virus vacc ine, unspecified formulation [facility] 07-07-2019 meningococcal B vacc ine, recombinant, OMV, adjuvanted Nadja Spencer RN [facility] 05-20-2019 hepatitis A and hepatitis B vaccine Nadja Spencer RN [facility] 05-20-2019 influenza, injectabl e, quadrivalent, contains preservative Nadja Spencer RN [facility] 01-14-2019 haemophilus influenz ae type b vaccine, PRP-OMP conjugate Nadja Spencer RN [facility] 01-14-2019 meningococcal B vacc ine, recombinant, OMV, adjuvanted Nadja Spencer RN [facility] 01-14-2019 meningococcal oligosaccharide (groups A, C, Y and W-135) diphtheria toxoid conjugate vaccine (MCV4O) Nadja Spencer RN [facility] 01-14-2019 pneumococcal conjuga te vaccine, 13 valent Nadja Spencer RN [facility] 10-04-2018 hepatitis A and hepatitis B vaccine Nadja Spencer RN [facility] 10-04-2018 pneumococcal polysaccharide vaccine, 23 valent Nadja Spencer RN [facility] 07-01-2018 hepatitis A and hepatitis B vaccine Nadja Spencer RN [facility] 07-01-2018 influenza, injectabl e, quadrivalent, contains preservative Nadja Spencer RN [facility] 12-06-2018 pneumococcal conjuga te vaccine, 13 valent Nadja Spencer RN [facility] 07-01-2018 tetanus toxoid, redu simon diphtheria toxoid, and acellular pertussis vaccine, adsorbed Nadja Spencer RN [facility] 04-30-2009 hepatitis B vaccine, adult dosage Nadja Spencer RN [facility] Payers Date Payer Category Payer Medicaid MEDICAID [facility] MEDICAID [id number] 2021-Present [phone] [address] [place] [address] Medicaid [id number] 2021 Medicaid [id number] 2021 Medicaid [id number] 2021 Medicare MEDICARE MEDICAR E A AND B [id number] 2021-Present [phone] [address] [address] [place] [address] Medicare [id number] 2021 Medicare [id number] 2021 Medicare [id number] 2020 Medicaid [facility] MEDICAID [facility] MEDICAID [id number] 2020-Present [phone] [address] [place] [address] Medicaid [id number] 1985 Unknown [id number] 1985 Unknown [id number] 1985 Unknown [id number] 1985 Unknown [id number] 1985 Unknown [id number] 1985 Unknown [id number] 1985 Unknown [id number] 1959 Unknown [id number] Self-pay Self Pay [id number] Social History Date Type Detail Facility Start: 05-04-2018 End: 02-29-2024 Tobacco smoking status MAIS Never smoked tobacco [facility] Start: 05-04-2018 Tobacco use and exposure Former smokeless tobacco user [facility] Start: 09-17-2021 End: 09-04-2022 Alcohol intake Current drinker of alcohol (finding) [facility] Start: 07-05-2021 History SDOH Alcohol Comment occasionally [facility] Start: 1985 Sex Assigned At Not on file [facility] Start: 10-20-2021 End: 2021 Exposure to SARS-CoV-2 (event) Not sure [facility] Sex Assigned At [facility] Tobacco smoking status No Smoking Status Entered [facility] Start: 1985 Sex Assigned At Male F [facility] Medical Equipment Procedure Code Equipment Code Equipment Origin al Text Equipment Identifier Dates Stent Axios 15mm 24mm 138mm 10.8fr Nitinol Silicone 10mm 146mm Pancreatic - [id number] Start: 11-01-2021 Stent 10fr Duode nal Bend Plastic 12cm Biliary Temporary Rapid Exchange - [id number] Start: 09-04-2022 Spinal fixation plate, non-bioabsorbable ()[id number] [facility] Start: 02-25-2021 Spinal fixation plate, non-bioabsorbable ()[id number] FDA Start: 02-25-2021 Intervertebral-b josesito internal spinal fixation system ()[id number] FDA Start: 02-25-2021 Intervertebral-b josesito internal spinal fixation system ()[id number] FDA Start: 02-25-2021 Functional Status Date Assessment Result Facility 06-20-2023 Functional Status N/A [facility] Clinical Notes 07-25-2019 to 06-20-2023 Note [...] cast on your foot. General instructions Take qiwh-bod-soutcvn and prescription medicines only as told by [...] provider. Document Revised: 11/02/2020 Document Reviewed: 11/02/2020 [employer] Patient Education 2022 [employer]. 06/20/2023 18:04:25 Elastic Bandage and RICE Therapy [...] your activities and whether you should start kqtfc-ab-okiweo exercises for your injury. Ice Ice your [...] provider. Document Revised: 09/07/2020 Document Reviewed: 04/02/2018 [employer] Patient Education 2020 [employer]. 06/20/2023 18:04:25 Ankle Sprain, Phase II Rehab [...] by your health care provider. Stretching and xvvud-eq-qzbzwj exercises These exercises warm up your muscles [...] provider. Document Revised: 09/05/2021 Document Reviewed: 09/05/2021 [employer] Patient Education 2022 [employer]. 06/20/2023 18:04:25 Ankle Sprain, Phase I Rehab [...] by your health care provider. Stretching and iakev-iw-fxdprn exercises These exercises warm up your muscles [...] provider. Document Revised: 09/05/2021 Document Reviewed: 09/05/2021 [employer] Patient Education 2022 [employer] 06/20/2023 18:04:25 Ankle Sprain Ankle Sprain [...] blue. Managing pain, stiffness, and swelling Take awzv-ikb-anydtgo and prescription medicines only as told by [...] provider. Document Revised: 09/05/2021 Document Reviewed: 09/05/2021 [employer] Patient Education 2022 [employer]. Follow Up Care 06/20/2023 15:55:18 With:LUIS ABDALLA Address: [address] [place] [phone]- [phone] (1) When:06/23/2023 17:48:00 Comments:Follow-up with your primary care provider in 3 to 5 days. If symptoms worsen, do not improve, or new symptoms arise please report back to emergency department for further evaluation. [facility] 06-20-2023 Evaluation + Plan note Extrac edwardo from: Title:ED Note Author:Zacarias TODD, Dilan Drake te:06/20/23 Left ankle sprain (S93.402A: Sprain of unspecified ligament of left ankle, initial encounter) Sprain of left foot (S93.602A: Unspecified sprain of left foot, initial encounter) Orders: Air Cast Long [facility]11-16-2023 Evaluation note* Encounter Date Diagnosis Assessment Notes [...] CBD obstruction May, Nausea (ICD-10 - R11.0) [facility] Other 08-24-2023 NoteQ3 Patient Name: Chuckie Villalta [...] procedure well. Moderate Sedation: MAC Findings: A decal applier film of the abdomen was obtained. Surgical [...] present medications. Procedure Code(s): --- Professional --- 12591, Endoscopic retrograde cholangiopancreatography (ERCP); with removal of foreign body(s) or stent(s) from biliary/pancreatic duct(s) 51376, Endoscopic retrograde cholangiopancreatography (ERCP); with removal of calculi/debris from biliary/pancreatic duct(s) 25900, Endoscopic catheterization of the biliary ductal system, [...] Z94.4, Liver transplant status CPT copyright 2020 [employer]. All rights reserved. Attending Participation: I was present and participated during the entire procedure, including non-herr portions. Scope In: 9:20:16 AM Scope Out: 9:35:13 AM MD Betina Troncoso MD 03/19/2023 9:49:13 AM This report has been signed electronically by Betina Quezada MD Number of Addenda: 0 Note Initiated On: 03/19/2023 8:51 [facility]08-24-2023 NoteHNO ID: [id number] Author: Indu Meza, RN Service: Nursing Author Type: Registered Nurse Type: Nursing Progress Note Filed: 03/19/2023 8:29 AM Note Text: VBG collected from [facility] IV and sent to blood gas lab per MD order. Indu [facility]* Encounter Date Diagnosis Assessment [...] < 140/90 and HR less than 90 [facility] Other 05-18-2023 NoteHNO ID: [id number] Author: Yun Hutchinson APRN.CHANGE MANAGEMENT EXPERT Service: ? Author Type: Nurse Shank Scourer Type: Anesthesia Procedure Notes Filed: 12/11/2022 10:17 AM Note Text: ANESTHESIOLOGY PROCEDURE NOTE Airway General Information Procedure Start Time/Medication Administration: 12/11/2022 10:08 AM Patient location during procedure: OR Timeout Performed Pre-procedure: timeout performed Consent Obtained: Yes Patient identity confirmed: arm band and patient Staffing CHANGE MANAGEMENT EXPERT: Yun Hutchinson APRN.CHANGE MANAGEMENT EXPERT Performed by: GLORIA Indications and Patient Condition [...] 1 Airway not difficult SIGNATURE: Yun Hutchinson APRN.CHANGE MANAGEMENT EXPERT PATIENT NAME: Chuckie Villalta DATE: December 11, 2022 TIME: 10:15 AM CSN: [id number]05-18-2023 NoteQ3 Patient Name: Chuckie Villalta Procedure [...] A biliary stent was visible on the decal applier film. A decal applier film of the abdomen was obtained. Surgical [...] exchange stent. Procedure Code(s): --- Professional --- 54354, Endoscopic retrograde cholangiopancreatography (ERCP); with removal and exchange of stent(s), biliary or pancreatic duct, including pre- and post-dilation and guide wire passage, when performed, including sphincterotomy, when performed, each stent exchanged 99065, 59, Endoscopic retrograde cholangiopancreatography (ERCP); with removal and exchange of stent(s), biliary or pancreatic duct, including pre- and post-dilation and guide wire passage, when performed, including sphincterotomy, when performed, each stent exchanged 70008, 59, Endoscopic retrograde cholangiopancreatography (ERCP); with trans-endoscopic balloon dilation of biliary/pancreatic duct(s) or of ampulla (sphincteroplasty), including sphincterotomy, when performed, each duct 52798, Endoscopic retrograde cholangiopancreatography (ERCP); with removal of calculi/debris from biliary/pancre (more content not included)...[facility]02-27-[facility] Miscellaneous Notes* Telephone Encounter - Rashida Liriano RN - 09/22/2022 11:30 AM EST Called and left patient regarding referral to [facility] clinic. Call back number provided. Finale Desserts message with the details also sent. Rashida Liriano RN September 22, 2022 11:32 AM documented in this encounterMer[facility] Evaluation note* Encounter Date Diagnosis Assessment Notes [...] recipient (ICD-10 - Z94.4) No s/s rejection [facility] Other 02-10-2023 NoteHNO ID: [id number] Author: Jerri Camacho MD Service: Hepatology Author [...] Camacho MD Gastroenterology AND Hepatology Fellow Pager [phone] Will d/w staff Dr. Crawford.[facility]02-09-2023 NoteHNO ID: [id number] Author: Minna Tilley MD Service: General Internal Medicine Author Type: Physician Type: Progress Notes Filed: 09/04/2022 4:09 PM Note Text: DEPARTMENT OF HOSPITAL MEDICINE PROGRESS NOTE SERVICE DATE: 09/04/2022 SERVICE TIME: 3:55 PM Hospital Medicine/Primary Attending: Minna Tilley MD NIGHT AND WEEKEND COVERAGE: [facility] COVERAGE: Days: [phone], please page Minna Tilley for patient issues. Nights: [phone], please page Team GIM 6: G/H 8th floor: [address]; Non 8th floor [address] Subjective INTERVAL HPI: No significant events overnight. [...] c/w alcoholic hepatitis with (more content not included)...[facility]02-09-2023 Miscellaneous Notes* Telephone Encounter - Betina Quezada MD - 09/04/2022 2:03 PM EST Stent change with bruna documented in this encounterMer[facility]02-[facility]-2023 NoteHNO ID: [id number] Author: Yamilet Giraldo RN Service: Nursing Author Type: Registered Nurse Type: Nursing Progress Note Filed: 09/04/2022 10:58 AM Note Text: Pt nauseous, order for 4mg zofran given per dr junior order, report called to ayana storm rn g100.[facility]02-09-2023 NoteQ3 Patient Name: Chuckie Villalta Procedure Date: 09/04/2022 8:31 AM Date of : 1985 Admit Type: Inpatient Age: 36 Gender: Male Note Status: Finalized Attending MD: Betina Quezada MD Procedure: ERCP Indications: Stent removal, Post liver transplant assessment, Bile duct stricture Providers: Betina Quezada MD Referring Physician: Minna Tilley (Referring ) Medicines: General Anesthesia Complications: No immediate complications. [...] procedure well. Moderate Sedation: MAC Findings: A decal applier film of the abdomen was obtained. One [...] present medications. Procedure Code(s): --- Professional --- 61628, Endoscopic retrograde cholangiopancreatography (ERCP); with placement of endoscopic stent into biliary or pancreatic duct, including pre- and post-dilation and guide wire passage, when performed, including sphincterotomy, when performed, each stent 08345, Esophagogastroduodenoscopy, flexible, transoral; with removal of foreign body(s) 21306, Endoscopic catheterization of the biliary ductal system, [...] Z94.4, Liver transplant status CPT copyright 2020 [employer]. All rights reserved. Attending Participation: I personally performed the entire procedure. Scope In: 9:12:21 AM Scope Out: 10:02:05 AM MD Betina Troncoso MD 09/04/2022 10:16:37 AM This report has been signed electronically by Betina Quezada MD Number of Addenda: 0 Note Initiated On: 09/04/2022 8:31 [facility]02-09-2023 NoteHNO ID: [id number] Author: Jerri Camacho MD Service: Hepatology Author [...] Camacho MD Gastroenterology AND Hepatology Fellow Pager [phone] Will d/w staff Dr. Crawford. Addendum 09/04/22 12:26PM: Prelim path read: No evidence of ACR or chronic rejection; no evidence of bile duct injury or portal vein injury. Changes appear to be most c/w alcoholic hepatitis with severe reactivity. [facility]02-08-2023 NoteHNO ID: [id number] Author: Minna Tilley MD Service: General Internal Medicine Author Type: Physician Type: Progress Notes Filed: 09/03/2022 2:32 PM Note Text: DEPARTMENT OF HOSPITAL MEDICINE PROGRESS NOTE SERVICE DATE: 09/03/2022 SERVICE TIME: 2:24 PM Hospital Medicine/Primary Attending: Minna Tilley MD NIGHT AND WEEKEND COVERAGE: [facility] COVERAGE: Days: [phone], please page Minna Tilley for patient issues. Nights: [phone], please page Team GIM 6: G/H 8th floor: [address]; Non 8th floor [address] Subjective INTERVAL HPI: No significant events overnight. [...] needed Leukocytosis, resolved Se (more content not included)...[facility]02-08-2023 NoteHNO ID: [id number] Author: Jerri Camacho MD Service: Hepatology Author [...] Camacho MD Gastroenterology AND Hepatology Fellow Pager [phone] D/w staff Dr. Crawford.[facility]02-07-2023 NoteHNO ID: [id number] Author: Minna Tilley MD Service: General Internal Medicine Author Type: Physician Type: Progress Notes Filed: 09/02/2022 2:24 PM Note Text: DEPARTMENT OF HOSPITAL MEDICINE PROGRESS NOTE SERVICE DATE: 09/02/2022 SERVICE TIME: 2:10 PM Hospital Medicine/Primary Attending: Minna Tilley MD NIGHT AND WEEKEND COVERAGE: [facility] COVERAGE: Days: [phone], please page Minna Tilley for patient issues. Nights: [phone], please page Team GIM 6: G/H 8th floor: [address]; Non 8th floor [address] Subjective INTERVAL HPI: No significant events overnight. [...] Primary hypertension POA: Yes HOSPITAL COURSE: Chuckie A Villalta is a 36yo male w etoh [...] Sepsis ruled out Lactic (more content not included)...[facility]-06-[facility]23 Note HNO ID: [id number] Author: Minna Tilley MD Service: General Internal Medicine Author Type: Physician Type: Progress Notes Filed: 09/01/2022 2:25 PM Note Text: DEPARTMENT OF HOSPITAL MEDICINE PROGRESS NOTE SERVICE DATE: 09/01/2022 SERVICE TIME: 1:58 PM Hospital Medicine/Primary Attending: Minna Tilley MD NIGHT AND WEEKEND COVERAGE: [facility] COVERAGE: : [phone], please page Minna Tilley for patient issues. Nights: [phone], please page Team GIM 6: G/H 8th floor: [address]355; Non 8th floor [address] Subjective INTERVAL HPI: No significant events overnight. [...] tablet (BACTRIM DS,SEPTRA DS) 1 tablet ORAL MO-WE- pantoprazole 40 mg injection (PROTONIX) 40 mg [...] -Follow blood cultures -U (more content not included)...[facility]-06-2023 NoteHNO ID: [id number] Author: RT Leonora(R) Service: ? Author Type: [...] BY: RT Leonora(R) September 01, 2022 12:56 [facility]10-07-2022 Miscellaneous Notes* Telephone Encounter - Nadja Spencer [...] approved, please e-script the attached order to [facility]. Thank you, Lorena Adames RPh [facility] [phone] documented in this encounterMer[facility]08-29-2022 Miscellaneous Notes* Telephone Encounter - Nadja Spencer RN - 03/24/2022 1:17 PM EDT I sent patient a reminder to have lab work drawn as soon as possible as he has not had labs drawn in some time. Encouraged him to reach out with questions. Nadja Spencer (Cassie) RN, BSN Liver Fixed Income Analyst documented in this encounterMercy Health [facility]08-16-2022 Miscellaneous Notes* Telephone Encounter - Nadja Spencer [...] to. Nadja Spencer (Cassie) RN, BSN Liver Fixed Income Analyst documented in this encounterMercy Health [facility]08-02-2022 NoteHNO ID: [id number] Author: SHAQ Chua Service: ? Author Type: Conference Concierge Type: Progress Notes Filed: 02/25/2022 10:46 AM Note Text: [facility] Assessment Visit Type:Virtual Visit utilizing two-way audio and video for at least a portion of the visit IDENTIFYING INFORMATION: [phone] Lives with of nine years, Екатерина and [...] consented to virtual evaluation. Patient and this mortgage or loan underwriter present during interview. PRECIPITATING PROBLEM(S):Patient was dx with liver disease in 2017. Completed an IOP at [facility] in summer 2018, and received liver transplant [...] Age 16, every other weekend. Went to [employer] for college drank heavily on weekends, then [...] from its effects? Yes (more content not included)...[id number] History of Present illness Narrative* SHAQ Chua - 02/25/2022 9:21 AM EDT [facility] Assessment Visit Type:Virtual Visit utilizing two-way audio and video for at least a portion of the visit IDENTIFYING INFORMATION: [phone] [email or web address] Lives with of nine years, Екатерина andone daughter age five Duration of Interview: start time 9:15 and end time 10:30 pm REFERRAL SOURCE: SHAQ Jaimes liver transplant team BENEFITS: Payor: MEDICARE / Plan: MEDICARE A AND B / Product Type: Medicare / INFORMED CONSENT: Patient completed evaluation via virtual MyChart encounter due to COVID-19. Patient verbally consented to virtual evaluation. Patient and this mortgage or loan underwriter present during interview. PRECIPITATING PROBLEM(S):Patient was dx with liver disease in 2017. Completed an IOP at [facility] in summer 2018, and received liver transplant [...] Age 16, every other weekend. Went to [employer] for [employer] drank heavily on weekends, then turned 21 [...] MEDICATIONS: none PRIOR CHEMICAL DEPENDENCY TREATMENTS: [facility] TWELVE STEP HISTORY: -Longest period [...] None FAMILY/DEVELOPMENTAL HISTORY: -Born/Raised in (City, State): [place], [place]. Grew up on a farm Biological [...] No EMPLOYMENT HISTORY: -Currently employed? 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 No - Are you in need of assistance to identify and explore career interests, aptitudes, and skills andto formulate immediate and design assembler vocational goals? No MARITAL HISTORY: Екатерина -Children: [...] camping, campfires SPIRITUAL ASSESSMENT: -Raised in this [place] Background: Judaism Current Spiritual/Mandaen Practices: yes -Belief in a Higher Power: [...] things - anyone or anything (e.g., family, jewish, pain of ) - that stopped you [...] suicide or other suicidal behavior. From [employer] Practice Guidelines for the Assessment [...] meaningful daily activities: Yes Currently Employed: Yes [employer] affiliation (See spiritual assessment section above) Therapeutic [place]: Does pt believe treatment can help his/her [...] 07/19/2019 VENOUS THROMBOSIS IMAGING VENOGRAM BILATERAL Luis Jose Rm, DO PAIN: Are you experiencing any pain [...] the date of the service which included icpo-pe-uloi patient care and completing clinical documentation. documented in this encounterMer[facility]07-28-[facility]22 History of Present illness Narrative* SHAQ Jaimes [...] Patient states he went through IOP at [facility] and did not have a good experience. SW recommended [facility] IOP to patient and he is agreeable to trying this program. SW provided contact info and also emailed [facility] with this referral. Patient states he will also continue to go to his weekly home groupAA session every Thur at 8pm in [facility]. SW encouraged clt to reach out with any further questions or concerns. SHAQ Jaimes-S Liver Transplant Social Work documented in this encounterCleveland [id number] History of Present illness Narrative* SHAQ Jaimes - 02/20/2022 10:05 AM EDT Patient scheduled for virtual follow up visit with DEONDRE champion at 1pm. Patient left 2 messages via Sassor cancelling appointment due to time conflict. SHAQ Jaimes-S Liver Transplant Social Work documented in this encounterMercy Health [facility]iff[facility]06-03-2022 History of Present illness Narrative* FLORENTINO Jaimes) [...] Intact, Site disposition Discontinued SIGNED BY: RT Theodore(Galo) December 27, 2021 1:20 PM * Carlos [...] Intact SIGNATURE: Carlos Muñoz RN PATIENT NAME: Chukcie Villalta DATE: December 27, 2021 TIME: 12:54 PM documented in this encounterMercy Health Tiffin [facility]05-23-2022 History of Present illness Narrative* Aidan Larios [...] IS. I spent more than 20 minutes kpsw-rv-avjy with the patient and over half the time was devoted to counseling and/or coordination of care. Aidan Larios MD documented in this encounterMercy Health Tiffin Hospital04-15-2022 Miscellaneous Notes* Telephone Encounter - Nadja Spencer RN - 11/08/2021 3:18 PM EDT Patient returned my text and said that he will be unavailable on 11/12, as he and his family just arrived at [facility]. He will be available for virtual visit on 11/19. I notified scheduling. Nadja Spencer (Cassie) RN, BSN Liver Fixed Income Analyst * Telephone Encounter - Nadja Spencer RN - 11/08/2021 2:23 PM EDT I called and LMOM and sent patient a text to follow up with him from [facility]. I let him know that I'd be setting him up for a follow up virtual visit with Dr. Larios. Encouraged him to call back with questions or as needed. Nadja Spencer (Cassie) RN, BSN Liver Fixed Income Analyst documented in this encounterMercy Health Tiffin Hospital12-17-2021 NoteHNO ID: [id number] Author: Saba Hills MD Service: Hospital Medicine Author Type: Physician Type: Plan of Care Filed: 07/12/2021 9:21 AM Note Text: # Acute Pancreatitis- in setting of biliary stenosis. Resolved. Last amylase was 59 Per recommendation of GI we initially plan to transfer to [facility] for ERCP but that was later canceled [...] Vision MRI was negative Will discuss with student accounts coordinator We will also consult ID ? Need to look for CMV retinitis Saba Hills MD ?[facility] [id number] NoteHNO ID: [id number] Author: Maninder Aguilera DO Service: Hospital Medicine Author Type: Physician Type: Progress Notes Filed: 07/11/2021 10:58 AM Note Text: DEPARTMENT OF HOSPITAL MEDICINE PROGRESS NOTE SERVICE DATE: 07/11/2021 SERVICE TIME: 10:15 AM Hospital Medicine/Primary Attending: Maninder Aguilera DO NIGHT AND WEEKEND COVERAGE: ERICK COVERAGE: Days: [phone], please contact via [employer] Nights: [phone], please page CC Hospitalist Night coverage pager [phone] Subjective INTERVAL HPI: pt seen at bedside. [...] July 11, 2021 TIME: 10:15 AMCache Valley [id number] NoteHNO ID: [id number] Author: Saba Hills MD Service: Hospital Medicine Author Type: Physician Type: Progress Notes Filed: 07/11/2021 5:13 AM Note Text: HOSPITAL MEDICINE PROGRESS NOTE Saba Hills MD NIGHT AND WEEKEND COVERAGE: ERICK COVERAGE: Days: [phone], please contact via [employer] Nights: [phone], please page CC Hospitalist Night coverage pager [phone] Subjective HPI: Interval Events: has pain abdomen [...] sounds + EXTREMITY: : No ankle edema. TANNERY GUMMER: grossly normal. No focal deficit. Lines, Drains, [...] and GI GI is planning ERCP at [facility] as outpatient 2. History of hemochromatosis and [...] 7:30 AM and 4:30 PM Chuckie Villalta [id number] NoteHNO ID: [id number] Author: Jolynn Jaquez MD Service: Hospital Medicine Author Type: Physician Type: Progress Notes Filed: 07/09/2021 6:55 PM Note Text: HOSPITAL MEDICINE PROGRESS NOTE NIGHT AND WEEKEND COVERAGE: ERICK COVERAGE: Days: [phone], please contact via [employer] Nights: [phone], please page CC Hospitalist Night coverage pager [phone] Hospital Medicine/Primary Attending: Jolynn Jaquez MD Subjective [...] sounds + EXTREMITY: : No ankle edema. TANNERY GUMMER: grossly normal. No focal deficit. Lines, Drains, [...] Had leucocytosis initially, was started on antibiotics. johana Rice flagyl. GI consulted. Leucocytosis resolved (also, improving thrombocytopenia ). LFTs improved. Afebrile. No growth on blood cultures so far. USG right upper quadrant done to r/o obstruction. Advance diet today to full liquid, advance tomorrow as tolerated. Appreciate Pain management input. Discussed with GI regarding scheduling of ERCP outpatient. Patient to be scheduled at [facility]. Consider starting heparin subq for prophylaxis tomorrow [...] showed no acute process. Discussed with Neuro craft demonstrator. Plan to follow up outpatient with Neuro, [...] Villalta DATE: July 09, 2021 TIME: 4:16 [facility] [id number] NoteHNO ID: [id number] Author: Tani Woodward MD, PhD Service: Neurology [...] Woodward MD, PhD July 09, 2021 3:20 [facility] HospitalMrheucxz38-51-8626 NoteHNO ID: [id number] Author: Isa San RDMS, RVT Service: Radiology Author Type: Glue Specialty Supervisor Type: Progress Notes Filed: 07/08/2021 12:04 PM [...] Not applicable SIGNED BY: Isa San RDMS, RVT July 08, 2021 12:03 [facility] HospitalTkztjtxq52-19-4784 NoteHNO ID: [id number] Author: Jolynn Jaquez MD Service: Hospital Medicine Author Type: Physician Type: Progress Notes Filed: 07/08/2021 11:56 AM Note Text: HOSPITAL MEDICINE PROGRESS NOTE NIGHT AND WEEKEND COVERAGE: ERICK COVERAGE: Days: [phone], please contact via [employer] Nights: [phone], please page CC Hospitalist Night coverage pager [phone] Hospital Medicine/Primary Attending: Jolynn Jaquez MD Subjective [...] tenderness in EXTREMITY: : No ankle edema. TANNERY GUMMER: grossly normal. No focal deficit. Cranial nerves [...] Problems as of 07/08/2021 Noted - Resolved [facility] * (Principal) Acute pancreatitis 07/05/2021 - [...] is still waiting to be transferred to [facility]). Pain management consult. YOAN on [...] Villalta DATE: July 08, 2021 TIME: 11:[address] [facility] [id number] NoteHNO ID: [id number] Author: Jolynn Jaquez MD Service: Hospital Medicine Author Type: Physician Type: Progress Notes Filed: 07/07/2021 3:10 PM Note Text: HOSPITAL MEDICINE PROGRESS NOTE NIGHT AND WEEKEND COVERAGE: ERICK COVERAGE: Days: [phone], please contact via [employer] Nights: [phone], please page CC Hospitalist Night coverage pager [phone] Hospital Medicine/Primary Attending: Jolynn Jaquez MD Subjective HPI: Interval Events: POCKET MAKER and prn dilaudid helping with pain abdomen. [...] minimal palpation EXTREMITY: : No ankle edema TANNERY GUMMER: grossly normal. No focal deficit. Lines, Drains, and Airways Line Peripheral 07/05/21 1811 Right Antecubital 20 Gauge 1 day Peripheral 07/05/21 1923 Short Left Antecubital 20 Gauge 1 day Reviewed lines and needs to be continued: REASONS: Intravenous fluids Medications: Reviewed Diagnostic tests reviewed: Most recent imaging Most recent labs Assessment AND Plan Active Hospital Problems as of 07/07/2021 Noted - Resolved [facility] * (Principal) Acute pancreatitis 07/05/2021 - [...] input Patient waiting to be transferred to [facility]. Likely needs ERCP. Pain control with fentanyl POCKET MAKER, dilaudid prn Close monitoring ? Hemochromatosis 03/18/2018 [...] to get update regarding bed availability at [facility]. No bed assigned at [facility] yet. SIGNATURE: Jolynn Jaquez MD PATIENT NAME: Chuckie Villalta DATE: July 07, 2021 TIME: 2:59 [facility] HospitalEjgpolfd06-36-2627 NoteHNO ID: [id number] Author: Roma Horan MD Service: Hospital Medicine Author Type: Physician Type: Progress Notes Filed: 07/06/2021 12:47 PM Note Text: DEPARTMENT OF HOSPITAL MEDICINE PROGRESS NOTE SERVICE DATE: 07/06/2021 SERVICE TIME: 12:43 PM Hospital Medicine/Primary Attending: Roma Horan MD NIGHT AND WEEKEND COVERAGE: ERICK COVERAGE: Days: [phone], please contact via [employer] Nights: [phone], please page CC Hospitalist Night coverage pager [phone] Subjective INTERVAL HPI: c/o 8 abdominal pain. Nausea present no emesis. No [...] INTRAVENOUS q 6 H PRN - fentaNYL POCKET MAKER 20 mcg/mL in NaCl 0.9% 100 mL [...] a noncontrast examination - Patient accepted to [facility] when bed available - IV fluids, NPO except meds - symptom management - Vanco, cipro, flagyl started in ED--c/w same for now. Leukocytosis resolved today -improving lipase - Consult GI, pending [facility] transfer, appreciate recs. May need ERCP -called [...] recipient (HCC) Assessment AND Plan: seen at [facility], admits some noncompliance with medications as of late, and rare alcohol use - transfer to [facility] for continued care when able - continue prograf. Will hold Actigall while NPO ? Primary hypertension Assessment AND Plan: elevated in ED, likely due to pain and missed doses - resume po antihypertensives as able - manage pain as able Medication and Non-Pharmacologic VTE Prophylaxis/Anticoagulants VTE Prophylaxis: VTE prophylaxis appr (more content not included)...[facility] [id number] NoteHNO ID: [id number] Author: Interface Note Service: ? Author Type: ? Type: Progress Notes Filed: 07/06/2021 2:53 AM Note Text: Epic Scheduled Downtime: 07/06/2021 1:00:00 AM to 07/06/2021 2:38:59 AMCache Valley HospitalSixorfsx32-42-7611 NoteHNO ID: [id number] Author: Lisseth Raymond APRN.POLISHER HAND Service: Hospital Medicine Author Type: Nurse Practitioner Type: Plan of Care Filed: 07/05/2021 11:59 PM Note Text: Patient's pain not being controlled with prn dilaudid. Per Up to Date, POCKET MAKER recommended and fentanyl the safest drug to use for this purpose I discussed case with Dr Shook, I also discussed with the NOM and the pharmacist. A POCKET MAKER pump ordered. Lisseth Raymond APRN.[facility] HospitalRthptmgh55-90-6540 NoteHNO ID: [id number] Author: RT Alok(R) Service: ? Author Type: [...] BY: RT Alok(R) July 05, 2021 11:38 [facility] HospitalHkxpahmm56-98-2709 NoteHNO ID: [id number] Author: RT Devorah(R) Service: Radiology Author Type: [...] IV DATA: Not applicable SIGNED BY: Soila Parker, RT(R) July 05, 2021 7:00 [facility] HospitalKsjhvxku85-68-3790 History of Past illness Narrative* Problem Noted [...] of this encounter (statuses as of 11/08/2021) [facility] History of Past illness Narrative* Problem Noted [...] of this encounter (statuses as of 12/16/2021) [facility] of Past illness Narrative* Problem Noted [...] of this encounter (statuses as of 12/28/2021) [facility] of Past illness Narrative* Problem Noted [...] of this encounter (statuses as of 12/28/2021) [facility] of Past illness Narrative* Problem Noted [...] of this encounter (statuses as of 02/20/2022) [facility] of [facility] illness Narrative* Problem Noted [...] of this encounter (statuses as of 02/25/2022) [facility] of [facility] illness Narrative* Problem Noted [...] of this encounter (statuses as of 03/11/2022) [facility] of [facility] Narrative* Problem Noted [...] of this encounter (statuses as of 03/24/2022) [facility] Narrative* Problem Noted [...] of this encounter (statuses as of 05/05/2022) [facility] of [facility] Narrative* Problem Noted [...] of this encounter (statuses as of 07/28/2022) [facility] Narrative* Problem Noted [...] of this encounter (statuses as of 09/04/2022) [facility] of [facility] Narrative* Problem Noted [...] of this encounter (statuses as of 09/04/2022) [facility] of Past illness Narrative* Problem Noted [...] encounter (statuses as of 09/22/2022) [facility] note* Diagnosis Liver replaced by transplant (HCC)- Primary Liver replaced by transplant documented in this encounter [facility] note* Diagnosis Liver replaced by transplant (HCC)- Primary Liver replaced by transplant Need for prophylactic immunotherapy documented in this encounter [facility] note* Diagnosis Uncomplicated alcohol dependence (HCC) Other and unspecified alcohol dependence, unspecified drinking behavior documented in this encounter [facility] note* Diagnosis Liver transplant recipient (HCC)- Primary documented in this encounter [facility] note* Diagnosis 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 documented in this encounter [facility] noteNo assessment information availableMagruder Memorial Hospital Work Phone: Hisjimo general Narrative - Reported* Type Description Date [...] History COLONOSCOPY 2019 Hospitalization History See Above Graph Alchemist Other Hisorwu general Narrative - Reported* Type Description Date [...] stent replaced 11/2022 Hospitalization History See Above Graph Alchemist Other Hisykxm general Narrative - Reported* Type Description Date [...] History ERCP 02/2023 Hospitalization History See Above Graph Alchemist Other Hospital course Narrative No data available for this section [facility] CenterProgress note No data available for this section [facility] CenterReason for referral (narrative)* Outpatient Procedure (Routine) - Pending Review Specialty Diagnoses / Procedures Referred By Vale lopez Referred To Contact [facility] Diagnoses Biliary stricture Procedures ERCP ERCP DX COLLECTION SPECIMEN BRUSHING/WASHING Betina Quezada MD [address] [place] [address] [facility] [place] [address] [place] [address] Referral ID Status Reason Start Date Expiration Date Visits Requested Visits Authorized [id number] Pending Review Auto-Generat ed Referral 12/02/2022 09/04/2023 1 1 [facility] Summary Purpose Family History No Family History Records Found Relationship Condition Age at Onset Recorded Date/T sowmya father Malignant neoplasm of colon Unknown Hypertension Unknown mother Hypertension Unknown Myocardial infarction Unknown brother Epilepsy Unknown Advance Directives No Advanced Directives Records FoundDocuments on File Type Date Recorded Patient Director Product Development Expl anation Advance Directive(s) 10/30/2021 12:47 PM Advance Directive(s) 07/05/2021 6:47 PM Advance Directive(s) 07/16/2020 12:03 PM Advance Directive(s) 05/02/2020 10:37 AM Advance Directive(s) 07/10/2019 5:35 PM Advance Directive(s) 01/21/2019 3:11 PM Advance Directive(s) 10/06/2018 10:21 AM Advance Directive(s) 07/13/2018 6:11 AM Documents on File Type Date Recorded Patient Director Product Development Expl anation Advance Directive(s) 10/30/2021 12:47 PM Advance Directive(s) 07/05/2021 6:47 PM Advance Directive(s) 07/16/2020 12:03 PM Advance Directive(s) 05/02/2020 10:37 AM Advance Directive(s) 07/10/2019 5:35 PM Advance Directive(s) 01/21/2019 3:11 PM Advance Directive(s) 10/06/2018 10:21 AM Advance Directive(s) 07/13/2018 6:11 AM Documents on File Type Date Recorded Patient Director Product Development Expl anation Advance Directive(s) 10/06/2018 10:21 AM Latest Code Status on File Code Status Date Activated Date Inactivated Comments Full Code 09/01/2022 12:05 AM Full Code Order Discussed With: Patient Documents on File Type Date Recorded Patient Director Product Development Expl anation Advance Directive(s) 10/06/2018 10:21 AM [...] Referral Specialty Diagnoses / Procedures Referred By Contjennifer t Referred To Contact CT IMAGING Diagnoses Alcohol-induced acute pancreatitis, unspecified complication status Procedures CT ABDOMEN W IVCON CT ABDOMEN W/CONTRAST Aidan Larios MD [address] [place] [address] Ct Imaging Referral ID Status Reason Start Date Expiration Date Visits Requested Visits Authorized [id number] Pending Review Auto-Generat ed Referral 12/24/2021 01/09/2023 1 1 Referral ID Status Reason Start Date Expiration Date V isits Requested Visits Authorized [id number] Closed Auto-Generated Referral Patient Cleared - INN [...] and content) DATE CREATED AUTHOR 12/20/2020 [facility] DATE CREATED AUTHOR AUTHOR'S ORGANIZ ATION 07/13/2021 [facility] DATE CREATED AUTHOR AUTHOR'S ORGANIZ ATION 08/18/2021 [facility] DATE CREATED AUTHOR AUTHOR'S ORGANIZ ATION 11/09/2022 [facility] DATE CREATED AUTHOR AUTHOR'S ORGANIZ ATION 03/20/2023 [facility] DATE CREATED AUTHOR AUTHOR'S ORGANIZ ATION 06/28/2023 [facility] DATE CREATED AUTHOR AUTHOR'S ORGANIZ ATION 04/10/2024 [facility] Source Comments (unrecognize d section and content) In the event this informatio n is protected by the Federal Confidentiality of Alcohol and Drug Abuse Patient Records regulations: The Federal rules restrict any use of the information to criminally investigate or prosecute any alcohol or drug abuse patient.[facility] HospitalIn the event this information is protected by the Federal Confidentiality of Alcohol and Drug Abuse Patient Records regulations: The Federal rules restrict any use of the information to criminally investigate or prosecute any alcohol or drug abuse patient.[facility] HospitalIn the event this information is protected by the Federal Confidentiality of Alcohol and Drug Abuse Patient Records regulations: The Federal rules restrict any use of the information to criminally investigate or prosecute any alcohol or drug abuse patient.[facility] HospitalIn the event this information is protected by the Federal Confidentiality of Alcohol and Drug Abuse Patient Records regulations: The Federal rules restrict any use of the information to criminally investigate or prosecute any alcohol or drug abuse patient.[facility] HospitalIn the event this information is protected by the Federal Confidentiality of Alcohol and Drug Abuse Patient Records regulations: The Federal rules restrict any use of the information to criminally investigate or prosecute any alcohol or drug abuse patient.[facility] HospitalIn the event this information is protected by the Federal Confidentiality of Alcohol and Drug Abuse Patient Records regulations: The Federal rules restrict any use of the information to criminally investigate or prosecute any alcohol or drug abuse patient.[facility] HospitalIn the event this information is protected by the Federal Confidentiality of Alcohol and Drug Abuse Patient Records regulations: The Federal rules restrict any use of the information to criminally investigate or prosecute any alcohol or drug abuse patient.[facility] HospitalIn the event this information is protected by the Federal Confidentiality of Alcohol and Drug Abuse Patient Records regulations: The Federal rules restrict any use of the information to criminally investigate or prosecute any alcohol or drug abuse patient.[facility] HospitalIn the event this information is protected by the Federal Confidentiality of Alcohol and Drug Abuse Patient Records regulations: The Federal rules restrict any use of the information to criminally investigate or prosecute any alcohol or drug abuse patient.[facility] HospitalIn the event this information is protected by the Federal Confidentiality of Alcohol and Drug Abuse Patient Records regulations: The Federal rules restrict any use of the information to criminally investigate or prosecute any alcohol or drug abuse patient.[facility] HospitalIn the event this information is protected by the Federal Confidentiality of Alcohol and Drug Abuse Patient Records regulations: The Federal rules restrict any use of the information to criminally investigate or prosecute any alcohol or drug abuse patient.[facility] HospitalIn the event this information is protected by the Federal Confidentiality of Alcohol and Drug Abuse Patient Records regulations: The Federal rules restrict any use of the information to criminally investigate or prosecute any alcohol or drug abuse patient.[facility] HospitalIn the event this information is protected by the Federal Confidentiality of Alcohol and Drug Abuse Patient Records regulations: The Federal rules restrict any use of the information to criminally investigate or prosecute any alcohol or drug abuse patient.[facility] HospitalIn the event this information is protected by the Federal Confidentiality of Alcohol and Drug Abuse Patient Records regulations: The Federal rules restrict any use of the information to criminally investigate or prosecute any alcohol or drug abuse patient.[facility] Reason for Visit (unrecogniz ed section and content) Reason Comments Radiology CT Specialty Diagnoses / Procedures Referred By Contac t Referred To Contact CT IMAGING Diagnoses Alcohol-induced acute pancreatitis, unspecified complication status Procedures CT ABDOMEN W IVCON CT ABDOMEN W/CONTRAST Aidan Larios MD [address] [place] [address] Ct Imaging Referral ID Status Reason Start Date Expiration Date V isits Requested Visits Authorized [id number] Closed Auto-Generated Referral Patient Cleared - INN Insurance Found 12/24/2021 01/09/2023 1 1 Reason Comments Hospital Follow Up Reason Comments Established Patient Reason Comments Covid19 Concern Reason Comments Reminder To Have Labs Drawn Reason Comments Refill Request Reason Comments Endoscopy Call Reason Comments Care Coordination [facility] Care Teams (unrecognized sec tion and content) Fur Vault Attendant Relationship Specialty Start Date End Date Luis Abdalla, DO [address] [place] [address] PCP - General Internal Medicine 01/12/18 Angie Fernandes Jr. [address] [id number] Referring Gastroenterology 01/12/18 Nadja Spencer RN [facility] [address] [place] [address] Transplant Center 08/31/19 Fur Vault Attendant Relationship Specialty Start Date End Date Luis Abdalla, DO [address] [place] [address] PCP - General Internal Medicine 01/12/18 Angie Fernandes Jr. [address] [address] Referring Gastroenterology 01/12/18 Nadja Spencer RN [facility] [address] [place] [address] Transplant Center 08/31/19 Fur Vault Attendant Relationship Specialty Start Date End Date Luis Abdalla, DO [address] [place] [address] PCP - General Internal Medicine 01/12/18 Angie Fernandes Jr. [address] [address] Referring Gastroenterology 01/12/18 Nadja Spencer, BATOOL [facility] [address] [place] [address] Transplant Center 08/31/19 Fur Vault Attendant Relationship Specialty Start Date End Date Luis Abdalla, DO [address] [place] [address] PCP - General Internal Medicine 01/12/18 Angie Fernandes Jr. [address] [address] Referring Gastroenterology 01/12/18 Nadja Spencer, BATOOL [facility] [address] [place] [address] Transplant Center 08/31/19 Fur Vault Attendant Relationship Specialty Start Date End Date Luis Abdalla, DO [address] [place] [address] PCP - General Internal Medicine 01/12/18 Angie Fernandes Jr. [address] [address] Referring Gastroenterology 01/12/18 Nadja Spencer, BATOOL [facility] [address] [place] [address] Transplant Center 08/31/19 Fur Vault Attendant Relationship Specialty Start Date End Date Luis Abdalla, DO [address] [place] [address] PCP - General Internal Medicine 01/12/18 Angie Fernandes Jr. [address] [address] Referring Gastroenterology 01/12/18 Nadja Spencer, BATOOL [facility] [address] [place] [address] Transplant Center 08/31/19 Fur Vault Attendant Relationship Specialty Start Date End Date Luis Abdalla, DO [address] [facility] [place] [address] PCP - General Internal Medicine 01/12/18 Angie Fernandes Jr., DO [address] [place] [address] Referring Gastroenterology 01/12/18 Nadja Spencer RN [facility] [address] [place] [address] Transplant Center 08/31/19 Fur Vault Attendant Relationship Specialty Start Date End Date Luis Abdalla, DO [address] [facility] [place] [address] PCP - General Internal Medicine 01/12/18 Angie Fernandes Jr., DO [address] [address] Referring Gastroenterology 01/12/18 Nadja Spencer, BATOOL [facility] [address] [place] [address] Transplant Center 08/31/19 Fur Vault Attendant Relationship Specialty Start Date End Date Luis Abdalla, DO [address] [facility] [place] [address] PCP - General Internal Medicine 01/12/18 Angie Fernandes Jr., DO [address] [address] Referring Gastroenterology 01/12/18 Nadja Spencer RN [facility] [address] [place] [address] Transplant Center 08/31/19 Fur Vault Attendant Relationship Specialty Start Date End Date Luis Abdalla, DO [address] [facility] [place] [address] PCP - General Internal Medicine 01/12/18 Angie Fernandes Jr., DO [address] [address] Referring Gastroenterology 01/12/18 Nadja Spencer RN [facility] [address] [place] [id number] Transplant Center 08/31/19 Team Status: Active Member Role Status Dates Luis Abdalla , Primary Care Provider Active Team Status: Inactive [...] BE BASED ON THE PRIMARY CLINICAL RECORDS. [employer] provides no warranty or guarantee of the accuracy or completeness of information in this document.
--- NOTE | 2024-04-14 12:59 | P.CN_ITS ---
Consult Note: HPI Data of Consult Patient: known to practice within the last 3 years Consult date: 03/07/24 Requesting Physician: Brandy Chan NP Primary Care Provider: Luis Hicks DO Consult Narrative Reason for consult: low back, bilateral foot pain Narrative: 38yom who presents for assessment. notes some returning pain in low back with radiation into bilateral feet. continues in a series of provider directed home exercises, which he has done for >6 weeks. denies adverse med side effects. recently underwent repeat bilateral L5-S1 TFESI under fluoroscopy with 100% improvement in pain ongoing. CATY 7%. currently on gabapentin 100mg BID with drowsiness. cc:: CC: Brandy Chan NP Review of Systems ROS Status of ROS 10 or more systems reviewed and unremark able except as noted in history and below Musculoskeletal Denies: back pain or extremity pain PFSH PFSH Medical History (Updated 12/18/23 @ 07:55 by Annette Saavedra) Liver transplant failure and rejection ?T86.42 - Liver transplant failure (ICD-10) ?T86.41 - Liver transplant rejection (ICD-10) Acid reflux ?K21.9 - Gastro-esophageal reflux disease without esophagitis (ICD-10) Hemochromatosis ?E83.119 - Hemochromatosis, unspecified (ICD-10) High blood pressure ?I10 - Essential (primary) hypertension (ICD-10) Surgical History History of fusion of cervical spine ?Z98.1 - Arthrodesis status (ICD-10) History of ERCP ?Z98.890 - Other specified postprocedural states (ICD-10) History of liver transplant ?Z94.4 - Liver transplant status (ICD-10) Meds Home Medications and Allergies Home Medications ?Medication ?Instructions ?Recorded ?Confirmed ?Type Bactrim .QOTHER 09/28/23 History amlodipine 10 mg tablet 10 mg PO DAILY 09/28/23 04/04/24 History carvedilol 12.5 mg tablet 25 mg PO BID 09/28/23 04/04/24 History magnesium 200 mg tablet 400 mg PO DAILY 09/28/23 04/04/24 History pantoprazole 40 mg tablet,delayed mg PO 09/28/23 History release tacrolimus 1 mg capsule, 3 mg PO BID 09/28/23 04/04/24 History immediate-release ursodiol 300 mg capsule 300 mg PO TID 09/28/23 04/04/24 History Allergies Allergy/AdvReac Type Severity Reaction Status Date / Time midazolam [From Versed] Allergy Unknown Agitated Verified 04/04/24 07:22 Penicillins Allergy Unknown Rash Verified 04/04/24 07:22 Exam Constitutional Documenting provider has reviewed patient's vital signs: yes Common normals: no apparent distress, oriented x3, healthy appearing, alert and well nourished General appearance: cooperative HENMT Common normals: normocephalic, hearing grossly normal bilaterally and moist oral mucous membranes Head and scalp: normocephalic Eye Common normals: PERRL Pupil: PERRL Neck & C-Spine Common normals: full ROM General: normal visual inspection Chest Common normals: inspection of chest normal Respiratory Common normals: normal respiratory effort, no retractions and no use of accessory muscles Back & Pelvis Lumbar spine/lower back: straight leg raise negative bilaterally; ROM not limited, no pain with ROM, no paraspinal muscle tenderness and no paraspinal muscle spasm Other: sensation intact BLE strength 5/5 in BLE Extremity Common normals: normal to inspection and full ROM Neuro Common normals: oriented x3, CN's II-XII intact bilaterally, moves all extremities, no focal motor deficits, no sensory deficits noted, deep tendon reflexes 2+ bilaterally and gait normal Sensorium/orientation: alert Motor exam: strength 5/5 throughout and no movement abnormalities noted Psych Common normals: mental status grossly normal, thought process normal, cooperative, affect normal, speech normal and activity/motor behavior normal Speech: normal speech Thought process: normal thought process Results Additional Findings Additional findings: If on a controlled substance or opioids, I have checked an [place] report on this patient and there are no aberrancies noted in the prescribing history.??If on a controlled substance or opioid a drug screen was completed and reviewed within the last year, and if there has not been a drug screen completed we ordered one today to monitor higher risk, state monitored pain medication use. As part of providing excellent, safe, comprehensive care, the following was completed at our patient's visit: 1. A medication reconciliation and review to ensure accurate knowledge of current/active medications, including asking our patients to inform us about any [id number] medications or herbal remedies/nutritional supplements/alternative remedies. 2. A review to specifically ensure our patients have had annual screening for screening for depression, screening for tobacco use, and screening for unhealthy alcohol use. For concerning screenings had a discussion with the patient, provided patient education, and recommended follow-up with primary care provider when appropriate. If patient noted with a risk of falling, they received education on strength, gait, and balance training to prevent future risk of falling. Assessment and Plan Assessment and Plan (1) Lumbar stenosis without neurogenic claudication: (2) Lumbar radiculopathy: Plan repeat bilateral L5-S1 TFESI 100% improvement ongoing per pt decrease gabapentin 100mg daily for 1 week then DC. if pain returns can restart f/u 3 months, sooner if needed
== END 2024-04-14 12:43 | disposition home or self-care (01) ==
LOC: PM 12:42
PROVIDERS: PCP Internal Medicine; Visit Provider Nurse Practitioner
DX: M48.061 Spinal stenosis, lumbar region without neurogenic claudication (principal); M54.16 Radiculopathy, lumbar region
CPT/HCPCS: G0463

== ENCOUNTER 2024-06-02 12:40 | Outpatient (OUT) | payer MEDICARE, MEDICAID, SELFPAY ==
--- NOTE | 2024-06-02 13:14 | P.CN_ITS ---
Consult Note: HPI Data of Consult Patient: known to practice within the last 3 years Consult date: 03/07/24 Requesting Physician: Brandy Chan NP Primary Care Provider: Luis Hicks, DO Consult Narrative Reason for consult: low back, bilateral foot pain Narrative: 38yom who presents for assessment. notes some returning pain in low back with radiation into bilateral feet. continues in a series of provider directed home exercises, which he has done for >6 weeks. denies adverse med side effects. recently underwent repeat bilateral L5-S1 TFESI providing >50% improvement ongoing. Pt feels the injection is providing less relief at this time, was previously experiencing 100% improvement until 2 weeks ago, now >50%. restarted gabapentin 100mg BID with no improvement. pain today /10 increasing to 7/10. cc:: CC: Brandy Chan NP Review of Systems ROS Status of ROS 10 or more systems reviewed and unremark able except as noted in history and below Musculoskeletal Reports: extremity pain PFSH PFSH Medical History (Updated 12/18/23 @ 07:55 by Annette Saavedra) Liver transplant failure and rejection ?T86.42 - Liver transplant failure (ICD-10) ?T86.41 - Liver transplant rejection (ICD-10) Acid reflux ?K21.9 - Gastro-esophageal reflux disease without esophagitis (ICD-10) Hemochromatosis ?E83.119 - Hemochromatosis, unspecified (ICD-10) High blood pressure ?I10 - Essential (primary) hypertension (ICD-10) Surgical History History of fusion of cervical spine ?Z98.1 - Arthrodesis status (ICD-10) History of ERCP ?Z98.890 - Other specified postprocedural states (ICD-10) History of liver transplant ?Z94.4 - Liver transplant status (ICD-10) Meds Home Medications and Allergies Home Medications ?Medication ?Instructions ?Recorded ?Confirmed ?Type Bactrim .QOTHER 09/28/23 History amlodipine 10 mg tablet 10 mg PO DAILY 09/28/23 04/04/24 History carvedilol 12.5 mg tablet 25 mg PO BID 09/28/23 04/04/24 History magnesium 200 mg tablet 400 mg PO DAILY 09/28/23 04/04/24 History pantoprazole 40 mg tablet,delayed mg PO 09/28/23 History release tacrolimus 1 mg capsule, 3 mg PO BID 09/28/23 04/04/24 History immediate-release ursodiol 300 mg capsule 300 mg PO TID 09/28/23 04/04/24 History Allergies Allergy/AdvReac Type Severity Reaction Status Date / Time midazolam (From Versed) Allergy Unknown Agitated Verified 04/04/24 07:22 Penicillins Allergy Unknown Rash Verified 04/04/24 07:22 Exam Narrative Exam Narrative: Psych-alert and oriented x 3. Attentive and appropriate, constitutionally normal, displays normal mood and affect per situation. There are no obvious deficits in memory, reasoning, or intellect.? Skin-no obvious rashes, bruising, erythema noted to the patient's area of pain.? Extremities- extremities are warm with minimal edema and palpable pulses. Lumbar-tenderness to palpation noted in the lumbar spine and paraspinal musculature. Pain is not elicited with flexion, extension, and lateral rotation of the lumbar spine. Range of motion is not diminished with these motions. Facet loading maneuvers are negative.? Strength-noted to be unremarkable with the exception of decreased strength rated at 4 out of 5 in bilateral anterior tibialis, posterior tibialis. Sensory-no notable sensory deficits in the bilateral lower extremities to touch or pinprick in all dermatomal distributions with the exception to decreased sensation to the bilateral L4, 5 dermatomal distribution Coordination remains intact.? Gait remains non-antalgic. Results Additional Findings Additional findings: If on a controlled substance or opioids, I have checked an [place] report on this patient and there are no aberrancies noted in the prescribing history.??If on a controlled substance or opioid a drug screen was completed and reviewed within the last year, and if there has not been a drug screen completed we ordered one today to monitor higher risk, state monitored pain medication use. As part of providing excellent, safe, comprehensive care, the following was completed at our patient's visit: 1. A medication reconciliation and review to ensure accurate knowledge of current/active medications, including asking our patients to inform us about any [id number] medications or herbal remedies/nutritional supplements/alternative remedies. 2. A review to specifically ensure our patients have had annual screening for screening for depression, screening for tobacco use, and screening for unhealthy alcohol use. For concerning screenings had a discussion with the patient, provided patient education, and recommended follow-up with primary care provider when appropriate. If patient noted with a risk of falling, they received education on strength, gait, and balance training to prevent future risk of falling. Assessment and Plan Assessment and Plan (1) Lumbar stenosis without neurogenic claudication: Plan repeat bilateral L5-S1 TFESI under fluoroscopy in 1 month if less than 50% improvement at that time, risks vs benefits reviewed increase gabapentin 300mg BID, risks vs benefits reviewed continue HEP as tolerated consider spinal cord stimulator in the future, handout provided today f/u after injection
== END 2024-06-02 12:41 | disposition home or self-care (01) ==
LOC: PM 12:41
PROVIDERS: PCP Internal Medicine; Visit Provider Nurse Practitioner
DX: M48.062 Spinal stenosis, lumbar region with neurogenic claudication (principal)
CPT/HCPCS: G0463

== ENCOUNTER 2024-07-04 07:05 | Day surgery (SDC) | payer MEDICARE, MEDICAID, SELFPAY ==
[2024-07-04 07:19] VITALS: BP 129/95; PULSE 104; TEMP 37; O2SAT 95
[2024-07-04 08:23] VITALS: BP 148/102; PULSE 94; O2SAT 98
[2024-07-04 08:24] VITALS: BP 150/99; PULSE 93; O2SAT 98
--- NOTE | 2024-07-04 08:27 | W.PM.PROCNOT ---
Date of procedure: 07/04/24 Pre-op diagnosis: Pain due to lumbar stenosis with neurogenic claudication Post-op diagnosis: same as pre-op Procedure: Procedure: Bilateral L5-S1 transforaminal epidural steroid injection Medications: Bupivacaine 0.25% 2cc, lidocaine 2% 1cc, kenalog 80mg The patient was seen and examined in the preoperative holding area.? Informed consent was obtained and placed on the chart.? Patient was brought to the medical procedure unit and placed in the prone position where a timeout was completed verifying the correct patient, procedure site, position, and planned special equipment using sterile aseptic technique.? Under direct fluoroscopic visualization a 25-gauge Quincke tipped spinal needle was advanced at level left L5-S1 to the designated neural foramen where contrast dye was injected to show adequate spread.? There was no evidence of vascular or adverse uptake.? Epidural spread was appreciated.? The above-mentioned injectate was then placed in a 1.5 mL aliquot preceded by negative aspiration.? The needle was removed. The same procedure, at the same level, was completed on the opposite side. ? Patient was taken to the postprocedural recovery area and monitored for an appropriate length of time before found suitable for discharge in the accompaniment of a responsible adult. Anesthesia: Local Surgeon: Vicente Thompson Pathology: none sent Condition: stable Disposition: no change
[2024-07-04] MEDS: 0.9 % SODIUM CHLORIDE 10 ML SYRINGE - SALINE FLUSH INJ (08:29)
[2024-07-04] MEDS: TRIAMCINOLONE ACETONIDE 40 MG/ML VIAL 80 MG INJ (08:30)
[2024-07-04] MEDS: BUPIVACAINE HCL 0.25% PF 25 MG/10 ML VIAL INJ (08:30)
[2024-07-04] MEDS: LIDOCAINE HCL 2% 400 MG/20 ML MDV 3 ML INJ (08:30)
[2024-07-04] MEDS: IOHEXOL 240 MG/ML - 10 ML VIAL 12 MG INJ (08:30)
== END 2024-07-04 08:32 | disposition home or self-care (01) ==
LOC: SURGOUT 07:06
PROVIDERS: PCP Internal Medicine; Visit Provider Anesthesiology
DX: M48.062 Spinal stenosis, lumbar region with neurogenic claudication (principal)
CPT/HCPCS: 64483; J0665; J3301; Q9966

== ENCOUNTER 2024-07-14 10:27 | Outpatient (OUT) | payer MEDICARE, MEDICAID, SELFPAY ==
--- OUTSIDE RECORDS SUMMARY | 2024-07-14 10:38 | XMS_ITS | CCD ---
Author Organization [facility] CliniSyoh Care Team Providers Care Assembler Skylights Name Role Phone DR LUIS ABDALLA Attending Unavailable RM, DR VAZQUEZ Consulting Unavailable RM, DR VAZQUEZ Primary Care Unavailable RM, DR VAZQUEZ Admitting Unavailable WEST, DR ANGIE Winslow Consulting Unavailable Luis Abdalla DO Primary Care Provider Angie Fernandes Jr. Unavailable [phone] Nadja Spencer RN Unavailable Unavailable Luis Abdalla [...] (antibiotic) (1 source) Penicillin Drug Allergy [facility] Repository (17 sources) Midazolam; Translations: [MIDAZOLAM] Drug Allergy 1 Other: See Comments [facility] (7 sources) Penicillins; Translations: [PENICILLINS] Drug Allergy 4 Unknown, Swelling [facility] Work Phone: (16 sources) Seasonal allergy; Translations: [SEASONAL ALLERGIES] Propensity to adverse reactions 8 Unknown [facility] (10 sources) Penicillins Drug Allergy Unknown [facility] Work Phone: (4 sources) penicillAMINE Drug Allergy 4 Unknown, Unknown Reaction [facility] (2 sources) Penicillin; Translations: [penicillin] Drug Allergy Urticaria (disorder) [facility] Medications Current Medications Medication Drug Class(es) [...] for Treatmenton 05-28 Consent for Treatment [id number] IFF [facility] Discharge Instructionson Discharge Instructions [id number]#[id number] 0TIFF [facility] ED Clinical Summaryon 2022 ED Clinical Summary (Inserted Image. Suzanne ble to display) [address] [address] ED Clinical Summary Person Information Name: CHUCKIE VILLALTA Marissa/[facility] Age: 37 Years : 1985 Sex: Male Language: Czech PCP: LUIS ABDALLA DO Marital Status: Phone: [phone] Visit Id: Visit Reason: Foot pain-swelling; PAIN [...] 06/20/2023 18:04:25 06/20/2023 18:04:25 06/20/2023 18:04:25 ADDRESS: [address] [place] [phone] PHYS DOC NOTES: MEDICAL INFORMATION: Prescriptions Given: PATIENT EDUCATION INFORMATION: Instructions: Foot Sprain; Elastic Bandage and RICE Therapy; Ankle Sprain, Phase II Rehab; Ankle Sprain, Phase I Rehab; Ankle Sprain Follow up: With: Address: When: LUIS ABDALLA [facility] [place] [address] [facility] In 3 days 06/23/2023 Comments: Follow-up with your primary care provider in 3 to 5 days. If symptoms worsen, do not improve, or new symptoms arise please report back to emergency department for further evaluation. DIAGNOSIS: Left ankle sprain; Sprain of left foot [facility] ED Note-Physicianon 06-20-20 ED Note-Physician [...] and Complexity of Problems Differential Diagnosis: [] [facility] Data External documents reviewed: [] My [...] In 3 days 06/23/2023 EST [address] [place] [address]- Business (1) Additional Instructions: Follow-up with your [...] seen and evaluated by the physician assistant field hockey coach. Attending physician was present in the emergency department and supervised care. This visit was performed by both the physician and an APC. I performed all aspects of the MDM as documented. This report was transcribed using voice recognition software. Every effort was made to ensure accuracy, however, inadvertently computerized slash trimmer mistakes may be present. Appropriate healthcare PPE was used in evaluating this patient. The patient was placed in a mask. The healthcare provider was wearing mask, gloves, and utilizing proper hand hygiene. All equipment was properly cleansed. Problem List/Past Medical History Ongoing No qualifying data Historical No qualifyi (more content not included)... [facility] Comment on above: Result Comment: [...] on your foot. General instructions ? Take elfz-upj-jzfzmzb and prescription medicines only as told by your health care provider. ? When you can walk without pain, wear supportive shoes t (more content not included)... [facility] ED Patient Summaryon 023 ED Patient Summary (Inserted Image. Suzanne ble to display) [address] [address] Patient Discharge Instructions Person Information Name: CHUCKIE VILLALTA Age: 37 Years MRN: [id number] Arrival Date: 06/20/2023 15:53:53 Discharge Diagnosis: Left ankle sprain; Sprain of left foot Primary Care Physician: LUIS ABDALLA DO Provider Information Primary Provider: Wilmer Rosenberg M.D. [employer] Technician:None The exam and treatment you received in the Emergency Department were for an urgent problem and are not intended as complete care. It is important that you follow up with a doctor, nurse practitioner, or physician?s assistant field hockey coach for ongoing care. If your symptoms [...] With: Address: When: LUIS ABDALLA [address] [place] [address] Business (1) In 3 days [...] opioids can be used to help relieve cgnyjtaf-ut-mwiege pain and are often prescribed following a [...] Administration (www.fda.gov/Kali (more content not included)... [facility] XR Ankle 3+ Views Lefton [...] mGy = na DAP = na [facility] XR Foot 3+ Views Lefton [...] Signer Luis GIRON Transcribed by: DAVID Technologist: PATRICIA Technical Comments Radiation Dose: Ka,r in mGy = na DAP = na [facility] ANES POSTPROC EVALon 023 ANES POSTPROC EVAL HNO ID: [id number] Author: Delmer Webber MD Service: ? Author [...] Quezada MD; Delmer Webber MD; Henrietta Brewster APRN.SPEEDBOAT OPERATOR Responsible Provider: Delmer Webber MD Anesthesia Type: [...] March 19, 2023 TIME: 10:05 AM CSN: [id number] Normal [facility] ANES PRE-OPon 03-19-2023 ANES PRE-OP HNO ID: [id number] Author: Delmer Webber MD Service: ? Author Type: Anesthesiologist Type: Anesthesia Preprocedure Evaluation Filed: 03/19/2023 8:02 AM Note Text: ANESTHESIOLOGY DAY OF SURGERY NOTE : 1985 Procedure Information Date/Time: 03/19/23 0800 Scheduled providers: Betina Quezada MD; Delmer Webber MD; Henrietta Brewster APRN.SPEEDBOAT OPERATOR Procedure: ERCP Location: Gastroenterology Estimated body mass [...] and consent discussed: yes. Patient / Responsible Constitution Party agrees to proceed: yes Patient / [...] March 19, 2023 TIME: 8:02 AM CSN: [id number] Normal [facility] Gas and Carbon monoxide pane l (BldV)on 03-19-2023 BASE DEFICIT, VENOUS -3 mmol/L Low -2-0 [facility] Comment on above: Order Comment: Noe madrid Type: BLOOD SPECIMEN Ordering Facility: [facility] Address: [address] [id number] Performed By: #### 5 763-8, COPPER #### [facility] CLIA [id number] [address] [place] [address] [place] Body temperature 98.24 [degF] Normal [facility] Comment on above: Order Comment: Noe madrid Type: BLOOD SPECIMEN Ordering Facility: [facility] Address: [address] [address] Performed By: #### 5 763-8, COPPER #### [facility] CLIA [id number] [address] [place] [address] [place] Calcium.ionized (Bld) [Mass/Vol] 1.24 mmol/L Normal 1.08-1.30 [facility] Comment on above: Order Comment: Speci men Type: BLOOD SPECIMEN Ordering Facility: [facility] Address: [address] [place] [address] Performed By: #### 5 763-8, COPPER #### [facility] CLIA [id number] [address] [place] [address] [place] Calcium.ionized adjusted to pH 7.4 (BldA) [Moles/Vol] 1.23 mmol/L Normal 1.08-1.30 [facility] Comment on above: Order Comment: Speci men Type: BLOOD SPECIMEN Ordering Facility: [facility] Address: [address] [place] [address] Performed By: #### 5 763-8, COPPER #### [facility] IA [id number] [address] [place] [address] [place] Carboxyhemoglobin (BldV) [Mass fraction] 1.2 % Normal 0.0-2.0 [facility] Comment on above: Order Comment: Speci men Type: BLOOD SPECIMEN Ordering Facility: [facility] Address: [address] [place], [place] [id number] Result Comment: Carb oxyhemoglobin Reference Range for Smokers: 2.0-8.0% Performed By: #### 5 763-8, COPPER #### [facility] CLIA [id number] [address] [place] [address] [place] CO2 (BldV) [Partial pressure] 36 mm[Hg] Low 42-55 [facility] Comment on above: Order Comment: Speci men Type: BLOOD SPECIMEN Ordering Facility: [facility] Address: [address] [place], [place] [address] Performed By: #### 5 763-8, COPPER #### [facility] CLIA [id number] [address] [place] [address] [place] CO2 adjusted to patient's actual temperature (BldV) [Partial pressure] 35 mmHg Low 42-55 [facility] Comment on above: Order Comment: Speci men Type: BLOOD SPECIMEN Ordering Facility: [facility] Address: [address] [place], [place] [address] Performed By: #### 5 763-8, COPPER #### [facility] CLIA [id number] [address] [place] [address] [place] Glucose [Mass/Vol] 124 mg/dL High 60-105 [facility] Comment on above: Order Comment: Speci men Type: BLOOD SPECIMEN Ordering Facility: [facility] Address: [address] [place], [place] [address] Performed By: #### 5 763-8, COPPER #### [facility] CLIA [id number] [address] [place] [address] [place] HCO3 (Bld) [Moles/Vol] 21 mmol/L Low 24-28 [facility] Comment on above: Order Comment: Speci men Type: BLOOD SPECIMEN Ordering Facility: [facility] Address: [address] [place], [place] [address] Performed By: #### 5 763-8, COPPER #### [facility] CLIA [id number] [address] [place] [address] [place] Hematocrit (Bld) [Volume fraction] 41.1 % Normal 39.0-51.0 [facility] Comment on above: Order Comment: Speci men Type: BLOOD SPECIMEN Ordering Facility: [facility] Address: [address] [place], [place] [address] Performed By: #### 5 763-8, COPPER #### [facility] CLIA [id number] [address] [place] [address] [place] Hemoglobin (Bld) [Mass/Vol] 13.4 g/dL Normal 13.0-17.0 [facility] Comment on above: Order Comment: Speci men Type: BLOOD SPECIMEN Ordering Facility: [facility] Address: [address] [place], [place] [address] Performed By: #### 5 763-8, COPPER #### [facility] CLIA [id number] [address] [place] [address] [place] Lactate [Moles/Vol] 1.9 mmol/L Normal 0.5-2.2 [facility] Comment on above: Order Comment: Speci men Type: BLOOD SPECIMEN Ordering Facility: [facility] Address: [address] [place], [place] [address] Performed By: #### 5 763-8, COPPER #### [facility] CLIA [id number] [address] [place] [address] [place] Methemoglobin (Bld) [Mass fraction] 0.8 % Normal 0.0-1.5 [facility] Comment on above: Order Comment: Speci men Type: BLOOD SPECIMEN Ordering Facility: [facility] Address: [address] [place], [place] [address] Performed By: #### 5 763-8, COPPER #### [facility] CLIA [id number] [address] [place] [address] [place] O2 THERAPY RA=Room Air Normal [facility] Comment on above: Order Comment: Speci men Type: BLOOD SPECIMEN Ordering Facility: [facility] Address: [address] [place], [place] [address] Performed By: #### 5 763-8, COPPER #### [facility] CLIA [id number] [address] [place] [address] [place] Oxygen (BldV) [Partial pressure] 69 mm[Hg] High 35-45 [facility] Comment on above: Order Comment: Speci men Type: BLOOD SPECIMEN Ordering Facility: [facility] Address: [address] [place] [address] Performed By: #### 5 763-8, COPPER #### [facility] CLIA [id number] [address] [place] [address] [place] Oxygen adjusted to patient's actual temperature (BldV) [Partial pressure] 68 mmHg High 35-45 [facility] Comment on above: Order Comment: Speci men Type: BLOOD SPECIMEN Ordering Facility: [facility] Address: [address] Performed By: #### 5 763-8, COPPER #### [facility] CLIA [id number] [address] [place] [address] [place] Oxygen saturation in Venous blood 94 % High 60-85 [facility] Comment on above: Order Comment: Speci men Type: BLOOD SPECIMEN Ordering Facility: [facility] Address: [address] Performed By: #### 5 763-8, COPPER #### [facility] CLIA [id number] [address] [place] [address] [place] Oxyhemoglobin (BldV) [Mass fraction] 92 % High 60-85 [facility] Comment on above: Order Comment: Speci men Type: BLOOD SPECIMEN Ordering Facility: [facility] Address: [address] Performed By: #### 5 763-8, COPPER #### [facility] CLIA [id number] [address] [place] [address] [place] pH (BldV) 7.39 [pH] Normal 7.32-7.42 [facility] Comment on above: Order Comment: Speci men Type: BLOOD SPECIMEN Ordering Facility: [facility] Address: [address] Performed By: #### 5 763-8, COPPER #### [facility] CLIA [id number] [address] [place] [address] [place] pH adjusted to patient's actual temperature (BldV) 7.39 Normal 7.32-7.42 [facility] Comment on above: Order Comment: Speci men Type: BLOOD SPECIMEN Ordering Facility: [facility] Address: [address] [place] [address] Performed By: #### 5 763-8, COPPER #### [facility] CLIA [id number] [address] [place] [address] [place] Potassium [Moles/Vol] 4.1 mmol/L Normal 3.5-5.0 [facility] Comment on above: Order Comment: Speci men Type: BLOOD SPECIMEN Ordering Facility: [facility] Address: [address] [place] [address] Performed By: #### 5 763-8, COPPER #### [facility] CLIA [id number] [address] [place] [address] [place] Sodium [Moles/Vol] 140 mmol/L Normal 136-144 [facility] Comment on above: Order Comment: Speci men Type: BLOOD SPECIMEN Ordering Facility: [facility] Address: [address] [place] [address] Performed By: #### 5 763-8, COPPER #### [facility] CLIA [id number] [address] [place] [address] [place] NURSING PROGon 03-19-2023 NURSING PROG HNO ID: [id number] Author: Blanca Kulkarni RN Service: Nursing Author [...] None Electronically Signed By: Blanca Kulkarni RN [facility] NURSING PROG HNO ID: [id number] Author: Indu Meza RN Service: Nursing Author [...] By: Indu Meza RN In Department: GASTROENTEROLOGY [facility] [place] 03-12-2023 [facility] Telephone ([facility] CHUCKIE VILLALTA ([id number]) 1985 M Date Time Provider Department 03/12/23 YAMILET YAN [facility] During your visit today, we recorded the [...] have family/friend present for procedure transport home:Patient/patient customer engagement representative was told that if they do [...] area. Any barriers to Patient learning: Patient/Patient Pet Nutrition Specialist responded appropriately on phone. Type of instruction given: Verbal by telephone contact. Yamilet Yan RN Allergies As of Date: 03/12/2023 Noted Allergy Reaction PENICILLINS 16 - Unknown Comments: Skin test positive 09/01/18 MIDAZOLAM 02/18/2021 14 - Other: See Comments SEASONAL ALLERGIES 06/29/2018 16 - Unknown Date Reviewed: 12/11/2022 Reviewed by: Aicha Bragg RN - Fully Assessed Reason for Visit: Appointment Confirmation [9098] Prescriptions as of 03/12/2023 - tacrolimus IR [...] Encounter Status:Closed by YAMILET YAN on 03/12/23 [facility] ANES POSTPROC EVALon 023 ANES POSTPROC EVAL HNO ID: [id number] Author: Angie Lloyd MD Service: ? Author [...] December 11, 2022 TIME: 12:57 PM CSN: [id number] Normal [facility] ANES PRE-OPon 12-11-2022 ANES PRE-OP HNO ID: [id number] Author: Angie Lloyd MD Service: ? Author [...] and consent discussed: yes. Patient / Responsible Constitution Party agrees to proceed: yes Patient / [...] December 11, 2022 TIME: 9:21 AM CSN: [id number] [facility] NURSING PROGon 12-11-2022 NURSING PROG HNO ID: [id number] Author: Aicha Bragg RN Service: ? Author [...] None Electronically Signed By: Aicha Bragg RN [facility] NURSING PROG HNO ID: [id number] Author: Tatiana Ray RN Service: Nursing Author [...] Tatiana Ray RN In Department: GASTROENTEROLOGY Normal [facility] [place] 11-04-2022 CNPN Telephone (LU4C) CHUCKIE VILLALTA ([id number]) 1985 M TRN Date Time Provider Department 11/04/22 MIMI CLEMENS [facility] During your visit today, we recorded the following information about you: SHAQ Price 11/04/2022 11:06 AM Signed DEONDRE attempted to contact the patient to discuss the [facility] clinic. DEONDRE left a VM and [...] Fully Assessed Reason for Visit: Care Coordination [8847] Cmt: [facility] clinic Prescriptions as of 11/04/2022 - [...] Encounter Status:Closed by MIMI CLEMENS on 11/04/22 [facility] 09-22-2022 CNP Telephone (GASTA5) CHUCKIE VILLALTA ([id number]) 1985 M TRN Date Time Provider Department 09/22/22 RASHIDA LIRIANO GASTA5 During your visit today, we recorded the following information about you: Rashida Liriano RN 09/22/2022 11:33 AM Signed Called and left patient regarding referral to [facility]. Call back number provided. Blushr message with the details also sent. Rashida Liriano RN September 22, 2022 11:32 AM Allergies As of Date: 09/22/2022 Noted Allergy Reaction PENICILLINS 16 - Unknown Comments: Skin test positive 09/01/18 [place]AZOLAM 02/18/2021 14 - Other: See Comments SEASONAL ALLERGIES 06/29/2018 16 - Unknown Date Reviewed: 09/04/2022 Reviewed by: Tova Wilson RN - Fully Assessed Reason for Visit: Care Coordination [1365] Cmt: [facility] Prescriptions as of 09/22/2022 - tacrolimus [...] Status:Closed by RASHIDA LIRIANO on 09/22/22 Normal [facility] CASE MANAGEMon 09-05-2022 CASE MANAGEM HNO ID: [id number] Author: JEY Felton Service: ? Author Type: Brake Repairer Type: Care Mgt Progress Note Filed: 09/05/2022 [...] DEONDRE NOVA also provided Pt with the [email or web address] website for him to find local and virtual AA meetings in his area. DEONDRE NOVA encouraged Pt to reach back out to DEONDRE with any questions and/or concerns regarding community resources for alcohol abuse prior to his D/C from the hospital if needed* For weekend CM needs, please contact on-call CM at: G [employer] - [phone] H [employer] - [phone] J [employer] - [phone] M [employer] - [phone] SIGNATURE: JEY Jim PATIENT NAME: Chuckie Villalta DATE: September 05, 2022 TIME: 9:30 AM PAGER/CONTACT #: Normal [facility] CBC panel Auto (Bld)on 09-05 Erythrocyte distribution width (RBC) [Ratio] 17.1 % High 11.5-15.0 [facility] Comment on above: Order Comment: Speci men Type: BLOOD SPECIMEN Ordering Facility: [facility] Address: [address] [place], [place] [id number] Performed By: #### 5 763-8, COPPER #### [facility] CLIA [id number] [address] [facility] [address] OF [facility] Hematocrit (Bld) [Volume fraction] 37.4 % Low 39.0-51.0 [facility] Comment on above: Order Comment: Speci men Type: BLOOD SPECIMEN Ordering Facility: [facility] Address: [address] Performed By: #### 5 763-8, COPPER #### [facility] CLIA [id number] [address] [place] [address] [place] Hemoglobin (Bld) [Mass/Vol] 12.8 g/dL Low 13.0-17.0 [facility] Comment on above: Order Comment: Speci men Type: BLOOD SPECIMEN Ordering Facility: [facility] Address: [address] Performed By: #### 5 763-8, COPPER #### [facility] CLIA [id number] [address] [place] [address] [place] MCH (RBC) [Entitic mass] 30.3 pg Normal 26.0-34.0 [facility] Comment on above: Order Comment: Speci men Type: BLOOD SPECIMEN Ordering Facility: [facility] Address: [address] Performed By: #### 5 763-8, COPPER #### [facility] CLIA [id number] [address] [place] [address] [place] MCHC (RBC) [Mass/Vol] 34.2 g/dL Normal 30.5-36.0 [facility] Comment on above: Order Comment: Speci men Type: BLOOD SPECIMEN Ordering Facility: [facility] Address: [address] Performed By: #### 5 763-8, COPPER #### [facility] CLIA [id number] [address] [place] [address] [place] MCV (RBC) [Entitic vol] 88.4 fL Normal 80.0-100.0 [facility] Comment on above: Order Comment: Speci men Type: BLOOD SPECIMEN Ordering Facility: [facility] Address: [address] Performed By: #### 5 763-8, COPPER #### [facility] CLIA [id number] [address] [place] [address] [place] Nucleated RBC (Bld) [#/Vol] 10*3/uL Normal <0.01 [facility] Comment on above: Order Comment: Speci men Type: BLOOD SPECIMEN Ordering Facility: [facility] Address: [address] [place], [place] [address] Performed By: #### 5 763-8, COPPER #### [facility] CLIA [id number] [address] [place] [address] [place] Platelet mean volume (Bld) [Entitic vol] 12.6 fL Normal 9.0-12.7 [facility] Comment on above: Order Comment: Speci men Type: BLOOD SPECIMEN Ordering Facility: [facility] Address: [address] [place], [place] [address] Performed By: #### 5 763-8, COPPER #### [facility] CLIA [id number] [address] [place] [address] [place] Platelets (Bld) [#/Vol] 61 10*3/uL Low 150-400 [facility] Comment on above: Order Comment: Speci men Type: BLOOD SPECIMEN Ordering Facility: [facility] Address: [address] [place], [place] [address] Result Comment: Resu lts checked and verified.No clot detected. Performed By: #### 5 763-8, COPPER #### [facility] CLIA [id number] [address] [place] [address] [place] RBC (Bld) [#/Vol] 4.23 10*6/uL Normal 4.20-6.00 [facility] Comment on above: Order Comment: Speci men Type: BLOOD SPECIMEN Ordering Facility: [facility] Address: [address] [place], [place] [address] Performed By: #### 5 763-8, COPPER #### [facility] CLIA [id number] [address] [facility] [place] [address] [place] WBC (Bld) [#/Vol] 4.92 10*3/uL Normal 3.70-11.00 [facility] Comment on above: Order Comment: Speci men Type: BLOOD SPECIMEN Ordering Facility: [facility] Address: [address] [place] [address] Performed By: #### 5 763-8, COPPER #### [facility] CLIA [id number] [address] [id number] [place] CNDSon 09-05-2022 CNDS HNO ID: [id number] Author: Minna Tilley MD Service: General Internal [...] DOPPLER COM (more content not included)... Normal [facility] Comprehensive metabolic 2000 panelon 09-05-2022 Albumin [Mass/Vol] 3.8 g/dL Low 3.9-4.9 [facility] Comment on above: Order Comment: Louiei mercy Type: BLOOD SPECIMENOrdering Facility: [facility] Address: [address] [place] [address] Performed By: #### 2 4323-8 ####[facility] [id number] [place] [address] [place] ALP [Catalytic activity/Vol] 94 U/L Normal 38-113 [facility] Comment on above: Order Comment: Louiei mercy Type: BLOOD SPECIMENOrdering Facility: [facility] Address: [address] [place] [address] Performed By: #### 2 4323-8 ####[facility] [id number] [place] [address] [place] ALT [Catalytic activity/Vol] 101 U/L High 10-54 [facility] Comment on above: Order Comment: Louiei mercy Type: BLOOD SPECIMENOrdering Facility: [facility] Address: [address] [address] Performed By: #### 2 4323-8 ####[facility] [id number] [place] [address] [place] Anion gap [Moles/Vol] 11 mmol/L Normal 9-18 [facility] Comment on above: Order Comment: Speci men Type: BLOOD SPECIMENOrdering Facility: [facility] Address: [address] [place] [address] Performed By: #### 2 4323-8 ####[facility] [id number] [place] [address] [place] AST [Catalytic activity/Vol] 75 U/L High 14-40 [facility] Comment on above: Order Comment: Speci men Type: BLOOD SPECIMENOrdering Facility: [facility] Address: [address] [place] [address] Performed By: #### 2 4323-8 ####[facility] [id number] [place] [address] [place] Bilirubin [Mass/Vol] 1.8 mg/dL High 0.2-1.3 [facility] Comment on above: Order Comment: Speci men Type: BLOOD SPECIMENOrdering Facility: [facility] Address: [address] [place], [place] [address] Performed By: #### 2 4323-8 ####[facility] [id number] [place] [address] [place] Calcium [Mass/Vol] 9.6 mg/dL Normal 8.5-10.2 [facility] Comment on above: Order Comment: Speci men Type: BLOOD SPECIMENOrdering Facility: [facility] Address: [address] [place], [place] [address] Performed By: #### 2 4323-8 ####[facility]IA [id number] [place] [address] [place] Chloride [Moles/Vol] 102 mmol/L Normal 97-105 [facility] Comment on above: Order Comment: Speci men Type: BLOOD SPECIMENOrdering Facility: [facility] Address: [address] [address] Performed By: #### 2 4323-8 ####[facility] LABIA [id number] [place] [address] [place] CO2 [Moles/Vol] 23 mmol/L Normal 22-30 [facility] Comment on above: Order Comment: Speci men Type: BLOOD SPECIMENOrdering Facility: [facility] Address: [address] [address] Performed By: #### 2 4323-8 ####[facility] LABIA [id number] [place] [address] [place] Creatinine [Mass/Vol] 1.16 mg/dL Normal 0.73-1.22 [facility] Comment on above: Order Comment: Speci men Type: BLOOD SPECIMENOrdering Facility: [facility] Address: [address] [place] [address] Performed By: #### 2 4323-8 ####[facility] LABIA [id number] [address] [place] ESTIMATED GLOMERULAR FILTRATION RATE 84 mL/min/1.73m??? Normal >=60 [facility] Comment on above: Order Comment: Speci men Type: BLOOD SPECIMENOrdering Facility: [facility] Address: [address] [place] [address] Result Comment: Brenda mated Glomerular Filtration Rate [...] Performed By: #### 2 4323-8 ####[facility] LABCLIA [id number] [place] [address] [place] Glucose [Mass/Vol] 170 mg/dL High 74-99 [facility] Comment on above: Order Comment: Speci men Type: BLOOD SPECIMENOrdering Facility: [facility] Address: [address] [place] [address] Result Comment: The [employer] (ADA) provides guidance for cutoff [...] Standards of Medical Care in Diabetes 2016, [employer]. Diabetes Care. 2016.39(Suppl 1). Performed By: #### 2 4323-8 ####[facility]CLIA [id number] [place] [address] [place] Potassium [Moles/Vol] 3.8 mmol/L Normal 3.7-5.1 [facility] Comment on above: Order Comment: Speci men Type: BLOOD SPECIMENOrdering Facility: [facility] Address: [address] [place] [address] Performed By: #### 2 4323-8 ####[facility]CLIA [id number] [place] [address] [place] Protein [Mass/Vol] 6.8 g/dL Normal 6.3-8.0 [facility] Comment on above: Order Comment: Speci men Type: BLOOD SPECIMENOrdering Facility: [facility] Address: [address] [place] [address] Performed By: #### 2 4323-8 ####[facility]CLIA [id number] [place] [address] [place] Sodium [Moles/Vol] 136 mmol/L Normal 136-144 [facility] Comment on above: Order Comment: Speci men Type: BLOOD SPECIMENOrdering Facility: [facility] Address: [address] [place] [address] Performed By: #### 2 4323-8 ####[facility]CLIA [id number] [address] Urea nitrogen [Mass/Vol] 11 mg/dL Normal 9-24 [facility] Comment on above: Order Comment: Speci men Type: BLOOD SPECIMENOrdering Facility: [facility] Address: [address] [place] [address] Performed By: #### 2 4323-8 ####[facility] LABCLIA [id number] [address] OF [facility] NUTRITIONon 09-05-2022 NUTRITION HNO ID: [id number] Author: Gifty Arnold RD Service: Nutrition Therapy Author Type: Registered Dietitian Type: Nutrition Filed: 09/05/2022 1:39 PM Note Text: NUTRITION THERAPY INITIAL ASSESSMENT SERVICE DATE: 09/05/2022 SERVICE TIME: 10:50 am Nutrition Assessment: Recommended Malnutrition Diagnosis: No Malnutrition Identified Nutrition Diagnosis: Problem: Suboptimal protein/energy intake Related to: Unknown etiology As evidenced by: Medical condition, Intake records Estimated kilocalorie needs: 7174-1071 Calorie Calculation Method: 20-25 kcals/kg Estimated protein [...] per patient. 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 Consumes 3 meals daily at home. Denies [...] September 05, 2022 TIME: 1:35 PM Normal [facility] PT panel Coag (PPP)on 2022 INR Coag (PPP) [Relative time] 1.0 {INR} Normal 0.9-1.3 [facility] Comment on above: Order Comment: Noe madrid Type: BLOOD SPECIMEN Ordering Facility: [facility] Address: [address] [place] [phone] Result Comment: Aster min K Antagonist (VKA) Therapeutic Range: INR 2 to 3 (Target INR of 2.5) Note: For patients treated with VKA drugs, such as warfarin, the [employer] 2012 Guideline recommends [...] Chest 2012, 141:7S-47S Goldie RA, et al. [facility] 2017, 70: 252-289 Performed By: #### V ITB6 #### Frequency CLIA [id number] [address] [place] [address] PT Coag (PPP) [Time] 10.8 s Normal 9.7-13.0 [facility] Comment on above: Order Comment: Noe madrid Type: BLOOD SPECIMEN Ordering Facility: [facility] Address: [place] [address] Performed By: #### V ITB6 #### Frequency CLIA [id number] [address] [place] [address] Tacrolimus Bld-mCncon 2022 Tacrolimus (Bld) [Mass/Vol] 8.4 ng/mL Normal 5.0-20.0 [facility] Comment on above: Order Comment: Noe madrid Type: BLOOD SPECIMEN Ordering Facility: [facility] Address: [address] [place] [address] Result Comment: Nannette vidualized target levels for [...] situation. Test performed by chemiluminescent immunoassay using GOGET[employer] / ?.?? Alinity i. Performed By: #### 2 4323-8 #### [facility] CLIA [id number] [address] [facility] [place] [address] [place] ANES POSTPROC EVALon 023 ANES POSTPROC EVAL HNO ID: [id number] Author: Lucas Moseley MD Service: ? Author Type: Anesthesiologist Type: Anesthesia Postprocedure Evaluation Filed: 09/04/2022 11:10 AM Note Text: POST ANESTHESIA EVALUATION NOTE : 1985 Procedure Summary Date: 09/04/22 Room / Location: Gastroenterology Anesthesia Start: 08 Anesthesia Stop: 1017 Procedure: EGD DIAGNOSTIC Diagnosis: (Stent removal) Scheduled Providers: Betina Quezada MD; Lucas Moseley MD; Suzie Knott APRN.SPEEDBOAT OPERATOR Responsible Provider: Lucas Moseley MD Anesthesia Type: [...] September 04, 2022 TIME: 11:10 AM CSN: [id number] Normal [facility] ANES PRE-OPon 09-04-2022 ANES PRE-OP HNO ID: [id number] Author: Lucas Moseley MD Service: ? Author Type: Anesthesiologist Type: Anesthesia Preprocedure Evaluation Filed: 09/04/2022 8:14 AM Note Text: ANESTHESIOLOGY DAY OF SURGERY NOTE : 1985 Procedure Information Date/Time: 09/04/22 1300 Scheduled providers: Betina Quezada MD; Lucas Moseley MD; Suzie Knott APRN.SPEEDBOAT OPERATOR Procedure: EGD DIAGNOSTIC Location: Gastroenterology Estimated body [...] and consent discussed: yes. Patient / Responsible Constitution Party agrees to proceed: yes Patient / [...] administration yosef (more content not included)... Normal [facility] CBC panel Auto (Bld)on 09-04 Erythrocyte distribution width (RBC) [Ratio] 17.1 % High 11.5-15.0 [facility] Comment on above: Order Comment: Speci men Type: BLOOD SPECIMEN Ordering Facility: [facility] Address: [address] [place], [place] [address] Performed By: #### 5 0189-0, 96445-8, 2132-9 #### [facility] CLIA [id number] [address] [facility] [address] [place] Hematocrit (Bld) [Volume fraction] 36.1 % Low 39.0-51.0 [facility] Comment on above: Order Comment: Speci men Type: BLOOD SPECIMEN Ordering Facility: [facility] Address: [address] [place] [address] Performed By: #### 5 0189-0, , 2132-03 #### [facility] CLIA [id number] [address] [place] [address] [place] Hemoglobin (Bld) [Mass/Vol] 12.5 g/dL Low 13.0-17.0 [facility] Comment on above: Order Comment: Speci men Type: BLOOD SPECIMEN Ordering Facility: [facility] Address: [address] [place], [place] [address] Performed By: #### 5 0189-0, , 2132-03 #### [facility] CLIA [id number] [address] [place] [address] [place] MCH (RBC) [Entitic mass] 30.0 pg Normal 26.0-34.0 [facility] Comment on above: Order Comment: Speci men Type: BLOOD SPECIMEN Ordering Facility: [facility] Address: [address] [place] [address] Performed By: #### 5 0189-0, , 2132-03 #### [facility] CLIA [id number] [address] [place] [address] [place] MCHC (RBC) [Mass/Vol] 34.6 g/dL Normal 30.5-36.0 [facility] Comment on above: Order Comment: Speci men Type: BLOOD SPECIMEN Ordering Facility: [facility] Address: [address] [place] [address] Performed By: #### 5 0189-0, , 2132-03 #### [facility] CLIA [id number] [address] [place] [address] [place] MCV (RBC) [Entitic vol] 86.8 fL Normal 80.0-100.0 [facility] Comment on above: Order Comment: Speci men Type: BLOOD SPECIMEN Ordering Facility: [facility] Address: [address] [place] [address] Performed By: #### 5 0189-0, , 2132-03 #### [facility] CLIA [id number] [address] [place] [address] [place] Nucleated RBC (Bld) [#/Vol] 10*3/uL Normal <0.01 [facility] Comment on above: Order Comment: Speci men Type: BLOOD SPECIMEN Ordering Facility: [facility] Address: [address] [place], [place] [address] Performed By: #### 5 0189-0, , 2132-03 #### [facility] CLIA [id number] [address] [place] [address] [place] Platelet mean volume (Bld) [Entitic vol] 11.8 fL Normal 9.0-12.7 [facility] Comment on above: Order Comment: Speci men Type: BLOOD SPECIMEN Ordering Facility: [facility] Address: [address] [place], [place] [address] Performed By: #### 5 0189-0, , 2132-03 #### [facility] CLIA [id number] [address] [place] [address] [place] Platelets (Bld) [#/Vol] 47 10*3/uL Low 150-400 [facility] Comment on above: Order Comment: Speci men Type: BLOOD SPECIMEN Ordering Facility: [facility] Address: [address] [place], [place] [address] Result Comment: Resu lts checked and verified.No clot detected. Performed By: #### 5 0189-0, , 2132-03 #### [facility] CLIA [id number] [address] [place], [place] [id number] [place] RBC (Bld) [#/Vol] 4.16 10*6/uL Low 4.20-6.00 [facility] Comment on above: Order Comment: Speci men Type: BLOOD SPECIMEN Ordering Facility: [facility] Address: [address] [place] [address] Performed By: #### 5 0189-0, 03491-0, 9 #### [facility] CLIA [id number] [address] [place] [address] [place] WBC (Bld) [#/Vol] 3.04 10*3/uL Low 3.70-11.00 [facility] Comment on above: Order Comment: Noe madrid Type: BLOOD SPECIMEN Ordering Facility: [facility] Address: [address] [place] [address] Performed By: #### 5 0189-0, 56258-5, 9 #### [facility] CLIA [id number] [address] [place] [address] OF [facility] CNPNon 09-04-2022 CNPN Telephone (GASTPR) CHUCKIE VILLALTA ([id number]) [address] 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] Order(s):ERCP [GI18] Order #: [id number] FUTURE Prescriptions as of 09/04/2022 - tacrolimus [...] Encounter Status:Closed by BETINA QUEZADA on 09/04/22 [facility] COPPER BLOODon 09-04-2022 Copper [Mass/Vol] 86 ug/dL Normal 70-140 [facility] Comment on above: Order Comment: Speci men Type: BLOOD SPECIMEN Ordering Facility: [facility] Address: [address] [place], [place] Result Comment: This test was developed and its performance characteristics determined by [facility]'s Molly Cindy [facility] Pathology and Laboratory Medicine [place] ([facility]). It has not been cleared or approved by the FDA. -[facility] is regulated under CLIA as qualified to perform high-complexity testing. This test is used for clinical purposes. It should not be regarded as investigational or for research. Performed By: #### 5 763-8, COPPER #### [facility] CLIA [id number] [address] [place] [address] [place] Comprehensive metabolic 2000 panelon 09-04-2022 Albumin [Mass/Vol] 3.7 g/dL Low 3.9-4.9 [facility] Comment on above: Order Comment: Speci men Type: BLOOD SPECIMEN Ordering Facility: [facility] Address: [address] [place], [place] [address] Performed By: #### 2 4323-8 #### [facility] CLIA [id number] [address] [place] [address] [place] ALP [Catalytic activity/Vol] 104 U/L Normal 38-113 [facility] Comment on above: Order Comment: Speci men Type: BLOOD SPECIMEN Ordering Facility: [facility] Address: [address] [place] [phone] Performed By: #### 2 4323-8 #### [facility] CLIA [id number] [facility] [place] [address] [place] ALT [Catalytic activity/Vol] 101 U/L High 10-54 [facility] Comment on above: Order Comment: Speci men Type: BLOOD SPECIMEN Ordering Facility: [facility] Address: [address] Performed By: #### 2 4323-8 #### [facility] CLIA [id number] [address] [place] [address] [place] Anion gap [Moles/Vol] 10 mmol/L Normal 9-18 [facility] Comment on above: Order Comment: Speci men Type: BLOOD SPECIMEN Ordering Facility: [facility] Address: [address] [place] [address] Performed By: #### 2 4323-8 #### [facility] CLIA [id number] [address] [place] [address] [place] AST [Catalytic activity/Vol] 87 U/L High 14-40 [facility] Comment on above: Order Comment: Speci men Type: BLOOD SPECIMEN Ordering Facility: [facility] Address: [address] [place] [address] Performed By: #### 2 4323-8 #### [facility] CLIA [id number] [address] [place] [address] [place] Bilirubin [Mass/Vol] 3.1 mg/dL High 0.2-1.3 [facility] Comment on above: Order Comment: Speci men Type: BLOOD SPECIMEN Ordering Facility: [facility] Address: [address] [place], [place] [address] Performed By: #### 2 4323-8 #### [facility] CLIA [id number] [address] [place] [address] [place] Calcium [Mass/Vol] 9.3 mg/dL Normal 8.5-10.2 [facility] Comment on above: Order Comment: Speci men Type: BLOOD SPECIMEN Ordering Facility: [facility] Address: [address] [place], [place] [address] Performed By: #### 2 4323-8 #### [facility] CLIA [id number] [address] [place] [id number] [place] Chloride [Moles/Vol] 101 mmol/L Normal 97-105 [facility] Comment on above: Order Comment: Speci men Type: BLOOD SPECIMEN Ordering Facility: [facility] Address: [address] [place] [address] Performed By: #### 2 4323-8 #### [facility] CLIA [id number] [address] [place] [address] [place] CO2 [Moles/Vol] 25 mmol/L Normal 22-30 [facility] Comment on above: Order Comment: Speci men Type: BLOOD SPECIMEN Ordering Facility: [facility] Address: [address] [place] [address] Performed By: #### 2 4323-8 #### [facility] CLIA [id number] [address] [place] [address] [place] [facility] Creatinine [Mass/Vol] 1.09 mg/dL Normal 0.73-1.22 [facility] Comment on above: Order Comment: Speci men Type: BLOOD SPECIMEN Ordering Facility: [facility] Address: [address] [place] [address] Performed By: #### 2 4323-8 #### [facility] CLIA [id number] [address] [place] [address] ESTIMATED GLOMERULAR FILTRATION RATE 90 mL/min/1.73m??? Normal >=60 [facility] Comment on above: Order Comment: Speci men Type: BLOOD SPECIMEN Ordering Facility: [facility] Address: [address] [place] [address] Result Comment: Brenda mated Glomerular Filtration Rate [...] By: #### 2 4323-8 #### [facility] CLIA [id number] [address] [place] [address] [place] Glucose [Mass/Vol] 123 mg/dL High 74-99 [facility] Comment on above: Order Comment: Speci men Type: BLOOD SPECIMEN Ordering Facility: [facility] Address: [address] [place] [address] Result Comment: The [place] [employer] (ADA) provides guidance for cutoff [...] Standards of Medical Care in Diabetes 2016, [place] [employer]. Diabetes Care. 2016.39(Suppl 1). Performed By: #### 2 4323-8 #### [facility] CLIA [id number] [facility] [place] [address] [place] Potassium [Moles/Vol] 4.1 mmol/L Normal 3.7-5.1 [facility] Comment on above: Order Comment: Louiei men Type: BLOOD SPECIMEN Ordering Facility: [facility] Address: [address] [place] [address] Performed By: #### 2 4323-8 #### [facility] CLIA [id number] [facility] [place] [address] [place] Protein [Mass/Vol] 6.7 g/dL Normal 6.3-8.0 [facility] Comment on above: Order Comment: Speci men Type: BLOOD SPECIMEN Ordering Facility: [facility] Address: [address] [place] [address] Performed By: #### 2 4323-8 #### [facility] CLIA [id number] [facility] [place] [address] [place] Sodium [Moles/Vol] 136 mmol/L Normal 136-144 [facility] Comment on above: Order Comment: Speci men Type: BLOOD SPECIMEN Ordering Facility: [facility] Address: [address] [place], [place] [address] Performed By: #### 2 4323-8 #### [facility] CLIA [id number] [address] [place] Urea nitrogen [Mass/Vol] 7 mg/dL Low 9-24 [facility] Comment on above: Order Comment: Speci men Type: BLOOD SPECIMEN Ordering Facility: [facility] Address: [address] [place] [address] Performed By: #### 2 4323-8 #### [facility] CLIA [id number] [address] [place] FLUORO ERCP (POC) FOR DDI US E ONLYon 09-04-2022 [facility] NURSING PROGon 09-04-2022 NURSING PROG HNO ID: [id number] Author: Adeline Martínez RN Service: Nursing Author [...] RN In Department: HOSP MAIN G100 Normal [facility] PT panel Coag (PPP)on 2022 INR Coag (PPP) [Relative time] 1.1 {INR} Normal 0.9-1.3 [facility] Comment on above: Order Comment: Speci men Type: BLOOD SPECIMEN Ordering Facility: [facility] Address: [address] [place], [place] [phone] Result Comment: Aster min K Antagonist (VKA) Therapeutic Range: INR 2 to 3 (Target INR of 2.5) Note: For patients treated with VKA drugs, such as warfarin, the [employer] 2012 Guideline recommends [...] Chest 2012, 141:7S-47S Goldie RA, et al. [facility] 2017, 70: 252-289 Performed By: #### 5 763-8, COPPER #### [facility] CLIA [id number] [facility] [place] [address] [place] PT Coag (PPP) [Time] 11.0 s Normal 9.7-13.0 [facility] Comment on above: Order Comment: Noe [place] Type: BLOOD SPECIMEN Ordering Facility: [facility] Address: [address] [id number] Performed By: #### 5 763-8, COPPER #### [facility] CLIA [id number] [address] [place] [address] [place] [facility] Tac[facility]imus (Bld) [Mass/Vol] 10.5 ng/mL Normal 5.0-20.0 [facility] Comment on above: Order Comment: Noe [place] Type: BLOOD SPECIMENOrdering Facility: [facility] Address: [address] [phone] Result Comment: Nannette vidualized target levels for [...] Performed By: #### 1 1253-2 ####[facility]IA [id number] [facility] [id number] STATES OF [facility] VITAMIN B6/PYRIDOXINon 09-04 VITAMIN B6 19.3 nmol/L Low 20.0-125.0 [facility] Comment on above: Order Comment: Speci men Type: BLOOD SPECIMEN Ordering Facility: [facility] Address: [address] [place] [address] Result Comment: INTE RPRETIVE INFORMATION: Vitamin B6 (Pyridoxal 5-Phosphate) Pyridoxal 5'-phosphate measured in a specimen collected following an 8-hour or overnight fast accurately indicates vitamin B6 nutritional status. Non-fasting specimen concentration reflects recent vitamin intake. This test was developed and its performance characteristics determined by [employer]. It has not been cleared or approved by the [place] Food and Drug Administration. This test was performed in a CLIA certified laboratory and is intended for clinical purposes. Performed By: [facility] [address] [place] [address] Credit Collections Specialist: Mic Rangel MD, PhD Performed By: #### V ITB6 #### [id number] [address] [place] [address] Zinc SerPl-mCncon 09-04-2022 Zinc [Mass/Vol] 57 ug/dL Low 60-120 [facility] Comment on above: Order Comment: Speci men Type: BLOOD SPECIMEN Ordering Facility: [facility] Address: [address] [place] [address] Result Comment: This test was developed and its performance characteristics determined by [facility]'s [facility] [place] ([facility]). It has not been cleared or approved by the FDA. -[facility] is regulated under CLIA as qualified to perform high-complexity testing. This test is used for clinical purposes. It should not be regarded as investigational or for research. Performed By: #### 5 763-8, COPPER #### [facility] CLIA [id number] [address] [place] [address] [place] BRIEF OP NOTon 09-03-2022 BRIEF OP NOT HNO ID: [id number] Author: Howard Shepherd MD Service: Radiology Author Type: Physician Type: Brief Op Note Filed: 09/03/2022 2:51 PM Note Text: BRIEF OPERATIVE / PROCEDURE NOTE LOG ID: [id number] SURGERY/PROCEDURE DATE: 08/31/2022 - 09/03/2022 INCISION/PROCEDURE START TIME: 2:34 PM INCISION CLOSE/PROCEDURE END TIME: 2:39 PM SURGEON(S)/PROCEDURALIS T(S) AND SERVICE ASSISTANT(S): Surgeon(s) and Role: * Howard Shepherd MD [...] DATE: September 03, 2022 TIME: 2:50 PM [facility] CASE MANAGEMon 09-03-2022 CASE MANAGEM HNO ID: [id number] Author: JEY Felton Service: ? Author Type: Brake Repairer Type: Care Mgt Progress Note Filed: 09/03/2022 [...] 2022 TIME: 10:03 AM PAGER/CONTACT #: Normal [facility] CBC panel Auto (Bld)on 09-03 Erythrocyte distribution width (RBC) [Ratio] 16.9 % High 11.5-15.0 [facility] Comment on above: Order Comment: Speci men Type: BLOOD SPECIMENOrdering Facility: [facility] Address: [address] [place] [address] Performed By: #### 3 1201-7, 62911-6, IPFR ####[facility] [id number] [place] [address] [place] Hematocrit (Bld) [Volume fraction] 33.9 % Low 39.0-51.0 [facility] Comment on above: Order Comment: Speci men Type: BLOOD SPECIMENOrdering Facility: [facility] Address: [address] [place] [address] Performed By: #### 3 1201-7, 73925-0, IPFR ####[facility]IA [id number] [place] [address] [place] Hemoglobin (Bld) [Mass/Vol] 12.0 g/dL Low 13.0-17.0 [facility] Comment on above: Order Comment: Speci men Type: BLOOD SPECIMENOrdering Facility: [facility] Address: [address] [place] [address] Performed By: #### 3 1201-7, 34613-6, IPFR ####[facility] LABCLIA [id number] [place] [address] [place] MCH (RBC) [Entitic mass] 30.2 pg Normal 26.0-34.0 [facility] Comment on above: Order Comment: Speci men Type: BLOOD SPECIMENOrdering Facility: [facility] Address: [address] [place] [address] Performed By: #### 3 1201-7, 67650-1, IPFR ####[facility]IA [id number] [place] [address] [place] MCHC (RBC) [Mass/Vol] 35.4 g/dL Normal 30.5-36.0 [facility] Comment on above: Order Comment: Speci men Type: BLOOD SPECIMENOrdering Facility: [facility] Address: [address] [place] [address] Performed By: #### 3 1201-7, 47301-1, IPFR ####[facility] LAB[facility]IA [id number] [place] [address] [place] MCV (RBC) [Entitic vol] 85.4 fL Normal 80.0-100.0 [facility] Comment on above: Order Comment: Speci men Type: BLOOD SPECIMENOrdering Facility: [facility] Address: [address] [place] [address] Performed By: #### 3 1201-7, 39120-7, IPFR ####[facility]IA [id number] [place] [address] [place] Nucleated RBC (Bld) [#/Vol] 10*3/uL Normal <0.01 [facility] Comment on above: Order Comment: Speci men Type: BLOOD SPECIMENOrdering Facility: [facility] Address: [address] [place] [address] Performed By: #### 3 1201-7, 38054-4, IPFR ####[facility]IA [id number] [address] [place] Platelet mean volume (Bld) [Entitic vol] 12.1 fL Normal 9.0-12.7 [facility] Comment on above: Order Comment: Speci men Type: BLOOD SPECIMENOrdering Facility: [facility] Address: [address] [place] [address] Performed By: #### 3 1201-7, 39720-4, IPFR ####[facility]IA [id number] [place] [address] [place] Platelets (Bld) [#/Vol] 39 10*3/uL Low 150-400 [facility] Comment on above: Order Comment: Speci men Type: BLOOD SPECIMENOrdering Facility: [facility] Address: [address] [place] [address] Result Comment: No c lot detected. Performed By: #### 3 1201-7, 47421-8, IPFR ####[facility] LABIA [id number] [place] [address] [place] RBC (Bld) [#/Vol] 3.97 10*6/uL Low 4.20-6.00 [facility] Comment on above: Order Comment: Speci men Type: BLOOD SPECIMENOrdering Facility: [facility] Address: [address] [place] [address] Performed By: #### 3 1201-7, 61108-2, IPFR ####[facility] [id number] [place] [address] [place] WBC (Bld) [#/Vol] 2.84 10*3/uL Low 3.70-11.00 [facility] Comment on above: Order Comment: Speci men Type: BLOOD SPECIMENOrdering Facility: [facility] Address: [address] [place] [address] Performed By: #### 3 1201-7, 07825-3, IPFR ####[facility] [id number] [place] [id number] [place] CONSULTon 09-03-2022 CONSULT HNO ID: [id number] Author: Agnes Johnson DO Service: Hematology Author Type: Physician Type: Consults Filed: 09/04/2022 3:29 PM Note Text: PATIENT NAME: Chuckie Villalta [facility] NO.: [id number] DATE OF SERVICE: September 03, 2022 PRIMARY [...] Intake/Output Summary (Last 24 hours) at 09/03/2022 0946 Last data filed at 09/03/2022 0544 Gross [...] DIAGNOSTIC THAI (more content not included)... Normal [facility] Comprehensive metabolic 2000 panelon 09-03-2022 Albumin [Mass/Vol] 3.4 g/dL Low 3.9-4.9 [facility] Comment on above: Order Comment: Speci men Type: BLOOD SPECIMEN Ordering Facility: [facility] Address: [address] Performed By: #### 5 0189-0, , 2132-03 #### [facility] CLIA [id number] [address] [place] [address] [place] ALP [Catalytic activity/Vol] 99 U/L Normal 38-113 [facility] Comment on above: Order Comment: Speci men Type: BLOOD SPECIMEN Ordering Facility: [facility] Address: [address] Performed By: #### 5 0189-0, , 2132-03 #### [facility] CLIA [id number] [address] [place] [address] [place] ALT [Catalytic activity/Vol] 113 U/L High 10-54 [facility] Comment on above: Order Comment: Speci men Type: BLOOD SPECIMEN Ordering Facility: [facility] Address: [address] Performed By: #### 5 0189-0, , 2132-03 #### [facility] CLIA [id number] [address] [place] [address] [place] Anion gap [Moles/Vol] 10 mmol/L Normal 9-18 [facility] Comment on above: Order Comment: Speci men Type: BLOOD SPECIMEN Ordering Facility: [facility] Address: [address] Performed By: #### 5 0189-0, 05739-5, 2132-03 #### [facility] CLIA [id number] [address] [place] [address] [place] AST [Catalytic activity/Vol] 114 U/L High 14-40 [facility] Comment on above: Order Comment: Speci men Type: BLOOD SPECIMEN Ordering Facility: [facility] Address: [address] [place] [address] Performed By: #### 5 0189-0, 52200-9, 2132-03 #### [facility] CLIA [id number] [address] [place] [address] [place] Bilirubin [Mass/Vol] 5.9 mg/dL High 0.2-1.3 [facility] Comment on above: Order Comment: Speci men Type: BLOOD SPECIMEN Ordering Facility: [facility] Address: [address] [place] [address] Performed By: #### 5 0189-0, , 2132-03 #### [facility] CLIA [id number] [address] [place] [address] [place] Calcium [Mass/Vol] 8.6 mg/dL Normal 8.5-10.2 [facility] Comment on above: Order Comment: Speci men Type: BLOOD SPECIMEN Ordering Facility: [facility] Address: [address] [place], [place] Performed By: #### 5 0189-0, , 2132-03 #### [facility] CLIA [id number] [address] [place], [place] [id number] [place] Chloride [Moles/Vol] 103 mmol/L Normal 97-105 [facility] Comment on above: Order Comment: Speci men Type: BLOOD SPECIMEN Ordering Facility: [facility] Address: [address] [place], [place] Performed By: #### 5 0189-0, , 2132-03 #### [facility] CLIA [id number] [address] [place] [address] [place] CO2 [Moles/Vol] 22 mmol/L Normal 22-30 [facility] Comment on above: Order Comment: Speci men Type: BLOOD SPECIMEN Ordering Facility: [facility] Address: [address] [place] [address] Performed By: #### 5 0189-0, , 2132-03 #### [facility] CLIA [id number] [address] [place] [address] [place] Creatinine [Mass/Vol] 1.15 mg/dL Normal 0.73-1.22 [facility] Comment on above: Order Comment: Speci men Type: BLOOD SPECIMEN Ordering Facility: [facility] Address: [address] [place] [address] Performed By: #### 5 0189-0, , 2132-03 #### [facility] CLIA [id number] [address] [place] [address] [place] ESTIMATED GLOMERULAR FILTRATION RATE 85 mL/min/1.73m??? Normal >=60 [facility] Comment on above: Order Comment: Speci men Type: BLOOD SPECIMEN Ordering Facility: [facility] Address: [address] [place] [address] Result Comment: Brenda mated Glomerular Filtration Rate [...] 5 0189-0, , 2132-03 #### [facility] CLIA [id number] [address] [place] [address] [place] Glucose [Mass/Vol] 125 mg/dL High 74-99 [facility] Comment on above: Order Comment: Speci mercy Type: BLOOD SPECIMEN Ordering Facility: [facility] Address: [address] [place], [place] [phone] Result Comment: The [place] [employer] (ADA) provides guidance for cutoff [...] Standards of Medical Care in Diabetes 2016, [place] [employer]. Diabetes Care. 2016.39(Suppl 1). Performed By: #### 5 0189-0, , 2132-03 #### [facility] CLIA [id number] [address] [place] [address] [place] Potassium [Moles/Vol] 3.5 mmol/L Low 3.7-5.1 [facility] Comment on above: Order Comment: Noe [place] Type: BLOOD SPECIMEN Ordering Facility: [facility] Address: [address] [place], [place] [phone] Performed By: #### 5 0189-0, , 2132-03 #### [facility] CLIA [id number] [address] [place] [address] [place] Protein [Mass/Vol] 5.9 g/dL Low 6.3-8.0 [facility] Comment on above: Order Comment: Noe [place] Type: BLOOD SPECIMEN Ordering Facility: [facility] Address: [address] [place], [place] [phone] Performed By: #### 5 0189-0, 21991-3, 2132-03 #### [facility] CLIA [id number] [address] [place] [address] [place] Sodium [Moles/Vol] 135 mmol/L Low 136-144 [facility] Comment on above: Order Comment: Noe [place] Type: BLOOD SPECIMEN Ordering Facility: [facility] Address: [address] [place] [address] Performed By: #### 5 0189-0, 87100-4, 2132-03 #### [facility] CLIA [id number] [address] [place] [address] [place] Urea nitrogen [Mass/Vol] 8 mg/dL Low 9-24 [facility] Comment on above: Order Comment: Noe [place] Type: BLOOD SPECIMEN Ordering Facility: [facility] Address: [address] [place] [address] Performed By: #### 5 0189-0, 40561-5, 2132-03 #### [facility] CLIA [id number] [address] [place] [address] [place] Creatinine Unsp time (U) [Ma ss/Vol]on 09-03-2022 Creatinine (U) [Mass/Vol] 75.6 mg/dL Normal 20.0-300.0 [facility] Comment on above: Order Comment: Noe [place] Type: BLOOD SPECIMEN Ordering Facility: [facility] Address: [address] [place] [address] Performed By: #### 5 763-8, COPPER #### [facility] CLIA [id number] [address] [place] [address] [place] HISTORY PHYSICALon HISTORY PHYSICAL HNO ID: [id number] Author: Howard Shepherd MD Service: Radiology Author [...] September 03, 2022 TIME: 12:52 PM PAGER: [phone] Normal [facility] HIV 1+2 Ab IA Qlon 3 HIV 1 and 2 Ab IA.rapid Nom Normal [facility] Comment on above: Order Comment: Speci men Type: BLOOD SPECIMENOrdering Facility: [facility] Address: [address] [place] [address] Result Comment: Test not indicated. Performed By: #### 3 1201-7, 62554-3, IPFR ####[facility] LAB[facility]IA [id number] [place] [address] [place] HIV 1+2 Ab+HIV1 p24 Ag IA Ql Non-Reactive Normal Nonreactive [facility] Comment on above: Order Comment: Speci men Type: BLOOD SPECIMENOrdering Facility: [facility] Address: [address] [place] [address] Performed By: #### 3 1201-7, 09717-6, IPFR ####[facility] [id number] [place] [address] [place] HIVINT Normal [facility] Comment on above: Order Comment: Speci men Type: BLOOD SPECIMENOrdering Facility: [facility] Address: [address] [place] [address] Result Comment: No e vidence of HIV-1 or HIV-2 infection. Should recent infection be suspected, repeat testing may be considered 2-3 weeks after this draw. [place] Rev. Code 3701.243(E): This information has been [...] or diagnoses. Performed By: #### 3 1201-7, 78695-6, IPFR ####[facility] [id number] [place] [address] [place] IMMATURE PLATELET FRACTIONon 09-03-2022 Platelets reticulated/100 platelets Auto (Bld) 11.9 % High 0.9-7.2 [facility] Comment on above: Order Comment: Speci men Type: BLOOD SPECIMENOrdering Facility: [facility] Address: [address] [place] [address] Performed By: #### 3 1201-7, 87707-2, IPFR ####[facility] [id number] [place] [address] [place] bilirubin panel [Ma ss/Vol]on 09-03-2022 Bilirubin [Mass/Vol] 5.7 mg/dL High 0.2-1.3 [facility] Comment on above: Order Comment: Speci men Type: BLOOD SPECIMEN Ordering Facility: [facility] Address: [address] [place] [address] Performed By: #### 5 0189-0, 96841-6, 2132-03 #### [facility] CLIA [id number] [address] [place] [address] [place] Bilirubin.conjugated [Mass/Vol] 4.2 mg/dL High <0.2 [facility] Comment on above: Order Comment: Speci men Type: BLOOD SPECIMEN Ordering Facility: [facility] Address: [address] [place], [place] [phone] Performed By: #### 5 0189-0, , 2132-03 #### [facility] CLIA [id number] [address] [place] [address] [place] Bilirubin.indirect [Mass/Vol] 1.5 mg/dL High <1.4 [facility] Comment on above: Order Comment: Speci men Type: BLOOD SPECIMEN Ordering Facility: [facility] Address: [address] [place] [address] Performed By: #### 5 0189-0, , 2132-03 #### [facility] CLIA [id number] [address] [place] [address] [place] PT EDon 09-03-2022 PT ED HNO ID: [id number] Author: Kia Lyon RN Service: Nursing Author [...] RN In Department: HOSP MAIN G100 Normal [facility] Platelets Auto (Bld) [#/Vol] on 09-03-2022 Platelets (Bld) [#/Vol] 38 10*3/uL Low 150-400 [facility] Comment on above: Order Comment: Speci men Type: BLOOD SPECIMEN Ordering Facility: [facility] Address: [address] [place] [phone] Result Comment: No c lot detected. Performed By: #### 5 763-8, COPPER #### [facility] CLIA [id number] [address] [facility] [id number] SURGICAL PATHOLOGYon 023 ADDENDUM 1: Normal [facility] Comment on above: Order Comment: Speci men Type: TISSUE SPECIMENOrdering Facility: [facility] Address: [address] [place] [address] Result Comment: This addendum is issued to [...] been determined by the performing laboratory within [facility]???s [facility] [place] ([facility], [place], [facility], [facility], [facility], [facility], or [facility]) in a manner consistent with CLIA requirements. [...] PM Performed By: #### S ####[facility] LAB[facility]IA [id number] [address] CASE REPORT Normal [facility] Comment on above: Order Comment: Noe [place] Type: TISSUE SPECIMENOrdering Facility: [facility] Address: [address] [place] [address] Result Comment: Surg ica Pathology Report Case: [id number] Authorizing Provider: Howard Shepherd MD Collected: 09/03/2022 02:35 PM Ordering Location: [place] [address] Received: 09/03/2022 03:04 PM Pathologist: August Oh MD Specimen: LIVER TRANSPLANT BIOPSY Performed By: #### S ####[facility] [id number] [address] CLINICAL HISTORY s/p liver transplant , elevated LFT's, history of rejection. Normal [facility] Comment on above: Order Comment: [place] Type: TISSUE SPECIMENOrdering Facility: [facility] Address: [address] [place] [address] Performed By: #### S ####[facility] [id number] [address] DIAGNOSIS COMMENT Normal [facility] Comment on above: Order Comment: [place]e [place] Type: TISSUE SPECIMENOrdering Facility: [facility] Address: [address] [place] [address] Result Comment: The trichrome stain confirms the [...] been determined by the performing laboratory within [facility]???s [facility] Pathology [facility] [place] ([facility], [place], [facility], [facility], [facility], [facility], or [facility]) in a manner consistent with CLIA requirements. One or more of these tests have not been cleared or approved by the FDA. [facility] is regulated under CLIA as qualified to perform high-complexity testing. These tests are used for clinical purposes. They should not be regarded as investigational or for research. Positive and negative controls stain appropriately. Performed By: #### S ####[facility] [id number] [address] FINAL DIAGNOSIS Normal [facility] Comment on above: Order Comment: Speci men Type: TISSUE SPECIMENOrdering Facility: [facility] Address: [address] [place] [address] Result Comment: Live r allograft, approximately 4 years 2 months post-transplantation, biopsy: - Liver parenchyma with reactive/regenerative change and focal portal change, indeterminate for T-cell mediated rejection (acute cellular rejection). Performed By: #### S ####[facility] [id number] [address] FINAL PERFORMING LAB Normal [facility] Comment on above: Order Comment: Speci men Type: TISSUE SPECIMENOrdering Facility: [facility] Address: [address] [place] [address] Result Comment: Diag nostic interpretation performed at [facility], [address] [place] [address] CLIA# [id number] Credit Collections Specialist: Jony Gallegos M.D. Performed By: #### S ####[facility] LAB[facility] [id number] [place] [address] [place] GROSS DESCRIPTION Normal [facility] Comment on above: Order Comment: Speci men Type: TISSUE SPECIMENOrdering Facility: [facility] Address: [address] [place] [address] Result Comment: A. L IVER TRANSPLANT BIOPSY Received in formalin is one segment of cylindrical tissue measuring 1.7 x 0.1 x 0.1 cm, montanez-orange and of a soft and friable consistency. Totally submitted in one cassette. September 03, 2022 5:19 PM Gross examination performed at [facility], [address] [place] [address] Performed By: #### S ####[facility] [id number] [place] [address] [place] Sodium ?Tm Ur-sCncon 023 Sodium Unsp time (U) [Moles/Vol] 82 mmol/L Normal 14-216 [facility] Comment on above: Order Comment: Speci men Type: BLOOD SPECIMEN Ordering Facility: [facility] Address: [address] [place] [address] Performed By: #### 5 763-8, COPPER #### [facility] CLIA [id number] [address] [place] [address] [place] TOX SCREEN ROUT URon 023 Amphetamines Confirm (U) [Mass/Vol] Negative Normal Negative [facility] Comment on above: Order Comment: Speci men Type: BLOOD SPECIMEN Ordering Facility: [facility] Address: [address] [place] [address] Result Comment: Cuto ff threshold at 1000 ng/mL. Performed By: #### 5 763-8, COPPER #### [facility] CLIA [id number] [address] [place] [address] [place] BARBITURATES, URINE Negative Normal Negative [facility] Comment on above: Order Comment: Speci men Type: BLOOD SPECIMEN Ordering Facility: [facility] Address: [address] [address] Result Comment: Cuto ff threshold at 200 ng/mL. Performed By: #### 5 763-8, COPPER #### [facility] CLIA [id number] [address] [place] [address] [place] BENZODIAZEPINES, UR Negative Normal Negative [facility] Comment on above: Order Comment: Speci men Type: BLOOD SPECIMEN Ordering Facility: [facility] Address: [address] [address] Result Comment: Cuto ff threshold at 200 ng/mL. Performed By: #### 5 763-8, COPPER #### [facility] CLIA [id number] [facility] [place] [address] [place] CANNABINOIDS,URINE Negative Normal Negative [facility] Comment on above: Order Comment: Speci men Type: BLOOD SPECIMEN Ordering Facility: [facility] Address: [address] [place] [address] Result Comment: Cuto ff threshold at 50 ng/mL. Performed By: #### 5 763-8, COPPER #### [facility] CLIA [id number] [address] [place] [address] [place] Cocaine Ql (U) Negative Normal Negative [facility] Comment on above: Order Comment: Speci men Type: BLOOD SPECIMEN Ordering Facility: [facility] Address: [address] [address] Result Comment: Cuto ff threshold at 300 ng/mL. Performed By: #### 5 763-8, COPPER #### [facility] CLIA [id number] [address] [place] [address] [place] Ethanol (U) [Mass/Vol] <11 Normal <11 [facility] Comment on above: Order Comment: Speci men Type: BLOOD SPECIMEN Ordering Facility: [facility] Address: [address] Performed By: #### 5 763-8, COPPER #### [facility] CLIA [id number] [address] [place] [address] [place] Opiates Screen Ql (U) Positive Abnormal Negative [facility] Comment on above: Order Comment: Speci men Type: BLOOD SPECIMEN Ordering Facility: [facility] Address: [address] [address] Result Comment: Cuto ff threshold at 300 ng/mL. Performed By: #### 5 763-8, COPPER #### [facility] CLIA [id number] [address] [place] [address] [place] oxyCODONE cutoff Screen (U) [Mass/Vol] Negative Normal Negative [facility] Comment on above: Order Comment: Speci men Type: BLOOD SPECIMEN Ordering Facility: [facility] Address: [address] [place] [address] Result Comment: Cuto ff threshold at 100 ng/mL. Performed By: #### 5 763-8, COPPER #### [facility] CLIA [id number] [address] [place] [address] [place] Phencyclidine Ql (U) Negative Normal Negative [facility] Comment on above: Order Comment: Speci men Type: BLOOD SPECIMEN Ordering Facility: [facility] Address: [address] [place] [address] Result Comment: Cuto ff threshold at 25 ng/mL. Performed By: #### 5 763-8, COPPER #### [facility] CLIA [id number] [address] [place] [address] [place] TYPE + SCREENon 09-03-2022 ABO A Normal [facility] Comment on above: Order Comment: Speci men Type: BLOOD SPECIMENOrdering Facility: [facility] Address: [address] [address] Performed By: #### T SCR ####[facility]ANK[id number] HISTORICAL AB SCR STATUS Positive Abnormal [facility] Comment on above: Order Comment: Speci men Type: BLOOD SPECIMENOrdering Facility: [facility] Address: [address] [address] Performed By: #### T SCR ####[facility] BANKCLIA [id number] [address] Rh Nom (Bld) Negative Normal [facility] Comment on above: Order Comment: Speci men Type: BLOOD SPECIMENOrdering Facility: [facility] Address: [address] [place] [address] Performed By: #### T SCR ####[facility]LO[facility] BANKCLIA [id number] [address] TYPE AND SCREEN EXPIRATION 09/06/2022 23:59 Normal [facility] Comment on above: Order Comment: Speci men Type: BLOOD SPECIMENOrdering Facility: [facility] Address: [address] [place] [address] Performed By: #### T SCR ####[facility] BLOOD BANKCLIA [id number] [address] Tacrolimus Bld-mCncon 2022 Tacrolimus (Bld) [Mass/Vol] 9.2 ng/mL Normal 5.0-20.0 [facility] Comment on above: Order Comment: Speci men Type: BLOOD SPECIMEN Ordering Facility: [facility] Address: [address] [place] [address] Result Comment: Thes e reference ranges are [...] Test performed by chemiluminescent immunoassay using Schuler Microfilm Machine Operator. Performed By: #### 5 0189-0, 83486-1, 2132-9 #### [facility] CLIA [id number] [address] [place] [address] [place] US BIOPSY LIVERon 09-03-2022 US BIOPSY LIVER * * *Final Report* * * DATE OF EXAM: Sep 03 2022 4:01PM [facility] 1073 - US BIOPSY LIVER / PROCEDURE [...] history of rejection. STAFF RADIOLOGIST: Dr. Shepherd SERVICE ASSISTANT(S): None CONSENT: The risks, benefits, treatment options, [...] by the: attending radiologist, without an assistant field hockey coach. The attending radiologist performed the following [...] ULTRASOUND GUIDED RANDOM LIVER TRANSPLANT BIOPSY DESCRIBED Dental Instrument Maker: GUILLE Transcribe Date/Time: Sep 03 2022 5:36P Dictated by : HWOARD SHEPHERD MD This examination was interpreted and the report reviewed and electronically signed by: HOWARD SHEPHERD MD on Sep 03 2022 5:38PM EST [id number] Normal [facility] Urinalysis complete panel (U )on 09-03-2022 Bilirubin Ql (U) 1+ Abnormal Negative [facility] Comment on above: Order Comment: Speci men Type: BLOOD SPECIMEN Ordering Facility: [facility] Address: [address] [place] [address] Result Comment: Sugg est correlation with clinical findings and serum bilirubin if clinically indicated. Performed By: #### 2 4323-8 #### [facility] CLIA [id number] [facility] [place] [address] [place] Clarity (Unsp spec) Clear Normal Clear [facility] Comment on above: Order Comment: Speci men Type: BLOOD SPECIMEN Ordering Facility: [facility] Address: [address] [place] [address] Performed By: #### 2 4323-8 #### [facility] CLIA [id number] [facility] [place] [address] [place] Color (U) Yellow Normal Yellow [facility] Comment on above: Order Comment: Speci men Type: BLOOD SPECIMEN Ordering Facility: [facility] Address: [address] [place] [address] Performed By: #### 2 4323-8 #### [facility] CLIA [id number] [address] [place] [address] [place] Glucose Test strip (U) [Mass/Vol] Negative Normal Trace, Negative [facility] Comment on above: Order Comment: Speci men Type: BLOOD SPECIMEN Ordering Facility: [facility] Address: [address] Performed By: #### 2 4323-8 #### [facility] CLIA [id number] [address] [facility] [place] [address] [place] Hemoglobin Ql (U) Negative Normal Negative, Trace [facility] Comment on above: Order Comment: Speci men Type: BLOOD SPECIMEN Ordering Facility: [facility] Address: [address] [address] Performed By: #### 2 4323-8 #### [facility] CLIA [id number] [address] [place] [address] [place] Ketones Ql (U) 1+ Abnormal Trace, Negative [facility] Comment on above: Order Comment: Speci men Type: BLOOD SPECIMEN Ordering Facility: [facility] Address: [address] Performed By: #### 2 4323-8 #### [facility] CLIA [id number] [address] [place] [address] [place] Leukocyte esterase Test strip Ql (U) Negative Normal Negative, 25 Daniel/uL [facility] Comment on above: Order Comment: Speci men Type: BLOOD SPECIMEN Ordering Facility: [facility] Address: [address] Performed By: #### 2 4323-8 #### [facility] CLIA [id number] [address] [place] [address] [place] Nitrite Ql (U) Negative Normal Negative [facility] Comment on above: Order Comment: Speci men Type: BLOOD SPECIMEN Ordering Facility: [facility] Address: [address] Performed By: #### 2 4323-8 #### [facility] CLIA [id number] [address] [place] [address] [place] pH (U) 6.0 [pH] Normal 5.0-8.0 [facility] Comment on above: Order Comment: Speci men Type: BLOOD SPECIMEN Ordering Facility: [facility] Address: [address] [place] [address] Performed By: #### 2 4323-8 #### [facility] CLIA [id number] [address] [place] [address] [place] Protein (U) [Mass/Vol] Trace Normal Trace , Negative [facility] Comment on above: Order Comment: Speci men Type: BLOOD SPECIMEN Ordering Facility: [facility] Address: [address] [place] [address] Performed By: #### 2 4323-8 #### [facility] CLIA [id number] [facility] [place] [address] [place] RBC LM.HPF (Urine sed) [#/Area] 0-3 /HPF Normal 0-3 /HPF [facility] Comment on above: Order Comment: Speci men Type: BLOOD SPECIMEN Ordering Facility: [facility] Address: [address] [place] [address] Performed By: #### 2 4323-8 #### [facility] CLIA [id number] [address] [place] [address] [place] Specific gravity (U) [Rel density] 1.009 Normal 1.005-1.030 [facility] Comment on above: Order Comment: Speci men Type: BLOOD SPECIMEN Ordering Facility: [facility] Address: [address] [place], [place] [address] Performed By: #### 2 4323-8 #### [facility] CLIA [id number] [address] [place] [address] [place] Urobilinogen Ql (U) 1+ Abnormal Negative [facility] Comment on above: Order Comment: Speci men Type: BLOOD SPECIMEN Ordering Facility: [facility] Address: [address] [place] [address] Performed By: #### 2 4323-8 #### [facility] CLIA [id number] [address] [place] [address] [place] WBC LM.HPF (Urine sed) [#/Area] 0-5 /HPF Normal 0-5 /HPF [facility] Comment on above: Order Comment: Speci men Type: BLOOD SPECIMEN Ordering Facility: [facility] Address: [address] [place] [address] Performed By: #### 2 4323-8 #### [facility] CLIA [id number] [address] [place] [address] [place] Vit B12 SerPl-mCncon 023 Cobalamin (Vitamin B12) [Mass/Vol] 802 pg/mL Normal 232-1245 [facility] Comment on above: Order Comment: Speci men Type: BLOOD SPECIMEN Ordering Facility: [facility] Address: [address] [place] [address] Performed By: #### 5 0189-0, 73834-0, 2132-9 #### [facility] CLIA [id number] [address] [place] [address] [place] ALPHA-1 ANTITRYPSIN GENOon 0 09-02-2022 HA1AT REVIEWED BY Rad[facility] Comment on above: Order Comment: Speci men Type: BLOOD SPECIMENOrdering Facility: [facility] Address: [address] [place] [address] Result Comment: Alph a-1 Antitrypsin Genotyping Laboratory Accession Number: [id number] Result: No Variant Detected in SERPINA1 (PI*MM) [...] two most common pathogenic variants: S (c.863A>T, p.Rod455Jxc, g.77551699), Z (c.1096G>A, p.Ble860Ecm, g.75965825), and the rarer variants: F (c.739C>T, p.Qqh835Opo, g.95812210), I (c.187C>T, p.Nkv62Upe, g.53472005). Limitations: This Laboratory Developed Test (LDT) is [...] developed and its performance characteristics determined by [facility]'s [facility] [place] ([facility]). It has not been cleared or approved by the FDA. [facility] is regulated under CLIA as certified to perform high- complexity testing. This test is used for clinical purposes. It should not be regarded as investigational or for research. Testing and interpretation performed at [facility], [address] [place], [place] [address]. CLIA Number: [id number] References: 1) Kun SANTANA, Manjit G, Radha [...] SJ, Agapito AF. Molecular characterisation of three jfsqb-8-nuzrdsefmsl deficiency variants: proteinase inhibitor (Pi) nullcardiff (Ygf250----Tlw); PiMmalton (Ffv58----krnpalzz) and PiI (Tbk54----Dgn). Hum Vonnie. 1989 Jun;84(1):55-8. 4) Reg STILL and Kun SANTANA. Clinical practice. Alpha1-antitrypsin deficiency. N Engl J Med. 2008Jan 18;360(17)3886-48. 5) Kimi NJ, Jovan F, Lindy SANTANA. The significance of the F variant of rttuw-8-ymefttjjrzd and unique case report of a PiFF homozygote. [facility]m Med. 2014 Mar 02;14:132. 6) Luz Maria THOMPSON, Michelle FARIAS, and Dharmesh Rosado. Alpha-1 Antitrypsin Deficiency. 2005May 22 [Updated 2017 August 14]. In: Moises RA, Zacarias MP, Kwan TO, et al., editors. GeneReviews [Internet]. [place] ([place]): [facility], [place]; 7399-8331. Available from: http://www.ncbi.nlm.nih.gov/books/LMB4810/ As reviewed by Isabel Breaux, PhD, [facility] Performed By: #### H A1AT ####CLARITY AIDEE JAIN [id number] [address] LENNY BY IFA WITH REFLEXon Nuclear Ab IF (S) [Titer] Negative Normal Negative [facility] Comment on above: Order Comment: Speci men Type: BLOOD SPECIMEN Ordering Facility: [facility] Address: [address] [address] Result Comment: Anti -nuclear antibody test is used as an aid in diagnosis of systemic autoimmune diseases. Where positive and clinically warranted, follow-up using disease-specific testing is recommended. Low positive titers are not uncommon with advanced age, certain chronic infections, and malignancies among others. Test methodology: Indirect fluorescence immunoassay (IFA) using HEp-2 cells. Performed By: #### 5 763-8, COPPER #### [facility] CLIA [id number] [address] [place] [address] [place] CBC W Ordered Manual Differe ntial panel (Bld)on 09-02-2022 Basophils (Bld) [#/Vol] 10*3/uL Normal <0.11 [facility] Comment on above: Order Comment: Speci men Type: BLOOD SPECIMENOrdering Facility: [facility] Address: [address] [address] Performed By: #### S TFREV, 17144-2, [id number] ####[facility]IA [id number] [address] STATES [facility] Basophils/100 WBC (Bld) 0.2 % Normal [facility] Comment on above: Order Comment: Speci men Type: BLOOD SPECIMENOrdering Facility: [facility] Address: [address] [address] Performed By: #### S TFREV, 01928-3, [id number] ####[facility] [id number] [place] [address] [place] Differential cell count method Nom (Bld) Auto Normal [facility] Comment on above: Order Comment: Speci men Type: BLOOD SPECIMENOrdering Facility: [facility] Address: [address] [place] [address] Performed By: #### S TFREV, 23135-4, [id number] ####[facility] [id number] [place] [address] [place] Eosinophils (Bld) [#/Vol] 0.05 10*3/uL Normal <0.46 [facility] Comment on above: Order Comment: Speci men Type: BLOOD SPECIMENOrdering Facility: [facility] Address: [address] [place] [address] Performed By: #### S TFREV, 13193-5, [id number] ####[facility] LABCLIA [id number] [place] [address] [place] Eosinophils/100 WBC (Bld) 1.2 % Normal [facility] Comment on above: Order Comment: Speci men Type: BLOOD SPECIMENOrdering Facility: [facility] Address: [address] [place] [address] Performed By: #### S TFREV, 44055-6, [id number] ####[facility]CLIA [id number] [address] [place] Erythrocyte distribution width (RBC) [Ratio] 16.9 % High 11.5-15.0 [facility] Comment on above: Order Comment: Speci men Type: BLOOD SPECIMENOrdering Facility: [facility] Address: [address] [place] [address] Performed By: #### S TFREV, 83999-2, [id number] ####[facility] [id number] [address] [place] Hematocrit (Bld) [Volume fraction] 36.7 % Low 39.0-51.0 [facility] Comment on above: Order Comment: Speci men Type: BLOOD SPECIMENOrdering Facility: [facility] Address: [address] [place] [address] Performed By: #### S TFREV, 25815-8, [id number] ####[facility] [id number] [place] [address] [place] Hemoglobin (Bld) [Mass/Vol] 12.9 g/dL Low 13.0-17.0 [facility] Comment on above: Order Comment: Speci men Type: BLOOD SPECIMENOrdering Facility: [facility] Address: [address] [place] [address] Performed By: #### S TFREV, 63984-8, [id number] ####[facility]IA [id number] [place] [address] [place] Immature granulocytes (Bld) [#/Vol] 0.05 10*3/uL Normal <0.10 [facility] Comment on above: Order Comment: Speci men Type: BLOOD SPECIMENOrdering Facility: [facility] Address: [address] [place] [address] Performed By: #### S TFREV, 37525-3, [id number] ####[facility]IA [id number] [address] [place] Immature granulocytes/100 WBC (Bld) 1.2 % Normal [facility] Comment on above: Order Comment: Speci men Type: BLOOD SPECIMENOrdering Facility: [facility] Address: [address] [place] [address] Performed By: #### S TFREV, 06026-3, [id number] ####[facility] LABCLIA [id number] [place] [address] [place] Lymphocytes (Bld) [#/Vol] 0.31 10*3/uL Low 1.00-4.00 [facility] Comment on above: Order Comment: Speci men Type: BLOOD SPECIMENOrdering Facility: [facility] Address: [address] [place] [address] Performed By: #### S TFRROSA, 61324-1, [id number] ####[facility]IA [id number] [address] STATES OF [facility] Lymphocytes/100 WBC (Bld) 7.4 % Normal [facility] Comment on above: Order Comment: Speci men Type: BLOOD SPECIMENOrdering Facility: [facility] Address: [address] [place] [address] Performed By: #### S TFRROSA, 79384-9, [id number] ####[facility]CLIA [id number] [address] STATES OF [facility] MCH (RBC) [Entitic mass] 30.0 pg Normal 26.0-34.0 [facility] Comment on above: Order Comment: Speci men Type: BLOOD SPECIMENOrdering Facility: [facility] Address: [address] [place] [address] Performed By: #### S TFRROSA, 52159-8, [id number] ####[facility]CLIA [id number] [address] STATES OF [facility] MCHC (RBC) [Mass/Vol] 35.1 g/dL Normal 30.5-36.0 [facility] Comment on above: Order Comment: Speci men Type: BLOOD SPECIMENOrdering Facility: [facility] Address: [address] [place], [place] [address] Performed By: #### S TFREV, 87808-3, [id number] ####[facility]CLIA [id number] [place] [address] [place] MCV (RBC) [Entitic vol] 85.3 fL Normal 80.0-100.0 [facility] Comment on above: Order Comment: Speci men Type: BLOOD SPECIMENOrdering Facility: [facility] Address: [address] Performed By: #### S TFREV, 26915-1, [id number] ####[facility]CLIA [id number] [place] [address] [place] Monocytes (Bld) [#/Vol] 0.33 10*3/uL Normal <0.87 [facility] Comment on above: Order Comment: Speci men Type: BLOOD SPECIMENOrdering Facility: [facility] Address: [address] [address] Performed By: #### S TFREV, 10470-9, [id number] ####[facility]CLIA [id number] [place] [address] [place] Monocytes/100 WBC (Bld) 7.9 % Normal [facility] Comment on above: Order Comment: Speci men Type: BLOOD SPECIMENOrdering Facility: [facility] Address: [address] Performed By: #### S TFRROSA, 60546-9, [id number] ####[facility] LABCLIA [id number] [place] [address] [place] Neutrophils (Bld) [#/Vol] 3.42 10*3/uL Normal 1.45-7.50 [facility] Comment on above: Order Comment: Speci men Type: BLOOD SPECIMENOrdering Facility: [facility] Address: [address] Performed By: #### S TFREV, 51940-5, [id number] ####[facility] LABCLIA [id number] [place] [address] [place] Neutrophils/100 WBC (Bld) 82.1 % Normal [facility] Comment on above: Order Comment: Speci men Type: BLOOD SPECIMENOrdering Facility: [facility] Address: [address] [place] [address] Performed By: #### S TFRROSA, 65082-8, [id number] ####[facility]CLIA [id number] [place] [address] [place] Nucleated RBC (Bld) [#/Vol] 10*3/uL Normal <0.01 [facility] Comment on above: Order Comment: Speci men Type: BLOOD SPECIMENOrdering Facility: [facility] Address: [address] [place] [address] Performed By: #### S TFRROSA, 67002-5, [id number] ####[facility] LABCLIA [id number] [place] [address] [place] Nucleated RBC/100 WBC (Bld) [Ratio] 0.0 /100 WBC Normal [facility] Comment on above: Order Comment: Speci men Type: BLOOD SPECIMENOrdering Facility: [facility] Address: [address] [place] [address] Performed By: #### S CECIL, 46352-6, [id number] ####[facility] LABCLIA [id number] [place] [address] [place] Platelet mean volume (Bld) [Entitic vol] 12.1 fL Normal 9.0-12.7 [facility] Comment on above: Order Comment: Speci men Type: BLOOD SPECIMENOrdering Facility: [facility] Address: [address] [place] [address] Performed By: #### S TFRROSA, 10392-0, [id number] ####[facility] LABCLIA [id number] [place] [address] [place] Platelets (Bld) [#/Vol] 38 10*3/uL Low 150-400 [facility] Comment on above: Order Comment: Speci men Type: BLOOD SPECIMENOrdering Facility: [facility] Address: [address] [address] Result Comment: No c lot detected. Performed By: #### S TFRROSA, 58048-8, [id number] ####[facility] LABCLIA [id number] [address] [place] RBC (Bld) [#/Vol] 4.30 10*6/uL Normal 4.20-6.00 [facility] Comment on above: Order Comment: Speci men Type: BLOOD SPECIMENOrdering Facility: [facility] Address: [address] [address] Performed By: #### S CECIL, 49720-5, [id number] ####[facility] LABCLIA [id number] [address] [place] WBC (Bld) [#/Vol] 4.17 10*3/uL Normal 3.70-11.00 [facility] Comment on above: Order Comment: Speci men Type: BLOOD SPECIMENOrdering Facility: [facility] Address: [address] [place] [address] Performed By: #### S TFRROSA, 67050-2, [id number] ####[facility] LABCLIA [id number] [address] [place] CBC panel Auto (Bld)on 09-02 Erythrocyte distribution width (RBC) [Ratio] 16.5 % High 11.5-15.0 [facility] Comment on above: Order Comment: Speci men Type: BLOOD SPECIMENOrdering Facility: [facility] Address: [address] [place] [address] Performed By: #### 5 8410-2, 91688-5 ####[facility] LABCLIA [id number] [address] [place] Hematocrit (Bld) [Volume fraction] 35.5 % Low 39.0-51.0 [facility] Comment on above: Order Comment: Speci men Type: BLOOD SPECIMENOrdering Facility: [facility] Address: [address] [place] [address] Performed By: #### 5 8410-2, 20262-8 ####[facility] LABCLIA [id number] [place] [address] [place] Hemoglobin (Bld) [Mass/Vol] 12.6 g/dL Low 13.0-17.0 [facility] Comment on above: Order Comment: Speci men Type: BLOOD SPECIMENOrdering Facility: [facility] Address: [address] [place] [address] Performed By: #### 5 8410-2, 01925-1 ####[facility] LABCLIA [id number] [address] [place] MCH (RBC) [Entitic mass] 29.9 pg Normal 26.0-34.0 [facility] Comment on above: Order Comment: Speci men Type: BLOOD SPECIMENOrdering Facility: [facility] Address: [address] [place] [address] Performed By: #### 5 8410-2, 50063-3 ####[facility] LABIA [id number] [address] [place] MCHC (RBC) [Mass/Vol] 35.5 g/dL Normal 30.5-36.0 [facility] Comment on above: Order Comment: Speci men Type: BLOOD SPECIMENOrdering Facility: [facility] Address: [address] [place], [place] [address] Performed By: #### 5 8410-2, 25409-9 ####[facility] LABIA [id number] [address] [place] MCV (RBC) [Entitic vol] 84.1 fL Normal 80.0-100.0 [facility] Comment on above: Order Comment: Speci men Type: BLOOD SPECIMENOrdering Facility: [facility] Address: [address] [place] [address] Performed By: #### 5 8410-2, 68066-4 ####[facility] LABIA [id number] [place] [address] [place] Nucleated RBC (Bld) [#/Vol] 10*3/uL Normal <0.01 [facility] Comment on above: Order Comment: Speci men Type: BLOOD SPECIMENOrdering Facility: [facility] Address: [address] [place] [address] Performed By: #### 5 8410-2, 07783-8 ####[facility] [id number] [place] [address] [place] Platelet mean volume (Bld) [Entitic vol] 11.7 fL Normal 9.0-12.7 [facility] Comment on above: Order Comment: Speci men Type: BLOOD SPECIMENOrdering Facility: [facility] Address: [address] [place] [address] Performed By: #### 5 8410-2, 25941-2 ####[facility] [id number] [place] [address] [place] Platelets (Bld) [#/Vol] 40 10*3/uL Low 150-400 [facility] Comment on above: Order Comment: Speci men Type: BLOOD SPECIMENOrdering Facility: [facility] Address: [address] [place] [address] Result Comment: Resu lts checked and verified.No clot detected. Performed By: #### 5 8410-2, 98011-0 ####[facility] LABIA [id number] [place] [address] [place] RBC (Bld) [#/Vol] 4.22 10*6/uL Normal 4.20-6.00 [facility] Comment on above: Order Comment: Speci men Type: BLOOD SPECIMENOrdering Facility: [facility] Address: [address] [address] Performed By: #### 5 8410-2, 85031-8 ####[facility] LABCLIA [id number] [place] [address] [place] WBC (Bld) [#/Vol] 4.69 10*3/uL Normal 3.70-11.00 [facility] Comment on above: Order Comment: Speci men Type: BLOOD SPECIMENOrdering Facility: [facility] Address: [address] [address] Performed By: #### 5 8410-2, 03230-2 ####[facility] LABCLIA [id number] [place] [address] [place] CMV DNA DETECTION AND QUANTo n 09-02-2022 CMV DNA NOLBERTO+probe Qn (P) Not detected Normal Not Detected [facility] Comment on above: Order Comment: Speci men Type: BLOOD SPECIMENOrdering Facility: [facility] Address: [address] [address] Performed By: #### C MVQNT ####[facility] LABCLIA [id number] [place] [address] [place] Ceruloplasmin SerPl-mCncon 0 09-02-2022 Ceruloplasmin [Mass/Vol] 17 mg/dL Normal 15-30 [facility] Comment on above: Order Comment: Speci men Type: BLOOD SPECIMEN [facility] Address: [address] [address] Performed By: #### V ITB6 #### [facility] CLIA [id number] [address] [place] [address] Comprehensive metabolic 2000 panelon 09-02-2022 Albumin [Mass/Vol] 3.7 g/dL Low 3.9-4.9 [facility] Comment on above: Order Comment: Speci men Type: BLOOD SPECIMEN [facility] Address: [address] Performed By: #### 5 763-8, COPPER #### [facility] CLIA [id number] [address] [place] [address] [place] ALP [Catalytic activity/Vol] 98 U/L Normal 38-113 [facility] Comment on above: Order Comment: Speci men Type: BLOOD SPECIMEN [facility] Address: [address] Performed By: #### 5 763-8, COPPER #### [facility] CLIA [id number] [address] [place] [address] [place] ALT [Catalytic activity/Vol] 175 U/L High 10-54 [facility] Comment on above: Order Comment: Speci men Type: BLOOD SPECIMEN [facility] Address: [address] Performed By: #### 5 763-8, COPPER #### [facility] CLIA [id number] [address] [place] [address] [place] Anion gap [Moles/Vol] 13 mmol/L Normal 9-18 [facility] Comment on above: Order Comment: Speci men Type: BLOOD SPECIMEN [facility] Address: [address] Performed By: #### 5 763-8, COPPER #### [facility] CLIA [id number] [address] [place] [address] [place] AST [Catalytic activity/Vol] 318 U/L High 14-40 [facility] Comment on above: Order Comment: Speci men Type: BLOOD SPECIMEN [facility] Address: [address] [place] [address] Performed By: #### 5 763-8, COPPER #### [facility] CLIA [id number] [address] [place] [address] [place] Bilirubin [Mass/Vol] 10.9 mg/dL High 0.2-1.3 [facility] Comment on above: Order Comment: Speci men Type: BLOOD SPECIMEN [facility] Address: [address] Performed By: #### 5 763-8, COPPER #### [facility] CLIA [id number] [address] [place] [address] [place] Calcium [Mass/Vol] 8.9 mg/dL Normal 8.5-10.2 [facility] Comment on above: Order Comment: Speci men Type: BLOOD SPECIMEN [facility] Address: [address] [place], [place] [address] Performed By: #### 5 763-8, COPPER #### [facility] CLIA [id number] [address] [place] [address] [place] Chloride [Moles/Vol] 99 mmol/L Normal 97-105 [facility] Comment on above: Order Comment: Speci men Type: BLOOD SPECIMEN [facility] Address: [address] [place], [place] [address] Performed By: #### 5 763-8, COPPER #### [facility] CLIA [id number] [address] [place] [address] [place] CO2 [Moles/Vol] 20 mmol/L Low 22-30 [facility] Comment on above: Order Comment: Speci men Type: BLOOD SPECIMEN [facility] Address: [address] Performed By: #### 5 763-8, COPPER #### [facility] CLIA [id number] [address] [place] [address] [place] Creatinine [Mass/Vol] 1.18 mg/dL Normal 0.73-1.22 [facility] Comment on above: Order Comment: Speci men Type: BLOOD SPECIMEN [facility] Address: [address] [place] [place] [address] Performed By: #### 5 763-8, COPPER #### [facility] CLIA [id number] [address] [place] [address] [place] ESTIMATED GLOMERULAR FILTRATION RATE 82 mL/min/1.73m??? Normal >=60 [facility] Comment on above: Order Comment: Noe [place] Type: BLOOD SPECIMEN [facility] Address: [address] [address] Result Comment: Brenda mated Glomerular Filtration Rate [...] #### 5 763-8, COPPER #### [facility] CLIA [id number] [address] [place] [address] [place] Glucose [Mass/Vol] 106 mg/dL High 74-99 [facility] Comment on above: Order Comment: Noe [place] Type: BLOOD SPECIMEN [facility] Address: [address] [place] [address] Result Comment: The [place] [employer] (ADA) provides guidance for cutoff [...] Standards of Medical Care in Diabetes 2016, [place] [employer]. Diabetes Care. 2016.39(Suppl 1). Performed By: #### 5 763-8, COPPER #### [facility] CLIA [id number] [address] [place] [address] [place] Potassium [Moles/Vol] 3.7 mmol/L Normal 3.7-5.1 [facility] Comment on above: Order Comment: Speci men Type: BLOOD SPECIMEN [facility] Address: [address] [place] [address] Performed By: #### 5 763-8, COPPER #### [facility] CLIA [id number] [address] [place] [address] [place] Protein [Mass/Vol] 6.0 g/dL Low 6.3-8.0 [facility] Comment on above: Order Comment: Speci men Type: BLOOD SPECIMEN [facility] Address: [address] [place] [address] Performed By: #### 5 763-8, COPPER #### [facility] CLIA [id number] [address] [place] [address] [place] Sodium [Moles/Vol] 132 mmol/L Low 136-144 [facility] Comment on above: Order Comment: Speci men Type: BLOOD SPECIMEN [facility] Address: [address] [place], [place] [address] Performed By: #### 5 763-8, COPPER #### [facility] CLIA [id number] [address] [place] [address] [place] Urea nitrogen [Mass/Vol] 8 mg/dL Low 9-24 [facility] Comment on above: Order Comment: Speci men Type: BLOOD SPECIMEN [facility] Address: [address] [place], [place] [address] Performed By: #### 5 763-8, COPPER #### [facility] CLIA [id number] [address] [place] [id number] [place] EBV capsid IgM Qn (S)on EBV VCA IGM, QUAL Negative Normal Negative [facility] Comment on above: Order Comment: Speci men Type: BLOOD SPECIMENOrdering Facility: [facility] Address: [address] [place] [address] Result Comment: No s erological evidence of recent EBV infection. Performed By: #### 7 886-5, 2284-8, VZVG2 ####[facility] LABCLIA [id number] [place] [address] [place] CLARK IRENE PANELon 023 EBV NA AB, QUAL Positive Abnormal Negative [facility] Comment on above: Order Comment: Speci men Type: BLOOD SPECIMEN [facility] Address: [address] [place] [address] Performed By: #### 2 4323-8 #### [facility] CLIA [id number] [address] [place] [address] [place] EBV VCA IGG, QUAL Positive Abnormal Negative [facility] Comment on above: Order Comment: Speci men Type: BLOOD SPECIMEN [facility] Address: [address] [place] [address] Performed By: #### 2 4323-8 #### [facility] CLIA [id number] [address] [place] EBV VCA IGM, QUAL Negative Normal Negative [facility] Comment on above: Order Comment: Speci men Type: BLOOD SPECIMEN [facility] Address: [address] [place] [address] Performed By: #### 2 4323-8 #### [facility] CLIA [id number] [address] [place] [address] [place] INTERPRETATION (EBVPNL) Past Infection. EBV panel interpretation is a general guide that is meant to capture most, but not all, of the possible clinical scenarios. Non-specific reactivities are not uncommon especially with equivocal results. Should the overall interpretation not be consistent with the clinical picture, please contact the medical secretary receptionist of the test for assistance. Normal [facility] Comment on above: Order Comment: Speci men Type: BLOOD SPECIMEN [facility] Address: [address] [place] [address] Performed By: #### 2 4323-8 #### [facility] CLIA [id number] [address] [place] [address] [place] Ferritin SerPl-mCncon 2022 Ferritin [Mass/Vol] 345.0 ng/mL Normal 30.3-565.7 [facility] Comment on above: Order Comment: Speci men Type: BLOOD SPECIMEN [facility] Address: [address] [place] [address] Performed By: #### V ITB6 #### [id number] [address] [place] [address] Fibrinogen PPP-mCncon 2022 Fibrinogen Coag (PPP) [Mass/Vol] 442 mg/dL High 200-400 [facility] Comment on above: Order Comment: Speci men Type: BLOOD SPECIMEN [facility] Address: [address] [place] [address] Performed By: #### V ITB6 #### [facility] [id number] [address] [place] [address] Folate SerPl-mCncon 09-02-19 Folate [Mass/Vol] 13.7 ng/mL Normal >4.7 [facility] Comment on above: Order Comment: Speci men Type: BLOOD SPECIMENOrdering Facility: [facility] Address: [address] [place] [address] Performed By: #### 7 886-5, 2284-8, VZVG2 ####[facility] LABCLIA [id number] [place] [address] [place] HAV IgM Ser Qlon 09-02-2022 HAV IgM Ql (S) Negative Normal Negative [facility] Comment on above: Order Comment: Speci men Type: BLOOD SPECIMENOrdering Facility: [facility] Address: [address] [place] [address] Result Comment: No e vidence of recent infection with Hepatitis A virus. Performed By: #### 2 532-0, 5195-3, 08926-6, 19082-6 ####[facility] LABCLIA [id number] [place] [address] [place] HBV core IgM Ser Qlon 2022 HBV core IgM Ql (S) Negative Normal Negative [facility] Comment on above: Order Comment: Speci men Type: BLOOD SPECIMENOrdering Facility: [facility] Address: [address] [place] [address] Result Comment: No e vidence of recent infection with Hepatitis B virus. Should recent infection be suspected, repeat testing may be considered 3-4 weeks after this draw. Performed By: #### 2 532-0, 5195-3, 34513-9, ####[facility] LABCLIA [id number] [address] [place] HBV surface Ag Ser Qlon HBV surface Ag Ql (S) Negative Normal Negative [facility] Comment on above: Order Comment: Speci men Type: BLOOD SPECIMENOrdering Facility: [facility] Address: [address] [place] [address] Performed By: #### 2 532-0, 5195-3, 65654-4, ####[facility] LABCLIA [id number] [place] [address] [place] HCV RNA SerPl NOLBERTO+probe-aCnc on 09-02-2022 HCV RNA NOLBERTO+probe Qn Not detected Normal HCV RNA not detected by PCR. [facility] Comment on above: Order Comment: Speci men Type: BLOOD SPECIMEN [facility] Address: [address] [place] [address] Performed By: #### 5 763-8, COPPER #### [facility] CLIA [id number] [address] [facility] [id number] [address] [place] HEP DELTA ABon 09-02-2022 HEP DELTA AB Negative Normal Negative [facility] Comment on above: Order Comment: [place]e [place] Type: BLOOD SPECIMENOrdering Facility: [facility] Address: [address] [place], [place] [address] Result Comment: No a ntibody to Hepatitis Delta agent was detected. Order anti-HDV testing only when Hepatitis B virus infection has been confirmed. INTERPRETIVE INFORMATION: Hepatitis Delta Ab This test was developed and its performance characteristics determined by [employer]. It has not been cleared or approved by the [place] Food and Drug Administration. This test was performed in a CLIA certified laboratory and is intended for clinical purposes. Performed by [facility], [address] [place] [id number] [email or web address], Mic Rangel MD, PHD, Lab. Director Performed By: #### A HD ####[facility] [id number] [place] [address] HEPATITIS E VIRUS ABon 09-02 HEV IGG Not detected Normal [facility] Comment on above: Order Comment: Noe [place] Type: BLOOD SPECIMENOrdering Facility: [facility] Address: [address] [place] [address] Performed By: #### H EPE ####[facility] [id number] [place] [address] HEV IGM Not detected Normal [facility] Comment on above: Order Comment: Noe [place] Type: BLOOD SPECIMENOrdering Facility: [facility] Address: [address] [place], [place] [address] Result Comment: REFE RENCE RANGE: NOT DETECTED [...] analytical performance characteristics have been determined by [employer]. It has not been cleared or approved by FDA. This assay has been validated pursuant to the CLIA regulations and is used for clinical purposes. Performed By: #### H EPE ####[facility] [id number] [place] [address] HISTORY PHYSICALon 3 HISTORY PHYSICAL HNO ID: [id number] Author: Carolin Crawford MD Service: Hepatology Author Type: Physician Type: HANDP Filed: 09/03/2022 5:06 PM Note Text: Department of Gastroenterology AND Hepatology Initial Consult Note Date of Service: September 02, 2022 Patient: Chuckie Villalta Medical Record: [id number] Reason for Admission / Consultation: Opinion/Advice regarding [...] Camacho MD Gastroenterology AND Hepatology Fellow Pager [phone] Discussed with staff. ==== History of Present [...] On Thursday, (more content not included)... Normal [facility] Haptoglob SerPl-mCncon 09-02 Haptoglobin [Mass/Vol] 36 mg/dL Normal 31-238 [facility] Comment on above: Order Comment: Speci men Type: BLOOD SPECIMEN [facility] Address: [address] [place] [id number] Performed By: #### 5 763-8, COPPER #### [facility] CLIA [id number] [address] [facility] [id number] [place] [address] [place] Iron and Iron binding capaci ty panelon 09-02-2022 Iron [Mass/Vol] 26 ug/dL Low 41-186 [facility] Comment on above: Order Comment: Speci men Type: BLOOD SPECIMEN [facility] Address: [address] [address] Performed By: #### V ITB6 #### [facility] [id number] [address] [place] [address] Iron binding capacity [Mass/Vol] 271 ug/dL Normal 232-386 [facility] Comment on above: Order Comment: Speci men Type: BLOOD SPECIMEN [facility] Address: [address] [address] Performed By: #### V ITB6 #### [facility] [id number] [address] [place] [address] Iron/TIBC [Molar ratio] 9.6 % Low 15.0-57.0 [facility] Comment on above: Order Comment: Speci men Type: BLOOD SPECIMEN [facility] Address: [address] [address] Performed By: #### V ITB6 #### [facility] [id number] [address] [place] [address] LDH SerPl-cCncon 09-02-2022 LDH [Catalytic activity/Vol] 207 U/L Normal 135-225 [facility] Comment on above: Order Comment: Speci men Type: BLOOD SPECIMENOrdering Facility: [facility] Address: [address] [place] [address] Performed By: #### 2 532-0, 5195-3, 11121-4, 20527-4 ####[facility] [id number] [facility] [id number], [place] [address] [place] Mitochondria Ab IF Ql (S)on 09-02-2022 Mitochondria M2 Ab IA Qn (S) 1.7 Units Normal <=20.0 [facility] Comment on above: Order Comment: Speci men Type: BLOOD SPECIMEN Ordering Facility: [facility] Address: [address] [place] [address] Performed By: #### 5 763-8, COPPER #### [facility] CLIA [id number] [address] [place] [address] [place] Mitochondria M2 Ab Ql (S) Negative Normal Negative [facility] Comment on above: Order Comment: Speci men Type: BLOOD SPECIMEN Ordering Facility: [facility] Address: [address] [place] [address] Result Comment: Anti -mitochondrial antibody test is used as an aid in diagnosis of primary biliary cholangitis. Clinical correlation is required. Performed By: #### 5 763-8, COPPER #### [facility] CLIA [id number] [address] [place] NURSING PROGon 09-02-2022 NURSING PROG HNO ID: [id number] Author: Radha Mcpherson RN Service: Nursing Author [...] <1.5 Radha Mcpherson RN 3:59 PM Normal [facility] PATHOLOGIST INTERPRETATION C BC/DIFFon 09-02-2022 Class B Driver review Ernst (Unsp spec) [Interp] Reviewed by Flex Morataya MD Normal [facility] Comment on above: Order Comment: Speci men Type: BLOOD SPECIMENOrdering Facility: [facility] Address: [address] [place] [address] Performed By: #### S TFREV, 57400-4, [id number] ####[facility] [id number] [address] STATES [place] STAFF REVIEW, CBCDIF Normal [facility] Comment on above: Order Comment: Speci men Type: BLOOD SPECIMENOrdering Facility: [facility] Address: [address] [address] Result Comment: Norm ocytic anemia without polychromasia Absolute lymphopenia without leukopenia Thrombocytopenia Performed By: #### S TFREV, 43824-7, [id number] ####[facility] [id number] [place] [address] [place] PHOSPHATIDYLETHANOL (PETH)on 09-02-2022 PETH 16:0/18.2 (PLPETH) 278 ng/mL Normal [facility] Comment on above: Order Comment: Speci men Type: BLOOD SPECIMEN Ordering Facility: [facility] Address: [address] [place] [address] Result Comment: Perf ormed By: [employer] [address] [place] [address] Credit Collections Specialist: Mic Rangel MD, PhD Performed By: #### 5 763-8, COPPER #### [facility] CLIA [id number] [address] [place] [address] [place] PETH 16:0/18:1 (POPETH) 578 ng/mL Normal [facility] Comment on above: Order Comment: Speci men Type: BLOOD SPECIMEN Ordering Facility: [facility] Address: [address] [place] [address] Result Comment: INTE RPRETIVE INFORMATION:Phosphatidylethanol (PEth), Whole [...] Research). Test developed and characteristics determined by [employer]. See Compliance Statement B: [email or web address] Performed By: #### 5 763-8, COPPER #### [facility] CLIA [id number] [address] [place] [address] [place] PT panel Coag (PPP)on 2022 INR Coag (PPP) [Relative time] 1.2 {INR} Normal 0.9-1.3 [facility] Comment on above: Order Comment: Speci men Type: BLOOD SPECIMEN Ordering Facility: [facility] Address: [address] [place], [place] [address] Result Comment: Aster min K Antagonist (VKA) Therapeutic Range: INR 2 to 3 (Target INR of 2.5) Note: For patients treated with VKA drugs, such as warfarin, the [employer] 2012 Guideline recommends [...] Chest 2012, 141:7S-47S Goldie SANTANA et al. [facility] 2017, 70: 252-289 Performed By: #### V ITB6 #### [facility] CLIA [id number] [address] [place] [address] PT Coag (PPP) [Time] 11.9 s Normal 9.7-13.0 [facility] Comment on above: Order Comment: Noe [place] Type: BLOOD SPECIMEN Ordering Facility: [facility] Address: [address] [place] [address] Performed By: #### V ITB6 #### [facility] CLIA [id number] [address] [place] [address] RBC MORPHOLOGYon 09-02-2022 Anisocytosis Ql (Bld) Present Normal [facility] Comment on above: Order Comment: Noe [place] Type: BLOOD SPECIMENOrdering Facility: [facility] Address: [address] [place] [address] Performed By: #### S TFREV, 21755-3, [id number] ####[facility] [id number] [place] [address] [facility] [place] Platelets Estimate (Bld) [#/Vol] Decreased Normal [facility] Comment on above: Order Comment: Noe [place] Type: BLOOD SPECIMENOrdering Facility: [facility] Address: [address] [place] [address] Performed By: #### S TFREV, 66923-6, [id number] ####[facility] [id number] [address] [place] RBC morphology finding Nom (Bld) Reviewed: see results of individual morphologies Normal [facility] Comment on above: Order Comment: Louiei men Type: BLOOD SPECIMENOrdering Facility: [facility] Address: [address] [address] Performed By: #### S TFREV, 08294-5, [id number] ####[facility] [id number] [place] [address] [place] Retics #on 09-02-2022 Reticulocytes (Bld) [#/Vol] 0.06843 10*3/uL Normal 0.018-0.100 [facility] Comment on above: Order Comment: Speci men Type: BLOOD SPECIMENOrdering Facility: [facility] Address: [address] [address] Performed By: #### 5 8410-2, 05833-5 ####[facility]IA [id number] [place] [address] [place] Reticulocytes (Bld) [#/Vol]o n 09-02-2022 Reticulocytes/100 RBC (Bld) 1.7 % Normal 0.4-2.0 [facility] Comment on above: Order Comment: Speci men Type: BLOOD SPECIMENOrdering Facility: [facility] Address: [address] [place] [address] Performed By: #### 5 8410-2, 15273-1 ####[facility]IA [id number] [place] [address] [place] Smooth muscle Ab Ql (S)on ACTIN SMOOTH MUSCLE IGG QUALITATIVE Negative Normal Negative [facility] Comment on above: Order Comment: Speci men Type: BLOOD SPECIMEN Ordering Facility: [facility] Address: [address] [address] Performed By: #### 5 763-8, COPPER #### [facility] CLIA [id number] [address] STATES [place] ACTIN SMOOTH MUSCLE IGG QUANTITATIVE 5 Units Normal <20 [facility] Comment on above: Order Comment: Speci men Type: BLOOD SPECIMEN Ordering Facility: [facility] Address: [address] [address] Performed By: #### 5 763-8, COPPER #### [facility] CLIA [id number] [address] [place] [address] [place] Tacrolimus Bld-mCncon 2022 Tacrolimus (Bld) [Mass/Vol] 7.4 ng/mL Normal 5.0-20.0 [facility] Comment on above: Order Comment: Speci men Type: BLOOD SPECIMENOrdering Facility: [facility] Address: [address] [address] Result Comment: Thes e reference ranges are [...] situation. Test performed by chemiluminescent immunoassay using Schuelr Microfilm Machine Operator. Performed By: #### 1 1253-2 ####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 Dental Instrument Maker: PSCB Transcribe Date/Time: Sep 02 2022 3:34P Dictated by : PAMELA SIMMONS, DO This examination was interpreted and the report reviewed and electronically signed by: KAMRON SHAH MD on Sep 02 2022 4:04PM EST [id number] Normal [facility] VARICELLA ZOSTER IGGon 09-02 VARICELLA ZOSTER IGG, QUAL Positive Normal Positive [facility] Comment on above: Order Comment: Speci men Type: BLOOD SPECIMENOrdering Facility: [facility] Address: [address] [address] Result Comment: The result suggests recent or past exposure to Varicella-Zoster virus or chickenpox vaccination or zoster vaccination. Positive result may also be seen due to presence of passively-transferred antibodies. Please correlate with patient's history. Performed By: #### 7 886-5, 2284-8, VZVG2 ####[facility] [id number] [address] [place] VARICELLA ZOSTER IGMon 09-02 VARICELLA ZOSTER, IGM 0.07 ISR Normal <=0.90 [facility] Comment on above: Order Comment: Noe [place] Type: BLOOD SPECIMEN Ordering Facility: [facility] Address: [address] [place], [place] [address] Result Comment: Specimen is icteric. Results may [...] 12 months post-infection or immunization. Performed By: [employer] [address] [place] [address] Credit Collections Specialist: Mic Rangel MD, PhD Performed By: #### 5 0189-0, 94157-5, 2132-9 #### [facility] CLIA [id number] [address] [place] [address] [place] aPTT PPPon 09-02-2022 aPTT Coag (PPP) [Time] 26.0 s Normal 23.0-32.4 [facility] Comment on above: Order Comment: Noe [place] Type: BLOOD SPECIMEN Ordering Facility: [facility] Address: [address] [place], [place] [address] Performed By: #### V ITB6 #### [facility] CLIA [id number] [address] [place] [address] CASE MGT INIT ASSESon 2022 CASE MGT INIT ASSES HNO ID: [id number] Author: JEY Felton Service: ? Author Type: Brake Repairer Type: Care Mgt Initial Assessment Filed: 09/01/2022 10:16 AM Note Text: CARE MANAGEMENT: ASSESSMENT AND DISCHARGE PLAN SERVICE DATE: September 01, 2022 SERVICE TIME: 10:15 AM PRIMARY CARE PHYSICIAN: Luis Abdalla DO Primary Contact: Extended Emergency Contact Information Primary Emergency Contact: Remedios Villalta Address: [address] [address] [facility] Mobile Relation: Spouse ADMISSION STATUS: Inpatient Insurance Provider: MEDICARE A AND B NEEDS PRIOR TO DISCHARGE Needs Prior to Discharge: To Be Determined POTENTIAL TRANSITION PLANS Home Patient's perception of need for this admission: Pt is aware of admission and is in agreement ADVANCE DIRECTIVES Current Advance Directive: Health Care Power of Dump Grounds Checker In Chart: Yes Up To Date and Valid: Yes CAREGIVER ASSESSMENT Caregiver is ready, willing and able to meet the patient's needs as recommended by the inter-professional team:: Yes Name of Caregiver: Remedios Villalta [phone] Patient's transition needs and plan for meeting these needs: Pt is aware of admission and is in agreement [place] OF CHOICE EXPLAINED: [place] of Choice Given: No Reason Not Given: [...] clearance for D/C SIGNATURE: Delilah Hightower MSW, THREAD REELER PATIENT NAME: Chuckie Villalta DATE: September 01, 2022 TIME: 10:14 AM CONTACT #: Normal [facility] CBC panel Auto (Bld)on 09-01 Erythrocyte distribution width (RBC) [Ratio] 16.8 % High 11.5-15.0 [facility] Comment on above: Order Comment: Speci men Type: BLOOD SPECIMENOrdering Facility: [facility] Address: [address] [place] [address] [place] [address] Performed By: #### 5 8410-2 ####[facility] [id number] [address] [place] Hematocrit (Bld) [Volume fraction] 37.0 % Low 39.0-51.0 [facility] Comment on above: Order Comment: Speci men Type: BLOOD SPECIMENOrdering Facility: [facility] Address: [address] [place], [place] [address] Performed By: #### 5 8410-2 ####[facility] [id number] [place] [address] [place] Hemoglobin (Bld) [Mass/Vol] 13.3 g/dL Normal 13.0-17.0 [facility] Comment on above: Order Comment: Speci men Type: BLOOD SPECIMENOrdering Facility: [facility] Address: [address] [place], [place] [address] Performed By: #### 5 8410-2 ####[facility] [id number] [place] [address] [place] MCH (RBC) [Entitic mass] 30.1 pg Normal 26.0-34.0 [facility] Comment on above: Order Comment: Speci men Type: BLOOD SPECIMENOrdering Facility: [facility] Address: [address] [place], [place] [address] Performed By: #### 5 8410-2 ####[facility] [id number] [address] [place] MCHC (RBC) [Mass/Vol] 35.9 g/dL Normal 30.5-36.0 [facility] Comment on above: Order Comment: Speci men Type: BLOOD SPECIMENOrdering Facility: [facility] Address: [address] [place], [place] [address] Performed By: #### 5 8410-2 ####[facility] [id number] [address] STATES OF [facility] MCV (RBC) [Entitic vol] 83.7 fL Normal 80.0-100.0 [facility] Comment on above: Order Comment: Speci men Type: BLOOD SPECIMENOrdering Facility: [facility] Address: [address] [place] [address] Performed By: #### 5 8410-2 ####[facility] [id number] [address] [place] Nucleated RBC (Bld) [#/Vol] 10*3/uL Normal <0.01 [facility] Comment on above: Order Comment: Speci men Type: BLOOD SPECIMENOrdering Facility: [facility] Address: [address] [place] [address] Performed By: #### 5 8410-2 ####[facility] [id number] [place] [address] [place] Platelet mean volume (Bld) [Entitic vol] 10.9 fL Normal 9.0-12.7 [facility] Comment on above: Order Comment: Speci men Type: BLOOD SPECIMENOrdering Facility: [facility] Address: [address] [place] [address] Performed By: #### 5 8410-2 ####[facility]IA [id number] [place] [address] [place] Platelets (Bld) [#/Vol] 56 10*3/uL Low 150-400 [facility] Comment on above: Order Comment: Speci men Type: BLOOD SPECIMENOrdering Facility: [facility] Address: [address] [place] [address] Result Comment: Resu lts checked and verified.No clot detected. Performed By: #### 5 8410-2 ####[facility] [id number] [place] [address] [place] RBC (Bld) [#/Vol] 4.42 10*6/uL Normal 4.20-6.00 [facility] Comment on above: Order Comment: Speci men Type: BLOOD SPECIMENOrdering Facility: [facility] Address: [address] [place], [place] [address] Performed By: #### 5 8410-2 ####[facility] [id number] [place] [address] [facility] OF [facility] WBC (Bld) [#/Vol] 5.59 10*3/uL Normal 3.70-11.00 [facility] Comment on above: Order Comment: Speci men Type: BLOOD SPECIMENOrdering Facility: [facility] Address: [address] [place], [place] [address] Performed By: #### 5 8410-2 ####[facility] [id number] [place] [address] [place] Comp Metab 2000 Pnl SerPlon 09-01-2022 Bilirubin [Mass/Vol] 8.5 mg/dL High 0.2-1.3 [facility] Comment on above: Order Comment: Speci men Type: BLOOD SPECIMEN Ordering Facility: [facility] Address: [address] [place], [place] [address] Performed By: #### 5 763-8, COPPER #### [facility] CLIA [id number] [address] [place] [address] [place] Comprehensive metabolic 2000 panelon 09-01-2022 Albumin [Mass/Vol] 4.0 g/dL Normal 3.9-4.9 [facility] Comment on above: Order Comment: Speci men Type: BLOOD SPECIMEN Ordering Facility: [facility] Address: [address] [place], [place] [address] Performed By: #### 5 763-8, COPPER #### [facility] CLIA [id number] [address] [place] [address] [place] ALP [Catalytic activity/Vol] 65 U/L Normal 38-113 [facility] Comment on above: Order Comment: Speci men Type: BLOOD SPECIMEN Ordering Facility: [facility] Address: [address] Performed By: #### 5 763-8, COPPER #### [facility] CLIA [id number] [address] [place] [address] [place] ALT [Catalytic activity/Vol] 147 U/L High 10-54 [facility] Comment on above: Order Comment: Speci men Type: BLOOD SPECIMEN Order[facility] Address: [address] Performed By: #### 5 763-8, COPPER #### [facility] CLIA [id number] [address] [place] [address] [place] Anion gap [Moles/Vol] 10 mmol/L Normal 9-18 [facility] Comment on above: Order Comment: Speci men Type: BLOOD SPECIMEN [facility]: [facility] Address: [address] Performed By: #### 5 763-8, COPPER #### [facility] CLIA [id number] [address] [place] [address] [place] AST [Catalytic activity/Vol] 617 U/L High 14-40 [facility] Comment on above: Order Comment: Speci men Type: BLOOD SPECIMEN [facility] Address: [address] Performed By: #### 5 763-8, COPPER #### [facility] CLIA [id number] [address] [place] [address] [place] Calcium [Mass/Vol] 8.6 mg/dL Normal 8.5-10.2 [facility] Comment on above: Order Comment: Speci men Type: BLOOD SPECIMEN [facility] Address: [address] Performed By: #### 5 763-8, COPPER #### [facility] CLIA [id number] [address] [place] [address] [place] Chloride [Moles/Vol] 102 mmol/L Normal 97-105 [facility] Comment on above: Order Comment: Speci men Type: BLOOD SPECIMEN [facility] Address: [address] [place] [address] Performed By: #### 5 763-8, COPPER #### [facility] CLIA [id number] [address] [place] [address] [place] CO2 [Moles/Vol] 23 mmol/L Normal 22-30 [facility] Comment on above: Order Comment: Speci men Type: BLOOD SPECIMEN [facility] Facility: [facility] Address: [address] [place] [address] Performed By: #### 5 763-8, COPPER #### [facility] CLIA [id number] [address] [place] [address] [place] Creatinine [Mass/Vol] 1.23 mg/dL High 0.73-1.22 [facility] Comment on above: Order Comment: Speci men Type: BLOOD SPECIMEN [facility] Facility: [facility] Address: [address] [place] [address] Performed By: #### 5 763-8, COPPER #### [facility] CLIA [id number] [facility] [address] [place] ESTIMATED GLOMERULAR FILTRATION RATE 78 mL/min/1.73m??? Normal >=60 [facility] Comment on above: Order Comment: Speci men Type: BLOOD SPECIMEN [facility]ing Facility: [facility] Address: [address] [place] [address] Result Comment: Brenda mated Glomerular Filtration Rate [...] #### 5 763-8, COPPER #### [facility] CLIA [id number] [address] [facility] [address] [address] [place] Glucose [Mass/Vol] 131 mg/dL High 74-99 [facility] Comment on above: Order Comment: Speci men Type: BLOOD SPECIMEN [facility] Facility[facility] Address: [address] [place] [address] Result Comment: The [employer] (ADA) provides guidance for cutoff [...] Standards of Medical Care in Diabetes 2016, [place] [employer]. Diabetes Care. 2016.39(Suppl 1). Performed By: #### 5 763-8, COPPER #### [facility] CLIA [id number] [address] [place] [address] [place] Potassium [Moles/Vol] 3.7 mmol/L Normal 3.7-5.1 [facility] Comment on above: Order Comment: Louiei mercy Type: BLOOD SPECIMEN [facility]ing Facility: [facility] Address: [address] [place] [address] Performed By: #### 5 763-8, COPPER #### [facility] CLIA [id number] [address] [address] [place] Protein [Mass/Vol] 6.2 g/dL Low 6.3-8.0 [facility] Comment on above: Order Comment: Speci men Type: BLOOD SPECIMEN [facility]ing Facility: [facility] Address: [address] [address] Performed By: #### 5 763-8, COPPER #### [facility] CLIA [id number] [address] [place] [address] Sodium [Moles/Vol] 135 mmol/L Low 136-144 [facility] Comment on above: Order Comment: Speci men Type: BLOOD SPECIMEN [facility]ing Facility: [facility] Address: [address] [address] Performed By: #### 5 763-8, COPPER #### [facility] CLIA [id number] [address] [place] [address] [place] Urea nitrogen [Mass/Vol] 11 mg/dL Normal 9-24 [facility] Comment on above: Order Comment: Speci men Type: BLOOD SPECIMEN [facility]ing Facility: [facility] Address: [address] [address] Performed By: #### 5 763-8, COPPER #### [facility] CLIA [id number] [address] [place] [address] OF [facility] ED NOTEon 09-01-2022 ED NOTE HNO ID: [id number] Author: Max Cuellar MD Service: Emergency Medicine [...] (ANC) 15.29(!) Lymph% 4.9 Abs Lymph 0.88(!) Tate% 9.0 Abs Tate 1.61(!) Eosin% 0.0 Abs Eosin <0.03 Baso% [...] the medicine service. Max Cuellar MD Normal [facility] HISTORY PHYSICALon 3 HISTORY PHYSICAL HNO ID: [id number] Author: Reymundo Charles MD Service: Hospital Medicine Author Type: Physician Type: HANDP Filed: 09/01/2022 12:49 AM Note Text: DEPARTMENT OF HOSPITAL MEDICINE HISTORY AND PHYSICAL EXAM SERVICE DATE: 09/01/2022 SERVICE TIME: 12:42 AM Primary Care Physician: Luis Abdalla, DO NIGHT AND WEEKEND COVERAGE: Please page [phone] until 7:30am this morning. Afterwards, patient will [...] 15.29 (*) Abs Lymph 0.88 (*) Abs Tate 1.61 (*) Abs Immature Gran 0.11 (*) All other components within normal limits Narrative: This is an appended report. These results have been appended to a previously verified report. ED BG VENOUS/LAB PANELS - Abnormal; Notable for the following components: Lactate (POCT) 4.7 (*) All other components within normal limits Narrative: Meter ID:ED Location:ED [facility], [address] [place] [address], [facility] ED BG VENOUS/LAB PANELS - Abnormal; Notable for the following components: Lactate (POCT) 2.7 (*) All other components within normal limits Narrative: Meter ID:ED Location:ED [facility], [address] [place] [address], [facility] PROTHROMBIN TIME/PT - Normal EXPEDITED COVID19 - Normal Narrative: This test has been authorized by FDA under an Emergency Use Authorization (EUA). Test performed by [facility], Molly Marrufo Pathology and Laboratory Medicine [place], [address] [place] [address]. LACTATE - ED (POC) LACTATE - ED [...] MEDICATIONS: Cu (more content not included)... Normal [facility] bilirubin panel [Ma ss/Vol]on 09-01-2022 Bilirubin.conjugated [Mass/Vol] 4.7 mg/dL High <0.2 [facility] Comment on above: Order Comment: Noe [place] Type: BLOOD SPECIMEN Ordering Facility: [facility] Address: [address] [place] [address] Performed By: #### 5 763-8, COPPER #### [facility] CLIA [id number] [address] [place] [address] [place] Bilirubin.indirect [Mass/Vol] 3.8 mg/dL High <1.4 [facility] Comment on above: Order Comment: Noe [place] Type: BLOOD SPECIMEN Ordering Facility: [facility] Address: [address] [place] [address] Performed By: #### 5 763-8, COPPER #### [facility] CLIA [id number] [facility] [place] [address] [place] SEPSIS LACTATEon 09-01-2022 Lactate [Moles/Vol] 0.9 mmol/L Normal <=2.0 [facility] Comment on above: Order Comment: Noe [place] Type: BLOOD SPECIMEN Ordering Facility: [facility] Address: [address] [place] [address] Performed By: #### 5 763-8, COPPER #### [facility] CLIA [id number] [facility] [place] [place] [address] [place] US ABD RIGHT [...] biliary ductal dilation, similar compared to 10/30/2021. Dental Instrument Maker: PSCB Transcribe Date/Time: Sep 01 2022 8:45P Dictated by : MOLLY MAI MD This examination was interpreted and the report reviewed and electronically signed by: KATERIN ALY MD on Sep 01 2022 9:14PM EST [id number] Normal [facility] XR CHEST 1V FRONTAL PORTon [...] Lower ACDF. IMPRESSION: No acute cardiopulmonary process. Dental Instrument Maker: PSCB Transcribe Date/Time: Sep 01 2022 1:11A Dictated by : GLADYS VIEYRA MD This examination was interpreted and the report reviewed and electronically signed by: GLADYS VIEYRA MD on Sep 01 2022 1:12AM EST [id number] Normal [facility] Bacteria Bld Culton 08-31-19 23 Bacteria identified Cx Nom (Bld) CULTURE, BLOOD: No growth 5 days Normal [facility] Comment on above: Performed By: #### 2 4323-8 #### [facility] CLIA [id number] [address] [place] Bacteria identified Cx Nom (Bld) CULTURE, BLOOD: No growth 5 days Normal [facility] Comment on above: Performed By: #### 6 00-7 ####[facility] [id number] [address] [place] Bilirub Conj SerPl-mCncon Bilirubin.conjugated [Mass/Vol] 0.4 mg/dL High <0.2 [facility] Comment on above: Order Comment: Speci men Type: BLOOD SPECIMEN Ordering Facility: [facility] Address: [address] [place] [address] Result Comment: Resu lts may be falsely decreased due to interference from hemolysis. Suggest reorder as clinically indicated. Performed By: #### 5 763-8, COPPER #### [facility] CLIA [id number] [address] [place] CBC W Auto Differential pane l (Bld)on 08-31-2022 Basophils (Bld) [#/Vol] 0.06 10*3/uL Normal <0.11 [facility] Comment on above: Order Comment: Speci men Type: BLOOD SPECIMEN Ordering Facility: [facility] Address: [address] [place] [address] Performed By: #### V ITB6 #### [facility] CLIA [id number] [address] [place] [address] Basophils/100 WBC (Bld) 0.3 % Normal [facility] Comment on above: Order Comment: Speci men Type: BLOOD SPECIMEN Ordering Facility: [facility] Address: [address] [place] [address] Performed By: #### V ITB6 #### [facility] CLIA [id number] [address] [place] [address] Differential cell count method Nom (Bld) Auto Normal [facility] Comment on above: Order Comment: Speci men Type: BLOOD SPECIMEN Ordering Facility: [facility] Address: [address] [place] [address] Performed By: #### V ITB6 #### [facility] CLIA [id number] [address] [place] [address] Eosinophils (Bld) [#/Vol] 10*3/uL Normal <0.46 [facility] Comment on above: Order Comment: Speci men Type: BLOOD SPECIMEN Ordering Facility: [facility] Address: [address] [place] [address] Performed By: #### V ITB6 #### [facility] CLIA [id number] [address] [place] [address] Eosinophils/100 WBC (Bld) 0.0 % Normal [facility] Comment on above: Order Comment: Speci men Type: BLOOD SPECIMEN Ordering Facility: [facility] Address: [address] [place] [address] Performed By: #### V ITB6 #### [facility] CLIA [id number] [address] [place] [address] Erythrocyte distribution width (RBC) [Ratio] 17.9 % High 11.5-15.0 [facility] Comment on above: Order Comment: Speci men Type: BLOOD SPECIMEN Ordering Facility: [facility] Address: [address] [place] [address] Performed By: #### V ITB6 #### [facility] CLIA [id number] [address] [place] [address] Hematocrit (Bld) [Volume fraction] 45.3 % Normal 39.0-51.0 [facility] Comment on above: Order Comment: Speci men Type: BLOOD SPECIMEN Ordering Facility: [facility] Address: [address] [place] [address] Performed By: #### V ITB6 #### [facility] CLIA [id number] [address] [place] [address] Hemoglobin (Bld) [Mass/Vol] 16.7 g/dL Normal 13.0-17.0 [facility] Comment on above: Order Comment: Speci men Type: BLOOD SPECIMEN Ordering Facility: [facility] Address: [address] [place] [address] Performed By: #### V ITB6 #### [facility] CLIA [id number] [address] [place] [address] Immature granulocytes (Bld) [#/Vol] 0.11 10*3/uL High <0.10 [facility] Comment on above: Order Comment: Speci men Type: BLOOD SPECIMEN Ordering Facility: [facility] Address: [address] [address] Performed By: #### V ITB6 #### [facility] CLIA [id number] [address] [place] [address] Immature granulocytes/100 WBC (Bld) 0.6 % Normal [facility] Comment on above: Order Comment: Speci men Type: BLOOD SPECIMEN Ordering Facility: [facility] Address: [address] [place] [address] Performed By: #### V ITB6 #### [facility] CLIA [id number] [address] [place] [address] Lymphocytes (Bld) [#/Vol] 0.88 10*3/uL Low 1.00-4.00 [facility] Comment on above: Order Comment: Speci men Type: BLOOD SPECIMEN Ordering Facility: [facility] Address: [address] [place] [address] Performed By: #### V ITB6 #### [facility] CLIA [id number] [address] [place] [address] Lymphocytes/100 WBC (Bld) 4.9 % Normal [facility] Comment on above: Order Comment: Speci men Type: BLOOD SPECIMEN Ordering Facility: [facility] Address: [address] [place] [address] Performed By: #### V ITB6 #### [facility] CLIA [id number] [address] [place] [address] MCH (RBC) [Entitic mass] 29.9 pg Normal 26.0-34.0 [facility] Comment on above: Order Comment: Speci men Type: BLOOD SPECIMEN Ordering Facility: [facility] Address: [address] [place] [address] Performed By: #### V ITB6 #### [facility] CLIA [id number] [address] [place] [address] MCHC (RBC) [Mass/Vol] 36.9 g/dL High 30.5-36.0 [facility] Comment on above: Order Comment: Speci men Type: BLOOD SPECIMEN Ordering Facility: [facility] Address: [address] [place] [address] Performed By: #### V ITB6 #### [facility] CLIA [id number] [address] [place] [address] MCV (RBC) [Entitic vol] 81.2 fL Normal 80.0-100.0 [facility] Comment on above: Order Comment: Speci men Type: BLOOD SPECIMEN Ordering Facility: [facility] Address: [address] [place] [address] Performed By: #### V ITB6 #### [facility] CLIA [id number] [address] [place] [address] Monocytes (Bld) [#/Vol] 1.61 10*3/uL High <0.87 [facility] Comment on above: Order Comment: Speci men Type: BLOOD SPECIMEN Ordering Facility: [facility] Address: [address] [place] [address] Performed By: #### V ITB6 #### [facility] CLIA [id number] [address] [place] [address] Monocytes/100 WBC (Bld) 9.0 % Normal [facility] Comment on above: Order Comment: Speci men Type: BLOOD SPECIMEN Ordering Facility: [facility] Address: [address] [address] Performed By: #### V ITB6 #### [facility] CLIA [id number] [address] [place] [address] Neutrophils (Bld) [#/Vol] 15.29 10*3/uL High 1.45-7.50 [facility] Comment on above: Order Comment: Speci men Type: BLOOD SPECIMEN Ordering Facility: [facility] Address: [address] [place] [address] Performed By: #### V ITB6 #### [facility] CLIA [id number] [address] [place] [address] Neutrophils/100 WBC (Bld) 85.2 % Normal [facility] Comment on above: Order Comment: Speci men Type: BLOOD SPECIMEN Ordering Facility: [facility] Address: [address] [place] [address] Performed By: #### V ITB6 #### [facility] CLIA [id number] [address] [place] [address] Nucleated RBC (Bld) [#/Vol] 10*3/uL Normal <0.01 [facility] Comment on above: Order Comment: Speci men Type: BLOOD SPECIMEN Ordering Facility: [facility] Address: [address] [place] [address] Performed By: #### V ITB6 #### [facility] CLIA [id number] [address] [place] [address] Nucleated RBC/100 WBC (Bld) [Ratio] 0.0 /100 WBC Normal [facility] Comment on above: Order Comment: Speci men Type: BLOOD SPECIMEN Ordering Facility: [facility] Address: [address] [address] Performed By: #### V ITB6 #### [facility] CLIA [id number] [address] [place] [address] Platelet mean volume (Bld) [Entitic vol] 10.8 fL Normal 9.0-12.7 [facility] Comment on above: Order Comment: Speci men Type: BLOOD SPECIMEN Ordering Facility: [facility] Address: [address] [address] Performed By: #### V ITB6 #### [facility] CLIA [id number] [address] [place] [address] Platelets (Bld) [#/Vol] 164 10*3/uL Normal 150-400 [facility] Comment on above: Order Comment: Speci men Type: BLOOD SPECIMEN Ordering Facility: [facility] Address: [address] [address] Performed By: #### V ITB6 #### [facility] CLIA [id number] [address] [place] [address] RBC (Bld) [#/Vol] 5.58 10*6/uL Normal 4.20-6.00 [facility] Comment on above: Order Comment: Speci men Type: BLOOD SPECIMEN Ordering Facility: [facility] Address: [address] [address] Performed By: #### V ITB6 #### [facility] CLIA [id number] [address] [place] [address] WBC (Bld) [#/Vol] 17.95 10*3/uL High 3.70-11.00 [facility] Comment on above: Order Comment: Speci men Type: BLOOD SPECIMEN Ordering Facility: [facility] Address: [address] [place] [address] Performed By: #### V ITB6 #### [facility] CLIA [id number] [address] [place] [address] CT ABD/PEL W IVCONon 023 CT ABD/PEL W IVCON * * *Final Report* * * DATE OF EXAM: Aug 31 2022 7:24PM [facility] 0530 - CT ABD/PEL W IVCON [...] Tissues: No significant finding. Lower thorax: Unremarkable. Chief Legal Officer (topogram) images: No additional findings. IMPRESSION: ACUTE EDEMATOUS PANCREATITIS. NO FLUID COLLECTIONS. Dental Instrument Maker: GUILLE Transcribe Date/Time: Aug 31 2022 7:29P Dictated by : RADHA FRANCO MD This examination was interpreted and the report reviewed and electronically signed by: LAQUITA NUÑEZ MD on Aug 31 2022 8:01PM EST [id number] Normal [facility] Comprehensive metabolic 2000 panelon 08-31-2022 Albumin [Mass/Vol] 5.0 g/dL High 3.9-4.9 [facility] Comment on above: Order Comment: Speci men Type: BLOOD SPECIMENOrdering Facility: [facility] Address: [address] [place] [address] Performed By: #### 2 4323-8, 55819-6, 3040-3, 48227-9, 92635-8 ####[facility] LABIA [id number] [place] [address] [place] ALP [Catalytic activity/Vol] 64 U/L Normal 38-113 [facility] Comment on above: Order Comment: Speci men Type: BLOOD SPECIMENOrdering Facility: [facility] Address: [address] [place] [address] Performed By: #### 2 4323-8, 57738-4, 3040-3, 24695-2, 91363-4 ####[facility] [id number] [place] [address] [place] ALT [Catalytic activity/Vol] 21 U/L Normal 10-54 [facility] Comment on above: Order Comment: Speci men Type: BLOOD SPECIMENOrdering Facility: [facility] Address: [address] [place] [address] Performed By: #### 2 4323-8, 90661-0, 3040-3, 74541-5, 60751-9 ####[facility]IA [id number] [place] [address] [place] Anion gap [Moles/Vol] 21 mmol/L High 9-18 [facility] Comment on above: Order Comment: Speci men Type: BLOOD SPECIMENOrdering Facility: [facility] Address: [address] [place] [address] Performed By: #### 2 4323-8, 77173-3, 3040-3, 33005-7, 99252-7 ####[facility] LABIA [id number] [place] [address] [place] AST [Catalytic activity/Vol] 31 U/L Normal 14-40 [facility] Comment on above: Order Comment: Speci men Type: BLOOD SPECIMENOrdering Facility: [facility] Address: [address] [place] [address] Performed By: #### 2 4323-8, 19212-2, 0-3, 31610-3, 32172-3 ####[facility] LABIA [id number] [place] [address] [place] Bilirubin [Mass/Vol] 4.1 mg/dL High 0.2-1.3 [facility] Comment on above: Order Comment: Speci men Type: BLOOD SPECIMENOrdering Facility: [facility] Address: [address] [place] [address] Performed By: #### 2 4323-8, 81266-5, 0-3, 76106-8, 78994-1 ####[facility] LABIA [id number] [place] [id number] [place] Calcium [Mass/Vol] 10.1 mg/dL Normal 8.5-10.2 [facility] Comment on above: Order Comment: Speci men Type: BLOOD SPECIMENOrdering Facility: [facility] Address: [address] [place] [address] Performed By: #### 2 4323-8, 04759-2, 3040-3, 87713-2, 35551-3 ####[facility] LABCLIA [id number] [place] [id number] [place] Chloride [Moles/Vol] 95 mmol/L Low 97-105 [facility] Comment on above: Order Comment: Speci men Type: BLOOD SPECIMENOrdering Facility: [facility] Address: [address] [place] [address] Performed By: #### 2 4323-8, 68106-4, 3040-3, 55838-2, 74196-0 ####[facility] LABCLIA [id number] [place] [address] [place] CO2 [Moles/Vol] 21 mmol/L Low 22-30 [facility] Comment on above: Order Comment: Speci men Type: BLOOD SPECIMENOrdering Facility: [facility] Address: [address] [place] [address] Performed By: #### 2 4323-8, 76330-3, 3040-3, 06631-6, 62624-5 ####[facility] LAB[facility]IA [id number] [place] [id number] [place] Creatinine [Mass/Vol] 1.66 mg/dL High 0.73-1.22 [facility] Comment on above: Order Comment: Speci men Type: BLOOD SPECIMENOrdering Facility: [facility] Address: [address] [place] [address] Performed By: #### 2 4323-8, 89660-4, 3040-3, 97996-6, 44811-0 ####[facility] LABCLIA [id number] [place] [id number] [place] ESTIMATED GLOMERULAR FILTRATION RATE 54 mL/min/1.73m??? Low >=60 [facility] Comment on above: Order Comment: Speci men Type: BLOOD SPECIMENOrdering Facility: [facility] Address: [address] [place] [address] Result Comment: Brenda mated Glomerular Filtration Rate [...] actual GFR. Performed By: #### 2 4323-8, 26374-4, 3040-3, 50105-9, 13073-4 ####[facility] LABCLIA [id number] [address] [address] [place] Glucose [Mass/Vol] 129 mg/dL High 74-99 [facility] Comment on above: Order Comment: Noe [place] Type: BLOOD SPECIMENOrdering Facility: [facility] Address: [address] [id number] Result Comment: The [place] [employer] (ADA) provides guidance for cutoff [...] Standards of Medical Care in Diabetes 2016, [place] [employer]. Diabetes Care. 2016.39(Suppl 1). Performed By: #### 2 4323-8, 63316-8, 3040-3, 37234-9, 30889-4 ####[facility] LABIA [id number] [address] [address] [place] Potassium [Moles/Vol] 4.0 mmol/L Normal 3.7-5.1 [facility] Comment on above: Order Comment: Noe [place] Type: BLOOD SPECIMENOrdering Facility: [facility] Address: [address] [place] [address] Performed By: #### 2 4323-8, 92269-2, 3040-3, 87954-5, 65656-9 ####[facility] LABCLIA [id number] [place] [id number] [place] Protein [Mass/Vol] 7.7 g/dL Normal 6.3-8.0 [facility] Comment on above: Order Comment: Speci men Type: BLOOD SPECIMENOrdering Facility: [facility] Address: [address] [place], [place] [address] Performed By: #### 2 4323-8, 23236-5, 3040-3, 53929-7, 78870-1 ####[facility] LABCLIA [id number] [place] [address] [place] Sodium [Moles/Vol] 137 mmol/L Normal 136-144 [facility] Comment on above: Order Comment: Speci men Type: BLOOD SPECIMENOrdering Facility: [facility] Address: [address] [place] [address] Performed By: #### 2 4323-8, 76372-8, 3040-3, 55302-5, 19082-2 ####[facility] LABCLIA [id number] [place] [address] [place] Urea nitrogen [Mass/Vol] 18 mg/dL Normal 9-24 [facility] Comment on above: Order Comment: Speci men Type: BLOOD SPECIMENOrdering Facility: [facility] Address: [address] [place], [place] [address] Performed By: #### 2 4323-8, 56449-4, 3040-3, 23211-2, 77747-7 ####[facility] LABCLIA [id number] [place] [id number] [place] ED NOTEon 08-31-2022 ED NOTE HNO ID: [id number] Author: Lorena Unger RN Service: Emergency Medicine [...] three days either due to vomiting. Normal [facility] ED NOTE HNO ID: [id number] Author: Reyes Schaefer RN Service: Emergency Medicine Author Type: Registered Nurse Type: ED Notes Filed: 08/31/2022 7:10 PM Note Text: Report given to BATOOL Rebollar Normal [facility] ED NOTE HNO ID: [id number] Author: Reyes Schaefer RN Service: Emergency Medicine [...] sating 100% RA. Pt hypertensive 200/96. Normal [facility] ED PROV NOTEon 08-31-2022 ED PROV NOTE HNO ID: [id number] Author: Ranjit Dawson MD Service: Emergency Medicine [...] components with (more content not included)... Normal [facility] Lipase SerPl-cCncon 08-31-19 23 Lipase [Catalytic activity/Vol] 894 U/L High 16-61 [facility] Comment on above: Order Comment: Speci men Type: BLOOD SPECIMEN Ordering Facility: [facility] Address: [address] [place] [address] Performed By: #### 5 763-8, COPPER #### [facility] CLIA [id number] [address] [facility] [place] [address] [place] Magnesium SerPl-mCncon 08-31 Magnesium [Mass/Vol] 1.6 mg/dL Low 1.7-2.3 [facility] Comment on above: Order Comment: Noe [place] Type: BLOOD SPECIMENOrdering Facility: [facility] Address: [address] [place] [address] Performed By: #### 2 4323-8, 85003-7, 3040-3, 51364-1, 94673-2 ####[facility] LABCLIA [id number] [facility] [address] [place] PT panel Coag (PPP)on 2022 INR Coag (PPP) [Relative time] 1.2 {INR} Normal 0.9-1.3 [facility] Comment on above: Order Comment: Noe [place] Type: BLOOD SPECIMEN Ordering Facility: [facility] Address: [address] [place] [address] Result Comment: Aster min K Antagonist (VKA) Therapeutic Range: INR 2 to 3 (Target INR of 2.5) Note: For patients treated with VKA drugs, such as warfarin, the [employer] 2012 Guideline recommends [...] Chest 2012, 141:7S-47S Goldie RA, et al. [facility] 2017, 70: 252-289 Performed By: #### 5 0189-0, 49296-4, 2132-03 #### [facility] CLIA [id number] [address] [place] [address] [place] PT Coag (PPP) [Time] 12.7 s Normal 9.7-13.0 [facility] Comment on above: Order Comment: Speci men Type: BLOOD SPECIMEN Ordering Facility: [facility] Address: [address] [place] [address] Performed By: #### 5 0189-0, 77320-2, 2132-03 #### [facility] CLIA [id number] [address] [place] [address] [place] Procalcitonin SerPl-mCncon 0 08-31-2022 Procalcitonin [Mass/Vol] ng/mL Normal <0.09 [facility] Comment on above: Order Comment: Speci men Type: BLOOD SPECIMEN Ordering Facility: [facility] Address: [address] [place] [address] Result Comment: For a guided interpretation of test results, please visit the Change in Procalcitonin Calculator, [email or web address]. Performed By: #### 5 763-8, COPPER #### [facility] CLIA [id number] [address] [place] [address] [place] SARS-CoV-2 RNA Resp Ql NOLBERTO+p robeon 08-31-2022 SARS-CoV-2 (COVID-19) RNA NOLBERTO+probe Ql (Resp) COVID 19 RESULT: Not detected The method used is RT-PCR or an equivalent NAAT method. Reference Range(the expected result in uninfected individuals): Not detected Normal [facility] Comment on above: Performed By: #### 2 4323-8 #### [facility] CLIA [id number] [facility] [place] [address] [place] Tacrolimus Bld-mCncon 2022 Tacrolimus (Bld) [Mass/Vol] 7.5 ng/mL Normal 5.0-20.0 [facility] Comment on above: Order Comment: Noe [place] Type: BLOOD SPECIMEN Ordering Facility: [facility] Address: [address] [place] [address] Result Comment: Thes e reference ranges are [...] Test performed by chemiluminescent immunoassay using [employer]uler Micro[employer] Machine Operator. Performed By: #### V ITB6 #### [facility] CLIA [id number] [address] [place] [address] Tacrolimus (Bld) [Mass/Vol] 7.3 ng/mL Normal 5.0-20.0 [facility] Comment on above: Order Comment: Noe [place] Type: BLOOD SPECIMEN [facility] [facility] Address: [address] [place] [address] Result Comment: Thes e reference ranges are [...] Test performed by chemiluminescent immunoassay using Schuler Microfilm Machine Operator. Performed By: #### 2 4323-8 #### [facility] CLIA [id number] [address] [place] CBC W Auto Differential pane l (Bld)on 07-07-2022 Basophils (Bld) [#/Vol] 10*3/uL Normal <0.11 [facility] Comment on above: Order Comment: Speci men Type: BLOOD SPECIMEN Ordering Facility: [facility] Address: [address] Performed By: #### 5 0189-0, , 2132-03 #### [facility] CLIA [id number] [address] [place] [address] [place] Basophils/100 WBC (Bld) 0.2 % Normal [facility] Comment on above: Order Comment: Speci men Type: BLOOD SPECIMEN Ordering Facility: [facility] Address: [address] [place] [address] Performed By: #### 5 0189-0, , 2132-03 #### [facility] CLIA [id number] [address] [place] [address] [place] Differential cell count method Nom (Bld) Auto Normal [facility] Comment on above: Order Comment: Speci men Type: BLOOD SPECIMEN Ordering Facility: [facility] Address: [address] [place] [address] Performed By: #### 5 0189-0, , 2132-03 #### [facility] CLIA [id number] [address] [place] [address] [place] Eosinophils (Bld) [#/Vol] 0.10 10*3/uL Normal <0.46 [facility] Comment on above: Order Comment: Speci men Type: BLOOD SPECIMEN Ordering Facility: [facility] Address: [address] Performed By: #### 5 0189-0, , 2132-03 #### [facility] CLIA [id number] [address] [place] [address] [place] Eosinophils/100 WBC (Bld) 2.0 % Normal [facility] Comment on above: Order Comment: Speci men Type: BLOOD SPECIMEN Ordering Facility: [facility] Address: [address] [place], [place] [address] Performed By: #### 5 0189-0, 74354-5, 2132-03 #### [facility] CLIA [id number] [address] [place] [address] [place] Erythrocyte distribution width (RBC) [Ratio] 12.9 % Normal 11.5-15.0 [facility] Comment on above: Order Comment: Speci men Type: BLOOD SPECIMEN Ordering Facility: [facility] Address: [address] [place], [place] [address] Performed By: #### 5 0189-0, 41127-3, 2132-03 #### [facility] CLIA [id number] [address] [place] [address] [place] Hematocrit (Bld) [Volume fraction] 39.1 % Normal 39.0-51.0 [facility] Comment on above: Order Comment: Speci men Type: BLOOD SPECIMEN Ordering Facility: [facility] Address: [address] [place], [place] [address] Performed By: #### 5 0189-0, 92078-7, 2132-03 #### [facility] CLIA [id number] [address] [place] [address] [place] Hemoglobin (Bld) [Mass/Vol] 13.3 g/dL Normal 13.0-17.0 [facility] Comment on above: Order Comment: Speci men Type: BLOOD SPECIMEN Ordering Facility: [facility] Address: [address] [place] [address] Performed By: #### 5 0189-0, 48803-6, 2132-03 #### [facility] CLIA [id number] [address] [place] [address] [place] Immature granulocytes (Bld) [#/Vol] 0.03 10*3/uL Normal <0.10 [facility] Comment on above: Order Comment: Speci men Type: BLOOD SPECIMEN Ordering Facility: [facility] Address: [address] [place], [place] [address] Performed By: #### 5 0189-0, , 2132-03 #### [facility] CLIA [id number] [address] [place] [address] [place] Immature granulocytes/100 WBC (Bld) 0.6 % Normal [facility] Comment on above: Order Comment: Speci men Type: BLOOD SPECIMEN Ordering Facility: [facility] Address: [address] [place], [place] [address] Performed By: #### 5 0189-0, , 2132-03 #### [facility] CLIA [id number] [address] [place] [address] [place] Lymphocytes (Bld) [#/Vol] 0.36 10*3/uL Low 1.00-4.00 [facility] Comment on above: Order Comment: Speci men Type: BLOOD SPECIMEN Ordering Facility: [facility] Address: [address] [place], [place] [address] Performed By: #### 5 0189-0, , 2132-03 #### [facility] CLIA [id number] [address] [place] [address] [place] Lymphocytes/100 WBC (Bld) 7.3 % Normal [facility] Comment on above: Order Comment: Speci men Type: BLOOD SPECIMEN Ordering Facility: [facility] Address: [address] [place] [address] Performed By: #### 5 0189-0, , 2132-03 #### [facility] CLIA [id number] [address] [place] [address] [place] MCH (RBC) [Entitic mass] 31.1 pg Normal 26.0-34.0 [facility] Comment on above: Order Comment: Speci men Type: BLOOD SPECIMEN Ordering Facility: [facility] Address: [address] [place], [place] [address] Performed By: #### 5 0189-0, , 2132-03 #### [facility] CLIA [id number] [address] [place] [address] [place] MCHC (RBC) [Mass/Vol] 34.0 g/dL Normal 30.5-36.0 [facility] Comment on above: Order Comment: Speci men Type: BLOOD SPECIMEN Ordering Facility: [facility] Address: [address] [place] [address] Performed By: #### 5 0189-0, , 2132-03 #### [facility] CLIA [id number] [address] [place] [address] [place] MCV (RBC) [Entitic vol] 91.6 fL Normal 80.0-100.0 [facility] Comment on above: Order Comment: Speci men Type: BLOOD SPECIMEN Ordering Facility: [facility] Address: [address] [place] [address] Performed By: #### 5 0189-0, , 2132-03 #### [facility] CLIA [id number] [address] [place] [address] [place] Monocytes (Bld) [#/Vol] 0.55 10*3/uL Normal <0.87 [facility] Comment on above: Order Comment: Speci men Type: BLOOD SPECIMEN Ordering Facility: [facility] Address: [address] [place] [address] Performed By: #### 5 0189-0, , 2132-03 #### [facility] CLIA [id number] [address] [place] [address] [place] Monocytes/100 WBC (Bld) 11.1 % Normal [facility] Comment on above: Order Comment: Speci men Type: BLOOD SPECIMEN Ordering Facility: [facility] Address: [address] [place] [address] Performed By: #### 5 0189-0, , 2132-03 #### [facility] CLIA [id number] [address] [place] [address] [place] Neutrophils (Bld) [#/Vol] 3.89 10*3/uL Normal 1.45-7.50 [facility] Comment on above: Order Comment: Speci men Type: BLOOD SPECIMEN Ordering Facility: [facility] Address: [address] [place], [place] [address] Performed By: #### 5 0189-0, , 2132-03 #### [facility] CLIA [id number] [address] [place] [address] [place] Neutrophils/100 WBC (Bld) 78.8 % Normal [facility] Comment on above: Order Comment: Speci men Type: BLOOD SPECIMEN Ordering Facility: [facility] Address: [address] [place], [place] [address] Performed By: #### 5 0189-0, , 2132-03 #### [facility] CLIA [id number] [address] [place] [address] [place] Nucleated RBC (Bld) [#/Vol] 10*3/uL Normal <0.01 [facility] Comment on above: Order Comment: Speci men Type: BLOOD SPECIMEN Ordering Facility: [facility] Address: [address] [place] [address] Performed By: #### 5 0189-0, , 2132-03 #### [facility] CLIA [id number] [address] [place] [address] [place] Nucleated RBC/100 WBC (Bld) [Ratio] 0.0 /100 WBC Normal [facility] Comment on above: Order Comment: Speci men Type: BLOOD SPECIMEN Ordering Facility: [facility] Address: [address] [place] [address] Performed By: #### 5 0189-0, , 2132-03 #### [facility] CLIA [id number] [address] [address] [place] Platelet mean volume (Bld) [Entitic vol] 12.4 fL Normal 9.0-12.7 [facility] Comment on above: Order Comment: Speci men Type: BLOOD SPECIMEN Ordering Facility: [facility] Address: [address] [place] [address] Performed By: #### 5 0189-0, , 2132-03 #### [facility] CLIA [id number] [address] [place] [address] [place] Platelets (Bld) [#/Vol] 76 10*3/uL Low 150-400 [facility] Comment on above: Order Comment: Speci men Type: BLOOD SPECIMEN Ordering Facility: [facility] Address: [address] [place], [place] [address] Result Comment: Resu lts checked and verified.No clot detected. Performed By: #### 5 0189-0, , 2132-03 #### [facility] CLIA [id number] [address] [place], [place] [address] [place] RBC (Bld) [#/Vol] 4.27 10*6/uL Normal 4.20-6.00 [facility] Comment on above: Order Comment: Speci men Type: BLOOD SPECIMEN Ordering Facility: [facility] Address: [address] [place] [address] Performed By: #### 5 0189-0, , 2132-03 #### [facility] CLIA [id number] [address] [place] [address] [place] WBC (Bld) [#/Vol] 4.94 10*3/uL Normal 3.70-11.00 [facility] Comment on above: Order Comment: Speci men Type: BLOOD SPECIMEN Ordering Facility: [facility] Address: [address] [place] [address] Performed By: #### 5 0189-0, 68715-5, 2-9 #### [facility] CLIA [id number] [address] [place] [address] [facility] Comprehensive metabolic 2000 panelon 07-07-2022 Albumin [Mass/Vol] 4.6 g/dL Normal 3.9-4.9 [facility] Comment on above: Order Comment: Speci men Type: BLOOD SPECIMENOrdering Facility: [facility] Address: [address] [place], [place] [address] Performed By: #### 2 4323-8, 4-2, ####[facility] [id number] [place] [address] [place]#### 22710-7 ####[facility] [id number] [address] LABORATORYCLIA [id number] [place] [address] [place] ALP [Catalytic activity/Vol] 59 U/L Normal 38-113 [facility] Comment on above: Order Comment: Speci men Type: BLOOD SPECIMENOrdering Facility: [facility] Address: [address] [place], [place] [address] Performed By: #### 2 4323-8, 2323-2, ####[facility]IA [id number] [place] [address] [place]#### 21630-3 ####[facility] [id number] [address] OF [facility] [place] LABORATORYCLIA [id number] [place] [address] [place] ALT [Catalytic activity/Vol] 46 U/L Normal 10-54 [facility] Comment on above: Order Comment: Speci men Type: BLOOD SPECIMENOrdering Facility: [facility] Address: [address] [place] [phone] Performed By: #### 2 3-8, 2323-2, ####[facility] [id number] [place] [address] [place]#### 30474-5 ####[facility] [id number] [facility] [place] [id number] [place] OF [facility] LABORATORYCLIA [id number] [place] [address] [place] Anion gap [Moles/Vol] 13 mmol/L Normal 9-18 [facility] Comment on above: Order Comment: Speci men Type: BLOOD SPECIMENOrdering Facility: [facility] Address: [address] [place] [address] Performed By: #### 2 4322-8, 2323-08, ####[facility] LAB[facility]IA [id number] [place] [address] [place]#### 05555-7 ####[facility] LAB[facility]IA [id number] [place] [address] [place] [facility] LABORATORYCLIA [id number] [place] [address] [place] AST [Catalytic activity/Vol] 30 U/L Normal 14-40 [facility] Comment on above: Order Comment: Speci men Type: BLOOD SPECIMENOrdering Facility: [facility] Address: [address] [place] [phone] Performed By: #### 2 4323-8, 2, ####[facility] LAB[facility]IA [id number] [place] [id number] [place]#### 98760-5 ####[facility] LABCLIA [id number] [place] [address] [place] [facility] LABORATORYCLIA [id number] [place] [address] [place] Bilirubin [Mass/Vol] 0.9 mg/dL Normal 0.2-1.3 [facility] Comment on above: Order Comment: Speci men Type: BLOOD SPECIMENOrdering Facility: [facility] Address: [address] [place] [address] Performed By: #### 2 4323-8, 2323-2, ####[facility] LABCLIA [id number] [place] [address] [place]#### 55088-2 ####[facility] LABCLIA [id number] [address] LABORATORYIA [id number] [place] [address] [place] Calcium [Mass/Vol] 9.7 mg/dL Normal 8.5-10.2 [facility] Comment on above: Order Comment: Speci men Type: BLOOD SPECIMENOrdering Facility: [facility] Address: [address] [place] [address] Performed By: #### 2 4323-8, 2323-2, ####[facility] LABCLIA [id number] [place] [address] [place]#### 08265-5 ####[facility] LABCLIA [id number] [place] [address] [place] [address] [facility] LABORATORYCLIA [id number] [place] [address] [place] Chloride [Moles/Vol] 104 mmol/L Normal 97-105 [facility] Comment on above: Order Comment: Speci men Type: BLOOD SPECIMENOrdering Facility: [facility] Address: [address] [place], [place] [address] Performed By: #### 2 4323-8, 2323-2, ####[facility] LABCLIA [id number] [place] [address] [place]#### 13304-8 ####[facility] LABCLIA [id number] [address] [place] LABORATORYCLIA [id number] [place] [address] [place] CO2 [Moles/Vol] 24 mmol/L Normal 22-30 [facility] Comment on above: Order Comment: Speci men Type: BLOOD SPECIMENOrdering Facility: [facility] Address: [address] [place] [address] Performed By: #### 2 432-8, 2323-08, ####[facility] LABCLIA [id number] [place] [address] [place]#### 34486-8 ####[facility] LABCLIA [id number] [address] LABORATORYCLIA [id number] [place] [address] [place] Creatinine [Mass/Vol] 1.14 mg/dL Normal 0.73-1.22 [facility] Comment on above: Order Comment: Speci men Type: BLOOD SPECIMENOrdering Facility: [facility] Address: [address] [place] [phone] Performed By: #### 2 4323-8, 2323-2, ####[facility] LABCLIA [id number] [place] [address] [place]#### 72637-0 ####[facility] LABCLIA [id number] [place] [id number] [place] [facility] LABORATORYCLIA [id number] [place] [address] [place] ESTIMATED GLOMERULAR FILTRATION RATE 85 mL/min/1.73m??? Normal >=60 [facility] Comment on above: Order Comment: [place]e [place] Type: BLOOD SPECIMENOrdering Facility: [facility] Address: [address] [place] [address] Result Comment: Brenda mated Glomerular Filtration Rate [...] GFR. Performed By: #### 2 4323-8, 2324-2, 82478-6 ####[facility] LABCLIA [id number] [address] [place]#### 59206-6 ####[facility] LABCLIA [id number] [place] [address] [place] [address] [facility] LABORATORYCLIA [id number] [place] [address] [place] Glucose [Mass/Vol] 109 mg/dL High 74-99 [facility] Comment on above: Order Comment: Noe [place] Type: BLOOD SPECIMENOrdering Facility: [facility] Address: [address] [place], [place] [address] Result Comment: The [place] Diabetes Association (ADA) provides guidance for cutoff [...] Standards of Medical Care in Diabetes 2016, [place] [employer] Association. Diabetes Care. 2016.39(Suppl 1). Performed By: #### 2 4323-8, 2323-2, ####[facility] LABCLIA [id number] [place] [address] [place]#### 05701-9 ####[facility] LABCLIA [id number] [facility] [place] [id number] [facility] LABORATORYCLIA [id number] [place] [address] [place] Potassium [Moles/Vol] 4.3 mmol/L Normal 3.7-5.1 [facility] Comment on above: Order Comment: Speci men Type: BLOOD SPECIMENOrdering Facility: [facility] Address: [address] [place] [address] Performed By: #### 2 432-8, 2323-08, ####[facility] LABCLIA [id number] [place] [address] [place]#### 80334-3 ####[facility] LABCLIA [id number] [facility] [address] STATES OF [facility] LABORATORYCLIA [id number] [place] [address] [place] Protein [Mass/Vol] 7.6 g/dL Normal 6.3-8.0 [facility] Comment on above: Order Comment: Speci men Type: BLOOD SPECIMENOrdering Facility: [facility] Address: [address] [place] [address] Performed By: #### 2 4323-8, 2323-2, ####[facility] LABCLIA [id number] [facility] [address] [address] [place]#### 22658-8 ####[facility] LABCLIA [id number] [address] [address] [place] [address] [facility] LABORATORYCLIA [id number] [place] [address] [place] Sodium [Moles/Vol] 141 mmol/L Normal 136-144 [facility] Comment on above: Order Comment: Speci men Type: BLOOD SPECIMENOrdering Facility: [facility] Address: [address] [place] [address] Performed By: #### 2 4323-8, 4-2, ####[facility] LABCLIA [id number] [place] [address] [place]#### 36274-5 ####[facility] LABCLIA [id number] [place] [id number] [place] [facility] LABORATORYCLIA [id number] [place] [address] [place] Urea nitrogen [Mass/Vol] 21 mg/dL Normal 9-24 [facility] Comment on above: Order Comment: Speci men Type: BLOOD SPECIMENOrdering Facility: [facility] Address: [address] [place] [address] Performed By: #### 2 4323-8, 4-2, ####[facility] LABCLIA [id number] [place] [address] [place]#### 31939-7 ####[facility] LABCLIA [id number] [address] [address] [place] [address] [facility] LABORATORYCLIA [id number] [place] [address] [place] GGT SerPl-cCncon 07-07-2022 Gamma glutamyl transferase [Catalytic activity/Vol] 54 U/L Normal 10-70 [facility] Comment on above: Order Comment: Speci men Type: BLOOD SPECIMENOrdering Facility: [facility] Address: [address] [place] [address] Performed By: #### 2 4323-8, 4-2, ####[facility] LABCLIA [id number] [place] [address] [place]#### 48296-7 ####[facility] LABCLIA [id number] [address] OF [facility] [place] LABORATORYCLIA [id number] [place], [place] [address] [place] [address] [place] Lipid 1996 panelon 2 Cholesterol [Mass/Vol] 180 mg/dL Normal <200 [facility] Comment on above: Order Comment: Speci men Type: BLOOD SPECIMENOrdering Facility: [facility] Address: [address] [place] [address] Result Comment: <200 mg/dL, Desirable 200-239 mg/dL, Borderline high >239 mg/dL, High Performed By: #### 2 4323-8, 2323-2, ####[facility] LABCLIA [id number] [place] [address] [place]#### 36166-6 ####[facility] LABCLIA [id number] [address] STATES OF AMER[facility]ABLAN[facility] LABORATORYCLIA [id number] [place] [address] [place] Cholesterol in HDL [Mass/Vol] 36 mg/dL Low >39 [facility] Comment on above: Order Comment: Speci men Type: BLOOD SPECIMENOrdering Facility: [facility] Address: [address] Result Comment: 40-5 9 mg/dL, Acceptable >59 mg/dL, High: Negative risk factor for coronary heart disease <40 mg/dL, Low: Positive risk factor for coronary heart disease Performed By: #### 2 4323-8, 4-2, ####[facility] LABCLIA [id number] [address] [place]#### [address]-0 ####[facility] LABCLIA [id number] [address] STATES OF [facility] LABORATORYCLIA [id number] [place] [address] [place] Cholesterol in LDL [Mass/Vol] 106 mg/dL High <100 [facility] Comment on above: Order Comment: Speci men Type: BLOOD SPECIMENOrdering Facility: [facility] Address: [address] [place] [phone] Result Comment: <100 mg/dL, Optimal 100-129 mg/dL, Near optimal/above optimal 130-159 mg/dL, Borderline high 160-189 mg/dL, High >189 mg/dL, Very high Secondary prevention optimal LDL Cholesterol levels are recommended to be < 70 mg/dL Performed By: #### 2 4323-8, 2324-2, 05164-2 ####[facility] LABCLIA [id number] [place] [address] [place]#### 46908-4 ####[facility] LABCLIA [id number] [address] STATES OF [facility] LABORATORYCLIA [id number] [address] STATES OF [facility] Cholesterol in LDL/Cholesterol in HDL [Mass ratio] 2.94 {ratio} High <2.54 [facility] Comment on above: Order Comment: Speci men Type: BLOOD SPECIMENOrdering Facility: [facility] Address: [address] [place] [phone] Result Comment: Li green: 1. National Cholesterol Education Program ATP III Guideline At-A-Glance Quick Desk Reference: National Heart, Lung, and Blood [place]. National Institutes of Health. 2001: NIH Publication No. 01-3305. 2. An International Atherosclerosis Society position paper: global recommendations for the management of dyslipidemia: executive summary, Atherosclerosis. 2014: 232(2):410-413. Performed By: #### 2 4323-8, 2323-2, ####[facility] LABCLIA [id number] [place] [address] [place]#### 56740-8 ####[facility] LABCLIA [id number] [place] [id number] [facility] [place] LABORATORYCLIA [id number] [place] [address] [place] Cholesterol in VLDL [Mass/Vol] 38 mg/dL High <30 [facility] Comment on above: Order Comment: Speci men Type: BLOOD SPECIMENOrdering Facility: [facility] Address: [address] [phone] Performed By: #### 2 432-8, 2323-08, ####[facility] LABCLIA [id number] [place] [address] [place]#### 17184-5 ####[facility] LABCLIA [id number] [address] LABORATORYCLIA [id number] [place], [place] [address] [place] [address] [place] Cholesterol non HDL [Mass/Vol] 144 mg/dL High <130 [facility] Comment on above: Order Comment: Speci men Type: BLOOD SPECIMENOrdering Facility: [facility] Address: [address] [phone] Result Comment: <130 mg/dL, Optimal 130-159 mg/dL, Near optimal/above optimal 160-189 mg/dL, Borderline high 190-219 mg/dL, High >219 mg/dL, Very high Secondary prevention optimal non HDL Cholesterol levels are recommended to be <100 mg/dL Performed By: #### 2 4323-8, 2323-2, ####[facility] LABCLIA [id number] [place] [address] [place]#### 72602-4 ####[facility] LABCLIA [id number] [address] OF [facility] [place] LABORATORYCLIA [id number] [place] [address] [place] Cholesterol.total/Chol esterol in HDL [Mass ratio] 5.00 {ratio} Normal <5.10 [facility] Comment on above: Order Comment: Speci men Type: BLOOD SPECIMENOrdering Facility: [facility] Address: [address] [place] [address] Performed By: #### 2 4323-8, 2323-08, ####[facility] LABCLIA [id number] [place] [address] [place]#### 41795-1 ####[facility] LABCLIA [id number] [address] STATES OF [facility] LABORATORYCLIA [id number] [place] [address] [place] FASTING TIME 1 hrs Normal [facility] Comment on above: Order Comment: Speci men Type: BLOOD SPECIMENOrdering Facility: [facility] Address: [address] [place] [address] Result Comment: veronica ent had lunch Performed By: #### 2 4323-8, 2323-08, ####[facility] LABCLIA [id number] [address] [address] [place]#### 84289-4 ####[facility] LABCLIA [id number] [address] [address] [place] [facility] [place] LABORATORYCLIA [id number] [place] [address] [place] Triglyceride [Mass/Vol] 190 mg/dL High <150 [facility] Comment on above: Order Comment: Speci men Type: BLOOD SPECIMENOrdering Facility: [facility] Address: [address] [address] Result Comment: <150 mg/dL, Normal 150-199 mg/dL, Borderline high 200-499 mg/dL, High >499 mg/dL, Very high Performed By: #### 2 4323-8, 4-2, ####[facility] LABCLIA [id number] [place] [address] [place]#### 85651-0 ####[facility] LABCLIA [id number] [address] LABORATORYCLIA [id number] [place] [address] [place] Magnesium SerPl-ncon 07-07 Magnesium [Mass/Vol] 1.7 mg/dL Normal 1.7-2.3 [facility] [place] [facility] Comment on above: Order Comment: Speci men Type: BLOOD SPECIMENOrdering Facility: [facility] Address: [address] [place] [address] Performed By: #### 2 4323-8, 2, ####[facility] LABCLIA [id number] [place] [address] [place]#### 14064-3 ####[facility] LABCLIA [id number] [address] [place] LABORATORYCLIA [id number] [place] [address] [place] Phosphate SerPl-mCncon 07-07 Phosphate [Mass/Vol] 3.6 mg/dL Normal 2.7-4.8 [facility] [place] [facility] Comment on above: Order Comment: Speci men Type: BLOOD SPECIMENOrdering Facility: [facility] Address: [address] Performed By: #### 2 777-1 ####[facility] LABCLIA [id number] [id number] OF [facility] Tacrol[facility] Tacrolimus (Bld) [Mass/Vol] 3.0 ng/mL Low 5.0-20.0 [facility] Comment on above: Order Comment: Speci men Type: BLOOD SPECIMEN [facility] Address: [address] [phone] Result Comment: Thes e reference ranges are [...] Test performed by chemiluminescent immunoassay using Schuler Microfilm Machine Operator. Performed By: #### V ITB6 #### [facility] [employer] CLIA [id number] [address] [place] [address] [facility] CHUCKIE VILLALTA ([id number]) 1985 TRN Date Time Provider Department 03/24/22 [...] questions. 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 Allergies As of Date: 03/24/2022 Noted Allergy Reaction PENICILLINS 16 - Unknown Comments: Skin test positive 09/01/18 [place]AM 02/18/2021 14 - Other: See Comments SEASONAL ALLERGIES 06/29/2018 16 - Unknown Date Reviewed: 12/27/2021 Reviewed by: Carlos Muñoz RN - Fully Assessed Reason for Visit: Reminder To Have Labs Drawn [5295] Prescriptions as of 03/24/2022 - iv contrast [...] Necrotizing pancreatitis [K85.91] 10/30/2021 Encounter Status:Closed by NADAJ SPENCER on 03/24/22 [facility] CNOVdanie 02-25-2022 CNOV Office Visit (PSCHL) CHUCKIE VILLALTA ([id number]) 1985 M TRN Date Time Provider Department 02/25/22 9:00 AM ROSEMARIE SHEPARD During your visit today, we recorded the following information about you: SHAQ Chua 02/25/2022 10:46 AM Signed [facility] Assessment Visit Type:Virtual Visit utilizing two-way audio and video for at least a portion of the visit IDENTIFYING INFORMATION: [phone] [email or web address] Lives with of nine years, Екатерина and [...] consented to virtual evaluation. Patient and this rewriter present during interview. PRECIPITATING PROBLEM(S):Patient was dx with liver disease in 2017. Completed an IOP at [facility] in summer 2018, and received liver transplant [...] Age 16, every other weekend. Went to [employer] for college drank heavily on weekends, then [...] was intend (more content not included)... Normal [facility] CT ABDOMEN W IVCONon 022 [facility] Basic Metabolic Panlon 07-12 Anion gap [Moles/Vol] 8 mmol/L Low 9-18 [facility] Calcium [Mass/Vol] 8.6 mg/dL Normal 8.5-10.2 [facility] Chloride [Moles/Vol] 103 mmol/L Normal 97-105 [facility] CO2 [Moles/Vol] 24 mmol/L Normal 22-30 [facility] Creatinine [Mass/Vol] 2.67 mg/dL High 0.73-1.22 [facility] eGFR- Amer. 33 Normal [facility] eGFR-All Other Races 27 . Normal [facility] Comment on above: Result Comment: eGFR [...] [email or web address]. Glucose [Mass/Vol] 113 mg/dL High 74-99 [facility] Comment on above: Result Comment: The [place] Diabetes Association (ADA) provides guidance for cutoff [...] Standards of Medical Care in Diabetes 2016, [place] Diabetes Association. Diabetes Care. 2016.39(Suppl 1). Potassium [Moles/Vol] 3.3 mmol/L Low 3.7-5.1 [facility] Sodium [Moles/Vol] 135 mmol/L Low 136-144 [facility] Urea nitrogen [Mass/Vol] 11 mg/dL Normal 9-24 [facility] CASE MANAGEMon 07-12-2021 CASE MANAGEM HNO ID: [id number] Author: Nanette Dangelo RN Service: ? Author [...] 12, 2021 TIME: 4:48 PM PAGER/CONTACT #: [facility]21 [facility]: [id number] Author: [place] MD Service: Hospital Medicine [...] GI team who initially recommended ERCP at [facility] but at this time planning to [...] 1.3. He was seen by infectious disease corporate travel consultant today who recommended adding G6PD to [...] specialist. You were also seen by pain farm management professor while you are in the hospital. I have not added any pain medications due to near complete resolution of symptoms. You were seen by neurologist recently for the patient's symptoms. They will follow up as an outpatient also. Please follow-up with primary MD in 1 week Follow-up with transplant team at the earliest available appointment-hospice volunteer coordinator has promised to set up an [...] identified Vision (more content not included)... Normal [facility] CONSULTon 07-12-2021 CONSULT HNO ID: [id number] Author: Latrell Cabello MD Service: Infectious Disease [...] Smoking status: Nev (more content not included)... [facility] CONSULT PROGon 07-12-2021 CONSULT PROG HNO ID: [id number] Author: Justin Glasgow PA-C Service: Pain Management Author Type: Physician Fire Hazard Inspector Type: Consult Progress Note Filed: 07/12/2021 4:02 [...] Pain scores overnight between 4-8/10 per Vital Chief Legal Officer. The patient's current inpatient analgesic regimen [...] Garrido, PA-C July 12, 2021 4:01 PM [facility] CONSULT PROG HNO ID: [id number] Author: Spike Gandara MD Service: Nephrology Author Type: Physician Type: Consult Progress Note Filed: 07/12/2021 12:22 PM Note Text: [facility] NEPHROLOGY CONSULT PROGRESS NOTE SERVICE DATE: [...] DATE: July 12, 2021 12:22 PM PHONE: [phone] FOR AFTER HOUR CONCERNS BETWEEN 7PM - 7AM CONTACT ON-CALL NEPHROLOGY STAFF Normal [facility] Hepatic Functn Panelon 07-12 Albumin [Mass/Vol] 3.0 g/dL Low 3.9-4.9 [facility] ALP [Catalytic activity/Vol] 292 U/L High 38-113 [facility] ALT [Catalytic activity/Vol] 44 U/L Normal 10-54 [facility] AST [Catalytic activity/Vol] 129 U/L High 14-40 [facility] Bilirubin [Mass/Vol] 1.6 mg/dL High 0.2-1.3 [facility] Bilirubin,Conjugated 1.0 mg/dL High <0.2 [facility] Protein [Mass/Vol] 5.7 g/dL Low 6.3-8.0 [facility] NURSING PROGon 07-12-2021 NURSING PROG HNO ID: [id number] Author: Marcela Mcdaniel RN Service: Nursing Author Type: Registered Nurse Type: Nursing Progress Note Filed: 07/12/2021 1:03 AM Note Text: Nursing Progress Note Patient Name: Chuckie Villalta Patient [facility] Daily Note: Report received from BATOOL Nolan. Pt resting comfortably in bed. Will continue to monitor. This note was completed by: Marcela Mcdaniel Normal [facility] Tacrolimus / [id number] 021 Tacrolimus / FK506 7.7 ng/mL Normal 5.0-20.0 [facility] Comment on above: Result Comment: Thes [...] situation. Test performed by chemiluminescent immunoassay using [employer]. Performed By: #### F K506 ####[facility] [address] [place], [place] [phone] Amylaseon 07-11-2021 Amylase [Catalytic activity/Vol] 59 U/L Normal 30-104 [facility] Basic Metabolic Panlon 07-11 Anion gap [Moles/Vol] 10 mmol/L Normal 9-18 [facility] Calcium [Mass/Vol] 8.5 mg/dL Normal 8.5-10.2 [facility] Chloride [Moles/Vol] 103 mmol/L Normal 97-105 [facility] CO2 [Moles/Vol] 22 mmol/L Normal 22-30 [facility] Creatinine [Mass/Vol] 2.77 mg/dL High 0.73-1.22 [facility] eGFR- Amer. 32 Normal [facility] eGFR-All Other Races 26 . Normal [facility] Comment on above: Result Comment: eGFR [...] [email or web address]/gfr_[email or web address]. Glucose [Mass/Vol] 122 mg/dL High 74-99 [facility] Comment on above: Result Comment: The [place] Diabetes Association (ADA) provides guidance for cutoff [...] Standards of Medical Care in Diabetes 2016, [place] Diabetes Association. Diabetes Care. 2016.39(Suppl 1). Potassium [Moles/Vol] 3.5 mmol/L Low 3.7-5.1 [facility] Sodium [Moles/Vol] 135 mmol/L Low 136-144 [facility] Urea nitrogen [Mass/Vol] 12 mg/dL Normal 9-24 [facility] CONSULT PROGon 07-11-2021 CONSULT PROG HNO ID: [id number] Author: Spike Gandara MD Service: Nephrology Author Type: Physician Type: Consult Progress Note Filed: 07/11/2021 1:06 PM Note Text: [facility] NEPHROLOGY CONSULT PROGRESS NOTE SERVICE DATE: [...] stenosis, seem by GI, pending transfer to [facility] ? 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 The patient's current inpatient analgesic regimen [...] PA-C July 11, 2021 11:02 AM Normal [facility] Amylaseon 07-10-2021 Amylase [Catalytic activity/Vol] 51 U/L Normal 30-104 [facility] Basic Metabolic Panlon 07-10 Anion gap [Moles/Vol] 10 mmol/L Normal 9-18 [facility] Calcium [Mass/Vol] 8.5 mg/dL Normal 8.5-10.2 [facility] Chloride [Moles/Vol] 106 mmol/L High 97-105 [facility] CO2 [Moles/Vol] 21 mmol/L Low 22-30 [facility] Creatinine [Mass/Vol] 2.80 mg/dL High 0.73-1.22 [facility] eGFR- Amer. 31 Normal [facility] eGFR-All Other Races 26 . Normal [facility] Comment on above: Result Comment: eGFR [...] [email or web address]/gfr_calculator. Glucose [Mass/Vol] 126 mg/dL High 74-99 [facility] Comment on above: Result Comment: The [place] Diabetes Association (ADA) provides guidance for cutoff [...] Standards of Medical Care in Diabetes 2016, [place] Diabetes Association. Diabetes Care. 2016.39(Suppl 1). Potassium [Moles/Vol] 3.5 mmol/L Low 3.7-5.1 [facility] Sodium [Moles/Vol] 137 mmol/L Normal 136-144 [facility] Urea nitrogen [Mass/Vol] 13 mg/dL Normal 9-24 [facility] CONSULT PROGon 07-10-2021 CONSULT PROG HNO ID: [id number] Author: Justin Glasgow PA-C Service: Pain Management Author Type: Physician Fire Hazard Inspector Type: Consult Progress Note Filed: 07/10/2021 12:38 [...] Pain scores overnight between 4-7/10 per Vital Chief Legal Officer. The patient's current inpatient analgesic regimen [...] Garrido, PA-C July 10, 2021 12:38 PM [facility] CONSULT PROG HNO ID: [id number] Author: Spike Gandara MD Service: Nephrology Author Type: Physician Type: Consult Progress Note Filed: 07/10/2021 11:42 AM Note Text: [facility] NEPHROLOGY CONSULT PROGRESS NOTE SERVICE DATE: [...] stenosis, seem by GI, pending transfer to [facility] ? 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 Performed By: #### F K506 ####[facility] [address] [place], [place] [phone] [facility] 07-09-2021 ALLIED HEALTH HNO ID: [id number] Author: RT Kristyn(R) Service: ? Author Type: [...] Kristyn(R) July 08, 2021 11:17 PM Normal [facility] CASE MANAGEMon 07-09-2021 CASE MANAGEM HNO ID: [id number] Author: Nanette Dangelo RN Service: ? Author [...] 2021 TIME: 6:19 PM PAGER/CONTACT #: Normal [facility] CBC and Differentialon 07-09 Abs Baso 0.00 k/uL Normal <0.11 [facility] Abs Tate 1.28 k/uL High <0.87 [facility] Abs Neut 7.42 k/uL Normal 1.45-7.50 [facility] ANC(includeSEG+BAND) 7.42 k/uL Normal [facility] Anisocytosis Ql (Bld) Present Normal [facility] Basophils/100 WBC (Bld) 0.0 % Normal [facility] DTYPE Manual Diff Normal [facility] Eosinophils (Bld) [#/Vol] 0.00 10*3/uL Normal <0.46 [facility] Eosinophils/100 WBC (Bld) 0.0 % Normal [facility] Erythrocyte distribution width (RBC) [Ratio] 15.6 % High 11.5-15.0 [facility] Hematocrit (Bld) [Volume fraction] 26.3 % Low 39.0-51.0 [facility] Hemoglobin (Bld) [Mass/Vol] 9.1 g/dL Low 13.0-17.0 [facility] Left Shift Present Normal [facility] Lymphocytes (Bld) [#/Vol] 0.37 10*3/uL Low 1.00-4.00 [facility] Lymphocytes/100 WBC (Bld) 4.0 % Normal [facility] MCH 35.0 pG High 26.0-34.0 [facility] MCHC (RBC) [Mass/Vol] 34.6 g/dL Normal 30.5-36.0 [facility] MCV (RBC) [Entitic vol] 101.2 fL High 80.0-100.0 [facility] Monocytes/100 WBC (Bld) 14.0 % Normal [facility] Myelo% 1.0 % Normal [facility] Neutrophils/100 WBC (Bld) 81.0 % Normal [facility] Platelet Estimate Platelet estimate decreased Normal [facility] Platelet mean volume (Bld) [Entitic vol] 12.3 fL Normal 9.0-12.7 [facility] Platelets (Bld) [#/Vol] 59 10*3/uL Low 150-400 [facility] Polychromasia Slight Normal [facility] RBC (Bld) [#/Vol] 2.60 10*6/uL Low 4.20-6.00 [facility] WBC (Bld) [#/Vol] 9.16 10*3/uL Normal 3.70-11.00 [facility] CONSULT PROGon 07-09-2021 CONSULT PROG HNO ID: [id number] Author: Justin Glasgow PA-C Service: Pain Management Author Type: Physician Fire Hazard Inspector Type: Consult Progress Note Filed: 07/09/2021 3:41 [...] Pain scores overnight between 4-8/10 per Vital Chief Legal Officer. The patient's current inpatient analgesic regimen [...] PA-C July 09, 2021 3:41 PM Normal [facility] CONSULT PROG HNO ID: [id number] Author: Ana Cotton APRN.HERNANDEZ Service: Gastroenterology Author [...] Pt continues to wait for bed at [facility], pt will likely still be inpatient for few days while monitoring kidney function and tacro levels if does not get a bed still at that time and tolerating diet can likely get scheduled for ERCP at [facility] as outpatient Will continue to monitor peripherally Normal [facility] CONSULT PROG HNO ID: [id number] Author: Spike Gandara MD Service: Nephrology Author Type: Physician Type: Consult Progress Note Filed: 07/09/2021 12:32 PM Note Text: [facility] NEPHROLOGY CONSULT PROGRESS NOTE SERVICE DATE: [...] stenosis, seem by GI, pending transfer to [facility] ? 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 Changes or additions to the note are indicated by italics and . Valencia Noguera, Pharmacist 07/09/2021 7:54 AM Ext: [phone] [facility] CONSULT PROG HNO ID: [id number] Author: Lei Mckoy [facility] Service: Pharmacy Author Type: Pharmacist Type: [...] have any questions, please contact pharmacy at [phone]. Age: [age] year old Allergies: ALLERGIES Allergen [...] 18.6 07/07/2021 2002 37.3 (H) Lei Mckoy, [facility] Normal [facility] Comp Metabolic Panelon 07-09 Albumin [Mass/Vol] 2.9 g/dL Low 3.9-4.9 [facility] ALP [Catalytic activity/Vol] 63 U/L Normal 38-113 [facility] ALT [Catalytic activity/Vol] 16 U/L Normal 10-54 [facility] Anion gap [Moles/Vol] 8 mmol/L Low 9-18 [facility] AST [Catalytic activity/Vol] 17 U/L Normal 14-40 [facility] Bilirubin [Mass/Vol] 1.0 mg/dL Normal 0.2-1.3 [facility] Calcium [Mass/Vol] 8.0 mg/dL Low 8.5-10.2 [facility] Chloride [Moles/Vol] 109 mmol/L High 97-105 [facility] CO2 [Moles/Vol] 20 mmol/L Low 22-30 [facility] Creatinine [Mass/Vol] 2.83 mg/dL High 0.73-1.22 [facility] eGFR- Amer. 31 Normal [facility] eGFR-All Other Races 26 . Normal [facility] Comment on above: Result Comment: eGFR [...] [email or web address]/gfr_calculator. Glucose [Mass/Vol] 174 mg/dL High 74-99 [facility] Comment on above: Result Comment: The [place] Diabetes Association (ADA) provides guidance for cutoff [...] Standards of Medical Care in Diabetes 2016, [place] Diabetes Association. Diabetes Care. 2016.39(Suppl 1). Potassium [Moles/Vol] 3.8 mmol/L Normal 3.7-5.1 [facility] Protein [Mass/Vol] 5.1 g/dL Low 6.3-8.0 [facility] Sodium [Moles/Vol] 137 mmol/L Normal 136-144 [facility] Urea nitrogen [Mass/Vol] 16 mg/dL Normal 9-24 [facility] MRI BRAIN WO IVCONon 021 MRI BRAIN WO IVCON * * *Final Report* * * DATE OF EXAM: Jul 08 2021 11:28PM [facility] 0294 - MRI BRAIN WO IVCON / [...] if there is concern for demyelinating disease. Dental Instrument Maker: PSCZay Transcribe Date/Time: Jul 09 2021 2:02A Dictated by : CARLOS ALEJANDRA MD This examination was interpreted and the report reviewed and electronically signed by: CARLOS ALEJANDRA MD on Jul 09 2021 2:09AM EST [id number] Normal [facility] Magnesiumon 07-09-2021 Magnesium [Mass/Vol] 1.8 mg/dL Normal 1.7-2.3 [facility] NURSING PROGon 07-09-2021 NURSING PROG HNO ID: [id number] Author: Demetrice Chacon RN Service: Nursing Author [...] note was completed by: Demetrice Chacon Normal [facility] Protein/Creatinine Ratioon 1 09-09-2020 Creatinine,Urine,Ran 68.3 mg/dL Normal 20-300 [facility] Comment on above: Performed By: #### P RATIO ####[facility] [place], [place] [phone] Protein (U) [Mass/Vol] 7 mg/dL Normal 0-20 [facility] Comment on above: Performed By: #### P RATIO ####[facility] [address] [place], [place] [phone] Protein/Creatinine Ratio 0.1 Normal <0.2 [facility] Comment on above: Performed By: #### P RATIO ####[facility] [place], [place] [phone] Urinalysis with Microscopico n 07-09-2021 Bilirubin, Urine Negative Normal Negative [facility] Cast SEE COMMENT Normal 0 [facility] Comment on above: Result Comment: 0 Clarity (U) Clear Normal Clear [facility] Color (U) Yellow Normal Yellow [facility] Glucose Ql (U) 1+ mg/dL Critically abnormal Negative [facility] Hemoglobin/Blood,Ur Negative Normal Negative [facility] Ketones Ql (U) Negative Normal Negative [facility] Leukest Negative Normal Negative [facility] Nitrite Ql (U) Negative Normal Negative [facility] pH (U) 5.5 [pH] Normal 5.0-8.0 [facility] Protein, Urine Trace Critically abnormal Negative [facility] RBC 0-3 Normal 0-3 [facility] Specific [place], Ur 1.010 Normal 1.005-1.030 [facility] Urobilinogen Qn (U) 0.2 {Andrea'U}/dL Normal 0.2-1.0 [facility] WBC 0-5 Normal 0-5 [facility] ALLIED HEALTHon 07-08-2021 ALLIED HEALTH HNO ID: [id number] Author: Joshua Moran Service: Spiritual Care Author Type: ? Type: Allied Health Filed: 07/08/2021 1:06 PM Note Text: SPIRITUAL CARE PROGRESS NOTE SERVICE DATE: 07/08/2021 SERVICE TIME: 12:45PM Pt listed as [employer] in [facility], and he shared that he and his family attend the Chapel in [place], [place]; pt in good spirits but drowsy at the time of visit; shared that he has undergone a liver transplant, and is now dealing with pancreatitis; provided him with a daily devotional for his use, and offered a blessing bedside; no follow-up planned unless requested. To contact the Spiritual Care Department: Please call Ext [phone] SIGNATURE: Joshua Moran PATIENT NAME: Chuckie Villalta DATE: July 08, 2021 TIME: 1:04 PM PAGER/CONTACT #: [phone] Normal [facility] CBC and Differentialon 07-08 Abs Baso 0.00 k/uL Normal <0.11 [facility] Abs Tate 1.25 k/uL High <0.87 [facility] Abs Neut 6.26 k/uL Normal 1.45-7.50 [facility] ANC(includeSEG+BAND) 6.26 k/uL Normal [facility] Anisocytosis Ql (Bld) Present Normal [facility] Basophils/100 WBC (Bld) 0.0 % Normal [facility] DTYPE Manual Diff Normal [facility] Eosinophils (Bld) [#/Vol] 0.00 10*3/uL Normal <0.46 [facility] Eosinophils/100 WBC (Bld) 0.0 % Normal [facility] Erythrocyte distribution width (RBC) [Ratio] 15.7 % High 11.5-15.0 [facility] Hematocrit (Bld) [Volume fraction] 26.0 % Low 39.0-51.0 [facility] Hemoglobin (Bld) [Mass/Vol] 9.0 g/dL Low 13.0-17.0 [facility] Left Shift Present Normal [facility] Lymphocytes (Bld) [#/Vol] 0.23 10*3/uL Low 1.00-4.00 [facility] Lymphocytes/100 WBC (Bld) 3.0 % Normal [facility] MCH 35.4 pG High 26.0-34.0 [facility] MCHC (RBC) [Mass/Vol] 34.6 g/dL Normal 30.5-36.0 [facility] MCV (RBC) [Entitic vol] 102.4 fL High 80.0-100.0 [facility] Monocytes/100 WBC (Bld) 16.0 % Normal [facility] Myelo% 1.0 % Normal [facility] Neutrophils/100 WBC (Bld) 80.0 % Normal [facility] Platelet Estimate Platelet estimate decreased Normal [facility] Platelet mean volume (Bld) [Entitic vol] 12.3 fL Normal 9.0-12.7 [facility] Platelets (Bld) [#/Vol] 39 10*3/uL Low 150-400 [facility] Polychromasia Slight Normal [facility] RBC (Bld) [#/Vol] 2.54 10*6/uL Low 4.20-6.00 [facility] WBC (Bld) [#/Vol] 7.82 10*3/uL Normal 3.70-11.00 [facility] CONSULTon 07-08-2021 CONSULT HNO ID: [id number] Author: Justin Glasgow PA-C Service: Pain Management Author Type: Physician Fire Hazard Inspector Type: Consults Filed: 07/08/2021 2:06 PM Note Text: PAIN MANAGEMENT CONSULT -- [facility] PATIENT NAME: Chuckie Villalta DATE [...] is consulted RE: acute pancreatitis, on fentanyl 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 Jolynn Jaquez and Lisseth Raymond [...] (PF) 4 mg injection (ZOFRAN) - fentaNYL MAGNETIZER 20 mcg/mL in NaCl 0.9% 100 mL [...] 167* TP (more content not included)... Normal [facility] CONSULT HNO ID: [id number] Author: Spike Gandara MD Service: Nephrology Author Type: Physician Type: Consults Filed: 07/08/2021 2:05 PM Note Text: [facility] NEPHROLOGY AND HYPERTENSION [facility] SERVICE DATE: July [...] injection (ZOF (more content not included)... Normal [facility] CONSULT PROGon 07-08-2021 CONSULT PROG HNO ID: [id number] Author: Ana Cotton APRN.PALEONTOLOGY TEACHER Service: Gastroenterology Author Type: Nurse Practitioner Type: [...] Splenomegaly. Trace ascites Plan for transfer to [facility] main (extensive medical hx - hemachromatosis, s/p liver transplant with mild rejection soon after transplant +anastomosis stricture s/p multiple ERCPs in the past, last being 06/2020 If pt continues to improve, kidney function and labs improve and able to advance diet could possibly discharge with outpatient follow up. Will discuss with staff and SM Dr. Quezada as well. Normal [facility] Calcium, Ionizedon Calcium, Ionized 1.12 mmol/L Normal 1.08-1.30 [facility] Comp Metabolic Panelon 07-08 Albumin [Mass/Vol] 2.9 g/dL Low 3.9-4.9 [facility] ALP [Catalytic activity/Vol] 60 U/L Normal 38-113 [facility] ALT [Catalytic activity/Vol] 22 U/L Normal 10-54 [facility] Anion gap [Moles/Vol] 8 mmol/L Low 9-18 [facility] AST [Catalytic activity/Vol] 38 U/L Normal 14-40 [facility] Bilirubin [Mass/Vol] 1.6 mg/dL High 0.2-1.3 [facility] Calcium [Mass/Vol] 8.0 mg/dL Low 8.5-10.2 [facility] Chloride [Moles/Vol] 106 mmol/L High 97-105 [facility] CO2 [Moles/Vol] 18 mmol/L Low 22-30 [facility] Creatinine [Mass/Vol] 2.34 mg/dL High 0.73-1.22 [facility] eGFR- Amer. 39 Normal [facility] eGFR-All Other Races 32 . Normal [facility] Comment on above: Result Comment: eGFR [...] [email or web address]. Glucose [Mass/Vol] 107 mg/dL High 74-99 [facility] Comment on above: Result Comment: The [place] Diabetes Association (ADA) provides guidance for cutoff [...] Standards of Medical Care in Diabetes 2016, [place] Diabetes Association. Diabetes Care. 2016.39(Suppl 1). Potassium [Moles/Vol] 3.9 mmol/L Normal 3.7-5.1 [facility] Protein [Mass/Vol] 4.9 g/dL Low 6.3-8.0 [facility] Sodium [Moles/Vol] 132 mmol/L Low 136-144 [facility] Urea nitrogen [Mass/Vol] 17 mg/dL Normal 9-24 [facility] Lipaseon 07-08-2021 Lipase [Catalytic activity/Vol] 235 U/L High 16-61 [facility] Magnesiumon 07-08-2021 Magnesium [Mass/Vol] 1.4 mg/dL Low 1.7-2.3 [facility] Tacrolimus / [id number] Tacrolimus / FK506 23.3 ng/mL High 5.0-20.0 [facility] Comment on above: Result Comment: Thes [...] Test performed by chemiluminescent immunoassay using Schuler Microfilm Machine Operator. Performed By: #### F K506 ####[facility] [id number] [place], [place] [phone] US ABD RIGHT UPPER QUADRANTo n 07-08-2021 US ABD RIGHT UPPER QUADRANT * * *Final Report* * * DATE OF EXAM: Jul 08 2021 12:08PM [facility] 1032 - US ABD RIGHT UPPER [...] 5. Trace ascites in the upper abdomen. Dental Instrument Maker: PSCZay Transcribe Date/Time: Jul 08 2021 12:28P Dictated by : ROCIO MANZO MD This examination was interpreted and the report reviewed and electronically signed by: ROCIO MANZO MD on Jul 08 2021 12:32PM EST [id number] Normal [facility] US ABD SPLEEN -NBon 07-08-20 21 US ABD SPLEEN -NB * * *Final Report* * * DATE OF EXAM: Jul 08 2021 12:08PM [facility] 1232 - US ABD SPLEEN -NB [...] 5. Trace ascites in the upper abdomen. Dental Instrument Maker: [facility] Transcribe Date/Time: Jul 08 2021 12:28P Dictated by : ROCIO MANZO MD This examination was interpreted and the report reviewed and electronically signed by: ROCIO MANZO MD on Jul 08 2021 12:32PM EST [id number] Normal [facility] Vancomycin 07-08-2021 Vancomycin 18.6 ug/mL Normal 10.0-20.0 [facility] Comment on above: Result Comment: Refe rence ranges and high/low indicator flags are provided as general guidelines only. The treating physician must determine appropriate target levels/dosing based on the specific clinical situation. CBCon 07-07-2021 Absolute nRBC 0.03 k/uL High <0.01 [facility] Erythrocyte distribution width (RBC) [Ratio] 15.7 % High 11.5-15.0 [facility] Hematocrit (Bld) [Volume fraction] 29.1 % Low 39.0-51.0 [facility] Hemoglobin (Bld) [Mass/Vol] 10.5 g/dL Low 13.0-17.0 [facility] MCH 36.2 pG High 26.0-34.0 [facility] MCHC (RBC) [Mass/Vol] 36.1 g/dL High 30.5-36.0 [facility] MCV (RBC) [Entitic vol] 100.3 fL High 80.0-100.0 [facility] Platelet mean volume (Bld) [Entitic vol] 11.8 fL Normal 9.0-12.7 [facility] Platelets (Bld) [#/Vol] 45 10*3/uL Low 150-400 [facility] RBC (Bld) [#/Vol] 2.90 10*6/uL Low 4.20-6.00 [facility] WBC (Bld) [#/Vol] 9.23 10*3/uL Normal 3.70-11.00 [facility] CONSULT PROGon 07-07-2021 CONSULT PROG HNO ID: [id number] Author: Valencia Noguera RP Service: Pharmacy Author [...] have any questions, please contact pharmacy at [phone]. Age: [age] year old Allergies: ALLERGIES Allergen [...] Value 07/07/2021 2002 37.3 (H) Valencia Noguera, [facility] Normal [facility] Comp Metabolic Panelon 07-07 Albumin [Mass/Vol] 3.0 g/dL Low 3.9-4.9 [facility] ALP [Catalytic activity/Vol] 70 U/L Normal 38-113 [facility] ALT [Catalytic activity/Vol] 41 U/L Normal 10-54 [facility] Anion gap [Moles/Vol] 9 mmol/L Normal 9-18 [facility] AST [Catalytic activity/Vol] 131 U/L High 14-40 [facility] Bilirubin [Mass/Vol] 4.9 mg/dL High 0.2-1.3 [facility] Calcium [Mass/Vol] 7.9 mg/dL Low 8.5-10.2 [facility] Chloride [Moles/Vol] 105 mmol/L Normal 97-105 [facility] CO2 [Moles/Vol] 18 mmol/L Low 22-30 [facility] Creatinine [Mass/Vol] 1.63 mg/dL High 0.73-1.22 [facility] eGFR- Amer. 59 Normal [facility] eGFR-All Other Races 48 . Normal [facility] Comment on above: Result Comment: eGFR [...] [email or web address]/gfr_[email or web address]. Glucose [Mass/Vol] 110 mg/dL High 74-99 [facility] Comment on above: Result Comment: The [place] Diabetes Association (ADA) provides guidance for cutoff [...] Standards of Medical Care in Diabetes 2016, [place] Diabetes Association. Diabetes Care. 2016.39(Suppl 1). Potassium [Moles/Vol] 4.1 mmol/L Normal 3.7-5.1 [facility] Protein [Mass/Vol] 5.0 g/dL Low 6.3-8.0 [facility] Sodium [Moles/Vol] 132 mmol/L Low 136-144 [facility] Urea nitrogen [Mass/Vol] 15 mg/dL Normal 9-24 [facility] NURSING PROGon 07-07-2021 NURSING PROG HNO ID: [id number] Author: Preethi Slater RN Service: Nursing Author Type: Registered Nurse Type: Nursing Progress Note Filed: 07/06/2021 11:25 PM Note Text: Nursing Progress Note Patient Name: Chuckie Villalta Patient Location: [id number] Transfer Note: Patient transferred from [facility] to [facility] Room 414 by bed in stable condition with IV fluids, IV antibiotics, and a MAGNETIZER pump with on demand fentanyl. Vital signs obtained, patient oriented to room. Call light within reach. This note was completed by: Preethi Slater RN [facility] NURSING PROG HNO ID: [id number] Author: Delilah Le RN Service: Nursing Author Type: Registered Nurse Type: Nursing Progress Note Filed: 07/06/2021 10:24 PM Note Text: Report called to room 414 Vicenta RENAE patient aware of tranfer. Belongings with patient , transferred juanpablo new room with RN in bed, vs stable. Normal [facility] Vancomycinon 07-07-2021 Vancomycin 37.3 ug/mL High 10.0-20.0 [facility] Comment on above: Result Comment: Refe rence ranges and high/low indicator flags are provided as general guidelines only. The treating physician must determine appropriate target levels/dosing based on the specific clinical situation. CASE MGT INIT [facility] 2020 CASE MGT INIT [facility] HNO ID: [id number] Author: Mariluz Salamanca RN Service: Nursing Author Type: Registered Nurse Type: Care Mgt Initial Assessment Filed: 07/06/2021 2:04 PM Note Text: CARE MANAGEMENT: ASSESSMENT AND DISCHARGE PLAN SERVICE DATE: July 06, 2021 SERVICE TIME: 1:59 PM PRIMARY CARE PHYSICIAN: Luis Abdalla DO ADMISSION STATUS: Inpatient MEDICAL: [facility] MEDICAID Health Insurance: [facility] ([facility] Plan Medicaid) Last Discharge Date: 02/13/20 Is this Within the Past 30 days? Advance Directive: Current Advance Directive: Health Care Power of Dump Grounds Checker In Chart: Yes Up To Date and Valid: Yes Baseline Mental Status Prior to this Illness what was the patient's Baseline Mental Status?: Alert AND Oriented Prior to this illness, has anyone described the patient having any of the following behaviors?: Not Applicable Relationship of the informant to the patient:: Self Primary Contact: Extended Emergency Contact Information Primary Emergency Contact: Remedios Villalta Address: [address] [place] [address] [place] Relation: Spouse Supportive Patient Contact:: Yes Contact Resources: Family;Significant Other FREEDOM OF CHOICE EXPLAINED: [place] of Choice Given: No Reason Not Given: [...] 06, 2021 TIME: 1:59 PM PAGER/CONTACT #: [phone] Normal [facility] CBC and Differentialon 07-06 Abs Baso 0.00 k/uL Normal <0.11 [facility] Abs Tate 0.64 k/uL Normal <0.87 [facility] Abs Neut 8.13 k/uL High 1.45-7.50 [facility] ANC(includeSEG+BAND) 8.13 k/uL Normal [facility] Basophils/100 WBC (Bld) 0.0 % Normal [facility] DTYPE Manual Diff Normal [facility] Eosinophils (Bld) [#/Vol] 0.09 10*3/uL Normal <0.46 [facility] Eosinophils/100 WBC (Bld) 1.0 % Normal [facility] Erythrocyte distribution width (RBC) [Ratio] 14.6 % Normal 11.5-15.0 [facility] Hematocrit (Bld) [Volume fraction] 30.9 % Low 39.0-51.0 [facility] Hemoglobin (Bld) [Mass/Vol] 11.4 g/dL Low 13.0-17.0 [facility] Left Shift Present Normal [facility] Lymphocytes (Bld) [#/Vol] 0.27 10*3/uL Low 1.00-4.00 [facility] Lymphocytes/100 WBC (Bld) 3.0 % Normal [facility] MCH 35.0 pG High 26.0-34.0 [facility] MCHC (RBC) [Mass/Vol] 36.9 g/dL High 30.5-36.0 [facility] MCV (RBC) [Entitic vol] 94.8 fL Normal 80.0-100.0 [facility] Monocytes/100 WBC (Bld) 7.0 % Normal [facility] Neutrophils/100 WBC (Bld) 89.0 % Normal [facility] Platelet Estimate Platelet estimate decreased Normal [facility] Platelet mean volume (Bld) [Entitic vol] 11.3 fL Normal 9.0-12.7 [facility] Platelets (Bld) [#/Vol] 63 10*3/uL Low 150-400 [facility] RBC (Bld) [#/Vol] 3.26 10*6/uL Low 4.20-6.00 [facility] Red Cell Morph SEE COMMENT Normal [facility] Comment on above: Result Comment: Unre markable WBC (Bld) [#/Vol] 9.13 10*3/uL Normal 3.70-11.00 [facility] CONSULTon 07-06-2021 CONSULT HNO ID: [id number] Author: Og Gibbs MD Service: Gastroenterology Author [...] and hi s transferring the patient to [facility] giving his complex medica history and the need for repeated ERCP Dr. Wilburn reviewed the case too and agreed to transfer the patient to for further care Normal [facility] CONSULT Tanisha 07-06-2021 CONSULT PROG HNO ID: [id number] Author: Pearl Mann RPh Service: Pharmacy Author [...] any questions, please contact Pharmacy at ex [phone]. Age: [age] year old Allergies: ALLERGIES Allergen [...] Vancomycin Levels: No results found for: CHIDI Mnan, [facility] Normal [facility] Comp Metabolic Panelon 07-06 Albumin [Mass/Vol] 3.5 g/dL Low 3.9-4.9 [facility] ALP [Catalytic activity/Vol] 60 U/L Normal 38-113 [facility] ALT [Catalytic activity/Vol] 60 U/L High 10-54 [facility] Anion gap [Moles/Vol] 15 mmol/L Normal 9-18 [facility] AST [Catalytic activity/Vol] 361 U/L High 14-40 [facility] Bilirubin [Mass/Vol] 6.6 mg/dL High 0.2-1.3 [facility] Calcium [Mass/Vol] 7.8 mg/dL Low 8.5-10.2 [facility] Chloride [Moles/Vol] 102 mmol/L Normal 97-105 [facility] CO2 [Moles/Vol] 15 mmol/L Low 22-30 [facility] Creatinine [Mass/Vol] 1.73 mg/dL High 0.73-1.22 [facility] eGFR- Amer. 55 Normal [facility] eGFR-All Other Races 45 . Normal [facility] Comment on above: Result Comment: eGFR [...] [email or web address]/gfr_calculator. Glucose [Mass/Vol] 129 mg/dL High 74-99 [facility] Comment on above: Result Comment: The [place] Diabetes Association (ADA) provides guidance for cutoff [...] Standards of Medical Care in Diabetes 2016, [place] Diabetes Association. Diabetes Care. 2016.39(Suppl 1). Potassium [Moles/Vol] 4.3 mmol/L Normal 3.7-5.1 [facility] Protein [Mass/Vol] 5.2 g/dL Low 6.3-8.0 [facility] Sodium [Moles/Vol] 132 mmol/L Low 136-144 [facility] Urea nitrogen [Mass/Vol] 17 mg/dL Normal 9-24 [facility] ED NOTEon 07-06-2021 ED NOTE HNO ID: [id number] Author: Marcela Corley RN Service: Nursing Author Type: Registered Nurse Type: ED Notes Filed: 07/06/2021 4:57 AM Note Text: Report to Loraine RENAE. Normal [facility] ED NOTE HNO ID: [id number] Author: Marcela Corley RN Service: Nursing Author Type: Registered Nurse Type: ED Notes Filed: 07/06/2021 4:51 AM Note Text: Pt resting in bed at this time. Call light within reach, will continue to monitor. [facility] Expedited [id number] 07-06-20 SARS-CoV-2 (COVID-19) RNA NOLBERTO+probe Ql (Unsp spec) UPPER RESPIRATORY TRACT SWAB Normal [facility] SARS-CoV-2 (COVID-19) RNA NOLBERTO+probe Ql (Unsp spec) Negative for COVID19 (SARS CoV2) by RT-PCR or equivalent method. Normal Negative for COVID19 (SARS CoV2) by RT-PCR or equivalent method. [facility] Comment on above: Result Comment: This test has been authorized by FDA under an Emergency Use Authorization (EUA). Lipaseon 07-06-2021 Lipase [Catalytic activity/Vol] 1496 U/L High 16-61 [facility] Magnesiumon 07-06-2021 Magnesium [Mass/Vol] 1.2 mg/dL Low 1.7-2.3 [facility] NURSING PROGon 07-06-2021 NURSING PROG HNO ID: [id number] Author: Loraine Ya RN Service: Nursing Author Type: Registered Nurse Type: Nursing Progress Note Filed: 07/06/2021 6:31 AM Note Text: Nursing Progress Note Patient Name: Chuckie Villalta Patient Location: [place] [address] Transfer Note: Patient transferred into room/unit 426 in stable condition. Actions taken: Report given by Marceal RENAE. No futher actions taken at this time. Will continue to monitor and check with patient. Patient belongings with patient oriented to room, answered questions, denies needs at this time. This note was completed by: Loraine Ya Normal [facility] XR CHEST 1V FRONTAL PORTon 1 [...] are detected. IMPRESSION: No acute radiographic abnormality. Dental Instrument Maker: GUILLE Transcribe Date/Time: Jul 05 2021 11:38P Dictated by : RIK YUN MD This examination was interpreted and the report reviewed and electronically signed by: RIK YUN MD on Jul 05 2021 11:39PM EST [id number] Normal [facility] APTTon 07-05-2021 aPTT Coag (Bld) [Time] 22.6 s Low 23.0-32.4 [facility] Comment on above: Result Comment: Unfr [...] laboratory APTT reagent in use throughout the [facility]. Acetaminophenon 07-05-2021 Acetaminophen [Mass/Vol] ug/mL Low 10-30 [facility] Comment on above: Result Comment: Toxi c > 150 ug/mL 4 hours post ingestion The Ginger Akins nomogram can be used to estimate the probability of hepatotoxicity via the relationship of plasma acetaminophen concentration to the post ingestion interval. (Gareth. Pediatrics. 1975. 55:871 to 876 and Ginger et al. Arch Relief Pilot Med. 1981. 141:380 to 385). Reference ranges and high/low indicator flags are provided as general guidelines only. The treating physician must determine appropriate target levels/dosing based on the specific clinical situation. Blood Cultureon 07-05-2021 Bacteria identified Cx Nom (Bld) Culture Result - No growth 5 days Normal [facility] Comment on above: Performed By: #### B LCUL ####[place] [phone] CBC and Differentialon 07-05 Abs Baso 0.00 k/uL Normal <0.11 [facility] Comment on above: Performed By: #### C BCDIF ####[place] [address] [place] [phone] Abs Tate 0.97 k/uL High <0.87 [facility] Comment on above: Performed By: #### C BCDIF ####[place] [phone] Abs Neut 28.35 k/uL High 1.45-7.50 [facility] Comment on above: Performed By: #### C BCDIF ####[place] [address] [place] [phone] Anisocytosis Ql (Bld) Present Normal [facility] Comment on above: Performed By: #### C BCDIF ####[place] [phone] Basophils/100 WBC (Bld) 0.0 % Normal [facility] Comment on above: Performed By: #### C BCDIF ####[place] [address] [place] [phone] DTYPE Manual Diff Normal [facility] Comment on above: Performed By: #### C BCDIF ####[place] [phone] Eosinophils (Bld) [#/Vol] 0.00 10*3/uL Normal <0.46 [facility] Comment on above: Performed By: #### C BCDIF ####[place] [address] [place] [phone] Eosinophils/100 WBC (Bld) 0.0 % Normal [facility] Comment on above: Performed By: #### C BCDIF ####[address] [phone] Erythrocyte distribution width (RBC) [Ratio] 15.1 % High 11.5-15.0 [facility] Comment on above: Performed By: #### C BCDIF ####[address] [phone] Hematocrit (Bld) [Volume fraction] 43.2 % Normal 39.0-51.0 [facility] Comment on above: Performed By: #### C BCDIF ####[address] [phone] Hemoglobin (Bld) [Mass/Vol] 16.2 g/dL Normal 13.0-17.0 [facility] Comment on above: Performed By: #### C BCDIF ####[address] [phone] Lymphocytes (Bld) [#/Vol] 0.00 10*3/uL Low 1.00-4.00 [facility] Comment on above: Performed By: #### C BCDIF ####[address] [phone] Lymphocytes/100 WBC (Bld) 0.0 % Normal [facility] Comment on above: Performed By: #### C BCDIF ####[address] [phone] MCH 35.1 pG High 26.0-34.0 [facility] Comment on above: Performed By: #### C BCDIF ####[address] [phone] MCHC (RBC) [Mass/Vol] 37.5 g/dL High 30.5-36.0 [facility] Comment on above: Performed By: #### C BCDIF ####[facility] [place] [address], [place] [phone] MCV (RBC) [Entitic vol] 93.7 fL Normal 80.0-100.0 [facility] Comment on above: Performed By: #### C BCDIF ####[place] [address] [address] [facility]Cs[facility] centerandLos [place], [place] [phone] Monocytes/100 WBC (Bld) 3.3 % Normal [facility] Comment on above: Performed By: #### C BCDIF ####[place] [address] [address], [place] [phone] Neutrophils/100 WBC (Bld) 96.7 % Normal [facility] Comment on above: Performed By: #### C BCDIF ####[place] [address] [address], [place] [phone] Platelet Estimate Platelet estimate adequate Normal [facility] Comment on above: Performed By: #### C BCDIF ####[place] [address] [address], [place] [phone] Platelet mean volume (Bld) [Entitic vol] 11.6 fL Normal 9.0-12.7 [facility] Comment on above: Performed By: #### C BCDIF ####[place] [address] [address], [place] [phone] Platelets (Bld) [#/Vol] 173 10*3/uL Normal 150-400 [facility] Comment on above: Performed By: #### C BCDIF ####[place] [address] [address], [place] [phone] Polychromasia Slight Normal [facility] Comment on above: Performed By: #### C BCDIF ####[place] [address] [address]ClevelPu[address] [place], [place] [phone] RBC (Bld) [#/Vol] 4.61 10*6/uL Normal 4.20-6.00 [facility] Comment on above: Performed By: #### C BCDIF ####[facility] [address] [place], [place] [phone] WBC (Bld) [#/Vol] 29.32 10*3/uL High 3.70-11.00 [facility] Comment on above: Result Comment: Resu lt checked and verified No clot detected. Performed By: #### C BCDIF ####[facility] [place], [place] [phone] CONSULT PROGon 07-05-2021 CONSULT PROG HNO ID: [id number] Author: Pearl Mann RPh Service: Pharmacy Author [...] any questions, please contact Pharmacy at ex [phone]. Age: [age] year old Allergies: ALLERGIES Allergen [...] Levels: No results found for: CHIDI Mann [facility] CT ABD/PEL WO IVCONon 2020 CT ABD/PEL WO IVCON * * *Final Report* * * DATE OF EXAM: Jul 05 2021 7:05PM [facility] 05[facility] - CT ABD/PEL WO [...] abnormality. Lumbosacral pars defects. Lower thorax: Unremarkable. Chief Legal Officer (topogram) images: No additional findings. IMPRESSION: Extensive pancreatitis with inflammatory changes surrounding the transverse colon, spleen and retroperitoneum. Small volume ascites is present. Extent of pancreatic necrosis cannot be assessed on a noncontrast examination. Dental Instrument Maker: GUILLE Transcribe Date/Time: Jul 05 2021 7:12P Dictated by : SPIKE FUNES MD This examination was interpreted and the report reviewed and electronically signed by: SPIKE FUNES MD on Jul 05 2021 7:23PM EST [id number] Normal [facility] Comp Metabolic Panelon 07-05 Albumin [Mass/Vol] 5.0 g/dL High 3.9-4.9 [facility] Comment on above: Performed By: #### C BCDIF ####[facility] [place], [place] [phone] ALP [Catalytic activity/Vol] 77 U/L Normal 38-113 [facility] Comment on above: Performed By: #### C BCDIF ####[facility] [place], [place] [phone] ALT [Catalytic activity/Vol] 34 U/L Normal 10-54 [facility] Comment on above: Performed By: #### C BCDIF ####[facility] [place], [place] [phone] Anion gap [Moles/Vol] 23 mmol/L High 9-18 [facility] Comment on above: Performed By: #### C BCDIF ####[place] [address] [address] [place] [phone] AST [Catalytic activity/Vol] 69 U/L High 14-40 [facility] Comment on above: Performed By: #### C BCDIF ####[place] [address] [address] [place] [phone] Bilirubin [Mass/Vol] 5.3 mg/dL High 0.2-1.3 [facility] Comment on above: Performed By: #### C BCDIF ####[place] [address] [address] [place] [phone] Calcium [Mass/Vol] 9.5 mg/dL Normal 8.5-10.2 [facility] Comment on above: Performed By: #### C BCDIF ####[place] [phone] Chloride [Moles/Vol] 92 mmol/L Low 97-105 [facility] Comment on above: Performed By: #### C BCDIF ####[place] [address] [place] [place] [phone] CO2 [Moles/Vol] 15 mmol/L Low 22-30 [facility] Comment on above: Performed By: #### C BCDIF ####[place] [address] [place] [place] [phone] Creatinine [Mass/Vol] 2.53 mg/dL High 0.73-1.22 [facility] Comment on above: Performed By: #### C BCDIF ####[place] [address] [place] [place] [phone] eGFR- Amer. 35 Normal [facility] Comment on above: Performed By: #### C BCDIF ####[place] [address] [place] [place] [phone] eGFR-All Other Races 29 . Normal [facility] Comment on above: Result Comment: eGFR [...] at [email or web address]/gfr_[email or web address]. Performed By: #### C BCDIF ####[facility], [place] [phone] Glucose [Mass/Vol] 167 mg/dL High 74-99 [facility] Comment on above: Result Comment: The [place] Diabetes Association (ADA) provides guidance for cutoff [...] Standards of Medical Care in Diabetes 2016, [place] [employer] Association. Diabetes Care. 2016.39(Suppl 1). Performed By: #### C BCDIF ####[facility] [place], [place] [phone] Potassium [Moles/Vol] 5.5 mmol/L High 3.7-5.1 [facility] Comment on above: Performed By: #### C BCDIF ####[facility] [address] [place], [place] [phone] Protein [Mass/Vol] 7.6 g/dL Normal 6.3-8.0 [facility] Comment on above: Performed By: #### C BCDIF ####[facility] [address] [place], [place] [phone] Sodium [Moles/Vol] 130 mmol/L Low 136-144 [facility] Comment on above: Performed By: #### C BCDIF ####[facility] [address] [place], [place] [phone] Urea nitrogen [Mass/Vol] 20 mg/dL Normal 9-24 [facility] Comment on above: Performed By: #### C BCDIF ####[facility] [place], [place] [phone] ED NOTEon 07-05-2021 ED NOTE HNO ID: [id number] Author: Max Styles RN Service: ? Author [...] bed in locked and low position Normal [facility] ED PROV NOTEon 07-05-2021 ED PROV NOTE HNO ID: [id number] Author: Will Mccormick DO Service: Emergency Medicine [...] mmol/L Lact (more content not included)... Normal [facility] ED Triage Noteon 07-05-2021 ED Triage Note HNO ID: [id number] Author: Brian Ash I, PA-C Service: Emergency Medicine Author Type: Physician Fire Hazard Inspector Type: ED Triage Notes Filed: 07/05/2021 6:11 [...] RUQ US SIGNATURE: Brian Ash PA-C Normal [facility] Ethanolon 07-05-2021 Ethanol [Mass/Vol] mg/dL Normal <11 [facility] Comment on above: Result Comment: Valu es > 80 mg/dL may indicate intoxication HISTORY PHYSICALon HISTORY PHYSICAL HNO ID: [id number] Author: Lisseth Raymond APRN.CNP Service: Hospital Medicine Author Type: Nurse Practitioner Type: HANDP Filed: 07/05/2021 9:37 PM Note Text: DEPARTMENT OF HOSPITAL MEDICINE HISTORY AND PHYSICAL EXAM SERVICE DATE: 07/05/2021 Code Status: Not on file SERVICE TIME: 9:27 PM Primary Care Physician: Luis Abdalla, NIGHT AND WEEKEND COVERAGE: [employer] COVER[employer]: Days: [phone], please contact via [employer] Nights: [phone], please page CC Hospitalist Night coverage pager [phone] Subjective CHIEF COMPLAINT: Epigastric pain going through [...] tests revie (more content not included)... Normal [facility] Lipaseon 07-05-2021 Lipase [Catalytic activity/Vol] 2781 U/L High 16-61 [facility] Comment on above: Performed By: #### C BCDIF ####[facility] [place], [place] [phone] Magnesiumon 07-05-2021 Magnesium [Mass/Vol] 0.8 mg/dL Low 1.7-2.3 [facility] Comment on above: Result Comment: No c all per procedure. 07/05/21 1847 Performed By: #### C BCDIF ####[facility] [address] [place], [place] [phone] Protimeon 07-05-2021 PT INR 1.3 Normal 0.9-1.3 [facility] Comment on above: Result Comment: Aster min K Antagonist (VKA) Therapeutic Range: INR 2 to 3 (Target INR of 2.5) Note: For patients treated with VKA drugs, such as warfarin, the [place] [employer] 2012 Guideline recommends [...] 252-289 PT Sec 14.0 sec High 9.7-13.0 [facility] Triglycerideon 07-05-2021 Fasting Time Unknown Normal [facility] Triglyceride [Mass/Vol] 463 mg/dL High <150 [facility] Troponin Ton 07-05-2021 Troponin T <0.010 Normal 0.000-0.029 [facility] Kaleb 02-25-2021 L --- Specimen: [id number] Received: 02/25/21 Status: LAYLAMarshal Rosana Num: [id number] Spec Type: Surgical Subm Dr: Josiah Pompa MD Tissues: A Disc - Intervertebral/Lumbar/C ervical (CERVICAL) Procedures: HE Stain, Gross/Micro L3 Patient Age/Sex Location Account Attending Physician Chuckie Villalta 35/M [place] [id number] Josiah Pompa MD SPEC NUM: [id number] RECD: 02/25/21 STATUS: LU ROSANA NUM: [id number] VJ: 02/25/21- [facility] DR: Josiah Pompa MD ENTERED: 02/25/[address] [facility] DR: LOUIE TYPE: Surgical DEPT: S ORDERED: [...] of montanez-pink, rubbery and ragged fibrous tissue. Pet Nutrition Specialist sections are submitted in one cassette labeled A1. (SM/YJ) Microscopic Description One glass slide with H E stained material has been examined. The microscopic findings support the above pathologic diagnosis. CPT Codes 92413 Specimen: [id number] Received: 02/25/21 Status: LU Rosana Num: [id number] Spec Type: Surgical Subm Dr: Josiah Pompa MD Tissues: A Disc - Intervertebral/Lumbar/C ervical (CERVICAL) Procedures: HE Stain, Gross/Micro L3 Patient: Chuckie Villalta [id number] (Continued) Signed (signature on file) Lucretia Lund MD 02/26/21 1655 [facility] XR cervical spine 1Von 02-25 XR cervical spine 1V [facility] Main [address] [address] XRay Report Signed Patient: Chuckie Villalta MR#: [id number] 56 : 1985 Acct:[id number] Age/Sex: 35 / M ADM Date: 02/25/21 Loc: Room: [address] [place] [address] Type: REG [place] Attending Dr: Josiah Pompa MD Ordering Provider: [...] Carlos Solano M.D.02/25/2021 4:31 PM Dictation Location: [place] [address] Transcribed By: [facility] 02/25/21 1631 Dictated By: Carlos Solano II, MD 02/25/21 1630 Signed By: 02/25/21 1631 [facility] Basic Metabolic Panelon 07-2 Calcium [Mass/Vol] 9.3 mg/dL Normal 8.2-10.2 [facility] Comment on above: Result Comment: PERF ORMED BY: [address] [address] PATHOLOGIST HEALTH CARE MANAGER ALFRED TRACY M.D. Performed By: #### B MP, CBC #### [facility] [address] [place] [address] [place] Chloride [Moles/Vol] 99 mmol/L Normal 95-114 [facility] Comment on above: Performed By: #### B MP, CBC #### [facility] [address] [place] [address] [place] CO2 [Moles/Vol] 20.5 mmol/L Low 22.0-30.0 [facility] Comment on above: Performed By: #### B MP, CBC #### [facility] [address] [place] [address] [place] Creatinine [Mass/Vol] 1.31 mg/dL High 0.64-1.27 [facility] Comment on above: Performed By: #### B MP, CBC #### [facility] [address] Estimated GFR ( Marissa > 60 Normal [facility] Comment on above: Result Comment: GFR estimated reference range: According to KDOQI guidelines, <60 ml/min/1.73m2 is sufficient to diagnose a patient with chronic kidney disease. Performed By: #### B MP, CBC #### [facility] [address] [place] [address] [place] Estimated GFR (Non- Am > 60 [facility] Comment on above: Performed By: #### B MP, CBC #### [facility] [address] [place] [address] [place] Glucose [Mass/Vol] 105 mg/dL High 70-100 [facility] Comment on above: Result Comment: [place] Glucose Reference Range is dependent on time and content of last meal. Glucose of more than 200 mg/dL in a nonstressed, ambulatory subject supports the diagnosis of Diabetes Mellitus. ADA recommended reference range Performed By: #### B MP, CBC #### [facility] [address] [place] [address] [place] Potassium [Moles/Vol] 4.4 mmol/L Normal 3.5-5.1 [facility] Comment on above: Performed By: #### B MP, CBC #### [facility] [address] [place] [address] [place] Sodium [Moles/Vol] 133 mmol/L Low 136-146 [facility] Comment on above: Performed By: #### B MP, CBC #### [facility] [address] Urea nitrogen [Mass/Vol] 11 mg/dL Normal 9-23 [facility] Comment on above: Performed By: #### B MP, CBC #### [facility] [address] COVID-19 FRon 02-21-2021 SARS-CoV-2 (COVID-19) RNA NOLBERTO+probe Ql (Unsp spec) Negative Normal Negative [facility] Comment on above: Order Comment: Healt hcare Worker?: N Result Comment: Testing for SARS-CoV-2 by RT-PCR This test was developed and its performance characteristics determined by [employer] and validated at the [facility]. This test has not been FDA cleared [...] is terminated or revoked sooner. PERFORMED BY: [facility] [address] [place] [address] PATHOLOGIST HEALTH CARE MANAGER ALFRED TRACY M.D. Performed By: #### C OVID 19 [facility] #### [facility] [address] Complete Blood Count Auto Di ffon 02-21-2021 Basophils (Bld) [#/Vol] 0.0 10*3/uL Normal 0.0-0.2 [facility] Comment on above: Result Comment: PERF ORMED BY: [place] [address] PATHOLOGIST HEALTH CARE MANAGER ALFRED TRACY M.D. Performed By: #### B MP, CBC #### [address] Basophils/100 WBC (Bld) 0.5 % Normal . [facility] Comment on above: Performed By: #### B MP, CBC #### [address] Eosinophils (Bld) [#/Vol] 0.1 10*3/uL Normal 0.0-0.45 [facility] Comment on above: Performed By: #### B MP, CBC #### [address] Eosinophils/100 WBC (Bld) 1.2 % Normal . [facility] Comment on above: Performed By: #### B MP, CBC #### [address] Erythrocyte distribution width (RBC) [Ratio] 14.0 % Normal 12.0-14.8 [facility] Comment on above: Performed By: #### B MP, CBC #### [address] Hematocrit (Bld) [Volume fraction] 39.2 % Normal 38.8-50.0 [facility] Comment on above: Performed By: #### B MP, CBC #### [address] Hemoglobin (Bld) [Mass/Vol] 13.9 g/dL Normal 13.0-17.0 [facility] Comment on above: Performed By: #### B MP, CBC #### [address] Lymphocytes (Bld) [#/Vol] 1.0 10*3/uL Normal 1.00-4.8 [facility] Comment on above: Performed By: #### B MP, CBC #### [address] Lymphocytes/100 WBC (Bld) 9.5 % Normal . [facility] Comment on above: Performed By: #### B MP, CBC #### [facility] [address] MCH (RBC) [Entitic mass] 32.1 pg Normal 27.5-35.2 [facility] Comment on above: Performed By: #### B MP, CBC #### [address] MCV (RBC) [Entitic vol] 90.4 fL Normal 83.5-101 [facility] Comment on above: Performed By: #### B MP, CBC #### [address] Mean Corpuscular HGB Conc 35.5 g/dL Normal 32.5-35.6 [facility] Comment on above: Performed By: #### B MP, CBC #### [place] [address] [place] Monocytes (Bld) [#/Vol] 0.6 10*3/uL Normal 0.0-0.8 [facility] Comment on above: Performed By: #### B MP, CBC #### [place] [address] [place] Monocytes/100 WBC (Bld) 6.0 % Normal . [facility] Comment on above: Performed By: #### B MP, CBC #### [address] Neutrophils (Bld) [#/Vol] 8.8 10*3/uL High 1.8-7.7 [facility] Comment on above: Performed By: #### B MP, CBC #### [address] Neutrophils/100 WBC (Bld) 82.8 % Normal . [facility] Comment on above: Performed By: #### B MP, CBC #### [place] [address] [place] Nucleated RBC/100 WBC (Bld) [Ratio] 0.0 % Normal 0-0.5 [facility] Comment on above: Performed By: #### B MP, CBC #### [address] Platelet mean volume (Bld) [Entitic vol] 8.4 fL Normal 6.6-10.1 [facility] Comment on above: Performed By: #### B MP, CBC #### [facility] [address] Platelets (Bld) [#/Vol] 205 10*3/uL Normal 150-450 [facility] Comment on above: Performed By: #### B MP, CBC #### [address] RBC (Bld) [#/Vol] 4.34 10*6/uL Normal 3.90-5.60 [facility] Comment on above: Performed By: #### B MP, CBC #### [address] WBC (Bld) [#/Vol] 10.6 10*3/uL Normal 4.5-11.0 [facility] Comment on above: Performed By: #### B MP, CBC #### [address] ECG 12 lead ECGon 02-18-2021 ECG 12 lead ECG [facility] Main [place] [address] [place] [address] Electrocardiograph Report Signed Patient: Chuckie Villalta MR#: [id number] 56 : 1985 Acct:[id number] Age/Sex: 35 / M ADM Date: 02/18/21 Loc: Room: Type: [facility] Attending Dr: Josiah Pompa MD Ordering [...] DO 02/18/21 1413 Signed By: 02/18/21 1610 [facility] MRI CSPINE WO CONon -13- MRI CSPINE [...] by: ANGIE MCDANIEL Date: 2020-12-06 12:00 Normal [facility] Vital Signs Date Time Vital Sign Value Performing Clinician Facility 02-29-2024 13:25-0400 Body height 185.42 cm [facility] 02-29-2024 13:25-0400 Body mass index (BMI) [Ratio] 29 kg/m2 [facility] 02-29-2024 13:25-0400 Body weight 99.79 kg [facility] 02-29-2024 13:25-0400 Diastolic blood pressure 91 mm[Hg] [facility] 02-29-2024 13:25-0400 Heart rate 111 /min [facility] 02-29-2024 13:25-0400 Respiratory rate 12 /min [facility] 02-29-2024 13:25-0400 Systolic blood pressure 161 mm[Hg] [facility] 06-20-2023 16:12-0500 Body temperature 96.98 [degF] [facility] 06-20-2023 16:12-0500 Diastolic blood pressure 85 mm[Hg] [facility] 06-20-2023 16:12-0500 Heart rate 114 /min [facility] 06-20-2023 16:12-0500 Respiratory rate 18 /min [facility] 06-20-2023 16:12-0500 SaO2% (BldA) [Mass fraction] 100 % [facility] 06-20-2023 16:12-0500 Systolic blood pressure 160 mm[Hg] [facility] 06-11-2023 10:00-0500 Body height 185.42 cm Luis Ball Other [employer] Other 06-11-2023 10:00-0500 Body mass index (BMI) [Ratio] 29.66 kg/m2 [employer] Other [employer] Other 06-11-2023 10:00-0500 Body weight 101.97 kg Luis Ball Other [employer] Other 06-11-2023 10:00-0500 Diastolic blood pressure 97 mm[Hg] Luis Ball Other [employer] Other 06-11-2023 10:00-0500 Respiratory rate 12 /min Luis Ball Other [employer] Other 06-11-2023 10:00-0500 Systolic blood pressure 141 mm[Hg] Luis Ball Other [employer] Other 03-05-2023 09:45-0400 Body height 185.42 cm Luis Ball Other [employer] Other 03-05-2023 09:45-0400 Body mass index (BMI) [Ratio] 29.6 kg/m2 Luis Ball Other [employer] Other 03-05-2023 09:45-0400 Body weight 101.79 kg Luis Ball Other [employer] Other 03-05-2023 09:45-0400 Diastolic blood pressure 109 mm[Hg] Luis Ball Other [employer] Other 03-05-2023 09:45-0400 Systolic blood pressure 153 mm[Hg] Luis Ball Other [employer] Other 09-12-2022 10:30-0500 Body height 185.42 cm Luis Ball Other [employer] Other 09-12-2022 10:30-0500 Body mass index (BMI) [Ratio] 29.95 kg/m2 Luis Ball Other [employer] Other 09-12-2022 10:30-0500 Body weight 102.97 kg Luis Abdalla Other [employer] Other 09-12-2022 10:30-0500 Diastolic blood pressure 86 mm[Hg] Luis Abdalla Other [employer] Other 09-12-2022 10:30-0500 Respiratory rate 12 /min Luis [employer] Other [employer] Other 09-12-2022 10:30-0500 Systolic blood pressure 132 mm[Hg] Luis [employer] Other [employer] Other Encounters Encounter Date Encounter Type Care Provider Facility Start: 04-04-2024 End: 04-04-2024 ambulatory Vicente Thompson MD Facility:[facility] Start: 03-07-2024 End: 03-07-2024 ambulatory Vicente Thompson MD Facility:[facility] Start: 02-29-2024 End: 02-29-[address] [facility] Work Phone: Start: 02-29-2024 End: 02-29-2024 Patient encounter procedure [facility] Work Phone: Start: 12-28-2023 End: 12-28-2023 ambulatory Vicente Thompson MD Facility:[facility] Start: 10-19-2023 End: 10-19-2023 ambulatory Vicente Thompson MD Facility:[facility] Start: 09-28-2023 End: 09-28-2023 ambulatory Vicente Thompson MD Facility:[facility] Start: 06-20-2023 End: 06-20-2023 Emergency department patient visit Wilmer Rosenberg Facility:[facility] Start: 06-20-2023 End: 06-20-2023 Emergency department patient visit Wilmer Rosenberg [facility] Start: 06-11-2023 End: 06-11-2023 ambulatory Luis Abdalla Other [employer] Other Start: 06-11-2023 Encounter for genera l adult medical examination without abnormal findings Luis Abdalla [facility] Start: 06-11-2023 Periodic preventive med est patient 18-39 yrs Luis Abdalla [facility] Start: 03-19-2023 End: 03-19-2023 ambulatory BETINA QUEZADA Facility:[facility] Start: 03-05-2023 End: 03-05-2023 ambulatory Luis Abdalla Other [employer] Other Start: 03-05-2023 Office outpatient vi sit 15 minutes Luis Abdalla [facility] Start: 12-11-2022 End: 12-11-2022 ambulatory BETINA QUEZADA Facility:[facility] Start: 09-22-2022 Telephone encounter Rashida Liriano RNanswering service telephone operator Comment on above: Care Coordination ([facility] clinic) Start: 09-12-2022 End: 09-12-2022 ambulatory Luis Abdalla Other [employer] Other Start: 09-12-2022 Office outpatient vi sit 25 minutes Luis Abdalla [facility] Start: 09-04-2022 Orders Only Betina Quezada MD Work Phone: Gastroenterology Comment on above: Liver transplant rec ipient (HCC) (Primary Dx) Endoscopy Call Start: 09-04-2022 End: 09-04-2022 Evaluation and management of inpatient MINNA TISHAShivani Facility:[facility] Start: 08-31-2022 End: 09-05-2022 Evaluation and management of inpatient LUIS ABDALLA Facility:[facility] Start: 07-22-2022 ambulatory Nadja [place] RN [facility] [place] Comment on above: holiday obs erved July 28 Start: 07-22-2022 E-mail encounter fro m caregiver Nadja [place] RN [facility] Start: 07-07-2022 End: 07-08-2022 ambulatory LUIS ABDALLA Facility:[facility] Start: 05-01-2022 Refill Tuyet Rivera PA-C Work Phone: [phone] Comment on above: Refill Request Start: 03-24-2022 Telephone encounter [facility] Comment on above: Reminder To Have Lab s Drawn Start: 03-11-2022 Telephone encounter [facility] Comment on above: Covid19 Concern Start: 02-25-2022 End: 02-25-2022 ambulatory LUIS ABDALLA Facility:[facility] Start: 02-25-2022 End: 02-25-2022 Patient encounter procedure Rosemariese Roger [facility] Comment on above: Uncomplicated alcoho l dependence (HCC) Start: 02-20-2022 End: 02-20-2022 Social Work [facility] Start: 12-27-2021 End: 12-27-2021 Subsequent hospital visit by physician Ct Prep Qb Radiology Start: 12-10-2021 End: 12-10-2021 ambulatory Aidan Larios MD Work Phone: Transplant Center Comment on above: Liver replaced by tr ansplant (HCC) (Primary Dx); Need for prophylactic immunotherapy Start: 12-10-2021 End: 12-10-2021 Telemedicine consultation with patient Aidan Larios MD Work Phone: [facility] Start: 11-08-2021 Telephone encounter [facility] Comment on above: Hospital Follow Up Start: 12-06-2020 End: 12-07-[address] LUIS ABDALLA Facility:[facility] Procedures Date Procedure Procedure Detail Performing Clinician Start: 09-04-2022 FLUORO ERCP (POC) FOR DDI USE ONLY Betina Quezada MD Work Phone: Start: 09-03-2022 Antibody screen BETINA QUEZADA Comment on above: Order Comment: Specimen Type: BLOOD SPEC IMENOrdering Facility: [facility] Address: [address] [place] [phone] Performed By: #### T SCR ####CC [facility] [id number] [address] [place] Start: 02-24-2022 Adult [...] profile DTAP,TDAP,TD (2 - Td or Tdap) [facility] Start: 07-07-2027 LIPID SCREEN LIPID SCREEN [facility] Start: 07-16-2026 LIPID SCREEN LIPID SCREEN [facility] Start: 01-15-2024 PNEUMOCOCCAL (3 - PP SV23 if available, else PCV20) PNEUMOCOCCAL (3 - PPSV23 if available, else PCV20) [facility] Start: 01-15-2024 PNEUMOCOCCAL (3 - PP SV23 or PCV20) PNEUMOCOCCAL (3 - PPSV23 or PCV20) [facility] Start: 10-05-2023 TWO PNEUMOVAX 5 YEAR S APART PRIOR TO AGE 65 (#2) TWO PNEUMOVAX 5 YEARS APART PRIOR TO AGE 65 (#2) [facility] Start: 02-24-2023 Adult depression screening assessment DEPRESSION SCREENING [facility] Start: 12-02-2022 End: 09-04-2023 ERCP ERCP Endoscopy Routine Biliary stricture Expected: 12/02/2022, Expires: 09/04/2023 [facility] Work Phone: Comment on above: Expected: 12/02/2022 , Expires: 09/04/2023 Start: 07-27-2022 DEPRESSION ASSESSMENT DEPRESSION ASS ESSMENT [facility] Start: 03-27-2022 Influenza vaccination [facility] Start: 12-30-2021 End: 03-01-2022 Amylase [Enzymatic activity/volume] in Serum or Plasma AMYLASE BLD Lab Routine Expected: 12/30/2021, Expires: 03/01/2022 [facility] Work Phone: Comment on above: Expected: 12/30/2021 , Expires: 03/01/2022 Start: 12-30-2021 End: 03-01-2022 Lipase [Enzymatic activity/volume] in Serum or Plasma LIPASE BLD Lab Routine Expected: 12/30/2021, Expires: 03/01/2022 [facility] Work Phone: Comment on above: Expected: 12/30/2021 , Expires: 03/01/2022 Start: 12-24-2021 End: 01-09-2023 Ct abdomen w/contrast material CT ABDOMEN W IVCON Radiology Routine Expected: 12/24/2021 (Approximate), Expires: 01/09/2023 [facility] Work Phone: Comment on above: Expected: 12/24/2021 (Approximate), Expires: 01/09/2023 Start: 07-27-2021 DEPRESSION ASSESSMENT DEPRESSION ASS ESSMENT [facility] Start: 07-10-2020 Adult depression screening assessment DEPRESSION SCREENING [facility] Start: 07-07-2020 MENINGOCOCCAL B: Consider based on risk (3 of 4 - Increased Risk Bexsero 2-dose series) MENINGOCOCCAL B: Consider based on risk (3 of 4 - Increased Risk Bexsero 2-dose series) [facility] Start: 03-11-2019 MENINGOCOCCAL CONJUG ATE (2 - Risk 2-dose series) MENINGOCOCCAL CONJUGATE (2 - Risk 2-dose series) [facility] Start: 2004 SHINGRIX VACCINE (1 of 2) SHINGRIX VACCINE (1 of 2) [facility] Start: 11-01-2003 ANNUAL PCP TEAM ADVERTISING ACCOUNT EXECUTIVE BRANDON DISEASE VISIT ANNUAL PCP TEAM CHRONIC DISEASE VISIT [facility] Start: 11-01-2003 BP CONTROLLED (<130/80) BP CONTROLLE D (<130/80) [facility] Start: 1997 COVID-19 VACCINE (1) COVID-19 VACCIN E (1) [facility] Start: 1990 COVID-19 VACCINE (#1) COVID-19 VACCI NE (#1) [facility] Start: 05-02-1986 COVID-19 VACCINE (#1) COVID-19 VACCI NE (#1) [facility] Immunization Date Immunization Notes Care Provider Fa [facility] 04-18-2020 influenza virus vacc ine, split virus (incl. purified surface antigen) Luis Abdalla Other [employer] Other 04-18-2020 influenza virus vacc ine, unspecified formulation [facility] 07-07-2019 meningococcal B vacc ine, recombinant, OMV, adjuvanted Nadja Spencer RN [facility] 05-20-2019 hepatitis A and hepatitis B vaccine Nadja Spencer RN [facility] 05-20-2019 influenza, injectabl e, quadrivalent, contains preservative Nadja Spencer RN [facility] 01-14-2019 haemophilus influenz ae type b vaccine, PRP-OMP conjugate Nadja Spencer RN [facility] 01-14-2019 meningococcal B vacc ine, recombinant, OMV, adjuvanted Nadja Spencer RN [facility] 01-14-2019 meningococcal oligosaccharide (groups A, C, Y and W-135) diphtheria toxoid conjugate vaccine (MCV4O) Nadja Spencer RN [facility] 01-14-2019 pneumococcal conjuga te vaccine, 13 valent Nadja Spencer RN [facility] 10-04-2018 hepatitis A and hepatitis B vaccine Nadja Spencer RN [facility] 10-04-2018 pneumococcal polysaccharide vaccine, 23 valent Nadja Spencer RN [facility] 07-01-2018 hepatitis A and hepatitis B vaccine Nadja Spencer RN [facility] 07-01-2018 influenza, injectabl e, quadrivalent, contains preservative Nadja Spencer RN [facility] 12-06-2018 pneumococcal conjuga te vaccine, 13 valent Nadja Spencer RN [facility] 07-01-2018 tetanus toxoid, redu simon diphtheria toxoid, and acellular pertussis vaccine, adsorbed Nadja Spencer RN [facility] 04-30-2009 hepatitis B vaccine, adult dosage Nadja Spencer RN [facility] Payers Date Payer Category Payer Medicaid MEDICAID [facility] MEDICAID [id number] 2021-Present [phone] [address] [place] [address] Medicaid [id number] 2021 Medicaid [id number] 2021 Medicaid [id number] 2021 Medicare MEDICARE MEDICAR E A AND B [id number] 2021-Present [phone] [address] [address] [place] [address] Medicare [id number] 2021 Medicare [id number] 2021 Medicare [id number] [facility] MEDICAID [facility] MEDICAID [id number] 2020-Present [phone] [address] [place] [address] Medicaid [id number] 1985 Unknown [id number] 1985 Unknown [id number] 1985 Unknown [id number] 1985 Unknown [id number] 1985 Unknown [id number] 1985 Unknown [id number] 1985 Unknown [id number] 1959 Unknown [id number] Self-pay Self Pay [id number] Social History Date Type Detail Facility Start: 05-04-2018 End: 02-29-2024 Tobacco smoking status NJIS Never smoked tobacco [facility] Start: 05-04-2018 Tobacco use and exposure Former smokeless tobacco user [facility] Start: 09-17-2021 End: 09-04-2022 Alcohol intake Current drinker of alcohol (finding) [facility] Start: 07-05-2021 History SDOH Alcohol Comment occasionally [facility] Start: 1985 Sex Assigned At Not on file [facility] Start: 10-20-2021 End: 2021 Exposure to SARS-CoV-2 (event) Not sure [facility] Sex Assigned At [facility] Tobacco smoking status No Smoking Status Entered [facility] Start: 1985 Sex Assigned At Male [facility] Medical Equipment Procedure Code Equipment Code Equipment Origin al Text Equipment Identifier Dates Stent Axios 15mm 24mm 138mm 10.8fr Nitinol Silicone 10mm 146mm Pancreatic - [id number] Start: 11-01-2021 Stent 10fr Duode nal Bend Plastic 12cm Biliary Temporary Rapid Exchange - [id number] Start: 09-04-2022 Spinal fixation plate, non-bioabsorbable ()[id number] [facility] Start: 02-25-2021 Spinal fixation plate, non-bioabsorbable ()[id number] FDA Start: 02-25-2021 Intervertebral-b josesito internal spinal fixation system ()[id number] FDA Start: 02-25-2021 Intervertebral-b josesito internal spinal fixation system ()[id number] FDA Start: 02-25-2021 Functional Status Date Assessment Result Facility 06-20-2023 Functional Status N/A [facility] Clinical Notes 07-25-2019 to 06-20-2023 [...] cast on your foot. General instructions Take yjih-ewo-zkgwisf and prescription medicines only as told by [...] provider. Document Revised: 11/02/2020 Document Reviewed: 11/02/2020 [employer] Patient Education 2022 [employer]. 06/20/2023 18:04:25 Elastic Bandage and RICE Therapy [...] your activities and whether you should start hebhy-wb-oastir exercises for your injury. Ice Ice your [...] provider. Document Revised: 09/07/2020 Document Reviewed: 04/02/2018 [employer] Patient Education 2020 [employer]. 06/20/2023 18:04:25 Ankle Sprain, Phase II Rehab [...] by your health care provider. Stretching and haoqj-qi-xshxvw exercises These exercises warm up your muscles [...] provider. Document Revised: 09/05/2021 Document Reviewed: 09/05/2021 [employer] Patient Education 2022 [employer]. 06/20/2023 18:04:25 Ankle Sprain, Phase I Rehab [...] by your health care provider. Stretching and dreso-lk-ghkqma exercises These exercises warm up your muscles [...] provider. Document Revised: 09/05/2021 Document Reviewed: 09/05/2021 [employer] Patient Education 2022 [employer] 06/20/2023 18:04:25 Ankle Sprain Ankle Sprain [...] blue. Managing pain, stiffness, and swelling Take pvjc-rxy-czuqgis and prescription medicines only as told by [...] provider. Document Revised: 09/05/2021 Document Reviewed: 09/05/2021 [employer] Patient Education 2022 [employer]. Follow Up Care 06/20/2023 15:55:18 With:LUIS ABDALLA Address: [address] [place] [phone] Business (1) When:06/23/2023 17:48:00 Comments:Follow-up with your primary care provider in 3 to 5 days. If symptoms worsen, do not improve, or new symptoms arise please report back to emergency department for further evaluation. [facility] 06-20-2023 Evaluation + Plan note Extrac edwardo from: Title:ED Note Author:Zaacrias TODD, Dilan Drake te:06/20/23 Left ankle sprain (S93.402A: Sprain of unspecified ligament of left ankle, initial encounter) Sprain of left foot (S93.602A: Unspecified sprain of left foot, initial encounter) Orders: Air Cast Long [facility]11-16-2023 Evaluation note* Encounter Date Diagnosis Assessment [...] CBD obstruction May, Nausea (ICD-10 - R11.0) [employer] Other 08-24-2023 NoteQ3 Patient Name: Chuckie Villalta [...] procedure well. Moderate Sedation: MAC Findings: A key carrier film of the abdomen was obtained. Surgical [...] present medications. Procedure Code(s): --- Professional --- 57486, Endoscopic retrograde cholangiopancreatography (ERCP); with removal of foreign body(s) or stent(s) from biliary/pancreatic duct(s) 08903, Endoscopic retrograde cholangiopancreatography (ERCP); with removal of calculi/debris from biliary/pancreatic duct(s) 76899, Endoscopic catheterization of the biliary ductal system, [...] Z94.4, Liver transplant status CPT copyright 2020 [employer]. All rights reserved. Attending Participation: I was present and participated during the entire procedure, including non-herr portions. Scope In: 9:20:16 AM Scope Out: 9:35:13 AM MD Betina Troncoso MD 03/19/2023 9:49:13 AM This report has been signed electronically by Betina Quezada MD Number of Addenda: 0 Note Initiated On: 03/19/2023 8:51 [facility]08-24-2023 NoteHNO ID: [id number] Author: Indu Meza, RN Service: Nursing Author Type: Registered Nurse Type: Nursing Progress Note Filed: 03/19/2023 8:29 AM Note Text: VBG collected from [facility] IV and sent to blood gas lab per MD order. Indu Meza [facility]NH[facility] Evaluation note* Encounter Date Diagnosis [...] < 140/90 and HR less than 90 [employer] Other 05-18-2023 NoteHNO ID: [id number] Author: Yun Hutchinson APRN.SPEEDBOAT OPERATOR Service: ? Author Type: Nurse Color Control Operator Type: Anesthesia Procedure Notes Filed: 12/11/2022 10:17 AM Note Text: ANESTHESIOLOGY PROCEDURE NOTE Airway General Information Procedure Start Time/Medication Administration: 12/11/2022 10:08 AM Patient location during procedure: OR Timeout Performed Pre-procedure: timeout performed Consent Obtained: Yes Patient identity confirmed: arm band and patient Staffing SPEEDBOAT OPERATOR: Yun Hutchinson APRN.SPEEDBOAT OPERATOR Performed by: GLORIA Indications and Patient Condition Indications for airway management: anesthesia and airway protection Preoxygenated: yes anesthesia circuit Patient position: sniffing Method: asleep Difficult Mask: No Final Airway Details Final airway type: endotracheal airway Cuffed: yes Successful intubation technique: video laryngoscopy Devices used: Glidescope Blade: Lfaquita Blade size: #4 Placement verified by: capnometry Cormack-Lehane Classification: grade IIb - view of arytenoids or posterior of glottis only Number of attempts at approach: 1 Airway not difficult SIGNATURE: Yun Hutchinson APRN.SPEEDBOAT OPERATOR PATIENT NAME: Chuckie Villalta DATE: December 11, 2022 TIME: 10:15 AM CSN: [id number] [facility]05-[facility] NoteQ3 Patient Name: Chuckie Villalta [...] A biliary stent was visible on the key carrier film. A key carrier film of the abdomen was obtained. Surgical [...] exchange stent. Procedure Code(s): --- Professional --- 32160, Endoscopic retrograde cholangiopancreatography (ERCP); with removal and exchange of stent(s), biliary or pancreatic duct, including pre- and post-dilation and guide wire passage, when performed, including sphincterotomy, when performed, each stent exchanged 60056, 59, Endoscopic retrograde cholangiopancreatography (ERCP); with removal and exchange of stent(s), biliary or pancreatic duct, including pre- and post-dilation and guide wire passage, when performed, including sphincterotomy, when performed, each stent exchanged 48638, 59, Endoscopic retrograde cholangiopancreatography (ERCP); with trans-endoscopic balloon dilation of biliary/pancreatic duct(s) or of ampulla (sphincteroplasty), including sphincterotomy, when performed, each duct 82943, Endoscopic retrograde cholangiopancreatography (ERCP); with removal of calculi/debris from biliary/pancre (more content not included)...[facility]02-27-2023 Miscellaneous Notes* Telephone Encounter - Rashida Liriano RN - 09/22/2022 11:30 AM EST Called and left patient regarding referral to [facility] clinic. Call back number provided. Blushr message with the details also sent. Rashida Liriano RN September 22, 2022 11:32 AM documented in this encounterW[facility] Evaluation note* Encounter Date Diagnosis Assessment [...] recipient (ICD-10 - Z94.4) No s/s rejection [employer] Other 02-10-2023 NoteHNO ID: [id number] Author: Jerri Camacho MD Service: Hepatology Author [...] Camacho MD Gastroenterology AND Hepatology Fellow Pager [phone] Will d/w staff Dr. Crawford.[facility]02-09-2023 NoteHNO ID: [id number] Author: Minna Tilley MD Service: General Internal Medicine Author Type: Physician Type: Progress Notes Filed: 09/04/2022 4:09 PM Note Text: DEPARTMENT OF HOSPITAL MEDICINE PROGRESS NOTE SERVICE DATE: 09/04/2022 SERVICE TIME: 3:55 PM Hospital Medicine/Primary Attending: Minna Tilley MD NIGHT AND WEEKEND COVERAGE: [facility] COVERAGE: Days: [phone], please page Minna Tilley for patient issues. Nights: [phone], please page Team GIM 6: G/H 8th floor: [address]; Non 8th floor [address] Subjective INTERVAL HPI: No significant events overnight. [...] c/w alcoholic hepatitis with (more content not included)...[facility]02-09-2023 Miscellaneous Notes* Telephone Encounter - Betina Quezada MD - 09/04/2022 2:03 PM EST Stent change with bruna documented in this encounterWvumedicine [facility]02-09-2023 NoteHNO ID: [id number] Author: Yamilet Giraldo RN Service: Nursing Author Type: Registered Nurse Type: Nursing Progress Note Filed: 09/04/2022 10:58 AM Note Text: Pt nauseous, order for 4mg zofran given per dr junior order, report called to ayana storm rn g100.[facility]02-09-2023 NoteQ3 Patient Name: Chuckie Villalta [...] procedure well. Moderate Sedation: MAC Findings: A key carrier film of the abdomen was obtained. One [...] present medications. Procedure Code(s): --- Professional --- 75874, Endoscopic retrograde cholangiopancreatography (ERCP); with placement of endoscopic stent into biliary or pancreatic duct, including pre- and post-dilation and guide wire passage, when performed, including sphincterotomy, when performed, each stent 91790, Esophagogastroduodenoscopy, flexible, transoral; with removal of foreign body(s) 95061, Endoscopic catheterization of the biliary ductal system, [...] Z94.4, Liver transplant status CPT copyright 2020 [employer]. All rights reserved. Attending Participation: I personally performed the entire procedure. Scope In: 9:12:21 AM Scope Out: 10:02:05 AM MD Betina Troncoso MD 09/04/2022 10:16:37 AM This report has been signed electronically by Betina Quezada MD Number of Addenda: 0 Note Initiated On: 09/04/2022 8:31 [facility]02-09-2023 NoteHNO ID: [id number] Author: Jerri Camacho MD Service: Hepatology Author [...] Hep delta Ab VZV IgM A1AT phenotype [facility]: - F/u percutaneous liver biopsy results [...] Camacho MD Gastroenterology AND Hepatology Fellow Pager [phone] Will d/w staff Dr. Crawford. Addendum 09/04/22 12:26PM: Prelim path read: No evidence of ACR or chronic rejection; no evidence of bile duct injury or portal vein injury. Changes appear to be most c/w alcoholic hepatitis with severe reactivity. [facility]02-08-2023 NoteHNO ID: [id number] Author: Minna Tilley MD Service: General Internal Medicine Author Type: Physician Type: Progress Notes Filed: 09/03/2022 2:32 PM Note Text: DEPARTMENT OF HOSPITAL MEDICINE PROGRESS NOTE SERVICE DATE: 09/03/2022 SERVICE TIME: 2:24 PM Hospital Medicine/Primary Attending: Minna Tilley MD NIGHT AND WEEKEND COVERAGE: [facility] COVERAGE: Days: [phone], please page Minna Tilley for patient issues. Nights: [phone], please page Team GIM 6: G/H 8th floor: [address]505; Non 8th floor [address] Subjective INTERVAL HPI: No significant events overnight. [...] needed Leukocytosis, resolved Se (more content not included)...[facility]02-08-2023 NoteHNO ID: [id number] Author: Jerri Camacho MD Service: Hepatology Author [...] Camacho MD Gastroenterology AND Hepatology Fellow Pager [phone] D/w staff Dr. Crawford.[facility]02-07-2023 NoteHNO ID: [id number] Author: Minna Tilley MD Service: General Internal Medicine Author Type: Physician Type: Progress Notes Filed: 09/02/2022 2:24 PM Note Text: DEPARTMENT OF HOSPITAL MEDICINE PROGRESS NOTE SERVICE DATE: 09/02/2022 SERVICE TIME: 2:10 PM Hospital Medicine/Primary Attending: Minna Tilley MD NIGHT AND WEEKEND COVERAGE: [facility] COVERAGE: Days: [phone], please page Minna Tilley for patient issues. Nights: [phone], please page Team GIM 6: G/H 8th floor: [address]; Non 8th floor [address] Subjective INTERVAL HPI: No significant events overnight. [...] Sepsis ruled out Lactic (more content not included)...[facility]02-06-2023 Note HNO ID: [id number] Author: Minna Tilley MD Service: General Internal Medicine Author Type: Physician Type: Progress Notes Filed: 09/01/2022 2:25 PM Note Text: DEPARTMENT OF HOSPITAL MEDICINE PROGRESS NOTE SERVICE DATE: 09/01/2022 SERVICE TIME: 1:58 PM Hospital Medicine/Primary Attending: Minna Tilley MD NIGHT AND WEEKEND COVERAGE: [facility] COVERAGE: : [phone], please page Minna Tilley for patient issues. Nights: [phone], please page Team GIM 6: G/H 8th floor: [address]376; Non 8th floor [address] Subjective INTERVAL HPI: No significant events overnight. [...] -Follow blood cultures -U (more content not included)...[facility]02-06-2023 NoteHNO ID: [id number] Author: RT Leonora(R) Service: ? Author Type: [...] BY: RT Leonora(R) September 01, 2022 12:56 [facility]10-07-2022 Miscellaneous Notes* Telephone Encounter - Nadja [...] Thank you, Lorena Adames RPh [facility] [phone] documented in this encounterW[facility]08-29-2022 Miscellaneous Notes* Telephone Encounter - Nadja Spencer RN - 03/24/2022 1:17 PM EDT I sent patient a reminder to have lab work drawn as soon as possible as he has not had labs drawn in some time. Encouraged him to reach out with questions. 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 documented in this encounterWvumedicine [facility]08-16-2022 Miscellaneous Notes* Telephone Encounter - Nadja [...] to. 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 documented in this encounterWvumedicine [facility]08-02-2022 NoteHNO ID: [id number] Author: SHAQ Chua Service: ? Author Type: Brake Repairer Type: Progress Notes Filed: 02/25/2022 10:46 AM Note Text: [facility] Assessment Visit Type:Virtual Visit utilizing two-way audio and video for at least a portion of the visit IDENTIFYING INFORMATION: [phone] Lives with of nine years, Екатерина and [...] consented to virtual evaluation. Patient and this rewriter present during interview. PRECIPITATING PROBLEM(S):Patient was dx with liver disease in 2017. Completed an IOP at [facility] in summer 2018, and received liver transplant [...] Age 16, every other weekend. Went to [employer] for college drank heavily on weekends, then [...] from its effects? Yes (more content not included)...[id number] History of Present illness Narrative* SHAQ Chua - 02/25/2022 9:21 AM EDT [facility] Assessment Visit Type:Virtual Visit utilizing two-way audio and video for at least a portion of the visit IDENTIFYING INFORMATION: [phone] [email or web address] Lives with of nine years, Екатерина andone daughter age five Duration of Interview: start time 9:15 and end time 10:30 pm REFERRAL SOURCE: SHAQ Jaimes liver transplant team BENEFITS: Payor: MEDICARE / Plan: MEDICARE A AND B / Product Type: Medicare / INFORMED CONSENT: Patient completed evaluation via virtual MyChart encounter due to COVID-19. Patient verbally consented to virtual evaluation. Patient and this rewriter present during interview. PRECIPITATING PROBLEM(S):Patient was dx with liver disease in 2017. Completed an IOP at [facility] in summer 2018, and received liver transplant [...] Age 16, every other weekend. Went to [employer] for [employer] drank heavily on weekends, then turned 21 [...] MEDICATIONS: none PRIOR CHEMICAL DEPENDENCY TREATMENTS: [facility] TWELVE STEP HISTORY: -Longest [...] None FAMILY/DEVELOPMENTAL HISTORY: -Born/Raised in (City, State): [place], [place]. Grew up on a farm Biological [...] No EMPLOYMENT HISTORY: -Currently employed? 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 No - Are you in need of assistance to identify and explore career interests, aptitudes, and skills andto formulate immediate and [facility] vocational goals? No MARITAL HISTORY: Екатерина -Children: [...] camping, campfires SPIRITUAL ASSESSMENT: -Raised in this Taoist Background: Pentecostal Current Spiritual/Taoist Practices: yes -Belief in a Higher Power: [...] things - anyone or anything (e.g., family, scientologist, pain of ) - that stopped you [...] suicide or other suicidal behavior. From The [employer] Practice Guidelines for the Assessment [...] meaningful daily activities: Yes Currently Employed: Yes Taoist affiliation (See spiritual assessment section above) Therapeutic [place]: Does pt believe treatment can help his/her [...] the date of the service which included [id number] patient care and completing clinical documentation. [facility] History of Present illness Narrative* SHAQ [...] Patient states he went through IOP at [facility] and did not have a good experience. SW recommended [facility] to patient and he is agreeable to trying this program. SW provided contact info and also emailed [facility] with this referral. Patient states he will also continue to go to his weekly home groupAA session every Thur at 8pm in [facility]. SW encouraged clt to reach out with any further questions or concerns. SHAQ Jaimes-S Liver Transplant Social Work documented in this encounterCleveland [id number] History of Present illness Narrative* SHAQ Jaimes - 02/20/2022 10:05 AM EDT Patient scheduled for virtual follow up visit with DEONDRE champion at 1pm. Patient left 2 messages via [employer] cancelling appointment due to time conflict. SHAQ Jaimes-S Liver Transplant Social Work documented in this encounterW[facility]06-03-2022 History of Present illness Narrative* FLORENTINO [...] 2021 TIME: 12:54 PM documented in this encounterW[facility]05-23-2022 History of Present illness Narrative* Aidan [...] IS. I spent more than 20 minutes [id number] with the patient and over half the time was devoted to counseling and/or coordination of care. Aidan Larios MD documented in this encounterWvumed[facility]04-15-2022 Miscellaneous Notes* Telephone Encounter - Nadja Spencer RN - 11/08/2021 3:18 PM EDT Patient returned my text and said that he will be unavailable on 11/12, as he and his family just arrived at [facility]. He will be available for virtual visit on 11/19. I notified scheduling. 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 * Telephone Encounter - Nadja Spencer RN - 11/08/2021 2:23 PM EDT I called and LMOM and sent patient a text to follow up with him from [facility]. I let him know that I'd be setting him up for a follow up virtual visit with Dr. Larios. Encouraged him to call back with questions or as needed. 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 documented in this encounterWvumedicine [facility]12-17-2021 NoteHNO ID: [id number] Author: Saba Hills MD Service: Hospital Medicine Author Type: Physician Type: Plan of Care Filed: 07/12/2021 9:21 AM Note Text: # Acute Pancreatitis- in setting of biliary stenosis. Resolved. Last amylase was 59 Per recommendation of GI we initially plan to transfer to [facility] for ERCP but that was later [...] Vision MRI was negative Will discuss with hospice volunteer coordinator We will also consult ID ? Need to look for CMV retinitis Saba Hills MD ?[facility] [id number] NoteHNO ID: [id number] Author: Maninder Aguilera DO Service: Hospital Medicine Author Type: Physician Type: Progress Notes Filed: 07/11/2021 10:58 AM Note Text: DEPARTMENT OF HOSPITAL MEDICINE PROGRESS NOTE SERVICE DATE: 07/11/2021 SERVICE TIME: 10:15 AM Hospital Medicine/Primary Attending: Maninder Aguilera DO NIGHT AND WEEKEND COVERAGE: ERICK COVERAGE: Days: [phone], please contact via [employer] Nights: [phone], please page CC Hospitalist Night coverage pager [phone] Subjective INTERVAL HPI: pt seen at bedside. [...] VTE Prophylaxis/Anticoagulants 07/09/21 1245 pneumatic compression stockings (ga,oh) VTE Prophylaxis: VTE prophylaxis appropriate Disposition: Home Plan of care discussed with Provider, RN, Patient SIGNATURE: Maninder Aguilera DO PATIENT NAME: Chuckie Villalta DATE: July 11, 2021 TIME: 10:15 AMPrimary [facility]'S HospitalDjshanbk50-08-1115 NoteHNO ID: [id number] Author: Saba Hills MD Service: Hospital Medicine Author Type: Physician Type: Progress Notes Filed: 07/11/2021 5:13 AM Note Text: HOSPITAL MEDICINE PROGRESS NOTE Saba Hills MD NIGHT AND WEEKEND COVERAGE: ERICK COVERAGE: Days: [phone], please contact via [employer] Nights: [phone], please page CC Hospitalist Night coverage pager [phone] Subjective HPI: Interval Events: has pain abdomen [...] sounds + EXTREMITY: : No ankle edema. PERSONAL LINES ADVISOR: grossly normal. No focal deficit. Lines, Drains, [...] and GI GI is planning ERCP at [facility] as outpatient 2. History of hemochromatosis [...] VTE Prophylaxis/Anticoagulants 07/09/21 1245 pneumatic compression stockings (ga,oh) VTE Prophylaxis: VTE prophylaxis appropriate. Advised to ambulate as tolerated. Plan of care discussed with: Patient, Family/Significant Other: at bedside, RN and Consultants: Neurology, Nephro, GI Saba Hills MD 07/10/2021 11:00 AM Please use Secure messaging to contact me between 7:30 AM and 4:30 PM Chuckie Villalta [id number] NoteHNO ID: [id number] Author: Jolynn Jaquez MD Service: Hospital Medicine Author Type: Physician Type: Progress Notes Filed: 07/09/2021 6:55 PM Note Text: HOSPITAL MEDICINE PROGRESS NOTE NIGHT AND WEEKEND COVERAGE: ERICK COVERAGE: Days: [phone], please contact via [employer] Nights: [phone], please page CC Hospitalist Night coverage pager [phone] Hospital Medicine/Primary Attending: Jolynn Jaquez MD Subjective [...] sounds + EXTREMITY: : No ankle edema. PERSONAL LINES ADVISOR: grossly normal. No focal deficit. Lines, Drains, [...] outpatient. Patient to be scheduled at [facility]. Consider starting heparin subq for prophylaxis tomorrow [...] showed no acute process. 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 Plan to follow up outpatient with Neuro, and consider outpatient MRI brain with contrast if needed. ? Medication and Non-Pharmacologic VTE Prophylaxis/Anticoagulants 07/09/21 1245 pneumatic compression stockings (ga,oh) VTE Prophylaxis: VTE prophylaxis appropriate. Advised to ambulate as tolerated. Plan of care discussed with: Patient, Family/Significant Other: at bedside, RN and Consultants: Neurology, Nephro, GI SIGNATURE: Jolynn Jaquez MD PATIENT NAME: Chuckie Villalta DATE: July 09, 2021 TIME: 4:16 [facility] CenterSqpumxbk96-78-2354 NoteHNO ID: [id number] Author: Tani Woodward MD, PhD Service: Neurology [...] Woodward MD, PhD July 09, 2021 3:20 [facility] CenterIsnlgmyx48-11-4661 NoteHNO ID: [id number] Author: Isa San RDMS, RVT Service: Radiology Author Type: Maintenance Technician Type: Progress Notes Filed: 07/08/2021 12:04 PM [...] San RDMS, RVT July 08, 2021 12:03 [facility] [id number] NoteHNO ID: [id number] Author: Jolynn Jaquez MD Service: Hospital Medicine Author Type: Physician Type: Progress Notes Filed: 07/08/2021 11:56 AM Note Text: HOSPITAL MEDICINE PROGRESS NOTE NIGHT AND WEEKEND COVERAGE: ERICK COVERAGE: Days: [phone], please contact via [employer] Nights: [phone], please page CC Hospitalist Night coverage pager [phone] Hospital Medicine/Primary Attending: Jolynn Jaquez MD Subjective [...] tenderness in EXTREMITY: : No ankle edema. PERSONAL LINES ADVISOR: grossly normal. No focal deficit. Cranial nerves [...] Problems as of 07/08/2021 Noted - Resolved [facility] * (Principal) Acute pancreatitis 07/05/2021 - [...] is still waiting to be transferred to [facility]). Pain management consult. YOAN on [...] Villalta DATE: July 08, 2021 TIME: 11:30 [facility]Nhaoozli34-79-1203 NoteHNO ID: [id number] Author: Jolynn Jaquez MD Service: Hospital Medicine Author Type: Physician Type: Progress Notes Filed: 07/07/2021 3:10 PM Note Text: HOSPITAL MEDICINE PROGRESS NOTE NIGHT AND WEEKEND COVERAGE: ERICK COVERAGE: Days: [phone], please contact via [employer] Nights: [phone], please page CC Hospitalist Night coverage pager [phone] Hospital Medicine/Primary Attending: Jolynn Jaquez MD Subjective HPI: Interval Events: MAGNETIZER and prn dilaudid helping with pain abdomen. [...] minimal palpation EXTREMITY: : No ankle edema PERSONAL LINES ADVISOR: grossly normal. No focal deficit. Lines, Drains, and Airways Line Peripheral 07/05/21 1811 Right Antecubital 20 Gauge 1 day Peripheral 07/05/21 1923 Short Left Antecubital 20 Gauge 1 day Reviewed lines and needs to be continued: REASONS: Intravenous fluids Medications: Reviewed Diagnostic tests reviewed: Most recent imaging Most recent labs Assessment AND Plan Active Hospital Problems as of 07/07/2021 Noted - Resolved [facility] * (Principal) Acute pancreatitis 07/05/2021 - [...] input Patient waiting to be transferred to [facility]. Likely needs ERCP. Pain control with fentanyl MAGNETIZER, dilaudid prn Close monitoring ? Hemochromatosis 03/18/2018 [...] to get update regarding bed availability at [facility]. No bed assigned at [facility] yet. SIGNATURE: Jolynn Jaquez MD PATIENT NAME: Chuckie Villalta DATE: July 07, 2021 TIME: 2:59 [facility] CenterBvrgsapq80-69-5366 NoteHNO ID: [id number] Author: Roma Horan MD Service: Hospital Medicine Author Type: Physician Type: Progress Notes Filed: 07/06/2021 12:47 PM Note Text: DEPARTMENT OF HOSPITAL MEDICINE PROGRESS NOTE SERVICE DATE: 07/06/2021 SERVICE TIME: 12:43 PM Hospital Medicine/Primary Attending: Roma Horan MD NIGHT AND WEEKEND COVERAGE: ERICK COVERAGE: Days: [phone], please contact via [employer] Nights: [phone], please page CC Hospitalist Night coverage pager [phone] Subjective INTERVAL HPI: c/o 8 abdominal pain. [...] INTRAVENOUS q 6 H PRN - fentaNYL MAGNETIZER 20 mcg/mL in NaCl 0.9% 100 mL [...] a noncontrast examination - Patient accepted to [facility] when bed available - IV fluids, NPO except meds - symptom management - Vanco, cipro, flagyl started in ED--c/w same for now. Leukocytosis resolved today -improving lipase - Consult GI, pending [facility] transfer, appreciate recs. May need ERCP [...] recipient (HCC) Assessment AND Plan: seen at [facility], admits some noncompliance with medications as of late, and rare alcohol use - transfer to [facility] for continued care when able - continue prograf. Will hold Actigall while NPO ? Primary hypertension Assessment AND Plan: elevated in ED, likely due to pain and missed doses - resume po antihypertensives as able - manage pain as able Medication and Non-Pharmacologic VTE Prophylaxis/Anticoagulants VTE Prophylaxis: VTE prophylaxis appr (more content not included)...[facility] [id number] NoteHNO ID: [id number] Author: Interface Note Service: ? Author Type: ? Type: Progress Notes Filed: 07/06/2021 2:53 AM Note Text: Epic Scheduled Downtime: 07/06/2021 1:00:00 AM to 07/06/2021 2:38:59 AMPrimary Children'S HospitalXqjbpihc04-85-4245 NoteHNO ID: [id number] Author: Lisseth Raymond APRN.PALEONTOLOGY TEACHER Service: Hospital Medicine Author Type: Nurse Practitioner Type: Plan of Care Filed: 07/05/2021 11:59 PM Note Text: Patient's pain not being controlled with prn dilaudid. Per Up to Date, MAGNETIZER recommended and fentanyl the safest drug to use for this purpose I discussed case with Dr Shook, I also discussed with the NOM and the pharmacist. A MAGNETIZER pump ordered. Lisseth Raymond APRN.[facility] Center-PhiladelphiaMhdnbhud36-83-2963 NoteHNO ID: [id number] Author: RT Alok(R) Service: ? Author Type: [...] BY: RT Alok(R) July 05, 2021 11:38 [facility] CenterBvhlrekk89-48-0859 NoteHNO ID: [id number] Author: RT Devorah(R) Service: Radiology Author Type: [...] Soila Parker, RT(R) July 05, 2021 7:00 [facility] CenterDbbxmjal88-75-0936 History of Past illness Narrative* Problem Noted [...] of this encounter (statuses as of 11/08/2021) [facility] History of Past illness Narrative* Problem [...] of this encounter (statuses as of 12/16/2021) [facility] of Past illness Narrative* Problem [...] of this encounter (statuses as of 12/28/2021) [facility] of Past illness Narrative* Problem [...] of this encounter (statuses as of 12/28/2021) [facility] of Past illness Narrative* Problem [...] of this encounter (statuses as of 02/20/2022) [facility] of Past illness Narrative* Problem [...] of this encounter (statuses as of 02/25/2022) [facility] of [facility] illness Narrative* Problem [...] of this encounter (statuses as of 03/11/2022) [facility] of [facility] illness Narrative* Problem [...] of this encounter (statuses as of 03/24/2022) [facility] of [facility] illness Narrative* Problem [...] of this encounter (statuses as of 05/05/2022) [facility] of Past illness Narrative* Problem [...] of this encounter (statuses as of 07/28/2022) [facility] of Past illness Narrative* Problem [...] of this encounter (statuses as of 09/04/2022) [facility] of Past illness Narrative* Problem [...] of this encounter (statuses as of 09/04/2022) [facility] of Past illness Narrative* Problem [...] of this encounter (statuses as of 09/22/2022) [facility] note* Diagnosis Liver replaced by transplant (HCC)- Primary Liver replaced by transplant documented in this encounter [facility] note* Diagnosis Liver replaced by transplant (HCC)- Primary Liver replaced by transplant Need for prophylactic immunotherapy documented in this encounter [facility] note* Diagnosis Uncomplicated alcohol dependence (HCC) Other and unspecified alcohol dependence, unspecified drinking behavior documented in this encounter [facility] note* Diagnosis Liver transplant recipient (HCC)- Primary documented in this encounter [facility] note* Diagnosis 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 documented in this encounter [facility] noteNo assessment information availableFostoria City Hospital Work Phone: Histoli general Narrative - Reported* Type Description Date [...] History COLONOSCOPY 2019 Hospitalization History See Above [employer] Other Hisxzvb general Narrative - Reported* Type Description Date [...] stent replaced 11/2022 Hospitalization History See Above [employer] Other Hislsji general Narrative - Reported* Type Description Date [...] History ERCP 02/2023 Hospitalization History See Above [employer] Other Hospital course Narrative No data available for this section [facility] No data available for this section [facility] HospitalReason for referral (narrative)* Outpatient Procedure (Routine) - Pending Review Specialty Diagnoses / Procedures Referred By Vale lopez Referred To Contact [facility] Diagnoses Biliary stricture Procedures ERCP ERCP DX COLLECTION SPECIMEN BRUSHING/WASHING Betina Quezada MD [address] [place] [address] [facility] [address] [place] [address] Referral ID Status Reason Start Date Expiration Date Visits Requested Visits Authorized [id number] Pending Review Auto-Generat ed Referral 12/02/2022 09/04/2023 1 1 [facility] Summary Purpose Family History No Family History Records Found Relationship Condition Age at Onset Recorded Date/T sowmya father Malignant neoplasm of colon Unknown Hypertension Unknown mother Hypertension Unknown Myocardial infarction Unknown brother Epilepsy Unknown Advance Directives No Advanced Directives Records FoundDocuments on File Type Date Recorded Patient Pet Nutrition Specialist Expl anation Advance Directive(s) 10/30/2021 12:47 PM Advance Directive(s) 07/05/2021 6:47 PM Advance Directive(s) 07/16/2020 12:03 PM Advance Directive(s) 05/02/2020 10:37 AM Advance Directive(s) 07/10/2019 5:35 PM Advance Directive(s) 01/21/2019 3:11 PM Advance Directive(s) 10/06/2018 10:21 AM Advance Directive(s) 07/13/2018 6:11 AM Documents on File Type Date Recorded Patient Pet Nutrition Specialist Expl anation Advance Directive(s) 10/30/2021 12:47 PM Advance Directive(s) 07/05/2021 6:47 PM Advance Directive(s) 07/16/2020 12:03 PM Advance Directive(s) 05/02/2020 10:37 AM Advance Directive(s) 07/10/2019 5:35 PM Advance Directive(s) 01/21/2019 3:11 PM Advance Directive(s) 10/06/2018 10:21 AM Advance Directive(s) 07/13/2018 6:11 AM Documents on File Type Date Recorded Patient Pet Nutrition Specialist Expl anation Advance Directive(s) 10/06/2018 10:21 AM Latest Code Status on File Code Status Date Activated Date Inactivated Comments Full Code 09/01/2022 12:05 AM Full Code Order Discussed With: Patient Documents on File Type Date Recorded Patient Pet Nutrition Specialist Expl anation Advance Directive(s) 10/06/2018 10:21 AM [...] CT ABDOMEN W/CONTRAST Aidan Larios MD [address] [place] [address] Ct Imaging Referral ID Status Reason Start Date Expiration Date Visits Requested Visits Authorized [id number] Pending Review Auto-Generat ed Referral 12/24/2021 01/09/2023 1 1 Referral ID Status Reason Start Date Expiration Date V isits Requested Visits Authorized [id number] Closed Auto-Generated Referral Patient Cleared - INN [...] content) DATE CREATED AUTHOR 12/20/2020 [facility] DATE CREATED AUTHOR AUTHOR'S ORGANIZ ATION 07/13/2021 [facility] DATE CREATED AUTHOR AUTHOR'S ORGANIZ ATION 08/18/2021 [facility] DATE CREATED AUTHOR AUTHOR'S ORGANIZ ATION 11/09/2022 [facility] DATE CREATED AUTHOR AUTHOR'S ORGANIZ ATION 03/20/2023 [facility] DATE CREATED AUTHOR AUTHOR'S ORGANIZ ATION 06/28/2023 [facility] DATE CREATED AUTHOR AUTHOR'S ORGANIZ ATION 04/10/2024 [facility] Source Comments (unrecognize d section and content) In the event this informatio n is protected by the Federal Confidentiality of Alcohol and Drug Abuse Patient Records regulations: The Federal rules restrict any use of the information to criminally investigate or prosecute any alcohol or drug abuse patient.[facility] HospitalIn the event this information is protected by the Federal Confidentiality of Alcohol and Drug Abuse Patient Records regulations: The Federal rules restrict any use of the information to criminally investigate or prosecute any alcohol or drug abuse patient.[facility] HospitalIn the event this information is protected by the Federal Confidentiality of Alcohol and Drug Abuse Patient Records regulations: The Federal rules restrict any use of the information to criminally investigate or prosecute any alcohol or drug abuse patient.[facility] HospitalIn the event this information is protected by the Federal Confidentiality of Alcohol and Drug Abuse Patient Records regulations: The Federal rules restrict any use of the information to criminally investigate or prosecute any alcohol or drug abuse patient.[facility] HospitalIn the event this information is protected by the Federal Confidentiality of Alcohol and Drug Abuse Patient Records regulations: The Federal rules restrict any use of the information to criminally investigate or prosecute any alcohol or drug abuse patient.[facility] HospitalIn the event this information is protected by the Federal Confidentiality of Alcohol and Drug Abuse Patient Records regulations: The Federal rules restrict any use of the information to criminally investigate or prosecute any alcohol or drug abuse patient.[facility] HospitalIn the event this information is protected by the Federal Confidentiality of Alcohol and Drug Abuse Patient Records regulations: The Federal rules restrict any use of the information to criminally investigate or prosecute any alcohol or drug abuse patient.[facility] HospitalIn the event this information is protected by the Federal Confidentiality of Alcohol and Drug Abuse Patient Records regulations: The Federal rules restrict any use of the information to criminally investigate or prosecute any alcohol or drug abuse patient.[facility] HospitalIn the event this information is protected by the Federal Confidentiality of Alcohol and Drug Abuse Patient Records regulations: The Federal rules restrict any use of the information to criminally investigate or prosecute any alcohol or drug abuse patient.[facility] HospitalIn the event this information is protected by the Federal Confidentiality of Alcohol and Drug Abuse Patient Records regulations: The Federal rules restrict any use of the information to criminally investigate or prosecute any alcohol or drug abuse patient.[facility] HospitalIn the event this information is protected by the Federal Confidentiality of Alcohol and Drug Abuse Patient Records regulations: The Federal rules restrict any use of the information to criminally investigate or prosecute any alcohol or drug abuse patient.[facility] HospitalIn the event this information is protected by the Federal Confidentiality of Alcohol and Drug Abuse Patient Records regulations: The Federal rules restrict any use of the information to criminally investigate or prosecute any alcohol or drug abuse patient.[facility] HospitalIn the event this information is protected by the Federal Confidentiality of Alcohol and Drug Abuse Patient Records regulations: The Federal rules restrict any use of the information to criminally investigate or prosecute any alcohol or drug abuse patient.[facility] HospitalIn the event this information is protected by the Federal Confidentiality of Alcohol and Drug Abuse Patient Records regulations: The Federal rules restrict any use of the information to criminally investigate or prosecute any alcohol or drug abuse patient.[facility] Reason for Visit (unrecogniz ed section and content) Reason Comments Radiology CT Specialty Diagnoses / Procedures Referred By Contac t Referred To Contact CT IMAGING Diagnoses Alcohol-induced acute pancreatitis, unspecified complication status Procedures CT ABDOMEN W IVCON CT ABDOMEN W/CONTRAST Aidan Larios MD [address] [place] [address] Ct Imaging Referral ID Status Reason Start Date Expiration Date V isits Requested Visits Authorized [id number] Closed Auto-Generated Referral Patient Cleared - INN Insurance Found 12/24/2021 01/09/2023 1 1 Reason Comments Hospital Follow Up Reason Comments Established Patient Reason Comments Covid19 Concern Reason Comments Reminder To Have Labs Drawn Reason Comments Refill Request Reason Comments Endoscopy Call Reason Comments Care Coordination [facility] Care Teams (unrecognized sec tion and content) Assembler Skylights Relationship Specialty Start Date End Date Luis Abdalla, DO [address] [place] [address] PCP - General Internal Medicine 01/12/18 Angie Fernandes Jr. [address] [id number] Referring Gastroenterology 01/12/18 Nadja Spencer RN [facility] [address] [place] [address] Transplant Center 08/31/19 Assembler Skylights Relationship Specialty Start Date End Date Luis Abdalla, DO [address] [place] [address] PCP - General Internal Medicine 01/12/18 Angie Fernandes Jr. [phone] [address] [address] Referring Gastroenterology 01/12/18 Nadja Spencer RN [facility] [address] [place] [address] Transplant Center 08/31/19 [employer] Relationship Specialty Start Date End Date Luis Abdalla, DO [address] [place] [address] PCP - General Internal Medicine 01/12/18 Angie Fernandes Jr. [address] [address] Referring Gastroenterology 01/12/18 Nadja Spencer, BATOOL [facility] [address] [place] [address] Transplant Center 08/31/19 [employer] Relationship Specialty Start Date End Date Luis Abdalla, DO [address] [place] [address] PCP - General Internal Medicine 01/12/18 Angie Fernandes Jr. [address] [address] Referring Gastroenterology 01/12/18 Nadja Spencer, BATOOL [facility] [address] [place] [address] Transplant Center 08/31/19 [employer] Relationship Specialty Start Date End Date Luis Abdalla, DO [address] [place] [address] PCP - General Internal Medicine 01/12/18 Angie Fernandes Jr. [address] [address] Referring Gastroenterology 01/12/18 Nadja Spencer, BATOOL [facility] [address] [place] [address] Transplant Center 08/31/19 [employer] Relationship Specialty Start Date End Date Luis Abdalla, DO [address] [place] [address] PCP - General Internal Medicine 01/12/18 Angie Fernandes Jr. [address] [address] Referring Gastroenterology 01/12/18 Nadja Spencer, BATOOL [facility] [address] [place] [address] Transplant Center 08/31/19 [employer] Relationship Specialty Start Date End Date Luis Abdalla, DO [address] [place] [address] PCP - General Internal Medicine 01/12/18 Angie Fernandes Jr., DO [address] [place] [address] Referring Gastroenterology 01/12/18 Nadja Spencer RN [facility] [address] [place] [address] Transplant Center 08/31/19 [employer] Relationship Specialty Start Date End Date Luis Abdalla, DO [address] [place] [address] PCP - General Internal Medicine 01/12/18 Angie Fernandes Jr., DO [address] [address] Referring Gastroenterology 01/12/18 Nadja Spencer, BATOOL [facility] [address] [place] [address] Transplant Center 08/31/19 [employer] Relationship Specialty Start Date End Date Luis Abdalla, DO [address] [place] [address] PCP - General Internal Medicine 01/12/18 Angie Fernandes Jr., DO [address] [address] Referring Gastroenterology 01/12/18 Nadja Spencer RN [facility] [address] [place] [address] Transplant Center 08/31/19 [employer] Relationship Specialty Start Date End Date Luis Abdalla, DO [address] [place] [address] PCP - General Internal Medicine 01/12/18 Angie Fernandes Jr., DO [address] [address] Referring Gastroenterology 01/12/18 Nadja Spencer RN [facility] [address] [place] [id number] Transplant Center 08/31/19 Team Status: Active Member [...] BE BASED ON THE PRIMARY CLINICAL RECORDS. [employer] provides no warranty or guarantee of the accuracy or completeness of information in this document.
--- NOTE | 2024-07-14 10:46 | P.CN_ITS ---
Consult Note: HPI Data of Consult Patient: known to practice within the last 3 years Consult date: 03/07/24 Requesting Physician: Brandy Chan NP Primary Care Provider: Luis Hicks DO Consult Narrative Reason for consult: low back, bilateral foot pain Narrative: 38yom who presents for assessment. notes some returning pain in low back with radiation into bilateral feet. continues in a series of provider directed home exercises, which he has done for >6 weeks. denies adverse med side effects. recently underwent bilateral L5-S1 TFESI with >50% improvement ongoing. pain 2/10 increasing to 4/10 stabbing sharp pain. pain increased with activity. cc:: CC: Brandy Chan NP Review of Systems ROS Status of ROS 10 or more systems reviewed and unremark able except as noted in history and below Musculoskeletal Reports: extremity pain PFSH PFSH Medical History (Updated 12/18/23 @ 07:55 by Annette Saavedra) Liver transplant failure and rejection ?T86.42 - Liver transplant failure (ICD-10) ?T86.41 - Liver transplant rejection (ICD-10) Acid reflux ?K21.9 - Gastro-esophageal reflux disease without esophagitis (ICD-10) Hemochromatosis ?E83.119 - Hemochromatosis, unspecified (ICD-10) High blood pressure ?I10 - Essential (primary) hypertension (ICD-10) Surgical History History of fusion of cervical spine ?Z98.1 - Arthrodesis status (ICD-10) History of ERCP ?Z98.890 - Other specified postprocedural states (ICD-10) History of liver transplant ?Z94.4 - Liver transplant status (ICD-10) Meds Home Medications and Allergies Home Medications ?Medication ?Instructions ?Recorded ?Confirmed ?Type Bactrim .QOTHER 09/28/23 History amlodipine 10 mg tablet 10 mg PO DAILY 09/28/23 07/04/24 History carvedilol 12.5 mg tablet 25 mg PO BID 09/28/23 07/04/24 History magnesium 200 mg tablet 400 mg PO DAILY 09/28/23 07/04/24 History pantoprazole 40 mg tablet,delayed mg PO 09/28/23 History release tacrolimus 1 mg capsule, 3 mg PO BID 09/28/23 07/04/24 History immediate-release ursodiol 300 mg capsule 300 mg PO TID 09/28/23 07/04/24 History gabapentin 300 mg capsule 300 mg PO BID #60 caps 06/29/24 07/04/24 Rx Allergies Allergy/AdvReac Type Severity Reaction Status Date / Time midazolam (From Versed) Allergy Unknown Agitated Verified 07/04/24 07:22 Penicillins Allergy Unknown Rash Verified 07/04/24 07:22 Exam Narrative Exam Narrative: Psych-alert and oriented x 3. Attentive and appropriate, constitutionally normal, displays normal mood and affect per situation. There are no obvious deficits in memory, reasoning, or intellect.? Skin-no obvious rashes, bruising, erythema noted to the patient's area of pain.? Extremities- extremities are warm with minimal edema and palpable pulses. Lumbar-tenderness to palpation noted in the lumbar spine and paraspinal musculature. Pain is not elicited with flexion, extension, and lateral rotation of the lumbar spine. Range of motion is not diminished with these motions. Facet loading maneuvers are negative.? Strength-noted to be unremarkable with the exception of decreased strength rated at 4 out of 5 in bilateral anterior tibialis, posterior tibialis. Sensory-no notable sensory deficits in the bilateral lower extremities to touch or pinprick in all dermatomal distributions with the exception to decreased sensation to the bilateral L4, 5 dermatomal distribution Coordination remains intact.? Gait remains non-antalgic. Results Additional Findings Additional findings: If on a controlled substance or opioids, I have checked an [place] report on this patient and there are no aberrancies noted in the prescribing history.??If on a controlled substance or opioid a drug screen was completed and reviewed within the last year, and if there has not been a drug screen completed we ordered one today to monitor higher risk, state monitored pain medication use. As part of providing excellent, safe, comprehensive care, the following was completed at our patient's visit: 1. A medication reconciliation and review to ensure accurate knowledge of current/active medications, including asking our patients to inform us about any [id number] medications or herbal remedies/nutritional supplements/alternative remedies. 2. A review to specifically ensure our patients have had annual screening for screening for depression, screening for tobacco use, and screening for unhealthy alcohol use. For concerning screenings had a discussion with the patient, provided patient education, and recommended follow-up with primary care provider when appropriate. If patient noted with a risk of falling, they received education on strength, gait, and balance training to prevent future risk of falling. Assessment and Plan Assessment and Plan (1) Lumbar stenosis without neurogenic claudication: Plan decrease gabapentin 300mg HS continue HEP as tolerated f/u 3 months, sooner if needed
== END 2024-07-14 10:28 | disposition home or self-care (01) ==
PROVIDERS: PCP Internal Medicine; Visit Provider Nurse Practitioner
DX: M48.062 Spinal stenosis, lumbar region with neurogenic claudication (principal)
CPT/HCPCS: G0463

== ENCOUNTER 2024-08-20 13:17 | Emergency (ER) | payer MEDICARE, MEDICAID, SELFPAY ==
[2024-08-20 13:21] VITALS: BP 123/96; PULSE 125; TEMP 36.8; O2SAT 96; BMI 31.2
--- OUTSIDE RECORDS SUMMARY | 2024-08-20 13:25 | XMS_ITS | CCD ---
Author Organization [facility] CliniSyct Care Team Providers Care Automotive Technician Name Role Phone DR LUIS ABDALLA Attending [...] Provider Dena Pineda DO, David L Unavailable [phone] Nadja Spencer RN Unavailable Unavailable Luis Abdalla [...] Referring Unavailable LUIS ABDALLA Primary Care Physician [phone] Wilmer Rosenberg Attending Unavailable Donna GIRON, Vicente Saavedra Attending Unavailable Donna GIRON, Vicente Saavedra Attending Unavailable Donna GIRON, Vicente Saavedra Attending Unavailable Donna GIRON, Vicente Saavedra Attending Unavailable Donna GIRON, Vicente Saavedra Attending Unavailable Gigeoitis , Vicente Saavedra Attending Unavailable Allergies Allergy Classification Reported Allergen(s) Allergy Type Date of Onset Reaction(s) Facility Penicillins (antibiotic) (1 source) Penicillin Drug Allergy [facility] Repository (17 sources) Midazolam; Translations: [MIDAZOLAM] Drug Allergy 1 Other: See Comments [facility] (7 sources) Penicillins; Translations: [PENICILLINS] Drug Allergy 4 Unknown, Swelling [facility] Work Phone: (16 sources) Seasonal allergy; Translations: [SEASONAL ALLERGIES] Propensity to adverse reactions 8 Unknown [facility] (10 sources) Penicillins Drug Allergy Unknown [facility] Work Phone: (4 sources) penicillAMINE Drug Allergy 4 Unknown, Unknown Reaction [facility] (2 sources) Penicillin; Translations: [penicillin] Drug Allergy Urticaria (disorder) [facility] Medications Current Medications Medication Drug [...] 5 - 10 MG PO Q6H 40 February 26, 2021 predniSONE 20 mg oral [...] Comment on above: Take 1 capsule by [facility] three times daily. Completed/Discontinued Medications Medication Drug [...] for Treatmenton 05-28 Consent for Treatment [id number] IFF Normal [facility] Discharge Instructionson Discharge Instructions [id number] 0TIFF Normal [facility] ED Clinical Summaryon 2022 ED Clinical Summary (Inserted Image. Suzanne ble to display) [address], [place] [address] ED Clinical Summary Person Information Name: CHUCKIE VILLALTA[place] Age: 37 Years : 1985 Sex: Male Language: Omani PCP: LUIS ABDALLA DO Marital Status: Phone: [phone] Visit Id: Visit Reason: Foot pain-swelling; PAIN [...] 06/20/2023 18:04:25 06/20/2023 18:04:25 06/20/2023 18:04:25 ADDRESS: [address] [place] [address] [facility] [id number] PHYS DOC NOTES: MEDICAL INFORMATION: Prescriptions Given: PATIENT EDUCATION INFORMATION: Instructions: Foot Sprain; Elastic Bandage and RICE Therapy; Ankle Sprain, Phase II Rehab; Ankle Sprain, Phase I Rehab; Ankle Sprain Follow up: With: Address: When: LUIS RM [address] [place], [place] [address] [facility] () In 3 days 06/23/2023 Comments: Follow-up with your primary care provider in 3 to 5 days. If symptoms worsen, do not improve, or new symptoms arise please report back to emergency department for further evaluation. DIAGNOSIS: Left ankle sprain; Sprain of left foot Normal [facility] ED Note-Physicianon 06-20-20 ED Note-Physician Basic [...] and Complexity of Problems Differential Diagnosis: [] [facility] Data External documents reviewed: [] My EKG [...] In 3 days 06/23/[address] [place] [address]- Business (1) Additional Instructions: Follow-up with your primary care provider in 3 to 5 days. If symptoms worsen, do not improve, or new symptoms arise please report back to emergency department for further evaluation. Patient Education Foot Sprain Elastic Bandage and RICE Therapy Ankle Sprain, Phase II Rehab Ankle Sprain, Phase I Rehab Ankle Sprain Attestation Patient seen and evaluated by the physician customer relations assistant. Attending physician was present in the emergency department and supervised care. This visit was performed by both the physician and an APC. I performed all aspects of the MDM as documented. This report was transcribed using voice recognition software. Every effort was made to ensure accuracy, however, inadvertently computerized immigration investigator mistakes may be present. Appropriate healthcare PPE was used in evaluating this patient. The patient was placed in a mask. The healthcare provider was wearing mask, gloves, and utilizing proper hand hygiene. All equipment was properly cleansed. Problem List/Past Medical History Ongoing No qualifying data Historical No qualifyi (more content not included)... [facility] Comment on above: Result Comment: Elec tronically Signed By: Dilan Adames PA-C\.br\Date and Time Signed: 06/20/23 18:38 EST\.br\Electronically Co-Signed By: Chet Song, Wilmer Solares.abril\Date and Time Co-Signed: 06/20/23 19:32 EST ED [...] on your foot. General instructions ? Take jxwe-xfr-cvszxnj and prescription medicines only as told by your health care provider. ? When you can walk without pain, wear supportive shoes t (more content not included)... Normal [facility] ED Patient Summaryon 023 ED Patient Summary (Inserted Image. Suzanne ble to display) [address] [address] Patient Discharge Instructions Person Information Name: CHUCKIE VILLALTA Age: 37 Years Arrival Date: 06/20/2023 15:53:53 Discharge Diagnosis: Left ankle sprain; Sprain of left foot Primary Care Physician: LUIS ABDALLA DO Provider Information Primary Provider: Wilmer Rosenberg M.D. Advanced Restaurant Front Manager:None The exam and treatment you received in the Emergency Department were for an urgent problem and are not intended as complete care. It is important that you follow up with a doctor, nurse practitioner, or physician?s customer relations assistant for ongoing care. If your symptoms [...] With: Address: When: LUIS ABDALLA [address] [place] [address] Business (1) In 3 days 06/23/2023 Comments: [...] opioids can be used to help relieve mzqjhmjs-bs-jxpapa pain and are often prescribed following a [...] Administration (www.fda.gov/Kali (more content not included)... [facility] XR Ankle 3+ Views Lefton XR [...] mGy = na DAP = na [facility] XR Foot 3+ Views Lefton 05-28 [...] (Electronic Signature): 06/20/2023 5:29 pm Signed by: SignLuis kennedy MD Transcribed by: DAVID Technologist: PATRICIA Technical Comments Radiation Dose: Ka,r in mGy = na DAP = na [facility] ANES POSTPROC EVALon 023 ANES POSTPROC EVAL HNO ID: [id number] Author: Delmer Webber MD Service: ? Author [...] Quezada MD; Delmer Webber MD; Henrietta Brewster APRN.RELATIONSHIP MANAGEMENT LEAD Responsible Provider: Delmer Webber MD Anesthesia Type: [...] March 19, 2023 TIME: 10:05 AM CSN: [id number] Normal [facility] ANES PRE-OPon 03-19-2023 ANES PRE-OP HNO ID: [id number] Author: Delmer Webber MD Service: ? Author Type: Anesthesiologist Type: Anesthesia Preprocedure Evaluation Filed: 03/19/2023 8:02 AM Note Text: ANESTHESIOLOGY DAY OF SURGERY NOTE : 1985 Procedure Information Date/Time: 03/19/23 0800 Scheduled providers: Betina Quezada MD; Delmer Webber MD; Henrietta Brewster APRN.RELATIONSHIP MANAGEMENT LEAD Procedure: ERCP Location: Gastroenterology Estimated body mass [...] and consent discussed: yes. Patient / Responsible Democrat agrees to proceed: yes Patient / Surrogate [...] March 19, 2023 TIME: 8:02 AM CSN: [id number] Normal [facility] Gas and Carbon monoxide pane l (BldV)on 03-19-2023 BASE DEFICIT, VENOUS -3 mmol/L Low -2-0 [facility] Comment on above: Order Comment: Noe madrid Type: BLOOD SPECIMEN Ordering Facility: [facility] Address: [address] [place] [address] Performed By: #### 5 763-8, COPPER #### [facility] CLIA [id number] [address] [place] Body temperature 98.24 [degF] Normal [facility] Comment on above: Order Comment: Noe madrid Type: BLOOD SPECIMEN Ordering Facility: [facility] Address: [address] [place], [place] [address] Performed By: #### 5 763-8, COPPER #### [facility] CLIA [id number] [address] [place] [address] [place] Calcium.ionized (Bld) [Mass/Vol] 1.24 mmol/L Normal 1.08-1.30 [facility] Comment on above: Order Comment: Speci men Type: BLOOD SPECIMEN Ordering Facility: [facility] Address: [address] [place], [place] [address] Performed By: #### 5 763-8, COPPER #### [facility] CLIA [id number] [address] [place] [address] [place] Calcium.ionized adjusted to pH 7.4 (BldA) [Moles/Vol] 1.23 mmol/L Normal 1.08-1.30 [facility] Comment on above: Order Comment: Speci men Type: BLOOD SPECIMEN Ordering Facility: [facility] Address: [address] [place] [address] Performed By: #### 5 763-8, COPPER #### [facility] IA [id number] [address] [place] [address] [place] Carboxyhemoglobin (BldV) [Mass fraction] 1.2 % Normal 0.0-2.0 [facility] Comment on above: Order Comment: Speci men Type: BLOOD SPECIMEN Ordering Facility: [facility] Address: [address] [place], [place] [address] Result Comment: Carb oxyhemoglobin Reference Range for Smokers: 2.0-8.0% Performed By: #### 5 763-8, COPPER #### [facility] IA [id number] [address] [place] [address] [place] CO2 (BldV) [Partial pressure] 36 mm[Hg] Low 42-55 [facility] Comment on above: Order Comment: Speci men Type: BLOOD SPECIMEN Ordering Facility: [facility] Address: [address] [place], [place] [address] Performed By: #### 5 763-8, COPPER #### [facility] CLIA [id number] [address] [place] [address] [place] CO2 adjusted to patient's actual temperature (BldV) [Partial pressure] 35 mmHg Low 42-55 [facility] Comment on above: Order Comment: Speci men Type: BLOOD SPECIMEN Ordering Facility: [facility] Address: [address] Performed By: #### 5 763-8, COPPER #### [facility] CLIA [id number] [address] [place] [address] [place] Glucose [Mass/Vol] 124 mg/dL High 60-105 [facility] Comment on above: Order Comment: Speci men Type: BLOOD SPECIMEN Ordering Facility: [facility] Address: [address] Performed By: #### 5 763-8, COPPER #### [facility] CLIA [id number] [address] [place] [address] [place] HCO3 (Bld) [Moles/Vol] 21 mmol/L Low 24-28 [facility] Comment on above: Order Comment: Speci men Type: BLOOD SPECIMEN Ordering Facility: [facility] Address: [address] [place] [address] Performed By: #### 5 763-8, COPPER #### [facility] CLIA [id number] [address] [place] [address] [place] Hematocrit (Bld) [Volume fraction] 41.1 % Normal 39.0-51.0 [facility] Comment on above: Order Comment: Speci men Type: BLOOD SPECIMEN Ordering Facility: [facility] Address: [address] Performed By: #### 5 763-8, COPPER #### [facility] CLIA [id number] [address] [place] [address] [place] Hemoglobin (Bld) [Mass/Vol] 13.4 g/dL Normal 13.0-17.0 [facility] Comment on above: Order Comment: Speci men Type: BLOOD SPECIMEN Ordering Facility: [facility] Address: [address] [place], [place] [address] Performed By: #### 5 763-8, COPPER #### [facility] CLIA [id number] [address] [place] [address] [place] Lactate [Moles/Vol] 1.9 mmol/L Normal 0.5-2.2 [facility] Comment on above: Order Comment: Speci men Type: BLOOD SPECIMEN Ordering Facility: [facility] Address: [address] [place] [address] Performed By: #### 5 763-8, COPPER #### [facility] CLIA [id number] [address] [place] [address] [place] Methemoglobin (Bld) [Mass fraction] 0.8 % Normal 0.0-1.5 [facility] Comment on above: Order Comment: Speci men Type: BLOOD SPECIMEN Ordering Facility: [facility] Address: [address] [place], [place] [address] Performed By: #### 5 763-8, COPPER #### [facility] CLIA [id number] [address] [place] [address] [place] O2 THERAPY RA=Room Air Normal [facility] Comment on above: Order Comment: Speci men Type: BLOOD SPECIMEN Ordering Facility: [facility] Address: [address] [place], [place] [address] Performed By: #### 5 763-8, COPPER #### [facility] CLIA [id number] [address] [place] [address] [place] Oxygen (BldV) [Partial pressure] 69 mm[Hg] High 35-45 [facility] Comment on above: Order Comment: Speci men Type: BLOOD SPECIMEN Ordering Facility: [facility] Address: [address] [place] [address] Performed By: #### 5 763-8, COPPER #### [facility] CLIA [id number] [address] [place] [address] [place] Oxygen adjusted to patient's actual temperature (BldV) [Partial pressure] 68 mmHg High 35-45 [facility] Comment on above: Order Comment: Speci men Type: BLOOD SPECIMEN Ordering Facility: [facility] Address: [address] [place] [address] Performed By: #### 5 763-8, COPPER #### [facility] CLIA [id number] [address] [place] [address] [place] Oxygen saturation in Venous blood 94 % High 60-85 [facility] Comment on above: Order Comment: Speci men Type: BLOOD SPECIMEN Ordering Facility: [facility] Address: [address] [place] [address] Performed By: #### 5 763-8, COPPER #### [facility] CLIA [id number] [address] [place] [address] [place] Oxyhemoglobin (BldV) [Mass fraction] 92 % High 60-85 [facility] Comment on above: Order Comment: Speci men Type: BLOOD SPECIMEN Ordering Facility: [facility] Address: [address] [place] [address] Performed By: #### 5 763-8, COPPER #### [facility] CLIA [id number] [address] [place] [id number] [place] pH (BldV) 7.39 [pH] Normal 7.32-7.42 [facility] Comment on above: Order Comment: Speci men Type: BLOOD SPECIMEN Ordering Facility: [facility] Address: [address] [place] [address] Performed By: #### 5 763-8, COPPER #### [facility] CLIA [id number] [address] [place] [address] [place] pH adjusted to patient's actual temperature (BldV) 7.39 Normal 7.32-7.42 [facility] Comment on above: Order Comment: Speci men Type: BLOOD SPECIMEN Ordering Facility: [facility] Address: [address] [place] [address] Performed By: #### 5 763-8, COPPER #### [facility] CLIA [id number] [address] [place] [address] [place] Potassium [Moles/Vol] 4.1 mmol/L Normal 3.5-5.0 [facility] Comment on above: Order Comment: Speci men Type: BLOOD SPECIMEN Ordering Facility: [facility] Address: [address] [place] [address] Performed By: #### 5 763-8, COPPER #### [facility] CLIA [id number] [address] [place] [address] [place] Sodium [Moles/Vol] 140 mmol/L Normal 136-144 [facility] Comment on above: Order Comment: Speci men Type: BLOOD SPECIMEN Ordering Facility: [facility] Address: [address] [place] [address] Performed By: #### 5 763-8, COPPER #### [facility] CLIA [id number] [address] [place] [address] [place] NURSING PROGon 03-19-2023 NURSING PROG HNO ID: [id number] Author: Blanca Kulkarni RN Service: Nursing Author [...] None Electronically Signed By: Blanca Kulkarni RN [facility] NURSING PROG HNO ID: [id number] Author: Indu Meza, RN Service: Nursing Author [...] Meza RN In Department: GASTROENTEROLOGY [facility] Rey 03-12-2023 [facility] Telephone ([facility]) CHUCKIE VILLALTA ([id number]) 1985 M Date Time Provider Department 03/12/23 YAMILET YAN [facility] During your visit today, we [...] present for procedure transport home: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 Any barriers to Patient learning: Patient/Patient Fish Worm Grower responded appropriately on phone. Type of instruction [...] Encounter Status:Closed by YAMILET YAN on 03/12/23 [facility] ANES POSTPROC EVALon 12-11- 023 ANES POSTPROC EVAL HNO ID: [id number] Author: Angie Lloyd MD Service: ? Author [...] December 11, 2022 TIME: 12:57 PM CSN: [id number] Normal [facility] ANES PRE-OPon 12-11-2022 ANES PRE-OP HNO ID: [id number] Author: Angie Lloyd MD Service: ? Author [...] and consent discussed: yes. Patient / Responsible Democrat agrees to proceed: yes Patient / Surrogate [...] December 11, 2022 TIME: 9:21 AM CSN: [id number] [facility] NURSING PROGon 12-11-2022 NURSING PROG HNO ID: [id number] Author: Aicha Bragg RN Service: ? Author [...] Signed By: Aicha Bragg RN [facility] NURSING PROG HNO ID: [id number] Author: Tatiana Ray RN Service: Nursing Author [...] Tatiana Ray RN In Department: GASTROENTEROLOGY Normal [facility] Rey 11-04-2022 CNPN Telephone (LU4[facility]) CHUCKIE VILLALTA ([id number]) 1985 M TRN Date Time Provider Department 11/04/22 MIMI CLEMENS During your visit today, we recorded the following information about you: SHAQ Price 11/04/2022 11:06 AM Signed DEONDRE attempted to contact the patient to discuss the [facility] clinic. DEONDRE left a VM [...] Fully Assessed Reason for Visit: Care Coordination [6689] Cmt: [facility] clinic Prescriptions as of 11/04/2022 [...] Encounter Status:Closed by [facility]ENS [facility] Telephone (GASTA5) CHUCKIE VILLALTA ([id number]) 1985 M TRN Date Time Provider Department 09/22/22 RASHIDA LIRIANO GASTA5 During your visit today, we recorded the following information about you: Rashida Liriano RN 09/22/2022 11:33 AM Signed Called and left patient regarding referral to [facility]. Call back number provided. [employer] message with the details also sent. Rashida Liriano RN September 22, 2022 11:32 AM Allergies As of Date: 09/22/2022 Noted Allergy Reaction PENICILLINS 16 - Unknown Comments: Skin test positive 09/01/18 MIDAZOLAM 02/18/2021 14 - Other: See Comments SEASONAL ALLERGIES 06/29/2018 16 - Unknown Date Reviewed: 09/04/2022 Reviewed by: Tova Wilson RN - Fully Assessed Reason for Visit: Care Coordination [1847] Cmt: [facility] Prescriptions as of 09/22/2022 - tacrolimus IR [...] Status:Closed by RASHIDA LIRIANO on 09/22/22 Normal [facility] CASE MANAGEMon 09-05-2022 CASE MANAGEM HNO ID: [id number] Author: JEY Felton Service: ? Author Type: Environmental Technology Professor Type: Care Mgt Progress Note Filed: 09/05/2022 [...] DEONDRE NOVA also provided Pt with the aa.Sprout website for him to find local and virtual AA meetings in his area. DEONDRE NOVA encouraged Pt to reach back out to DEONDRE NOVA with any questions and/or concerns regarding community resources for alcohol abuse prior to his D/C from the hospital if needed* For weekend CM needs, please contact on-call at: [employer] - 92900 H Enabled Employment - 84709 J [employer] Employment - 60941 M Enabled Employment - 81773 SIGNATURE: JEY Jim PATIENT NAME: Chuckie Villalta DATE: September 05, 2022 TIME: 9:30 AM PAGER/CONTACT #: Normal [facility] CBC panel Auto (Bld)on 09-05 Erythrocyte distribution width (RBC) [Ratio] 17.1 % High 11.5-15.0 [facility] Comment on above: Order Comment: Speci men Type: BLOOD SPECIMEN Ordering Facility: [facility] Address: [address] [place], [place] [address] Performed By: #### 5 763-8, COPPER #### [facility] CLIA [id number] [address] [facility] [address] [place] Hematocrit (Bld) [Volume fraction] 37.4 % Low 39.0-51.0 [facility] Comment on above: Order Comment: Speci men Type: BLOOD SPECIMEN Ordering Facility: [facility] Address: [address] Performed By: #### 5 763-8, COPPER #### [facility] CLIA [id number] [address] [place] [address] [place] Hemoglobin (Bld) [Mass/Vol] 12.8 g/dL Low 13.0-17.0 [facility] Comment on above: Order Comment: Speci men Type: BLOOD SPECIMEN Ordering Facility: [facility] Address: [address] [place] [address] Performed By: #### 5 763-8, COPPER #### [facility] CLIA [id number] [address] [place] [address] [place] MCH (RBC) [Entitic mass] 30.3 pg Normal 26.0-34.0 [facility] Comment on above: Order Comment: Speci men Type: BLOOD SPECIMEN Ordering Facility: [facility] Address: [address] [place], [place] [address] Performed By: #### 5 763-8, COPPER #### [facility] CLIA [id number] [address] [place] [address] [place] MCHC (RBC) [Mass/Vol] 34.2 g/dL Normal 30.5-36.0 [facility] Comment on above: Order Comment: Speci men Type: BLOOD SPECIMEN Ordering Facility: [facility] Address: [address] Performed By: #### 5 763-8, COPPER #### [facility] CLIA [id number] [address] [place] [address] [place] MCV (RBC) [Entitic vol] 88.4 fL Normal 80.0-100.0 [facility] Comment on above: Order Comment: Speci men Type: BLOOD SPECIMEN Ordering Facility: [facility] Address: [address] Performed By: #### 5 763-8, COPPER #### [facility] CLIA [id number] [address] [place] [address] [place] Nucleated RBC (Bld) [#/Vol] 10*3/uL Normal <0.01 [facility] Comment on above: Order Comment: Speci men Type: BLOOD SPECIMEN Ordering Facility: [facility] Address: [address] Performed By: #### 5 763-8, COPPER #### [facility] CLIA [id number] [address] [place] [address] [place] Platelet mean volume (Bld) [Entitic vol] 12.6 fL Normal 9.0-12.7 [facility] Comment on above: Order Comment: Speci men Type: BLOOD SPECIMEN Ordering Facility: [facility] Address: [address] [place], [place] [address] Performed By: #### 5 763-8, COPPER #### [facility] CLIA [id number] [address] [place] [address] [place] Platelets (Bld) [#/Vol] 61 10*3/uL Low 150-400 [facility] Comment on above: Order Comment: Speci men Type: BLOOD SPECIMEN Ordering Facility: [facility] Address: [address] [place], [place] [address] Result Comment: Resu lts checked and verified.No clot detected. Performed By: #### 5 763-8, COPPER #### [facility] CLIA [id number] [address] [place] [address] [place] RBC (Bld) [#/Vol] 4.23 10*6/uL Normal 4.20-6.00 [facility] Comment on above: Order Comment: Speci men Type: BLOOD SPECIMEN Ordering Facility: [facility] Address: [address] [place], [place] [address] Performed By: #### 5 763-8, COPPER #### [facility] CLIA [id number] [address] [address] [place] WBC (Bld) [#/Vol] 4.92 10*3/uL Normal 3.70-11.00 [facility] Comment on above: Order Comment: Speci men Type: BLOOD SPECIMEN Ordering Facility: [facility] Address: [address] [place] [address] Performed By: #### 5 763-8, COPPER #### [facility] CLIA [id number] [address] [place] [place] [id number] [place] CNDSon 09-05-2022 CNDS HNO ID: [id number] Author: Minna Tilley MD Service: General Internal [...] DOPPLER COM (more content not included)... Normal [facility] Comprehensive metabolic 2000 panelon 09-05-2022 Albumin [Mass/Vol] 3.8 g/dL Low 3.9-4.9 [facility] Comment on above: Order Comment: Noe [place] Type: BLOOD SPECIMENOrdering Facility: [facility] Address: [address] [place] [address] Performed By: #### 2 4323-8 ####[facility] [id number] [place] [address] [place] ALP [Catalytic activity/Vol] 94 U/L Normal 38-113 [facility] Comment on above: Order Comment: Noe madrid Type: BLOOD SPECIMENOrdering Facility: [facility] Address: [address] [place] [address] Performed By: #### 2 4323-8 ####[facility] [id number] [place] [address] [place] ALT [Catalytic activity/Vol] 101 U/L High 10-54 [facility] Comment on above: Order Comment: Noe madrid Type: BLOOD SPECIMENOrdering Facility: [facility] Address: [address] [place] [address] Performed By: #### 2 4323-8 ####[facility] [id number] [place] [address] [place] Anion gap [Moles/Vol] 11 mmol/L Normal 9-18 [facility] Comment on above: Order Comment: Speci men Type: BLOOD SPECIMENOrdering Facility: [facility] Address: [address] [place] [address] Performed By: #### 2 4323-8 ####[facility] [id number] [place] [address] [place] AST [Catalytic activity/Vol] 75 U/L High 14-40 [facility] Comment on above: Order Comment: Speci men Type: BLOOD SPECIMENOrdering Facility: [facility] Address: [address] [place] [address] Performed By: #### 2 4323-8 ####[facility] [id number] [place] [address] [place] Bilirubin [Mass/Vol] 1.8 mg/dL High 0.2-1.3 [facility] Comment on above: Order Comment: Speci men Type: BLOOD SPECIMENOrdering Facility: [facility] Address: [address] [place] [address] Performed By: #### 2 4323-8 ####[facility] [id number] [place] [address] [place] Calcium [Mass/Vol] 9.6 mg/dL Normal 8.5-10.2 [facility] Comment on above: Order Comment: Speci men Type: BLOOD SPECIMENOrdering Facility: [facility] Address: [address] [place], [place] [address] Performed By: #### 2 4323-8 ####[facility] [id number] [place] [address] [place] Chloride [Moles/Vol] 102 mmol/L Normal 97-105 [facility] Comment on above: Order Comment: Speci men Type: BLOOD SPECIMENOrdering Facility: [facility] Address: [address] [place] [address] Performed By: #### 2 4323-8 ####[facility] [id number] [place] [address] [place] CO2 [Moles/Vol] 23 mmol/L Normal 22-30 [facility] Comment on above: Order Comment: Speci men Type: BLOOD SPECIMENOrdering Facility: [facility] Address: [address] [place] [address] Performed By: #### 2 4323-8 ####[facility] [id number] [address] [facility] Creatinine [Mass/Vol] 1.16 mg/dL Normal 0.73-1.22 [facility] Comment on above: Order Comment: Speci men Type: BLOOD SPECIMENOrdering Facility: [facility] Address: [address] [place] [address] Performed By: #### 2 4323-8 ####[facility] [id number] [address] ESTIMATED GLOMERULAR FILTRATION RATE 84 mL/min/1.73m??? Normal >=60 [facility] Comment on above: Order Comment: Speci men Type: BLOOD SPECIMENOrdering Facility: [facility] Address: [address] [place] [address] Result Comment: Brenda mated Glomerular Filtration Rate [...] actual GFR. Performed By: #### 2 4323-8 ####[facility] [id number] [place] [address] [place] Glucose [Mass/Vol] 170 mg/dL High 74-99 [facility] Comment on above: Order Comment: Speci men Type: BLOOD SPECIMENOrdering Facility: [facility] Address: [address] [place] [address] Result Comment: The [employer] (ADA) provides guidance for cutoff [...] Standards of Medical Care in Diabetes 2016, [employer]. Diabetes Care. 2016.39(Suppl 1). Performed By: #### 2 4323-8 ####[facility] [id number] [place] [address] [place] Potassium [Moles/Vol] 3.8 mmol/L Normal 3.7-5.1 [facility] Comment on above: Order Comment: Speci men Type: BLOOD SPECIMENOrdering Facility: [facility] Address: [address] [place] [address] Performed By: #### 2 4323-8 ####[facility] [id number] [place] [address] [place] Protein [Mass/Vol] 6.8 g/dL Normal 6.3-8.0 [facility] Comment on above: Order Comment: Speci men Type: BLOOD SPECIMENOrdering Facility: [facility] Address: [address] [place] [address] Performed By: #### 2 4323-8 ####[facility] [id number] [place] [address] [place] Sodium [Moles/Vol] 136 mmol/L Normal 136-144 [facility] Comment on above: Order Comment: Speci men Type: BLOOD SPECIMENOrdering Facility: [facility] Address: [address] [place] [id number] Performed By: #### 2 4323-8 ####[facility] [id number] [address] Urea nitrogen [Mass/Vol] 11 mg/dL Normal 9-24 [facility] Comment on above: Order Comment: Speci men Type: BLOOD SPECIMENOrdering Facility: [facility] Address: [address] [place] [address] Performed By: #### 2 4323-8 ####[facility] [id number] [address] [facility] NUTRITIONon 09-05-2022 NUTRITION HNO ID: [id number] Author: Gifty Arnold RD Service: Nutrition Therapy Author Type: Registered Dietitian Type: Nutrition Filed: 09/05/2022 1:39 PM Note Text: NUTRITION THERAPY INITIAL ASSESSMENT SERVICE DATE: 09/05/2022 SERVICE TIME: 10:50 am Nutrition Assessment: Recommended Malnutrition Diagnosis: No Malnutrition Identified Nutrition Diagnosis: Problem: Suboptimal protein/energy intake Related to: Unknown etiology As evidenced by: Medical condition, Intake records Estimated kilocalorie needs: 5304-1677 Calorie Calculation Method: 20-25 kcals/kg Estimated protein [...] per patient. 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 Denies [...] September 05, 2022 TIME: 1:35 PM Normal [facility] PT panel Coag (PPP)on 2022 INR Coag (PPP) [Relative time] 1.0 {INR} Normal 0.9-1.3 [facility] Comment on above: Order Comment: Speci men Type: BLOOD SPECIMEN Ordering Facility: [facility] Address: [address] [place] [id number] Result Comment: Aster min K Antagonist (VKA) Therapeutic Range: INR 2 to 3 (Target INR of 2.5) Note: For patients treated with VKA drugs, such as warfarin, the [employer] 2012 Guideline recommends [...] Chest 2012, 141:7S-47S Goldie RA, et al. [facility] 2017, 70: 252-289 Performed By: #### V ITB6 #### [facility] CLIA [id number] [address] [place] [address] PT Coag (PPP) [Time] 10.8 s Normal 9.7-13.0 [facility] Comment on above: Order Comment: Speci men Type: BLOOD SPECIMEN Ordering Facility: [facility] Address: [place] [address] Performed By: #### V ITB6 #### [facility] CLIA [id number] [address] [place] [address] Tacrolimus Bld-mCncon 2022 Tacrolimus (Bld) [Mass/Vol] 8.4 ng/mL Normal 5.0-20.0 [facility] Comment on above: Order Comment: Speci men Type: BLOOD SPECIMEN Ordering Facility: [facility] Address: [address] [place] [address] Result Comment: Nannette vidualized target levels for [...] situation. Test performed by chemiluminescent immunoassay using [employer] i. Performed By: #### 2 4323-8 #### [facility] CLIA [id number] 9500 [facility] [address] [address] [place] ANES POSTPROC EVALon 023 ANES POSTPROC EVAL HNO ID: [id number] Author: Lucas Moseley MD Service: ? Author Type: Anesthesiologist Type: Anesthesia Postprocedure Evaluation Filed: 09/04/2022 11:10 AM Note Text: POST ANESTHESIA EVALUATION NOTE : 1985 Procedure Summary Date: 09/04/22 Room / Location: Gastroenterology Anesthesia Start: 0851 Anesthesia Stop: 1017 Procedure: EGD DIAGNOSTIC Diagnosis: (Stent removal) Scheduled Providers: Betina Quezada MD; Lucas Moseley MD; Suzie Knott APRN.RELATIONSHIP MANAGEMENT LEAD Responsible Provider: Lucas Moseley MD Anesthesia Type: [...] care. Anesthesia Observations No Documentation SIGNATURE: Lucas Moselye MD PATIENT NAME: Chuckie Villalta DATE: September 04, 2022 TIME: 11:10 AM CSN: [id number] Normal [facility] ANES PRE-OPon 09-04-2022 ANES PRE-OP HNO ID: [id number] Author: Lucas Moseley MD Service: ? Author Type: Anesthesiologist Type: Anesthesia Preprocedure Evaluation Filed: 09/04/2022 8:14 AM Note Text: ANESTHESIOLOGY DAY OF SURGERY NOTE : 1985 Procedure Information Date/Time: 09/04/22 1300 Scheduled providers: Betina Quezada MD; Lucas Moseley MD; Suzie Knott APRN.RELATIONSHIP MANAGEMENT LEAD Procedure: EGD DIAGNOSTIC Location: Gastroenterology Estimated body [...] and consent discussed: yes. Patient / Responsible Democrat agrees to proceed: yes Patient / Surrogate [...] administration yosef (more content not included)... Normal [facility] CBC panel Auto (Bld)on 09-04 Erythrocyte distribution width (RBC) [Ratio] 17.1 % High 11.5-15.0 [facility] Comment on above: Order Comment: Speci men Type: BLOOD SPECIMEN Ordering Facility: [facility] Address: [address] [place] [address] Performed By: #### 5 0189-0, 40708-5, 2132-9 #### [facility] CLIA [id number] [address] [place], [place] [address]K [id number] [place] Hematocrit (Bld) [Volume fraction] 36.1 % Low 39.0-51.0 [facility] Comment on above: Order Comment: Speci men Type: BLOOD SPECIMEN Ordering Facility: [facility] Address: [address] [place] [address] Performed By: #### 5 0189-0, 18138-4, 2132-03 #### [facility] CLIA [id number] [address] [place] [address] [place] Hemoglobin (Bld) [Mass/Vol] 12.5 g/dL Low 13.0-17.0 [facility] Comment on above: Order Comment: Speci men Type: BLOOD SPECIMEN Ordering Facility: [facility] Address: [address] [place] [address] Performed By: #### 5 0189-0, , 2132-03 #### [facility] CLIA [id number] [address] [place] [address] [place] MCH (RBC) [Entitic mass] 30.0 pg Normal 26.0-34.0 [facility] Comment on above: Order Comment: Speci men Type: BLOOD SPECIMEN Ordering Facility: [facility] Address: [address] [place], [place] [address] Performed By: #### 5 0189-0, , 2132-03 #### [facility] CLIA [id number] [address] [place] [address] [place] MCHC (RBC) [Mass/Vol] 34.6 g/dL Normal 30.5-36.0 [facility] Comment on above: Order Comment: Speci men Type: BLOOD SPECIMEN Ordering Facility: [facility] Address: [address] [place] [address] Performed By: #### 5 0189-0, 28815-8, 2132-03 #### [facility] CLIA [id number] [address] [place] [address] [place] MCV (RBC) [Entitic vol] 86.8 fL Normal 80.0-100.0 [facility] Comment on above: Order Comment: Speci men Type: BLOOD SPECIMEN Ordering Facility: [facility] Address: [address] [place] [address] Performed By: #### 5 0189-0, 30020-9, 2132-03 #### [facility] CLIA [id number] [address] [place] [address] [place] Nucleated RBC (Bld) [#/Vol] 10*3/uL Normal <0.01 [facility] Comment on above: Order Comment: Speci men Type: BLOOD SPECIMEN Ordering Facility: [facility] Address: [address] [place] [address] Performed By: #### 5 0189-0, , 2132-03 #### [facility] CLIA [id number] [address] [place] [address] [place] Platelet mean volume (Bld) [Entitic vol] 11.8 fL Normal 9.0-12.7 [facility] Comment on above: Order Comment: Speci men Type: BLOOD SPECIMEN Ordering Facility: [facility] Address: [address] [place] [address] Performed By: #### 5 0189-0, , 2132-03 #### [facility] CLIA [id number] [address] [place] [address] [place] Platelets (Bld) [#/Vol] 47 10*3/uL Low 150-400 [facility] Comment on above: Order Comment: Speci men Type: BLOOD SPECIMEN Ordering Facility: [facility] Address: [address] [place] [address] Result Comment: Resu lts checked and verified.No clot detected. Performed By: #### 5 0189-0, , 2132-03 #### [facility] CLIA [id number] [address] [place] [address] [place] RBC (Bld) [#/Vol] 4.16 10*6/uL Low 4.20-6.00 [facility] Comment on above: Order Comment: Speci men Type: BLOOD SPECIMEN Ordering Facility: [facility] Address: [address] [place] [address] Performed By: #### 5 0189-0, 88718-4, 9 #### [facility] CLIA [id number] [address] [place] [address] [place] WBC (Bld) [#/Vol] 3.04 10*3/uL Low 3.70-11.00 [facility] Comment on above: Order Comment: Speci men Type: BLOOD SPECIMEN Ordering Facility: [facility] Address: [address] [place] [address] Performed By: #### 5 0189-0, 60298-7, 9 #### [facility] CLIA [id number] [address] [place] [address] [place] CNPNon 09-04-2022 CNPN Telephone ([facility]) CHUCKIE VILLALTA ([id number]) 1985 M TRN Date Time Provider Department 09/04/22 BETINA QUEZADA [facility] During your visit today, we [...] 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] Order(s):ERCP [GI18] Order #: [id number] FUTURE Prescriptions as of 09/04/2022 - tacrolimus [...] Encounter Status:Closed by BETINA QUEZADA on 09/04/22 [facility] COPPER BLOODon 09-04-2022 Copper [Mass/Vol] 86 ug/dL Normal 70-140 [facility] Comment on above: Order Comment: Speci men Type: BLOOD SPECIMEN Ordering Facility: [facility] Address: [address] Result Comment: This test was developed and its performance characteristics determined by [facility] Pathology and Laboratory Medicine [place] ([facility]). It has not been cleared or approved by the FDA. -[facility] is regulated under CLIA as qualified to perform high-complexity testing. This test is used for clinical purposes. It should not be regarded as investigational or for research. Performed By: #### 5 763-8, COPPER #### [facility] CLIA [id number] [address] [place] [address] [place] Comprehensive metabolic 2000 panelon 09-04-2022 Albumin [Mass/Vol] 3.7 g/dL Low 3.9-4.9 [facility] Comment on above: Order Comment: Speci men Type: BLOOD SPECIMEN Ordering Facility: [facility] Address: [address] [place], [place] [address] Performed By: #### 2 4323-8 #### [facility] CLIA [id number] [address] [place] [address] [place] ALP [Catalytic activity/Vol] 104 U/L Normal 38-113 [facility] Comment on above: Order Comment: Speci men Type: BLOOD SPECIMEN Ordering Facility: [facility] Address: [address] [place] [id number] Performed By: #### 2 4323-8 #### [facility] CLIA [id number] [address] [place] [address] [place] ALT [Catalytic activity/Vol] 101 U/L High 10-54 [facility] Comment on above: Order Comment: Speci men Type: BLOOD SPECIMEN Ordering Facility: [facility] Address: [address] Performed By: #### 2 4323-8 #### [facility] CLIA [id number] [address] [place] [address] [place] Anion gap [Moles/Vol] 10 mmol/L Normal 9-18 [facility] Comment on above: Order Comment: Speci men Type: BLOOD SPECIMEN Ordering Facility: [facility] Address: [address] Performed By: #### 2 4323-8 #### [facility] CLIA [id number] [address] [place] [address] [place] AST [Catalytic activity/Vol] 87 U/L High 14-40 [facility] Comment on above: Order Comment: Speci men Type: BLOOD SPECIMEN Ordering Facility: [facility] Address: [address] [place], [place] [address] Performed By: #### 2 4323-8 #### [facility] CLIA [id number] [address] [place] [address] [place] Bilirubin [Mass/Vol] 3.1 mg/dL High 0.2-1.3 [facility] Comment on above: Order Comment: Speci men Type: BLOOD SPECIMEN Ordering Facility: [facility] Address: [address] Performed By: #### 2 4323-8 #### [facility] CLIA [id number] [address] [place] [address] [place] Calcium [Mass/Vol] 9.3 mg/dL Normal 8.5-10.2 [facility] Comment on above: Order Comment: Speci men Type: BLOOD SPECIMEN Ordering Facility: [facility] Address: [address] [place] [address] Performed By: #### 2 4323-8 #### [facility] CLIA [id number] [address] [place] [address] [place] Chloride [Moles/Vol] 101 mmol/L Normal 97-105 [facility] Comment on above: Order Comment: Speci men Type: BLOOD SPECIMEN Ordering Facility: [facility] Address: [address] [place] [address] Performed By: #### 2 4323-8 #### [facility] CLIA [id number] [address] [place] [address] [place] CO2 [Moles/Vol] 25 mmol/L Normal 22-30 [facility] Comment on above: Order Comment: Speci men Type: BLOOD SPECIMEN Ordering Facility: [facility] Address: [address] [place] [address] Performed By: #### 2 4323-8 #### [facility] CLIA [id number] [address] [place] [address] [place] Creatinine [Mass/Vol] 1.09 mg/dL Normal 0.73-1.22 [facility] Comment on above: Order Comment: Speci men Type: BLOOD SPECIMEN Ordering Facility: [facility] Address: [address] [place] [address] Performed By: #### 2 4323-8 #### [facility] CLIA [id number] [address] [place] [address] [place] ESTIMATED GLOMERULAR FILTRATION RATE 90 mL/min/1.73m??? Normal >=60 [facility] Comment on above: Order Comment: Speci men Type: BLOOD SPECIMEN Ordering Facility: [facility] Address: [address] [place] [address] Result Comment: Brenda mated Glomerular Filtration Rate [...] GFR. Performed By: #### 2 4323-8 #### [facility] CLIA [id number] [address] [place] [address] [place] Glucose [Mass/Vol] 123 mg/dL High 74-99 [facility] Comment on above: Order Comment: Specjake madrid Type: BLOOD SPECIMEN Ordering Facility: [facility] Address: [address] [place] [address] Result Comment: The [employer] (ADA) provides guidance for cutoff [...] Standards of Medical Care in Diabetes 2016, [employer]. Diabetes Care. 2016.39(Suppl 1). Performed By: #### 2 4323-8 #### [facility] CLIA [id number] [address] [place] [address] [place] Potassium [Moles/Vol] 4.1 mmol/L Normal 3.7-5.1 [facility] Comment on above: Order Comment: Orlandoi men Type: BLOOD SPECIMEN Ordering Facility: [facility] Address: [address] [place] [address] Performed By: #### 2 4323-8 #### [facility] CLIA [id number] [address] [place] [address] [place] Protein [Mass/Vol] 6.7 g/dL Normal 6.3-8.0 [facility] Comment on above: Order Comment: Noe [place] Type: BLOOD SPECIMEN Ordering Facility: [facility] Address: [address] [place] [address] Performed By: #### 2 4323-8 #### [facility] CLIA [id number] [address] [place] Sodium [Moles/Vol] 136 mmol/L Normal 136-144 [facility] Comment on above: Order Comment: Speci men Type: BLOOD SPECIMEN Ordering Facility: [facility] Address: [address] [place], [place] [address] Performed By: #### 2 4323-8 #### [facility] CLIA [id number] [address] [place] [address] [place] Urea nitrogen [Mass/Vol] 7 mg/dL Low 9-24 [facility] Comment on above: Order Comment: Speci men Type: BLOOD SPECIMEN Ordering Facility: [facility] Address: [address] [place] [address] Performed By: #### 2 4323-8 #### [facility] CLIA [id number] [address] [place] [address] [place] FLUORO ERCP (POC) FOR DDI US E ONLYon 09-04-2022 [facility] NURSING PROGon 09-04-2022 NURSING PROG HNO ID: [id number] Author: Adeline Martínez RN Service: Nursing Author [...] RN In Department: HOSP MAIN G100 Normal [facility] PT panel Coag (PPP)on 2022 INR Coag (PPP) [Relative time] 1.1 {INR} Normal 0.9-1.3 [facility] Comment on above: Order Comment: Speci men Type: BLOOD SPECIMEN Ordering Facility: [facility] Address: [address] [place] [address] Result Comment: Aster min K Antagonist (VKA) Therapeutic Range: INR 2 to 3 (Target INR of 2.5) Note: For patients treated with VKA drugs, such as warfarin, the [employer] 2012 Guideline recommends [...] Chest 2012, 141:7S-47S Goldie RA, et al. [facility] 2017, 70: 252-289 Performed By: #### 5 763-8, COPPER #### [facility] IA [id number] [address] [place] [address] [place] PT Coag (PPP) [Time] 11.0 s Normal 9.7-13.0 [facility] Comment on above: Order Comment: Noe [place] Type: BLOOD SPECIMEN Ordering Facility: [facility] Address: [address] [place], [place] [address] Performed By: #### 5 763-8, COPPER #### [facility] IA [id number] [address] [place] [address] [place] Tacrolimus Bld-mCncon 2022 Tacrolimus (Bld) [Mass/Vol] 10.5 ng/mL Normal 5.0-20.0 [facility] Comment on above: Order Comment: Noe [place] Type: BLOOD SPECIMENOrdering Facility: [facility] Address: [address] [place], [place] [address] Result Comment: Nannette vidualized target levels for [...] Alinity i. Performed By: #### 1 1253-2 ####[facility] [id number] [facility] [id number] [facility] VITAMIN B6/PYRIDOXINon 09-04 VITAMIN B6 19.3 nmol/L Low 20.0-125.0 [facility] Comment on above: Order Comment: Specjake madrid Type: BLOOD SPECIMEN Ordering Facility: [facility] Address: [address] [place] [address] Result Comment: INTE RPRETIVE INFORMATION: Vitamin B6 (Pyridoxal 5-Phosphate) Pyridoxal 5'-phosphate measured in a specimen collected following an 8-hour or overnight fast accurately indicates vitamin B6 nutritional status. Non-fasting specimen concentration reflects recent vitamin intake. This test was developed and its performance characteristics determined by [employer]. It has not been cleared or approved by the [place] Food and Drug Administration. This test was performed in a CLIA certified laboratory and is intended for clinical purposes. Performed By: [email or web address] [address] [place] [address] Wash [place] Worker: Mic Rangel MD, PhD Performed By: #### V ITB6 #### [facility] CLIA [id number] [address] [place] [address] Zinc SerPl-mCncon 09-04-2022 Zinc [Mass/Vol] 57 ug/dL Low 60-120 [facility] Comment on above: Order Comment: Speci men Type: BLOOD SPECIMEN Ordering Facility: [facility] Address: [address] [place], [place] [address] Result Comment: This test was developed and its performance characteristics determined by [facility] [place] ([facility]). It has not been cleared or approved by the FDA. -[facility] is regulated under CLIA as qualified to perform high-complexity testing. This test is used for clinical purposes. It should not be regarded as investigational or for research. Performed By: #### 5 763-8, COPPER #### [facility] CLIA [id number] [address] [place] [address] [place] BRIEF OP NOTon 09-03-2022 BRIEF OP NOT HNO ID: [id number] Author: Howard Shepherd MD Service: Radiology Author Type: Physician Type: Brief Op Note Filed: 09/03/2022 2:51 PM Note Text: BRIEF OPERATIVE / PROCEDURE NOTE LOG ID: [id number] SURGERY/PROCEDURE DATE: 08/31/2022 - 09/03/2022 INCISION/PROCEDURE START TIME: 2:34 PM INCISION CLOSE/PROCEDURE END TIME: 2:39 PM SURGEON(S)/PROCEDURALIS T(S) AND CHAIR TRIMMER(S): Surgeon(s) and Role: * Howard Shepherd MD [...] POST-OP/POST-PROCEDURE DIAGNOSIS: Same as Preop SIGNATURE: Howard Shpeherd MD PATIENT NAME: Chuckie Villalta DATE: September 03, 2022 TIME: 2:50 PM Normal [facility] CASE MANAGEMon 09-03-2022 CASE MANAGEM HNO ID: [id number] Author: JEY Felton Service: ? Author Type: Environmental Technology Professor Type: Care Mgt Progress Note Filed: 09/03/2022 [...] Management. SIGNATURE: JEY Jim PATIENT NAME: Chuckie Owensran DATE: September 03, 2022 TIME: 10:03 AM PAGER/CONTACT #: Normal [facility] CBC panel Auto (Bld)on 09-03 Erythrocyte distribution width (RBC) [Ratio] 16.9 % High 11.5-15.0 [facility] Comment on above: Order Comment: Speci men Type: BLOOD SPECIMENOrdering Facility: [facility] Address: [address] [place] [address] Performed By: #### 3 1201-7, 02698-5, IPFR ####[facility] [id number] [place] [address] [place] Hematocrit (Bld) [Volume fraction] 33.9 % Low 39.0-51.0 [facility] Comment on above: Order Comment: Speci men Type: BLOOD SPECIMENOrdering Facility: [facility] Address: [address] [place] [address] Performed By: #### 3 1201-7, 65021-2, IPFR ####[facility] [id number] [place] [address] [place] Hemoglobin (Bld) [Mass/Vol] 12.0 g/dL Low 13.0-17.0 [facility] Comment on above: Order Comment: Speci men Type: BLOOD SPECIMENOrdering Facility: [facility] Address: [address] [place], [place] [address] Performed By: #### 3 1201-7, 77344-7, IPFR ####[facility] [id number] [place] [address] [place] MCH (RBC) [Entitic mass] 30.2 pg Normal 26.0-34.0 [facility] Comment on above: Order Comment: Speci men Type: BLOOD SPECIMENOrdering Facility: [facility] Address: [address] [place] [address] Performed By: #### 3 1201-7, 13265-6, IPFR ####[facility] [id number] [place] [address] [place] MCHC (RBC) [Mass/Vol] 35.4 g/dL Normal 30.5-36.0 [facility] Comment on above: Order Comment: Speci men Type: BLOOD SPECIMENOrdering Facility: [facility] Address: [address] [place], [place] [address] Performed By: #### 3 1201-7, 35994-4, IPFR ####[facility] [id number] [place] [address] [place] MCV (RBC) [Entitic vol] 85.4 fL Normal 80.0-100.0 [facility] Comment on above: Order Comment: Speci men Type: BLOOD SPECIMENOrdering Facility: [facility] Address: [address] [place], [place] [address] Performed By: #### 3 1201-7, 69405-2, IPFR ####[facility] [id number] [place] [address] [place] Nucleated RBC (Bld) [#/Vol] 10*3/uL Normal <0.01 [facility] Comment on above: Order Comment: Speci men Type: BLOOD SPECIMENOrdering Facility: [facility] Address: [address] [place], [place] [address] Performed By: #### 3 1201-7, 39975-2, IPFR ####[facility] [id number] [place] [address] [place] Platelet mean volume (Bld) [Entitic vol] 12.1 fL Normal 9.0-12.7 [facility] Comment on above: Order Comment: Speci men Type: BLOOD SPECIMENOrdering Facility: [facility] Address: [address] [place], [place] [address] Performed By: #### 3 1201-7, 95228-1, IPFR ####[facility] [id number] [place] [id number] [place] Platelets (Bld) [#/Vol] 39 10*3/uL Low 150-400 [facility] Comment on above: Order Comment: Speci men Type: BLOOD SPECIMENOrdering Facility: [facility] Address: [address] [place] [address] Result Comment: No c lot detected. Performed By: #### 3 1201-7, 96144-5, IPFR ####[facility] [id number] [place] [address] [place] RBC (Bld) [#/Vol] 3.97 10*6/uL Low 4.20-6.00 [facility] Comment on above: Order Comment: Speci men Type: BLOOD SPECIMENOrdering Facility: [facility] Address: [address] [place] [address] Performed By: #### 3 1201-7, 78726-8, IPFR ####[facility] [id number] [place] [address] [place] WBC (Bld) [#/Vol] 2.84 10*3/uL Low 3.70-11.00 [facility] Comment on above: Order Comment: Speci men Type: BLOOD SPECIMENOrdering Facility: [facility] Address: [address] [place] [address] Performed By: #### 3 1201-7, 22337-5, IPFR ####[facility] [id number] [place] [id number] [facility] CONSULTon 09-03-2022 CONSULT HNO ID: [id number] Author: Agnes Johnson DO Service: Hematology Author Type: Physician Type: Consults Filed: 09/04/2022 3:29 PM Note Text: PATIENT NAME: Chuckie Villalta [facility] NO[facility] [id number] DATE OF SERVICE: September 03, 2022 PRIMARY [...] DIAGNOSTIC THAI (more content not included)... Normal [facility] Comprehensive metabolic 2000 panelon 09-03-2022 Albumin [Mass/Vol] 3.4 g/dL Low 3.9-4.9 [facility] Comment on above: Order Comment: Speci men Type: BLOOD SPECIMEN Ordering Facility: [facility] Address: [address] Performed By: #### 5 0189-0, , 2132-03 #### [facility] CLIA [id number] [address] [place] [address] [place] ALP [Catalytic activity/Vol] 99 U/L Normal 38-113 [facility] Comment on above: Order Comment: Speci men Type: BLOOD SPECIMEN Ordering Facility: [facility] Address: [address] Performed By: #### 5 0189-0, , 2132-03 #### [facility] CLIA [id number] [address] [place] [address] [place] ALT [Catalytic activity/Vol] 113 U/L High 10-54 [facility] Comment on above: Order Comment: Speci men Type: BLOOD SPECIMEN Ordering Facility: [facility] Address: [address] Performed By: #### 5 0189-0, , 2132-03 #### [facility] CLIA [id number] [address] [place] [address] [place] Anion gap [Moles/Vol] 10 mmol/L Normal 9-18 [facility] Comment on above: Order Comment: Speci men Type: BLOOD SPECIMEN Ordering Facility: [facility] Address: [address] [place] [address] Performed By: #### 5 0189-0, 95175-2, 2132-03 #### [facility] CLIA [id number] [address] [place] [address] [place] AST [Catalytic activity/Vol] 114 U/L High 14-40 [facility] Comment on above: Order Comment: Speci men Type: BLOOD SPECIMEN Ordering Facility: [facility] Address: [address] Performed By: #### 5 0189-0, 73594-6, 2132-03 #### [facility] CLIA [id number] [address] [place] [address] [place] Bilirubin [Mass/Vol] 5.9 mg/dL High 0.2-1.3 [facility] Comment on above: Order Comment: Speci men Type: BLOOD SPECIMEN Ordering Facility: [facility] Address: [address] Performed By: #### 5 0189-0, , 2132-03 #### [facility] CLIA [id number] [address] [place] [address] [place] Calcium [Mass/Vol] 8.6 mg/dL Normal 8.5-10.2 [facility] Comment on above: Order Comment: Speci men Type: BLOOD SPECIMEN Ordering Facility: [facility] Address: [address] [place] [address] Performed By: #### 5 0189-0, 97200-0, 2132-03 #### [facility] CLIA [id number] [address] [place] [address] [place] Chloride [Moles/Vol] 103 mmol/L Normal 97-105 [facility] Comment on above: Order Comment: Speci men Type: BLOOD SPECIMEN Ordering Facility: [facility] Address: [address] Performed By: #### 5 0189-0, , 2132-03 #### [facility] CLIA [id number] [address] [place] [address] [place] CO2 [Moles/Vol] 22 mmol/L Normal 22-30 [facility] Comment on above: Order Comment: Speci men Type: BLOOD SPECIMEN Ordering Facility: [facility] Address: [address] [place] [address] Performed By: #### 5 0189-0, , 2132-03 #### [facility] CLIA [id number] [address] [place] [address] [place] Creatinine [Mass/Vol] 1.15 mg/dL Normal 0.73-1.22 [facility] Comment on above: Order Comment: Speci men Type: BLOOD SPECIMEN Ordering Facility: [facility] Address: [address] [place] [address] Performed By: #### 5 0189-0, , 2132-03 #### [facility] CLIA [id number] [address] [place] [address] [place] ESTIMATED GLOMERULAR FILTRATION RATE 85 mL/min/1.73m??? Normal >=60 [facility] Comment on above: Order Comment: Speci men Type: BLOOD SPECIMEN Ordering Facility: [facility] Address: [address] [place] [address] Result Comment: Brenda mated Glomerular Filtration Rate [...] actual GFR. Performed By: #### 5 0189-0, 02517-5, 2132-03 #### [facility] CLIA [id number] [facility] [place] [address] [place] Glucose [Mass/Vol] 125 mg/dL High 74-99 [facility] Comment on above: Order Comment: Speci men Type: BLOOD SPECIMEN Ordering Facility: [facility] Address: [address] [place] [address] Result Comment: The [employer] (ADA) provides guidance for cutoff [...] Standards of Medical Care in Diabetes 2016, [employer]. Diabetes Care. 2016.39(Suppl 1). Performed By: #### 5 0189-0, , 2132-03 #### [facility] CLIA [id number] [address] [place] [address] [place] Potassium [Moles/Vol] 3.5 mmol/L Low 3.7-5.1 [facility] Comment on above: Order Comment: Speci men Type: BLOOD SPECIMEN Ordering Facility: [facility] Address: [address] [place], [place] [address] Performed By: #### 5 0189-0, , 2132-03 #### [facility] CLIA [id number] [address] [place] [address] [place] Protein [Mass/Vol] 5.9 g/dL Low 6.3-8.0 [facility] Comment on above: Order Comment: Speci men Type: BLOOD SPECIMEN Ordering Facility: [facility] Address: [address] [place], [place] [address] Performed By: #### 5 0189-0, , 2132-03 #### [facility] CLIA [id number] [address] [place] [address] [place] Sodium [Moles/Vol] 135 mmol/L Low 136-144 [facility] Comment on above: Order Comment: Speci men Type: BLOOD SPECIMEN Ordering Facility: [facility] Address: [address] [place] [address] Performed By: #### 5 0189-0, 22914-5, 2132-03 #### [facility] CLIA [id number] [address] [place] [address] [place] Urea nitrogen [Mass/Vol] 8 mg/dL Low 9-24 [facility] Comment on above: Order Comment: Speci men Type: BLOOD SPECIMEN Ordering Facility: [facility] Address: [address] [place] [address] Performed By: #### 5 0189-0, , 2132-03 #### [facility] CLIA [id number] [address] [place] [address] [place] Creatinine Unsp time (U) [Ma ss/Vol]on 09-03-2022 Creatinine (U) [Mass/Vol] 75.6 mg/dL Normal 20.0-300.0 [facility] Comment on above: Order Comment: Speci men Type: BLOOD SPECIMEN Ordering Facility: [facility] Address: [address] [place] [address] Performed By: #### 5 763-8, COPPER #### [facility] IA [id number] [address] [place] [address] [place] HISTORY PHYSICALon HISTORY PHYSICAL HNO ID: [id number] Author: Howard Shepherd MD Service: Radiology Author [...] September 03, 2022 TIME: 12:52 PM PAGER: [phone] Normal [facility] HIV 1+2 Ab IA Qlon 3 HIV 1 and 2 Ab IA.rapid Nom Normal [facility] Comment on above: Order Comment: Speci men Type: BLOOD SPECIMENOrdering Facility: [facility] Address: [address] [place] [address] Result Comment: Test not indicated. Performed By: #### 3 1201-7, 00713-2, IPFR ####[facility] [id number] [place] [address] [place] HIV 1+2 Ab+HIV1 p24 Ag IA Ql Non-Reactive Normal Nonreactive [facility] Comment on above: Order Comment: Speci men Type: BLOOD SPECIMENOrdering Facility: [facility] Address: [address] [place] [address] Performed By: #### 3 1201-7, 34595-0, IPFR ####[facility] [id number] [place] [address] [place] HIVINT Normal [facility] Comment on above: Order Comment: Speci men Type: BLOOD SPECIMENOrdering Facility: [facility] Address: [address] [place] [address] Result Comment: No e vidence of HIV-1 or HIV-2 infection. Should recent infection be suspected, repeat testing may be considered 2-3 weeks after this draw. [place] Rev. Code 3701.243(E): This information has been [...] or diagnoses. Performed By: #### 3 1201-7, 43814-5, IPFR ####[facility] [id number] [place] [address] [place] IMMATURE PLATELET FRACTIONon 09-03-2022 Platelets reticulated/100 platelets Auto (Bld) 11.9 % High 0.9-7.2 [facility] Comment on above: Order Comment: Speci men Type: BLOOD SPECIMENOrdering Facility: [facility] Address: [address] [place] [address] Performed By: #### 3 1201-7, 93249-2, IPFR ####[facility] [id number] [place] [address] [place] bilirubin panel [Ma ss/Vol]on 09-03-2022 Bilirubin [Mass/Vol] 5.7 mg/dL High 0.2-1.3 [facility] Comment on above: Order Comment: Speci men Type: BLOOD SPECIMEN Ordering Facility: [facility] Address: [address] [place] [address] Performed By: #### 5 0189-0, 36336-5, 2132-03 #### [facility] CLIA [id number] [address] [place] [address] [place] Bilirubin.conjugated [Mass/Vol] 4.2 mg/dL High <0.2 [facility] Comment on above: Order Comment: Speci men Type: BLOOD SPECIMEN Ordering Facility: [facility] Address: [address] [place], [place] [address] Performed By: #### 5 0189-0, 88255-4, 2132-03 #### [facility] CLIA [id number] [address] [place] [address] [place] Bilirubin.indirect [Mass/Vol] 1.5 mg/dL High <1.4 [facility] Comment on above: Order Comment: Speci men Type: BLOOD SPECIMEN Ordering Facility: [facility] Address: [address] [place] [address] Performed By: #### 5 0189-0, , 2132-03 #### [facility] CLIA [id number] [address] [place] [address] [place] PT EDon 09-03-2022 PT ED HNO ID: [id number] Author: Kia Lyon RN Service: Nursing Author [...] RN In Department: HOSP MAIN G100 Normal [facility] Platelets Auto (Bld) [#/Vol] on 09-03-2022 Platelets (Bld) [#/Vol] 38 10*3/uL Low 150-400 [facility] Comment on above: Order Comment: Speci men Type: BLOOD SPECIMEN Ordering Facility: [facility] Address: [address] [place], [place] [address] Result Comment: No c lot detected. Performed By: #### 5 763-8, COPPER #### [facility] CLIA [id number] [address] [facility] [id number] SURGICAL PATHOLOGYon 023 ADDENDUM 1: Normal [facility] Comment on above: Order Comment: Speci men Type: TISSUE SPECIMENOrdering Facility: [facility] Address: [address] [place] [address] Result Comment: This addendum is issued to [...] by the performing laboratory within [facility]???[facility] [place] ([facility], [facility], [facility], [facility], [facility], or [facility]) in a manner consistent with [...] at 4:39 PM Performed By: #### S ####[facility] [id number] [address] CASE REPORT Normal [facility] Comment on above: Order Comment: [place] Type: TISSUE SPECIMENOrdering Facility: [facility] Address: [address] [place] [address] Result Comment: Surg ical Pathology Report Case: [id number] Authorizing Provider: Howard Shepherd MD Collected: 09/03/2022 02:35 PM Ordering Location: [place] [address] Received: 09/03/2022 03:04 PM Pathologist: August Oh MD Specimen: LIVER TRANSPLANT BIOPSY Performed By: #### S ####[facility] [id number] [address] CLINICAL HISTORY s/p liver transplant , elevated LFT's, history of rejection. Normal [facility] Comment on above: Order Comment: Noe [place] Type: TISSUE SPECIMENOrdering Facility: [facility] Address: [address] [place] [address] Performed By: #### S ####[facility] [id number] [address] DIAGNOSIS COMMENT Normal [facility] [facility] Comment on above: Order Comment: Noe [place] Type: TISSUE SPECIMENOrdering Facility: [facility] Address: [address] [place] [address] Result Comment: The trichrome stain confirms the [...] by the performing laboratory within [facility]???s Molly C[facility] Pathology and Laboratory Medicine [place] ([facility], [facility], [facility], [facility], [facility], or [facility]) in a manner consistent with CLIA requirements. One or more of these tests have not been cleared or approved by the FDA. [facility] is regulated under CLIA as qualified to perform high-complexity testing. These tests are used for clinical purposes. They should not be regarded as investigational or for research. Positive and negative controls stain appropriately. Performed By: #### S ####[facility] [id number] [address] FINAL DIAGNOSIS Normal [facility] Comment on above: Order Comment: Speci men Type: TISSUE SPECIMENOrdering Facility: [facility] Address: [address] [address] Result Comment: Live r allograft, approximately 4 years 2 months post-transplantation, biopsy: - Liver parenchyma with reactive/regenerative change and focal portal change, indeterminate for T-cell mediated rejection (acute cellular rejection). Performed By: #### S ####[facility]IA [id number] [address] FINAL PERFORMING LAB Normal [facility] Comment on above: Order Comment: Speci men Type: TISSUE SPECIMENOrdering Facility: [facility] Address: [address] [address] Result Comment: Diag nostic interpretation performed at [facility], [address] [address] CLIA# [id number] Wash House Worker: Jony Gallegos M.D. Performed By: #### S ####[facility] LABIA [id number] [place] [address] [place] GROSS DESCRIPTION Normal [facility] Comment on above: Order Comment: Speci men Type: TISSUE SPECIMENOrdering Facility: [facility] Address: [address] [place] [address] Result Comment: A. L IVER TRANSPLANT BIOPSY Received in formalin is one segment of cylindrical tissue measuring 1.7 x 0.1 x 0.1 cm, montanez-orange and of a soft and friable consistency. Totally submitted in one cassette. BC September 03, 2022 5:19 PM Gross examination performed at [facility], [address] [place] [address] Performed By: #### S ####[facility] LABIA [id number] [place] [address] [place] Sodium ?Tm Ur-sCncon 023 Sodium Unsp time (U) [Moles/Vol] 82 mmol/L Normal 14-216 [facility] Comment on above: Order Comment: Speci men Type: BLOOD SPECIMEN [facility] Address: [address] [place] [address] Performed By: #### 5 763-8, COPPER #### [facility] CLIA [id number] [address] [place] [address] [place] TOX SCREEN ROUT URon 023 Amphetamines Confirm (U) [Mass/Vol] Negative Normal Negative [facility] Comment on above: Order Comment: Speci men Type: BLOOD SPECIMEN Ordering [facility]: [facility] Address: [address] [place] [address] Result Comment: Cuto ff threshold at 1000 ng/mL. Performed By: #### 5 763-8, COPPER #### [facility] CLIA [id number] [address] [place] [address] [place] BARBITURATES, URINE Negative Normal Negative [facility] Comment on above: Order Comment: Speci men Type: BLOOD SPECIMEN Ordering Facility: [facility] Address: [address] [address] Result Comment: Cuto ff threshold at 200 ng/mL. Performed By: #### 5 763-8, COPPER #### [facility] CLIA [id number] [address] [place] [address] [place] BENZODIAZEPINES, UR Negative Normal Negative [facility] Comment on above: Order Comment: Speci men Type: BLOOD SPECIMEN Ordering Facility: [facility] Address: [address] [place] [address] Result Comment: Cuto ff threshold at 200 ng/mL. Performed By: #### 5 763-8, COPPER #### [facility] CLIA [id number] [address] [place] [address] [place] CANNABINOIDS,URINE Negative Normal Negative [facility] Comment on above: Order Comment: Speci men Type: BLOOD SPECIMEN Ordering [facility]: [facility] Address: [address] [place] [address] Result Comment: Cuto ff threshold at 50 ng/mL. Performed By: #### 5 763-8, COPPER #### [facility] CLIA [id number] [facility] [place] [address] [place] Cocaine Ql (U) Negative Normal Negative [facility] Comment on above: Order Comment: Speci men Type: BLOOD SPECIMEN Ordering [facility]: [facility] Address: [address] [place] [address] Result Comment: Cuto ff threshold at 300 ng/mL. Performed By: #### 5 763-8, COPPER #### [facility] CLIA [id number] [address] [place] [address] [place] Ethanol (U) [Mass/Vol] <11 Normal <11 [facility] Comment on above: Order Comment: Speci men Type: BLOOD SPECIMEN Ordering Facility: [facility] Address: [address] [address] Performed By: #### 5 763-8, COPPER #### [facility] CLIA [id number] [address] [place] [address] [place] Opiates Screen Ql (U) Positive Abnormal Negative [facility] Comment on above: Order Comment: Speci men Type: BLOOD SPECIMEN Ordering [facility]: [facility] Address: [address] [place] [address] Result Comment: Cuto ff threshold at 300 ng/mL. Performed By: #### 5 763-8, COPPER #### [facility] CLIA [id number] [address] [place] [address] [place] oxyCODONE cutoff Screen (U) [Mass/Vol] Negative Normal Negative [facility] Comment on above: Order Comment: Speci men Type: BLOOD SPECIMEN Ordering [facility]: [facility] Address: [address] [place] [address] Result Comment: Cuto ff threshold at 100 ng/mL. Performed By: #### 5 763-8, COPPER #### [facility] CLIA [id number] [address] [place] [address] [place] Phencyclidine Ql (U) Negative Normal Negative [facility] Comment on above: Order Comment: Speci men Type: BLOOD SPECIMEN Ordering [facility]: [facility] Address: [address] [place] [address] Result Comment: Cuto ff threshold at 25 ng/mL. Performed By: #### 5 763-8, COPPER #### [facility] CLIA [id number] [address] [place] [address] [place] TYPE + SCREENon 09-03-2022 ABO A Normal [facility] Comment on above: Order Comment: Speci men Type: BLOOD SPECIMENOrdering Facility: [facility] Address: [address] [place] [address] Performed By: #### T SCR ####[facility] BANKCLIA [id number] [address] HISTORICAL AB SCR STATUS Positive Abnormal [facility] Comment on above: Order Comment: Speci men Type: BLOOD SPECIMENOrdering Facility: [facility] Address: [address] [place] [address] Performed By: #### T SCR ####[facility]LOOD BANKCLIA [id number] [address] Rh Nom (Bld) Negative Normal [facility] Comment on above: Order Comment: Speci men Type: BLOOD SPECIMENOrdering Facility: [facility] Address: [address] [place] [address] Performed By: #### T SCR ####[facility] BLOOD BANKCLIA [id number] [address] TYPE AND SCREEN EXPIRATION 09/06/2022 23:59 Normal [facility] Comment on above: Order Comment: Speci men Type: BLOOD SPECIMENOrdering Facility: [facility] Address: [address] [place] [address] Performed By: #### T SCR ####[facility] BLOOD BANKCLIA [id number] [address] Tacrolimus Bld-mCncon 2022 Tacrolimus (Bld) [Mass/Vol] 9.2 ng/mL Normal 5.0-20.0 [facility] Comment on above: Order Comment: Speci men Type: BLOOD SPECIMEN [facility]: [facility] Address: [address] [place] [address] Result Comment: Thes e reference ranges are [...] Test performed by chemiluminescent immunoassay using Schuler Senior Resident Care Director. Performed By: #### 5 0189-0, 79025-4, 2132-9 #### [facility] CLIA [id number] [address] [place] [address] [place] [facility] US BIOPSY LIVERon 09-03-2022 US BIOPSY LIVER * * *Final Report* * * DATE OF EXAM: Sep 03 2022 4:01PM [facility] - US BIOPSY LIVER / PROCEDURE [...] history of rejection. STAFF RADIOLOGIST: Dr. Shepherd CHAIR TRIMMER(S): None CONSENT: The risks, benefits, treatment options, [...] performed by the: attending radiologist, without an customer relations assistant. The attending radiologist performed the following [...] ULTRASOUND GUIDED RANDOM LIVER TRANSPLANT BIOPSY DESCRIBED Sports Director: GUILLE Transcribe Date/Time: Sep 03 2022 5:36P Dictated by : HOWARD SHEPHERD MD This examination was interpreted and the report reviewed and electronically signed by: HOWARD SHEPHERD MD on Sep 03 2022 5:38PM EST [id number] Normal [facility] Urinalysis complete panel (U )on 09-03-2022 Bilirubin Ql (U) 1+ Abnormal Negative [facility] Comment on above: Order Comment: Speci men Type: BLOOD SPECIMEN [facility]: [facility] Address: [address] [place] [address] Result Comment: Sugg est correlation with clinical findings and serum bilirubin if clinically indicated. Performed By: #### 2 4323-8 #### [facility] CLIA [id number] [address] [place] [address] [place] Clarity (Unsp spec) Clear Normal Clear [facility] Comment on above: Order Comment: Speci men Type: BLOOD SPECIMEN Ordering [facility]: [facility] Address: [address] [place] [address] Performed By: #### 2 4323-8 #### [facility] CLIA [id number] [address] [place] [address] [place] Color (U) Yellow Normal Yellow [facility] Comment on above: Order Comment: Speci men Type: BLOOD SPECIMEN Ordering [facility]: [facility] Address: [address] [address] Performed By: #### 2 4323-8 #### [facility] CLIA [id number] [address] [place] Glucose Test strip (U) [Mass/Vol] Negative Normal Trace, Negative [facility] Comment on above: Order Comment: Speci men Type: BLOOD SPECIMEN Ordering [facility]: [facility] Address: [address] Performed By: #### 2 4323-8 #### [facility] CLIA [id number] [address] [place] [address] [place] Hemoglobin Ql (U) Negative Normal Negative, Trace [facility] Comment on above: Order Comment: Speci men Type: BLOOD SPECIMEN Ordering Facility: [facility] Address: [address] [place], [place] [address] Performed By: #### 2 432-8 #### [facility] CLIA [id number] [address] [place] Ketones Ql (U) 1+ Abnormal Trace, Negative [facility] Comment on above: Order Comment: Speci men Type: BLOOD SPECIMEN Ordering Facility: [facility] Address: [address] Performed By: #### 2 4323-8 #### [facility] CLIA [id number] [address] [place] Leukocyte esterase Test strip Ql (U) Negative Normal Negative, 25 Daniel/uL [facility] Comment on above: Order Comment: Speci men Type: BLOOD SPECIMEN Ordering [facility]: [facility] Address: [address] Performed By: #### 2 4323-8 #### [facility] CLIA [id number] [address] [place] [address] [place] Nitrite Ql (U) Negative Normal Negative [facility] Comment on above: Order Comment: Speci men Type: BLOOD SPECIMEN Ordering [facility]: [facility] Address: [address] Performed By: #### 2 4323-8 #### [facility] CLIA [id number] [address] [place] [address] [place] pH (U) 6.0 [pH] Normal 5.0-8.0 [facility] Comment on above: Order Comment: Speci men Type: BLOOD SPECIMEN Ordering [facility]: [facility] Address: [address] [place] [address] Performed By: #### 2 4323-8 #### [facility] CLIA [id number] [address] [place] [address] [place] Protein (U) [Mass/Vol] Trace Normal Trace , Negative [facility] Comment on above: Order Comment: Speci men Type: BLOOD SPECIMEN Ordering [facility]: [facility] Address: [address] [place] [address] Performed By: #### 2 4323-8 #### [facility] CLIA [id number] [address] [place] [address] [place] RBC LM.HPF (Urine sed) [#/Area] 0-3 /HPF Normal 0-3 /HPF [facility] Comment on above: Order Comment: Speci men Type: BLOOD SPECIMEN Ordering [facility]: [facility] Address: [address] [place] [address] Performed By: #### 2 4323-8 #### [facility] CLIA [id number] [address] [place] [address] [place] Specific gravity (U) [Rel density] 1.009 Normal 1.005-1.030 [facility] Comment on above: Order Comment: Speci men Type: BLOOD SPECIMEN [facility]ing [facility]: [facility] Address: [address] [place], [place] [address] Performed By: #### 2 4323-8 #### [facility] CLIA [id number] [facility] [place] [address] [place] Urobilinogen Ql (U) 1+ Abnormal Negative [facility] Comment on above: Order Comment: Speci men Type: BLOOD SPECIMEN Ordering [facility]: [facility] Address: [address] [place] [address] Performed By: #### 2 4323-8 #### [facility] CLIA [id number] [address] [place] [address] [place] WBC LM.HPF (Urine sed) [#/Area] 0-5 /HPF Normal 0-5 /HPF [facility] Comment on above: Order Comment: Speci men Type: BLOOD SPECIMEN Ordering [facility]: [facility] Address: [address] [place] [address] Performed By: #### 2 4323-8 #### [facility] CLIA [id number] [address] [place] [address] [place] Vit B12 SerPl-mCncon 023 Cobalamin (Vitamin B12) [Mass/Vol] 802 pg/mL Normal 232-1245 [facility] Comment on above: Order Comment: Speci men Type: BLOOD SPECIMEN Ordering [facility]: [facility] Address: [address] [place] [address] Performed By: #### 5 0189-0, 89851-8, 2132-9 #### [facility] CLIA [id number] [address] [place] [address] [place] ALPHA-1 ANTITRYPSIN GENOon 0 09-02-2022 HA1AT REVIEWED BY Radha [facility] Comment on above: Order Comment: Speci men Type: BLOOD SPECIMENOrdering Facility: [facility] Address: [address] [place] [address] Result Comment: Alph a-1 Antitrypsin Genotyping Laboratory Accession Number: [id number] Result: No Variant Detected in SERPINA1 (PI*MM) [...] two most common pathogenic variants: S (c.863A>T, p.Uga417Ndm, g.[id number]), Z (c.1096G>A, p.Sxk998Rim, g.99075941), and the rarer variants: F (c.739C>T, p.Itq918Jss, g.18240970), I (c.187C>T, p.Ieb77Gae, g.07740244). Limitations: This Laboratory Developed Test (LDT) is [...] its performance characteristics determined by [facility] Pathology and Laboratory Medicine [place] ([facility]-PL[facility]). It has not been cleared or approved by the FDA. [facility] is regulated under CLIA as certified to perform high- complexity testing. This test is used for clinical purposes. It should not be regarded as investigational or for research. Testing and interpretation performed at [facility], [address] [place], [place] [address]. CLIA Number: [id number] References: 1) Kun SANTANA, Manjit G, Radha ML, Alexandr M, Domingo CE, K, Tia DK, Edilma SL, Aiden MIRANDA, Luz Maria THOMPSON, Mateusz C, Taina J. The Diagnosis and Management of Alpha-1 Antritrypsin Deficiency in the Adult. Chronic Obstr Pulm Dis. 2016 Dec 30;3:668-682. 2) Andrew JA, Vickey ON, Bossman ER, Jackson DG. a1-Antitrypsin phenotypes and associated serum protein concentrations in a large clinical population. Chest.2013 Oct;143(4):1000-8. 3) Tom A, Jalen NA, Fei CR, Fina FJ, Michel SJ, Agapito AF. Molecular characterisation of three ollrs-0-pllwnvpwzkn deficiency variants: proteinase inhibitor (Pi) nullcardiff (Zoh003----Jld); PiMmalton (Yai92----vwcywhvr) and PiI (Kea29----Rxk). Hum Vonnie. 1989 Jun;84(1):55-8. 4) Reg STILL and Kun SANTANA. Clinical practice. Alpha1-antitrypsin deficiency. N Engl J Med. 2008Jan 18;360(38)5778-45. 5) Kimi NJ, Jovan F, Lindy SANTANA. The significance of the F variant of ngbun-0-jimftlldqyu and unique case report of a PiFF homozygote. [facility] Pulm Med. 2014 Mar 02;14:132. 6) Luz Maira THOMPSON, Michelle FL, and Dharmesh Rosado. Alpha-1 Antitrypsin Deficiency. 2005May 22 [Updated 2017 August 14]. In: Moises RA, Zacarias MP, Kwan TO, et al., editors. GeneReviews [Internet]. [place] ([place]): [facility], [place]; 8861-5118. Available from: http://www.ncbi.nlm.nih.gov/books/CHT4711/ As reviewed by Isabel Breaux, PhD, FAC Performed By: #### H A1AT ####[facility] LIMSCLIA [id number] [address] LENNY BY IFA WITH REFLEXon Nuclear Ab IF (S) [Titer] Negative Normal Negative [facility] Comment on above: Order Comment: Noe [place] Type: BLOOD SPECIMEN [facility]ing Facility: [facility] Address: [address] [address] Result Comment: Anti -nuclear antibody test is used as an aid in diagnosis of systemic autoimmune diseases. Where positive and clinically warranted, follow-up using disease-specific testing is recommended. Low positive titers are not uncommon with advanced age, certain chronic infections, and malignancies among others. Test methodology: Indirect fluorescence immunoassay (IFA) using HEp-2 cells. Performed By: #### 5 763-8, COPPER #### [facility] CLIA [id number] [address] [place] [address] [place] CBC W Ordered Manual Differe ntial panel (Bld)on 09-02-2022 Basophils (Bld) [#/Vol] 10*3/uL Normal <0.11 [facility] Comment on above: Order Comment: Noe [place] Type: BLOOD SPECIMENOrdering Facility: [facility] Address: [address] [address] Performed By: #### S TFREV, 51425-4, [id number] ####[facility] LAB[facility]IA [id number] [address] STATES [facility] Basophils/100 WBC (Bld) 0.2 % Normal [facility] Comment on above: Order Comment: Noe [place] Type: BLOOD SPECIMENOrdering Facility: [facility] Address: [address] [address] Performed By: #### S TFREV, 59377-6, [id number] ####[facility]IA [id number] [place] [address] [place] Differential cell count method Nom (Bld) Auto Normal [facility] Comment on above: Order Comment: Speci men Type: BLOOD SPECIMENOrdering Facility: [facility] Address: [address] [place] [address] Performed By: #### S TFREV, 79395-9, [id number] ####[facility]IA [id number] [place] [address] [place] Eosinophils (Bld) [#/Vol] 0.05 10*3/uL Normal <0.46 [facility] Comment on above: Order Comment: Speci men Type: BLOOD SPECIMENOrdering Facility: [facility] Address: [address] [place] [address] Performed By: #### S TFREV, 74231-1, [id number] ####[facility] LABCLIA [id number] [place] [address] [place] Eosinophils/100 WBC (Bld) 1.2 % Normal [facility] Comment on above: Order Comment: Speci men Type: BLOOD SPECIMENOrdering Facility: [facility] Address: [address] [place] [address] Performed By: #### S TFREV, 48834-7, [id number] ####[facility] LABCLIA [id number] [place] [address] [place] Erythrocyte distribution width (RBC) [Ratio] 16.9 % High 11.5-15.0 [facility] Comment on above: Order Comment: Speci men Type: BLOOD SPECIMENOrdering Facility: [facility] Address: [address] [place] [address] Performed By: #### S TFREV, 97783-4, [id number] ####[facility] LAB[facility]IA [id number] [place] [address] [place] Hematocrit (Bld) [Volume fraction] 36.7 % Low 39.0-51.0 [facility] Comment on above: Order Comment: Speci men Type: BLOOD SPECIMENOrdering Facility: [facility] Address: [address] [place] [address] Performed By: #### S TFREV, 27018-3, [id number] ####[facility] LABCLIA [id number] [place] [address] [place] Hemoglobin (Bld) [Mass/Vol] 12.9 g/dL Low 13.0-17.0 [facility] Comment on above: Order Comment: Speci men Type: BLOOD SPECIMENOrdering Facility: [facility] Address: [address] [place] [address] Performed By: #### S TFREV, 12084-0, [id number] ####[facility] LABCLIA [id number] [place] [address] [place] Immature granulocytes (Bld) [#/Vol] 0.05 10*3/uL Normal <0.10 [facility] Comment on above: Order Comment: Speci men Type: BLOOD SPECIMENOrdering Facility: [facility] Address: [address] [place] [address] Performed By: #### S TFREV, 06546-3, [id number] ####[facility] LABCLIA [id number] [place] [address] [place] Immature granulocytes/100 WBC (Bld) 1.2 % Normal [facility] Comment on above: Order Comment: Speci men Type: BLOOD SPECIMENOrdering Facility: [facility] Address: [address] [place] [address] Performed By: #### S TFREV, 27025-5, [id number] ####[facility] LAB[facility]IA [id number] [address] [place] Lymphocytes (Bld) [#/Vol] 0.31 10*3/uL Low 1.00-4.00 [facility] Comment on above: Order Comment: Speci men Type: BLOOD SPECIMENOrdering Facility: [facility] Address: [address] [place] [address] Performed By: #### S TFREV, 08494-3, [id number] ####[facility] [facility] [id number] [address] [place] Lymphocytes/100 WBC (Bld) 7.4 % Normal [facility] Comment on above: Order Comment: Speci men Type: BLOOD SPECIMENOrdering Facility: [facility] Address: [address] [place] [address] Performed By: #### S TFREV, 11105-3, [id number] ####[facility] [id number] [address] MCH (RBC) [Entitic mass] 30.0 pg Normal 26.0-34.0 [facility] Comment on above: Order Comment: Speci men Type: BLOOD SPECIMENOrdering Facility: [facility] Address: [address] [place] [address] Performed By: #### S TFREV, 21052-1, [id number] ####[facility] [id number] [place] [address] [place] MCHC (RBC) [Mass/Vol] 35.1 g/dL Normal 30.5-36.0 [facility] Comment on above: Order Comment: Speci men Type: BLOOD SPECIMENOrdering Facility: [facility] Address: [address] [place] [address] Performed By: #### S TFREV, 64614-5, [id number] ####[facility] [id number] [address] MCV (RBC) [Entitic vol] 85.3 fL Normal 80.0-100.0 [facility] Comment on above: Order Comment: Speci men Type: BLOOD SPECIMENOrdering Facility: [facility] Address: [address] [place] [address] Performed By: #### S TFREV, 07079-6, [id number] ####[facility] [id number] [place] [address] [place] Monocytes (Bld) [#/Vol] 0.33 10*3/uL Normal <0.87 [facility] Comment on above: Order Comment: Speci men Type: BLOOD SPECIMENOrdering Facility: [facility] Address: [address] [place] [address] Performed By: #### S TFREV, 18494-2, [id number] ####[facility] [id number] [place] [address] [place] Monocytes/100 WBC (Bld) 7.9 % Normal [facility] Comment on above: Order Comment: Speci men Type: BLOOD SPECIMENOrdering Facility: [facility] Address: [address] [place], [place] [address] Performed By: #### S TFREV, 70636-4, [id number] ####[facility] [id number] [place] [address] [place] Neutrophils (Bld) [#/Vol] 3.42 10*3/uL Normal 1.45-7.50 [facility] Comment on above: Order Comment: Speci men Type: BLOOD SPECIMENOrdering Facility: [facility] Address: [address] [place], [place] [address] Performed By: #### S TFREV, 97428-4, [id number] ####[facility] [id number] [place] [address] [place] Neutrophils/100 WBC (Bld) 82.1 % Normal [facility] Comment on above: Order Comment: Speci men Type: BLOOD SPECIMENOrdering Facility: [facility] Address: [address] [place] [address] Performed By: #### S CECIL, 71046-9, [id number] ####[facility] [id number] [place] [address] [place] Nucleated RBC (Bld) [#/Vol] 10*3/uL Normal <0.01 [facility] Comment on above: Order Comment: Speci men Type: BLOOD SPECIMENOrdering Facility: [facility] Address: [address] Performed By: #### S CECIL, 39952-6, [id number] ####[facility] [id number] [place] [address] [place] Nucleated RBC/100 WBC (Bld) [Ratio] 0.0 /100 WBC Normal [facility] Comment on above: Order Comment: Speci men Type: BLOOD SPECIMENOrdering Facility: [facility] Address: [address] Performed By: #### S CECIL, 62298-9, [id number] ####[facility] [id number] [place] [address] [place] Platelet mean volume (Bld) [Entitic vol] 12.1 fL Normal 9.0-12.7 [facility] Comment on above: Order Comment: Speci men Type: BLOOD SPECIMENOrdering Facility: [facility] Address: [address] Performed By: #### S CECIL, 06037-0, [id number] ####[facility] [id number] [place] [address] [place] Platelets (Bld) [#/Vol] 38 10*3/uL Low 150-400 [facility] Comment on above: Order Comment: Speci men Type: BLOOD SPECIMENOrdering Facility: [facility] Address: [address] [place] [address] Result Comment: No c lot detected. Performed By: #### S CECIL, 61820-5, [id number] ####[facility] [id number] [place] [address] [place] RBC (Bld) [#/Vol] 4.30 10*6/uL Normal 4.20-6.00 [facility] Comment on above: Order Comment: Speci men Type: BLOOD SPECIMENOrdering Facility: [facility] Address: [address] [place] [address] Performed By: #### S CECIL, 58510-2, [id number] ####[facility] [id number] [place] [address] [place] WBC (Bld) [#/Vol] 4.17 10*3/uL Normal 3.70-11.00 [facility] Comment on above: Order Comment: Speci men Type: BLOOD SPECIMENOrdering Facility: [facility] Address: [address] [place] [address] Performed By: #### S CECIL, 69030-8, [id number] ####[facility] [id number] [place] [address] [place] CBC panel Auto (Bld)on 09-02 Erythrocyte distribution width (RBC) [Ratio] 16.5 % High 11.5-15.0 [facility] Comment on above: Order Comment: Speci men Type: BLOOD SPECIMENOrdering Facility: [facility] Address: [address] [place] [address] Performed By: #### 5 8410-2, 78803-1 ####[facility] [id number] [place] [address] [place] Hematocrit (Bld) [Volume fraction] 35.5 % Low 39.0-51.0 [facility] Comment on above: Order Comment: Speci men Type: BLOOD SPECIMENOrdering Facility: [facility] Address: [address] [place] [address] Performed By: #### 5 8410-2, 95480-4 ####[facility] [id number] [place] [address] [place] Hemoglobin (Bld) [Mass/Vol] 12.6 g/dL Low 13.0-17.0 [facility] Comment on above: Order Comment: Speci men Type: BLOOD SPECIMENOrdering Facility: [facility] Address: [address] [place], [place] [address] Performed By: #### 5 8410-2, 24037-3 ####[facility] [id number] [place] [address] [place] MCH (RBC) [Entitic mass] 29.9 pg Normal 26.0-34.0 [facility] Comment on above: Order Comment: Speci men Type: BLOOD SPECIMENOrdering Facility: [facility] Address: [address] [place], [place] [address] Performed By: #### 5 8410-2, 86975-0 ####[facility] [id number] [place] [address] [place] MCHC (RBC) [Mass/Vol] 35.5 g/dL Normal 30.5-36.0 [facility] Comment on above: Order Comment: Speci men Type: BLOOD SPECIMENOrdering Facility: [facility] Address: [address] [place], [place] [address] Performed By: #### 5 8410-2, 99557-4 ####[facility] [id number] [address] [place] MCV (RBC) [Entitic vol] 84.1 fL Normal 80.0-100.0 [facility] Comment on above: Order Comment: Speci men Type: BLOOD SPECIMENOrdering Facility: [facility] Address: [address] [place], [place] [address] Performed By: #### 5 8410-2, 39891-1 ####[facility] [id number] [place] [address] [place] Nucleated RBC (Bld) [#/Vol] 10*3/uL Normal <0.01 [facility] Comment on above: Order Comment: Speci men Type: BLOOD SPECIMENOrdering Facility: [facility] Address: [address] [place] [address] Performed By: #### 5 8410-2, 14776-9 ####[facility] [id number] [place] [address] [place] Platelet mean volume (Bld) [Entitic vol] 11.7 fL Normal 9.0-12.7 [facility] Comment on above: Order Comment: Speci men Type: BLOOD SPECIMENOrdering Facility: [facility] Address: [address] [place] [address] Performed By: #### 5 8410-2, 25648-8 ####[facility] [id number] [place] [address] [place] Platelets (Bld) [#/Vol] 40 10*3/uL Low 150-400 [facility] Comment on above: Order Comment: Speci men Type: BLOOD SPECIMENOrdering Facility: [facility] Address: [address] [place], [place] [address] Result Comment: Resu lts checked and verified.No clot detected. Performed By: #### 5 8410-2, 95093-6 ####[facility] [id number] [place] [address] [place] RBC (Bld) [#/Vol] 4.22 10*6/uL Normal 4.20-6.00 [facility] Comment on above: Order Comment: Speci men Type: BLOOD SPECIMENOrdering Facility: [facility] Address: [address] [address] Performed By: #### 5 8410-2, 71361-9 ####[facility] [id number] [place] [address] [place] WBC (Bld) [#/Vol] 4.69 10*3/uL Normal 3.70-11.00 [facility] Comment on above: Order Comment: Speci men Type: BLOOD SPECIMENOrdering Facility: [facility] Address: [address] [place] [address] Performed By: #### 5 8410-2, 39744-2 ####[facility] [id number] [place] [address] [place] CMV DNA DETECTION AND QUANTo n 09-02-2022 CMV DNA NOLBERTO+probe Qn (P) Not detected Normal Not Detected [facility] Comment on above: Order Comment: Speci men Type: BLOOD SPECIMENOrdering Facility: [facility] Address: [address] [place] [address] Performed By: #### C MVQNT ####[facility] [id number] [place] [address] [place] Ceruloplasmin SerPl-mCncon 0 09-02-2022 Ceruloplasmin [Mass/Vol] 17 mg/dL Normal 15-30 [facility] Comment on above: Order Comment: Speci men Type: BLOOD SPECIMEN Ordering Facility: [facility] Address: [address] [place] [address] Performed By: #### V ITB6 #### [facility] CLIA [id number] [address] [place] [address] Comprehensive metabolic 2000 panelon 09-02-2022 Albumin [Mass/Vol] 3.7 g/dL Low 3.9-4.9 [facility] Comment on above: Order Comment: Speci men Type: BLOOD SPECIMEN Ordering Facility: [facility] Address: [address] [place] [address] Performed By: #### 5 763-8, COPPER #### [facility] CLIA [id number] [address] [place] [address] [place] ALP [Catalytic activity/Vol] 98 U/L Normal 38-113 [facility] Comment on above: Order Comment: Speci men Type: BLOOD SPECIMEN Ordering Facility: [facility] Address: [address] [place] [address] Performed By: #### 5 763-8, COPPER #### [facility] CLIA [id number] [address] [place] [address] [place] ALT [Catalytic activity/Vol] 175 U/L High 10-54 [facility] Comment on above: Order Comment: Speci men Type: BLOOD SPECIMEN Ordering Facility: [facility] Address: [address] [place] [address] Performed By: #### 5 763-8, COPPER #### [facility] CLIA [id number] [address] [place] [address] [place] Anion gap [Moles/Vol] 13 mmol/L Normal 9-18 [facility] Comment on above: Order Comment: Speci men Type: BLOOD SPECIMEN Ordering Facility: [facility] Address: [address] [id number] Performed By: #### 5 763-8, COPPER #### [facility] CLIA [id number] [address] [place] [address] [place] AST [Catalytic activity/Vol] 318 U/L High 14-40 [facility] Comment on above: Order Comment: Speci men Type: BLOOD SPECIMEN Ordering Facility: [facility] Address: [address] [id number] Performed By: #### 5 763-8, COPPER #### [facility] CLIA [id number] [address] [place] [id number] [place] Bilirubin [Mass/Vol] 10.9 mg/dL High 0.2-1.3 [facility] Comment on above: Order Comment: Speci men Type: BLOOD SPECIMEN Ordering Facility: [facility] Address: [address] [place] [address] Performed By: #### 5 763-8, COPPER #### [facility] CLIA [id number] [address] [place] [address] [place] Calcium [Mass/Vol] 8.9 mg/dL Normal 8.5-10.2 [facility] Comment on above: Order Comment: Speci men Type: BLOOD SPECIMEN Ordering Facility: [facility] Address: [address] [place] [address] Performed By: #### 5 763-8, COPPER #### [facility] CLIA [id number] [address] [place] [address] [place] Chloride [Moles/Vol] 99 mmol/L Normal 97-105 [facility] Comment on above: Order Comment: Speci men Type: BLOOD SPECIMEN Ordering Facility: [facility] Address: [address] [place], [place] [address] Performed By: #### 5 763-8, COPPER #### [facility] CLIA [id number] [address] [place] [address] [place] CO2 [Moles/Vol] 20 mmol/L Low 22-30 [facility] Comment on above: Order Comment: Speci men Type: BLOOD SPECIMEN Ordering Facility: [facility] Address: [address] [place], [place] [address] Performed By: #### 5 763-8, COPPER #### [facility] CLIA [id number] [address] [place] [address] [place] Creatinine [Mass/Vol] 1.18 mg/dL Normal 0.73-1.22 [facility] Comment on above: Order Comment: Speci men Type: BLOOD SPECIMEN Ordering Facility: [facility] Address: [address] [address] Performed By: #### 5 763-8, COPPER #### [facility] CLIA [id number] [address] [place] [address] [place] ESTIMATED GLOMERULAR FILTRATION RATE 82 mL/min/1.73m??? Normal >=60 [facility] Comment on above: Order Comment: Noe [place] Type: BLOOD SPECIMEN Ordering Facility: [facility] Address: [address] [address] Result Comment: Brenda mated Glomerular Filtration Rate [...] Performed By: #### 5 763-8, COPPER #### [facility] CLIA [id number] [address] [place] [address] [place] Glucose [Mass/Vol] 106 mg/dL High 74-99 [facility] Comment on above: Order Comment: Noe [place] Type: BLOOD SPECIMEN Ordering Facility: [facility] Address: [address] [place] [address] Result Comment: The [employer] (ADA) provides guidance for cutoff [...] Standards of Medical Care in Diabetes 2016, [employer]. Diabetes Care. 2016.39(Suppl 1). Performed By: #### 5 763-8, COPPER #### [facility] CLIA [id number] [address] [place] [address] [place] Potassium [Moles/Vol] 3.7 mmol/L Normal 3.7-5.1 [facility] Comment on above: Order Comment: Speci men Type: BLOOD SPECIMEN Ordering Facility: [facility] Address: [address] Performed By: #### 5 763-8, COPPER #### [facility] CLIA [id number] [address] [place] [address] [place] Protein [Mass/Vol] 6.0 g/dL Low 6.3-8.0 [facility] Comment on above: Order Comment: Speci men Type: BLOOD SPECIMEN Ordering Facility: [facility] Address: [address] Performed By: #### 5 763-8, COPPER #### [facility] CLIA [id number] [address] [place] [address] [place] Sodium [Moles/Vol] 132 mmol/L Low 136-144 [facility] Comment on above: Order Comment: Speci men Type: BLOOD SPECIMEN Ordering Facility: [facility] Address: [address] Performed By: #### 5 763-8, COPPER #### [facility] CLIA [id number] [address] [place] [address] [place] Urea nitrogen [Mass/Vol] 8 mg/dL Low 9-24 [facility] Comment on above: Order Comment: Speci men Type: BLOOD SPECIMEN Ordering Facility: [facility] Address: [address] Performed By: #### 5 763-8, COPPER #### [facility] CLIA [id number] [address] [place] [address] [place] EBV capsid IgM Qn (S)on EBV VCA IGM, QUAL Negative Normal Negative [facility] Comment on above: Order Comment: Speci men Type: BLOOD SPECIMENOrdering Facility: [facility] Address: [address] [place] [address] Result Comment: No s erological evidence of recent EBV infection. Performed By: #### 7 886-5, 2284-8, VZVG2 ####[facility] [id number] [address] [place] IRENE PANELon 023 EBV NA AB, QUAL Positive Abnormal Negative [facility] Comment on above: Order Comment: Speci men Type: BLOOD SPECIMEN Ordering Facility: [facility] Address: [address] [place] [address] Performed By: #### 2 4323-8 #### [facility] CLIA [id number] [address] [place] [address] [place] EBV VCA IGG, QUAL Positive Abnormal Negative [facility] Comment on above: Order Comment: Speci men Type: BLOOD SPECIMEN Ordering Facility: [facility] Address: [address] [place] [address] Performed By: #### 2 4323-8 #### [facility] CLIA [id number] [address] [place] EBV VCA IGM, QUAL Negative Normal Negative [facility] Comment on above: Order Comment: Speci men Type: BLOOD SPECIMEN Ordering Facility: [facility] Address: [address] [place] [address] Performed By: #### 2 4323-8 #### [facility] CLIA [id number] [address] [place] [address] [place] INTERPRETATION (EBVPNL) Past Infection. EBV panel interpretation is a general guide that is meant to capture most, but not all, of the possible clinical scenarios. Non-specific reactivities are not uncommon especially with equivocal results. Should the overall interpretation not be consistent with the clinical picture, please contact the medical chemist of the test for assistance. Normal [facility] Comment on above: Order Comment: Speci men Type: BLOOD SPECIMEN Ordering Facility: [facility] Address: [address] [place] [address] Performed By: #### 2 4323-8 #### [facility] CLIA [id number] [address] [place] [address] [place] Ferritin SerPl-mCncon 2022 Ferritin [Mass/Vol] 345.0 ng/mL Normal 30.3-565.7 [facility] Comment on above: Order Comment: Speci men Type: BLOOD SPECIMEN Ordering Facility: [facility] Address: [address] [place] [address] Performed By: #### V ITB6 #### [id number] [address] [place] [address] Fibrinogen PPP-ncon 2022 Fibrinogen Coag (PPP) [Mass/Vol] 442 mg/dL High 200-400 [facility] Comment on above: Order Comment: Speci men Type: BLOOD SPECIMEN Ordering Facility: [facility] Address: [address] [place] [address] Performed By: #### V ITB6 #### [facility] [place] [id number] [address] [place] [address] Folate SerPl-ncon 09-02-19 Folate [Mass/Vol] 13.7 ng/mL Normal >4.7 [facility] Comment on above: Order Comment: Speci men Type: BLOOD SPECIMENOrdering Facility: [facility] Address: [address] [place] [address] Performed By: #### 7 886-5, 2284-8, VZVG2 ####[facility] [id number] [place] [address] [place] HAV IgM Ser Qlon 09-02-2022 HAV IgM Ql (S) Negative Normal Negative [facility] Comment on above: Order Comment: Speci men Type: BLOOD SPECIMENOrdering Facility: [facility] Address: [address] [place] [address] Result Comment: No e vidence of recent infection with Hepatitis A virus. Performed By: #### 2 532-0, 5195-3, 36299-9, 59537-8 ####[facility] [id number] [place] [address] [place] HBV core IgM Ser Qlon 2022 HBV core IgM Ql (S) Negative Normal Negative [facility] Comment on above: Order Comment: Speci men Type: BLOOD SPECIMENOrdering Facility: [facility] Address: [address] [place] [address] Result Comment: No e vidence of recent infection with Hepatitis B virus. Should recent infection be suspected, repeat testing may be considered 3-4 weeks after this draw. Performed By: #### 2 532-0, 5195-3, 37771-8, ####[facility] [id number] [place] [address] [place] HBV surface Ag Ser Qlon HBV surface Ag Ql (S) Negative Normal Negative [facility] Comment on above: Order Comment: Speci men Type: BLOOD SPECIMENOrdering Facility: [facility] Address: [address] [place] [address] Performed By: #### 2 532-0, 5195-3, 14583-9, ####[facility] [id number] [place] [address] [place] HCV RNA SerPl NOLBERTO+probe-[facility] on 09-02-2022 HCV RNA NOLBERTO+probe Qn Not detected Normal HCV RNA not detected by PCR. [facility] Comment on above: Order Comment: Speci men Type: BLOOD SPECIMEN Ordering Facility: [facility] Address: [address] [place] [address] Performed By: #### 5 763-8, COPPER #### [facility] CLIA [id number] [address] [facility] [id number] [place] HEP DELTA ABon 09-02-2022 HEP DELTA AB Negative Normal Negative [facility] Comment on above: Order Comment: Noe [place] Type: BLOOD SPECIMENOrdering Facility: [facility] Address: [address] [place] [address] Result Comment: No a ntibody to Hepatitis Delta agent was detected. Order anti-HDV testing only when Hepatitis B virus infection has been confirmed. INTERPRETIVE INFORMATION: Hepatitis Delta Ab This test was developed and its performance characteristics determined by [email or web address]. It has not been cleared or approved by the [place] Food and Drug Administration. This test was performed in a CLIA certified laboratory and is intended for clinical purposes. Performed by [employer], [address] [place] [id number] www.[employer], Mic Rangel MD, PHD, Lab. Director Performed By: #### A HD ####[facility] [id number] [place] [address] HEPATITIS E VIRUS ABon 09-02 HEV IGG Not detected Normal [facility] Comment on above: Order Comment: Noe madrid Type: BLOOD SPECIMENOrdering Facility: [facility] Address: [address] [place] [address] Performed By: #### H EPE ####[facility] [id number] [place] [address] HEV IGM Not detected Normal [facility] Comment on above: Order Comment: Noe madrid Type: BLOOD SPECIMENOrdering Facility: [facility] Address: [address] [place] [address] Result Comment: REFE RENCE RANGE: NOT DETECTED [...] analytical performance characteristics have been determined by [employer]. It has not been cleared or approved by FDA. This assay has been validated pursuant to the CLIA regulations and is used for clinical purposes. Performed By: #### H EPE ####[facility] [id number] [facility] [place] [address] HISTORY PHYSICALon 3 HISTORY PHYSICAL HNO ID: [id number] Author: Carolin Crawford MD Service: Hepatology Author Type: Physician Type: HANDP Filed: 09/03/2022 5:06 PM Note Text: Department of Gastroenterology AND Hepatology Initial Consult Note Date of Service: September 02, 2022 Patient: Chuckie Villalta Medical Record: [id number] Reason for Admission / Consultation: Opinion/Advice regarding [...] Camacho MD Gastroenterology AND Hepatology Fellow Pager [phone] Discussed with staff. ==== History of Present [...] On Thursday, (more content not included)... Normal [facility] Haptoglob SerPl-mCncon 09-02 Haptoglobin [Mass/Vol] 36 mg/dL Normal 31-238 Cl [facility] Comment on above: Order Comment: Speci men Type: BLOOD SPECIMEN Ordering Facility: [facility] Address: [address] [place] [phone] Performed By: #### 5 763-8, COPPER #### [facility] CLIA [id number] 9500 [facility] [id number] [address] [place] Iron and Iron binding capaci ty panelon 09-02-2022 Iron [Mass/Vol] 26 ug/dL Low 41-186 [facility] Comment on above: Order Comment: Speci men Type: BLOOD SPECIMEN Ordering Facility: [facility] Address: [address] [place] [address] Performed By: #### V ITB6 #### [facility] [id number] [address] [place] [address] Iron binding capacity [Mass/Vol] 271 ug/dL Normal 232-386 [facility] Comment on above: Order Comment: Speci men Type: BLOOD SPECIMEN Ordering Facility: [facility] Address: [address] [place] [address] Performed By: #### V ITB6 #### [facility] [id number] [address] [place] [address] Iron/TIBC [Molar ratio] 9.6 % Low 15.0-57.0 [facility] Comment on above: Order Comment: Speci men Type: BLOOD SPECIMEN Ordering Facility: [facility] Address: [address] [place] [address] Performed By: #### V ITB6 #### [facility] [id number] [address] [place] [address] LDH SerPl-cCncon 09-02-2022 LDH [Catalytic activity/Vol] 207 U/L Normal 135-225 [facility] Comment on above: Order Comment: Speci men Type: BLOOD SPECIMENOrdering Facility: [facility] Address: [address] [place] [address] Performed By: #### 2 532-0, 5195-3, 26261-3, 79979-6 ####[facility] [id number] [facility] [id number] [address] [place] Mitochondria Ab IF Ql (S)on 09-02-2022 Mitochondria M2 Ab IA Qn (S) 1.7 Units Normal <=20.0 [facility] Comment on above: Order Comment: Speci men Type: BLOOD SPECIMEN Ordering Facility: [facility] Address: [address] [place] [address] Performed By: #### 5 763-8, COPPER #### [facility] CLIA [id number] [address] Mitochondria M2 Ab Ql (S) Negative Normal Negative [facility] Comment on above: Order Comment: Speci men Type: BLOOD SPECIMEN Ordering Facility: [facility] Address: [address] [place] [address] Result Comment: Anti -mitochondrial antibody test is used as an aid in diagnosis of primary biliary cholangitis. Clinical correlation is required. Performed By: #### 5 763-8, COPPER #### [facility] CLIA [id number] [address] NURSING PROGon 09-02-2022 NURSING PROG HNO ID: [id number] Author: Radha Mcpherson RN Service: Nursing Author [...] <1.5 Radha Mcpherson RN 3:59 PM Normal [facility] PATHOLOGIST INTERPRETATION C BC/DIFFon 09-02-2022 Director Of Finance review Ernst (Unsp spec) [Interp] Reviewed by Flex Morataya MD Normal [facility] Comment on above: Order Comment: Speci men Type: BLOOD SPECIMENOrdering Facility: [facility] Address: [address] [place] [address] Performed By: #### S TFREV, 16501-6, [id number] ####[facility] [id number] [address] STAFF REVIEW, CBCDIF Normal [facility] Comment on above: Order Comment: Speci men Type: BLOOD SPECIMENOrdering Facility: [facility] Address: [address] [place] [address] Result Comment: Norm ocytic anemia without polychromasia Absolute lymphopenia without leukopenia Thrombocytopenia Performed By: #### S TFREV, 88994-8, [id number] ####[facility]IA [id number] [place] [address] [place] PHOSPHATIDYLETHANOL (PETH)on 09-02-2022 PETH 16:0/18.2 (PLPETH) 278 ng/mL Normal [facility] Comment on above: Order Comment: Speci men Type: BLOOD SPECIMEN Ordering Facility: [facility] Address: [address] [place] [address] Result Comment: Perf ormed By: [email or web address] [address] [place] [address] Wash House Worker: Mic Rangel MD, PhD Performed By: #### 5 763-8, COPPER #### [facility] CLIA [id number] [address] [place] [address] [place] PETH 16:0/18:1 (POPETH) 578 ng/mL Normal [facility] Comment on above: Order Comment: Speci men Type: BLOOD SPECIMEN Ordering Facility: [facility] Address: [address] [place] [address] Result Comment: INTE RPRETIVE INFORMATION:Phosphatidylethanol (PEth), Whole [...] Research). Test developed and characteristics determined by [employer]. See Compliance Statement B: [employer] Performed By: #### 5 763-8, COPPER #### [facility] CLIA [id number] [address] [facility] PT panel Coag (PPP)on 2022 INR Coag (PPP) [Relative time] 1.2 {INR} Normal 0.9-1.3 [facility] Comment on above: Order Comment: Speci men Type: BLOOD SPECIMEN Ordering Facility: [facility] Address: [address] [place], [place] [address] Result Comment: Aster min K Antagonist (VKA) Therapeutic Range: INR 2 to 3 (Target INR of 2.5) Note: For patients treated with VKA drugs, such as warfarin, the [employer] 2012 Guideline recommends [...] ARRIAGA, et al. Chest 2012, 141:7S-47S Goldie SANTANA, et al. [facility] 2017, 70: 252-289 Performed By: #### V ITB6 #### [facility] CLIA [id number] [address] [place] [address] PT Coag (PPP) [Time] 11.9 s Normal 9.7-13.0 [facility] Comment on above: Order Comment: Speci men Type: BLOOD SPECIMEN Ordering Facility: [facility] Address: [address] [place] [address] Performed By: #### V ITB6 #### [facility] CLIA [id number] [address] [place] [address] RBC MORPHOLOGYon 09-02-2022 Anisocytosis Ql (Bld) Present Normal [facility] Comment on above: Order Comment: Speci men Type: BLOOD SPECIMENOrdering Facility: [facility] Address: [address] [place] [address] Performed By: #### S TFREV, 76309-8, [id number] ####[facility] [id number] [address] [place] Platelets Estimate (Bld) [#/Vol] Decreased Normal [facility] Comment on above: Order Comment: Speci men Type: BLOOD SPECIMENOrdering Facility: [facility] Address: [address] [place] [address] Performed By: #### S TFREV, 09564-7, [id number] ####[facility] [id number] [address] [place] RBC morphology finding Nom (Bld) Reviewed: see results of individual morphologies Normal [facility] Comment on above: Order Comment: Speci men Type: BLOOD SPECIMENOrdering Facility: [facility] Address: [address] [place] [address] Performed By: #### S TFREV, 17555-2, [id number] ####[facility] [id number] [place] [address] [place] Retics #on 09-02-2022 Reticulocytes (Bld) [#/Vol] 0.78970 10*3/uL Normal 0.018-0.100 [facility] Comment on above: Order Comment: Speci men Type: BLOOD SPECIMENOrdering Facility: [facility] Address: [address] [place] [address] Performed By: #### 5 8410-2, 58866-2 ####[facility] [id number] [place] [address] [place] Reticulocytes (Bld) [#/Vol]o n 09-02-2022 Reticulocytes/100 RBC (Bld) 1.7 % Normal 0.4-2.0 [facility] Comment on above: Order Comment: Speci men Type: BLOOD SPECIMENOrdering Facility: [facility] Address: [address] [place] [address] Performed By: #### 5 8410-2, 18507-5 ####[facility] [id number] [place] [address] [place] Smooth muscle Ab Ql (S)on ACTIN SMOOTH MUSCLE IGG QUALITATIVE Negative Normal Negative [facility] Comment on above: Order Comment: Speci men Type: BLOOD SPECIMEN Ordering Facility: [facility] Address: [address] [place] [address] Performed By: #### 5 763-8, COPPER #### [facility] CLIA [id number] [address] [place] [address] [place] ACTIN SMOOTH MUSCLE IGG QUANTITATIVE 5 Units Normal <20 [facility] Comment on above: Order Comment: Speci men Type: BLOOD SPECIMEN Ordering Facility: [facility] Address: [address] [id number] Performed By: #### 5 763-8, COPPER #### [facility] CLIA [id number] [address] [facility] [place] [address] [place] Tacrolimus Bld-mCncon 2022 Tacrolimus (Bld) [Mass/Vol] 7.4 ng/mL Normal 5.0-20.0 [facility] Comment on above: Order Comment: Noe madrid Type: BLOOD SPECIMENOrdering Facility: [facility] Address: [address] [id number] Result Comment: Thes e reference ranges are [...] Test performed by chemiluminescent immunoassay using Schuler Senior Resident Care Director. 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 Sports Director: GUILLE Transcribe Date/Time: Sep 02 2022 3:34P Dictated by : PAMELA SIMMONS, DO This examination was interpreted and the report reviewed and electronically signed by: KAMRON SHAH MD on Sep 02 2022 4:04PM EST [id number] Normal [facility] VARICELLA ZOSTER IGGon 09-02 VARICELLA ZOSTER IGG, QUAL Positive Normal Positive [facility] Comment on above: Order Comment: Speci men Type: BLOOD SPECIMENOrdering Facility: [facility] Address: [address] [place] [phone] Result Comment: The result suggests recent or past exposure to Varicella-Zoster virus or chickenpox vaccination or zoster vaccination. Positive result may also be seen due to presence of passively-transferred antibodies. Please correlate with patient's history. Performed By: #### 7 886-5, 2284-8, VZVG2 ####[facility] [id number] [place] [address] [place] VARICELLA ZOSTER IGMon 09-02 VARICELLA ZOSTER, IGM 0.07 ISR Normal <=0.90 [facility] Comment on above: Order Comment: Noe madrid Type: BLOOD SPECIMEN Ordering Facility: [facility] Address: [address] [place] [address] Result Comment: Specimen is icteric. Results may [...] 12 months post-infection or immunization. Performed By: [facility] [address] [place] [address] Wash House Worker: Mic Rangel MD, PhD Performed By: #### 5 0189-0, 89234-5, 2132-9 #### [facility] CLIA [id number] [address] [place] [address] [place] aPTT PPPon 09-02-2022 aPTT Coag (PPP) [Time] 26.0 s Normal 23.0-32.4 [facility] Comment on above: Order Comment: Noe madrid Type: BLOOD SPECIMEN Ordering Facility: [facility] Address: [address] [place] [address] Performed By: #### V ITB6 #### [facility] CLIA [id number] [address] [place] [address] CASE MGT INIT ASSESon 2022 CASE MGT INIT ASSES HNO ID: [id number] Author: JEY Felton Service: ? Author Type: Environmental Technology Professor Type: Care Mgt Initial Assessment Filed: 09/01/2022 10:16 AM Note Text: CARE MANAGEMENT: ASSESSMENT AND DISCHARGE PLAN SERVICE DATE: September 01, 2022 SERVICE TIME: 10:15 AM PRIMARY CARE PHYSICIAN: Luis Abdalla DO Primary Contact: Extended Emergency Contact Information Primary Emergency Contact: Remedios Villalta Address: [address] [facility] [address] [place] [address] [facility] Mobile Relation: Spouse ADMISSION STATUS: Inpatient Insurance Provider: MEDICARE A AND B NEEDS PRIOR TO DISCHARGE Needs Prior to Discharge: To Be Determined POTENTIAL TRANSITION PLANS Home Patient's perception of need for this admission: Pt is aware of admission and is in agreement ADVANCE DIRECTIVES Current Advance Directive: Health Care Power of Professional Engineer In Chart: Yes Up To Date and Valid: Yes CAREGIVER ASSESSMENT Caregiver is ready, willing and able to meet the patient's needs as recommended by the inter-professional team:: Yes Name of Caregiver: Remedios Owensran [phone] Patient's transition needs and plan for meeting these needs: Pt is aware of admission and is in agreement FREEDOM OF CHOICE EXPLAINED: [place] of Choice Given: No Reason Not Given: [...] 2022 TIME: 10:14 AM CONTACT #: Normal [facility] CBC panel Auto (Bld)on 09-01 Erythrocyte distribution width (RBC) [Ratio] 16.8 % High 11.5-15.0 [facility] Comment on above: Order Comment: Speci men Type: BLOOD SPECIMENOrdering Facility: [facility] Address: [address] Performed By: #### 5 8410-2 ####[facility] [id number] [address] [place] Hematocrit (Bld) [Volume fraction] 37.0 % Low 39.0-51.0 [facility] Comment on above: Order Comment: Speci men Type: BLOOD SPECIMENOrdering Facility: [facility] Address: [address] [place] [place] [address] Performed By: #### 5 8410-2 ####[facility] [id number] [place] [address] [place] Hemoglobin (Bld) [Mass/Vol] 13.3 g/dL Normal 13.0-17.0 [facility] Comment on above: Order Comment: Speci men Type: BLOOD SPECIMENOrdering Facility: [facility] Address: [address] [place] [address] Performed By: #### 5 8410-2 ####[facility] [id number] [address] [place] MCH (RBC) [Entitic mass] 30.1 pg Normal 26.0-34.0 [facility] Comment on above: Order Comment: Speci men Type: BLOOD SPECIMENOrdering Facility: [facility] Address: [address] Performed By: #### 5 8410-2 ####[facility] [id number] [place] [address] [place] MCHC (RBC) [Mass/Vol] 35.9 g/dL Normal 30.5-36.0 [facility] Comment on above: Order Comment: Speci men Type: BLOOD SPECIMENOrdering Facility: [facility] Address: [address] [place], [place] [address] Performed By: #### 5 8410-2 ####[facility]IA [id number] [place] [address] [place] MCV (RBC) [Entitic vol] 83.7 fL Normal 80.0-100.0 [facility] Comment on above: Order Comment: Speci men Type: BLOOD SPECIMENOrdering Facility: [facility] Address: [address] [place] [address] Performed By: #### 5 8410-2 ####[facility]IA [id number] [place] [address] [place] Nucleated RBC (Bld) [#/Vol] 10*3/uL Normal <0.01 [facility] Comment on above: Order Comment: Speci men Type: BLOOD SPECIMENOrdering Facility: [facility] Address: [address] [place] [address] Performed By: #### 5 8410-2 ####[facility] [id number] [place] [address] [place] Platelet mean volume (Bld) [Entitic vol] 10.9 fL Normal 9.0-12.7 [facility] Comment on above: Order Comment: Speci men Type: BLOOD SPECIMENOrdering Facility: [facility] Address: [address] [place], [place] [address] Performed By: #### 5 8410-2 ####[facility] [id number] [place] [address] [place] Platelets (Bld) [#/Vol] 56 10*3/uL Low 150-400 [facility] Comment on above: Order Comment: Speci men Type: BLOOD SPECIMENOrdering Facility: [facility] Address: [address] [place], [place] [address] Result Comment: Resu lts checked and verified.No clot detected. Performed By: #### 5 8410-2 ####[facility] [id number] [place] [address] [place] RBC (Bld) [#/Vol] 4.42 10*6/uL Normal 4.20-6.00 [facility] Comment on above: Order Comment: Speci men Type: BLOOD SPECIMENOrdering Facility: [facility] Address: [address] [place] [address] Performed By: #### 5 8410-2 ####[facility] [id number] [place] [address] [facility] WBC (Bld) [#/Vol] 5.59 10*3/uL Normal 3.70-11.00 [facility] Comment on above: Order Comment: Speci men Type: BLOOD SPECIMENOrdering Facility: [facility] Address: [address] [place] [address] Performed By: #### 5 8410-2 ####[facility] [id number] [address] [facility] Comp Metab 2000 Pnl SerPlon 09-01-2022 Bilirubin [Mass/Vol] 8.5 mg/dL High 0.2-1.3 [facility] Comment on above: Order Comment: Speci men Type: BLOOD SPECIMEN Ordering Facility: [facility] Address: [address] [place], [place] [address] Performed By: #### 5 763-8, COPPER #### [facility] CLIA [id number] [address] [place] [address] [place] [facility] Comprehensive metabolic 2000 panelon 09-01-2022 Albumin [Mass/Vol] 4.0 g/dL Normal 3.9-4.9 [facility] Comment on above: Order Comment: Speci men Type: BLOOD SPECIMEN Ordering Facility: [facility] Address: [address] [place], [place] [address] Performed By: #### 5 763-8, COPPER #### [facility] CLIA [id number] [address] [place] [address] [place] ALP [Catalytic activity/Vol] 65 U/L Normal 38-113 [facility] Comment on above: Order Comment: Speci men Type: BLOOD SPECIMEN Ordering Facility: [facility] Address: [address] Performed By: #### 5 763-8, COPPER #### [facility] CLIA [id number] [address] [place] [address] [place] ALT [Catalytic activity/Vol] 147 U/L High 10-54 [facility] Comment on above: Order Comment: Speci men Type: BLOOD SPECIMEN Ordering Facility: [facility] Address: [address] Performed By: #### 5 763-8, COPPER #### [facility] CLIA [id number] [address] [place] [address] [place] Anion gap [Moles/Vol] 10 mmol/L Normal 9-18 [facility] Comment on above: Order Comment: Speci men Type: BLOOD SPECIMEN Ordering Facility: [facility] Address: [address] [place], [place] [address] Performed By: #### 5 763-8, COPPER #### [facility] CLIA [id number] [address] [place] AST [Catalytic activity/Vol] 617 U/L High 14-40 [facility] Comment on above: Order Comment: Speci men Type: BLOOD SPECIMEN Ordering Facility: [facility] Address: [address] Performed By: #### 5 763-8, COPPER #### [facility] CLIA [id number] [address] [place] [address] [place] Calcium [Mass/Vol] 8.6 mg/dL Normal 8.5-10.2 [facility] Comment on above: Order Comment: Speci men Type: BLOOD SPECIMEN Ordering Facility: [facility] Address: [address] Performed By: #### 5 763-8, COPPER #### [facility] CLIA [id number] [address] [place] [address] [place] Chloride [Moles/Vol] 102 mmol/L Normal 97-105 [facility] Comment on above: Order Comment: Speci men Type: BLOOD SPECIMEN Ordering Facility: [facility] Address: [address] Performed By: #### 5 763-8, COPPER #### [facility] CLIA [id number] [address] [place] [address] [place] CO2 [Moles/Vol] 23 mmol/L Normal 22-30 [facility] Comment on above: Order Comment: Speci men Type: BLOOD SPECIMEN Ordering Facility: [facility] Address: [address] [place] [address] Performed By: #### 5 763-8, COPPER #### [facility] CLIA [id number] [address] [place] [address] [place] Creatinine [Mass/Vol] 1.23 mg/dL High 0.73-1.22 [facility] Comment on above: Order Comment: Speci men Type: BLOOD SPECIMEN Ordering Facility: [facility] Address: [address] [place], [place] [address] Performed By: #### 5 763-8, COPPER #### [facility] CLIA [id number] [address] [place] [address] [place] ESTIMATED GLOMERULAR FILTRATION RATE 78 mL/min/1.73m??? Normal >=60 [facility] Comment on above: Order Comment: Speci men Type: BLOOD SPECIMEN Ordering Facility: [facility] Address: [address] [place], [place] [id number] Result Comment: Brenda mated Glomerular Filtration Rate [...] Performed By: #### 5 763-8, COPPER #### [facility] CLIA [id number] [address] [address] [place] Glucose [Mass/Vol] 131 mg/dL High 74-99 [facility] Comment on above: Order Comment: Speci men Type: BLOOD SPECIMEN Ordering Facility: [facility] Address: [address] [place] [address] Result Comment: The [employer] Diabetes Association (ADA) provides guidance for cutoff [...] Standards of Medical Care in Diabetes 2016, [employer] Diabetes [employer]. Diabetes Care. 2016.39(Suppl 1). Performed By: #### 5 763-8, COPPER #### [facility] CLIA [id number] [address] [place] [id number] [place] Potassium [Moles/Vol] 3.7 mmol/L Normal 3.7-5.1 [facility] Comment on above: Order Comment: Noe madrid Type: BLOOD SPECIMEN Ordering Facility: [facility] Address: [address] [place] [address] Performed By: #### 5 763-8, COPPER #### [facility] CLIA [id number] [address] [address] [place] Protein [Mass/Vol] 6.2 g/dL Low 6.3-8.0 [facility] Comment on above: Order Comment: Speci men Type: BLOOD SPECIMEN Ordering Facility: [facility] Address: [address] [address] Performed By: #### 5 763-8, COPPER #### [facility] CLIA [id number] [address] [place] [address] [place] Sodium [Moles/Vol] 135 mmol/L Low 136-144 [facility] Comment on above: Order Comment: Speci men Type: BLOOD SPECIMEN Ordering Facility: [facility] Address: [address] [address] Performed By: #### 5 763-8, COPPER #### [facility] CLIA [id number] [address] [place] [address] [place] Urea nitrogen [Mass/Vol] 11 mg/dL Normal 9-24 [facility] Comment on above: Order Comment: Speci men Type: BLOOD SPECIMEN Ordering Facility: [facility] Address: [address] [place] [address] Performed By: #### 5 763-8, COPPER #### [facility] CLIA [id number] [address] [place] [address] ED NOTEon 09-01-2022 ED NOTE HNO ID: [id number] Author: Max Cuellar MD Service: Emergency Medicine [...] (ANC) 15.29(!) Lymph% 4.9 Abs Lymph 0.88(!) Hunter[place]% 9.0 Abs [place] 1.61(!) Eosin% 0.0 Abs Eosin <0.03 Baso% [...] the medicine service. Max Cuellar MD Normal [facility] HISTORY PHYSICALon 3 HISTORY PHYSICAL HNO ID: [id number] Author: Reymundo Charles MD Service: Hospital Medicine Author Type: Physician Type: HANDP Filed: 09/01/2022 12:49 AM Note Text: DEPARTMENT OF HOSPITAL MEDICINE HISTORY AND PHYSICAL EXAM SERVICE DATE: 09/01/2022 SERVICE TIME: 12:42 AM Primary Care Physician: Luis Abdalla, DO NIGHT AND WEEKEND COVERAGE: Please page [phone] until 7:30am this morning. Afterwards, patient will [...] 15.29 (*) Abs Lymph 0.88 (*) Abs Hunterdon 1.61 (*) Abs Immature Gran 0.11 (*) All other components within normal limits Narrative: This is an appended report. These results have been appended to a previously verified report. ED BG VENOUS/LAB PANELS - Abnormal; Notable for the following components: Lactate (POCT) 4.7 (*) All other components within normal limits Narrative: Meter ID:ED Location:ED [facility], [address] [place] [address], [facility] ED BG VENOUS/LAB PANELS - Abnormal; Notable for the following components: Lactate (POCT) 2.7 (*) All other components within normal limits Narrative: Meter ID:ED Location:ED [facility], [address] [place] [address], [address] PROTHROMBIN TIME/PT - Normal EXPEDITED COVID19 - Normal Narrative: This test has been authorized by FDA under an Emergency Use Authorization (EUA). Test performed by [facility], [facility] [place], [address] [place] [address]. LACTATE - ED (POC) LACTATE - ED [...] MEDICATIONS: Cu (more content not included)... Normal [facility] bilirubin panel [Ma ss/Vol]on 09-01-2022 Bilirubin.conjugated [Mass/Vol] 4.7 mg/dL High <0.2 [facility] Comment on above: Order Comment: Speci mercy Type: BLOOD SPECIMEN Ordering Facility: [facility] Address: [address] [place] [address] Performed By: #### 5 763-8, COPPER #### [facility] CLIA [id number] [address] [place] [address] [place] Bilirubin.indirect [Mass/Vol] 3.8 mg/dL High <1.4 [facility] Comment on above: Order Comment: Noe madrid Type: BLOOD SPECIMEN Ordering Facility: [facility] Address: [address] [place] [address] Performed By: #### 5 763-8, COPPER #### [facility] CLIA [id number] [address] [place] [address] [place] SEPSIS LACTATEon 09-01-2022 Lactate [Moles/Vol] 0.9 mmol/L Normal <=2.0 [facility] Comment on above: Order Comment: Noe madrid Type: BLOOD SPECIMEN Ordering Facility: [facility] Address: [address] [place] [address] Performed By: #### 5 763-8, COPPER #### [facility] CLIA [id number] [address] [id number] [place] US ABD RIGHT [...] biliary ductal dilation, similar compared to 10/30/2021. Sports Director: PSCB Transcribe Date/Time: Sep 01 2022 8:45P Dictated by : MOLLY MAI MD This examination was interpreted and the report reviewed and electronically signed by: KATERIN ALY MD on Sep 01 2022 9:14PM EST [id number] Normal [facility] XR CHEST 1V FRONTAL PORTon 0 [...] Lower ACDF. IMPRESSION: No acute cardiopulmonary process. Sports Director: PSCB Transcribe Date/Time: Sep 01 2022 1:11A Dictated by : GLADYS VIEYRA MD This examination was interpreted and the report reviewed and electronically signed by: GLADYS VIEYRA MD on Sep 01 2022 1:12AM EST [id number] Normal [facility] Bacteria Bld Culton 08-31-19 23 Bacteria identified Cx Nom (Bld) CULTURE, BLOOD: No growth 5 days Normal [facility] Comment on above: Performed By: #### 2 4323-8 #### [facility] CLIA [id number] [address] [facility] Bacteria identified Cx Nom (Bld) CULTURE, BLOOD: No growth 5 days Normal [facility] Comment on above: Performed By: #### 6 00-7 ####[facility] [id number] [address] [place] Bilirub Conj SerPl-mCncon Bilirubin.conjugated [Mass/Vol] 0.4 mg/dL High <0.2 [facility] Comment on above: Order Comment: Speci men Type: BLOOD SPECIMEN Ordering Facility: [facility] Address: [address] [place] [address] Result Comment: Resu lts may be falsely decreased due to interference from hemolysis. Suggest reorder as clinically indicated. Performed By: #### 5 763-8, COPPER #### [facility] CLIA [id number] [address] [facility] [id number] [address] [place] CBC W Auto Differential pane l (Bld)on 08-31-2022 Basophils (Bld) [#/Vol] 0.06 10*3/uL Normal <0.11 [facility] Comment on above: Order Comment: Speci men Type: BLOOD SPECIMEN Ordering Facility: [facility] Address: [address] [address] Performed By: #### V ITB6 #### [facility] CLIA [id number] [address] [place] [address] Basophils/100 WBC (Bld) 0.3 % Normal [facility] Comment on above: Order Comment: Speci men Type: BLOOD SPECIMEN Ordering Facility: [facility] Address: [address] [place] [address] Performed By: #### V ITB6 #### [facility] CLIA [id number] [address] [place] [address] Differential cell count method Nom (Bld) Auto Normal [facility] Comment on above: Order Comment: Speci men Type: BLOOD SPECIMEN Ordering Facility: [facility] Address: [address] [address] Performed By: #### V ITB6 #### [facility] CLIA [id number] [address] [place] [address] Eosinophils (Bld) [#/Vol] 10*3/uL Normal <0.46 [facility] Comment on above: Order Comment: Speci men Type: BLOOD SPECIMEN Ordering Facility: [facility] Address: [address] [address] Performed By: #### V ITB6 #### [facility] CLIA [id number] [address] [place] [address] Eosinophils/100 WBC (Bld) 0.0 % Normal [facility] Comment on above: Order Comment: Speci men Type: BLOOD SPECIMEN Ordering Facility: [facility] Address: [address] [place] [address] Performed By: #### V ITB6 #### [facility] CLIA [id number] [address] [place] [address] Erythrocyte distribution width (RBC) [Ratio] 17.9 % High 11.5-15.0 [facility] Comment on above: Order Comment: Speci men Type: BLOOD SPECIMEN Ordering Facility: [facility] Address: [address] [place] [address] Performed By: #### V ITB6 #### [facility] CLIA [id number] [address] [place] [address] Hematocrit (Bld) [Volume fraction] 45.3 % Normal 39.0-51.0 [facility] Comment on above: Order Comment: Speci men Type: BLOOD SPECIMEN Ordering Facility: [facility] Address: [address] [place] [address] Performed By: #### V ITB6 #### [facility] CLIA [id number] [address] [place] [address] Hemoglobin (Bld) [Mass/Vol] 16.7 g/dL Normal 13.0-17.0 [facility] Comment on above: Order Comment: Speci men Type: BLOOD SPECIMEN Ordering Facility: [facility] Address: [address] [place] [address] Performed By: #### V ITB6 #### [facility] CLIA [id number] [address] [place] [address] Immature granulocytes (Bld) [#/Vol] 0.11 10*3/uL High <0.10 [facility] Comment on above: Order Comment: Speci men Type: BLOOD SPECIMEN Ordering Facility: [facility] Address: [address] [place] [address] Performed By: #### V ITB6 #### [facility] CLIA [id number] [address] [place] [address] Immature granulocytes/100 WBC (Bld) 0.6 % Normal [facility] Comment on above: Order Comment: Speci men Type: BLOOD SPECIMEN Ordering Facility: [facility] Address: [address] [place] [address] Performed By: #### V ITB6 #### [facility] CLIA [id number] [address] [place] [address] Lymphocytes (Bld) [#/Vol] 0.88 10*3/uL Low 1.00-4.00 [facility] Comment on above: Order Comment: Speci men Type: BLOOD SPECIMEN Ordering Facility: [facility] Address: [address] [place] [address] Performed By: #### V ITB6 #### [facility] CLIA [id number] [address] [place] [address] Lymphocytes/100 WBC (Bld) 4.9 % Normal [facility] Comment on above: Order Comment: Speci men Type: BLOOD SPECIMEN Ordering Facility: [facility] Address: [address] [place] [address] Performed By: #### V ITB6 #### [facility] CLIA [id number] [address] [place] [address] MCH (RBC) [Entitic mass] 29.9 pg Normal 26.0-34.0 [facility] Comment on above: Order Comment: Speci men Type: BLOOD SPECIMEN Ordering Facility: [facility] Address: [address] [place] [address] Performed By: #### V ITB6 #### [facility] CLIA [id number] [address] [place] [address] MCHC (RBC) [Mass/Vol] 36.9 g/dL High 30.5-36.0 [facility] Comment on above: Order Comment: Speci men Type: BLOOD SPECIMEN Ordering Facility: [facility] Address: [address] [place] [address] Performed By: #### V ITB6 #### [facility] CLIA [id number] [address] [place] [address] MCV (RBC) [Entitic vol] 81.2 fL Normal 80.0-100.0 [facility] Comment on above: Order Comment: Speci men Type: BLOOD SPECIMEN Ordering Facility: [facility] Address: [address] [place] [address] Performed By: #### V ITB6 #### [facility] CLIA [id number] [address] [place] [address] Monocytes (Bld) [#/Vol] 1.61 10*3/uL High <0.87 [facility] Comment on above: Order Comment: Speci men Type: BLOOD SPECIMEN Ordering Facility: [facility] Address: [address] [address] Performed By: #### V ITB6 #### [facility] CLIA [id number] [address] [place] [address] Monocytes/100 WBC (Bld) 9.0 % Normal [facility] Comment on above: Order Comment: Speci men Type: BLOOD SPECIMEN Ordering Facility: [facility] Address: [address] [place] [address] Performed By: #### V ITB6 #### [facility] CLIA [id number] [address] [place] [address] Neutrophils (Bld) [#/Vol] 15.29 10*3/uL High 1.45-7.50 [facility] Comment on above: Order Comment: Speci men Type: BLOOD SPECIMEN Ordering Facility: [facility] Address: [address] [place] [address] Performed By: #### V ITB6 #### [facility] CLIA [id number] [address] [place] [address] Neutrophils/100 WBC (Bld) 85.2 % Normal [facility] Comment on above: Order Comment: Speci men Type: BLOOD SPECIMEN Ordering Facility: [facility] Address: [address] [place] [address] Performed By: #### V ITB6 #### [facility] CLIA [id number] [address] [place] [address] Nucleated RBC (Bld) [#/Vol] 10*3/uL Normal <0.01 [facility] Comment on above: Order Comment: Speci men Type: BLOOD SPECIMEN Ordering Facility: [facility] Address: [address] [place] [address] Performed By: #### V ITB6 #### [facility] CLIA [id number] [address] [place] [address] Nucleated RBC/100 WBC (Bld) [Ratio] 0.0 /100 WBC Normal [facility] Comment on above: Order Comment: Speci men Type: BLOOD SPECIMEN Ordering Facility: [facility] Address: [address] [place] [address] Performed By: #### V ITB6 #### [facility] CLIA [id number] [address] [place] [address] Platelet mean volume (Bld) [Entitic vol] 10.8 fL Normal 9.0-12.7 [facility] Comment on above: Order Comment: Speci men Type: BLOOD SPECIMEN Ordering Facility: [facility] Address: [address] [address] Performed By: #### V ITB6 #### [facility] CLIA [id number] [address] [place] [address] Platelets (Bld) [#/Vol] 164 10*3/uL Normal 150-400 [facility] Comment on above: Order Comment: Speci men Type: BLOOD SPECIMEN Ordering Facility: [facility] Address: [address] [address] Performed By: #### V ITB6 #### [facility] CLIA [id number] [address] [place] [address] RBC (Bld) [#/Vol] 5.58 10*6/uL Normal 4.20-6.00 [facility] Comment on above: Order Comment: Speci men Type: BLOOD SPECIMEN Ordering Facility: [facility] Address: [address] [address] Performed By: #### V ITB6 #### [facility] CLIA [id number] [address] [place] [address] WBC (Bld) [#/Vol] 17.95 10*3/uL High 3.70-11.00 [facility] Comment on above: Order Comment: Speci men Type: BLOOD SPECIMEN Ordering Facility: [facility] Address: [address] [address] Performed By: #### V ITB6 #### [facility] CLIA [id number] [address] [place] [address] CT ABD/PEL W IVCONon 02-05-[address] ABD/PEL W IVCON * * *Final Report* * * DATE OF EXAM: Aug 31 2022 7:24PM [facility] 0530 - CT ABD/PEL W IVCON / [...] Tissues: No significant finding. Lower thorax: Unremarkable. Business Enterprise Officer (topogram) images: No additional findings. IMPRESSION: ACUTE EDEMATOUS PANCREATITIS. NO FLUID COLLECTIONS. Sports Director: GUILLE Transcribe Date/Time: Aug 31 2022 7:29P Dictated by : RADHA FRANCO MD This examination was interpreted and the report reviewed and electronically signed by: LAQUITA NUÑEZ MD on Aug 31 2022 8:01PM EST [id number] Normal [facility] Comprehensive metabolic 2000 panelon 08-31-2022 Albumin [Mass/Vol] 5.0 g/dL High 3.9-4.9 [facility] Comment on above: Order Comment: Speci men Type: BLOOD SPECIMENOrdering Facility: [facility] Address: [address] [place] [address] Performed By: #### 2 4323-8, 11302-6, 3040-3, 91424-6, 08530-8 ####[facility] [id number] [place] [address] [place] ALP [Catalytic activity/Vol] 64 U/L Normal 38-113 [facility] Comment on above: Order Comment: Speci men Type: BLOOD SPECIMENOrdering Facility: [facility] Address: [address] [place] [address] Performed By: #### 2 4323-8, 07765-5, 3040-3, 90480-4, 88956-2 ####[facility] [id number] [place] [address] [place] ALT [Catalytic activity/Vol] 21 U/L Normal 10-54 [facility] Comment on above: Order Comment: Speci men Type: BLOOD SPECIMENOrdering Facility: [facility] Address: [address] [place] [address] Performed By: #### 2 4323-8, 09867-6, 3040-3, 62821-5, 84749-5 ####[facility] [id number] [place] [id number] [place] Anion gap [Moles/Vol] 21 mmol/L High 9-18 [facility] Comment on above: Order Comment: Speci men Type: BLOOD SPECIMENOrdering Facility: [facility] Address: [address] [place] [address] Performed By: #### 2 4323-8, 08015-8, 3040-3, 14946-6, 93497-3 ####[facility] [id number] [place] [address] [place] AST [Catalytic activity/Vol] 31 U/L Normal 14-40 [facility] Comment on above: Order Comment: Speci men Type: BLOOD SPECIMENOrdering Facility: [facility] Address: [address] [place] [address] Performed By: #### 2 4323-8, 33023-7, 3040-3, 46910-7, 06134-2 ####[facility] [id number] [place] [address] [place] Bilirubin [Mass/Vol] 4.1 mg/dL High 0.2-1.3 [facility] Comment on above: Order Comment: Speci men Type: BLOOD SPECIMENOrdering Facility: [facility] Address: [address] [place] [address] Performed By: #### 2 4323-8, 82867-7, 3040-3, 93191-4, 38971-2 ####[facility] [id number] [place] [id number] [place] Calcium [Mass/Vol] 10.1 mg/dL Normal 8.5-10.2 [facility] Comment on above: Order Comment: Speci men Type: BLOOD SPECIMENOrdering Facility: [facility] Address: [address] [place] [address] Performed By: #### 2 4323-8, 47913-2, 3040-3, 15655-1, 53531-3 ####[facility] [id number] [place] [address] [place] Chloride [Moles/Vol] 95 mmol/L Low 97-105 [facility] Comment on above: Order Comment: Speci men Type: BLOOD SPECIMENOrdering Facility: [facility] Address: [address] [place] [address] Performed By: #### 2 4323-8, 37854-0, 3040-3, 02700-8, 47795-8 ####[facility] [id number] [place] [address] [place] CO2 [Moles/Vol] 21 mmol/L Low 22-30 [facility] Comment on above: Order Comment: Speci men Type: BLOOD SPECIMENOrdering Facility: [facility] Address: [address] [place] [address] Performed By: #### 2 4323-8, 37088-3, 3040-3, 28093-0, 06215-7 ####[facility] [id number] [place] [address] [place] Creatinine [Mass/Vol] 1.66 mg/dL High 0.73-1.22 [facility] Comment on above: Order Comment: Speci men Type: BLOOD SPECIMENOrdering Facility: [facility] Address: [address] [place] [address] Performed By: #### 2 4323-8, 48540-9, 3040-3, 80086-1, 31248-2 ####[facility] [id number] [place] [address] [place] ESTIMATED GLOMERULAR FILTRATION RATE 54 mL/min/1.73m??? Low >=60 [facility] Comment on above: Order Comment: Speci men Type: BLOOD SPECIMENOrdering Facility: [facility] Address: [address] [place] [address] Result Comment: Brenda mated Glomerular Filtration Rate [...] actual GFR. Performed By: #### 2 4323-8, 35433-2, 3040-3, 18922-2, 04787-1 ####[facility] [id number] [place] [id number] [place] Glucose [Mass/Vol] 129 mg/dL High 74-99 [facility] Comment on above: Order Comment: Specjake madrid Type: BLOOD SPECIMENOrdering Facility: [facility] Address: [address] [id number] Result Comment: The [employer] (ADA) provides guidance for cutoff [...] Standards of Medical Care in Diabetes 2016, [employer]. Diabetes Care. 2016.39(Suppl 1). Performed By: #### 2 4323-8, 18249-6, 3040-3, 03838-1, 42699-9 ####[facility] [id number] [place] [id number] [place] Potassium [Moles/Vol] 4.0 mmol/L Normal 3.7-5.1 [facility] Comment on above: Order Comment: Speci men Type: BLOOD SPECIMENOrdering Facility: [facility] Address: [address] [id number] Performed By: #### 2 4323-8, 45998-4, 0-3, 82673-0, 81168-0 ####[facility] [id number] [place] [id number] [place] Protein [Mass/Vol] 7.7 g/dL Normal 6.3-8.0 [facility] Comment on above: Order Comment: Speci men Type: BLOOD SPECIMENOrdering Facility: [facility] Address: [address] [place] [address] Performed By: #### 2 4323-8, 66324-6, 3039-3, 03044-5, 37001-8 ####[facility] [id number] [place] [address] [place] Sodium [Moles/Vol] 137 mmol/L Normal 136-144 [facility] Comment on above: Order Comment: Speci men Type: BLOOD SPECIMENOrdering Facility: [facility] Address: [address] [address] Performed By: #### 2 4323-8, 72123-3, 3039-3, 40349-3, 99029-4 ####[facility] [id number] [place] [id number] [place] Urea nitrogen [Mass/Vol] 18 mg/dL Normal 9-24 [facility] Comment on above: Order Comment: Speci men Type: BLOOD SPECIMENOrdering Facility: [facility] Address: [address] [address] Performed By: #### 2 4323-8, 20916-1, 0-3, 06877-9, 15380-2 ####[facility] [id number] [place] [id number] [place] ED NOTEon 08-31-2022 ED NOTE HNO ID: [id number] Author: Lorena Unger RN Service: Emergency Medicine [...] three days either due to vomiting. Normal [facility] ED NOTE HNO ID: [id number] Author: Reyes Schaefer RN Service: Emergency Medicine Author Type: Registered Nurse Type: ED Notes Filed: 08/31/2022 7:10 PM Note Text: Report given to BATOOL Rebollar Normal [facility] ED NOTE HNO ID: [id number] Author: Reyes Schaefer RN Service: Emergency Medicine [...] sating 100% RA. Pt hypertensive 200/96. Normal [facility] ED PROV NOTEon 08-31-2022 ED PROV NOTE HNO ID: [id number] Author: Ranjit Dawson MD Service: Emergency Medicine [...] components with (more content not included)... Normal [facility] Lipase SerPl-cCncon 08-31-19 23 Lipase [Catalytic activity/Vol] 894 U/L High 16-61 [facility] Comment on above: Order Comment: Noe [place] Type: BLOOD SPECIMEN Ordering Facility: [facility] Address: [address] [place] [address] Performed By: #### 5 763-8, COPPER #### [facility] CLIA [id number] [address] [facility] [address] [place] Magnesium SerPl-mCncon 08-31 Magnesium [Mass/Vol] 1.6 mg/dL Low 1.7-2.3 [facility] Comment on above: Order Comment: Noe madrid Type: BLOOD SPECIMENOrdering Facility: [facility] Address: [address] [place] [address] Performed By: #### 2 4323-8, 05265-9, 3040-3, 40101-5, 87156-4 ####[facility] [id number] [address] [place] PT panel Coag (PPP)on 2022 INR Coag (PPP) [Relative time] 1.2 {INR} Normal 0.9-1.3 [facility] Comment on above: Order Comment: Noe madrid Type: BLOOD SPECIMEN Ordering Facility: [facility] Address: [address] [place] [address] Result Comment: Aster min K Antagonist (VKA) Therapeutic Range: INR 2 to 3 (Target INR of 2.5) Note: For patients treated with VKA drugs, such as warfarin, the [employer] 2012 Guideline recommends [...] 70: 252-289 Performed By: #### 5 0189-0, 11092-1, 2132-03 #### [facility] CLIA [id number] [facility] [place] [address] [place] PT Coag (PPP) [Time] 12.7 s Normal 9.7-13.0 [facility] Comment on above: Order Comment: Speci men Type: BLOOD SPECIMEN Ordering Facility: [facility] Address: [address] [place] [address] Performed By: #### 5 0189-0, 88365-5, 2132-03 #### [facility] CLIA [id number] [address] [place] [address] [place] Procalcitonin SerPl-mCncon 0 08-31-2022 Procalcitonin [Mass/Vol] ng/mL Normal <0.09 [facility] Comment on above: Order Comment: Speci men Type: BLOOD SPECIMEN Ordering Facility: [facility] Address: [address] [place] [address] Result Comment: For a guided interpretation of test results, please visit the Change in Procalcitonin Calculator, [email or web address]. Performed By: #### 5 763-8, COPPER #### [facility] CLIA [id number] [address] [place] [address] [place] SARS-CoV-2 RNA Resp Ql NOLBERTO+p robeon 08-31-2022 SARS-CoV-2 (COVID-19) RNA NOLBERTO+probe Ql (Resp) COVID 19 RESULT: Not detected The method used is RT-PCR or an equivalent NAAT method. Reference Range(the expected result in uninfected individuals): Not detected Normal [facility] Comment on above: Performed By: #### 2 4323-8 #### [facility] CLIA [id number] [address] [place] [address] [place] Tacrolimus Bld-mCncon 2022 Tacrolimus (Bld) [Mass/Vol] 7.5 ng/mL Normal 5.0-20.0 [facility] Comment on above: Order Comment: Noe [place] Type: BLOOD SPECIMEN Ordering Facility: [facility] Address: [address] [place] [address] Result Comment: Thes e reference ranges are [...] Test performed by chemiluminescent immunoassay using Schuler Senior Resident Care Director. Performed By: #### V ITB6 #### [facility] [employer] CLIA [id number] [address] [place] [address] Tacrolimus (Bld) [Mass/Vol] 7.3 ng/mL Normal 5.0-20.0 [facility] Comment on above: Order Comment: Noe [place] Type: BLOOD SPECIMEN Ordering Facility: [facility] Address: [address] [place] [address] Result Comment: Thes e reference ranges are [...] Test performed by chemiluminescent immunoassay using Schuler Senior Resident Care Director. Performed By: #### 2 4323-8 #### [facility] CLIA [id number] [address] [place] [address] [place] CBC W Auto Differential pane l (Bld)on 07-07-2022 Basophils (Bld) [#/Vol] 10*3/uL Normal <0.11 [facility] Comment on above: Order Comment: Speci men Type: BLOOD SPECIMEN Ordering Facility: [facility] Address: [address] [place], [place] [address] Performed By: #### 5 0189-0, , 2132-03 #### [facility] CLIA [id number] [address] [place] [address] [place] Basophils/100 WBC (Bld) 0.2 % Normal [facility] Comment on above: Order Comment: Speci men Type: BLOOD SPECIMEN Ordering Facility: [facility] Address: [address] [place], [place] [address] Performed By: #### 5 0189-0, , 2132-03 #### [facility] CLIA [id number] [address] [place] [address] [place] Differential cell count method Nom (Bld) Auto Normal [facility] Comment on above: Order Comment: Speci men Type: BLOOD SPECIMEN Ordering Facility: [facility] Address: [address] [place], [place] [address] Performed By: #### 5 0189-0, , 2132-03 #### [facility] CLIA [id number] [address] [place] [address] [place] Eosinophils (Bld) [#/Vol] 0.10 10*3/uL Normal <0.46 [facility] Comment on above: Order Comment: Speci men Type: BLOOD SPECIMEN Ordering Facility: [facility] Address: [address] [place], [place] [address] Performed By: #### 5 0189-0, , 2132-03 #### [facility] CLIA [id number] [address] [place] [address] [place] Eosinophils/100 WBC (Bld) 2.0 % Normal [facility] Comment on above: Order Comment: Speci men Type: BLOOD SPECIMEN Ordering Facility: [facility] Address: [address] [place], [place] [address] Performed By: #### 5 0189-0, , 2132-03 #### [facility] CLIA [id number] [address] [place] [address] [place] Erythrocyte distribution width (RBC) [Ratio] 12.9 % Normal 11.5-15.0 [facility] Comment on above: Order Comment: Speci men Type: BLOOD SPECIMEN Ordering Facility: [facility] Address: [address] [place], [place] [address] Performed By: #### 5 0189-0, , 2132-03 #### [facility] CLIA [id number] [address] [place] [address] [place] Hematocrit (Bld) [Volume fraction] 39.1 % Normal 39.0-51.0 [facility] Comment on above: Order Comment: Speci men Type: BLOOD SPECIMEN Ordering Facility: [facility] Address: [address] [place], [place] [address] Performed By: #### 5 0189-0, , 2132-03 #### [facility] CLIA [id number] [address] [place] [address] [place] Hemoglobin (Bld) [Mass/Vol] 13.3 g/dL Normal 13.0-17.0 [facility] Comment on above: Order Comment: Speci men Type: BLOOD SPECIMEN Ordering Facility: [facility] Address: [address] [place] [address] Performed By: #### 5 0189-0, , 2132-03 #### [facility] CLIA [id number] [address] [place] [address] [place] Immature granulocytes (Bld) [#/Vol] 0.03 10*3/uL Normal <0.10 [facility] Comment on above: Order Comment: Speci men Type: BLOOD SPECIMEN Ordering Facility: [facility] Address: [address] [place], [place] [address] Performed By: #### 5 0189-0, , 2132-03 #### [facility] CLIA [id number] [address] [place] [address] [place] Immature granulocytes/100 WBC (Bld) 0.6 % Normal [facility] Comment on above: Order Comment: Speci men Type: BLOOD SPECIMEN Ordering Facility: [facility] Address: [address] [place] [address] Performed By: #### 5 0189-0, , 2132-03 #### [facility] CLIA [id number] [address] [place] [address] [place] Lymphocytes (Bld) [#/Vol] 0.36 10*3/uL Low 1.00-4.00 [facility] Comment on above: Order Comment: Speci men Type: BLOOD SPECIMEN Ordering Facility: [facility] Address: [address] [place], [place] [address] Performed By: #### 5 0189-0, , 2132-03 #### [facility] CLIA [id number] [address] [place] [address] [place] Lymphocytes/100 WBC (Bld) 7.3 % Normal [facility] Comment on above: Order Comment: Speci men Type: BLOOD SPECIMEN Ordering Facility: [facility] Address: [address] [place], [place] [address] Performed By: #### 5 0189-0, , 2132-03 #### [facility] CLIA [id number] [address] [place] [address] [place] MCH (RBC) [Entitic mass] 31.1 pg Normal 26.0-34.0 [facility] Comment on above: Order Comment: Speci men Type: BLOOD SPECIMEN Ordering Facility: [facility] Address: [address] [place] [address] Performed By: #### 5 0189-0, 61990-7, 2132-03 #### [facility] CLIA [id number] [address] [place] [address] [place] MCHC (RBC) [Mass/Vol] 34.0 g/dL Normal 30.5-36.0 [facility] Comment on above: Order Comment: Speci men Type: BLOOD SPECIMEN Ordering Facility: [facility] Address: [address] Performed By: #### 5 0189-0, 80975-7, 2132-03 #### [facility] CLIA [id number] [address] [place] [address] [place] MCV (RBC) [Entitic vol] 91.6 fL Normal 80.0-100.0 [facility] Comment on above: Order Comment: Speci men Type: BLOOD SPECIMEN Ordering Facility: [facility] Address: [address] Performed By: #### 5 0189-0, , 2132-03 #### [facility] CLIA [id number] [address] [place] [address] [place] Monocytes (Bld) [#/Vol] 0.55 10*3/uL Normal <0.87 [facility] Comment on above: Order Comment: Speci men Type: BLOOD SPECIMEN Ordering Facility: [facility] Address: [address] [place] [address] Performed By: #### 5 0189-0, , 2132-03 #### [facility] CLIA [id number] [address] [place] [address] [place] Monocytes/100 WBC (Bld) 11.1 % Normal [facility] Comment on above: Order Comment: Speci men Type: BLOOD SPECIMEN Ordering Facility: [facility] Address: [address] Performed By: #### 5 0189-0, , 2132-03 #### [facility] CLIA [id number] [address] [place] [address] [place] Neutrophils (Bld) [#/Vol] 3.89 10*3/uL Normal 1.45-7.50 [facility] Comment on above: Order Comment: Speci men Type: BLOOD SPECIMEN Ordering Facility: [facility] Address: [address] [place], [place] [address] Performed By: #### 5 0189-0, , 2132-03 #### [facility] CLIA [id number] [address] [place] [address] [place] Neutrophils/100 WBC (Bld) 78.8 % Normal [facility] Comment on above: Order Comment: Speci men Type: BLOOD SPECIMEN Ordering Facility: [facility] Address: [address] [place], [place] [address] Performed By: #### 5 0189-0, , 2132-03 #### [facility] CLIA [id number] [address] [place] [address] [place] Nucleated RBC (Bld) [#/Vol] 10*3/uL Normal <0.01 [facility] Comment on above: Order Comment: Speci men Type: BLOOD SPECIMEN Ordering Facility: [facility] Address: [address] [place] [address] Performed By: #### 5 0189-0, , 2132-03 #### [facility] CLIA [id number] [address] [place] [address] [place] Nucleated RBC/100 WBC (Bld) [Ratio] 0.0 /100 WBC Normal [facility] Comment on above: Order Comment: Speci men Type: BLOOD SPECIMEN Ordering Facility: [facility] Address: [address] [place] [address] Performed By: #### 5 0189-0, , 2132-03 #### [facility] CLIA [id number] [address] [place] [address] [place] Platelet mean volume (Bld) [Entitic vol] 12.4 fL Normal 9.0-12.7 [facility] Comment on above: Order Comment: Speci men Type: BLOOD SPECIMEN Ordering Facility: [facility] Address: [address] [place], [place] [address] Performed By: #### 5 0189-0, , 2132-03 #### [facility] CLIA [id number] [address] [place] [address] [place] Platelets (Bld) [#/Vol] 76 10*3/uL Low 150-400 [facility] Comment on above: Order Comment: Speci men Type: BLOOD SPECIMEN Ordering Facility: [facility] Address: [address] [place] [address] Result Comment: Resu lts checked and verified.No clot detected. Performed By: #### 5 0189-0, , 2132-03 #### [facility] CLIA [id number] [address] [place] [address] [place] RBC (Bld) [#/Vol] 4.27 10*6/uL Normal 4.20-6.00 [facility] Comment on above: Order Comment: Speci men Type: BLOOD SPECIMEN Ordering Facility: [facility] Address: [address] [place], [place] [address] Performed By: #### 5 0189-0, , 2132-03 #### [facility] CLIA [id number] [address] [place] [address] [place] WBC (Bld) [#/Vol] 4.94 10*3/uL Normal 3.70-11.00 [facility] Comment on above: Order Comment: Speci men Type: BLOOD SPECIMEN Ordering Facility: [facility] Address: [address] Performed By: #### 5 0189-0, 09212-0, 2131-9 #### [facility] CLIA [id number] [address] [place] [address] [place] Comprehensive metabolic 2000 panelon 07-07-2022 Albumin [Mass/Vol] 4.6 g/dL Normal 3.9-4.9 [facility] Comment on above: Order Comment: Speci men Type: BLOOD SPECIMENOrdering Facility: [facility] Address: [address] Performed By: #### 2 4323-8, 4-2, ####[facility] [id number] [place] [address] [place]#### 45456-6 ####[facility] [id number] [place] [address] [place] [facility]ATORYCLIA [id number] [place] [address] [place] ALP [Catalytic activity/Vol] 59 U/L Normal 38-113 [facility] Comment on above: Order Comment: Speci men Type: BLOOD SPECIMENOrdering Facility: [facility] Address: [address] Performed By: #### 2 4323-8, 2323-2, ####[facility] LAB[facility] [id number] [place] [address] [place]#### 38425-7 ####[facility] [id number] [place] [address] [place] [facility]ATORYCLIA [id number] [place] [address] [place] ALT [Catalytic activity/Vol] 46 U/L Normal 10-54 [facility] Comment on above: Order Comment: Speci men Type: BLOOD SPECIMENOrdering Facility: [facility] Address: [address] [place] [address] Performed By: #### 2 4323-8, 2323-08, ####[facility] LABCLIA [id number] [facility] [place] [address] [place]#### 62473-1 ####[facility] LABCLIA [id number] [facility] [place] [address] [place] [facility] LABORATORYCLIA [id number] [place] [address] [place] Anion gap [Moles/Vol] 13 mmol/L Normal 9-18 [facility] Comment on above: Order Comment: Speci men Type: BLOOD SPECIMENOrdering Facility: [facility] Address: [address] [place] [address] Performed By: #### 2 4322-8, 2323-08, ####[facility] LABCLIA [id number] [place] [address] [place]#### 11524-0 ####[facility] LABCLIA [id number] [facility] [address] [address] [place] OF [facility] LABORATORYCLIA [id number] [place] [address] [place] AST [Catalytic activity/Vol] 30 U/L Normal 14-40 [facility] Comment on above: Order Comment: Speci men Type: BLOOD SPECIMENOrdering Facility: [facility] Address: [address] [place] [address] Performed By: #### 2 4323-8, 2, ####[facility] [id number] [place] [address] [place]#### 17715-7 ####[facility] LABCLIA [id number] [address] STATES [facility] LABORATORYCLIA [id number] [place] [address] [place] Bilirubin [Mass/Vol] 0.9 mg/dL Normal 0.2-1.3 [facility] Comment on above: Order Comment: Speci men Type: BLOOD SPECIMENOrdering Facility: [facility] Address: [address] [place] [address] Performed By: #### 2 4323-8, 4-2, ####[facility] LABCLIA [id number] [place] [address] [place]#### 64589-9 ####[facility]CLIA [id number] [address] LABORATORYIA [id number] [place] [address] [place] Calcium [Mass/Vol] 9.7 mg/dL Normal 8.5-10.2 [facility] Comment on above: Order Comment: Speci men Type: BLOOD SPECIMENOrdering Facility: [facility] Address: [address] [place] [address] Performed By: #### 2 4323-8, 2323-2, ####[facility] LABCLIA [id number] [place] [address] [place]#### 41057-2 ####[facility] LABCLIA [id number] [address] STATES OF [facility] LABORATORYIA [id number] [place] [address] [place] Chloride [Moles/Vol] 104 mmol/L Normal 97-105 [facility] Comment on above: Order Comment: Speci men Type: BLOOD SPECIMENOrdering Facility: [facility] Address: [address] [place] [address] Performed By: #### 2 4323-8, 2323-2, ####[facility] LABCLIA [id number] [place] [address] [place]#### 50276-2 ####[facility] LABCLIA [id number] [place] [address] [place] [facility] LABORATORYCLIA [id number] [place] [address] [place] CO2 [Moles/Vol] 24 mmol/L Normal 22-30 [facility] Comment on above: Order Comment: Speci men Type: BLOOD SPECIMENOrdering Facility: [facility] Address: [address] [place] [address] Performed By: #### 2 432-8, 2323-08, ####[facility] LABCLIA [id number] [place] [address] [place]#### 14781-3 ####[facility] LABCLIA [id number] [place] [address] [place] [facility] LABORATORYCLIA [id number] [place] [address] [place] Creatinine [Mass/Vol] 1.14 mg/dL Normal 0.73-1.22 [facility] Comment on above: Order Comment: Speci men Type: BLOOD SPECIMENOrdering Facility: [facility] Address: [address] [place] [address] Performed By: #### 2 4323-8, 2, ####[facility] LABCLIA [id number] [place] [address] [place]#### 01050-8 ####[facility] LABCLIA [id number] [place] [address] LABORATORYCLIA [id number] [address] ESTIMATED GLOMERULAR FILTRATION RATE 85 mL/min/1.73m??? Normal >=60 [facility] Comment on above: Order Comment: [place]e [place] Type: BLOOD SPECIMENOrdering Facility: [facility] Address: [address] [place] [address] Result Comment: Brenda mated Glomerular Filtration Rate [...] GFR. Performed By: #### 2 4323-8, 2324-2, 13610-3 ####[facility] LABCLIA [id number] [address] [place]#### 89762-5 ####[facility] LABCLIA [id number] [address] LABORATORYCLIA [id number] [address] [place] Glucose [Mass/Vol] 109 mg/dL High 74-99 [facility] Comment on above: Order Comment: Noe [place] Type: BLOOD SPECIMENOrdering Facility: [facility] Address: [address] [place] [address] Result Comment: The [employer] (ADA) provides guidance for cutoff [...] Standards of Medical Care in Diabetes 2016, [employer]. Diabetes Care. 2016.39(Suppl 1). Performed By: #### 2 4323-8, 2323-08, ####[facility] LABCLIA [id number] [place] [address] [place]#### 47178-8 ####[facility] LABCLIA [id number] [address] LABORATORYCLIA [id number] [place] [address] [place] Potassium [Moles/Vol] 4.3 mmol/L Normal 3.7-5.1 [facility] Comment on above: Order Comment: Speci men Type: BLOOD SPECIMENOrdering Facility: [facility] Address: [address] [place] [address] Performed By: #### 2 4322-8, 2323-08, ####[facility] LABCLIA [id number] [place] [address] [place]#### 50251-6 ####[facility] LABCLIA [id number] [address] LABORATORYCLIA [id number] [place] [address] [place] Protein [Mass/Vol] 7.6 g/dL Normal 6.3-8.0 [facility] Comment on above: Order Comment: Speci men Type: BLOOD SPECIMENOrdering Facility: [facility] Address: [address] [place] [address] Performed By: #### 2 4323-8, 2, ####[facility] LABCLIA [id number] [place] [address] [place]#### 25006-9 ####[facility] LABCLIA [id number] [address] STATES [facility] LABORATORYCLIA [id number] [place] [address] [place] Sodium [Moles/Vol] 141 mmol/L Normal 136-144 [facility] Comment on above: Order Comment: Speci men Type: BLOOD SPECIMENOrdering Facility: [facility] Address: [address] [place] [address] Performed By: #### 2 4323-8, 2324-2, 44226-6 ####[facility] LABCLIA [id number] [place] [address] [place]#### 40378-4 ####[facility] LABCLIA [id number] [address] STATES [facility] LABORATORYCLIA [id number] [place] [address] [place] Urea nitrogen [Mass/Vol] 21 mg/dL Normal 9-24 [facility] Comment on above: Order Comment: Speci men Type: BLOOD SPECIMENOrdering Facility: [facility] Address: [address] [place] [address] Performed By: #### 2 4323-8, 4-2, 14800-8 ####[facility] LABCLIA [id number] [place] [address] [place]#### 37803-2 ####[facility] LABCLIA [id number] [address] STATES OF [facility] LABORATORYCLIA [id number] [place] [address] [place] GGT SerPl-cCncon 07-07-2022 Gamma glutamyl transferase [Catalytic activity/Vol] 54 U/L Normal 10-70 [facility] Comment on above: Order Comment: Speci men Type: BLOOD SPECIMENOrdering Facility: [facility] Address: [address] [id number] Performed By: #### 2 4323-8, 2, ####[facility] LABCLIA [id number] [place] [address] [place]#### 63174-6 ####[facility] LABCLIA [id number] [address] [place] LABORATORYCLIA [id number] [address] [place] Lipid 1996 panelon 2 Cholesterol [Mass/Vol] 180 mg/dL Normal <200 [facility] Comment on above: Order Comment: Speci men Type: BLOOD SPECIMENOrdering Facility: [facility] Address: [address] Result Comment: <200 mg/dL, Desirable 200-239 mg/dL, Borderline high >239 mg/dL, High Performed By: #### 2 4323-8, 2323-08, ####[facility] LABCLIA [id number] [place] [address] [place]#### 44835-6 ####[facility] LABCLIA [id number] [place] [address] [place] [facility] [place] LABORATORYCLIA [id number] [address] [place] Cholesterol in HDL [Mass/Vol] 36 mg/dL Low >39 [facility] Comment on above: Order Comment: Speci men Type: BLOOD SPECIMENOrdering Facility: [facility] Address: [address] [place] [address] Result Comment: 40-5 9 mg/dL, Acceptable >59 mg/dL, High: Negative risk factor for coronary heart disease <40 mg/dL, Low: Positive risk factor for coronary heart disease Performed By: #### 2 4323-8, 2323-2, ####[facility] LABCLIA [id number] [address] [address] [place]#### 32257-2 ####[facility] LABCLIA [id number] [address] [address] [place] [facility] LABORATORYCLIA [id number] [place] [address] [place] Cholesterol in LDL [Mass/Vol] 106 mg/dL High <100 [facility] Comment on above: Order Comment: Speci men Type: BLOOD SPECIMENOrdering Facility: [facility] Address: [address] [place] [address] Result Comment: <100 mg/dL, Optimal 100-129 mg/dL, Near optimal/above optimal 130-159 mg/dL, Borderline high 160-189 mg/dL, High >189 mg/dL, Very high Secondary prevention optimal LDL Cholesterol levels are recommended to be < 70 mg/dL Performed By: #### 2 4323-8, 2324-2, 43500-7 ####[facility] LABCLIA [id number] [place] [address] [place]#### 12502-6 ####[facility] LABCLIA [id number] [address] [address] [place] STATES OF [facility] LABORATORYCLIA [id number] [place] [address] [place] Cholesterol in LDL/Cholesterol in HDL [Mass ratio] 2.94 {ratio} High <2.54 [facility] Comment on above: Order Comment: Speci men Type: BLOOD SPECIMENOrdering Facility: [facility] Address: [address] [place], [place] [address] Result Comment: Li green: 1. National Cholesterol Education Program ATP III Guideline At-A-Glance Quick Desk Reference: National Heart, Lung, and Blood [place]. National Institutes of Health. 2001: NIH Publication No. 01-3305. 2. An International Atherosclerosis Society position paper: global recommendations for the management of dyslipidemia: executive summary, Atherosclerosis. 2014: 232(2):410-413. Performed By: #### 2 4323-8, 2323-, ####[facility] LABCLIA [id number] [address] [place]#### 04485-9 ####[facility] LABCLIA [id number] [place] [address] [facility] [place] LABORATORYCLIA [id number] [place] [address] [place] Cholesterol in VLDL [Mass/Vol] 38 mg/dL High <30 [facility] Comment on above: Order Comment: Speci men Type: BLOOD SPECIMENOrdering Facility: [facility] Address: [address] [place], [place] [address] Performed By: #### 2 4322-8, 2323-08, ####[facility] LABCLIA [id number] [place] [address] [place]#### 11646-2 ####[facility] LABCLIA [id number] [address] [address] [facility] [place] LABORATORYCLIA [id number] [place] [address] [place] Cholesterol non HDL [Mass/Vol] 144 mg/dL High <130 [facility] Comment on above: Order Comment: Speci men Type: BLOOD SPECIMENOrdering Facility: [facility] Address: [address] [place] [address] Result Comment: <130 mg/dL, Optimal 130-159 mg/dL, Near optimal/above optimal 160-189 mg/dL, Borderline high 190-219 mg/dL, High >219 mg/dL, Very high Secondary prevention optimal non HDL Cholesterol levels are recommended to be <100 mg/dL Performed By: #### 2 4323-8, 2323-08, ####[facility] LABCLIA [id number] [address] [address] [place]#### 66299-3 ####[facility] LABCLIA [id number] [address] [address] [facility] LABORATORYCLIA [id number] [place] [address] [place] Cholesterol.total/Chol esterol in HDL [Mass ratio] 5.00 {ratio} Normal <5.10 [facility] Comment on above: Order Comment: Speci men Type: BLOOD SPECIMENOrdering Facility: [facility] Address: [address] [place] [address] Performed By: #### 2 4323-8, 2323-2, ####[facility] LABCLIA [id number] [place] [address] [place]#### 53024-7 ####[facility] LABCLIA [id number] [address] STATES OF [facility] LABORATORYIA [id number] [place] [address] [place] FASTING TIME 1 hrs Normal [facility] Comment on above: Order Comment: Speci men Type: BLOOD SPECIMENOrdering Facility: [facility] Address: [address] [place] [address] Result Comment: veronica ent had lunch Performed By: #### 2 4323-8, 2323-2, ####[facility] LABCLIA [id number] [address] [address] [place]#### 16071-4 ####[facility] LABCLIA [id number] [address] [address] [place] [facility] LABORATORYCLIA [id number] [place] [address] [place] Triglyceride [Mass/Vol] 190 mg/dL High <150 [facility] Comment on above: Order Comment: Speci men Type: BLOOD SPECIMENOrdering Facility: [facility] Address: [place] [address] Result Comment: <150 mg/dL, Normal 150-199 mg/dL, Borderline high 200-499 mg/dL, High >499 mg/dL, Very high Performed By: #### 2 4323-8, 4-2, ####[facility] LABCLIA [id number] [place] [address] [place]#### 31488-9 ####[facility] LABCLIA [id number] [address] [place] LABORATORYCLIA [id number] [place] [address] [place] Magnesium SerPl-ncon 07-07 Magnesium [Mass/Vol] 1.7 mg/dL Normal 1.7-2.3 [facility] Comment on above: Order Comment: Speci men Type: BLOOD SPECIMENOrdering Facility: [facility] Address: [place] [address] Performed By: #### 2 4323-8, 2, ####[facility] LABCLIA [id number] [place] [address] [place]#### 80237-7 ####[facility] LABCLIA [id number] [place] [address] [facility] [place] LABORATORYCLIA [id number] [place] [address] [place] Phosphate SerPl-mCncon 07-07 Phosphate [Mass/Vol] 3.6 mg/dL Normal 2.7-4.8 [facility] Comment on above: Order Comment: Speci men Type: BLOOD SPECIMENOrdering Facility: [facility] Address: [address] [place] [address] Performed By: #### 2 777-1 ####[facility] LABCLIA [id number] [address] [id number] [address] [place] Tacrolimus Bld-mCncon 2021 Tacrolimus (Bld) [Mass/Vol] 3.0 ng/mL Low 5.0-20.0 [facility] Comment on above: Order Comment: Speci men Type: BLOOD SPECIMEN Ordering Facility: [facility] Address: [address] [place] [address] Result Comment: Thes e reference ranges are [...] Test performed by chemiluminescent immunoassay using Schuler Senior Resident Care Director. Performed By: #### V ITB6 #### [facility] [employer] Stack CLIA [id number] [address] [place] [address] [facility] CNPN Telephone (TXCTMN) CHUCKIE VILLALTA ([id number]) 1985 M TRN Date Time Provider Department [...] questions. Nadja Spencer (Cassie) RN, BSN Liver Getterer Allergies As of Date: 03/24/2022 Noted Allergy Reaction PENICILLINS 16 - Unknown Comments: Skin test positive 09/01/18 [place] 02/18/2021 14 - Other: See Comments SEASONAL ALLERGIES 06/29/2018 16 - Unknown Date Reviewed: 12/27/2021 Reviewed by: Carlos Muñoz RN - Fully Assessed Reason for Visit: Reminder To Have Labs Drawn [3337] Prescriptions as of 03/24/2022 - iv contrast [...] by NADJA SPENCER on 03/24/22 [facility] CNOVon 02-25-2022 CNOV Office Visit (PSCHL) CHUCKIE VILLALTA ([id number]) 1985 M TRN Date Time Provider Department 02/25/22 9:00 AM ROSEMARIE SHEPARD During your visit today, we recorded the following information about you: SHAQ Chua 02/25/2022 10:46 AM Signed [facility] Assessment Visit Type:Virtual Visit utilizing two-way audio and video for at least a portion of the visit IDENTIFYING INFORMATION: [phone] [email or web address] Lives with of nine years, Екатерина and [...] consented to virtual evaluation. Patient and this race and sports book writer present during interview. PRECIPITATING PROBLEM(S):Patient was dx with liver disease in 2017. Completed an IOP at [facility] in summer 2018, and received liver transplant [...] Age 16, every other weekend. Went to [email or web address] for college drank heavily on weekends, then [...] was intend (more content not included)... Normal [facility] [place] [facility] ABDOMEN W IVCONon 022 [facility] Basic Metabolic Panlon 07-12 Anion gap [Moles/Vol] 8 mmol/L Low 9-18 [facility] Calcium [Mass/Vol] 8.6 mg/dL Normal 8.5-10.2 [facility] Chloride [Moles/Vol] 103 mmol/L Normal 97-105 [facility] CO2 [Moles/Vol] 24 mmol/L Normal 22-30 [facility] Creatinine [Mass/Vol] 2.67 mg/dL High 0.73-1.22 [facility] eGFR- Amer. 33 Normal [facility] eGFR-All Other Races 27 . Normal [facility] Comment on above: Result Comment: eGFR (Estimated GFR) Units of measure: mL/min/1.73 meters squared eGFR is derived from the reexpressed MDRD Study equation using the following parameters: serum creatinine, age, gender and race. The creatinine assay has been calibrated to be traceable to IDWI. An eGFR <60 mL/min/1.73m2 for >3 months [...] [email or web address]. Glucose [Mass/Vol] 113 mg/dL High 74-99 [facility] Comment on above: Result Comment: The [employer] Diabetes Association (ADA) provides guidance for cutoff [...] Standards of Medical Care in Diabetes 2016, [employer] Diabetes Association. Diabetes Care. 2016.39(Suppl 1). Potassium [Moles/Vol] 3.3 mmol/L Low 3.7-5.1 [facility] Sodium [Moles/Vol] 135 mmol/L Low 136-144 [facility] Urea nitrogen [Mass/Vol] 11 mg/dL Normal 9-24 [facility] CASE MANAGEMon 07-12-2021 CASE MANAGEM HNO ID: [id number] Author: Nanette Dangelo RN Service: ? Author [...] 12, 2021 TIME: 4:48 PM PAGER/CONTACT #: [facility] 07-12-2021 [facility] HNO ID: [id number] Author: [place] MD Service: Hospital Medicine [...] GI team who initially recommended ERCP at [facility] but at this time planning to [...] 1.3. He was seen by infectious disease qm consultant today who recommended adding G6PD to [...] specialist. You were also seen by pain enrollment management manager while you are in the hospital. I have not added any pain medications due to near complete resolution of symptoms. You were seen by neurologist recently for the patient's symptoms. They will follow up as an outpatient also. Please follow-up with primary MD in 1 week Follow-up with transplant team at the earliest available appointment-study coordinator has promised to set up an [...] identified Vision (more content not included)... Normal [facility] CONSULTon 07-12-2021 CONSULT HNO ID: [id number] Author: Latrell Cabello MD Service: Infectious Disease [...] Nev (more content not included)... [facility] CONSULT PROGon 07-12-2021 CONSULT PROG HNO ID: [id number] Author: Justin Glasgow PA-C Service: Pain Management Author Type: Physician Gas Attendant Type: Consult Progress Note Filed: 07/12/2021 4:02 PM Note Text: Pain Management - Progress Note Name: Chuckie Villatla Date: July 12, 2021 Time: 3:49 PM ASSESSMENT: upper abdominal pain PLAN: Continue current inpatient analgesic regimen. SUBJECTIVE: Chuckie Villalta is a 35 year old male with upper abdominal pain. Patient reports that his analgesics have been suspended pending D/C. Pain scores overnight between 4-8/10 per Vital Business Enterprise Officer. The patient's current inpatient analgesic regimen [...] DS,SEPTRA DS) 1 tablet ORAL MO-WE-FR - [Held on Transfer - Suspended Admission] [...] Garrido, PA-C July 12, 2021 4:01 PM [facility] CONSULT PROG HNO ID: [id number] Author: Spike Gandara MD Service: Nephrology Author Type: Physician Type: Consult Progress Note Filed: 07/12/2021 12:22 PM Note Text: [facility] NEPHROLOGY CONSULT PROGRESS NOTE SERVICE DATE: [...] DATE: July 12, 2021 12:22 PM PHONE: [phone] FOR AFTER HOUR CONCERNS BETWEEN 7PM - 7AM CONTACT ON-CALL NEPHROLOGY STAFF Normal [facility] Hepatic Functn Panelon 07-12 Albumin [Mass/Vol] 3.0 g/dL Low 3.9-4.9 [facility] ALP [Catalytic activity/Vol] 292 U/L High 38-113 [facility] ALT [Catalytic activity/Vol] 44 U/L Normal 10-54 [facility] AST [Catalytic activity/Vol] 129 U/L High 14-40 [facility] Bilirubin [Mass/Vol] 1.6 mg/dL High 0.2-1.3 [facility] Bilirubin,Conjugated 1.0 mg/dL High <0.2 [facility] Protein [Mass/Vol] 5.7 g/dL Low 6.3-8.0 [facility] NURSING PROGon 07-12-2021 NURSING PROG HNO ID: [id number] Author: Marcela Mcdaniel RN Service: Nursing Author Type: Registered Nurse Type: Nursing Progress Note Filed: 07/12/2021 1:03 AM Note Text: Nursing Progress Note Patient Name: Chuckie Villalta Patient Location: / Daily Note: Report received from BATOOL Nolan. Pt resting comfortably in bed. Will continue to monitor. This note was completed by: Marcela Mcdaniel [facility] Tacrolimus / [id number] Tacrolimus / FK506 7.7 ng/mL Normal 5.0-20.0 [facility] Comment on above: Result Comment: Thes e [...] situation. Test performed by chemiluminescent immunoassay using Social IQ (Social Influence Quotient). Performed By: #### F K506 ####[facility] [id number] [place], [place] [phone] Amylaseon 07-11-2021 Amylase [Catalytic activity/Vol] 59 U/L Normal 30-104 [facility] Basic Metabolic Panlon 07-11 Anion gap [Moles/Vol] 10 mmol/L Normal 9-18 [facility] Calcium [Mass/Vol] 8.5 mg/dL Normal 8.5-10.2 [facility] Chloride [Moles/Vol] 103 mmol/L Normal 97-105 [facility] CO2 [Moles/Vol] 22 mmol/L Normal 22-30 [facility] Creatinine [Mass/Vol] 2.77 mg/dL High 0.73-1.22 [facility] eGFR- Amer. 32 Normal [facility] eGFR-All Other Races 26 . Normal [facility] Comment on above: Result Comment: eGFR (Estimated [...] [email or web address]. Glucose [Mass/Vol] 122 mg/dL High 74-99 [facility] Comment on above: Result Comment: The [place] Diabetes Association (ADA) provides guidance for cutoff [...] Standards of Medical Care in Diabetes 2016, [place] Diabetes Association. Diabetes Care. 2016.39(Suppl 1). Potassium [Moles/Vol] 3.5 mmol/L Low 3.7-5.1 [facility] Sodium [Moles/Vol] 135 mmol/L Low 136-144 [facility] Urea nitrogen [Mass/Vol] 12 mg/dL Normal 9-24 [facility] CONSULT PROGon 07-11-2021 CONSULT PROG HNO ID: [id number] Author: Spike Gandara MD Service: Nephrology Author Type: Physician Type: Consult Progress Note Filed: 07/11/2021 1:06 PM Note Text: [facility] NEPHROLOGY CONSULT PROGRESS NOTE SERVICE DATE: [...] stenosis, seem by GI, pending transfer to [facility] ? 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 The patient's current inpatient analgesic regimen [...] 4 quadrants. No masses, organomegaly Justin Glasgow MPAS, PA-C July 11, 2021 11:02 AM Normal [facility] Amylaseon 07-10-2021 Amylase [Catalytic activity/Vol] 51 U/L Normal 30-104 [facility] Basic Metabolic Panlon 07-10 Anion gap [Moles/Vol] 10 mmol/L Normal 9-18 [facility] Calcium [Mass/Vol] 8.5 mg/dL Normal 8.5-10.2 [facility] Chloride [Moles/Vol] 106 mmol/L High 97-105 [facility] CO2 [Moles/Vol] 21 mmol/L Low 22-30 [facility] Creatinine [Mass/Vol] 2.80 mg/dL High 0.73-1.22 [facility] eGFR- Amer. 31 Normal [facility] eGFR-All Other Races 26 . Normal [facility] Comment on above: Result Comment: eGFR (Estimated [...] [email or web address]. Glucose [Mass/Vol] 126 mg/dL High 74-99 [facility] Comment on above: Result Comment: The [employer] Diabetes Association (ADA) provides guidance for cutoff [...] Standards of Medical Care in Diabetes 2016, [employer] Diabetes Association. Diabetes Care. 2016.39(Suppl 1). Potassium [Moles/Vol] 3.5 mmol/L Low 3.7-5.1 [facility] Sodium [Moles/Vol] 137 mmol/L Normal 136-144 [facility] Urea nitrogen [Mass/Vol] 13 mg/dL Normal 9-24 [facility] CONSULT PROGon 07-10-2021 CONSULT PROG HNO ID: [id number] Author: Justin Glasgow PA-C Service: Pain Management Author Type: Physician Gas Attendant Type: Consult Progress Note Filed: 07/10/2021 12:38 [...] Pain scores overnight between 4-7/10 per [employer] Business Enterprise Officer. The patient's current inpatient analgesic regimen [...] July 10, 2021 12:38 PM [facility] CONSULT PROG HNO ID: [id number] Author: Spike Gandara MD Service: Nephrology Author Type: Physician Type: Consult Progress Note Filed: 07/10/2021 11:42 AM Note Text: [facility] NEPHROLOGY CONSULT PROGRESS NOTE SERVICE DATE: [...] stenosis, seem by GI, pending transfer to [facility] ? 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 Performed By: #### F K506 ####[facility] [address] [place], [place] [id number] [facility] 07-09-2021 [facility] HNO ID: [id number] Author: RT Kristyn(R) Service: ? Author Type: [...] Kristyn(R) July 08, 2021 11:17 PM Normal [facility] CASE MANAGEMon 07-09-2021 CASE MANAGEM HNO ID: [id number] Author: Nanette Dangelo RN Service: ? Author [...] 2021 TIME: 6:19 PM PAGER/CONTACT #: Normal [facility] CBC and Differentialon 07-09 Abs Baso 0.00 k/uL Normal <0.11 [facility] Abs [place] 1.28 k/uL High <0.87 [facility] Abs Neut 7.42 k/uL Normal 1.45-7.50 [facility] ANC(includeSEG+BAND) 7.42 k/uL Normal [facility] Anisocytosis Ql (Bld) Present Normal [facility] Basophils/100 WBC (Bld) 0.0 % Normal [facility] DTYPE Manual Diff Normal [facility] Eosinophils (Bld) [#/Vol] 0.00 10*3/uL Normal <0.46 [facility] Eosinophils/100 WBC (Bld) 0.0 % Normal [facility] Erythrocyte distribution width (RBC) [Ratio] 15.6 % High 11.5-15.0 [facility] Hematocrit (Bld) [Volume fraction] 26.3 % Low 39.0-51.0 [facility] Hemoglobin (Bld) [Mass/Vol] 9.1 g/dL Low 13.0-17.0 [facility] Left Shift Present Normal [facility] Lymphocytes (Bld) [#/Vol] 0.37 10*3/uL Low 1.00-4.00 [facility] Lymphocytes/100 WBC (Bld) 4.0 % Normal [facility] MCH 35.0 pG High 26.0-34.0 [facility] MCHC (RBC) [Mass/Vol] 34.6 g/dL Normal 30.5-36.0 [facility] MCV (RBC) [Entitic vol] 101.2 fL High 80.0-100.0 [facility] Monocytes/100 WBC (Bld) 14.0 % Normal [facility] Myelo% 1.0 % Normal [facility] Neutrophils/100 WBC (Bld) 81.0 % Normal [facility] Platelet Estimate Platelet estimate decreased Normal [facility] Platelet mean volume (Bld) [Entitic vol] 12.3 fL Normal 9.0-12.7 [facility] Platelets (Bld) [#/Vol] 59 10*3/uL Low 150-400 [facility] Polychromasia Slight Normal [facility] RBC (Bld) [#/Vol] 2.60 10*6/uL Low 4.20-6.00 [facility] WBC (Bld) [#/Vol] 9.16 10*3/uL Normal 3.70-11.00 [facility] CONSULT PROGon 07-09-2021 CONSULT PROG HNO ID: [id number] Author: Justin Glasgow PA-C Service: Pain Management Author Type: Physician Gas Attendant Type: Consult Progress Note Filed: 07/09/2021 3:41 [...] Pain scores overnight between 4-8/10 per [employer] Business Enterprise Officer. The patient's current inpatient analgesic regimen [...] PA-C July 09, 2021 3:41 PM Normal [facility] CONSULT PROG HNO ID: [id number] Author: Ana Cotton APRN.HERNANDEZ Service: Gastroenterology Author [...] Pt [facility] [place], pt will likely still be inpatient for few days while monitoring kidney function and tacro levels if does not get a bed still at that time and tolerating diet can likely get scheduled for ERCP at [facility] as outpatient Will continue to monitor peripherally Normal [facility] CONSULT PROG HNO ID: [id number] Author: Spike Gandara MD Service: Nephrology Author Type: Physician Type: Consult Progress Note Filed: 07/09/2021 12:32 PM Note Text: [facility] NEPHROLOGY CONSULT PROGRESS NOTE SERVICE DATE: [...] stenosis, seem by GI, pending transfer to [place] [facility] ? Hemochromatosis s/p OLT on immunosuppression [...] DATE: July 09, 2021 11:39 AM PHONE: [phone] FOR AFTER HOUR CONCERNS BETWEEN 7PM - 7AM CONTACT ON-CALL NEPHROLOGY STAFF [facility] CONSULT PROG HNO ID: [id number] Author: Valencia Noguera [facility] Service: Pharmacy Author Type: Pharmacist Type: Consult [...] reviewed the above information with the pharmacy specialist/resident or criminalist technician and agree with the assessment/plan described. Changes or additions to the note are indicated by italics and . Valencia Noguera, Pharmacist 07/09/2021 7:54 AM Ext: [phone] [facility] CONSULT PROG HNO ID: [id number] Author: Lei Mckoy [facility] Service: Pharmacy Author Type: Pharmacist Type: Consult [...] have any questions, please contact pharmacy at [phone]. Age: [age] year old Allergies: ALLERGIES Allergen [...] 18.6 07/07/2021 2002 37.3 (H) Lei Mckoy, [facility] Normal [facility] Comp Metabolic Panelon 07-09 Albumin [Mass/Vol] 2.9 g/dL Low 3.9-4.9 [facility] ALP [Catalytic activity/Vol] 63 U/L Normal 38-113 [facility] ALT [Catalytic activity/Vol] 16 U/L Normal 10-54 [facility] Anion gap [Moles/Vol] 8 mmol/L Low 9-18 [facility] AST [Catalytic activity/Vol] 17 U/L Normal 14-40 [facility] Bilirubin [Mass/Vol] 1.0 mg/dL Normal 0.2-1.3 [facility] Calcium [Mass/Vol] 8.0 mg/dL Low 8.5-10.2 [facility] Chloride [Moles/Vol] 109 mmol/L High 97-105 [facility] CO2 [Moles/Vol] 20 mmol/L Low 22-30 [facility] Creatinine [Mass/Vol] 2.83 mg/dL High 0.73-1.22 [facility] eGFR- Amer. 31 Normal [facility] eGFR-All Other Races 26 . Normal [facility] Comment on above: Result Comment: eGFR (Estimated [...] [email or web address]. Glucose [Mass/Vol] 174 mg/dL High 74-99 [facility] Comment on above: Result Comment: The [employer] Diabetes Association (ADA) provides guidance for cutoff [...] Standards of Medical Care in Diabetes 2016, [employer] Diabetes Association. Diabetes Care. 2016.39(Suppl 1). Potassium [Moles/Vol] 3.8 mmol/L Normal 3.7-5.1 [facility] Protein [Mass/Vol] 5.1 g/dL Low 6.3-8.0 [facility] Sodium [Moles/Vol] 137 mmol/L Normal 136-144 [facility] Urea nitrogen [Mass/Vol] 16 mg/dL Normal 9-24 [facility] MRI BRAIN WO IVCONon 021 MRI BRAIN WO IVCON * * *Final Report* * * DATE OF EXAM: Jul 08 2021 11:28PM [facility] 0294 - MRI BRAIN WO [...] if there is concern for demyelinating disease. Sports Director: PSCB Transcribe Date/Time: Jul 09 2021 2:02A Dictated by : CARLOS ALEJANDRA MD This examination was interpreted and the report reviewed and electronically signed by: CARLOS ALEJANDRA MD on Jul 09 2021 2:09AM EST [id number] Normal [facility] Magnesiumon 07-09-2021 Magnesium [Mass/Vol] 1.8 mg/dL Normal 1.7-2.3 [facility] NURSING PROGon 07-09-2021 NURSING PROG HNO ID: [id number] Author: Demetrice Chacon RN Service: Nursing Author [...] note was completed by: Demetrice Chacon Normal [facility] Protein/Creatinine Ratioon 1 09-09-2020 Creatinine,Urine,Ran 68.3 mg/dL Normal 20-300 [facility] Comment on above: Performed By: #### P RATIO ####[facility] [place] [place], [place] [phone] Protein (U) [Mass/Vol] 7 mg/dL Normal 0-20 [facility] Comment on above: Performed By: #### P RATIO ####[facility] [place], [place] [phone] Protein/Creatinine Ratio 0.1 Normal <0.2 [facility] Comment on above: Performed By: #### P RATIO ####[facility] [place], [place] [phone] Urinalysis with Microscopico n 12-14-2021 Bilirubin, Urine Negative Normal Negative [facility] Cast SEE COMMENT Normal 0 [facility] Comment on above: Result Comment: 0 Clarity (U) Clear Normal Clear [facility] Color (U) Yellow Normal Yellow [facility] Glucose Ql (U) 1+ mg/dL Critically abnormal Negative [facility] Hemoglobin/Blood,Ur Negative Normal Negative [facility] Ketones Ql (U) Negative Normal Negative [facility] Leukest Negative Normal Negative [facility] Nitrite Ql (U) Negative Normal Negative [facility] pH (U) 5.5 [pH] Normal 5.0-8.0 [facility] Protein, Urine Trace Critically abnormal Negative [facility] RBC 0-3 Normal 0-3 [facility] Specific [place], Ur 1.010 Normal 1.005-1.030 [facility] Urobilinogen Qn (U) 0.2 {Andrea'U}/dL Normal 0.2-1.0 [facility] WBC 0-5 Normal 0-5 [facility] ALLIED HEALTHon 07-08-2021 ALLIED HEALTH HNO ID: [id number] Author: Joshua Moran Service: Spiritual Care Author Type: ? Type: Allied Health Filed: 07/08/2021 1:06 PM Note Text: SPIRITUAL CARE PROGRESS NOTE SERVICE DATE: 07/08/2021 SERVICE TIME: 12:45PM Pt listed as [employer] in [facility], and he shared that he and his family attend the [place] in [place], [place]; pt in good spirits but drowsy at the time of visit; shared that he has undergone a liver transplant, and is now dealing with pancreatitis; provided him with a daily devotional for his use, and offered a blessing bedside; no follow-up planned unless requested. To contact the Spiritual Care Department: Please call Ext [phone] SIGNATURE: Joshua Moran PATIENT NAME: Chuckie Villalta DATE: July 08, 2021 TIME: 1:04 PM PAGER/CONTACT #: [phone] Normal [facility] CBC and Differentialon 07-08 Abs Baso 0.00 k/uL Normal <0.11 [facility] Abs [place] 1.25 k/uL High <0.87 [facility] Abs Neut 6.26 k/uL Normal 1.45-7.50 [facility] ANC(includeSEG+BAND) 6.26 k/uL Normal [facility] Anisocytosis Ql (Bld) Present Normal [facility] Basophils/100 WBC (Bld) 0.0 % Normal [facility] DTYPE Manual Diff Normal [facility] Eosinophils (Bld) [#/Vol] 0.00 10*3/uL Normal <0.46 [facility] Eosinophils/100 WBC (Bld) 0.0 % Normal [facility] Erythrocyte distribution width (RBC) [Ratio] 15.7 % High 11.5-15.0 [facility] Hematocrit (Bld) [Volume fraction] 26.0 % Low 39.0-51.0 [facility] Hemoglobin (Bld) [Mass/Vol] 9.0 g/dL Low 13.0-17.0 [facility] Left Shift Present Normal [facility] Lymphocytes (Bld) [#/Vol] 0.23 10*3/uL Low 1.00-4.00 [facility] Lymphocytes/100 WBC (Bld) 3.0 % Normal [facility] MCH 35.4 pG High 26.0-34.0 [facility] MCHC (RBC) [Mass/Vol] 34.6 g/dL Normal 30.5-36.0 [facility] MCV (RBC) [Entitic vol] 102.4 fL High 80.0-100.0 [facility] Monocytes/100 WBC (Bld) 16.0 % Normal [facility] Myelo% 1.0 % Normal [facility] Neutrophils/100 WBC (Bld) 80.0 % Normal [facility] Platelet Estimate Platelet estimate decreased Normal [facility] Platelet mean volume (Bld) [Entitic vol] 12.3 fL Normal 9.0-12.7 [facility] Platelets (Bld) [#/Vol] 39 10*3/uL Low 150-400 [facility] Polychromasia Slight Normal [facility] RBC (Bld) [#/Vol] 2.54 10*6/uL Low 4.20-6.00 [facility] WBC (Bld) [#/Vol] 7.82 10*3/uL Normal 3.70-11.00 [facility] CONSULTon 07-08-2021 CONSULT HNO ID: [id number] Author: Justin Glasgow PA-C Service: Pain Management Author Type: Physician Gas Attendant Type: Consults Filed: 07/08/2021 2:06 PM Note Text: PAIN MANAGEMENT CONSULT -- [facility] PATIENT NAME: Chuckie Villalta DATE of [...] is consulted RE: acute pancreatitis, on fentanyl 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 Jolynn Jaquez and Lisseth [...] (PF) 4 mg injection (ZOFRAN) - fentaNYL ASSEMBLER DECK AND HULL 20 mcg/mL in NaCl 0.9% 100 mL [...] 167* TP (more content not included)... Normal [facility] CONSULT HNO ID: [id number] Author: Spike Gandara MD Service: Nephrology Author Type: Physician Type: Consults Filed: 07/08/2021 2:05 PM Note Text: [facility] NEPHROLOGY AND HYPERTENSION [facility] SERVICE DATE: July 08, 2021 SERVICE TIME: 1:31 PM PRIMARY CARE PHYSICIAN: Luis Abdalal DO REASON FOR CONSULT: I am asked [...] injection (ZOF (more content not included)... Normal [facility] CONSULT PROGon 07-08-2021 CONSULT PROG HNO ID: [id number] Author: Ana Cotton APRN.RECEPTIONIST [employer] Service: Gastroenterology Author Type: Nurse Practitioner Type: [...] Splenomegaly. 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 Will discuss with staff and SM Dr. Quezada as well. Normal [facility] Calcium, Ionizedon Calcium, Ionized 1.12 mmol/L Normal 1.08-1.30 [facility] Comp Metabolic Panelon 07-08 Albumin [Mass/Vol] 2.9 g/dL Low 3.9-4.9 [facility] ALP [Catalytic activity/Vol] 60 U/L Normal 38-113 [facility] ALT [Catalytic activity/Vol] 22 U/L Normal 10-54 [facility] Anion gap [Moles/Vol] 8 mmol/L Low 9-18 [facility] AST [Catalytic activity/Vol] 38 U/L Normal 14-40 [facility] Bilirubin [Mass/Vol] 1.6 mg/dL High 0.2-1.3 [facility] Calcium [Mass/Vol] 8.0 mg/dL Low 8.5-10.2 [facility] Chloride [Moles/Vol] 106 mmol/L High 97-105 [facility] CO2 [Moles/Vol] 18 mmol/L Low 22-30 [facility] Creatinine [Mass/Vol] 2.34 mg/dL High 0.73-1.22 [facility] eGFR- Amer. 39 Normal [facility] eGFR-All Other Races 32 . Normal [facility] Comment on above: Result Comment: eGFR (Estimated [...] [email or web address]. Glucose [Mass/Vol] 107 mg/dL High 74-99 [facility] Comment on above: Result Comment: The [employer] Diabetes Association (ADA) provides guidance for cutoff [...] Standards of Medical Care in Diabetes 2016, [employer] Diabetes Association. Diabetes Care. 2016.39(Suppl 1). Potassium [Moles/Vol] 3.9 mmol/L Normal 3.7-5.1 [facility] Protein [Mass/Vol] 4.9 g/dL Low 6.3-8.0 [facility] Sodium [Moles/Vol] 132 mmol/L Low 136-144 [facility] Urea nitrogen [Mass/Vol] 17 mg/dL Normal 9-24 [facility] Lipaseon 07-08-2021 Lipase [Catalytic activity/Vol] 235 U/L High 16-61 [facility] Magnesiumon 07-08-2021 Magnesium [Mass/Vol] 1.4 mg/dL Low 1.7-2.3 [facility] Tacrolimus / [id number] 021 Tacrolimus / FK506 23.3 ng/mL High 5.0-20.0 [facility] Comment on above: Result Comment: Thes e [...] Test performed by chemiluminescent immunoassay using Schuler Senior Resident Care Director. Performed By: #### F K506 ####[facility] [id number] [place], [place] [phone] US ABD RIGHT UPPER QUADRANTo n 07-08-2021 US ABD RIGHT UPPER QUADRANT * * *Final Report* * * DATE OF EXAM: Jul 08 2021 12:08PM [facility] 1032 - US ABD RIGHT UPPER [...] 5. Trace ascites in the upper abdomen. Sports Director: PSCZay Transcribe Date/Time: Jul 08 2021 12:28P Dictated by : ROCIO MANZO MD This examination was interpreted and the report reviewed and electronically signed by: ROCIO MANZO MD on Jul 08 2021 12:32PM EST [id number] Normal [facility] US ABD SPLEEN -NBon 07-08-20 US ABD SPLEEN -NB * * *Final Report* * * DATE OF EXAM: Jul 08 2021 12:08PM U 1232 - US ABD SPLEEN -NB / [...] 5. Trace ascites in the upper abdomen. Sports Director: [facility] Transcribe Date/Time: Jul 08 2021 12:28P Dictated by : ROCIO MANZO MD This examination was interpreted and the report reviewed and electronically signed by: ROCIO MANZO MD on Jul 08 2021 12:32PM EST [id number] Normal [facility] Vancomycinon 07-08-2021 Vancomycin 18.6 ug/mL Normal 10.0-20.0 [facility] Comment on above: Result Comment: Refe rence ranges and high/low indicator flags are provided as general guidelines only. The treating physician must determine appropriate target levels/dosing based on the specific clinical situation. CBCon 07-07-2021 Absolute nRBC 0.03 k/uL High <0.01 [facility] Erythrocyte distribution width (RBC) [Ratio] 15.7 % High 11.5-15.0 [facility] Hematocrit (Bld) [Volume fraction] 29.1 % Low 39.0-51.0 [facility] Hemoglobin (Bld) [Mass/Vol] 10.5 g/dL Low 13.0-17.0 [facility] MCH 36.2 pG High 26.0-34.0 [facility] MCHC (RBC) [Mass/Vol] 36.1 g/dL High 30.5-36.0 [facility] MCV (RBC) [Entitic vol] 100.3 fL High 80.0-100.0 [facility] Platelet mean volume (Bld) [Entitic vol] 11.8 fL Normal 9.0-12.7 [facility] Platelets (Bld) [#/Vol] 45 10*3/uL Low 150-400 [facility] RBC (Bld) [#/Vol] 2.90 10*6/uL Low 4.20-6.00 [facility] WBC (Bld) [#/Vol] 9.23 10*3/uL Normal 3.70-11.00 [facility] CONSULT PROGon 07-07-2021 CONSULT PROG HNO ID: [id number] Author: Valencia Noguera RP Service: Pharmacy Author [...] have any questions, please contact pharmacy at [phone]. Age: [age] year old Allergies: ALLERGIES Allergen [...] Date/Time Value 07/07/20212001 37.3 (H) Valencia Noguera, [facility] Normal [facility] Comp Metabolic Panelon 07-07 Albumin [Mass/Vol] 3.0 g/dL Low 3.9-4.9 [facility] ALP [Catalytic activity/Vol] 70 U/L Normal 38-113 [facility] ALT [Catalytic activity/Vol] 41 U/L Normal 10-54 [facility] Anion gap [Moles/Vol] 9 mmol/L Normal 9-18 [facility] AST [Catalytic activity/Vol] 131 U/L High 14-40 [facility] Bilirubin [Mass/Vol] 4.9 mg/dL High 0.2-1.3 [facility] Calcium [Mass/Vol] 7.9 mg/dL Low 8.5-10.2 [facility] Chloride [Moles/Vol] 105 mmol/L Normal 97-105 [facility] CO2 [Moles/Vol] 18 mmol/L Low 22-30 [facility] Creatinine [Mass/Vol] 1.63 mg/dL High 0.73-1.22 [facility] eGFR- Amer. 59 Normal [facility] eGFR-All Other Races 48 . Normal [facility] Comment on above: Result Comment: eGFR (Estimated [...] [email or web address]_calculator. Glucose [Mass/Vol] 110 mg/dL High 74-99 [facility] Comment on above: Result Comment: The [employer] Diabetes Association (ADA) provides guidance for cutoff [...] Standards of Medical Care in Diabetes 2016, [employer] Diabetes Association. Diabetes Care. 2016.39(Suppl 1). Potassium [Moles/Vol] 4.1 mmol/L Normal 3.7-5.1 [facility] Protein [Mass/Vol] 5.0 g/dL Low 6.3-8.0 [facility] Sodium [Moles/Vol] 132 mmol/L Low 136-144 [facility] Urea nitrogen [Mass/Vol] 15 mg/dL Normal 9-24 [facility] NURSING PROGon 07-07-2021 NURSING PROG HNO ID: [id number] Author: Preethi Slater, BATOOL Service: Nursing Author Type: Registered Nurse Type: Nursing Progress Note Filed: 07/06/2021 11:25 PM Note Text: Nursing Progress Note Patient Name: Chuckie Villalta Patient [facility]-414/--414 Transfer Note: Patient transferred from East Room 426 to West Room 414 by bed in stable condition with IV fluids, IV antibiotics, and a ASSEMBLER DECK AND HULL pump with on demand fentanyl. Vital signs obtained, patient oriented to room. Call light within reach. This note was completed by: Preethi Slater RN [facility] NURSING PROG HNO ID: [id number] Author: Delilah Le RN Service: Nursing Author Type: Registered Nurse Type: Nursing Progress Note Filed: 07/06/2021 10:24 PM Note Text: Report called to room 414 Vicenta RENAE patient aware of tranfer. Belongings with patient , transferred juanpablo new room with RN in bed, vs stable. Normal [facility] Vancomycinon 07-07-2021 Vancomycin 37.3 ug/mL High 10.0-20.0 [facility] Comment on above: Result Comment: Refe rence ranges and high/low indicator flags are provided as general guidelines only. The treating physician must determine appropriate target levels/dosing based on the specific clinical situation. [facility]: [id number] Author: Mariluz Salamanca RN Service: Nursing Author Type: Registered Nurse Type: Care Mgt Initial Assessment Filed: 07/06/2021 2:04 PM Note Text: CARE MANAGEMENT: ASSESSMENT AND DISCHARGE PLAN SERVICE DATE: July 06, 2021 SERVICE TIME: 1:59 PM PRIMARY CARE PHYSICIAN: Luis Abdalla DO ADMISSION STATUS: Inpatient MEDICAL: [facility] MEDICA[facility] Health Insurance: [facility] (Replaced by [facility] Medicaid) Last Discharge Date: 02/13/20 Is this Within the Past 30 days? Advance Directive: Current Advance Directive: Health Care Power of Professional Engineer In Chart: Yes Up To Date and Valid: Yes Baseline Mental Status Prior to this Illness what was the patient's Baseline Mental Status?: Alert AND Oriented Prior to this illness, has anyone described the patient having any of the following behaviors?: Not Applicable Relationship of the informant to the patient:: Self Primary Contact: Extended Emergency Contact Information Primary Emergency Contact: Remedios Villalta Address: [address] [place] [address] Mobile Relation: Spouse Supportive Patient Contact:: Yes Contact Resources: Family;Significant Other FREEDOM OF CHOICE EXPLAINED: [place] of Choice Given: No Reason Not Given: [...] 06, 2021 TIME: 1:59 PM PAGER/CONTACT #: [phone] Normal [facility] CBC and Differentialon 07-06 Abs Baso 0.00 k/uL Normal <0.11 [facility] Abs [place] 0.64 k/uL Normal <0.87 [facility] Abs Neut 8.13 k/uL High 1.45-7.50 [facility] ANC(includeSEG+BAND) 8.13 k/uL Normal [facility] Basophils/100 WBC (Bld) 0.0 % Normal [facility] DTYPE Manual Diff Normal [facility] Eosinophils (Bld) [#/Vol] 0.09 10*3/uL Normal <0.46 [facility] Eosinophils/100 WBC (Bld) 1.0 % Normal [facility] Erythrocyte distribution width (RBC) [Ratio] 14.6 % Normal 11.5-15.0 [facility] Hematocrit (Bld) [Volume fraction] 30.9 % Low 39.0-51.0 [facility] Hemoglobin (Bld) [Mass/Vol] 11.4 g/dL Low 13.0-17.0 [facility] Left Shift Present Normal [facility] Lymphocytes (Bld) [#/Vol] 0.27 10*3/uL Low 1.00-4.00 [facility] Lymphocytes/100 WBC (Bld) 3.0 % Normal [facility] MCH 35.0 pG High 26.0-34.0 [facility] MCHC (RBC) [Mass/Vol] 36.9 g/dL High 30.5-36.0 [facility] MCV (RBC) [Entitic vol] 94.8 fL Normal 80.0-100.0 [facility] Monocytes/100 WBC (Bld) 7.0 % Normal [facility] Neutrophils/100 WBC (Bld) 89.0 % Normal [facility] Platelet Estimate Platelet estimate decreased Normal [facility] Platelet mean volume (Bld) [Entitic vol] 11.3 fL Normal 9.0-12.7 [facility] Platelets (Bld) [#/Vol] 63 10*3/uL Low 150-400 [facility] RBC (Bld) [#/Vol] 3.26 10*6/uL Low 4.20-6.00 [facility] Red Cell Morph SEE COMMENT Normal [facility] Comment on above: Result Comment: Unre markable WBC (Bld) [#/Vol] 9.13 10*3/uL Normal 3.70-11.00 [facility] CONSULTon 07-06-2021 CONSULT HNO ID: [id number] Author: Og Gibbs MD Service: Gastroenterology Author [...] and hi s transferring the [place] giving his complex medica history and the need for repeated ERCP Dr. Wilburn reviewed the case too and agreed to transfer the patient to for further care Normal [facility] CONSULT PROGon 07-06-2021 CONSULT PROG HNO ID: [id number] Author: Pearl Mann [facility] Service: Pharmacy Author Type: Pharmacist Type: Consult [...] any questions, please contact Pharmacy at ex [phone]. Age: [age] year old Allergies: ALLERGIES Allergen [...] Levels: No results found for: CHIDI Mann [facility] Normal [facility] Comp Metabolic Panelon 07-06 Albumin [Mass/Vol] 3.5 g/dL Low 3.9-4.9 [facility] ALP [Catalytic activity/Vol] 60 U/L Normal 38-113 [facility] ALT [Catalytic activity/Vol] 60 U/L High 10-54 [facility] Anion gap [Moles/Vol] 15 mmol/L Normal 9-18 [facility] AST [Catalytic activity/Vol] 361 U/L High 14-40 [facility] Bilirubin [Mass/Vol] 6.6 mg/dL High 0.2-1.3 [facility] Calcium [Mass/Vol] 7.8 mg/dL Low 8.5-10.2 [facility] Chloride [Moles/Vol] 102 mmol/L Normal 97-105 [facility] CO2 [Moles/Vol] 15 mmol/L Low 22-30 [facility] Creatinine [Mass/Vol] 1.73 mg/dL High 0.73-1.22 [facility] eGFR- Amer. 55 Normal [facility] eGFR-All Other Races 45 . Normal [facility] Comment on above: Result Comment: eGFR (Estimated [...] [email or web address]. Glucose [Mass/Vol] 129 mg/dL High 74-99 [facility] Comment on above: Result Comment: The [employer] Diabetes Association (ADA) provides guidance for cutoff [...] Standards of Medical Care in Diabetes 2016, [employer] Diabetes [employer]. Diabetes Care. 2016.39(Suppl 1). Potassium [Moles/Vol] 4.3 mmol/L Normal 3.7-5.1 [facility] Protein [Mass/Vol] 5.2 g/dL Low 6.3-8.0 [facility] Sodium [Moles/Vol] 132 mmol/L Low 136-144 [facility] Urea nitrogen [Mass/Vol] 17 mg/dL Normal 9-24 [facility] ED NOTEon 07-06-2021 ED NOTE HNO ID: [id number] Author: Marcela Corley RN Service: Nursing Author Type: Registered Nurse Type: ED Notes Filed: 07/06/2021 4:57 AM Note Text: Report to Loraine RENAE. [facility] ED NOTE HNO ID: [id number] Author: Marcela Corley RN Service: Nursing Author Type: Registered Nurse Type: ED Notes Filed: 07/06/2021 4:51 AM Note Text: Pt resting in bed at this time. Call light within reach, will continue to monitor. [facility] Expedited [id number] 07-06-20 SARS-CoV-2 (COVID-19) RNA NOLBERTO+probe Ql (Unsp spec) UPPER RESPIRATORY TRACT SWAB Normal [facility] SARS-CoV-2 (COVID-19) RNA NOLBERTO+probe Ql (Unsp spec) Negative for COVID19 (SARS CoV2) by RT-PCR or equivalent method. Normal Negative for COVID19 (SARS CoV2) by RT-PCR or equivalent method. [facility] Comment on above: Result Comment: This test has been authorized by FDA under an Emergency Use Authorization (EUA). Lipaseon 07-06-2021 Lipase [Catalytic activity/Vol] 1496 U/L High 16-61 [facility] Magnesiumon 07-06-2021 Magnesium [Mass/Vol] 1.2 mg/dL Low 1.7-2.3 [facility] NURSING PROGon 07-06-2021 NURSING PROG HNO ID: [id number] Author: Loraine Ya RN Service: Nursing Author Type: Registered Nurse Type: Nursing Progress Note Filed: 07/06/2021 6:31 AM Note Text: Nursing Progress Note Patient Name: Chuckie Villalta Patient [place] [address] [address] Transfer Note: Patient transferred into room/unit 426 in stable condition. Actions taken: Report given by Marcela RENAE. No futher actions taken at this time. Will continue to monitor and check with patient. Patient belongings with patient oriented to room, answered questions, denies needs at this time. This note was completed by: Loraine Ya Normal [facility] XR CHEST 1V FRONTAL PORTon 1 09-06-2020 [...] are detected. IMPRESSION: No acute radiographic abnormality. Sports Director: [facility] Transcribe Date/Time: Jul 05 2021 11:38P Dictated by : RIK YUN MD This examination was interpreted and the report reviewed and electronically signed by: RIK YUN MD on Jul 05 2021 11:39PM EST [id number] Normal [facility] APTTon 07-05-2021 aPTT Coag (Bld) [Time] 22.6 s Low 23.0-32.4 [facility] Comment on above: Result Comment: Unfr actionated [...] laboratory APTT reagent in use throughout the [facility]. Acetaminophenon 07-05-2021 Acetaminophen [Mass/Vol] ug/mL Low 10-30 [facility] Comment on above: Result Comment: Toxi c > 150 ug/mL 4 hours post ingestion The Ginger Akins nomogram can be used to estimate the probability of hepatotoxicity via the relationship of plasma acetaminophen concentration to the post ingestion interval. (Gareth. Pediatrics. 1975. 55:871 to 876 and Ginger et al. Arch Cad Manager Med. 1981. 141:380 to 385). Reference ranges and high/low indicator flags are provided as general guidelines only. The treating physician must determine appropriate target levels/dosing based on the specific clinical situation. Blood Cultureon 07-05-2021 Bacteria identified Cx Nom (Bld) Culture Result - No growth 5 days Normal [facility] Comment on above: Performed By: #### B LCUL ####[place] [address] [place] [phone] CBC and Differentialon 07-05 Abs Baso 0.00 k/uL Normal <0.11 [facility] Comment on above: Performed By: #### C BCDIF ####[place] [address] [place] [phone] Abs [place] 0.97 k/uL High <0.87 [facility] Comment on above: Performed By: #### C BCDIF ####[place] [address] [place] [phone] Abs Neut 28.35 k/uL High 1.45-7.50 [facility] Comment on above: Performed By: #### C BCDIF ####[place] [address] [place] [phone] Anisocytosis Ql (Bld) Present Normal [facility] Comment on above: Performed By: #### C BCDIF ####[place] [address] [place] [phone] Basophils/100 WBC (Bld) 0.0 % Normal [facility] Comment on above: Performed By: #### C BCDIF ####[place] [address] [place] [phone] DTYPE Manual Diff Normal [facility] Comment on above: Performed By: #### C BCDIF ####[place] [address] [place] [phone] Eosinophils (Bld) [#/Vol] 0.00 10*3/uL Normal <0.46 [facility] Comment on above: Performed By: #### C BCDIF ####[address] [place], [place] [phone] Eosinophils/100 WBC (Bld) 0.0 % Normal [facility] Comment on above: Performed By: #### C BCDIF ####[address] [phone] Erythrocyte distribution width (RBC) [Ratio] 15.1 % High 11.5-15.0 [facility] Comment on above: Performed By: #### C BCDIF ####[address] [phone] Hematocrit (Bld) [Volume fraction] 43.2 % Normal 39.0-51.0 [facility] Comment on above: Performed By: #### C BCDIF ####[address] [phone] Hemoglobin (Bld) [Mass/Vol] 16.2 g/dL Normal 13.0-17.0 [facility] Comment on above: Performed By: #### C BCDIF ####[address] [phone] Lymphocytes (Bld) [#/Vol] 0.00 10*3/uL Low 1.00-4.00 [facility] Comment on above: Performed By: #### C BCDIF ####[address] [phone] Lymphocytes/100 WBC (Bld) 0.0 % Normal [facility] Comment on above: Performed By: #### C BCDIF ####[address] [phone] MCH 35.1 pG High 26.0-34.0 [facility] Comment on above: Performed By: #### C BCDIF ####[address] [phone] MCHC (RBC) [Mass/Vol] 37.5 g/dL High 30.5-36.0 [facility] Comment on above: Performed By: #### C BCDIF ####[address] [phone] MCV (RBC) [Entitic vol] 93.7 fL Normal 80.0-100.0 [facility] Comment on above: Performed By: #### C BCDIF ####[address] [phone] Monocytes/100 WBC (Bld) 3.3 % Normal [facility] Comment on above: Performed By: #### C BCDIF ####[address] [phone] Neutrophils/100 WBC (Bld) 96.7 % Normal [facility] Comment on above: Performed By: #### C BCDIF ####[address] [phone] Platelet Estimate Platelet estimate adequate Normal [facility] Comment on above: Performed By: #### C BCDIF ####[address] [phone] Platelet mean volume (Bld) [Entitic vol] 11.6 fL Normal 9.0-12.7 [facility] Comment on above: Performed By: #### C BCDIF ####[address] [phone] Platelets (Bld) [#/Vol] 173 10*3/uL Normal 150-400 [facility] Comment on above: Performed By: #### C BCDIF ####[address] [phone] Polychromasia Slight Normal [facility] Comment on above: Performed By: #### C BCDIF ####[address] [phone] RBC (Bld) [#/Vol] 4.61 10*6/uL Normal 4.20-6.00 [facility] Comment on above: Performed By: #### C BCDIF ####[facility] [place], [place] [phone] WBC (Bld) [#/Vol] 29.32 10*3/uL High 3.70-11.00 [facility] Comment on above: Result Comment: Resu lt checked and verified No clot detected. Performed By: #### C BCDIF ####[facility] [address] [place], [place] [phone] CONSULT PROGon 07-05-2021 CONSULT PROG HNO ID: [id number] Author: Pearl Mann RPh Service: Pharmacy Author [...] any questions, please contact Pharmacy at ex [phone]. Age: [age] year old Allergies: ALLERGIES Allergen [...] Levels: No results found for: CHIDI Mann [facility] CT ABD/PEL WO IVCONon 2020 CT ABD/PEL WO IVCON * * *Final Report* * * DATE OF EXAM: Jul 05 2021 7:05PM [facility] 0531 - CT ABD/PEL WO [...] abnormality. Lumbosacral pars defects. Lower thorax: Unremarkable. Business Enterprise Officer (topogram) images: No additional findings. IMPRESSION: Extensive pancreatitis with inflammatory changes surrounding the transverse colon, spleen and retroperitoneum. Small volume ascites is present. Extent of pancreatic necrosis cannot be assessed on a noncontrast examination. Sports Director[facility] Transcribe Date/Time: Jul 05 2021 7:12P Dictated by : SPIKE FUNES MD This examination was interpreted and the report reviewed and electronically signed by: SPIKE FUNES MD on Jul 05 2021 7:23PM EST [id number] Normal [facility] Comp Metabolic Panelon 07-05 Albumin [Mass/Vol] 5.0 g/dL High 3.9-4.9 [facility] Comment on above: Performed By: #### C BCDIF ####[facility] [address] [place], [place] [phone] ALP [Catalytic activity/Vol] 77 U/L Normal 38-113 [facility] Comment on above: Performed By: #### C BCDIF ####[facility] [address] [place], [place] [phone] ALT [Catalytic activity/Vol] 34 U/L Normal 10-54 [facility] Comment on above: Performed By: #### C BCDIF ####[facility] [place], [place] [phone] Anion gap [Moles/Vol] 23 mmol/L High 9-18 [facility] Comment on above: Performed By: #### C BCDIF ####[place] [phone] AST [Catalytic activity/Vol] 69 U/L High 14-40 [facility] Comment on above: Performed By: #### C BCDIF ####[place] [phone] Bilirubin [Mass/Vol] 5.3 mg/dL High 0.2-1.3 [facility] Comment on above: Performed By: #### C BCDIF ####[place] [phone] Calcium [Mass/Vol] 9.5 mg/dL Normal 8.5-10.2 [facility] Comment on above: Performed By: #### C BCDIF ####[place] [phone] Chloride [Moles/Vol] 92 mmol/L Low 97-105 [facility] Comment on above: Performed By: #### C BCDIF ####[place] [phone] CO2 [Moles/Vol] 15 mmol/L Low 22-30 [facility] Comment on above: Performed By: #### C BCDIF ####[place] [phone] Creatinine [Mass/Vol] 2.53 mg/dL High 0.73-1.22 [facility] Comment on above: Performed By: #### C BCDIF ####[place] [phone] eGFR- Amer. 35 Normal [facility] Comment on above: Performed By: #### C BCDIF ####[address] [phone] eGFR-All Other Races 29 . Normal [facility] Comment on above: Result Comment: eGFR (Estimated [...] at [email or web address]. Performed By: #### C BCDIF ####[facility] [place], [place] [phone] Glucose [Mass/Vol] 167 mg/dL High 74-99 [facility] Comment on above: Result Comment: The [employer] Diabetes Association (ADA) provides guidance for cutoff [...] Standards of Medical Care in Diabetes 2016, [employer] Diabetes [employer]. Diabetes Care. 2016.39(Suppl 1). Performed By: #### C BCDIF ####[facility] [address] [place], [place] [phone] Potassium [Moles/Vol] 5.5 mmol/L High 3.7-5.1 [facility] Comment on above: Performed By: #### C BCDIF ####[facility] [address] [place], [place] [phone] Protein [Mass/Vol] 7.6 g/dL Normal 6.3-8.0 [facility] Comment on above: Performed By: #### C BCDIF ####[facility] [place], [place] [phone] Sodium [Moles/Vol] 130 mmol/L Low 136-144 [facility] Comment on above: Performed By: #### C BCDIF ####[facility] [place], [place] [phone] Urea nitrogen [Mass/Vol] 20 mg/dL Normal 9-24 [facility] Comment on above: Performed By: #### C BCDIF ####[facility] [place], [place] [phone] ED NOTEon 07-05-2021 ED NOTE HNO ID: [id number] Author: Max Styles RN Service: ? Author [...] bed in locked and low position Normal [facility] ED PROV NOTEon 07-05-2021 ED PROV NOTE HNO ID: [id number] Author: Will Mccormick DO Service: Emergency Medicine [...] mmol/L Lact (more content not included)... Normal [facility] ED Triage Noteon 07-05-2021 ED Triage Note HNO ID: [id number] Author: Brian Ash I, PA-C Service: Emergency Medicine Author Type: Physician Gas Attendant Type: ED Triage Notes Filed: 07/05/2021 6:11 [...] RUQ US SIGNATURE: Brian Ash PA-C Normal [facility] Ethanolon 07-05-2021 Ethanol [Mass/Vol] mg/dL Normal <11 [facility] Comment on above: Result Comment: Valu es > 80 mg/dL may indicate intoxication HISTORY PHYSICALon HISTORY PHYSICAL HNO ID: [id number] Author: Lisseth Raymond APRN.CNP Service: Hospital Medicine Author Type: Nurse Practitioner Type: HANDP Filed: 07/05/2021 9:37 PM Note Text: DEPARTMENT OF HOSPITAL MEDICINE HISTORY AND PHYSICAL EXAM SERVICE DATE: 07/05/2021 Code Status: Not on file SERVICE TIME: 9:27 PM Primary Care Physician: Luis Abdalla, DO NIGHT AND WEEKEND COVERAGE: [employer]UL [employer] COVERAGE: Days: [phone], please contact via [employer] Nights: [phone], please page CC Hospitalist Night coverage pager [phone] Subjective CHIEF COMPLAINT: Epigastric pain going through [...] tests revie (more content not included)... Normal [facility] Lipaseon 07-05-2021 Lipase [Catalytic activity/Vol] 2781 U/L High 16-61 [facility] Comment on above: Performed By: #### C BCDI ####[facility] [place], [place] [phone] Magnesiumon 07-05-2021 Magnesium [Mass/Vol] 0.8 mg/dL Low 1.7-2.3 [facility] Comment on above: Result Comment: No c all per procedure. 07/05/211846 Performed By: #### C BCDIF ####[facility] [address] [place], [place] [phone] Protimeon 07-05-2021 PT INR 1.3 Normal 0.9-1.3 [facility] Comment on above: Result Comment: Aster min K Antagonist (VKA) Therapeutic Range: INR 2 to 3 (Target INR of 2.5) Note: For patients treated with VKA drugs, such as warfarin, the [employer] 2012 Guideline recommends [...] 252-289 PT Sec 14.0 sec High 9.7-13.0 [facility] Triglycerideon 07-05-2021 Fasting Time Unknown Normal [facility] Triglyceride [Mass/Vol] 463 mg/dL High <150 [facility] Troponin Ton 07-05-2021 Troponin T <0.010 Normal 0.000-0.029 [facility] Kaleb 02-25-2021 L --- Specimen: [id number] Received: 02/25/21 Status: LU Wayne Num: [id number] Spec Type: Surgical Subm Dr: Josiah Pompa MD Tissues: A Disc - Intervertebral/Lumbar/C ervical (CERVICAL) Procedures: HE Stain, Gross/Micro L3 Patient Age/Sex Location Account Attending Physician Chuckie Villalta 35/M [place] [id number] Josiah Pompa MD SPEC NUM: [id number] RECD: 02/25/21 STATUS: LU WAYNE NUM: [id number] VJ: 02/25/21- [facility] DR: Josiah Pompa MD ENTERED: 02/25/21 [facility] DR: SPEC TYPE: Surgical DEPT: S ORDERED: HE Stain, [...] of montanez-pink, rubbery and ragged fibrous tissue. Fish Worm Grower sections are submitted in one cassette labeled A1. (JAYCOB/YJ) Microscopic Description One glass slide with H E stained material has been examined. The microscopic findings support the above pathologic diagnosis. CPT Codes 58049 Specimen: [id number] Received: 02/25/21 Status: LU Sathya Num: [id number] Spec Type: Surgical Subm Dr: Josiah Pompa MD Tissues: A Disc - Intervertebral/Lumbar/C ervical (CERVICAL) Procedures: HE Stain, Gross/Micro L3 Patient: Chuckie Villalta [id number] (Continued) Signed (signature on file) Lucretia Lund MD 02/26/21 1655 [facility] XR cervical spine 1Von 02-25 XR cervical spine 1V [facility] Main [address] [address] XRay Report Signed Patient: Chuckie Villalta MR#: [id number] 56 : 1985 Acct:[id number] Age/Sex: 35 / M ADM Date: 02/25/21 Loc: Room: [address] [place] [address] Type: [facility] Attending Dr: Josiah Pompa MD Ordering [...] Carlos Solano M.D.02/25/2021 4:31 PM Dictation Location: [place] [address] Transcribed By: [facility] 02/25/21 1631 Dictated By: Carlos Solano II, MD 02/25/21 1630 Signed By: 02/25/21 1631 [facility] Basic Metabolic Panelon 01-25 Calcium [Mass/Vol] 9.3 mg/dL Normal 8.2-10.2 [facility] Comment on above: Result Comment: PERF ORMED BY: [address] [address] PATHOLOGIST PASSENGER SERVICE MANAGER ALFRED TRACY M.D. Performed By: #### B MP, CBC #### [facility] [address] [place] [address] [place] Chloride [Moles/Vol] 99 mmol/L Normal 95-114 [facility] Comment on above: Performed By: #### B MP, CBC #### [facility] [address] [place] [phone] [facility] CO2 [Moles/Vol] 20.5 mmol/L Low 22.0-30.0 [facility] Comment on above: Performed By: #### B MP, CBC #### [facility] [address] Creatinine [Mass/Vol] 1.31 mg/dL High 0.64-1.27 [facility] Comment on above: Performed By: #### B MP, CBC #### [facility] [address] Estimated GFR ( Marissa > 60 [facility] Comment on above: Result Comment: GFR estimated reference range: According to KDOQI guidelines, <60 ml/min/1.73m2 is sufficient to diagnose a patient with chronic kidney disease. Performed By: #### B MP, CBC #### [facility] [address] [place] [address] [place] Estimated GFR (Non- Am > 60 [facility] Comment on above: Performed By: #### B MP, CBC #### [facility] [address] [place] [address] [place] Glucose [Mass/Vol] 105 mg/dL High 70-100 [facility] Comment on above: Result Comment: [place] Glucose Reference Range is dependent on time and content of last meal. Glucose of more than 200 mg/dL in a nonstressed, ambulatory subject supports the diagnosis of Diabetes Mellitus. ADA recommended reference range Performed By: #### B MP, CBC #### [facility] [address] [place] [address] [place] Potassium [Moles/Vol] 4.4 mmol/L Normal 3.5-5.1 [facility] Comment on above: Performed By: #### B MP, CBC #### [facility] [address] Sodium [Moles/Vol] 133 mmol/L Low 136-146 [facility] Comment on above: Performed By: #### B MP, CBC #### [facility] [address] Urea nitrogen [Mass/Vol] 11 mg/dL Normal 9-23 [facility] Comment on above: Performed By: #### B MP, CBC #### [facility] [address] COVID-19 FRon 02-21-2021 SARS-CoV-2 (COVID-19) RNA NOLBERTO+probe Ql (Unsp spec) Negative Normal Negative [facility] Comment on above: Order Comment: Healt hcare Worker?: N Result Comment: Testing for SARS-CoV-2 by RT-PCR This test was developed and its performance characteristics determined by [employer] and validated at the [facility]. This test has not been [...] is terminated or revoked sooner. PERFORMED BY: [place] [address] PATHOLOGIST PASSENGER SERVICE MANAGER ALFRED TRACY M.D. Performed By: #### C OVID 19 [facility] #### [address] Complete Blood Count Auto Di ffon 02-21-2021 Basophils (Bld) [#/Vol] 0.0 10*3/uL Normal 0.0-0.2 [facility] Comment on above: Result Comment: PERF ORMED BY: [place] [address] PATHOLOGIST PASSENGER SERVICE MANAGER ALFRED TRACY M.D. Performed By: #### B MP, CBC #### [place] [address] [place] Basophils/100 WBC (Bld) 0.5 % Normal . [facility] Comment on above: Performed By: #### B MP, CBC #### [place] [address] [place] Eosinophils (Bld) [#/Vol] 0.1 10*3/uL Normal 0.0-0.45 [facility] Comment on above: Performed By: #### B MP, CBC #### [address] Eosinophils/100 WBC (Bld) 1.2 % Normal . [facility] Comment on above: Performed By: #### B MP, CBC #### [address] Erythrocyte distribution width (RBC) [Ratio] 14.0 % Normal 12.0-14.8 [facility] Comment on above: Performed By: #### B MP, CBC #### [address] Hematocrit (Bld) [Volume fraction] 39.2 % Normal 38.8-50.0 [facility] Comment on above: Performed By: #### B MP, CBC #### [facility] [address] [place] [address] [place] Hemoglobin (Bld) [Mass/Vol] 13.9 g/dL Normal 13.0-17.0 [facility] Comment on above: Performed By: #### B MP, CBC #### [address] Lymphocytes (Bld) [#/Vol] 1.0 10*3/uL Normal 1.00-4.8 [facility] Comment on above: Performed By: #### B MP, CBC #### [facility] [address] [place] [address] [place] Lymphocytes/100 WBC (Bld) 9.5 % Normal . [facility] Comment on above: Performed By: #### B MP, CBC #### [facility] [address] MCH (RBC) [Entitic mass] 32.1 pg Normal 27.5-35.2 [facility] Comment on above: Performed By: #### B MP, CBC #### [address] MCV (RBC) [Entitic vol] 90.4 fL Normal 83.5-101 [facility] Comment on above: Performed By: #### B MP, CBC #### [address] Mean Corpuscular HGB Conc 35.5 g/dL Normal 32.5-35.6 [facility] Comment on above: Performed By: #### B MP, CBC #### [place] [address] [place] Monocytes (Bld) [#/Vol] 0.6 10*3/uL Normal 0.0-0.8 [facility] Comment on above: Performed By: #### B MP, CBC #### [place] [address] [place] Monocytes/100 WBC (Bld) 6.0 % Normal . [facility] Comment on above: Performed By: #### B MP, CBC #### [address] Neutrophils (Bld) [#/Vol] 8.8 10*3/uL High 1.8-7.7 [facility] Comment on above: Performed By: #### B MP, CBC #### [address] Neutrophils/100 WBC (Bld) 82.8 % Normal . [facility] Comment on above: Performed By: #### B MP, CBC #### [facility] [address] Nucleated RBC/100 WBC (Bld) [Ratio] 0.0 % Normal 0-0.5 [facility] Comment on above: Performed By: #### B MP, CBC #### [facility] [address] Platelet mean volume (Bld) [Entitic vol] 8.4 fL Normal 6.6-10.1 [facility] Comment on above: Performed By: #### B MP, CBC #### [facility] [address] Platelets (Bld) [#/Vol] 205 10*3/uL Normal 150-450 [facility] Comment on above: Performed By: #### B MP, CBC #### [address] RBC (Bld) [#/Vol] 4.34 10*6/uL Normal 3.90-5.60 [facility] Comment on above: Performed By: #### B MP, CBC #### [facility] [address] [place] [address] [place] WBC (Bld) [#/Vol] 10.6 10*3/uL Normal 4.5-11.0 [facility] Comment on above: Performed By: #### B MP, CBC #### [address] ECG 12 lead ECGon 02-18-2021 ECG 12 lead ECG [facility] Main [place] [address] [place] [address] Electrocardiograph Report Signed Patient: Chuckie Villalta MR#: [id number] 56 : 1985 Acct:[id number] Age/Sex: 35 / M ADM Date: 02/18/21 Loc: PS Room: Type: [facility] Attending Dr: Josiah Pompa MD Ordering [...] DO 02/18/21 1413 Signed By: 02/18/21 1610 [facility] MRI CSPINE WO CONon 12-07-19 MRI [...] by: ANGIE MCDANIEL Date: 2020-12-06 12:00 Normal [facility] Vital Signs Date Time Vital Sign Value Performing Clinician Facility 02-29-2024 13:25-0400 Body height 185.42 cm [facility] [place] 02-29-2024 13:25-0400 Body mass index (BMI) [Ratio] 29 kg/m2 [facility] 02-29-2024 13:25-0400 Body weight 99.79 kg [facility] [place] 02-29-2024 13:25-0400 Diastolic blood pressure 91 mm[Hg] [facility] 02-29-2024 13:25-0400 Heart rate 111 /min [facility] [place] 02-29-2024 13:25-0400 Respiratory rate 12 /min [facility] 02-29-2024 13:25-0400 Systolic blood pressure 161 mm[Hg] [facility] 06-20-2023 16:12-0500 Body temperature 96.98 [degF] [facility] 06-20-2023 16:12-0500 Diastolic blood pressure 85 mm[Hg] [facility] 06-20-2023 16:12-0500 Heart rate 114 /min [facility] 06-20-2023 16:12-0500 Respiratory rate 18 /min [facility] 06-20-2023 16:12-0500 SaO2% (BldA) [Mass fraction] 100 % [facility] 06-20-2023 16:12-0500 Systolic blood pressure 160 mm[Hg] [facility] 06-11-2023 10:00-0500 Body height 185.42 cm Luis Ball Other [employer] Other 06-11-2023 10:00-0500 Body mass index (BMI) [Ratio] 29.66 kg/m2 Luis Ball Other [employer] Other 06-11-2023 10:00-0500 Body weight 101.97 kg Luis Ball Other [employer] Other 06-11-2023 10:00-0500 Diastolic blood pressure 97 mm[Hg] Luis Ball Other [employer] Other 06-11-2023 10:00-0500 Respiratory rate 12 /min Luis Ball Other [employer] Other 06-11-2023 10:00-0500 Systolic blood pressure 141 mm[Hg] Ulis Ball Other [employer] Other 03-05-2023 09:45-0400 Body height 185.42 cm Luis Ball Other [employer] Other 03-05-2023 09:45-0400 Body mass index (BMI) [Ratio] 29.6 kg/m2 Luis Ball Other [employer] Design Other 03-05-2023 09:45-0400 Body weight 101.79 kg Luis Ball Other [employer] Other 03-05-2023 09:45-0400 Diastolic blood pressure 109 mm[Hg] Luis Ball Other [employer] Other 03-05-2023 09:45-0400 Systolic blood pressure 153 mm[Hg] Luis Ball Other [employer] Other 09-12-2022 10:30-0500 Body height 185.42 cm Luis Ball Other [employer] Other 09-12-2022 10:30-0500 Body mass index (BMI) [Ratio] 29.95 kg/m2 Luis Abdalla Other [employer] Other 09-12-2022 10:30-0500 Body weight 102.97 kg Luis Abdalla Other [employer] Other 09-12-2022 10:30-0500 Diastolic blood pressure 86 mm[Hg] Luis Bioniz Other [employer] Other 09-12-2022 10:30-0500 Respiratory rate 12 /min Luis Bioniz Other [employer] Other 09-12-2022 10:30-0500 Systolic blood pressure 132 mm[Hg] Luis Bioniz Other [employer] Other Encounters Encounter Date Encounter Type Care Provider Facility Start: 07-04-2024 End: 07-04-2024 ambulatory Vicente Thompson MD Facility: [facility] Start: 04-04-2024 End: 04-04-2024 ambulatory Vicente Thompson MD Facility: [facility] Start: 03-07-2024 End: 03-07-2024 ambulatory Vicente Thompson MD Facility: [facility] Start: 02-29-2024 End: 02-29-2024 ambulatory [facility] Work Phone: Start: 02-29-2024 End: 02-29-2024 Patient encounter procedure [facility] Work Phone: Start: 12-28-2023 End: 12-28-2023 ambulatory Vicente Thompson MD Facility: [facility] Start: 10-19-2023 End: 10-19-2023 ambulatory Vicente Thompson MD Facility: [facility] Start: 09-28-2023 End: 09-28-2023 ambulatory Vicente Thompson MD Facility: [facility] Start: 06-20-2023 End: 06-20-2023 Emergency department patient visit Wilmer Rosenberg Facility:[facility] Start: 06-20-2023 End: 06-20-2023 Emergency department patient visit Wilmer Rosenberg [facility] Start: 06-11-2023 End: 06-11-2023 ambulatory Luis Abdalla Other [employer] Other Start: 06-11-2023 Encounter for genera l adult medical examination without abnormal findings Luis Abdalla [facility] Start: 06-11-2023 Periodic preventive med est patient 18-39 yrs Luis Abdalla [facility] Start: 03-19-2023 End: 03-19-2023 ambulatory BETINA QUEZADA Facility:[facility] Start: 03-05-2023 End: 03-05-2023 ambulatory Luis Abdalla Other [employer] Other Start: 03-05-2023 Office outpatient vi sit 15 minutes Luis Abdalla [facility] Start: 12-11-2022 End: 12-11-2022 ambulatory BETINA QUEZADA Facility:[facility] Start: 09-22-2022 Telephone encounter Rashida Liriano RNavionics manager Comment on above: Care Coordination ([facility]) Start: 09-12-2022 End: 09-12-2022 ambulatory Luis Abdalla Other [employer] Other Start: 09-12-2022 Office outpatient vi sit 25 minutes Luis Abdalla [facility] Start: 09-04-2022 Orders Only Betina Quezada MD Work Phone: Gastroenterology Comment on above: Liver transplant rec ipient (HCC) (Primary Dx) Endoscopy Call Start: 09-04-2022 End: 09-04-2022 Evaluation and management of inpatient MINNA TUBBSADAMARISShivani Facility:[facility] Start: 08-31-2022 End: 09-05-2022 Evaluation and management of inpatient LUIS ABDALLA Facility:[facility] Start: 07-22-2022 ambulatory Nadja Spencer RN [facility] Comment on above: holiday obs erved July 28 Start: 07-22-2022 E-mail encounter bello m caregiver Nadja [facility] Start: 07-07-2022 End: 07-08-2022 ambulatory LUIS ABDALLA Facility:[facility] Start: 05-01-2022 Refill Tuyet Rivera PA-C Work Phone: H[facility]P MAIN [phone] Comment on above: Refill Request Start: 03-24-2022 Telephone encounter Nadja Gutierrez [facility] Comment on above: Reminder To Have Lab s Drawn Start: 03-11-2022 Telephone encounter Nadja Gutierrez [facility] Comment on above: Covid19 Concern Start: 02-25-2022 End: 02-25-2022 ambulatory LUIS ABDALLA Facility:[facility] Start: 02-25-2022 End: 02-25-2022 Patient encounter procedure Rosemarie Roger [facility] Comment on above: Uncomplicated alcoho l dependence (HCC) Start: 02-20-2022 End: 02-20-2022 Social Work Alessia Marie MANUFACTURING ENGINEERING INTERN [facility] Start: 12-27-2021 End: 12-27-2021 Subsequent hospital visit by physician Ct Prep Qb Radiology Start: 12-10-2021 End: 12-10-2021 ambulatory Aidan Larios MD Work Phone: Transplant Center Comment on above: Liver replaced by tr ansplant (HCC) (Primary Dx); Need for prophylactic immunotherapy Start: 12-10-2021 End: 12-10-2021 Telemedicine consultation with patient Aidan Larios MD Work Phone: [facility] Start: 11-08-2021 Telephone encounter Nadja [...] Type: BLOOD SPEC IMENOrdering Facility: [facility] Address: [address] [place] [address] [place] [address] Performed By: #### T SCR ####CC MAIN BLOOD BANKCLIA [id number] SOCORRO DOMINGO [id number] [place] [address] [place] Start: 02-24-2022 Adult depression screening assessment Rosemarie JOVELW Start: 12-27-2021 Ct abdomen w/contrast material [...] MD Work Phone: H/O: liver recipient Alonso nancy Abdalla Other Plan of Treatment Date Care Activity Detail Author Start: 07-01-2028 Urine microalbumin profile DTAP,TDAP,TD (2 - Td or Tdap) [facility] Start: 07-07-2027 LIPID SCREEN LIPID SCREEN [facility] Start: 07-16-2026 LIPID SCREEN LIPID SCREEN [facility] Start: 01-15-2024 PNEUMOCOCCAL (3 - PP SV23 if available, else PCV20) PNEUMOCOCCAL (3 - PPSV23 if available, else PCV20) [facility] Start: 01-15-2024 PNEUMOCOCCAL (3 - PP SV23 or PCV20) PNEUMOCOCCAL (3 - PPSV23 or PCV20) [facility] Start: 10-05-2023 TWO PNEUMOVAX 5 YEAR S APART PRIOR TO AGE 65 (#2) TWO PNEUMOVAX 5 YEARS APART PRIOR TO AGE 65 (#2) [facility] Start: 02-24-2023 Adult depression screening assessment DEPRESSION SCREENING [facility] Start: 12-02-2022 End: 09-04-2023 ERCP ERCP Endoscopy Routine Biliary stricture Expected: 12/02/2022, Expires: 09/04/2023 [facility] Work Phone: Comment on above: Expected: 12/02/2022 , Expires: 09/04/2023 Start: 07-27-2022 DEPRESSION ASSESSMENT DEPRESSION ASS ESSMENT [facility] Start: 03-27-2022 Influenza vaccination C [facility] Start: 12-30-2021 End: 03-01-2022 Amylase [Enzymatic activity/volume] in Serum or Plasma AMYLASE BLD Lab Routine Expected: 12/30/2021, Expires: 03/01/2022 [facility] Work Phone: Comment on above: Expected: 12/30/2021 , Expires: 03/01/2022 Start: 12-30-2021 End: 03-01-2022 Lipase [Enzymatic activity/volume] in Serum or Plasma LIPASE BLD Lab Routine Expected: 12/30/2021, Expires: 03/01/2022 [facility] Work Phone: Comment on above: Expected: 12/30/2021 , Expires: 03/01/2022 Start: 12-24-2021 End: 01-09-2023 Ct abdomen w/contrast material CT ABDOMEN W IVCON Radiology Routine Expected: 12/24/2021 (Approximate), Expires: 01/09/2023 [facility] Work Phone: Comment on above: Expected: 12/24/2021 (Approximate), Expires: 01/09/2023 Start: 07-27-2021 DEPRESSION ASSESSMENT DEPRESSION ASS ESSMENT [facility] Start: 07-10-2020 Adult depression screening assessment DEPRESSION SCREENING [facility] Start: 07-07-2020 MENINGOCOCCAL B: Consider based on risk (3 of 4 - Increased Risk Bexsero 2-dose series) MENINGOCOCCAL B: Consider based on risk (3 of 4 - Increased Risk Bexsero 2-dose series) [facility] Start: 03-11-2019 MENINGOCOCCAL CONJUG ATE (2 - Risk 2-dose series) MENINGOCOCCAL CONJUGATE (2 - Risk 2-dose series) [facility] Start: 2004 SHINGRIX VACCINE (1 of 2) SHINGRIX VACCINE (1 of 2) [facility] Start: 11-01-2003 ANNUAL PCP TEAM ASSISTANT FITNESS MANAGER BRANDON DISEASE VISIT ANNUAL PCP TEAM CHRONIC DISEASE VISIT [facility] Start: 11-01-2003 BP CONTROLLED (<130/80) BP CONTROLLE D (<130/80) [facility] Start: 1997 COVID-19 VACCINE (1) COVID-19 VACCIN E (1) [facility] Start: 1990 COVID-19 VACCINE (#1) COVID-19 VACCI NE (#1) [facility] Start: 05-02-1986 COVID-19 VACCINE (#1) COVID-19 VACCI NE (#1) [facility] Immunizations Immunization Date Immunization Notes Care Provider [facility] 04-18-2020 influenza virus vacc ine, split virus (incl. purified surface antigen) Luis Abdalla Other [employer] Other 04-18-2020 influenza virus vacc ine, unspecified formulation [facility] 07-07-2019 meningococcal B vacc ine, recombinant, OMV, adjuvanted Nadja Spencer RN [facility] 05-20-2019 hepatitis A and hepatitis B vaccine Nadja Spencer RN [facility] 05-20-2019 influenza, injectabl e, quadrivalent, contains preservative Nadja Spencer RN [facility] 01-14-2019 haemophilus influenz ae type b vaccine, PRP-OMP conjugate Nadja Spencer RN [facility] 01-14-2019 meningococcal B vacc ine, recombinant, OMV, adjuvanted Nadja Spencer RN [facility] 01-14-2019 meningococcal oligosaccharide (groups A, C, Y and W-135) diphtheria toxoid conjugate vaccine (MCV4O) Nadja Spencer RN [facility] 01-14-2019 pneumococcal conjuga te vaccine, 13 valent Nadja Spencer RN [facility] 10-04-2018 hepatitis A and hepatitis B vaccine Nadja Spencer RN [facility] 10-04-2018 pneumococcal polysaccharide vaccine, 23 valent Nadja Spencer RN [facility] 07-01-2018 hepatitis A and hepatitis B vaccine Nadja Spencer RN [facility] 07-01-2018 influenza, injectabl e, quadrivalent, contains preservative Nadja Spencer RN [facility] 07-01-2018 pneumococcal conjuga te vaccine, 13 valent Nadja Spencer RN [facility] 07-01-2018 tetanus toxoid, redu simon diphtheria toxoid, and acellular pertussis vaccine, adsorbed Nadja Spencer RN [facility] 04-30-2009 hepatitis B vaccine, adult dosage Nadja Spencer RN [facility] Payers Date Payer Category Payer Medicaid MEDICAID [facility] MEDICAID [id number] 2021-Present [phone] [address] [place] [address] Medicaid [id number] 2021 Medicaid [id number] 2021 Medicaid [id number] 2021 Medicare MEDICARE MEDICAR E A AND B [id number] 2021-Present [phone] [address] [address] [place] [address] Medicare [id number] 2021 Medicare [id number] 2021 Medicare [id number] [address] [facility] MEDICAID [facility] MEDICAID [id number] 2020-Present [phone] [address] [place] [address] Medicaid [id number] 1985 Unknown [id number] 1985 Unknown [id number] 1985 Unknown [id number] 1985 Unknown [id number] 1985 Unknown [id number] 1985 Unknown [id number] 1985 Unknown [id number] 1985 Unknown [id number] 1959 Unknown [id number] Self-pay Self Pay [id number] Social History Date Type Detail Facility Start: 05-04-2018 End: 02-29-2024 Tobacco smoking status KSIS Never smoked tobacco [facility] Start: 05-04-2018 Tobacco use and exposure Former smokeless tobacco user [facility] Start: 09-17-2021 End: 09-04-2022 Alcohol intake Current drinker of alcohol (finding) [facility] Start: 07-05-2021 History SDOH Alcohol Comment occasionally [facility] Start: 1985 Sex Assigned At Not on file [facility] Start: 10-20-2021 End: 2021 Exposure to SARS-CoV-2 (event) Not sure [facility] Sex Assigned At [facility] Tobacco smoking status No Smoking Status Entered [facility] Start: 1985 Sex Assigned At Male F [facility] Medical Equipment Procedure Code Equipment Code Equipment Origin al Text Equipment Identifier Dates Stent Axios 15mm 24mm 138mm 10.8fr Nitinol Silicone 10mm 146mm Pancreatic - [id number] Start: 11-01-2021 Stent 10fr Duode nal Bend Plastic 12cm Biliary Temporary Rapid Exchange - [id number] Start: 09-04-2022 Spinal fixation plate, non-bioabsorbable ()[id number] FDA Start: 02-25-2021 Spinal fixation plate, non-bioabsorbable ()[id number] FDA Start: 02-25-2021 Intervertebral-b josesito internal spinal fixation system ()[id number] FDA Start: 02-25-2021 Intervertebral-b josesito internal spinal fixation system ()[id number] FDA Start: 02-25-2021 Functional Status Date Assessment Result Facility 06-20-2023 Functional Status N/A [facility] Clinical Notes 07-25-2019 [...] cast on your foot. General instructions Take xmhu-aad-gdqxoci and prescription medicines only as told by [...] provider. Document Revised: 11/02/2020 Document Reviewed: 11/02/2020 [employer] Patient Education 2022 [employer]. 06/20/2023 18:04:25 Elastic Bandage and RICE Therapy [...] your activities and whether you should start ckryd-ig-byqgyt exercises for your injury. Ice Ice your [...] provider. Document Revised: 09/07/2020 Document Reviewed: 04/02/2018 [employer] Patient Education 2020 [employer] 06/20/2023 18:04:25 Ankle Sprain, Phase II [...] by your health care provider. Stretching and umbiw-qp-oddruk exercises These exercises warm up your muscles [...] provider. Document Revised: 09/05/2021 Document Reviewed: 09/05/2021 [employer] Patient Education 2022 [employer] 06/20/2023 18:04:25 Ankle Sprain, Phase I [...] by your health care provider. Stretching and bcjli-ey-hhrquh exercises These exercises warm up your muscles [...] provider. Document Revised: 09/05/2021 Document Reviewed: 09/05/2021 [employer] Patient Education 2022 [employer] 06/20/2023 18:04:25 Ankle Sprain Ankle Sprain [...] blue. Managing pain, stiffness, and swelling Take rxjo-svd-mpqwfea and prescription medicines only as told by [...] provider. Document Revised: 09/05/2021 Document Reviewed: 09/05/2021 [employer] Patient Education 2022 [employer]. Follow Up Care 06/20/2023 15:55:18 With:LUIS ABDALLA Address: [facility] [place] [address]- Business (1) When:06/23/2023 17:48:00 Comments:Follow-up with your primary care provider in 3 to 5 days. If symptoms worsen, do not improve, or new symptoms arise please report back to emergency department for further evaluation. [facility] 06-20-2023 Evaluation + Plan note Extrac edwardo from: Title:ED Note Author:Dilan Adames PA-C te:06/20/23 Left ankle sprain (S93.402A: Sprain of unspecified ligament of left ankle, initial encounter) Sprain of left foot (S93.602A: Unspecified sprain of left foot, initial encounter) Orders: Air Cast Long [facility]11-16-2023 Evaluation note* Encounter Date Diagnosis [...] CBD obstruction May, Nausea (ICD-10 - R11.0) [employer] Other 08-24-2023 NoteQ3 Patient Name: Chuckie Villalta [...] procedure well. Moderate Sedation: MAC Findings: A anode crew supervisor film of the abdomen was obtained. Surgical [...] present medications. Procedure Code(s): --- Professional --- 80997, Endoscopic retrograde cholangiopancreatography (ERCP); with removal of foreign body(s) or stent(s) from biliary/pancreatic duct(s) 95127, Endoscopic retrograde cholangiopancreatography (ERCP); with removal of calculi/debris from biliary/pancreatic duct(s) 44544, Endoscopic catheterization of the biliary ductal system, [...] Z94.4, Liver transplant status CPT copyright 2020 [employer]. All rights reserved. Attending Participation: I was present and participated during the entire procedure, including non-herr portions. Scope In: 9:20:16 AM Scope Out: 9:35:13 AM MD Betina Troncoso MD 03/19/2023 9:49:13 AM This report has been signed electronically by Betina Quezada MD Number of Addenda: 0 Note Initiated On: 03/19/2023 8:51 [facility]08-24-2023 NoteHNO ID: [id number] Author: Indu Meza RN Service: Nursing Author Type: Registered Nurse Type: Nursing Progress Note Filed: 03/19/2023 8:29 AM Note Text: VBG collected from [facility] and sent to blood gas lab per MD order. Indu [facility] Evaluation note* Encounter Date Diagnosis Assessment [...] < 140/90 and HR less than 90 [employer] Other 05-18-2023 NoteHNO ID: [id number] Author: Yun Hutchinson APRN.RELATIONSHIP MANAGEMENT LEAD Service: ? Author Type: Nurse Mixing And Dispensing Supervisor Type: Anesthesia Procedure Notes Filed: 12/11/2022 10:17 AM Note Text: ANESTHESIOLOGY PROCEDURE NOTE Airway General Information Procedure Start Time/Medication Administration: 12/11/2022 10:08 AM Patient location during procedure: OR Timeout Performed Pre-procedure: timeout performed Consent Obtained: Yes Patient identity confirmed: arm band and patient Staffing RELATIONSHIP MANAGEMENT LEAD: Yun Hutchinson APRN.RELATIONSHIP MANAGEMENT LEAD Performed by: GLORIA Indications and Patient Condition [...] 1 Airway not difficult SIGNATURE: Yun Hutchinson APRN.RELATIONSHIP MANAGEMENT LEAD PATIENT NAME: Chuckie Villalta DATE: December 11, 2022 TIME: 10:15 AM CSN: [id number]05-18-2023 NoteQ3 Patient Name: Chuckie Villalta Procedure [...] A biliary stent was visible on the anode crew supervisor film. A anode crew supervisor film of the abdomen was obtained. Surgical [...] exchange stent. Procedure Code(s): --- Professional --- 85149, Endoscopic retrograde cholangiopancreatography (ERCP); with removal and exchange of stent(s), biliary or pancreatic duct, including pre- and post-dilation and guide wire passage, when performed, including sphincterotomy, when performed, each stent exchanged 42200, 59, Endoscopic retrograde cholangiopancreatography (ERCP); with removal and exchange of stent(s), biliary or pancreatic duct, including pre- and post-dilation and guide wire passage, when performed, including sphincterotomy, when performed, each stent exchanged 78192, 59, Endoscopic retrograde cholangiopancreatography (ERCP); with trans-endoscopic balloon dilation of biliary/pancreatic duct(s) or of ampulla (sphincteroplasty), including sphincterotomy, when performed, each duct 04037, Endoscopic retrograde cholangiopancreatography (ERCP); with removal of calculi/debris from biliary/pancre (more content not included)...[facility]02-27-2023 Miscellaneous Notes* Telephone Encounter - Rashida Liriano RN - 09/22/2022 11:30 AM EST Called and left patient regarding referral to [facility]. Call back number provided. [employer] message with the details also sent. Rashida Liriano RN September 22, 2022 11:32 AM [facility] Evaluation note* Encounter Date Diagnosis Assessment Notes [...] recipient (ICD-10 - Z94.4) No s/s rejection [employer] Other 02-10-2023 NoteHNO ID: [id number] Author: Jerri Camacho MD Service: Hepatology Author [...] rejection (acute cellular rejection). Pending labs: Anti-HEV pEt Plan: - F/u percutaneous liver biopsy result [...] Camacho MD Gastroenterology AND Hepatology Fellow Pager [phone] Will d/w staff Dr. Crawford.[facility]02-09-2023 NoteHNO ID: [id number] Author: Minna Tilley MD Service: General Internal Medicine Author Type: Physician Type: Progress Notes Filed: 09/04/2022 4:09 PM Note Text: DEPARTMENT OF HOSPITAL MEDICINE PROGRESS NOTE SERVICE DATE: 09/04/2022 SERVICE TIME: 3:55 PM Hospital Medicine/Primary Attending: Minna Tilley MD NIGHT AND WEEKEND COVERAGE: [facility] COVERAGE: Days: [phone], please page Minna Tilley for patient issues. Nights: [phone], please page Team GIM 6: G/H 8th floor: [address]; Non 8th floor [address] Subjective INTERVAL HPI: No significant events overnight. [...] c/w alcoholic hepatitis with (more content not included)...[facility]02-09-2023 Miscellaneous Notes* Telephone Encounter - Betina Quezada MD - 09/04/2022 2:03 PM EST Stent change with bruna [facility]2023 NoteHNO ID: [id number] Author: Yamilet Giraldo RN Service: Nursing Author Type: Registered Nurse Type: Nursing Progress Note Filed: 09/04/2022 10:58 AM Note Text: Pt nauseous, order for 4mg zofran given per dr junior order, report called to ayana storm rn g100.[facility]02-09-2023 NoteQ3 Patient Name: Chuckie Villalta Procedure [...] procedure well. Moderate Sedation: MAC Findings: A anode crew supervisor film of the abdomen was obtained. One [...] present medications. Procedure Code(s): --- Professional --- 61581, Endoscopic retrograde cholangiopancreatography (ERCP); with placement of endoscopic stent into biliary or pancreatic duct, including pre- and post-dilation and guide wire passage, when performed, including sphincterotomy, when performed, each stent 70017, Esophagogastroduodenoscopy, flexible, transoral; with removal of foreign body(s) 08589, Endoscopic catheterization of the biliary ductal system, [...] Z94.4, Liver transplant status CPT copyright 2020 [employer]. All rights reserved. Attending Participation: I personally performed the entire procedure. Scope In: 9:12:21 AM Scope Out: 10:02:05 AM MD Betina Troncoso MD 09/04/2022 10:16:37 AM This report has been signed electronically by Betina Quezada MD Number of Addenda: 0 Note Initiated On: 09/04/2022 8:31 [facility]02-09-2023 NoteHNO ID: [id number] Author: Jerri Camacho MD Service: Hepatology Author [...] Hep delta Ab VZV IgM A1AT phenotype pEt Plan: - F/u percutaneous liver biopsy results [...] Camacho MD Gastroenterology AND Hepatology Fellow Pager [phone] Will d/w staff Dr. Crawford. Addendum 09/04/22 12:26PM: Prelim path read: No evidence of ACR or chronic rejection; no evidence of bile duct injury or portal vein injury. Changes appear to be most c/w alcoholic hepatitis with severe reactivity. [facility]02-08-2023 NoteHNO ID: [id number] Author: Minna Tilley MD Service: General Internal Medicine Author Type: Physician Type: Progress Notes Filed: 09/03/2022 2:32 PM Note Text: DEPARTMENT OF HOSPITAL MEDICINE PROGRESS NOTE SERVICE DATE: 09/03/2022 SERVICE TIME: 2:24 PM Hospital Medicine/Primary Attending: Minna Tilley MD NIGHT AND WEEKEND COVERAGE: [facility] COVERAGE: Days: [phone], please page Minna Tilley for patient issues. Nights: [phone], please page Team GIM 6: G/H 8th floor: [address]; Non 8th floor [address] Subjective INTERVAL HPI: No significant events overnight. [...] needed Leukocytosis, resolved Se (more content not included)...[facility]02-08-2023 NoteHNO ID: [id number] Author: Jerri Camacho MD Service: Hepatology Author [...] Camacho MD Gastroenterology AND Hepatology Fellow Pager [phone] D/w staff Dr. Crawford.[facility]02-07-2023 NoteHNO ID: [id number] Author: Minna Tilley MD Service: General Internal Medicine Author Type: Physician Type: Progress Notes Filed: 09/02/2022 2:24 PM Note Text: DEPARTMENT OF HOSPITAL MEDICINE PROGRESS NOTE SERVICE DATE: 09/02/2022 SERVICE TIME: 2:10 PM Hospital Medicine/Primary Attending: Minna Tilley MD NIGHT AND WEEKEND COVERAGE: [facility] COVERAGE: Days: [phone], please page Minna Tilley for patient issues. Nights: [phone], please page Team GIM 6: G/H 8th floor: [address]8590; Non 8th floor [phone] Subjective INTERVAL HPI: No significant events overnight. [...] Sepsis ruled out Lactic (more content not included)...[facility]02-06-2023 Note HNO ID: [id number] Author: Minna Tilley MD Service: General Internal Medicine Author Type: Physician Type: Progress Notes Filed: 09/01/2022 2:25 PM Note Text: DEPARTMENT OF HOSPITAL MEDICINE PROGRESS NOTE SERVICE DATE: 09/01/2022 SERVICE TIME: 1:58 PM Hospital Medicine/Primary Attending: Minna Tilley MD NIGHT AND WEEKEND COVERAGE: [facility] COVERAGE: Days: [phone], please page Minna Tilley for patient issues. Nights: [phone], please page Team GIM 6: G/H 8th floor: 54794; Non 8th floor [address] Subjective INTERVAL HPI: No significant events overnight. [...] (BACTRIM DS,SEPTRA DS) 1 tablet ORAL -- pantoprazole 40 mg injection (PROTONIX) 40 mg [...] -Follow blood cultures -U (more content not included)...[facility]02-06-2023 NoteHNO ID: [id number] Author: RT Leonora(R) Service: ? Author Type: [...] BY: RT Leonora(R) September 01, 2022 12:56 [facility]10-07-2022 Miscellaneous Notes* Telephone Encounter - Nadja Spencer [...] approved, please e-script the attached order to [facility]. Thank you, Lorena Adames [facility] [phone] documented in this encounterK[facility]08-29-2022 Miscellaneous Notes* Telephone Encounter - Nadja Spencer RN - 03/24/2022 1:17 PM EDT I sent patient a reminder to have lab work drawn as soon as possible as he has not had labs drawn in some time. Encouraged him to reach out with questions. Nadja Spencer RN (Cassie), BSN Liver Getterer documented in this encounterK[facility]08-16-2022 Miscellaneous Notes* Telephone Encounter - Nadja Spencer [...] to. Nadja Spencer RN (Cassie), BSN Liver Getterer documented in this encounterKettering [facility]08-02-2022 NoteHNO ID: [id number] Author: SHAQ Chua Service: ? Author Type: Environmental Technology Professor Type: Progress Notes Filed: 02/25/2022 10:46 AM Note Text: [facility] Assessment Visit Type:Virtual Visit utilizing two-way audio and video for at least a portion of the visit IDENTIFYING INFORMATION: [phone] [email or web address] Lives with of nine years, Екатерина and [...] consented to virtual evaluation. Patient and this race and sports book writer present during interview. PRECIPITATING PROBLEM(S):Patient was dx with liver disease in 2017. Completed an IOP at [facility] in summer 2018, and received liver transplant [...] Age 16, every other weekend. Went to [email or web address] for college drank heavily on weekends, then [...] from its effects? Yes (more content not included)...[facility]Eibkw[facility]sw[facility]-9248 History of Present illness Narrative* SHAQ Chua - 02/25/2022 9:21 AM EDT [facility] Assessment Visit Type:Virtual Visit utilizing two-way audio and video for at least a portion of the visit IDENTIFYING INFORMATION: [phone] Lives with of nine years, Екатерина andone daughter age five Duration of Interview: start time 9:15 and end time 10:30 pm REFERRAL SOURCE: SHAQ Jaimes liver transplant team BENEFITS: Payor: MEDICARE / Plan: MEDICARE A AND B / Product Type: Medicare / INFORMED CONSENT: Patient completed evaluation via virtual MyChart encounter due to COVID-19. Patient verbally consented to virtual evaluation. Patient and this race and sports book writer present during interview. PRECIPITATING PROBLEM(S):Patient was dx with liver disease in 2017. Completed an IOP at [facility] in summer 2018, and received liver transplant [...] Age 16, every other weekend. Went to [email or web address] for college drank heavily on weekends, then [...] MEDICATIONS: none PRIOR CHEMICAL DEPENDENCY TREAT[facility]: [facility] TW[facility]VE STEP H[facility]ORY: -Longest [...] None FAMILY/DEVELOPMENTAL HISTORY: -Born/Raised in (City, State): [place], [place]. Grew up on a farm Biological [...] aptitudes, and skills andto formulate immediate and mcc vocational goals? No MARITAL HISTORY: Екатерина -Children: [...] camping, campfires SPIRITUAL ASSESSMENT: -Raised in this Adventist Background: Yazdanism Current Spiritual/Adventist Practices: yes -Belief in a Higher Power: [...] things - anyone or anything (e.g., family, alevism, pain of ) - that stopped you [...] suicide or other suicidal behavior. From The [employer] Practice Guidelines for the Assessment [...] meaningful daily activities: Yes Currently Employed: Yes Adventist affiliation (See spiritual assessment section above) Therapeutic [place]: Does pt believe treatment can help his/her [...] the date of the service which included cmto-sm-zimv patient care and completing clinical documentation. 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 DEONDRE and patient discussed treatment options. Patient states he went through IOP at [facility] and did not have a good experience. SW recommended [facility] to patient and he is agreeable to trying this program. SW provided contact info and also emailed Jaquelin with this referral. Patient states he will also continue to go to his weekly home groupAA session every Thur at 8pm in [facility]. SW encouraged clt to reach out with any further questions or concerns. LAURA Jaimes Liver Transplant Social Work documented in this encounterKettering [facility]07-28-2022 History of Present illness Narrative* SHAQ Jaimes - 02/20/2022 10:05 AM EDT Patient scheduled for virtual follow up visit with SW today at 1pm. Patient left 2 messages via Nabto cancelling appointment due to time conflict. LAURA Jaimes Liver Transplant Social Work documented in this encounterK[facility]06-03-2022 History of Present illness Narrative* FLORENTINO Jaimes) [...] 12:54 PM documented in this encounterKettering [facility]05-23-2022 History of Present illness Narrative* Aidan Larios [...] IS. I spent more than 20 minutes qyli-xl-eikm with the patient and over half the time was devoted to counseling and/or coordination of care. Aidan Larios MD documented in this encounterKettering [facility]04-15-2022 Miscellaneous Notes* Telephone Encounter - Nadja Spencer RN - 11/08/2021 3:18 PM EDT Patient returned my text and said that he will be unavailable on 11/12, as he and his family just arrived at [place]. He will be available for virtual visit on 11/19. I notified scheduling. Nadja Spencer (Cassie) RN, BSN Liver Getterer * Telephone Encounter - Nadja Spencer RN - 11/08/2021 2:23 PM EDT I called and LMOM and sent patient a text to follow up with him from [facility]. I let him know that I'd be setting him up for a follow up virtual visit with Dr. Larios. Encouraged him to call back with questions or as needed. Nadja Spencer (Cassie) RN, BSN Liver Getterer documented in this encounterKettering Health [facility]12-17-2021 NoteHNO ID: [id number] Author: Saba Hills MD Service: Hospital Medicine Author Type: Physician Type: Plan of Care Filed: 07/12/2021 9:21 AM Note Text: # Acute Pancreatitis- in setting of biliary stenosis. Resolved. Last amylase was 59 Per recommendation of GI we initially plan to transfer to [facility] for ERCP but that was later [...] Vision MRI was negative Will discuss with study coordinator We will also consult ID ? Need to look for CMV retinitis Saba Hills MD ?[facility] HealthcareXnmjuuyx99-42-4664 NoteHNO ID: [id number] Author: Maninder Aguilera DO Service: Hospital Medicine Author Type: Physician Type: Progress Notes Filed: 07/11/2021 10:58 AM Note Text: DEPARTMENT OF HOSPITAL MEDICINE PROGRESS NOTE SERVICE DATE: 07/11/2021 SERVICE TIME: 10:15 AM Hospital Medicine/Primary Attending: Maninder Aguilera DO NIGHT AND WEEKEND COVERAGE: ERICK COVERAGE: Days: [phone], please contact via [employer] Nights: [phone], please page CC Hospitalist Night coverage pager [phone] Subjective INTERVAL HPI: pt seen at bedside. [...] VTE Prophylaxis/Anticoagulants 07/09/21 1245 pneumatic compression stockings (ny,oh) VTE Prophylaxis: VTE prophylaxis appropriate Disposition: Home Plan of care discussed with Provider, RN, Patient SIGNATURE: Maninder Aguilera DO PATIENT NAME: Chuckie Villalta DATE: July 11, 2021 TIME: 10:15 [facility] HospitalFwjqjnkv76-82-0652 NoteHNO ID: [id number] Author: Saba Hills MD Service: Hospital Medicine Author Type: Physician Type: Progress Notes Filed: 07/11/2021 5:13 AM Note Text: HOSPITAL MEDICINE PROGRESS NOTE Saba Hills MD NIGHT AND WEEKEND COVERAGE: ERICK COVERAGE: Days: [phone], please contact via [employer] Nights: [phone], please page CC Hospitalist Night coverage pager [phone] Subjective HPI: Interval Events: has pain abdomen [...] sounds + EXTREMITY: : No ankle edema. INTERVENTIONAL RADIOLOGY TECH: grossly normal. No focal deficit. Lines, Drains, [...] and GI GI is planning ERCP at [facility] as outpatient 2. History of hemochromatosis [...] 7:30 AM and 4:30 PM Chuckie Villalta HealthcareAxxckqol28-69-8510 NoteHNO ID: [id number] Author: Jolynn Jaquez MD Service: Hospital Medicine Author Type: Physician Type: Progress Notes Filed: 07/09/2021 6:55 PM Note Text: HOSPITAL MEDICINE PROGRESS NOTE NIGHT AND WEEKEND COVERAGE: ERICK COVERAGE: Days: [phone], please contact via [employer] Nights: [phone], please page CC Hospitalist Night coverage pager [phone] Hospital Medicine/Primary Attending: Jolynn Jaquez MD Subjective [...] sounds + EXTREMITY: : No ankle edema. INTERVENTIONAL RADIOLOGY TECH: grossly normal. No focal deficit. Lines, Drains, [...] leucocytosis initially, was started on antibiotics. johana Rice, flagyl. GI consulted. Leucocytosis resolved (also, improving thrombocytopenia ). LFTs improved. Afebrile. No growth on blood cultures so far. USG right upper quadrant done to r/o obstruction. Advance diet today to full liquid, advance tomorrow as tolerated. Appreciate Pain management input. Discussed with GI regarding scheduling of ERCP outpatient. Patient to be scheduled at [facility]. Consider starting heparin subq for prophylaxis tomorrow [...] showed no acute process. Discussed with Neuro quality control director. Plan to follow up outpatient with Neuro, and consider outpatient MRI brain with contrast if needed. ? Medication and Non-Pharmacologic VTE Prophylaxis/Anticoagulants 07/09/21 1245 pneumatic compression stockings (ny,oh) VTE Prophylaxis: VTE prophylaxis appropriate. Advised to ambulate as tolerated. Plan of care discussed with: Patient, Family/Significant Other: at bedside, RN and Consultants: Neurology, Nephro, GI SIGNATURE: Jolynn Jaquez MD PATIENT NAME: Chuckie Villalta DATE: July 09, 2021 TIME: 4:[address] [facility] CenterMsfriubi23-51-3909 NoteHNO ID: [id number] Author: Tani Woodward MD, PhD Service: Neurology [...] Woodward MD, PhD July 09, 2021 3:[address] [facility] CenterFfzsfzhv38-92-2176 NoteHNO ID: [id number] Author: Isa San RDMS, RVT Service: Radiology Author Type: Typewriter Ribbon Winder Type: Progress Notes Filed: 07/08/2021 12:04 PM [...] San RDMS, ARLENE July 08, 2021 12:[address] [facility] CenterTwpjlojz90-14-6978 NoteHNO ID: [id number] Author: Jolynn Jaquez MD Service: Hospital Medicine Author Type: Physician Type: Progress Notes Filed: 07/08/2021 11:56 AM Note Text: HOSPITAL MEDICINE PROGRESS NOTE NIGHT AND WEEKEND COVERAGE: ERICK COVERAGE: Days: [phone], please contact via [employer] Nights: [phone], please page CC Hospitalist Night coverage pager [phone] Hospital Medicine/Primary Attending: Jolynn Jaquez MD Subjective [...] tenderness in EXTREMITY: : No ankle edema. INTERVENTIONAL RADIOLOGY TECH: grossly normal. No focal deficit. Cranial nerves [...] is still waiting to be transferred to [facility]). Pain management consult. YOAN on CKD In [...] Villalta DATE: July 08, 2021 TIME: 11:30 [facility] HospitalEqnkwdzr27-01-7181 NoteHNO ID: [id number] Author: Jolynn Jaquez MD Service: Hospital Medicine Author Type: Physician Type: Progress Notes Filed: 07/07/2021 3:10 PM Note Text: HOSPITAL MEDICINE PROGRESS NOTE NIGHT AND WEEKEND COVERAGE: ERICK COVERAGE: Days: [phone], please contact via [employer] Nights: [phone], please page CC Hospitalist Night coverage pager [phone] Hospital Medicine/Primary Attending: Jolynn Jaquez MD Subjective HPI: Interval Events: ASSEMBLER DECK AND HULL and prn dilaudid helping with pain abdomen. [...] minimal palpation EXTREMITY: : No ankle edema INTERVENTIONAL RADIOLOGY TECH: grossly normal. No focal deficit. Lines, Drains, and Airways Line Peripheral 07/05/21 1811 Right Antecubital 20 Gauge 1 day Peripheral 07/05/21 1923 Short Left Antecubital 20 Gauge 1 day Reviewed lines and needs to be continued: REASONS: Intravenous fluids Medications: Reviewed Diagnostic tests reviewed: Most recent imaging Most recent labs Assessment AND Plan Active Hospital Problems as of 07/07/2021 Noted - Resolved [facility] * (Principal) Acute pancreatitis 07/05/2021 - Present [...] input Patient waiting to be transferred to [facility]. Likely needs ERCP. Pain control with fentanyl ASSEMBLER DECK AND HULL, dilaudid prn Close monitoring ? Hemochromatosis 03/18/2018 [...] to get update regarding bed availability at [facility]. No bed assigned at [facility] yet. SIGNATURE: Jolynn Jaquez MD PATIENT NAME: Chuckie Villalta DATE: July 07, 2021 TIME: 2:[address] [facility] CenterXwaccmyj98-35-6805 NoteHNO ID: [id number] Author: Roma Horan MD Service: Hospital Medicine Author Type: Physician Type: Progress Notes Filed: 07/06/2021 12:47 PM Note Text: DEPARTMENT OF HOSPITAL MEDICINE PROGRESS NOTE SERVICE DATE: 07/06/2021 SERVICE TIME: 12:43 PM Hospital Medicine/Primary Attending: Roma Horan MD NIGHT AND WEEKEND COVERAGE: PAUL SMITHS COVERAGE: Days: [phone], please contact via [employer] Nights: [phone], please page CC Hospitalist Night coverage pager [phone] Subjective INTERVAL HPI: c/o 8/10 abdominal pain. [...] INTRAVENOUS q 6 H PRN - fentaNYL ASSEMBLER DECK AND HULL 20 mcg/mL in NaCl 0.9% 100 mL [...] a noncontrast examination - Patient accepted to [facility] when bed available - IV fluids, NPO except meds - symptom management - Vanco, cipro, flagyl started in ED--c/w same for now. Leukocytosis resolved today -improving lipase - Consult GI, pending [facility] transfer, appreciate recs. May need ERCP [...] recipient (HCC) Assessment AND Plan: seen at [facility], admits some noncompliance with medications as of late, and rare alcohol use - transfer to [facility] for continued care when able - continue prograf. Will hold Actigall while NPO ? Primary hypertension Assessment AND Plan: elevated in ED, likely due to pain and missed doses - resume po antihypertensives as able - manage pain as able Medication and Non-Pharmacologic VTE Prophylaxis/Anticoagulants VTE Prophylaxis: VTE prophylaxis appr (more content not included)...[facility] HealthcareBsufrucn52-47-7838 NoteHNO ID: [id number] Author: Interface Note Service: ? Author Type: ? Type: Progress Notes Filed: 07/06/2021 2:53 AM Note Text: Epic Scheduled Downtime: 07/06/2021 1:00:00 AM to 07/06/2021 2:38:59 [facility] HospitalKblspcbb43-80-8319 NoteHNO ID: [id number] Author: Lisseth Raymond APRN.[facility] Service: Hospital Medicine Author Type: Nurse Practitioner Type: Plan of Care Filed: 07/05/2021 11:59 PM Note Text: Patient's pain not being controlled with prn dilaudid. Per Up to Date, ASSEMBLER DECK AND HULL recommended and fentanyl the safest drug to use for this purpose I discussed case with Dr Shook, I also discussed with the NOM and the pharmacist. A ASSEMBLER DECK AND HULL pump ordered. Lisseth Raymond APRN.[facility] HospitalFezfyaib18-60-0574 NoteHNO ID: [id number] Author: RT Alok(R) Service: ? Author Type: [...] BY: RT Alok(R) July 05, 2021 11:[address] [facility] CenterIjeslxcx37-46-8358 NoteHNO ID: [id number] Author: RT Devorah(R) Service: Radiology Author Type: [...] Soila Parker, RT(R) July 05, 2021 7:[address] [facility] CenterEkrwmwax30-09-1791 History of Past illness Narrative* Problem Noted [...] encounter (statuses as of 11/08/2021) [facility] History of Past illness Narrative* Problem Noted [...] encounter (statuses as of 12/16/2021) [facility] History of Past illness Narrative* Problem Noted [...] encounter (statuses as of 12/28/2021) [facility] History of Past illness Narrative* Problem Noted [...] encounter (statuses as of 12/28/2021) [facility] of Past illness Narrative* Problem Noted [...] encounter (statuses as of 02/20/2022) [facility] of Past illness Narrative* Problem Noted [...] encounter (statuses as of 02/25/2022) [facility] of [facility] illness Narrative* Problem Noted [...] encounter (statuses as of 03/11/2022) [facility] of Past illness Narrative* Problem Noted [...] encounter (statuses as of 03/24/2022) [facility] of [facility] illness Narrative* Problem Noted [...] encounter (statuses as of 05/05/2022) [facility] of Past illness Narrative* Problem Noted [...] encounter (statuses as of 07/28/2022) [facility] of Past illness Narrative* Problem Noted [...] encounter (statuses as of 09/04/2022) [facility] of Past illness Narrative* Problem Noted [...] encounter (statuses as of 09/04/2022) [facility] of Past illness Narrative* Problem Noted [...] of this encounter (statuses as of 09/22/2022) [facility] note* Diagnosis Liver replaced by transplant (HCC)- Primary Liver replaced by transplant documented in this encounter [facility] note* Diagnosis Liver replaced by transplant (HCC)- Primary Liver replaced by transplant Need for prophylactic immunotherapy documented in this encounter [facility] note* Diagnosis Uncomplicated alcohol dependence (HCC) Other and unspecified alcohol dependence, unspecified drinking behavior documented in this encounter [facility] note* Diagnosis Liver transplant recipient (HCC)- Primary documented in this encounter [facility] note* Diagnosis 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 documented in this encounter [facility] noteNo assessment information availablePomerene Hospital Work Phone: Hisjuwy general Narrative - Reported* Type Description Date [...] History COLONOSCOPY 2019 Hospitalization History See Above [employer] Other Hisqjzl general Narrative - Reported* Type Description Date [...] stent replaced 11/2022 Hospitalization History See Above [employer] Other History general Narrative - Reported* Type [...] History ERCP 02/2023 Hospitalization History See Above [employer] Other Hospital course Narrative No data available for this section [facility] No data available for this section [facility] HospitalReason for referral (narrative)* Outpatient Procedure (Routine) - Pending Review Specialty Diagnoses / Procedures Referred By Vale lopez Referred To Contact [facility] Diagnoses Biliary stricture Procedures ERCP ERCP DX COLLECTION SPECIMEN BRUSHING/WASHING Betina Quezada MD [address] [place] [address] [facility] [address] [place] [id number] Referral ID Status Reason Start Date Expiration Date Visits Requested Visits Authorized [id number] Pending Review Auto-Generat ed Referral 12/02/2022 09/04/2023 1 1 [facility] Summary Purpose Family History No Family History Records Found Relationship Condition Age at Onset Recorded Date/T sowmya father Malignant neoplasm of colon Unknown Hypertension Unknown mother Hypertension Unknown Myocardial infarction Unknown brother Epilepsy Unknown Advance Directives No Advanced Directives Records FoundDocuments on File Type Date Recorded Patient Fish Worm Grower Expl anation Advance Directive(s) 10/30/2021 12:47 PM Advance Directive(s) 07/05/2021 6:47 PM Advance Directive(s) 07/16/2020 12:03 PM Advance Directive(s) 05/02/2020 10:37 AM Advance Directive(s) 07/10/2019 5:35 PM Advance Directive(s) 01/21/2019 3:11 PM Advance Directive(s) 10/06/2018 10:21 AM Advance Directive(s) 07/13/2018 6:11 AM Documents on File Type Date Recorded Patient Fish Worm Grower Expl anation Advance Directive(s) 10/30/2021 12:47 PM Advance Directive(s) 07/05/2021 6:47 PM Advance Directive(s) 07/16/2020 12:03 PM Advance Directive(s) 05/02/2020 10:37 AM Advance Directive(s) 07/10/2019 5:35 PM Advance Directive(s) 01/21/2019 3:11 PM Advance Directive(s) 10/06/2018 10:21 AM Advance Directive(s) 07/13/2018 6:11 AM Documents on File Type Date Recorded Patient Fish Worm Grower Expl anation Advance Directive(s) 10/06/2018 10:21 AM Latest Code Status on File Code Status Date Activated Date Inactivated Comments Full Code 09/01/2022 12:05 AM Full Code Order Discussed With: Patient Documents on File Type Date Recorded Patient Fish Worm Grower Expl anation Advance Directive(s) 10/06/2018 10:21 AM [...] IVCON CT ABDOMEN W/CONTRAST Aidan Larios MD [address] [place] [address] Ct Imaging Referral ID Status Reason Start Date Expiration Date Visits Requested Visits Authorized [id number] Pending Review Auto-Generat ed Referral 12/24/2021 01/09/2023 1 1 Referral ID Status Reason Start Date Expiration Date V isits Requested Visits Authorized [id number] Closed Auto-Generated Referral Patient Cleared - INN [...] and content) DATE CREATED AUTHOR 12/20/2020 [facility] DATE CREATED AUTHOR AUTHOR'S ORGANIZ ATION 07/13/2021 [facility] DATE CREATED AUTHOR AUTHOR'S ORGANIZ ATION 08/18/2021 [facility] DATE CREATED AUTHOR AUTHOR'S ORGANIZ ATION 11/09/2022 [facility] DATE CREATED AUTHOR AUTHOR'S ORGANIZ ATION 03/20/2023 [facility] DATE CREATED AUTHOR AUTHOR'S ORGANIZ ATION 06/28/2023 [facility] DATE CREATED AUTHOR AUTHOR'S ORGANIZ ATION 07/18/2024 [facility] Source Comments (unrecognize d section and content) In the event this informatio n is protected by the Federal Confidentiality of Alcohol and Drug Abuse Patient Records regulations: The Federal rules restrict any use of the information to criminally investigate or prosecute any alcohol or drug abuse patient.[facility]In the event this information is protected by the Federal Confidentiality of Alcohol and Drug Abuse Patient Records regulations: The Federal rules restrict any use of the information to criminally investigate or prosecute any alcohol or drug abuse patient.[facility] SpringfieldIn the event this information is protected by the Federal Confidentiality of Alcohol and Drug Abuse Patient Records regulations: The Federal rules restrict any use of the information to criminally investigate or prosecute any alcohol or drug abuse patient.[facility]In the event this information is protected by the Federal Confidentiality of Alcohol and Drug Abuse Patient Records regulations: The Federal rules restrict any use of the information to criminally investigate or prosecute any alcohol or drug abuse patient.[facility] SpringfieldIn the event this information is protected by the Federal Confidentiality of Alcohol and Drug Abuse Patient Records regulations: The Federal rules restrict any use of the information to criminally investigate or prosecute any alcohol or drug abuse patient.[facility] SpringfieldIn the event this information is protected by the Federal Confidentiality of Alcohol and Drug Abuse Patient Records regulations: The Federal rules restrict any use of the information to criminally investigate or prosecute any alcohol or drug abuse patient.[facility] SpringfieldIn the event this information is protected by the Federal Confidentiality of Alcohol and Drug Abuse Patient Records regulations: The Federal rules restrict any use of the information to criminally investigate or prosecute any alcohol or drug abuse patient.[facility] SpringfieldIn the event this information is protected by the Federal Confidentiality of Alcohol and Drug Abuse Patient Records regulations: The Federal rules restrict any use of the information to criminally investigate or prosecute any alcohol or drug abuse patient.[facility] SpringfieldIn the event this information is protected by the Federal Confidentiality of Alcohol and Drug Abuse Patient Records regulations: The Federal rules restrict any use of the information to criminally investigate or prosecute any alcohol or drug abuse patient.[facility] SpringfieldIn the event this information is protected by the Federal Confidentiality of Alcohol and Drug Abuse Patient Records regulations: The Federal rules restrict any use of the information to criminally investigate or prosecute any alcohol or drug abuse patient.[facility] SpringfieldIn the event this information is protected by the Federal Confidentiality of Alcohol and Drug Abuse Patient Records regulations: The Federal rules restrict any use of the information to criminally investigate or prosecute any alcohol or drug abuse patient.[facility] SpringfieldIn the event this information is protected by the Federal Confidentiality of Alcohol and Drug Abuse Patient Records regulations: The Federal rules restrict any use of the information to criminally investigate or prosecute any alcohol or drug abuse patient.[facility] SpringfieldIn the event this information is protected by the Federal Confidentiality of Alcohol and Drug Abuse Patient Records regulations: The Federal rules restrict any use of the information to criminally investigate or prosecute any alcohol or drug abuse patient.[facility] SpringfieldIn the event this information is protected by the Federal Confidentiality of Alcohol and Drug Abuse Patient Records regulations: The Federal rules restrict any use of the information to criminally investigate or prosecute any alcohol or drug abuse patient.[facility] Reason for Visit (unrecogniz ed section and content) Reason Comments Radiology CT Specialty Diagnoses / Procedures Referred By Contac t Referred To Contact CT IMAGING Diagnoses Alcohol-induced acute pancreatitis, unspecified complication status Procedures CT ABDOMEN W IVCON CT ABDOMEN W/CONTRAST Aidan Larios MD [address] [place] [address] Ct Imaging Referral ID Status Reason Start Date Expiration Date V isits Requested Visits Authorized [id number] Closed Auto-Generated Referral Patient Cleared - INN Insurance Found 12/24/2021 01/09/2023 1 1 Reason Comments Hospital Follow Up Reason Comments Established Patient Reason Comments Covid19 Concern Reason Comments Reminder To Have Labs Drawn Reason Comments Refill Request Reason Comments Endoscopy Call Reason Comments Care Coordination [facility] clinic Care Teams (unrecognized sec tion and content) Automotive Technician Relationship Specialty Start Date End Date Luis Abdalla, DO [address] [place] [address] PCP - General Internal Medicine 01/12/18 Angie Fernandes Jr. [address] [address] Referring Gastroenterology 01/12/[address] [facility] [address] [place] [address] Transplant Center 08/31/19 Automotive Technician Relationship Specialty Start Date End Date Luis Abdalla, DO [address] [place] [address] PCP - General Internal Medicine 01/12/18 Angie Fernandes Jr. [address] [address] Referring Gastroenterology 01/12/[address] [facility] [address] [place] [address] Transplant Center 08/31/19 Automotive Technician Relationship Specialty Start Date End Date Luis Abdalla, DO [address] [facility] [place] [address] PCP - General Internal Medicine 01/12/18 Angie Fernandes Jr. [address] [address] Referring Gastroenterology 01/12/[address] [facility] [address] [place] [address] Transplant Center 08/31/19 Automotive Technician Relationship Specialty Start Date End Date Luis Abdalla, DO [address] [place] [address] PCP - General Internal Medicine 01/12/18 Angie Fernandes Jr. [address] [address] Referring Gastroenterology 01/12/18 Nadja Spencer, [facility] [address] [place] [address] Transplant Center 08/31/19 Automotive Technician Relationship Specialty Start Date End Date Luis Abdalla, DO [address] [place] [address] PCP - General Internal Medicine 01/12/18 Angie Fernandes Jr. [address] [address] Referring Gastroenterology 01/12/18 Nadja Spencer, [facility] [address] [place] [address] Transplant Center 08/31/19 Automotive Technician Relationship Specialty Start Date End Date Luis Abdalla, DO [address] [place] [address] PCP - General Internal Medicine 01/12/18 Angie Fernandes Jr. [address] [address] Referring Gastroenterology 01/12/18 Nadja Spencer, [facility] [address] [place] [address] Transplant Center 08/31/19 Automotive Technician Relationship Specialty Start Date End Date Luis Abdalla, DO [address] [facility] [place] [address] PCP - General Internal Medicine 01/12/18 Angie Fernandes Jr., DO [address] [address] Referring Gastroenterology 01/12/[address] [facility] [address] [place] [address] Transplant Center 08/31/19 Automotive Technician Relationship Specialty Start Date End Date Luis Abdalla, DO [address] [facility] [place] [address] PCP - General Internal Medicine 01/12/18 Angie Fernandes Jr., DO [address] [address] Referring Gastroenterology 01/12/[address] [facility] [address] [place] [address] Transplant Center 08/31/19 Automotive Technician Relationship Specialty Start Date End Date Luis Abdalla, DO [address] [facility] [place] [address] PCP - General Internal Medicine 01/12/18 Angie Fernandes Jr., DO [address] [address] Referring Gastroenterology 01/12/[address] [facility] [address] [place] [address] Transplant Center 08/31/19 Automotive Technician Relationship Specialty Start Date End Date Luis bAdalla, DO [address] [place] [address] PCP - General Internal Medicine 01/12/18 Angie Fernandes Jr., DO [address] [facility] [address] [place] [address] Referring Gastroenterology 01/12/18 Nadja Spencer, RN [facility] [address] [place] [address] Transplant Center 08/31/19 Team Status: Active Member [...] BE BASED ON THE PRIMARY CLINICAL RECORDS. [employer] [facility]. provides no warranty or guarantee of the accuracy or completeness of information in this document.
[2024-08-20 13:41] VITALS: O2SAT 97
--- NOTE | 2024-08-20 14:13 | ED.GENADUL1 ---
HPI HPI - General Adult General Chief complaint: Back Pain/Injury Stated complaint: BACK PAIN Time Seen by Provider: 08/20/24 13:35 Source: patient Mode of arrival: walk-in Limitations: no limitations History of Present Illness HPI narrative: A few days ago, the patient woke with pain to the left mid back especially from the scapula to the left flank. He says it is worse with deep breath, movement of the torso, movement of the neck and left upper extremity as well as walking. Twisting is nearly impossible due to the severity of the pain. No success after taking a muscle relaxer today and Tylenol and ibuprofen yesterday. No history of deep venous thrombosis or pulmonary embolism. He has a resting tachycardia. He says his heart rate is typically fast but not that fast . No recent travel. No pain behind the knee or in either calf. No shortness of breath or chest pain. He does not recall a particular injury. He has never had anything like this. He has previous neck fusion but denies that this is radiating from the neck. He describes the pain as moderate to severe at rest with severe pain that is sharp and stabbing, almost like something catching , with certain movements and activities. Related Data Home Medications ?Medication ?Instructions ?Recorded ?Confirmed amlodipine 10 mg tablet 10 mg PO DAILY 09/28/23 08/20/24 carvedilol 12.5 mg tablet 25 mg PO BID 09/28/23 08/20/24 pantoprazole 40 mg tablet,delayed 40 mg PO DAILY 09/28/23 08/20/24 release tacrolimus 1 mg capsule, 2 mg PO BID 09/28/23 08/20/24 immediate-release ursodiol 300 mg capsule 300 mg PO TID 09/28/23 08/20/24 Previous Rx's ?Medication ?Instructions ?Recorded gabapentin 300 mg capsule 300 mg PO BID #60 caps 06/29/24 nabumetone 750 mg tablet 750 mg PO BID PRN pain #14 tabs 08/20/24 orphenadrine citrate 100 mg 100 mg PO Q12H PRN pain #14 tabs 08/20/24 tablet,extended release Allergies Allergy/AdvReac Type Severity Reaction Status Date / Time midazolam (From Versed) Allergy Unknown Agitated Verified 08/20/24 13:27 Penicillins Allergy Unknown Rash Verified 08/20/24 13:27 Opioid HPI Opioid Management Most Recent Opioid Data: Last Pain Scale 9 08/20/24 13:39 08/20/24 [facility] Medical History (Updated 08/20/24 @ 16:06 by Elder Wesley) Liver transplant failure and rejection ?T86.42 - Liver transplant failure (ICD-10) ?T86.41 - Liver transplant rejection (ICD-10) Acid reflux ?K21.9 - Gastro-esophageal reflux disease without esophagitis (ICD-10) Hemochromatosis ?E83.119 - Hemochromatosis, unspecified (ICD-10) High blood pressure ?I10 - Essential (primary) hypertension (ICD-10) Surgical History History of fusion of cervical spine ?Z98.1 - Arthrodesis status (ICD-10) History of ERCP ?Z98.890 - Other specified postprocedural states (ICD-10) History of liver transplant ?Z94.4 - Liver transplant status (ICD-10) Social History Little interest or pleasure in doing things: not at all Feeling down, depressed, or hopeless: not at all Exam Narrative Exam Narrative: Nurses notes and vital signs reviewed and patient is not hypoxic. afebrile General: Uncomfortable Skin: Warm, dry, no pallor noted. No rash to the back. Head: Normocephalic, atraumatic. Neck: Supple, non-tender. Eye: Pupils are equal, round and EOMI. No scleral icterus. Ears, Nose, Mouth, and Throat: Oral mucosa is moist Cardiovascular: Tachycardic. Respiratory: No accessory muscle use or respiratory distress. Lungs are clear to auscultation, no wheezing, rales or rhonchi Back: No midline thoracic or lumbar vertebral tenderness. No CVA tenderness. He has tenderness along a distribution of the musculature of the back left of center ranging from the mid left scapula to the left costovertebral angle that does not move lateral past the medial left scapula I does not move medial past the proximal left parathoracic soft tissue Musculoskeletal: normal ROM, no calf or popliteal tenderness, no lower extremity edema/swelling Neurological: A&O x4. No cranial nerve dysfunction observed. No truncal ataxia. Moves all extremities. Sensation intact. Psychiatric: Cooperative and interactive. Normal mood and affect. Constitutional Vital Signs, click to edit/add: Last Vital Signs Temp 98.3 F 08/20/24 13:21 Pulse 97 H 08/20/24 15:25 Resp 18 08/20/24 15:25 BP 147/97 H 08/20/24 15:25 Pulse Ox 95 08/20/24 15:25 O2 Del Method Room Air 08/20/24 13:41 Course Vital Signs Vital signs: Vital Signs Temperature 98.3 F 08/20/24 13:21 Pulse Rate 125 H 08/20/24 13:21 Respiratory Rate 20 08/20/24 13:21 Blood Pressure 123/96 H 08/20/24 13:21 Pulse Oximetry 96 08/20/24 13:21 Temperature 98.3 F 08/20/24 13:21 Pulse Rate 97 H 08/20/24 15:25 Respiratory Rate 18 08/20/24 15:25 Blood Pressure 147/97 H 08/20/24 15:25 Pulse Oximetry 95 08/20/24 15:25 Oxygen Delivery Method Room Air 08/20/24 13:41 Medical Decision Making MDM Narrative Medical decision making narrative: History and exam are consistent with acute musculoskeletal pain in the affected area with associated spasming. Radiographic imaging and lab testing are not going to be indicated in this instance as this is a musculoskeletal issue. D-dimer is negative. The patient felt better after receiving ED treatment which included IV Solu-Medrol, IV Toradol and IV Norflex. He was discharged home with a prescription for Relafen and additional Norflex. Lab Data Labs: Lab Results 08/20/24 Range/Units 14:26 D-Dimer 0.48 (<=0.59) mg/L FEU Discharge Plan Discharge Chief Complaint: Back Pain/Injury Clinical Impression: Thoracic back pain Patient Disposition: Home, Self-Care Time of Disposition Decision: 16:05 Prescriptions / Home Meds: New nabumetone 750 mg tablet 750 mg PO BID PRN (Reason: pain) Qty: 14 0RF orphenadrine citrate 100 mg tablet extended release 100 mg PO Q12H PRN (Reason: pain) Qty: 14 0RF No Action amlodipine 10 mg tablet 10 mg PO DAILY carvedilol 12.5 mg tablet 25 mg PO BID pantoprazole 40 mg tablet,delayed release (DR/EC) 40 mg PO DAILY tacrolimus 1 mg capsule 2 mg PO BID ursodiol 300 mg capsule 300 mg PO TID gabapentin 300 mg capsule 300 mg PO BID Qty: 60 0RF Print Language: Irish Instructions: Thoracic Pain (ED) Referrals: Luis Hicks DO [Primary Care Provider] - 1 week
[2024-08-20 14:40] LABS: D Dimer 0.48 mg/L FEU (<=0.59)
[2024-08-20] MEDS: ORPHENADRINE 60 MG/ 2 ML VIAL IV (14:42)
[2024-08-20] MEDS: KETOROLAC TROMETHAMINE 30 MG/ML VIAL IVP (14:42)
[2024-08-20] MEDS: METHYLPREDNISOLONE SOD SUCC PF 125 MG/2 ML VIAL IVP (14:43)
[2024-08-20 15:25] VITALS: BP 147/97; PULSE 97; O2SAT 95
== END 2024-08-20 16:17 | disposition home or self-care (01) ==
PROVIDERS: Emergency Provider Emergency Medicine; PCP Internal Medicine
DX: M54.6 Pain in thoracic spine (principal); Z98.1 Arthrodesis status; Z94.4 Liver transplant status
CPT/HCPCS: 36415; 85378; 96374; 96375; 99284; J1885; J2360; J2919

== ENCOUNTER 2024-10-13 09:40 | Outpatient (OUT) | payer MEDICARE, MEDICAID, SELFPAY ==
--- OUTSIDE RECORDS SUMMARY | 2024-10-13 09:56 | XMS_ITS | CCD ---
Author Organization [facility] CliniSytn Care Team Providers Care Electrical Line Mechanic Name Role Phone DR LUIS ABDALLA Attending [...] L Unavailable Nadja Spencer RN Unavailable Unavailable Lusi Abdalla DO Primary Care Provider Dena Pineda [...] (antibiotic) (1 source) Penicillin Drug Allergy The [facility] Repository (18 sources) Midazolam; Translations: [MIDAZOLAM] Drug Allergy 1 Other: See Comments [facility] (8 sources) Penicillins; Translations: [PENICILLINS] Drug Allergy 4 Unknown, Swelling [facility] Work Phone: Comment on above: had skin test done b efore transplant (16 sources) Seasonal allergy; Translations: [SEASONAL ALLERGIES] Propensity to adverse reactions 8 Unknown [facility] (10 sources) Penicillins Drug Allergy Unknown [facility] Work Phone: (5 sources) penicillAMINE Drug Allergy 4 Unknown, Unknown Reaction [facility] (2 sources) Penicillin; Translations: [penicillin] Drug Allergy Urticaria (disorder) [facility] Medications Current Medications Medication Drug Class(es) Dates Sig (Normalized) Sig (Original) amLODIPine 10 mg oral tablet (20 sources) Dihydropyridine Calcium Channel Yazan Start: 11-18-2023 take 1 tablet by mouth once daily Amlodipine 10 mg tablet Active 0 .ROUTE .COMPLEX 90 November 18, 2023 1:35pm TAKE 1 TABLET BY MOUTH EVERY DAY Start: 11-18-2023 take 1 tablet by sylvester th once daily Amlodipine Active 0 .ROUTE .COMPLEX November 18, 2023 2:35pm TAKE 1 TABLET BY MOUTH EVERY DAY Start: 10-13-2019 End: 11-18-2023 take 1 tablet by mouth once daily Amlodipine 10 mg tablet Discontinued 10 MG PO Daily February 17, 2021 11:00pm November 18, 2023 1:35pm Comment on above: TAKE 1 TABLET BY SYLVESTER TH ONCE DAILY. carvedilol 12.5 mg oral tablet (20 sources) alpha-Adrenergic Yazan, beta-Adrenergic Yazan Start: 11-18-2023 take 1 tablet by mouth twice daily at mealtime Carvedilol 12.5 mg tablet Active 0 .ROUTE .COMPLEX 180 November 18, 2023 1:35pm TAKE 1 TABLET BY MOUTH TWICE DAILY WITH FOOD Start: 02-18-2021 End: 11-18-2023 take 1 tablet by mouth twice daily Carvedilol 12.5 mg tablet Discontinued 12.5 MG PO Twice daily February 17, 2021 11:00pm November 18, 2023 1:35pm take 1 tablet by sylvester th every twelve hours Carvedilol 25 MG 1 tablet with food Oral Twice a day Active Comment on above: Take 1 tablet by sylvester th twice daily. cyclobenzaprine hydrochloride 10 mg oral tablet (2 sources) Muscle Relaxant Start: 2020 take 1 tablet by mouth three times daily as needed for muscle spasms Cyclobenzaprine 10 mg tablet Active 10 MG PO Three times daily as needed for back spasms February 25, 2021 11:00pm 0.4 ml enoxaparin sodium 100 mg/ml prefilled syringe (4 sources) Low Molecular Weight Heparin Start: 2021 End: 2021 inject 40 mg by subcutaneous injection every twelve hours enoxaparin (LOVENOX) 40 mg/0.4 mL Inject 0.4 mL subcutaneously every 12 hours. 24 mL 2 11/04/2021 02/02/2022 Active Comment on above: Inject 0.4 mL subcut aneously every 12 hours. gabapentin 100 mg oral capsule (3 sources) Anti-epileptic Agent Start: 2023 take 1 capsule by mouth three times daily Gabapentin 100 mg capsule Active 0 .ROUTE .COMPLEX March 07, 2024 5:54am TAKE 1 CAPSULE BY MOUTH THREE TIMES DAILY FOR 10 DAYS Start: 02-29-2024 End: 03-07-2024 take 1 capsule by mouth three times daily Gabapentin 100 mg capsule Discontinued 100 MG PO Three times daily 25 05February 28, 2024 11:00pm March 07, 2024 5:54am irbesartan 75 mg oral tablet (2 sources) Angiotensin 2 Receptor Yazan Start: 02-18-2021 take 1 tablet by mouth once daily at bedtime Irbesartan 75 mg tablet Active 75 MG PO Daily at bedtime February 17, 2021 11:00pm Multivitamin preparation (1 source) Start: 02-18-2021 take 1 tablet by mouth once daily Multivitamin Active 1 TAB PO Daily February 18, 2021 12:00am Multivitamin Tablet (1 source) Start: 02-18-2021 take 1 tablet by mouth once daily Multivitamin Tablet Active 1 TAB PO Daily February 17, 2021 11:00pm mupirocin 0.02 mg/mg topical ointment (2 sources) RNA Synthetase Inhibitor Antibacterial Start: 03-05-2023 Mupirocin 2 % 1 application Externally Twice a day for 10 days Feb, Active mycophenolate mofetil 250 mg oral capsule (2 sources) Start: 02-18-2021 take 2 capsules by mouth twice daily Mycophenolate Mofetil (Cellcept) 250 mg Capsule Active 500 MG PO Twice daily February 17, 2021 11:00pm ondansetron 4 mg oral tablet (1 source) Serotonin-3 Receptor Antagonist take 1 tablet by mouth every eight hours as needed for nausea Ondansetron HCl 4 MG 1 tablet Orally every 8 hours as needed for nausea for 30 days Active oxyCODONE hydrochloride 5 mg oral capsule (2 sources) Opioid Agonist Start: 02-26-2021 take 5-10 mg by mouth every six hours as needed for pain Oxycodone 5 mg capsule Active 5 - 10 MG PO Q6H as needed for pain 40 February 26, 2021 pantoprazole 40 mg delayed release oral tablet (18 sources) Proton Pump Inhibitor Start: 02-18-2021 take 1 tablet by mouth once daily Pantoprazole 40 mg Tablet,Delayed Release (Dr/Ec) Active 40 MG PO Daily February 17, 2021 11:00pm Comment on above: Take 1 tablet by sylvester th DAILY (6 AM). predniSONE 20 mg oral tablet (5 sources) Start: 02-29-2024 Prednisone 20 mg tablet Active 20 MG PO As Directed September 02, 2024 12:00am 1 tab tid w/ food x 3 days, then bid w/ food x 3 days, then qd w/ food x 3 days Start: 02-26-2021 Prednisone 10 mg tablets,dose pack Active 1 dose pk PO per package directions February 25, 2021 11:00pm take 4 tabs for 3 days then take 3 tabs for 3 days then take 2 tabs for 3 days then take 1 tab for 3 days Start: 02-26-2021 Prednisone Act soo 1 dose pk PO per package directions February 26, 2021 12:00am take 4 tabs for 3 days then take 3 tabs for 3 days then take 2 tabs for 3 days then take 1 tab for 3 days tacrolimus 1 mg oral capsule (19 sources) Calcineurin Inhibitor Immunosuppressant Start: 05-05-2022 End: [...] 11/04/2021 05/01/2022 Discontinued Start: 02-18-2021 take 3 capsules by m outh twice daily Tacrolimus 1 mg capsule Active 3 MG PO Twice daily February 17, 2021 11:00pm Start: 02-18-2021 take 3 mg by mouth twice daily Tacrolimus Active 3 MG PO Twice daily February 18, 2021 12:00am Comment on above: Take 2 capsules by m outh twice daily. Please take 2mg in the morning and 1mg in the evening for a total of 3mg a day. Please take 2mg in t he morning and 1mg in the evening for a total of 3mg a day. Take 2 capsules by m outh twice daily. tiZANidine 4 mg oral tablet (1 source) Central alpha-2 Adrenergic Agonist Start: 09-02-2024 take 1 tablet by mouth once daily at bedtime as needed Tizanidine 4 mg tablet Active 4 MG PO Daily at bedtime as needed for muscle spasticity 01 30September 02, 2024 12:00am ursodiol 300 mg oral capsule (6 sources) Bile Acid Start: 02-18-2021 End: 12-04-2021 take 1 capsule by mouth three times daily Ursodiol 300 mg Capsule Active 300 MG PO Three times daily February 17, 2021 11:00pm Comment on above: Take 1 capsule by [...] 400 mg oral tablet (13 sources) Start: 07-12-20 21 take 1 tablet by mouth twice daily magnesium oxide (MAG-OX) 400 mg (241.3 mg magnesium) tablet Take 1 tablet by mouth twice daily. 60 tablet 0 07/12/2021 Active Comment on above: Take 1 tablet by sylvester th twice daily. sulfamethoxazole 800 mg / trimethoprim 160 mg oral tablet (17 sources) Dihydrofolate Reductase Inhibitor Antibacterial, Sulfonamide Antimicrobial Start: 09-02-19 22 take 1 tablet by mouth once sulfamethoxazole- trimethoprim (BACTRIM DS,SEPTRA DS) 800-160 mg per tablet TAKE 1 TABLET BY MOUTH EVERY THURSDAY,THURSDAY, THURSDAY. 13 tablet 11 09/02/2021 Suspended Start: 02-18-2021 take 1 tablet by sylvester th three times weekly Sulfamethoxazole-Trimethoprim 800-160 mg tablet Active 1 TAB PO 3 Times a week February 17, 2021 11:00pm take 1 tablet by sylvester th every [...] Chronic Complication of device; implant or graft (17 sources) Acute rejection of liver transplant; Translations: [...] protein-calorie malnutrition] Onset: 8 2021 Chronic Other connective tissue disease (1 source) Foot pain; Translations: [Pain in right foot] 02-29-2024 Episodic Other liver diseases (3 sources) Disease of [...] Spondylosis; intervertebral disc disorders; other back problems (11 sources) Other spondylosis with radiculopathy, cervical region; Translations: [Other spondylosis with myelopathy, cervical region] Onset: 1 Chronic Spondylosis; intervertebral disc disorders; other back problems (2 sources) Thoracic back pain; Translations: [Dorsalgia, unspecified] 09-01-2024 Episodic Sprains and strains (2 sources) Sprain of [...] Test Name Value Interpretation Reference Range Facility Fibrin D-dimer [Presence] in Platelet poor plasma by Latex agglutinationon 08-20-2024 Fibrin D-dimer LA Ql (PPP) Fibrin D-dimer [Presence] in Platelet poor plasma by Latex agglutination <=0.59 [facility] Comment on above: Increases in D-Dimer concentration observed withthromboembolic events can be variable due to localization,size, and age of the thrombus. Therefore, a thromboembolicevent cannot be diagnosed with certainty on the basis of thereference range. D-Dimers may also be elevated for a varietyof disorders including advanced age, , coronarydisease, cancer, liver disease, infection, inflammation,hematoma, DIC, trauma, post-surgery, diabetes, thrombolyticor anticoagulant therapy, stress, and generalizedhospitalization. Consent for Treatmenton 05-28 Consent for Treatment [id number] IFF [facility] Discharge Instructionson Discharge Instructions [id number] 0TIFF [facility] ED Clinical Summaryon 2022 ED Clinical Summary (Inserted Image. Szuanne ble to display) [address] [address] ED Clinical Summary Person Information Name: CHUCKIE VILLALTA [place] Age: 37 Years : 1985 Sex: Male Language: Slovak PCP: LUIS ABDALLA DO Marital Status: Phone: [phone] Visit Id: Visit Reason: Foot pain-swelling; PAIN [...] 06/20/2023 18:04:25 06/20/2023 18:04:25 06/20/2023 18:04:25 ADDRESS: [address] [place] [phone] [facility] DOC NOTES: MEDICAL INFORMATION: Prescriptions Given: PATIENT EDUCATION INFORMATION: Instructions: Foot Sprain; Elastic Bandage and RICE Therapy; Ankle Sprain, Phase II Rehab; Ankle Sprain, Phase I Rehab; Ankle Sprain Follow up: With: Address: When: LUIS ABDALLA [address] [place], [place] [id number] [facility] () In 3 days 06/23/2023 Comments: Follow-up with your primary care provider in 3 to 5 days. If symptoms worsen, do not improve, or new symptoms arise please report back to emergency department for further evaluation. DIAGNOSIS: Left ankle sprain; Sprain of left foot [facility] ED Note-Physicianon 06-20-20 ED Note-Physician Basic Information [...] of Problems Differential Diagnosis: [] [facility] Data External documents reviewed: [] My [...] ABDALLA In 3 days 06/23/[address] Business (1) Additional Instructions: Follow-up with your primary care provider in 3 to 5 days. If symptoms worsen, do not improve, or new symptoms arise please report back to emergency department for further evaluation. Patient Education Foot Sprain Elastic Bandage and RICE Therapy Ankle Sprain, Phase II Rehab Ankle Sprain, Phase I Rehab Ankle Sprain Attestation Patient seen and evaluated by the physician retail store assistant. Attending physician was present in the emergency department and supervised care. This visit was performed by both the physician and an APC. I performed all aspects of the MDM as documented. This report was transcribed using voice recognition software. Every effort was made to ensure accuracy, however, inadvertently computerized transmission engineer mistakes may be present. Appropriate healthcare PPE was used in evaluating this patient. The patient was placed in a mask. The healthcare provider was wearing mask, gloves, and utilizing proper hand hygiene. All equipment was properly cleansed. Problem List/Past Medical History Ongoing No qualifying data Historical No qualifyi (more content not included)... [facility] Comment on above: Result Comment: Elec tronically [...] on your foot. General instructions ? Take oilc-qhr-xrvrwnp and prescription medicines only as told by your health care provider. ? When you can walk without pain, wear supportive shoes t (more content not included)... [facility] ED Patient Summaryon 023 ED Patient Summary (Inserted Image. Suzanne ble to display) [place] [id number] Patient Discharge Instructions Person Information Name: CHUCKIE VILLALTA Age: 37 Years Arrival Date: 06/20/2023 15:53:53 Discharge Diagnosis: Left ankle sprain; Sprain of left foot Primary Care Physician: LUIS ABDALLA DO Provider Information Primary Provider: Wilmer Rosenberg M.D. Advanced Trip Rider:None The exam and treatment you received in the Emergency Department were for an urgent problem and are not intended as complete care. It is important that you follow up with a doctor, nurse practitioner, or physician?s retail store assistant for ongoing care. If your symptoms [...] With: Address: When: LUIS ABDALLA [address] [place] [address] Business (1) In 3 days 06/23/2023 Comments: [...] opioids can be used to help relieve wefhztpw-zu-ykozpp pain and are often prescribed following a [...] Administration (www.fda.gov/[place]ali (more content not included)... [facility] XR Ankle 3+ Views Lefton XR Ankle [...] mGy = na DAP = na [facility] XR Foot 3+ Views Lefton 05-28 XR [...] Rosenberg FINAL REPORT Dictated: 06/20/2023 5:29 pm SignLuis kennedy MD Signed (Electronic Signature): 06/20/2023 5:29 pm Signed by: SignLuis kennedy MD Transcribed by: DAVID Technologist: PATRICIA Technical Comments Radiation Dose: Ka,r in mGy = na DAP = na [facility] ANES POSTPROC EVALon 023 ANES POSTPROC EVAL HNO ID: [id number] Author: Delmer Webber MD Service: ? Author [...] Quezada MD; Delmer Webber MD; Henrietta Brewster APRN.SEWING MACHINIST Responsible Provider: Delmer Webber MD Anesthesia Type: [...] March 19, 2023 TIME: 10:05 AM CSN: [id number] Normal [facility] ANES PRE-OPon 03-19-2023 ANES PRE-OP HNO ID: [id number] Author: Delmer Webber MD Service: ? Author Type: Anesthesiologist Type: Anesthesia Preprocedure Evaluation Filed: 03/19/2023 8:02 AM Note Text: ANESTHESIOLOGY DAY OF SURGERY NOTE : 1985 Procedure Information Date/Time: 03/19/23 0800 Scheduled providers: Betina Quezada MD; Delmer Webber MD; Henrietta Brewster APRN.SEWING MACHINIST Procedure: ERCP Location: Gastroenterology Estimated body mass [...] March 19, 2023 TIME: 8:02 AM CSN: [id number] Normal [facility] Gas and Carbon monoxide pane l (BldV)on 03-19-2023 BASE DEFICIT, VENOUS -3 mmol/L Low -2-0 [facility] Comment on above: Order Comment: Speci men Type: BLOOD SPECIMEN Ordering Facility: [facility] Address: [address] [place] [id number] Performed By: #### 5 763-8, COPPER #### [facility] CLIA [id number] [address] [place] [address] [place] Body temperature 98.24 [degF] Normal [facility] Comment on above: Order Comment: Speci men Type: BLOOD SPECIMEN Ordering Facility: [facility] Address: [address] [place], [place] [address] Performed By: #### 5 763-8, COPPER #### [facility] CLIA [id number] [facility] [place] [address] [place] Calcium.ionized (Bld) [Mass/Vol] 1.24 mmol/L Normal 1.08-1.30 [facility] Comment on above: Order Comment: Speci men Type: BLOOD SPECIMEN Ordering Facility: [facility] Address: [address] [place], [place] [address] Performed By: #### 5 763-8, COPPER #### [facility] CLIA [id number] [address] [place] [address] [facility] Calcium.ionized adjusted to pH 7.4 (BldA) [Moles/Vol] 1.23 mmol/L Normal 1.08-1.30 [facility] Comment on above: Order Comment: Speci men Type: BLOOD SPECIMEN Ordering Facility: [facility] Address: [address] [place], [place] [address] Performed By: #### 5 763-8, COPPER #### [facility] CLIA [id number] [address] [place] [address] [place] Carboxyhemoglobin (BldV) [Mass fraction] 1.2 % Normal 0.0-2.0 [facility] Comment on above: Order Comment: Speci men Type: BLOOD SPECIMEN Ordering Facility: [facility] Address: [address] [place], [place] [address] Result Comment: Carb oxyhemoglobin Reference Range for Smokers: 2.0-8.0% Performed By: #### 5 763-8, COPPER #### [facility] CLIA [id number] [address] [id number] [address] [place] CO2 (BldV) [Partial pressure] 36 mm[Hg] Low 42-55 [facility] Comment on above: Order Comment: Speci men Type: BLOOD SPECIMEN Ordering Facility: [facility] Address: [address] Performed By: #### 5 763-8, COPPER #### [facility] CLIA [id number] [address] [place] [address] [place] CO2 adjusted to patient's actual temperature (BldV) [Partial pressure] 35 mmHg Low 42-55 [facility] Comment on above: Order Comment: Speci men Type: BLOOD SPECIMEN Ordering Facility: [facility] Address: [address] [place], [place] [address] Performed By: #### 5 763-8, COPPER #### [facility] CLIA [id number] [address] [place] [address] [place] Glucose [Mass/Vol] 124 mg/dL High 60-105 [facility] Comment on above: Order Comment: Speci men Type: BLOOD SPECIMEN Ordering Facility: [facility] Address: [address] [place], [place] [address] Performed By: #### 5 763-8, COPPER #### [facility] CLIA [id number] [address] [place] [address] [place] HCO3 (Bld) [Moles/Vol] 21 mmol/L Low 24-28 [facility] Comment on above: Order Comment: Speci men Type: BLOOD SPECIMEN Ordering Facility: [facility] Address: [address] [place], [place] [address] Performed By: #### 5 763-8, COPPER #### [facility] CLIA [id number] [address] [place] [address] [place] Hematocrit (Bld) [Volume fraction] 41.1 % Normal 39.0-51.0 [facility] Comment on above: Order Comment: Speci men Type: BLOOD SPECIMEN Ordering Facility: [facility] Address: [address] [place] [address] Performed By: #### 5 763-8, COPPER #### [facility] CLIA [id number] [address] [place] [address] [place] Hemoglobin (Bld) [Mass/Vol] 13.4 g/dL Normal 13.0-17.0 [facility] Comment on above: Order Comment: Speci men Type: BLOOD SPECIMEN Ordering Facility: [facility] Address: [address] Performed By: #### 5 763-8, COPPER #### [facility] CLIA [id number] [address] [place] [address] [place] Lactate [Moles/Vol] 1.9 mmol/L Normal 0.5-2.2 [facility] Comment on above: Order Comment: Speci men Type: BLOOD SPECIMEN Ordering Facility: [facility] Address: [address] Performed By: #### 5 763-8, COPPER #### [facility] CLIA [id number] [address] [place] [address] [place] Methemoglobin (Bld) [Mass fraction] 0.8 % Normal 0.0-1.5 [facility] Comment on above: Order Comment: Speci men Type: BLOOD SPECIMEN Ordering Facility: [facility] Address: [address] Performed By: #### 5 763-8, COPPER #### [facility] CLIA [id number] [address] [place] [address] [place] O2 THERAPY RA=Room Air Normal [facility] Comment on above: Order Comment: Speci men Type: BLOOD SPECIMEN Ordering Facility: [facility] Address: [address] Performed By: #### 5 763-8, COPPER #### [facility] CLIA [id number] [address] [address] [place] Oxygen (BldV) [Partial pressure] 69 mm[Hg] High 35-45 [facility] Comment on above: Order Comment: Speci men Type: BLOOD SPECIMEN Ordering Facility: [facility] Address: [address] [place] [address] Performed By: #### 5 763-8, COPPER #### [facility] CLIA [id number] [address] [place] [address] [place] Oxygen adjusted to patient's actual temperature (BldV) [Partial pressure] 68 mmHg High 35-45 [facility] Comment on above: Order Comment: Speci men Type: BLOOD SPECIMEN Ordering Facility: [facility] Address: [address] [place] [address] Performed By: #### 5 763-8, COPPER #### [facility] CLIA [id number] [address] [place] [id number] [place] Oxygen saturation in Venous blood 94 % High 60-85 [facility] Comment on above: Order Comment: Speci men Type: BLOOD SPECIMEN Ordering Facility: [facility] Address: [address] [place] [address] Performed By: #### 5 763-8, COPPER #### [facility] CLIA [id number] [address] [place] [id number] [place] Oxyhemoglobin (BldV) [Mass fraction] 92 % High 60-85 [facility] Comment on above: Order Comment: Speci men Type: BLOOD SPECIMEN Ordering Facility: [facility] Address: [address] [place] [address] Performed By: #### 5 763-8, COPPER #### [facility] CLIA [id number] [address] [place] [id number] [place] pH (BldV) 7.39 [pH] Normal 7.32-7.42 [facility] Comment on above: Order Comment: Speci men Type: BLOOD SPECIMEN Ordering Facility: [facility] Address: [address] Performed By: #### 5 763-8, COPPER #### [facility] CLIA [id number] [address] [place] [address] [place] pH adjusted to patient's actual temperature (BldV) 7.39 Normal 7.32-7.42 [facility] Comment on above: Order Comment: Speci men Type: BLOOD SPECIMEN Ordering Facility: [facility] Address: [address] Performed By: #### 5 763-8, COPPER #### [facility] CLIA [id number] [address] [place] [address] [place] Potassium [Moles/Vol] 4.1 mmol/L Normal 3.5-5.0 [facility] Comment on above: Order Comment: Speci men Type: BLOOD SPECIMEN Ordering Facility: [facility] Address: [address] Performed By: #### 5 763-8, COPPER #### [facility] CLIA [id number] [address] [place] [address] [place] Sodium [Moles/Vol] 140 mmol/L Normal 136-144 [facility] Comment on above: Order Comment: Speci men Type: BLOOD SPECIMEN Ordering Facility: [facility] Address: [address] Performed By: #### 5 763-8, COPPER #### [facility] CLIA [id number] [address] [place] [address] [place] NURSING PROGon 03-19-2023 NURSING PROG HNO ID: [id number] Author: Blanca Kulkarni RN Service: Nursing Author [...] None Electronically Signed By: Blanca Kulkarni RN [facility] NURSING PROG HNO ID: [id number] Author: Indu Meza RN Service: Nursing Author [...] By: Indu Meza RN In Department: GASTROENTEROLOGY [facility] 03-12-2023 [facility] Telephone ([facility]) CHUCKIE VILLALTA ([id number]) 1985 M Date Time Provider Department 03/12/23 YAMILET YAN [facility] During your visit today, we recorded [...] have family/friend present for procedure transport home:Patient/patient technical account representative was told that if they do [...] area. Any barriers to Patient learning: Patient/Patient Courtesy Van Driver responded appropriately on phone. Type of instruction [...] Encounter Status:Closed by YAMILET YAN on 03/12/23 [facility] ANE POSTPROC EVALon 023 ANES POSTPROC EVAL HNO ID: [id number] Author: Angie Lloyd MD Service: ? Author [...] December 11, 2022 TIME: 12:57 PM CSN: [id number] Normal [facility] ANES PRE-OPon 12-11-2022 ANES PRE-OP HNO ID: [id number] Author: Angie Lloyd MD Service: ? Author [...] December 11, 2022 TIME: 9:21 AM CSN: [id number] [facility] NURSING PROGon 12-11-2022 NURSING PROG HNO ID: [id number] Author: Aicha Bragg RN Service: ? Author [...] None Electronically Signed By: Aicha Bragg RN [facility] NURSING PROG HNO ID: [id number] Author: Tatiana Ray RN Service: Nursing Author [...] Tatiana Ray RN In Department: GASTROENTEROLOGY Normal [facility] Rey 11-04-2022 CNPN Telephone (LU4C) CHUCKIE VILLALTA ([id number]) 1985 M TRN Date Time Provider Department 11/04/22 MIMI CLEMENS [facility] During your visit today, we recorded the following information about you: SHAQ Price 11/04/2022 11:06 AM Signed SW attempted to contact the patient to discuss the [facility] clinic. DEONDRE left a VM [...] Fully Assessed Reason for Visit: Care Coordination [2001] Cmt: [facility] clinic Prescriptions as of 11/04/2022 [...] Encounter Status:Closed by MIMI CLEMENS on 11/04/22 [facility] 09-22-2022 [facility] Telephone (GASTA5) CHUCKIE VILLALTA ([id number]) 1985 M [facility] Date Time Provider Department 09/22/22 RASHIDA LIRIANO GASTA5 During your visit today, we recorded the following information about you: Rashida Liriano RN 09/22/2022 11:33 AM Signed Called and left patient regarding referral to [facility] clinic. Call back number provided. [employer] message with the details also sent. Rashida Liriano RN September 22, 2022 11:32 AM Allergies As of Date: 09/22/2022 Noted Allergy Reaction PENICILLINS 16 - Unknown Comments: Skin test positive 09/01/18 MIDAZOLAM 02/18/2021 14 - Other: See Comments SEASONAL ALLERGIES 06/29/2018 16 - Unknown Date Reviewed: 09/04/2022 Reviewed by: Tova Wilson RN - Fully Assessed Reason for Visit: Care Coordination [4001] Cmt: [facility] clinic Prescriptions as of 09/22/2022 [...] Status:Closed by RASHIDA LIRIANO on 09/22/22 Normal [facility] CASE MANAGEMon 09-05-2022 CASE MANAGEM HNO ID: [id number] Author: JEY Felton Service: ? Author Type: Primary Mill Roller Type: Care Mgt Progress Note Filed: 09/05/2022 [...] CM needs, please contact on-call at: G [facility] - [phone] H [facility] - [phone] J [facility] - [address] [facility] - [phone] SIGNATURE: JEY Jim PATIENT NAME: Chuckie Villalta DATE: September 05, 2022 TIME: 9:30 AM PAGER/CONTACT #: Normal [facility] CBC panel Auto (Bld)on 09-05 Erythrocyte distribution width (RBC) [Ratio] 17.1 % High 11.5-15.0 [facility] Comment on above: Order Comment: Speci men Type: BLOOD SPECIMEN Ordering Facility: [facility] Address: [address] [place], [place] [address] Performed By: #### 5 763-8, COPPER #### [facility] CLIA [id number] [address] [place] [address] [place] Hematocrit (Bld) [Volume fraction] 37.4 % Low 39.0-51.0 [facility] Comment on above: Order Comment: Speci men Type: BLOOD SPECIMEN Ordering Facility: [facility] Address: [address] [place] [address] Performed By: #### 5 763-8, COPPER #### [facility] CLIA [id number] [address] [place] [address] [place] Hemoglobin (Bld) [Mass/Vol] 12.8 g/dL Low 13.0-17.0 [facility] Comment on above: Order Comment: Speci men Type: BLOOD SPECIMEN Ordering Facility: [facility] Address: [address] [place] [address] Performed By: #### 5 763-8, COPPER #### [facility] CLIA [id number] [address] [place] [address] [place] MCH (RBC) [Entitic mass] 30.3 pg Normal 26.0-34.0 [facility] Comment on above: Order Comment: Speci men Type: BLOOD SPECIMEN Ordering Facility: [facility] Address: [address] [place], [place] [address] Performed By: #### 5 763-8, COPPER #### [facility] CLIA [id number] [address] [place] [address] [place] MCHC (RBC) [Mass/Vol] 34.2 g/dL Normal 30.5-36.0 [facility] Comment on above: Order Comment: Speci men Type: BLOOD SPECIMEN Ordering Facility: [facility] Address: [address] Performed By: #### 5 763-8, COPPER #### [facility] CLIA [id number] [address] [place] [address] [place] MCV (RBC) [Entitic vol] 88.4 fL Normal 80.0-100.0 [facility] Comment on above: Order Comment: Speci men Type: BLOOD SPECIMEN Ordering Facility: [facility] Address: [address] [place], [place] [address] Performed By: #### 5 763-8, COPPER #### [facility] CLIA [id number] [address] [place] [address] [place] Nucleated RBC (Bld) [#/Vol] 10*3/uL Normal <0.01 [facility] Comment on above: Order Comment: Speci men Type: BLOOD SPECIMEN Ordering Facility: [facility] Address: [address] [place], [place] [address] Performed By: #### 5 763-8, COPPER #### [facility] CLIA [id number] [address] [place] [address] [place] Platelet mean volume (Bld) [Entitic vol] 12.6 fL Normal 9.0-12.7 [facility] Comment on above: Order Comment: Speci men Type: BLOOD SPECIMEN Ordering Facility: [facility] Address: [address] [place], [place] [address] Performed By: #### 5 763-8, COPPER #### [facility] CLIA [id number] [address] [place] [address] [place] Platelets (Bld) [#/Vol] 61 10*3/uL Low 150-400 [facility] Comment on above: Order Comment: Speci men Type: BLOOD SPECIMEN Ordering Facility: [facility] Address: [address] [place], [place] [address] Result Comment: Resu lts checked and verified.No clot detected. Performed By: #### 5 763-8, COPPER #### [facility] CLIA [id number] [address] [place] [address] [place] RBC (Bld) [#/Vol] 4.23 10*6/uL Normal 4.20-6.00 [facility] Comment on above: Order Comment: Speci men Type: BLOOD SPECIMEN Ordering Facility: [facility] Address: [address] [place] [address] Performed By: #### 5 763-8, COPPER #### [facility] CLIA [id number] [address] [place] [address] OF [facility] WBC (Bld) [#/Vol] 4.92 10*3/uL Normal 3.70-11.00 [facility] Comment on above: Order Comment: Speci men Type: BLOOD SPECIMEN Ordering Facility: [facility] Address: [address] [place] [phone] Performed By: #### 5 763-8, COPPER #### [facility] CLIA [id number] [address] [place] [address] OF [facility] CNDSon 09-05-2022 CNDS HNO ID: [id number] Author: Minna Tilley MD Service: General Internal [...] 09/16/2022 3:55 PM Genevieve Burton PA-C GASTA5 Luis Gomez REASON FOR HOSPITALIZATION: abdominal pain, nausea/vomiting, diarrhea [...] from pancreatitis w/ dehydration Reactive? blood cultures 08/31 NGTD x1d Diarrhea, none this admission OPERATIONS/PROCEDURE DURING THIS HOSPITALIZATION: Procedure(s) (LRB): PERCUTANEOUS NEEDLE BIOPSY OF LIVER (N/A) US IMAGING GUIDED BIOPSY LIVER US DOPPLER COM (more content not included)... Normal [facility] Comprehensive metabolic 2000 panelon 09-05-2022 Albumin [Mass/Vol] 3.8 g/dL Low 3.9-4.9 [facility] Comment on above: Order Comment: Speci men Type: BLOOD SPECIMENOrdering Facility: [facility] Address: [address] [address] Performed By: #### 2 4323-8 ####[facility] [id number] [place] [address] [place] ALP [Catalytic activity/Vol] 94 U/L Normal 38-113 [facility] Comment on above: Order Comment: Speci men Type: BLOOD SPECIMENOrdering Facility: [facility] Address: [address] [address] Performed By: #### 2 4323-8 ####[facility] [id number] [place] [address] [place] ALT [Catalytic activity/Vol] 101 U/L High 10-54 [facility] Comment on above: Order Comment: Speci men Type: BLOOD SPECIMENOrdering Facility: [facility] Address: [address] Performed By: #### 2 4323-8 ####[facility] [id number] [place] [address] [place] Anion gap [Moles/Vol] 11 mmol/L Normal 9-18 [facility] Comment on above: Order Comment: Speci men Type: BLOOD SPECIMENOrdering Facility: [facility] Address: [address] [address] Performed By: #### 2 4323-8 ####[facility] [id number] [place] [address] [place] AST [Catalytic activity/Vol] 75 U/L High 14-40 [facility] Comment on above: Order Comment: Speci men Type: BLOOD SPECIMENOrdering Facility: [facility] Address: [address] Performed By: #### 2 4323-8 ####[facility] [id number] [place] [address] [place] Bilirubin [Mass/Vol] 1.8 mg/dL High 0.2-1.3 [facility] Comment on above: Order Comment: Speci men Type: BLOOD SPECIMENOrdering Facility: [facility] Address: [address] Performed By: #### 2 4323-8 ####[facility] [id number] [place] [address] [place] Calcium [Mass/Vol] 9.6 mg/dL Normal 8.5-10.2 [facility] Comment on above: Order Comment: Speci men Type: BLOOD SPECIMENOrdering Facility: [facility] Address: [address] Performed By: #### 2 4323-8 ####[facility] [id number] [place] [address] [place] Chloride [Moles/Vol] 102 mmol/L Normal 97-105 [facility] Comment on above: Order Comment: Speci men Type: BLOOD SPECIMENOrdering Facility: [facility] Address: [address] [place] [address] Performed By: #### 2 4323-8 ####[facility] [id number] [place] [address] [place] CO2 [Moles/Vol] 23 mmol/L Normal 22-30 [facility] Comment on above: Order Comment: Speci men Type: BLOOD SPECIMENOrdering Facility: [facility] Address: [address] [place] [address] Performed By: #### 2 4323-8 ####[facility] [id number] [address] [place] Creatinine [Mass/Vol] 1.16 mg/dL Normal 0.73-1.22 [facility] Comment on above: Order Comment: Speci men Type: BLOOD SPECIMENOrdering Facility: [facility] Address: [address] [place] [address] Performed By: #### 2 4323-8 ####[facility] [id number] [address] OF [facility] ESTIMATED GLOMERULAR FILTRATION RATE 84 mL/min/1.73m??? Normal >=60 [facility] Comment on above: Order Comment: Speci men Type: BLOOD SPECIMENOrdering Facility: [facility] Address: [address] [place] [address] Result Comment: Brenda mated Glomerular Filtration Rate [...] actual GFR. Performed By: #### 2 4323-8 ####[facility] [id number] [place] [address] [place] Glucose [Mass/Vol] 170 mg/dL High 74-99 [facility] Comment on above: Order Comment: Noe madrid Type: BLOOD SPECIMENOrdering Facility: [facility] Address: [address] [place] [address] Result Comment: The [place] Diabetes Association (ADA) provides guidance for cutoff [...] Standards of Medical Care in Diabetes 2016, [place] Diabetes Association. Diabetes Care. 2016.39(Suppl 1). Performed By: #### 2 4323-8 ####[facility] [id number] [place] [address] [place] Potassium [Moles/Vol] 3.8 mmol/L Normal 3.7-5.1 [facility] Comment on above: Order Comment: Noe madrid Type: BLOOD SPECIMENOrdering Facility: [facility] Address: [address] [phone] Performed By: #### 2 4323-8 ####[facility] [id number] [place] [address] [place] Protein [Mass/Vol] 6.8 g/dL Normal 6.3-8.0 [facility] Comment on above: Order Comment: Noe madrid Type: BLOOD SPECIMENOrdering Facility: [facility] Address: [address] [phone] Performed By: #### 2 4323-8 ####[facility] [id number] [address] [place] Sodium [Moles/Vol] 136 mmol/L Normal 136-144 [facility] Comment on above: Order Comment: Speci men Type: BLOOD SPECIMENOrdering Facility: [facility] Address: [address] [address] Performed By: #### 2 4323-8 ####[facility] [id number] [place] [address] [place] Urea nitrogen [Mass/Vol] 11 mg/dL Normal 9-24 [facility] Comment on above: Order Comment: Speci men Type: BLOOD SPECIMENOrdering Facility: [facility] Address: [address] [place] [address] Performed By: #### 2 4323-8 ####[facility] [id number] [address] [place] NUTRITIONon 09-05-2022 NUTRITION HNO ID: [id number] Author: Gifty Arnold RD Service: Nutrition Therapy Author Type: Registered Dietitian Type: Nutrition Filed: 09/05/2022 1:39 PM Note Text: NUTRITION THERAPY INITIAL ASSESSMENT SERVICE DATE: 09/05/2022 SERVICE TIME: 10:50 am Nutrition Assessment: Recommended Malnutrition Diagnosis: No Malnutrition Identified Nutrition Diagnosis: Problem: Suboptimal protein/energy intake Related to: Unknown etiology As evidenced by: Medical condition, Intake records Estimated kilocalorie needs: 9634-6803 Calorie Calculation Method: 20-25 kcals/kg Estimated protein [...] per patient. 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 Consumes 3 meals daily at home. Denies [...] September 05, 2022 TIME: 1:35 PM Normal [facility] PT panel Coag (PPP)on 2022 INR Coag (PPP) [Relative time] 1.0 {INR} Normal 0.9-1.3 [facility] Comment on above: Order Comment: Noe madrid Type: BLOOD SPECIMEN Order[facility] Address: [address] [place], [place] [address] Result Comment: Aster min K Antagonist (VKA) Therapeutic Range: INR 2 to 3 (Target INR of 2.5) Note: For patients treated with VKA drugs, such as warfarin, the [place] [employer] 2012 Guideline recommends [...] Chest 2012, 141:7S-47S Goldie RA, et al. [facility] 2017, 70: 252-289 Performed By: #### V ITB6 #### [facility] [id number] [address] [place] [address] PT Coag (PPP) [Time] 10.8 s Normal 9.7-13.0 [facility] Comment on above: Order Comment: Noe madrid Type: BLOOD SPECIMEN Order[facility] Facility[facility] Address: [address] [phone] Performed By: #### V ITB6 #### [facility] CLIA [id number] [address] [place] [address] Tacrolimus Bld-ncon 2022 Tacrolimus (Bld) [Mass/Vol] 8.4 ng/mL Normal 5.0-20.0 [facility] Comment on above: Order Comment: Speci men Type: BLOOD SPECIMEN Order[facility] Address: [address] [place] [phone] Result Comment: Nannette vidualized target levels for [...] situation. Test performed by chemiluminescent immunoassay using [employer] i. Performed By: #### 2 4323-8 #### [facility] CLIA [id number] [address] [address] [place] ANES POSTPROC EVALon 023 ANES POSTPROC EVAL HNO ID: [id number] Author: Lucas Moseley MD Service: ? Author Type: Anesthesiologist Type: Anesthesia Postprocedure Evaluation Filed: 09/04/2022 11:10 AM Note Text: POST ANESTHESIA EVALUATION NOTE : 1985 Procedure Summary Date: 09/04/22 Room / Location: Gastroenterology Anesthesia Start: 850 Anesthesia Stop: 8 Procedure: EGD DIAGNOSTIC Diagnosis: (Stent removal) Scheduled Providers: Betina Quezada MD; Lucas Moseley MD; Suzie Knott APRN.SEWING MACHINIST Responsible Provider: Lucas Moseley MD Anesthesia Type: [...] September 04, 2022 TIME: 11:10 AM CSN: [id number] Normal [facility] ANES PRE-OPon 09-04-2022 ANES PRE-OP HNO ID: [id number] Author: Lucas Moseley MD Service: ? Author Type: Anesthesiologist Type: Anesthesia Preprocedure Evaluation Filed: 09/04/2022 8:14 AM Note Text: ANESTHESIOLOGY DAY OF SURGERY NOTE : 1985 Procedure Information Date/Time: 09/04/22 1300 Scheduled providers: Betina Quezada MD; Lucas Moseley MD; Suzie Knott APRN.SEWING MACHINIST Procedure: EGD DIAGNOSTIC Location: Gastroenterology Estimated body [...] administration yosef (more content not included)... Normal [facility] CBC panel Auto (Bld)on 09-04 Erythrocyte distribution width (RBC) [Ratio] 17.1 % High 11.5-15.0 [facility] Comment on above: Order Comment: Speci men Type: BLOOD SPECIMEN [facility] Address: [address] [place] [address] [place] [address] Performed By: #### 5 0189-0, 82449-1, 2132-03 #### [facility] CLIA [id number] [address] [place] [address] [place] Hematocrit (Bld) [Volume fraction] 36.1 % Low 39.0-51.0 [facility] Comment on above: Order Comment: Speci men Type: BLOOD SPECIMEN Order[facility] Facility[facility] Address: [address] [place], [place] [address] Performed By: #### 5 0189-0, 92798-7, 2132-03 #### [facility] CLIA [id number] [address] [place] [address] [place] Hemoglobin (Bld) [Mass/Vol] 12.5 g/dL Low 13.0-17.0 [facility] Comment on above: Order Comment: Speci men Type: BLOOD SPECIMEN Order[facility] Address: [address] [place], [place] [address] Performed By: #### 5 0189-0, , 2132-03 #### [facility] CLIA [id number] [address] [place] [address] [place] MCH (RBC) [Entitic mass] 30.0 pg Normal 26.0-34.0 [facility] Comment on above: Order Comment: Speci men Type: BLOOD SPECIMEN Order[facility] Address: [address] [place], [place] [address] Performed By: #### 5 0189-0, 76127-1, 2132-03 #### [facility] CLIA [id number] [address] [place] [address] [place] MCHC (RBC) [Mass/Vol] 34.6 g/dL Normal 30.5-36.0 [facility] Comment on above: Order Comment: Speci men Type: BLOOD SPECIMEN [facility] Address: [address] Performed By: #### 5 0189-0, 89115-1, 2132-03 #### [facility] CLIA [id number] [address] [place] [address] [place] MCV (RBC) [Entitic vol] 86.8 fL Normal 80.0-100.0 [facility] Comment on above: Order Comment: Speci men Type: BLOOD SPECIMEN [facility] Address: [address] [place], [place] [address] Performed By: #### 5 0189-0, 74241-9, 2132-03 #### [facility] CLIA [id number] [address] [place] [address] [place] Nucleated RBC (Bld) [#/Vol] 10*3/uL Normal <0.01 [facility] Comment on above: Order Comment: Speci men Type: BLOOD SPECIMEN [facility] Address: [address] [place], [place] [address] Performed By: #### 5 0189-0, 22837-6, 2132-03 #### [facility] CLIA [id number] [address] [place] [address] [place] Platelet mean volume (Bld) [Entitic vol] 11.8 fL Normal 9.0-12.7 [facility] Comment on above: Order Comment: Speci men Type: BLOOD SPECIMEN [facility] Address: [address] [place], [place] [address] Performed By: #### 5 0189-0, 50317-6, 2132-03 #### [facility] CLIA [id number] [address] [place] [address] [place] Platelets (Bld) [#/Vol] 47 10*3/uL Low 150-400 [facility] Comment on above: Order Comment: Speci men Type: BLOOD SPECIMEN Order[facility] Address: [address] [place] [address] Result Comment: Resu lts checked and verified.No clot detected. Performed By: #### 5 0189-0, , 2132-03 #### [facility] CLIA [id number] [address] [place] RBC (Bld) [#/Vol] 4.16 10*6/uL Low 4.20-6.00 [facility] Comment on above: Order Comment: Speci men Type: BLOOD SPECIMEN [facility] Address: [address] [place] [address] Performed By: #### 5 0189-0, , 2132-03 #### [facility] CLIA [id number] [address] [place] [address] [place] WBC (Bld) [#/Vol] 3.04 10*3/uL Low 3.70-11.00 [facility] Comment on above: Order Comment: Speci men Type: BLOOD SPECIMEN [facility] Address: [address] [place] [address] Performed By: #### 5 0189-0, , 2132-03 #### [facility] CLIA [id number] [address] [place] [address] [place] Rey 09-04-2022 [facility] CHUCKIE VILLALTA ([id number]) 1985 M TRN Date Time Provider Department 09/04/22 BETINA QUEZADA During your visit today, we recorded the [...] 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] Order(s):ERCP [GI18] Order #: [id number] FUTURE Prescriptions as of 09/04/2022 - tacrolimus [...] Status:Closed by BETINA QUEZADA on 09/04/22 Normal [facility] COPPER BLOODon 09-04-2022 Copper [Mass/Vol] 86 ug/dL Normal 70-140 [facility] Comment on above: Order Comment: Speci men Type: BLOOD SPECIMEN [facility] Address: [address] [address] Result Comment: This test was developed and its performance characteristics determined by [facility] [place] ([facility]). It has not been cleared or approved by the FDA. [facility] is regulated under CLIA as qualified to perform high-complexity testing. This test is used for clinical purposes. It should not be regarded as investigational or for research. Performed By: #### 5 763-8, COPPER #### [facility] CLIA [id number] [address] [place] [address] [place] Comprehensive metabolic 2000 panelon 09-04-2022 Albumin [Mass/Vol] 3.7 g/dL Low 3.9-4.9 [facility] Comment on above: Order Comment: Noe madrid Type: BLOOD SPECIMEN Order[facility] Address: [address] [place] [address] Performed By: #### 2 4323-8 #### [facility] CLIA [id number] [facility] [place] [address] [place] ALP [Catalytic activity/Vol] 104 U/L Normal 38-113 [facility] Comment on above: Order Comment: Louiei mercy Type: BLOOD SPECIMEN Order[facility] Address: [address] [address] Performed By: #### 2 4323-8 #### [facility] CLIA [id number] [facility] [place] [address] [place] ALT [Catalytic activity/Vol] 101 U/L High 10-54 [facility] Comment on above: Order Comment: Speci men Type: BLOOD SPECIMEN Order[facility] Address: [address] [place] [address] Performed By: #### 2 4323-8 #### [facility] CLIA [id number] [address] [place] [address] [place] Anion gap [Moles/Vol] 10 mmol/L Normal 9-18 [facility] Comment on above: Order Comment: Speci men Type: BLOOD SPECIMEN Order[facility] Address: [address] [address] Performed By: #### 2 4323-8 #### [facility] CLIA [id number] [address] [place] [address] [place] AST [Catalytic activity/Vol] 87 U/L High 14-40 [facility] Comment on above: Order Comment: Speci men Type: BLOOD SPECIMEN [facility] [facility] Address: [address] Performed By: #### 2 4323-8 #### [facility] CLIA [id number] [address] [place] [address] [place] Bilirubin [Mass/Vol] 3.1 mg/dL High 0.2-1.3 [facility] Comment on above: Order Comment: Speci men Type: BLOOD SPECIMEN Ordering Facility: [facility] Address: [address] Performed By: #### 2 4323-8 #### [facility] CLIA [id number] [address] [place] [address] [place] Calcium [Mass/Vol] 9.3 mg/dL Normal 8.5-10.2 [facility] Comment on above: Order Comment: Speci men Type: BLOOD SPECIMEN Ordering Facility: [facility] Address: [address] Performed By: #### 2 4323-8 #### [facility] CLIA [id number] [address] [place] [address] [place] Chloride [Moles/Vol] 101 mmol/L Normal 97-105 [facility] Comment on above: Order Comment: Speci men Type: BLOOD SPECIMEN Ordering Facility: [facility] Address: [address] [place] [address] Performed By: #### 2 4323-8 #### [facility] CLIA [id number] [address] [place] [address] [place] CO2 [Moles/Vol] 25 mmol/L Normal 22-30 [facility] Comment on above: Order Comment: Speci men Type: BLOOD SPECIMEN Ordering Facility: [facility] Address: [address] [place] [address] Performed By: #### 2 4323-8 #### [facility] CLIA [id number] [address] [place] [address] [place] Creatinine [Mass/Vol] 1.09 mg/dL Normal 0.73-1.22 [facility] Comment on above: Order Comment: Speci men Type: BLOOD SPECIMEN Ordering Facility: [facility] Address: [address] [place] [address] Performed By: #### 2 4323-8 #### [facility] CLIA [id number] [address] [place] [address] [place] ESTIMATED GLOMERULAR FILTRATION RATE 90 mL/min/1.73m??? Normal >=60 [facility] Comment on above: Order Comment: Speci men Type: BLOOD SPECIMEN Ordering Facility: [facility] Address: [address] [place] [address] Result Comment: Brenda mated Glomerular Filtration Rate [...] GFR. Performed By: #### 2 4323-8 #### [facility] CLIA [id number] [address] [place] [address] [place] Glucose [Mass/Vol] 123 mg/dL High 74-99 [facility] Comment on above: Order Comment: Speci men Type: BLOOD SPECIMEN Ordering Facility: [facility] Address: [address] [place] [address] Result Comment: The [place] Diabetes Association (ADA) provides guidance for cutoff [...] Standards of Medical Care in Diabetes 2016, [place] [employer]. Diabetes Care. 2016.39(Suppl 1). Performed By: #### 2 4323-8 #### [facility] CLIA [id number] [address] [place] [address] [place] Potassium [Moles/Vol] 4.1 mmol/L Normal 3.7-5.1 [facility] Comment on above: Order Comment: Speci men Type: BLOOD SPECIMEN Ordering Facility: [facility] Address: [address] [place] [address] Performed By: #### 2 4323-8 #### [facility] CLIA [id number] [address] [place] [id number] [place] Protein [Mass/Vol] 6.7 g/dL Normal 6.3-8.0 [facility] Comment on above: Order Comment: Speci men Type: BLOOD SPECIMEN Ordering Facility: [facility] Address: [address] [place] [address] Performed By: #### 2 4323-8 #### [facility] CLIA [id number] [address] [place] [address] [place] Sodium [Moles/Vol] 136 mmol/L Normal 136-144 [facility] Comment on above: Order Comment: Speci men Type: BLOOD SPECIMEN Ordering Facility: [facility] Address: [address] [place] [address] Performed By: #### 2 4323-8 #### [facility] CLIA [id number] [address] [place] [address] [place] Urea nitrogen [Mass/Vol] 7 mg/dL Low 9-24 [facility] Comment on above: Order Comment: Speci men Type: BLOOD SPECIMEN Ordering Facility: [facility] Address: [address] [place] [address] Performed By: #### 2 4323-8 #### [facility] CLIA [id number] [address] [place] [address] [place] FLUORO ERCP (POC) FOR DDI US E ONLYon 09-04-2022 [facility] NURSING PROGon 09-04-2022 NURSING PROG HNO ID: [id number] Author: Adeline Martínez RN Service: Nursing Author [...] RN In Department: HOSP MAIN G100 Normal [facility] PT panel Coag (PPP)on 2022 INR Coag (PPP) [Relative time] 1.1 {INR} Normal 0.9-1.3 [facility] Comment on above: Order Comment: Noe [place] Type: BLOOD SPECIMEN Ordering Facility: [facility] Address: [address] [place] [id number] Result Comment: Aster min K Antagonist (VKA) Therapeutic Range: INR 2 to 3 (Target INR of 2.5) Note: For patients treated with VKA drugs, such as warfarin, the [place] [employer] 2012 Guideline recommends [...] Chest 2012, 141:7S-47S Goldie RA, et al. [facility] 2017, 70: 252-289 Performed By: #### 5 763-8, COPPER #### [facility] CLIA [id number] [address] [place] [address] [place] PT Coag (PPP) [Time] 11.0 s Normal 9.7-13.0 [facility] Comment on above: Order Comment: Noe [place]rid Type: BLOOD SPECIMEN Ordering Facility: [facility] Address: [address] [place] [id number] Performed By: #### 5 763-8, COPPER #### [facility] CLIA [id number] [address] [place] [address] [place] Tacrolimus Bld-mCncon 2022 Tacrolimus (Bld) [Mass/Vol] 10.5 ng/mL Normal 5.0-20.0 [facility] Comment on above: Order Comment: Noe [place] Type: BLOOD SPECIMENOrdering Facility: [facility] Address: [address] [place] [address] Result Comment: Nannette vidualized target levels for [...] situation. Test performed by chemiluminescent immunoassay using [employer] i. Performed By: #### 1 1253-2 ####[facility] [id number] [facility] [id number] [facility] VITAMIN B6/PYRIDOXINon 09-04 VITAMIN B6 19.3 nmol/L Low 20.0-125.0 [facility] Comment on above: Order Comment: Noe [place] Type: BLOOD SPECIMEN Order[facility] Facility[facility] Address: [address] [place] [address] Result Comment: INTE RPRETIVE INFORMATION: Vitamin B6 (Pyridoxal 5-Phosphate) Pyridoxal 5'-phosphate measured in a specimen collected following an 8-hour or overnight fast accurately indicates vitamin B6 nutritional status. Non-fasting specimen concentration reflects recent vitamin intake. This test was developed and its performance characteristics determined by [facility]. It has not been cleared or approved by the [place] Food and Drug Administration. This test was performed in a CLIA certified laboratory and is intended for clinical purposes. Performed By: [facility] [address] [place] [address] Laminating Press Operator: Mic Rangel MD, PhD Performed By: #### V ITB6 #### [facility] CLIA [id number] [address] [place] [address] Zinc SerPl-mCncon 09-04-2022 Zinc [Mass/Vol] 57 ug/dL Low 60-120 [facility] Comment on above: Order Comment: Noe [place]rid Type: BLOOD SPECIMEN Order[facility] Address: [address] [place] [address] Result Comment: This test was developed and its performance characteristics determined by [facility]'s [facility] [place] ([facility]). It has not been cleared or approved by the FDA. [facility] is regulated under CLIA as qualified to perform high-complexity testing. This test is used for clinical purposes. It should not be regarded as investigational or for research. Performed By: #### 5 763-8, COPPER #### [facility] CLIA [id number] [address] [place] [address] [facility] BRIEF OP NOTon 09-03-2022 BRIEF OP NOT HNO ID: [id number] Author: Howard Shepherd MD Service: Radiology Author Type: Physician Type: Brief Op Note Filed: 09/03/2022 2:51 PM Note Text: BRIEF OPERATIVE / PROCEDURE NOTE LOG ID: [id number] SURGERY/PROCEDURE DATE: 08/31/2022 - 09/03/2022 INCISION/PROCEDURE START TIME: 2:34 PM INCISION CLOSE/PROCEDURE END TIME: 2:39 PM SURGEON(S)/PROCEDURALIS T(S) AND HOGSHEAD HAND(S): Surgeon(s) and Role: * Howard Shepherd MD [...] September 03, 2022 TIME: 2:50 PM Normal [facility] CASE MANAGEMon 09-03-2022 CASE MANAGEM HNO ID: [id number] Author: JEY Felton Service: ? Author Type: Primary Mill Roller Type: Care Mgt Progress Note Filed: 09/03/2022 [...] this admission, please contact Case Management. SIGNATURE: Delilah CASTAÑEDA, DELIVERY ASSISTANT PATIENT NAME: Chuckie Villalta DATE: September 03, 2022 TIME: 10:03 AM PAGER/CONTACT #: Normal [facility] CBC panel Auto (Bld)on 09-03 Erythrocyte distribution width (RBC) [Ratio] 16.9 % High 11.5-15.0 [facility] Comment on above: Order Comment: Speci men Type: BLOOD SPECIMENOrdering Facility: [facility] Address: [address] [place] [address] Performed By: #### 3 1201-7, 26415-4, IPFR ####[facility] [id number] [address] STATES [facility] Hematocrit (Bld) [Volume fraction] 33.9 % Low 39.0-51.0 [facility] Comment on above: Order Comment: Speci men Type: BLOOD SPECIMENOrdering Facility: [facility] Address: [address] [place] [address] Performed By: #### 3 1201-7, 83585-3, IPFR ####[facility] [id number] [place] [address] [place] Hemoglobin (Bld) [Mass/Vol] 12.0 g/dL Low 13.0-17.0 [facility] Comment on above: Order Comment: Speci men Type: BLOOD SPECIMENOrdering Facility: [facility] Address: [address] [place] [address] Performed By: #### 3 1201-7, 13490-0, IPFR ####[facility] [id number] [place] [address] [place] MCH (RBC) [Entitic mass] 30.2 pg Normal 26.0-34.0 [facility] Comment on above: Order Comment: Speci men Type: BLOOD SPECIMENOrdering Facility: [facility] Address: [address] Performed By: #### 3 1201-7, 18113-1, IPFR ####[facility] [id number] [place] [address] [place] MCHC (RBC) [Mass/Vol] 35.4 g/dL Normal 30.5-36.0 [facility] Comment on above: Order Comment: Speci men Type: BLOOD SPECIMENOrdering Facility: [facility] Address: [address] Performed By: #### 3 1201-7, 34226-0, IPFR ####[facility] [id number] [place] [address] [place] MCV (RBC) [Entitic vol] 85.4 fL Normal 80.0-100.0 [facility] Comment on above: Order Comment: Speci men Type: BLOOD SPECIMENOrdering Facility: [facility] Address: [address] Performed By: #### 3 1201-7, 57585-3, IPFR ####[facility] [id number] [place] [address] [place] Nucleated RBC (Bld) [#/Vol] 10*3/uL Normal <0.01 [facility] Comment on above: Order Comment: Speci men Type: BLOOD SPECIMENOrdering Facility: [facility] Address: [address] Performed By: #### 3 1201-7, 84451-8, IPFR ####[facility] [id number] [place] [address] [place] Platelet mean volume (Bld) [Entitic vol] 12.1 fL Normal 9.0-12.7 [facility] Comment on above: Order Comment: Speci men Type: BLOOD SPECIMENOrdering Facility: [facility] Address: [address] [place] [address] Performed By: #### 3 1201-7, 81031-7, IPFR ####[facility] [id number] [place] [address] [place] Platelets (Bld) [#/Vol] 39 10*3/uL Low 150-400 [facility] Comment on above: Order Comment: Speci men Type: BLOOD SPECIMENOrdering Facility: [facility] Address: [address] [place] [address] Result Comment: No c lot detected. Performed By: #### 3 1201-7, 32446-7, IPFR ####[facility] [id number] [place] [address] [place] RBC (Bld) [#/Vol] 3.97 10*6/uL Low 4.20-6.00 [facility] Comment on above: Order Comment: Speci men Type: BLOOD SPECIMENOrdering Facility: [facility] Address: [address] [place] [address] Performed By: #### 3 1201-7, 82072-9, IPFR ####[facility] [id number] [place] [address] [place] WBC (Bld) [#/Vol] 2.84 10*3/uL Low 3.70-11.00 [facility] Comment on above: Order Comment: Speci men Type: BLOOD SPECIMENOrdering Facility: [facility] Address: [address] [place] [address] Performed By: #### 3 1201-7, 48725-1, IPFR ####[facility] [id number] [place] [address] [place] CONSULTon 09-03-2022 CONSULT HNO ID: [id number] Author: Agnes Johnson DO Service: Hematology Author Type: Physician Type: Consults Filed: 09/04/2022 3:29 PM Note Text: PATIENT NAME: Chuckie Villalta CLINIC NO.: [id number] DATE OF SERVICE: September 03, 2022 PRIMARY [...] DIAGNOSTIC THAI (more content not included)... Normal [facility] Comprehensive metabolic 2000 panelon 09-03-2022 Albumin [Mass/Vol] 3.4 g/dL Low 3.9-4.9 [facility] Comment on above: Order Comment: Noe [place]rid Type: BLOOD SPECIMEN [facility] Address: [address] [place] [address] Performed By: #### 5 0189-0, , 2132-03 #### [facility] CLIA [id number] [address] [place] [address] [place] ALP [Catalytic activity/Vol] 99 U/L Normal 38-113 [facility] Comment on above: Order Comment: Noe mdarid Type: BLOOD SPECIMEN [facility] Address: [address] [place] [address] Performed By: #### 5 0189-0, , 2132-03 #### [facility] CLIA [id number] [address] [place] [address] [place] ALT [Catalytic activity/Vol] 113 U/L High 10-54 [facility] Comment on above: Order Comment: Louiei mercy Type: BLOOD SPECIMEN [facility] Address: [address] Performed By: #### 5 0189-0, , 2132-03 #### [facility] CLIA [id number] [address] [place] [address] [place] Anion gap [Moles/Vol] 10 mmol/L Normal 9-18 [facility] Comment on above: Order Comment: Speci men Type: BLOOD SPECIMEN [facility] Address: [address] [place], [place] [address] Performed By: #### 5 0189-0, 81655-0, 2132-03 #### [facility] CLIA [id number] [address] [place] [address] [place] AST [Catalytic activity/Vol] 114 U/L High 14-40 [facility] Comment on above: Order Comment: Speci men Type: BLOOD SPECIMEN [facility] Address: [address] [place] [address] Performed By: #### 5 0189-0, , 2132-03 #### [facility] CLIA [id number] [address] [place] [address] [place] Bilirubin [Mass/Vol] 5.9 mg/dL High 0.2-1.3 [facility] Comment on above: Order Comment: Speci men Type: BLOOD SPECIMEN [facility] Address: [address] [place], [place] [address] Performed By: #### 5 0189-0, , 2132-03 #### [facility] CLIA [id number] [address] [place] [address] [place] Calcium [Mass/Vol] 8.6 mg/dL Normal 8.5-10.2 [facility] Comment on above: Order Comment: Speci men Type: BLOOD SPECIMEN [facility] Address: [address] [place], [place] [address] Performed By: #### 5 0189-0, , 2132-03 #### [facility] CLIA [id number] [address] [place] [address] [place] Chloride [Moles/Vol] 103 mmol/L Normal 97-105 [facility] Comment on above: Order Comment: Speci men Type: BLOOD SPECIMEN [facility] Address: [address] [place] [address] Performed By: #### 5 0189-0, 94008-9, 2132-03 #### [facility] CLIA [id number] [address] [place] [address] [place] CO2 [Moles/Vol] 22 mmol/L Normal 22-30 [facility] Comment on above: Order Comment: Speci men Type: BLOOD SPECIMEN [facility] Address: [address] [place], [place] [address] Performed By: #### 5 0189-0, 57145-4, 2132-03 #### [facility] CLIA [id number] [address] [place] [address] [facility] Creatinine [Mass/Vol] 1.15 mg/dL Normal 0.73-1.22 [facility] Comment on above: Order Comment: Speci men Type: BLOOD SPECIMEN [facility] Address: [address] [place], [place] [address] Performed By: #### 5 0189-0, , 2132-03 #### [facility] CLIA [id number] [address] [place] [address] [place] ESTIMATED GLOMERULAR FILTRATION RATE 85 mL/min/1.73m??? Normal >=60 [facility] Comment on above: Order Comment: Speci men Type: BLOOD SPECIMEN [facility] Address: [address] [place], [place] [address] Result Comment: Brenda mated Glomerular Filtration Rate [...] By: #### 5 0189-0, , 2132-03 #### [facility] CLIA [id number] [address] [place] [id number] [place] Glucose [Mass/Vol] 125 mg/dL High 74-99 [facility] Comment on above: Order Comment: Noe madrid Type: BLOOD SPECIMEN [facility] Address: [address] [place] [address] Result Comment: The [place] Diabetes Association (ADA) provides guidance for cutoff [...] Standards of Medical Care in Diabetes 2016, [place] [employer]. Diabetes Care. 2016.39(Suppl 1). Performed By: #### 5 0189-0, , 2132-03 #### [facility] CLIA [id number] [address] [place] [address] [place] Potassium [Moles/Vol] 3.5 mmol/L Low 3.7-5.1 [facility] Comment on above: Order Comment: Noe [place] Type: BLOOD SPECIMEN [facility] Address: [address] [place] [address] Performed By: #### 5 0189-0, , 2132-03 #### [facility] CLIA [id number] [address] [address] [place] Protein [Mass/Vol] 5.9 g/dL Low 6.3-8.0 [facility] Comment on above: Order Comment: Speci men Type: BLOOD SPECIMEN [facility] Address: [address] Performed By: #### 5 0189-0, , 2132-03 #### [facility] CLIA [id number] [address] [place] [address] [place] Sodium [Moles/Vol] 135 mmol/L Low 136-144 [facility] Comment on above: Order Comment: Speci men Type: BLOOD SPECIMEN [facility] Address: [address] [place], [place] [address] Performed By: #### 5 0189-0, , 2132-03 #### [facility] CLIA [id number] [address] [place] [address] [place] Urea nitrogen [Mass/Vol] 8 mg/dL Low 9-24 [facility] Comment on above: Order Comment: Speci men Type: BLOOD SPECIMEN [facility] Address: [address] [place] [address] Performed By: #### 5 0189-0, , 2132-03 #### [facility] CLIA [id number] [address] [place] [address] [place] Creatinine Unsp time (U) [Ma ss/Vol]on 09-03-2022 Creatinine (U) [Mass/Vol] 75.6 mg/dL Normal 20.0-300.0 [facility] Comment on above: Order Comment: Speci men Type: BLOOD SPECIMEN [facility] Address: [address] [place], [place] [address] Performed By: #### 5 763-8, COPPER #### [facility] CLIA [id number] [address] [place] [address] [place] HISTORY PHYSICALon HISTORY PHYSICAL HNO ID: [id number] Author: Howard Shepherd MD Service: Radiology Author [...] September 03, 2022 TIME: 12:52 PM PAGER: [phone] Normal [facility] HIV 1+2 Ab IA Qlon 3 HIV 1 and 2 Ab IA.rapid Nom Normal [facility] Comment on above: Order Comment: Speci men Type: BLOOD SPECIMENOrdering Facility: [facility] Address: [address] [place] [id number] Result Comment: Test not indicated. Performed By: #### 3 1201-7, 07696-7, IPFR ####[facility] [id number] [facility] [id number] [place] [address] [place] HIV 1+2 Ab+HIV1 p24 Ag IA Ql Non-Reactive Normal Nonreactive [facility] Comment on above: Order Comment: Speci men Type: BLOOD SPECIMENOrdering Facility: [facility] Address: [address] [place] [address] Performed By: #### 3 1201-7, 36801-7, IPFR ####[facility] [id number] [place] [address] [place] HIVINT Normal [facility] Comment on above: Order Comment: Speci men Type: BLOOD SPECIMENOrdering Facility: [facility] Address: [address] [place] [address] Result Comment: No e vidence of HIV-1 or HIV-2 infection. Should recent infection be suspected, repeat testing may be considered 2-3 weeks after this draw. [place] Rev. Code 3701.243(E): This information has been [...] or diagnoses. Performed By: #### 3 1201-7, 97003-3, IPFR ####[facility] [id number] [place] [address] [place] IMMATURE PLATELET FRACTIONon 09-03-2022 Platelets reticulated/100 platelets Auto (Bld) 11.9 % High 0.9-7.2 [facility] Comment on above: Order Comment: Speci men Type: BLOOD SPECIMENOrdering Facility: [facility] Address: [address] Performed By: #### 3 1201-7, 29089-0, IPFR ####[facility] [id number] [place] [address] [place] bilirubin panel [Ma ss/Vol]on 09-03-2022 Bilirubin [Mass/Vol] 5.7 mg/dL High 0.2-1.3 [facility] Comment on above: Order Comment: Speci men Type: BLOOD SPECIMEN [facility] Address: [address] [place], [place] [address] Performed By: #### 5 0189-0, , 2132-03 #### [facility] CLIA [id number] [address] [place] [address] [place] Bilirubin.conjugated [Mass/Vol] 4.2 mg/dL High <0.2 [facility] Comment on above: Order Comment: Speci men Type: BLOOD SPECIMEN [facility] Address: [address] [place] [address] Performed By: #### 5 0189-0, , 2132-03 #### [facility] CLIA [id number] [address] [place] [address] [place] Bilirubin.indirect [Mass/Vol] 1.5 mg/dL High <1.4 [facility] Comment on above: Order Comment: Speci men Type: BLOOD SPECIMEN [facility] Address: [address] [place] [address] Performed By: #### 5 0189-0, , 2132-03 #### [facility] CLIA [id number] [address] [place] [address] [place] PT EDon 09-03-2022 PT ED HNO ID: [id number] Author: Kia Lyon RN Service: Nursing Author [...] RN In Department: HOSP MAIN G100 Normal [facility] Platelets Auto (Bld) [#/Vol] on 09-03-2022 Platelets (Bld) [#/Vol] 38 10*3/uL Low 150-400 [facility] Comment on above: Order Comment: Speci men Type: BLOOD SPECIMEN [facility] Address: [address] [place] [address] Result Comment: No c lot detected. Performed By: #### 5 763-8, COPPER #### [facility] CLIA [id number] [address] [facility] [address] SURGICAL PATHOLOGYon 023 ADDENDUM 1: Normal [facility] Comment on above: Order Comment: Speci men Type: TISSUE SPECIMENOrdering Facility: [facility] Address: [address] [place] [address] Result Comment: This addendum is issued to [...] been determined by the performing laboratory within [facility]???s [facility] [place] ([facility], [facility], [facility], [facility] [facility], [facility], or [facility]) in a manner consistent with CLIA [...] at 4:39 PM Performed By: #### S ####[facility] LABCLIA [id number] [address] [place] CASE REPORT Normal [facility] Comment on above: Order Comment: Noe [place] Type: TISSUE SPECIMENOrdering Facility: [facility] Address: [address] [place] [address] Result Comment: Surg ica Pathology Report Case: [id number] Authorizing Provider: Howard Shepherd MD Collected: 09/03/2022 02:35 PM Ordering Location: [place] [address] Received: 09/03/2022 03:04 PM Pathologist: August Oh MD Specimen: LIVER TRANSPLANT BIOPSY Performed By: #### S ####[facility]CLIA [id number] [address] CLINICAL HISTORY s/p liver transplant , elevated LFT's, history of rejection. Normal [facility] Comment on above: Order Comment: [place]e [place] Type: TISSUE SPECIMENOrdering Facility: [facility] Address: [address] [place] [address] Performed By: #### S ####[facility] LABIA [id number] [address] OF [facility] DIAGNOSIS COMMENT Normal [facility] Comment on above: Order Comment: Noe [place] Type: TISSUE SPECIMENOrdering Facility: [facility] Address: [address] [place] [address] Result Comment: The trichrome stain confirms the [...] been determined by the performing laboratory within [facility]???s [facility] Pathology and Laboratory Medicine [place] ([facility], [facility], [facility], [facility], [facility], or [facility]) in a manner consistent with CLIA requirements. One or more of these tests have not been cleared or approved by the FDA. [facility] is regulated under CLIA as qualified to perform high-complexity testing. These tests are used for clinical purposes. They should not be regarded as investigational or for research. Positive and negative controls stain appropriately. Performed By: #### S ####[facility] LABCLIA [id number] [address] FINAL DIAGNOSIS Normal [facility] Comment on above: Order Comment: Speci men Type: TISSUE SPECIMENOrdering Facility: [facility] Address: [address] [place] [address] Result Comment: Live r allograft, approximately 4 years 2 months post-transplantation, biopsy: - Liver parenchyma with reactive/regenerative change and focal portal change, indeterminate for T-cell mediated rejection (acute cellular rejection). Performed By: #### S ####[facility] LABCLIA [id number] [address] [place] FINAL PERFORMING LAB Normal [facility] Comment on above: Order Comment: Speci men Type: TISSUE SPECIMENOrdering Facility: [facility] Address: [address] [place] [address] Result Comment: Diag nostic interpretation performed at [facility], [address] [place] [address] CLIA# [id number] Laminating Press Operator: Jony Gallegos M.D. Performed By: #### S ####[facility] LABCLIA [id number] [place] [address] [place] GROSS DESCRIPTION Normal [facility] Comment on above: Order Comment: Speci men Type: TISSUE SPECIMENOrdering Facility: [facility] Address: [address] [place] [address] Result Comment: A. L IVER TRANSPLANT BIOPSY Received in formalin is one segment of cylindrical tissue measuring 1.7 x 0.1 x 0.1 cm, montanez-orange and of a soft and friable consistency. Totally submitted in one cassette. BC September 03, 2022 5:19 PM Gross examination performed at [facility], [address] [place] [address] Performed By: #### S ####[facility] LABCLIA [id number] [place] [address] [place] Sodium ?Tm Ur-sCncon 023 Sodium Unsp time (U) [Moles/Vol] 82 mmol/L Normal 14-216 [facility] Comment on above: Order Comment: Speci men Type: BLOOD SPECIMEN [facility] Address: [address] [place] [address] Performed By: #### 5 763-8, COPPER #### [facility] CLIA [id number] [address] [place] [address] [place] TOX SCREEN ROUT URon 023 Amphetamines Confirm (U) [Mass/Vol] Negative Normal Negative [facility] Comment on above: Order Comment: Speci men Type: BLOOD SPECIMEN [facility] Address: [address] [place] [address] Result Comment: Cuto ff threshold at 1000 ng/mL. Performed By: #### 5 763-8, COPPER #### [facility] CLIA [id number] [facility] [place] [address] [place] BARBITURATES, URINE Negative Normal Negative [facility] Comment on above: Order Comment: Speci men Type: BLOOD SPECIMEN [facility] Address: [address] [place] [address] Result Comment: Cuto ff threshold at 200 ng/mL. Performed By: #### 5 763-8, COPPER #### [facility] CLIA [id number] [address] [place] [address] [place] BENZODIAZEPINES, UR Negative Normal Negative [facility] Comment on above: Order Comment: Speci men Type: BLOOD SPECIMEN [facility] Address: [address] [place] [address] Result Comment: Cuto ff threshold at 200 ng/mL. Performed By: #### 5 763-8, COPPER #### [facility] CLIA [id number] [address] [place] [address] [place] CANNABINOIDS,URINE Negative Normal Negative [facility] Comment on above: Order Comment: Speci men Type: BLOOD SPECIMEN [facility] Address: [address] [place] [address] Result Comment: Cuto ff threshold at 50 ng/mL. Performed By: #### 5 763-8, COPPER #### [facility] CLIA [id number] [address] [place] [address] [place] Cocaine Ql (U) Negative Normal Negative [facility] Comment on above: Order Comment: Speci men Type: BLOOD SPECIMEN [facility] Address: [address] [place] [address] Result Comment: Cuto ff threshold at 300 ng/mL. Performed By: #### 5 763-8, COPPER #### [facility] CLIA [id number] [address] [place] [address] [place] Ethanol (U) [Mass/Vol] <11 Normal <11 [facility] Comment on above: Order Comment: Speci men Type: BLOOD SPECIMEN [facility] Address: [address] [place] [address] Performed By: #### 5 763-8, COPPER #### [facility] CLIA [id number] [address] [place] [address] [place] Opiates Screen Ql (U) Positive Abnormal Negative [facility] Comment on above: Order Comment: Speci men Type: BLOOD SPECIMEN [facility] Address: [address] [place] [address] Result Comment: Cuto ff threshold at 300 ng/mL. Performed By: #### 5 763-8, COPPER #### [facility] CLIA [id number] [address] [place] [address] [place] oxyCODONE cutoff Screen (U) [Mass/Vol] Negative Normal Negative [facility] Comment on above: Order Comment: Speci men Type: BLOOD SPECIMEN [facility] Address: [address] [place] [address] Result Comment: Cuto ff threshold at 100 ng/mL. Performed By: #### 5 763-8, COPPER #### [facility] CLIA [id number] [address] [place] [address] [place] Phencyclidine Ql (U) Negative Normal Negative [facility] Comment on above: Order Comment: Speci men Type: BLOOD SPECIMEN [facility] Address: [address] [place] [address] Result Comment: Cuto ff threshold at 25 ng/mL. Performed By: #### 5 763-8, COPPER #### [facility] CLIA [id number] [address] [place] [address] [place] TYPE + SCREENon 09-03-2022 ABO A Normal [facility] Comment on above: Order Comment: Speci men Type: BLOOD SPECIMENOrdering Facility: [facility] Address: [address] [place] [address] Performed By: #### T SCR ####[facility] BANKCLIA [id number] [address] HISTORICAL AB SCR STATUS Positive Abnormal [facility] Comment on above: Order Comment: Speci men Type: BLOOD SPECIMENOrdering Facility: [facility] Address: [address] [place] [address] Performed By: #### T SCR ####[facility]LO[facility] BANKCLIA [id number] [address] [place] Rh Nom (Bld) Negative Normal [facility] Comment on above: Order Comment: Speci men Type: BLOOD SPECIMENOrdering Facility: [facility] Address: [address] [place] [address] Performed By: #### T SCR ####[facility] BLOOD BANKCLIA [id number] [address] [place] TYPE AND SCREEN EXPIRATION 09/06/2022 23:59 Normal [facility] Comment on above: Order Comment: Speci men Type: BLOOD SPECIMENOrdering Facility: [facility] Address: [address] [place] [address] Performed By: #### T SCR ####[facility] BLOOD BANKCLIA [id number] [place] [address] [place] Tacrolimus Bld-mCncon 2022 Tacrolimus (Bld) [Mass/Vol] 9.2 ng/mL Normal 5.0-20.0 [facility] Comment on above: Order Comment: Speci men Type: BLOOD SPECIMEN [facility] Address: [address] [place] [address] Result Comment: Thes e reference ranges are [...] Test performed by chemiluminescent immunoassay using Schuler Sash Installer. Performed By: #### 5 0189-0, 45716-8, 2132-9 #### [facility] CLIA [id number] [address] [place] [address] OF [facility] US BIOPSY LIVERon 09-03-2022 US BIOPSY LIVER * * *Final Report* * * DATE OF EXAM: Sep 03 2022 4:01PM [facility] 1073 - US BIOPSY LIVER / PROCEDURE [...] history of rejection. STAFF RADIOLOGIST: Dr. Shepherd HOGSHEAD HAND(S): None CONSENT: The risks, benefits, treatment options, [...] performed by the: attending radiologist, without an retail store assistant. The attending radiologist performed the following [...] ULTRASOUND GUIDED RANDOM LIVER TRANSPLANT BIOPSY DESCRIBED Business Account Manager: GUILLE Transcribe Date/Time: Sep 03 2022 5:36P Dictated by : HOWARD HSEPHERD MD This examination was interpreted and the report reviewed and electronically signed by: HOWARD SHEPHERD MD on Sep 03 2022 5:38PM EST [id number] Normal [facility] Urinalysis complete panel (U )on 09-03-2022 Bilirubin Ql (U) 1+ Abnormal Negative [facility] Comment on above: Order Comment: Speci men Type: BLOOD SPECIMEN [facility] Address: [address] [place] [address] Result Comment: Sugg est correlation with clinical findings and serum bilirubin if clinically indicated. Performed By: #### 2 4323-8 #### [facility] CLIA [id number] [address] [place] [address] [place] Clarity (Unsp spec) Clear Normal Clear [facility] Comment on above: Order Comment: Speci men Type: BLOOD SPECIMEN [facility] Address: [address] [place] [address] Performed By: #### 2 4323-8 #### [facility] CLIA [id number] [address] [place] [address] [place] Color (U) Yellow Normal Yellow [facility] Comment on above: Order Comment: Speci men Type: BLOOD SPECIMEN [facility] Address: [address] Performed By: #### 2 4323-8 #### [facility] CLIA [id number] [address] [place] [address] [place] Glucose Test strip (U) [Mass/Vol] Negative Normal Trace, Negative [facility] Comment on above: Order Comment: Speci men Type: BLOOD SPECIMEN [facility] Address: [address] [place] [address] Performed By: #### 2 4323-8 #### [facility] CLIA [id number] [address] [place] [address] [place] Hemoglobin Ql (U) Negative Normal Negative, Trace [facility] Comment on above: Order Comment: Speci men Type: BLOOD SPECIMEN [facility] Address: [address] [place] [address] Performed By: #### 2 4323-8 #### [facility] CLIA [id number] [address] [place] [address] [place] Ketones Ql (U) 1+ Abnormal Trace, Negative [facility] Comment on above: Order Comment: Speci men Type: BLOOD SPECIMEN [facility] Address: [address] [place], [place] [address] Performed By: #### 2 4323-8 #### [facility] CLIA [id number] [address] [place] [address] [place] Leukocyte esterase Test strip Ql (U) Negative Normal Negative, 25 Daniel/uL [facility] Comment on above: Order Comment: Speci men Type: BLOOD SPECIMEN [facility] Address: [address] [place], [place] [address] Performed By: #### 2 4323-8 #### [facility] CLIA [id number] [address] [place] [address] [place] Nitrite Ql (U) Negative Normal Negative [facility] Comment on above: Order Comment: Speci men Type: BLOOD SPECIMEN [facility] Address: [address] [place] [address] Performed By: #### 2 4323-8 #### [facility] CLIA [id number] [address] [place] [address] [place] pH (U) 6.0 [pH] Normal 5.0-8.0 [facility] Comment on above: Order Comment: Speci men Type: BLOOD SPECIMEN [facility] Address: [address] [place] [address] Performed By: #### 2 4323-8 #### [facility] CLIA [id number] [address] [place] [address] [place] Protein (U) [Mass/Vol] Trace Normal Trace , Negative [facility] Comment on above: Order Comment: Speci men Type: BLOOD SPECIMEN [facility] Address: [address] [place] [address] Performed By: #### 2 4323-8 #### [facility] CLIA [id number] [address] [place] [address] [place] RBC LM.HPF (Urine sed) [#/Area] 0-3 /HPF Normal 0-3 /HPF [facility] Comment on above: Order Comment: Speci men Type: BLOOD SPECIMEN [facility] Address: [address] [place], [place] [address] Performed By: #### 2 4323-8 #### [facility] CLIA [id number] [address] [place] [address] [place] Specific gravity (U) [Rel density] 1.009 Normal 1.005-1.030 [facility] Comment on above: Order Comment: Speci men Type: BLOOD SPECIMEN [facility] Address: [address] [place], [place] [address] Performed By: #### 2 4323-8 #### [facility] CLIA [id number] [address] [place] [address] [place] Urobilinogen Ql (U) 1+ Abnormal Negative [facility] Comment on above: Order Comment: Speci men Type: BLOOD SPECIMEN [facility] Address: [address] [place] [address] Performed By: #### 2 4323-8 #### [facility] CLIA [id number] [address] [place] [address] [place] WBC LM.HPF (Urine sed) [#/Area] 0-5 /HPF Normal 0-5 /HPF [facility] Comment on above: Order Comment: Speci men Type: BLOOD SPECIMEN [facility] Address: [address] [place] [address] Performed By: #### 2 4323-8 #### [facility] CLIA [id number] [address] [place] [address] [place] Vit B12 SerPl-mCncon 023 Cobalamin (Vitamin B12) [Mass/Vol] 802 pg/mL Normal 232-1245 [facility] Comment on above: Order Comment: Speci men Type: BLOOD SPECIMEN [facility] Address: [address] [place] [address] Performed By: #### 5 0189-0, 97918-1, 2132-9 #### [facility] CLIA [id number] [address] [place] [address] [place] ALPHA-1 ANTITRYPSIN GENOon 0 09-02-2022 HA1AT REVIEWED BY Radha [facility] Comment on above: Order Comment: Speci men Type: BLOOD SPECIMENOrdering Facility: [facility] Address: [address] [place] [address] Result Comment: Alph a-1 Antitrypsin Genotyping Laboratory Accession Number: [id number] Result: No Variant Detected in SERPINA1 (PI*MM) [...] two most common pathogenic variants: S (c.863A>T, p.Opx063Ulh, g.67461178), Z (c.1096G>A, p.Lsw287Afa, g.06687330), and the rarer variants: F (c.739C>T, p.Mvl291Cng, g.05600891), I (c.187C>T, p.Ynj26Phr, g.56409897). Limitations: This Laboratory Developed Test (LDT) is [...] developed and its performance characteristics determined by [facility]'s [facility] Pathology and Laboratory Medicine [place] ([facility]). It has not been cleared or approved by the FDA. [facility] is regulated under CLIA as certified to perform high- complexity testing. This test is used for clinical purposes. It should not be regarded as investigational or for research. Testing and interpretation performed at [facility], [address] [place], [place] [address]. CLIA Number: [id number] References: 1) Kun SANTANA, Manjit G, Radha ML, Alexandr M, Domingo CE, K, Tia DK, Edilma WOLFE, Aiden MIRANDA, Luz Maria RayK, Mateusz C, Taina J. The Diagnosis and Management of Alpha-1 Antritrypsin Deficiency in the Adult. Chronic Obstr Pulm Dis. 2016 Dec 30;3:668-682. 2) Tiffanyt JA, Vickey ON, Bossman ER, Jackson DG. a1-Antitrypsin phenotypes and associated serum protein concentrations in a large clinical population. Chest.2013 Oct;143(4):1000-8. 3) Tom Parrish, Jalen NA, Fei CR, Fina FJ, Michel SJ, Agapito AF. Molecular characterisation of three ttnsu-9-qsyaviebuyk deficiency variants: proteinase inhibitor (Pi) nullcardiff (Viq760----Hqh); PiMmalton (Cez87----yivqgjjk) and PiI (Lql02----Zav). Hum Vonnie. 1989 Jun;84(1):55-8. 4) Reg EK and Kun SANTANA. Clinical practice. Alpha1-antitrypsin deficiency. N Engl J Med. 2008Jan 18;360(13)1061-99. 5) Kimi RO, Jovan F, Lindy SANTANA. The significance of the F variant of xkwcj-4-gvycxxnncdp and unique case report of a PiFF homozygote. [facility] Pulm Med. 2014 Mar 02;14:132. 6) Luz Maria THOMPSON, Michelle FL, and Dharmesh Rosado. Alpha-1 Antitrypsin Deficiency. 2005May 22 [Updated 2016August 14]. In: Moises RA, Zacarias MP, Kwan TO, et al., editors. Alphonso [Internet]. [place] ([place]): [facility]; 7974-2022. Available from: http://www.ncbi.nlm.nih.gov/books/LKH0017/ As reviewed by Isabel Breaux, PhD, FACMG Performed By: #### H A1AT ####[facility] LIMSCLIA [id number] [place] [address] [place] LENNY BY IFA WITH REFLEXon Nuclear Ab IF (S) [Titer] Negative Normal Negative [facility] Comment on above: Order Comment: [place] Type: BLOOD SPECIMEN [facility] Address: [address] [place] [address] Result Comment: Anti -nuclear antibody test is used as an aid in diagnosis of systemic autoimmune diseases. Where positive and clinically warranted, follow-up using disease-specific testing is recommended. Low positive titers are not uncommon with advanced age, certain chronic infections, and malignancies among others. Test methodology: Indirect fluorescence immunoassay (IFA) using HEp-2 cells. Performed By: #### 5 763-8, COPPER #### [facility] CLIA [id number] [address] [place] [address] [place] CBC W Ordered Manual Differe ntial panel (Bld)on 09-02-2022 Basophils (Bld) [#/Vol] 10*3/uL Normal <0.11 [facility] Comment on above: Order Comment: [place] Type: BLOOD SPECIMENOrdering Facility: [facility] Address: [address] [place] [address] Performed By: #### S TFREV, 46646-3, [id number] ####[facility]IA [id number] [place] [address] [place] Basophils/100 WBC (Bld) 0.2 % Normal [facility] Comment on above: Order Comment: Speci men Type: BLOOD SPECIMENOrdering Facility: [facility] Address: [address] Performed By: #### S TFRROSA, 33158-2, [id number] ####[facility]CLIA [id number] [place] [address] [place] Differential cell count method Nom (Bld) Auto Normal [facility] Comment on above: Order Comment: Speci men Type: BLOOD SPECIMENOrdering Facility: [facility] Address: [address] Performed By: #### S TFRROSA, 57804-3, [id number] ####[facility]CLIA [id number] [place] [address] [place] Eosinophils (Bld) [#/Vol] 0.05 10*3/uL Normal <0.46 [facility] Comment on above: Order Comment: Speci men Type: BLOOD SPECIMENOrdering Facility: [facility] Address: [address] Performed By: #### S TFRROSA, 97519-0, [id number] ####[facility]CLIA [id number] [place] [address] [place] Eosinophils/100 WBC (Bld) 1.2 % Normal [facility] Comment on above: Order Comment: Speci men Type: BLOOD SPECIMENOrdering Facility: [facility] Address: [address] [place] [address] Performed By: #### S TFRROSA, 87424-1, [id number] ####[facility]CLIA [id number] [place] [address] [place] Erythrocyte distribution width (RBC) [Ratio] 16.9 % High 11.5-15.0 [facility] Comment on above: Order Comment: Speci men Type: BLOOD SPECIMENOrdering Facility: [facility] Address: [address] [place] [address] Performed By: #### S TFREV, 89527-6, [id number] ####[facility]CLIA [id number] [place] [address] [place] Hematocrit (Bld) [Volume fraction] 36.7 % Low 39.0-51.0 [facility] Comment on above: Order Comment: Speci men Type: BLOOD SPECIMENOrdering Facility: [facility] Address: [address] [place] [address] Performed By: #### S TFREV, 22948-9, [id number] ####[facility]CLIA [id number] [place] [address] [place] Hemoglobin (Bld) [Mass/Vol] 12.9 g/dL Low 13.0-17.0 [facility] Comment on above: Order Comment: Speci men Type: BLOOD SPECIMENOrdering Facility: [facility] Address: [address] [place] [address] Performed By: #### S TFRROSA, 99063-5, [id number] ####[facility]CLIA [id number] [place] [address] [place] Immature granulocytes (Bld) [#/Vol] 0.05 10*3/uL Normal <0.10 [facility] Comment on above: Order Comment: Speci men Type: BLOOD SPECIMENOrdering Facility: [facility] Address: [address] [place] [address] Performed By: #### S TFREV, 71158-3, [id number] ####[facility]CLIA [id number] [place] [address] [place] Immature granulocytes/100 WBC (Bld) 1.2 % Normal [facility] Comment on above: Order Comment: Speci men Type: BLOOD SPECIMENOrdering Facility: [facility] Address: [address] [place] [address] Performed By: #### S TFREV, 95084-6, [id number] ####[facility]CLIA [id number] [address] OF [facility] Lymphocytes (Bld) [#/Vol] 0.31 10*3/uL Low 1.00-4.00 [facility] Comment on above: Order Comment: Speci men Type: BLOOD SPECIMENOrdering Facility: [facility] Address: [address] [place] [address] Performed By: #### S TFREV, 86869-5, [id number] ####[facility]CLIA [id number] [address] [place] Lymphocytes/100 WBC (Bld) 7.4 % Normal [facility] Comment on above: Order Comment: Speci men Type: BLOOD SPECIMENOrdering Facility: [facility] Address: [address] [place] [address] Performed By: #### S TFREV, 40703-7, [id number] ####[facility]CLIA [id number] [address] [place] MCH (RBC) [Entitic mass] 30.0 pg Normal 26.0-34.0 [facility] Comment on above: Order Comment: Speci men Type: BLOOD SPECIMENOrdering Facility: [facility] Address: [address] [place], [place] [address] Performed By: #### S TFREV, 50907-9, [id number] ####[facility] LABCLIA [id number] [place] [address] [place] MCHC (RBC) [Mass/Vol] 35.1 g/dL Normal 30.5-36.0 [facility] Comment on above: Order Comment: Speci men Type: BLOOD SPECIMENOrdering Facility: [facility] Address: [address] [place], [place] [address] Performed By: #### S TFREV, 82322-8, [id number] ####[facility] LABCLIA [id number] [place] [address] [place] MCV (RBC) [Entitic vol] 85.3 fL Normal 80.0-100.0 [facility] Comment on above: Order Comment: Speci men Type: BLOOD SPECIMENOrdering Facility: [facility] Address: [address] [place] [address] Performed By: #### S TFREV, 44883-4, [id number] ####[facility] LABCLIA [id number] [place] [address] [place] Monocytes (Bld) [#/Vol] 0.33 10*3/uL Normal <0.87 [facility] Comment on above: Order Comment: Speci men Type: BLOOD SPECIMENOrdering Facility: [facility] Address: [address] Performed By: #### S TFREV, 21196-5, [id number] ####[facility] LABCLIA [id number] [place] [address] [place] Monocytes/100 WBC (Bld) 7.9 % Normal [facility] Comment on above: Order Comment: Speci men Type: BLOOD SPECIMENOrdering Facility: [facility] Address: [address] [place] [address] Performed By: #### S TFREV, 91232-9, [id number] ####[facility] LABCLIA [id number] [place] [address] [place] Neutrophils (Bld) [#/Vol] 3.42 10*3/uL Normal 1.45-7.50 [facility] Comment on above: Order Comment: Speci men Type: BLOOD SPECIMENOrdering Facility: [facility] Address: [address] [place], [place] [address] Performed By: #### S TFREV, 51893-7, [id number] ####[facility] LABCLIA [id number] [place] [address] [place] Neutrophils/100 WBC (Bld) 82.1 % Normal [facility] Comment on above: Order Comment: Speci men Type: BLOOD SPECIMENOrdering Facility: [facility] Address: [address] [place] [address] Performed By: #### S TFRROSA, 84657-7, [id number] ####[facility] LABCLIA [id number] [place] [address] [place] Nucleated RBC (Bld) [#/Vol] 10*3/uL Normal <0.01 [facility] Comment on above: Order Comment: Speci men Type: BLOOD SPECIMENOrdering Facility: [facility] Address: [address] [place] [address] Performed By: #### S TFRROSA, 79386-3, [id number] ####[facility] LABCLIA [id number] [place] [address] [place] Nucleated RBC/100 WBC (Bld) [Ratio] 0.0 /100 WBC Normal [facility] Comment on above: Order Comment: Speci men Type: BLOOD SPECIMENOrdering Facility: [facility] Address: [address] [place], [place] [address] Performed By: #### S TFRROSA, 27178-8, [id number] ####[facility] LABCLIA [id number] [place] [address] [place] Platelet mean volume (Bld) [Entitic vol] 12.1 fL Normal 9.0-12.7 [facility] Comment on above: Order Comment: Speci men Type: BLOOD SPECIMENOrdering Facility: [facility] Address: [address] [place], [place] [address] Performed By: #### S TFRROSA, 19662-6, [id number] ####[facility] LABCLIA [id number] [place] [address] [place] Platelets (Bld) [#/Vol] 38 10*3/uL Low 150-400 [facility] Comment on above: Order Comment: Speci men Type: BLOOD SPECIMENOrdering Facility: [facility] Address: [address] [place] [address] Result Comment: No c lot detected. Performed By: #### S CECIL, 35422-4, [id number] ####[facility] LABIA [id number] [place] [address] [place] RBC (Bld) [#/Vol] 4.30 10*6/uL Normal 4.20-6.00 [facility] Comment on above: Order Comment: Speci men Type: BLOOD SPECIMENOrdering Facility: [facility] Address: [address] [place] [address] Performed By: #### S CECIL, 45680-4, [id number] ####[facility] LABIA [id number] [place] [address] [place] WBC (Bld) [#/Vol] 4.17 10*3/uL Normal 3.70-11.00 [facility] Comment on above: Order Comment: Speci men Type: BLOOD SPECIMENOrdering Facility: [facility] Address: [address] [place] [address] Performed By: #### S CECIL, 99515-5, [id number] ####[facility] LABIA [id number] [place] [address] [place] CBC panel Auto (Bld)on 09-02 Erythrocyte distribution width (RBC) [Ratio] 16.5 % High 11.5-15.0 [facility] Comment on above: Order Comment: Speci men Type: BLOOD SPECIMENOrdering Facility: [facility] Address: [address] [place] [address] Performed By: #### 5 8410-2, 63509-2 ####[facility] LABCLIA [id number] [place] [address] [place] Hematocrit (Bld) [Volume fraction] 35.5 % Low 39.0-51.0 [facility] Comment on above: Order Comment: Speci men Type: BLOOD SPECIMENOrdering Facility: [facility] Address: [address] [place], [place] [address] Performed By: #### 5 8410-2, 34844-6 ####[facility] LABCLIA [id number] [place] [address] [place] Hemoglobin (Bld) [Mass/Vol] 12.6 g/dL Low 13.0-17.0 [facility] Comment on above: Order Comment: Speci men Type: BLOOD SPECIMENOrdering Facility: [facility] Address: [address] [place], [place] [address] Performed By: #### 5 8410-2, 96760-9 ####[facility] LABCLIA [id number] [place] [address] [place] MCH (RBC) [Entitic mass] 29.9 pg Normal 26.0-34.0 [facility] Comment on above: Order Comment: Speci men Type: BLOOD SPECIMENOrdering Facility: [facility] Address: [address] [place] [address] Performed By: #### 5 8410-2, 49511-1 ####[facility] LABCLIA [id number] [place] [address] [place] MCHC (RBC) [Mass/Vol] 35.5 g/dL Normal 30.5-36.0 [facility] Comment on above: Order Comment: Speci men Type: BLOOD SPECIMENOrdering Facility: [facility] Address: [address] [place], [place] [address] Performed By: #### 5 8410-2, 82389-9 ####[facility] LABCLIA [id number] [place] [address] [place] MCV (RBC) [Entitic vol] 84.1 fL Normal 80.0-100.0 [facility] Comment on above: Order Comment: Speci men Type: BLOOD SPECIMENOrdering Facility: [facility] Address: [address] [place] [address] Performed By: #### 5 8410-2, 99493-5 ####[facility] LABIA [id number] [place] [address] [place] Nucleated RBC (Bld) [#/Vol] 10*3/uL Normal <0.01 [facility] Comment on above: Order Comment: Speci men Type: BLOOD SPECIMENOrdering Facility: [facility] Address: [address] [place] [address] Performed By: #### 5 8410-2, 86867-1 ####[facility] [id number] [place] [address] [place] Platelet mean volume (Bld) [Entitic vol] 11.7 fL Normal 9.0-12.7 [facility] Comment on above: Order Comment: Speci men Type: BLOOD SPECIMENOrdering Facility: [facility] Address: [address] [place] [address] Performed By: #### 5 8410-2, 45575-7 ####[facility] LABIA [id number] [address] [place] Platelets (Bld) [#/Vol] 40 10*3/uL Low 150-400 [facility] Comment on above: Order Comment: Speci men Type: BLOOD SPECIMENOrdering Facility: [facility] Address: [address] [place] [address] Result Comment: Resu lts checked and verified.No clot detected. Performed By: #### 5 8410-2, 50702-5 ####[facility] LABIA [id number] [place] [address] [place] RBC (Bld) [#/Vol] 4.22 10*6/uL Normal 4.20-6.00 [facility] Comment on above: Order Comment: Speci men Type: BLOOD SPECIMENOrdering Facility: [facility] Address: [address] [place] [address] Performed By: #### 5 8410-2, 39761-5 ####[facility] LABCLIA [id number] [place] [address] [place] WBC (Bld) [#/Vol] 4.69 10*3/uL Normal 3.70-11.00 [facility] Comment on above: Order Comment: Speci men Type: BLOOD SPECIMENOrdering Facility: [facility] Address: [address] [place] [address] Performed By: #### 5 8410-2, 62423-6 ####[facility] LABCLIA [id number] [place] [address] [place] CMV DNA DETECTION AND QUANTo n 09-02-2022 CMV DNA NOLBERTO+probe Qn (P) Not detected Normal Not Detected [facility] Comment on above: Order Comment: Speci men Type: BLOOD SPECIMENOrdering Facility: [facility] Address: [address] [place] [address] Performed By: #### C MVQNT ####[facility] LABCLIA [id number] [place] [address] [place] Ceruloplasmin SerPl-mCncon 0 09-02-2022 Ceruloplasmin [Mass/Vol] 17 mg/dL Normal 15-30 [facility] Comment on above: Order Comment: Speci men Type: BLOOD SPECIMEN [facility] Address: [address] [place] [address] Performed By: #### V ITB6 #### REPLACED BY [facility] CLIA [id number] [address] [place] [address] Comprehensive metabolic 2000 panelon 09-02-2022 Albumin [Mass/Vol] 3.7 g/dL Low 3.9-4.9 [facility] Comment on above: Order Comment: Speci men Type: BLOOD SPECIMEN [facility] Address: [address] [place] [address] Performed By: #### 5 763-8, COPPER #### [facility] CLIA [id number] [address] [place] [address] [place] ALP [Catalytic activity/Vol] 98 U/L Normal 38-113 [facility] Comment on above: Order Comment: Speci men Type: BLOOD SPECIMEN [facility] Address: [address] [place] [address] Performed By: #### 5 763-8, COPPER #### [facility] CLIA [id number] [address] [place] [address] [place] ALT [Catalytic activity/Vol] 175 U/L High 10-54 [facility] Comment on above: Order Comment: Speci men Type: BLOOD SPECIMEN [facility] Address: [address] [place] [address] Performed By: #### 5 763-8, COPPER #### [facility] CLIA [id number] [address] [place] [address] [place] Anion gap [Moles/Vol] 13 mmol/L Normal 9-18 [facility] Comment on above: Order Comment: Speci men Type: BLOOD SPECIMEN [facility] Address: [address] [place], [place] [address] Performed By: #### 5 763-8, COPPER #### [facility] CLIA [id number] [address] [place] [address] [place] AST [Catalytic activity/Vol] 318 U/L High 14-40 [facility] Comment on above: Order Comment: Speci men Type: BLOOD SPECIMEN [facility] Address: [address] Performed By: #### 5 763-8, COPPER #### [facility] CLIA [id number] [address] [place] [address] [place] Bilirubin [Mass/Vol] 10.9 mg/dL High 0.2-1.3 [facility] Comment on above: Order Comment: Speci men Type: BLOOD SPECIMEN [facility] Address: [address] Performed By: #### 5 763-8, COPPER #### [facility] CLIA [id number] [address] [place] [address] [place] Calcium [Mass/Vol] 8.9 mg/dL Normal 8.5-10.2 [facility] Comment on above: Order Comment: Speci men Type: BLOOD SPECIMEN [facility] Address: [address] Performed By: #### 5 763-8, COPPER #### [facility] CLIA [id number] [address] [place] [address] [place] Chloride [Moles/Vol] 99 mmol/L Normal 97-105 [facility] Comment on above: Order Comment: Speci men Type: BLOOD SPECIMEN [facility] Address: [address] [place] [address] Performed By: #### 5 763-8, COPPER #### [facility] CLIA [id number] [address] [place] [address] [place] CO2 [Moles/Vol] 20 mmol/L Low 22-30 [facility] Comment on above: Order Comment: Speci men Type: BLOOD SPECIMEN [facility] Address: [address] Performed By: #### 5 763-8, COPPER #### [facility] CLIA [id number] [address] [place] [address] [place] Creatinine [Mass/Vol] 1.18 mg/dL Normal 0.73-1.22 [facility] Comment on above: Order Comment: [place] Type: BLOOD SPECIMEN [facility] Address: [address] [place] [address] Performed By: #### 5 763-8, COPPER #### [facility] CLIA [id number] [facility] [place] [address] [place] ESTIMATED GLOMERULAR FILTRATION RATE 82 mL/min/1.73m??? Normal >=60 [facility] Comment on above: Order Comment: [place]e [place] Type: BLOOD SPECIMEN [facility] Address: [address] [place] [address] Result Comment: Brenda mated Glomerular Filtration Rate [...] Performed By: #### 5 763-8, COPPER #### [facility] CLIA [id number] [address] [place] [address] [place] Glucose [Mass/Vol] 106 mg/dL High 74-99 [facility] Comment on above: Order Comment: [place]e [place] Type: BLOOD SPECIMEN [facility] Address: [address] [place] [address] Result Comment: The [place] Diabetes Association (ADA) provides guidance for cutoff [...] Standards of Medical Care in Diabetes 2016, [place] [employer] Association. Diabetes Care. 2016.39(Suppl 1). Performed By: #### 5 763-8, COPPER #### [facility] CLIA [id number] [address] [place] [address] [place] Potassium [Moles/Vol] 3.7 mmol/L Normal 3.7-5.1 [facility] Comment on above: Order Comment: Speci men Type: BLOOD SPECIMEN [facility] Address: [address] Performed By: #### 5 763-8, COPPER #### [facility] CLIA [id number] [facility] [place] [address] [place] Protein [Mass/Vol] 6.0 g/dL Low 6.3-8.0 [facility] Comment on above: Order Comment: Speci men Type: BLOOD SPECIMEN [facility] Address: [address] Performed By: #### 5 763-8, COPPER #### [facility] CLIA [id number] [address] [place] [address] [place] Sodium [Moles/Vol] 132 mmol/L Low 136-144 [facility] Comment on above: Order Comment: Speci men Type: BLOOD SPECIMEN [facility] Address: [address] [place] [address] Performed By: #### 5 763-8, COPPER #### [facility] CLIA [id number] [address] [place] [address] [place] Urea nitrogen [Mass/Vol] 8 mg/dL Low 9-24 [facility] Comment on above: Order Comment: Speci men Type: BLOOD SPECIMEN [facility] Address: [address] [place] [address] Performed By: #### 5 763-8, COPPER #### [facility] CLIA [id number] [address] [place] [address] [place] EBV capsid IgM Qn (S)on EBV VCA IGM, QUAL Negative Normal Negative [facility] Comment on above: Order Comment: Speci men Type: BLOOD SPECIMENOrdering Facility: [facility] Address: [address] [place] [address] Result Comment: No s erological evidence of recent EBV infection. Performed By: #### 7 886-5, 2284-8, VZVG2 ####[facility] LABCLIA [id number] [place] [address] [place] CLARK IRENE PANELon 023 EBV NA AB, QUAL Positive Abnormal Negative [facility] Comment on above: Order Comment: Speci men Type: BLOOD SPECIMEN [facility] Address: [address] [place] [address] Performed By: #### 2 4323-8 #### [facility] CLIA [id number] [address] [place] [address] [place] EBV VCA IGG, QUAL Positive Abnormal Negative [facility] Comment on above: Order Comment: Speci men Type: BLOOD SPECIMEN [facility] Address: [address] Performed By: #### 2 4323-8 #### [facility] CLIA [id number] [address] [place] [address] [place] EBV VCA IGM, QUAL Negative Normal Negative [facility] Comment on above: Order Comment: Speci men Type: BLOOD SPECIMEN [facility] Address: [address] Performed By: #### 2 4323-8 #### [facility] CLIA [id number] [address] [place] [address] [place] INTERPRETATION (EBVPNL) Past Infection. EBV panel interpretation is a general guide that is meant to capture most, but not all, of the possible clinical scenarios. Non-specific reactivities are not uncommon especially with equivocal results. Should the overall interpretation not be consistent with the clinical picture, please contact the medical biller/coder of the test for assistance. Normal [facility] Comment on above: Order Comment: Speci men Type: BLOOD SPECIMEN [facility] Address: [address] [place] [address] Performed By: #### 2 4323-8 #### [facility] CLIA [id number] [address] [place] [address] [place] Ferritin SerPl-ncon 2022 Ferritin [Mass/Vol] 345.0 ng/mL Normal 30.3-565.7 [facility] Comment on above: Order Comment: Speci [facility] Type: BLOOD SPECIMEN [facility] Address: [address] [place] [address] Performed By: #### V ITB6 #### [facility] [place] [id number] [address] [place] [address] Fibrinogen PPP-ncon 2022 Fibrinogen Coag (PPP) [Mass/Vol] 442 mg/dL High 200-400 [facility] Comment on above: Order Comment: Speci [facility] Type: BLOOD SPECIMEN [facility] Address: [address] [place] [address] Performed By: #### V ITB6 #### [facility] CLIA [id number] [address] [place] [address] Folate SerPl-ncon 09-02-19 Folate [Mass/Vol] 13.7 ng/mL Normal >4.7 [facility] Comment on above: Order Comment: Speci men Type: BLOOD SPECIMENOrdering Facility: [facility] Address: [address] [place] [address] Performed By: #### 7 886-5, 2284-8, VZVG2 ####[facility] LABCLIA [id number] [place] [address] [place] HAV IgM Ser Qlon 09-02-2022 HAV IgM Ql (S) Negative Normal Negative [facility] Comment on above: Order Comment: Speci men Type: BLOOD SPECIMENOrdering Facility: [facility] Address: [address] [place] [address] Result Comment: No e vidence of recent infection with Hepatitis A virus. Performed By: #### 2 532-0, 5195-3, 87266-8, ####[facility] LABCLIA [id number] [place] [address] [place] HBV core IgM Ser Qlon 2022 HBV core IgM Ql (S) Negative Normal Negative [facility] Comment on above: Order Comment: Speci men Type: BLOOD SPECIMENOrdering Facility: [facility] Address: [address] [place] [address] Result Comment: No e vidence of recent infection with Hepatitis B virus. Should recent infection be suspected, repeat testing may be considered 3-4 weeks after this draw. Performed By: #### 2 532-0, 5195-3, 77404-0, ####[facility] LABCLIA [id number] [place] [address] [place] HBV surface Ag Ser Qlon HBV surface Ag Ql (S) Negative Normal Negative [facility] Comment on above: Order Comment: Speci [facility] Type: BLOOD SPECIMENOrdering Facility: [facility] Address: [address] [place] [address] Performed By: #### 2 532-0, 5195-3, 25826-2, ####[facility] LABCLIA [id number] [place] [address] [place] HCV RNA SerPl NOLBERTO+probe-[facility] on 02-07-2023 HCV RNA NOLBERTO+probe Qn Not detected Normal HCV RNA not detected by PCR. [facility] Comment on above: Order Comment: Speci men Type: BLOOD SPECIMEN [facility] Address: [address] [place] [address] Performed By: #### 5 763-8, COPPER #### [facility] CLIA [id number] [address] [facility] [id number] HEP DELTA ABon 09-02-2022 HEP DELTA AB Negative Normal Negative [facility] Comment on above: Order Comment: Speci men Type: BLOOD SPECIMENOrdering Facility: [facility] Address: [address] [place] [address] Result Comment: No a ntibody to Hepatitis Delta agent was detected. Order anti-HDV testing only when Hepatitis B virus infection has been confirmed. INTERPRETIVE INFORMATION: Hepatitis Delta Ab This test was developed and its performance characteristics determined by [facility]. It has not been cleared or approved by the [place] Food and Drug Administration. This test was performed in a CLIA certified laboratory and is intended for clinical purposes. Performed by [facility], [address] [id number] [email or web address], Mic Rangel MD, PHD, Lab. Director Performed By: #### A HD ####[facility] [id number] [place] [address] HEPATITIS E VIRUS ABon 09-02 HEV IGG Not detected Normal [facility] Comment on above: Order Comment: Speci men Type: BLOOD SPECIMENOrdering Facility: [facility] Address: [address] [place] [address] Performed By: #### H EPE ####[facility] [id number] [place] [facility] [address] HEV IGM Not detected Normal [facility] Comment on above: Order Comment: Speci men Type: BLOOD SPECIMENOrdering Facility: [facility] Address: [address] [place] [address] Result Comment: REFE RENCE RANGE: NOT DETECTED [...] analytical performance characteristics have been determined by [facility]. It has not been cleared or approved by FDA. This assay has been validated pursuant to the CLIA regulations and is used for clinical purposes. Performed By: #### H EPE ####[facility] [id number] [facility] [address] HISTORY PHYSICALon 3 HISTORY PHYSICAL HNO ID: [id number] Author: Carolin Crawford MD Service: Hepatology Author Type: Physician Type: HANDP Filed: 09/03/2022 5:06 PM Note Text: Department of Gastroenterology AND Hepatology Initial Consult Note Date of Service: September 02, 2022 Patient: Chuckie Villalta Medical Record: [id number] Reason for Admission / Consultation: Opinion/Advice regarding [...] Camacho MD Gastroenterology AND Hepatology Fellow Pager [phone] Discussed with staff. ==== History of Present [...] malaise with nausea. No fever/chills. On Thursday, 08/31/ (more content not included)... Normal [facility] Haptoglob SerPl-mCncon 09-02 Haptoglobin [Mass/Vol] 36 mg/dL Normal 31-238 [facility] Comment on above: Order Comment: Speci men Type: BLOOD SPECIMEN [facility] Address: [address] [place], [place] [address] [address] Performed By: #### 5 870-8, COPPER #### [facility] CLIA [id number] [address] [place] [address] [place] Iron and Iron binding capaci ty panelon 09-02-2022 Iron [Mass/Vol] 26 ug/dL Low 41-186 [facility] Comment on above: Order Comment: Speci men Type: BLOOD SPECIMEN [facility]ing Facility[facility] Address: [address] [place] [address] Performed By: #### V ITB6 #### [facility] [id number] [address] [place] [address] Iron binding capacity [Mass/Vol] 271 ug/dL Normal 232-386 [facility] Comment on above: Order Comment: Speci men Type: BLOOD SPECIMEN Ordering Facility: [facility] Address: [address] [place] [address] Performed By: #### V ITB6 #### [facility] [id number] [address] [place] [address] Iron/TIBC [Molar ratio] 9.6 % Low 15.0-57.0 [facility] Comment on above: Order Comment: Speci men Type: BLOOD SPECIMEN [facility]ing Facility[facility] Address: [address] [place] [address] Performed By: #### V ITB6 #### [facility] [id number] [address] [place] [address] LDH SerPl-cCncon 09-02-2022 LDH [Catalytic activity/Vol] 207 U/L Normal 135-225 [facility] Comment on above: Order Comment: Speci men Type: BLOOD SPECIMENOrdering Facility: [facility] Address: [address] [place] [address] Performed By: #### 2 532-0, 5195-3, 51320-8, 69923-8 ####[facility] [id number] [place] [address] [place] Mitochondria Ab IF Ql (S)on 09-02-2022 Mitochondria M2 Ab IA Qn (S) 1.7 Units Normal <=20.0 [facility] Comment on above: Order Comment: Speci men Type: BLOOD SPECIMEN Ordering Facility[facility] Address: [address] [address] Performed By: #### 5 763-8, COPPER #### [facility] CLIA [id number] [address] Mitochondria M2 Ab Ql (S) Negative Normal Negative [facility] Comment on above: Order Comment: Speci men Type: BLOOD SPECIMEN [facility] Address: [address] [address] Result Comment: Anti -mitochondrial antibody test is used as an aid in diagnosis of primary biliary cholangitis. Clinical correlation is required. Performed By: #### 5 763-8, COPPER #### [facility] CLIA [id number] [address] [place] NURSING PROGon 09-02-2022 NURSING PROG HNO ID: [id number] Author: Radha Mcpherson RN Service: Nursing Author [...] <1.5 Radha Mcpherson RN 3:59 PM Normal [facility] PATHOLOGIST INTERPRETATION C BC/DIFFon 09-02-2022 Staff Rn review Ernst (Unsp spec) [Interp] Reviewed by Flex Morataya MD Normal [facility] Comment on above: Order Comment: Speci men Type: BLOOD SPECIMENOrdering Facility: [facility] Address: [address] [place] [address] Performed By: #### S TFREV, 96804-8, [id number] ####[facility]IA [id number] [place] [address] [place] STAFF REVIEW, CBCDIF Normal [facility] Comment on above: Order Comment: Speci men Type: BLOOD SPECIMENOrdering Facility: [facility] Address: [address] [place] [address] Result Comment: Norm ocytic anemia without polychromasia Absolute lymphopenia without leukopenia Thrombocytopenia Performed By: #### S TFREV, 02207-4, [id number] ####[facility]IA [id number] [address] PHOSPHATIDYLETHANOL (PETH)on 09-02-2022 PETH 16:0/18.2 (PLPETH) 278 ng/mL Normal [facility] Comment on above: Order Comment: Speci men Type: BLOOD SPECIMEN [facility] Address: [address] [place] [address] Result Comment: Perf ormed By: [employer] [address] [place] [address] Laminating Press Operator: Mic Rangel MD, PhD Performed By: #### 5 763-8, COPPER #### [facility] CLIA [id number] [address] [place] PETH 16:0/18:1 (POPETH) 578 ng/mL Normal [facility] Comment on above: Order Comment: Speci men Type: BLOOD SPECIMEN [facility] Address: [address] [place] [address] Result Comment: INTE RPRETIVE INFORMATION:Phosphatidylethanol (PEth), Whole [...] Research). Test developed and characteristics determined by [employer]. See Compliance Statement B: [employer]/CS Performed By: #### 5 763-8, COPPER #### [facility] CLIA [id number] [address] [place] [address] OF [facility] PT panel Coag (PPP)on 2022 INR Coag (PPP) [Relative time] 1.2 {INR} Normal 0.9-1.3 [facility] Comment on above: Order Comment: Speci men Type: BLOOD SPECIMEN [facility]ing [facility] Address: [address] [place], [place] [address] Result Comment: Aster min K Antagonist (VKA) Therapeutic Range: INR 2 to 3 (Target INR of 2.5) Note: For patients treated with VKA drugs, such as warfarin, the [place] [employer] 2012 Guideline recommends [...] [phone] Performed By: #### V ITB6 #### [facility] CLIA [id number] [address] [place] [address] PT Coag (PPP) [Time] 11.9 s Normal 9.7-13.0 [facility] Comment on above: Order Comment: Speci mercy Type: BLOOD SPECIMEN [facility] Address: [address] [address] Performed By: #### V ITB6 #### [facility] CLIA [id number] [address] [place] [address] RBC MORPHOLOGYon 09-02-2022 Anisocytosis Ql (Bld) Present Normal [facility] Comment on above: Order Comment: [place] Type: BLOOD SPECIMENOrdering Facility: [facility] Address: [address] [address] Performed By: #### S TFREV, 75003-7, [id number] ####[facility]CLIA [id number] [facility] [id number] [address] [place] Platelets Estimate (Bld) [#/Vol] Decreased Normal [facility] Comment on above: Order Comment: Noe [place] Type: BLOOD SPECIMENOrdering Facility: [facility] Address: [address] [address] Performed By: #### S TFREV, 63428-0, [id number] ####[facility]IA [id number] [place] [address] [place] RBC morphology finding Nom (Bld) Reviewed: see results of individual morphologies Normal [facility] Comment on above: Order Comment: Speci men Type: BLOOD SPECIMENOrdering Facility: [facility] Address: [address] [place] [address] Performed By: #### S TFREV, 81337-5, [id number] ####[facility]IA [id number] [place] [address] [place] Retics #on 09-02-2022 Reticulocytes (Bld) [#/Vol] 0.35776 10*3/uL Normal 0.018-0.100 [facility] Comment on above: Order Comment: Speci men Type: BLOOD SPECIMENOrdering Facility: [facility] Address: [address] [place] [address] Performed By: #### 5 8410-2, 75120-4 ####[facility] [id number] [place] [address] [place] Reticulocytes (Bld) [#/Vol]o n 09-02-2022 Reticulocytes/100 RBC (Bld) 1.7 % Normal 0.4-2.0 [facility] Comment on above: Order Comment: Speci men Type: BLOOD SPECIMENOrdering Facility: [facility] Address: [address] [place] [address] Performed By: #### 5 8410-2, 49777-4 ####[facility] [id number] [place] [address] [place] Smooth muscle Ab Ql (S)on ACTIN SMOOTH MUSCLE IGG QUALITATIVE Negative Normal Negative [facility] Comment on above: Order Comment: Speci men Type: BLOOD SPECIMEN [facility] Address: [address] [place] [address] Performed By: #### 5 763-8, COPPER #### [facility] CLIA [id number] [address] [place] [address] [place] ACTIN SMOOTH MUSCLE IGG QUANTITATIVE 5 Units Normal <20 [facility] Comment on above: Order Comment: Speci men Type: BLOOD SPECIMEN [facility] Address: [address] [place] [address] Performed By: #### 5 763-8, COPPER #### [facility] CLIA [id number] [address] [place] [address] [place] Tacrolimus Bld-mCncon 2022 Tacrolimus (Bld) [Mass/Vol] 7.4 ng/mL Normal 5.0-20.0 [facility] Comment on above: Order Comment: [place]e [place] Type: BLOOD SPECIMENOrdering Facility: [facility] Address: [address] [place] [address] Result Comment: Thes e reference ranges are [...] Test performed by chemiluminescent immunoassay using Schuler Sash Installer. 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 Business Account Manager: GUILLE Transcribe Date/Time: Sep 02 2022 3:34P Dictated by : PAMELA SIMMONS, DO This examination was interpreted and the report reviewed and electronically signed by: KAMRON SHAH MD on Sep 02 2022 4:04PM EST [id number] Normal [facility] VARICELLA ZOSTER IGGon 09-02 VARICELLA ZOSTER IGG, QUAL Positive Normal Positive [facility] Comment on above: Order Comment: Speci men Type: BLOOD SPECIMENOrdering Facility: [facility] Address: [address] [place] [address] Result Comment: The result suggests recent or past exposure to Varicella-Zoster virus or chickenpox vaccination or zoster vaccination. Positive result may also be seen due to presence of passively-transferred antibodies. Please correlate with patient's history. Performed By: #### 7 886-5, 2284-8, VZVG2 ####[facility] LABCLIA [id number] [place] [address] [place] VARICELLA ZOSTER IGMon 09-02 VARICELLA ZOSTER, IGM 0.07 ISR Normal <=0.90 [facility] Comment on above: Order Comment: Speci men Type: BLOOD SPECIMEN [facility] Address: [address] [place] [address] Result Comment: Specimen is icteric. Results may [...] 12 months post-infection or immunization. Performed By: [facility] [address] [place] [address] Laminating Press Operator: Mic Rangel MD, PhD Performed By: #### 5 0189-0, 74173-8, 2132-9 #### [facility] CLIA [id number] [address] [place] aPTT PPPon 09-02-2022 aPTT Coag (PPP) [Time] 26.0 s Normal 23.0-32.4 [facility] Comment on above: Order Comment: Speci mercy Type: BLOOD SPECIMEN [facility] Address: [address] [place] [address] Performed By: #### V ITB6 #### [facility] CLIA [id number] [address] [place] [address] CASE MGT INIT ASSESon 2022 CASE MGT INRAMO LEÓN HNO ID: [id number] Author: JEY Felton Service: ? Author Type: Primary Mill Roller Type: Care Mgt Initial Assessment Filed: 09/01/2022 10:16 AM Note Text: CARE MANAGEMENT: ASSESSMENT AND DISCHARGE PLAN SERVICE DATE: September 01, 2022 SERVICE TIME: 10:15 AM PRIMARY CARE PHYSICIAN: Luis Abdalla DO Primary Contact: Extended Emergency Contact Information Primary Emergency Contact: Remedios Villalta Address: [address] [place] [id number] [facility] Mobile Relation: Spouse ADMISSION STATUS: Inpatient Insurance Provider: MEDICARE A AND B NEEDS PRIOR TO DISCHARGE Needs Prior to Discharge: To Be Determined POTENTIAL TRANSITION PLANS Home Patient's perception of need for this admission: Pt is aware of admission and is in agreement ADVANCE DIRECTIVES Current Advance Directive: Health Care Power of Supervisor Bonding In Chart: Yes Up To Date and Valid: Yes CAREGIVER ASSESSMENT Caregiver is ready, willing and able to meet the patient's needs as recommended by the inter-professional team:: Yes Name of Caregiver: Remedios Villalta [phone] Patient's transition needs and plan for meeting these needs: Pt is aware of admission and is in agreement FREEDOM OF CHOICE EXPLAINED: Tarzan of Choice Given: No Reason Not Given: [...] 01, 2022 TIME: 10:14 AM CONTACT #: [facility] panel Auto (Bld)on 09-01 Erythrocyte distribution width (RBC) [Ratio] 16.8 % High 11.5-15.0 [facility] Comment on above: Order Comment: Speci men Type: BLOOD SPECIMENOrdering Facility: [facility] Address: [address] [place] [address] Performed By: #### 5 8410-2 ####[facility]IA [id number] [address] STATES OF [facility] Hematocrit (Bld) [Volume fraction] 37.0 % Low 39.0-51.0 [facility] Comment on above: Order Comment: Speci men Type: BLOOD SPECIMENOrdering Facility: [facility] Address: [address] [place] [address] Performed By: #### 5 8410-2 ####[facility]IA [id number] [address] [place] Hemoglobin (Bld) [Mass/Vol] 13.3 g/dL Normal 13.0-17.0 [facility] Comment on above: Order Comment: Speci men Type: BLOOD SPECIMENOrdering Facility: [facility] Address: [address] [place] [address] Performed By: #### 5 8410-2 ####[facility]IA [id number] [place] [address] [place] MCH (RBC) [Entitic mass] 30.1 pg Normal 26.0-34.0 [facility] Comment on above: Order Comment: Speci men Type: BLOOD SPECIMENOrdering Facility: [facility] Address: [address] [place] [address] Performed By: #### 5 8410-2 ####[facility]IA [id number] [place] [address] [place] MCHC (RBC) [Mass/Vol] 35.9 g/dL Normal 30.5-36.0 [facility] Comment on above: Order Comment: Speci men Type: BLOOD SPECIMENOrdering Facility: [facility] Address: [address] [place] [address] Performed By: #### 5 8410-2 ####[facility]IA [id number] [address] [place] MCV (RBC) [Entitic vol] 83.7 fL Normal 80.0-100.0 [facility] Comment on above: Order Comment: Speci men Type: BLOOD SPECIMENOrdering Facility: [facility] Address: [address] Performed By: #### 5 8410-2 ####[facility]IA [id number] [address] [place] Nucleated RBC (Bld) [#/Vol] 10*3/uL Normal <0.01 [facility] Comment on above: Order Comment: Speci men Type: BLOOD SPECIMENOrdering Facility: [facility] Address: [address] Performed By: #### 5 8410-2 ####[facility] [id number] [address] [place] Platelet mean volume (Bld) [Entitic vol] 10.9 fL Normal 9.0-12.7 [facility] Comment on above: Order Comment: Speci men Type: BLOOD SPECIMENOrdering Facility: [facility] Address: [address] [place] [address] Performed By: #### 5 8410-2 ####[facility]IA [id number] [place] [address] [place] Platelets (Bld) [#/Vol] 56 10*3/uL Low 150-400 [facility] Comment on above: Order Comment: Speci men Type: BLOOD SPECIMENOrdering Facility: [facility] Address: [address] [place] [address] Result Comment: Resu lts checked and verified.No clot detected. Performed By: #### 5 8410-2 ####[facility] [id number] [address] [place] RBC (Bld) [#/Vol] 4.42 10*6/uL Normal 4.20-6.00 [facility] Comment on above: Order Comment: Speci men Type: BLOOD SPECIMENOrdering Facility: [facility] Address: [address] [place] [address] Performed By: #### 5 8410-2 ####[facility]CLIA [id number] [address] OF [facility] WBC (Bld) [#/Vol] 5.59 10*3/uL Normal 3.70-11.00 [facility] Comment on above: Order Comment: Speci men Type: BLOOD SPECIMENOrdering Facility: [facility] Address: [address] [place] [address] Performed By: #### 5 8410-2 ####[facility] [id number] [address] [place] Comp Metab 2000 Pnl SerPlon 09-01-2022 Bilirubin [Mass/Vol] 8.5 mg/dL High 0.2-1.3 [facility] Comment on above: Order Comment: Speci men Type: BLOOD SPECIMEN [facility] Address: [address] [place] [address] Performed By: #### 5 763-8, COPPER #### [facility] CLIA [id number] [address] [place] Comprehensive metabolic 2000 panelon 09-01-2022 Albumin [Mass/Vol] 4.0 g/dL Normal 3.9-4.9 [facility] Comment on above: Order Comment: Speci men Type: BLOOD SPECIMEN [facility] Address: [address] Performed By: #### 5 763-8, COPPER #### [facility] CLIA [id number] [address] [place] [address] [place] ALP [Catalytic activity/Vol] 65 U/L Normal 38-113 [facility] Comment on above: Order Comment: Speci men Type: BLOOD SPECIMEN [facility] Address: [address] Performed By: #### 5 763-8, COPPER #### [facility] CLIA [id number] [address] [place] [address] [place] ALT [Catalytic activity/Vol] 147 U/L High 10-54 [facility] Comment on above: Order Comment: Speci men Type: BLOOD SPECIMEN [facility] Address: [address] [place], [place] [address] Performed By: #### 5 763-8, COPPER #### [facility] CLIA [id number] [facility] [place] [address] [place] Anion gap [Moles/Vol] 10 mmol/L Normal 9-18 [facility] Comment on above: Order Comment: Speci men Type: BLOOD SPECIMEN [facility] Address: [address] Performed By: #### 5 763-8, COPPER #### [facility] CLIA [id number] [address] [place] [address] [place] AST [Catalytic activity/Vol] 617 U/L High 14-40 [facility] Comment on above: Order Comment: Speci men Type: BLOOD SPECIMEN [facility] Address: [address] [place] [address] Performed By: #### 5 763-8, COPPER #### [facility] CLIA [id number] [address] [place] [address] [place] Calcium [Mass/Vol] 8.6 mg/dL Normal 8.5-10.2 [facility] Comment on above: Order Comment: Speci men Type: BLOOD SPECIMEN [facility] Address: [address] Performed By: #### 5 763-8, COPPER #### [facility] CLIA [id number] [address] [place] [address] [place] Chloride [Moles/Vol] 102 mmol/L Normal 97-105 [facility] Comment on above: Order Comment: Speci men Type: BLOOD SPECIMEN [facility] Address: [address] Performed By: #### 5 763-8, COPPER #### [facility] CLIA [id number] [address] [place] [address] [place] CO2 [Moles/Vol] 23 mmol/L Normal 22-30 [facility] Comment on above: Order Comment: Speci men Type: BLOOD SPECIMEN [facility] Address: [address] [place], [place] [address] Performed By: #### 5 763-8, COPPER #### [facility] CLIA [id number] [address] [place] [address] [place] Creatinine [Mass/Vol] 1.23 mg/dL High 0.73-1.22 [facility] Comment on above: Order Comment: Speci men Type: BLOOD SPECIMEN [facility] Address: [address] Performed By: #### 5 763-8, COPPER #### [facility] CLIA [id number] [address] [place] [address] [place] ESTIMATED GLOMERULAR FILTRATION RATE 78 mL/min/1.73m??? Normal >=60 [facility] Comment on above: Order Comment: Speci men Type: BLOOD SPECIMEN [facility] Address: [address] [id number] Result Comment: Brenda mated Glomerular Filtration Rate [...] Performed By: #### 5 763-8, COPPER #### [facility] CLIA [id number] [address] [place] [address] [place] Glucose [Mass/Vol] 131 mg/dL High 74-99 [facility] Comment on above: Order Comment: Noe [place] Type: BLOOD SPECIMEN [facility] Address: [address] [place] [address] Result Comment: The [place] Diabetes Association (ADA) provides guidance for cutoff [...] Standards of Medical Care in Diabetes 2016, [place] [employer] Association. Diabetes Care. 2016.39(Suppl 1). Performed By: #### 5 763-8, COPPER #### [facility] CLIA [id number] [address] [place] [address] [place] Potassium [Moles/Vol] 3.7 mmol/L Normal 3.7-5.1 [facility] Comment on above: Order Comment: Noe [place] Type: BLOOD SPECIMEN [facility] Address: [address] [address] Performed By: #### 5 763-8, COPPER #### [facility] CLIA [id number] [address] [place] [address] [place] Protein [Mass/Vol] 6.2 g/dL Low 6.3-8.0 [facility] Comment on above: Order Comment: Speci men Type: BLOOD SPECIMEN [facility] Address: [address] [place] [address] Performed By: #### 5 763-8, COPPER #### [facility] CLIA [id number] [address] [place] [address] [place] Sodium [Moles/Vol] 135 mmol/L Low 136-144 [facility] Comment on above: Order Comment: Speci men Type: BLOOD SPECIMEN [facility] Address: [address] [place] [address] Performed By: #### 5 763-8, COPPER #### [facility] CLIA [id number] [address] [place] [address] [place] Urea nitrogen [Mass/Vol] 11 mg/dL Normal 9-24 [facility] Comment on above: Order Comment: Speci men Type: BLOOD SPECIMEN [facility] Address: [address] [place] [address] Performed By: #### 5 763-8, COPPER #### [facility] CLIA [id number] [address] [place] [address] [place] ED NOTEon 09-01-2022 ED NOTE HNO ID: [id number] Author: Max Cuellar MD Service: Emergency Medicine [...] (ANC) 15.29(!) Lymph% 4.9 Abs Lymph 0.88(!) [place]% 9.0 Abs [place] 1.61(!) Eosin% 0.0 Abs Eosin <0.03 Baso% [...] the medicine service. Max Cuellar MD Normal [facility] HISTORY PHYSICALon 3 HISTORY PHYSICAL HNO ID: [id number] Author: Reymundo Charles MD Service: Hospital Medicine Author Type: Physician Type: HANDP Filed: 09/01/2022 12:49 AM Note Text: DEPARTMENT OF HOSPITAL MEDICINE HISTORY AND PHYSICAL EXAM SERVICE DATE: 09/01/2022 SERVICE TIME: 12:42 AM Primary Care Physician: Luis Abdalla DO NIGHT AND WEEKEND COVERAGE: Please page [phone] until 7:30am this morning. Afterwards, patient will [...] 15.29 (*) Abs Lymph 0.88 (*) Abs [place] 1.61 (*) Abs Immature Gran 0.11 (*) All other components within normal limits Narrative: This is an appended report. These results have been appended to a previously verified report. ED BG VENOUS/LAB PANELS - Abnormal; Notable for the following components: Lactate (POCT) 4.7 (*) All other components within normal limits Narrative: Meter ID:ED Location:ED [facility], [address] [place] [address], [address] ED BG VENOUS/LAB PANELS - Abnormal; Notable for the following components: Lactate (POCT) 2.7 (*) All other components within normal limits Narrative: Meter ID:ED Location:ED [facility], [address] [place] [address], [address] PROTHROMBIN TIME/PT - Normal EXPEDITED COVID19 - Normal Narrative: This test has been authorized by FDA under an Emergency Use Authorization (EUA). Test performed by [facility], [facility] [place], [address] [place] [address]. LACTATE - ED (POC) LACTATE - ED [...] MEDICATIONS: Cu (more content not included)... Normal [facility] bilirubin panel [Ma ss/Vol]on 09-01-2022 Bilirubin.conjugated [Mass/Vol] 4.7 mg/dL High <0.2 [facility] Comment on above: Order Comment: Speci men Type: BLOOD SPECIMEN [facility] Address: [address] [address] Performed By: #### 5 763-8, COPPER #### [facility] CLIA [id number] [address] [place] [address] [place] Bilirubin.indirect [Mass/Vol] 3.8 mg/dL High <1.4 [facility] Comment on above: Order Comment: Speci men Type: BLOOD SPECIMEN Ordering Facility: [facility] Address: [address] [address] Performed By: #### 5 763-8, COPPER #### [facility] CLIA [id number] [address] [place] [address] [place] SEPSIS LACTATEon 09-01-2022 Lactate [Moles/Vol] 0.9 mmol/L Normal <=2.0 [facility] Comment on above: Order Comment: Speci men Type: BLOOD SPECIMEN Ordering Facility: [facility] Address: [address] [place], [place] [address] Performed By: #### 5 763-8, COPPER #### [facility] CLIA [id number] [address] [facility] DESK [id number] [place], [place] [id number] [place] US ABD RIGHT UPPER QUADRANTo n 09-01-2022 US ABD RIGHT UPPER QUADRANT * * *Final Report* * * DATE OF EXAM: Sep 01 2022 8:18PM [facility] 1032 - US ABD RIGHT UPPER QUADRANT [...] biliary ductal dilation, similar compared to 10/30/2021. Business Account Manager: GUILLE Transcribe Date/Time: Sep 01 2022 8:45P Dictated by : MOLLY MAI MD This examination was interpreted and the report reviewed and electronically signed by: KATERIN ALY MD on Sep 01 2022 9:14PM EST [id number] Normal [facility] XR CHEST 1V FRONTAL PORTon [...] Lower ACDF. IMPRESSION: No acute cardiopulmonary process. Business Account Manager: PSCZay Transcribe Date/Time: Sep 01 2022 1:11A Dictated by : GLADYS VIEYRA MD This examination was interpreted and the report reviewed and electronically signed by: GLADYS VIEYRA MD on Sep 01 2022 1:12AM EST [id number] Normal [facility] Bacteria Bld Culton 08-31-19 Bacteria identified Cx Nom (Bld) CULTURE, BLOOD: No growth 5 days Normal [facility] Comment on above: Performed By: #### 2 4323-8 #### [facility] CLIA [id number] [address] [place] [address] [place] Bacteria identified Cx Nom (Bld) CULTURE, BLOOD: No growth 5 days Normal [facility] Comment on above: Performed By: #### 6 00-7 ####[facility] [id number] [place] [address] [place] Bilirub Conj SerPl-mCncon Bilirubin.conjugated [Mass/Vol] 0.4 mg/dL High <0.2 [facility] Comment on above: Order Comment: Speci men Type: BLOOD SPECIMEN Ordering Facility: [facility] Address: [address] [place] [address] Result Comment: Resu lts may be falsely decreased due to interference from hemolysis. Suggest reorder as clinically indicated. Performed By: #### 5 763-8, COPPER #### [facility] CLIA [id number] [address] [facility] [id number] [address] [place] CBC W Auto Differential pane l (Bld)on 08-31-2022 Basophils (Bld) [#/Vol] 0.06 10*3/uL Normal <0.11 [facility] Comment on above: Order Comment: Speci men Type: BLOOD SPECIMEN Ordering Facility: [facility] Address: [address] [address] Performed By: #### V ITB6 #### [facility] CLIA [id number] [address] [place] [address] Basophils/100 WBC (Bld) 0.3 % Normal [facility] Comment on above: Order Comment: Speci men Type: BLOOD SPECIMEN Ordering Facility: [facility] Address: [address] [address] Performed By: #### V ITB6 #### [facility] CLIA [id number] [address] [place] [address] Differential cell count method Nom (Bld) Auto Normal [facility] Comment on above: Order Comment: Speci men Type: BLOOD SPECIMEN Ordering Facility: [facility] Address: [address] [address] Performed By: #### V ITB6 #### [facility] CLIA [id number] [address] [place] [address] Eosinophils (Bld) [#/Vol] 10*3/uL Normal <0.46 [facility] Comment on above: Order Comment: Speci men Type: BLOOD SPECIMEN Ordering Facility: [facility] Address: [address] [address] Performed By: #### V ITB6 #### [facility] CLIA [id number] [address] [place] [address] Eosinophils/100 WBC (Bld) 0.0 % Normal [facility] Comment on above: Order Comment: Speci men Type: BLOOD SPECIMEN Ordering Facility: [facility] Address: [address] [place] [address] Performed By: #### V ITB6 #### [facility] CLIA [id number] [address] [place] [address] Erythrocyte distribution width (RBC) [Ratio] 17.9 % High 11.5-15.0 [facility] Comment on above: Order Comment: Speci men Type: BLOOD SPECIMEN Ordering Facility: [facility] Address: [address] [place] [address] Performed By: #### V ITB6 #### [facility] CLIA [id number] [address] [place] [address] Hematocrit (Bld) [Volume fraction] 45.3 % Normal 39.0-51.0 [facility] Comment on above: Order Comment: Speci men Type: BLOOD SPECIMEN Ordering Facility: [facility] Address: [address] [place] [address] Performed By: #### V ITB6 #### [facility] CLIA [id number] [address] [place] [address] Hemoglobin (Bld) [Mass/Vol] 16.7 g/dL Normal 13.0-17.0 [facility] Comment on above: Order Comment: Speci men Type: BLOOD SPECIMEN Ordering Facility: [facility] Address: [address] [place] [address] Performed By: #### V ITB6 #### [facility] CLIA [id number] [address] [place] [address] Immature granulocytes (Bld) [#/Vol] 0.11 10*3/uL High <0.10 [facility] Comment on above: Order Comment: Speci men Type: BLOOD SPECIMEN Ordering Facility: [facility] Address: [address] [place] [address] Performed By: #### V ITB6 #### [facility] CLIA [id number] [address] [place] [address] Immature granulocytes/100 WBC (Bld) 0.6 % Normal [facility] Comment on above: Order Comment: Speci men Type: BLOOD SPECIMEN Ordering Facility: [facility] Address: [address] [place] [address] Performed By: #### V ITB6 #### [facility] CLIA [id number] [address] [place] [address] Lymphocytes (Bld) [#/Vol] 0.88 10*3/uL Low 1.00-4.00 [facility] Comment on above: Order Comment: Speci men Type: BLOOD SPECIMEN Ordering Facility: [facility] Address: [address] [place] [address] Performed By: #### V ITB6 #### [facility] CLIA [id number] [address] [place] [address] Lymphocytes/100 WBC (Bld) 4.9 % Normal [facility] Comment on above: Order Comment: Speci men Type: BLOOD SPECIMEN Ordering Facility: [facility] Address: [address] [place] [address] Performed By: #### V ITB6 #### [facility] IA [id number] [address] [place] [address] MCH (RBC) [Entitic mass] 29.9 pg Normal 26.0-34.0 [facility] Comment on above: Order Comment: Speci men Type: BLOOD SPECIMEN Ordering Facility: [facility] Address: [address] [place] [address] Performed By: #### V ITB6 #### [facility] CLIA [id number] [address] [place] [address] MCHC (RBC) [Mass/Vol] 36.9 g/dL High 30.5-36.0 [facility] Comment on above: Order Comment: Speci men Type: BLOOD SPECIMEN Ordering Facility: [facility] Address: [address] [place] [address] Performed By: #### V ITB6 #### [facility] CLIA [id number] [address] [place] [address] MCV (RBC) [Entitic vol] 81.2 fL Normal 80.0-100.0 [facility] Comment on above: Order Comment: Speci men Type: BLOOD SPECIMEN Ordering Facility: [facility] Address: [address] [address] Performed By: #### V ITB6 #### [facility] CLIA [id number] [address] [place] [address] Monocytes (Bld) [#/Vol] 1.61 10*3/uL High <0.87 [facility] Comment on above: Order Comment: Speci men Type: BLOOD SPECIMEN Ordering Facility: [facility] Address: [address] [place] [address] Performed By: #### V ITB6 #### [facility] CLIA [id number] [address] [place] [address] Monocytes/100 WBC (Bld) 9.0 % Normal [facility] Comment on above: Order Comment: Speci men Type: BLOOD SPECIMEN Ordering Facility: [facility] Address: [address] [place] [address] Performed By: #### V ITB6 #### [facility] CLIA [id number] [address] [place] [address] Neutrophils (Bld) [#/Vol] 15.29 10*3/uL High 1.45-7.50 [facility] Comment on above: Order Comment: Speci men Type: BLOOD SPECIMEN Ordering Facility[facility] Address: [address] [place] [address] Performed By: #### V ITB6 #### [facility] CLIA [id number] [address] [place] [address] Neutrophils/100 WBC (Bld) 85.2 % Normal [facility] Comment on above: Order Comment: Speci men Type: BLOOD SPECIMEN Ordering Facility: [facility] Address: [address] [place] [address] Performed By: #### V ITB6 #### [facility] CLIA [id number] [address] [place] [address] Nucleated RBC (Bld) [#/Vol] 10*3/uL Normal <0.01 [facility] Comment on above: Order Comment: Speci men Type: BLOOD SPECIMEN Ordering Facility: [facility] Address: [address] [address] Performed By: #### V ITB6 #### [facility] CLIA [id number] [address] [place] [address] Nucleated RBC/100 WBC (Bld) [Ratio] 0.0 /100 WBC Normal [facility] Comment on above: Order Comment: Speci men Type: BLOOD SPECIMEN Ordering Facility: [facility] Address: [address] [address] Performed By: #### V ITB6 #### [facility] CLIA [id number] [address] [place] [address] Platelet mean volume (Bld) [Entitic vol] 10.8 fL Normal 9.0-12.7 [facility] Comment on above: Order Comment: Speci men Type: BLOOD SPECIMEN Ordering Facility: [facility] Address: [address] [place] [address] Performed By: #### V ITB6 #### [facility] CLIA [id number] [address] [place] [address] Platelets (Bld) [#/Vol] 164 10*3/uL Normal 150-400 [facility] Comment on above: Order Comment: Speci men Type: BLOOD SPECIMEN Ordering Facility: [facility] Address: [address] [address] Performed By: #### V ITB6 #### [facility] IA [id number] [address] [place] [address] RBC (Bld) [#/Vol] 5.58 10*6/uL Normal 4.20-6.00 [facility] Comment on above: Order Comment: Speci men Type: BLOOD SPECIMEN Ordering Facility[facility] Address: [address] [address] Performed By: #### V ITB6 #### [facility] CLIA [id number] [address] [place] [address] WBC (Bld) [#/Vol] 17.95 10*3/uL High 3.70-11.00 [facility] Comment on above: Order Comment: Speci men Type: BLOOD SPECIMEN Ordering Facility[facility] Address: [facility] [address] Performed By: #### V ITB6 #### [facility] [id number] [address] [place] [address] CT ABD/PEL W IVCONon 023 CT ABD/PEL W IVCON * * *Final Report* * * DATE OF EXAM: Aug 31 2022 7:24PM [facility] 0530 - CT ABD/PEL W IVCON [...] Tissues: No significant finding. Lower thorax: Unremarkable. An/Syq 13 Nav/C2 Operator (topogram) images: No additional findings. IMPRESSION: ACUTE EDEMATOUS PANCREATITIS. NO FLUID COLLECTIONS. Business Account Manager: PSCZay Transcribe Date/Time: Aug 31 2022 7:29P Dictated by : RADHA FRANCO MD This examination was interpreted and the report reviewed and electronically signed by: LAQUITA NUÑEZ MD on Aug 31 2022 8:01PM EST [id number] Normal [facility] Comprehensive metabolic 2000 panelon 08-31-2022 Albumin [Mass/Vol] 5.0 g/dL High 3.9-4.9 [facility] Comment on above: Order Comment: Speci men Type: BLOOD SPECIMENOrdering Facility: [facility] Address: [address] [place], [place] [address] Performed By: #### 2 4323-8, 95812-7, 3040-3, 51679-4, 23571-2 ####[facility] [id number] [place] [address] [place] ALP [Catalytic activity/Vol] 64 U/L Normal 38-113 [facility] Comment on above: Order Comment: Speci men Type: BLOOD SPECIMENOrdering Facility: [facility] Address: [address] [id number] Performed By: #### 2 4323-8, 95766-1, 3040-3, 47865-2, 77643-3 ####[facility] [id number] [address] [place] ALT [Catalytic activity/Vol] 21 U/L Normal 10-54 [facility] Comment on above: Order Comment: Speci men Type: BLOOD SPECIMENOrdering Facility: [facility] Address: [address] Performed By: #### 2 4323-8, 75453-6, 3039-3, 48862-2, 85414-4 ####[facility] [id number] [address] [address] [place] Anion gap [Moles/Vol] 21 mmol/L High 9-18 [facility] Comment on above: Order Comment: Speci men Type: BLOOD SPECIMENOrdering Facility: [facility] Address: [address] [address] Performed By: #### 2 4323-8, 14157-1, 3039-3, 09767-6, 81157-7 ####[facility] [id number] [place] [address] [place] AST [Catalytic activity/Vol] 31 U/L Normal 14-40 [facility] Comment on above: Order Comment: Speci men Type: BLOOD SPECIMENOrdering Facility: [facility] Address: [address] [address] Performed By: #### 2 4323-8, 57450-6, 3039-3, 71381-1, 07029-2 ####[facility] [id number] [place] [address] [place] Bilirubin [Mass/Vol] 4.1 mg/dL High 0.2-1.3 [facility] Comment on above: Order Comment: Speci men Type: BLOOD SPECIMENOrdering Facility: [facility] Address: [address] [address] Performed By: #### 2 4323-8, 36515-3, 3039-3, 93967-4, 20813-2 ####[facility] [id number] [address] [address] [place] Calcium [Mass/Vol] 10.1 mg/dL Normal 8.5-10.2 [facility] Comment on above: Order Comment: Speci men Type: BLOOD SPECIMENOrdering Facility: [facility] Address: [address] [place] [address] Performed By: #### 2 4323-8, 10909-9, 3040-3, 53608-1, 10692-7 ####[facility] [id number] [place] [address] [place] Chloride [Moles/Vol] 95 mmol/L Low 97-105 [facility] Comment on above: Order Comment: Speci men Type: BLOOD SPECIMENOrdering Facility: [facility] Address: [address] [place] [address] Performed By: #### 2 4323-8, 33030-8, 3040-3, 32298-7, 60650-9 ####[facility] [id number] [place] [address] [place] CO2 [Moles/Vol] 21 mmol/L Low 22-30 [facility] Comment on above: Order Comment: Speci men Type: BLOOD SPECIMENOrdering Facility: [facility] Address: [address] [place] [address] Performed By: #### 2 4323-8, 99094-4, 3040-3, 37113-0, 37538-2 ####[facility] [id number] [place] [address] [place] Creatinine [Mass/Vol] 1.66 mg/dL High 0.73-1.22 [facility] Comment on above: Order Comment: Speci men Type: BLOOD SPECIMENOrdering Facility: [facility] Address: [address] [place] [address] Performed By: #### 2 4323-8, 54790-8, 3040-3, 49250-3, 55385-6 ####[facility] [id number] [address] [place] ESTIMATED GLOMERULAR FILTRATION RATE 54 mL/min/1.73m??? Low >=60 [facility] Comment on above: Order Comment: [place] Type: BLOOD SPECIMENOrdering Facility: [facility] Address: [place] [address] Result Comment: Brenda mated Glomerular Filtration Rate [...] actual GFR. Performed By: #### 2 4323-8, 01048-6, 3040-3, 69046-6, 59184-6 ####[facility] [id number] [place] [address] [place] Glucose [Mass/Vol] 129 mg/dL High 74-99 [facility] Comment on above: Order Comment: [place]e [place] Type: BLOOD SPECIMENOrdering Facility: [facility] Address: [address] [address] Result Comment: The [place] Diabetes Association (ADA) provides guidance for cutoff [...] Standards of Medical Care in Diabetes 2016, [place] [employer]. Diabetes Care. 2016.39(Suppl 1). Performed By: #### 2 4323-8, 06356-8, 3040-3, 23123-6, 50678-1 ####[facility] [id number] [place] [address] [place] Potassium [Moles/Vol] 4.0 mmol/L Normal 3.7-5.1 [facility] Comment on above: Order Comment: Speci men Type: BLOOD SPECIMENOrdering Facility: [facility] Address: [address] [place] [address] Performed By: #### 2 4323-8, 64725-0, 3040-3, 57223-3, 61248-6 ####[facility] [id number] [place] [address] [place] Protein [Mass/Vol] 7.7 g/dL Normal 6.3-8.0 [facility] Comment on above: Order Comment: Speci men Type: BLOOD SPECIMENOrdering Facility: [facility] Address: [address] [place] [address] Performed By: #### 2 4323-8, 98558-4, 0-3, 90018-0, 73344-9 ####[facility] [id number] [place] [address] [place] Sodium [Moles/Vol] 137 mmol/L Normal 136-144 [facility] Comment on above: Order Comment: Speci men Type: BLOOD SPECIMENOrdering Facility: [facility] Address: [address] [place] [address] Performed By: #### 2 4323-8, 82756-8, 0-3, 18178-8, 59444-6 ####[facility] [id number] [place] [address] [place] Urea nitrogen [Mass/Vol] 18 mg/dL Normal 9-24 [facility] Comment on above: Order Comment: Speci men Type: BLOOD SPECIMENOrdering Facility: [facility] Address: [address] [place] [address] Performed By: #### 2 4323-8, 97360-2, 0-3, 82303-8, 73244-3 ####[facility]KYRA [id number] [address] [facility] ED NOTEon 08-31-2022 ED NOTE HNO ID: [id number] Author: Lorena Unger RN Service: Emergency Medicine [...] three days either due to vomiting. Normal [facility] ED NOTE HNO ID: [id number] Author: Reyes Schaefer RN Service: Emergency Medicine Author Type: Registered Nurse Type: ED Notes Filed: 08/31/2022 7:10 PM Note Text: Report given to BATOOL Rebollar Normal [facility] ED NOTE HNO ID: [id number] Author: Reyes Schaefer RN Service: Emergency Medicine [...] sating 100% RA. Pt hypertensive 200/96. Normal [facility] ED PROV NOTEon 08-31-2022 ED PROV NOTE HNO ID: [id number] Author: Ranjit Dawson MD Service: Emergency Medicine [...] components with (more content not included)... Normal [facility] Lipase SerPl-cCncon 08-31-19 23 Lipase [Catalytic activity/Vol] 894 U/L High 16-61 [facility] Comment on above: Order Comment: [place] Type: BLOOD SPECIMEN [facility] Address: [address] [place] [address] Performed By: #### 5 763-8, COPPER #### [facility] CLIA [id number] [address] [place] Magnesium SerPl-mCncon 08-31 Magnesium [Mass/Vol] 1.6 mg/dL Low 1.7-2.3 [facility] Comment on above: Order Comment: [place] Type: BLOOD SPECIMENOrdering Facility: [facility] Address: [address] [place] [address] Performed By: #### 2 4323-8, 55202-2, 3040-3, 03331-1, 01962-8 ####[facility] [id number] [address] [place] PT panel Coag (PPP)on 2022 INR Coag (PPP) [Relative time] 1.2 {INR} Normal 0.9-1.3 [facility] Comment on above: Order Comment: [place] Type: BLOOD SPECIMEN [facility] Address: [address] [place] [address] Result Comment: Aster min K Antagonist (VKA) Therapeutic Range: INR 2 to 3 (Target INR of 2.5) Note: For patients treated with VKA drugs, such as warfarin, the [place] [employer] 2012 Guideline recommends [...] Chest 2012, 141:7S-47S Goldie SANTANA, et al. [facility] 2017, 70: 252-289 Performed By: #### 5 0189-0, 74425-6, 2132-03 #### [facility] CLIA [id number] [address] [place] [address] [place] PT Coag (PPP) [Time] 12.7 s Normal 9.7-13.0 [facility] Comment on above: Order Comment: Speci men Type: BLOOD SPECIMEN [facility] Address: [address] [place] [address] Performed By: #### 5 0189-0, 22431-6, 2132-03 #### [facility] [place] [id number] [address] [place] [address] OF [facility] Procalcitonin SerPl-mCncon 0 08-31-2022 Procalcitonin [Mass/Vol] ng/mL Normal <0.09 [facility] Comment on above: Order Comment: Speci [facility] Type: BLOOD SPECIMEN [facility] Address: [address] [place] [address] Result Comment: For a guided interpretation of test results, please visit the Change in Procalcitonin Calculator, [email or web address]. Performed By: #### 5 763-8, COPPER #### [facility] CLIA [id number] [address] [place] [address] [place] SARS-CoV-2 RNA Resp Ql NOLBERTO+p robeon 08-31-2022 SARS-CoV-2 (COVID-19) RNA NOLBERTO+probe Ql (Resp) COVID 19 RESULT: Not detected The method used is RT-PCR or an equivalent NAAT method. Reference Range(the expected result in uninfected individuals): Not detected Normal [facility] Comment on above: Performed By: #### 2 4323-8 #### [facility] CLIA [id number] [address] [facility] DES[id number] [place] [address] OF [facility] Tacrolimus Bld-mCncon 2022 Tacrolimus (Bld) [Mass/Vol] 7.5 ng/mL Normal 5.0-20.0 [facility] Comment on above: Order Comment: [place] Type: BLOOD SPECIMEN [facility] Address: [address] [place] [address] Result Comment: Thes e reference ranges are [...] Test performed by chemiluminescent immunoassay using [employer] Installer. Performed By: #### V ITB6 #### [facility] CLIA [id number] [address] [place] [address] Tacrolimus (Bld) [Mass/Vol] 7.3 ng/mL Normal 5.0-20.0 [facility] Comment on above: Order Comment: [place] Type: BLOOD SPECIMEN [facility] Address: [address] [place] [address] Result Comment: Thes e reference ranges are [...] Test performed by chemiluminescent immunoassay using [employer] Installer. Performed By: #### 2 4323-8 #### [facility] CLIA [id number] [address] [place] [address] [place] CBC W Auto Differential pane l (Bld)on 07-07-2022 Basophils (Bld) [#/Vol] 10*3/uL Normal <0.11 [facility] Comment on above: Order Comment: Speci men Type: BLOOD SPECIMEN [facility] Address: [address] [place] [address] Performed By: #### 5 0189-0, , 2132-03 #### [facility] CLIA [id number] [address] [place] [address] [place] Basophils/100 WBC (Bld) 0.2 % Normal [facility] Comment on above: Order Comment: Speci men Type: BLOOD SPECIMEN [facility] Address: [address] [place] [address] Performed By: #### 5 0189-0, , 2132-03 #### [facility] CLIA [id number] [address] [place] [address] [place] Differential cell count method Nom (Bld) Auto Normal [facility] Comment on above: Order Comment: Speci men Type: BLOOD SPECIMEN [facility] Address: [address] [place] [address] Performed By: #### 5 0189-0, , 2132-03 #### [facility] CLIA [id number] [address] [place] [address] [place] Eosinophils (Bld) [#/Vol] 0.10 10*3/uL Normal <0.46 [facility] Comment on above: Order Comment: Speci men Type: BLOOD SPECIMEN [facility] Address: [address] [place], [place] [address] Performed By: #### 5 0189-0, , 2132-03 #### [facility] CLIA [id number] [address] [place] [address] [place] Eosinophils/100 WBC (Bld) 2.0 % Normal [facility] Comment on above: Order Comment: Speci men Type: BLOOD SPECIMEN [facility] Address: [address] [place], [place] [address] Performed By: #### 5 0189-0, , 2132-03 #### [facility] CLIA [id number] [address] [place] [address] [place] [place] Erythrocyte distribution width (RBC) [Ratio] 12.9 % Normal 11.5-15.0 [facility] Comment on above: Order Comment: Speci men Type: BLOOD SPECIMEN Ordering Facility: [facility] Address: [address] [place] [address] Performed By: #### 5 0189-0, , 2132-03 #### [facility] CLIA [id number] [address] [place] [address] [place] Hematocrit (Bld) [Volume fraction] 39.1 % Normal 39.0-51.0 [facility] Comment on above: Order Comment: Speci men Type: BLOOD SPECIMEN Ordering Facility: [facility] Address: [address] [place], [place] [address] Performed By: #### 5 0189-0, , 2132-03 #### [facility] CLIA [id number] [address] [place] [address] [place] Hemoglobin (Bld) [Mass/Vol] 13.3 g/dL Normal 13.0-17.0 [facility] Comment on above: Order Comment: Speci men Type: BLOOD SPECIMEN Ordering Facility: [facility] Address: [address] [place], [place] [address] Performed By: #### 5 0189-0, 34542-1, 2132-03 #### [facility] CLIA [id number] [address] [place] [address] [place] Immature granulocytes (Bld) [#/Vol] 0.03 10*3/uL Normal <0.10 [facility] Comment on above: Order Comment: Speci men Type: BLOOD SPECIMEN Ordering Facility: [facility] Address: [address] [place], [place] [address] Performed By: #### 5 0189-0, , 2132-03 #### [facility] CLIA [id number] [address] [place] [address] [place] Immature granulocytes/100 WBC (Bld) 0.6 % Normal [facility] Comment on above: Order Comment: Speci men Type: BLOOD SPECIMEN Ordering Facility[facility] Address: [address] [place], [place] [address] Performed By: #### 5 0189-0, , 2132-03 #### [facility] CLIA [id number] [address] [place] [address] [place] Lymphocytes (Bld) [#/Vol] 0.36 10*3/uL Low 1.00-4.00 [facility] Comment on above: Order Comment: Speci men Type: BLOOD SPECIMEN Ordering Facility: [facility] Address: [address] [place], [place] [address] Performed By: #### 5 0189-0, , 2132-03 #### [facility] CLIA [id number] [address] [place] [address] [place] Lymphocytes/100 WBC (Bld) 7.3 % Normal [facility] Comment on above: Order Comment: Speci men Type: BLOOD SPECIMEN Ordering Facility[facility] Address: [address] [place] [address] Performed By: #### 5 0189-0, , 2132-03 #### [facility] CLIA [id number] [id number] [place] [address] MCH (RBC) [Entitic mass] 31.1 pg Normal 26.0-34.0 [facility] Comment on above: Order Comment: Speci men Type: BLOOD SPECIMEN Ordering Facility: [facility] Address: [address] [place] [address] Performed By: #### 5 0189-0, 62518-3, 2132-03 #### [facility] CLIA [id number] [address] [place] [address] [place] MCHC (RBC) [Mass/Vol] 34.0 g/dL Normal 30.5-36.0 [facility] Comment on above: Order Comment: Speci men Type: BLOOD SPECIMEN Ordering Facility[facility] Address: [address] [place] [address] Performed By: #### 5 0189-0, , 2132-03 #### [facility] CLIA [id number] [address] [place] [address] [place] MCV (RBC) [Entitic vol] 91.6 fL Normal 80.0-100.0 [facility] Comment on above: Order Comment: Speci men Type: BLOOD SPECIMEN Ordering Facility: [facility] Address: [address] [place] [address] Performed By: #### 5 0189-0, , 2132-03 #### [facility] CLIA [id number] [address] [place] [address] [place] Monocytes (Bld) [#/Vol] 0.55 10*3/uL Normal <0.87 [facility] Comment on above: Order Comment: Speci men Type: BLOOD SPECIMEN Ordering Facility: [facility] Address: [address] [place], [place] [address] Performed By: #### 5 0189-0, 23309-4, 2132-03 #### [facility] CLIA [id number] [address] [id number] [address] [place] Monocytes/100 WBC (Bld) 11.1 % Normal [facility] Comment on above: Order Comment: Speci men Type: BLOOD SPECIMEN Ordering Facility: [facility] Address: [address] [place] [address] Performed By: #### 5 0189-0, , 2132-03 #### [facility] CLIA [id number] [address] [place] [address] [place] Neutrophils (Bld) [#/Vol] 3.89 10*3/uL Normal 1.45-7.50 [facility] Comment on above: Order Comment: Speci men Type: BLOOD SPECIMEN Ordering Facility[facility] Address: [address] [place], [place] [address] Performed By: #### 5 0189-0, , 2132-03 #### [facility] CLIA [id number] [address] [place] [address] [place] Neutrophils/100 WBC (Bld) 78.8 % Normal [facility] Comment on above: Order Comment: Speci men Type: BLOOD SPECIMEN Ordering Facility[facility] Address: [address] [place] [address] Performed By: #### 5 0189-0, , 2132-03 #### [facility] CLIA [id number] [address] [place] [address] [place] Nucleated RBC (Bld) [#/Vol] 10*3/uL Normal <0.01 [facility] Comment on above: Order Comment: Speci men Type: BLOOD SPECIMEN Order[facility] Address: [address] [place], [place] [address] Performed By: #### 5 0189-0, , 2132-03 #### [facility] CLIA [id number] [address] [place] [address] [place] Nucleated RBC/100 WBC (Bld) [Ratio] 0.0 /100 WBC Normal [facility] Comment on above: Order Comment: Speci men Type: BLOOD SPECIMEN Ordering [facility] Address: [address] [place], [place] [address] Performed By: #### 5 0189-0, 77456-6, 2132-03 #### [facility] CLIA [id number] [address] [place] [address] [place] Platelet mean volume (Bld) [Entitic vol] 12.4 fL Normal 9.0-12.7 [facility] Comment on above: Order Comment: Speci men Type: BLOOD SPECIMEN Order[facility] Address: [address] [place], [place] [address] Performed By: #### 5 0189-0, , 2132-03 #### [facility] CLIA [id number] [address] [place] [address] [place] Platelets (Bld) [#/Vol] 76 10*3/uL Low 150-400 [facility] Comment on above: Order Comment: Speci men Type: BLOOD SPECIMEN Order[facility] Address: [address] [place], [place] [address] Result Comment: Resu lts checked and verified.No clot detected. Performed By: #### 5 0189-0, , 2132-03 #### [facility] CLIA [id number] [address] [place] [address] [place] RBC (Bld) [#/Vol] 4.27 10*6/uL Normal 4.20-6.00 [facility] Comment on above: Order Comment: Speci men Type: BLOOD SPECIMEN Order[facility] Address: [address] [place], [place] [address] Performed By: #### 5 0189-0, , 2132-03 #### [facility] CLIA [id number] [address] [place], [place] [address] [place] WBC (Bld) [#/Vol] 4.94 10*3/uL Normal 3.70-11.00 [facility] Comment on above: Order Comment: Speci men Type: BLOOD SPECIMEN [facility] Address: [address] [place] [address] Performed By: #### 5 0189-0, 52528-8, 2131-9 #### [facility] CLIA [id number] [address] [place] [address] [place] Comprehensive metabolic 2000 panelon 07-07-2022 Albumin [Mass/Vol] 4.6 g/dL Normal 3.9-4.9 [facility] Comment on above: Order Comment: Speci men Type: BLOOD SPECIMENOrdering Facility: [facility] Address: [address] [place] [address] Performed By: #### 2 4323-8, 2323-2, ####[facility] [id number] [place] [address] [place]#### 65838-9 ####[facility] [id number] [place] [address] [place] [facility] [place] LABORATORYCLIA [id number] [place] [address] [place] ALP [Catalytic activity/Vol] 59 U/L Normal 38-113 [facility] Comment on above: Order Comment: Speci men Type: BLOOD SPECIMENOrdering Facility: [facility] Address: [address] [place], [place] [address] Performed By: #### 2 4323-8, 2323-2, ####[facility] [id number] [place] [address] [place]#### 33206-9 ####[facility]IA [id number] [address] [place] [address] [place] [facility] LABORATORYCLIA [id number] [place] [address] [place] ALT [Catalytic activity/Vol] 46 U/L Normal 10-54 [facility] Comment on above: Order Comment: Speci men Type: BLOOD SPECIMENOrdering Facility: [facility] Address: [address] [place] [address] Performed By: #### 2 4323-8, 2323-2, ####[facility] [id number] [place] [address] [place]#### 72986-7 ####[facility] LABCLIA [id number] [place] [address] [place] [facility] LABORATORYCLIA [id number] [place] [address] [place] Anion gap [Moles/Vol] 13 mmol/L Normal 9-18 [facility] Comment on above: Order Comment: Speci men Type: BLOOD SPECIMENOrdering Facility: [facility] Address: [address] [place], [place] [address] Performed By: #### 2 4323-8, 2323-08, ####[facility]IA [id number] [place] [address] [place]#### 67701-2 ####[facility]IA [id number] [place] [id number] [place] [facility] LABORATORYCLIA [id number] [place] [address] [place] AST [Catalytic activity/Vol] 30 U/L Normal 14-40 [facility] Comment on above: Order Comment: Speci men Type: BLOOD SPECIMENOrdering Facility: [facility] Address: [address] Performed By: #### 2 4323-8, 2, ####[facility]IA [id number] [place] [address] [place]#### 02145-0 ####[facility] LABCLIA [id number] [address] [address] [facility] LABORATORYCLIA [id number] [place] [address] [place] Bilirubin [Mass/Vol] 0.9 mg/dL Normal 0.2-1.3 [facility] Comment on above: Order Comment: Speci men Type: BLOOD SPECIMENOrdering Facility: [facility] Address: [address] [place] [address] Performed By: #### 2 3-8, 2323-08, ####[facility]IA [id number] [place] [address] [place]#### 06577-7 ####[facility] LABCLIA [id number] [place] [address] [place] [facility] LABORATORYCLIA [id number] [place] [address] [place] Calcium [Mass/Vol] 9.7 mg/dL Normal 8.5-10.2 [facility] Comment on above: Order Comment: Speci men Type: BLOOD SPECIMENOrdering Facility: [facility] Address: [address] [place] [id number] Performed By: #### 2 4323-8, 2, ####[facility]CLIA [id number] [place] [address] [place]#### 73642-0 ####[facility]CLIA [id number] [address] [address] [place] [facility] LABORATORYCLIA [id number] [place] [address] [place] Chloride [Moles/Vol] 104 mmol/L Normal 97-105 [facility] Comment on above: Order Comment: Speci men Type: BLOOD SPECIMENOrdering Facility: [facility] Address: [address] [place] [address] Performed By: #### 2 4323-8, 2323-2, ####[facility]CLIA [id number] [place] [address] [place]#### 19522-1 ####[facility] LABCLIA [id number] [address] OF [facility] LABORATORYCLIA [id number] [place] [address] [place] CO2 [Moles/Vol] 24 mmol/L Normal 22-30 [facility] Comment on above: Order Comment: Speci men Type: BLOOD SPECIMENOrdering Facility: [facility] Address: [address] [place], [place] [address] Performed By: #### 2 4323-8, 2323-08, ####[facility]CLIA [id number] [place] [address] [place]#### 76629-9 ####[facility]CLIA [id number] [address] STATES OF [facility] LABORATORYCLIA [id number] [place] [address] [place] Creatinine [Mass/Vol] 1.14 mg/dL Normal 0.73-1.22 [facility] Comment on above: Order Comment: Speci men Type: BLOOD SPECIMENOrdering Facility: [facility] Address: [address] [place], [place] [address] Performed By: #### 2 4323-8, 2323-2, ####[facility]CLIA [id number] [address] [place]#### 26998-8 ####[facility]IA [id number] [address] LABORATORYCLIA [id number] [place] [address] [place] ESTIMATED GLOMERULAR FILTRATION RATE 85 mL/min/1.73m??? Normal >=60 [facility] Comment on above: Order Comment: [place] Type: BLOOD SPECIMENOrdering Facility: [facility] Address: [address] [id number] Result Comment: Brenda mated Glomerular Filtration Rate [...] GFR. Performed By: #### 2 4323-8, 2324-2, 23935-3 ####[facility]IA [id number] [address] [place]#### 39440-9 ####[facility]IA [id number] [address] LABORATORYIA [id number] [place] [address] [place] Glucose [Mass/Vol] 109 mg/dL High 74-99 [facility] Comment on above: Order Comment: Noe [place] Type: BLOOD SPECIMENOrdering Facility: [facility] Address: [address] [place] [address] Result Comment: The [place] Diabetes Association (ADA) provides guidance for cutoff [...] Standards of Medical Care in Diabetes 2016, [place] Diabetes Association. Diabetes Care. 2016.39(Suppl 1). Performed By: #### 2 4323-8, 2323-08, ####[facility] LABCLIA [id number] [place] [address] [place]#### 87325-7 ####[facility] LABCLIA [id number] [address] LABORATORYCLIA [id number] [place] [address] [place] Potassium [Moles/Vol] 4.3 mmol/L Normal 3.7-5.1 [facility] Comment on above: Order Comment: Speci men Type: BLOOD SPECIMENOrdering Facility: [facility] Address: [address] [place] [address] Performed By: #### 2 4323-8, 2323-08, ####[facility] LABCLIA [id number] [place] [address] [place]#### 98315-7 ####[facility] LABCLIA [id number] [place] [address] [place] [facility] LABORATORYCLIA [id number] [place] [address] [place] Protein [Mass/Vol] 7.6 g/dL Normal 6.3-8.0 [facility] Comment on above: Order Comment: Speci men Type: BLOOD SPECIMENOrdering Facility: [facility] Address: [address] [place] [address] Performed By: #### 2 432-8, 2323-2, ####[facility] LABCLIA [id number] [place] [address] [place]#### 85426-5 ####[facility] LABCLIA [id number] [address] [address] [facility] LABORATORYCLIA [id number] [place] [address] [place] Sodium [Moles/Vol] 141 mmol/L Normal 136-144 [facility] Comment on above: Order Comment: Speci men Type: BLOOD SPECIMENOrdering Facility: [facility] Address: [address] [place] [address] Performed By: #### 2 4323-8, 2323-2, ####[facility] LABCLIA [id number] [place] [address] [place]#### 57139-8 ####[facility] LABCLIA [id number] [place] [address] [place] [facility] LABORATORYCLIA [id number] [place] [address] [place] Urea nitrogen [Mass/Vol] 21 mg/dL Normal 9-24 [facility] Comment on above: Order Comment: Speci men Type: BLOOD SPECIMENOrdering Facility: [facility] Address: [address] [id number] Performed By: #### 2 4323-8, 2323-2, ####[facility] LABCLIA [id number] [place] [address] [place]#### 03476-3 ####[facility] LABCLIA [id number] [address] [address] [place] [facility] LABORATORYCLIA [id number] [place] [address] [place] GGT SerPl-cCncon 07-07-2022 Gamma glutamyl transferase [Catalytic activity/Vol] 54 U/L Normal 10-70 [facility] Comment on above: Order Comment: Speci men Type: BLOOD SPECIMENOrdering Facility: [facility] Address: [address] [place] [id number] Performed By: #### 2 4323-8, 2324-2, 38929-9 ####[facility] LABCLIA [id number] [place] [address] [place]#### 78419-9 ####[facility] LABCLIA [id number] [address] STATES [facility] LABORATORYCLIA [id number] [address] [place] Lipid 1996 panelon Cholesterol [Mass/Vol] 180 mg/dL Normal <200 [facility] Comment on above: Order Comment: Speci men Type: BLOOD SPECIMENOrdering Facility: [facility] Address: [address] [place], [place] [address] Result Comment: <200 mg/dL, Desirable 200-239 mg/dL, Borderline high >239 mg/dL, High Performed By: #### 2 4323-8, 4-2, ####[facility] LABCLIA [id number] [place] [address] [place]#### 86600-2 ####[facility] LABCLIA [id number] [place] [address] [place] OF [facility] LABORATORYCLIA [id number] [place] [address] [place] Cholesterol in HDL [Mass/Vol] 36 mg/dL Low >39 [facility] Comment on above: Order Comment: Speci men Type: BLOOD SPECIMENOrdering Facility: [facility] Address: [address] [phone] Result Comment: 40-5 9 mg/dL, Acceptable >59 mg/dL, High: Negative risk factor for coronary heart disease <40 mg/dL, Low: Positive risk factor for coronary heart disease Performed By: #### 2 4323-8, 2324-2, ####[facility] LABCLIA [id number] [place] [address] [place]#### 22367-2 ####[facility] LABCLIA [id number] [place] [address] [place] OF [facility] LABORATORYCLIA [id number] [address] [place] Cholesterol in LDL [Mass/Vol] 106 mg/dL High <100 [facility] Comment on above: Order Comment: Speci men Type: BLOOD SPECIMENOrdering Facility: [facility] Address: [address] [place] [address] Result Comment: <100 mg/dL, Optimal 100-129 mg/dL, Near optimal/above optimal 130-159 mg/dL, Borderline high 160-189 mg/dL, High >189 mg/dL, Very high Secondary prevention optimal LDL Cholesterol levels are recommended to be < 70 mg/dL Performed By: #### 2 4323-8, 4-2, ####[facility] LABCLIA [id number] [address] [place]#### 94653-7 ####[facility] LABCLIA [id number] [place] [address] [place] [facility] LABORATORYCLIA [id number] [place] [address] [place] Cholesterol in LDL/Cholesterol in HDL [Mass ratio] 2.94 {ratio} High <2.54 [facility] Comment on above: Order Comment: Speci men Type: BLOOD SPECIMENOrdering Facility: [facility] Address: [address] [place] [address] Result Comment: Refe rence: 1. National Cholesterol Education Program ATP III Guideline At-A-Glance Quick Desk Reference: National Heart, Lung, and Blood [place]. National Institutes of Health. 2001: NIH Publication No. 01-3305. 2. An International Atherosclerosis Society position paper: global recommendations for the management of dyslipidemia: executive summary, Atherosclerosis. 2014: 232(2):410-413. Performed By: #### 2 4323-8, 2323-2, ####[facility] LABCLIA [id number] [place] [address] [place]#### 54383-4 ####[facility] LABCLIA [id number] [address] [place] LABORATORYCLIA [id number] [place] [address] [place] Cholesterol in VLDL [Mass/Vol] 38 mg/dL High <30 [facility] Comment on above: Order Comment: Speci men Type: BLOOD SPECIMENOrdering Facility: [facility] Address: [address] [place] [address] Performed By: #### 2 3-8, 2323-08, ####[facility] LABCLIA [id number] [place] [address] [place]#### 43444-4 ####[facility] LABCLIA [id number] [place] [address] [facility] LABORATORYCLIA [id number] [place] [address] [place] Cholesterol non HDL [Mass/Vol] 144 mg/dL High <130 [facility] Comment on above: Order Comment: Speci men Type: BLOOD SPECIMENOrdering Facility: [facility] Address: [address] [place] [id number] Result Comment: <130 mg/dL, Optimal 130-159 mg/dL, Near optimal/above optimal 160-189 mg/dL, Borderline high 190-219 mg/dL, High >219 mg/dL, Very high Secondary prevention optimal non HDL Cholesterol levels are recommended to be <100 mg/dL Performed By: #### 2 3-8, 2323-2, ####[facility] LABCLIA [id number] [place] [address] [place]#### 87288-0 ####[facility] LABCLIA [id number] [address] [place] LABORATORYCLIA [id number] [place] [address] [place] [facility] Cholesterol.total/Chol esterol in HDL [Mass ratio] 5.00 {ratio} Normal <5.10 [facility] Comment on above: Order Comment: Speci men Type: BLOOD SPECIMENOrdering Facility: [facility] Address: [address] [place] [address] Performed By: #### 2 4322-8, 2323-08, ####[facility] LABCLIA [id number] [place] [address] [place]#### 10434-6 ####[facility] LABCLIA [id number] [place] [address] [facility] LABORATORYCLIA [id number] [place], [place] [address] [place] [address] [place] FASTING TIME 1 hrs Normal [facility] Comment on above: Order Comment: Speci men Type: BLOOD SPECIMENOrdering Facility: [facility] Address: [address] [place] [phone] Result Comment: veronica ent had lunch Performed By: #### 2 4323-8, 2323-2, ####[facility] LABCLIA [id number] [place] [id number] [place]#### 17685-6 ####[facility] LABCLIA [id number] [address] LABORATORYCLIA [id number] [place] [address] [place] Triglyceride [Mass/Vol] 190 mg/dL High <150 [facility] Comment on above: Order Comment: Speci men Type: BLOOD SPECIMENOrdering Facility: [facility] Address: [address] [place] [address] Result Comment: <150 mg/dL, Normal 150-199 mg/dL, Borderline high 200-499 mg/dL, High >499 mg/dL, Very high Performed By: #### 2 4323-8, 2, ####[facility] LABCLIA [id number] [place] [address] [place]#### 88712-1 ####[facility] LABIA [id number] [address] LABORATORYCLIA [id number] [place] [address] [place] Magnesium SerPl-mCncon 07-07 Magnesium [Mass/Vol] 1.7 mg/dL Normal 1.7-2.3 [facility] Comment on above: Order Comment: Speci men Type: BLOOD SPECIMENOrdering Facility: [facility] Address: [address] [place] [address] Performed By: #### 2 4323-8, 2, ####[facility] LABCLIA [id number] [place] [address] [place]#### 89821-9 ####[facility] LABCLIA [id number] [place] [id number] [facility] LABORATORYCLIA [id number] [place] [address] [place] Phosphate SerPl-mCncon 07-07 Phosphate [Mass/Vol] 3.6 mg/dL Normal 2.7-4.8 [facility] Comment on above: Order Comment: Noe [place] Type: BLOOD SPECIMENOrdering Facility: [facility] Address: [address] [place] [phone] Performed By: #### 2 [id number] ####[facility] LABCLIA [id number] [place] [id number] [place] Tacrolimus Bld-[facility] 2021 Tacrolimus (Bld) [Mass/Vol] 3.0 ng/mL Low 5.0-20.0 [facility] Comment on above: Order Comment: Noe [place]rid Type: BLOOD SPECIMEN [facility] Address: [address] Result Comment: Thes e reference ranges [...] Test performed by chemiluminescent immunoassay using [employer]. Performed By: #### V ITB6 #### [facility] iwoca CLIA [id number] [address] [place] [address] [facility] CHUCKIE VILLALTA ([id number]) 1985 M TRN Date Time Provider Department [...] questions. Nadja Spencer (Cassie) RN, BSN [place] Business Administrator Allergies As of Date: 03/24/2022 Noted Allergy Reaction PENICILLINS 16 - Unknown Comments: Skin test positive 09/01/18 MIDAZOLAM 02/18/2021 14 - Other: See Comments SEASONAL ALLERGIES 06/29/2018 16 - Unknown Date Reviewed: 12/27/2021 Reviewed by: Carlos Muñoz, BATOOL - Fully Assessed Reason for Visit: Reminder To Have Labs Drawn [6636] Prescriptions as of 03/24/2022 - iv contrast [...] Encounter Status:Closed by NADJA SPENCER on 03/24/22 [facility] CNOVon 02-25-2022 CNOV Office Visit (PSCHL) CHUCKIE VILLALTA ([id number]) 1985 M TRN Date Time Provider Department 02/25/22 9:00 AM ROSEMARIE DURAN During your visit today, we recorded the following information about you: Rosemarie SHAQ Duran 02/25/2022 10:46 AM Signed [facility] Assessment Visit Type:Virtual Visit utilizing two-way audio and video for at least a portion of the visit IDENTIFYING INFORMATION: [phone] [email or web address] Lives with of nine years, Екатерина and [...] consented to virtual evaluation. Patient and this law writer present during interview. PRECIPITATING PROBLEM(S):Patient was dx with liver disease in 2017. Completed an IOP at [facility] in summer 2018, and received liver transplant [...] Age 16, every other weekend. Went to [place] for college drank heavily on weekends, then [...] was intend (more content not included)... Normal [facility] [place] CT ABDOMEN W IVCONon [facility] Basic Metabolic Panlon 07-12 Anion gap [Moles/Vol] 8 mmol/L Low 9-18 [facility] Calcium [Mass/Vol] 8.6 mg/dL Normal 8.5-10.2 [facility] Chloride [Moles/Vol] 103 mmol/L Normal 97-105 [facility] CO2 [Moles/Vol] 24 mmol/L Normal 22-30 [facility] Creatinine [Mass/Vol] 2.67 mg/dL High 0.73-1.22 [facility] eGFR- Amer. 33 Normal [facility] eGFR-All Other Races 27 . Normal [facility] Comment on above: Result Comment: eGFR [...] [email or web address]. Glucose [Mass/Vol] 113 mg/dL High 74-99 [facility] Comment on above: Result Comment: The [place] Diabetes Association (ADA) provides guidance for cutoff [...] Standards of Medical Care in Diabetes 2016, [place] Diabetes Association. Diabetes Care. 2016.39(Suppl 1). Potassium [Moles/Vol] 3.3 mmol/L Low 3.7-5.1 [facility] Sodium [Moles/Vol] 135 mmol/L Low 136-144 [facility] Urea nitrogen [Mass/Vol] 11 mg/dL Normal 9-24 [facility] CASE MANAGEMon 07-12-2021 CASE MANAGEM HNO ID: [id number] Author: Nanette Dangelo RN Service: ? Author [...] 12, 2021 TIME: 4:48 PM PAGER/CONTACT #: Normal [facility] CNDSon 07-12-2021 CNDS HNO ID: [id number] Author: [place] MD Service: Hospital Medicine [...] GI team who [facility] but at this time planning to [...] 1.3. He was seen by infectious disease mainframe consultant today who recommended adding G6PD to [...] specialist. You were also seen by pain case management manager while you are in the hospital. I have not added any pain medications due to near complete resolution of symptoms. You were seen by neurologist recently for the patient's symptoms. They will follow up as an outpatient also. Please follow-up with primary MD in 1 week Follow-up with transplant team at the earliest available appointment-infection prevention coordinator has promised to set up an [...] identified Vision (more content not included)... Normal [facility] CONSULTon 07-12-2021 CONSULT HNO ID: [id number] Author: Latrell Cabello MD Service: Infectious Disease [...] Smoking status: Nev (more content not included)... [facility] CONSULT PROGon 07-12-2021 CONSULT PROG HNO ID: [id number] Author: Justin Glasgow PA-C Service: Pain Management Author Type: Physician Applique Cutter Type: Consult Progress Note Filed: 07/12/2021 4:02 [...] Pain scores overnight between 4-8/10 per Vital An/Syq 13 Nav/C2 Operator. The patient's current inpatient analgesic regimen has [...] Garrido, PA-C July 12, 2021 4:01 PM [facility] CONSULT PROG HNO ID: [id number] Author: Spike Gandara MD Service: Nephrology Author Type: Physician Type: Consult Progress Note Filed: 07/12/2021 12:22 PM Note Text: [facility] NEPHROLOGY CONSULT PROGRESS NOTE SERVICE DATE: [...] DATE: July 12, 2021 12:22 PM PHONE: [phone] FOR AFTER HOUR CONCERNS BETWEEN 7PM - 7AM CONTACT ON-CALL NEPHROLOGY STAFF Normal [facility] Hepatic Functn Panelon 07-12 Albumin [Mass/Vol] 3.0 g/dL Low 3.9-4.9 [facility] ALP [Catalytic activity/Vol] 292 U/L High 38-113 [facility] ALT [Catalytic activity/Vol] 44 U/L Normal 10-54 [facility] AST [Catalytic activity/Vol] 129 U/L High 14-40 [facility] Bilirubin [Mass/Vol] 1.6 mg/dL High 0.2-1.3 [facility] Bilirubin,Conjugated 1.0 mg/dL High <0.2 [facility] Protein [Mass/Vol] 5.7 g/dL Low 6.3-8.0 [facility] NURSING PROGon 07-12-2021 NURSING PROG HNO ID: [id number] Author: Marcela Mcdaniel RN Service: Nursing Author Type: Registered Nurse Type: Nursing Progress Note Filed: 07/12/2021 1:03 AM Note Text: Nursing Progress Note Patient Name: Chuckie Villalta Patient Location: / Daily Note: Report received from BATOOL Nolan. Pt resting comfortably in bed. Will continue to monitor. This note was completed by: Marcela Mcdaniel Normal [facility] Tacrolimus / [id number] 021 Tacrolimus / FK506 7.7 ng/mL Normal 5.0-20.0 [facility] Comment on above: Result Comment: Thes [...] situation. Test performed by chemiluminescent immunoassay using [employer]. Performed By: #### F K506 ####[facility] [address] [place], [place] [phone] Amylaseon 07-11-2021 Amylase [Catalytic activity/Vol] 59 U/L Normal 30-104 [facility] Basic Metabolic Panlon 07-11 Anion gap [Moles/Vol] 10 mmol/L Normal 9-18 [facility] Calcium [Mass/Vol] 8.5 mg/dL Normal 8.5-10.2 [facility] Chloride [Moles/Vol] 103 mmol/L Normal 97-105 [facility] CO2 [Moles/Vol] 22 mmol/L Normal 22-30 [facility] Creatinine [Mass/Vol] 2.77 mg/dL High 0.73-1.22 [facility] eGFR- Amer. 32 Normal [facility] eGFR-All Other Races 26 . Normal [facility] Comment on above: Result Comment: eGFR [...] [email or web address]/gfr_[email or web address]. Glucose [Mass/Vol] 122 mg/dL High 74-99 [facility] Comment on above: Result Comment: The [place] Diabetes Association (ADA) provides guidance for cutoff [...] Standards of Medical Care in Diabetes 2016, [place] Diabetes Association. Diabetes Care. 2016.39(Suppl 1). Potassium [Moles/Vol] 3.5 mmol/L Low 3.7-5.1 [facility] Sodium [Moles/Vol] 135 mmol/L Low 136-144 [facility] Urea nitrogen [Mass/Vol] 12 mg/dL Normal 9-24 [facility] CONSULT PROGon 07-11-2021 CONSULT PROG HNO ID: [id number] Author: Spike Gandara MD Service: Nephrology Author Type: Physician Type: Consult Progress Note Filed: 07/11/2021 1:06 PM Note Text: [facility] NEPHROLOGY CONSULT PROGRESS NOTE SERVICE DATE: [...] stenosis, seem by GI, [facility] ? 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 The patient's current inpatient analgesic regimen includes: [...] PA-C July 11, 2021 11:02 AM Normal [facility] Amylaseon 07-10-2021 Amylase [Catalytic activity/Vol] 51 U/L Normal 30-104 [facility] Basic Metabolic Panlon 07-10 Anion gap [Moles/Vol] 10 mmol/L Normal 9-18 [facility] Calcium [Mass/Vol] 8.5 mg/dL Normal 8.5-10.2 [facility] Chloride [Moles/Vol] 106 mmol/L High 97-105 [facility] CO2 [Moles/Vol] 21 mmol/L Low 22-30 [facility] Creatinine [Mass/Vol] 2.80 mg/dL High 0.73-1.22 [facility] eGFR- Amer. 31 Normal [facility] eGFR-All Other Races 26 . Normal [facility] Comment on above: Result Comment: eGFR [...] [email or web address]/gfr_calculator. Glucose [Mass/Vol] 126 mg/dL High 74-99 [facility] Comment on above: Result Comment: The [place] Diabetes Association (ADA) provides guidance for cutoff [...] Standards of Medical Care in Diabetes 2016, [place] Diabetes Association. Diabetes Care. 2016.39(Suppl 1). Potassium [Moles/Vol] 3.5 mmol/L Low 3.7-5.1 [facility] Sodium [Moles/Vol] 137 mmol/L Normal 136-144 [facility] Urea nitrogen [Mass/Vol] 13 mg/dL Normal 9-24 [facility] CONSULT PROGon 07-10-2021 CONSULT PROG HNO ID: [id number] Author: Justin Glasgow PA-C Service: Pain Management Author Type: Physician Applique Cutter Type: Consult Progress Note Filed: 07/10/2021 12:38 [...] Pain scores overnight between 4-7/10 per Vital An/Syq 13 Nav/C2 Operator. The patient's current inpatient analgesic regimen includes: [...] MPAS, PA-C July 10, 2021 12:38 PM [facility] CONSULT PROG HNO ID: [id number] Author: Spike Gandara MD Service: Nephrology Author Type: Physician Type: Consult Progress Note Filed: 07/10/2021 11:42 AM Note Text: [facility] NEPHROLOGY CONSULT PROGRESS NOTE SERVICE DATE: [...] stenosis, seem by GI, [facility] ? Hemochromatosis s/p OLT on immunosuppression [...] DATE: July 10, 2021 11:41 AM PHONE: [phone] FOR AFTER HOUR CONCERNS BETWEEN 7PM - 7AM CONTACT ON-CALL NEPHROLOGY STAFF Normal [facility] Tacrolimus / [id number] 07-10- 021 Tacrolimus / FK506 9.3 ng/mL Normal 5.0-20.0 [facility] Comment on above: Result Comment: Thes [...] situation. Test performed by chemiluminescent immunoassay using [employer]. Performed By: #### F K506 ####[facility] [place], [place] [phone] [facility] 07-09-2021 [facility] HNO ID: [id number] Author: Tulio Null RT(R) Service: ? Author Type: Technologist Type: Allied [...] Kristyn(R) July 08, 2021 11:17 PM Normal [facility] CASE MANAGEMon 07-09-2021 CASE MANAGEM HNO ID: [id number] Author: Nanette Dangelo RN Service: ? Author [...] 2021 TIME: 6:19 PM PAGER/CONTACT #: Normal [facility] CBC and Differentialon 07-09 Abs Baso 0.00 k/uL Normal <0.11 [facility] Abs [place] 1.28 k/uL High <0.87 [facility] Abs Neut 7.42 k/uL Normal 1.45-7.50 [facility] ANC(includeSEG+BAND) 7.42 k/uL Normal [facility] Anisocytosis Ql (Bld) Present Normal [facility] Basophils/100 WBC (Bld) 0.0 % Normal [facility] DTYPE Manual Diff Normal [facility] Eosinophils (Bld) [#/Vol] 0.00 10*3/uL Normal <0.46 [facility] Eosinophils/100 WBC (Bld) 0.0 % Normal [facility] Erythrocyte distribution width (RBC) [Ratio] 15.6 % High 11.5-15.0 [facility] Hematocrit (Bld) [Volume fraction] 26.3 % Low 39.0-51.0 [facility] Hemoglobin (Bld) [Mass/Vol] 9.1 g/dL Low 13.0-17.0 [facility] Left Shift Present Normal [facility] Lymphocytes (Bld) [#/Vol] 0.37 10*3/uL Low 1.00-4.00 [facility] Lymphocytes/100 WBC (Bld) 4.0 % Normal [facility] MCH 35.0 pG High 26.0-34.0 [facility] MCHC (RBC) [Mass/Vol] 34.6 g/dL Normal 30.5-36.0 [facility] MCV (RBC) [Entitic vol] 101.2 fL High 80.0-100.0 [facility] Monocytes/100 WBC (Bld) 14.0 % Normal [facility] Myelo% 1.0 % Normal [facility] Neutrophils/100 WBC (Bld) 81.0 % Normal [facility] Platelet Estimate Platelet estimate decreased Normal [facility] Platelet mean volume (Bld) [Entitic vol] 12.3 fL Normal 9.0-12.7 [facility] Platelets (Bld) [#/Vol] 59 10*3/uL Low 150-400 [facility] Polychromasia Slight Normal [facility] RBC (Bld) [#/Vol] 2.60 10*6/uL Low 4.20-6.00 [facility] WBC (Bld) [#/Vol] 9.16 10*3/uL Normal 3.70-11.00 [facility] CONSULT PROGon 07-09-2021 CONSULT PROG HNO ID: [id number] Author: Justin Glasgow PA-C Service: Pain Management Author Type: Physician Applique Cutter Type: Consult Progress Note Filed: 07/09/2021 3:41 [...] Pain scores overnight between 4-8/10 per Vital An/Syq 13 Nav/C2 Operator. The patient's current inpatient analgesic regimen includes: [...] Garrido, PA-C July 09, 2021 3:41 PM [facility] CONSULT PROG HNO ID: [id number] Author: Ana Cotton APRN.HERNANDEZ Service: Gastroenterology Author [...] Pt continues to wait for bed at [facility], pt will likely still be inpatient for few days while monitoring kidney function and tacro levels if does not get a bed still at that time and tolerating diet can likely get scheduled for ERCP at [facility] as outpatient Will continue to monitor peripherally Normal [facility] CONSULT PROG HNO ID: [id number] Author: Spike Gandara MD Service: Nephrology Author Type: Physician Type: Consult Progress Note Filed: 07/09/2021 12:32 PM Note Text: [facility] NEPHROLOGY CONSULT PROGRESS NOTE SERVICE DATE: [...] Medications: Allergies: Penicillins Unknown Comment:Skin test positive 2/6/19 Seasonal Allergies Unknown Current Facility-Administered Medications Medication [...] stenosis, seem by GI, [facility] ? Hemochromatosis s/p OLT on immunosuppression [...] DATE: July 09, 2021 11:39 AM PHONE: [phone] FOR AFTER HOUR CONCERNS BETWEEN 7PM - 7AM CONTACT ON-CALL NEPHROLOGY STAFF [facility] CONSULT PROG HNO ID: [id number] Author: Valencia Noguera RP Service: Pharmacy Author [...] have reviewed the above information with the student/resident or medical office technician and agree with the assessment/plan described. Changes or additions to the note are indicated by italics and . Valencia Noguera, Pharmacist 07/09/2021 7:54 AM Ext: [phone] [facility] CONSULT PROG HNO ID: [id number] Author: Lei Mckoy RPh Service: Pharmacy Author Type: Pharmacist Type: [...] (H) Lei Mckoy, [facility] Normal [facility] Comp Metabolic Panelon 07-09 Albumin [Mass/Vol] 2.9 g/dL Low 3.9-4.9 [facility] ALP [Catalytic activity/Vol] 63 U/L Normal 38-113 [facility] ALT [Catalytic activity/Vol] 16 U/L Normal 10-54 [facility] Anion gap [Moles/Vol] 8 mmol/L Low 9-18 [facility] AST [Catalytic activity/Vol] 17 U/L Normal 14-40 [facility] Bilirubin [Mass/Vol] 1.0 mg/dL Normal 0.2-1.3 [facility] Calcium [Mass/Vol] 8.0 mg/dL Low 8.5-10.2 [facility] Chloride [Moles/Vol] 109 mmol/L High 97-105 [facility] CO2 [Moles/Vol] 20 mmol/L Low 22-30 [facility] Creatinine [Mass/Vol] 2.83 mg/dL High 0.73-1.22 [facility] eGFR- Amer. 31 Normal [facility] eGFR-All Other Races 26 . Normal [facility] Comment on above: Result Comment: eGFR [...] [email or web address]/gfr_calculator. Glucose [Mass/Vol] 174 mg/dL High 74-99 [facility] Comment on above: Result Comment: The [place] Diabetes Association (ADA) provides guidance for cutoff [...] Standards of Medical Care in Diabetes 2016, [place] Diabetes Association. Diabetes Care. 2016.39(Suppl 1). Potassium [Moles/Vol] 3.8 mmol/L Normal 3.7-5.1 [facility] Protein [Mass/Vol] 5.1 g/dL Low 6.3-8.0 [facility] Sodium [Moles/Vol] 137 mmol/L Normal 136-144 [facility] Urea nitrogen [Mass/Vol] 16 mg/dL Normal 9-24 [facility] MRI BRAIN WO IVCONon 07-09-2 021 MRI BRAIN WO IVCON * * *Final Report* * * DATE OF EXAM: Jul 08 2021 11:28PM [facility] 0294 - MRI BRAIN WO IVCON [...] if there is concern for demyelinating disease. Business Account Manager: GUILLE Transcribe Date/Time: Jul 09 2021 2:02A Dictated by : CARLOS ALEJANDRA MD This examination was interpreted and the report reviewed and electronically signed by: CARLOS ALEJANDRA MD on Jul 09 2021 2:09AM EST [id number] Normal [facility] Magnesiumon 07-09-2021 Magnesium [Mass/Vol] 1.8 mg/dL Normal 1.7-2.3 [facility] NURSING PROGon 07-09-2021 NURSING PROG HNO ID: [id number] Author: Demetrice Chacon RN Service: Nursing Author [...] note was completed by: Demetrice Chacon Normal [facility] Protein/Creatinine Ratioon 1 09-09-2020 Creatinine,Urine,Ran 68.3 mg/dL Normal 20-300 [facility] Comment on above: Performed By: #### P RATIO ####[facility] [address] [place], [place] [phone] Protein (U) [Mass/Vol] 7 mg/dL Normal 0-20 [facility] Comment on above: Performed By: #### P RATIO ####[facility] [address] [place], [place] [phone] Protein/Creatinine Ratio 0.1 Normal <0.2 [facility] Comment on above: Performed By: #### P RATIO ####[facility] [address] [place], [place] [phone] Urinalysis with Microscopico n 07-09-2021 Bilirubin, Urine Negative Normal Negative [facility] Cast SEE COMMENT Normal 0 [facility] Comment on above: Result Comment: 0 Clarity (U) Clear Normal Clear [facility] Color (U) Yellow Normal Yellow [facility] Glucose Ql (U) 1+ mg/dL Critically abnormal Negative [facility] Hemoglobin/Blood,Ur Negative Normal Negative [facility] Ketones Ql (U) Negative Normal Negative [facility] Leukest Negative Normal Negative [facility] Nitrite Ql (U) Negative Normal Negative [facility] pH (U) 5.5 [pH] Normal 5.0-8.0 [facility] Protein, Urine Trace Critically abnormal Negative [facility] RBC 0-3 Normal 0-3 [facility] Specific [place], Ur 1.010 Normal 1.005-1.030 [facility] Urobilinogen Qn (U) 0.2 {Andrea'U}/dL Normal 0.2-1.0 [facility] WBC 0-5 Normal 0-5 [facility] ALLIED HEALTHon 07-08-2021 ALLIED HEALTH HNO ID: [id number] Author: Joshua Moran Service: Spiritual Care Author Type: ? Type: Allied Health Filed: 07/08/2021 1:06 PM Note Text: SPIRITUAL CARE PROGRESS NOTE SERVICE DATE: 07/08/2021 SERVICE TIME: 12:45PM Pt listed as [employer] in [facility], and he shared that he and his family attend the Chapel in [place], [place]; pt in good spirits but drowsy at the time of visit; shared that he has undergone a liver transplant, and is now dealing with pancreatitis; provided him with a daily devotional for his use, and offered a blessing bedside; no follow-up planned unless requested. To contact the Spiritual Care Department: Please call Ext [phone] SIGNATURE: Joshua Moran PATIENT NAME: Chuckie Villalta DATE: July 08, 2021 TIME: 1:04 PM PAGER/CONTACT #: [phone] Normal [facility] CBC and Differentialon 07-08 Abs Baso 0.00 k/uL Normal <0.11 [facility] Abs [place] 1.25 k/uL High <0.87 [facility] Abs Neut 6.26 k/uL Normal 1.45-7.50 [facility] ANC(includeSEG+BAND) 6.26 k/uL Normal [facility] Anisocytosis Ql (Bld) Present Normal [facility] Basophils/100 WBC (Bld) 0.0 % Normal [facility] DTYPE Manual Diff Normal [facility] Eosinophils (Bld) [#/Vol] 0.00 10*3/uL Normal <0.46 [facility] Eosinophils/100 WBC (Bld) 0.0 % Normal [facility] Erythrocyte distribution width (RBC) [Ratio] 15.7 % High 11.5-15.0 [facility] Hematocrit (Bld) [Volume fraction] 26.0 % Low 39.0-51.0 [facility] Hemoglobin (Bld) [Mass/Vol] 9.0 g/dL Low 13.0-17.0 [facility] Left Shift Present Normal [facility] Lymphocytes (Bld) [#/Vol] 0.23 10*3/uL Low 1.00-4.00 [facility] Lymphocytes/100 WBC (Bld) 3.0 % Normal [facility] MCH 35.4 pG High 26.0-34.0 [facility] MCHC (RBC) [Mass/Vol] 34.6 g/dL Normal 30.5-36.0 [facility] MCV (RBC) [Entitic vol] 102.4 fL High 80.0-100.0 [facility] Monocytes/100 WBC (Bld) 16.0 % Normal [facility] Myelo% 1.0 % Normal [facility] Neutrophils/100 WBC (Bld) 80.0 % Normal [facility] Platelet Estimate Platelet estimate decreased Normal [facility] Platelet mean volume (Bld) [Entitic vol] 12.3 fL Normal 9.0-12.7 [facility] Platelets (Bld) [#/Vol] 39 10*3/uL Low 150-400 [facility] Polychromasia Slight Normal [facility] RBC (Bld) [#/Vol] 2.54 10*6/uL Low 4.20-6.00 [facility] WBC (Bld) [#/Vol] 7.82 10*3/uL Normal 3.70-11.00 [facility] CONSULTon 07-08-2021 CONSULT HNO ID: [id number] Author: Justin Glasgow PA-C Service: Pain Management Author Type: Physician Applique Cutter Type: Consults Filed: 07/08/2021 2:06 PM Note Text: PAIN MANAGEMENT CONSULT -- [facility] PATIENT NAME: Chuckie Villalta DATE of [...] is consulted RE: acute pancreatitis, on fentanyl scooper by Dr. Jolynn Jaquez and Lisseth Raymond [...] (PF) 4 mg injection (ZOFRAN) - fentaNYL GOLF CART ATTENDANT 20 mcg/mL in NaCl 0.9% 100 mL [...] 129* 167* TP (more content not included)... [facility] CONSULT HNO ID: [id number] Author: Spike Gandara MD Service: Nephrology Author Type: Physician Type: Consults Filed: 07/08/2021 2:05 PM Note Text: [facility] NEPHROLOGY AND HYPERTENSION [facility] SERVICE DATE: July [...] mg injection (ZOF (more content not included)... [facility] CONSULT PROGon 07-08-2021 CONSULT PROG HNO ID: [id number] Author: Ana Cotton APRN.SALES ADVISORY MANAGER Service: Gastroenterology Author Type: Nurse Practitioner Type: [...] Splenomegaly. 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 Will discuss with staff and SM Dr. Quezada as well. Normal [facility] Calcium, Ionizedon Calcium, Ionized 1.12 mmol/L Normal 1.08-1.30 [facility] Comp Metabolic Panelon 07-08 Albumin [Mass/Vol] 2.9 g/dL Low 3.9-4.9 [facility] ALP [Catalytic activity/Vol] 60 U/L Normal 38-113 [facility] ALT [Catalytic activity/Vol] 22 U/L Normal 10-54 [facility] Anion gap [Moles/Vol] 8 mmol/L Low 9-18 [facility] AST [Catalytic activity/Vol] 38 U/L Normal 14-40 [facility] Bilirubin [Mass/Vol] 1.6 mg/dL High 0.2-1.3 [facility] Calcium [Mass/Vol] 8.0 mg/dL Low 8.5-10.2 [facility] Chloride [Moles/Vol] 106 mmol/L High 97-105 [facility] CO2 [Moles/Vol] 18 mmol/L Low 22-30 [facility] Creatinine [Mass/Vol] 2.34 mg/dL High 0.73-1.22 [facility] eGFR- Amer. 39 Normal [facility] eGFR-All Other Races 32 . Normal [facility] Comment on above: Result Comment: eGFR [...] [email or web address]/gfr_[email or web address]. Glucose [Mass/Vol] 107 mg/dL High 74-99 [facility] Comment on above: Result Comment: The [place] Diabetes Association (ADA) provides guidance for cutoff [...] Standards of Medical Care in Diabetes 2016, [place] Diabetes Association. Diabetes Care. 2016.39(Suppl 1). Potassium [Moles/Vol] 3.9 mmol/L Normal 3.7-5.1 [facility] Protein [Mass/Vol] 4.9 g/dL Low 6.3-8.0 [facility] Sodium [Moles/Vol] 132 mmol/L Low 136-144 [facility] Urea nitrogen [Mass/Vol] 17 mg/dL Normal 9-24 [facility] Lipaseon 07-08-2021 Lipase [Catalytic activity/Vol] 235 U/L High 16-61 [facility] Magnesiumon 07-08-2021 Magnesium [Mass/Vol] 1.4 mg/dL Low 1.7-2.3 [facility] Tacrolimus / [id number] Tacrolimus / FK506 23.3 ng/mL High 5.0-20.0 [facility] Comment on above: Result Comment: Thes [...] situation. Test performed by chemiluminescent immunoassay using [employer]. Performed By: #### F K506 ####[facility] [address] [place], [place] [phone] US ABD RIGHT UPPER QUADRANTo n 07-08-2021 [...] 5. Trace ascites in the upper abdomen. Business Account Manager: GUILLE Transcribe Date/Time: Jul 08 2021 12:28P Dictated by : ROCIO MANZO MD This examination was interpreted and the report reviewed and electronically signed by: ROCIO MANZO MD on Jul 08 2021 12:32PM EST [id number] [facility] US ABD SPLEEN -NBon 07-08-20 US ABD SPLEEN -NB * * *Final Report* * * DATE OF EXAM: Jul 08 2021 12:08PM [facility] 1232 - US ABD SPLEEN -NB [...] 5. Trace ascites in the upper abdomen. Business Account Manager: [facility] Transcribe Date/Time: Jul 08 2021 12:28P Dictated by : ROCIO MANZO MD This examination was interpreted and the report reviewed and electronically signed by: ROCIO MANZO MD on Jul 08 2021 12:32PM EST [id number] [facility] Vancomycinon 07-08-2021 Vancomycin 18.6 ug/mL Normal 10.0-20.0 [facility] Comment on above: Result Comment: Refe rence ranges and high/low indicator flags are provided as general guidelines only. The treating physician must determine appropriate target levels/dosing based on the specific clinical situation. CBCon 07-07-2021 Absolute nRBC 0.03 k/uL High <0.01 [facility] Erythrocyte distribution width (RBC) [Ratio] 15.7 % High 11.5-15.0 [facility] Hematocrit (Bld) [Volume fraction] 29.1 % Low 39.0-51.0 [facility] Hemoglobin (Bld) [Mass/Vol] 10.5 g/dL Low 13.0-17.0 [facility] MCH 36.2 pG High 26.0-34.0 [facility] MCHC (RBC) [Mass/Vol] 36.1 g/dL High 30.5-36.0 [facility] MCV (RBC) [Entitic vol] 100.3 fL High 80.0-100.0 [facility] Platelet mean volume (Bld) [Entitic vol] 11.8 fL Normal 9.0-12.7 [facility] Platelets (Bld) [#/Vol] 45 10*3/uL Low 150-400 [facility] RBC (Bld) [#/Vol] 2.90 10*6/uL Low 4.20-6.00 [facility] WBC (Bld) [#/Vol] 9.23 10*3/uL Normal 3.70-11.00 [facility] CONSULT PROGon 07-07-2021 CONSULT PROG HNO ID: [id number] Author: Valencia Noguera [facility] Service: [...] have any questions, please contact pharmacy at [phone]. Age: [age] year old Allergies: ALLERGIES Allergen [...] (H) Valencia Noguera, [facility] Normal [facility] Comp Metabolic Panelon 07-07 Albumin [Mass/Vol] 3.0 g/dL Low 3.9-4.9 [facility] ALP [Catalytic activity/Vol] 70 U/L Normal 38-113 [facility] ALT [Catalytic activity/Vol] 41 U/L Normal 10-54 [facility] Anion gap [Moles/Vol] 9 mmol/L Normal 9-18 [facility] AST [Catalytic activity/Vol] 131 U/L High 14-40 [facility] Bilirubin [Mass/Vol] 4.9 mg/dL High 0.2-1.3 [facility] Calcium [Mass/Vol] 7.9 mg/dL Low 8.5-10.2 [facility] Chloride [Moles/Vol] 105 mmol/L Normal 97-105 [facility] CO2 [Moles/Vol] 18 mmol/L Low 22-30 [facility] Creatinine [Mass/Vol] 1.63 mg/dL High 0.73-1.22 [facility] eGFR- Amer. 59 Normal [facility] eGFR-All Other Races 48 . Normal [facility] Comment on above: Result Comment: eGFR [...] [email or web address]/[email or web address]/gfr_calculator. Glucose [Mass/Vol] 110 mg/dL High 74-99 [facility] Comment on above: Result Comment: The [place] Diabetes Association (ADA) provides guidance for cutoff [...] Standards of Medical Care in Diabetes 2016, [place] Diabetes Association. Diabetes Care. 2016.39(Suppl 1). Potassium [Moles/Vol] 4.1 mmol/L Normal 3.7-5.1 [facility] Protein [Mass/Vol] 5.0 g/dL Low 6.3-8.0 [facility] Sodium [Moles/Vol] 132 mmol/L Low 136-144 [facility] Urea nitrogen [Mass/Vol] 15 mg/dL Normal 9-24 [facility] NURSING PROGon 07-07-2021 NURSING PROG HNO ID: [id number] Author: Preethi Slater RN Service: Nursing Author Type: Registered Nurse Type: Nursing Progress Note Filed: 07/06/2021 11:25 PM Note Text: Nursing Progress Note Patient Name: Chuckie Villalta Patient [facility] Transfer Note: Patient transferred from [facility] Room 426 to [facility] Room 414 by bed in stable condition with IV fluids, IV antibiotics, and a GOLF CART ATTENDANT pump with on demand fentanyl. Vital signs obtained, patient oriented to room. Call light within reach. This note was completed by: Preethi Slater RN [facility] NURSING PROG HNO ID: [id number] Author: Delilah Le RN Service: Nursing Author Type: Registered Nurse Type: Nursing Progress Note Filed: 07/06/2021 10:24 PM Note Text: Report called to room 414 Vicenta RN patient aware of tranfer. Belongings with patient , transferred juanpablo new room with RN in bed, vs stable. Normal [facility] Vancomycinon 07-07-2021 Vancomycin 37.3 ug/mL High 10.0-20.0 [facility] Comment on above: Result Comment: Refe rence ranges and high/low indicator flags are provided as general guidelines only. The treating physician must determine appropriate target levels/dosing based on the specific clinical situation. CASE MGT INIT Anton 2020 CASE MGT INIT MAU HNO ID: [id number] Author: Mariluz Salamanca RN Service: Nursing Author Type: Registered Nurse Type: Care Mgt Initial Assessment Filed: 07/06/2021 2:04 PM Note Text: CARE MANAGEMENT: ASSESSMENT AND DISCHARGE PLAN SERVICE DATE: July 06, 2021 SERVICE TIME: 1:59 PM PRIMARY CARE PHYSICIAN: Luis Abdalla DO ADMISSION STATUS: Inpatient MEDICAL: [facility] COMMUNITY PLAN MEDICAID Health Insurance: [facility] ([facility] [employer] Medicaid) Last Discharge Date: 02/13/20 Is this Within the Past 30 days? Advance Directive: Current Advance Directive: Health Care Power of Supervisor Bonding In Chart: Yes Up To Date and Valid: Yes Baseline Mental Status Prior to this Illness what was the patient's Baseline Mental Status?: Alert AND Oriented Prior to this illness, has anyone described the patient having any of the following behaviors?: Not Applicable Relationship of the informant to the patient:: Self Primary Contact: Extended Emergency Contact Information Primary Emergency Contact: Remedios Villalta Address: [address] [place] [address] [facility] Mobile Relation: Spouse Supportive Patient Contact:: Yes Contact Resources: Family;Significant Other FREEDOM OF CHOICE EXPLAINED: Tarzan of Choice Given: No Reason Not Given: [...] 06, 2021 TIME: 1:59 PM PAGER/CONTACT #: [phone] [facility] CBC and Differentialon 07-06 Abs Baso 0.00 k/uL Normal <0.11 [facility] Abs [place] 0.64 k/uL Normal <0.87 [facility] Abs Neut 8.13 k/uL High 1.45-7.50 [facility] ANC(includeSEG+BAND) 8.13 k/uL Normal [facility] Basophils/100 WBC (Bld) 0.0 % Normal [facility] DTYPE Manual Diff Normal [facility] Eosinophils (Bld) [#/Vol] 0.09 10*3/uL Normal <0.46 [facility] Eosinophils/100 WBC (Bld) 1.0 % Normal [facility] Erythrocyte distribution width (RBC) [Ratio] 14.6 % Normal 11.5-15.0 [facility] Hematocrit (Bld) [Volume fraction] 30.9 % Low 39.0-51.0 [facility] Hemoglobin (Bld) [Mass/Vol] 11.4 g/dL Low 13.0-17.0 [facility] Left Shift Present Normal [facility] Lymphocytes (Bld) [#/Vol] 0.27 10*3/uL Low 1.00-4.00 [facility] Lymphocytes/100 WBC (Bld) 3.0 % Normal [facility] MCH 35.0 pG High 26.0-34.0 [facility] MCHC (RBC) [Mass/Vol] 36.9 g/dL High 30.5-36.0 [facility] MCV (RBC) [Entitic vol] 94.8 fL Normal 80.0-100.0 [facility] Monocytes/100 WBC (Bld) 7.0 % [facility] Neutrophils/100 WBC (Bld) 89.0 % [facility] Platelet Estimate Platelet estimate decreased Normal [facility] Platelet mean volume (Bld) [Entitic vol] 11.3 fL Normal 9.0-12.7 [facility] Platelets (Bld) [#/Vol] 63 10*3/uL Low 150-400 [facility] RBC (Bld) [#/Vol] 3.26 10*6/uL Low 4.20-6.00 [facility] Red Cell Morph SEE COMMENT Normal [facility] Comment on above: Result Comment: Unre markable WBC (Bld) [#/Vol] 9.13 10*3/uL Normal 3.70-11.00 [facility] CONSULTon 07-06-2021 CONSULT HNO ID: [id number] Author: Og Gibbs MD Service: Gastroenterology Author [...] and hi s [facility] giving his complex medica history and the need for repeated ERCP Dr. Wilburn reviewed the case too and agreed to transfer the patient to for further care [facility] CONSULT PROGon 07-06-2021 CONSULT PROG HNO ID: [id number] Author: Pearl Mann [facility] Service: [...] any questions, please contact Pharmacy at ex [phone]. Age: [age] year old Allergies: ALLERGIES Allergen [...] for: CHIDI Mann, [facility] Normal [facility] Comp Metabolic Panelon 07-06 Albumin [Mass/Vol] 3.5 g/dL Low 3.9-4.9 [facility] ALP [Catalytic activity/Vol] 60 U/L Normal 38-113 [facility] ALT [Catalytic activity/Vol] 60 U/L High 10-54 [facility] Anion gap [Moles/Vol] 15 mmol/L Normal 9-18 [facility] AST [Catalytic activity/Vol] 361 U/L High 14-40 [facility] Bilirubin [Mass/Vol] 6.6 mg/dL High 0.2-1.3 [facility] Calcium [Mass/Vol] 7.8 mg/dL Low 8.5-10.2 [facility] Chloride [Moles/Vol] 102 mmol/L Normal 97-105 [facility] CO2 [Moles/Vol] 15 mmol/L Low 22-30 [facility] Creatinine [Mass/Vol] 1.73 mg/dL High 0.73-1.22 [facility] eGFR- Amer. 55 Normal [facility] eGFR-All Other Races 45 . Normal [facility] Comment on above: Result Comment: eGFR [...] kidney.[email or web address]/professionals/kdoqi/gfr_calculator. Glucose [Mass/Vol] 129 mg/dL High 74-99 [facility] Comment on above: Result Comment: The [place] Diabetes Association (ADA) provides guidance for cutoff [...] Standards of Medical Care in Diabetes 2016, [place] Diabetes Association. Diabetes Care. 2016.39(Suppl 1). Potassium [Moles/Vol] 4.3 mmol/L Normal 3.7-5.1 [facility] Protein [Mass/Vol] 5.2 g/dL Low 6.3-8.0 [facility] Sodium [Moles/Vol] 132 mmol/L Low 136-144 [facility] Urea nitrogen [Mass/Vol] 17 mg/dL Normal 9-24 [facility] ED NOTEon 07-06-2021 ED NOTE HNO ID: [id number] Author: Marcela Corley RN Service: Nursing Author Type: Registered Nurse Type: ED Notes Filed: 07/06/2021 4:57 AM Note Text: Report to Loraine RENAE. [facility] ED NOTE HNO ID: [id number] Author: Marcela Corley RN Service: Nursing Author Type: Registered Nurse Type: ED Notes Filed: 07/06/2021 4:51 AM Note Text: Pt resting in bed at this time. Call light within reach, will continue to monitor. [facility] Expedited [id number] 07-06-20 SARS-CoV-2 (COVID-19) RNA NOLBERTO+probe Ql (Unsp spec) UPPER RESPIRATORY TRACT SWAB [facility] SARS-CoV-2 (COVID-19) RNA NOLBERTO+probe Ql (Unsp spec) Negative for COVID19 (SARS CoV2) by RT-PCR or equivalent method. Normal Negative for COVID19 (SARS CoV2) by RT-PCR or equivalent method. [facility] Comment on above: Result Comment: This test has been authorized by FDA under an Emergency Use Authorization (EUA). Lipaseon 07-06-2021 Lipase [Catalytic activity/Vol] 1496 U/L High 16-61 [facility] Magnesiumon 07-06-2021 Magnesium [Mass/Vol] 1.2 mg/dL Low 1.7-2.3 [facility] NURSING PROGon 07-06-2021 NURSING PROG HNO ID: [id number] Author: Loraine Ya RN Service: Nursing Author Type: Registered Nurse Type: Nursing Progress Note Filed: 07/06/2021 6:31 AM Note Text: Nursing Progress Note Patient Name: Chuckie Villalta Patient Location[place] [address] [address] Transfer Note: Patient transferred into room/unit 426 in stable condition. Actions taken: Report given by Marcela RENAE. No futher actions taken at this time. Will continue to monitor and check with patient. Patient belongings with patient oriented to room, answered questions, denies needs at this time. This note was completed by: Loraine Ya [facility] XR CHEST 1V FRONTAL PORTon 1 [...] are detected. IMPRESSION: No acute radiographic abnormality. Business Account Manager: [facility] Transcribe Date/Time: Jul 05 2021 11:38P Dictated by : RIK YUN MD This examination was interpreted and the report reviewed and electronically signed by: RIK YUN MD on Jul 05 2021 11:39PM EST [id number] [facility] APTTon 07-05-2021 aPTT Coag (Bld) [Time] 22.6 s Low 23.0-32.4 [facility] Comment on above: Result Comment: Unfr [...] laboratory APTT reagent in use throughout the [facility]. Acetaminophenon 07-05-2021 Acetaminophen [Mass/Vol] ug/mL Low 10-30 [facility] Comment on above: Result Comment: Toxi c > 150 ug/mL 4 hours post ingestion The Ginger Akins nomogram can be used to estimate the probability of hepatotoxicity via the relationship of plasma acetaminophen concentration to the post ingestion interval. (Gareth. Pediatrics. 1975. 55:871 to 876 and Ginger et al. Arch Can Coverer Med. 1981. 141:380 to 385). Reference ranges and high/low indicator flags are provided as general guidelines only. The treating physician must determine appropriate target levels/dosing based on the specific clinical situation. Blood Cultureon 07-05-2021 Bacteria identified Cx Nom (Bld) Culture Result - No growth 5 days Normal [facility] Comment on above: Performed By: #### B LCUL ####[place] [phone] CBC and Differentialon 07-05 Abs Baso 0.00 k/uL Normal <0.11 [facility] Comment on above: Performed By: #### C BCDIF ####[place] [phone] Abs [place] 0.97 k/uL High <0.87 [facility] Comment on above: Performed By: #### C BCDIF ####[place] [phone] Abs Neut 28.35 k/uL High 1.45-7.50 [facility] Comment on above: Performed By: #### C BCDIF ####[place] [phone] Anisocytosis Ql (Bld) Present Normal [facility] Comment on above: Performed By: #### C BCDIF ####[address] [phone] Basophils/100 WBC (Bld) 0.0 % Normal [facility] Comment on above: Performed By: #### C BCDIF ####[address] [phone] DTYPE Manual Diff Normal [facility] Comment on above: Performed By: #### C BCDIF ####[place] [phone] Eosinophils (Bld) [#/Vol] 0.00 10*3/uL Normal <0.46 [facility] Comment on above: Performed By: #### C BCDIF ####[address] [phone] Eosinophils/100 WBC (Bld) 0.0 % [facility] Comment on above: Performed By: #### C BCDIF ####[place] [phone] Erythrocyte distribution width (RBC) [Ratio] 15.1 % High 11.5-15.0 [facility] Comment on above: Performed By: #### C BCDIF ####[place] [phone] Hematocrit (Bld) [Volume fraction] 43.2 % Normal 39.0-51.0 [facility] Comment on above: Performed By: #### C BCDIF ####[place] [phone] Hemoglobin (Bld) [Mass/Vol] 16.2 g/dL Normal 13.0-17.0 [facility] Comment on above: Performed By: #### C BCDIF ####[address] [phone] Lymphocytes (Bld) [#/Vol] 0.00 10*3/uL Low 1.00-4.00 [facility] Comment on above: Performed By: #### C BCDIF ####[address] [phone] Lymphocytes/100 WBC (Bld) 0.0 % Normal [facility] Comment on above: Performed By: #### C BCDIF ####[place] [phone] MCH 35.1 pG High 26.0-34.0 [facility] Comment on above: Performed By: #### C BCDIF ####[place] [id number] [place], [place] [phone] MCHC (RBC) [Mass/Vol] 37.5 g/dL High 30.5-36.0 [facility] Comment on above: Performed By: #### C BCDIF ####[address] [phone] MCV (RBC) [Entitic vol] 93.7 fL Normal 80.0-100.0 [facility] Comment on above: Performed By: #### C BCDIF ####[address] [phone] Monocytes/100 WBC (Bld) 3.3 % Normal [facility] Comment on above: Performed By: #### C BCDIF ####[address] [phone] Neutrophils/100 WBC (Bld) 96.7 % Normal [facility] Comment on above: Performed By: #### C BCDIF ####[address] [phone] Platelet Estimate Platelet estimate adequate [facility] Comment on above: Performed By: #### C BCDIF ####[address] [phone] Platelet mean volume (Bld) [Entitic vol] 11.6 fL Normal 9.0-12.7 [facility] Comment on above: Performed By: #### C BCDIF ####[address] [phone] Platelets (Bld) [#/Vol] 173 10*3/uL Normal 150-400 [facility] Comment on above: Performed By: #### C BCDIF ####[address] [phone] Polychromasia Slight Normal [facility] Comment on above: Performed By: #### C BCDIF ####[facility] [address] [place], [place] [phone] RBC (Bld) [#/Vol] 4.61 10*6/uL Normal 4.20-6.00 [facility] Comment on above: Performed By: #### C BCDIF ####[facility] [address] [place], [place] [phone] WBC (Bld) [#/Vol] 29.32 10*3/uL High 3.70-11.00 [facility] Comment on above: Result Comment: Resu lt checked and verified No clot detected. Performed By: #### C BCDIF ####[facility] [place], [place] [phone] CONSULT PROGon 07-05-2021 CONSULT PROG HNO ID: [id number] Author: Pearl Mann RPh Service: Pharmacy Author [...] any questions, please contact Pharmacy at ex [phone]. Age: [age] year old Allergies: ALLERGIES Allergen [...] Levels: No results found for: CHIDI Mann, [facility] CT ABD/PEL WO IVCONon 2020 CT ABD/PEL WO IVCON * * *Final Report* * * DATE OF EXAM: Jul 05 2021 7:05PM [facility] 0531 - CT ABD/PEL WO IVCON / [...] abnormality. Lumbosacral pars defects. Lower thorax: Unremarkable. An/Syq 13 Nav/C2 Operator (topogram) images: No additional findings. IMPRESSION: Extensive pancreatitis with inflammatory changes surrounding the transverse colon, spleen and retroperitoneum. Small volume ascites is present. Extent of pancreatic necrosis cannot be assessed on a noncontrast examination. Business Account Manager: [employer] Transcribe Date/Time: Jul 05 2021 7:12P Dictated by : SPIKE FUNES MD This examination was interpreted and the report reviewed and electronically signed by: SPIKE FUNES MD on Jul 05 2021 7:23PM EST [id number] [facility] Comp Metabolic Panelon 07-05 Albumin [Mass/Vol] 5.0 g/dL High 3.9-4.9 [facility] Comment on above: Performed By: #### C BCDIF ####[facility] [address] [place], [place] [phone] ALP [Catalytic activity/Vol] 77 U/L Normal 38-113 [facility] Comment on above: Performed By: #### C BCDIF ####[facility] [address] [place], [place] [phone] ALT [Catalytic activity/Vol] 34 U/L Normal 10-54 [facility] Comment on above: Performed By: #### C BCDIF ####[place] [address] [place], [place] [phone] Anion gap [Moles/Vol] 23 mmol/L High 9-18 [facility] Comment on above: Performed By: #### C BCDIF ####[place] [phone] AST [Catalytic activity/Vol] 69 U/L High 14-40 [facility] Comment on above: Performed By: #### C BCDIF ####[place] [phone] Bilirubin [Mass/Vol] 5.3 mg/dL High 0.2-1.3 [facility] Comment on above: Performed By: #### C BCDIF ####[place] [phone] Calcium [Mass/Vol] 9.5 mg/dL Normal 8.5-10.2 [facility] Comment on above: Performed By: #### C BCDIF ####[place] [phone] Chloride [Moles/Vol] 92 mmol/L Low 97-105 [facility] Comment on above: Performed By: #### C BCDIF ####[place] [phone] CO2 [Moles/Vol] 15 mmol/L Low 22-30 [facility] Comment on above: Performed By: #### C BCDIF ####[place] [address] [place] [phone] Creatinine [Mass/Vol] 2.53 mg/dL High 0.73-1.22 [facility] Comment on above: Performed By: #### C BCDIF ####[place] [phone] eGFR- Amer. 35 [facility] Comment on above: Performed By: #### C BCDIF ####[facility] [place], [place] [phone] eGFR-All Other Races 29 . [facility] Comment on above: Result Comment: eGFR (Estimated [...] at [email or web address]/professionals/kdoqi/gfr_calculator. Performed By: #### C BCDIF ####[place] [address] [place], [place] [phone] Glucose [Mass/Vol] 167 mg/dL High 74-99 [facility] Comment on above: Result Comment: The [place] Diabetes Association (ADA) provides guidance for cutoff [...] Standards of Medical Care in Diabetes 2016, [place] Diabetes Association. Diabetes Care. 2016.39(Suppl 1). Performed By: #### C BCDIF ####[place] [address] [place], [place] [phone] Potassium [Moles/Vol] 5.5 mmol/L High 3.7-5.1 [facility] Comment on above: Performed By: #### C BCDIF ####[facility] [place], [place] [phone] Protein [Mass/Vol] 7.6 g/dL Normal 6.3-8.0 [facility] Comment on above: Performed By: #### C BCDIF ####[address] [phone] Sodium [Moles/Vol] 130 mmol/L Low 136-144 [facility] Comment on above: Performed By: #### C BCDIF ####[address] [phone] Urea nitrogen [Mass/Vol] 20 mg/dL Normal 9-24 [facility] Comment on above: Performed By: #### C BCDIF ####[address] [phone] ED NOTEon 07-05-2021 ED NOTE HNO ID: [id number] Author: Max Styles RN Service: ? Author [...] bed in locked and low position [facility] ED PROV NOTEon 07-05-2021 ED PROV NOTE HNO ID: [id number] Author: Will Mccormick DO Service: Emergency Medicine [...] mmol/L Lact (more content not included)... [facility] ED Triage Noteon 07-05-2021 ED Triage Note HNO ID: [id number] Author: Brian Ash I, PA-C Service: Emergency Medicine Author Type: Physician Applique Cutter Type: ED Triage Notes Filed: 07/05/2021 6:11 [...] RUQ US SIGNATURE: Brian Ash PA-C [facility] Ethanolon 07-05-2021 Ethanol [Mass/Vol] mg/dL Normal <11 [facility] Comment on above: Result Comment: Valu es > 80 mg/dL may indicate intoxication HISTORY PHYSICALon HISTORY PHYSICAL HNO ID: [id number] Author: Lisseth Raymond APRN.CNP Service: Hospital Medicine Author Type: Nurse Practitioner Type: HANDP Filed: 07/05/2021 9:37 PM Note Text: DEPARTMENT OF HOSPITAL MEDICINE HISTORY AND PHYSICAL EXAM SERVICE DATE: 07/05/2021 Code Status: Not on file SERVICE TIME: 9:27 PM Primary Care Physician: Luis Abdalla DO NIGHT AND WEEKEND COVERAGE: [place] COVERAGE: Days: [phone], please contact via [employer] Nights: [phone], please page CC Hospitalist Night coverage pager [phone] Subjective CHIEF COMPLAINT: Epigastric pain going through [...] tests revie (more content not included)... [facility] Lipaseon 07-05-2021 Lipase [Catalytic activity/Vol] 2781 U/L High 16-61 [facility] Comment on above: Performed By: #### [facility] ####[facility] [address] [place], [place] [phone] Magnesiumon 07-05-2021 Magnesium [Mass/Vol] 0.8 mg/dL Low 1.7-2.3 [facility] Comment on above: Result Comment: No c all per procedure. 07/05/21 184 Performed By: #### C BCDIF ####[facility] [address] [place], [place] [phone] Protimeon 07-05-2021 PT INR 1.3 Normal 0.9-1.3 [facility] Comment on above: Result Comment: Aster min K Antagonist (VKA) Therapeutic Range: INR 2 to 3 (Target INR of 2.5) Note: For patients treated with VKA drugs, such as warfarin, the [employer] [employer] 2012 Guideline recommends [...] RA, et al. JAC 2017, 70: 252-289 PT Sec 14.0 sec High 9.7-13.0 [facility] Triglycerideon 07-05-2021 Fasting Time Unknown Normal [facility] Triglyceride [Mass/Vol] 463 mg/dL High <150 [facility] Troponin Ton 07-05-2021 Troponin T <0.010 Normal 0.000-0.029 [facility] Kaleb 02-25-2021 L --- Specimen: [id number] Received: 02/25/21 Status: LU Wayne Num: [id number] Spec Type: Surgical Subm Dr: Josiah Pompa MD Tissues: A Disc - Intervertebral/Lumbar/C ervical (CERVICAL) Procedures: HE Stain, Gross/Micro L3 Patient Age/Sex Location Account Attending Physician Chuckie Villalta 35/M [place] [id number] Josiah Pompa MD SPEC NUM: [id number] RECD: 02/25/21 STATUS: LU WAYNE NUM: [id number] VJ: 02/25/21- [facility] DR: Josiah Pompa MD ENTERED: 02/25/[address]: LOUIE TYPE: Surgical DEPT: S ORDERED: [...] of montanez-pink, rubbery and ragged fibrous tissue. Courtesy [employer] Driver sections are submitted in one cassette labeled A1. (JAYCOB/YJ) Microscopic Description One glass slide with H E stained material has been examined. The microscopic findings support the above pathologic diagnosis. CPT Codes 30303 Specimen: [id number] Received: 02/25/21 Status: LU Wayne Num: [id number] Spec Type: Surgical Subm Dr: Josiah Pompa MD Tissues: A Disc - Intervertebral/Lumbar/C ervical (CERVICAL) Procedures: HE Stain, Gross/Micro L3 Patient: Chuckie Villalta [id number] (Continued) Signed (signature on file) Lucretia Lund MD 02/26/21 1655 [facility] XR cervical spine 1Von 02-25 XR cervical spine 1V [facility] [place] [address] XRay Report Signed Patient: Chuckie Villalta MR#: [id number] 56 : 1985 Acct:[id number] Age/Sex: 35 / M ADM Date: 02/25/21 Loc: Room: [address] [place] [address] Type: [facility] Attending Dr: Josiah Pompa MD Ordering [...] Carlos Solano M.D.02/25/2021 4:31 PM Dictation Location: [place] [address] Transcribed By: [facility] 02/25/21 1631 Dictated By: Carlos Solano II, MD 02/25/21 1630 Signed By: 02/25/21 163 [facility] Basic Metabolic Panelon 01-25 Calcium [Mass/Vol] 9.3 mg/dL Normal 8.2-10.2 [facility] Comment on above: Result Comment: PERF ORMED BY: [place] [address] PATHOLOGIST HISTORICAL RECORDS ADMINISTRATOR ALFRED TRACY M.D. Performed By: #### B MP, CBC #### [facility] [address] [place] [address] [place] Chloride [Moles/Vol] 99 mmol/L Normal 95-114 [facility] Comment on above: Performed By: #### B MP, CBC #### [facility] [address] CO2 [Moles/Vol] 20.5 mmol/L Low 22.0-30.0 [facility] Comment on above: Performed By: #### B MP, CBC #### [address] Creatinine [Mass/Vol] 1.31 mg/dL High 0.64-1.27 [facility] Comment on above: Performed By: #### B MP, CBC #### [facility] [address] Estimated GFR ( Marissa > 60 [facility] Comment on above: Result Comment: GFR estimated reference range: According to KDOQI guidelines, <60 ml/min/1.73m2 is sufficient to diagnose a patient with chronic kidney disease. Performed By: #### B MP, CBC #### [facility] [address] [place] [address] [place] Estimated GFR (Non- Am > 60 [facility] Comment on above: Performed By: #### B MP, CBC #### [facility] [address] [place] [address] [place] Glucose [Mass/Vol] 105 mg/dL High 70-100 [facility] Comment on above: Result Comment: [place] Glucose Reference Range is dependent on time and content of last meal. Glucose of more than 200 mg/dL in a nonstressed, ambulatory subject supports the diagnosis of Diabetes Mellitus. ADA recommended reference range Performed By: #### B MP, CBC #### [facility] [address] Potassium [Moles/Vol] 4.4 mmol/L Normal 3.5-5.1 [facility] Comment on above: Performed By: #### B MP, CBC #### [facility] [address] Sodium [Moles/Vol] 133 mmol/L Low 136-146 [facility] Comment on above: Performed By: #### B MP, CBC #### [facility] [address] Urea nitrogen [Mass/Vol] 11 mg/dL Normal 9-23 [facility] Comment on above: Performed By: #### B MP, CBC #### [facility] [address] COVID-19 FRon 02-21-2021 SARS-CoV-2 (COVID-19) RNA NOLBERTO+probe Ql (Unsp spec) Negative Normal Negative [facility] Comment on above: Order Comment: Healt hcare Worker?: N Result Comment: Testing for SARS-CoV-2 by RT-PCR This test was developed and its performance characteristics determined by [employer] and validated at the [facility]. This test has not been FDA [...] is terminated or revoked sooner. PERFORMED BY: [place] [address] PATHOLOGIST HISTORICAL RECORDS ADMINISTRATOR ALFRED TRACY M.D. Performed By: #### C OVID 19 [facility] #### [facility] [address] Complete Blood Count Auto Di ffon 02-21-2021 Basophils (Bld) [#/Vol] 0.0 10*3/uL Normal 0.0-0.2 [facility] Comment on above: Result Comment: PERF ORMED BY: [facility] [address] [place] [address] PATHOLOGIST HISTORICAL RECORDS ADMINISTRATOR ALFRED TRACY M.D. Performed By: #### B MP, CBC #### [facility] [address] Basophils/100 WBC (Bld) 0.5 % Normal . [facility] Comment on above: Performed By: #### B MP, CBC #### [facility] [address] Eosinophils (Bld) [#/Vol] 0.1 10*3/uL Normal 0.0-0.45 [facility] Comment on above: Performed By: #### B MP, CBC #### [place] [address] [place] Eosinophils/100 WBC (Bld) 1.2 % Normal . [facility] Comment on above: Performed By: #### B MP, CBC #### [facility] [address] Erythrocyte distribution width (RBC) [Ratio] 14.0 % Normal 12.0-14.8 [facility] Comment on above: Performed By: #### B MP, CBC #### [facility] [address] Hematocrit (Bld) [Volume fraction] 39.2 % Normal 38.8-50.0 [facility] Comment on above: Performed By: #### B MP, CBC #### [address] Hemoglobin (Bld) [Mass/Vol] 13.9 g/dL Normal 13.0-17.0 [facility] Comment on above: Performed By: #### B MP, CBC #### [facility] [address] [place] [address] [place] Lymphocytes (Bld) [#/Vol] 1.0 10*3/uL Normal 1.00-4.8 [facility] Comment on above: Performed By: #### B MP, CBC #### [facility] [address] Lymphocytes/100 WBC (Bld) 9.5 % Normal . [facility] Comment on above: Performed By: #### B MP, CBC #### [facility] [address] MCH (RBC) [Entitic mass] 32.1 pg Normal 27.5-35.2 [facility] Comment on above: Performed By: #### B MP, CBC #### [address] MCV (RBC) [Entitic vol] 90.4 fL Normal 83.5-101 [facility] Comment on above: Performed By: #### B MP, CBC #### [address] Mean Corpuscular HGB Conc 35.5 g/dL Normal 32.5-35.6 [facility] Comment on above: Performed By: #### B MP, CBC #### [place] [address] [place] Monocytes (Bld) [#/Vol] 0.6 10*3/uL Normal 0.0-0.8 [facility] Comment on above: Performed By: #### B MP, CBC #### [place] [address] [place] Monocytes/100 WBC (Bld) 6.0 % Normal . [facility] Comment on above: Performed By: #### B MP, CBC #### [address] Neutrophils (Bld) [#/Vol] 8.8 10*3/uL High 1.8-7.7 [facility] Comment on above: Performed By: #### B MP, CBC #### [facility] [address] [place] [address] [place] Neutrophils/100 WBC (Bld) 82.8 % Normal . [facility] Comment on above: Performed By: #### B MP, CBC #### [facility] [address] [place] [address] [place] Nucleated RBC/100 WBC (Bld) [Ratio] 0.0 % Normal 0-0.5 [facility] Comment on above: Performed By: #### B MP, CBC #### [address] Platelet mean volume (Bld) [Entitic vol] 8.4 fL Normal 6.6-10.1 [facility] Comment on above: Performed By: #### B MP, CBC #### [address] Platelets (Bld) [#/Vol] 205 10*3/uL Normal 150-450 [facility] Comment on above: Performed By: #### B MP, CBC #### [place] [address] [place] RBC (Bld) [#/Vol] 4.34 10*6/uL Normal 3.90-5.60 [facility] Comment on above: Performed By: #### B MP, CBC #### [place] [address] [place] WBC (Bld) [#/Vol] 10.6 10*3/uL Normal 4.5-11.0 [facility] Comment on above: Performed By: #### B MP, CBC #### [address] ECG 12 lead ECGon 02-18-2021 ECG 12 lead ECG [facility] Main [place] [address] [place] [address] Electrocardiograph Report Signed Patient: Chuckie Villalta MR#: [id number] 56 : 1985 Acct:[id number] Age/Sex: 35 / M ADM Date: 02/18/21 Loc: PS Room: Type: REG CLI Attending Dr: Jsoiah Pompa MD Ordering Provider: Josiah Pompa MD [...] DO 02/18/21 1413 Signed By: 02/18/21 1610 [facility] MRI CSPINE WO CONon 12-07-19 MRI CSPINE [...] by: ANGIE MCDANIEL Date: 2020-12-06 12:00 Normal [facility] Vital Signs Date Time Vital Sign Value Performing Clinician Facility 09-02-2024 14:12-0500 Body height 185.42 cm [facility] 09-02-2024 14:12-0500 Body mass index (BMI) [Ratio] 31.8 kg/m2 [facility] 09-02-2024 14:12-0500 Body weight 109.42 kg [facility] 09-02-2024 14:12-0500 Diastolic blood pressure 72 mm[Hg] [facility] 09-02-2024 14:12-0500 Heart rate 97 /min [facility] 09-02-2024 14:12-0500 Respiratory rate 12 /min [facility] 09-02-2024 14:12-0500 Systolic blood pressure 95 mm[Hg] [facility] 02-29-2024 13:25-0400 Body height 185.42 cm [facility] 02-29-2024 13:25-0400 Body mass index (BMI) [Ratio] 29 kg/m2 [facility] 02-29-2024 13:25-0400 Body weight 99.79 kg [facility] 02-29-2024 13:25-0400 Diastolic blood pressure 91 mm[Hg] [facility] 02-29-2024 13:25-0400 Heart rate 111 /min [facility] 02-29-2024 13:25-0400 Respiratory rate 12 /min [facility] 02-29-2024 13:25-0400 Systolic blood pressure 161 mm[Hg] [facility] 06-20-2023 16:12-0500 Body temperature 96.98 [degF] [facility] 06-20-2023 16:12-0500 Diastolic blood pressure 85 mm[Hg] [facility] 06-20-2023 16:12-0500 Heart rate 114 /min [facility] 06-20-2023 16:12-0500 Respiratory rate 18 /min [facility] 06-20-2023 16:12-0500 SaO2% (BldA) [Mass fraction] 100 % [facility] 06-20-2023 16:12-0500 Systolic blood pressure 160 mm[Hg] [facility] 06-11-2023 10:00-0500 Body height 185.42 cm Luis Ball Other [facility] [employer] Other 06-11-2023 10:00-0500 Body mass index (BMI) [Ratio] 29.66 kg/m2 Luis Ball Other [facility] [employer] Other 06-11-2023 10:00-0500 Body weight 101.97 kg Luis Ball Other [facility] [employer] Other 06-11-2023 10:00-0500 Diastolic blood pressure 97 mm[Hg] Luis Ball Other [facility] [employer] Other 06-11-2023 10:00-0500 Respiratory rate 12 /min Luis Ball Other [facility] [employer] Other 06-11-2023 10:00-0500 Systolic blood pressure 141 mm[Hg] Luis Ball Other [facility] Other 03-05-2023 09:45-0400 Body height 185.42 cm Luis Ball Other [facility] Other 03-05-2023 09:45-0400 Body mass index (BMI) [Ratio] 29.6 kg/m2 Luis Ball Other [facility] Other 03-05-2023 09:45-0400 Body weight 101.79 kg Luis Ball Other [facility] Other 03-05-2023 09:45-0400 Diastolic blood pressure 109 mm[Hg] Luis Ball Other [facility] Other 03-05-2023 09:45-0400 Systolic blood pressure 153 mm[Hg] Luis Ball Other [facility] Other 09-12-2022 10:30-0500 Body height 185.42 cm Luis Ball Other [facility] Other 09-12-2022 10:30-0500 Body mass index (BMI) [Ratio] 29.95 kg/m2 Luis Ball Other [facility] Other 09-12-2022 10:30-0500 Body weight 102.97 kg Luis Ball Other [facility] Other 09-12-2022 10:30-0500 Diastolic blood pressure 86 mm[Hg] Luis Ball Other [facility] Other 09-12-2022 10:30-0500 Respiratory rate 12 /min Luis Ball Other [facility] Other 09-12-2022 10:30-0500 Systolic blood pressure 132 mm[Hg] Luis Ball Other [facility] Other Encounters Encounter Date Encounter Type Care Provider Facility Start: 09-02-2024 End: 09-02-2024 [facility] Work Phone: Start: 09-02-2024 End: 09-02-2024 Encounter for general adult medical examination without abnormal findings [facility] Start: 09-02-2024 End: 09-02-2024 Patient encounter procedure [facility]ly [facility] Physician [facility] Work Phone: Start: 09-01-2024 Patient encounter status [facility] Start: 08-23-2024 Non-patient / Non-visit [facility] Physician [facility] Work Phone: Start: 08-20-2024 Non-patient / Non-visit [facility] Work Phone: Start: 07-04-2024 End: 07-04-2024 ambulatory Vicente Thompson MD Facility:[facility] Start: 04-04-2024 End: 04-04-2024 ambulatory Vicente Thompson MD Facility:[facility] Start: 03-07-2024 End: 03-07-2024 ambulatory Vicente Thompson MD Facility:[facility] [place] Start: 02-29-2024 End: 02-29-2024 ambulatory [facility] Work Phone: Start: 02-29-2024 End: 02-29-2024 Patient encounter procedure [facility] Work Phone: Start: 12-28-2023 End: 12-28-2023 ambulatory Vicente Thompson MD Facility:[facility] [place] Start: 10-19-2023 End: 10-19-2023 ambulatory Vicente Thompson MD Facility:[facility] [place] Start: 09-28-2023 End: 09-28-2023 ambulatory Vicente Thompson MD Facility:[facility] [place] Start: 06-20-2023 End: 06-20-2023 Emergency department patient visit Wilmer Rosenberg Facility:[facility] Start: 06-20-2023 End: 06-20-2023 [facility] Start: 06-11-2023 End: 06-11-2023 ambulatory Luis Abdalla Other [facility] Other Start: 06-11-2023 Encounter for genera l adult medical examination without abnormal findings Luis Abdalla [facility] Start: 06-11-2023 Periodic preventive med est patient 18-39 yrs Luis Abdalla [facility] Start: 03-19-2023 End: 03-19-2023 ambulatory BETINA QUEZADA Facility:[facility] Start: 03-05-2023 End: 03-05-2023 ambulatory Luis Abdalla Other [facility] Other Start: 03-05-2023 Office outpatient vi sit 15 minutes Luis Abdalla [facility] Start: 12-11-2022 End: 12-11-2022 ambulatory BETINA QUEZADA Facility:[facility] Start: 09-22-2022 Telephone encounter Rashida Liriano 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 operations farm manager Comment on above: Care Coordination ([facility]) Start: 09-12-2022 End: 09-12-2022 ambulatory Luis Abdalla Other [facility] Other Start: 09-12-2022 Office outpatient vi sit 25 minutes Luis Abdalla [facility] Start: 09-04-2022 Orders Only Betina Quezada MD Work Phone: Gastroenterology Comment on above: Liver transplant rec ipient (HCC) (Primary Dx) Endoscopy Call Start: 09-04-2022 End: 09-04-2022 Evaluation and management of inpatient MINNA ARLEYIZERA Facility:[facility] Start: 08-31-2022 End: 09-05-2022 Evaluation and management of inpatient LUIS ABDALLA Facility:[facility] Start: 07-22-2022 ambulatory Nadja Spencer RN [facility] Comment on above: holiday obs erved July 28 Start: 07-22-2022 E-mail encounter fro [facility] Start: 07-07-2022 End: 07-08-2022 ambulatory LUIS ABDALLA Facility:[facility] Start: 05-01-2022 Refill Tuyet Rivera PA-C Work Phone: [facility] Comment on above: Refill Request Start: 03-24-2022 Telephone encounter [facility] Comment on above: Reminder To Have Lab s Drawn Start: 03-11-2022 Telephone encounter [facility] Comment on above: Covid19 Concern Start: 02-25-2022 End: 02-25-2022 ambulatory LUIS ABDALLA Facility:[facility] Start: 02-25-2022 End: 02-25-2022 Patient encounter procedure Rosemarie Roger [facility] Comment on above: Uncomplicated alcoho l dependence (HCC) Start: 02-20-2022 End: 02-20-2022 Social Work Alessia Marie CORONER/MEDICAL EXAMINER [facility] Start: 12-27-2021 End: 12-27-2021 Subsequent hospital visit by physician Ct Prep Q[facility] Radiology Start: 12-10-2021 End: 12-10-2021 ambulatory Aidan Larios MD Work Phone: Transplant Center Comment on above: Liver replaced by tr ansplant (HCC) (Primary Dx); Need for prophylactic immunotherapy Start: 12-10-2021 End: 12-10-2021 Telemedicine consultation with patient Aidan Larios MD Work Phone: [facility] Start: 11-08-2021 Telephone encounter [facility] Comment on above: Hospital Follow Up Start: 12-06-2020 End: 12-07-[address] LUIS ABDALLA Facility:[facility] Procedures Date Procedure Procedure Detail Performing Clinician Start: 09-04-2022 FLUORO ERCP (POC) FOR DDI USE ONLY Betina Quezada MD Work Phone: Start: 09-03-2022 Antibody screen BETINA QUEZADA Comment on above: Order Comment: Specimen Type: BLOOD SPEC IMENOrdering Facility: [facility] Address: [address] [place] [id number] Performed By: #### T SCR ####[facility] BLOOD BANKCLIA [id number] [place] [id number] [place] Start: 02-24-2022 Adult [...] profile DTAP,TDAP,TD (2 - Td or Tdap) [facility] Start: 07-07-2027 LIPID SCREEN LIPID SCREEN [facility] Start: 07-16-2026 LIPID SCREEN LIPID SCREEN [facility] Start: 01-15-2024 PNEUMOCOCCAL (3 - PP SV23 if available, else PCV20) PNEUMOCOCCAL (3 - PPSV23 if available, else PCV20) [facility] Start: 01-15-2024 PNEUMOCOCCAL (3 - PP SV23 or PCV20) PNEUMOCOCCAL (3 - PPSV23 or PCV20) [facility] Start: 10-05-2023 TWO PNEUMOVAX 5 YEAR S APART PRIOR TO AGE 65 (#2) TWO PNEUMOVAX 5 YEARS APART PRIOR TO AGE 65 (#2) [facility] Start: 02-24-2023 Adult depression screening assessment DEPRESSION SCREENING [facility] Start: 12-02-2022 End: 09-04-2023 ERCP ERCP Endoscopy Routine Biliary stricture Expected: 12/02/2022, Expires: 09/04/2023 [facility] Work Phone: Comment on above: Expected: 12/02/2022 , Expires: 09/04/2023 Start: 07-27-2022 DEPRESSION ASSESSMENT DEPRESSION ASS ESSMENT [facility] Start: 03-27-2022 Influenza vaccination C [facility] Start: 12-30-2021 End: 03-01-2022 Amylase [Enzymatic activity/volume] in Serum or Plasma AMYLASE BLD Lab Routine Expected: 12/30/2021, Expires: 03/01/2022 [facility] Work Phone: Comment on above: Expected: 12/30/2021 , Expires: 03/01/2022 Start: 12-30-2021 End: 03-01-2022 Lipase [Enzymatic activity/volume] in Serum or Plasma LIPASE BLD Lab Routine Expected: 12/30/2021, Expires: 03/01/2022 [facility] Work Phone: Comment on above: Expected: 12/30/2021 , Expires: 03/01/2022 Start: 12-24-2021 End: 01-09-2023 Ct abdomen w/contrast material CT ABDOMEN W IVCON Radiology Routine Expected: 12/24/2021 (Approximate), Expires: 01/09/2023 [facility] Work Phone: Comment on above: Expected: 12/24/2021 (Approximate), Expires: 01/09/2023 Start: 07-27-2021 DEPRESSION ASSESSMENT DEPRESSION ASS ESSMENT [facility] Start: 07-10-2020 Adult depression screening assessment DEPRESSION SCREENING [facility] Start: 07-07-2020 MENINGOCOCCAL B: Consider based on risk (3 of 4 - Increased Risk Bexsero 2-dose series) MENINGOCOCCAL B: Consider based on risk (3 of 4 - Increased Risk Bexsero 2-dose series) [facility] Start: 03-11-2019 MENINGOCOCCAL CONJUG ATE (2 - Risk 2-dose series) MENINGOCOCCAL CONJUGATE (2 - Risk 2-dose series) [facility] Start: 2004 SHINGRIX VACCINE (1 of 2) SHINGRIX VACCINE (1 of 2) [facility] Start: 11-01-2003 ANNUAL PCP TEAM REFERRAL CLERK BRANDON DISEASE VISIT ANNUAL PCP TEAM CHRONIC DISEASE VISIT [facility] Start: 11-01-2003 BP CONTROLLED (<130/80) BP CONTROLLE D (<130/80) [facility] Start: 1997 COVID-19 VACCINE (1) COVID-19 VACCIN E (1) [facility] Start: 1990 COVID-19 VACCINE (#1) COVID-19 VACCI NE (#1) [facility] Start: 05-02-1986 COVID-19 VACCINE (#1) COVID-19 VACCI NE (#1) [facility] Immunizations Immunization Date Immunization Notes Care Provider Fa cili 04-18-2020 influenza virus vacc ine, split virus (incl. purified surface antigen) Luis Abdalla Other [facility] Other 04-18-2020 influenza virus vacc ine, unspecified formulation [facility] 07-07-2019 meningococcal B vacc ine, recombinant, OMV, adjuvanted Nadja Spencer RN [facility] 05-20-2019 hepatitis A and hepatitis B vaccine Nadja Spencer RN [facility] 05-20-2019 influenza, injectabl e, quadrivalent, contains preservative Nadja Spencer RN [facility] 01-14-2019 haemophilus influenz ae type b vaccine, PRP-OMP conjugate Nadja Spencer RN [facility] 01-14-2019 meningococcal B vacc ine, recombinant, OMV, adjuvanted Nadja Spencer RN [facility] 01-14-2019 meningococcal oligosaccharide (groups A, C, Y and W-135) diphtheria toxoid conjugate vaccine (MCV4O) Nadja Spencer RN [facility] 01-14-2019 pneumococcal conjuga te vaccine, 13 valent Nadja Spencer RN [facility] 10-04-2018 hepatitis A and hepatitis B vaccine Nadja Spencer RN [facility] 10-04-2018 pneumococcal polysaccharide vaccine, 23 valent Nadja Spencer RN [facility] 07-01-2018 hepatitis A and hepatitis B vaccine Nadja Spencer RN [facility] 07-01-2018 influenza, injectabl e, quadrivalent, contains preservative Nadja Spencer RN [facility] 07-01-2018 pneumococcal conjuga te vaccine, 13 valent Nadja Spencer RN [facility] 07-01-2018 tetanus toxoid, redu simon diphtheria toxoid, and acellular pertussis vaccine, adsorbed Nadja Spencer RN [facility] 04-30-2009 hepatitis B vaccine, adult dosage Nadja Spencer RN [facility] Payers Date Payer Category Payer Medicaid MEDICAID [facility] MEDICAID [id number] 2021-Present [phone] [address] [place] [address] Medicaid [id number] 2021 Medicaid [id number] 2021 Medicaid [id number] 2021 Medicare MEDICARE MEDICAR E A AND B [id number] 2021-Present [phone] [address] [address] [place] [address] Medicare [id number] 2021 Medicare [id number] 2021 Medicare [id number] 2020 Medicaid UHC MEDICAID [employer] MEDICAID [id number] 2020-Present [phone] [address] [place] [address] Medicaid [id number] 1985 Unknown [id number] 1985 Unknown [id number] 1985 Unknown [id number] 1985 Unknown [id number] 1985 Unknown [id number] 1985 Unknown [id number] [id number] 1985 Unknown [id number] 1985 Unknown [id number] 1959 Unknown [id number] Self-pay Self Pay [id number] Social History Date Type Detail Facility Start: 05-04-2018 End: 02-29-2024 Tobacco smoking status VTIS Never smoked tobacco [facility] Start: 05-04-2018 Tobacco use and exposure Former smokeless tobacco user [facility] Start: 09-17-2021 End: 09-04-2022 Alcohol intake Current drinker of alcohol (finding) [facility] Start: 07-05-2021 History SDOH Alcohol Comment occasionally [facility] Start: 1985 Sex Assigned At Not on file C [facility] Start: 10-20-2021 End: 2021 Exposure to SARS-CoV-2 (event) Not sure [facility] Sex Assigned At [facility] Tobacco smoking status No Smoking Status Entered [facility] Start: 1985 Sex Assigned At Male F [facility] Start: 09-02-2024 Sex Male (finding) [facility] Medical Equipment Procedure Code Equipment Code Equipment Origin al Text Equipment Identifier Dates Stent Axios 15mm 24mm 138mm 10.8fr Nitinol Silicone 10mm 146mm Pancreatic - [id number] Start: 11-01-2021 Stent 10fr Duode nal Bend Plastic 12cm Biliary Temporary Rapid Exchange - [id number] Start: 09-04-2022 Spinal fixation plate, non-bioabsorbable ()[id number] FDA Start: 02-25-2021 Spinal fixation plate, non-bioabsorbable ()[id number] FDA Start: 02-25-2021 Intervertebral-b josesito internal spinal fixation system ()[id number] FDA Start: 02-25-2021 Intervertebral-b josesito internal spinal fixation system ()[id number] FDA Start: 02-25-2021 Functional Status Date Assessment Result Facility 06-20-2023 Functional Status N/A [facility] Clinical Notes 07-25-2019 to 06-20-2023 Note Date [...] cast on your foot. General instructions Take ucir-wjv-ddcqjvn and prescription medicines only as told by [...] provider. Document Revised: 11/02/2020 Document Reviewed: 11/02/2020 Sylvia Patient Education 2022 [employer]. 06/20/2023 18:04:25 Elastic Bandage and RICE Therapy [...] your activities and whether you should start vhwwx-ob-airekn exercises for your injury. Ice Ice your [...] provider. Document Revised: 09/07/2020 Document Reviewed: 04/02/2018 [employer] Patient Education 2020 [employer] 06/20/2023 18:04:25 Ankle Sprain, Phase II [...] by your health care provider. Stretching and ccfox-pb-zejkdm exercises These exercises warm up your muscles [...] provider. Document Revised: 09/05/2021 Document Reviewed: 09/05/2021 [employer] Patient Education 2022 [employer]. 06/20/2023 18:04:25 Ankle Sprain, Phase I Rehab [...] by your health care provider. Stretching and ujemb-bb-acsnwy exercises These exercises warm up your muscles [...] provider. Document Revised: 09/05/2021 Document Reviewed: 09/05/2021 Elsevier Patient Education 2022 [employer]. 06/20/2023 18:04:25 Ankle Sprain Ankle Sprain An [...] blue. Managing pain, stiffness, and swelling Take arvo-rle-adwufdl and prescription medicines only as told by [...] provider. Document Revised: 09/05/2021 Document Reviewed: 09/05/2021 [employer] Patient Education 2022 [employer]. Follow Up Care 06/20/2023 15:55:18 With:LUIS ABDALLA Address: [facility] [place] [address]- Business (1) When:06/23/2023 17:48:00 Comments:Follow-up with your primary care provider in 3 to 5 days. If symptoms worsen, do not improve, or new symptoms arise please report back to emergency department for further evaluation. [facility] 06-20-2023 Evaluation + Plan note Extrac edwardo from: Title:ED Note Author:Dilan Adames PA-C te:06/20/23 Left ankle sprain (S93.402A: Sprain of unspecified ligament of left ankle, initial encounter) Sprain of left foot (S93.602A: Unspecified sprain of left foot, initial encounter) Orders: Air Cast Long [facility]11-16-2023 Evaluation note* Encounter Date Diagnosis Assessment [...] CBD obstruction May, Nausea (ICD-10 - R11.0) WHOOP Other 08-24-2023 NoteQ3 Patient Name: Chuckie Villalta [...] procedure well. Moderate Sedation: MAC Findings: A scout executive film of the abdomen was obtained. Surgical [...] present medications. Procedure Code(s): --- Professional --- 05607, Endoscopic retrograde cholangiopancreatography (ERCP); with removal of foreign body(s) or stent(s) from biliary/pancreatic duct(s) 48791, Endoscopic retrograde cholangiopancreatography (ERCP); with removal of calculi/debris from biliary/pancreatic duct(s) 41117, Endoscopic catheterization of the biliary ductal system, [...] Z94.4, Liver transplant status CPT copyright 2020 [employer]. All rights reserved. Attending Participation: I was present and participated during the entire procedure, including non-herr portions. Scope In: 9:20:16 AM Scope Out: 9:35:13 AM MD Betina Troncoso MD 03/19/2023 9:49:13 AM This report has been signed electronically by Betina Quezada MD Number of Addenda: 0 Note Initiated On: 03/19/2023 8:51 [facility]08-24-2023 NoteHNO ID: [id number] Author: Indu Meza, RN Service: Nursing Author Type: Registered Nurse Type: Nursing Progress Note Filed: 03/19/2023 8:29 AM Note Text: VBG collected from [facility] IV and sent to blood gas lab per MD order. Indu [facility]za [facility]* Encounter Date Diagnosis [...] < 140/90 and HR less than 90 WHOOP Other 05-18-2023 NoteHNO ID: [id number] Author: Yun Hutchinson APRN.SEWING MACHINIST Service: ? Author Type: Nurse Road Oiling Truck Driver Type: Anesthesia Procedure Notes Filed: 12/11/2022 10:17 AM Note Text: ANESTHESIOLOGY PROCEDURE NOTE Airway General Information Procedure Start Time/Medication Administration: 12/11/2022 10:08 AM Patient location during procedure: OR Timeout Performed Pre-procedure: timeout performed Consent Obtained: Yes Patient identity confirmed: arm band and patient Staffing SEWING MACHINIST: Yun Hutchinson APRN.SEWING MACHINIST Performed by: SEWING MACHINIST Indications and Patient Condition Indications for airway [...] 1 Airway not difficult SIGNATURE: Yun Hutchinson APRN.SEWING MACHINIST PATIENT NAME: Chuckie Villalta DATE: December 11, 2022 TIME: 10:15 AM CSN: [id number]05-[facility] NoteQ3 Patient Name: Chuckie Villalta [...] A biliary stent was visible on the scout executive film. A scout executive film of the abdomen was obtained. Surgical [...] exchange stent. Procedure Code(s): --- Professional --- 19472, Endoscopic retrograde cholangiopancreatography (ERCP); with removal and exchange of stent(s), biliary or pancreatic duct, including pre- and post-dilation and guide wire passage, when performed, including sphincterotomy, when performed, each stent exchanged 87505, 59, Endoscopic retrograde cholangiopancreatography (ERCP); with removal and exchange of stent(s), biliary or pancreatic duct, including pre- and post-dilation and guide wire passage, when performed, including sphincterotomy, when performed, each stent exchanged 82096, 59, Endoscopic retrograde cholangiopancreatography (ERCP); with trans-endoscopic balloon dilation of biliary/pancreatic duct(s) or of ampulla (sphincteroplasty), including sphincterotomy, when performed, each duct 82222, Endoscopic retrograde cholangiopancreatography (ERCP); with removal of calculi/debris from biliary/pancre (more content not included)...[facility]02-27-2023 Miscellaneous Notes* Telephone Encounter - Rashida Liriano RN - 09/22/2022 11:30 AM EST Called and left patient regarding referral to [facility]. Call back number provided. [employer] message with the details also sent. Rashida Liriano RN September 22, 2022 11:32 AM documented in this encounterR[facility] Evaluation note* Encounter Date Diagnosis Assessment [...] recipient (ICD-10 - Z94.4) No s/s rejection WHOOP Other 02-10-2023 NoteHNO ID: [id number] Author: Jerri Camacho MD Service: Hepatology Author [...] Camacho MD Gastroenterology AND Hepatology Fellow Pager [phone] Will d/w staff Dr. Crawford.[facility]02-09-2023 NoteHNO ID: [id number] Author: Minna Tilley MD Service: General Internal Medicine Author Type: Physician Type: Progress Notes Filed: 09/04/2022 4:09 PM Note Text: DEPARTMENT OF HOSPITAL MEDICINE PROGRESS NOTE SERVICE DATE: 09/04/2022 SERVICE TIME: 3:55 PM Hospital Medicine/Primary Attending: Minna Tilley MD NIGHT AND WEEKEND COVERAGE: [facility] COVERAGE: Days: [phone], please page Minna Tilley for patient issues. Nights: [phone], please page Team GIM 6: G/H 8th floor: [address]356; Non 8th floor [address] Subjective INTERVAL HPI: No significant events overnight. [...] c/w alcoholic hepatitis with (more content not included)...[facility]02-09-2023 Miscellaneous Notes* Telephone Encounter - Betina Quezada MD - 09/04/2022 2:03 PM EST Stent change with bruna documented in this encounterRivers[facility]02-[facility]-2023 NoteHNO ID: [id number] Author: Yamilet Giraldo RN Service: Nursing Author Type: Registered Nurse Type: Nursing Progress Note Filed: 09/04/2022 10:58 AM Note Text: Pt nauseous, order for 4mg zofran given per dr junior order, report called to ayana storm rn g100.[facility]02-09-2023 NoteQ3 Patient Name: Chuckie Villalta [...] procedure well. Moderate Sedation: MAC Findings: A scout executive film of the abdomen was obtained. One [...] present medications. Procedure Code(s): --- Professional --- 64108, Endoscopic retrograde cholangiopancreatography (ERCP); with placement of endoscopic stent into biliary or pancreatic duct, including pre- and post-dilation and guide wire passage, when performed, including sphincterotomy, when performed, each stent 29756, Esophagogastroduodenoscopy, flexible, transoral; with removal of foreign body(s) 32105, Endoscopic catheterization of the biliary ductal system, [...] Z94.4, Liver transplant status CPT copyright 2020 [employer]. All rights reserved. Attending Participation: I personally performed the entire procedure. Scope In: 9:12:21 AM Scope Out: 10:02:05 AM MD Betina Troncoso MD 09/04/2022 10:16:37 AM This report has been signed electronically by Betina Quezada MD Number of Addenda: 0 Note Initiated On: 09/04/2022 8:31 [facility]02-09-2023 NoteHNO ID: [id number] Author: Jerri Camacho MD Service: Hepatology Author [...] Camacho MD Gastroenterology AND Hepatology Fellow Pager [phone] Will d/w staff Dr. Crawford. Addendum 09/04/22 12:26PM: Prelim path read: No evidence of ACR or chronic rejection; no evidence of bile duct injury or portal vein injury. Changes appear to be most c/w alcoholic hepatitis with severe reactivity. [facility]02-08-2023 NoteHNO ID: [id number] Author: Minna Tilley MD Service: General Internal Medicine Author Type: Physician Type: Progress Notes Filed: 09/03/2022 2:32 PM Note Text: DEPARTMENT OF HOSPITAL MEDICINE PROGRESS NOTE SERVICE DATE: 09/03/2022 SERVICE TIME: 2:24 PM Hospital Medicine/Primary Attending: Minna Tilley MD NIGHT AND WEEKEND COVERAGE: [facility] COVERAGE: Days: [phone], please page Minna Tilley for patient issues. Nights: [phone], please page Team GIM 6: G/H 8th floor: 17964; Non 8th floor [address] Subjective INTERVAL HPI: No significant events overnight. [...] needed Leukocytosis, resolved Se (more content not included)...[facility]02-08-2023 NoteHNO ID: [id number] Author: Jerri Camacho MD Service: Hepatology Author [...] Camacho MD Gastroenterology AND Hepatology Fellow Pager [phone] D/w staff Dr. Crawford.[facility]02-07-2023 NoteHNO ID: [id number] Author: Minna Tilley MD Service: General Internal Medicine Author Type: Physician Type: Progress Notes Filed: 09/02/2022 2:24 PM Note Text: DEPARTMENT OF HOSPITAL MEDICINE PROGRESS NOTE SERVICE DATE: 09/02/2022 SERVICE TIME: 2:10 PM Hospital Medicine/Primary Attending: Minna Tilley MD NIGHT AND WEEKEND COVERAGE: [facility] COVERAGE: Days: [phone], please page Minna Tilley for patient issues. Nights: [phone], please page Team GIM 6: G/H 8th floor: 16786; Non 8th floor [address] Subjective INTERVAL HPI: No significant events overnight. [...] Sepsis ruled out Lactic (more content not included)...[facility]02-06-2023 Note HNO ID: [id number] Author: Minna Tilley MD Service: General Internal Medicine Author Type: Physician Type: Progress Notes Filed: 09/01/2022 2:25 PM Note Text: DEPARTMENT OF HOSPITAL MEDICINE PROGRESS NOTE SERVICE DATE: 09/01/2022 SERVICE TIME: 1:58 PM Hospital Medicine/Primary Attending: Minna Tilley MD NIGHT AND WEEKEND COVERAGE: [facility] COVERAGE: Days: [phone], please page Minna Tilley for patient issues. Nights: [phone], please page Team GIM 6: G/H 8th floor: 17123; Non 8th floor [address] Subjective INTERVAL HPI: No significant events overnight. [...] -Follow blood cultures -U (more content not included)...[facility]02-06-2023 NoteHNO ID: [id number] Author: RT Leonora(R) Service: ? Author Type: [...] BY: RT Leonora(R) September 01, 2022 12:56 [facility]10-07-2022 Miscellaneous Notes* Telephone Encounter - Nadja [...] Lorena Adames [facility] [phone] documented in this encounterRivers[facility]08-29-2022 Miscellaneous Notes* Telephone Encounter - Nadja Spencer RN - 03/24/2022 1:17 PM EDT I sent patient a reminder to have lab work drawn as soon as possible as he has not had labs drawn in some time. Encouraged him to reach out with questions. Nadja Spencer RN (Cassie), BSN [employer] Business [employer] documented in this encounterRiverside [facility] Hospital08-16-2022 Miscellaneous Notes* Telephone Encounter - Nadja [...] to. Nadja Spencer RN (Cassie), BSN [employer] Business Administrator documented in this encounterRiverside Methodist Hospital08-02-2022 NoteHNO ID: [id number] Author: SHAQ Chua Service: ? Author Type: Primary Mill Roller Type: Progress Notes Filed: 02/25/2022 10:46 AM Note Text: [facility] Assessment Visit Type:Virtual Visit utilizing two-way audio and video for at least a portion of the visit IDENTIFYING INFORMATION: [phone] [email or web address] Lives with of nine years, Екатерина and [...] consented to virtual evaluation. Patient and this law writer present during interview. PRECIPITATING PROBLEM(S):Patient was dx with liver disease in 2017. Completed an IOP at [facility] in summer 2018, and received liver transplant [...] Age 16, every other weekend. Went to [place] for college drank heavily on weekends, then [...] from its effects? Yes (more content not included)...[id number] History of Present illness Narrative* SHAQ Chua - 02/25/2022 9:21 AM EDT [facility] Assessment Visit Type:Virtual Visit utilizing two-way audio and video for at least a portion of the visit IDENTIFYING INFORMATION: [phone] [email or web address] Lives with of nine years, Екатерина andone daughter age five Duration of Interview: start time 9:15 and end time 10:30 pm REFERRAL SOURCE: SHAQ Jaimes liver transplant team BENEFITS: Payor: MEDICARE / Plan: MEDICARE A AND B / Product Type: Medicare / INFORMED CONSENT: Patient completed evaluation via virtual MyChart encounter due to COVID-19. Patient verbally consented to virtual evaluation. Patient and this law writer present during interview. PRECIPITATING PROBLEM(S):Patient was dx with liver disease in 2017. Completed an IOP at [facility] in summer 2018, and received liver transplant [...] Age 16, every other weekend. Went to [place] for college drank heavily on weekends, then [...] MEDICATIONS: none PRIOR CHEMICAL DEPENDENCY TREATMENTS: Yes: [facility] in 2019 TWELVE STEP HISTORY: -Longest period [...] None FAMILY/DEVELOPMENTAL HISTORY: -Born/Raised in (City, State): [place], [place]. Grew up on a farm Biological [...] No EMPLOYMENT HISTORY: -Currently employed? 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 No MARITAL HISTORY: Екатерина -Children: [...] camping, campfires SPIRITUAL ASSESSMENT: -Raised in this Shinto Background: Pentecostalism Current Spiritual/Shinto Practices: yes -Belief in a Higher Power: [...] things - anyone or anything (e.g., family, buddhism, pain of ) - that stopped you [...] suicide or other suicidal behavior. From The [employer] Practice Guidelines for the Assessment [...] meaningful daily activities: Yes Currently Employed: Yes Shinto affiliation (See spiritual assessment section above) Therapeutic [place]: Does pt believe treatment can help his/her [...] VENOUS THROMBOSIS IMAGING VENOGRAM BILATERAL Luis Abdalla, PAIN: Are you experiencing any pain today: [...] the date of the service which included zbvm-oh-asod patient care and completing clinical documentation. documented in this encounterRiverside [facility] Hospital07-28-2022 History of Present illness Narrative* SHAQ [...] states he went through IOP at [facility] and did not have a good experience. DEONDRE recommended [facility] IOP to patient and he is agreeable to trying this program. DEONDRE provided contact info and also emailed [facility] with this referral. Patient states he will also continue to go to his weekly home groupAA session every Thur at 8pm in [facility]. DEONDRE encouraged clt to reach out with any further questions or concerns. SHAQ Jaimes-S Liver Transplant Social Work documented in this encounterRiverside Methodist Hospital07-28-2022 History of Present illness Narrative* SHAQ Jaimes - 02/20/2022 10:05 AM EDT Patient scheduled for virtual follow up visit with DEONDRE champion at 1pm. Patient left 2 messages via [employer] cancelling appointment due to time conflict. LAURA Jaimes Liver Transplant Social Work documented in this encounterRiverside [facility] Hospital06-03-2022 History of Present illness Narrative* FLORENTINO [...] 2021 TIME: 12:54 PM documented in this encounterRiverside Methodist Hospital05-23-2022 History of Present illness Narrative* Aidan [...] IS. I spent more than 20 minutes xmrn-dv-ywju with the patient and over half the time was devoted to counseling and/or coordination of care. Aidan Larios MD documented in this encounterRiverside Methodist Hospital04-15-2022 Miscellaneous Notes* Telephone Encounter - Nadja Spencer RN - 11/08/2021 3:18 PM EDT Patient returned my text and said that he will be unavailable on 11/12, as he and his family just arrived at [facility]. He will be available for virtual visit on 11/19. I notified scheduling. Nadja Spencer (Cassie) RN, BSN [employer] Business [employer] * Telephone Encounter - Nadja Spencer RN - 11/08/2021 2:23 PM EDT I called and LMOM and sent patient a text to follow up with him from [facility]. I let him know that I'd be setting him up for a follow up virtual visit with Dr. Larios. Encouraged him to call back with questions or as needed. Nadja Spencer (Cassie) RN, BSN [employer] Business [employer] documented in this encounterRiverside Methodist Hospital12-17-2021 NoteHNO ID: [id number] Author: Saba Hills MD Service: Hospital Medicine Author Type: Physician Type: Plan of Care Filed: 07/12/2021 9:21 AM Note Text: # Acute Pancreatitis- in setting of biliary stenosis. Resolved. Last amylase was 59 Per recommendation of GI we initially plan to [facility] but that was later [...] Vision MRI was negative Will discuss with infection prevention coordinator We will also consult ID ? Need to look for CMV retinitis Saba Hills MD ?[facility] HospitalFsobivbc69-98-4989 NoteHNO ID: [id number] Author: Maninder Aguilera DO Service: Hospital Medicine Author Type: Physician Type: Progress Notes Filed: 07/11/2021 10:58 AM Note Text: DEPARTMENT OF HOSPITAL MEDICINE PROGRESS NOTE SERVICE DATE: 07/11/2021 SERVICE TIME: 10:15 AM Hospital Medicine/Primary Attending: Maninder Aguilera DO NIGHT AND WEEKEND COVERAGE: ERICK COVERAGE: : [phone], please contact via [employer] Nights: [phone], please page CC Hospitalist Night coverage pager [phone] Subjective INTERVAL HPI: pt seen at bedside. [...] VTE Prophylaxis/Anticoagulants 07/09/21 1245 pneumatic compression stockings (ma,oh) VTE Prophylaxis: VTE prophylaxis appropriate Disposition: Home Plan of care discussed with Provider, RN, Patient SIGNATURE: Maninder Aguilera DO PATIENT NAME: Chuckie Villalta DATE: July 11, 2021 TIME: 10:15 [facility]Tjdmlsjj89[facility]-6009 NoteHNO ID: [id number] Author: Saba Hills MD Service: Hospital Medicine Author Type: Physician Type: Progress Notes Filed: 07/11/2021 5:13 AM Note Text: HOSPITAL MEDICINE PROGRESS NOTE Saba Hills MD NIGHT AND WEEKEND COVERAGE: ERICK COVERAGE: Days: [phone], please contact via [employer] Nights: [phone], please page CC Hospitalist Night coverage pager [phone] Subjective HPI: Interval Events: has pain abdomen [...] sounds + EXTREMITY: : No ankle edema. TECHNOLOGY DEVELOPMENT INTERN: grossly normal. No focal deficit. Lines, Drains, [...] and GI GI is planning [facility] 2. History of hemochromatosis [...] VTE Prophylaxis/Anticoagulants 07/09/21 1245 pneumatic compression stockings (ma,md) VTE Prophylaxis: VTE prophylaxis appropriate. Advised to ambulate as tolerated. Plan of care discussed with: Patient, Family/Significant Other: at bedside, RN and Consultants: Neurology, Nephro, GI Saba Hills MD 07/10/2021 11:00 AM Please use Secure messaging to contact me between 7:30 AM and 4:30 PM Chuckie Villalta HospitalZzccgscn77-03-6868 NoteHNO ID: [id number] Author: Jolynn Jaquez MD Service: Hospital Medicine Author Type: Physician Type: Progress Notes Filed: 07/09/2021 6:55 PM Note Text: HOSPITAL MEDICINE PROGRESS NOTE NIGHT AND WEEKEND COVERAGE: ERICK COVERAGE: Days: [phone], please contact via [employer] Nights: [phone], please page CC Hospitalist Night coverage pager [phone] Hospital Medicine/Primary Attending: Jolynn Jaquez MD Subjective [...] sounds + EXTREMITY: : No ankle edema. TECHNOLOGY DEVELOPMENT INTERN: grossly normal. No focal deficit. Lines, Drains, [...] outpatient. Patient to be scheduled at [facility]. Consider starting heparin subq for prophylaxis tomorrow [...] showed no acute process. 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 Plan to follow up outpatient with Neuro, and consider outpatient MRI brain with contrast if needed. ? Medication and Non-Pharmacologic VTE Prophylaxis/Anticoagulants 07/09/21 1245 pneumatic compression stockings (ma,md) VTE Prophylaxis: VTE prophylaxis appropriate. Advised to ambulate as tolerated. Plan of care discussed with: Patient, Family/Significant Other: at bedside, RN and Consultants: Neurology, Nephro, GI SIGNATURE: Jolynn Jaquez MD PATIENT NAME: Chuckie Villalta DATE: July 09, 2021 TIME: 4:16 [facility] HospitalGbnvfnzy93-92-9401 NoteHNO ID: [id number] Author: Tani Woodward MD, PhD Service: Neurology [...] Woodward MD, PhD July 09, 2021 3:20 [facility] [id number] NoteHNO ID: [id number] Author: Isa San RDMS, RVT Service: Radiology Author Type: Office Lead Type: Progress Notes Filed: 07/08/2021 12:04 PM [...] Not applicable SIGNED BY: Isa San RDMS, RVMarshal July 08, 2021 12:03 [facility] HospitalIxovrkqf85-74-0839 NoteHNO ID: [id number] Author: Jolynn Jaquez MD Service: Hospital Medicine Author Type: Physician Type: Progress Notes Filed: 07/08/2021 11:56 AM Note Text: HOSPITAL MEDICINE PROGRESS NOTE NIGHT AND WEEKEND COVERAGE: ERICK COVERAGE: Days: [phone], please contact via [employer] Nights: [phone], please page CC Hospitalist Night coverage pager [phone] Hospital Medicine/Primary Attending: Jolynn Jaquez MD Subjective [...] tenderness in EXTREMITY: : No ankle edema. TECHNOLOGY DEVELOPMENT INTERN: grossly normal. No focal deficit. Cranial nerves [...] is still waiting to be transferred to [facility]). Pain management consult. YOAN on CKD [...] [place] DATE: July 08, 2021 TIME: 11:30 [id number] NoteHNO ID: [id number] Author: Jolynn Jaquez MD Service: Hospital Medicine Author Type: Physician Type: Progress Notes Filed: 07/07/2021 3:10 PM Note Text: HOSPITAL MEDICINE PROGRESS NOTE NIGHT AND WEEKEND COVERAGE: ERICK COVERAGE: Days: [phone], please contact via [employer] Nights: [phone], please page CC Hospitalist Night coverage pager [phone] Hospital Medicine/Primary Attending: Jolynn Jaquez MD Subjective HPI: Interval Events: GOLF CART ATTENDANT and prn dilaudid helping with pain abdomen. [...] minimal palpation EXTREMITY: : No ankle edema TECHNOLOGY DEVELOPMENT INTERN: grossly normal. No focal deficit. Lines, Drains, and Airways Line Peripheral 07/05/21 1811 Right Antecubital 20 Gauge 1 day Peripheral 07/05/21 1923 Short Left Antecubital 20 Gauge 1 day Reviewed lines and needs to be continued: REASONS: Intravenous fluids Medications: Reviewed Diagnostic tests reviewed: Most recent imaging Most recent labs Assessment AND Plan Active Hospital Problems as of 07/07/2021 Noted - Resolved [facility] * (Principal) Acute pancreatitis 07/05/2021 [...] input Patient waiting to be transferred to [facility]. Likely needs ERCP. Pain control with fentanyl GOLF CART ATTENDANT, dilaudid prn Close monitoring ? Hemochromatosis 03/18/2018 [...] to get update regarding bed availability at [facility]. No bed assigned at [facility] yet. SIGNATURE: Jolynn Jaquez MD PATIENT NAME: Chuckie Villalta DATE: July 07, 2021 TIME: 2:59 [id number] NoteHNO ID: [id number] Author: Roma Horan MD Service: Hospital Medicine Author Type: Physician Type: Progress Notes Filed: 07/06/2021 12:47 PM Note Text: DEPARTMENT OF HOSPITAL MEDICINE PROGRESS NOTE SERVICE DATE: 07/06/2021 SERVICE TIME: 12:43 PM Hospital Medicine/Primary Attending: Roma Horan MD NIGHT AND WEEKEND COVERAGE: ERICK COVERAGE: Days: [phone], please contact via [employer] Nights: [phone], please page CC Hospitalist Night coverage pager [phone] Subjective INTERVAL HPI: c/o 8/10 abdominal pain. [...] INTRAVENOUS q 6 H PRN - fentaNYL GOLF CART ATTENDANT 20 mcg/mL in NaCl 0.9% 100 mL [...] a noncontrast examination - Patient [facility] when bed available - IV fluids, NPO except meds - symptom management - Vanco, cipro, flagyl started in ED--c/w same for now. Leukocytosis resolved today -improving lipase - Consult GI, pending [facility] transfer, appreciate recs. May need ERCP [...] recipient (HCC) Assessment AND Plan: seen at [facility], admits some noncompliance with medications as of late, and rare alcohol use - transfer to [facility] for continued care when able - continue prograf. Will hold Actigall while NPO ? Primary hypertension Assessment AND Plan: elevated in ED, likely due to pain and missed doses - resume po antihypertensives as able - manage pain as able Medication and Non-Pharmacologic VTE Prophylaxis/Anticoagulants VTE Prophylaxis: VTE prophylaxis appr (more content not included)...[facility] [id number] NoteHNO ID: [id number] Author: Interface Note Service: ? Author Type: ? Type: Progress Notes Filed: 07/06/2021 2:53 AM Note Text: Epic Scheduled Downtime: 07/06/2021 1:00:00 AM to 07/06/2021 2:38:59 AMLay[facility] [id number] NoteHNO ID: [id number] Author: Lisseth Raymond APRN.SALES ADVISORY MANAGER Service: Hospital Medicine Author Type: Nurse Practitioner Type: Plan of Care Filed: 07/05/2021 11:59 PM Note Text: Patient's pain not being controlled with prn dilaudid. Per Up to Date, GOLF CART ATTENDANT recommended and fentanyl the safest drug to use for this purpose I discussed case with Dr Shook, I also discussed with the NOM and the pharmacist. A GOLF CART ATTENDANT pump ordered. Lisseth Raymond APRN.[facility] [id number] NoteHNO ID: [id number] Author: Caryl Duran RT(R) Service: ? Author Type: Technologist Type: Progress [...] BY: RT Alok(R) July 05, 2021 11:38 [facility] HospitalRngevfbh87-69-1579 NoteHNO ID: [id number] Author: RT Devorah(R) Service: Radiology Author Type: [...] Soila Parker RT(R) July 05, 2021 7:00 [facility] HospitalThevfruk06-67-8822 History of Past illness Narrative* Problem Noted [...] of this encounter (statuses as of 11/08/2021) [facility] History of Past illness Narrative* Problem [...] of this encounter (statuses as of 12/16/2021) [facility] of [facility] Narrative* Problem [...] of this encounter (statuses as of 12/28/2021) [facility] of [facility] illness Narrative* Problem [...] of this encounter (statuses as of 12/28/2021) [facility] of [facility] Narrative* Problem [...] of this encounter (statuses as of 02/20/2022) [facility] of [facility] Narrative* Problem [...] of this encounter (statuses as of 02/25/2022) [facility] Narrative* Problem [...] of this encounter (statuses as of 03/11/2022) [facility] Narrative* Problem [...] of this encounter (statuses as of 03/24/2022) [facility] Narrative* Problem [...] of this encounter (statuses as of 05/05/2022) [facility] Narrative* Problem [...] of this encounter (statuses as of 07/28/2022) [facility] Narrative* Problem [...] of this encounter (statuses as of 09/04/2022) [facility] Narrative* Problem [...] of this encounter (statuses as of 09/04/2022) [facility] Narrative* Problem [...] of this encounter (statuses as of 09/22/2022) [facility] note* Diagnosis Liver replaced by transplant (HCC)- Primary Liver replaced by transplant documented in this encounter [facility] note* Diagnosis Liver replaced by transplant (HCC)- Primary Liver replaced by transplant Need for prophylactic immunotherapy documented in this encounter [facility] note* Diagnosis Uncomplicated alcohol dependence (HCC) Other and unspecified alcohol dependence, unspecified drinking behavior documented in this encounter [facility] note* Diagnosis Liver transplant recipient (HCC)- Primary documented in this encounter [facility] note* Diagnosis 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 documented in this encounter [facility] noteNo assessment [facility] Work [facility]: Evaluation note* Diagnosis Onset Date Resolution Status Admit Date Hypertension acute August 2:02pm Liver transplant rejection acute September 02, 2024 2:02pm Mid back pain on left side acute September 02, 2024 2:02pm Wellness examination acute Febr 2024 2:02pm [facility] Work Phone: Hisljns general Narrative - Reported* Type Description Date [...] History COLONOSCOPY 2019 Hospitalization History See Above WHOOP Other Hisicqt general Narrative - Reported* Type Description Date [...] stent replaced 11/2022 Hospitalization History See Above WHOOP Other History general Narrative - Reported* Type [...] History ERCP 02/2023 Hospitalization History See Above WHOOP Other Hospital course Narrative No data available for this section [facility] No data available for this section [facility] (narrative)* Outpatient Procedure (Routine) - Pending Review Specialty Diagnoses / Procedures Referred By Vale lopez Referred To Contact [facility] Diagnoses Biliary stricture Procedures ERCP ERCP DX COLLECTION SPECIMEN BRUSHING/WASHING Betina Quezada MD [address] [place] [address] [facility] [address] [place] [address] Referral ID Status Reason Start Date Expiration Date Visits Requested Visits Authorized [id number] Pending Review Auto-Generat ed Referral 12/02/2022 09/04/2023 1 1 [facility] Summary Purpose Family History Relationship Condition Age at Onset Recorded Date/T sowmya father Malignant neoplasm of colon Unknown Hypertension Unknown mother Hypertension Unknown Myocardial infarction Unknown brother Epilepsy Unknown Advance Directives Documents on File Type Date Recorded Patient Courtesy Van Driver Expl anation Advance Directive(s) 10/30/2021 12:47 PM Advance Directive(s) 07/05/2021 6:47 PM Advance Directive(s) 07/16/2020 12:03 PM Advance Directive(s) 05/02/2020 10:37 AM Advance Directive(s) 07/10/2019 5:35 PM Advance Directive(s) 01/21/2019 3:11 PM Advance Directive(s) 10/06/2018 10:21 AM Advance Directive(s) 07/13/2018 6:11 AM Documents on File Type Date Recorded Patient Courtesy Van Driver Expl anation Advance Directive(s) 10/30/2021 12:47 PM Advance Directive(s) 07/05/2021 6:47 PM Advance Directive(s) 07/16/2020 12:03 PM Advance Directive(s) 05/02/2020 10:37 AM Advance Directive(s) 07/10/2019 5:35 PM Advance Directive(s) 01/21/2019 3:11 PM Advance Directive(s) 10/06/2018 10:21 AM Advance Directive(s) 07/13/2018 6:11 AM Documents on File Type Date Recorded Patient Courtesy Van Driver Expl anation Advance Directive(s) 10/06/2018 10:21 AM Latest Code Status on File Code Status Date Activated Date Inactivated Comments Full Code 09/01/2022 12:05 AM Full Code Order Discussed With: Patient Documents on File Type Date Recorded Patient Courtesy Van Driver Expl anation Advance Directive(s) 10/06/2018 10:21 AM Latest Code Status on File Code Status Date Activated Date Inactivated Comments Full Code 09/01/2022 12:05 AM Latest Code Status on File Code Status Date Activated Date Inactivated Comments Full Code 09/01/2022 12:05 AM 09/05/2022 8:59 PM Advance Directive Response Recorded Date/ Time Advance Directives No February 28 8:54am Advance Directive Response Recorded Date/ Time Advance Directives No February 28 7:54am Reason for Referral Specialty Diagnoses / Procedures Referred By Contac t Referred To Contact CT IMAGING Diagnoses Alcohol-induced acute pancreatitis, unspecified complication status Procedures CT ABDOMEN W IVCON CT ABDOMEN W/CONTRAST Aidan Larios MD [address] [place] [address] Ct Imaging Referral ID Status Reason Start Date Expiration Date Visits Requested Visits Authorized [id number] Pending Review Auto-Generat ed Referral 12/24/2021 01/09/2023 1 1 Referral ID Status Reason Start Date Expiration Date V isits Requested Visits Authorized [id number] Closed Auto-Generated Referral Patient Cleared - INN Insurance Found 12/24/2021 01/09/2023 1 1 Chief Complaint and Reason for Visit Chief Complaint right foot pain Chief Complaint Admit Date Amb Documentation August 23, 2024 9 :28am Pain in back September 02, 2024 2 :02pm Reason for Visit Admit Date Hypertension September 02, 2024 2 :02pm Liver transplant rejection September 02, 2024 2:02pm Mid back pain on left side September 02, 2024 2:02pm Wellness examination September 02, 2024 2:02pm Additional Source Comments (unrecognized sect ion and content) No Status Records FoundNo Status Records FoundNo Status Records FoundNo Status Records FoundNo Status Records FoundNo Status Records FoundNo Status Records Found INFORMATION SOURCE (unrecogn ized section and content) DATE CREATED AUTHOR 12/20/2020 [facility] DATE CREATED AUTHOR AUTHOR'S ORGANIZ ATION 07/13/2021 [facility] DATE CREATED AUTHOR AUTHOR'S ORGANIZ ATION 08/18/2021 [facility] DATE CREATED AUTHOR AUTHOR'S ORGANIZ ATION 11/09/2022 [facility] DATE CREATED AUTHOR AUTHOR'S ORGANIZ ATION 03/20/2023 [facility] DATE CREATED AUTHOR AUTHOR'S ORGANIZ ATION 06/28/2023 [facility] DATE CREATED AUTHOR AUTHOR'S ORGANIZ ATION 07/18/2024 [facility] Source Comments (unrecognize d section and content) In the event this informatio n is protected by the Federal Confidentiality of Alcohol and Drug Abuse Patient Records regulations: The Federal rules restrict any use of the information to criminally investigate or prosecute any alcohol or drug abuse patient.[facility] Hospital[facility] the event this information is protected by the Federal Confidentiality of Alcohol and Drug Abuse Patient Records regulations: The Federal rules restrict any use of the information to criminally investigate or prosecute any alcohol or drug abuse patient.[facility] HospitalIn the event this information is protected by the Federal Confidentiality of Alcohol and Drug Abuse Patient Records regulations: The Federal rules restrict any use of the information to criminally investigate or prosecute any alcohol or drug abuse patient.[facility] HospitalIn the event this information is protected by the Federal Confidentiality of Alcohol and Drug Abuse Patient Records regulations: The Federal rules restrict any use of the information to criminally investigate or prosecute any alcohol or drug abuse patient.[facility] HospitalIn the event this information is protected by the Federal Confidentiality of Alcohol and Drug Abuse Patient Records regulations: The Federal rules restrict any use of the information to criminally investigate or prosecute any alcohol or drug abuse patient.[facility] HospitalIn the event this information is protected by the Federal Confidentiality of Alcohol and Drug Abuse Patient Records regulations: The Federal rules restrict any use of the information to criminally investigate or prosecute any alcohol or drug abuse patient.[facility] HospitalIn the event this information is protected by the Federal Confidentiality of Alcohol and Drug Abuse Patient Records regulations: The Federal rules restrict any use of the information to criminally investigate or prosecute any alcohol or drug abuse patient.[facility] HospitalIn the event this information is protected by the Federal Confidentiality of Alcohol and Drug Abuse Patient Records regulations: The Federal rules restrict any use of the information to criminally investigate or prosecute any alcohol or drug abuse patient.[facility] HospitalIn the event this information is protected by the Federal Confidentiality of Alcohol and Drug Abuse Patient Records regulations: The Federal rules restrict any use of the information to criminally investigate or prosecute any alcohol or drug abuse patient.[facility] HospitalIn the event this information is protected by the Federal Confidentiality of Alcohol and Drug Abuse Patient Records regulations: The Federal rules restrict any use of the information to criminally investigate or prosecute any alcohol or drug abuse patient.[facility] HospitalIn the event this information is protected by the Federal Confidentiality of Alcohol and Drug Abuse Patient Records regulations: The Federal rules restrict any use of the information to criminally investigate or prosecute any alcohol or drug abuse patient.[facility] HospitalIn the event this information is protected by the Federal Confidentiality of Alcohol and Drug Abuse Patient Records regulations: The Federal rules restrict any use of the information to criminally investigate or prosecute any alcohol or drug abuse patient.[facility] HospitalIn the event this information is protected by the Federal Confidentiality of Alcohol and Drug Abuse Patient Records regulations: The Federal rules restrict any use of the information to criminally investigate or prosecute any alcohol or drug abuse patient.[facility] HospitalIn the event this information is protected by the Federal Confidentiality of Alcohol and Drug Abuse Patient Records regulations: The Federal rules restrict any use of the information to criminally investigate or prosecute any alcohol or drug abuse patient.[facility] Reason for Visit (unrecogniz ed section and content) Reason Comments Radiology CT Specialty Diagnoses / Procedures Referred By Contac t Referred To Contact CT IMAGING Diagnoses Alcohol-induced acute pancreatitis, unspecified complication status Procedures CT ABDOMEN W IVCON CT ABDOMEN W/CONTRAST Aidan Larios MD [address] [place] [address] Ct Imaging Referral ID Status Reason Start Date Expiration Date V isits Requested Visits Authorized [id number] Closed Auto-Generated Referral Patient Cleared - INN Insurance Found 12/24/2021 01/09/2023 1 1 Reason Comments Hospital Follow Up Reason Comments Established Patient Reason Comments Covid19 Concern Reason Comments Reminder To Have Labs Drawn Reason Comments Refill Request Reason Comments Endoscopy Call Reason Comments Care Coordination [facility] Care Teams (unrecognized sec tion and content) Team Status: Active Member Role Status Dates Luis Abdalla DO Primary Care Provider Active Team Status: Active Member Role Status Dates Luis Abdalla DO Primary Care Provider Active Start: August 20, 2024 Elder Wesley DO Attending Provider Active Start: August 20, 2024 Team Status: Active Member Role Status Dates Luis Abdalla DO Primary Care Provider Active Start: August 23, 2024 Mckenna Blood CMA Attending Provider Active Start: August 23, 2024 Team Status: Inactive Member Role Status Dates Luis Abdalla DO Primary Care Provide r, Attending Provider Active Start: September 02, 2024 End: February 7th, 2025 Electrical Line Mechanic Relationship Specialty Start Date End Date Luis Abdalla, DO [address] [place] [facility] [place] [address] PCP - General Internal Medicine 01/12/18 Angie Fernandes Jr. [address] [address] Referring Gastroenterology 01/12/18 Nadja Spencer RN [facility] [address] [place] [address] Transplant Center 08/31/19 Electrical Line Mechanic Relationship Specialty Start Date End Date Luis Abdalla, DO [address] [place] [facility] [place] [address] PCP - General Internal Medicine 01/12/18 Angie Fernandes Jr. [address] [address] Referring Gastroenterology 01/12/18 Nadja Spencer RN [facility] [address] [place] [address] Transplant Center 08/31/19 Electrical Line Mechanic Relationship Specialty Start Date End Date Luis Abdalla, DO [address] [place] [facility] [place] [address] PCP - General Internal Medicine 01/12/18 Angie Fernandes Jr. [address] [address] Referring Gastroenterology 01/12/18 Nadja Spencer RN [facility] [address] [place] [address] Transplant Center 08/31/19 Electrical Line Mechanic Relationship Specialty Start Date End Date Luis Abdalla, DO [address] [place] [facility] [place] [address] PCP - General Internal Medicine 01/12/18 Angie Fernandes Jr. [address] [address] Referring Gastroenterology 01/12/18 Nadja Spencer RN [facility] [address] [place] [address] Transplant Center 08/31/19 Electrical Line Mechanic Relationship Specialty Start Date End Date Luis Abdalla, DO [address] [place] [address] PCP - General Internal Medicine 01/12/18 Angie Fernandes Jr. [address] [address] Referring Gastroenterology 01/12/18 Nadja Spencer RN [facility] [address] [place] [id number] Transplant Center 08/31/19 Electrical Line Mechanic Relationship Specialty Start Date End Date Luis Abdalla, DO [address] [place] [facility] [place] [address] PCP - General Internal Medicine 01/12/18 Angie Fernandes Jr. [address] [address] Referring Gastroenterology 01/12/18 Nadja Spencer RN [facility] [address] [place] [address] Transplant Center 08/31/19 Electrical Line Mechanic Relationship Specialty Start Date End Date Luis Abdalla, DO [address] [facility] [place] [address] PCP - General Internal Medicine 01/12/18 Angie Fernandes Jr., DO [address] [address] Referring Gastroenterology 01/12/18 Nadja Spencer RN [facility] [address] [place] [address] Transplant Center 08/31/19 Electrical Line Mechanic Relationship Specialty Start Date End Date Luis Abdalla, DO [address] [facility] [place] [address] PCP - General Internal Medicine 01/12/18 Angie Fernandes Jr., DO [address] [address] Referring Gastroenterology 01/12/18 Nadja Spencer RN [facility] [address] [place] [id number] Transplant Center 08/31/19 Electrical Line Mechanic Relationship Specialty Start Date End Date Luis Abdalla, DO [address] [place] [address] PCP - General Internal Medicine 01/12/18 Angie Fernandes Jr., DO [address] [address] Referring Gastroenterology 01/12/18 Nadja Spencer, BATOOL [facility] [address] [place] [id number] Transplant Center 08/31/19 Electrical Line Mechanic Relationship Specialty Start Date End Date Luis Abdalla, DO [address] [place] [address] PCP - General Internal Medicine 01/12/18 Angie Fernandes Jr., DO [address] [address] Referring Gastroenterology 01/12/18 Nadja Spencer, BATOOL [facility] [address] [place] [phone] Transplant Center 08/31/19 Team Status: Active Member Role Status Dates Luis Abdalla DO Primary Care Provider Active Team Status: Inactive Member Role Status Dates Luis Abdalla DO Primary Care Provide r, Attending Provider Active Start: February 29, 2024 End: February 29, 2024 Team Status: Active Member Role Status Dates Luis Abdalla DO Primary Care Provider Active Start: August 20, 2024 Elder Wesley DO Attending Provider Active Start: August 20, 2024 Team Status: Active Member Role Status Dates Luis Abdalla DO Primary Care Provider Active Start: August 23, 2024 Mckenna Blood CMA Attending Provider Active Start: August 23, 2024 Team Status: Inactive Member Role Status Dates Luis Abdalla , DO Primary Care Provide r, Attending Provider Active Start: September 02, 2024 End: September 02, 2024 Goals (unrecognized section and content) Goals [...] BE BASED ON THE PRIMARY CLINICAL RECORDS. [employer] provides no warranty or guarantee of the accuracy or completeness of information in this document.
--- NOTE | 2024-10-13 10:07 | P.CN_ITS ---
Consult Note: HPI Data of Consult Consult date: 03/07/24 Requesting Physician: Brandy Chan NP Primary Care Provider: Luis Hicks, DO Consult Narrative Reason for consult: low back, bilateral foot pain Narrative: 38yom who presents for assessment. notes some returning pain in low back with radiation into bilateral feet. continues in a series of provider directed home exercises, which he has done for >6 weeks. has discontinued gabapentin due to side effects. prior lumbar CHIP provided moderate relief for 1 month. pain today 5/10 bilateral feet throbbing and stabbing, pain increased with standing walking activity and sleep. CATY 24% with moderate to severe pain impacting ADLs and sleep. cc:: CC: Brandy Chan NP Review of Systems ROS Status of ROS 10 or more systems reviewed and unremark able except as noted in history and below Musculoskeletal Reports: extremity pain; Denies: back pain PFSH [facility] Medical History (Updated 10/13/24 @ 10:08 by Brandy Chan NP) Liver transplant failure and rejection ?T86.42 - Liver transplant failure (ICD-10) ?T86.41 - Liver transplant rejection (ICD-10) Acid reflux ?K21.9 - Gastro-esophageal reflux disease without esophagitis (ICD-10) Hemochromatosis ?E83.119 - Hemochromatosis, unspecified (ICD-10) High blood pressure ?I10 - Essential (primary) hypertension (ICD-10) Surgical History History of fusion of cervical spine ?Z98.1 - Arthrodesis status (ICD-10) History of ERCP ?Z98.890 - Other specified postprocedural states (ICD-10) History of liver transplant ?Z94.4 - Liver transplant status (ICD-10) Social History Little interest or pleasure in doing things: not at all Feeling down, depressed, or hopeless: not at all Meds Home Medications and Allergies Home Medications ?Medication ?Instructions ?Recorded ?Confirmed ?Type amlodipine 10 mg tablet 10 mg PO DAILY 09/28/23 08/20/24 History carvedilol 12.5 mg tablet 25 mg PO BID 09/28/23 08/20/24 History pantoprazole 40 mg tablet,delayed 40 mg PO DAILY 09/28/23 08/20/24 History release tacrolimus 1 mg capsule, 2 mg PO BID 09/28/23 08/20/24 History immediate-release ursodiol 300 mg capsule 300 mg PO TID 09/28/23 08/20/24 History gabapentin 300 mg capsule 300 mg PO BID #60 caps 06/29/24 08/20/24 Rx nabumetone 750 mg tablet 750 mg PO BID PRN pain #14 tabs 08/20/24 Rx orphenadrine citrate 100 mg 100 mg PO Q12H PRN pain #14 tabs 08/20/24 Rx tablet,extended release Allergies Allergy/AdvReac Type Severity Reaction Status Date / Time midazolam (From Versed) Allergy Unknown Agitated Verified 08/20/24 13:27 Penicillins Allergy Unknown Rash Verified 08/20/24 13:27 Exam Narrative Exam Narrative: Psych-alert and oriented x 3. Attentive and appropriate, constitutionally normal, displays normal mood and affect per situation. There are no obvious deficits in memory, reasoning, or intellect.? Skin-no obvious rashes, bruising, erythema noted to the patient's area of pain.? Extremities- extremities are warm with minimal edema and palpable pulses. Lumbar-tenderness to palpation noted in the lumbar spine and paraspinal musculature. Pain is not elicited with flexion, extension, and lateral rotation of the lumbar spine. Range of motion is not diminished with these motions. Facet loading maneuvers are negative.? Strength-noted to be unremarkable with the exception of decreased strength rated at 4 out of 5 in bilateral anterior tibialis, posterior tibialis. Sensory-no notable sensory deficits in the bilateral lower extremities to touch or pinprick in all dermatomal distributions with the exception to decreased sensation to the bilateral L4, 5,S1 dermatomal distribution Coordination remains intact.? Gait remains non-antalgic. Assessment and Plan Assessment and Plan (1) Lumbar stenosis without neurogenic claudication: (2) Lumbar radiculopathy: (3) Polyneuropathy: Plan start transdermal therapeutics cream 7a TID to bilateral feet DC gabapentin due to ineffectiveness and side effects defer additional medication management at this time due to liver transplant and current medications pt going to talk with PCP about chronic vascular concerns, have not had any recent testing but prior to liver transplant pt was following with vascular for circulatory issues f/u with Dr Thompson for evaluation
== END 2024-10-13 09:41 | disposition home or self-care (01) ==
LOC: PM 09:40
PROVIDERS: PCP Internal Medicine; Visit Provider Nurse Practitioner
DX: M48.062 Spinal stenosis, lumbar region with neurogenic claudication (principal); M54.16 Radiculopathy, lumbar region; G62.9 Polyneuropathy, unspecified
CPT/HCPCS: G0463

== ENCOUNTER 2024-11-14 15:13 | Outpatient (OUT) | payer MEDICARE, MEDICAID, SELFPAY ==
--- NOTE | 2024-11-14 15:59 | P.CN_ITS ---
Consult Note: HPI Data of Consult Patient: known to practice within the last 3 years Consult date: 11/14/24 Requesting Physician: Vicente Thompson MD Primary Care Provider: Luis Hicks DO Consult Narrative Reason for consult: left foot pain Narrative: 39yom who presents for assessment. notes increasing left foot pain, sometimes to the point where he cannot walk on it without crutches. left foot mri reviewed, significant for moderate midfoot arthritis. has engaged in >6 weeks of provider directed home exercises, without relief. tried lyrica 50mg, which was beneficial, but gave him nightmares. cc:: CC: Vicente Thompson MD Review of Systems ROS Status of ROS 10 or more systems reviewed and unremark able except as noted in history and [facility] Liver [facility] failure and rejection ?T86.42 - Liver transplant failure (ICD-10) ?T86.41 - Liver transplant rejection (ICD-10) Acid reflux ?K21.9 - Gastro-esophageal reflux disease without esophagitis (ICD-10) Hemochromatosis ?E83.119 - Hemochromatosis, unspecified (ICD-10) High blood pressure ?I10 - Essential (primary) hypertension (ICD-10) Surgical History History of fusion of cervical spine ?Z98.1 - Arthrodesis status (ICD-10) History of ERCP ?Z98.890 - Other specified postprocedural states (ICD-10) History of liver transplant ?Z94.4 - Liver transplant status (ICD-10) Social History Little interest or pleasure in doing things: not at all Feeling down, depressed, or hopeless: not at all Meds Home Medications and Allergies Home Medications ?Medication ?Instructions ?Recorded ?Confirmed ?Type amlodipine 10 mg tablet 10 mg PO DAILY 09/28/23 08/20/24 History carvedilol 12.5 mg tablet 25 mg PO BID 09/28/23 08/20/24 History pantoprazole 40 mg tablet,delayed 40 mg PO DAILY 09/28/23 08/20/24 History release tacrolimus 1 mg capsule, 2 mg PO BID 09/28/23 08/20/24 History immediate-release ursodiol 300 mg capsule 300 mg PO TID 09/28/23 08/20/24 History gabapentin 300 mg capsule 300 mg PO BID #60 caps 06/29/24 08/20/24 Rx nabumetone 750 mg tablet 750 mg PO BID PRN pain #14 tabs 08/20/24 Rx orphenadrine citrate 100 mg 100 mg PO Q12H PRN pain #14 tabs 08/20/24 Rx tablet,extended release pregabalin 25 mg capsule (Lyrica) 25 mg PO TID #90 caps 11/14/24 Rx Allergies Allergy/AdvReac Type Severity Reaction Status Date / Time midazolam (From Versed) Allergy Unknown Agitated Verified 08/20/24 13:27 Penicillins Allergy Unknown Rash Verified 08/20/24 13:27 Exam Narrative Exam Narrative: Psych-alert and oriented x 3.? Attentive and appropriate, constitutionally normal, displays normal mood and affect per situation.? There are no obvious deficits in memory, reasoning, or intellect. Examination of the left extremity reveals notable hyperpathia and allodynia.? Notable atrophy and diffuse weakness present in the extremity.? Decreased range of motion and strength is noted in the extremity.? Coordination remains intact.? Gait remains non-antalgic. Assessment and Plan Assessment and Plan (1) Left foot pain: Plan 39yom who presents for assessment. failed conservative measures, as noted. imaging reviewed, as noted. given symptoms and imaging, prudent to attempt left foot injection under fluoroscopic guidance. he is in agreement. meds reviewed, will decrease lyrica to 25mg tid. follow up after procedure.
== END 2024-11-14 15:14 | disposition home or self-care (01) ==
LOC: PM 15:14
PROVIDERS: PCP Internal Medicine; Visit Provider Anesthesiology
DX: M79.672 Pain in left foot (principal)
CPT/HCPCS: G0463

== ENCOUNTER 2024-11-21 09:45 | Day surgery (SDC) | payer MEDICARE, MEDICAID, SELFPAY ==
[2024-11-21 10:23] VITALS: BP 131/97; PULSE 82; TEMP 36.4; O2SAT 98
[2024-11-21 10:37] VITALS: BP 144/72; PULSE 55; O2SAT 98
[2024-11-21 10:38] VITALS: BP 143/83; PULSE 84; O2SAT 96
[2024-11-21] MEDS: METHYLPREDNISOLONE ACETATE 40 MG/ML VIAL INJ (10:39)
[2024-11-21] MEDS: BUPIVACAINE HCL 0.25% PF 25 MG/10 ML VIAL 2 ML INJ (10:39)
[2024-11-21] MEDS: ETHYL CHLORIDE 116 ML TOPICAL SPRAY BOTTLE 1 APPLIC TOPICAL (10:39)
--- NOTE | 2024-11-21 10:40 | W.PM.PROCNOT ---
Date of procedure: 11/21/24 Pre-op diagnosis: Left foot pain Post-op diagnosis: same as pre-op Procedure: Procedure: Left first tarsometatarsal joint injection Medications: Bupivacaine 0.25% 2cc, depomedrol 40mg After informed consent was obtained, the patient was brought to the medical procedure unit and placed in the supine position, when a timeout was completed verifying correct patient, procedure, site, positioning, implant, and/or special equipment.? The skin overlying the area was prepped and draped in standard sterile fashion using alcohol.? A 27-gauge needle was inserted towards the left first tarsometatarsal joint under direct fluoroscopic imaging.? Needle tip was advanced until the joint was encountered.? We instilled a total of 2 mL of solution.? Postoperatively needles were removed.? The patient tolerated the procedure well without complication.? The patient reported reduction in pain symptoms postoperatively. Anesthesia: Local Surgeon: Vicente Thompson Pathology: none sent Condition: stable Disposition: no change
== END 2024-11-21 10:45 | disposition home or self-care (01) ==
LOC: SURGOUT 09:46
PROVIDERS: PCP Internal Medicine; Visit Provider Anesthesiology
DX: M79.672 Pain in left foot (principal)
CPT/HCPCS: 20605; 77002; J0665; J1010

== ENCOUNTER 2024-11-30 14:44 | Outpatient (OUT) | payer MEDICARE, MEDICAID, SELFPAY ==
--- NOTE | 2024-11-30 15:13 | PM.CN ---
Consult Note: HPI Data of Consult Patient: known to practice within the last 3 years Requesting Physician: Brandy Chan NP Primary Care Provider: Luis Hicks DO Consult Narrative Reason for consult: left foot pain Narrative: Chuckie Villalta a pleasant 39 year old male presents for evaluation. recently underwent left foot injection with 95% improvement ongoing. pain 1/10 intermittently pressure throbbing sharp pain with random onset. no specific aggrevating or alleviating factors or duration. did not trial lyrica do to concerns of potential side effects, pt has hx of liver transplant and is on antirejection meds. cc:: CC: Brandy Chan NP Review of Systems ROS Musculoskeletal Denies: extremity pain or joint pain PFSH PFSH Medical History Liver transplant failure and rejection ?T86.42 - Liver transplant failure (ICD-10) ?T86.41 - Liver transplant rejection (ICD-10) Acid reflux ?K21.9 - Gastro-esophageal reflux disease without esophagitis (ICD-10) Hemochromatosis ?E83.119 - Hemochromatosis, unspecified (ICD-10) High blood pressure ?I10 - Essential (primary) hypertension (ICD-10) Surgical History History of fusion of cervical spine ?Z98.1 - Arthrodesis status (ICD-10) History of ERCP ?Z98.890 - Other specified postprocedural states (ICD-10) History of liver transplant ?Z94.4 - Liver transplant status (ICD-10) Social History Little interest or pleasure in doing things: not at all Feeling down, depressed, or hopeless: not at all Meds Home Medications and Allergies Home Medications ?Medication ?Instructions ?Recorded ?Confirmed ?Type amlodipine 10 mg tablet 10 mg PO DAILY 09/28/23 11/21/24 History carvedilol 12.5 mg tablet 25 mg PO BID 09/28/23 11/21/24 History pantoprazole 40 mg tablet,delayed 40 mg PO DAILY 09/28/23 11/21/24 History release tacrolimus 1 mg capsule, 2 mg PO BID 09/28/23 11/21/24 History immediate-release ursodiol 300 mg capsule 300 mg PO TID 09/28/23 11/21/24 History pregabalin 25 mg capsule (Lyrica) 25 mg PO TID #90 caps 11/14/24 11/21/24 Rx diazepam 10 mg tablet 10 mg PO BID 11/21/24 11/21/24 History sulfamethoxazole 400 1 tab PO DAILY 11/21/24 11/21/24 History mg-trimethoprim 80 mg tablet (Bactrim) Allergies Allergy/AdvReac Type Severity Reaction Status Date / Time midazolam (From Versed) Allergy Unknown Agitated Verified 11/21/24 10:22 Penicillins Allergy Unknown Rash Verified 11/21/24 10:22 Exam Constitutional Documenting provider has reviewed patient's vital signs: yes Common normals: no apparent distress, oriented x3, healthy appearing, alert and well nourished General appearance: cooperative HENMT Common normals: normocephalic, hearing grossly normal bilaterally and moist oral mucous membranes Head and scalp: normocephalic Eye Common normals: PERRL Pupil: PERRL Neck & C-Spine Common normals: full ROM General: normal visual inspection Chest Common normals: inspection of chest normal Respiratory Common normals: normal respiratory effort, no retractions and no use of accessory muscles Extremity Other: no edema noted to bilateral foot, full ROM without pain. warm to touch well perfused Neuro Common normals: oriented x3 Sensorium/orientation: alert Psych Common normals: mental status grossly normal, thought process normal, cooperative, affect normal, speech normal and activity/motor behavior normal Speech: normal speech Thought process: normal thought process Results Additional Findings Additional findings: If on a controlled substance or opioids, I have checked an [place] report on this patient and there are no aberrancies noted in the prescribing history.??If on a controlled substance or opioid a drug screen was completed and reviewed within the last year, and if there has not been a drug screen completed we ordered one today to monitor higher risk, state monitored pain medication use. As part of providing excellent, safe, comprehensive care, the following was completed at our patient's visit: 1. A medication reconciliation and review to ensure accurate knowledge of current/active medications, including asking our patients to inform us about any [id number] medications or herbal remedies/nutritional supplements/alternative remedies. 2. A review to specifically ensure our patients have had annual screening for screening for depression, screening for tobacco use, and screening for unhealthy alcohol use. For concerning screenings had a discussion with the patient, provided patient education, and recommended follow-up with primary care provider when appropriate. If patient noted with a risk of falling, they received education on strength, gait, and balance training to prevent future risk of falling. Portions of this note may have been carried over from the previous visit and updated as appropriate. Please note this office utilizes paper charting in addition to the electronic medical record. A list of current medications, vitals, and PMH is available there as the clinical staff outside of myself do not have access to [employer] charting during the clinic day operations. As part of providing quality comprehensive care the current medications, vitals, and PMH were reviewed in the paper chart. Assessment and Plan Assessment and Plan (1) Bilateral foot pain: Plan f/u PRN with Dr Thompson for evaluation
== END 2024-11-30 14:45 | disposition home or self-care (01) ==
LOC: PM 14:45
PROVIDERS: PCP Internal Medicine; Visit Provider Nurse Practitioner
DX: M79.672 Pain in left foot (principal); M79.671 Pain in right foot
CPT/HCPCS: G0463

== ENCOUNTER 2025-04-12 09:29 | Outpatient (OUT) | payer MEDICARE, MEDICAID, SELFPAY ==
--- OUTSIDE RECORDS SUMMARY | 2025-04-12 09:35 | XMS_ITS | Patient Health Record ---
Author Organization [facility] [place] Address [address] [place] [address] Care Team Providers Care Tool Shaper Setup Operator Name Role Phone None, Unknown or Primary Care Provider Unavailab le Allergies Allergen (clinical drug ingredient) Drug/Non Drug Allergy documented on EMR Reaction Allergy Type Onset Date Status Penicillin Unknown Drug Allergy Active Reason For Referral No Information Medications Medication SIG (Take, Route, Frequency, Duration) Notes Start Date End Date Status Carvedilol 12.5 MG TAKE 1 TABLET BY SYLVESTER TH TWICE DAILY WITH FOOD Oral; Duration: 90 Days Active CellCept Active amLODIPine Besylate 10 MG TAKE 1 TABLET BY MOUTH EVERY DAY Oral; Duration: 90 Days Active Pantoprazole Sodium 40 MG TAKE 1 TABLET BY MOUTH EVERY DAY ON AN EMPTY STOMACH Oral; Duration: 90 Days Active Sulfamethoxazole-Trimethopr im 800-160 MG Oral; Duration: 30 Days Act soo Magnesium Active Tacrolimus 1 MG Oral; Duration: 30 Days Active Ursodiol 300 MG TAKE 1 CAPSULE BY MO UTH THREE TIMES DAILY BEFORE MEALS Oral; Duration: 90 Days Active Social History Tobacco Use: Social History Observation Description Date Details (start date - stop date) Never Smoker NA - NA Tobacco Use/Smoking Question Answer Notes Patient is a nonsmoker Problems Problem Type SNOMED Code ICD Code Onset Dates Problem Status W/U Status Risk Notes Problem History of liver recipient ([id number]) Liver transplant status (Z94.4) Active confirmed Plan Of Treatment No Information Insurance Providers Payer Name Payer Address Payer Phone Subscriber Number Group Number Insured Name Patient Relationship to Insured Coverage Start Date Coverage End Date [place] [address] [place] [address] [id number] Chuckie Villalta Self - patient is the insured [place] 2[employer] INS [address] [place], [place] [id number] Chuckie Villalta Self - patient is the insured Medical (General) History Medical History History ICD Code hypertension liver disease liver transplant recipient Surgical History Surgery Date(Month/Year) liver rejection surgery 07/2019 vertabrae fusion 2020 liver transplant 07/11/2019 Hospitalization History Reason Date(Month/Year) see above
--- OUTSIDE RECORDS SUMMARY | 2025-04-12 09:35 | XMS_ITS | Clinical Summary ---
Author Organization [facility] Address [address] [place] [address] Phone Care Team Providers Care Home Administrator Name Role Phone Unavailable Primary Care Provider Unavailabl e Social History Tobacco Use Types Packs/Day Years Used Date Smoking Tobacco: Never Assessed Sex and Gender Information Value Date Recorded Sex Assigned at Not on file Legal Sex Male 2:54 PM EST Gender Identity Not on file Sexual Orientation Not on file Plan of Treatment Not on file
--- OUTSIDE RECORDS SUMMARY | 2025-04-12 09:35 | XMS_ITS | Encounter Summary ---
Author Organization [facility] Address [address] [place] [address] Phone Care Team Providers Care Hand Ii Thermal Cutter Name Role Phone Unavailable Primary Care Provider Unavailabl e Encounter Details Date Type Department Care Team (Late st Contact Info) Description 02/04/2018 Orders Only [facility] [address] [place] [address] Conversion, Onbase Social History Tobacco Use Types Packs/Day Years Used Date Smoking Tobacco: Never Assessed Sex and Gender Information Value Date Recorded Sex Assigned at Not on file Legal Sex Male 2:54 PM EST Gender Identity Not on file Sexual Orientation Not on file documented as of this encounter Plan of Treatment Scheduled Orders Name Type Priority Associated Diagnoses Orde r Schedule OUTSIDE LAB SCAN Lab Ordered: 02/04/2018 documented as of this encounter Visit Diagnoses Not on filedocumented in this encounter
--- OUTSIDE RECORDS SUMMARY | 2025-04-12 09:35 | XMS_ITS | Clinical Summary ---
Author Organization [facility] Address [address], [address] [place] [address] Care Team Providers Care Loan Workout Officer Name Role Phone Kehinde Guadarrama MD Primary Care Provider Allergies No known active allergies Medications Multiple Vitamins-Mineral s (MULTIVITAMIN PO) Take by mouth Active valsartan (DIOVAN) 320 MG tablet Take 1 tablet by mouth daily 30 tablet 5 07/17/2016 Active Active Problems No known active problems Family History Medical History Relation Name Comments Heart Disease Mother High Blood Pressure Mother High Cholesterol Mother Relation Name Status Comments Father Alive Mother Alive Social History Tobacco Use Types Packs/Day Years Used Date Smoking Tobacco: Never Alcohol Use Standard Drinks/Week Comments Yes 0 (1 standard drink = 0.6 oz pur e alcohol) Sex and Gender Information Value Date Recorded Sex Assigned at Not on file Legal Sex Male 9:58 AM EST Gender Identity Not on file Sexual Orientation Not on file Last Filed Vital Signs Vital Sign Reading Time Taken Comments Blood Pressure 140/82 07/17/2016 9:38 AM EST Pulse 99 07/17/2016 9:33 AM EST Temperature 36.9 C (98.4 F) 07/17/2016 9:33 AM EST Respiratory Rate 17 05/22/2016 9:07 AM EDT Oxygen Saturation 98% 07/17/2016 9:33 AM EST Inhaled Oxygen Concentration - - Weight 132.5 kg (292 lb) 07/17/2016 9:33 AM EST Height 185.4 cm (6' 1 ) 07/17/2016 9:33 AM EST Body Mass Index 38.52 07/17/2016 9:33 AM EST Plan of Treatment Not on file Care Teams Loan Workout Officer Relationship Specialty Start Date End Date Kehinde Guadarrama MD PCP - General Family Medicine 04/22/16
--- OUTSIDE RECORDS SUMMARY | 2025-04-12 09:41 | XMS_ITS | CCD ---
Author Organization [facility] CliniSyfl Care Team Providers Care Hospitalist Medical Director Name Role Phone DR LUIS ABDALLA Attending Unavailable RM, DR VAZQUEZ Consulting Unavailable RM, DR VAZQUEZ Primary Care Unavailable RM, DR VAZQUEZ Admitting Unavailable ALINA, DR ANGIE Winslow Consulting Luis Wan DO Primary Care Provider Angie Fernandes Jr. [...] ABDALLA Primary Care Unavailable ROSEMARIE SHEPARD Attending LUIS Wan Primary Care Physician [phone] Donna GIRON, Humerarius Saavedra Attending Unavailable Giedraitis , Andrius Vsheldon Attending Unavailable Giedraitis , Andrius Vytdelfino Attending Unavailable Giedraitis , Andrius Vytdelfino Attending Unavailable Giluizaraitis , Andrius Vytdelfino Attending Unavailable Donna GIRON, Andrius Keri Attending Unavailable LUIS ABDALLA Attending Unavailable LUIS ABDALLA Referring Unavailable Ralf Carbajal Attending Unavailable Luis Abdalla DO Primary Care Provider Luis Abdalla DO Attending Provider [phone] NICKOLAS MCCALLUM Referring Unavailable LUIS ABDALLA Primary Care Unavailable Allergies Allergy Classification Reported Allergen(s) Allergy Type Date of Onset Reaction(s) Facility Penicillins (antibiotic) (1 source) Penicillin Drug Allergy [facility] (20 sources) Midazolam; Translations: [MIDAZOLAM] Drug Allergy 1 Other: See Comments [facility] (9 sources) Penicillins; Translations: [PENICILLINS] Drug Allergy 4 Unknown, Swelling [facility] Work Phone: Comment on above: had skin test done b efore transplant (16 sources) Seasonal allergy; Translations: [SEASONAL ALLERGIES] Propensity to adverse reactions 8 Unknown [facility] (10 sources) Penicillins Drug Allergy Unknown [facility] Work Phone: (6 sources) penicillAMINE Drug Allergy 4 Unknown, Unknown Reaction [facility] (3 sources) Penicillin; Translations: [penicillin] Drug Allergy Urticaria (disorder) [facility] (1 source) Midazolam; Translations: [Versed] Drug Allergy [facility] Repository Medications Current Medications Medication Drug Class(es) Dates Sig (Normalized) Sig (Original) amLODIPine 10 mg oral tablet (20 sources) Dihydropyridine Calcium Channel Yazan Start: 11-18-2023 End: 11-28-2024 take 1 tablet by mouth once daily Amlodipine 10 mg tablet Active 0 .ROUTE .COMPLEX November 28, 2024 7:42am TAKE 1 TABLET BY MOUTH EVERY DAY Complies with drug therapy Start: 11-18-2023 take 1 tablet by sylvester th once daily Amlodipine Active 0 .ROUTE .COMPLEX November 18, 2023 2:35pm TAKE 1 TABLET BY MOUTH EVERY DAY Start: 10-13-2019 End: 11-18-2023 take 1 tablet by mouth once daily Amlodipine 10 mg tablet Discontinued 10 MG PO Daily February 18, 2021 12:00am November 18, 2023 2:35pm Comment on above: TAKE 1 TABLET BY SYLVESTER TH ONCE DAILY. carvedilol 25 mg oral tablet (20 sources) alpha-Adrenergic Yazan, beta-Adrenergic Yazan Start: 11-07-2024 End: 11-08-2024 take 1 tablet by mouth twice daily Carvedilol 25 mg tablet Active 25 MG PO Twice daily 180 90 November 08, 2024 7:48am Complies with drug therapy Start: 11-18-2023 End: 11-07-2024 take 1 tablet by mouth twice daily at mealtime Carvedilol 12.5 mg tablet Discontinued 0 .ROUTE .COMPLEX 180 November 18, 2023 2:35pm November 07, 2024 5:32pm TAKE 1 TABLET BY MOUTH TWICE DAILY WITH FOOD Start: 02-18-2021 End: 11-18-2023 take 1 tablet by mouth twice daily Carvedilol 12.5 mg tablet Discontinued 12.5 MG PO Twice daily February 18, 2021 12:00am November 18, 2023 2:35pm take 1 tablet by sylvester th every twelve hours Carvedilol 25 MG 1 tablet with food Oral Twice a day Active Comment on above: Take 1 tablet by sylvester th twice daily. cyclobenzaprine hydrochloride 10 mg oral tablet (3 sources) Muscle Relaxant Start: 2020 take 1 tablet by mouth three times daily as needed for muscle spasms Cyclobenzaprine 10 mg tablet Active 10 MG PO Three times daily as needed for back spasms 50 February 26, 2021 12:00am Complies with drug therapy 0.4 ml enoxaparin sodium 100 mg/ml prefilled syringe (4 sources) Low Molecular Weight Heparin Start: 2021 End: 2021 inject 40 mg by subcutaneous injection every twelve hours enoxaparin (LOVENOX) 40 mg/0.4 mL Inject 0.4 mL subcutaneously every 12 hours. 24 mL 2 11/04/2021 02/02/2022 Active Comment on above: Inject 0.4 mL subcut aneously every 12 hours. irbesartan 75 mg oral tablet (3 sources) Angiotensin 2 Receptor Yazan Start: 2020 take 1 tablet by mouth once daily at bedtime Irbesartan 75 mg tablet Active 75 MG PO Daily at bedtime February 18, 2021 12:00am Complies with drug therapy Multivitamin preparation (1 source) Start: 2020 take 1 tablet by mouth once daily Multivitamin Active 1 TAB PO Daily February 18, 2021 12:00am Multivitamin Tablet (2 sources) Start: 2020 take 1 tablet by mouth once daily Multivitamin Tablet Active 1 TAB PO Daily February 18, 2021 12:00am Complies with drug therapy Start: 02-18-2021 take 1 tablet by sylvester th once daily Multivitamin Tablet Active 1 TAB PO Daily February 17, 2021 11:00pm mupirocin 0.02 mg/mg topical ointment (2 sources) RNA Synthetase Inhibitor Antibacterial Start: 03-05-2023 Mupirocin 2 % 1 application Externally Twice a day for 10 days Feb, Active mycophenolate mofetil 250 mg oral capsule (3 sources) Start: 02-18-2021 take 2 capsules by mouth twice daily Mycophenolate Mofetil (Cellcept) 250 mg Capsule Active 500 MG PO Twice daily February 18, 2021 12:00am Complies with drug therapy ondansetron 4 mg oral tablet (1 source) Serotonin-3 Receptor Antagonist take 1 tablet by mouth every eight hours as needed for nausea Ondansetron HCl 4 MG 1 tablet Orally every 8 hours as needed for nausea for 30 days Active pantoprazole 40 mg delayed release oral tablet (19 sources) Proton Pump Inhibitor Start: 02-18-2021 take 1 tablet by mouth once daily Pantoprazole 40 mg Tablet,Delayed Release (Dr/Ec) Active 40 MG PO Daily February 18, 2021 12:00am Complies with drug therapy Comment on above: Take 1 tablet by sylvester th DAILY (6 AM). predniSONE 20 mg oral tablet (9 sources) Start: 01-26-2025 End: 02-02-2025 take 3 tablets by mouth once daily predniSONE 20 mg Tab 60 mg = 3 tab(s), Oral, Daily, X 7 day(s), # 21 tab(s), Refills(s) 0, Pharmacy: [id number], 113.4, cm, 01/26/25 11:00:00 EDT, Height/Length Dosing, 185.4, kg, 01/26/25 11:00:00 EDT, Weight Dosing Start Date: 01/26/25 Stop Date: 02/02/25 Status: Ordered Quantity: 21.0 Unit: tab(s) Repeat number: 1 Start: 02-29-2024 End: 02-16-2025 Prednisone 20 mg tablet Disc ontinued 20 MG PO As Directed September 02, 2024 1:00am February 16, 2025 7:25am 1 tab tid w/ food x 3 days, then bid w/ food x 3 days, then qd w/ food x 3 days Start: 02-26-2021 End: 02-16-2025 Prednisone 10 mg tablets,dos e pack Discontinued 1 dose pk PO per package directions February 26, 2021 12:00am February 16, 2025 7:24am take 4 tabs for 3 days then [...] 3 days tacrolimus 1 mg oral capsule (20 sources) Calcineurin Inhibitor Immunosuppressant Start: 05-05-2022 End: [...] PO Twice daily February 18, 2021 12:00am Complies with drug therapy Start: 02-18-2021 take 3 mg by mouth [...] twice daily. ursodiol 300 mg oral capsule (7 sources) Bile Acid Start: 02-18-2021 End: 12-04-2021 take 1 capsule by mouth three times daily Ursodiol 300 mg Capsule Active 300 MG PO Three times daily February 18, 2021 12:00am Complies with drug therapy Comment on above: Take 1 capsule by [...] Contrast as designated per enteric contrast guidelines gabapentin 100 mg oral capsule (5 sources) Anti-epileptic Agent Start: End: take 1 capsule by mouth three times daily Gabapentin 100 mg capsule Discontinued 0 .ROUTE .COMPLEX March 07, 2024 6:54am February 16, 2025 7:24am TAKE 1 CAPSULE BY MOUTH THREE TIMES DAILY FOR 10 DAYS Start: 02-29-2024 End: 03-07-2024 take 1 capsule by mouth three times daily Gabapentin 100 mg capsule Discontinued 100 MG PO Three times daily 30 February 29, 2024 12:00am March 07, 2024 6:54am iv contrast (will be provide d with radiology test) (13 sources) Start: 12-16-2021 iv contrast (w ill be [...] Take 1 tablet by sylvester twice daily. oxyCODONE hydrochloride 5 mg oral capsule (3 sources) Opioid Agonist Start: End: 025 take 5-10 mg by mouth every six hours as needed for pain Oxycodone 5 mg capsule Discontinued 5 - 10 MG PO Q6H as needed for pain 40 8 February 26, 2021 February 16, 2025 7:24am sulfamethoxazole 800 mg / trimethoprim 160 mg oral tablet (18 sources) Dihydrofolate Reductase Inhibitor Antibacterial, Sulfonamide Antimicrobial Start: take 1 tablet by mouth once sulfamethoxazole-tr imethoprim (BACTRIM DS,SEPTRA DS) 800-160 mg per tablet TAKE 1 TABLET BY MOUTH EVERY THURSDAY,THURSDAY,FR IDAY. 13 tablet 11 09/02/2021 Suspended Start: 02-18-2021 End: 02-17-2025 take 1 tablet by mouth three times weekly Sulfamethoxazole-Trimethoprim 800-160 mg tablet Discontinued 1 TAB PO 3 Times a week February 18, 2021 12:00am February 17, 2025 10:06am take 1 tablet by sylvester th every twenty-four hours Bactrim 400-80 MG 1 tablet Orally Once a day Not-Taking Comment on above: TAKE 1 TABLET BY SYLVESTER TH EVERY THURSDAY,THURSDAY,THURSDAY. tiZANidine 4 mg oral tablet (3 sources) Central alpha-2 Adrenergic Agonist Start: 2024 End: 2024 take 1 tablet by mouth once daily at bedtime as needed for muscle spasms Tizanidine 4 mg tablet Discontinued 0 .ROUTE .COMPLEX September 06, 2024 6:45pm February 17, 2025 10:07am TAKE 1 TABLET BY MOUTH DAILY AT BEDTIME FOR 7 DAYS NEEDED FOR MUSCLE SPASMS Start: 09-02-2024 End: 09-06-2024 take 1 tablet by mouth once daily at bedtime as needed Tizanidine 4 mg tablet Discontinued 4 MG PO Daily at bedtime as needed for muscle spasticity 7 September 02, 2024 1:00am September 06, 2024 6:45pm Problems Active Problems Problem Classification Problem Date Documented Da te Episodic/Chronic Acute and unspecified renal failure (18 sources) Acute injury of kidney; Translations: [Acute kidney failure, unspecified] Onset: 1 07-12-2021 Episodic Alcohol-related disorders (9 sources) Alcohol dependence; Translations: [Alcohol dependence, uncomplicated] Onset: 8 Chronic Biliary tract disease (1 source) Biliary stricture; 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 Coagulation and hemorrhagic disorders (5 sources) Thrombocytopenic disorder; Translations: [Thrombocytopenia, unspecified] Onset: 8 Chronic Complication of device; implant or graft (18 sources) Acute rejection of liver transplant; Translations: [...] severe protein-calorie malnutrition] Onset: 8 2021 Chronic Osteoarthritis (2 sources) 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; Translations: [Post-traumatic osteoarthritis, left ankle and foot] 02-16-2025 Chronic Other connective tissue disease (1 source) Foot pain; Translations: [Pain in right foot] 02-29-2024 Episodic Other liver diseases (3 sources) Disease of liver; Translations: [Liver disease, unspecified] Chronic Other liver diseases (3 sources) Steatosis of liver; Translations: [Fatty (change of) liver, not elsewhere classified] Chronic Other liver diseases (3 sources) Transplanted liver present; Translations: [Liver transplant status] Chronic Other liver diseases (3 sources) Liver transplant status; Translations: [Liver replaced by transplant (HCC)] Onset: 5 Chronic Other liver diseases (4 sources) Jaundice; [...] source) Obesity; Translations: [Obesity, unspecified] Chronic Other skin disorders (2 sources) Vesicular [...] Spondylosis; intervertebral disc disorders; other back problems (17 sources) Other spondylosis with radiculopathy, cervical region; Translations: [Other spondylosis with myelopathy, cervical region] Onset: 1 Chronic Spondylosis; intervertebral disc disorders; other back problems (4 sources) Thoracic back pain; Translations: [Dorsalgia, unspecified] Onset: 5 09-01-2024 Episodic Sprains and strains (2 sources) [...] from nose; Translations: [Epistaxis] Onset: 11-26-2017 Episodic Results Test Name Value Interpretation Reference Range Facility CBC W Auto Differential pane l (Bld)on 03-09-2025 Basophils (Bld) [#/Vol] 0.03 10*3/uL Normal <0.11 [facility] Comment on above: Order Comment: Speci men Type: BLOOD SPECIMEN Ordering Facility: [facility] Address: [address] [place] [address] Performed By: #### 5 7021-8 #### [facility] CLIA [id number] [address] [place] [address] [place] Basophils/100 WBC (Bld) 0.3 % Normal [facility] Comment on above: Order Comment: Speci men Type: BLOOD SPECIMEN Ordering Facility: [facility] Address: [address] [place] [address] Performed By: #### 5 7021-8 #### [facility] CLIA [id number] [address] [place] [address] [place] Differential cell count method Nom (Bld) Auto Normal [facility] Comment on above: Order Comment: Speci men Type: BLOOD SPECIMEN Ordering Facility: [facility] Address: [address] [place] [address] Performed By: #### 5 7021-8 #### [facility] CLIA [id number] [address] [place] [address] [place] Eosinophils (Bld) [#/Vol] 0.18 10*3/uL Normal <0.46 [facility] Comment on above: Order Comment: Speci men Type: BLOOD SPECIMEN Ordering Facility: [facility] Address: [address] [place] [address] Performed By: #### 5 7021-8 #### [facility] CLIA [id number] [address] [place] [address] [place] Eosinophils/100 WBC (Bld) 2.0 % Normal [facility] Comment on above: Order Comment: Speci men Type: BLOOD SPECIMEN Ordering Facility: [facility] Address: [address] [place] [address] Performed By: #### 5 7021-8 #### [facility] CLIA [id number] [address] [place] [address] [place] Erythrocyte distribution width (RBC) [Ratio] 14.7 % Normal 11.5-15.0 [facility] Comment on above: Order Comment: Speci men Type: BLOOD SPECIMEN Ordering Facility: [facility] Address: [address] [place] [address] Performed By: #### 5 7021-8 #### [facility] CLIA [id number] [address] [place] [address] [place] Hematocrit (Bld) [Volume fraction] 41.3 % Normal 39.0-51.0 [facility] Comment on above: Order Comment: Speci men Type: BLOOD SPECIMEN Ordering Facility: [facility] Address: [address] [place] [address] Performed By: #### 5 7021-8 #### [facility] CLIA [id number] [address] [place] [address] [place] Hemoglobin (Bld) [Mass/Vol] 14.3 g/dL Normal 13.0-17.0 [facility] Comment on above: Order Comment: Speci men Type: BLOOD SPECIMEN Ordering Facility: [facility] Address: [address] [place] [address] Performed By: #### 5 7021-8 #### [facility] CLIA [id number] [address] [place] [address] [place] Immature granulocytes (Bld) [#/Vol] 0.08 10*3/uL Normal <0.10 [facility] Comment on above: Order Comment: Speci men Type: BLOOD SPECIMEN Ordering Facility: [facility] Address: [address] [place] [address] Performed By: #### 5 7021-8 #### [facility] CLIA [id number] [address] [place] [address] [place] Immature granulocytes/100 WBC (Bld) 0.9 % Normal [facility] Comment on above: Order Comment: Speci men Type: BLOOD SPECIMEN Ordering Facility: [facility] Address: [address] [place] [address] Performed By: #### 5 7021-8 #### [facility] CLIA [id number] [address] [place] [address] [place] Lymphocytes (Bld) [#/Vol] 0.89 10*3/uL Low 1.00-4.00 [facility] Comment on above: Order Comment: Speci men Type: BLOOD SPECIMEN Ordering Facility: [facility] Address: [address] [place] [address] Performed By: #### 5 7021-8 #### [facility] CLIA [id number] [address] [place] [address] [place] Lymphocytes/100 WBC (Bld) 9.8 % Normal [facility] Comment on above: Order Comment: Speci men Type: BLOOD SPECIMEN Ordering Facility: [facility] Address: [address] [place] [address] Performed By: #### 5 7021-8 #### [facility] CLIA [id number] [address] [place] [address] [place] MCH (RBC) [Entitic mass] 29.7 pg Normal 26.0-34.0 [facility] Comment on above: Order Comment: Speci men Type: BLOOD SPECIMEN Ordering Facility: [facility] Address: [address] [place] [address] Performed By: #### 5 7021-8 #### [facility] CLIA [id number] [address] [place] [address] [place] MCHC (RBC) [Mass/Vol] 34.6 g/dL Normal 30.5-36.0 [facility] Comment on above: Order Comment: Speci men Type: BLOOD SPECIMEN Ordering Facility: [facility] Address: [address] [place] [address] Performed By: #### 5 7021-8 #### [facility] CLIA [id number] [address] [place] [address] [place] MCV (RBC) [Entitic vol] 85.9 fL Normal 80.0-100.0 [facility] Comment on above: Order Comment: Speci men Type: BLOOD SPECIMEN Ordering Facility: [facility] Address: [address] [place] [address] Performed By: #### 5 7021-8 #### [facility] CLIA [id number] [address] [place] [address] [place] Monocytes (Bld) [#/Vol] 0.85 10*3/uL Normal <0.87 [facility] Comment on above: Order Comment: Speci men Type: BLOOD SPECIMEN Ordering Facility: [facility] Address: [address] [place] [address] Performed By: #### 5 7021-8 #### [facility] CLIA [id number] [address] [place] [address] [place] Monocytes/100 WBC (Bld) 9.3 % Normal [facility] Comment on above: Order Comment: Speci men Type: BLOOD SPECIMEN Ordering Facility: [facility] Address: [address] [place] [address] Performed By: #### 5 7021-8 #### [facility] CLIA [id number] [address] [place] [address] [place] Neutrophils (Bld) [#/Vol] 7.09 10*3/uL Normal 1.45-7.50 [facility] Comment on above: Order Comment: Speci men Type: BLOOD SPECIMEN Ordering Facility: [facility] Address: [address] [place] [address] Performed By: #### 5 7021-8 #### [facility] CLIA [id number] [address] [place] [address] [place] Neutrophils/100 WBC (Bld) 77.7 % Normal [facility] Comment on above: Order Comment: Speci men Type: BLOOD SPECIMEN Ordering Facility: [facility] Address: [address] [place] [address] Performed By: #### 5 7021-8 #### [facility] CLIA [id number] [address] [place] [address] [place] Nucleated RBC (Bld) [#/Vol] 10*3/uL Normal <0.01 [facility] Comment on above: Order Comment: Speci men Type: BLOOD SPECIMEN Ordering Facility: [facility] Address: [address] [place] [address] Performed By: #### 5 7021-8 #### [facility] CLIA [id number] [address] [place] [address] [place] Nucleated RBC/100 WBC (Bld) [Ratio] 0.0 /100 WBC Normal [facility] Comment on above: Order Comment: Speci men Type: BLOOD SPECIMEN Ordering Facility: [facility] Address: [address] [place] [address] Performed By: #### 5 7021-8 #### [facility] CLIA [id number] [address] [place] [address] [place] Platelet mean volume (Bld) [Entitic vol] 13.3 fL High 9.0-12.7 [facility] Comment on above: Order Comment: Speci men Type: BLOOD SPECIMEN Ordering Facility: [facility] Address: [address] [place] [address] Performed By: #### 5 7021-8 #### [facility] CLIA [id number] [address] [place] [address] [place] Platelets (Bld) [#/Vol] 117 10*3/uL Low 150-400 [facility] Comment on above: Order Comment: Speci men Type: BLOOD SPECIMEN Ordering Facility: [facility] Address: [address] [place] [address] Performed By: #### 5 7021-8 #### [facility] CLIA [id number] [address] [place] [address] [place] RBC (Bld) [#/Vol] 4.81 10*6/uL Normal 4.20-6.00 [facility] Comment on above: Order Comment: Speci men Type: BLOOD SPECIMEN Ordering Facility: [facility] Address: [address] [place] [address] Performed By: #### 5 7021-8 #### [facility] CLIA [id number] [address] [place] [address] [place] WBC (Bld) [#/Vol] 9.12 10*3/uL Normal 3.70-11.00 [facility] Comment on above: Order Comment: Speci men Type: BLOOD SPECIMEN Ordering Facility: [facility] Address: [address] [place] [address] Performed By: #### 5 7021-8 #### [facility] CLIA [id number] [address] [place], [place] [id number] [place] Comprehensive metabolic 2000 panelon 03-09-2025 Albumin [Mass/Vol] 4.4 g/dL Normal 3.9-4.9 [facility] Comment on above: Order Comment: Speci men Type: BLOOD SPECIMEN Ordering Facility: [facility] Address: [address] [place] [address] Performed By: #### 2 4323-8, 2777- #### [facility] CLIA [id number] [address] [place] [address] [place] ALP [Catalytic activity/Vol] 80 U/L Normal 38-113 [facility] Comment on above: Order Comment: Speci men Type: BLOOD SPECIMEN Ordering Facility: [facility] Address: [address] [place] [address] Performed By: #### 2 4323-8, 277- #### [facility] CLIA [id number] [address] [place] [address] [place] ALT [Catalytic activity/Vol] 22 U/L Normal 10-54 [facility] Comment on above: Order Comment: Speci men Type: BLOOD SPECIMEN Ordering Facility: [facility] Address: [address] [place] [address] Performed By: #### 2 4323-8, 2777- #### [facility] CLIA [id number] [address] [place] [address] [place] Anion gap [Moles/Vol] 11 mmol/L Normal 8-15 [facility] Comment on above: Order Comment: Speci men Type: BLOOD SPECIMEN Ordering Facility: [facility] Address: [address] [place] [address] Performed By: #### 2 4323-8, 2777- #### [facility] CLIA [id number] [address] [place] [address] [place] AST [Catalytic activity/Vol] 20 U/L Normal 14-40 [facility] Comment on above: Order Comment: Speci men Type: BLOOD SPECIMEN Ordering Facility: [facility] Address: [address] [place] [address] Performed By: #### 2 4323-8, 2776-07 #### [facility] CLIA [id number] [address] [place] [address] [place] Bilirubin [Mass/Vol] 1.4 mg/dL High 0.2-1.3 [facility] Comment on above: Order Comment: Speci men Type: BLOOD SPECIMEN Ordering Facility: [facility] Address: [address] [place] [address] Performed By: #### 2 4323-8, 2776-07 #### [facility] CLIA [id number] [address] [place] [address] [place] Calcium [Mass/Vol] 9.8 mg/dL Normal 8.5-10.2 [facility] Comment on above: Order Comment: Speci men Type: BLOOD SPECIMEN Ordering Facility: [facility] Address: [address] [place] [address] Performed By: #### 2 4323-8, 2776-07 #### [facility] CLIA [id number] [address] [place] [address] [place] Chloride [Moles/Vol] 100 mmol/L Normal 98-107 [facility] Comment on above: Order Comment: Speci men Type: BLOOD SPECIMEN Ordering Facility: [facility] Address: [address] [place] [address] Performed By: #### 2 4323-8, 27701-24 #### [facility] CLIA [id number] [address] [place] [address] [place] CO2 [Moles/Vol] 23 mmol/L Normal 22-30 [facility] Comment on above: Order Comment: Speci men Type: BLOOD SPECIMEN Ordering Facility: [facility] Address: [address] [place] [address] Performed By: #### 2 4323-8, 277-1 #### [facility] CLIA [id number] [address] [place] [address] [place] Creatinine [Mass/Vol] 1.11 mg/dL Normal 0.73-1.22 [facility] Comment on above: Order Comment: Noe madrid Type: BLOOD SPECIMEN Ordering Facility: [facility] Address: [address] [place] [address] Performed By: #### 2 4323-8, 277- #### [facility] CLIA [id number] [address] [place] [address] [place] eGFRcr SerPlBld CKD-EPI 2020 87 mL/min/1.73m??? Normal >=60 [facility] Comment on above: Order Comment: Noe madrid Type: BLOOD SPECIMEN Ordering Facility: [facility] Address: [address] [place] [address] Result Comment: Brenda mated Glomerular Filtration Rate [...] actual GFR. Performed By: #### 2 4323-8, 277- #### [facility] CLIA [id number] [address] [place] [address] [place] Glucose [Mass/Vol] 248 mg/dL High 74-99 [facility] Comment on above: Order Comment: Noe madrid Type: BLOOD SPECIMEN Ordering Facility: [facility] Address: [address] [place] [address] Result Comment: The [place] Diabetes Association (ADA) provides guidance for cutoff [...] Standards of Medical Care in Diabetes 2016, [place] Diabetes Association. Diabetes Care. 2016.39(Suppl 1). Performed By: #### 2 4323-8, 2776-07 #### [facility] CLIA [id number] [address] [place] [address] [place] Potassium [Moles/Vol] 4.5 mmol/L Normal 3.7-5.1 [facility] Comment on above: Order Comment: Speci men Type: BLOOD SPECIMEN Ordering Facility: [facility] Address: [address] [place] [address] Performed By: #### 2 4323-8, 2776-07 #### [facility] CLIA [id number] [address] [place] [address] [place] Protein [Mass/Vol] 7.4 g/dL Normal 6.3-8.0 [facility] Comment on above: Order Comment: Louiei mercy Type: BLOOD SPECIMEN Ordering Facility: [facility] Address: [address] [place] [address] Performed By: #### 2 4323-8, 2776-07 #### [facility] CLIA [id number] [address] [place], [place] [id number] [place] Sodium [Moles/Vol] 134 mmol/L Low 136-144 [facility] Comment on above: Order Comment: Speci men Type: BLOOD SPECIMEN Ordering Facility: [facility] Address: [address] [place] [address] Performed By: #### 2 4323-8, 27701-24 #### [facility] CLIA [id number] [address] [place], [place] [address] [place] Urea nitrogen [Mass/Vol] 22 mg/dL Normal 9-24 [facility] Comment on above: Order Comment: Noe madrid Type: BLOOD SPECIMEN Ordering Facility: [facility] Address: [address] [place] [address] Performed By: #### 2 4323-8, 2777-1 #### [facility] CLIA [id number] [address] [place] [address] [place] Phosphate SerPl-[facility] 03-09 Phosphate [Mass/Vol] 3.3 mg/dL Normal 2.7-4.8 [facility] Comment on above: Order Comment: Noe madrid Type: BLOOD SPECIMEN Ordering Facility: [facility] Address: [address] [place] [address] Performed By: #### 2 4323-8, 2777-1 #### [facility] CLIA [id number] [address] [place] [address] [place] Tacrolimus Bld-[facility] 2024 Tacrolimus (Bld) [Mass/Vol] 8.4 ng/mL Normal 5.0-20.0 [facility] Comment on above: Order Comment: Noe madrid Type: BLOOD SPECIMEN Ordering Facility: [facility] Address: [address] [place] [address] Result Comment: Nannette vidualized target levels for [...] Alinity i. Performed By: #### 1 1253-2 #### [facility] CLIA [id number] [address] [place] [address] [place] CNPNon 02-21-2025 CNPN Telephone (TXCTMN) CHUCKIE VILLALTA ([id number]) 1985 M Date Time Provider Department 02/21/25 NADJA SPENCER TXCTMN During your visit today, we recorded the following information about you: Nadja Spencer, RN 02/21/2025 11:10 AM Signed I called and spoke with patient about having lab work drawn, as last lab work was done in August of 2022. He states that he has been doing very well, and did not realize it had been that long since he'd had labs drawn. He is agreeable to having a new set of labs completed, and was made aware of his standing lab orders. He is also agreeable to a virtual visit with senior care hepatology once he has lab work drawn. 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 He is on vacation this week, so plans to have lab work drawn next week. Nadja Spencer (Cassie) RN, BSN, [facility] Liver Boiler Tester Allergies As of Date: 02/21/2025 Noted Allergy Reaction PENICILLINS 16 - Unknown Comments: Skin test positive 09/01/18 MIDAZOLAM 02/18/2021 14 - Other: See Comments SEASONAL ALLERGIES 06/29/2018 16 - Unknown Date Reviewed: 03/19/2023 Reviewed by: Blanca Kulkarni, RN - Fully Assessed Reason for Visit: Follow Up [171] Prescriptions as of 02/21/2025 - tacrolimus IR (PROGRAF) 1 mg capsule [...] ONCE DAILY. Problem List As Of Date 02/21/2025 Noted Resolved Hemochromatosis [E83.119] 03/18/2018 Cellulitis [L03.90] 07/13/2018 Obesity, Class I, BMI 30-34.9 [E66.811] 07/14/2018 Severe protein-calorie malnutrition (HCC) [E43] 07/14/2018 [...] without infection or necrosi*09/01/2022 Encounter Status:Closed by NADJA SPENCER on 02/21/25 Normal [facility] Nonvisit Note - PTon 025 Nonvisit Note - PT Nonvisit Note - PT Pt no showed for 929 appointment. Normal [facility] ED Clinical Summaryon 2024 ED Clinical Summary ED Clinical Summary [address] [address] ED Clinical Summary Person Information Name: CHUCKIE VILLALTA [facility] Age: 39 Years : 1985 Sex: Male Language: Swedish PCP: LUIS ABDALLA DO Marital Status: Phone: [phone] Visit Id: Visit Reason: Leg pain-swelling; Back pain; BACK PAIN Speciality: Acuity: 4 Enc Type: Emergency Med Service: Emergency Arrival: 01/26/2025 10:49:31 Discharge: 01/26/2025 11:40:51 LOS: 000 00:51 Checkin: 01/26/2025 10:49:31 Checkout: 01/26/2025 11:40:51 Dispo Type: Home (Routine DC) EVENTS: Event Name Event Status Request Date/Time Start Date/Time Complete Date/Time Arrive Complete 01/26/2025 10:49:31 01/26/2025 10:49:31 01/26/2025 10:49:31 Document Home Meds Request 01/26/2025 10:49:31 Triage Complete 01/26/2025 10:49:31 01/26/2025 11:00:13 01/26/2025 11:00:13 Bed Assign Complete 01/26/2025 10:53:04 01/26/2025 10:53:04 01/26/2025 10:53:04 Dr Exam Complete 01/26/2025 10:53:04 01/26/2025 10:56:16 01/26/2025 10:56:16 RN Exam Complete 01/26/2025 10:53:04 01/26/2025 11:02:12 01/26/2025 11:02:12 Registration Complete 01/26/2025 10:53:55 01/26/2025 10:53:55 01/26/2025 10:53:55 Reg Complete Request 01/26/2025 10:53:55 Reg Bed Request Complete 01/26/2025 10:53:55 01/26/2025 10:53:55 01/26/2025 10:53:55 Registration Request 01/26/2025 10:56:16 Dr Exam Complete 01/26/2025 10:57:38 01/26/2025 10:57:38 01/26/2025 10:57:38 X-Ray Complete 01/26/2025 11:05:28 01/26/2025 11:09:44 01/26/2025 11:21:27 Meds Admin Cancel 01/26/2025 11:05:28 01/26/2025 11:08:14 Wet Read Request 01/26/2025 11:21:27 Discharge Complete 01/26/2025 11:34:28 01/26/2025 11:40:59 01/26/2025 11:40:59 Transfer Complete 01/26/2025 11:40:59 01/26/2025 11:40:59 01/26/2025 11:40:59 ADDRESS: [address] [place] [phone] PHYS DOC NOTES: MEDICAL INFORMATION: Prescriptions Given: New Medications [id number], [address] [place], [place] [id number], [phone] predniSONE (predniSONE 20 mg Tab) 3 Tablets By Mouth every day for 7 Days. Refills: 0. PATIENT EDUCATION INFORMATION: Instructions: Acute Back Pain, Adult Follow up: With: Address: When: LUIS RM [address] [facility] [place] [address] Business (1) In 3 days 01/29/2025 DIAGNOSIS: Back pain Normal [facility] ED Note-Physicianon 01-27-20 ED Note-Physician ED Note-Physician Basic Information Time Seen: John TODDReynaldo 01/26/2025 10:56 Chief Complaint pt presents with right lower back pain that radiates down the leg when stepping that started Thursday. denies any injury. denies bowel or bladder issues. liver trasnplant in 2019 and unable to have motrin or tylenol. History of Present Illness 39-year-old male comes to the ED for evaluation of back pain. He presents complaining of right-sided back pain that started a couple of days ago. No precipitating trauma. Complains of pain to the right side of back that radiates to the right leg. No associated paresthesias or saddle anesthesia. No lower extremity weakness. No bowel or bladder incontinence or retention. No dysuria or hematuria. No associated abdominal pain, nausea, vomiting, fever or chills. No prior treatments. Does have a history of degenerative disc disease but has never had problems with lumbar spine. Except previous cervical fusion. Review of Systems A 10 point review of systems is negative except as noted above. Medical and Surgical History: Reviewed and noted Social history: Lives at home Tobacco: Denies Physical Exam Vitals & Measurements T: 36.8 ???C(Oral) HR: 101(Peripheral) RR: 16 BP: 133/87 SpO2: 98% HT: 185 cm WT: 113.4 kg BMI: 33.13 Nurses notes and vital signs reviewed and patient is not hypoxic. General: The patient appears well, resting comfortably. Skin: Warm, dry. Head: Atraumatic. Neck: No JVD. Eye: Normal conjunctiva. Ears, Nose, Mouth, and Throat: Moist mucous membranes. Cardiovascular: Strong distal pulses. Chest wall: Respiratory: Respirations are nonlabored. Back: Tenderness over the right lumbar region. No bony instability or step-offs. No swelling, ecchymosis or erythema. No area of point tenderness. Full range of motion. No evidence of lower extremity neurovascular compromise. No CVA tenderness noted bilaterally. Musculoskeletal: Normal ROM with no gross deformity. Patient able to ambulate without any significant difficulty. Gastrointestinal: Soft and nontender. Urological: Neurological: Awake and alert. No focal deficits. Follows commands. Psychiatric: Cooperative. Medical Decision Making X-ray of no acute abnormality. Exam is consistent with muscular back pain, likely sciatica. This is discussed with him. He is neurologically intact on exam. Treatment options are discussed. He was a history of liver disease with chronic thrombocytopenia and must avoid NSAIDs. He is in pain management currently as well. Wants to avoid narcotics and muscle relaxers. Already has lidocaine topical at home. Ultimately he is requesting a course of steroids and this is provided. He is discharged to follow-up with his PCP and pain physician. Patient was encouraged to return to the ED if symptoms worsen or change. Assessment/Plan Back pain (M54.9: Dorsalgia, unspecified) Orders: predniSONE, 60 mg = 3 tab(s), Oral, Daily, X 7 day(s), # 21 tab(s), Refills(s) 0, Pharmacy: [id number], 113.4, cm, 01/26/25 11:00:00 EDT, Height/Length Dosing, 185.4, kg, 01/26/25 11:00:00 EDT, Weight Dosing XR Spine Lumbosacral 2 or 3 Views Disposition Plan Patient Discharge Condition Disposition: Discharged home Condition: Improved and stable Counseled: Patient and/or family were counseled to workup, results, treatment plan and follow-up recommendations Discharge Prescription List Prescriptions predniSONE 20 mg Tab, 60 mg= 3 tab(s), Oral, Daily Follow-up With When Contact Information LUIS ABDALLA In 3 days 01/29/2025 EDT [address] [id number] [facility] (1) Additional Instructions: Patient Education Acute Back Pain, Adult Attestation I performed a substantive part of the MDM during the patient???s E/M visit. I personally made or approved the documented management plan and acknowledge its risk of complications. (Independent Interpretation) My (EKG/X-Ray/US/CT) interpretation as above. (Discussion) Management/test interpretation discussed with APC. This report was transcribed using voice recognition software. Every effort was made to ensure accuracy, however, inadvertently computerized remote coders mistakes may be present. Appropriate healthcare PPE was used in evaluating this patient. Problem List/Past Medical History Ongoing No qualifying data Historical No qualifying data Medications Inpatient No active inpatient medications Home predniSONE 20 mg Tab, 60 mg= 3 tab(s), Oral, Daily Allergies Versed (Nausea) penicillin (Hives) Social History Alcohol Substance Abuse Lab Results No qualifying data available. Diagnostic Results No qualifying data available. Normal [facility] Comment on above: Result Comment: Elec tronically Signed By: Reynaldo Lopez PA-C\.br\Date and Time Signed: 01/26/25 12:05 EDT\.br\Electronically Co-Signed By: Ralf Carbajal DO\.br\Date and Time Co-Signed: 01/26/25 18:06 EDT ED Patient Summaryon 025 ED Patient Summary ED Patient Summary [address] [address] Patient Discharge Instructions Person Information Name: CHUCKIE VILLALTA Age: 39 Years Arrival Date: 01/26/2025 10:49:31 Discharge Diagnosis: Back pain Primary Care Physician: LUIS ABDALLA DO Provider Information Primary Provider: Ralf Carbajal DO Advanced Early Childhood Education Specialist:Reynaldo Lopez PA-C The exam and treatment you received in the Emergency Department were for an urgent problem and are not intended as complete care. It is important that you follow up with a doctor, nurse practitioner, or physician???s medical assistant cardiology for ongoing care. If your symptoms become worse or you do not improve as expected and you are unable to reach your usual health care provider, you should return to the Emergency Department. We are available 24 hours a day. CHUCKIE VILLALTA has been given the following list of patient education materials, prescriptions and follow-up instructions: Follow-up Instructions: With: Address: When: LUIS ABDALLA [address] [place], [place] [address] [facility] (1) In 3 days 01/29/2025 In the event that this physician does not participate in your insurance network, please consult with your insurance company to find a nearby participating provider. Patient Education Materials: Acute Back Pain, Adult A MESSAGE TO ALL PATIENTS REGARDING OPIOIDS PRESCRIPTION OPIOIDS: WHAT YOU NEED TO KNOW Prescription opioids can be used to help relieve jlbhwilo-bd-jyxdjl pain and are often prescribed following a [...] as well, even when taken as directed: ??? Tolerance???meaning you might need to take more of the medication for the same pain relief ??? Physical dependence???meaning you have symptoms of withdrawal when a medication is stopped ??? Increased sensitivity to pain ??? Constipation ??? Nausea, vomiting, and dry mouth ??? Sleepiness and dizziness ??? Confusion ??? Depression ??? Low levels of testosterone that can result in lower sex drive, energy, and strength ??? Itching and sweating RISKS ARE GREATER WITH: ??? History of drug misuse, substance use disorder, or overdose ??? Mental health conditions (such as depression or anxiety) ??? Sleep apnea ??? Older age (65 years and older) ??? Avoid alcohol while taking prescription opioids. Also, unless specifically advised by your health care provider, medications to avoid include: ??? Benzodiazepines (such as Xanax or Valium) ??? Muscle relaxants (such as Soma or Flexeril) ??? Hypnotics (such as Ambien or Lunesta) ??? Other prescription opioids KNOW YOUR OPTIONS Talk to your health care provider about ways to manage your pain that don???t involve prescription opioids. Some of these options may actually work better and have fewer risks and side effects. Options may include: ??? Pain relievers such as acetaminophen, ibuprofen, and naproxen ??? Some medication that are also used for depression or seizures ??? Physical therapy and exercise ??? Cognitive behavioral therapy, a psychological, goal-directed approach, in which patients learn how to modify physical, behavioral, and emotional triggers of pain and stress. IF YOU ARE PRESCRIBED OPIOIDS FOR PAIN: ??? Never take opioids in greater amounts or more often than prescribed. ??? Follow up with your primary health care provider. o Work together to create a plan on how to manage your pain. o Talk about ways to help manage your pain that don???t involve prescription opioids. o Talk about any and all concerns and side effects. ??? Help prevent misuse and abuse o Never sell or share prescription opioids. o Never use another person???s prescription opioids. ??? Store prescription opioids in a secure place and out of reach of others (this may include visitors, children, friends, and family). ??? Safely dispose of unused prescription opioids: Find your community drug take-back program or your pharmacy mail-back program, or flush them down the toilet, following guidance from the Food and Drug Administration (www.fda.gov/Drugs/Reso urcesForYou). ??? Visit www.cdc.gov/drugoverdos e to learn about the risks of opioids abuse and overdose. ??? If you believe you may be struggling with addiction, tell your health mall plant caretaker and ask for vani (more content not included)... [facility] Nonvisit Note - PTon 025 Nonvisit Note - PT Nonvisit Note - PT Pt called to cancel his OP physical therapy session today 01/26/25 due to hurting his back, therefore needing to cancel his appointment. Martita Almazan, SULFIDE HEAD OPERATOR 01/26/25 [facility] XR Spine Lumbosacral 2 or 3 Viewson 01-26-2025 XR Spine Lumbosacral 2 or 3 Views Exam Date/Time: 01/26/2025 11:21 EDT Reason for Exam: Pain, Non Traumatic Report IMPRESSION: NEGATIVE LUMBOSACRAL SPINE SERIES. CLINICAL HISTORY: Pain, Non Traumatic COMPARISON: NONE 3 use of the lumbosacral spine demonstrate no evidence of a fracture, subluxation, bone or joint abnormality. Ordering Provider: Reynaldo Lopez FINAL REPORT Dictated: 01/26/2025 11:55 am Luis Carrasco MD Signed (Electronic Signature): 01/26/2025 11:55 am Signed by: Luis Carrasco MD Transcribed by: DAVID Technologist: [facility] Fibrin D-dimer [Presence] in Platelet poor plasma by Latex agglutinationon 08-20-2024 Fibrin D-dimer LA Ql (PPP) Fibrin D-dimer [Presence] in Platelet poor plasma by Latex agglutination <=0.59 [facility] Comment on above: Increases in D-Dimer [...] diabetes, thrombolyticor anticoagulant therapy, stress, and generalizedhospitalization. Rey [facility] CHUCKIE VILLALTA ([id number]) 1985 M [facility] Date Time Provider Department 11/04/22 [facility] [place] your visit today, we recorded the following information about you: SHAQ Price 11/04/2022 11:06 AM Signed DEONDRE attempted to contact the patient to discuss the [facility] clinic. DEONDRE left a VM and [...] Fully Assessed Reason for Visit: Care Coordination [1818] Cmt: [facility] clinic Prescriptions as of 11/04/2022 - [...] Encounter Status:Closed by MIMI [facility] on 11/04/22 [facility] FLUORO ERCP (POC) FOR DDI E ONLYon 09-04-2022 [facility] CNOVon 02-25-2022 CNOV Office Visit (PSCHL) CHUCKIE VILLALTA ([id number]) 1985 [facility] Date Time Provider Department 02/25/22 9:00 AM ROSEMARIE SHEPARD During your visit today, we recorded the following information about you: SHAQ Chua 02/25/2022 10:46 AM Signed [facility] Assessment Visit Type:Virtual Visit utilizing two-way audio and video for at least a portion of the visit IDENTIFYING INFORMATION: [phone] Lives with of nine years, Екатерина and [...] consented to virtual evaluation. Patient and this life underwriter present during interview. PRECIPITATING PROBLEM(S):Patient was dx with liver disease in 2017. Completed an IOP at [facility] in summer 2018, and received liver [...] Age 16, every other weekend. Went to [employer] for college drank heavily on weekends, then [...] was intend (more content not included)... Normal [facility] [place] ABDOMEN W IVCONon 022 [facility] Basic Metabolic Panlon 07-12 Anion gap [Moles/Vol] 8 mmol/L Low 9-18 [facility] Calcium [Mass/Vol] 8.6 mg/dL Normal 8.5-10.2 [facility] Chloride [Moles/Vol] 103 mmol/L Normal 97-105 [facility] CO2 [Moles/Vol] 24 mmol/L Normal 22-30 [facility] Creatinine [Mass/Vol] 2.67 mg/dL High 0.73-1.22 [facility] eGFR- Amer. 33 Normal [facility] eGFR-All Other Races 27 . Normal [facility] Comment on above: Result [...] [email or web address]. Glucose [Mass/Vol] 113 mg/dL High 74-99 [facility] Comment on above: Result Comment: The [place] Diabetes Association (ADA) provides guidance for cutoff [...] Standards of Medical Care in Diabetes 2016, [place] Diabetes Association. Diabetes Care. 2016.39(Suppl 1). Potassium [Moles/Vol] 3.3 mmol/L Low 3.7-5.1 [facility] Sodium [Moles/Vol] 135 mmol/L Low 136-144 [facility] Urea nitrogen [Mass/Vol] 11 mg/dL Normal 9-24 [facility] CASE MANAGEMon 07-12-2021 CASE MANAGEM HNO ID: [id number] Author: Nanette Dangelo RN Service: ? Author [...] 12, 2021 TIME: 4:48 PM [facility] HNO ID: [id number] Author: [place] MD Service: Hospital Medicine [...] the summary. TRANSITIONS OF CARE CRITICAL ISSUES: SIDDIQI MEDICATION CHANGES: N/A No new medications added [...] GI team who initially recommended ERCP at [facility] but at this time planning to pursue [...] 1.3. He was seen by infectious disease building energy consultant today who recommended adding G6PD to [...] You were also seen by pain management information systems director while you are in the hospital. I have not added any pain medications due to near complete resolution of symptoms. You were seen by neurologist recently for the patient's symptoms. They will follow up as an outpatient also. Please follow-up with primary MD in 1 week Follow-up with transplant team at the earliest available appointment-craft coordinator has promised to set up an [...] Pain Management Consult CONSULT TO PAIN MANAGEMENT (LENCHO,DARIANA,MAIA,FV,KEEGAN,MM,SP) CONSULT TO CC NEPHROLOGY (DARIANA,FV,MM) PHYSICIAN CONSULT (LENCHO,DARIANA,MAIA,FV,HL,KEEGAN,MM,S P) PATIENT CONDITION AT DISCHARGE: Stable ADVANCE [...] identified Vision (more content not included)... Normal [facility] CONSULTon 07-12-2021 CONSULT HNO ID: [id number] Author: Latrell Cabello MD Service: Infectious Disease [...] Nev (more content not included)... [facility] CONSULT PROGon 07-12-2021 CONSULT PROG HNO ID: [id number] Author: Justin Glasgow PA-C Service: Pain Management Author Type: Physician Manager Bilingual Type: Consult Progress Note Filed: 07/12/2021 4:02 [...] Pain scores overnight between 4-8/10 per [employer] Plaste[employer]. The patient's current inpatient analgesic regimen has not been reordered at this time. The patient currently rates his pain at 03/05. He states that the pain is worse [...] (BACTRIM DS,SEPTRA DS) 1 tablet ORAL - [Held on Transfer - Suspended Admission] [...] July 12, 2021 4:01 PM [facility] CONSULT PROG HNO ID: [id number] Author: Spike Gandara MD Service: Nephrology Author Type: Physician Type: Consult Progress Note Filed: 07/12/2021 12:22 PM Note Text: [facility] NEPHROLOGY CONSULT PROGRESS NOTE SERVICE DATE: July [...] DATE: July 12, 2021 12:22 PM PHONE: [phone] FOR AFTER HOUR CONCERNS BETWEEN 7PM - 7AM CONTACT ON-CALL NEPHROLOGY STAFF Normal [facility] Hepatic Functn Panelon 07-12 Albumin [Mass/Vol] 3.0 g/dL Low 3.9-4.9 [facility] ALP [Catalytic activity/Vol] 292 U/L High 38-113 [facility] ALT [Catalytic activity/Vol] 44 U/L Normal 10-54 [facility] AST [Catalytic activity/Vol] 129 U/L High 14-40 [facility] Bilirubin [Mass/Vol] 1.6 mg/dL High 0.2-1.3 [facility] Bilirubin,Conjugate d 1.0 mg/dL High <0.2 [facility] Protein [Mass/Vol] 5.7 g/dL Low 6.3-8.0 [facility] NURSING PROGon 07-12-2021 NURSING PROG HNO ID: [id number] Author: Marcela Mcdaniel RN Service: Nursing Author Type: Registered Nurse Type: Nursing Progress Note Filed: 07/12/2021 1:03 AM Note Text: Nursing Progress Note Patient Name: Chuckie Villalta Patient Location: / Daily Note: Report received from BATOOL Nolan. Pt resting comfortably in bed. Will continue to monitor. This note was completed by: Marcela Mcdaniel Normal [facility] Tacrolimus / [id number] Tacrolimus / FK506 7.7 ng/mL Normal 5.0-20.0 [facility] Comment on above: Result Comment: Thes e [...] Test performed by chemiluminescent immunoassay using [employer] Animal Pathologist. Performed By: #### F K506 ####[facility] [place] [facility] [place], [place] [phone] Amylaseon 07-11-2021 Amylase [Catalytic activity/Vol] 59 U/L Normal 30-104 [facility] Basic Metabolic Panlon 07-11 Anion gap [Moles/Vol] 10 mmol/L Normal 9-18 [facility] Calcium [Mass/Vol] 8.5 mg/dL Normal 8.5-10.2 [facility] Chloride [Moles/Vol] 103 mmol/L Normal 97-105 [facility] CO2 [Moles/Vol] 22 mmol/L Normal 22-30 [facility] Creatinine [Mass/Vol] 2.77 mg/dL High 0.73-1.22 [facility] eGFR- Amer. 32 Normal [facility] eGFR-All Other Races 26 . Normal [facility] Comment on above: Result [...] [email or web address]. Glucose [Mass/Vol] 122 mg/dL High 74-99 [facility] Comment on above: Result Comment: The [place] Diabetes Association (ADA) provides guidance for cutoff [...] Standards of Medical Care in Diabetes 2016, [place] [employer]. Diabetes Care. 2016.39(Suppl 1). Potassium [Moles/Vol] 3.5 mmol/L Low 3.7-5.1 [facility] Sodium [Moles/Vol] 135 mmol/L Low 136-144 [facility] Urea nitrogen [Mass/Vol] 12 mg/dL Normal 9-24 [facility] CONSULT PROGon 07-11-2021 CONSULT PROG HNO ID: [id number] Author: Spike Gandara MD Service: Nephrology Author Type: Physician Type: Consult Progress Note Filed: 07/11/2021 1:06 PM Note Text: [facility] NEPHROLOGY CONSULT PROGRESS NOTE SERVICE DATE: July [...] stenosis, seem by GI, pending transfer to [facility] ? Hemochromatosis s/p OLT on immunosuppression of [...] DATE: July 11, 2021 1:03 PM PHONE: [phone] FOR AFTER HOUR CONCERNS BETWEEN 7PM - 7AM CONTACT ON-CALL NEPHROLOGY STAFF [facility] CONSULT PROG HNO ID: [id number] Author: Justin Glasgow PA-C Service: Pain Management Author Type: Physician Manager Bilingual Type: Consult Progress Note Filed: 07/11/2021 11:02 [...] Pain scores overnight between 4-9/10 per V[employer] Plasterer Rough. The patient's current inpatient analgesic regimen includes: [...] PA-C July 11, 2021 11:02 AM Normal [facility] Amylaseon 07-10-2021 Amylase [Catalytic activity/Vol] 51 U/L Normal 30-104 [facility] Basic Metabolic Panlon 07-10 Anion gap [Moles/Vol] 10 mmol/L Normal 9-18 [facility] Calcium [Mass/Vol] 8.5 mg/dL Normal 8.5-10.2 [facility] Chloride [Moles/Vol] 106 mmol/L High 97-105 [facility] CO2 [Moles/Vol] 21 mmol/L Low 22-30 [facility] Creatinine [Mass/Vol] 2.80 mg/dL High 0.73-1.22 [facility] eGFR- Amer. 31 Normal [facility] eGFR-All Other Races 26 . Normal [facility] Comment on above: Result [...] [email or web address]. Glucose [Mass/Vol] 126 mg/dL High 74-99 [facility] Comment on above: Result Comment: The [place] Diabetes Association (ADA) provides guidance for cutoff [...] Standards of Medical Care in Diabetes 2016, [place] [employer]. Diabetes Care. 2016.39(Suppl 1). Potassium [Moles/Vol] 3.5 mmol/L Low 3.7-5.1 [facility] Sodium [Moles/Vol] 137 mmol/L Normal 136-144 [facility] Urea nitrogen [Mass/Vol] 13 mg/dL Normal 9-24 [facility] CONSULT PROGon 07-10-2021 CONSULT PROG HNO ID: [id number] Author: Justin Glasgow PA-C Service: Pain Management Author Type: Physician Manager Bilingual Type: Consult Progress Note Filed: 07/10/2021 12:38 [...] Pain scores overnight between 4-7/10 per [employer]asterer [employer]. The patient's current inpatient analgesic regimen includes: [...] MPAS, PA-C July 10, 2021 12:38 PM [facility] CONSULT PROG HNO ID: [id number] Author: Spike Gandara MD Service: Nephrology Author Type: Physician Type: Consult Progress Note Filed: 07/10/2021 11:42 AM Note Text: [facility] NEPHR[facility] CONSULT PROGRESS NOTE SERVICE DATE: July [...] stenosis, seem by GI, pending transfer to [facility] ? Hemochromatosis s/p OLT on immunosuppression of [...] DATE: July 10, 2021 11:41 AM PHONE: [phone] FOR AFTER HOUR CONCERNS BETWEEN 7PM - 7AM CONTACT ON-CALL NEPHROLOGY STAFF [facility] Tacrolimus / [id number] 021 Tacrolimus / FK506 9.3 ng/mL Normal 5.0-20.0 [facility] Comment on above: Result Comment: Thes e [...] situation. Test performed by chemiluminescent immunoassay using Immunovaccine. Performed By: #### F K506 ####[facility] [place] [facility] [place], [place] [phone] [facility] 07-09-2021 [facility] HNO ID: [id number] Author: RT Kristyn(R) Service: ? Author Type: [...] July 08, 2021 11:17 PM [facility] CASE MANAGEMon 07-09-2021 CASE MANAGEM HNO ID: [id number] Author: Nanette Dangelo RN Service: ? Author [...] 2021 TIME: 6:19 PM PAGER/CONTACT #: Normal [facility] CBC and Differentialon 07-09 Abs Baso 0.00 k/uL Normal <0.11 [facility] Abs [place] 1.28 k/uL High <0.87 [facility] Abs Neut 7.42 k/uL Normal 1.45-7.50 [facility] ANC(includeSEG+BAND ) 7.42 k/uL Normal [facility] Anisocytosis Ql (Bld) Present Normal [facility] Basophils/100 WBC (Bld) 0.0 % Normal [facility] DTYPE Manual Diff Normal [facility] Eosinophils (Bld) [#/Vol] 0.00 10*3/uL Normal <0.46 [facility] Eosinophils/100 WBC (Bld) 0.0 % Normal [facility] Erythrocyte distribution width (RBC) [Ratio] 15.6 % High 11.5-15.0 [facility] Hematocrit (Bld) [Volume fraction] 26.3 % Low 39.0-51.0 [facility] Hemoglobin (Bld) [Mass/Vol] 9.1 g/dL Low 13.0-17.0 [facility] Left Shift Present Normal [facility] Lymphocytes (Bld) [#/Vol] 0.37 10*3/uL Low 1.00-4.00 [facility] Lymphocytes/100 WBC (Bld) 4.0 % Normal [facility] MCH 35.0 pG High 26.0-34.0 [facility] MCHC (RBC) [Mass/Vol] 34.6 g/dL Normal 30.5-36.0 [facility] MCV (RBC) [Entitic vol] 101.2 fL High 80.0-100.0 [facility] Monocytes/100 WBC (Bld) 14.0 % Normal [facility] Myelo% 1.0 % Normal [facility] Neutrophils/100 WBC (Bld) 81.0 % Normal [facility] Platelet Estimate Platelet estimate decreased Normal [facility] Platelet mean volume (Bld) [Entitic vol] 12.3 fL Normal 9.0-12.7 [facility] Platelets (Bld) [#/Vol] 59 10*3/uL Low 150-400 [facility] Polychromasia Slight Normal [facility] RBC (Bld) [#/Vol] 2.60 10*6/uL Low 4.20-6.00 [facility] WBC (Bld) [#/Vol] 9.16 10*3/uL Normal 3.70-11.00 [facility] CONSULT PROGon 07-09-2021 CONSULT PROG HNO ID: [id number] Author: Justin Glasgow PA-C Service: Pain Management Author Type: Physician Manager Bilingual Type: Consult Progress Note Filed: 07/09/2021 3:41 [...] Pain scores overnight between 4-8/10 per Vital Plasterer Rough. The patient's current inpatient analgesic regimen includes: [...] July 09, 2021 3:41 PM [facility] CONSULT PROG HNO ID: [id number] Author: Ana Cotton APRN.DIGITAL STRATEGY SPECIALIST Service: Gastroenterology Author Type: Nurse Practitioner Type: Consult Progress Note Filed: 07/09/2021 12:27 PM Note Text: Brief GI progress note LFTs completely normalized today Tolerated clears yesterday can advance diet as tolerated - no fatty/fried food Tacro levels elevated likely contributing to kidney function Nephrology stopped fluids, agree. Only needed for pancreatitis first 24 hours Pt continues to wait for bed at [facility], pt will likely still be inpatient for few days while monitoring kidney function and tacro levels if does not get a bed still at that time and tolerating diet can likely get scheduled for ERCP at [facility] as outpatient Will continue to monitor peripherally Normal [facility] CONSULT PROG HNO ID: [id number] Author: Spike Gandara MD Service: Nephrology Author Type: Physician Type: Consult Progress Note Filed: 07/09/2021 12:32 PM Note Text: [facility] CONSULT PROGRESS NOTE SERVICE DATE: July [...] stenosis, seem by GI, pending transfer to [facility] ? Hemochromatosis s/p OLT on immunosuppression of [...] DATE: July 09, 2021 11:39 AM PHONE: [phone] FOR AFTER HOUR CONCERNS BETWEEN 7PM - 7AM CONTACT ON-CALL NEPHROLOGY STAFF [facility] CONSULT PROG HNO ID: [id number] Author: Valencia Noguera [facility] Service: Pharmacy Author Type: Pharmacist Type: Consult [...] have reviewed the above information with the student services advisor/resident or i&c technician and agree with the assessment/plan described. Changes or additions to the note are indicated by italics and . Valencia Noguera, Pharmacist 07/09/2021 7:54 AM Ext: [phone] Normal [facility] CONSULT PROG HNO ID: [id number] Author: Lei Mckoy [facility] Service: Pharmacy Author Type: Pharmacist Type: Consult [...] have any questions, please contact pharmacy at [phone]. Age: [age] year old Allergies: ALLERGIES Allergen [...] 07/08/20212010 18.6 07/07/20212001 37.3 (H) Lei Mckoy, [facility] Normal [facility] Comp Metabolic Panelon 07-09 Albumin [Mass/Vol] 2.9 g/dL Low 3.9-4.9 [facility] ALP [Catalytic activity/Vol] 63 U/L Normal 38-113 [facility] ALT [Catalytic activity/Vol] 16 U/L Normal 10-54 [facility] Anion gap [Moles/Vol] 8 mmol/L Low 9-18 [facility] AST [Catalytic activity/Vol] 17 U/L Normal 14-40 [facility] Bilirubin [Mass/Vol] 1.0 mg/dL Normal 0.2-1.3 [facility] Calcium [Mass/Vol] 8.0 mg/dL Low 8.5-10.2 [facility] Chloride [Moles/Vol] 109 mmol/L High 97-105 [facility] CO2 [Moles/Vol] 20 mmol/L Low 22-30 [facility] Creatinine [Mass/Vol] 2.83 mg/dL High 0.73-1.22 [facility] eGFR- Amer. 31 Normal [facility] eGFR-All Other Races 26 . Normal [facility] Comment on above: Result [...] [email or web address]. Glucose [Mass/Vol] 174 mg/dL High 74-99 [facility] Comment on above: Result Comment: The [place] Diabetes Association (ADA) provides guidance for cutoff [...] Standards of Medical Care in Diabetes 2016, [place] [employer]. Diabetes Care. 2016.39(Suppl 1). Potassium [Moles/Vol] 3.8 mmol/L Normal 3.7-5.1 [facility] Protein [Mass/Vol] 5.1 g/dL Low 6.3-8.0 [facility] Sodium [Moles/Vol] 137 mmol/L Normal 136-144 [facility] Urea nitrogen [Mass/Vol] 16 mg/dL Normal 9-24 [facility] MRI BRAIN WO IVCONon 12-14-2 021 MRI BRAIN WO IVCON * * *Final Report* * * DATE OF EXAM: Jul 08 2021 11:28PM [facility] 0294 - MRI BRAIN WO IVCON / [...] if there is concern for demyelinating disease. Manifest/Order Organizer Print Orders: GUILLE Transcribe Date/Time: Jul 09 2021 2:02A Dictated by : CARLOS ALEJANDRA MD This examination was interpreted and the report reviewed and electronically signed by: CARLOS ALEJANDRA MD on Jul 09 2021 2:09AM EST [id number] Normal [facility] Magnesiumon 07-09-2021 Magnesium [Mass/Vol] 1.8 mg/dL Normal 1.7-2.3 [facility] NURSING PROGon 07-09-2021 NURSING PROG HNO ID: [id number] Author: Demetrice Chacon RN Service: Nursing Author [...] note was completed by: Demetrice Chacon Normal [facility] Protein/Creatinine Ratioon 1 09-09-2020 Creatinine,Urine,Ra n 68.3 mg/dL Normal 20-300 [facility] Comment on above: Performed By: #### P RATIO ####[facility] [place] [facility] [place], [place] [phone] Protein (U) [Mass/Vol] 7 mg/dL Normal 0-20 [facility] Comment on above: Performed By: #### P RATIO ####[address] [phone] Protein/Creatinine Ratio 0.1 Normal <0.2 [facility] Comment on above: Performed By: #### P RATIO ####[address] [phone] Urinalysis with Microscopico n 07-09-2021 Bilirubin, Urine Negative Normal Negative [facility] Cast SEE COMMENT Normal 0 [facility] Comment on above: Result Comment: 0 Clarity (U) Clear Normal Clear [facility] Color (U) Yellow Normal Yellow [facility] Glucose Ql (U) 1+ mg/dL Critically abnormal Negative [facility] Hemoglobin/Blood,Ur Negative Normal Negative [facility] Ketones Ql (U) Negative Normal Negative [facility] Leukest Negative Normal Negative [facility] Nitrite Ql (U) Negative Normal Negative [facility] pH (U) 5.5 [pH] Normal 5.0-8.0 [facility] Protein, Urine Trace Critically abnormal Negative [facility] RBC 0-3 Normal 0-3 [facility] Specific [place], Ur 1.010 Normal 1.005-1.030 [facility] Urobilinogen Qn (U) 0.2 {Andrea'U}/dL Normal 0.2-1.0 [facility] WBC 0-5 Normal 0-5 [facility] ALLIED HEALTHon 07-08-2021 ALLIED HEALTH HNO ID: [id number] Author: Joshua Moran Service: Spiritual Care Author Type: ? Type: Allied Health Filed: 07/08/2021 1:06 PM Note Text: SPIRITUAL CARE PROGRESS NOTE SERVICE DATE: 07/08/2021 SERVICE TIME: 12:45PM Pt listed as [employer] in [facility], and he shared that he and his family attend the [place] in [place], [place]; pt in good spirits but drowsy at the time of visit; shared that he has undergone a liver transplant, and is now dealing with pancreatitis; provided him with a daily devotional for his use, and offered a blessing bedside; no follow-up planned unless requested. To contact the Spiritual Care Department: Please call Ext [phone] SIGNATURE: Joshua Moran PATIENT NAME: Chuckie Villalta DATE: July 08, 2021 TIME: 1:04 PM PAGER/CONTACT #: [phone] Normal [facility] CBC and Differentialon 07-08 Abs Baso 0.00 k/uL Normal <0.11 [facility] Abs [place] 1.25 k/uL High <0.87 [facility] Abs Neut 6.26 k/uL Normal 1.45-7.50 [facility] ANC(includeSEG+BAND ) 6.26 k/uL Normal [facility] Anisocytosis Ql (Bld) Present Normal [facility] Basophils/100 WBC (Bld) 0.0 % Normal [facility] DTYPE Manual Diff Normal [facility] Eosinophils (Bld) [#/Vol] 0.00 10*3/uL Normal <0.46 [facility] Eosinophils/100 WBC (Bld) 0.0 % Normal [facility] Erythrocyte distribution width (RBC) [Ratio] 15.7 % High 11.5-15.0 [facility] Hematocrit (Bld) [Volume fraction] 26.0 % Low 39.0-51.0 [facility] Hemoglobin (Bld) [Mass/Vol] 9.0 g/dL Low 13.0-17.0 [facility] Left Shift Present Normal [facility] Lymphocytes (Bld) [#/Vol] 0.23 10*3/uL Low 1.00-4.00 [facility] Lymphocytes/100 WBC (Bld) 3.0 % Normal [facility] MCH 35.4 pG High 26.0-34.0 [facility] MCHC (RBC) [Mass/Vol] 34.6 g/dL Normal 30.5-36.0 [facility] MCV (RBC) [Entitic vol] 102.4 fL High 80.0-100.0 [facility] Monocytes/100 WBC (Bld) 16.0 % Normal [facility] Myelo% 1.0 % Normal [facility] Neutrophils/100 WBC (Bld) 80.0 % Normal [facility] Platelet Estimate Platelet estimate decreased Normal [facility] Platelet mean volume (Bld) [Entitic vol] 12.3 fL Normal 9.0-12.7 [facility] Platelets (Bld) [#/Vol] 39 10*3/uL Low 150-400 [facility] Polychromasia Slight Normal [facility] RBC (Bld) [#/Vol] 2.54 10*6/uL Low 4.20-6.00 [facility] WBC (Bld) [#/Vol] 7.82 10*3/uL Normal 3.70-11.00 [facility] CONSULTon 07-08-2021 CONSULT HNO ID: [id number] Author: Justin Glasgow PA-C Service: Pain Management Author Type: Physician Manager Bilingual Type: Consults Filed: 07/08/2021 2:06 PM Note Text: PAIN MANAGEMENT CONSULT -- [facility] PATIENT NAME: Chuckie Villalta [...] is consulted RE: acute pancreatitis, on fentanyl bus greaser by Dr. Jolynn Jaquez and Lisseth Raymond [...] (PF) 4 mg injection (ZOFRAN) - fentaNYL MORALE OFFICER 20 mcg/mL in NaCl 0.9% 100 mL [...] 167* TP (more content not included)... Normal [facility] CONSULT HNO ID: [id number] Author: Spike Gandara MD Service: Nephrology Author Type: Physician Type: Consults Filed: 07/08/2021 2:05 PM Note Text: [facility]PHR[facility]Y AND HYPERTENSION [facility] SERVICE DATE: July [...] injection (ZOF (more content not included)... Normal [facility] CONSULT PROGon 07-08-2021 CONSULT PROG HNO ID: [id number] Author: Ana Cotton APRN.DIGITAL STRATEGY SPECIALIST Service: Gastroenterology Author Type: Nurse Practitioner Type: [...] Splenomegaly. 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 Will discuss with staff and SM Dr. Barr as well. Normal [facility] Calcium, Ionizedon Calcium, Ionized 1.12 mmol/L Normal 1.08-1.30 [facility] Comp Metabolic Panelon 07-08 Albumin [Mass/Vol] 2.9 g/dL Low 3.9-4.9 [facility] ALP [Catalytic activity/Vol] 60 U/L Normal 38-113 [facility] ALT [Catalytic activity/Vol] 22 U/L Normal 10-54 [facility] Anion gap [Moles/Vol] 8 mmol/L Low 9-18 [facility] AST [Catalytic activity/Vol] 38 U/L Normal 14-40 [facility] Bilirubin [Mass/Vol] 1.6 mg/dL High 0.2-1.3 [facility] Calcium [Mass/Vol] 8.0 mg/dL Low 8.5-10.2 [facility] Chloride [Moles/Vol] 106 mmol/L High 97-105 [facility] CO2 [Moles/Vol] 18 mmol/L Low 22-30 [facility] Creatinine [Mass/Vol] 2.34 mg/dL High 0.73-1.22 [facility] eGFR- Amer. 39 Normal [facility] eGFR-All Other Races 32 . Normal [facility] Comment on above: Result [...] [email or web address]. Glucose [Mass/Vol] 107 mg/dL High 74-99 [facility] Comment on above: Result Comment: The [place] Diabetes Association (ADA) provides guidance for cutoff [...] Standards of Medical Care in Diabetes 2016, [place] [employer]. Diabetes Care. 2016.39(Suppl 1). Potassium [Moles/Vol] 3.9 mmol/L Normal 3.7-5.1 [facility] Protein [Mass/Vol] 4.9 g/dL Low 6.3-8.0 [facility] Sodium [Moles/Vol] 132 mmol/L Low 136-144 [facility] Urea nitrogen [Mass/Vol] 17 mg/dL Normal 9-24 [facility] Lipaseon 07-08-2021 Lipase [Catalytic activity/Vol] 235 U/L High 16-61 [facility] Magnesiumon 07-08-2021 Magnesium [Mass/Vol] 1.4 mg/dL Low 1.7-2.3 [facility] Tacrolimus / [id number] 021 Tacrolimus / FK506 23.3 ng/mL High 5.0-20.0 [facility] Comment on above: Result Comment: Thes e [...] Test performed by chemiluminescent immunoassay using [employer] Animal Pathologist. Performed By: #### F K506 ####[facility] [place] [facility] [place], [place] [phone] US ABD RIGHT UPPER QUADRANTo n 07-08-2021 [...] 5. Trace ascites in the upper abdomen. Manifest/Order Organizer Print Orders: GUILLE Transcribe Date/Time: Jul 08 2021 12:28P Dictated by : ROCIO MANZO MD This examination was interpreted and the report reviewed and electronically signed by: ROCIO MANZO MD on Jul 08 2021 12:32PM EST [id number] Normal [facility] US ABD SPLEEN -NBon 07-08-20 [...] 5. Trace ascites in the upper abdomen. Manifest/Order Organizer Print Orders: GUILLE Transcribe Date/Time: Jul 08 2021 12:28P Dictated by : ROCIO MANZO MD This examination was interpreted and the report reviewed and electronically signed by: ROCIO MANZO MD on Jul 08 2021 12:32PM EST [id number] Normal [facility] Vancomycinon 07-08-2021 Vancomycin 18.6 ug/mL Normal 10.0-20.0 [facility] Comment on above: Result Comment: Refe rence ranges and high/low indicator flags are provided as general guidelines only. The treating physician must determine appropriate target levels/dosing based on the specific clinical situation. CBCon 07-07-2021 Absolute nRBC 0.03 k/uL High <0.01 [facility] Erythrocyte distribution width (RBC) [Ratio] 15.7 % High 11.5-15.0 [facility] Hematocrit (Bld) [Volume fraction] 29.1 % Low 39.0-51.0 [facility] Hemoglobin (Bld) [Mass/Vol] 10.5 g/dL Low 13.0-17.0 [facility] MCH 36.2 pG High 26.0-34.0 [facility] MCHC (RBC) [Mass/Vol] 36.1 g/dL High 30.5-36.0 [facility] MCV (RBC) [Entitic vol] 100.3 fL High 80.0-100.0 [facility] Platelet mean volume (Bld) [Entitic vol] 11.8 fL Normal 9.0-12.7 [facility] Platelets (Bld) [#/Vol] 45 10*3/uL Low 150-400 [facility] RBC (Bld) [#/Vol] 2.90 10*6/uL Low 4.20-6.00 [facility] WBC (Bld) [#/Vol] 9.23 10*3/uL Normal 3.70-11.00 [facility] CONSULT PROGon 07-07-2021 CONSULT PROG HNO ID: [id number] Author: Valencia Noguera [facility] Service: Pharmacy Author Type: Pharmacist Type: Consult [...] (ug/mL) Date/Time Value 07/07/20212001 37.3 (H) [place] Noguera rodrigo Normal [facility] Comp Metabolic Panelon 07-07 Albumin [Mass/Vol] 3.0 g/dL Low 3.9-4.9 [facility] ALP [Catalytic activity/Vol] 70 U/L Normal 38-113 [facility] ALT [Catalytic activity/Vol] 41 U/L Normal 10-54 [facility] Anion gap [Moles/Vol] 9 mmol/L Normal 9-18 [facility] AST [Catalytic activity/Vol] 131 U/L High 14-40 [facility] Bilirubin [Mass/Vol] 4.9 mg/dL High 0.2-1.3 [facility] Calcium [Mass/Vol] 7.9 mg/dL Low 8.5-10.2 [facility] Chloride [Moles/Vol] 105 mmol/L Normal 97-105 [facility] CO2 [Moles/Vol] 18 mmol/L Low 22-30 [facility] Creatinine [Mass/Vol] 1.63 mg/dL High 0.73-1.22 [facility] eGFR- Amer. 59 Normal [facility] eGFR-All Other Races 48 . Normal [facility] Comment on above: Result [...] [email or web address]. Glucose [Mass/Vol] 110 mg/dL High 74-99 [facility] Comment on above: Result Comment: The [place] Diabetes Association (ADA) provides guidance for cutoff [...] Standards of Medical Care in Diabetes 2016, [place] Diabetes Association. Diabetes Care. 2016.39(Suppl 1). Potassium [Moles/Vol] 4.1 mmol/L Normal 3.7-5.1 [facility] Protein [Mass/Vol] 5.0 g/dL Low 6.3-8.0 [facility] Sodium [Moles/Vol] 132 mmol/L Low 136-144 [facility] Urea nitrogen [Mass/Vol] 15 mg/dL Normal 9-24 [facility] NURSING PROGon 07-07-2021 NURSING PROG HNO ID: [id number] Author: Preethi Slater RN Service: Nursing Author Type: Registered Nurse Type: Nursing Progress Note Filed: 07/06/2021 11:25 PM Note Text: Nursing Progress Note Patient Name: Chuckie Villalta Patient [place] [address] [address] Transfer Note: Patient transferred from [facility] Room 426 to [facility] by bed in stable condition with IV fluids, IV antibiotics, and a MORALE OFFICER pump with on demand fentanyl. Vital signs obtained, patient oriented to room. Call light within reach. This note was completed by: Preethi Slater RN Normal [facility] NURSING PROG HNO ID: [id number] Author: Delilah Le RN Service: Nursing Author Type: Registered Nurse Type: Nursing Progress Note Filed: 07/06/2021 10:24 PM Note Text: Report called to room 414 Mare RN patient aware of tranfer. Belongings with patient , transferred juanpablo new room with RN in bed, vs stable. Normal [facility] Vancomycinon 07-07-2021 Vancomycin 37.3 ug/mL High 10.0-20.0 [facility] Comment on above: Result Comment: Refe rence ranges and high/low indicator flags are provided as general guidelines only. The treating physician must determine appropriate target levels/dosing based on the specific clinical situation. CASE MGT INIT ASSESon 2020 CASE MGT INIT [facility] HNO ID: [id number] Author: Mariluz Salamanca RN Service: Nursing Author Type: Registered Nurse Type: Care Mgt Initial Assessment Filed: 07/06/2021 2:04 PM Note Text: CARE MANAGEMENT: ASSESSMENT AND DISCHARGE PLAN SERVICE DATE: July 06, 2021 SERVICE TIME: 1:59 PM PRIMARY CARE PHYSICIAN: Luis Abdalla DO ADMISSION STATUS: Inpatient MEDICAL: CRITICAL ACCESS HOSPITAL PLAN MEDICAID Health Insurance: [facility] ([facility] Medicaid) Last Discharge Date: 02/13/20 Is this Within the Past 30 days? Advance Directive: Current Advance Directive: Health Care Power of Flash Oven Operator In Chart: Yes Up To Date [...] Information Primary Emergency Contact: Remedios Villalta Address: [address] [place] [address] Mobile Relation: Spouse Supportive Patient Contact:: Yes Contact Resources: Family;Significant Other FREEDOM OF CHOICE EXPLAINED: [place] of Choice Given: No Reason Not Given: [...] 06, 2021 TIME: 1:59 PM PAGER/CONTACT #: [phone] Normal [facility] CBC and Differentialon 07-06 Abs Baso 0.00 k/uL Normal <0.11 [facility] Abs [place] 0.64 k/uL Normal <0.87 [facility] Abs Neut 8.13 k/uL High 1.45-7.50 [facility] ANC(includeSEG+BAND ) 8.13 k/uL Normal [facility] Basophils/100 WBC (Bld) 0.0 % Normal [facility] DTYPE Manual Diff Normal [facility] Eosinophils (Bld) [#/Vol] 0.09 10*3/uL Normal <0.46 [facility] Eosinophils/100 WBC (Bld) 1.0 % Normal [facility] Erythrocyte distribution width (RBC) [Ratio] 14.6 % Normal 11.5-15.0 [facility] Hematocrit (Bld) [Volume fraction] 30.9 % Low 39.0-51.0 [facility] Hemoglobin (Bld) [Mass/Vol] 11.4 g/dL Low 13.0-17.0 [facility] Left Shift Present Normal [facility] Lymphocytes (Bld) [#/Vol] 0.27 10*3/uL Low 1.00-4.00 [facility] Lymphocytes/100 WBC (Bld) 3.0 % Normal [facility] MCH 35.0 pG High 26.0-34.0 [facility] MCHC (RBC) [Mass/Vol] 36.9 g/dL High 30.5-36.0 [facility] MCV (RBC) [Entitic vol] 94.8 fL Normal 80.0-100.0 [facility] Monocytes/100 WBC (Bld) 7.0 % Normal [facility] Neutrophils/100 WBC (Bld) 89.0 % Normal [facility] Platelet Estimate Platelet estimate decreased Normal [facility] Platelet mean volume (Bld) [Entitic vol] 11.3 fL Normal 9.0-12.7 [facility] Platelets (Bld) [#/Vol] 63 10*3/uL Low 150-400 [facility] RBC (Bld) [#/Vol] 3.26 10*6/uL Low 4.20-6.00 [facility] Red Cell Morph SEE COMMENT Normal [facility] Comment on above: Result Comment: Unre markable WBC (Bld) [#/Vol] 9.13 10*3/uL Normal 3.70-11.00 [facility] CONSULTon 07-06-2021 CONSULT HNO ID: [id number] Author: Og Gibbs MD Service: Gastroenterology Author [...] and hi s transferring the patient to [facility] giving his complex medica history and the need for repeated ERCP Dr. Wilburn reviewed the case too and agreed to transfer the patient to for further care Normal [facility] CONSULT PROGon 07-06-2021 CONSULT PROG HNO ID: [id number] Author: Pearl Mann [facility] Service: Pharmacy Author Type: Pharmacist Type: Consult [...] any questions, please contact Pharmacy at ex [phone]. Age: [age] year old Allergies: ALLERGIES Allergen [...] results found for: CHIDI Mann [facility] Normal [facility] Comp Metabolic Panelon 07-06 Albumin [Mass/Vol] 3.5 g/dL Low 3.9-4.9 [facility] ALP [Catalytic activity/Vol] 60 U/L Normal 38-113 [facility] ALT [Catalytic activity/Vol] 60 U/L High 10-54 [facility] Anion gap [Moles/Vol] 15 mmol/L Normal 9-18 [facility] AST [Catalytic activity/Vol] 361 U/L High 14-40 [facility] Bilirubin [Mass/Vol] 6.6 mg/dL High 0.2-1.3 [facility] Calcium [Mass/Vol] 7.8 mg/dL Low 8.5-10.2 [facility] Chloride [Moles/Vol] 102 mmol/L Normal 97-105 [facility] CO2 [Moles/Vol] 15 mmol/L Low 22-30 [facility] Creatinine [Mass/Vol] 1.73 mg/dL High 0.73-1.22 [facility] eGFR- Amer. 55 Normal [facility] eGFR-All Other Races 45 . Normal [facility] Comment on above: Result [...] [email or web address]. Glucose [Mass/Vol] 129 mg/dL High 74-99 [facility] Comment on above: Result Comment: The [place] Diabetes Association (ADA) provides guidance for cutoff [...] Standards of Medical Care in Diabetes 2016, [place] Diabetes Association. Diabetes Care. 2016.39(Suppl 1). Potassium [Moles/Vol] 4.3 mmol/L Normal 3.7-5.1 [facility] Protein [Mass/Vol] 5.2 g/dL Low 6.3-8.0 [facility] Sodium [Moles/Vol] 132 mmol/L Low 136-144 [facility] Urea nitrogen [Mass/Vol] 17 mg/dL Normal 9-24 [facility] ED NOTEon 07-06-2021 ED NOTE HNO ID: [id number] Author: Marcela Corley RN Service: Nursing Author Type: Registered Nurse Type: ED Notes Filed: 07/06/2021 4:57 AM Note Text: Report to Loraine RENAE. Normal [facility] ED NOTE HNO ID: [id number] Author: Marcela Corley RN Service: Nursing Author Type: Registered Nurse Type: ED Notes Filed: 07/06/2021 4:51 AM Note Text: Pt resting in bed at this time. Call light within reach, will continue to monitor. Normal [facility] Expedited [id number] 07-06-20 SARS-CoV-2 (COVID-19) RNA NOLBERTO+probe Ql (Unsp spec) UPPER RESPIRATORY TRACT SWAB Normal [facility] SARS-CoV-2 (COVID-19) RNA NOLBERTO+probe Ql (Unsp spec) Negative for COVID19 (SARS CoV2) by RT-PCR or equivalent method. Normal Negative for COVID19 (SARS CoV2) by RT-PCR or equivalent method. [facility] Comment on above: Result Comment: This test has been authorized by FDA under an Emergency Use Authorization (EUA). Lipaseon 07-06-2021 Lipase [Catalytic activity/Vol] 1496 U/L High 16-61 [facility] Magnesiumon 07-06-2021 Magnesium [Mass/Vol] 1.2 mg/dL Low 1.7-2.3 [facility] NURSING PROGon 07-06-2021 NURSING PROG HNO ID: [id number] Author: Loraine Ya RN Service: Nursing Author [...] This note was completed by: Loraine Ya [facility] XR CHEST 1V FRONTAL PORTon 1 09-06-2020 [...] are detected. IMPRESSION: No acute radiographic abnormality. Manifest/Order Organizer Print Orders: PSCB Transcribe Date/Time: Jul 05 2021 11:38P Dictated by : RIK YUN MD This examination was interpreted and the report reviewed and electronically signed by: RIK YUN MD on Jul 05 2021 11:39PM EST [id number] [facility] 07-05-2021 aPTT Coag (Bld) [Time] 22.6 s Low 23.0-32.4 [facility] Comment on above: Result [...] laboratory APTT reagent in use throughout the [facility]. Acetaminophenon 07-05-2021 Acetaminophen [Mass/Vol] ug/mL Low 10-30 [facility] Comment on above: Result Comment: Toxi c > 150 ug/mL 4 hours post ingestion The Ginger Akins nomogram can be used to estimate the probability of hepatotoxicity via the relationship of plasma acetaminophen concentration to the post ingestion interval. (Gareth. Pediatrics. 1975. 55:871 to 876 and Ginger et al. Arch [employer] Sales Executive Med. 1981. 141:380 to 385). Reference ranges and high/low indicator flags are provided as general guidelines only. The treating physician must determine appropriate target levels/dosing based on the specific clinical situation. Blood Cultureon 07-05-2021 Bacteria identified Cx Nom (Bld) Culture Result - No growth 5 days Normal [facility] Comment on above: Performed By: #### B LCUL ####[facility] [address] [place], [place] [phone] CBC and Differentialon 07-05 Abs Baso 0.00 k/uL Normal <0.11 [facility] Comment on above: Performed By: #### C BCDIF ####[facility] [place] [facility], [place] [phone] Abs [place] 0.97 k/uL High <0.87 [facility] Comment on above: Performed By: #### C BCDIF ####[facility] [place] [facility] [place], [place] [phone] Abs Neut 28.35 k/uL High 1.45-7.50 [facility] Comment on above: Performed By: #### C BCDIF ####[place] [address] [address] [phone] Anisocytosis Ql (Bld) Present Normal [facility] Comment on above: Performed By: #### C BCDIF ####[place] [address] [address] [phone] Basophils/100 WBC (Bld) 0.0 % Normal [facility] Comment on above: Performed By: #### C BCDIF ####[place] [address] [address] [phone] DTYPE Manual Diff Normal [facility] Comment on above: Performed By: #### C BCDIF ####[place] [address] [place] [phone] Eosinophils (Bld) [#/Vol] 0.00 10*3/uL Normal <0.46 [facility] Comment on above: Performed By: #### C BCDIF ####[place] [address] [address] [phone] Eosinophils/100 WBC (Bld) 0.0 % Normal [facility] Comment on above: Performed By: #### C BCDIF ####[place] [address] [place] [phone] Erythrocyte distribution width (RBC) [Ratio] 15.1 % High 11.5-15.0 [facility] Comment on above: Performed By: #### C BCDIF ####[place] [address] [address] [phone] Hematocrit (Bld) [Volume fraction] 43.2 % Normal 39.0-51.0 [facility] Comment on above: Performed By: #### C BCDIF ####[place] [address] [address], [place] [phone] Hemoglobin (Bld) [Mass/Vol] 16.2 g/dL Normal 13.0-17.0 [facility] Comment on above: Performed By: #### C BCDIF ####[address] [phone] Lymphocytes (Bld) [#/Vol] 0.00 10*3/uL Low 1.00-4.00 [facility] Comment on above: Performed By: #### C BCDIF ####[address] [phone] Lymphocytes/100 WBC (Bld) 0.0 % Normal [facility] Comment on above: Performed By: #### C BCDIF ####[address] [phone] MCH 35.1 pG High 26.0-34.0 [facility] Comment on above: Performed By: #### C BCDIF ####[address] [phone] MCHC (RBC) [Mass/Vol] 37.5 g/dL High 30.5-36.0 [facility] Comment on above: Performed By: #### C BCDIF ####[address] [phone] MCV (RBC) [Entitic vol] 93.7 fL Normal 80.0-100.0 [facility] Comment on above: Performed By: #### C BCDIF ####[address] [phone] Monocytes/100 WBC (Bld) 3.3 % Normal [facility] Comment on above: Performed By: #### C BCDIF ####[address] [phone] Neutrophils/100 WBC (Bld) 96.7 % Normal [facility] Comment on above: Performed By: #### C BCDIF ####[address] [phone] Platelet Estimate Platelet estimate adequate Normal [facility] Comment on above: Performed By: #### C BCDIF ####[facility] [place] [facility] [place], [place] [phone] Platelet mean volume (Bld) [Entitic vol] 11.6 fL Normal 9.0-12.7 [facility] Comment on above: Performed By: #### C BCDIF ####[address] [phone] Platelets (Bld) [#/Vol] 173 10*3/uL Normal 150-400 [facility] Comment on above: Performed By: #### C BCDIF ####[facility] [place] [facility] [place] [address] [phone] Polychromasia Slight Normal [facility] Comment on above: Performed By: #### C BCDIF ####[address] [phone] RBC (Bld) [#/Vol] 4.61 10*6/uL Normal 4.20-6.00 [facility] Comment on above: Performed By: #### C BCDIF ####[address] [phone] WBC (Bld) [#/Vol] 29.32 10*3/uL High 3.70-11.00 [facility] Comment on above: Result Comment: Resu lt checked and verified No clot detected. Performed By: #### C BCDIF ####[address] [phone] CONSULT PROGon 07-05-2021 CONSULT PROG HNO ID: [id number] Author: Pearl Mann RPh Service: Pharmacy Author [...] next vancomycin level will be ordered for 12 PM unless clinically indicated sooner. (Pharmacy will order) We will follow patient renal function, vancomycin levels and doses with you during the course of therapy. Additional recommendations will appear in follow up notes. If you have any questions, please contact Pharmacy at ex [phone]. Age: [age] year old Allergies: ALLERGIES Allergen [...] Levels: No results found for: CHIDI Mann, [facility] Normal [facility] CT ABD/PEL WO IVCONon 2020 CT ABD/PEL WO IVCON * * *Final Report* * * DATE OF EXAM: Jul 05 2021 7:05PM [facility] 0531 - CT ABD/PEL WO IVCON [...] abnormality. Lumbosacral pars defects. Lower thorax: Unremarkable. Plasterer Rough (topogram) images: No additional findings. IMPRESSION: Extensive pancreatitis with inflammatory changes surrounding the transverse colon, spleen and retroperitoneum. Small volume ascites is present. Extent of pancreatic necrosis cannot be assessed on a noncontrast examination. Manifest/Order Organizer Print Orders: GUILLE Transcribe Date/Time: Jul 05 2021 7:12P Dictated by : SPIKE FUNES MD This examination was interpreted and the report reviewed and electronically signed by: SPIKE FUNES MD on Jul 05 2021 7:23PM EST [id number] Normal [facility] Comp Metabolic Panelon 07-05 Albumin [Mass/Vol] 5.0 g/dL High 3.9-4.9 [facility] Comment on above: Performed By: #### C BCDIF ####[address] [phone] ALP [Catalytic activity/Vol] 77 U/L Normal 38-113 [facility] Comment on above: Performed By: #### C BCDIF ####[address] [phone] ALT [Catalytic activity/Vol] 34 U/L Normal 10-54 [facility] Comment on above: Performed By: #### C BCDIF ####[address] [phone] Anion gap [Moles/Vol] 23 mmol/L High 9-18 [facility] Comment on above: Performed By: #### C BCDIF ####[address] [phone] AST [Catalytic activity/Vol] 69 U/L High 14-40 [facility] Comment on above: Performed By: #### C BCDIF ####[address] [phone] Bilirubin [Mass/Vol] 5.3 mg/dL High 0.2-1.3 [facility] Comment on above: Performed By: #### C BCDIF ####[address] [phone] Calcium [Mass/Vol] 9.5 mg/dL Normal 8.5-10.2 [facility] Comment on above: Performed By: #### C BCDIF ####[address] [phone] Chloride [Moles/Vol] 92 mmol/L Low 97-105 [facility] Comment on above: Performed By: #### C BCDIF ####[address] [phone] CO2 [Moles/Vol] 15 mmol/L Low 22-30 [facility] Comment on above: Performed By: #### C BCDIF ####[address] [phone] Creatinine [Mass/Vol] 2.53 mg/dL High 0.73-1.22 [facility] Comment on above: Performed By: #### C BCDIF ####[address] [phone] eGFR- Amer. 35 Normal [facility] Comment on above: Performed By: #### C BCDIF ####[address] [phone] eGFR-All Other Races 29 . Normal [facility] Comment on above: Result [...] at [email or web address]. Performed By: #### C BCDIF ####[address] [phone] Glucose [Mass/Vol] 167 mg/dL High 74-99 [facility] Comment on above: Result Comment: The [place] Diabetes Association (ADA) provides guidance for cutoff [...] Standards of Medical Care in Diabetes 2016, [place] Diabetes Association. Diabetes Care. 2016.39(Suppl 1). Performed By: #### C BCDIF ####[address] [phone] Potassium [Moles/Vol] 5.5 mmol/L High 3.7-5.1 [facility] Comment on above: Performed By: #### C BCDIF ####[address] [phone] Protein [Mass/Vol] 7.6 g/dL Normal 6.3-8.0 [facility] Comment on above: Performed By: #### C BCDIF ####[address] [phone] Sodium [Moles/Vol] 130 mmol/L Low 136-144 [facility] Comment on above: Performed By: #### C BCDIF ####[address] [phone] Urea nitrogen [Mass/Vol] 20 mg/dL Normal 9-24 [facility] Comment on above: Performed By: #### C BCDIF ####[address] [phone] ED NOTEon 07-05-2021 ED NOTE HNO ID: [id number] Author: Max Styles RN Service: ? Author [...] up, bed in locked and low position [facility] ED PROV NOTEon 07-05-2021 ED PROV NOTE HNO ID: [id number] Author: Will Mccormick DO Service: Emergency Medicine [...] mmol/L Lact (more content not included)... Normal [facility] ED Triage Noteon 07-05-2021 ED Triage Note HNO ID: [id number] Author: Brian Ash I, PA-C Service: Emergency Medicine Author Type: Physician Manager Bilingual Type: ED Triage Notes Filed: 07/05/2021 6:11 [...] RUQ US SIGNATURE: Brian Ash PA-C Normal [facility] Ethanolon 07-05-2021 Ethanol [Mass/Vol] mg/dL Normal <11 [facility] Comment on above: Result Comment: Valu es > 80 mg/dL may indicate intoxication HISTORY PHYSICALon HISTORY PHYSICAL HNO ID: [id number] Author: Lisseth Raymond APRN.CNP Service: Hospital Medicine Author Type: Nurse Practitioner Type: HANDP Filed: 07/05/2021 9:37 PM Note Text: DEPARTMENT OF HOSPITAL MEDICINE HISTORY AND PHYSICAL EXAM SERVICE DATE: 07/05/2021 Code Status: Not on file SERVICE TIME: 9:27 PM Primary Care Physician: Luis Abdalla, DO NIGHT AND WEEKEND COVERAGE: [employer] C[employer]: : [phone], please contact via [employer] Nights: [phone], please page CC Hospitalist Night coverage pager [phone] Subjective CHIEF COMPLAINT: Epigastric pain going through [...] tests revie (more content not included)... Normal [facility] Lipaseon 07-05-2021 Lipase [Catalytic activity/Vol] 2781 U/L High 16-61 [facility] Comment on above: Performed By: #### C BCDIF ####[facility] [place] [facility] [place], [place] [phone] Magnesiumon 07-05-2021 Magnesium [Mass/Vol] 0.8 mg/dL Low 1.7-2.3 [facility] Comment on above: Result Comment: No c all per procedure. 07/05/21 1847 Performed By: #### C BCDIF ####[facility] [place] [facility] [place], [place] [phone] Protimeon 07-05-2021 PT INR 1.3 Normal 0.9-1.3 [facility] Comment on above: Result Comment: Aster min K Antagonist (VKA) Therapeutic Range: INR 2 to 3 (Target INR of 2.5) Note: For patients treated with VKA drugs, such as warfarin, the [place] [employer] 2012 Guideline recommends [...] 252-289 PT Sec 14.0 sec High 9.7-13.0 [facility] Triglycerideon 07-05-2021 Fasting Time Unknown Normal [facility] Triglyceride [Mass/Vol] 463 mg/dL High <150 [facility] Troponin Ton 07-05-2021 Troponin T <0.010 Normal 0.000-0.029 [facility] Kaleb 02-25-2021 L --- Specimen: [id number] Received: 02/25/21 Status: LU Wayne Num: [id number] Spec Type: Surgical Subm Dr: Josiah Pompa MD Tissues: A Disc - Intervertebral/Lumbar/C ervical (CERVICAL) Procedures: HE Stain, Gross/Micro L3 Patient Age/Sex Location Account Attending Physician Chuckie Villalta 35/M [place] [id number] Josiah Pompa MD SPEC NUM: [id number] RECD: 02/25/21 STATUS: LU WAYNE NUM: [id number] VJ: 02/25/21 DR: Josiah Pompa MD ENTERED: 02/25/[address] [facility] [address]: LOUIE TYPE: Surgical DEPT: [...] of montanez-pink, rubbery and ragged fibrous tissue. Recruiter Account Manager sections are submitted in one cassette labeled A1. (JAYCOB/YJ) Microscopic Description One glass slide with H E stained material has been examined. The microscopic findings support the above pathologic diagnosis. CPT Codes 80967 Specimen: [id number] Received: 02/25/21 Status: LU Wayne Num: [id number] Spec Type: Surgical Subm Dr: Josiah Pompa MD Tissues: A Disc - Intervertebral/Lumbar/C ervical (CERVICAL) Procedures: HE Stain, Gross/Micro L3 Patient: Chuckie Villalta [id number] (Continued) Signed (signature on file) Lucretia Lund MD 02/26/[address] [facility] XR cervical spine 1Von 02-25 XR cervical spine 1V [place] [address] XRay Report Signed Patient: Chuckie Villalta MR#: [id number] 56 : 1985 Acct:[id number] Age/Sex: 35 / M ADM Date: 02/25/21 Loc: Room: 6F2678-4 Type: REG [facility] Attending Dr: Josiah Pompa MD Ordering Provider: [...] Carlos Solano M.D.02/25/2021 4:31 PM Dictation Location: [place] [address] Transcribed By: [facility] 02/25/21 163 Dictated By: Carlos Solano II, MD 02/25/21 1630 Signed By: 02/25/21 163 Normal [facility] Basic Metabolic Panelon 01-25 Calcium [Mass/Vol] 9.3 mg/dL Normal 8.2-10.2 [facility] Comment on above: Result Comment: PERF ORMED BY: [place] [address] PATHOLOGIST FAITH HEALER ALFRED TRACY M.D. Performed By: #### B MP, CBC #### [address] Chloride [Moles/Vol] 99 mmol/L Normal 95-114 [facility] Comment on above: Performed By: #### B MP, CBC #### [facility] [address] [place] [address] [place] CO2 [Moles/Vol] 20.5 mmol/L Low 22.0-30.0 [facility] Comment on above: Performed By: #### B MP, CBC #### [facility] [address] [place] [address] [place] Creatinine [Mass/Vol] 1.31 mg/dL High 0.64-1.27 [facility] Comment on above: Performed By: #### B MP, CBC #### [facility] [address] [place] [address] [place] Estimated GFR ( Marissa > 60 Normal [facility] Comment on above: Result Comment: GFR estimated reference range: According to KDOQI guidelines, <60 ml/min/1.73m2 is sufficient to diagnose a patient with chronic kidney disease. Performed By: #### B MP, CBC #### [address] Estimated GFR (Non- Am > 60 Normal [facility] Comment on above: Performed By: #### B MP, CBC #### [address] Glucose [Mass/Vol] 105 mg/dL High 70-100 [facility] Comment on above: Result Comment: [place] Glucose Reference Range is dependent on time and content of last meal. Glucose of more than 200 mg/dL in a nonstressed, ambulatory subject supports the diagnosis of Diabetes Mellitus. ADA recommended reference range Performed By: #### B MP, CBC #### [address] Potassium [Moles/Vol] 4.4 mmol/L Normal 3.5-5.1 [facility] Comment on above: Performed By: #### B MP, CBC #### [place] [address] [place] Sodium [Moles/Vol] 133 mmol/L Low 136-146 [facility] Comment on above: Performed By: #### B MP, CBC #### [address] Urea nitrogen [Mass/Vol] 11 mg/dL Normal 9-23 [facility] Comment on above: Performed By: #### B MP, CBC #### [address] COVID-19 [facility] [place] SARS-CoV-2 (COVID-19) RNA NOLBERTO+probe Ql (Unsp spec) Negative Normal Negative [facility] Comment on above: Order Comment: Healt hcare Worker?: N Result Comment: Testing for SARS-CoV-2 by RT-PCR This test was developed and its performance characteristics determined by [employer] and validated at the [facility]. This test has not been FDA [...] is terminated or revoked sooner. PERFORMED BY: [place] [address] PATHOLOGIST FAITH HEALER ALFRED TRACY M.D. Performed By: #### C OVID 19 [facility] #### [address] Complete Blood Count Auto Di ffon 02-21-2021 Basophils (Bld) [#/Vol] 0.0 10*3/uL Normal 0.0-0.2 [facility] Comment on above: Result Comment: PERF ORMED BY: [place] [address] PATHOLOGIST FAITH HEALER ALFRED TRACY M.D. Performed By: #### B MP, CBC #### [address] Basophils/100 WBC (Bld) 0.5 % Normal . [facility] Comment on above: Performed By: #### B MP, CBC #### [place] [address] [place] Eosinophils (Bld) [#/Vol] 0.1 10*3/uL Normal 0.0-0.45 [facility] Comment on above: Performed By: #### B MP, CBC #### [place] [address] [place] Eosinophils/100 WBC (Bld) 1.2 % Normal . [facility] Comment on above: Performed By: #### B MP, CBC #### [facility] [address] Erythrocyte distribution width (RBC) [Ratio] 14.0 % Normal 12.0-14.8 [facility] Comment on above: Performed By: #### B MP, CBC #### [facility] [address] Hematocrit (Bld) [Volume fraction] 39.2 % Normal 38.8-50.0 [facility] Comment on above: Performed By: #### B MP, CBC #### [facility] [address] Hemoglobin (Bld) [Mass/Vol] 13.9 g/dL Normal 13.0-17.0 [facility] Comment on above: Performed By: #### B MP, CBC #### [address] Lymphocytes (Bld) [#/Vol] 1.0 10*3/uL Normal 1.00-4.8 [facility] Comment on above: Performed By: #### B MP, CBC #### [address] Lymphocytes/100 WBC (Bld) 9.5 % Normal . [facility] Comment on above: Performed By: #### B MP, CBC #### [facility] [address] MCH (RBC) [Entitic mass] 32.1 pg Normal 27.5-35.2 [facility] Comment on above: Performed By: #### B MP, CBC #### [facility] [address] MCV (RBC) [Entitic vol] 90.4 fL Normal 83.5-101 [facility] Comment on above: Performed By: #### B MP, CBC #### [address] Mean Corpuscular HGB Conc 35.5 g/dL Normal 32.5-35.6 [facility] Comment on above: Performed By: #### B MP, CBC #### [facility] [address] [place] [address] [place] Monocytes (Bld) [#/Vol] 0.6 10*3/uL Normal 0.0-0.8 [facility] Comment on above: Performed By: #### B MP, CBC #### [facility] [address] [place] [address] [place] Monocytes/100 WBC (Bld) 6.0 % Normal . [facility] Comment on above: Performed By: #### B MP, CBC #### [facility] [address] [place] [address] [place] Neutrophils (Bld) [#/Vol] 8.8 10*3/uL High 1.8-7.7 [facility] Comment on above: Performed By: #### B MP, CBC #### [facility] [address] [place] [address] [place] Neutrophils/100 WBC (Bld) 82.8 % Normal . [facility] Comment on above: Performed By: #### B MP, CBC #### [facility] [address] [place] [address] [place] Nucleated RBC/100 WBC (Bld) [Ratio] 0.0 % Normal 0-0.5 [facility] Comment on above: Performed By: #### B MP, CBC #### [facility] [address] [place] [address] [place] Platelet mean volume (Bld) [Entitic vol] 8.4 fL Normal 6.6-10.1 [facility] Comment on above: Performed By: #### B MP, CBC #### [facility] [address] [place] [id number] [place] Platelets (Bld) [#/Vol] 205 10*3/uL Normal 150-450 [facility] Comment on above: Performed By: #### B MP, CBC #### [facility] [address] [place] [id number] [place] RBC (Bld) [#/Vol] 4.34 10*6/uL Normal 3.90-5.60 [facility] Comment on above: Performed By: #### B MP, CBC #### [facility] [address] WBC (Bld) [#/Vol] 10.6 10*3/uL Normal 4.5-11.0 [facility] Comment on above: Performed By: #### B MP, CBC #### [facility] [address] ECG 12 lead ECGon 02-18-2021 ECG 12 lead ECG [facility] [place] [address] [place] [address] Electrocardiograph Report Signed Patient: Chuckie Villalta MR#: [id number] 56 : 1985 Acct:[id number] Age/Sex: 35 / M ADM Date: 02/18/21 Loc: Room: Type: [facility] Attending Dr: Josiah Pompa MD Ordering Provider: [...] 02/18/21 1413 Signed By: 02/18/21 1610 Normal [facility] MRI CSPINE WO CONon 12-07-19 MRI [...] by: ANGIE MCDANIEL Date: 2020-12-06 12:00 Normal [facility] Vital Signs Date Time Vital Sign Value Performing Clinician Facility 02-17-2025 10:10040 Body height 185.42 cm [facility] Work Phone: [facility] 02-17-2025 10:10-0400 Body mass index (BMI) [Ratio] 32.8 kg/m2 [facility] Work Phone: [facility] 02-17-2025 10:10-040 Body weight 112.94 kg [facility] Work Phone: [facility] 02-17-2025 10:10-0400 Diastolic blood pressure 80 mm[Hg] [facility] Work Phone: [facility] 02-17-2025 10:10-0400 Heart rate 85 /min Luis Ball DO Work Phone: [facility] 02-17-2025 10:10-0400 Respiratory rate 12 /min Luis Ball DO Work Phone: [facility] 02-17-2025 10:10-0400 Systolic blood pressure 110 mm[Hg] Luis Ball DO Work Phone: [facility] 09-02-2024 14:12-0500 Body height 185.42 cm [facility] 09-02-2024 14:12-0500 Body mass index (BMI) [Ratio] 31.8 kg/m2 [facility] 09-02-2024 14:12-0500 Body weight 109.42 kg [facility] 09-02-2024 14:12-0500 Diastolic blood pressure 72 mm[Hg] [facility] 09-02-2024 14:12-0500 Heart rate 97 /min [facility] 09-02-2024 14:12-0500 Respiratory rate 12 /min [facility] 09-02-2024 14:12-0500 Systolic blood pressure 95 mm[Hg] [facility] 02-29-2024 13:25-0400 Body height 185.42 cm [facility] 02-29-2024 13:25-0400 Body mass index (BMI) [Ratio] 29 kg/m2 [facility] 02-29-2024 13:25-0400 Body weight 99.79 kg [facility] 02-29-2024 13:25-0400 Diastolic blood pressure 91 mm[Hg] [facility] 02-29-2024 13:25-0400 Heart rate 111 /min [facility] 02-29-2024 13:25-0400 Respiratory rate 12 /min [facility] 02-29-2024 13:25-0400 Systolic blood pressure 161 mm[Hg] [facility] 06-20-2023 16:12-0500 Body temperature 96.98 [degF] [facility] 06-20-2023 16:12-0500 Diastolic blood pressure 85 mm[Hg] [facility] 06-20-2023 16:12-0500 Heart rate 114 /min [facility] 06-20-2023 16:12-0500 Respiratory rate 18 /min [facility] 06-20-2023 16:12-0500 SaO2% (BldA) [Mass fraction] 100 % [facility] 06-20-2023 16:12-0500 Systolic blood pressure 160 mm[Hg] [facility] 06-11-2023 10:00-0500 Body height 185.42 cm Luis Ball Other [facility] Other 06-11-2023 10:00-0500 Body mass index (BMI) [Ratio] 29.66 kg/m2 Luis Ball Other [facility] Other 06-11-2023 10:00-0500 Body weight 101.97 kg Luis Ball Other [facility] Other 06-11-2023 10:00-0500 Diastolic blood pressure 97 mm[Hg] Luis Ball Other [facility] Other 06-11-2023 10:00-0500 Respiratory rate 12 /min Luis Ball Other [facility] Other 06-11-2023 10:00-0500 Systolic blood pressure 141 mm[Hg] Luis Ball Other [facility] Other 03-05-2023 09:45-0400 Body height 185.42 cm Luis Ball Other [facility] Other 03-05-2023 09:45-0400 Body mass index (BMI) [Ratio] 29.6 kg/m2 Luis Ball Other [facility] Other 03-05-2023 09:45-0400 Body weight 101.79 kg Luis Ball Other [facility] Other 03-05-2023 09:45-0400 Diastolic blood pressure 109 mm[Hg] Luis Ball Other [facility] Other 03-05-2023 09:45-0400 Systolic blood pressure 153 mm[Hg] Luis Ball Other [facility] Other 09-12-2022 10:30-0500 Body height 185.42 cm Luis Ball Other [facility] Other 09-12-2022 10:30-0500 Body mass index (BMI) [Ratio] 29.95 kg/m2 Luis Ball Other [facility] Other 09-12-2022 10:30-0500 Body weight 102.97 kg Luis Ball Other [facility] Other 09-12-2022 10:30-0500 Diastolic blood pressure 86 mm[Hg] Luis Ball Other [facility] Other 09-12-2022 10:30-0500 Respiratory rate 12 /min Luis Ball Other [facility] Other 09-12-2022 10:30-0500 Systolic blood pressure 132 mm[Hg] Luis Ball Other [facility] Other Encounters Encounter Date Encounter Type Care Provider Facility Start: 03-09-2025 End: 03-09-2025 ambulatory NICKOLAS MCCALLUM Facility:[facility] Start: 02-17-2025 End: 02-17-2025 ambulatory Luis Ball DO Work Phone: [facility] Work Phone: Start: 02-17-2025 End: 02-17-2025 Patient encounter procedure Luis Abdalla [facility] Work Phone: Start: 01-26-2025 End: 01-26-2025 Emergency department patient visit Ralf Carbajal [facility] Start: 01-06-2025 ambulatory LUIS ABDALLA Facility: [facility] Start: 11-21-2024 End: 11-21-2024 ambulatory Vicente Thompson MD Facility:[facility] Start: 11-14-2024 End: 11-14-2024 ambulatory Vicente Thomposn MD Facility:[facility] Start: 09-02-2024 End: 09-02-2024 ambulatory [facility] Work Phone: Start: 09-02-2024 End: 09-02-2024 Encounter for general adult medical examination without abnormal findings [facility] Start: 09-02-2024 End: 09-02-2024 Patient encounter procedure [facility] Physician [facility] Work Phone: Start: 09-01-2024 Patient encounter status [facility] Start: 08-23-2024 Non-patient / Non-visit [facility] Physician [facility] Work Phone: Start: 08-20-2024 Non-patient / Non-visit [facility] Physician [facility] Work Phone: Start: 07-04-2024 End: 07-04-2024 ambulatory Vicente Thompson MD Facility:[facility] Start: 04-04-2024 End: 04-04-2024 ambulatory Vicente Thompson MD Facility:[facility] Start: 03-07-2024 End: 03-07-2024 ambulatory Vicente Thompson MD Facility:[facility] Start: 02-29-2024 End: 02-29-2024 ambulatory [facility] Work Phone: Start: 02-29-2024 End: 02-29-2024 Patient encounter procedure [facility] Work Phone: Start: 12-28-2023 End: 12-28-2023 ambulatory Vicente Thompson MD Facility:[facility] Start: 06-20-2023 End: 06-20-2023 Emergency department patient visit Wilmer Rosenberg [facility] Start: 06-11-2023 End: 06-11-2023 ambulatory Luis Abdalla Other [facility] Other Start: 06-11-2023 Encounter for genera l adult medical examination without abnormal findings [facility] Start: 06-11-2023 Periodic preventive med est patient 18-39 yrs [facility] Start: 03-05-2023 End: 03-05-2023 ambulatory Luis Abdalla Other [facility] Other Start: 03-05-2023 Office outpatient vi sit 15 minutes Luis [facility] Start: 09-22-2022 Telephone encounter 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 Comment on above: Care Coordination ([facility]) Start: 09-12-2022 End: 09-12-2022 ambulatory Luis Abdalla Other [facility] Other Start: 09-12-2022 Office outpatient vi sit 25 minutes Luis [facility] Start: 09-04-2022 Orders Only Betina Barr MD Work Phone: Gastroenterology Comment on above: Liver transplant rec ipient (HCC) (Primary Dx) Endoscopy Call Start: 07-22-2022 ambulatory Nadja Spencer RN [facility] Comment on above: holiday obs erved July 28 Start: 07-22-2022 E-mail encounter fro m caregiver Nadja Spencer RN [facility] Start: 05-01-2022 Lucretia Rivera PA-C Work Phone: H[facility]P MAIN G101 Comment on above: Refill Request Start: 03-24-2022 Telephone encounter [facility] Comment on above: Reminder To Have Lab s Drawn Start: 03-11-2022 Telephone encounter [facility]ja [facility] Comment on above: Covid19 Concern Start: 02-25-2022 End: 02-25-2022 ambulatory LUIS ABDALLA Facility:[facility] Start: 02-25-2022 End: 02-25-2022 Patient encounter procedure Rosemariese Roger [facility] Comment on above: Uncomplicated alcoho l dependence (HCC) Start: 02-20-2022 End: 02-20-2022 Social Work Alessia Marie [facility] Start: 12-27-2021 End: 12-27-2021 Subsequent hospital visit by physician Ct Prep Qb Radiology Start: 12-10-2021 End: 12-10-2021 ambulatory Aidan Larios MD Work Phone: Transplant Center Comment on above: Liver replaced by tr ansplant (HCC) (Primary Dx); Need for prophylactic immunotherapy Start: 12-10-2021 End: 12-10-2021 Telemedicine consultation with patient Aidan Larios MD Work Phone: [facility] Start: 11-08-2021 Telephone encounter [facility]ja [facility] Comment on above: Hospital Follow Up Start: 12-06-2020 End: 12-07-[address] LUIS ABDALLA Facility: Procedures Date Procedure Procedure Detail Performing Clinician Start: 09-04-2022 FLUORO ERCP (POC) FOR DDI USE ONLY Betina Barr MD Work Phone: Start: 02-24-2022 Adult depression screening assessment 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 Start: 12-27-2021 Ct abdomen w/contrast material Aidan [...] recipient Liver trans plant recipient (HCC) Betina Barr MD Work Phone: H/O: liver recipient Alonso Abdalla Other Plan of Treatment Date Care Activity Detail Author Start: 07-01-2028 Urine microalbumin profile DTAP,TDAP,TD (2 - Td or Tdap) [facility] Start: 07-07-2027 LIPID SCREEN LIPID SCREEN [facility] Start: 07-16-2026 LIPID SCREEN LIPID SCREEN [facility] Start: 01-15-2024 PNEUMOCOCCAL (3 - PP SV23 if available, else PCV20) PNEUMOCOCCAL (3 - PPSV23 if available, else PCV20) [facility] Start: 01-15-2024 PNEUMOCOCCAL (3 - PP SV23 or PCV20) PNEUMOCOCCAL (3 - PPSV23 or PCV20) [facility] Start: 10-05-2023 TWO PNEUMOVAX 5 YEAR S APART PRIOR TO AGE 65 (#2) TWO PNEUMOVAX 5 YEARS APART PRIOR TO AGE 65 (#2) [facility] Start: 02-24-2023 Adult depression screening assessment DEPRESSION SCREENING [facility] Start: 12-02-2022 End: 09-04-2023 ERCP ERCP Endoscopy Routine Biliary stricture Expected: 12/02/2022, Expires: 09/04/2023 [facility] Work Phone: Comment on above: Expected: 12/02/2022 , Expires: 09/04/2023 Start: 07-27-2022 DEPRESSION ASSESSMENT DEPRESSION ASS ESSMENT [facility] Start: 03-27-2022 Influenza vaccination [facility] Start: 12-30-2021 End: 03-01-2022 Amylase [Enzymatic activity/volume] in Serum or Plasma AMYLASE BLD Lab Routine Expected: 12/30/2021, Expires: 03/01/2022 [facility] Work Phone: Comment on above: Expected: 12/30/2021 , Expires: 03/01/2022 Start: 12-30-2021 End: 03-01-2022 Lipase [Enzymatic activity/volume] in Serum or Plasma LIPASE BLD Lab Routine Expected: 12/30/2021, Expires: 03/01/2022 [facility] Work Phone: Comment on above: Expected: 12/30/2021 , Expires: 03/01/2022 Start: 12-24-2021 End: 01-09-2023 Ct abdomen w/contrast material CT ABDOMEN W IVCON Radiology Routine Expected: 12/24/2021 (Approximate), Expires: 01/09/2023 [facility] Work Phone: Comment on above: Expected: 12/24/2021 (Approximate), Expires: 01/09/2023 Start: 07-27-2021 DEPRESSION ASSESSMENT DEPRESSION ASS ESSMENT [facility] Start: 07-10-2020 Adult depression screening assessment DEPRESSION SCREENING [facility] Start: 07-07-2020 MENINGOCOCCAL B: Consider based on risk (3 of 4 - Increased Risk Bexsero 2-dose series) MENINGOCOCCAL B: Consider based on risk (3 of 4 - Increased Risk Bexsero 2-dose series) [facility] Start: 03-11-2019 MENINGOCOCCAL CONJUG ATE (2 - Risk 2-dose series) MENINGOCOCCAL CONJUGATE (2 - Risk 2-dose series) [facility] Start: 2004 SHINGRIX VACCINE (1 of 2) SHINGRIX VACCINE (1 of 2) [facility] Start: 11-01-2003 ANNUAL PCP 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 BRANDON DISEASE VISIT ANNUAL PCP TEAM CHRONIC DISEASE VISIT [facility] Start: 11-01-2003 BP CONTROLLED (<130/80) BP CONTROLLE D (<130/80) [facility] Start: 1997 COVID-19 VACCINE (1) COVID-19 VACCIN E (1) [facility] Start: 1990 COVID-19 VACCINE (#1) COVID-19 VACCI NE (#1) [facility] Start: 05-02-1986 COVID-19 VACCINE (#1) COVID-19 VACCI NE (#1) [facility] Immunizations Immunization Date Immunization Notes Care Provider Fa cility 04-18-2020 influenza virus vacc ine, split virus (incl. purified surface antigen) Luis Abdalla Other [facility] Other 04-18-2020 influenza virus vacc ine, unspecified formulation [facility] 07-07-2019 meningococcal B vacc ine, recombinant, OMV, adjuvanted Nadja Spencer RN [facility] 05-20-2019 hepatitis A and hepatitis B vaccine Nadja Spencer RN [facility] 05-20-2019 influenza, injectabl e, quadrivalent, contains preservative Nadja Spencer RN [facility] 01-14-2019 haemophilus influenz ae type b vaccine, PRP-OMP conjugate Nadja Spencer RN [facility] 01-14-2019 meningococcal B vacc ine, recombinant, OMV, adjuvanted Nadja Spencer RN [facility] 01-14-2019 meningococcal oligosaccharide (groups A, C, Y and W-135) diphtheria toxoid conjugate vaccine (MCV4O) Nadja Spencer RN [facility] 01-14-2019 pneumococcal conjuga te vaccine, 13 valent Nadja Spencer RN [facility] 10-04-2018 hepatitis A and hepatitis B vaccine Nadja Spencer RN [facility] 10-04-2018 pneumococcal polysaccharide vaccine, 23 valent Nadja Spencer RN [facility] 07-01-2018 hepatitis A and hepatitis B vaccine Nadja Spencer RN [facility] 07-01-2018 influenza, injectabl e, quadrivalent, contains preservative Nadja Spencer RN [facility] 07-01-2018 pneumococcal conjuga te vaccine, 13 valent Nadja Spencer RN [facility] 07-01-2018 tetanus toxoid, redu simon diphtheria toxoid, and acellular pertussis vaccine, adsorbed Nadja Spencer RN [facility] 04-30-2009 hepatitis B vaccine, adult dosage Nadja Spencer RN [facility] Payers Date Payer Category [place]ayer [place] [id number] 2021-Present [phone] [address] [place], [place] [id number] Medicaid [id number] 2021 Medicaid [id number] 2021 Medicare MEDICARE MEDICAR E A AND B [id number] 2021-Present [phone] [address] [address] [place] [address] Medicare [id number] 2021 Medicare [id number] 2021 Medicaid [id number] 2021 Medicare [id number] 2020 Medicaid UHC MEDICAID UHC [employer] MEDICAID [id number] 2020-Present [phone] [address] [place] [address] Medicaid [id number] 1985 Unknown [id number] 1985 Unknown [id number] 1985 Unknown [id number] 1985 Unknown [id number] 1985 Unknown [id number] 1985 Unknown [id number] 1985 Unknown [id number] 1985 Unknown [id number] 1985 Unknown [id number] 1959 Unknown [id number] Self-pay Self Pay [id number] Social History Date Type Detail Facility Start: 05-04-2018 End: 02-29-2024 Tobacco smoking status [facility] Never smoked tobacco [facility] Start: 05-04-2018 Tobacco use and exposure Former smokeless tobacco user [facility] Start: 09-17-2021 End: 09-04-2022 Alcohol intake Current drinker of alcohol (finding) [facility] Start: 07-05-2021 History SDOH Alcohol Comment occasionally [facility] Start: 1985 Sex Assigned At Not on file [facility] Start: 10-20-2021 End: 2021 Exposure to SARS-CoV-2 (event) Not sure [facility] Sex Assigned At [facility] Tobacco smoking status [facility] Start: 1985 Sex Assigned At Male F [facility] Start: 11-07-2009 End: 09-02-2024 Sex [facility] (finding) [facility] [facility] Medical Equipment Procedure Code Equipment Code Equipment Origin al Text Equipment Identifier Dates Stent Axios 15mm 24mm 138mm 10.8fr Nitinol Silicone 10mm 146mm Pancreatic - [id number] Start: 11-01-2021 Stent 10fr Duode nal Bend Plastic 12cm Biliary Temporary Rapid Exchange - [id number] Start: 09-04-2022 Spinal fixation plate, non-bioabsorbable ()[id number] FDA Start: 02-25-2021 Spinal fixation plate, non-bioabsorbable ()[id number] FDA Start: 02-25-2021 Intervertebral-b josesito internal spinal fixation system ()[id number] FDA Start: 02-25-2021 Intervertebral-b josesito internal spinal fixation system [id number] [facility] Start: 02-25-2021 Functional Status Date Assessment Result Facility 06-20-2023 Functional Status N/A [facility] Clinical Notes 07-25-2019 to 01-26-2025 Note Date & Type Note Facility 01-26-2025 Evaluation + Plan note Extrac edwardo from: Title:ED Note Author:Reynaldo Lopez PA-C te:01/26/25 Back pain (M54.9: Dorsalgia, unspecified) Orders: predniSONE, 60 mg = 3 tab(s), Oral, Daily, X 7 day(s), # 21 tab(s), Refills(s) 0, [facility]acy: [id number], 113.4, cm, 01/26/25 11:00:00 EDT, Height/Length Dosing, 185.4, kg, 01/26/25 11:00:00 EDT, Weight Dosing XR Spine Lumbosacral 2 or 3 Views Future Appointments Appointment Date:01/31/2025 09:30:00 AM Scheduled Provider: Location:[facility] Physical Tx Appointment Type:PT 45 (FT) Appointment Date:02/01/2025 09:30:00 AM Scheduled Provider: Location:[facility] Physical Tx Appointment Type:PT 45 (FT) Appointment Date:02/03/2025 09:00:00 AM Scheduled Provider: Location:[facility] Appointment Type:PT Re-Eval 45 (FT) [facility] 07-03-2025 Hospital Discharge instructions Patient Education 01/26/2025 11:40:59 Acute Back Pain, Adult Acute Back Pain, Adult Acute back pain is sudden and usually short-lived. It is often caused by an injury to the muscles and tissues in the back. The injury may result from: A muscle, tendon, or ligament getting overstretched or torn. Ligaments are tissues that connect bones to each other. Lifting something improperly can cause a back strain. Wear and tear (degeneration) of the spinal disks. Spinal disks are circular tissue that provide cushioning between the bones of the spine (vertebrae). Twisting motions, such as while playing sports or doing yard work. A hit to the back. Arthritis. You may have a physical exam, lab tests, and imaging tests to find the cause of your pain. Acute back pain usually goes away with rest and home care. Follow these instructions at home: Managing pain, stiffness, and swelling Take albk-mcb-bimloom and prescription medicines only as told by your health care provider. Treatment may include medicines for pain and inflammation that are taken by mouth or applied to the skin, or muscle relaxants. Your health care provider may recommend applying ice during the first 24 48 hours after your pain starts. To do this: ?Put ice in a plastic bag. ?Place a towel between your skin and the bag. ?Leave the ice on for 20 minutes, 2 3 times a day. ?Remove the ice if your skin turns bright red. This is very important. If you cannot feel pain, heat, or cold, you have a greater risk of damage to the area. If directed, apply heat to the affected area as often as told by your health care provider. Use theheat source that your health care provider recommends, such as a moist heat pack or a heating pad. ?Place a towel between your skin and the heat source. ?Leave the heat on for 20 30 minutes. ?Remove the heat if your skin turns bright red. This is especially important if you are unable to feel pain, heat, or cold. You have a greater risk of getting burned. Activity Do not stay in bed. Staying in bed for more than 1 2 days can delay your recovery. Sit up and stand up straight. Avoid leaning forward when you sit or hunching over when you stand. ?If you work at a desk, sit close to it so you do not need to lean over. Keep your chin tucked in. Keep your neck drawn back, and keep your elbows bent at a 90-degree angle (right angle). ?Sit high and close to the steering wheel when you drive. Add lower back (lumbar) support to your car seat, if needed. Take short walks on even surfaces as soon as you are able. Try to increase the length of time you walk each day. Do not sit, drive, or filling hauler one place for more than 30 minutes at a time. Sitting or standing for long periods of time can put stress on your back. Do not drive or use heavy machinery while taking prescription pain medicine. Use proper lifting techniques. When you bend and lift, use positions that put less stress on your back: ?Bend your knees. ?Keep the load close to your body. ?Avoid twisting. Exercise regularly as told by your health care provider. Exercising helps your back heal faster andhelps prevent back injuries by keeping muscles strong and flexible. Work with a physical therapist to make a safe exercise program, as recommended by your health care provider. Do any exercises as told by your physical therapist. Lifestyle Maintain a healthy weight. Extra weight puts stress on your back and makes it difficult to have good posture. Avoid activities or situations that make you feel anxious or stressed. Stress and anxiety increase muscle tension and can make back pain worse. Learn ways to manage anxiety and stress, such as through exercise. General instructions Sleep on a firm mattress in a comfortable position. Try lying on your side with your knees slightlybent. If you lie on your back, put a pillow under your knees. Keep your head and neck in a straight line with your spine (neutral position) when using electronicequipment like smartphones or pads. To do this: ?Raise your smartphone or pad to look at it instead of bending your head or neck to look down. ?Put the smartphone or pad at the level of your face while looking at the screen. Follow your treatment plan as told by your health care provider. This may include: ?Cognitive or behavioral therapy. ?Acupuncture or massage therapy. ?Meditation or yoga. Contact a health care provider if: You have pain that is not relieved with rest or medicine. You have increasing pain going down into your legs or buttocks. Your pain does not improve after 2 weeks. You have pain at night. You lose weight without trying. You have a fever or chills. You develop nausea or vomiting. You develop abdominal pain. Get help right away if: You develop new bowel or bladder control problems. You have unusual weakness or numbness in your arms or legs. You feel faint. These symptoms may represent a serious problem that is an emergency. Do not wait to see if the symptoms will go away. Get medical help right away. Call your local emergency services (911 in the [place] Do not drive yourself to the hospital. Summary Acute back pain is sudden and usually short-lived. Use proper lifting techniques. When you bend and lift, use positions that put less stress on your back. Take knhh-fzs-cihpfdx and prescription medicines only as told by your health care provider, and apply heat or ice as told. This information is not intended to replace advice given to you by your health care provider. Make sure you discuss any questions you have with your health care provider. Document Revised: 10/04/2021 Document Reviewed: 10/04/2021 [employer]xo Patient Education 2023 [employer]. Follow Up Care 01/26/2025 10:51:38 With:LUIS ABDALLA Address: [facility] [facility] [place] [address]- Business (1) When:01/29/2025 11:34:25 [facility] 07-03-2025 NoteED Patient Education Note Orthopedics Acute Back Pain, Adult Acute back pain is sudden and usually short-lived. It is often caused by an injury to the muscles and tissues in the back. The injury may result from: ??? A muscle, tendon, or ligament getting overstretched or torn. Ligaments are tissues that connectbones to each other. Lifting something improperly can cause a back strain. ??? Wear and tear (degeneration) of the spinal disks. Spinal disks are circular tissue that providecushioning between the bones of the spine (vertebrae). ??? Twisting motions, such as while playing sports or doing yard work. ??? A hit to the back. ??? Arthritis. You may have a physical exam, lab tests, and imaging tests to find the cause of your pain. Acute back pain usually goes away with rest and home care. Follow these instructions at home: Managing pain, stiffness, and swelling ??? Take vobe-lpm-xzowkpp and prescription medicines only as told by your health care provider. Treatment may include medicines for pain and inflammation that are taken by mouth or applied to the skin, or muscle relaxants. ??? Your health care provider may recommend applying ice during the first 24?48 hours after your pain starts. To do this: ? Put ice in a plastic bag. ? Place a towel between your skin and the bag. ? Leave the ice on for 20 minutes, 2?3 times a day. ? Remove the ice if your skin turns bright red. This is very important. If you cannot feel pain, heat, or cold, you have a greater risk of damage to the area. ??? If directed, apply heat to the affected area as often as told by your health care provider. Usethe heat source that your health care provider recommends, such as a moist heat pack or a heating pad. ? Place a towel between your skin and the heat source. ? Leave the heat on for 20?30 minutes. ? Remove the heat if your skin turns bright red. This is especially important if you are unable to feel pain, heat, or cold. You have a greater risk of getting burned. Activity ??? Do not stay in bed. Staying in bed for more than 1?2 days can delay your recovery. ??? Sit up and stand up straight. Avoid leaning forward when you sit or hunching over when you stand. ? If you work at a desk, sit close to it so you do not need to lean over. Keep your chin tucked in.Keep your neck drawn back, and keep your elbows bent at a 90-degree angle (right angle). ? Sit high and close to the steering wheel when you drive. Add lower back (lumbar) support to your car seat, if needed. ??? Take short walks on even surfaces as soon as you are able. Try to increase the length of time you walk each day. ??? Do not sit, drive, or filling hauler one place for more than 30 minutes at a time. Sitting or standing for long periods of time can put stress on your back. ??? Do not drive or use heavy machinery while taking prescription pain medicine. ??? Use proper lifting techniques. When you bend and lift, use positions that put less stress on your back: ? Bend your knees. ? Keep the load close to your body. ? Avoid twisting. ??? Exercise regularly as told by your health care provider. Exercising helps your back heal fasterand helps prevent back injuries by keeping muscles strong and flexible. ??? Work with a physical therapist to make a safe exercise program, as recommended by your health care provider. Do any exercises as told by your physical therapist. Lifestyle ??? Maintain a healthy weight. Extra weight puts stress on your back and makes it difficult to havegood posture. ??? Avoid activities or situations that make you feel anxious or stressed. Stress and anxiety increase muscle tension and can make back pain worse. Learn ways to manage anxiety and stress, such as through exercise. General instructions ??? Sleep on a firm mattress in a comfortable position. Try lying on your side with your knees slightly bent. If you lie on your back, put a pillow under your knees. ??? Keep your head and neck in a straight line with your spine (neutral position) when using electronic equipment like smartphones or pads. To do this: ? Raise your smartphone or pad to look at it instead of bending your head or neck to look down. ? Put the smartphone or pad at the level of your face while looking at the screen. ??? Follow your treatment plan as told by your health care provider. This may include: ? Cognitive or behavioral therapy. ? Acupuncture or massage therapy. ? Meditation or yoga. Contact a health care provider if: ??? You have pain that is not relieved with rest or medicine. ??? You have increasing pain going down into your legs or buttocks. ??? Your pain does not improve after 2 weeks. ??? You have pain at night. ??? You lose weight without trying. ??? You have a fever or chills. ??? You develop nausea or vomiting. ??? You develop abdominal pain. Get help right away if: ??? You develop new bowel or bladder control problems. ??? Y (more content not included)...[facility]11-25-2023 Hospital Discharge instructions Patient Education 06/20/2023 18:04:25 Foot Sprain [...] sprain depends on how much of the ligamentwas damaged or torn. What are the causes? [...] your health care provider approves. Ask your healthcare provider if you may take showers. You [...] you. Do exercises as told by your healthcare provider. Gradually increase how much and how far you walk until your health care provider says it is safe toreturn to full activity. Driving Ask your health care provider if the medicine prescribed to you requires you to avoid driving or using machinery. Ask your health care provider when it is safe to drive if you have a bandage, splint, boot, or saurabh your foot. General instructions Take isxr-eaa-signval and prescription medicines only as told by [...] provider. Document Revised: 11/02/2020 Document Reviewed: 11/02/2020 doxo Patient Education 2022 [employer]. 06/20/2023 18:04:25 Elastic Bandage and RICE Therapy [...] health care provider about how you should limityour activities and whether you should start wvmwx-dh-ewdtdp exercises for your injury. Ice Ice your [...] evaluation or imaging tests, such as X-rays jeny MRI. Sometimes, X-rays may not show a small broken bone (fracture) until days after the injury happened. Make a follow-up appointment with your health care provider. Ask your health care provider,or the department that is doing the imaging test, when your results will be ready. Get help right away if: You have sudden severe pain at or below the area of your injury. You have redness or increased swelling around your injury. You have tingling or numbness at or below the area of your injury and it does not improve after youremove the elastic bandage. Summary Elastic bandages provide [...] and elevation. This treatment is recommended for theroutine care of many injuries. This information is not intended to replace advice given to you by your health care provider. Make sure you discuss any questions you have with your health care provider. Document Revised: 09/07/2020 Document Reviewed: 04/02/2018 [employer] Patient Education 2020 [employer] 06/20/2023 18:04:25 Ankle Sprain, Phase II Rehab Ankle Sprain, Phase II Rehab An ankle sprain is an injury to tissue that connects bone to bone (a ligament) in the ankle. Ankle sprains usually cause stiffness, loss of motion, and loss of strength. Ask your health care providerwhich exercises are safe for you. Do exercises exactly as told by your health care provider and adjust them as directed. It is normal to feel mild stretching, pulling, tightness, or discomfort as youdo these exercises. Stop right away if you feel sudden pain or your pain gets worse. Do not begin these exercises until told by your health care provider. Stretching and agwdh-ax-qtysrb exercises These exercises warm up your muscles [...] balance board. This exercise uses a balance boardto rotate the foot and ankle inward (inversion) [...] provider. Document Revised: 09/05/2021 Document Reviewed: 09/05/2021 [employer] Patient Education 2022 [employer]. 06/20/2023 18:04:25 Ankle Sprain, Phase I Rehab Ankle Sprain, Phase I Rehab An ankle sprain is an injury to the ligaments of your ankle. Ankle sprains cause stiffness, loss ofmotion, and loss of strength. Ask your health [...] begin these exercises until told by your healthcare provider. Stretching and bnvat-bc-oczowu exercises These exercises warm up your muscles and joints and improve the movement and flexibility of your lower leg and ankle. These exercises also help to relieve pain and stiffness. Gastroc and soleus stretch This exercise is also called a calf stretch. It stretches the muscles in the back of the lower leg.These muscles are the gastrocnemius, or gastroc, and [...] top of your foot toward your kirby (dorsiflexion),and pulling the band tighter. 4.Hold this position [...] provider. Document Revised: 09/05/2021 Document Reviewed: 09/05/2021 [employer]xo Patient Education 2022 [employer]. 06/20/2023 18:04:25 Ankle Sprain Ankle Sprain An ankle sprain is a stretch or tear in a ligament in the ankle. Ligaments are tissues that connectbones to each other. The two most common [...] foot, or if your foot becomes cold andblue. Managing pain, stiffness, and swelling Take dqsp-mbg-lmtahpq and prescription medicines only as told by [...] contain nicotine or tobacco, such as cigarettes, e- cigarettes, and chewing tobacco. If you need help [...] in the ankle. Ligaments are tissues that connectbones to each other. This condition is often [...] provider. Document Revised: 09/05/2021 Document Reviewed: 09/05/2021 [employer]xo Patient Education 2022 [employer] Follow Up Care 06/20/2023 15:55:18 With:LUIS ABDALLA Address: [facility] [place] [id number] Business (1) When:06/23/2023 17:48:00 Comments:Follow-up with your primary care provider in 3 to 5 days. If symptoms worsen, do not improve, or new symptoms arise please report back to emergency department for further evaluation. [facility]11-25-2023 Evaluation + Plan noteExtracted from: Title:ED Note Author:Dilan Adames PA-C te:06/20/23 Left ankle sprain (S93.402A: Sprain of unspecified ligament of left ankle, initial encounter) Sprain of left foot (S93.602A: Unspecified sprain of left foot, initial encounter) Orders: [employer] [facility]11-16-2023 Evaluation note* Encounter Date Diagnosis Assessment [...] CBD obstruction May, Nausea (ICD-10 - R11.0) Health: [facility] Other 08-10-2023 Evaluation note* Encounter Date Diagnosis Assessment Notes [...] < 140/90 and HR less than 90 Health: [facility] Other 02-27-2023 Miscellaneous Notes* Telephone Encounter - 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 RN - 09/22/2022 11:30 AM EST Called and left patient regarding referral to [facility] clinic. Call back number provided. G5 message with the details also sent. 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 RN September 22, 2022 11:32 AM documented in this encounterNation[facility]* Encounter Date Diagnosis Assessment [...] recipient (ICD-10 - Z94.4) No s/s rejection Health: [facility] Other 02-09-2023 Miscellaneous Notes* Telephone Encounter - Betina Barr MD - 09/04/2022 2:03 PM EST Stent change with bruna documented in this encounterNationwide [facility]10-07-2022 Miscellaneous Notes* Telephone Encounter - Nadja [...] [facility]. Thank you, Lorena Adames [facility] [phone] documented in this encounterNationwide [facility]08-29-2022 Miscellaneous Notes* Telephone Encounter - Nadja Spencer RN - 03/24/2022 1:17 PM EDT I sent patient a reminder to have lab work drawn as soon as possible as he has not had labs drawn in some time. Encouraged him to reach out with questions. Nadja Spencer RN (Cassie), BSN Liver Boiler Tester documented in this encounterNationwide Children'[facility] Hospital08-16-2022 Miscellaneous Notes* Telephone Encounter - Nadja [...] to. Nadja Spencer RN (Cassie), BSN Liver Boiler Tester documented in this encounterNationwide Children'[facility] Hospital08-02-2022 NoteHNO ID: [id number] Author: SHAQ Chua Service: ? Author Type: Coach Type: Progress Notes Filed: 02/25/2022 10:46 AM Note Text: [facility] Assessment Visit Type:Virtual Visit utilizing two-way audio and video for at least a portion of the visit IDENTIFYING INFORMATION: [phone] [email or web address] Lives with of nine years, Екатерина and [...] consented to virtual evaluation. Patient and this life underwriter present during interview. PRECIPITATING PROBLEM(S):Patient was dx with liver disease in 2017. Completed an IOP at [facility] in summer 2018, and received liver [...] Age 16, every other weekend. Went to [employer] for college drank heavily on weekends, then [...] from its effects? Yes (more content not included)...[phone] History of Present illness Narrative* SHAQ Chua - 02/25/2022 9:21 AM EDT [facility] Assessment Visit Type:Virtual Visit utilizing two-way audio and video for at least a portion of the visit IDENTIFYING INFORMATION: [phone] [email or web address] Lives with of nine years, Екатерина andone daughter age five Duration of Interview: start time 9:15 and end time 10:30 pm REFERRAL SOURCE: SHAQ Jaimes liver transplant team BENEFITS: Payor: MEDICARE / Plan: MEDICARE A AND B / Product Type: Medicare / INFORMED CONSENT: Patient completed evaluation via virtual MyChart encounter due to COVID-19. Patient verbally consented to virtual evaluation. Patient and this life underwriter present during interview. PRECIPITATING PROBLEM(S):Patient was dx with liver disease in 2017. Completed an IOP at [facility] in summer 2018, and received liver [...] Age 16, every other weekend. Went to [employer] for college drank heavily on weekends, then [...] MEDICATIONS: none PRIOR CHEMICAL DEPENDENCY TREATMENTS: Yes: [facility] in 2019 TWELVE STEP HISTORY: -Longest period [...] None FAMILY/DEVELOPMENTAL HISTORY: -Born/Raised in (City, State): [place], [place]. Grew up on a farm Biological [...] No EMPLOYMENT HISTORY: -Currently employed? 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 No - Are you in need of assistance to identify and explore career interests, aptitudes, and skills andto formulate immediate and intermediate designer vocational goals? No MARITAL HISTORY: Екатерина -Children: [...] SPIRITUAL ASSESSMENT: -Raised in this Shinto Background: [employer] Current Spiritual/Shinto Practices: yes -Belief in a [...] things - anyone or anything (e.g., family, episcopal, pain of ) - that stopped you [...] suicide or other suicidal behavior. From The [employer] Practice Guidelines for the Assessment [...] affiliation (See spiritual assessment section above) Therapeutic [place]: Does pt believe treatment can help his/her [...] THROMBOSIS IMAGING VENOGRAM BILATERAL Luis Jose Rm, PAIN: Are you experiencing any pain [...] with SI at this time. SIGNATURE: SHAQ Cuha DATE: 02/25/2022 I spent a total of sisty minutes on the date of the service which included wgpy-yd-inbm patient care and completing clinical documentation. documented in this encounterNationwide Children'[facility] Hospital07-28-2022 History of Present illness Narrative* SHAQ [...] Patient states he went through IOP at [facility] and did not have a good experience. SW recommended Jaquelin [facility] IOP to patient and he is agreeable to trying this program. SW provided contact info and also emailed Jaquelin with this referral. Patient states he will also continue to go to his weekly home groupAA session every Thur at 8pm in [facility]. SW encouraged clt to reach out with any further questions or concerns. SHAQ Jaimes-S Liver Transplant Social Work documented in this encounterNationwide Children'S Hospital07-28-2022 History of Present illness Narrative* SHAQ Jaimes - 02/20/2022 10:05 AM EDT Patient scheduled for virtual follow up visit with DEONDRE today at 1pm. Patient left 2 messages via [employer] cancelling appointment due to time conflict. SHAQ [facility] Social Work documented in this encounterNationwide [facility]06-03-[facility] History of Present illness Narrative* RT Theodore(R) [...] 2021 TIME: 12:54 PM documented in this encounterNationwide Children'S Hospital05-23-2022 History of Present illness Narrative* Aidan [...] IS. I spent more than 20 minutes [id number] with the patient and over half the time was devoted to counseling and/or coordination of care. Aidan Larios MD documented in this encounterNationwide Children'S Hospital04-15-2022 Miscellaneous Notes* Telephone Encounter - Nadja Spencer RN - 11/08/2021 3:18 PM EDT Patient returned my text and said that he will be unavailable on 11/12, as he and his family just arrived at [facility]. He will be available for virtual visit on 11/19. I notified scheduling. Nadja Spencer (Cassie) RN, BSN Liver Boiler Tester * Telephone Encounter - Nadja Spencer RN - 11/08/2021 2:23 PM EDT I called and LMOM and sent patient a text to follow up with him from [facility]. I let him know that I'd be setting him up for a follow up virtual visit with Dr. Larios. Encouraged him to call back with questions or as needed. Nadja Spencer (Cassie) RN, BSN Liver Boiler Tester documented in this encounterNationwide Children'S Hospital12-17-2021 NoteHNO ID: [id number] Author: Saba Hills MD Service: Hospital Medicine Author Type: Physician Type: Plan of Care Filed: 07/12/2021 9:21 AM Note Text: # Acute Pancreatitis- in setting of biliary stenosis. Resolved. Last amylase was 59 Per recommendation of GI we initially plan to transfer to [facility] for ERCP but that was later canceled [...] Vision MRI was negative Will discuss with craft coordinator We will also consult ID ? Need to look for CMV retinitis Saba Hills MD ?[facility] CenterPstbxsll30-05-5167 NoteHNO ID: [id number] Author: Maninder Aguilera DO Service: Hospital Medicine Author Type: Physician Type: Progress Notes Filed: 07/11/2021 10:58 AM Note Text: DEPARTMENT OF HOSPITAL MEDICINE PROGRESS NOTE SERVICE DATE: 07/11/2021 SERVICE TIME: 10:15 AM Hospital Medicine/Primary Attending: Maninder Aguilera DO NIGHT AND WEEKEND COVERAGE: [employer] COVER[employer]: : [phone], please contact via [employer] Nights: [phone], please page CC Hospitalist Night coverage pager [phone] Subjective INTERVAL HPI: pt seen at bedside. [...] VTE Prophylaxis/Anticoagulants 07/09/21 1245 pneumatic compression stockings (mi,oh) VTE Prophylaxis: VTE prophylaxis appropriate Disposition: Home Plan of care discussed with Provider, RN, Patient SIGNATURE: Maninder Aguilera DO PATIENT NAME: Chuckie Villalta DATE: July 11, 2021 TIME: 10:15 [facility] CenterDlzicytz12-49-5836 NoteHNO ID: [id number] Author: Saba Hills MD Service: Hospital Medicine Author Type: Physician Type: Progress Notes Filed: 07/11/2021 5:13 AM Note Text: HOSPITAL MEDICINE PROGRESS NOTE Saba Hills MD NIGHT AND WEEKEND COVERAGE: [employer] COVERAGE: Days: [phone], please contact via [employer] Nights: [phone], please page CC Hospitalist Night coverage pager [phone] Subjective HPI: Interval Events: has pain abdomen [...] sounds + EXTREMITY: : No ankle edema. COMMUNITY RECREATION COORDINATOR: grossly normal. No focal deficit. Lines, Drains, [...] and GI GI is planning ERCP at [facility] as outpatient 2. History of hemochromatosis and [...] VTE Prophylaxis/Anticoagulants 07/09/21 1245 pneumatic compression stockings (mi,oh) VTE Prophylaxis: VTE prophylaxis appropriate. Advised to ambulate as tolerated. Plan of care discussed with: Patient, Family/Significant Other: at bedside, RN and Consultants: Neurology, Nephro, GI Saba Hills MD 07/10/2021 11:00 AM Please use Secure messaging to contact me between 7:30 AM and 4:30 PM [facility] CenterKxzrhsgv36-83-8724 NoteHNO ID: [id number] Author: Jolynn Jaquez MD Service: Hospital Medicine Author Type: Physician Type: Progress Notes Filed: 07/09/2021 6:55 PM Note Text: HOSPITAL MEDICINE PROGRESS NOTE NIGHT AND WEEKEND COVERAGE: [employer] COVERAGE: Days: [phone], please contact via [employer] Nights: [phone], please page CC Hospitalist Night coverage pager [phone] Hospital Medicine/Primary Attending: Jolynn Jaquez MD Subjective [...] sounds + EXTREMITY: : No ankle edema. COMMUNITY RECREATION COORDINATOR: grossly normal. No focal deficit. Lines, Drains, [...] Had leucocytosis initially, was started on antibiotics. Dwayne cipro, flagyl. GI consulted. Leucocytosis resolved (also, improving thrombocytopenia ). LFTs improved. Afebrile. No growth on blood cultures so far. USG right upper quadrant done to r/o obstruction. Advance diet today to full liquid, advance tomorrow as tolerated. Appreciate Pain management input. Discussed with GI regarding scheduling of ERCP outpatient. Patient to be scheduled at [facility] [place]. Consider starting heparin subq for prophylaxis tomorrow [...] showed no acute process. Discussed with Neuro mailing section clerk. Plan to follow up outpatient with Neuro, [...] Villalta DATE: July 09, 2021 TIME: 4:16 [facility] HospitalCscroxrh37-31-0855 NoteHNO ID: [id number] Author: Tani Woodward MD, PhD Service: Neurology [...] Woodward MD, PhD July 09, 2021 3:20 [facility] HospitalJlxfwxiz42-69-0559 NoteHNO ID: [id number] Author: Isa San RDMS, RVT Service: Radiology Author Type: Scientific Informatics Project Leader Type: Progress Notes Filed: 07/08/2021 12:04 PM [...] San RDMS, ARLENE July 08, 2021 12:03 [facility] HospitalYcezqypz85-37-4972 NoteHNO ID: [id number] Author: Jolynn Jaquez MD Service: Hospital Medicine Author Type: Physician Type: Progress Notes Filed: 07/08/2021 11:56 AM Note Text: HOSPITAL MEDICINE PROGRESS NOTE NIGHT AND WEEKEND COVERAGE: [employer] COVERAGE: Days: [phone], please contact via [employer] Nights: [phone], please page CC Hospitalist Night coverage pager [phone] Hospital Medicine/Primary Attending: Jolynn Jaquez MD Subjective [...] tenderness in EXTREMITY: : No ankle edema. COMMUNITY RECREATION COORDINATOR: grossly normal. No focal deficit. Cranial nerves [...] Problems as of 07/08/2021 Noted - Resolved [facility] * (Principal) Acute pancreatitis 07/05/2021 - [...] is still waiting to be transferred to [facility]). Pain management consult. YOAN on [...] Villalta DATE: July 08, 2021 TIME: 11:30 [facility] HospitalOyuawstp69-67-9781 NoteHNO ID: [id number] Author: Jolynn Jaquez MD Service: Hospital Medicine Author Type: Physician Type: Progress Notes Filed: 07/07/2021 3:10 PM Note Text: HOSPITAL MEDICINE PROGRESS NOTE NIGHT AND WEEKEND COVERAGE: [employer] COVERAGE: Days: [phone], please contact via [employer] Nights: [phone], please page CC Hospitalist Night coverage pager [phone] Hospital Medicine/Primary Attending: Jolynn Jaquez MD Subjective HPI: Interval Events: MORALE OFFICER and prn dilaudid helping with pain abdomen. [...] minimal palpation EXTREMITY: : No ankle edema COMMUNITY RECREATION COORDINATOR: grossly normal. No focal deficit. Lines, Drains, and Airways Line Peripheral 07/05/21 1811 Right Antecubital 20 Gauge 1 day Peripheral 07/05/21 1923 Short Left Antecubital 20 Gauge 1 day Reviewed lines and needs to be continued: REASONS: Intravenous fluids Medications: Reviewed Diagnostic tests reviewed: Most recent imaging Most recent labs Assessment AND Plan Active Hospital Problems as of 07/07/2021 Noted - Resolved [facility] * (Principal) Acute pancreatitis 07/05/2021 - Present [...] input Patient waiting to be transferred to [facility]. Likely needs ERCP. Pain control with fentanyl MORALE OFFICER, dilaudid prn Close monitoring ? Hemochromatosis 03/18/2018 [...] to get update regarding bed availability at [facility]. No bed assigned at [facility] yet. SIGNATURE: Jolynn Jaquez MD PATIENT NAME: Chuckie Villalta DATE: July 07, 2021 TIME: 2:59 [facility] HospitalGvhjtuno58-13-3341 NoteHNO ID: [id number] Author: Roma Horan MD Service: Hospital Medicine Author Type: Physician Type: Progress Notes Filed: 07/06/2021 12:47 PM Note Text: DEPARTMENT OF HOSPITAL MEDICINE PROGRESS NOTE SERVICE DATE: 07/06/2021 SERVICE TIME: 12:43 PM Hospital Medicine/Primary Attending: Roma Horan MD NIGHT AND WEEKEND COVERAGE: [employer] COVERAGE: Days: [phone], please contact via [employer] Nights: [phone], please page CC Hospitalist Night coverage pager [phone] Subjective INTERVAL HPI: c/o 8/10 abdominal pain. [...] INTRAVENOUS q 6 H PRN - fentaNYL MORALE OFFICER 20 mcg/mL in NaCl 0.9% 100 mL [...] a noncontrast examination - Patient accepted to [facility] when bed available - IV fluids, NPO except meds - symptom management - Vanco, cipro, flagyl started in ED--c/w same for now. Leukocytosis resolved today -improving lipase - Consult GI, pending [facility] transfer, appreciate recs. May need ERCP -called [...] recipient (HCC) Assessment AND Plan: seen at [facility], admits some noncompliance with medications as of late, and rare alcohol use [facility] - continue prograf. Will hold Actigall while NPO ? Primary hypertension Assessment AND Plan: elevated in ED, likely due to pain and missed doses - resume po antihypertensives as able - manage pain as able Medication and Non-Pharmacologic VTE Prophylaxis/Anticoagulants VTE Prophylaxis: VTE prophylaxis appr (more content not included)...[facility] CenterQeaqwgtg14-23-0782 NoteHNO ID: [id number] Author: Interface Note Service: ? Author Type: ? Type: Progress Notes Filed: 07/06/2021 2:53 AM Note Text: Epic Scheduled Downtime: 07/06/2021 1:00:00 AM to 07/06/2021 2:38:59 [facility] HospitalChqeuasc29-36-9476 NoteHNO ID: [id number] Author: Lisseth Raymond APRN.DIGITAL STRATEGY SPECIALIST Service: Hospital Medicine Author Type: Nurse Practitioner Type: Plan of Care Filed: 07/05/2021 11:59 PM Note Text: Patient's pain not being controlled with prn dilaudid. Per Up to Date, MORALE OFFICER recommended and fentanyl the safest drug to use for this purpose I discussed case with Dr Shook, I also discussed with the NOM and the pharmacist. A MORALE OFFICER pump ordered. Lisseth Raymond APRN.[facility] HospitalGgyitvap93-20-0800 NoteHNO ID: [id number] Author: FLORENTINO Dickinson) Service: ? Author Type: Technologist Type: Progress [...] BY: RT Alok(R) July 05, 2021 11:38 [facility] HospitalXxfkjcig45-63-1147 NoteHNO ID: [id number] Author: FLORENTINO Fairchild) Service: Radiology Author Type: [...] BY: RT Devorah(R) July 05, 2021 7:00 [facility] HospitalEqwscspa69-09-0556 History of Past illness Narrative* Problem Noted [...] of this encounter (statuses as of 11/08/2021) [facility] of [facility] illness Narrative* Problem [...] of this encounter (statuses as of 12/16/2021) [facility] of [facility] Narrative* Problem [...] of this encounter (statuses as of 12/28/2021) [facility] of [facility] Narrative* Problem [...] of this encounter (statuses as of 12/28/2021) [facility] Narrative* Problem [...] of this encounter (statuses as of 02/20/2022) [facility] Narrative* Problem [...] of this encounter (statuses as of 02/25/2022) [facility] Narrative* Problem [...] of this encounter (statuses as of 03/11/2022) [facility] Narrative* Problem [...] of this encounter (statuses as of 03/24/2022) [facility] Narrative* Problem [...] of this encounter (statuses as of 05/05/2022) [facility] Narrative* Problem [...] of this encounter (statuses as of 07/28/2022) [facility] Narrative* Problem [...] of this encounter (statuses as of 09/04/2022) [facility] Narrative* Problem [...] of this encounter (statuses as of 09/04/2022) [facility] Narrative* Problem [...] of this encounter (statuses as of 09/22/2022) [facility] note* Diagnosis Liver replaced by transplant (HCC)- Primary Liver replaced by transplant documented in this encounter [facility] note* Diagnosis Liver replaced by transplant (HCC)- Primary Liver replaced by transplant Need for prophylactic immunotherapy documented in this encounter [facility] note* Diagnosis Uncomplicated alcohol dependence (HCC) Other and unspecified alcohol dependence, unspecified drinking behavior documented in this encounter [facility] note* Diagnosis Liver transplant recipient (HCC)- Primary documented in this encounter [facility] note* Diagnosis 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 documented in this encounter [facility] noteNo assessment information availableSalem [facility] Work Phone: Evaluation note* Diagnosis Onset Date Resolution Status Admit Date Hypertension acute August 2:02pm Liver transplant rejection acute September 02, 2024 2:02pm Mid back pain on left side acute September 02, 2024 2:02pm Wellness examination acute Febr 2024 2:02pm [facility] Work Phone: Evaluencyh note* Diagnosis Onset Date Resolution Status Admit Date Cervical spondylosis acute February 17, 2025 10:04am Hypertension acute February 17, 10:04am Liver transplant rejection acute February 17, 2025 10:04am Lumbar spondylosis acute January 252024 10:04am Post-traumatic arthritis of left foot acute February 17, 2025 10:04am [facility] Work Phone: Hisomcp general Narrative - Reported* Type Description Date [...] STENT PLACEMENT 2019 Surgical History COLONOSCOPY 2018 Hospitalization History [facility]: [place] Other Hisrvqq general Narrative - Reported* Type Description Date [...] stent replaced 11/2022 Hospitalization History [facility]: [place] Other History general Narrative - Reported* Type [...] History ERCP 02/2023 Hospitalization History [facility]: [place] Other Hospital course Narrative No data available for this section [facility] No data available for this section [facility] (narrative)* Outpatient Procedure (Routine) - Pending Review Specialty Diagnoses / Procedures Referred By Vale lopez Referred To Contact [facility] Diagnoses Biliary stricture Procedures ERCP ERCP DX COLLECTION SPECIMEN BRUSHING/WASHING Betina Barr MD [address] [address] [facility] [address] [place] [address] Referral ID Status Reason Start Date Expiration Date Visits Requested Visits Authorized [id number] Pending Review Auto-Generat ed Referral 12/02/2022 09/04/2023 1 1 [facility] (n[facility]ative)No reason for referral information availableSalem City Hospital Work Phone: Summary Purpose Family History No Family History Records Found Relationship Condition Age at Onset Recorded Date/T sowmya father Malignant neoplasm of colon Unknown Hypertension Unknown mother Hypertension Unknown Myocardial infarction Unknown brother Epilepsy Unknown Advance Directives No Advanced Directives Records FoundDocuments on File Type Date Recorded Patient Recruiter Account Manager Expl anation Advance Directive(s) 10/30/2021 12:47 PM Advance Directive(s) 07/05/2021 6:47 PM Advance Directive(s) 07/16/2020 12:03 PM Advance Directive(s) 05/02/2020 10:37 AM Advance Directive(s) 07/10/2019 5:35 PM Advance Directive(s) 01/21/2019 3:11 PM Advance Directive(s) 10/06/2018 10:21 AM Advance Directive(s) 07/13/2018 6:11 AM Documents on File Type Date Recorded Patient Recruiter Account Manager Expl anation Advance Directive(s) 10/30/2021 12:47 PM Advance Directive(s) 07/05/2021 6:47 PM Advance Directive(s) 07/16/2020 12:03 PM Advance Directive(s) 05/02/2020 10:37 AM Advance Directive(s) 07/10/2019 5:35 PM Advance Directive(s) 01/21/2019 3:11 PM Advance Directive(s) 10/06/2018 10:21 AM Advance Directive(s) 07/13/2018 6:11 AM Documents on File Type Date Recorded Patient Recruiter Account Manager Expl anation Advance Directive(s) 10/06/2018 10:21 AM Latest Code Status on File Code Status Date Activated Date Inactivated Comments Full Code 09/01/2022 12:05 AM Full Code Order Discussed With: Patient Documents on File Type Date Recorded Patient Recruiter Account Manager Expl anation Advance Directive(s) 10/06/2018 10:21 AM [...] IVCON CT ABDOMEN W/CONTRAST Aidan Larios MD [address] [place] [address] Ct Imaging Referral ID Status Reason Start Date Expiration Date Visits Requested Visits Authorized [id number] Pending Review Auto-Generat ed Referral 12/24/2021 01/09/2023 1 1 Referral ID Status Reason Start Date Expiration Date V isits Requested Visits Authorized [id number] Closed Auto-Generated Referral Patient Cleared - INN [...] 2:02pm Wellness examination September 02, 2024 2:02pm Chief Complaint Admit Date Rash/wants MRI February 17, 2025 10:0 4am Reason for Visit Admit Date Cervical spondylosis February 17, 2025 10: 04am Hypertension February 17, 2025 10:0 4am Liver transplant rejection February 17 10:04am Lumbar spondylosis February 17, 2025 10:0 4am Post-traumatic arthritis of left foot Ju 2024 10:04am Additional Source Comments (unrecognized sect ion and content) No Status Records FoundNo Status Records FoundNo Status Records FoundNo Status Records FoundNo Status Records FoundNo Status Records FoundNo Status Records Found INFORMATION SOURCE (unrecogn ized section and content) DATE CREATED AUTHOR 12/20/2020 [facility] DATE CREATED AUTHOR AUTHOR'S ORGANIZ ATION 07/13/2021 [facility] DATE CREATED AUTHOR AUTHOR'S ORGANIZ ATION 08/18/2021 [facility] DATE CREATED AUTHOR AUTHOR'S ORGANIZ ATION 11/09/2022 [facility] DATE CREATED AUTHOR AUTHOR'S ORGANIZ ATION 12/04/[address] [facility] DATE CREATED AUTHOR AUTHOR'S ORGANIZ ATION 02/11/2025 [facility] DATE CREATED AUTHOR AUTHOR'S ORGANIZ ATION 03/11/2025 [facility] Source Comments (unrecognize d section and content) In the event this informatio n is protected by the Federal Confidentiality of Alcohol and Drug Abuse Patient Records regulations: The Federal rules restrict any use of the information to criminally investigate or prosecute any alcohol or drug abuse patient.[facility] HospitalIn the event this information is protected by the Federal Confidentiality of Alcohol and Drug Abuse Patient Records regulations: The Federal rules restrict any use of the information to criminally investigate or prosecute any alcohol or drug abuse patient.[facility] HospitalIn the event this information is protected by the Federal Confidentiality of Alcohol and Drug Abuse Patient Records regulations: The Federal rules restrict any use of the information to criminally investigate or prosecute any alcohol or drug abuse patient.[facility] HospitalIn the event this information is protected by the Federal Confidentiality of Alcohol and Drug Abuse Patient Records regulations: The Federal rules restrict any use of the information to criminally investigate or prosecute any alcohol or drug abuse patient.[facility] HospitalIn the event this information is protected by the Federal Confidentiality of Alcohol and Drug Abuse Patient Records regulations: The Federal rules restrict any use of the information to criminally investigate or prosecute any alcohol or drug abuse patient.[facility] HospitalIn the event this information is protected by the Federal Confidentiality of Alcohol and Drug Abuse Patient Records regulations: The Federal rules restrict any use of the information to criminally investigate or prosecute any alcohol or drug abuse patient.[facility] HospitalIn the event this information is protected by the Federal Confidentiality of Alcohol and Drug Abuse Patient Records regulations: The Federal rules restrict any use of the information to criminally investigate or prosecute any alcohol or drug abuse patient.[facility] HospitalIn the event this information is protected by the Federal Confidentiality of Alcohol and Drug Abuse Patient Records regulations: The Federal rules restrict any use of the information to criminally investigate or prosecute any alcohol or drug abuse patient.[facility] HospitalIn the event this information is protected by the Federal Confidentiality of Alcohol and Drug Abuse Patient Records regulations: The Federal rules restrict any use of the information to criminally investigate or prosecute any alcohol or drug abuse patient.[facility] HospitalIn the event this information is protected by the Federal Confidentiality of Alcohol and Drug Abuse Patient Records regulations: The Federal rules restrict any use of the information to criminally investigate or prosecute any alcohol or drug abuse patient.[facility] HospitalIn the event this information is protected by the Federal Confidentiality of Alcohol and Drug Abuse Patient Records regulations: The Federal rules restrict any use of the information to criminally investigate or prosecute any alcohol or drug abuse patient.[facility] HospitalIn the event this information is protected by the Federal Confidentiality of Alcohol and Drug Abuse Patient Records regulations: The Federal rules restrict any use of the information to criminally investigate or prosecute any alcohol or drug abuse patient.[facility] HospitalIn the event this information is protected by the Federal Confidentiality of Alcohol and Drug Abuse Patient Records regulations: The Federal rules restrict any use of the information to criminally investigate or prosecute any alcohol or drug abuse patient.[facility] HospitalIn the event this information is protected by the Federal Confidentiality of Alcohol and Drug Abuse Patient Records regulations: The Federal rules restrict any use of the information to criminally investigate or prosecute any alcohol or drug abuse patient.[facility] Reason for Visit (unrecogniz ed section and content) Reason Comments Radiology CT Specialty Diagnoses / Procedures Referred By Contac t Referred To Contact CT IMAGING Diagnoses Alcohol-induced acute pancreatitis, unspecified complication status Procedures CT ABDOMEN W IVCON CT ABDOMEN W/CONTRAST Aidan Larios MD [address] [place] [address] Ct Imaging Referral ID Status Reason Start Date Expiration Date V isits Requested Visits Authorized [id number] Closed Auto-Generated Referral Patient Cleared - INN Insurance Found 12/24/2021 01/09/2023 1 1 Reason Comments Hospital Follow Up Reason Comments Established Patient Reason Comments Covid19 Concern Reason Comments Reminder To Have Labs Drawn Reason Comments Refill Request Reason Comments Endoscopy Call Reason Comments Care Coordination [facility] clinic Care Teams (unrecognized sec tion and content) Team Status: Active Member Role Status Dates Luis Abdalla DO Primary Care Provider Active Team Status: Inactive Member Role Status Dates Luis Abdalla DO Primary Care Provider Active Start: February 17, 2025 End: February 17, 2025 Luis Abdalla DO Attending Provider Active Sta rt: February 17, 2025 End: February 17, 2025 Team Status: Active Member Role Status Dates [...] September 02, 2024 End: September 02, 2024 Hospitalist Medical Director Relationship Specialty Start Date End Date Luis Abdalla, DO [address] [id number] PCP - General Internal Medicine 01/12/18 Angie Fernandes Jr. [address] [address] Referring Gastroenterology 01/12/18 Nadja Spencer RN [facility] [address] [place] [address] Transplant Center 08/31/19 Hospitalist Medical Director Relationship Specialty Start Date End Date Luis Abdalla, DO [address] [place] [address] PCP - General Internal Medicine 01/12/18 Angie Fernandes Jr. [address] [address] Referring Gastroenterology 01/12/18 Nadja Spencer RN [facility] [address] [place] [address] Transplant Center 08/31/19 Hospitalist Medical Director Relationship Specialty Start Date End Date Luis Abdalla, DO [address] [place] [address] PCP - General Internal Medicine 01/12/18 Angie Fernandes Jr. [address] [address] Referring Gastroenterology 01/12/18 Nadja Spencer RN [facility] [address] [place] [address] Transplant Center 08/31/19 Hospitalist Medical Director Relationship Specialty Start Date End Date Luis Abdalla, DO [address] [place] [address] PCP - General Internal Medicine 01/12/18 Angie Fernandes Jr. [address] [address] Referring Gastroenterology 01/12/18 Nadja Spencer RN [facility] [address] [place] [address] Transplant Center 08/31/19 Hospitalist Medical Director Relationship Specialty Start Date End Date Luis Abdalla, DO [address] [place] [address] PCP - General Internal Medicine 01/12/18 Angie Fernandes Jr. [address] [address] Referring Gastroenterology 01/12/18 Nadja Spencer RN [facility] [address] [place] [address] Transplant Center 08/31/19 Hospitalist Medical Director Relationship Specialty Start Date End Date Luis Abdalla, DO [address] [place] [address] PCP - General Internal Medicine 01/12/18 Angie Fernandes Jr. [address] [address] Referring Gastroenterology 01/12/18 Nadja Spencer RN [facility] [address] [place] [address] Transplant Center 08/31/19 Hospitalist Medical Director Relationship Specialty Start Date End Date Luis Abdalla, DO [address] [facility] [place] [address] PCP - General Internal Medicine 01/12/18 Angie Fernandes Jr., DO [address] [address] Referring Gastroenterology 01/12/18 Nadja Spencer, [facility]OOL [facility] [address] [place] [address] Transplant Center 08/31/19 Hospitalist Medical Director Relationship Specialty Start Date End Date Luis Abdalla, DO [address] [facility] [place] [address] PCP - General Internal Medicine 01/12/18 Angie Fernandes Jr., DO [address] [address] Referring Gastroenterology 01/12/18 Nadja Spencer, [place]OOL [facility] [address] [place] [address] Transplant Center 08/31/19 Hospitalist Medical Director Relationship Specialty Start Date End Date Luis Abdalla, DO [address] [facility] [place] [address] PCP - General Internal Medicine 01/12/18 Angie Fernandes Jr., DO [address] [place] [address] Referring Gastroenterology 01/12/18 Nadja Spencer, [place] [facility] [address] [place] [address] Transplant Center 08/31/19 Hospitalist Medical Director Relationship Specialty Start Date End Date Luis Abdalla, DO [address] [place] [address] PCP - General Internal Medicine 01/12/18 Angie Fernandes Jr., DO [address] [place] [address] Referring Gastroenterology 01/12/18 Nadja Spencer RN [facility] [address] [place] [address] Transplant Center 08/31/19 Team Status: Inactive Member Role Status Dates [...] BE BASED ON THE PRIMARY CLINICAL RECORDS. [employer] provides no warranty or guarantee of the accuracy or completeness of information in this document.
--- NOTE | 2025-04-12 09:49 | PM.CN ---
Consult Note: HPI Data of Consult Patient: known to practice within the last 3 years Consult date: 04/12/25 Requesting Physician: Brandy Chan NP Primary Care Provider: Luis Hicks DO Consult Narrative Reason for consult: left foot pain Narrative: Prateek Villalta a pleasnt 39 year old male who presents for assessment. notes increasing left foot pain, sometimes to the point where he cannot walk on it without crutches. left foot mri consistent with significant for moderate midfoot arthritis. has engaged in >6 weeks of provider directed home exercises, without relief. tried lyrica 50mg, which was beneficial, but gave him nightmares. not utilizing any tylenol or motrin due to hx of liver transplant. cc:: CC: Brandy Chan NP Review of Systems ROS Musculoskeletal Reports: extremity pain and joint pain PFSH PFSH Medical History Liver transplant failure and rejection ?T86.42 - Liver transplant failure (ICD-10) ?T86.41 - Liver transplant rejection (ICD-10) Acid reflux ?K21.9 - Gastro-esophageal reflux disease without esophagitis (ICD-10) Hemochromatosis ?E83.119 - Hemochromatosis, unspecified (ICD-10) High blood pressure ?I10 - Essential (primary) hypertension (ICD-10) Surgical History History of fusion of cervical spine ?Z98.1 - Arthrodesis status (ICD-10) History of ERCP ?Z98.890 - Other specified postprocedural states (ICD-10) History of liver transplant ?Z94.4 - Liver transplant status (ICD-10) Social History Little interest or pleasure in doing things: not at all Feeling down, depressed, or hopeless: not at all Meds Home Medications and Allergies Home Medications ?Medication ?Instructions ?Recorded ?Confirmed ?Type amlodipine 10 mg tablet 10 mg PO DAILY 09/28/23 11/21/24 History carvedilol 12.5 mg tablet 25 mg PO BID 09/28/23 11/21/24 History pantoprazole 40 mg tablet,delayed 40 mg PO DAILY 09/28/23 11/21/24 History release tacrolimus 1 mg capsule, 2 mg PO BID 09/28/23 11/21/24 History immediate-release ursodiol 300 mg capsule 300 mg PO TID 09/28/23 11/21/24 History pregabalin 25 mg capsule (Lyrica) 25 mg PO TID #90 caps 11/14/24 11/21/24 Rx diazepam 10 mg tablet 10 mg PO BID 11/21/24 11/21/24 History sulfamethoxazole 400 1 tab PO DAILY 11/21/24 11/21/24 History mg-trimethoprim 80 mg tablet (Bactrim) Allergies Allergy/AdvReac Type Severity Reaction Status Date / Time midazolam (From Versed) Allergy Unknown Agitated Verified 11/21/24 10:22 Penicillins Allergy Unknown Rash Verified 11/21/24 10:22 Exam Constitutional Documenting provider has reviewed patient's vital signs: yes Common normals: no apparent distress, oriented x3, healthy appearing, alert and well nourished General appearance: cooperative HENMT Common normals: normocephalic, hearing grossly normal bilaterally and moist oral mucous membranes Head and scalp: normocephalic Eye Common normals: PERRL Pupil: PERRL Neck & C-Spine Common normals: full ROM General: normal visual inspection Chest Common normals: inspection of chest normal Respiratory Common normals: normal respiratory effort, no retractions and no use of accessory muscles Extremity Left lower extremity: foot and digits Other: left foot pain with palpation over first tarsometatarsal joint, no obvious edema redness warmth. minimal pain with ROM, mild pain with dorsiflexion Neuro Common normals: oriented x3 Sensorium/orientation: alert Psych Common normals: mental status grossly normal, thought process normal, cooperative, affect normal, speech normal and activity/motor behavior normal Speech: normal speech Thought process: normal thought process Results Additional Findings Additional findings: If on a controlled substance or opioids, I have checked an [place] report on this patient and there are no aberrancies noted in the prescribing history.??If on a controlled substance or opioid a drug screen was completed and reviewed within the last year, and if there has not been a drug screen completed we ordered one today to monitor higher risk, state monitored pain medication use. As part of providing excellent, safe, comprehensive care, the following was completed at our patient's visit: 1. A medication reconciliation and review to ensure accurate knowledge of current/active medications, including asking our patients to inform us about any [id number] medications or herbal remedies/nutritional supplements/alternative remedies. 2. A review to specifically ensure our patients have had annual screening for screening for depression, screening for tobacco use, and screening for unhealthy alcohol use. For concerning screenings had a discussion with the patient, provided patient education, and recommended follow-up with primary care provider when appropriate. If patient noted with a risk of falling, they received education on strength, gait, and balance training to prevent future risk of falling. Portions of this note may have been carried over from the previous visit and updated as appropriate. Please note this office utilizes paper charting in addition to the electronic medical record. A list of current medications, vitals, and PMH is available there as the clinical staff outside of myself do not have access to [employer] charting during the clinic day operations. As part of providing quality comprehensive care the current medications, vitals, and PMH were reviewed in the paper chart. Assessment and Plan Assessment and Plan (1) Left foot pain: Plan repeat left foot injection under fluoroscopy, pt had greater than 50% improvement in pain and functional ability greater than 3 months. pt felt great with weightbearing and walking, this was the best relief he has had. pt declining valium. defer medication management, f/u after injection
== END 2025-04-12 09:30 | disposition home or self-care (01) ==
LOC: PM 09:33
PROVIDERS: PCP Internal Medicine; Visit Provider Nurse Practitioner
DX: M79.672 Pain in left foot (principal)
CPT/HCPCS: G0463

== ENCOUNTER 2025-05-01 12:18 | Day surgery (SDC) | payer MEDICARE, MEDICAID, SELFPAY ==
--- OUTSIDE RECORDS SUMMARY | 2025-05-01 12:22 | XMS_ITS | CCD ---
Author Organization [facility] CliniSyar Care Team Providers Care Electrical Controls Engineer Name Role Phone DR LUIS ABDALLA Attending [...] Unavailable Dena Pineda DO, David L Unavailable [phone] Tj RENAE, Nadja Unavailable Unavailable Luis Abdalla DO Primary Care Provider Dena Pineda DO, David L Unavailable Nadja Spencer RN Unavailable Unavailable Luis Abdalla Unavailable LUIS ABDALLA Primary Care Unavailable ROSEMARIE SHEPARD Attending Unavailable LUIS ABDALLA Primary Care Physician Donna GIRON, Vicente Saavedra Attending Unavailable Giedraitis , Andrius Vsheldon Attending Unavailable Giedraitis , Andrius Vsheldon Attending Unavailable Giedraitis , Andrius Vytdelfino Attending Unavailable Giedraitis , Andrius Vytdelfino Attending Unavailable Giedraitis , Andrius Saavedra Attending Unavailable Luis Abdalla DO Primary Care Provider [phone] Luis Abdalla DO Attending Provider NICKOLAS MCCALLUM Referring Unavailable LUIS ABDALLA Primary Care Unavailable LUIS ABDALLA Referring Unavailable LUIS ABDALLA Attending Unavailable Ralf Carbajal Attending Unavailable Allergies Allergy Classification Reported Allergen(s) Allergy Type Date of Onset Reaction(s) Facility Penicillins (antibiotic) (1 source) Penicillin Drug Allergy [facility] Repository (20 sources) Midazolam; Translations: [MIDAZOLAM] Drug Allergy 1 Other: See Comments [facility] (9 sources) Penicillins; Translations: [PENICILLINS] Drug Allergy 4 Unknown, Swelling [facility] Work Phone: Comment on above: had skin test done b efore transplant (16 sources) Seasonal allergy; Translations: [SEASONAL ALLERGIES] Propensity to adverse reactions 8 Unknown [facility] (10 sources) Penicillins Drug Allergy Unknown [facility] Work Phone: (6 sources) penicillAMINE Drug Allergy 4 Unknown, Unknown Reaction [facility] (3 sources) Penicillin; Translations: [penicillin] Drug Allergy Urticaria (disorder) [facility] (1 source) Midazolam; Translations: [Versed] Drug Allergy [facility] Repository Medications Current Medications Medication Drug Class(es) [...] day(s), # 21 tab(s), Refills(s) 0, Pharmacy: [id number], 113.4, cm, 01/26/25 11:00:00 EDT, Height/Length Dosing, [...] Basophils (Bld) [#/Vol] 0.03 10*3/uL Normal <0.11 [facility] Comment on above: Order Comment: Speci men Type: BLOOD SPECIMEN Ordering Facility: [facility] Address: [address] [place] [address] Performed By: #### 5 7021-8 #### [facility] CLIA [id number] [address] [place] [address] [place] Basophils/100 WBC (Bld) 0.3 % Normal [facility] Comment on above: Order Comment: Speci men Type: BLOOD SPECIMEN Ordering Facility: [facility] Address: [address] [place] [address] Performed By: #### 5 7021-8 #### [facility] CLIA [id number] [address] [place] [address] [place] Differential cell count method Nom (Bld) Auto Normal [facility] Comment on above: Order Comment: Speci men Type: BLOOD SPECIMEN Ordering Facility: [facility] Address: [address] [place] [address] Performed By: #### 5 7021-8 #### [facility] CLIA [id number] [address] [place] [address] [place] Eosinophils (Bld) [#/Vol] 0.18 10*3/uL Normal <0.46 [facility] Comment on above: Order Comment: Speci men Type: BLOOD SPECIMEN Ordering Facility: [facility] Address: [address] [place] [address] Performed By: #### 5 7021-8 #### [facility] CLIA [id number] [address] [place] [address] [place] Eosinophils/100 WBC (Bld) 2.0 % Normal [facility] Comment on above: Order Comment: Speci men Type: BLOOD SPECIMEN Ordering Facility: [facility] Address: [address] [place] [address] Performed By: #### 5 7021-8 #### [facility] CLIA [id number] [address] [place] [address] [place] Erythrocyte distribution width (RBC) [Ratio] 14.7 % Normal 11.5-15.0 [facility] Comment on above: Order Comment: Speci men Type: BLOOD SPECIMEN Ordering Facility: [facility] Address: [address] [place] [address] Performed By: #### 5 7021-8 #### [facility] CLIA [id number] [address] [place] [address] [place] Hematocrit (Bld) [Volume fraction] 41.3 % Normal 39.0-51.0 [facility] Comment on above: Order Comment: Speci men Type: BLOOD SPECIMEN Ordering Facility: [facility] Address: [address] [place] [address] Performed By: #### 5 7021-8 #### [facility] CLIA [id number] [address] [place] [address] [place] Hemoglobin (Bld) [Mass/Vol] 14.3 g/dL Normal 13.0-17.0 [facility] Comment on above: Order Comment: Speci men Type: BLOOD SPECIMEN Ordering Facility: [facility] Address: [address] [place] [address] Performed By: #### 5 7021-8 #### [facility] CLIA [id number] [address] [place] [address] [place] Immature granulocytes (Bld) [#/Vol] 0.08 10*3/uL Normal <0.10 [facility] Comment on above: Order Comment: Speci men Type: BLOOD SPECIMEN Ordering Facility: [facility] Address: [address] [place] [address] Performed By: #### 5 7021-8 #### [facility] CLIA [id number] [address] [place] [address] [place] Immature granulocytes/100 WBC (Bld) 0.9 % Normal [facility] Comment on above: Order Comment: Speci men Type: BLOOD SPECIMEN Ordering Facility: [facility] Address: [address] [place] [address] Performed By: #### 5 7021-8 #### [facility] CLIA [id number] [address] [place] [address] [place] Lymphocytes (Bld) [#/Vol] 0.89 10*3/uL Low 1.00-4.00 [facility] Comment on above: Order Comment: Speci men Type: BLOOD SPECIMEN Ordering Facility: [facility] Address: [address] [place] [address] Performed By: #### 5 7021-8 #### [facility] CLIA [id number] [address] [place] [address] [place] Lymphocytes/100 WBC (Bld) 9.8 % Normal [facility] Comment on above: Order Comment: Speci men Type: BLOOD SPECIMEN Ordering Facility: [facility] Address: [address] [place] [address] Performed By: #### 5 7021-8 #### [facility] CLIA [id number] [address] [place] [address] [place] MCH (RBC) [Entitic mass] 29.7 pg Normal 26.0-34.0 [facility] Comment on above: Order Comment: Speci men Type: BLOOD SPECIMEN Ordering Facility: [facility] Address: [address] [place] [address] Performed By: #### 5 7021-8 #### [facility] CLIA [id number] [address] [place] [address] [place] MCHC (RBC) [Mass/Vol] 34.6 g/dL Normal 30.5-36.0 [facility] Comment on above: Order Comment: Speci men Type: BLOOD SPECIMEN Ordering Facility: [facility] Address: [address] [place] [address] Performed By: #### 5 7021-8 #### [facility] CLIA [id number] [address] [place] [address] [place] MCV (RBC) [Entitic vol] 85.9 fL Normal 80.0-100.0 [facility] Comment on above: Order Comment: Speci men Type: BLOOD SPECIMEN Ordering Facility: [facility] Address: [address] [place] [address] Performed By: #### 5 7021-8 #### [facility] CLIA [id number] [address] [place] [address] [place] Monocytes (Bld) [#/Vol] 0.85 10*3/uL Normal <0.87 [facility] Comment on above: Order Comment: Speci men Type: BLOOD SPECIMEN Ordering Facility: [facility] Address: [address] [place] [address] Performed By: #### 5 7021-8 #### [facility] CLIA [id number] [address] [place] [address] [place] Monocytes/100 WBC (Bld) 9.3 % Normal [facility] Comment on above: Order Comment: Speci men Type: BLOOD SPECIMEN Ordering Facility: [facility] Address: [address] [place] [address] Performed By: #### 5 7021-8 #### [facility] CLIA [id number] [address] [place] [address] [place] Neutrophils (Bld) [#/Vol] 7.09 10*3/uL Normal 1.45-7.50 [facility] Comment on above: Order Comment: Speci men Type: BLOOD SPECIMEN Ordering Facility: [facility] Address: [address] [place] [address] Performed By: #### 5 7021-8 #### [facility] CLIA [id number] [address] [place] [address] [place] Neutrophils/100 WBC (Bld) 77.7 % Normal [facility] Comment on above: Order Comment: Speci men Type: BLOOD SPECIMEN Ordering Facility: [facility] Address: [address] [place] [address] Performed By: #### 5 7021-8 #### [facility] CLIA [id number] [address] [place] [address] [place] Nucleated RBC (Bld) [#/Vol] 10*3/uL Normal <0.01 [facility] Comment on above: Order Comment: Speci men Type: BLOOD SPECIMEN Ordering Facility: [facility] Address: [address] [place] [address] Performed By: #### 5 7021-8 #### [facility] CLIA [id number] [address] [place] [address] [place] Nucleated RBC/100 WBC (Bld) [Ratio] 0.0 /100 WBC Normal [facility] Comment on above: Order Comment: Speci men Type: BLOOD SPECIMEN Ordering Facility: [facility] Address: [address] [place] [address] Performed By: #### 5 7021-8 #### [facility] CLIA [id number] [address] [place] [address] [place] Platelet mean volume (Bld) [Entitic vol] 13.3 fL High 9.0-12.7 [facility] Comment on above: Order Comment: Speci men Type: BLOOD SPECIMEN Ordering Facility: [facility] Address: [address] [place] [address] Performed By: #### 5 7021-8 #### [facility] CLIA [id number] [address] [place] [address] [place] Platelets (Bld) [#/Vol] 117 10*3/uL Low 150-400 [facility] Comment on above: Order Comment: Speci men Type: BLOOD SPECIMEN Ordering Facility: [facility] Address: [address] [place] [address] Performed By: #### 5 7021-8 #### [facility] CLIA [id number] [address] [place] [address] [place] RBC (Bld) [#/Vol] 4.81 10*6/uL Normal 4.20-6.00 [facility] Comment on above: Order Comment: Speci men Type: BLOOD SPECIMEN Ordering Facility: [facility] Address: [address] [place] [address] Performed By: #### 5 7021-8 #### [facility] CLIA [id number] [address] [place] [address] [place] WBC (Bld) [#/Vol] 9.12 10*3/uL Normal 3.70-11.00 [facility] Comment on above: Order Comment: Speci men Type: BLOOD SPECIMEN Ordering Facility: [facility] Address: [address] [place] [address] Performed By: #### 5 7021-8 #### [facility] CLIA [id number] [address] [place], [place] [address] [place] Comprehensive metabolic 2000 panelon 03-09-2025 Albumin [Mass/Vol] 4.4 g/dL Normal 3.9-4.9 [facility] Comment on above: Order Comment: Speci men Type: BLOOD SPECIMEN Ordering Facility: [facility] Address: [address] [place] [address] Performed By: #### 2 4323-8, 2777- #### [facility] CLIA [id number] [address] [place] [address] [place] ALP [Catalytic activity/Vol] 80 U/L Normal 38-113 [facility] Comment on above: Order Comment: Speci men Type: BLOOD SPECIMEN Ordering Facility: [facility] Address: [address] [place] [address] Performed By: #### 2 4323-8, 277- #### [facility] CLIA [id number] [address] [place] [address] [place] ALT [Catalytic activity/Vol] 22 U/L Normal 10-54 [facility] Comment on above: Order Comment: Speci men Type: BLOOD SPECIMEN Ordering Facility: [facility] Address: [address] [place] [address] Performed By: #### 2 4323-8, 2777- #### [facility] CLIA [id number] [address] [place] [address] [place] Anion gap [Moles/Vol] 11 mmol/L Normal 8-15 [facility] Comment on above: Order Comment: Speci men Type: BLOOD SPECIMEN Ordering Facility: [facility] Address: [address] [place] [address] Performed By: #### 2 4323-8, 2777- #### [facility] CLIA [id number] [address] [place] [address] [place] AST [Catalytic activity/Vol] 20 U/L Normal 14-40 [facility] Comment on above: Order Comment: Speci men Type: BLOOD SPECIMEN Ordering Facility: [facility] Address: [address] [place] [address] Performed By: #### 2 4323-8, 2776-07 #### [facility] CLIA [id number] [address] [place] [address] [place] Bilirubin [Mass/Vol] 1.4 mg/dL High 0.2-1.3 [facility] Comment on above: Order Comment: Speci men Type: BLOOD SPECIMEN Ordering Facility: [facility] Address: [address] [place] [address] Performed By: #### 2 4323-8, 2776-07 #### [facility] CLIA [id number] [address] [place] [address] [place] Calcium [Mass/Vol] 9.8 mg/dL Normal 8.5-10.2 [facility] Comment on above: Order Comment: Speci men Type: BLOOD SPECIMEN Ordering Facility: [facility] Address: [address] [place] [address] Performed By: #### 2 4323-8, 2776-07 #### [facility] CLIA [id number] [address] [place] [address] [place] Chloride [Moles/Vol] 100 mmol/L Normal 98-107 [facility] Comment on above: Order Comment: Speci men Type: BLOOD SPECIMEN Ordering Facility: [facility] Address: [address] [place] [address] Performed By: #### 2 4323-8, 27701-24 #### [facility] CLIA [id number] [address] [place] [address] [place] CO2 [Moles/Vol] 23 mmol/L Normal 22-30 [facility] Comment on above: Order Comment: Speci men Type: BLOOD SPECIMEN Ordering Facility: [facility] Address: [address] [place] [address] Performed By: #### 2 4323-8, 277-1 #### [facility] CLIA [id number] [address] [place] [address] [place] Creatinine [Mass/Vol] 1.11 mg/dL Normal 0.73-1.22 [facility] Comment on above: Order Comment: Noe madrid Type: BLOOD SPECIMEN Ordering Facility: [facility] Address: [address] [place] [address] Performed By: #### 2 4323-8, 277- #### [facility] CLIA [id number] [address] [place] [address] [place] eGFRcr SerPlBld CKD-EPI 2020 87 mL/min/1.73m??? Normal >=60 [facility] Comment on above: Order Comment: Noe madrid Type: BLOOD SPECIMEN Ordering Facility: [facility] Address: [address] [place] [address] Result Comment: Brenda mated Glomerular Filtration Rate [...] Performed By: #### 2 4323-8, 277- #### [facility] CLIA [id number] [address] [place] [address] [place] Glucose [Mass/Vol] 248 mg/dL High 74-99 [facility] Comment on above: Order Comment: Noe madrid Type: BLOOD SPECIMEN Ordering Facility: [facility] Address: [address] [place] [address] Result Comment: The [place] Diabetes Association (ADA) provides guidance for cutoff [...] Standards of Medical Care in Diabetes 2016, [place] [employer]. Diabetes Care. 2016.39(Suppl 1). Performed By: #### 2 4323-8, 2776-07 #### [facility] CLIA [id number] [address] [place] [address] [place] Potassium [Moles/Vol] 4.5 mmol/L Normal 3.7-5.1 [facility] Comment on above: Order Comment: Speci men Type: BLOOD SPECIMEN Ordering Facility: [facility] Address: [address] [place] [address] Performed By: #### 2 4323-8, 2776-07 #### [facility] CLIA [id number] [address] [place] [address] [place] Protein [Mass/Vol] 7.4 g/dL Normal 6.3-8.0 [facility] Comment on above: Order Comment: Louiei mercy Type: BLOOD SPECIMEN Ordering Facility: [facility] Address: [address] [place] [address] Performed By: #### 2 4323-8, 2776-07 #### [facility] CLIA [id number] [address] [place], [place] [address] [place] Sodium [Moles/Vol] 134 mmol/L Low 136-144 [facility] Comment on above: Order Comment: Speci men Type: BLOOD SPECIMEN Ordering Facility: [facility] Address: [address] [place] [address] Performed By: #### 2 4323-8, 27701-24 #### [facility] CLIA [id number] [address] [place], [place] [address] [place] Urea nitrogen [Mass/Vol] 22 mg/dL Normal 9-24 [facility] Comment on above: Order Comment: Noe madrid Type: BLOOD SPECIMEN Ordering Facility: [facility] Address: [address] [place] [address] Performed By: #### 2 4323-8, 2777-1 #### [facility] CLIA [id number] [address] [place] [address] [place] Phosphate SerPl-[facility] 03-09 Phosphate [Mass/Vol] 3.3 mg/dL Normal 2.7-4.8 [facility] Comment on above: Order Comment: Noe madrdi Type: BLOOD SPECIMEN Ordering Facility: [facility] Address: [address] [place] [address] Performed By: #### 2 4323-8, 2777-1 #### [facility] CLIA [id number] [address] [place] [address] STATES OF [facility] Tacrolimus Bld-[facility] 2024 Tacrolimus (Bld) [Mass/Vol] 8.4 ng/mL Normal 5.0-20.0 [facility] Comment on above: Order Comment: Noe madrid Type: BLOOD SPECIMEN Ordering Facility: [facility] Address: [address] [place] [address] Result Comment: Nannette vidualized target levels for [...] i. Performed By: #### 1 1253-2 #### [facility] CLIA [id number] [address] [place] [address] [place] CNPNon 02-21-2025 CNPN Telephone (TXCTMN) CHUCKIE VILLALTA ([id number]) 1985 M Date Time Provider Department 02/21/25 [...] also agreeable to a virtual visit with [facility] once he has lab work drawn. 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 He is on vacation this week, so plans to have lab work drawn next week. Nadja Spencer (Cassie) RN, BSN, [facility] Liver Embossing Calender Operator Allergies As of Date: 02/21/2025 Noted Allergy [...] Status:Closed by NADJA SPENCER on 02/21/25 Normal [facility] Nonvisit Note - PTon 025 Nonvisit Note - PT Nonvisit Note - PT Pt no showed for 929 appointment. Normal [facility] ED Clinical Summaryon 2024 ED Clinical Summary ED Clinical Summary [address] [address] ED Clinical Summary Person Information Name: CHUCKIE VILLALTA [facility] Age: 39 Years : 1985 Sex: Male Language: Swedish PCP: LUIS ABDALLA DO Marital Status: Phone: [phone] Visit Id: Visit Reason: Leg pain-swelling; Back [...] 01/26/2025 11:40:59 01/26/2025 11:40:59 01/26/2025 11:40:59 ADDRESS: [address] [place] [phone] PHYS DOC NOTES: MEDICAL INFORMATION: Prescriptions Given: New Medications [id number], [address] [place], [place] [id number], [phone] predniSONE (predniSONE 20 mg Tab) 3 Tablets By Mouth every day for 7 Days. Refills: 0. PATIENT EDUCATION INFORMATION: Instructions: Acute Back Pain, Adult Follow up: With: Address: When: LUIS RM [address] [facility] [place] [address] Business (1) In 3 days 01/29/2025 DIAGNOSIS: Back pain Normal [facility] ED Note-Physicianon 01-27-20 ED Note-Physician ED Note-Physician [...] day(s), # 21 tab(s), Refills(s) 0, Pharmacy: [facility] #[id number], 113.4, cm, 01/26/25 11:00:00 EDT, Height/Length Dosing, [...] In 3 days 01/29/2025 EDT [address] [id number] [facility] (1) Additional Instructions: Patient Education Acute Back [...] made to ensure accuracy, however, inadvertently computerized rn clinical research mistakes may be present. Appropriate healthcare PPE [...] Diagnostic Results No qualifying data available. Normal [facility] Comment on above: Result Comment: Elec tronically Signed By: Reynaldo Lopez PA-C\.br\Date and Time Signed: 01/26/25 12:05 EDT\.br\Electronically Co-Signed By: Ralf Carbajal DO\.br\Date and Time Co-Signed: 01/26/25 18:06 EDT ED Patient Summaryon 025 ED Patient Summary ED Patient Summary [address] [address] Patient Discharge Instructions Person Information Name: CHUCKIE VILLALTA Age: 39 Years Arrival Date: 01/26/2025 10:49:31 Discharge Diagnosis: Back pain Primary Care Physician: LUIS ABDALLA DO Provider Information Primary Provider: Ralf Carbajal DO Advanced Log Truck Driver:Reynalod Lopez PA-C The exam and treatment you received in the Emergency Department were for an urgent problem and are not intended as complete care. It is important that you follow up with a doctor, nurse practitioner, or physician???s diet assistant for ongoing care. If your symptoms [...] Follow-up Instructions: With: Address: When: LUIS ABDALLA [address] [place], [place] [id number] [facility] (1) In 3 days 01/29/2025 In the event that this physician does not participate in your insurance network, please consult with your insurance company to find a nearby participating provider. Patient Education Materials: Acute Back Pain, Adult A MESSAGE TO ALL PATIENTS REGARDING OPIOIDS PRESCRIPTION OPIOIDS: WHAT YOU NEED TO KNOW Prescription opioids can be used to help relieve zpmesgoi-ua-uyxrcr pain and are often prescribed following a [...] be struggling with addiction, tell your health janitor caretaker and ask for vani (more content not included)... [facility] Nonvisit Note - PTon 025 Nonvisit Note - PT Nonvisit Note - PT Pt called to cancel his OP physical therapy session today 01/26/25 due to hurting his back, therefore needing to cancel his appointment. Martita Almazan, SHIPPER 01/26/25 [facility] XR Spine Lumbosacral 2 or 3 [...] Luis Carrasco MD Transcribed by: DAVID Technologist: [facility] Fibrin D-dimer [Presence] in Platelet poor plasma by Latex agglutinationon 08-20-2024 Fibrin D-dimer LA Ql (PPP) Fibrin D-dimer [Presence] in Platelet poor plasma by Latex agglutination <=0.59 [facility] Comment on above: Increases in D-Dimer [...] anticoagulant therapy, stress, and generalizedhospitalization. [facility] CHUCKIE VILLALTA ([id number]) 1985 M [facility] Date Time Provider Department 11/04/22 MIMI CLEMENS [facility] During your visit today, we recorded the following information about you: SHAQ Price 11/04/2022 11:06 AM Signed DEONDRE attempted to contact the patient to discuss the [facility] clinic. DEONDRE left a VM and [...] Fully Assessed Reason for Visit: Care Coordination [9673] Cmt: [facility] clinic Prescriptions as of 11/04/2022 - [...] Encounter Status:Closed by MIMI CLEMENS on 11/04/22 [facility] FLUORO ERCP (POC) FOR DDI E ONLYon 09-04-2022 [facility] CNOVon 02-25-2022 CNOV Office Visit (PSCHL) CHUCKIE VILLALTA ([id number]) 1985 [facility] Date Time Provider Department 02/25/22 9:00 AM ROSEMARIE SHEPARD During your visit today, we recorded the following information about you: SHAQ Chua 02/25/2022 10:46 AM Signed [facility] Assessment Visit Type:Virtual Visit utilizing two-way audio and video for at least a portion of the visit IDENTIFYING INFORMATION: [phone] [email or web address] Lives with of nine years, Екатерина and [...] consented to virtual evaluation. 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 PRECIPITATING PROBLEM(S):Patient was dx with liver disease in 2017. Completed an IOP at [facility] in summer 2018, and received liver [...] Age 16, every other weekend. Went to [employer] for college drank heavily on weekends, [...] was intend (more content not included)... Normal [facility] CT ABDOMEN W IVCONon 022 [facility] Basic Metabolic Panlon 07-12 Anion gap [Moles/Vol] 8 mmol/L Low 9-18 [facility] Calcium [Mass/Vol] 8.6 mg/dL Normal 8.5-10.2 [facility] Chloride [Moles/Vol] 103 mmol/L Normal 97-105 [facility] CO2 [Moles/Vol] 24 mmol/L Normal 22-30 [facility] Creatinine [Mass/Vol] 2.67 mg/dL High 0.73-1.22 [facility] eGFR- Amer. 33 Normal [facility] Comment on above: Result Comment: The [place] Diabetes Association (ADA) provides guidance for cutoff [...] Standards of Medical Care in Diabetes 2016, [place] Diabetes Association. Diabetes Care. 2016.39(Suppl 1). Potassium [Moles/Vol] 3.3 mmol/L Low 3.7-5.1 [facility] Sodium [Moles/Vol] 135 mmol/L Low 136-144 [facility] Urea nitrogen [Mass/Vol] 11 mg/dL Normal 9-24 [facility] CASE MANAGEMon 07-12-2021 CASE MANAGEM HNO ID: [id number] Author: Nanette Dangelo RN Service: ? Author [...] 12, 2021 TIME: 4:48 PM [facility] HNO ID: [id number] Author: [place] MD Service: Hospital Medicine [...] GI team who initially recommended ERCP at [facility] but at this time planning [...] 1.3. He was seen by infectious disease financial management consultant today who recommended adding G6PD to [...] specialist. You were also seen by pain cash management specialist while you are in the hospital. I have not added any pain medications due to near complete resolution of symptoms. You were seen by neurologist recently for the patient's symptoms. They will follow up as an outpatient also. Please follow-up with primary MD in 1 week Follow-up with transplant team at the earliest available appointment-health and wellness coordinator has promised to set up an [...] [facility] CONSULT HNO ID: [id number] Author: Latrell Cabello MD Service: Infectious Disease [...] CONSULT PROGon 07-12-2021 CONSULT PROG HNO ID: [id number] Author: Justin Glasgow PA-C Service: Pain Management Author Type: Physician Graphite Mill Operator Type: Consult Progress Note Filed: 07/12/2021 4:02 [...] Pain scores overnight between 4-8/10 per Vital Crisis Clinician. The patient's current inpatient analgesic regimen has [...] [facility] CONSULT PROG HNO ID: [id number] Author: Spike Gandara MD Service: Nephrology Author Type: Physician Type: Consult Progress Note Filed: 07/12/2021 12:22 PM Note Text: [facility] NEPHROLOGY CONSULT PROGRESS NOTE SERVICE DATE: [...] DATE: July 12, 2021 12:22 PM PHONE: [phone] FOR AFTER HOUR CONCERNS BETWEEN 7PM - [...] 1.6 mg/dL High 0.2-1.3 [facility] Bilirubin,Conjugate d 1.0 mg/dL High <0.2 [facility] Protein [Mass/Vol] 5.7 g/dL Low 6.3-8.0 [facility] NURSING PROGon 07-12-2021 NURSING PROG HNO ID: [id number] Author: Marcela Mcdaniel RN Service: Nursing Author Type: Registered Nurse Type: Nursing Progress Note Filed: 07/12/2021 1:03 AM Note Text: Nursing Progress Note Patient Name: Chuckie Villalta Patient Location: / Daily Note: Report received from BATOOL Nolan. Pt resting comfortably in bed. Will continue to monitor. This note was completed by: Marcela Mcdaniel Normal [facility] Tacrolimus / [id number] Tacrolimus / FK506 7.7 ng/mL Normal [...] Test performed by chemiluminescent immunoassay using [employer] Account[employer] Practice Manager. Performed By: #### F K506 ####[facility], [place] [phone] Amylaseon 07-11-2021 Amylase [Catalytic activity/Vol] 59 U/L Normal 30-104 [facility] Basic Metabolic Panlon 07-11 Anion gap [Moles/Vol] 10 mmol/L Normal 9-18 [facility] Calcium [Mass/Vol] 8.5 mg/dL Normal 8.5-10.2 [facility] Chloride [Moles/Vol] 103 mmol/L Normal 97-105 [facility] CO2 [Moles/Vol] 22 mmol/L Normal 22-30 [facility] Creatinine [Mass/Vol] 2.77 mg/dL High 0.73-1.22 [facility] eGFR- Amer. 32 Normal [facility] [...] [facility] Comment on above: Result Comment: The [place] Diabetes Association (ADA) provides guidance for cutoff [...] Standards of Medical Care in Diabetes 2016, [place] Diabetes Association. Diabetes Care. 2016.39(Suppl 1). Potassium [Moles/Vol] 3.5 mmol/L Low 3.7-5.1 [facility] Sodium [Moles/Vol] 135 mmol/L Low 136-144 [facility] Urea nitrogen [Mass/Vol] 12 mg/dL Normal 9-24 [facility] CONSULT PROGon 07-11-2021 CONSULT PROG HNO ID: [id number] Author: Spike Gandara MD Service: Nephrology Author Type: Physician Type: Consult Progress Note Filed: 07/11/2021 1:06 PM Note Text: [facility] NEPHROLOGY CONSULT PROGRESS NOTE SERVICE DATE: [...] seem by GI, pending transfer to [facility] [place] ? Hemochromatosis s/p OLT on immunosuppression of [...] DATE: July 11, 2021 1:03 PM PHONE: [phone] FOR AFTER HOUR CONCERNS BETWEEN 7PM - 7AM CONTACT ON-CALL NEPHROLOGY STAFF [facility] CONSULT PROG HNO ID: [id number] Author: Justin Glasgow PA-C Service: Pain Management Author Type: Physician Graphite Mill Operator Type: Consult Progress Note Filed: 07/11/2021 11:02 [...] Pain scores overnight between 4-9/10 per Vital Crisis Clinician. The patient's current inpatient analgesic regimen includes: [...] Anion gap [Moles/Vol] 10 mmol/L Normal 9-18 [facility] Calcium [Mass/Vol] 8.5 mg/dL Normal 8.5-10.2 [facility] Chloride [Moles/Vol] 106 mmol/L High 97-105 [facility] CO2 [Moles/Vol] 21 mmol/L Low 22-30 [facility] Creatinine [Mass/Vol] 2.80 mg/dL High 0.73-1.22 [facility] eGFR- Amer. 31 Normal [facility] [...] [facility] Comment on above: Result Comment: The [place] Diabetes Association (ADA) provides guidance for cutoff [...] Standards of Medical Care in Diabetes 2016, [place] Diabetes Association. Diabetes Care. 2016.39(Suppl 1). Potassium [Moles/Vol] 3.5 mmol/L Low 3.7-5.1 [facility] Sodium [Moles/Vol] 137 mmol/L Normal 136-144 [facility] Urea nitrogen [Mass/Vol] 13 mg/dL Normal 9-24 [facility] CONSULT PROGon 07-10-2021 CONSULT PROG HNO ID: [id number] Author: Justin Glasgow PA-C Service: Pain Management Author Type: Physician Graphite Mill Operator Type: Consult Progress Note Filed: 07/10/2021 12:38 [...] Pain scores overnight between 4-7/10 per Vital Crisis Clinician. The patient's current inpatient analgesic regimen includes: [...] [facility] CONSULT PROG HNO ID: [id number] Author: Spike Gandara MD Service: Nephrology Author Type: Physician Type: Consult Progress Note Filed: 07/10/2021 11:42 AM Note Text: [facility] NEPHROLOGY CONSULT PROGRESS NOTE SERVICE DATE: [...] stenosis, seem by GI, pending transfer to [facility] ? Hemochromatosis s/p OLT on [...] DATE: July 10, 2021 11:41 AM PHONE: [phone] FOR AFTER HOUR CONCERNS BETWEEN 7PM - 7AM CONTACT ON-CALL NEPHROLOGY STAFF [facility] Tacrolimus / [id number] Tacrolimus / FK506 9.3 ng/mL Normal [...] situation. Test performed by chemiluminescent immunoassay using [employer]. Performed By: #### F K506 ####[facility] [place], [place] [phone] [facility] 07-09-2021 [facility] HNO ID: [id number] Author: RT Kristyn(R) Service: ? Author Type: [...] CASE MANAGEMon 07-09-2021 CASE MANAGEM HNO ID: [id number] Author: Nanette Dangelo RN Service: ? Author [...] k/uL Normal <0.11 [facility] Abs [place] 1.28 k/uL High <0.87 [facility] Abs Neut 7.42 k/uL Normal 1.45-7.50 [facility] ANC(includeSEG+BAND ) 7.42 k/uL Normal [facility] Anisocytosis Ql (Bld) Present Normal [facility] Basophils/100 WBC (Bld) [...] MCHC (RBC) [Mass/Vol] 34.6 g/dL Normal 30.5-36.0 [facility] MCV (RBC) [Entitic vol] 101.2 fL [...] CONSULT PROGon 07-09-2021 CONSULT PROG HNO ID: [id number] Author: Justin Glasgow PA-C Service: Pain Management Author Type: Physician Graphite Mill Operator Type: Consult Progress Note Filed: 07/09/2021 3:41 [...] Pain scores overnight between 4-8/10 per Vital Crisis Clinician. The patient's current inpatient analgesic regimen includes: [...] [facility] CONSULT PROG HNO ID: [id number] Author: Ana Cotton APRN.LINE BUILDER Service: Gastroenterology Author Type: Nurse Practitioner Type: Consult Progress Note Filed: 07/09/2021 12:27 PM Note Text: Brief GI progress note LFTs completely normalized today Tolerated clears yesterday can advance diet as tolerated - no fatty/fried food Tacro levels elevated likely contributing to kidney function Nephrology stopped fluids, agree. Only needed for pancreatitis first 24 hours Pt continues to wait for bed at [facility], pt will likely still be inpatient for few days while monitoring kidney function and tacro levels if does not get a bed still at that time and tolerating diet can likely get scheduled for ERCP at [facility] as outpatient Will continue to monitor peripherally Normal [facility] CONSULT PROG HNO ID: [id number] Author: Spike Gandara MD Service: Nephrology Author Type: Physician Type: Consult Progress Note Filed: 07/09/2021 12:32 PM Note Text: [facility] NEPHROLOGY CONSULT PROGRESS NOTE SERVICE DATE: [...] stenosis, seem by GI, pending transfer to [facility] ? Hemochromatosis s/p OLT on [...] DATE: July 09, 2021 11:39 AM PHONE: [phone] FOR AFTER HOUR CONCERNS BETWEEN 7PM - 7AM CONTACT ON-CALL NEPHROLOGY STAFF [facility] CONSULT PROG HNO ID: [id number] Author: Valenica Noguera [facility] Service: Pharmacy Author Type: Pharmacist Type: Consult [...] reviewed the above information with the pharmacy data analyst/resident or epitaxial reactor technician and agree with the assessment/plan described. Changes or additions to the note are indicated by italics and . Valencia Noguera, Pharmacist 07/09/2021 7:54 AM Ext: [phone] Normal [facility] CONSULT PROG HNO ID: [id number] Author: Lei Mckoy [facility] Service: Pharmacy Author Type: Pharmacist Type: Consult [...] have any questions, please contact pharmacy at [phone]. Age: [age] year old Allergies: ALLERGIES Allergen [...] 07/08/20212010 18.6 07/07/20212001 37.3 (H) Lei Mckoy, [facility] Normal [facility] Comp Metabolic Panelon 07-09 Albumin [Mass/Vol] 2.9 g/dL Low 3.9-4.9 [facility] ALP [Catalytic activity/Vol] 63 U/L Normal 38-113 [facility] ALT [Catalytic activity/Vol] 16 U/L Normal 10-54 [facility] Anion gap [Moles/Vol] 8 mmol/L Low 9-18 [facility] AST [Catalytic activity/Vol] 17 U/L Normal 14-40 [facility] Bilirubin [Mass/Vol] 1.0 mg/dL Normal 0.2-1.3 [facility] Calcium [Mass/Vol] 8.0 mg/dL Low 8.5-10.2 [facility] Chloride [Moles/Vol] 109 mmol/L High 97-105 [facility] CO2 [Moles/Vol] 20 mmol/L Low 22-30 [facility] Creatinine [Mass/Vol] 2.83 mg/dL High 0.73-1.22 [facility] eGFR- Amer. 31 Normal [facility] [...] [facility] Comment on above: Result Comment: The [place] Diabetes Association (ADA) provides guidance for cutoff [...] Standards of Medical Care in Diabetes 2016, [place] Diabetes Association. Diabetes Care. 2016.39(Suppl 1). Potassium [Moles/Vol] 3.8 mmol/L Normal 3.7-5.1 [facility] Protein [Mass/Vol] 5.1 g/dL Low 6.3-8.0 [facility] Sodium [Moles/Vol] 137 mmol/L Normal 136-144 [facility] Urea nitrogen [Mass/Vol] 16 mg/dL Normal 9-24 [facility] MRI BRAIN WO IVCONon 12-14-2 021 MRI BRAIN WO IVCON * * *Final Report* * * DATE OF EXAM: Jul 08 2021 11:28PM [facility] 0294 - MRI BRAIN [...] if there is concern for demyelinating disease. Game Protector: GUILLE Transcribe Date/Time: Jul 09 2021 2:02A Dictated by : CARLOS ALEJANDRA MD This examination was interpreted and the report reviewed and electronically signed by: CARLOS ALEJANDRA MD on Jul 09 2021 2:09AM EST [id number] Normal [facility] Magnesiumon 07-09-2021 Magnesium [Mass/Vol] 1.8 mg/dL Normal 1.7-2.3 [facility] NURSING PROGon 07-09-2021 NURSING PROG HNO ID: [id number] Author: Demetrice Chacon RN Service: Nursing Author [...] [facility] Protein/Creatinine Ratioon 1 09-09-2020 Creatinine,Urine,Ra n 68.3 mg/dL Normal 20-300 [facility] Comment on above: Performed By: #### P RATIO ####[facility] [place], [place] [phone] Protein (U) [Mass/Vol] 7 mg/dL Normal 0-20 [facility] Comment on above: Performed By: #### P RATIO ####[address] [phone] Protein/Creatinine Ratio 0.1 Normal <0.2 [facility] Comment on above: Performed By: #### P RATIO ####[address] [phone] Urinalysis with Microscopico n 07-09-2021 Bilirubin, Urine [...] 0-3 Normal 0-3 [facility] Specific [place], Ur 1.010 Normal 1.005-1.030 [facility] Urobilinogen Qn (U) 0.2 {Andrea'U}/dL Normal 0.2-1.0 [facility] WBC 0-5 Normal 0-5 [facility] ALLIED HEALTHon 07-08-2021 ALLIED HEALTH HNO ID: [id number] Author: Joshua Moran Service: Spiritual Care Author Type: ? Type: Allied Health Filed: 07/08/2021 1:06 PM Note Text: SPIRITUAL CARE PROGRESS NOTE SERVICE DATE: 07/08/2021 SERVICE TIME: 12:45PM Pt listed as Religious Nondenominational in [facility], and he shared that he and his family attend the Chapel in [place], [place]; pt in good spirits but drowsy at the time of visit; shared that he has undergone a liver transplant, and is now dealing with pancreatitis; provided him with a daily devotional for his use, and offered a blessing bedside; no follow-up planned unless requested. To contact the Spiritual Care Department: Please call Ext [phone] SIGNATURE: Joshua Moran PATIENT NAME: Chuckie Villalta DATE: July 08, 2021 TIME: 1:04 PM PAGER/CONTACT #: [phone] Normal [facility] CBC and Differentialon 07-08 Abs Baso 0.00 k/uL Normal <0.11 [facility] Abs [place] 1.25 k/uL High <0.87 [facility] Abs Neut 6.26 k/uL Normal 1.45-7.50 [facility] ANC(includeSEG+BAND ) 6.26 k/uL Normal [facility] Anisocytosis Ql (Bld) Present Normal [facility] Basophils/100 WBC (Bld) [...] MCHC (RBC) [Mass/Vol] 34.6 g/dL Normal 30.5-36.0 [facility] MCV (RBC) [Entitic vol] 102.4 fL [...] [facility]21 CONSULT HNO ID: [id number] Author: Justin Glasgow PA-C Service: Pain Management Author Type: Physician Graphite Mill Operator Type: Consults Filed: 07/08/2021 2:06 PM Note Text: PAIN MANAGEMENT CONSULT -- [facility] PATIENT NAME: Chuckie Villalta DATE of [...] is consulted RE: acute pancreatitis, on fentanyl deployment specialist by Dr. Jolynn Jaquez and Lisseth Raymond [...] (PF) 4 mg injection (ZOFRAN) - fentaNYL COMMUNICATION STUDIES PROFESSOR 20 mcg/mL in NaCl 0.9% 100 mL [...] Normal [facility] CONSULT HNO ID: [id number] Author: Spike Gandara MD Service: Nephrology Author Type: Physician Type: Consults Filed: 07/08/2021 2:05 PM Note Text: [facility] NEPHROLOGY AND [facility]YPERTENSION [facility] SERVICE DATE: [...] CONSULT PROGon 07-08-2021 CONSULT PROG HNO ID: [id number] Author: Ana Cotton APRN.LINE BUILDER Service: Gastroenterology Author Type: Nurse Practitioner Type: [...] Splenomegaly. Trace ascites Plan for transfer to 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 Will discuss with staff and SM Dr. Barr as well. Normal [facility] Calcium, Ionizedon Calcium, Ionized 1.12 mmol/L Normal 1.08-1.30 [facility] Comp Metabolic Panelon 07-08 Albumin [Mass/Vol] 2.9 g/dL Low 3.9-4.9 [facility] ALP [Catalytic activity/Vol] 60 U/L Normal 38-113 [facility] ALT [Catalytic activity/Vol] 22 U/L Normal 10-54 [facility] Anion gap [Moles/Vol] 8 mmol/L Low 9-18 [facility] AST [Catalytic activity/Vol] 38 U/L Normal 14-40 [facility] Bilirubin [Mass/Vol] 1.6 mg/dL High 0.2-1.3 [facility] Calcium [Mass/Vol] 8.0 mg/dL Low 8.5-10.2 [facility] Chloride [Moles/Vol] 106 mmol/L High 97-105 [facility] CO2 [Moles/Vol] 18 mmol/L Low 22-30 [facility] Creatinine [Mass/Vol] 2.34 mg/dL High 0.73-1.22 [facility] eGFR- Amer. 39 Normal [facility] [...] Hospital Comment on above: Result Comment: The [place] Diabetes Association (ADA) provides guidance for cutoff [...] Standards of Medical Care in Diabetes 2016, [place] Diabetes Association. Diabetes Care. 2016.39(Suppl 1). Potassium [Moles/Vol] 3.9 mmol/L Normal 3.7-5.1 [facility] Protein [Mass/Vol] 4.9 g/dL Low 6.3-8.0 [facility] Sodium [Moles/Vol] 132 mmol/L Low 136-144 [facility] Urea nitrogen [Mass/Vol] 17 mg/dL Normal 9-24 [facility] Lipaseon 07-08-2021 Lipase [Catalytic activity/Vol] 235 U/L High 16-61 [facility] Magnesiumon 07-08-2021 Magnesium [Mass/Vol] 1.4 mg/dL Low 1.7-2.3 [facility] Tacrolimus / [id number] 021 Tacrolimus / FK506 23.3 ng/mL High [...] Test performed by chemiluminescent immunoassay using [employer] Practice Manager. Performed By: #### F K506 ####[facility], [place] [phone] US ABD RIGHT UPPER QUADRANTo n 07-08-2021 [...] 5. Trace ascites in the upper abdomen. Game Protector: GUILLE Transcribe Date/Time: Jul 08 2021 12:28P Dictated by : ROCIO MANZO MD This examination was interpreted and the report reviewed and electronically signed by: ROCIO MANZO MD on Jul 08 2021 12:32PM EST [id number] Normal [facility] US ABD SPLEEN -NBon 07-08-20 US [...] 5. Trace ascites in the upper abdomen. Game Protector: GUILLE Transcribe Date/Time: Jul 08 2021 12:28P Dictated by : ROCIO MANZO MD This examination was interpreted and the report reviewed and electronically signed by: ROCIO MANZO MD on Jul 08 2021 12:32PM EST [id number] Normal [facility] Vancomycinon 07-08-2021 Vancomycin 18.6 ug/mL Normal 10.0-20.0 Primary [...] MCHC (RBC) [Mass/Vol] 36.1 g/dL High 30.5-36.0 [facility] MCV (RBC) [Entitic vol] 100.3 fL High 80.0-100.0 [facility] Platelet mean volume (Bld) [Entitic vol] 11.8 fL Normal 9.0-12.7 [facility] Platelets (Bld) [#/Vol] 45 10*3/uL Low 150-400 [facility] RBC (Bld) [#/Vol] 2.90 10*6/uL Low 4.20-6.00 [facility] WBC (Bld) [#/Vol] 9.23 10*3/uL Normal 3.70-11.00 [facility] CONSULT PROGon 07-07-2021 CONSULT PROG HNO ID: [id number] Author: Valencia Noguera [facility] Service: Pharmacy Author Type: Pharmacist Type: Consult [...] 07/07/20212001 37.3 (H) Valencia Noguera rodrigo Normal [facility] Comp Metabolic Panelon 07-07 Albumin [Mass/Vol] 3.0 g/dL Low 3.9-4.9 [facility] ALP [Catalytic activity/Vol] 70 U/L Normal 38-113 [facility] ALT [Catalytic activity/Vol] 41 U/L Normal 10-54 [facility] Anion gap [Moles/Vol] 9 mmol/L Normal 9-18 [facility] AST [Catalytic activity/Vol] 131 U/L High 14-40 [facility] Bilirubin [Mass/Vol] 4.9 mg/dL High 0.2-1.3 [facility] Calcium [Mass/Vol] 7.9 mg/dL Low 8.5-10.2 [facility] Chloride [Moles/Vol] 105 mmol/L Normal 97-105 [facility] CO2 [Moles/Vol] 18 mmol/L Low 22-30 [facility] Creatinine [Mass/Vol] 1.63 mg/dL High 0.73-1.22 [facility] eGFR- Amer. 59 Normal [facility] [...] Hospital Comment on above: Result Comment: The [place] Diabetes Association (ADA) provides guidance for cutoff [...] Standards of Medical Care in Diabetes 2016, [place] [employer] Association. Diabetes Care. 2016.39(Suppl 1). Potassium [Moles/Vol] 4.1 mmol/L Normal 3.7-5.1 [facility] Protein [Mass/Vol] 5.0 g/dL Low 6.3-8.0 [facility] Sodium [Moles/Vol] 132 mmol/L Low 136-144 [facility] Urea nitrogen [Mass/Vol] 15 mg/dL Normal 9-24 [facility] NURSING PROGon 07-07-2021 NURSING PROG HNO ID: [id number] Author: Preethi Slater RN Service: Nursing Author Type: Registered Nurse Type: Nursing Progress Note Filed: 07/06/2021 11:25 PM Note Text: Nursing Progress Note Patient Name: Chuckie Villalta [place] [address] [address] Transfer Note: Patient transferred from [facility] Room [facility] to [facility] Room [facility] by bed in stable condition with IV fluids, IV antibiotics, and a COMMUNICATION STUDIES PROFESSOR pump with on demand fentanyl. Vital signs obtained, patient oriented to room. Call light within reach. This note was completed by: Preethi Slater RN Normal [facility] NURSING PROG HNO ID: [id number] Author: Delilah Le RN Service: Nursing Author [...] MGT INIT ASSESon 2020 [facility] HNO ID: [id number] Author: Mariulz Salamanca RN Service: Nursing Author Type: Registered Nurse Type: Care Mgt Initial Assessment Filed: 07/06/2021 2:04 PM Note Text: CARE MANAGEMENT: ASSESSMENT AND DISCHARGE PLAN SERVICE DATE: July 06, 2021 SERVICE TIME: 1:59 PM PRIMARY CARE PHYSICIAN: Luis Abdalla DO ADMISSION STATUS: Inpatient MEDICAL: [facility] PLAN MEDICAID Health Insurance: [facility] ([facility] Medicaid) Last Discharge Date: 02/13/20 Is this Within the Past 30 days? Advance Directive: Current Advance Directive: Health Care Power of Clay Modeler In Chart: Yes Up To Date and Valid: Yes Baseline Mental Status Prior to this Illness what was the patient's Baseline Mental Status?: Alert AND Oriented Prior to this illness, has anyone described the patient having any of the following behaviors?: Not Applicable Relationship of the informant to the patient:: Self Primary Contact: Extended Emergency Contact Information Primary Emergency Contact: Remedios Villalta Address: [address] [place] [address] Mobile Relation: Spouse Supportive Patient Contact:: Yes Contact Resources: Family;Significant Other FREEDOM OF CHOICE EXPLAINED: [place] of Choice Given: No Reason Not Given: [...] 06, 2021 TIME: 1:59 PM PAGER/CONTACT #: [phone] Normal [facility] CBC and Differentialon 07-06 Abs Baso 0.00 k/uL Normal <0.11 [facility] Abs [place] 0.64 k/uL Normal <0.87 [facility] Abs Neut 8.13 k/uL High 1.45-7.50 [facility] ANC(includeSEG+BAND ) 8.13 k/uL Normal [facility] Basophils/100 [...] MCHC (RBC) [Mass/Vol] 36.9 g/dL High 30.5-36.0 [facility] MCV (RBC) [Entitic vol] 94.8 fL [facility]21 CONSULT HNO ID: [id number] Author: Og Gibbs MD Service: Gastroenterology Author [...] and hi s transferring the patient to [facility] giving his complex medica history and the need for repeated ERCP Dr. Wilburn reviewed the case too and agreed to transfer the patient to for further care Normal [facility] CONSULT PROGon 07-06-2021 CONSULT PROG HNO ID: [id number] Author: Pearl [facility] Service: Pharmacy Author Type: Pharmacist Type: Consult [...] any questions, please contact Pharmacy at ex [phone]. Age: [age] year old Allergies: ALLERGIES Allergen [...] Levels: No results found for: CHIDI Mann [facility] Normal [facility] Comp Metabolic Panelon 07-06 Albumin [Mass/Vol] 3.5 g/dL Low 3.9-4.9 [facility] ALP [Catalytic activity/Vol] 60 U/L Normal 38-113 [facility] ALT [Catalytic activity/Vol] 60 U/L High 10-54 [facility] Anion gap [Moles/Vol] 15 mmol/L Normal 9-18 [facility] AST [Catalytic activity/Vol] 361 U/L High 14-40 [facility] Bilirubin [Mass/Vol] 6.6 mg/dL High 0.2-1.3 [facility] Calcium [Mass/Vol] 7.8 mg/dL Low 8.5-10.2 [facility] Chloride [Moles/Vol] 102 mmol/L Normal 97-105 [facility] CO2 [Moles/Vol] 15 mmol/L Low 22-30 [facility] Creatinine [Mass/Vol] 1.73 mg/dL High 0.73-1.22 [facility] eGFR- Amer. 55 Normal [facility] [...] [facility] Comment on above: Result Comment: The [place] Diabetes Association (ADA) provides guidance for cutoff [...] Standards of Medical Care in Diabetes 2016, [place] [employer]. Diabetes Care. 2016.39(Suppl 1). Potassium [Moles/Vol] 4.3 mmol/L Normal 3.7-5.1 [facility] Protein [Mass/Vol] 5.2 g/dL Low 6.3-8.0 [facility] Sodium [Moles/Vol] 132 mmol/L Low 136-144 [facility] Urea nitrogen [Mass/Vol] 17 mg/dL Normal 9-24 [facility] ED NOTEon 07-06-2021 ED NOTE HNO ID: [id number] Author: Marcela Corley RN Service: Nursing Author Type: Registered Nurse Type: ED Notes Filed: 07/06/2021 4:57 AM Note Text: Report to Loraine RENAE. Normal [facility] ED NOTE HNO ID: [id number] Author: Marcela Corley RN Service: Nursing Author Type: Registered Nurse Type: ED Notes Filed: 07/06/2021 4:51 AM Note Text: Pt resting in bed at this time. Call light within reach, will continue to monitor. Normal [facility] Expedited [id number] 07-06-20 SARS-CoV-2 (COVID-19) RNA NOLBERTO+probe Ql (Unsp [...] NURSING PROGon 07-06-2021 NURSING PROG HNO ID: [id number] Author: Loraine Ya RN Service: Nursing Author [...] are detected. IMPRESSION: No acute radiographic abnormality. Game Protector: PSCB Transcribe Date/Time: Jul 05 2021 11:38P Dictated by : RIK YUN MD This examination was interpreted and the report reviewed and electronically signed by: RIK YUN MD on Jul 05 2021 11:39PM EST [id number] [facility] 07-05-2021 aPTT Coag (Bld) [Time] 22.6 s Low 23.0-32.4 [facility] Comment on above: Result Comment: Unfr [...] laboratory APTT reagent in use throughout the [facility]. Acetaminophenon 07-05-2021 Acetaminophen [Mass/Vol] ug/mL Low 10-30 [facility] Comment on above: Result Comment: Toxi c > 150 ug/mL 4 hours post ingestion The Ginger Akins nomogram can be used to estimate the probability of hepatotoxicity via the relationship of plasma acetaminophen concentration to the post ingestion interval. (Gareth. Pediatrics. 1975. 55:871 to 876 and Ginger et al. Arch Extra Gang Supervisor Med. 1981. 141:380 to 385). Reference ranges and high/low indicator flags are provided as general guidelines only. The treating physician must determine appropriate target levels/dosing based on the specific clinical situation. Blood Cultureon 07-05-2021 Bacteria identified Cx Nom (Bld) Culture Result - No growth 5 days Normal [facility] Comment on above: Performed By: #### B LCUL ####[facility] [address] [place], [place] [phone] CBC and Differentialon 07-05 Abs Baso 0.00 k/uL Normal <0.11 [facility] Comment on above: Performed By: #### C BCDIF ####[facility] [place], [place] [phone] Abs [place] 0.97 k/uL High <0.87 [facility] Comment on above: Performed By: #### C BCDIF ####[facility] [place], [place] [phone] Abs Neut 28.35 k/uL High 1.45-7.50 [facility] Comment on above: Performed By: #### C BCDIF ####[place] [address] [address] [place] [phone] Anisocytosis Ql (Bld) Present Normal [facility] Comment on above: Performed By: #### C BCDIF ####[place] [address] [address] [place] [phone] Basophils/100 WBC (Bld) 0.0 % Normal [facility] Comment on above: Performed By: #### C BCDIF ####[place] [address] [address] [place] [phone] DTYPE Manual Diff Normal [facility] Comment on above: Performed By: #### C BCDIF ####[place] [address] [place] [phone] Eosinophils (Bld) [#/Vol] 0.00 10*3/uL Normal <0.46 [facility] Comment on above: Performed By: #### C BCDIF ####[place] [address] [place] [phone] Eosinophils/100 WBC (Bld) 0.0 % Normal [facility] Comment on above: Performed By: #### C BCDIF ####[place] [address] [place] [phone] Erythrocyte distribution width (RBC) [Ratio] 15.1 % High 11.5-15.0 [facility] Comment on above: Performed By: #### C BCDIF ####[place] [address] [place] [phone] Hematocrit (Bld) [Volume fraction] 43.2 % Normal 39.0-51.0 [facility] Comment on above: Performed By: #### C BCDIF ####[place] [address], [place] [phone] Hemoglobin (Bld) [Mass/Vol] 16.2 g/dL Normal 13.0-17.0 [facility] Comment on above: Performed By: #### C BCDIF ####[address] [phone] Lymphocytes (Bld) [#/Vol] 0.00 10*3/uL Low 1.00-4.00 [facility] Comment on above: Performed By: #### C BCDIF ####[address] [phone] Lymphocytes/100 WBC (Bld) 0.0 % Normal [facility] Comment on above: Performed By: #### C BCDIF ####[address] [phone] MCH 35.1 pG High 26.0-34.0 [facility] Comment on above: Performed By: #### C BCDIF ####[address] [phone] MCHC (RBC) [Mass/Vol] 37.5 g/dL High 30.5-36.0 [facility] Comment on above: Performed By: #### C BCDIF ####[address] [phone] MCV (RBC) [Entitic vol] 93.7 fL Normal 80.0-100.0 [facility] Comment on above: Performed By: #### C BCDIF ####[address] [phone] Monocytes/100 WBC (Bld) 3.3 % Normal [facility] Comment on above: Performed By: #### C BCDIF ####[address] [phone] Neutrophils/100 WBC (Bld) 96.7 % Normal [facility] Comment on above: Performed By: #### C BCDIF ####[address] [phone] Platelet Estimate Platelet estimate adequate Normal [facility] Comment on above: Performed By: #### C BCDIF ####[facility] [place], [place] [phone] Platelet mean volume (Bld) [Entitic vol] 11.6 fL Normal 9.0-12.7 [facility] Comment on above: Performed By: #### C BCDIF ####[address] [phone] Platelets (Bld) [#/Vol] 173 10*3/uL Normal 150-400 [facility] Comment on above: Performed By: #### C BCDIF ####[facility] [place] [address] [phone] Polychromasia Slight Normal [facility] Comment on above: Performed By: #### C BCDIF ####[address] [phone] RBC (Bld) [#/Vol] 4.61 10*6/uL Normal 4.20-6.00 [facility] Comment on above: Performed By: #### C BCDIF ####[address] [phone] WBC (Bld) [#/Vol] 29.32 10*3/uL High 3.70-11.00 [facility] Comment on above: Result Comment: Resu lt checked and verified No clot detected. Performed By: #### C BCDIF ####[address] [phone] CONSULT PROGon 07-05-2021 CONSULT PROG HNO ID: [id number] Author: Pearl Mann RPh Service: Pharmacy Author [...] any questions, please contact Pharmacy at ex [phone]. Age: [age] year old Allergies: ALLERGIES Allergen [...] Levels: No results found for: CHIDI Mann, [facility] Normal [facility] CT ABD/PEL WO IVCONon 2020 CT ABD/PEL WO IVCON * * *Final Report* * * DATE OF EXAM: Jul 05 2021 7:05PM [facility] 0531 - CT ABD/PEL WO IVCON [...] abnormality. Lumbosacral pars defects. Lower thorax: Unremarkable. Crisis Clinician (topogram) images: No additional findings. IMPRESSION: Extensive pancreatitis with inflammatory changes surrounding the transverse colon, spleen and retroperitoneum. Small volume ascites is present. Extent of pancreatic necrosis cannot be assessed on a noncontrast examination. Game Protector: GUILLE Transcribe Date/Time: Jul 05 2021 7:12P Dictated by : SPIKE FUNES MD This examination was interpreted and the report reviewed and electronically signed by: SPIKE FUNES MD on Jul 05 2021 7:23PM EST [id number] Normal [facility] Comp Metabolic Panelon 07-05 Albumin [Mass/Vol] 5.0 g/dL High 3.9-4.9 [facility] Comment on above: Performed By: #### C BCDIF ####[address] [phone] ALP [Catalytic activity/Vol] 77 U/L Normal 38-113 [facility] Comment on above: Performed By: #### C BCDIF ####[address] [phone] ALT [Catalytic activity/Vol] 34 U/L Normal 10-54 [facility] Comment on above: Performed By: #### C BCDIF ####[address] [phone] Anion gap [Moles/Vol] 23 mmol/L High 9-18 [facility] Comment on above: Performed By: #### C BCDIF ####[address] [phone] AST [Catalytic activity/Vol] 69 U/L High 14-40 [facility] Comment on above: Performed By: #### C BCDIF ####[address] [phone] Bilirubin [Mass/Vol] 5.3 mg/dL High 0.2-1.3 [facility] Comment on above: Performed By: #### C BCDIF ####[address] [phone] Calcium [Mass/Vol] 9.5 mg/dL Normal 8.5-10.2 [facility] Comment on above: Performed By: #### C BCDIF ####[address] [phone] Chloride [Moles/Vol] 92 mmol/L Low 97-105 [facility] Comment on above: Performed By: #### C BCDIF ####[address] [phone] CO2 [Moles/Vol] 15 mmol/L Low 22-30 [facility] Comment on above: Performed By: #### C BCDIF ####[address] [phone] Creatinine [Mass/Vol] 2.53 mg/dL High 0.73-1.22 [facility] Comment on above: Performed By: #### C BCDIF ####[address] [phone] eGFR- Amer. 35 Normal [facility] Comment on above: Performed By: #### C BCDIF ####[address] [phone] eGFR-All Other Races 29 . Normal Primary [...] at [email or web address]. Performed By: #### C BCDIF ####[address] [phone] Glucose [Mass/Vol] 167 mg/dL High 74-99 [facility] Comment on above: Result Comment: The [place] Diabetes Association (ADA) provides guidance for cutoff [...] Standards of Medical Care in Diabetes 2016, [place] [employer]. Diabetes Care. 2016.39(Suppl 1). Performed By: #### C BCDIF ####[address] [phone] Potassium [Moles/Vol] 5.5 mmol/L High 3.7-5.1 [facility] Comment on above: Performed By: #### C BCDIF ####[address] [phone] Protein [Mass/Vol] 7.6 g/dL Normal 6.3-8.0 [facility] Comment on above: Performed By: #### C BCDIF ####[address] [phone] Sodium [Moles/Vol] 130 mmol/L Low 136-144 [facility] Comment on above: Performed By: #### C BCDIF ####[address] [phone] Urea nitrogen [Mass/Vol] 20 mg/dL Normal 9-24 [facility] Comment on above: Performed By: #### C BCDIF ####[address] [phone] ED NOTEon 07-05-2021 ED NOTE HNO ID: [id number] Author: Max Styles RN Service: ? Author [...] NOTEon 07-05-2021 ED PROV NOTE HNO ID: [id number] Author: Will Mccormick DO Service: Emergency Medicine [...] Noteon 07-05-2021 ED Triage Note HNO ID: [id number] Author: Brian Ash I, PA-C Service: Emergency Medicine Author Type: Physician Graphite Mill Operator Type: ED Triage Notes Filed: 07/05/2021 6:11 [...] intoxication HISTORY PHYSICALon HISTORY PHYSICAL HNO ID: [id number] Author: Lisseth Raymond APRN.CNP Service: Hospital Medicine Author Type: Nurse Practitioner Type: HANDP Filed: 07/05/2021 9:37 PM Note Text: DEPARTMENT OF HOSPITAL MEDICINE HISTORY AND PHYSICAL EXAM SERVICE DATE: 07/05/2021 Code Status: Not on file SERVICE TIME: 9:27 PM Primary Care Physician: Luis Abdalla, DO NIGHT AND WEEKEND COVERAGE: [place] COVERAGE: : [phone], please contact via [employer] Nights: [phone], please page CC Hospitalist Night coverage pager [phone] Subjective CHIEF COMPLAINT: Epigastric pain going through [...] on above: Performed By: #### C BCDIF ####[facility] [place], [place] [phone] Magnesiumon 07-05-2021 Magnesium [Mass/Vol] 0.8 mg/dL Low 1.7-2.3 [facility] Comment on above: Result Comment: No c all per procedure. 07/05/21 1847 Performed By: #### C BCDIF ####[facility] [place], [place] [phone] Protimeon 07-05-2021 PT INR 1.3 Normal 0.9-1.3 [facility] Comment on above: Result Comment: Aster min K Antagonist (VKA) Therapeutic Range: INR 2 to 3 (Target INR of 2.5) Note: For patients treated with VKA drugs, such as warfarin, the [place] [employer] 2012 Guideline recommends [...] [facility] 02-25-2021 L --- Specimen: [id number] Received: 02/25/21 Status: LU Wayne Num: [id number] Spec Type: Surgical Subm Dr: Josiah Pompa MD Tissues: A Disc - Intervertebral/Lumbar/C ervical (CERVICAL) Procedures: HE Stain, Gross/Micro L3 Patient Age/Sex Location Account Attending Physician Chuckie Villalta 35/M [place] [id number] Josiah Pompa MD SPEC NUM: [id number] RECD: 02/25/21 STATUS: LU WAYNE NUM: [id number] VJ: 02/25/21 DR: Josiah Pompa MD ENTERED: 02/25/21 [facility] DR: LOUIE TYPE: Surgical DEPT: [...] of montanez-pink, rubbery and ragged fibrous tissue. Take Away Worker sections are submitted in one cassette labeled A1. (JAYCOB/YJ) Microscopic Description One glass slide with H E stained material has been examined. The microscopic findings support the above pathologic diagnosis. CPT Codes 81409 Specimen: [id number] Received: 02/25/21 Status: LU Wayne Num: [id number] Spec Type: Surgical Subm Dr: Josiah Pompa MD Tissues: A Disc - Intervertebral/Lumbar/C ervical (CERVICAL) Procedures: HE Stain, Gross/Micro L3 Patient: Chuckie Villalta [id number] (Continued) Signed (signature on file) Lucretia Lund MD 02/26/21 1655 [facility] XR cervical spine 1Von 02-25 XR cervical spine 1V [place] [address] XRay Report Signed Patient: Chuckie Villalta MR#: [id number] 56 : 1985 Acct:[id number] Age/Sex: 35 / M ADM Date: 02/25/21 Loc: Room: 8F4684-0 Type: [facility] Attending Dr: Josiah [...] Carlos Solano M.D.02/25/2021 4:31 PM Dictation Location: [place] [address] Transcribed By: [facility] 02/25/21 163 Dictated By: Carlos Solano II, MD 02/25/21 1630 Signed By: 02/25/21 163 Normal [facility] Basic Metabolic Panelon 01-25 Calcium [Mass/Vol] 9.3 mg/dL Normal 8.2-10.2 [facility] Comment on above: Result Comment: PERF ORMED BY: [place] [address] PATHOLOGIST CURRICULUM DEVELOPER ALFRED TRACY M.D. Performed By: #### B MP, CBC #### [address] Chloride [Moles/Vol] 99 mmol/L Normal 95-114 [facility] Comment on above: Performed By: #### B MP, CBC #### [facility] [address] [place] [address] [place] CO2 [Moles/Vol] 20.5 mmol/L Low 22.0-30.0 [facility] Comment on above: Performed By: #### B MP, CBC #### [facility] [address] [place] [address] [place] Creatinine [Mass/Vol] 1.31 mg/dL High 0.64-1.27 [facility] Comment on above: Performed By: #### B MP, CBC #### [facility] [address] [place] [address] [place] Estimated GFR ( Marissa > 60 Normal [facility] Comment on above: Result Comment: GFR estimated reference range: According to KDOQI guidelines, <60 ml/min/1.73m2 is sufficient to diagnose a patient with chronic kidney disease. Performed By: #### B MP, CBC #### [address] Estimated GFR (Non- Am > 60 Normal [facility] Comment on above: Performed By: #### B MP, CBC #### [address] Glucose [Mass/Vol] 105 mg/dL High 70-100 [facility] Comment on above: Result Comment: [place] Glucose Reference Range is dependent on time and content of last meal. Glucose of more than 200 mg/dL in a nonstressed, ambulatory subject supports the diagnosis of Diabetes Mellitus. ADA recommended reference range Performed By: #### B MP, CBC #### [address] Potassium [Moles/Vol] 4.4 mmol/L Normal 3.5-5.1 [facility] Comment on above: Performed By: #### B MP, CBC #### [place] [address] [place] Sodium [Moles/Vol] 133 mmol/L Low 136-146 [facility] Comment on above: Performed By: #### B MP, CBC #### [address] Urea nitrogen [Mass/Vol] 11 mg/dL Normal 9-23 [facility] Comment on above: Performed By: #### B MP, CBC #### [address] [place]19 [facility] [place] SARS-CoV-2 (COVID-19) RNA NOLBERTO+probe Ql (Unsp spec) Negative Normal Negative [facility] Comment on above: Order Comment: Healt hcare Worker?: N Result Comment: Testing for SARS-CoV-2 by RT-PCR This test was developed and its performance characteristics determined by [employer] [facility]) and validated at the [facility]. This test has not been FDA [...] is terminated or revoked sooner. PERFORMED BY: [place] [address] PATHOLOGIST CURRICULUM DEVELOPER ALFRED TRACY M.D. Performed By: #### C OVID 19 [facility] [place] [facility] #### [address] Complete Blood Count Auto Di ffon 02-21-2021 Basophils (Bld) [#/Vol] 0.0 10*3/uL Normal 0.0-0.2 [facility] Comment on above: Result Comment: PERF ORMED BY: [place] [address] PATHOLOGIST CURRICULUM DEVELOPER ALFRED TRACY M.D. Performed By: #### B MP, CBC #### [address] Basophils/100 WBC (Bld) 0.5 % Normal . [facility] Comment on above: Performed By: #### B MP, CBC #### [place] [address] [place] Eosinophils (Bld) [#/Vol] 0.1 10*3/uL Normal 0.0-0.45 [facility] Comment on above: Performed By: #### B MP, CBC #### [place] [address] [place] Eosinophils/100 WBC (Bld) 1.2 % Normal . [facility] Comment on above: Performed By: #### B MP, CBC #### [facility] [address] Erythrocyte distribution width (RBC) [Ratio] 14.0 % Normal 12.0-14.8 [facility] Comment on above: Performed By: #### B MP, CBC #### [facility] [address] Hematocrit (Bld) [Volume fraction] 39.2 % Normal 38.8-50.0 [facility] Comment on above: Performed By: #### B MP, CBC #### [facility] [address] Hemoglobin (Bld) [Mass/Vol] 13.9 g/dL Normal 13.0-17.0 [facility] Comment on above: Performed By: #### B MP, CBC #### [address] Lymphocytes (Bld) [#/Vol] 1.0 10*3/uL Normal 1.00-4.8 [facility] Comment on above: Performed By: #### B MP, CBC #### [address] Lymphocytes/100 WBC (Bld) 9.5 % Normal . [facility] Comment on above: Performed By: #### B MP, CBC #### [facility] [address] MCH (RBC) [Entitic mass] 32.1 pg Normal 27.5-35.2 [facility] Comment on above: Performed By: #### B MP, CBC #### [facility] [address] MCV (RBC) [Entitic vol] 90.4 fL Normal 83.5-101 [facility] Comment on above: Performed By: #### B MP, CBC #### [address] Mean Corpuscular HGB Conc 35.5 g/dL Normal 32.5-35.6 [facility] Comment on above: Performed By: #### B MP, CBC #### [facility] [address] [place] [address] [place] Monocytes (Bld) [#/Vol] 0.6 10*3/uL Normal 0.0-0.8 [facility] Comment on above: Performed By: #### B MP, CBC #### [facility] [address] [place] [address] [place] Monocytes/100 WBC (Bld) 6.0 % Normal . [facility] Comment on above: Performed By: #### B MP, CBC #### [facility] [address] [place] [address] [place] Neutrophils (Bld) [#/Vol] 8.8 10*3/uL High 1.8-7.7 [facility] Comment on above: Performed By: #### B MP, CBC #### [facility] [address] [place] [address] [place] Neutrophils/100 WBC (Bld) 82.8 % Normal . [facility] Comment on above: Performed By: #### B MP, CBC #### [facility] [address] [place] [address] [place] Nucleated RBC/100 WBC (Bld) [Ratio] 0.0 % Normal 0-0.5 [facility] Comment on above: Performed By: #### B MP, CBC #### [facility] [address] [place] [address] [place] Platelet mean volume (Bld) [Entitic vol] 8.4 fL Normal 6.6-10.1 [facility] Comment on above: Performed By: #### B MP, CBC #### [facility] [address] [place] [phone] [place] Platelets (Bld) [#/Vol] 205 10*3/uL Normal 150-450 [facility] Comment on above: Performed By: #### B MP, CBC #### [facility] [address] [place] [phone] [place] RBC (Bld) [#/Vol] 4.34 10*6/uL Normal 3.90-5.60 [facility] Comment on above: Performed By: #### B MP, CBC #### [facility] [address] WBC (Bld) [#/Vol] 10.6 10*3/uL Normal 4.5-11.0 [facility] Comment on above: Performed By: #### B MP, CBC #### [facility] [address] ECG 12 lead ECGon 02-18-2021 ECG 12 lead ECG [facility] [place] [address] [place] [address] Electrocardiograph Report Signed Patient: Chuckie Villalta MR#: [id number] 56 : 1985 Acct:[id number] Age/Sex: 35 / M ADM Date: 02/18/21 Loc: Room: Type: [facility] Attending Dr: Josiah Pompa MD Ordering Provider: [...] 02/18/21 1413 Signed By: 02/18/21 1610 Normal [facility] MRI CSPINE WO CONon 12-07-19 [...] by: ANGIE MCDANIEL Date: 2020-12-06 12:00 Normal [facility] Vital Signs Date Time Vital Sign Value Performing Clinician Facility 02-17-2025 10:10040 Body height 185.42 cm Service Seeking Work Phone: [facility] 02-17-2025 10:10-0400 Body mass index (BMI) [Ratio] 32.8 kg/m2 [employer] Seeking Work Phone: [facility] 02-17-2025 10:10-040 Body weight 112.94 kg Service Seeking Work Phone: [facility] 02-17-2025 10:10-0400 Diastolic blood pressure 80 mm[Hg] Service Seeking Work Phone: [facility] 02-17-2025 10:10-0400 Heart rate 85 /min Luis Ball DO Work Phone: [facility] 02-17-2025 10:10-0400 Respiratory rate 12 /min Luis Ball DO Work Phone: [facility] 02-17-2025 10:10-0400 Systolic blood pressure 110 mm[Hg] Luis Ball DO Work Phone: [facility] 09-02-2024 14:12-0500 Body height 185.42 cm [facility] 09-02-2024 14:12-0500 Body mass index (BMI) [Ratio] 31.8 kg/m2 [facility] 09-02-2024 14:12-0500 Body weight 109.42 kg [facility] 09-02-2024 14:12-0500 Diastolic blood pressure 72 mm[Hg] [facility] 09-02-2024 14:12-0500 Heart rate 97 /min [facility] 09-02-2024 14:12-0500 Respiratory rate 12 /min [facility] 09-02-2024 14:12-0500 Systolic blood pressure 95 mm[Hg] [facility] 02-29-2024 13:25-0400 Body height 185.42 cm [facility] 02-29-2024 13:25-0400 Body mass index (BMI) [Ratio] 29 kg/m2 [facility] 02-29-2024 13:25-0400 Body weight 99.79 kg [facility] 02-29-2024 13:25-0400 Diastolic blood pressure 91 mm[Hg] [facility] 02-29-2024 13:25-0400 Heart rate 111 /min [facility] 02-29-2024 13:25-0400 Respiratory rate 12 /min [facility] 02-29-2024 13:25-0400 Systolic blood pressure 161 mm[Hg] [facility] 06-20-2023 16:12-0500 Body temperature 96.98 [degF] [facility] 06-20-2023 16:12-0500 Diastolic blood pressure 85 mm[Hg] [facility] 06-20-2023 16:12-0500 Heart rate 114 /min [facility] 06-20-2023 16:12-0500 Respiratory rate 18 /min [facility] 06-20-2023 16:12-0500 SaO2% (BldA) [Mass fraction] 100 % [facility] 06-20-2023 16:12-0500 Systolic blood pressure 160 mm[Hg] [facility] 06-11-2023 10:00-0500 Body height 185.42 cm Luis Ball Other [facility] [employer] Other 06-11-2023 10:00-0500 Body mass index (BMI) [Ratio] 29.66 kg/m2 Luis Ball Other [employer] [facility] [employer] Other 06-11-2023 10:00-0500 Body weight 101.97 kg Luis Ball Other [employer] [facility] [employer] Other 06-11-2023 10:00-0500 Diastolic blood pressure 97 mm[Hg] Luis Ball Other [employer] Other 06-11-2023 10:00-0500 Respiratory rate 12 /min Luis Ball Other [employer] Other 06-11-2023 10:00-0500 Systolic blood pressure 141 mm[Hg] Luis Ball Other [employer] Other 03-05-2023 09:45-0400 Body height 185.42 cm Luis Ball Other [employer] Other 03-05-2023 09:45-0400 Body mass index (BMI) [Ratio] 29.6 kg/m2 Luis Ball Other [employer] Other 03-05-2023 09:45-0400 Body weight 101.79 kg Luis Ball Other [employer] Other 03-05-2023 09:45-0400 Diastolic blood pressure 109 mm[Hg] Luis Ball Other [employer] Other 03-05-2023 09:45-0400 Systolic blood pressure 153 mm[Hg] Luis Ball Other [employer] Other 09-12-2022 10:30-0500 Body height 185.42 cm Luis Ball Other [employer] Other 09-12-2022 10:30-0500 Body mass index (BMI) [Ratio] 29.95 kg/m2 Luis Ball Other [employer] Other 09-12-2022 10:30-0500 Body weight 102.97 kg Luis Ball Other [employer] Other 09-12-2022 10:30-0500 Diastolic blood pressure 86 mm[Hg] Luis Ball Other [employer] Other 09-12-2022 10:30-0500 Respiratory rate 12 /min Luis Ball Other [employer] Other 09-12-2022 10:30-0500 Systolic blood pressure 132 mm[Hg] Luis Ball Other [employer] Other Encounters Encounter Date Encounter Type Care Provider Facility Start: 03-09-2025 End: 03-09-2025 ambulatory NICKOLAS MCCALLUM Facility:[facility] Start: 02-17-2025 End: 02-17-2025 ambulatory Luis Ball DO Work Phone: [facility] Work Phone: Start: 02-17-2025 End: 02-17-2025 Patient encounter procedure Luis Abdalla -[facility] Work Phone: Start: 01-26-2025 End: 01-26-2025 Emergency department patient visit Ralf Carbajal [facility] Start: 01-06-2025 End: 04-12-2025 ambulatory LUIS ABDALLA Facility:[facility] Start: 11-21-2024 End: 11-21-2024 ambulatory Vicente Thompson MD Facility:[facility] Start: 11-14-2024 End: 11-14-2024 ambulatory Vicente Thompson MD Facility:[facility] Start: 09-02-2024 End: 09-02-2024 ambulatory [facility] Work Phone: Start: 09-02-2024 End: 09-02-2024 Encounter for general adult medical examination without abnormal findings [facility] Start: 09-02-2024 End: 09-02-2024 Patient encounter procedure [facility] Physician [facility] Work Phone: Start: 09-01-2024 Patient encounter status [facility] Start: 08-23-2024 Non-patient / Non-visit [facility] Physician [facility] Work Phone: Start: 08-20-2024 Non-patient / Non-visit [facility] Physician [facility] Work Phone: Start: 07-04-2024 End: 07-04-2024 ambulatory Vicente Thompson MD Facility:[facility] Start: 04-04-2024 End: 04-04-2024 ambulatory Vicente Thompson MD Facility:[facility] Start: 03-07-2024 End: 03-07-2024 ambulatory Vicente Thompson MD Facility:[facility] Start: 02-29-2024 End: 02-29-2024 ambulatory [facility] Work Phone: Start: 02-29-2024 End: 02-29-2024 Patient encounter procedure [facility]: Start: 12-28-2023 End: 12-28-2023 ambulatory Vicente Thompson MD Facility:[facility] Start: 06-20-2023 End: 06-20-2023 Emergency department patient visit Wilmer Rosenberg [facility] Start: 06-11-2023 End: 06-11-2023 ambulatory Luis Abdalla Other [employer] Other Start: 06-11-2023 Encounter for genera l adult medical examination without abnormal findings [facility] Start: 06-11-2023 Periodic preventive med est patient 18-39 yrs [facility] Start: 03-05-2023 End: 03-05-2023 ambulatory Luis Abdalla Other [employer] Other Start: 03-05-2023 Office outpatient vi sit 15 minutes Luis [facility] Start: 09-22-2022 Telephone encounter 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 Comment on above: Care Coordination ([facility]) Start: 09-12-2022 End: 09-12-2022 ambulatory Luis Abdalla Other [employer]: [employer] Other Start: 09-12-2022 Office outpatient vi sit 25 minutes Luis Abdalla [facility] Start: 09-04-2022 Orders Only Betina Barr MD Work Phone: Gastroenterology Comment on above: Liver transplant rec ipient (HCC) (Primary Dx) Endoscopy Call Start: 07-22-2022 ambulatory Nadja Spencer RN [facility] Comment on above: holiday obs erved July 28 Start: 07-22-2022 E-mail encounter fro m caregiver Nadja Spencer RN [facility] Start: 05-01-2022 Refill Tuyet Rivera PA-C Work Phone: [id number] Comment on above: Refill Request Start: 03-24-2022 Telephone encounter [facility] Comment on above: Reminder To Have Lab s Drawn Start: 03-11-2022 Telephone encounter Nadja [facility] Comment on above: Covid19 Concern Start: 02-25-2022 End: 02-25-2022 ambulatory LUIS ABDALLA Facility:[facility] Start: 02-25-2022 End: 02-25-2022 Patient encounter procedure Orsemariese Roger [facility] Comment on above: Uncomplicated alcoho l dependence (HCC) Start: 02-20-2022 End: 02-20-2022 Social Work Alessia Marie [facility] Start: 12-27-2021 End: 12-27-2021 Subsequent hospital visit by physician Ct Prep Qb Radiology Start: 12-10-2021 End: 12-10-2021 ambulatory Aidan Larios MD Work Phone: Transplant Center Comment on above: Liver replaced by tr ansplant (HCC) (Primary Dx); Need for prophylactic immunotherapy Start: 12-10-2021 End: 12-10-2021 Telemedicine consultation with patient Aidan Larios MD Work Phone: [facility] Start: 11-08-2021 Telephone encounter Nadja [...] profile DTAP,TDAP,TD (2 - Td or Tdap) [facility] Start: 07-07-2027 LIPID SCREEN LIPID SCREEN [facility] Start: 07-16-2026 LIPID SCREEN LIPID SCREEN [facility] Start: 01-15-2024 PNEUMOCOCCAL (3 - PP SV23 if available, else PCV20) PNEUMOCOCCAL (3 - PPSV23 if available, else PCV20) [facility] Start: 01-15-2024 PNEUMOCOCCAL (3 - PP SV23 or PCV20) PNEUMOCOCCAL (3 - PPSV23 or PCV20) [facility] Start: 10-05-2023 TWO PNEUMOVAX 5 YEAR S APART PRIOR TO AGE 65 (#2) TWO PNEUMOVAX 5 YEARS APART PRIOR TO AGE 65 (#2) [facility] Start: 02-24-2023 Adult depression screening assessment DEPRESSION SCREENING [facility] Start: 12-02-2022 End: 09-04-2023 ERCP ERCP Endoscopy Routine Biliary stricture Expected: 12/02/2022, Expires: 09/04/2023 [facility] Work Phone: Comment on above: Expected: 12/02/2022 , Expires: 09/04/2023 Start: 07-27-2022 DEPRESSION ASSESSMENT DEPRESSION ASS ESSMENT [facility] Start: 03-27-2022 Influenza vaccination [facility] Start: 12-30-2021 End: 03-01-2022 Amylase [Enzymatic activity/volume] in Serum or Plasma AMYLASE BLD Lab Routine Expected: 12/30/2021, Expires: 03/01/2022 [facility] Work Phone: Comment on above: Expected: 12/30/2021 , Expires: 03/01/2022 Start: 12-30-2021 End: 03-01-2022 Lipase [Enzymatic activity/volume] in Serum or Plasma LIPASE BLD Lab Routine Expected: 12/30/2021, Expires: 03/01/2022 [facility] Work Phone: Comment on above: Expected: 12/30/2021 , Expires: 03/01/2022 Start: 12-24-2021 End: 01-09-2023 Ct abdomen w/contrast material CT ABDOMEN W IVCON Radiology Routine Expected: 12/24/2021 (Approximate), Expires: 01/09/2023 [facility] Work Phone: Comment on above: Expected: 12/24/2021 (Approximate), Expires: 01/09/2023 Start: 07-27-2021 DEPRESSION ASSESSMENT DEPRESSION ASS ESSMENT [facility] Start: 07-10-2020 Adult depression screening assessment DEPRESSION SCREENING [facility] Start: 07-07-2020 MENINGOCOCCAL B: Consider based on risk (3 of 4 - Increased Risk Bexsero 2-dose series) MENINGOCOCCAL B: Consider based on risk (3 of 4 - Increased Risk Bexsero 2-dose series) [facility] Start: 03-11-2019 MENINGOCOCCAL CONJUG ATE (2 - Risk 2-dose series) MENINGOCOCCAL CONJUGATE (2 - Risk 2-dose series) [facility] Start: 2004 SHINGRIX VACCINE (1 of 2) SHINGRIX VACCINE (1 of 2) [facility] Start: 11-01-2003 ANNUAL PCP TEAM EBD SPECIAL EDUCATION TEACHER BRANDON DISEASE VISIT ANNUAL PCP TEAM CHRONIC DISEASE VISIT [facility] Start: 11-01-2003 BP CONTROLLED (<130/80) BP CONTROLLE D (<130/80) [facility] Start: 1997 COVID-19 VACCINE (1) COVID-19 VACCIN E (1) [facility] Start: 1990 COVID-19 VACCINE (#1) COVID-19 VACCI NE (#1) [facility] Start: 05-02-1986 COVID-19 VACCINE (#1) COVID-19 VACCI NE (#1) [facility] Immunizations Immunization Date Immunization Notes Care Provider Sharona wahl 04-18-2020 influenza virus vacc ine, split virus (incl. purified surface antigen) Luis Abdalla Other [employer]: [employer] Other 04-18-2020 influenza virus vacc ine, unspecified formulation [facility] 07-07-2019 meningococcal B vacc ine, recombinant, OMV, adjuvanted Nadja Spencer RN [facility] 05-20-2019 hepatitis A and hepatitis B vaccine Nadja Spencer RN [facility] 05-20-2019 influenza, injectabl e, quadrivalent, contains preservative Nadja Spencer RN [facility] 01-14-2019 haemophilus influenz ae type b vaccine, PRP-OMP conjugate Nadja Spencer RN [facility] 01-14-2019 meningococcal B vacc ine, recombinant, OMV, adjuvanted Nadja Spencer RN [facility] 01-14-2019 meningococcal oligosaccharide (groups A, C, Y and W-135) diphtheria toxoid conjugate vaccine (MCV4O) Nadja Spencer RN [facility] 01-14-2019 pneumococcal conjuga te vaccine, 13 valent Nadja Spencer RN [facility] 10-04-2018 hepatitis A and hepatitis B vaccine Nadja Spencer RN [facility] 10-04-2018 pneumococcal polysaccharide vaccine, 23 valent Nadja Spencer RN [facility] 07-01-2018 hepatitis A and hepatitis B vaccine Nadja Spencer RN [facility] 07-01-2018 influenza, injectabl e, quadrivalent, contains preservative Nadja Spencer RN [facility] 07-01-2018 pneumococcal conjuga te vaccine, 13 valent Ndaja Spencer RN [facility] 07-01-2018 tetanus toxoid, redu simon diphtheria toxoid, and acellular pertussis vaccine, adsorbed Nadja Spencer RN [facility] 04-30-2009 hepatitis B vaccine, adult dosage Nadja Spencer RN [facility] Payers Date Payer Category [place]ayer [place] [id number] 2021-Present [phone] [address] [place] [address] Medicaid [id number] 2021 Medicaid [id number] 2021 Medicare MEDICARE MEDICAR E A AND B [id number] 2021-Present [phone] [address] [address] [place] [address] Medicare [id number] 2021 Medicare [id number] 2021 Medicaid [id number] 2021 Medicare [id number] 2020 Medicaid [facility] MEDICAID [facility] MEDICAID [id number] 2020-Present [phone] [address] [place] [address] Medicaid [id number] 1985 Unknown [id number] 1985 Unknown [id number] 1985 Unknown [id number] 1985 Unknown [id number] 1985 Unknown [id number] 1985 Unknown [id number] 1985 Unknown [id number] 1985 Unknown [id number] 1985 Unknown [id number] 1959 Unknown [id number] Self-pay Self Pay [id number] Social History Date Type Detail Facility Start: 05-04-2018 End: 02-29-2024 Tobacco smoking status KYIS Never smoked tobacco [facility] Start: 05-04-2018 Tobacco use and exposure Former smokeless tobacco user [facility] Start: 09-17-2021 End: 09-04-2022 Alcohol intake Current drinker of alcohol (finding) [facility] Start: 07-05-2021 History SDOH Alcohol Comment occasionally [facility] Start: 1985 Sex Assigned At Not on file [facility] Start: 10-20-2021 End: 2021 Exposure to SARS-CoV-2 (event) Not sure [facility] Sex Assigned At [facility] Tobacco smoking status [facility] Start: 1985 Sex Assigned At Male F [facility] Start: 11-07-2009 End: 09-02-2024 Sex Male (finding) [facility] Medical Equipment Procedure Code Equipment Code Equipment Origin al Text Equipment Identifier Dates Stent Axios 15mm 24mm 138mm 10.8fr Nitinol Silicone 10mm 146mm Pancreatic - [id number] Start: 11-01-2021 Stent 10fr Duode nal Bend Plastic 12cm Biliary Temporary Rapid Exchange - [id number] Start: 09-04-2022 Spinal fixation plate, non-bioabsorbable ()[id number] FDA Start: 02-25-2021 Spinal fixation plate, non-bioabsorbable ()[id number] FDA Start: 02-25-2021 Intervertebral-b josesito internal spinal fixation system ()[id number] FDA Start: 02-25-2021 Intervertebral-b josesito internal spinal fixation system [id number] FDA Start: 02-25-2021 Functional Status Date Assessment Result Facility 06-20-2023 Functional Status N/A [facility] Clinical Notes 07-25-2019 to 01-26-2025 Note Date & Type Note Facility 01-26-2025 Evaluation + Plan note Extrac edwardo from: Title:ED Note Author:Reynaldo Lopez PA-C te:01/26/25 Back pain (M54.9: Dorsalgia, unspecified) Orders: predniSONE, 60 mg = 3 tab(s), Oral, Daily, X 7 day(s), # 21 tab(s), Refills(s) 0, Pharmacy: [facility] #[id number], 113.4, cm, 01/26/25 11:00:00 EDT, Height/Length Dosing, 185.4, kg, 01/26/25 11:00:00 EDT, Weight Dosing XR Spine Lumbosacral 2 or 3 Views Future Appointments Appointment Date:01/31/2025 09:30:00 AM Scheduled Provider: Location:[facility] Physical Tx Appointment Type:PT 45 (FT) Appointment Date:02/01/2025 09:30:00 AM Scheduled Provider: Location:[facility] Physical Tx Appointment Type:PT 45 (FT) Appointment Date:02/03/2025 09:00:00 AM Scheduled Provider: Location:[facility] Physical Tx Appointment Type:PT Re-Eval 45 (FT) [facility] 07-03-2025 Hospital Discharge instructions Patient Education [...] home: Managing pain, stiffness, and swelling Take sthv-sty-vpuzxbr and prescription medicines only as told by [...] each day. 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 Take jrbr-sky-pprqszy and prescription medicines only as told by your health care provider, and apply heat or ice as told. This information is not intended to replace advice given to you by your health care provider. Make sure you discuss any questions you have with your health care provider. Document Revised: 10/04/2021 Document Reviewed: 10/04/2021 [employer] Patient Education 2023 [employer]. Follow Up Care 01/26/2025 10:51:38 With:LUIS ABDALLA Address: [address] [place] [address]- Business (1) When:01/29/2025 11:34:25 [facility] 07-03-2025 NoteED Patient Education Note Orthopedics [...] Managing pain, stiffness, and swelling ??? Take ogij-wbp-qvqsyzd and prescription medicines only as told by [...] day. ??? 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 ??? Y (more content not included)...[facility]11-25-2023 Hospital Discharge instructions Patient Education 06/20/2023 18:04:25 [...] or saurabh your foot. General instructions Take upya-car-bvvpvwd and prescription medicines only as told by [...] provider. Document Revised: 11/02/2020 Document Reviewed: 11/02/2020 [employer] Patient Education 2022 [employer]. 06/20/2023 18:04:25 Elastic Bandage and RICE Therapy [...] limityour activities and whether you should start jpxby-ig-ymdpsj exercises for your injury. Ice Ice your [...] provider. Document Revised: 09/07/2020 Document Reviewed: 04/02/2018 [employer] Patient Education 2020 [employer] 06/20/2023 18:04:25 Ankle Sprain, Phase II [...] by your health care provider. Stretching and rdvtm-bz-ikkmcy exercises These exercises warm up your muscles [...] Document Reviewed: 09/05/2021 Elsevier Patient Education 2022 [employer]. 06/20/2023 18:04:25 Ankle Sprain, Phase I Rehab [...] told by your healthcare provider. Stretching and tabaw-yc-cfmhyj exercises These exercises warm up your muscles [...] provider. Document Revised: 09/05/2021 Document Reviewed: 09/05/2021 [employer] Patient Education 2022 [employer]. 06/20/2023 18:04:25 Ankle Sprain Ankle Sprain An [...] andblue. Managing pain, stiffness, and swelling Take xkxa-mac-fuasuom and prescription medicines only as told by [...] provider. Document Revised: 09/05/2021 Document Reviewed: 09/05/2021 [employer] Patient Education 2022 [employer]. Follow Up Care 06/20/2023 15:55:18 With:LUIS ABDALLA Address: [facility] [place] [phone] Business (1) When:06/23/2023 17:48:00 Comments:Follow-up with your primary care provider in 3 to 5 days. If symptoms worsen, do not improve, or new symptoms arise please report back to emergency department for further evaluation. [facility]11-25-2023 Evaluation + Plan noteExtracted from: Title:ED Note Author:Dilan Adames PA-C te:06/20/23 Left ankle sprain (S93.402A: Sprain of unspecified ligament of left ankle, initial encounter) Sprain of left foot (S93.602A: Unspecified sprain of left foot, initial encounter) Orders: [employer] [facility]11-16-2023 Evaluation note* Encounter Date Diagnosis Assessment [...] CBD obstruction May, Nausea (ICD-10 - R11.0) [employer] Other 08-10-2023 Evaluation note* Encounter Date Diagnosis [...] < 140/90 and HR less than 90 Content Synd[employer]: [employer] Other 02-27-2023 Miscellaneous Notes* Telephone Encounter - 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 RN - 09/22/2022 11:30 AM EST Called and left patient regarding referral to [facility] clinic. Call back number provided. [employer] message with the details also sent. 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 RN September 22, 2022 11:32 AM documented in [facility] Evaluation note* Encounter Date Diagnosis Assessment [...] recipient (ICD-10 - Z94.4) No s/s rejection [employer]: [employer] Other 02-09-2023 Miscellaneous Notes* Telephone Encounter - Betina Barr MD - 09/04/2022 2:03 PM EST Stent change with bruna documented in this encounterW[facility]10-[facility] Miscellaneous Notes* Telephone Encounter - Nadja [...] prescription(s) to electronically send to pharmacy. Nadja Spnecer RN * Telephone Encounter - Lorena Adames [...] Thank you, Lorena Adames RPh [facility] [phone] documented in this encounterWad[facility]08-29-2022 Miscellaneous Notes* Telephone Encounter - Nadja Spencer RN - 03/24/2022 1:17 PM EDT I sent patient a reminder to have lab work drawn as soon as possible as he has not had labs drawn in some time. Encouraged him to reach out with questions. Nadja Spencer RN (Cassie), BSN Liver Embossing Calender Operator documented in this encounterWadsworth-[facility]08-16-2022 Miscellaneous Notes* Telephone Encounter - Nadja [...] to. Nadja Spencer RN (Cassie), BSN Liver Embossing Calender Operator documented in this encounterWadsworth-[facility]ittman [facility]08-02-2022 NoteHNO ID: [id number] Author: SHAQ Chua Service: ? Author Type: Multiple Spindle Router Operator Type: Progress Notes Filed: 02/25/2022 10:46 AM Note Text: [facility] Assessment Visit Type:Virtual Visit utilizing two-way audio and video for at least a portion of the visit IDENTIFYING INFORMATION: [phone] [email or web address] Lives with of nine years, Екатерина and [...] consented to virtual evaluation. 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 PRECIPITATING PROBLEM(S):Patient was dx with liver disease in 2017. Completed an IOP at [facility] in summer 2018, and received liver [...] Age 16, every other weekend. Went to [employer] for college drank heavily on weekends, [...] from its effects? Yes (more content not included)...[id number] History of Present illness Narrative* SHAQ Chua - 02/25/2022 9:21 AM EDT [facility] Assessment Visit Type:Virtual Visit utilizing two-way audio and video for at least a portion of the visit IDENTIFYING INFORMATION: [phone] [email or web address] Lives with of nine years, Екатерина andone daughter age five Duration of Interview: start time 9:15 and end time 10:30 pm REFERRAL SOURCE: SHAQ Jaimes liver transplant team BENEFITS: Payor: MEDICARE / Plan: MEDICARE A AND B / Product Type: Medicare / INFORMED CONSENT: Patient completed evaluation via virtual MyChart encounter due to COVID-19. Patient verbally consented to virtual evaluation. 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 PRECIPITATING PROBLEM(S):Patient was dx with liver disease in 2017. Completed an IOP at [facility] in summer 2018, and received liver [...] Age 16, every other weekend. Went to [employer] for college drank heavily on weekends, [...] none PRIOR CHEMICAL DEPENDENCY TREATMENTS: Yes: Bria ABDI in 2019 TWELVE STEP HISTORY: -Longest period [...] None FAMILY/DEVELOPMENTAL HISTORY: -Born/Raised in (City, State): [place], [place]. Grew up on a farm Biological [...] Completed: Completed college: BA business administration from [employer] 2009 -Learning problems or special educational programs?: No EMPLOYMENT HISTORY: -Currently employed? 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 No - Are you in need of assistance to identify and explore career interests, aptitudes, and skills andto formulate immediate and long wall shear operator vocational goals? No MARITAL HISTORY: Екатерина -Children: [...] camping, campfires SPIRITUAL ASSESSMENT: -Raised in this Taoism Background: Nondenominational Current Spiritual/Taoism Practices: yes -Belief in a Higher Power: [...] things - anyone or anything (e.g., family, worship, pain of ) - that stopped you [...] suicide or other suicidal behavior. From The [employer] Practice Guidelines for the Assessment [...] meaningful daily activities: Yes Currently Employed: Yes Taoism affiliation (See spiritual assessment section above) Therapeutic [place]: Does pt believe treatment can help his/her [...] the date of the service which included ltil-gu-ozij patient care and completing clinical documentation. documented in this encounterWadsworth-[facility]07-28-[facility] History of Present illness Narrative* SHAQ [...] states he went through IOP at [facility] and did not have a good experience. SW recommended Jaqu[facility] to patient and he is agreeable to trying this program. SW provided contact info and also emailed Jaquelin with this referral. Patient states he will also continue to go to his weekly home groupAA session every Thur at 8pm in [facility]. SW encouraged clt to reach out with any further questions or concerns. SHAQ Jaimes-S Liver Transplant Social Work documented in this encounterWadsworth-Rittman [facility]07-28-2022 History of Present illness Narrative* SHAQ Jaimes - 02/20/2022 10:05 AM EDT Patient scheduled for virtual follow up visit with DEONDRE today at 1pm. Patient left 2 messages via Oncovisiont cancelling appointment due to time conflict. SHAQ Jaimes-S Liver Transplant Social Work documented in this encounterWadsworth-Rittman [facility]06-03-2022 History of Present illness Narrative* RT [...] 2021 TIME: 12:54 PM documented in this encounterWadsworth-Rittman [facility]05-23-2022 History of Present illness Narrative* Aidan [...] IS. I spent more than 20 minutes [id number] with the patient and over half the time was devoted to counseling and/or coordination of care. Aidan Larios MD documented in this encounterWadsworth-Rittman [facility]04-15-2022 Miscellaneous Notes* Telephone Encounter - Nadja Spencer RN - 11/08/2021 3:18 PM EDT Patient returned my text and said that he will be unavailable on 11/12, as he and his family just arrived at [facility]. He will be available for virtual visit on 11/19. I notified scheduling. Nadja Spencer (Cassie) RN, BSN Liver Embossing Calender Operator * Telephone Encounter - Nadja Spencer RN - 11/08/2021 2:23 PM EDT I called and LMOM and sent patient a text to follow up with him from [facility]. I let him know that I'd be setting him up for a follow up virtual visit with Dr. Larios. Encouraged him to call back with questions or as needed. 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 Resolved. Last amylase was 59 Per recommendation of GI we initially plan to transfer to [facility] for ERCP but that was [...] Vision MRI was negative Will discuss with health and wellness coordinator We will also consult ID ? Need to look for CMV retinitis Saba Hills MD ?[facility] [id number] NoteHNO ID: [id number] Author: Maninder Aguilera DO Service: Hospital Medicine Author Type: Physician Type: Progress Notes Filed: 07/11/2021 10:58 AM Note Text: DEPARTMENT OF HOSPITAL MEDICINE PROGRESS NOTE SERVICE DATE: 07/11/2021 SERVICE TIME: 10:15 AM Hospital Medicine/Primary Attending: Maninder Aguilera DO NIGHT AND WEEKEND COVERAGE: [place] COVERAGE: Days: [phone], please contact via [employer] SecureVivoxidsage Nights: [phone], please page CC Hospitalist Night coverage pager [phone] Subjective INTERVAL HPI: pt seen at bedside. [...] VTE Prophylaxis/Anticoagulants 07/09/21 1245 pneumatic compression stockings (dc,oh) VTE Prophylaxis: VTE prophylaxis appropriate Disposition: Home Plan of care discussed with Provider, RN, Patient SIGNATURE: Maninder Aguilera DO PATIENT NAME: Chuckie Villalta DATE: July 11, 2021 TIME: 10:15 AMPrimary [facility]'S [id number] NoteHNO ID: [id number] Author: Saba Hills MD Service: Hospital Medicine Author Type: Physician Type: Progress Notes Filed: 07/11/2021 5:13 AM Note Text: HOSPITAL MEDICINE PROGRESS NOTE Saba Hills MD NIGHT AND WEEKEND COVERAGE: ERICK COVERAGE: : [phone], please contact via Sequ[employer] Pharmaceuticalssage Nights: [phone], please page CC Hospitalist Night coverage pager [phone] Subjective HPI: Interval Events: has pain abdomen [...] sounds + EXTREMITY: : No ankle edema. FACILITIES MAINTENANCE SUPERVISOR: grossly normal. No focal deficit. Lines, Drains, [...] and GI GI is planning ERCP at [facility] as outpatient 2. History of [...] VTE Prophylaxis/Anticoagulants 07/09/21 1245 pneumatic compression stockings (dc,oh) VTE Prophylaxis: VTE prophylaxis appropriate. Advised to ambulate as tolerated. Plan of care discussed with: Patient, Family/Significant Other: at bedside, RN and Consultants: Neurology, Nephro, GI Saba Hills MD 07/10/2021 11:00 AM Please use Secure messaging to contact me between 7:30 AM and 4:30 PM Chuckie Villalta [id number] NoteHNO ID: [id number] Author: Jolynn Jaquez MD Service: Hospital Medicine Author Type: Physician Type: Progress Notes Filed: 07/09/2021 6:55 PM Note Text: HOSPITAL MEDICINE PROGRESS NOTE NIGHT AND WEEKEND COVERAGE: ERICK COVERAGE: Days: [phone], please contact via Limitlesslane Nights: [phone], please page CC Hospitalist Night coverage pager [phone] Hospital Medicine/Primary Attending: Jolynn Jaquez MD Subjective [...] sounds + EXTREMITY: : No ankle edema. FACILITIES MAINTENANCE SUPERVISOR: grossly normal. No focal deficit. Lines, Drains, [...] leucocytosis initially, was started on antibiotics. Dwayne cipro flagyl. GI consulted. Leucocytosis resolved (also, improving thrombocytopenia ). LFTs improved. Afebrile. No growth on blood cultures so far. USG right upper quadrant done to r/o obstruction. Advance diet today to full liquid, advance tomorrow as tolerated. Appreciate Pain management input. Discussed with GI regarding scheduling of ERCP outpatient. Patient to be scheduled at [facility]. Consider starting heparin subq for prophylaxis tomorrow [...] showed no acute process. Discussed with Neuro contact center professional. Plan to follow up outpatient with Neuro, and consider outpatient MRI brain with contrast if needed. ? Medication and Non-Pharmacologic VTE Prophylaxis/Anticoagulants 07/09/21 1245 pneumatic compression stockings (dc,oh) VTE Prophylaxis: VTE prophylaxis appropriate. Advised to ambulate as tolerated. Plan of care discussed with: Patient, Family/Significant Other: at bedside, RN and Consultants: Neurology, Nephro, GI SIGNATURE: Jolynn Jaquez MD PATIENT NAME: Chuckie Villalta DATE: July 09, 2021 TIME: 4:16 [facility] [id number] NoteHNO ID: [id number] Author: Tani Woodward MD, PhD Service: Neurology [...] PhD July 09, 2021 3:20 [facility] SystemEaymdbvy78-02-0561 NoteHNO ID: [id number] Author: Isa San RDMS, RVT Service: Radiology Author Type: Plug And Mold Finisher Type: Progress Notes Filed: 07/08/2021 12:04 PM [...] San RDMS, ARLENE July 08, 2021 12:03 [facility] [id number] NoteHNO ID: [id number] Author: Jolynn Jaquez MD Service: Hospital Medicine Author Type: Physician Type: Progress Notes Filed: 07/08/2021 11:56 AM Note Text: HOSPITAL MEDICINE PROGRESS NOTE NIGHT AND WEEKEND COVERAGE: ERICK COVERAGE: Days: [phone], please contact via [employer]Vivox[employer]age Nights: [phone], please page CC Hospitalist Night coverage pager [phone] Hospital Medicine/Primary Attending: Jolynn Jaquez MD Subjective [...] tenderness in EXTREMITY: : No ankle edema. FACILITIES MAINTENANCE SUPERVISOR: grossly normal. No focal deficit. Cranial nerves intact. Lines, Drains, and Airways Line Peripheral 07/05/211 Right Antecubital 20 Gauge 2 days Peripheral [...] is still waiting to be transferred to [facility]). Pain management consult. YAON on CKD In setting of acute sickness, [...] Villalta DATE: July 08, 2021 TIME: 11:30 [facility] HospitalRretqdja05-93-1710 NoteHNO ID: [id number] Author: Jolynn Jaquez MD Service: Hospital Medicine Author Type: Physician Type: Progress Notes Filed: 07/07/2021 3:10 PM Note Text: HOSPITAL MEDICINE PROGRESS NOTE NIGHT AND WEEKEND COVERAGE: ERICK COVERAGE: Days: [phone], please contact via [employer] Nights: [phone], please page CC Hospitalist Night coverage pager [phone] Hospital Medicine/Primary Attending: Jolynn Jaquez MD Subjective HPI: Interval Events: COMMUNICATION STUDIES PROFESSOR and prn dilaudid helping with pain abdomen. [...] minimal palpation EXTREMITY: : No ankle edema FACILITIES MAINTENANCE SUPERVISOR: grossly normal. No focal deficit. Lines, Drains, and Airways Line Peripheral 07/05/21 1811 Right Antecubital 20 Gauge 1 day Peripheral 07/05/21 1923 Short Left Antecubital 20 Gauge 1 day Reviewed lines and needs to be continued: REASONS: Intravenous fluids Medications: Reviewed Diagnostic tests reviewed: Most recent imaging Most recent labs Assessment AND Plan Active Hospital Problems as of 07/07/2021 Noted - Resolved [facility] * (Principal) Acute pancreatitis 07/05/2021 - [...] input Patient waiting to be transferred to [facility]. Likely needs ERCP. Pain control with fentanyl COMMUNICATION STUDIES PROFESSOR, dilaudid prn Close monitoring ? Hemochromatosis 03/18/2018 [...] to get update regarding bed availability at [facility]. No bed assigned at [facility] yet. SIGNATURE: Jolynn Jaquez MD PATIENT NAME: Chuckie Villalta DATE: July 07, 2021 TIME: 2:59 [facility] [id number] NoteHNO ID: [id number] Author: Roma Horan MD Service: Hospital Medicine Author Type: Physician Type: Progress Notes Filed: 07/06/2021 12:47 PM Note Text: DEPARTMENT OF HOSPITAL MEDICINE PROGRESS NOTE SERVICE DATE: 07/06/2021 SERVICE TIME: 12:43 PM Hospital Medicine/Primary Attending: Roma Horan MD NIGHT AND WEEKEND COVERAGE: ERICK COVERAGE: Days: [phone], please contact via [employer] Nights: [phone], please page CC Hospitalist Night coverage pager [phone] Subjective INTERVAL HPI: c/o 8/10 abdominal pain. [...] INTRAVENOUS q 6 H PRN - fentaNYL COMMUNICATION STUDIES PROFESSOR 20 mcg/mL in NaCl 0.9% 100 mL [...] a noncontrast examination - Patient accepted to [facility] when bed available - IV fluids, NPO except meds - symptom management - johana Rice flagyl started in ED--c/w same for now. Leukocytosis resolved today -improving lipase - Consult GI, pending [facility] transfer, appreciate recs. May need [...] recipient (HCC) Assessment AND Plan: seen at [facility], admits some noncompliance with medications as of late, and rare alcohol use - transfer to [facility] for continued care when able - continue prograf. Will hold Actigall while NPO ? Primary hypertension Assessment AND Plan: elevated in ED, likely due to pain and missed doses - resume po antihypertensives as able - manage pain as able Medication and Non-Pharmacologic VTE Prophylaxis/Anticoagulants VTE Prophylaxis: VTE prophylaxis appr (more content not included)...[facility] HospitalTczksrgx86-22-0673 NoteHNO ID: [id number] Author: Interface Note Service: ? Author Type: ? Type: Progress Notes Filed: 07/06/2021 2:53 AM Note Text: Epic Scheduled Downtime: 07/06/2021 1:00:00 AM to 07/06/2021 2:38:59 [facility] HospitalXcbsbocp81-05-4939 NoteHNO ID: [id number] Author: Lisseth Raymond APRN.LINE BUILDER Service: Hospital Medicine Author Type: Nurse Practitioner Type: Plan of Care Filed: 07/05/2021 11:59 PM Note Text: Patient's pain not being controlled with prn dilaudid. Per Up to Date, COMMUNICATION STUDIES PROFESSOR recommended and fentanyl the safest drug to use for this purpose I discussed case with Dr Shook, I also discussed with the NOM and the pharmacist. A COMMUNICATION STUDIES PROFESSOR pump ordered. Lisseth Raymond APRN.[facility] ClinicChsundeg68-09-8844 NoteHNO ID: [id number] Author: RT Alok(R) Service: ? Author Type: [...] Alok(R) July 05, 2021 11:38 [facility] [id number] NoteHNO ID: [id number] Author: FLORENTINO Fairchild) Service: Radiology Author Type: [...] BY: RT Devorah(R) July 05, 2021 7:00 [facility] SystemXabwablg46-18-6111 History of Past illness Narrative* Problem Noted [...] of this encounter (statuses as of 11/08/2021) [facility] of Past illness Narrative* Problem [...] of this encounter (statuses as of 12/16/2021) [facility] of [facility] illness Narrative* Problem [...] of this encounter (statuses as of 12/28/2021) [facility] of [facility] illness Narrative* Problem [...] of this encounter (statuses as of 12/28/2021) [facility] illness Narrative* Problem [...] of this encounter (statuses as of 02/20/2022) [facility] of [facility] illness Narrative* Problem [...] of this encounter (statuses as of 02/25/2022) [facility] illness Narrative* Problem [...] of this encounter (statuses as of 03/11/2022) [facility] illness Narrative* Problem [...] of this encounter (statuses as of 03/24/2022) [facility] of [facility] illness Narrative* Problem [...] of this encounter (statuses as of 05/05/2022) [facility] of [facility] illness Narrative* Problem [...] of this encounter (statuses as of 07/28/2022) [facility] illness Narrative* Problem [...] of this encounter (statuses as of 09/04/2022) [facility] of [facility] illness Narrative* Problem [...] of this encounter (statuses as of 09/04/2022) [facility] of [facility] illness Narrative* Problem [...] of this encounter (statuses as of 09/22/2022) [facility] note* Diagnosis Liver replaced by transplant (HCC)- Primary Liver replaced by transplant documented in this encounter [facility] note* Diagnosis Liver replaced by transplant (HCC)- Primary Liver replaced by transplant Need for prophylactic immunotherapy documented in this encounter [facility] note* Diagnosis Uncomplicated alcohol dependence (HCC) Other and unspecified alcohol dependence, unspecified drinking behavior documented in this encounter [facility] note* Diagnosis Liver transplant recipient (HCC)- Primary documented in this encounter [facility] note* Diagnosis 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 documented in this encounter [facility] noteNo assessment information availableAultman Alliance Community Hospital Work Phone: Evaluation note* Diagnosis Onset Date Resolution Status Admit Date Hypertension acute August 2:02pm Liver transplant rejection acute September 02, 2024 2:02pm Mid back pain on left side acute September 02, 2024 2:02pm Wellness examination acute Febr 2024 2:02pm [facility] Work Phone: Evaluation note* Diagnosis Onset Date Resolution Status Admit Date Cervical spondylosis acute February 17, 2025 10:04am Hypertension acute February 17, 2 10:04am Liver transplant rejection acute February 17, 2025 10:04am Lumbar spondylosis acute January 252024 10:04am Post-traumatic arthritis of left foot acute February 17, 2025 10:04am [facility] Work Phone: Hiskvpu general Narrative - Reported* Type Description Date [...] History COLONOSCOPY 2019 Hospitalization History See Above Content Syndicate: [employer] Other Hiswjur general Narrative - Reported* Type Description Date [...] stent replaced 11/2022 Hospitalization History See Above Content Syndicate: [employer] Other History general Narrative - Reported* Type [...] History ERCP 02/2023 Hospitalization History See Above Content Syndicate: [employer] Other Hospital course Narrative No data available for this section [facility] No data available for this section [facility]Re[facility] (narrative)* Outpatient Procedure (Routine) - Pending Review Specialty Diagnoses / Procedures Referred By Vale lopez Referred To Contact [facility] Diagnoses Biliary stricture Procedures ERCP ERCP DX COLLECTION SPECIMEN BRUSHING/WASHING Betina Barr MD [address] [place] [address] [facility] [address] [place] [id number] Referral ID Status Reason Start Date Expiration Date Visits Requested Visits Authorized [id number] Pending Review Auto-Generat ed Referral 12/02/2022 09/04/2023 1 1 [facility] (narrative)No reason for referral information availableAultman Alliance Community Hospital Work Phone: Summary Purpose Family History No Family History Records Found Relationship Condition Age at Onset Recorded Date/T sowmya father Malignant neoplasm of colon Unknown Hypertension Unknown mother Hypertension Unknown Myocardial infarction Unknown brother Epilepsy Unknown Advance Directives No Advanced Directives Records FoundDocuments on File Type Date Recorded Patient Take Away Worker Expl anation Advance Directive(s) 10/30/2021 12:47 PM Advance Directive(s) 07/05/2021 6:47 PM Advance Directive(s) 07/16/2020 12:03 PM Advance Directive(s) 05/02/2020 10:37 AM Advance Directive(s) 07/10/2019 5:35 PM Advance Directive(s) 01/21/2019 3:11 PM Advance Directive(s) 10/06/2018 10:21 AM Advance Directive(s) 07/13/2018 6:11 AM Documents on File Type Date Recorded Patient Take Away Worker Expl anation Advance Directive(s) 10/30/2021 12:47 PM Advance Directive(s) 07/05/2021 6:47 PM Advance Directive(s) 07/16/2020 12:03 PM Advance Directive(s) 05/02/2020 10:37 AM Advance Directive(s) 07/10/2019 5:35 PM Advance Directive(s) 01/21/2019 3:11 PM Advance Directive(s) 10/06/2018 10:21 AM Advance Directive(s) 07/13/2018 6:11 AM Documents on File Type Date Recorded Patient Take Away Worker Expl anation Advance Directive(s) 10/06/2018 10:21 AM Latest Code Status on File Code Status Date Activated Date Inactivated Comments Full Code 09/01/2022 12:05 AM Full Code Order Discussed With: Patient Documents on File Type Date Recorded Patient Take Away Worker Expl anation Advance Directive(s) 10/06/2018 10:21 AM [...] IVCON CT ABDOMEN W/CONTRAST Aidan Larios MD [address] [place] [address] Ct [facility] Referral ID Status Reason Start Date Expiration Date Visits Requested Visits Authorized [id number] Pending Review Auto-Generat ed Referral 12/24/2021 01/09/2023 1 1 Referral ID Status Reason Start Date Expiration Date V isits Requested Visits Authorized [id number] Closed Auto-Generated Referral Patient Cleared - INN [...] and content) DATE CREATED AUTHOR 12/20/2020 [facility] DATE CREATED AUTHOR AUTHOR'S ORGANIZ ATION 07/13/2021 [facility] DATE CREATED AUTHOR AUTHOR'S ORGANIZ ATION 08/18/2021 [facility] DATE CREATED AUTHOR AUTHOR'S ORGANIZ ATION 11/09/2022 [facility] DATE CREATED AUTHOR AUTHOR'S ORGANIZ ATION 12/04/2024 [facility] DATE CREATED AUTHOR AUTHOR'S ORGANIZ ATION 03/11/2025 [facility] DATE CREATED AUTHOR AUTHOR'S ORGANIZ ATION 04/13/2025 [facility] Source Comments (unrecognize d section and content) In the event this informatio n is protected by the Federal Confidentiality of Alcohol and Drug Abuse Patient Records regulations: The Federal rules restrict any use of the information to criminally investigate or prosecute any alcohol or drug abuse patient.[facility] HospitalIn the event this information is protected by the Federal Confidentiality of Alcohol and Drug Abuse Patient Records regulations: The Federal rules restrict any use of the information to criminally investigate or prosecute any alcohol or drug abuse patient.[facility] HospitalIn the event this information is protected by the Federal Confidentiality of Alcohol and Drug Abuse Patient Records regulations: The Federal rules restrict any use of the information to criminally investigate or prosecute any alcohol or drug abuse patient.[facility] HospitalIn the event this information is protected by the Federal Confidentiality of Alcohol and Drug Abuse Patient Records regulations: The Federal rules restrict any use of the information to criminally investigate or prosecute any alcohol or drug abuse patient.[facility] HospitalIn the event this information is protected by the Federal Confidentiality of Alcohol and Drug Abuse Patient Records regulations: The Federal rules restrict any use of the information to criminally investigate or prosecute any alcohol or drug abuse patient.[facility] HospitalIn the event this information is protected by the Federal Confidentiality of Alcohol and Drug Abuse Patient Records regulations: The Federal rules restrict any use of the information to criminally investigate or prosecute any alcohol or drug abuse patient.[facility] HospitalIn the event this information is protected by the Federal Confidentiality of Alcohol and Drug Abuse Patient Records regulations: The Federal rules restrict any use of the information to criminally investigate or prosecute any alcohol or drug abuse patient.[facility] HospitalIn the event this information is protected by the Federal Confidentiality of Alcohol and Drug Abuse Patient Records regulations: The Federal rules restrict any use of the information to criminally investigate or prosecute any alcohol or drug abuse patient.[facility] HospitalIn the event this information is protected by the Federal Confidentiality of Alcohol and Drug Abuse Patient Records regulations: The Federal rules restrict any use of the information to criminally investigate or prosecute any alcohol or drug abuse patient.[facility] HospitalIn the event this information is protected by the Federal Confidentiality of Alcohol and Drug Abuse Patient Records regulations: The Federal rules restrict any use of the information to criminally investigate or prosecute any alcohol or drug abuse patient.[facility] HospitalIn the event this information is protected by the Federal Confidentiality of Alcohol and Drug Abuse Patient Records regulations: The Federal rules restrict any use of the information to criminally investigate or prosecute any alcohol or drug abuse patient.[facility] HospitalIn the event this information is protected by the Federal Confidentiality of Alcohol and Drug Abuse Patient Records regulations: The Federal rules restrict any use of the information to criminally investigate or prosecute any alcohol or drug abuse patient.[facility] HospitalIn the event this information is protected by the Federal Confidentiality of Alcohol and Drug Abuse Patient Records regulations: The Federal rules restrict any use of the information to criminally investigate or prosecute any alcohol or drug abuse patient.[facility] HospitalIn the event this information is protected by the Federal Confidentiality of Alcohol and Drug Abuse Patient Records regulations: The Federal rules restrict any use of the information to criminally investigate or prosecute any alcohol or drug abuse patient.[facility] Reason for Visit (unrecogniz ed section and content) Reason Comments Radiology CT Specialty Diagnoses / Procedures Referred By Contac t Referred To Contact CT IMAGING Diagnoses Alcohol-induced acute pancreatitis, unspecified complication status Procedures CT ABDOMEN W IVCON CT ABDOMEN W/CONTRAST Aidan Larios MD [address] [place] [address] Ct Imaging Referral ID Status Reason Start Date Expiration Date V isits Requested Visits Authorized [id number] Closed Auto-Generated Referral Patient Cleared - INN [...] September 02, 2024 End: September 02, 2024 Electrical Controls Engineer Relationship Specialty Start Date End Date Luis Abdalla, DO [address] [place] [address] PCP - General Internal Medicine 01/12/18 Angie Fernandes Jr. [address] [address] Referring Gastroenterology 01/12/18 Nadja Spencer RN [facility] [address] [place] [address] Transplant Center 08/31/19 Electrical Controls Engineer Relationship Specialty Start Date End Date Luis Abdalla, DO [address] [place] [address] PCP - General Internal Medicine 01/12/18 Angie Fernandes Jr. [address] [address] Referring Gastroenterology 01/12/18 Nadja Spencer RN [facility] [address] [place] [address] Transplant Center 08/31/19 Electrical Controls Engineer Relationship Specialty Start Date End Date Luis Abdalla, DO [address] [place] [address] PCP - General Internal Medicine 01/12/18 Angie Fernandes Jr. [address] [address] Referring Gastroenterology 01/12/18 Nadja Spencer RN [facility] [address] [place] [address] Transplant Center 08/31/19 Electrical Controls Engineer Relationship Specialty Start Date End Date Luis Abdalla, DO [address] [place] [address] PCP - General Internal Medicine 01/12/18 Angie Fernandes Jr. [address] [address] Referring Gastroenterology 01/12/18 Nadja Spencer RN [address] [address] Transplant Center 08/31/19 Electrical Controls Engineer Relationship Specialty Start Date End Date Luis Abdalla, DO [address] [place] [address] PCP - General Internal Medicine 01/12/18 Angie Fernandes Jr. [address] [address] Referring Gastroenterology 01/12/18 Nadja Spencer RN [facility] [address] [place] [address] Transplant Center 08/31/19 Electrical Controls Engineer Relationship Specialty Start Date End Date Luis Abdalla, DO [address] [place] [address] PCP - General Internal Medicine 01/12/18 Angie Fernandes Jr. [address] [address] Referring Gastroenterology 01/12/18 Nadja Spencer RN [facility] [address] [place] [address] Transplant Center 08/31/19 Electrical Controls Engineer Relationship Specialty Start Date End Date Luis Abdalla, DO [address] [place] [address] PCP - General Internal Medicine 01/12/18 Angie Fernandes Jr., DO [address] [address] Referring Gastroenterology 01/12/18 Nadja Spencer RN [facility] [address] [place] [address] Transplant Center 08/31/19 Electrical Controls Engineer Relationship Specialty Start Date End Date Luis Abdalla, DO [address] [place] [address] PCP - General Internal Medicine 01/12/18 Angie Fernandes Jr., DO [address] [address] Referring Gastroenterology 01/12/18 Nadja Spencer RN [facility] [address] [place] [address] Transplant Center 08/31/19 Electrical Controls Engineer Relationship Specialty Start Date End Date Luis Abdalla, DO [address] [place] [address] PCP - General Internal Medicine 01/12/18 Angie Fernandes Jr., DO [address] [address] Referring Gastroenterology 01/12/18 Nadja Spencer RN [facility] [address] [place] [address] Transplant Center 08/31/19 Electrical Controls Engineer Relationship Specialty Start Date End Date Luis Abdalla, DO [address] [place] [place] [address] PCP - General Internal Medicine 01/12/18 Angie Fernandes Jr., DO [address] [facility] [address] [place] [address] Referring Gastroenterology 01/12/18 Nadja Spencer, [place] [facility] [address] [place] [address] Transplant Center 08/31/19 Team Status: Inactive Member [...] BE BASED ON THE PRIMARY CLINICAL RECORDS. [employer] provides no warranty or guarantee of the accuracy or completeness of information in this document.
[2025-05-01 12:27] VITALS: BP 150/93; PULSE 87; TEMP 36.8; O2SAT 99
[2025-05-01 13:27] VITALS: BP 141/72; PULSE 82; PULSE 83; O2SAT 98; O2SAT 99
[2025-05-01 13:28] VITALS: BP 139/82
[2025-05-01] MEDS: METHYLPREDNISOLONE ACETATE 40 MG/ML VIAL INJ (13:29)
[2025-05-01] MEDS: BUPIVACAINE HCL 0.25% PF 25 MG/10 ML VIAL 2 ML INJ (13:29)
--- NOTE | 2025-05-01 13:30 | W.PM.PROCNOT ---
Date of procedure: 05/01/25 Pre-op diagnosis: Left foot pain Post-op diagnosis: same as pre-op Procedure: Procedure: Left first tarsometatarsal injection Medications: Bupivacaine 0.25% 1cc, depomedrol 40mg I explained the details of the procedure to the patient including the risks, benefits and alternatives. We had an informed discussion and the patient verbalized understanding and signed the consent form. All questions were answered appropriately.? A time out was performed.? After obtaining a comfortable supine position, the skin overlying the left foot was prepped with alcohol. A sterile syringe containing the above medication was attached to a 25 guage, 3.5 inch spinal needle under strict aseptic technique. X ray was used to identify the joint space. The needle was than advanced through the subcutaneous tissue after local injection of 1% lidocaine.? The contents of the syringe were gently injected without any resistance into the joint space after contrast (isovue) outlined the appropriate area. The needle was removed and pressure was applied to the injection site to decrease the incidence of ecchymosis and hematoma formation.? A sterile bandage was applied. Post procedural instructions were given to the patient. Anesthesia: Local Surgeon: Vicente Thompson Pathology: none sent Condition: stable Disposition: no change
== END 2025-05-01 13:33 | disposition home or self-care (01) ==
PROVIDERS: PCP Internal Medicine; Visit Provider Anesthesiology
DX: M79.672 Pain in left foot (principal)
CPT/HCPCS: 20605; 77002; J0665; J1010

== ENCOUNTER 2025-05-11 10:14 | Outpatient (OUT) | payer MEDICARE, MEDICAID, SELFPAY ==
--- OUTSIDE RECORDS SUMMARY | 2025-05-11 10:17 | XMS_ITS | Clinical Summary ---
Author Organization [facility] Address [address] [place] [address] Phone Care Team Providers Care Vice President Of Marketing Name Role Phone Unavailable Primary Care Provider [...]
--- OUTSIDE RECORDS SUMMARY | 2025-05-11 10:17 | XMS_ITS | Encounter Summary ---
Author Organization [facility] Address [address] [place] [address] Phone Care Team Providers Care Deputy Sheriff Generalist/Bailiff Name Role Phone Unavailable Primary Care Provider Unavailabl e Encounter Details Date Type Department Care Team (Late st Contact Info) Description 02/04/2018 Orders Only [facility] [address] [place] [address] Conversion, Onbase Social History Tobacco Use Types [...]
--- OUTSIDE RECORDS SUMMARY | 2025-05-11 10:17 | XMS_ITS | Clinical Summary ---
Author Organization [facility] Address [address] [facility], [address] [place] [address] Care Team Providers Care Scullion Chief Name Role Phone Kehinde Guadarrama MD Primary [...] of Treatment Not on file Care Teams Scullion Chief Relationship Specialty Start Date End Date Kehinde Guadarrama MD PCP - General Family Medicine 04/22/16
--- OUTSIDE RECORDS SUMMARY | 2025-05-11 10:19 | XMS_ITS | CCD ---
Author Organization [facility]iniSyca Care Team Providers Care Blocker And Sewer Name Role Phone DR LUIS ABDALLA Attending Unavailable BALL, DR VAZQUEZ Consulting Unavailable BALL, DR VAZQUEZ Primary Care Unavailable BALL, DR VAZQUEZ Admitting Unavailable WEST, DR ANGIE [...] Attending Unavailable LUIS ABDALLA Primary Care Physician [phone] Luis Abdalla DO Primary Care Provider [phone] Luis Abdalla DO Attending Provider NICKOLAS MCCALLUM Referring Unavailable LUIS ABDALLA Primary Care Unavailable LUIS ABDALLA Referring Unavailable LUIS ABDALLA Attending Unavailable Ralf Carbajal Attending Unavailable Giedraitis , Vicente Saavedra Attending Unavailable Gieditis , Vicente Saavedra Attending Unavailable Gieditis , Vicente Saavedra Attending Unavailable Gieditis , Vicente Saavedra Attending Unavailable Allergies Allergy Classification Reported Allergen(s) Allergy Type Date of Onset Reaction(s) Facility Penicillins (antibiotic) (1 source) Penicillin Drug Allergy [facility] Repository (20 sources) Midazolam; Translations: [MIDAZOLAM] Drug Allergy 1 Other: See Comments [facility] (9 sources) Penicillins; Translations: [PENICILLINS] Drug Allergy 4 Unknown, Swelling [facility] Work Phone: Comment on above: had skin test done b efore transplant (16 sources) Seasonal allergy; Translations: [SEASONAL ALLERGIES] Propensity to adverse reactions 8 Unknown [facility] (10 sources) Penicillins Drug Allergy Unknown [facility] Work Phone: (6 sources) penicillAMINE Drug Allergy 4 Unknown, Unknown Reaction [facility] (3 sources) Penicillin; Translations: [penicillin] Drug Allergy Urticaria (disorder) [facility] (1 source) Midazolam; Translations: [Versed] Drug Allergy [facility] Repository Medications Current Medications Medication Drug Class(es) [...] Active 25 MG PO Twice daily 180 November 08, 2024 7:48am Complies with drug [...] day(s), # 21 tab(s), Refills(s) 0, Pharmacy: [id number], 113.4, cm, 01/26/25 11:00:00 EDT, Height/Length Dosing, [...] oral capsule (5 sources) Anti-epileptic Agent Start: 4 End: 5 take 1 capsule by mouth three times daily Gabapentin 100 mg capsule Discontinued 0 .ROUTE .COMPLEX March 07, 2024 6:54am February 16, 2025 7:24am TAKE 1 CAPSULE BY MOUTH THREE TIMES DAILY FOR 10 DAYS Start: 02-29-2024 End: 03-07-2024 take 1 capsule by mouth three times daily Gabapentin 100 mg capsule Discontinued 100 MG PO Three times daily 25 05February 29, 2024 12:00am March 07, 2024 6:54am [...] 1 tablet by sylvester th twice daily. oxyCODONE hydrochloride 5 mg oral capsule (3 sources) Opioid Agonist Start: End: take 5-10 mg by mouth every six hours as needed for pain Oxycodone 5 mg capsule Discontinued 5 - 10 MG PO Q6H as needed for pain 40 8 February 26, 2021 February 16, 2025 7:24am sulfamethoxazole 800 mg / trimethoprim 160 mg oral tablet (18 sources) Dihydrofolate Reductase Inhibitor Antibacterial, Sulfonamide Antimicrobial Start: 022 take 1 tablet by mouth once sulfamethoxazole-tr [...] bedtime as needed for muscle spasticity 7 7 September 02, 2024 1:00am September 06, [...] Basophils (Bld) [#/Vol] 0.03 10*3/uL Normal <0.11 [facility] Comment on above: Order Comment: Speci mercy Type: BLOOD SPECIMEN Ordering Facility: [facility] Address: [address] [place] [address] Performed By: #### 5 7021-8 #### [facility] CLIA [id number] [address] [place] [address] [place] Basophils/100 WBC (Bld) 0.3 % Normal [facility] Comment on above: Order Comment: Noe madrid Type: BLOOD SPECIMEN Ordering Facility: [facility] Address: [address] [place] [address] Performed By: #### 5 7021-8 #### [facility] CLIA [id number] [address] [place] [address] [place] Differential cell count method Nom (Bld) Auto Normal [facility] Comment on above: Order Comment: Noe madrid Type: BLOOD SPECIMEN Ordering Facility: [facility] Address: [address] [place] [address] Performed By: #### 5 7021-8 #### [facility] CLIA [id number] [address] [place] [address] [place] Eosinophils (Bld) [#/Vol] 0.18 10*3/uL Normal <0.46 [facility] Comment on above: Order Comment: Speci men Type: BLOOD SPECIMEN Ordering Facility: [facility] Address: [address] [place] [address] Performed By: #### 5 7021-8 #### [facility] CLIA [id number] [address] [place] [address] [place] Eosinophils/100 WBC (Bld) 2.0 % Normal [facility] Comment on above: Order Comment: Speci men Type: BLOOD SPECIMEN Ordering Facility: [facility] Address: [address] [place] [address] Performed By: #### 5 7021-8 #### [facility] CLIA [id number] [address] [place] [address] [place] Erythrocyte distribution width (RBC) [Ratio] 14.7 % Normal 11.5-15.0 [facility] Comment on above: Order Comment: Speci men Type: BLOOD SPECIMEN Ordering Facility: [facility] Address: [address] [place] [address] Performed By: #### 5 7021-8 #### [facility] CLIA [id number] [address] [place] [address] [place] Hematocrit (Bld) [Volume fraction] 41.3 % Normal 39.0-51.0 [facility] Comment on above: Order Comment: Speci men Type: BLOOD SPECIMEN Ordering Facility: [facility] Address: [address] [place] [address] Performed By: #### 5 7021-8 #### [facility] CLIA [id number] [address] [place] [address] [place] Hemoglobin (Bld) [Mass/Vol] 14.3 g/dL Normal 13.0-17.0 [facility] Comment on above: Order Comment: Speci men Type: BLOOD SPECIMEN Ordering Facility: [facility] Address: [address] [place] [address] Performed By: #### 5 7021-8 #### [facility] CLIA [id number] [address] [place] [address] [place] Immature granulocytes (Bld) [#/Vol] 0.08 10*3/uL Normal <0.10 [facility] Comment on above: Order Comment: Speci men Type: BLOOD SPECIMEN Ordering Facility: [facility] Address: [address] [place] [address] Performed By: #### 5 7021-8 #### [facility] CLIA [id number] [address] [place] [address] [place] Immature granulocytes/100 WBC (Bld) 0.9 % Normal [facility] Comment on above: Order Comment: Speci men Type: BLOOD SPECIMEN Ordering Facility: [facility] Address: [address] [place] [address] Performed By: #### 5 7021-8 #### [facility] CLIA [id number] [address] [place] [address] [place] Lymphocytes (Bld) [#/Vol] 0.89 10*3/uL Low 1.00-4.00 [facility] Comment on above: Order Comment: Speci men Type: BLOOD SPECIMEN Ordering Facility: [facility] Address: [address] [place] [address] Performed By: #### 5 7021-8 #### [facility] CLIA [id number] [address] [place] [address] [place] Lymphocytes/100 WBC (Bld) 9.8 % Normal [facility] Comment on above: Order Comment: Speci men Type: BLOOD SPECIMEN Ordering Facility: [facility] Address: [address] [place] [address] Performed By: #### 5 7021-8 #### [facility] CLIA [id number] [address] [place] [address] [place] MCH (RBC) [Entitic mass] 29.7 pg Normal 26.0-34.0 [facility] Comment on above: Order Comment: Speci men Type: BLOOD SPECIMEN Ordering Facility: [facility] Address: [address] [place] [address] Performed By: #### 5 7021-8 #### [facility] CLIA [id number] [address] [place] [address] [place] MCHC (RBC) [Mass/Vol] 34.6 g/dL Normal 30.5-36.0 [facility] Comment on above: Order Comment: Speci men Type: BLOOD SPECIMEN Ordering Facility: [facility] Address: [address] [place] [address] Performed By: #### 5 7021-8 #### [facility] CLIA [id number] [address] [place] [address] [place] MCV (RBC) [Entitic vol] 85.9 fL Normal 80.0-100.0 [facility] Comment on above: Order Comment: Speci men Type: BLOOD SPECIMEN Ordering Facility: [facility] Address: [address] [place] [address] Performed By: #### 5 7021-8 #### [facility] CLIA [id number] [address] [place] [address] [place] Monocytes (Bld) [#/Vol] 0.85 10*3/uL Normal <0.87 [facility] Comment on above: Order Comment: Speci men Type: BLOOD SPECIMEN Ordering Facility: [facility] Address: [address] [place] [address] Performed By: #### 5 7021-8 #### [facility] CLIA [id number] [address] [place] [address] [place] Monocytes/100 WBC (Bld) 9.3 % Normal [facility] Comment on above: Order Comment: Speci men Type: BLOOD SPECIMEN Ordering Facility: [facility] Address: [address] [place] [address] Performed By: #### 5 7021-8 #### [facility] CLIA [id number] [address] [place] [address] [place] Neutrophils (Bld) [#/Vol] 7.09 10*3/uL Normal 1.45-7.50 [facility] Comment on above: Order Comment: Speci men Type: BLOOD SPECIMEN Ordering Facility: [facility] Address: [address] [place] [address] Performed By: #### 5 7021-8 #### [facility] CLIA [id number] [address] [place] [address] [place] Neutrophils/100 WBC (Bld) 77.7 % Normal [facility] Comment on above: Order Comment: Speci men Type: BLOOD SPECIMEN Ordering Facility: [facility] Address: [address] [place] [address] Performed By: #### 5 7021-8 #### [facility] CLIA [id number] [address] [place] [address] [place] Nucleated RBC (Bld) [#/Vol] 10*3/uL Normal <0.01 [facility] Comment on above: Order Comment: Speci men Type: BLOOD SPECIMEN Ordering Facility: [facility] Address: [address] [place] [address] Performed By: #### 5 7021-8 #### [facility] CLIA [id number] [address] [place] [address] [place] Nucleated RBC/100 WBC (Bld) [Ratio] 0.0 /100 WBC Normal [facility] Comment on above: Order Comment: Speci men Type: BLOOD SPECIMEN Ordering Facility: [facility] Address: [address] [place] [address] Performed By: #### 5 7021-8 #### [facility] CLIA [id number] [address] [place] [address] [place] Platelet mean volume (Bld) [Entitic vol] 13.3 fL High 9.0-12.7 [facility] Comment on above: Order Comment: Speci men Type: BLOOD SPECIMEN Ordering Facility: [facility] Address: [address] [place] [address] Performed By: #### 5 7021-8 #### [facility] CLIA [id number] [address] [place] [address] [place] Platelets (Bld) [#/Vol] 117 10*3/uL Low 150-400 [facility] Comment on above: Order Comment: Speci men Type: BLOOD SPECIMEN Ordering Facility: [facility] Address: [address] [place] [address] Performed By: #### 5 7021-8 #### [facility] CLIA [id number] [address] [place] [address] [place] RBC (Bld) [#/Vol] 4.81 10*6/uL Normal 4.20-6.00 [facility] Comment on above: Order Comment: Speci men Type: BLOOD SPECIMEN Ordering Facility: [facility] Address: [address] [place] [address] Performed By: #### 5 7021-8 #### [facility] CLIA [id number] [address] [place] [address] [place] WBC (Bld) [#/Vol] 9.12 10*3/uL Normal 3.70-11.00 [facility] Comment on above: Order Comment: Speci men Type: BLOOD SPECIMEN Ordering Facility: [facility] Address: [address] [place] [address] Performed By: #### 5 7021-8 #### [facility] CLIA [id number] [address] [place] [address] [place] Comprehensive metabolic 2000 panelon 08-14-2025 Albumin [Mass/Vol] 4.4 g/dL Normal 3.9-4.9 [facility] Comment on above: Order Comment: Speci men Type: BLOOD SPECIMEN Ordering Facility: [facility] Address: [address] [place] [address] Performed By: #### 2 4323-8, 277- #### [facility] CLIA [id number] [address] [place] [address] [place] ALP [Catalytic activity/Vol] 80 U/L Normal 38-113 [facility] Comment on above: Order Comment: Speci men Type: BLOOD SPECIMEN Ordering Facility: [facility] Address: [address] [place] [address] Performed By: #### 2 4323-8, 277- #### [facility] CLIA [id number] [address] [place] [address] [place] ALT [Catalytic activity/Vol] 22 U/L Normal 10-54 [facility] Comment on above: Order Comment: Speci men Type: BLOOD SPECIMEN Ordering Facility: [facility] Address: [address] [place] [address] Performed By: #### 2 4323-8, 27701-24 #### [facility] CLIA [id number] [address] [place] [address] [place] Anion gap [Moles/Vol] 11 mmol/L Normal 8-15 [facility] Comment on above: Order Comment: Speci men Type: BLOOD SPECIMEN Ordering Facility: [facility] Address: [address] [place], [place] [address] Performed By: #### 2 4323-8, 277- #### [facility] CLIA [id number] [address] [place], [place] [address] [place] AST [Catalytic activity/Vol] 20 U/L Normal 14-40 [facility] Comment on above: Order Comment: Speci men Type: BLOOD SPECIMEN Ordering Facility: [facility] Address: [address] [place], [place] [address] Performed By: #### 2 4323-8, 277- #### [facility] CLIA [id number] [address] [place] [address] [place] Bilirubin [Mass/Vol] 1.4 mg/dL High 0.2-1.3 [facility] Comment on above: Order Comment: Speci men Type: BLOOD SPECIMEN Ordering Facility: [facility] Address: [address] [place] [address] Performed By: #### 2 4323-8, 27701-24 #### [facility] CLIA [id number] [address] [place] [address] [place] Calcium [Mass/Vol] 9.8 mg/dL Normal 8.5-10.2 [facility] Comment on above: Order Comment: Speci men Type: BLOOD SPECIMEN Ordering Facility: [facility] Address: [address] [place] [address] Performed By: #### 2 4323-8, 27701-24 #### [facility] CLIA [id number] [address] [place] [address] [place] Chloride [Moles/Vol] 100 mmol/L Normal 98-107 [facility] Comment on above: Order Comment: Speci men Type: BLOOD SPECIMEN Ordering Facility: [facility] Address: [address] [place], [place] [address] Performed By: #### 2 4323-8, 27701-24 #### [facility] CLIA [id number] [address] [place] [address] [place] CO2 [Moles/Vol] 23 mmol/L Normal 22-30 [facility] Comment on above: Order Comment: Speci men Type: BLOOD SPECIMEN Ordering Facility: [facility] Address: [address] [place], [place] [address] Performed By: #### 2 4323-8, 277-1 #### [facility] CLIA [id number] [address] [place] [address] [place] Creatinine [Mass/Vol] 1.11 mg/dL Normal 0.73-1.22 [facility] Comment on above: Order Comment: Noe madrid Type: BLOOD SPECIMEN Ordering Facility: [facility] Address: [address] [place] [address] Performed By: #### 2 4323-8, 2776- #### [facility] CLIA [id number] [address] [place], [place] [address] [place] eGFRcr SerPlBld CKD-EPI 2020 87 mL/min/1.73m??? Normal >=60 [facility] Comment on above: Order Comment: Noe madrid Type: BLOOD SPECIMEN Ordering Facility: [facility] Address: [address] [place] [address] Result Comment: Brenda mated Glomerular Filtration Rate [...] actual GFR. Performed By: #### 2 4323-8, 2776-07 #### [facility] CLIA [id number] [address] [place] [address] [place] Glucose [Mass/Vol] 248 mg/dL High 74-99 [facility] Comment on above: Order Comment: Noe madrid Type: BLOOD SPECIMEN Ordering Facility: [facility] Address: [address] [place] [address] Result Comment: The [place] Diabetes Association (ADA) provides guidance for cutoff [...] Standards of Medical Care in Diabetes 2016, [place] [employer]. Diabetes Care. 2016.39(Suppl 1). Performed By: #### 2 4323-8, 277- #### [facility] CLIA [id number] [address] [place] [address] [place] Potassium [Moles/Vol] 4.5 mmol/L Normal 3.7-5.1 [facility] Comment on above: Order Comment: Louiei mercy Type: BLOOD SPECIMEN Ordering Facility: [facility] Address: [address] [place] [address] Performed By: #### 2 4323-8, 2776-07 #### [facility] CLIA [id number] [address] [place] [address] [place] Protein [Mass/Vol] 7.4 g/dL Normal 6.3-8.0 [facility] Comment on above: Order Comment: Louiei mercy Type: BLOOD SPECIMEN Ordering Facility: [facility] Address: [address] [place] [address] Performed By: #### 2 4323-8, 2776-07 #### [facility] CLIA [id number] [address] [place] [address] [place] Sodium [Moles/Vol] 134 mmol/L Low 136-144 [facility] Comment on above: Order Comment: Louiei men Type: BLOOD SPECIMEN Ordering Facility: [facility] Address: [address] [place] [address] Performed By: #### 2 4323-8, 2776-07 #### [facility] CLIA [id number] [address] [place], [place] [address] [place] Urea nitrogen [Mass/Vol] 22 mg/dL Normal 9-24 [facility] Comment on above: Order Comment: Speci men Type: BLOOD SPECIMEN Ordering Facility: [facility] Address: [address] [place] [address] Performed By: #### 2 4323-8, 2777-1 #### [facility] CLIA [id number] [address] [place] [address] [place] [facility] Phosphate [Mass/Vol] 3.3 mg/dL Normal 2.7-4.8 [facility] Comment on above: Order Comment: Noe madrid Type: BLOOD SPECIMEN Ordering Facility: [facility] Address: [address] [place] [address] Performed By: #### 2 4323-8, 2777-1 #### [facility] CLIA [id number] [address] [place] [address] [place] Tacrolimus Bld-[facility] 2024 Tacrolimus (Bld) [Mass/Vol] 8.4 ng/mL Normal 5.0-20.0 [facility] Comment on above: Order Comment: Noe madrid Type: BLOOD SPECIMEN Ordering Facility: [facility] Address: [address] [place] [address] Result Comment: Nannette vidualized target levels for [...] i. Performed By: #### 1 1253-2 #### [facility] CLIA [id number] [address] [place] [address] [place] CNPNon 02-21-2025 CNPN Telephone ([facility]) [place] RIVERA ([id number]) 1985 M Date Time Provider Department 02/21/25 NADJA SPENCER [facility] During your visit today, we recorded the following information about you: Nadja Spencer, BATOOL 02/21/2025 11:10 AM Signed I called and [...] also agreeable to a virtual visit with entry tech hepatology once he has lab work drawn. 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 He is on vacation this week, so plans to have lab work drawn next week. Nadja Spencer (Cassie) RN, BSN, [facility] Liver Exercise Physiologist Certified Allergies As of Date: 02/21/2025 Noted Allergy [...] Status:Closed by NADJA SPENCER on 02/21/25 Normal [facility] Nonvisit Note - PTon 025 Nonvisit Note - PT Nonvisit Note - PT Pt no showed for 929 appointment. Normal [facility] ED Clinical Summaryon 2024 ED Clinical Summary ED Clinical Summary [place] [id number] ED Clinical Summary Person Information Name: CHUCKIE VILLALTA Shiv[facility] Age: 39 Years : 1985 Sex: Male Language: Ukrainian PCP: LUIS ABDALLA DO Marital Status: Phone: [phone] Visit Id: Visit Reason: Leg pain-swelling; Back [...] 01/26/2025 11:40:59 01/26/2025 11:40:59 01/26/2025 11:40:59 AD[address]ESS: [address] [id number] PHYS DOC NOTES: MEDICAL INFORMATION: Prescriptions Given: [id number], [address], [place] [id number], [phone] predniSONE (predniSONE 20 mg Tab) 3 Tablets By Mouth every day for 7 Days. Refills: 0. PATIENT EDUCATION INFORMATION: Instructions: Acute Back Pain, Adult Follow up: With: Address: When: LUIS ABDALLA [address] [facility] [place] [address] Business (1) In 3 days 01/29/2025 DIAGNOSIS: Back pain Normal [facility] ED Note-Physicianon 01-27-20 ED Note-Physician ED Note-Physician Basic Information Time Seen: Reynaldo Lopez PA-C 01/26/2025 10:56 Chief Complaint pt presents with [...] day(s), # 21 tab(s), Refills(s) 0, Pharmacy: [facility] #[id number], 113.4, cm, 01/26/25 11:00:00 EDT, Height/Length Dosing, [...] In 3 days 01/29/[address]T [address] [facility] (1) Additional Instructions: Patient Education Acute [...] made to ensure accuracy, however, inadvertently computerized engineer internship mistakes may be present. Appropriate healthcare PPE [...] Diagnostic Results No qualifying data available. Normal [facility] Comment on above: Result Comment: Elec tronically Signed By: Reynaldo Lopez PA-C\.br\Date and Time Signed: 01/26/25 12:05 EDT\.br\Electronically Co-Signed By: Ralf Carbajal DO\.br\Date and Time Co-Signed: 01/26/25 18:06 EDT ED Patient Summaryon 025 ED Patient Summary ED Patient Summary [address] [address] Patient Discharge Instructions Person Information Name: CHUCKIE VILLALTA Age: 39 Years Arrival Date: 01/26/2025 10:49:31 Discharge Diagnosis: Back pain Primary Care Physician: LUIS ABDALLA DO Provider Information Primary Provider: Ralf Carbajal DO Advanced Bed Machine Operator:Reynaldo Lopez PA-C The exam and treatment you received in the Emergency Department were for an urgent problem and are not intended as complete care. It is important that you follow up with a doctor, nurse practitioner, or physician???s junior assistant manager for ongoing care. If your symptoms become [...] Instructions: With: Address: When: LUIS ABDALLA [address] [place] [address] [facility] (1) In 3 days 01/29/2025 In the event that this physician does not participate in your insurance network, please consult with your insurance company to find a nearby participating provider. Patient Education Materials: Acute Back Pain, Adult A MESSAGE TO ALL PATIENTS REGARDING OPIOIDS PRESCRIPTION OPIOIDS: WHAT YOU NEED TO KNOW Prescription opioids can be used to help relieve snpmtexp-xb-cyuefo pain and are often prescribed following a [...] from the Food and Drug Administration (www.fda.gov/Drugs/Reso kellyForYou). ??? Visit www.cdc.gov/drugoverdos e to learn about the risks of opioids abuse and overdose. ??? If you believe you may be struggling with addiction, tell your health customer care agent and ask for vani (more content not included)... Normal [facility] Nonvisit Note - PTon 025 Nonvisit Note - PT Nonvisit Note - PT Pt called to cancel his OP physical therapy session today 01/26/25 due to hurting his back, therefore needing to cancel his appointment. Martita Almazan, HOPS FARMWORKER 01/26/25 Normal [facility] XR Spine Lumbosacral 2 or 3 [...] Luis Carrasco MD Transcribed by: DAVID Technologist: Normal [facility] Fibrin D-dimer [Presence] in Platelet poor plasma by Latex agglutinationon 08-20-2024 Fibrin D-dimer LA Ql (PPP) Fibrin D-dimer [Presence] in Platelet poor plasma by Latex agglutination <=0.59 [facility] Comment on above: Increases in [...] anticoagulant therapy, stress, and generalizedhospitalization. Rey 11-04-2022 CNPN Telephone (LU4C) CHUCKIE VILLALTA ([id number]) 1985 M TRN Date Time Provider Department 11/04/22 [place] [facility] [place] visit today, we recorded the [...] Fully Assessed Reason for Visit: Care Coordination [9536] Cmt: [facility] clinic Prescriptions as [...] Encounter Status:Closed by MIMI CLEMENS on 11/04/22 [facility] FLUORO ERCP (POC) FOR DDI US E ONLYon 09-04-2022 [facility] CNOVon 02-25-2022 CNOV Office Visit (PSCHL) CHUCKIE VILLALTA ([id number]) 1985 M TRN Date Time Provider Department 02/25/22 9:00 AM ROSEMARIE SHEPARD During your visit today, we recorded the following information about you: SHAQ Chua 02/25/2022 10:46 AM Signed [facility] Assessment Visit Type:Virtual Visit utilizing two-way audio and video for at least a portion of the visit IDENTIFYING INFORMATION: [phone] [email or web address] Lives with of nine years, Екатерина and [...] consented to virtual evaluation. Patient and this casualty underwriter present during interview. PRECIPITATING PROBLEM(S):Patient was [...] Age 16, every other weekend. Went to [employer] for college drank heavily on weekends, then [...] was intend (more content not included)... Normal [facility] CT ABDOMEN W IVCONon 022 [facility] Basic Metabolic Panlon 07-12 Anion gap [Moles/Vol] 8 mmol/L Low 9-18 [facility] Calcium [Mass/Vol] 8.6 mg/dL Normal 8.5-10.2 [facility] Chloride [Moles/Vol] 103 mmol/L Normal 97-105 [facility] CO2 [Moles/Vol] 24 mmol/L Normal 22-30 [facility] Creatinine [Mass/Vol] 2.67 mg/dL High 0.73-1.22 [facility] eGFR- Amer. 33 Normal [facility] Comment on above: Result Comment: The [place] Diabetes Association (ADA) provides guidance for cutoff [...] Standards of Medical Care in Diabetes 2016, [place] Diabetes Association. Diabetes Care. 2016.39(Suppl 1). Potassium [Moles/Vol] 3.3 mmol/L Low 3.7-5.1 [facility] Sodium [Moles/Vol] 135 mmol/L Low 136-144 [facility] Urea nitrogen [Mass/Vol] 11 mg/dL Normal 9-24 [facility] CASE MANAGEMon 07-12-2021 CASE MANAGEM HNO ID: [id number] Author: Nanette Dangelo RN Service: ? Author [...] 12, 2021 TIME: 4:48 PM PAGER/CONTACT #: [facility] CNDSon 07-12-2021 CNDS HNO ID: [id number] Author: [place] MD Service: Hospital Medicine [...] GI team who initially recommended ERCP at [facility] but at this time planning [...] 1.3. He was seen by infectious disease wardrobe consultant today who recommended adding G6PD to [...] specialist. You were also seen by pain change management facilitator while you are in the hospital. I have not added any pain medications due to near complete resolution of symptoms. You were seen by neurologist recently for the patient's symptoms. They will follow up as an outpatient also. Please follow-up with primary MD in 1 week Follow-up with transplant team at the earliest available appointment-patient assessment coordinator has promised to set up an [...] Pain Management Consult CONSULT TO PAIN MANAGEMENT (LENCHO,DARIANA,EU,FV,KEEGAN,MM,SP) CONSULT TO CC NEPHROLOGY (DARIANA,FV,MM) PHYSICIAN CONSULT [...] [facility]2021 CONSULT HNO ID: [id number] Author: Latrell Cabello MD Service: Infectious Disease [...] Smoking status: Nev (more content not included)... [facility] CONSULT PROGon 07-12-2021 CONSULT PROG HNO ID: [id number] Author: Justin Glasgow PA-C Service: Pain Management Author Type: Physician Instrument Maker Type: Consult Progress Note Filed: 07/12/2021 4:02 [...] Pain scores overnight between 4-8/10 per [employer] Supervisor. The patient's current inpatient analgesic regimen has [...] MPAS, PA-C July 12, 2021 4:01 PM [facility] CONSULT PROG HNO ID: [id number] Author: Spike Gandara MD Service: Nephrology Author Type: Physician Type: Consult Progress Note Filed: 07/12/2021 12:22 PM Note Text: [facility] NEPHROLOGY CONSULT PROGRESS NOTE SERVICE DATE: [...] DATE: July 12, 2021 12:22 PM PHONE: [phone] FOR AFTER HOUR CONCERNS BETWEEN 7PM - [...] 1.6 mg/dL High 0.2-1.3 [facility] Bilirubin,Conjugate d 1.0 mg/dL High <0.2 [facility] Protein [Mass/Vol] 5.7 g/dL Low 6.3-8.0 [facility] NURSING PROGon 07-12-2021 NURSING PROG HNO ID: [id number] Author: Marcela Mcdaniel RN Service: Nursing Author Type: Registered Nurse Type: Nursing Progress Note Filed: 07/12/2021 1:03 AM Note Text: Nursing Progress Note Patient Name: Chuckie Villalta Patient Location: / Daily Note: Report received from BATOOL Nolan. Pt resting comfortably in bed. Will continue to monitor. This note was completed by: Marcela Mcdaniel Normal [facility] Tacrolimus / [id number] Tacrolimus / FK506 7.7 ng/mL Normal [...] situation. Test performed by chemiluminescent immunoassay using [employer]. Performed By: #### F K506 ####[facility], [place] [phone] Amylaseon 07-11-2021 Amylase [Catalytic activity/Vol] 59 U/L Normal 30-104 [facility] Basic Metabolic Panlon 07-11 Anion gap [Moles/Vol] 10 mmol/L Normal 9-18 [facility] Calcium [Mass/Vol] 8.5 mg/dL Normal 8.5-10.2 [facility] Chloride [Moles/Vol] 103 mmol/L Normal 97-105 [facility] CO2 [Moles/Vol] 22 mmol/L Normal 22-30 [facility] Creatinine [Mass/Vol] 2.77 mg/dL High 0.73-1.22 [facility] eGFR- Amer. 32 Normal [facility] Comment on above: Result Comment: The [place] Diabetes Association (ADA) provides guidance for cutoff [...] Standards of Medical Care in Diabetes 2016, [place] Diabetes Association. Diabetes Care. 2016.39(Suppl 1). Potassium [Moles/Vol] 3.5 mmol/L Low 3.7-5.1 [facility] Sodium [Moles/Vol] 135 mmol/L Low 136-144 [facility] Urea nitrogen [Mass/Vol] 12 mg/dL Normal 9-24 [facility] CONSULT PROGon 07-11-2021 CONSULT PROG HNO ID: [id number] Author: Spike Gandara MD Service: Nephrology Author Type: Physician Type: Consult Progress Note Filed: 07/11/2021 1:06 PM Note Text: [facility] NEPHROLOGY CONSULT PROGRESS NOTE SERVICE DATE: [...] stenosis, seem by GI, pending transfer to [facility] ? Hemochromatosis s/p OLT on [...] DATE: July 11, 2021 1:03 PM PHONE: [phone] FOR AFTER HOUR CONCERNS BETWEEN 7PM - 7AM CONTACT ON-CALL NEPHROLOGY STAFF [facility] CONSULT PROG HNO ID: [id number] Author: Justin Glasgow PA-C Service: Pain Management Author Type: Physician Instrument Maker Type: Consult Progress Note Filed: 07/11/2021 11:02 [...] Pain scores overnight between 4-9/10 per [employer] Supervisor. The patient's current inpatient analgesic regimen includes: [...] Anion gap [Moles/Vol] 10 mmol/L Normal 9-18 [facility] Calcium [Mass/Vol] 8.5 mg/dL Normal 8.5-10.2 [facility] Chloride [Moles/Vol] 106 mmol/L High 97-105 [facility] CO2 [Moles/Vol] 21 mmol/L Low 22-30 [facility] Creatinine [Mass/Vol] 2.80 mg/dL High 0.73-1.22 [facility] eGFR- Amer. 31 Normal [facility] Comment on above: Result Comment: The [place] Diabetes Association (ADA) provides guidance for cutoff [...] Standards of Medical Care in Diabetes 2016, [place] Diabetes Association. Diabetes Care. 2016.39(Suppl 1). Potassium [Moles/Vol] 3.5 mmol/L Low 3.7-5.1 [facility] Sodium [Moles/Vol] 137 mmol/L Normal 136-144 [facility] Urea nitrogen [Mass/Vol] 13 mg/dL Normal 9-24 [facility] CONSULT PROGon 07-10-2021 CONSULT PROG HNO ID: [id number] Author: Justin Glasgow PA-C Service: Pain Management Author Type: Physician Instrument Maker Type: Consult Progress Note Filed: 07/10/2021 12:38 [...] Pain scores overnight between 4-7/10 per [employer] Supervisor. The patient's current inpatient analgesic regimen includes: [...] Garrido, PA-C July 10, 2021 12:38 PM [facility] CONSULT PROG HNO ID: [id number] Author: Spike Gandara MD Service: Nephrology Author Type: Physician Type: Consult Progress Note Filed: 07/10/2021 11:42 AM Note Text: [facility] NEPHROLOGY CONSULT PROGRESS NOTE SERVICE DATE: [...] stenosis, seem by GI, pending transfer to [facility] ? Hemochromatosis s/p OLT on [...] DATE: July 10, 2021 11:41 AM PHONE: [phone] FOR AFTER HOUR CONCERNS BETWEEN 7PM - 7AM CONTACT ON-CALL NEPHROLOGY STAFF [facility] Tacrolimus / [id number] Tacrolimus / [id number] 9.3 ng/mL Normal [...] situation. Test performed by chemiluminescent immunoassay using [employer]. Performed By: #### F K506 ####[facility] [address], [place] [phone] [facility] 07-09-2021 [facility] HNO ID: [id number] Author: RT Kristyn(R) Service: ? Author Type: [...] Kristyn(R) July 08, 2021 11:17 PM Normal [facility] CASE MANAGEMon 07-09-2021 CASE MANAGEM HNO ID: [id number] Author: Nanette Dangelo RN Service: ? Author [...] k/uL Normal <0.11 [facility] Abs [place] 1.28 k/uL High <0.87 [facility] Abs Neut 7.42 k/uL Normal 1.45-7.50 [facility] ANC(includeSEG+BAND ) 7.42 k/uL Normal [facility] Anisocytosis Ql (Bld) Present Normal [facility] Basophils/100 WBC (Bld) [...] MCHC (RBC) [Mass/Vol] 34.6 g/dL Normal 30.5-36.0 [facility] MCV (RBC) [Entitic vol] 101.2 fL [...] CONSULT PROGon 07-09-2021 CONSULT PROG HNO ID: [id number] Author: Justin Glasgow PA-C Service: Pain Management Author Type: Physician Instrument Maker Type: Consult Progress Note Filed: 07/09/2021 3:41 [...] Pain scores overnight between 4-8/10 per [employer] Supervisor. The patient's current inpatient analgesic regimen includes: [...] Garrido, PA-C July 09, 2021 3:41 PM [facility] CONSULT PROG HNO ID: [id number] Author: Ana Cotton APRN.HERNANDEZ Service: Gastroenterology Author [...] Pt continues to wait for bed at [facility] main, pt will likely still be inpatient for few days while monitoring kidney function and tacro levels if does not get a bed still at that time and tolerating diet can likely get scheduled for ERCP at [facility] main as outpatient Will continue to monitor peripherally Normal [facility] CONSULT PROG HNO ID: [id number] Author: Spike Gandara MD Service: Nephrology Author Type: Physician Type: Consult Progress Note Filed: 07/09/2021 12:32 PM Note Text: [facility] NEPHROLOGY CONSULT PROGRESS NOTE SERVICE DATE: [...] stenosis, seem by GI, pending transfer to [facility] ? Hemochromatosis s/p OLT on [...] DATE: July 09, 2021 11:39 AM PHONE: [phone] FOR AFTER HOUR CONCERNS BETWEEN 7PM - 7AM CONTACT ON-CALL NEPHROLOGY STAFF [facility] CONSULT PROG HNO ID: [id number] Author: Valencia Noguera [facility] Service: Pharmacy Author Type: Pharmacist Type: [...] have reviewed the above information with the manager clinical pharmacy/resident or lead maintenance technician and agree with the assessment/plan described. Changes or additions to the note are indicated by italics and . Valencia Noguera, Pharmacist 07/09/2021 7:54 AM Ext: [phone] [facility] CONSULT PROG HNO ID: [id number] Author: Lei Mckoy [facility] Service: Pharmacy Author Type: Pharmacist Type: [...] 18.6 07/07/2021 2002 37.3 (H) Lei Mckoy, [facility] Normal [facility] Comp Metabolic Panelon 07-09 Albumin [Mass/Vol] 2.9 g/dL Low 3.9-4.9 [facility] ALP [Catalytic activity/Vol] 63 U/L Normal 38-113 [facility] ALT [Catalytic activity/Vol] 16 U/L Normal 10-54 [facility] Anion gap [Moles/Vol] 8 mmol/L Low 9-18 [facility] AST [Catalytic activity/Vol] 17 U/L Normal 14-40 [facility] Bilirubin [Mass/Vol] 1.0 mg/dL Normal 0.2-1.3 [facility] Calcium [Mass/Vol] 8.0 mg/dL Low 8.5-10.2 [facility] Chloride [Moles/Vol] 109 mmol/L High 97-105 [facility] CO2 [Moles/Vol] 20 mmol/L Low 22-30 [facility] Creatinine [Mass/Vol] 2.83 mg/dL High 0.73-1.22 [facility] eGFR- Amer. 31 Normal [facility] Comment on above: Result Comment: The [place] Diabetes Association (ADA) provides guidance for cutoff [...] Standards of Medical Care in Diabetes 2016, [place] Diabetes Association. Diabetes Care. 2016.39(Suppl 1). Potassium [Moles/Vol] 3.8 mmol/L Normal 3.7-5.1 [facility] Protein [Mass/Vol] 5.1 g/dL Low 6.3-8.0 [facility] Sodium [Moles/Vol] 137 mmol/L Normal 136-144 [facility] Urea nitrogen [Mass/Vol] 16 mg/dL Normal 9-24 [facility] MRI BRAIN WO IVCONon 12-14-2 021 MRI BRAIN WO IVCON * * *Final Report* * * DATE OF EXAM: Jul 08 2021 11:28PM [facility] 0294 - MRI BRAIN WO IVCON / [...] if there is concern for demyelinating disease. Recapper: GUILLE Transcribe Date/Time: Jul 09 2021 2:02A Dictated by : CARLOS ALEJANDRA MD This examination was interpreted and the report reviewed and electronically signed by: CARLOS ALEJANDRA MD on Jul 09 2021 2:09AM EST [id number] Normal [facility] Magnesiumon 07-09-2021 Magnesium [Mass/Vol] 1.8 mg/dL Normal 1.7-2.3 [facility] NURSING PROGon 07-09-2021 NURSING PROG HNO ID: [id number] Author: Demetrice Chacon RN Service: Nursing Author Type: Registered Nurse Type: Nursing Progress Note Filed: 07/09/2021 6:19 AM Note Text: Nursing Progress Note Patient Name: Chuckie Villalta Patient Location: [place] [address] Daily Note:alert and oriented, independent with mobility, [...] [facility] Protein/Creatinine Ratioon 1 09-09-2020 Creatinine,Urine,Ra n 68.3 mg/dL Normal 20-300 [facility] Comment on above: Performed By: #### P RATIO ####[facility], [place] [phone] Protein (U) [Mass/Vol] 7 mg/dL Normal 0-20 [facility] Comment on above: Performed By: #### P RATIO ####[address] [phone] Protein/Creatinine Ratio 0.1 Normal <0.2 [facility] Comment on above: Performed By: #### P RATIO ####[address] [phone] Urinalysis with Microscopico n 07-09-2021 Bilirubin, Urine [...] 0-3 Normal 0-3 [facility] Specific [place], Ur 1.010 Normal 1.005-1.030 [facility] Urobilinogen Qn (U) 0.2 {Andrea'U}/dL Normal 0.2-1.0 [facility] WBC 0-5 Normal 0-5 [facility] ALLIED HEALTHon 07-08-2021 ALLIED HEALTH HNO ID: [id number] Author: Joshua Moran Service: Spiritual Care Author Type: ? Type: Allied Health Filed: 07/08/2021 1:06 PM Note Text: SPIRITUAL CARE PROGRESS NOTE SERVICE DATE: 07/08/2021 SERVICE TIME: 12:45PM Pt listed as Zoroastrianism Taoist in [facility], and he shared that he and his family attend the [place] in [place], [place]; pt in good spirits but drowsy at the time of visit; shared that he has undergone a liver transplant, and is now dealing with pancreatitis; provided him with a daily devotional for his use, and offered a blessing bedside; no follow-up planned unless requested. To contact the Spiritual Care Department: Please call Ext [phone] SIGNATURE: Joshua Moran PATIENT NAME: Chuckie Villalta DATE: July 08, 2021 TIME: 1:04 PM PAGER/CONTACT #: [phone] Normal [facility] CBC and Differentialon 07-08 Abs Baso 0.00 k/uL Normal <0.11 [facility] Abs [place] 1.25 k/uL High <0.87 [facility] Abs Neut 6.26 k/uL Normal 1.45-7.50 [facility] ANC(includeSEG+BAND ) 6.26 k/uL Normal [facility] Anisocytosis Ql (Bld) Present Normal [facility] Basophils/100 WBC (Bld) [...] MCHC (RBC) [Mass/Vol] 34.6 g/dL Normal 30.5-36.0 [facility] MCV (RBC) [Entitic vol] 102.4 fL [...] [facility] CON[facility] 07-08-2021 CONSULT HNO ID: [id number] Author: Justin Glasgow PA-C Service: Pain Management Author Type: Physician Instrument Maker Type: Consults Filed: 07/08/2021 2:06 PM Note Text: PAIN MANAGEMENT CONSULT -- [facility] PATIENT NAME: Chuckie Villalta DATE of [...] Date Noted - Acute pancreatitis 07/05/2021 - YONA (acute kidney injury) (HCC) 07/05/2021 - Hypomagnesemia 07/05/2021 - Pancreatitis 07/05/2021 - Primary hypertension 07/05/2021 - Liver transplant recipient (HCC) 07/10/2019 - Hemochromatosis 03/18/2018 CHIEF COMPLAINT: Upper abdominal pain. HPI: Chuckie Villalta is a 35 year old year old male admitted on 07/05/2021 with acute pancreatitis. Pain Management is consulted RE: acute pancreatitis, on fentanyl executive asst by Dr. Jolynn Jaquez and Lisseth Raymond [...] (PF) 4 mg injection (ZOFRAN) - fentaNYL SHIP'S COOK 20 mcg/mL in NaCl 0.9% 100 mL [...] Normal [facility] CONSULT HNO ID: [id number] Author: Spike Gandara MD Service: Nephrology Author Type: Physician Type: Consults Filed: 07/08/2021 2:05 PM Note Text: [facility] NEPHROLOGY AND HYPERTENSION [facility] SERVICE DATE: July [...] CONSULT PROGon 07-08-2021 CONSULT PROG HNO ID: [id number] Author: Ana Cotton APRN.[employer] Service: Gastroenterology Author Type: Nurse Practitioner [...] Splenomegaly. 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 Will discuss with staff and SM Dr. Barr as well. Normal [facility] Calcium, Ionizedon Calcium, Ionized 1.12 mmol/L Normal 1.08-1.30 [facility] Comp Metabolic Panelon 07-08 Albumin [Mass/Vol] 2.9 g/dL Low 3.9-4.9 [facility] ALP [Catalytic activity/Vol] 60 U/L Normal 38-113 [facility] ALT [Catalytic activity/Vol] 22 U/L Normal 10-54 [facility] Anion gap [Moles/Vol] 8 mmol/L Low 9-18 [facility] AST [Catalytic activity/Vol] 38 U/L Normal 14-40 [facility] Bilirubin [Mass/Vol] 1.6 mg/dL High 0.2-1.3 [facility] Calcium [Mass/Vol] 8.0 mg/dL Low 8.5-10.2 [facility] Chloride [Moles/Vol] 106 mmol/L High 97-105 [facility] CO2 [Moles/Vol] 18 mmol/L Low 22-30 [facility] Creatinine [Mass/Vol] 2.34 mg/dL High 0.73-1.22 [facility] eGFR- Amer. 39 Normal [facility] Comment on above: Result Comment: The [place] Diabetes Association (ADA) provides guidance for cutoff [...] Standards of Medical Care in Diabetes 2016, [place] Diabetes Association. Diabetes Care. 2016.39(Suppl 1). Potassium [Moles/Vol] 3.9 mmol/L Normal 3.7-5.1 [facility] Protein [Mass/Vol] 4.9 g/dL Low 6.3-8.0 [facility] Sodium [Moles/Vol] 132 mmol/L Low 136-144 [facility] Urea nitrogen [Mass/Vol] 17 mg/dL Normal 9-24 [facility] Lipaseon 07-08-2021 Lipase [Catalytic activity/Vol] 235 U/L High 16-61 [facility] Magnesiumon 07-08-2021 Magnesium [Mass/Vol] 1.4 mg/dL Low 1.7-2.3 [facility] Tacrolimus / [id number] Tacrolimus / [id number] 23.3 ng/mL High [...] situation. Test performed by chemiluminescent immunoassay using [employer]. Performed By: #### F K506 ####[facility], [place] [phone] US ABD RIGHT UPPER QUADRANTo n 07-08-2021 US ABD RIGHT UPPER QUADRANT * * *Final Report* * * DATE OF EXAM: Jul 08 2021 12:08PM [facility] 1032 - US ABD RIGHT UPPER [...] 5. Trace ascites in the upper abdomen. Recapper: [facility] Transcribe Date/Time: Jul 08 2021 12:28P Dictated by : ROCIO MANZO MD This examination was interpreted and the report reviewed and electronically signed by: ROCIO MANZO MD on Jul 08 2021 12:32PM EST [id number] Normal [facility] US ABD SPLEEN -NBon 07-08-20 US ABD SPLEEN -NB * * *Final Report* * * DATE OF EXAM: Jul 08 2021 12:08PM [facility] 1232 - US ABD SPLEEN -NB [...] 5. Trace ascites in the upper abdomen. Recapper: [facility] Transcribe Date/Time: Jul 08 2021 [...] MCHC (RBC) [Mass/Vol] 36.1 g/dL High 30.5-36.0 [facility] MCV (RBC) [Entitic vol] 100.3 fL High 80.0-100.0 [facility] Platelet mean volume (Bld) [Entitic vol] 11.8 fL Normal 9.0-12.7 [facility] Platelets (Bld) [#/Vol] 45 10*3/uL Low 150-400 [facility] RBC (Bld) [#/Vol] 2.90 10*6/uL Low 4.20-6.00 [facility] WBC (Bld) [#/Vol] 9.23 10*3/uL Normal 3.70-11.00 [facility] CONSULT PROGon 07-07-2021 CONSULT PROG HNO ID: [id number] Author: Valencia Noguera RPh Service: Pharmacy Author [...] have any questions, please contact pharmacy at [phone]. Age: [age] year old Allergies: ALLERGIES Allergen [...] Date/Time Value 07/07/20212001 37.3 (H) Valencia Noguera, RPh Normal [facility] Comp Metabolic Panelon 07-07 Albumin [Mass/Vol] 3.0 g/dL Low 3.9-4.9 [facility] ALP [Catalytic activity/Vol] 70 U/L Normal 38-113 [facility] ALT [Catalytic activity/Vol] 41 U/L Normal 10-54 [facility] Anion gap [Moles/Vol] 9 mmol/L Normal 9-18 [facility] AST [Catalytic activity/Vol] 131 U/L High 14-40 [facility] Bilirubin [Mass/Vol] 4.9 mg/dL High 0.2-1.3 [facility] Calcium [Mass/Vol] 7.9 mg/dL Low 8.5-10.2 [facility] Chloride [Moles/Vol] 105 mmol/L Normal 97-105 [facility] CO2 [Moles/Vol] 18 mmol/L Low 22-30 [facility] Creatinine [Mass/Vol] 1.63 mg/dL High 0.73-1.22 [facility] eGFR- Amer. 59 Normal [facility] Comment on above: Result Comment: The [place] Diabetes Association (ADA) provides guidance for cutoff [...] Standards of Medical Care in Diabetes 2016, [place] Diabetes Association. Diabetes Care. 2016.39(Suppl 1). Potassium [Moles/Vol] 4.1 mmol/L Normal 3.7-5.1 [facility] Protein [Mass/Vol] 5.0 g/dL Low 6.3-8.0 [facility] Sodium [Moles/Vol] 132 mmol/L Low 136-144 [facility] Urea nitrogen [Mass/Vol] 15 mg/dL Normal 9-24 [facility] NURSING PROGon 07-07-2021 NURSING PROG HNO ID: [id number] Author: Preethi Slater RN Service: Nursing Author Type: Registered Nurse Type: Nursing Progress Note Filed: 07/06/2021 11:25 PM Note Text: Nursing Progress Note Patient Name: Chuckie Villalta Patient Location: [place] [address] [address] Transfer Note: Patient transferred from [facility] Room [address] [place] [address] by bed in stable condition with IV fluids, IV antibiotics, and a [employer] pump with on demand fentanyl. Vital signs obtained, patient oriented to room. Call light within reach. This note was completed by: Preethi Slater RN Normal [facility] NURSING PROG HNO ID: [id number] Author: Delilah Le RN Service: Nursing Author [...] the specific clinical situation. CASE MGT INIT [facility]: [id number] Author: Mariluz Salamanca RN Service: Nursing Author Type: Registered Nurse Type: Care Mgt Initial Assessment Filed: 07/06/2021 2:04 PM Note Text: CARE MANAGEMENT: ASSESSMENT AND DISCHARGE PLAN SERVICE DATE: July 06, 2021 SERVICE TIME: 1:59 PM PRIMARY CARE PHYSICIAN: Luis Abdalla DO ADMISSION STATUS: Inpatient MEDICAL: [facility] MEDICAID Health Insurance: [facility] ([facility] Medicaid) Last Discharge Date: 02/13/20 Is this Within the Past 30 days? Advance Directive: Current Advance Directive: Health Care Power of Kinder Teacher In Chart: Yes Up To Date and Valid: Yes Baseline Mental Status Prior to this Illness what was the patient's Baseline Mental Status?: Alert AND Oriented Prior to this illness, has anyone described the patient having any of the following behaviors?: Not Applicable Relationship of the informant to the patient:: Self Primary Contact: Extended Emergency Contact Information Primary Emergency Contact: Remedios Villalta Address: [address] [place] [address] Mobile Relation: Spouse Supportive Patient Contact:: Yes Contact Resources: Family;Significant Other FREEDOM OF CHOICE EXPLAINED: [place] of Choice Given: No Reason Not Given: [...] 06, 2021 TIME: 1:59 PM PAGER/CONTACT #: [phone] Normal [facility] CBC and Differentialon 07-06 Abs Baso 0.00 k/uL Normal <0.11 [facility] Abs [place] 0.64 k/uL Normal <0.87 [facility] Abs Neut 8.13 k/uL High 1.45-7.50 [facility] ANC(includeSEG+BAND ) 8.13 k/uL Normal [facility] Basophils/100 [...] MCHC (RBC) [Mass/Vol] 36.9 g/dL High 30.5-36.0 [facility] MCV (RBC) [Entitic vol] 94.8 fL [...] [facility] CONSULTon 07-06-2021 CONSULT HNO ID: [id number] Author: Og Gibbs MD Service: Gastroenterology Author [...] and hi s transferring the patient to [facility] giving his complex medica history and the need for repeated ERCP Dr. Wilburn reviewed the case too and agreed to transfer the patient to for further care Normal [facility] CONSULT PROGon 07-06-2021 CONSULT PROG HNO ID: [id number] Author: Pearl Mann [facility] Service: Pharmacy Author Type: Pharmacist Type: [...] any questions, please contact Pharmacy at ex [phone]. Age: [age] year old Allergies: ALLERGIES Allergen [...] Levels: No results found for: CHIDI Mann [facility] Normal [facility] Comp Metabolic Panelon 07-06 Albumin [Mass/Vol] 3.5 g/dL Low 3.9-4.9 [facility] ALP [Catalytic activity/Vol] 60 U/L Normal 38-113 [facility] ALT [Catalytic activity/Vol] 60 U/L High 10-54 [facility] Anion gap [Moles/Vol] 15 mmol/L Normal 9-18 [facility] AST [Catalytic activity/Vol] 361 U/L High 14-40 [facility] Bilirubin [Mass/Vol] 6.6 mg/dL High 0.2-1.3 [facility] Calcium [Mass/Vol] 7.8 mg/dL Low 8.5-10.2 [facility] Chloride [Moles/Vol] 102 mmol/L Normal 97-105 [facility] CO2 [Moles/Vol] 15 mmol/L Low 22-30 [facility] Creatinine [Mass/Vol] 1.73 mg/dL High 0.73-1.22 [facility] eGFR- Amer. 55 [facility] Comment on above: Result Comment: The [place] Diabetes Association (ADA) provides guidance for cutoff [...] Standards of Medical Care in Diabetes 2016, [place] [employer] Association. Diabetes Care. 2016.39(Suppl 1). Potassium [Moles/Vol] 4.3 mmol/L Normal 3.7-5.1 [facility] Protein [Mass/Vol] 5.2 g/dL Low 6.3-8.0 [facility] Sodium [Moles/Vol] 132 mmol/L Low 136-144 [facility] Urea nitrogen [Mass/Vol] 17 mg/dL Normal 9-24 [facility] ED NOTEon 07-06-2021 ED NOTE HNO ID: [id number] Author: Marcela Corley RN Service: Nursing Author Type: Registered Nurse Type: ED Notes Filed: 07/06/2021 4:57 AM Note Text: Report to Loraine RENAE. Normal [facility] ED NOTE HNO ID: [id number] Author: Marcela Corley RN Service: Nursing Author Type: Registered Nurse Type: ED Notes Filed: 07/06/2021 4:51 AM Note Text: Pt resting in bed at this time. Call light within reach, will continue to monitor. Normal [facility] Expedited [id number] 07-06-20 21 SARS-CoV-2 (COVID-19) RNA NOLBERTO+probe Ql (Unsp spec) [...] NURSING PROGon 07-06-2021 NURSING PROG HNO ID: [id number] Author: Loraine Ya RN Service: Nursing Author Type: Registered Nurse Type: Nursing Progress Note Filed: 07/06/2021 6:31 AM Note Text: Nursing Progress Note Patient Name: Chuckie Villalta Patient Location: [place] [address]/[facility] Transfer Note: Patient transferred into room/unit 426 in stable condition. Actions taken: Report given by Marcela RENAE. No futher actions taken at this time. Will continue to monitor and check with patient. Patient belongings with patient oriented to room, answered questions, denies needs at this time. This note was completed by: Loraine Ya [facility] XR CHEST 1V FRONTAL PORTon 1 [...] are detected. IMPRESSION: No acute radiographic abnormality. Recapper: GUILLE Transcribe Date/Time: Jul 05 2021 11:38P Dictated by : RIK YUN MD This examination was interpreted and the report reviewed and electronically signed by: RIK YUN MD on Jul 05 2021 11:39PM EST [id number] [facility] APTTon 07-05-2021 aPTT Coag (Bld) [Time] 22.6 s Low 23.0-32.4 [facility] Comment on above: Result Comment: Unfr [...] laboratory APTT reagent in use throughout the [facility]. Acetaminophenon 07-05-2021 Acetaminophen [Mass/Vol] ug/mL Low - [facility] Comment on above: Result Comment: Toxi c > 150 ug/mL 4 hours post ingestion The Ginger Akins nomogram can be used to estimate the probability of hepatotoxicity via the relationship of plasma acetaminophen concentration to the post ingestion interval. (Gareth. Pediatrics. 1975. 55:871 to 876 and Ginger et al. Arch Nurse Licensed Practical Med. 1981. 141:380 to 385). Reference ranges and high/low indicator flags are provided as general guidelines only. The treating physician must determine appropriate target levels/dosing based on the specific clinical situation. Blood Cultureon 07-05-2021 Bacteria identified Cx Nom (Bld) Culture Result - No growth 5 days Normal [facility] Comment on above: Performed By: #### B LCUL ####[address] [phone] CBC and Differentialon 07-05 Abs Baso 0.00 k/uL Normal <0.11 [facility] Comment on above: Performed By: #### C BCDIF ####[address] [phone] Abs [place] 0.97 k/uL High <0.87 [facility] Comment on above: Performed By: #### C BCDIF ####[address] [phone] Abs Neut 28.35 k/uL High 1.45-7.50 [facility] Comment on above: Performed By: #### C BCDIF ####[place] [phone] Anisocytosis Ql (Bld) Present Normal [facility] Comment on above: Performed By: #### C BCDIF ####[place] [phone] Basophils/100 WBC (Bld) 0.0 % Normal [facility] Comment on above: Performed By: #### C BCDIF ####[place] [phone] DTYPE Manual Diff Normal [facility] Comment on above: Performed By: #### C BCDIF ####[place] [phone] Eosinophils (Bld) [#/Vol] 0.00 10*3/uL Normal <0.46 [facility] Comment on above: Performed By: #### C BCDIF ####[place] [phone] Eosinophils/100 WBC (Bld) 0.0 % Normal [facility] Comment on above: Performed By: #### C BCDIF ####[place] [phone] Erythrocyte distribution width (RBC) [Ratio] 15.1 % High 11.5-15.0 [facility] Comment on above: Performed By: #### C BCDIF ####[place] [phone] Hematocrit (Bld) [Volume fraction] 43.2 % Normal 39.0-51.0 [facility] Comment on above: Performed By: #### C BCDIF ####[place] [phone] Hemoglobin (Bld) [Mass/Vol] 16.2 g/dL Normal 13.0-17.0 [facility] Comment on above: Performed By: #### C BCDIF ####[address] [phone] Lymphocytes (Bld) [#/Vol] 0.00 10*3/uL Low 1.00-4.00 [facility] Comment on above: Performed By: #### C BCDIF ####[address] [phone] Lymphocytes/100 WBC (Bld) 0.0 % Normal [facility] Comment on above: Performed By: #### C BCDIF ####[place] [phone] MCH 35.1 pG High 26.0-34.0 [facility] Comment on above: Performed By: #### C BCDIF ####[address] [phone] MCHC (RBC) [Mass/Vol] 37.5 g/dL High 30.5-36.0 [facility] Comment on above: Performed By: #### C BCDIF ####[place] [phone] MCV (RBC) [Entitic vol] 93.7 fL Normal 80.0-100.0 [facility] Comment on above: Performed By: #### C BCDIF ####[place] [phone] Monocytes/100 WBC (Bld) 3.3 % Normal [facility] Comment on above: Performed By: #### C BCDIF ####[address] [phone] Neutrophils/100 WBC (Bld) 96.7 % [facility] Comment on above: Performed By: #### C BCDIF ####[address] [phone] Platelet Estimate Platelet estimate adequate Normal [facility] Comment on above: Performed By: #### C BCDIF ####[facility] [place], [place] [phone] Platelet mean volume (Bld) [Entitic vol] 11.6 fL Normal 9.0-12.7 [facility] Comment on above: Performed By: #### C BCDIF ####[facility] [place], [place] [phone] Platelets (Bld) [#/Vol] 173 10*3/uL Normal 150-400 [facility] Comment on above: Performed By: #### C BCDIF ####[facility] [place], [place] [phone] Polychromasia Slight Normal [facility] Comment on above: Performed By: #### C BCDIF ####[address] [phone] RBC (Bld) [#/Vol] 4.61 10*6/uL Normal 4.20-6.00 [facility] Comment on above: Performed By: #### C BCDIF ####[facility] [place], [place] [phone] WBC (Bld) [#/Vol] 29.32 10*3/uL High 3.70-11.00 [facility] Comment on above: Result Comment: Resu lt checked and verified No clot detected. Performed By: #### C BCDIF ####[address] [phone] CONSULT PROGon 07-05-2021 CONSULT PROG HNO ID: [id number] Author: Pearl Mann RPh Service: Pharmacy Author [...] any questions, please contact Pharmacy at ex [phone]. Age: [age] year old Allergies: ALLERGIES Allergen [...] Levels: No results found for: CHIDI Mann [facility] CT ABD/PEL WO IVCONon 2020 CT ABD/PEL WO IVCON * * *Final Report* * * DATE OF EXAM: Jul 05 2021 7:05PM [facility] 0531 - CT ABD/PEL WO IVCON [...] abnormality. Lumbosacral pars defects. Lower thorax: Unremarkable. Newspaper Carriers Supervisor (topogram) images: No additional findings. IMPRESSION: Extensive pancreatitis with inflammatory changes surrounding the transverse colon, spleen and retroperitoneum. Small volume ascites is present. Extent of pancreatic necrosis cannot be assessed on a noncontrast examination. Recapper: GUILLE Transcribe Date/Time: Jul 05 2021 7:12P Dictated by : SPIKE FUNES MD This examination was interpreted and the report reviewed and electronically signed by: SPIKE FUNES MD on Jul 05 2021 7:23PM EST [id number] Normal [facility] Comp Metabolic Panelon 07-05 Albumin [Mass/Vol] 5.0 g/dL High 3.9-4.9 [facility] Comment on above: Performed By: #### C BCDIF ####[address] [phone] ALP [Catalytic activity/Vol] 77 U/L Normal 38-113 [facility] Comment on above: Performed By: #### C BCDIF ####[address] [phone] ALT [Catalytic activity/Vol] 34 U/L Normal 10-54 [facility] Comment on above: Performed By: #### C BCDIF ####[address] [phone] Anion gap [Moles/Vol] 23 mmol/L High 9-18 [facility] Comment on above: Performed By: #### C BCDIF ####[address] [phone] AST [Catalytic activity/Vol] 69 U/L High 14-40 [facility] Comment on above: Performed By: #### C BCDIF ####[address] [phone] Bilirubin [Mass/Vol] 5.3 mg/dL High 0.2-1.3 [facility] Comment on above: Performed By: #### C BCDIF ####[address] [phone] Calcium [Mass/Vol] 9.5 mg/dL Normal 8.5-10.2 [facility] Comment on above: Performed By: #### C BCDIF ####[address] [phone] Chloride [Moles/Vol] 92 mmol/L Low 97-105 [facility] Comment on above: Performed By: #### C BCDIF ####[facility] [place], [place] [phone] CO2 [Moles/Vol] 15 mmol/L Low 22-30 [facility] Comment on above: Performed By: #### C BCDIF ####[facility] [place], [place] [phone] Creatinine [Mass/Vol] 2.53 mg/dL High 0.73-1.22 [facility] Comment on above: Performed By: #### C BCDIF ####[place] [address] [place], [place] [phone] eGFR- Amer. 35 Normal [facility] Comment on above: Performed By: #### C BCDIF ####[address] [phone] eGFR-All Other Races 29 . Normal [facility] [...] at [email or web address]. Performed By: #### C BCDIF ####[address] [phone] Glucose [Mass/Vol] 167 mg/dL High 74-99 [facility] Comment on above: Result Comment: The [place] Diabetes Association (ADA) provides guidance for cutoff [...] Standards of Medical Care in Diabetes 2016, [place] Diabetes Association. Diabetes Care. 2016.39(Suppl 1). Performed By: #### C BCDIF ####[address] [phone] Potassium [Moles/Vol] 5.5 mmol/L High 3.7-5.1 [facility] Comment on above: Performed By: #### C BCDIF ####[address] [phone] Protein [Mass/Vol] 7.6 g/dL Normal 6.3-8.0 [facility] Comment on above: Performed By: #### C BCDIF ####[address] [phone] Sodium [Moles/Vol] 130 mmol/L Low 136-144 [facility] Comment on above: Performed By: #### C BCDIF ####[address] [phone] Urea nitrogen [Mass/Vol] 20 mg/dL Normal 9-24 [facility] Comment on above: Performed By: #### C BCDIF ####[address] [phone] ED NOTEon 07-05-2021 ED NOTE HNO ID: [id number] Author: Max Styles RN Service: ? Author [...] up, bed in locked and low position [facility] ED PROV NOTEon 07-05-2021 ED PROV NOTE HNO ID: [id number] Author: Will Mccormick DO Service: Emergency Medicine [...] Noteon 07-05-2021 ED Triage Note HNO ID: [id number] Author: Brian Ash I, PA-C Service: Emergency Medicine Author Type: Physician Instrument Maker Type: ED Triage Notes Filed: 07/05/2021 6:11 [...] RUQ US SIGNATURE: Brian Ash PA-C Normal [facility] Ethanolon 07-05-2021 Ethanol [Mass/Vol] mg/dL Normal <11 [facility] Comment on above: Result Comment: Valu es > 80 mg/dL may indicate intoxication HISTORY PHYSICALon HISTORY PHYSICAL HNO ID: [id number] Author: Lisseth Raymond APRN.CNP Service: Hospital Medicine Author Type: Nurse Practitioner Type: HANDP Filed: 07/05/2021 9:37 PM Note Text: DEPARTMENT OF HOSPITAL MEDICINE HISTORY AND PHYSICAL EXAM SERVICE DATE: 07/05/2021 Code Status: Not on file SERVICE TIME: 9:27 PM Primary Care Physician: Luis Abdalla, DO NIGHT AND WEEKEND COVERAGE: [employer] COVERAGE: Days: [phone], please contact via [employer] Nights: [phone], please page CC Hospitalist Night coverage pager [phone] Subjective CHIEF COMPLAINT: Epigastric pain going through [...] on above: Performed By: #### C BCDIF ####[facility] [place], [place] [phone] Magnesiumon 07-05-2021 Magnesium [Mass/Vol] 0.8 mg/dL Low 1.7-2.3 [facility] Comment on above: Result Comment: No c all per procedure. 07/05/21 1847 Performed By: #### C BCDIF ####[address] [phone] Protimeon 07-05-2021 PT INR 1.3 Normal 0.9-1.3 [facility] Comment on above: Result Comment: Aster min K Antagonist (VKA) Therapeutic Range: INR 2 to 3 (Target INR of 2.5) Note: For patients treated with VKA drugs, such as warfarin, the [place] College [employer] 2012 Guideline recommends [...] [facility] 02-25-2021 L --- Specimen: [id number] Received: 02/25/21 Status: LU Wayne Num: [id number] Spec Type: Surgical Subm Dr: Josiah Pompa MD Tissues: A Disc - Intervertebral/Lumbar/C ervical (CERVICAL) Procedures: HE Stain, Gross/Micro L3 Patient Age/Sex Location Account Attending Physician Chuckie Villalta 35/M [place] [id number] Josiah Pompa MD SPEC NUM: [id number] RECD: 02/25/21 STATUS: LU WAYNE NUM: [id number] VJ: 02/25/21 [facility] [address]: Josiah Pompa MD ENTERED: 02/25/[address] [facility] [address]: LOUIE TYPE: Surgical DEPT: [...] of montanez-pink, rubbery and ragged fibrous tissue. Laborer Rags sections are submitted in one cassette labeled A1. (SM/YJ) Microscopic Description One glass slide with H E stained material has been examined. The microscopic findings support the above pathologic diagnosis. CPT Codes 22526 Specimen: [id number] Received: 02/25/21 Status: LU [place] Num: [id number] Spec Type: Surgical Subm Dr: Josiah Pompa MD Tissues: A Disc - Intervertebral/Lumbar/C ervical (CERVICAL) Procedures: HE Stain, Gross/Micro L3 Patient: Chuckie Villalta [id number] (Continued) Signed (signature on file) Lucretia Lund MD 02/26/21 1655 Normal [facility] XR cervical spine 1Von 02-25 XR cervical spine 1V [place] [address] XRay Report Signed Patient: Chuckie Villalta MR#: [id number] 56 : 1985 Acct:[id number] Age/Sex: 35 / M ADM Date: 02/25/21 Loc: Room: [address] [place] [address] Type: REG [facility] Dr: Josiah Pompa MD Ordering Provider: [...] Carlos Solano M.D.02/25/2021 4:31 PM Dictation Location: [place] [address] Transcribed By: [facility] 02/25/21 163 Dictated By: Carlos Solano II, MD 02/25/21 1630 Signed By: 02/25/21 163 Normal [facility] Basic Metabolic Panelon 01-25 Calcium [Mass/Vol] 9.3 mg/dL Normal 8.2-10.2 [facility] Comment on above: Result Comment: PERF ORMED BY: [place] [address] PATHOLOGIST HEART SURGEON ALFRED TRACY M.D. Performed By: #### B MP, CBC #### [facility] [address] [place] [address] Chloride [Moles/Vol] 99 mmol/L Normal 95-114 [facility] Comment on above: Performed By: #### B MP, CBC #### [address] CO2 [Moles/Vol] 20.5 mmol/L Low 22.0-30.0 [facility] Comment on above: Performed By: #### B MP, CBC #### [facility] [address] [place] [address] [place] Creatinine [Mass/Vol] 1.31 mg/dL High 0.64-1.27 [facility] Comment on above: Performed By: #### B MP, CBC #### [facility] [address] [place] [address] [place] Estimated GFR ( Marissa > 60 Normal [facility] Comment on above: Result Comment: GFR estimated reference range: According to KDOQI guidelines, <60 ml/min/1.73m2 is sufficient to diagnose a patient with chronic kidney disease. Performed By: #### B MP, CBC #### [facility] [address] Estimated GFR (Non- Am > 60 Normal [facility] Comment on above: Performed By: #### B MP, CBC #### [facility] [address] Glucose [Mass/Vol] 105 mg/dL High 70-100 [facility] Comment on above: Result Comment: [place] Glucose Reference Range is dependent on time and content of last meal. Glucose of more than 200 mg/dL in a nonstressed, ambulatory subject supports the diagnosis of Diabetes Mellitus. ADA recommended reference range Performed By: #### B MP, CBC #### [facility] [address] Potassium [Moles/Vol] 4.4 mmol/L Normal 3.5-5.1 [facility] Comment on above: Performed By: #### B MP, CBC #### [facility] [address] Sodium [Moles/Vol] 133 mmol/L Low 136-146 [facility] Comment on above: Performed By: #### B MP, CBC #### [address] Urea nitrogen [Mass/Vol] 11 mg/dL Normal 9-23 [facility] Comment on above: Performed By: #### B MP, CBC #### [address] [facility] SARS-CoV-2 (COVID-19) RNA NOLBERTO+probe Ql (Unsp spec) Negative Normal Negative [facility] Comment on above: Order Comment: Healt hcare Worker?: N Result Comment: Testing for SARS-CoV-2 by RT-PCR This test was developed and its performance characteristics determined by [employer]) and validated at the [facility]. This test has not been [...] is terminated or revoked sooner. PERFORMED BY: [place] [address] PATHOLOGIST HEART SURGEON ALFRED TRACY M.D. Performed By: #### C OVID 19 [facility] #### [address] Complete Blood Count Auto Di ffon 02-21-2021 Basophils (Bld) [#/Vol] 0.0 10*3/uL Normal 0.0-0.2 [facility] Comment on above: Result Comment: PERF ORMED BY: [place] [address] PATHOLOGIST HEART SURGEON ALFRED TRACY M.D. Performed By: #### B MP, CBC #### [address] Basophils/100 WBC (Bld) 0.5 % Normal . [facility] Comment on above: Performed By: #### B MP, CBC #### [address] Eosinophils (Bld) [#/Vol] 0.1 10*3/uL Normal 0.0-0.45 [facility] Comment on above: Performed By: #### B MP, CBC #### [address] Eosinophils/100 WBC (Bld) 1.2 % Normal . [facility] Comment on above: Performed By: #### B MP, CBC #### [address] [place] [address] [place] Erythrocyte distribution width (RBC) [Ratio] 14.0 % Normal 12.0-14.8 [facility] Comment on above: Performed By: #### B MP, CBC #### [address] Hematocrit (Bld) [Volume fraction] 39.2 % Normal 38.8-50.0 [facility] Comment on above: Performed By: #### B MP, CBC #### [address] Hemoglobin (Bld) [Mass/Vol] 13.9 g/dL Normal 13.0-17.0 [facility] Comment on above: Performed By: #### B MP, CBC #### [address] Lymphocytes (Bld) [#/Vol] 1.0 10*3/uL Normal 1.00-4.8 [facility] Comment on above: Performed By: #### B MP, CBC #### [address] Lymphocytes/100 WBC (Bld) 9.5 % Normal . [facility] Comment on above: Performed By: #### B MP, CBC #### [address] MCH (RBC) [Entitic mass] 32.1 pg Normal 27.5-35.2 [facility] Comment on above: Performed By: #### B MP, CBC #### [address] MCV (RBC) [Entitic vol] 90.4 fL Normal 83.5-101 [facility] Comment on above: Performed By: #### B MP, CBC #### [address] Mean Corpuscular HGB Conc 35.5 g/dL Normal 32.5-35.6 [facility] Comment on above: Performed By: #### B MP, CBC #### [address] Monocytes (Bld) [#/Vol] 0.6 10*3/uL Normal 0.0-0.8 [facility] Comment on above: Performed By: #### B MP, CBC #### [facility] [address] Monocytes/100 WBC (Bld) 6.0 % Normal . [facility] Comment on above: Performed By: #### B MP, CBC #### [facility] [address] Neutrophils (Bld) [#/Vol] 8.8 10*3/uL High 1.8-7.7 [facility] Comment on above: Performed By: #### B MP, CBC #### [address] Neutrophils/100 WBC (Bld) 82.8 % Normal . [facility] Comment on above: Performed By: #### B MP, CBC #### [address] Nucleated RBC/100 WBC (Bld) [Ratio] 0.0 % Normal 0-0.5 [facility] Comment on above: Performed By: #### B MP, CBC #### [address] Platelet mean volume (Bld) [Entitic vol] 8.4 fL Normal 6.6-10.1 [facility] Comment on above: Performed By: #### B MP, CBC #### [facility] [address] [place] [address] [place] Platelets (Bld) [#/Vol] 205 10*3/uL Normal 150-450 [facility] Comment on above: Performed By: #### B MP, CBC #### [place] [address] [place] RBC (Bld) [#/Vol] 4.34 10*6/uL Normal 3.90-5.60 [facility] Comment on above: Performed By: #### B MP, CBC #### [place] [id number] [place] WBC (Bld) [#/Vol] 10.6 10*3/uL Normal 4.5-11.0 [facility] Comment on above: Performed By: #### B MP, CBC #### [address] ECG 12 lead ECGon 02-18-2021 ECG 12 lead ECG [facility] [place] [address] [place] [address] Electrocardiograph Report Signed Patient: Chuckie Villalta MR#: [id number] 56 : 1985 Acct:[id number] Age/Sex: 35 / M ADM Date: 02/18/21 Loc: Room: Type: [facility] Attending Dr: Josiah Pompa MD Ordering Provider: [...] DO 02/18/21 1413 Signed By: 02/18/21 1610 [facility] MRI CSPINE WO CONon 12-07-19 [...] by: ANGIE MCDANIEL Date: 2020-12-06 12:00 Normal [facility] Vital Signs Date Time Vital Sign Value Performing Clinician Facility 02-17-2025 10:10-0400 Body height 185.42 cm [employer] Work Phone: [facility] 02-17-2025 10:10-0400 Body mass index (BMI) [Ratio] 32.8 kg/m2 [employer] Work Phone: [facility] 02-17-2025 10:10-0400 Body weight 112.94 kg [employer] Work Phone: [facility] 02-17-2025 10:10-0400 Diastolic blood pressure 80 mm[Hg] [employer] Work Phone: [facility] 02-17-2025 10:10-0400 Heart rate 85 /min [employer] Work Phone: [facility] 02-17-2025 10:10-0400 Respiratory rate 12 /min Luis Ball DO Work Phone: [facility] 02-17-2025 10:10-0400 Systolic blood pressure 110 mm[Hg] Luis Ball DO Work Phone: [facility] 09-02-2024 14:12-0500 Body height 185.42 cm [facility] 09-02-2024 14:12-0500 Body mass index (BMI) [Ratio] 31.8 kg/m2 [facility] 09-02-2024 14:12-0500 Body weight 109.42 kg [facility] 09-02-2024 14:12-0500 Diastolic blood pressure 72 mm[Hg] [facility] 09-02-2024 14:12-0500 Heart rate 97 /min [facility] 09-02-2024 14:12-0500 Respiratory rate 12 /min [facility] 09-02-2024 14:12-0500 Systolic blood pressure 95 mm[Hg] [facility] 02-29-2024 13:25-0400 Body height 185.42 cm [facility] 02-29-2024 13:25-0400 Body mass index (BMI) [Ratio] 29 kg/m2 [facility] 02-29-2024 13:25-0400 Body weight 99.79 kg [facility] 02-29-2024 13:25-0400 Diastolic blood pressure 91 mm[Hg] [facility] 02-29-2024 13:25-0400 Heart rate 111 /min [facility] 02-29-2024 13:25-0400 Respiratory rate 12 /min [facility] 02-29-2024 13:25-0400 Systolic blood pressure 161 mm[Hg] [facility] 06-20-2023 16:12-0500 Body temperature 96.98 [degF] [facility] 06-20-2023 16:12-0500 Diastolic blood pressure 85 mm[Hg] [facility] 11-25-2023 16:12-0500 Heart rate 114 /min [facility] 06-20-2023 16:12-0500 Respiratory rate 18 /min [facility] 06-20-2023 16:12-0500 SaO2% (BldA) [Mass fraction] 100 % [facility] 06-20-2023 16:12-0500 Systolic blood pressure 160 mm[Hg] [facility] 06-11-2023 10:00-0500 Body height 185.42 cm Luis Ball Other [facility] [employer] Other 06-11-2023 10:00-0500 Body mass index (BMI) [Ratio] 29.66 kg/m2 Luis Ball Other [facility] [employer] Other 06-11-2023 10:00-0500 Body weight 101.97 kg Luis Ball Other [employer] [facility] [employer] Other 06-11-2023 10:00-0500 Diastolic blood pressure 97 mm[Hg] Luis Ball Other [employer] Other 06-11-2023 10:00-0500 Respiratory rate 12 /min Luis Ball Other [place] [employer] Other 06-11-2023 10:00-0500 Systolic blood pressure 141 mm[Hg] Luis Ball Other [employer] Other 03-05-2023 09:45-0400 Body height 185.42 cm Luis Ball Other [employer] Other 03-05-2023 09:45-0400 Body mass index (BMI) [Ratio] 29.6 kg/m2 Luis Ball Other [employer] Other 03-05-2023 09:45-0400 Body weight 101.79 kg Luis Ball Other [employer] Other 03-05-2023 09:45-0400 Diastolic blood pressure 109 mm[Hg] Luis Ball Other [employer] Other 03-05-2023 09:45-0400 Systolic blood pressure 153 mm[Hg] Luis Ball Other [employer] Other 09-12-2022 10:30-0500 Body height 185.42 cm Luis Ball Other [employer] Other 09-12-2022 10:30-0500 Body mass index (BMI) [Ratio] 29.95 kg/m2 Luis Ball Other [employer] Other 09-12-2022 10:30-0500 Body weight 102.97 kg Luis Ball Other [employer] Other 09-12-2022 10:30-0500 Diastolic blood pressure 86 mm[Hg] Luis Ball Other [employer] Other 09-12-2022 10:30-0500 Respiratory rate 12 /min Luis Ball Other [employer] Other 09-12-2022 10:30-0500 Systolic blood pressure 132 mm[Hg] Luis Ball Other [employer] Other Encounters Encounter Date Encounter Type Care Provider Facility Start: 05-01-2025 End: 05-01-2025 ambulatory Vicente Thompson MD Facility:[facility] Start: 03-09-2025 End: 03-09-2025 ambulatory NICKOLAS MCCALLUM Facility:[facility] Start: 02-17-2025 End: 02-17-2025 ambulatory Luis Ball DO Work Phone: [facility] Work Phone: Start: 02-17-2025 End: 02-17-2025 Patient encounter procedure Luis Abdalla [facility] Work Phone: Start: 01-26-2025 End: 01-26-2025 Emergency department patient visit Ralf Carbajal [facility] Start: 01-06-2025 End: 04-12-2025 ambulatory LUIS ABDALLA [facility] Start: 11-21-2024 End: 11-21-2024 ambulatory Vicente Thompson MD Facility:[facility] Start: 11-14-2024 End: 11-14-2024 ambulatory Vicente Thompson MD Facility:[facility] Start: 09-02-2024 End: 09-02-2024 ambulatory [facility] Work Phone: Start: 09-02-2024 End: 09-02-2024 Encounter for general adult medical examination without abnormal findings [facility] Start: 09-02-2024 End: 09-02-2024 Patient encounter procedure [facility] Phys[facility] Work Phone: Start: 09-01-2024 Patient encounter status [facility] Start: 08-23-2024 Non-patient / Non-visit [facility] Work Phone: Start: 08-20-2024 Non-patient / Non-visit [facility] Physician [facility] [employer] Work Phone: Start: 07-04-2024 End: 07-04-2024 ambulatory Vicente Thompson MD Facility:[facility] Start: 02-29-2024 End: 02-29-2024 ambulatory [facility] Work Phone: Start: 02-29-2024 End: 02-29-2024 Patient encounter procedure [facility] Work Phone: Start: 06-20-2023 End: 06-20-2023 Emergency department patient visit Wilmer Rosenberg [facility] Start: 06-11-2023 End: 06-11-2023 ambulatory Luis Abdalla Other [employer] Other Start: 06-11-2023 Encounter for genera l adult medical examination without abnormal findings Luis Abdalla [facility] Start: 06-11-2023 Periodic preventive med est patient 18-39 yrs Luis Abdalla [facility] Start: 03-05-2023 End: 03-05-2023 ambulatory Luis Abdalla Other [employer] Other Start: 03-05-2023 Office outpatient vi sit 15 minutes Luis Abdalla [facility] Start: 09-22-2022 Telephone encounter 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 RNfire control technician b Comment on above: Care Coordination ([facility] clinic) Start: 09-12-2022 End: 09-12-2022 ambulatory Luis Abdalla Other [employer] Other Start: 09-12-2022 Office outpatient vi sit 25 minutes Lusi Abdalla [facility] Start: 09-04-2022 Orders Only Betina Barr MD Work Phone: Gastroenterology Comment on above: Liver transplant rec ipient (HCC) (Primary Dx) Endoscopy Call Start: 07-22-2022 ambulatory Nadja Spencer RN [facility] Comment on above: hol obs erved July 28 Start: 07-22-2022 E-mail encounter fro m caregiver Nadja Spencer RN [facility] Start: 05-01-2022 Refill Tuyet Rivera PA-C Work Phone: [id number] Comment on above: Refill Request Start: 03-24-2022 Telephone encounter [facility] Comment on above: Reminder To Have Lab s Drawn Start: 03-11-2022 Telephone encounter [facility] Comment on above: Covid19 Concern Start: 02-25-2022 End: 02-25-2022 ambulatory LUIS ABDALLA Facility:[facility] Start: 02-25-2022 End: 02-25-2022 Patient encounter procedure [...] with patient Aidan Larios MD Work Phone: [facility] Start: 11-08-2021 Telephone encounter Nadja Gutierrez [...] profile DTAP,TDAP,TD (2 - Td or Tdap) [facility] Start: 07-07-2027 LIPID SCREEN LIPID SCREEN [facility] Start: 07-16-2026 LIPID SCREEN LIPID SCREEN [facility] Start: 01-15-2024 PNEUMOCOCCAL (3 - PP SV23 if available, else PCV20) PNEUMOCOCCAL (3 - PPSV23 if available, else PCV20) [facility] Start: 01-15-2024 PNEUMOCOCCAL (3 - PP SV23 or PCV20) PNEUMOCOCCAL (3 - PPSV23 or PCV20) [facility] Start: 10-05-2023 TWO PNEUMOVAX 5 YEAR S APART PRIOR TO AGE 65 (#2) TWO PNEUMOVAX 5 YEARS APART PRIOR TO AGE 65 (#2) [facility] Start: 02-24-2023 Adult depression screening assessment DEPRESSION SCREENING [facility] Start: 12-02-2022 End: 09-04-2023 ERCP ERCP Endoscopy Routine Biliary stricture Expected: 12/02/2022, Expires: 09/04/2023 [facility] Work Phone: Comment on above: Expected: 12/02/2022 , Expires: 09/04/2023 Start: 07-27-2022 DEPRESSION ASSESSMENT DEPRESSION ASS ESSMENT [facility] Start: 03-27-[address] [facility] Start: 12-30-2021 End: 03-01-2022 Amylase [Enzymatic activity/volume] in Serum or Plasma AMYLASE BLD Lab Routine Expected: 12/30/2021, Expires: 03/01/2022 [facility] Work Phone: Comment on above: Expected: 12/30/2021 , Expires: 03/01/2022 Start: 12-30-2021 End: 03-01-2022 Lipase [Enzymatic activity/volume] in Serum or Plasma LIPASE BLD Lab Routine Expected: 12/30/2021, Expires: 03/01/2022 [facility] Work Phone: Comment on above: Expected: 12/30/2021 , Expires: 03/01/2022 Start: 12-24-2021 End: 01-09-2023 Ct abdomen w/contrast material CT ABDOMEN W IVCON Radiology Routine Expected: 12/24/2021 (Approximate), Expires: 01/09/2023 [facility] Work Phone: Comment on above: Expected: 12/24/2021 (Approximate), Expires: 01/09/2023 Start: 07-27-2021 DEPRESSION ASSESSMENT DEPRESSION ASS ESSMENT [facility] Start: 07-10-2020 Adult depression screening assessment DEPRESSION SCREENING [facility] Start: 07-07-2020 MENINGOCOCCAL B: Consider based on risk (3 of 4 - Increased Risk Bexsero 2-dose series) MENINGOCOCCAL B: Consider based on risk (3 of 4 - Increased Risk Bexsero 2-dose series) [facility] Start: 03-11-2019 MENINGOCOCCAL CONJUG ATE (2 - Risk 2-dose series) MENINGOCOCCAL CONJUGATE (2 - Risk 2-dose series) [facility] Start: 2004 SHINGRIX VACCINE (1 of 2) SHINGRIX VACCINE (1 of 2) [facility] Start: 11-01-2003 ANNUAL PCP TEAM VALET PARKER BRANDON DISEASE VISIT ANNUAL PCP TEAM CHRONIC DISEASE VISIT [facility] Start: 11-01-2003 BP CONTROLLED (<130/80) BP CONTROLLE D (<130/80) [facility] Start: 1997 COVID-19 VACCINE (1) COVID-19 VACCIN E (1) [facility] Start: 1990 COVID-19 VACCINE (#1) COVID-19 VACCI NE (#1) [facility] Start: 05-02-1986 COVID-19 VACCINE (#1) COVID-19 VACCI NE (#1) [facility] Immunizations Immunization Date Immunization Notes Care Provider Fa cility 04-18-2020 influenza virus vacc ine, split virus (incl. purified surface antigen) Luis Abdalla Other [facility] Other 04-18-2020 influenza virus vacc ine, unspecified formulation [facility] 07-07-2019 meningococcal B vacc ine, recombinant, OMV, adjuvanted Nadja Spencer RN [facility] 05-20-2019 hepatitis A and hepatitis B vaccine Nadja Spencer RN [facility] 05-20-2019 influenza, injectabl e, quadrivalent, contains preservative Nadja Spencer RN [facility] 01-14-2019 haemophilus influenz ae type b vaccine, PRP-OMP conjugate Nadja Spencer RN [facility] 01-14-2019 meningococcal B vacc ine, recombinant, OMV, adjuvanted Nadja Spencer RN [facility] 01-14-2019 meningococcal oligosaccharide (groups A, C, Y and W-135) diphtheria toxoid conjugate vaccine (MCV4O) Nadja Spencer RN [facility] 01-14-2019 pneumococcal conjuga te vaccine, 13 valent Nadja Spencer RN [facility] 10-04-2018 hepatitis A and hepatitis B vaccine Nadja Spencer RN [facility] 10-04-2018 pneumococcal polysaccharide vaccine, 23 valent Nadja Spencer RN [facility] 07-01-2018 hepatitis A and hepatitis B vaccine Nadja Spencer RN [facility] 07-01-2018 influenza, injectabl e, quadrivalent, contains preservative Nadja Spencer RN [facility] 07-01-2018 pneumococcal conjuga te vaccine, 13 valent Nadja Spencer RN [facility] 07-01-2018 tetanus toxoid, redu simon diphtheria toxoid, and acellular pertussis vaccine, adsorbed Nadja Spencer RN [facility] 04-30-2009 hepatitis B vaccine, adult dosage Nadja Spencer RN [facility] Payers Date Payer Category Payer Medicaid [place] [id number] 2021-Present [phone] [address] [place] [address] Medicaid [id number] 2021 Medicaid [id number] 2021 Medicare MEDICARE MEDICAR E A AND B [id number] 2021-Present [phone] [place] [address] Medicare [id number] 2021 Medicare [id number] 2021 Medicaid [id number] 2021 Medicare [id number] 2020 Medicaid [facility] MEDICAID [facility] MEDICAID [id number] 2020-Present [phone] [address] [place] [address] Medicaid [id number] 1985 Unknown [id number] 1985 Unknown [id number] 1985 Unknown [id number] 1985 Unknown [id number] 1985 Unknown [id number] 1985 Unknown [id number] 1985 Unknown [id number] 1959 Unknown [id number] Self-pay Self Pay [id number] Social History Date Type Detail Facility Start: 05-04-2018 End: 02-29-2024 Tobacco smoking status NHIS Never smoked tobacco [facility] Start: 05-04-2018 Tobacco use and exposure Former smokeless tobacco user [facility] Start: 09-17-2021 End: 09-04-2022 Alcohol intake Current drinker of alcohol (finding) [facility] Start: 07-05-2021 History SDOH Alcohol Comment occasionally [facility] Start: 1985 Sex Assigned At Not on file [facility] Start: 10-20-2021 End: 2021 Exposure to SARS-CoV-2 (event) Not sure [facility] Sex Assigned At [facility] Tobacco smoking status [facility] Start: 1985 Sex Assigned At Male F [facility] Start: 11-07-2009 End: 09-02-2024 Sex Male (finding) [facility] Medical Equipment Procedure Code Equipment Code Equipment Origin al Text Equipment Identifier Dates Stent Axios 15mm 24mm 138mm 10.8fr Nitinol Silicone 10mm 146mm Pancreatic - [id number] Start: 11-01-2021 Stent 10fr Duode nal Bend Plastic 12cm Biliary Temporary Rapid Exchange - [id number] permanente [facility] Start: 09-04-2022 Spinal fixation plate, non-bioabsorbable ()[id number] FDA Start: 02-25-2021 Spinal fixation plate, non-bioabsorbable ()[id number] FDA Start: 02-25-2021 Intervertebral-b josesito internal spinal fixation system ()[id number] FDA Start: 02-25-2021 Intervertebral-b josesito internal spinal fixation system ()[id number] FDA Start: 02-25-2021 Functional Status Date Assessment Result Facility 06-20-2023 Functional Status N/A [facility] Clinical Notes 07-25-2019 to 01-26-2025 Note Date & Type Note Facility 01-26-2025 Evaluation + Plan note Extrac edwardo from: Title:ED Note Author:Reynaldo Lopez PA-C te:01/26/25 Back pain (M54.9: Dorsalgia, unspecified) Orders: predniSONE, 60 mg = 3 tab(s), Oral, Daily, X 7 day(s), # 21 tab(s), Refills(s) 0, Pharmacy: [id number], 113.4, cm, 01/26/25 11:00:00 EDT, Height/Length Dosing, 185.4, kg, 01/26/25 11:00:00 EDT, Weight Dosing XR Spine Lumbosacral 2 or 3 Views Future Appointments Appointment Date:01/31/2025 09:30:00 AM Scheduled Provider: Location:.[facility] Appointment Type:PT 45 (FT) Appointment Date:02/01/2025 09:30:00 AM Scheduled Provider: Location:.[facility] Appointment Type:PT 45 (FT) Appointment Date:02/03/2025 09:00:00 AM Scheduled Provider: Location:[facility] Appointment Type:PT Re-Eval 45 (FT) [facility] 07-03-2025 Hospital Discharge instructions Patient Education [...] home: Managing pain, stiffness, and swelling Take vpno-ezt-scpijxq and prescription medicines only as told by [...] each day. Do not sit, drive, or tech intern one place for more than 30 minutes [...] put less stress on your back. Take tbfr-cjg-zkhmcgq and prescription medicines only as told by your health care provider, and apply heat or ice as told. This information is not intended to replace advice given to you by your health care provider. Make sure you discuss any questions you have with your health care provider. Document Revised: 10/04/2021 Document Reviewed: 10/04/2021 [employer] Patient Education 2023 [employer]. Follow Up Care 01/26/2025 10:51:38 With:LUIS ABDALLA Address: [address] [place] [address] [place] [address]- Business (1) When:01/29/2025 11:34:25 [facility] 07-03-2025 NoteED Patient Education Note Orthopedics [...] Managing pain, stiffness, and swelling ??? Take vpyh-bve-bjgnriv and prescription medicines only as told by [...] day. ??? Do not sit, drive, or tech intern one place for more than 30 minutes [...] control problems. ??? Y (more content not included)...[facility]11-25-2023 Hospital Discharge instructions Patient Education 06/20/2023 18:04:25 [...] or saurabh your foot. General instructions Take sslm-kai-jrfkpyr and prescription medicines only as told by [...] provider. Document Revised: 11/02/2020 Document Reviewed: 11/02/2020 [employer] Patient Education 2022 [employer] 06/20/2023 18:04:25 Elastic Bandage and RICE Therapy [...] limityour activities and whether you should start qoygx-ku-emusrn exercises for your injury. Ice Ice your [...] provider. Document Revised: 09/07/2020 Document Reviewed: 04/02/2018 [employer] Patient Education 2020 [employer]. 06/20/2023 18:04:25 Ankle Sprain, Phase II Rehab [...] by your health care provider. Stretching and qwnyj-ho-kyrqod exercises These exercises warm up your muscles [...] provider. Document Revised: 09/05/2021 Document Reviewed: 09/05/2021 [employer] Patient Education 2022 [employer] 06/20/2023 18:04:25 Ankle Sprain, Phase I [...] told by your healthcare provider. Stretching and hrumj-lc-oiyzjm exercises These exercises warm up your muscles [...] provider. Document Revised: 09/05/2021 Document Reviewed: 09/05/2021 [employer] Patient Education 2022 [employer] 06/20/2023 18:04:25 Ankle Sprain Ankle Sprain [...] andblue. Managing pain, stiffness, and swelling Take ekwd-rpw-hmrlipl and prescription medicines only as told by [...] provider. Document Revised: 09/05/2021 Document Reviewed: 09/05/2021 [employer] Patient Education 2022 [employer]. Follow Up Care 06/20/2023 15:55:18 With:LUIS ABDALLA Address: [address], [place] [address]- Business (1) When:06/23/2023 17:48:00 Comments:Follow-up with your primary care provider in 3 to 5 days. If symptoms worsen, do not improve, or new symptoms arise please report back to emergency department for further evaluation. [facility]11-25-2023 Evaluation + Plan noteExtracted from: Title:ED Note Author:Dilan Adames PA-C te:06/20/23 Left ankle sprain (S93.402A: Sprain of unspecified ligament of left ankle, initial encounter) Sprain of left foot (S93.602A: Unspecified sprain of left foot, initial encounter) Orders: [employer] [facility]11-16-2023 Evaluation note* Encounter Date Diagnosis Assessment [...] CBD obstruction May, Nausea (ICD-10 - R11.0) [facility] Other 08-10-2023 Evaluation note* Encounter Date Diagnosis [...] < 140/90 and HR less than 90 [facility] Other 02-27-2023 Miscellaneous Notes* Telephone Encounter - 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 RN - 09/22/2022 11:30 AM EST Called and left patient regarding referral to [facility] clinic. Call back number provided. [employer] message with the details also sent. 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 RN September 22, 2022 11:32 AM [facility] note* Encounter Date Diagnosis Assessment [...] recipient (ICD-10 - Z94.4) No s/s rejection [facility] Other 02-09-2023 Miscellaneous Notes* Telephone Encounter - Betina Barr MD - 09/04/2022 2:03 PM EST Stent change with bruna [facility] Miscellaneous Notes* Telephone Encounter - Nadja [...] Thank you, Lorena Adames RPh [facility] [phone] documented in [facility]Way[facility]08-29-2022 Miscellaneous Notes* Telephone Encounter - Nadja Spencer RN - 03/24/2022 1:17 PM EDT I sent patient a reminder to have lab work drawn as soon as possible as he has not had labs drawn in some time. Encouraged him to reach out with questions. Nadja Spencer (Cassie) RN, BSN Liver Exercise Physiologist Certified documented in [facility] encounterWay[facility]08-16-2022 Miscellaneous Notes* Telephone Encounter - Nadja [...] to. Nadja Spencer RN (Cassie), BSN Liver Exercise Physiologist Certified documented in [facility] encounterWay[facility]08-02-2022 NoteHNO ID: [id number] Author: SHAQ Chua Service: ? Author Type: [place] Type: Progress Notes Filed: 02/25/2022 10:46 AM Note Text: [facility] Assessment Visit Type:Virtual Visit utilizing two-way audio and video for at least a portion of the visit IDENTIFYING INFORMATION: [phone] [email or web address] Lives with of nine years, Екатерина and one daughter age five Duration of Interview: start time 9:15 and end time 10:30 pm REFERRAL SOURCE: SHAQ Jiames liver transplant team BENEFITS: Payor: MEDICARE / Plan: MEDICARE A AND B / Product Type: Medicare / INFORMED CONSENT: Patient completed evaluation via virtual MyChart encounter due to COVID-19. Patient verbally consented to virtual evaluation. Patient and this casualty underwriter present during interview. PRECIPITATING PROBLEM(S):Patient was [...] Age 16, every other weekend. Went to [employer] for [employer] drank heavily on weekends, then [...] from its effects? Yes (more content not included)...[id number] History of Present illness Narrative* SHAQ Chua - 02/25/2022 9:21 AM EDT [facility] Assessment Visit Type:Virtual Visit utilizing two-way audio and video for at least a portion of the visit IDENTIFYING INFORMATION: [phone] [email or web address] Lives with of nine years, Екатерина andone daughter age five Duration of Interview: start time 9:15 and end time 10:30 pm REFERRAL SOURCE: SHAQ Jaimes liver transplant team BENEFITS: Payor: MEDICARE / Plan: MEDICARE A AND B / Product Type: Medicare / INFORMED CONSENT: Patient completed evaluation via virtual MyChart encounter due to COVID-19. Patient verbally consented to virtual evaluation. Patient and this casualty underwriter present during interview. PRECIPITATING PROBLEM(S):Patient was dx with liver disease in 2018. [facility] [...] Age 16, every other weekend. Went to [employer] for college drank heavily on weekends, then [...] MEDICATIONS: none PRIOR CHEMICAL DEPENDENCY TREATMENTS: Yes: [facility] in 2019 TWELVE STEP HISTORY: -Longest [...] None FAMILY/DEVELOPMENTAL HISTORY: -Born/Raised in (City, State): [place], [place]. Grew up on a farm Biological [...] No EMPLOYMENT HISTORY: -Currently employed? 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 No - Are you in need of assistance to identify and explore career interests, aptitudes, and skills andto formulate immediate and entry tech vocational goals? No MARITAL HISTORY: Екатерина -Children: [...] camping, campfires SPIRITUAL ASSESSMENT: -Raised in this Methodist Background: Taoist Current Spiritual/Methodist Practices: yes -Belief in a Higher Power: [...] things - anyone or anything (e.g., family, gnosticism, pain of ) - that stopped you [...] suicide or other suicidal behavior. From The [place] [employer] Practice Guidelines for the Assessment [...] Expected: No--[facility] Presence of a plan or final arrangements: [...] meaningful daily activities: Yes Currently Employed: Yes [employer] affiliation (See spiritual assessment section above) Therapeutic Carbon: Does pt believe treatment can help his/her [...] the date of the service which included fmov-fl-[id number] patient care and completing clinical documentation. documented in this encounterWayne [facility]07-28-[facility]22 History of Present illness Narrative* SHAQ [...] not have a good experience. SW recommended [facility] IOP to patient and he is agreeable to trying this program. DEONDRE provided contact info and also emailed [facility] with this referral. Patient states he will also continue to go to his weekly home groupAA session every Thur at 8pm in [facility]. DEONDRE encouraged clt to reach out with any further questions or concerns. LAURA Jaimes Liver Transplant Social Work documented in this encounterWayne Hospital07-28-2022 History of Present illness Narrative* SHAQ Jaimes - 02/20/2022 10:05 AM EDT Patient scheduled for virtual follow up visit with DEONDRE today at 1pm. Patient left 2 messages via [employer] cancelling appointment due to time conflict. LAURA Jaimes Liver Transplant Social Work documented in this encounterWayne Hospital06-03-2022 History of Present illness Narrative* RT [...] December 27, 2021 1:20 PM * Carlos Muñzo RN - 12/27/2021 1:00 PM EDT Radiology [...] 2021 TIME: 12:54 PM documented in this encounterWayne Hospital05-23-2022 History of Present illness Narrative* Aidan [...] IS. I spent more than 20 minutes [id number] with the patient and over half the time was devoted to counseling and/or coordination of care. Aidan Larios MD documented in this encounterWayne Hospital04-15-2022 Miscellaneous Notes* Telephone Encounter - Nadja Spencer RN - 11/08/2021 3:18 PM EDT Patient returned my text and said that he will be unavailable on 11/12, as he and his family just arrived at [facility]. He will be available for virtual visit on 11/19. I notified scheduling. Nadja Spencer RN (Cassie), BSN Liver Exercise Physiologist Certified * Telephone Encounter - Nadja Spencer RN - 11/08/2021 2:23 PM EDT I called and LMOM and sent patient a text to follow up with him from [facility]. I let him know that I'd be setting him up for a follow up virtual visit with Dr. Larios. Encouraged him to call back with questions or as needed. Najda Spencer RN (Cassie), BSN Liver Exercise Physiologist Certified documented in this encounterWayne Hospital12-17-2021 NoteHNO ID: [id number] Author: Saba Hills MD Service: Hospital Medicine Author Type: Physician Type: Plan of Care Filed: 07/12/2021 9:21 AM Note Text: # Acute Pancreatitis- in setting of biliary stenosis. Resolved. Last amylase was 59 Per recommendation of GI we initially plan to transfer to [facility] for ERCP but that was [...] Vision MRI was negative Will discuss with patient assessment coordinator We will also consult ID ? Need to look for CMV retinitis Saba Hills MD ?[facility] HospitalKcinkguv39-20-0674 NoteHNO ID: [id number] Author: Maninder Aguilera DO Service: Hospital Medicine Author Type: Physician Type: Progress Notes Filed: 07/11/2021 10:58 AM Note Text: DEPARTMENT OF HOSPITAL MEDICINE PROGRESS NOTE SERVICE DATE: 07/11/2021 SERVICE TIME: 10:15 AM Hospital Medicine/Primary Attending: Maninder Aguilera DO NIGHT AND WEEKEND COVERAGE: MCGRATH COVERAGE: Days: [phone], please contact via [employer] Nights: [phone], please page CC Hospitalist Night coverage pager [phone] Subjective INTERVAL HPI: pt seen at bedside. [...] tablet (BACTRIM DS,SEPTRA DS) 1 tablet ORAL MO--FR - ursodiol 300 mg cap(s) (ACTIGALL) 300 [...] compression stockings (fl,oh) VTE Prophylaxis: VTE prophylaxis appropriate Disposition: Home Plan of care discussed with Provider, RN, Patient SIGNATURE: Maninder Aguilera DO PATIENT NAME: Chuckie Villalta DATE: July 11, 2021 TIME: 10:15 [facility]ighOqrzynyo52-54-5190 NoteHNO ID: [id number] Author: Saba Hills MD Service: Hospital Medicine Author Type: Physician Type: Progress Notes Filed: 07/11/2021 5:13 AM Note Text: HOSPITAL MEDICINE PROGRESS NOTE Saba Hills MD NIGHT AND WEEKEND COVERAGE: ERICK COVERAGE: Days: [phone], please contact via [employer] Nights: [phone], please page CC Hospitalist Night coverage pager [phone] Subjective HPI: Interval Events: has pain abdomen [...] sounds + EXTREMITY: : No ankle edema. PERFECT BINDER SETTER: grossly normal. No focal deficit. Lines, Drains, and Airways Line Peripheral 07/07/21 5643 Right Forearm 22 Gauge 2 days Reviewed [...] and GI GI is planning ERCP at [facility] as outpatient 2. History of [...] 7:30 AM and 4:30 PM Chuckie Villalta [id number] NoteHNO ID: [id number] Author: Jolynn Jaquez MD Service: Hospital Medicine Author Type: Physician Type: Progress Notes Filed: 07/09/2021 6:55 PM Note Text: HOSPITAL MEDICINE PROGRESS NOTE NIGHT AND WEEKEND COVERAGE: ERICK COVERAGE: Days: [phone], please contact via [employer] Nights: [phone], please page CC Hospitalist Night coverage pager [phone] Hospital Medicine/Primary Attending: Jolynn Jaquez MD Subjective [...] sounds + EXTREMITY: : No ankle edema. PERFECT BINDER SETTER: grossly normal. No focal deficit. Lines, Drains, [...] outpatient. Patient to be scheduled at [facility]. Consider starting heparin subq for prophylaxis tomorrow [...] showed no acute process. Discussed with Neuro telephone diaphragm assembler. Plan to follow up outpatient with Neuro, [...] Villalta DATE: July 09, 2021 TIME: 4:16 [facility] [id number] NoteHNO ID: [id number] Author: Tani Woodward MD, PhD Service: Neurology [...] Woodward MD, PhD July 09, 2021 3:20 [facility] [id number] NoteHNO ID: [id number] Author: Isa San RDMS, RVT Service: Radiology Author Type: Fitness Coach Type: Progress Notes Filed: 07/08/2021 12:04 PM [...] San RDMS, RVT July 08, 2021 12:03 [facility] [id number] NoteHNO ID: [id number] Author: Jolynn Jaquez MD Service: Hospital Medicine Author Type: Physician Type: Progress Notes Filed: 07/08/2021 11:56 AM Note Text: HOSPITAL MEDICINE PROGRESS NOTE NIGHT AND WEEKEND COVERAGE: ERICK COVERAGE: Days: [phone], please contact via [employer] Nights: [phone], please page CC Hospitalist Night coverage pager [phone] Hospital Medicine/Primary Attending: Jolynn Jaquez MD Subjective [...] tenderness in EXTREMITY: : No ankle edema. PERFECT BINDER SETTER: grossly normal. No focal deficit. Cranial nerves [...] Problems as of 07/08/2021 Noted - Resolved [facility] * (Principal) Acute pancreatitis 07/05/2021 - [...] is still waiting to be transferred to [facility]). Pain management consult. YOAN on CKD In [...] Villalta DATE: July 08, 2021 TIME: 11:30 [facility]ighTavcbcmc97-09-6137 NoteHNO ID: [id number] Author: Jolynn Jaquez MD Service: Hospital Medicine Author Type: Physician Type: Progress Notes Filed: 07/07/2021 3:10 PM Note Text: HOSPITAL MEDICINE PROGRESS NOTE NIGHT AND WEEKEND COVERAGE: ERICK COVERAGE: Days: [phone], please contact via [employer] Nights: [phone], please page CC Hospitalist Night coverage pager [phone] Hospital Medicine/Primary Attending: Jolynn Jaquez MD Subjective HPI: Interval Events: SHIP'S COOK and prn dilaudid helping with pain abdomen. [...] minimal palpation EXTREMITY: : No ankle edema PERFECT BINDER SETTER: grossly normal. No focal deficit. Lines, Drains, [...] input Patient waiting to be transferred to [facility]. Likely needs ERCP. Pain control with fentanyl SHIP'S COOK, dilaudid prn Close monitoring ? Hemochromatosis 03/18/2018 [...] to get update regarding bed availability at [facility]. No bed assigned at [facility] yet. SIGNATURE: Jolynn Jaquez MD PATIENT NAME: Chuckie Villalta DATE: July 07, 2021 TIME: 2:59 [facility] [id number] NoteHNO ID: [id number] Author: Roma Horan MD Service: Hospital Medicine Author Type: Physician Type: Progress Notes Filed: 07/06/2021 12:47 PM Note Text: DEPARTMENT OF HOSPITAL MEDICINE PROGRESS NOTE SERVICE DATE: 07/06/2021 SERVICE TIME: 12:43 PM Hospital Medicine/Primary Attending: Roma Horan MD NIGHT AND WEEKEND COVERAGE: ERICK COVERAGE: Days: [phone], please contact via [employer] Nights: [phone], please page CC Hospitalist Night coverage pager [phone] Subjective INTERVAL HPI: c/o 8/10 abdominal pain. [...] INTRAVENOUS q 6 H PRN - fentaNYL SHIP'S COOK 20 mcg/mL in NaCl 0.9% 100 mL [...] (HCC) POA: Yes YOAN (acute kidney injury) ([facility]) POA: Yes Hypomagnesemia POA: Yes Pancreatitis POA: Yes Primary hypertension POA: Yes Acute pancreatitis Assessment AND Plan: CT: Extensive pancreatitis with inflammatory changes surrounding the transverse colon, spleen and retroperitoneum. ?Small volume ascites is present. ?Extent of pancreatic necrosis cannot be assessed on a noncontrast examination - Patient accepted to [facility] when bed available - IV fluids, NPO except meds - symptom management - Vanco, cipro, flagyl started in ED--c/w same for now. Leukocytosis resolved today -improving lipase - Consult GI, pending [facility] transfer, appreciate recs. May need ERCP -called [...] recipient (HCC) Assessment AND Plan: seen at [facility], admits some noncompliance with medications as of late, and rare alcohol use - transfer [facility] for continued care when able - continue prograf. Will hold Actigall while NPO ? Primary hypertension Assessment AND Plan: elevated in ED, likely due to pain and missed doses - resume po antihypertensives as able - manage pain as able Medication and Non-Pharmacologic VTE Prophylaxis/Anticoagulants VTE Prophylaxis: VTE prophylaxis appr (more content not included)...[facility] [id number] NoteHNO ID: [id number] Author: Interface Note Service: ? Author Type: ? Type: Progress Notes Filed: 07/06/2021 2:53 AM Note Text: Epic Scheduled Downtime: 07/06/2021 1:00:00 AM to 07/06/2021 2:38:59 AMOrem Community HospitalKvuvnhkp52-96-3085 NoteHNO ID: [id number] Author: Lisseth Raymond APRN.[facility] Service: Hospital Medicine Author Type: Nurse Practitioner Type: Plan of Care Filed: 07/05/2021 11:59 PM Note Text: Patient's pain not being controlled with prn dilaudid. Per Up to Date, SHIP'S COOK recommended and fentanyl the safest drug to use for this purpose I discussed case with Dr Shook, I also discussed with the NOM and the pharmacist. A SHIP'S COOK pump ordered. Lisseth Raymond APRN.[facility] HospitalYyeqnkty53-20-6832 NoteHNO ID: [id number] Author: Caryl Duran, RT(R) Service: ? Author Type: Technologist Type: [...] BY: RT Alok(R) July 05, 2021 11:38 [facility] [id number] NoteHNO ID: [id number] Author: RT Devorah(R) Service: Radiology Author Type: [...] BY: RT Devorah(R) July 05, 2021 7:00 [facility] [id number] History of Past illness Narrative* Problem Noted [...] of this encounter (statuses as of 11/08/2021) [facility] of [facility] Narrative* Problem [...] of this encounter (statuses as of 12/16/2021) [facility] Narrative* Problem [...] of this encounter (statuses as of 12/28/2021) [facility] Narrative* Problem [...] of this encounter (statuses as of 12/28/2021) [facility] Narrative* Problem [...] of this encounter (statuses as of 02/20/2022) [facility] Narrative* Problem [...] of this encounter (statuses as of 02/25/2022) [facility] Narrative* Problem [...] of this encounter (statuses as of 03/11/2022) [facility] Narrative* Problem [...] of this encounter (statuses as of 03/24/2022) [facility] Narrative* Problem [...] of this encounter (statuses as of 05/05/2022) [facility] Narrative* Problem [...] of this encounter (statuses as of 07/28/2022) [facility] Narrative* Problem [...] of this encounter (statuses as of 09/04/2022) [facility] Narrative* Problem [...] of this encounter (statuses as of 09/04/2022) [facility] Narrative* Problem [...] of this encounter (statuses as of 09/22/2022) [facility]* Diagnosis Liver replaced by transplant (HCC)- Primary Liver replaced by transplant [facility]* Diagnosis Liver replaced by transplant (HCC)- Primary Liver replaced by transplant Need for prophylactic immunotherapy [facility]* Diagnosis Uncomplicated alcohol dependence (HCC) Other and unspecified alcohol dependence, unspecified drinking behavior documented [facility]* Diagnosis Liver transplant recipient (HCC)- Primary [facility] encounter [facility]* Diagnosis 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 documented [facility] noteNo assessment information availableKindred Healthcare Work Phone: Evaluation note* Diagnosis Onset Date Resolution Status Admit Date Hypertension acute August 2:02pm Liver transplant rejection acute September 02, 2024 2:02pm Mid back pain on left side acute September 02, 2024 2:02pm Wellness examination acute Febr 2024 2:02pm [facility] Work Phone: Evaluation note* Diagnosis Onset Date Resolution Status Admit Date Cervical spondylosis acute February 17, 2025 10:04am Hypertension acute February 17, 025 10:04am Liver transplant rejection acute February 17, 2025 10:04am Lumbar spondylosis acute January 252024 10:04am Post-traumatic arthritis of left foot acute February 17, 2025 10:04am [facility] Work Phone: Hisqali general Narrative - Reported* Type Description Date [...] History COLONOSCOPY 2019 Hospitalization History See Above Melodigram Other [employer] general Narrative - Reported* Type Description Date [...] stent replaced 11/2022 Hospitalization History See Above Melodigram Other history general Narrative - Reported* Type [...] History ERCP 02/2023 Hospitalization History See Above Melodigram Other Hospital course Narrative No data available for this section [facility] No data available for this section [facility] HospitalReason for referral (narrative)* Outpatient Procedure (Routine) - Pending Review Specialty Diagnoses / Procedures Referred By Contac t Referred To Contact [facility] Diagnoses Biliary stricture Procedures ERCP ERCP DX COLLECTION SPECIMEN BRUSHING/WASHING Betina Barr MD [address] [place] [address] [facility] [place] [address] [place] [address] Referral ID Status Reason Start Date Expiration Date Visits Requested Visits Authorized [id number] Pending Review Auto-Generat ed Referral 12/02/2022 09/04/2023 1 1 [facility] for referral (narrative)No reason for referral information availableKindred Healthcare Work Phone: Summary Purpose Family History No Family History Records Found Relationship Condition Age at Onset Recorded Date/T sowmya father Malignant neoplasm of colon Unknown Hypertension Unknown mother Hypertension Unknown Myocardial infarction Unknown brother Epilepsy Unknown Advance Directives No Advanced Directives Records FoundDocuments on File Type Date 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 Advance Directive(s) 10/30/2021 12:47 PM Advance Directive(s) 07/05/2021 6:47 PM Advance Directive(s) 07/16/2020 12:03 PM Advance Directive(s) 05/02/2020 10:37 AM Advance Directive(s) 07/10/2019 5:35 PM Advance Directive(s) 01/21/2019 3:11 PM Advance Directive(s) 10/06/2018 10:21 AM Advance Directive(s) 07/13/2018 6:11 AM Documents on File Type Date 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 Advance Directive(s) 10/30/2021 12:47 PM Advance Directive(s) 07/05/2021 6:47 PM Advance Directive(s) 07/16/2020 12:03 PM Advance Directive(s) 05/02/2020 10:37 AM Advance Directive(s) 07/10/2019 5:35 PM Advance Directive(s) 01/21/2019 3:11 PM Advance Directive(s) 10/06/2018 10:21 AM Advance Directive(s) 07/13/2018 6:11 AM Documents on File Type Date 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 Advance Directive(s) 10/06/2018 10:21 AM Latest Code Status on File Code Status Date Activated Date Inactivated Comments Full Code 09/01/2022 12:05 AM Full Code Order Discussed With: Patient Documents on File Type Date 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 Advance Directive(s) 10/06/2018 10:21 AM [...] IVCON CT ABDOMEN W/CONTRAST Aidan Larios MD [address] [place] [address] Ct Imaging Referral ID Status Reason Start Date Expiration Date Visits Requested Visits Authorized [id number] Pending Review Auto-Generat ed Referral 12/24/2021 01/09/2023 1 1 Referral ID Status Reason Start Date Expiration Date V isits Requested Visits Authorized [id number] Closed Auto-Generated Referral Patient Cleared - INN [...] section and content) DATE CREATED AUTHOR 12/20/2020 [facility] DATE CREATED AUTHOR AUTHOR'S ORGANIZ ATION 07/13/2021 [facility] DATE CREATED AUTHOR AUTHOR'S ORGANIZ ATION 08/18/2021 [facility] DATE CREATED AUTHOR AUTHOR'S ORGANIZ ATION 11/09/2022 [facility] DATE CREATED AUTHOR AUTHOR'S ORGANIZ ATION 03/11/2025 [facility] DATE CREATED AUTHOR AUTHOR'S ORGANIZ ATION 04/13/2025 [facility] DATE CREATED AUTHOR AUTHOR'S ORGANIZ ATION 05/06/2025 [facility] Comments (unrecognize d section and content) In the event this informatio n is protected by the Federal Confidentiality of Alcohol and Drug Abuse Patient Records regulations: The Federal rules restrict any use of the information to criminally investigate or prosecute any alcohol or drug abuse patient.[facility] HospitalIn the event this information is protected by the Federal Confidentiality of Alcohol and Drug Abuse Patient Records regulations: The Federal rules restrict any use of the information to criminally investigate or prosecute any alcohol or drug abuse patient.[facility] HospitalIn the event this information is protected by the Federal Confidentiality of Alcohol and Drug Abuse Patient Records regulations: The Federal rules restrict any use of the information to criminally investigate or prosecute any alcohol or drug abuse patient.[facility] HospitalIn the event this information is protected by the Federal Confidentiality of Alcohol and Drug Abuse Patient Records regulations: The Federal rules restrict any use of the information to criminally investigate or prosecute any alcohol or drug abuse patient.[facility] HospitalIn the event this information is protected by the Federal Confidentiality of Alcohol and Drug Abuse Patient Records regulations: The Federal rules restrict any use of the information to criminally investigate or prosecute any alcohol or drug abuse patient.[facility] HospitalIn the event this information is protected by the Federal Confidentiality of Alcohol and Drug Abuse Patient Records regulations: The Federal rules restrict any use of the information to criminally investigate or prosecute any alcohol or drug abuse patient.[facility] HospitalIn the event this information is protected by the Federal Confidentiality of Alcohol and Drug Abuse Patient Records regulations: The Federal rules restrict any use of the information to criminally investigate or prosecute any alcohol or drug abuse patient.[facility] HospitalIn the event this information is protected by the Federal Confidentiality of Alcohol and Drug Abuse Patient Records regulations: The Federal rules restrict any use of the information to criminally investigate or prosecute any alcohol or drug abuse patient.[facility] HospitalIn the event this information is protected by the Federal Confidentiality of Alcohol and Drug Abuse Patient Records regulations: The Federal rules restrict any use of the information to criminally investigate or prosecute any alcohol or drug abuse patient.[facility] HospitalIn the event this information is protected by the Federal Confidentiality of Alcohol and Drug Abuse Patient Records regulations: The Federal rules restrict any use of the information to criminally investigate or prosecute any alcohol or drug abuse patient.[facility] HospitalIn the event this information is protected by the Federal Confidentiality of Alcohol and Drug Abuse Patient Records regulations: The Federal rules restrict any use of the information to criminally investigate or prosecute any alcohol or drug abuse patient.[facility] HospitalIn the event this information is protected by the Federal Confidentiality of Alcohol and Drug Abuse Patient Records regulations: The Federal rules restrict any use of the information to criminally investigate or prosecute any alcohol or drug abuse patient.[facility] HospitalIn the event this information is protected by the Federal Confidentiality of Alcohol and Drug Abuse Patient Records regulations: The Federal rules restrict any use of the information to criminally investigate or prosecute any alcohol or drug abuse patient.Wayne HospitalIn the event this information is protected by the Federal Confidentiality of Alcohol and Drug Abuse Patient Records regulations: The Federal rules restrict any use of the information to criminally investigate or prosecute any alcohol or drug abuse patient.[facility] Reason for Visit (unrecogniz ed section and content) Reason Comments Radiology CT Specialty Diagnoses / Procedures Referred By Contac t Referred To Contact CT IMAGING Diagnoses Alcohol-induced acute pancreatitis, unspecified complication status Procedures CT ABDOMEN W IVCON CT ABDOMEN W/CONTRAST Aidan Larios MD [address] [place] [address] Ct Imaging Referral ID Status Reason Start Date Expiration Date V isits Requested Visits Authorized [id number] Closed Auto-Generated Referral Patient Cleared - INN [...] September 02, 2024 End: September 02, 2024 [employer] Relationship Specialty Start Date End Date Luis Abdalla Damon, DO [address] [place] [address] PCP - General Internal Medicine 01/12/18 Angie Fernandes Jr. [address] [address] Referring Gastroenterology 01/12/18 Nadja Spencer RN [facility] [address] [place] [address] Transplant Center 08/31/19 Blocker And Sewer Relationship Specialty Start Date End Date Luis Abdalla, DO [address] [place] [address] PCP - General Internal Medicine 01/12/18 Angie Fernandes Jr. [address] [address] Referring Gastroenterology 01/12/18 Nadja Spencer RN [facility] [address] [place] [address] Transplant Center 08/31/19 Blocker And Sewer Relationship Specialty Start Date End Date Luis Abdlala, DO [address] [place] [address] PCP - General Internal Medicine 01/12/18 Angie Fernandes Jr. [address] [address] Referring Gastroenterology 01/12/18 Nadja Spencer RN [facility] [address] [place] [address] Transplant Center 08/31/19 Blocker And Sewer Relationship Specialty Start Date End Date Luis Abdalla, DO [address] [place] [address] PCP - General Internal Medicine 01/12/18 Angie Fernandes Jr. [address] [address] Referring Gastroenterology 01/12/18 Nadja Spencer RN [facility] [address] [place] [address] Transplant Center 08/31/19 Blocker And Sewer Relationship Specialty Start Date End Date Luis Abdalla, DO [address] [place] [address] PCP - General Internal Medicine 01/12/18 Angie Fernandes Jr. [address] [address] Referring Gastroenterology 01/12/18 Nadja Spencer RN [facility] [address] [place] [address] Transplant Center 08/31/19 Blocker And Sewer Relationship Specialty Start Date End Date Luis Abdalla, DO [address] [place] [address] PCP - General Internal Medicine 01/12/18 Angie Fernandes Jr. [address] [address] Referring Gastroenterology 01/12/18 Nadja Spencer RN [facility] [address] [place] [address] Transplant Center 08/31/19 Bl[employer] And [employer]er Relationship Specialty Start Date End Date Luis Abdalla, DO [address] [place] [address] PCP - General Internal Medicine 01/12/18 Angie Fernandes Jr., DO [address] [address] Referring Gastroenterology 01/12/18 Nadja Spencer RN [facility] [address] [place] [address] Transplant Center 08/31/19 Blocker And Sewer Relationship Specialty Start Date End Date Luis Abdalla, DO [address] [facility] [place] [address] PCP - General Internal Medicine 01/12/18 Angie Fernandes Jr., DO [address] [address] Referring Gastroenterology 01/12/18 Nadja Spencer, BATOOL [facility] [address] [place] [address] Transplant Center 08/31/19 Blocker And Sewer Relationship Specialty Start Date End Date Luis Abdalla, DO [address] [facility] [place] [address] PCP - General Internal Medicine 01/12/18 Angie Fernandes Jr., DO [address] [address] Referring Gastroenterology 01/12/18 Nadja Spencer, BATOOL [facility] [address] [place] [address] Transplant Center 08/31/19 Bl[employer] And [employer]er Relationship Specialty Start Date End Date Luis Abdalla, DO [address] [facility] [place] [address] PCP - General Internal Medicine 01/12/18 Angie Fernandes Jr., DO [address] [address] Referring Gastroenterology 01/12/18 Nadja Spencer, BATOOL [facility] [address] [place] [address] Transplant Center 08/31/19 Team Status: Inactive Member [...] BE BASED ON THE PRIMARY CLINICAL RECORDS. [facility]. provides no warranty or guarantee of the accuracy or completeness of information in this document.
--- NOTE | 2025-05-11 10:29 | PM.CN ---
Consult Note: HPI Data of Consult Patient: known to practice within the last 3 years Consult date: 05/11/25 Requesting Physician: Brandy Chan NP Primary Care Provider: Luis Hicks DO Consult Narrative Reason for consult: left foot pain Narrative: Prateek raymundo pleasnt 39 year old male who presents for assessment. notes increasing left foot pain, sometimes to the point where he cannot walk on it without crutches. prior left foot mri consistent with significant for moderate midfoot arthritis. has engaged in >6 weeks of provider directed home exercises, without relief. tried lyrica 50mg, which was beneficial, but gave him nightmares. not utilizing any tylenol or motrin due to hx of liver transplant. recently underwent left foot injection with >50% improvement ongoing cc:: CC: Brandy Chan NP Review of Systems ROS Musculoskeletal Reports: extremity pain and joint pain PFSH PFSH Medical History Liver transplant failure and rejection ?T86.42 - Liver transplant failure (ICD-10) ?T86.41 - Liver transplant rejection (ICD-10) Acid reflux ?K21.9 - Gastro-esophageal reflux disease without esophagitis (ICD-10) Hemochromatosis ?E83.119 - Hemochromatosis, unspecified (ICD-10) High blood pressure ?I10 - Essential (primary) hypertension (ICD-10) Surgical History History of fusion of cervical spine ?Z98.1 - Arthrodesis status (ICD-10) History of ERCP ?Z98.890 - Other specified postprocedural states (ICD-10) History of liver transplant ?Z94.4 - Liver transplant status (ICD-10) Social History Little interest or pleasure in doing things: not at all Feeling down, depressed, or hopeless: not at all Meds Home Medications and Allergies Home Medications ?Medication ?Instructions ?Recorded ?Confirmed ?Type amlodipine 10 mg tablet 10 mg PO DAILY 09/28/23 05/01/25 History carvedilol 12.5 mg tablet 25 mg PO BID 09/28/23 05/01/25 History pantoprazole 40 mg tablet,delayed 40 mg PO DAILY 09/28/23 05/01/25 History release tacrolimus 1 mg capsule, 2 mg PO BID 09/28/23 05/01/25 History immediate-release ursodiol 300 mg capsule 300 mg PO TID 09/28/23 05/01/25 History sulfamethoxazole 400 1 tab PO DAILY 11/21/24 05/01/25 History mg-trimethoprim 80 mg tablet (Bactrim) Allergies Allergy/AdvReac Type Severity Reaction Status Date / Time midazolam (From Versed) Allergy Unknown Agitated Verified 05/01/25 12:33 Penicillins Allergy Unknown Rash Verified 05/01/25 12:33 Exam Constitutional Documenting provider has reviewed patient's vital signs: yes Common normals: no apparent distress, oriented x3, healthy appearing, alert and well nourished General appearance: cooperative HENMT Common normals: normocephalic, hearing grossly normal bilaterally and moist oral mucous membranes Head and scalp: normocephalic Eye Common normals: PERRL Pupil: PERRL Neck & C-Spine Common normals: full ROM General: normal visual inspection Chest Common normals: inspection of chest normal Respiratory Common normals: normal respiratory effort, no retractions and no use of accessory muscles Extremity Left lower extremity: foot and digits Other: left foot pain with palpation over first tarsometatarsal joint, no obvious edema redness warmth. minimal pain with ROM, mild pain with dorsiflexion. denies temperature changes, color changes, change in skin/nail growth, sensitivity to touch Neuro Common normals: oriented x3 Sensorium/orientation: alert Psych Common normals: mental status grossly normal, thought process normal, cooperative, affect normal, speech normal and activity/motor behavior normal Speech: normal speech Thought process: normal thought process Results Additional Findings Additional findings: If on a controlled substance or opioids, I have checked an [place] report on this patient and there are no aberrancies noted in the prescribing history.??If on a controlled substance or opioid a drug screen was completed and reviewed within the last year, and if there has not been a drug screen completed we ordered one today to monitor higher risk, state monitored pain medication use. As part of providing excellent, safe, comprehensive care, the following was completed at our patient's visit: 1. A medication reconciliation and review to ensure accurate knowledge of current/active medications, including asking our patients to inform us about any [id number] medications or herbal remedies/nutritional supplements/alternative remedies. 2. A review to specifically ensure our patients have had annual screening for screening for depression, screening for tobacco use, and screening for unhealthy alcohol use. For concerning screenings had a discussion with the patient, provided patient education, and recommended follow-up with primary care provider when appropriate. If patient noted with a risk of falling, they received education on strength, gait, and balance training to prevent future risk of falling. Portions of this note may have been carried over from the previous visit and updated as appropriate. Please note this office utilizes paper charting in addition to the electronic medical record. A list of current medications, vitals, and PMH is available there as the clinical staff outside of myself do not have access to [employer] charting during the clinic day operations. As part of providing quality comprehensive care the current medications, vitals, and PMH were reviewed in the paper chart. Assessment and Plan Assessment and Plan (1) Left foot pain: (2) Left ankle pain: Plan encouraged transdermal therapeutics cream 2-3x daily PRN pain update left ankle/foot xray to assess OA and chronic pain pt reports the transplant team has notified him he is likely noting increased joint pain as a side effect of anti rejection medications and early onset OA f/u [address] Thompson
== END 2025-05-11 10:15 | disposition home or self-care (01) ==
LOC: PM 10:14
PROVIDERS: PCP Internal Medicine; Visit Provider Nurse Practitioner
DX: M79.672 Pain in left foot (principal); M25.572 Pain in left ankle and joints of left foot
CPT/HCPCS: 73610; 73630; G0463

== ENCOUNTER 2025-05-11 11:09 | Outpatient (OUT) | payer MEDICARE, MEDICAID, SELFPAY ==
--- OUTSIDE RECORDS SUMMARY | 2025-05-11 11:14 | XMS_ITS | Patient Health Record ---
Author Organization [facility] [place] Address [address] [place] [address] Care Team Providers Care Budget Specialist Name Role Phone None, Unknown or Primary [...] Risk Notes Problem History of liver recipient ([id number]) Liver transplant status (Z94.4) Active confirmed Plan Of Treatment No Information Insurance Providers Payer Name Payer Address Payer Phone Subscriber Number Group Number Insured Name Patient Relationship to Insured Coverage Start Date Coverage End Date [place] [address] [place] [address] [id number] Chuckie Villalta Self - patient is the insured [place] 2ND INS [address] [place], [place] [id number] [phone] [id number] Chuckie Villalta Self - patient is the insured Medical (General) History Medical History History ICD Code hypertension liver disease liver transplant recipient Surgical History Surgery Date(Month/Year) liver transplant 07/11/2019 vertabrae fusion 2020 liver rejection surgery 07/2019 Hospitalization History Reason Date(Month/Year) see above
--- OUTSIDE RECORDS SUMMARY | 2025-05-11 11:14 | XMS_ITS | Clinical Summary ---
Author Organization [facility] Address [address] [place] [address] Phone Care Team Providers Care Supervisor Pleating Name Role Phone Unavailable Primary Care Provider [...]
--- OUTSIDE RECORDS SUMMARY | 2025-05-11 11:14 | XMS_ITS | Encounter Summary ---
Author Organization [facility] Address [address] [place] [address] Phone Care Team Providers Care Instructor Pilot Name Role Phone Unavailable Primary Care Provider Unavailabl e Encounter Details Date Type Department Care Team (Late st Contact Info) Description 02/04/[address] [facility] [address] [place] [address] Conversion, Onbase Social History Tobacco Use Types [...]
--- OUTSIDE RECORDS SUMMARY | 2025-05-11 11:15 | XMS_ITS | CCD ---
Author Organization [facility] CliniSyla Care Team Providers Care Certified Adapted Physical Educator Name Role Phone DR LUIS ABDALLA Attending Unavailable BALL, DR VAZQUEZ Consulting Unavailable BALL, DR VAZQUEZ Primary Care Unavailable BALL, DR VAZQUEZ Admitting Unavailable WEST, DR ANGIE Winslow Consulting Unavailable Luis Abdalla DO Primary Care Provider Angie Fernandes Jr. Unavailable [phone] Nadja Spencer RN Unavailable Unavailable Luis Abdalla DO Primary Care Provider Angie Fernandes Jr. Unavailable Nadja Spencer RN Unavailable Unavailable Dena Pineda DO, David L Unavailable Nadja Spencer RN Unavailable Unavailable Luis Abdalla DO Primary Care Provider Dena Pineda DO, David L Unavailable [phone] Nadja Spencer RN Unavailable Unavailable Luis Abdalla Unavailable LUIS ABDALLA Primary Care Unavailable ROSEMARIE SHEPARD Attending Unavailable LUIS ABDALLA Primary Care Physician [phone] Luis Abdalla DO Primary Care Provider [phone] Luis Abdalla DO Attending Provider NICKOLAS MCCALLUM [...] Allergy 1 Other: See Comments [facility] (9 sources) Penicillins; Translations: [PENICILLINS] Drug Allergy 4 Unknown, Swelling [facility] Work Phone: Comment on above: had skin test done b efore transplant (16 sources) Seasonal allergy; Translations: [SEASONAL ALLERGIES] Propensity to adverse reactions 8 Unknown [facility] (10 sources) Penicillins Drug Allergy Unknown [facility] Work Phone: (6 sources) penicillAMINE Drug Allergy 4 Unknown, Unknown Reaction [facility] (3 sources) Penicillin; Translations: [penicillin] Drug Allergy Urticaria (disorder) [facility] (1 source) Midazolam; Translations: [Versed] Drug Allergy [facility] Repository Medications Current Medications Medication Drug [...] day(s), # 21 tab(s), Refills(s) 0, Pharmacy: [id number], 113.4, cm, 01/26/25 11:00:00 EDT, Height/Length Dosing, [...] Basophils (Bld) [#/Vol] 0.03 10*3/uL Normal <0.11 [facility] Comment on above: Order Comment: Speci mercy Type: BLOOD SPECIMEN Ordering Facility: [facility] Address: [address] [place] [address] Performed By: #### 5 7021-8 #### [facility] CLIA [id number] [address] [place] [address] [place] Basophils/100 WBC (Bld) 0.3 % Normal [facility] Comment on above: Order Comment: Noe madrid Type: BLOOD SPECIMEN Ordering Facility: [facility] Address: [address] [place] [address] Performed By: #### 5 7021-8 #### [facility] CLIA [id number] [address] [place] [address] [place] Differential cell count method Nom (Bld) Auto Normal [facility] Comment on above: Order Comment: Noe madrid Type: BLOOD SPECIMEN Ordering Facility: [facility] Address: [address] [place] [address] Performed By: #### 5 7021-8 #### [facility] CLIA [id number] [address] [place] [address] [place] Eosinophils (Bld) [#/Vol] 0.18 10*3/uL Normal <0.46 [facility] Comment on above: Order Comment: Speci men Type: BLOOD SPECIMEN Ordering Facility: [facility] Address: [address] [place] [address] Performed By: #### 5 7021-8 #### [facility] CLIA [id number] [address] [place] [address] [place] Eosinophils/100 WBC (Bld) 2.0 % Normal [facility] Comment on above: Order Comment: Speci men Type: BLOOD SPECIMEN Ordering Facility: [facility] Address: [address] [place] [address] Performed By: #### 5 7021-8 #### [facility] CLIA [id number] [address] [place] [address] [place] Erythrocyte distribution width (RBC) [Ratio] 14.7 % Normal 11.5-15.0 [facility] Comment on above: Order Comment: Speci men Type: BLOOD SPECIMEN Ordering Facility: [facility] Address: [address] [place] [address] Performed By: #### 5 7021-8 #### [facility] CLIA [id number] [address] [place] [address] [place] Hematocrit (Bld) [Volume fraction] 41.3 % Normal 39.0-51.0 [facility] Comment on above: Order Comment: Speci men Type: BLOOD SPECIMEN Ordering Facility: [facility] Address: [address] [place] [address] Performed By: #### 5 7021-8 #### [facility] CLIA [id number] [address] [place] [address] [place] Hemoglobin (Bld) [Mass/Vol] 14.3 g/dL Normal 13.0-17.0 [facility] Comment on above: Order Comment: Speci men Type: BLOOD SPECIMEN Ordering Facility: [facility] Address: [address] [place] [address] Performed By: #### 5 7021-8 #### [facility] CLIA [id number] [address] [place] [address] [place] Immature granulocytes (Bld) [#/Vol] 0.08 10*3/uL Normal <0.10 [facility] Comment on above: Order Comment: Speci men Type: BLOOD SPECIMEN Ordering Facility: [facility] Address: [address] [place] [address] Performed By: #### 5 7021-8 #### [facility] CLIA [id number] [address] [place] [address] [place] Immature granulocytes/100 WBC (Bld) 0.9 % Normal [facility] Comment on above: Order Comment: Speci men Type: BLOOD SPECIMEN Ordering Facility: [facility] Address: [address] [place] [address] Performed By: #### 5 7021-8 #### [facility] CLIA [id number] [address] [place] [address] [place] Lymphocytes (Bld) [#/Vol] 0.89 10*3/uL Low 1.00-4.00 [facility] Comment on above: Order Comment: Speci men Type: BLOOD SPECIMEN Ordering Facility: [facility] Address: [address] [place] [address] Performed By: #### 5 7021-8 #### [facility] CLIA [id number] [address] [place] [address] [place] Lymphocytes/100 WBC (Bld) 9.8 % Normal [facility] Comment on above: Order Comment: Speci men Type: BLOOD SPECIMEN Ordering Facility: [facility] Address: [address] [place] [address] Performed By: #### 5 7021-8 #### [facility] CLIA [id number] [address] [place] [address] [place] MCH (RBC) [Entitic mass] 29.7 pg Normal 26.0-34.0 [facility] Comment on above: Order Comment: Speci men Type: BLOOD SPECIMEN Ordering Facility: [facility] Address: [address] [place] [address] Performed By: #### 5 7021-8 #### [facility] CLIA [id number] [address] [place] [address] [place] MCHC (RBC) [Mass/Vol] 34.6 g/dL Normal 30.5-36.0 [facility] Comment on above: Order Comment: Speci men Type: BLOOD SPECIMEN Ordering Facility: [facility] Address: [address] [place] [address] Performed By: #### 5 7021-8 #### [facility] CLIA [id number] [address] [place] [address] [place] MCV (RBC) [Entitic vol] 85.9 fL Normal 80.0-100.0 [facility] Comment on above: Order Comment: Speci men Type: BLOOD SPECIMEN Ordering Facility: [facility] Address: [address] [place] [address] Performed By: #### 5 7021-8 #### [facility] CLIA [id number] [address] [place] [address] [place] Monocytes (Bld) [#/Vol] 0.85 10*3/uL Normal <0.87 [facility] Comment on above: Order Comment: Speci men Type: BLOOD SPECIMEN Ordering Facility: [facility] Address: [address] [place] [address] Performed By: #### 5 7021-8 #### [facility] CLIA [id number] [address] [place] [address] [place] Monocytes/100 WBC (Bld) 9.3 % Normal [facility] Comment on above: Order Comment: Speci men Type: BLOOD SPECIMEN Ordering Facility: [facility] Address: [address] [place] [address] Performed By: #### 5 7021-8 #### [facility] CLIA [id number] [address] [place] [address] [place] Neutrophils (Bld) [#/Vol] 7.09 10*3/uL Normal 1.45-7.50 [facility] Comment on above: Order Comment: Speci men Type: BLOOD SPECIMEN Ordering Facility: [facility] Address: [address] [place] [address] Performed By: #### 5 7021-8 #### [facility] CLIA [id number] [address] [place] [address] [place] Neutrophils/100 WBC (Bld) 77.7 % Normal [facility] Comment on above: Order Comment: Speci men Type: BLOOD SPECIMEN Ordering Facility: [facility] Address: [address] [place] [address] Performed By: #### 5 7021-8 #### [facility] CLIA [id number] [address] [place] [address] [place] Nucleated RBC (Bld) [#/Vol] 10*3/uL Normal <0.01 [facility] Comment on above: Order Comment: Speci men Type: BLOOD SPECIMEN Ordering Facility: [facility] Address: [address] [place] [address] Performed By: #### 5 7021-8 #### [facility] CLIA [id number] [address] [place] [address] [place] Nucleated RBC/100 WBC (Bld) [Ratio] 0.0 /100 WBC Normal [facility] Comment on above: Order Comment: Speci men Type: BLOOD SPECIMEN Ordering Facility: [facility] Address: [address] [place] [address] Performed By: #### 5 7021-8 #### [facility] CLIA [id number] [address] [place] [address] [place] Platelet mean volume (Bld) [Entitic vol] 13.3 fL High 9.0-12.7 [facility] Comment on above: Order Comment: Speci men Type: BLOOD SPECIMEN Ordering Facility: [facility] Address: [address] [place] [address] Performed By: #### 5 7021-8 #### [facility] CLIA [id number] [address] [place] [address] [place] Platelets (Bld) [#/Vol] 117 10*3/uL Low 150-400 [facility] Comment on above: Order Comment: Speci men Type: BLOOD SPECIMEN Ordering Facility: [facility] Address: [address] [place] [address] Performed By: #### 5 7021-8 #### [facility] CLIA [id number] [address] [place] [address] [place] RBC (Bld) [#/Vol] 4.81 10*6/uL Normal 4.20-6.00 [facility] Comment on above: Order Comment: Speci men Type: BLOOD SPECIMEN Ordering Facility: [facility] Address: [address] [place] [address] Performed By: #### 5 7021-8 #### [facility] CLIA [id number] [address] [place] [address] [place] WBC (Bld) [#/Vol] 9.12 10*3/uL Normal 3.70-11.00 [facility] Comment on above: Order Comment: Speci men Type: BLOOD SPECIMEN Ordering Facility: [facility] Address: [address] [place] [address] Performed By: #### 5 7021-8 #### [facility] CLIA [id number] [address] [place] [address] [place] Comprehensive metabolic 2000 panelon 08-14-2025 Albumin [Mass/Vol] 4.4 g/dL Normal 3.9-4.9 [facility] Comment on above: Order Comment: Speci men Type: BLOOD SPECIMEN Ordering Facility: [facility] Address: [address] [place] [address] Performed By: #### 2 4323-8, 277- #### [facility] CLIA [id number] [address] [place] [address] [place] ALP [Catalytic activity/Vol] 80 U/L Normal 38-113 [facility] Comment on above: Order Comment: Speci men Type: BLOOD SPECIMEN Ordering Facility: [facility] Address: [address] [place] [address] Performed By: #### 2 4323-8, 277- #### [facility] CLIA [id number] [address] [place] [address] [place] ALT [Catalytic activity/Vol] 22 U/L Normal 10-54 [facility] Comment on above: Order Comment: Speci men Type: BLOOD SPECIMEN Ordering Facility: [facility] Address: [address] [place] [address] Performed By: #### 2 4323-8, 27701-24 #### [facility] CLIA [id number] [address] [place] [address] [place] Anion gap [Moles/Vol] 11 mmol/L Normal 8-15 [facility] Comment on above: Order Comment: Speci men Type: BLOOD SPECIMEN Ordering Facility: [facility] Address: [address] [place], [place] [address] Performed By: #### 2 4323-8, 277- #### [facility] CLIA [id number] [address] [place], [place] [id number] [place] AST [Catalytic activity/Vol] 20 U/L Normal 14-40 [facility] Comment on above: Order Comment: Speci men Type: BLOOD SPECIMEN Ordering Facility: [facility] Address: [address] [place], [place] [id number] Performed By: #### 2 4323-8, 277- #### [facility] CLIA [id number] [address] [place] [address] [place] Bilirubin [Mass/Vol] 1.4 mg/dL High 0.2-1.3 [facility] Comment on above: Order Comment: Speci men Type: BLOOD SPECIMEN Ordering Facility: [facility] Address: [address] [place] [address] Performed By: #### 2 4323-8, 27701-24 #### [facility] CLIA [id number] [address] [place] [address] [place] Calcium [Mass/Vol] 9.8 mg/dL Normal 8.5-10.2 [facility] Comment on above: Order Comment: Speci men Type: BLOOD SPECIMEN Ordering Facility: [facility] Address: [address] [place] [address] Performed By: #### 2 4323-8, 27701-24 #### [facility] CLIA [id number] [address] [place] [address] [place] Chloride [Moles/Vol] 100 mmol/L Normal 98-107 [facility] Comment on above: Order Comment: Speci men Type: BLOOD SPECIMEN Ordering Facility: [facility] Address: [address] [place], [place] [address] Performed By: #### 2 4323-8, 27701-24 #### [facility] CLIA [id number] [address] [place] [address] [place] CO2 [Moles/Vol] 23 mmol/L Normal 22-30 [facility] Comment on above: Order Comment: Speci men Type: BLOOD SPECIMEN Ordering Facility: [facility] Address: [address] [place], [place] [address] Performed By: #### 2 4323-8, 277-1 #### [facility] CLIA [id number] [address] [place] [address] [place] Creatinine [Mass/Vol] 1.11 mg/dL Normal 0.73-1.22 [facility] Comment on above: Order Comment: Noe madrid Type: BLOOD SPECIMEN Ordering Facility: [facility] Address: [address] [place] [address] Performed By: #### 2 4323-8, 2776- #### [facility] CLIA [id number] [address] [place], [place] [address] [place] eGFRcr SerPlBld CKD-EPI 2020 87 mL/min/1.73m??? Normal >=60 [facility] Comment on above: Order Comment: Noe madrid Type: BLOOD SPECIMEN Ordering Facility: [facility] Address: [address] [place] [address] Result Comment: Brenda mated Glomerular Filtration Rate [...] Performed By: #### 2 4323-8, 2776-07 #### [facility] CLIA [id number] [address] [place] [address] [place] Glucose [Mass/Vol] 248 mg/dL High 74-99 [facility] Comment on above: Order Comment: Noe madrid Type: BLOOD SPECIMEN Ordering Facility: [facility] Address: [address] [place] [address] Result Comment: The [place] Diabetes Association (ADA) provides guidance for cutoff [...] Standards of Medical Care in Diabetes 2016, [place] Diabetes Association. Diabetes Care. 2016.39(Suppl 1). Performed By: #### 2 4323-8, 277- #### [facility] CLIA [id number] [address] [place] [address] [place] Potassium [Moles/Vol] 4.5 mmol/L Normal 3.7-5.1 [facility] Comment on above: Order Comment: Louiei mercy Type: BLOOD SPECIMEN Ordering Facility: [facility] Address: [address] [place] [address] Performed By: #### 2 4323-8, 2776-07 #### [facility] CLIA [id number] [address] [place] [address] [place] Protein [Mass/Vol] 7.4 g/dL Normal 6.3-8.0 [facility] Comment on above: Order Comment: Louiei mercy Type: BLOOD SPECIMEN Ordering Facility: [facility] Address: [address] [place] [address] Performed By: #### 2 4323-8, 2776-07 #### [facility] CLIA [id number] [address] [place] [address] [place] Sodium [Moles/Vol] 134 mmol/L Low 136-144 [facility] Comment on above: Order Comment: Louiei men Type: BLOOD SPECIMEN Ordering Facility: [facility] Address: [address] [place] [address] Performed By: #### 2 4323-8, 2776-07 #### [facility] CLIA [id number] [address] [place], [place] [address] [place] Urea nitrogen [Mass/Vol] 22 mg/dL Normal 9-24 [facility] Comment on above: Order Comment: Speci men Type: BLOOD SPECIMEN Ordering Facility: [facility] Address: [address] [place] [address] Performed By: #### 2 4323-8, 2777-1 #### [facility] CLIA [id number] [address] [place] [address] [place] [facility] Phosphate [Mass/Vol] 3.3 mg/dL Normal 2.7-4.8 [facility] Comment on above: Order Comment: Noe madrid Type: BLOOD SPECIMEN Ordering Facility: [facility] Address: [address] [place] [address] Performed By: #### 2 4323-8, 2777-1 #### [facility] CLIA [id number] [address] [place] [address] [place] Tacrolimus Bld-[facility] 2024 Tacrolimus (Bld) [Mass/Vol] 8.4 ng/mL Normal 5.0-20.0 [facility] Comment on above: Order Comment: Noe madrid Type: BLOOD SPECIMEN Ordering Facility: [facility] Address: [address] [place] [address] Result Comment: Nannette vidualized target levels for [...] i. Performed By: #### 1 1253-2 #### [facility] CLIA [id number] [address] [place] [address] [place] CNPNon 02-21-2025 CNPN Telephone (TXCTMN) VILL[place]IE RIVERA ([id number]) 1985 M Date Time Provider Department 02/21/25 [...] also agreeable to a virtual visit with [facility]termaker continuous churn hepatology once he has lab work drawn. 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 He is on vacation this week, so plans to have lab work drawn next week. Nadja Spencer (Cassie) RN, BSN, [facility] Liver Bus Starter Allergies As of Date: 02/21/2025 Noted Allergy [...] Status:Closed by NADJA SPENCER on 02/21/25 Normal [facility] Nonvisit Note - PTon 025 Nonvisit Note - PT Nonvisit Note - PT Pt no showed for 929 appointment. Normal [facility] ED Clinical Summaryon 2024 ED Clinical Summary ED Clinical Summary [place] [id number] ED Clinical Summary Person Information Name: CHUCKIE VILLALTA Shivani Marissa/[facility] Age: 39 Years : 1985 Sex: Male Language: German PCP: LUIS ABDALLA DO Marital Status: Phone: [phone] Visit Id: Visit Reason: Leg pain-swelling; Back [...] 11:40:59 01/26/2025 11:40:59 01/26/2025 11:40:59 AD[address]ESS: [address] [phone] PHYS DOC NOTES: MEDICAL INFORMATION: Prescriptions Given: New Medications [id number], [address], [place] [id number], [phone] predniSONE (predniSONE 20 mg Tab) 3 Tablets By Mouth every day for 7 Days. Refills: 0. PATIENT EDUCATION INFORMATION: Instructions: Acute Back Pain, Adult Follow up: With: Address: When: LUIS ABDALLA [address] [facility] [address] Business (1) In 3 days 01/29/2025 DIAGNOSIS: Back pain Normal [facility] ED Note-Physicianon 01-27-20 ED Note-Physician ED [...] day(s), # 21 tab(s), Refills(s) 0, Pharmacy: [id number], 113.4, cm, 01/26/25 11:00:00 EDT, Height/Length Dosing, [...] In 3 days 01/29/2025 [address]T [address] [facility] (1) Additional Instructions: Patient Education Acute Back [...] made to ensure accuracy, however, inadvertently computerized handwriting expert mistakes may be present. Appropriate healthcare PPE [...] Diagnostic Results No qualifying data available. Normal [facility] Comment on above: Result Comment: Elec tronically Signed By: Reynaldo Lopez PA-C\.br\Date and Time Signed: 01/26/25 12:05 EDT\.br\Electronically Co-Signed By: Ralf Carbajal DO\.br\Date and Time Co-Signed: 01/26/25 18:06 EDT ED Patient Summaryon 025 ED Patient Summary ED Patient Summary [address] [address] Patient Discharge Instructions Person Information Name: CHUCKIE VILLALTA Age: 39 Years Arrival Date: 01/26/2025 10:49:31 Discharge Diagnosis: Back pain Primary Care Physician: LUIS ABDALLA DO Provider Information Primary Provider: Ralf Carbajal DO Advanced Principal Technical Specialist:Reynaldo Lopez PA-C The exam and treatment you received in the Emergency Department were for an urgent problem and are not intended as complete care. It is important that you follow up with a doctor, nurse practitioner, or physician???s lens assistant for ongoing care. If your symptoms [...] Instructions: With: Address: When: LUIS ABDALLA [address] [place] [address] [facility] (1) In 3 days 01/29/2025 In the event that this physician does not participate in your insurance network, please consult with your insurance company to find a nearby participating provider. Patient Education Materials: Acute Back Pain, Adult A MESSAGE TO ALL PATIENTS REGARDING OPIOIDS PRESCRIPTION OPIOIDS: WHAT YOU NEED TO KNOW Prescription opioids can be used to help relieve tuvtbghi-fq-iiuylo pain and are often prescribed following a [...] be struggling with addiction, tell your health clinical care coordinator and ask for vani (more content not included)... Normal [facility] Nonvisit Note - PTon 025 Nonvisit Note - PT Nonvisit Note - PT Pt called to cancel his OP physical therapy session today 01/26/25 due to hurting his back, therefore needing to cancel his appointment. Martita Almazan, LABORER OPERATOR 01/26/25 Normal [facility] XR Spine Lumbosacral 2 or 3 [...] Carrasco MD Transcribed by: DAVID Technologist: Normal [facility] Fibrin D-dimer [Presence] in Platelet poor plasma by Latex agglutinationon 08-20-2024 Fibrin D-dimer LA Ql (PPP) Fibrin D-dimer [Presence] in Platelet poor plasma by Latex agglutination <=0.59 [facility] Comment on above: Increases in D-Dimer concentration [...] Rey 11-04-2022 CNPN Telephone (LU4C) CHUCKIE VILLALTA ([id number]) 1985 M TRN Date Time Provider Department 11/04/22 MIMI CLEMENS [facility] During your visit today, we recorded the following information about you: SHAQ Price 11/04/2022 11:06 AM Signed DEONDRE attempted to contact the patient to discuss the [facility] clinic. DEONDRE left a [...] Fully Assessed Reason for Visit: Care Coordination [9336] Cmt: [facility] clinic Prescriptions as of [...] Encounter Status:Closed by MIMI CLEMENS on 11/04/22 [facility] [facility] FLUORO ERCP (POC) FOR DDI US E ONLYon 09-04-2022 [facility] CNOVon 02-25-2022 CNOV Office Visit (PSCHL) CHUCKIE VILLALTA ([id number]) 1985 M TRN Date Time Provider Department 02/25/22 9:00 AM ROSEMARIE SHEPARD During your visit today, we recorded the following information about you: SHAQ Chua 02/25/2022 10:46 AM Signed [facility] Assessment Visit Type:Virtual Visit utilizing two-way audio and video for at least a portion of the visit IDENTIFYING INFORMATION: [phone] [email or web address] Lives with of nine years, Екатерина and [...] to virtual evaluation. Patient and this typewriter repairer present during interview. PRECIPITATING PROBLEM(S):Patient was dx with liver disease in 2017. Completed an IOP at [facility] in summer 2018, and received liver transplant [...] Age 16, every other weekend. Went to [email or web address] for college drank heavily on weekends, then [...] was intend (more content not included)... Normal [facility] CT ABDOMEN W IVCONon 022 [facility] Basic Metabolic Panlon 07-12 Anion gap [Moles/Vol] 8 mmol/L Low 9-18 [facility] Calcium [Mass/Vol] 8.6 mg/dL Normal 8.5-10.2 [facility] Chloride [Moles/Vol] 103 mmol/L Normal 97-105 [facility] CO2 [Moles/Vol] 24 mmol/L Normal 22-30 [facility] Creatinine [Mass/Vol] 2.67 mg/dL High 0.73-1.22 [facility] eGFR- Amer. 33 Normal [facility] eGFR-All Other Races 27 . Normal [facility] Comment on above: Result Comment: eGFR [...] [email or web address]. Glucose [Mass/Vol] 113 mg/dL High 74-99 [facility] Comment on above: Result Comment: The [place] Diabetes Association (ADA) provides guidance for cutoff [...] Standards of Medical Care in Diabetes 2016, [place] Diabetes Association. Diabetes Care. 2016.39(Suppl 1). Potassium [Moles/Vol] 3.3 mmol/L Low 3.7-5.1 [facility] Sodium [Moles/Vol] 135 mmol/L Low 136-144 [facility] Urea nitrogen [Mass/Vol] 11 mg/dL Normal 9-24 [facility] CASE MANAGEMon 07-12-2021 CASE MANAGEM HNO ID: [id number] Author: Nanette Dangelo RN Service: ? Author [...] 12, 2021 TIME: 4:48 PM PAGER/CONTACT #: [facility] CNDSon 07-12-2021 CNDS HNO ID: [id number] Author: [place] MD Service: Hospital Medicine [...] GI team who initially recommended ERCP at [facility] but at this time planning to [...] 1.3. He was seen by infectious disease information services consultant today who recommended adding G6PD to [...] specialist. You were also seen by pain business management specialist while you are in the hospital. I have not added any pain medications due to near complete resolution of symptoms. You were seen by neurologist recently for the patient's symptoms. They will follow up as an outpatient also. Please follow-up with primary MD in 1 week Follow-up with transplant team at the earliest available appointment-parts coordinator has promised to set up an [...] identified Vision (more content not included)... Normal [facility] CONSULTon 07-12-2021 CONSULT HNO ID: [id number] Author: Latrell Cabello MD Service: Infectious Disease [...] Smoking status: Nev (more content not included)... [facility] CONSULT PROGon 07-12-2021 CONSULT PROG HNO ID: [id number] Author: Justin Glasgow PA-C Service: Pain Management Author Type: Physician Pulp Plant Supervisor Type: Consult Progress Note Filed: 07/12/2021 4:02 [...] Pain scores overnight between 4-8/10 per [employer] Radar Engineering Teacher. The patient's current inpatient analgesic regimen has [...] MPAS, PA-C July 12, 2021 4:01 PM [facility] CONSULT PROG HNO ID: [id number] Author: Spike Gandara MD Service: Nephrology Author Type: Physician Type: Consult Progress Note Filed: 07/12/2021 12:22 PM Note Text: [facility] NEPHROLOGY CONSULT PROGRESS NOTE SERVICE DATE: July [...] DATE: July 12, 2021 12:22 PM PHONE: [phone] FOR AFTER HOUR CONCERNS BETWEEN 7PM - 7AM CONTACT ON-CALL NEPHROLOGY STAFF Normal [facility] Hepatic Functn Panelon 07-12 Albumin [Mass/Vol] 3.0 g/dL Low 3.9-4.9 [facility] ALP [Catalytic activity/Vol] 292 U/L High 38-113 [facility] ALT [Catalytic activity/Vol] 44 U/L Normal 10-54 [facility] AST [Catalytic activity/Vol] 129 U/L High 14-40 [facility] Bilirubin [Mass/Vol] 1.6 mg/dL High 0.2-1.3 [facility] Bilirubin,Conjugate d 1.0 mg/dL High <0.2 [facility] Protein [Mass/Vol] 5.7 g/dL Low 6.3-8.0 [facility] NURSING PROGon 07-12-2021 NURSING PROG HNO ID: [id number] Author: Marcela Mcdaniel RN Service: Nursing Author Type: Registered Nurse Type: Nursing Progress Note Filed: 07/12/2021 1:03 AM Note Text: Nursing Progress Note Patient Name: hCuckie Villalta Patient Location: / Daily Note: Report received from BATOOL Nolan. Pt resting comfortably in bed. Will continue to monitor. This note was completed by: Marcela Mcdaniel Normal [facility] Tacrolimus / [id number] Tacrolimus / [id number] 7.7 ng/mL Normal 5.0-20.0 [facility] Comment on above: Result Comment: Thes [...] situation. Test performed by chemiluminescent immunoassay using [employer]. Performed By: #### F K506 ####[facility] [place], [place] [phone] Amylaseon 07-11-2021 Amylase [Catalytic activity/Vol] 59 U/L Normal 30-104 [facility] Basic Metabolic Panlon 07-11 Anion gap [Moles/Vol] 10 mmol/L Normal 9-18 [facility] Calcium [Mass/Vol] 8.5 mg/dL Normal 8.5-10.2 [facility] Chloride [Moles/Vol] 103 mmol/L Normal 97-105 [facility] CO2 [Moles/Vol] 22 mmol/L Normal 22-30 [facility] Creatinine [Mass/Vol] 2.77 mg/dL High 0.73-1.22 [facility] eGFR- Amer. 32 Normal [facility] eGFR-All Other Races 26 . Normal [facility] Comment on above: Result Comment: eGFR [...] [email or web address]_[email or web address]. Glucose [Mass/Vol] 122 mg/dL High 74-99 [facility] Comment on above: Result Comment: The [place] Diabetes Association (ADA) provides guidance for cutoff [...] Standards of Medical Care in Diabetes 2016, [place] Diabetes Association. Diabetes Care. 2016.39(Suppl 1). Potassium [Moles/Vol] 3.5 mmol/L Low 3.7-5.1 [facility] Sodium [Moles/Vol] 135 mmol/L Low 136-144 [facility] Urea nitrogen [Mass/Vol] 12 mg/dL Normal 9-24 [facility] CONSULT PROGon 07-11-2021 CONSULT PROG HNO ID: [id number] Author: Spike Gandara MD Service: Nephrology Author Type: Physician Type: Consult Progress Note Filed: 07/11/2021 1:06 PM Note Text: [facility] NEPHROLOGY CONSULT PROGRESS NOTE SERVICE DATE: July [...] stenosis, seem by GI, pending transfer to [facility] ? Hemochromatosis s/p OLT on immunosuppression [...] DATE: July 11, 2021 1:03 PM PHONE: [phone] FOR AFTER HOUR CONCERNS BETWEEN 7PM - 7AM CONTACT ON-CALL NEPHROLOGY STAFF [facility] CONSULT PROG HNO ID: [id number] Author: Justin Glasgow PA-C Service: Pain Management Author Type: Physician Pulp Plant Supervisor Type: Consult Progress Note Filed: 07/11/2021 11:02 [...] Pain scores overnight between 4-9/10 per [employer] Engineering Teacher. The patient's current inpatient analgesic regimen includes: [...] hypoactive x 4 quadrants. No masses, organomegaly Jusitn Glasgow MPAS, PA-C July 11, 2021 11:02 AM Normal [facility] Amylaseon 07-10-2021 Amylase [Catalytic activity/Vol] 51 U/L Normal 30-104 [facility] Basic Metabolic Panlon 07-10 Anion gap [Moles/Vol] 10 mmol/L Normal 9-18 [facility] Calcium [Mass/Vol] 8.5 mg/dL Normal 8.5-10.2 [facility] Chloride [Moles/Vol] 106 mmol/L High 97-105 [facility] CO2 [Moles/Vol] 21 mmol/L Low 22-30 [facility] Creatinine [Mass/Vol] 2.80 mg/dL High 0.73-1.22 [facility] eGFR- Amer. 31 Normal [facility] eGFR-All Other Races 26 . Normal [facility] Comment on above: Result Comment: eGFR [...] [email or web address]/gfr_[email or web address]. Glucose [Mass/Vol] 126 mg/dL High 74-99 [facility] Comment on above: Result Comment: The [place] Diabetes Association (ADA) provides guidance for cutoff [...] Standards of Medical Care in Diabetes 2016, [place] Diabetes Association. Diabetes Care. 2016.39(Suppl 1). Potassium [Moles/Vol] 3.5 mmol/L Low 3.7-5.1 [facility] Sodium [Moles/Vol] 137 mmol/L Normal 136-144 [facility] Urea nitrogen [Mass/Vol] 13 mg/dL Normal 9-24 [facility] CONSULT PROGon 07-10-2021 CONSULT PROG HNO ID: [id number] Author: Justin Glasgow PA-C Service: Pain Management Author Type: Physician Pulp Plant Supervisor Type: Consult Progress Note Filed: 07/10/2021 12:38 [...] Pain scores overnight between 4-7/10 per [employer] Teacher. The patient's current inpatient analgesic regimen includes: [...] Garrido, PA-C July 10, 2021 12:38 PM [facility] CONSULT PROG HNO ID: [id number] Author: Spike Gandara MD Service: Nephrology Author Type: Physician Type: Consult Progress Note Filed: 07/10/2021 11:42 AM Note Text: [facility] NEPHROLOGY CONSULT PROGRESS NOTE SERVICE DATE: July [...] stenosis, seem by GI, pending transfer to [facility] ? Hemochromatosis s/p OLT on immunosuppression [...] DATE: July 10, 2021 11:41 AM PHONE: [phone] FOR AFTER HOUR CONCERNS BETWEEN 7PM - 7AM CONTACT ON-CALL NEPHROLOGY STAFF [facility] Tacrolimus / [id number] Tacrolimus / [id number] 9.3 ng/mL Normal 5.0-20.0 [facility] Comment on above: Result Comment: Thes [...] situation. Test performed by chemiluminescent immunoassay using [employer]. Performed By: #### F K506 ####[facility] [address] [place], [place] [phone] [facility] 07-09-2021 [facility] HNO ID: [id number] Author: RT Kristyn(R) Service: ? Author Type: [...] Kristyn(R) July 08, 2021 11:17 PM Normal [facility] CASE MANAGEMon 07-09-2021 CASE MANAGEM HNO ID: [id number] Author: Nanette Dangelo RN Service: ? Author [...] 2021 TIME: 6:19 PM PAGER/CONTACT #: Normal [facility] CBC and Differentialon 07-09 Abs Baso 0.00 k/uL Normal <0.11 [facility] Abs [place] 1.28 k/uL High <0.87 [facility] Abs Neut 7.42 k/uL Normal 1.45-7.50 [facility] ANC(includeSEG+BAND ) 7.42 k/uL Normal [facility] Anisocytosis Ql (Bld) Present Normal [facility] Basophils/100 WBC (Bld) 0.0 % Normal [facility] DTYPE Manual Diff Normal [facility] Eosinophils (Bld) [#/Vol] 0.00 10*3/uL Normal <0.46 [facility] Eosinophils/100 WBC (Bld) 0.0 % Normal [facility] Erythrocyte distribution width (RBC) [Ratio] 15.6 % High 11.5-15.0 [facility] Hematocrit (Bld) [Volume fraction] 26.3 % Low 39.0-51.0 [facility] Hemoglobin (Bld) [Mass/Vol] 9.1 g/dL Low 13.0-17.0 [facility] Left Shift Present Normal [facility] Lymphocytes (Bld) [#/Vol] 0.37 10*3/uL Low 1.00-4.00 [facility] Lymphocytes/100 WBC (Bld) 4.0 % Normal [facility] MCH 35.0 pG High 26.0-34.0 [facility] MCHC (RBC) [Mass/Vol] 34.6 g/dL Normal 30.5-36.0 [facility] MCV (RBC) [Entitic vol] 101.2 fL High 80.0-100.0 [facility] Monocytes/100 WBC (Bld) 14.0 % Normal [facility] Myelo% 1.0 % Normal [facility] Neutrophils/100 WBC (Bld) 81.0 % Normal [facility] Platelet Estimate Platelet estimate decreased Normal [facility] Platelet mean volume (Bld) [Entitic vol] 12.3 fL Normal 9.0-12.7 [facility] Platelets (Bld) [#/Vol] 59 10*3/uL Low 150-400 [facility] Polychromasia Slight Normal [facility] RBC (Bld) [#/Vol] 2.60 10*6/uL Low 4.20-6.00 [facility] WBC (Bld) [#/Vol] 9.16 10*3/uL Normal 3.70-11.00 [facility] CONSULT PROGon 07-09-2021 CONSULT PROG HNO ID: [id number] Author: Justin Glasgow PA-C Service: Pain Management Author Type: Physician Pulp Plant Supervisor Type: Consult Progress Note Filed: 07/09/2021 3:41 [...] Pain scores overnight between 4-8/10 per [employer] Teacher. The patient's current inpatient analgesic regimen includes: [...] Garrido, PA-C July 09, 2021 3:41 PM [facility] CONSULT PROG HNO ID: [id number] Author: Ana Cotton APRN.HERNANDEZ Service: Gastroenterology Author [...] Pt continues to wait for bed at [facility], pt will likely still be inpatient for few days while monitoring kidney function and tacro levels if does not get a bed still at that time and tolerating diet can likely get scheduled for ERCP at [facility] main as outpatient Will continue to monitor peripherally Normal [facility] CONSULT PROG HNO ID: [id number] Author: Spike Gandara MD Service: Nephrology Author Type: Physician Type: Consult Progress Note Filed: 07/09/2021 12:32 PM Note Text: [facility] NEPHROLOGY CONSULT PROGRESS NOTE SERVICE DATE: July [...] stenosis, seem by GI, pending transfer [facility] ? Hemochromatosis s/p OLT on immunosuppression [...] DATE: July 09, 2021 11:39 AM PHONE: [phone] FOR AFTER HOUR CONCERNS BETWEEN 7PM - 7AM CONTACT ON-CALL NEPHROLOGY STAFF [facility] CONSULT PROG HNO ID: [id number] Author: Valencia Noguera [facility] Service: Pharmacy Author Type: Pharmacist Type: [...] reviewed the above information with the pharmacy technician trainee/resident or telecom field technician and agree with the assessment/plan described. Changes or additions to the note are indicated by italics and . Valencia Noguera, Pharmacist 07/09/2021 7:54 AM Ext: [phone] [facility] CONSULT PROG HNO ID: [id number] Author: Lei Mckoy [facility] Service: Pharmacy Author Type: Pharmacist Type: [...] 18.6 07/07/2021 2002 37.3 (H) Lei Mckoy, [facility] Normal [facility] Comp Metabolic Panelon 07-09 Albumin [Mass/Vol] 2.9 g/dL Low 3.9-4.9 [facility] ALP [Catalytic activity/Vol] 63 U/L Normal 38-113 [facility] ALT [Catalytic activity/Vol] 16 U/L Normal 10-54 [facility] Anion gap [Moles/Vol] 8 mmol/L Low 9-18 [facility] AST [Catalytic activity/Vol] 17 U/L Normal 14-40 [facility] Bilirubin [Mass/Vol] 1.0 mg/dL Normal 0.2-1.3 [facility] Calcium [Mass/Vol] 8.0 mg/dL Low 8.5-10.2 [facility] Chloride [Moles/Vol] 109 mmol/L High 97-105 [facility] CO2 [Moles/Vol] 20 mmol/L Low 22-30 [facility] Creatinine [Mass/Vol] 2.83 mg/dL High 0.73-1.22 [facility] eGFR- Amer. 31 Normal [facility] eGFR-All Other Races 26 . Normal [facility] Comment on above: Result Comment: eGFR [...] [email or web address]. Glucose [Mass/Vol] 174 mg/dL High 74-99 [facility] Comment on above: Result Comment: The [place] Diabetes Association (ADA) provides guidance for cutoff [...] Standards of Medical Care in Diabetes 2016, [place] Diabetes Association. Diabetes Care. 2016.39(Suppl 1). Potassium [Moles/Vol] 3.8 mmol/L Normal 3.7-5.1 [facility] Protein [Mass/Vol] 5.1 g/dL Low 6.3-8.0 [facility] Sodium [Moles/Vol] 137 mmol/L Normal 136-144 [facility] Urea nitrogen [Mass/Vol] 16 mg/dL Normal 9-24 [facility] MRI BRAIN WO IVCONon 12-14-2 021 MRI BRAIN WO IVCON * * *Final Report* * * DATE OF EXAM: Jul 08 2021 11:28PM [facility] 0294 - MRI BRAIN WO IVCON / [...] if there is concern for demyelinating disease. Budget Examiner: GUILLE Transcribe Date/Time: Jul 09 2021 2:02A Dictated by : CARLOS ALEJANDRA MD This examination was interpreted and the report reviewed and electronically signed by: CARLOS ALEJANDRA MD on Jul 09 2021 2:09AM EST [id number] Normal [facility] Magnesiumon 07-09-2021 Magnesium [Mass/Vol] 1.8 mg/dL Normal 1.7-2.3 [facility] NURSING PROGon 07-09-2021 NURSING PROG HNO ID: [id number] Author: Demetrice Chacon RN Service: Nursing Author Type: Registered Nurse Type: Nursing Progress Note Filed: 07/09/2021 6:19 AM Note Text: Nursing Progress Note Patient Name: Chuckie Villalta Patient Location: [place] [address] Daily Note:alert and oriented, independent with mobility, [...] note was completed by: Demetrice Chacon Normal [facility] Protein/Creatinine Ratioon 1 09-09-2020 Creatinine,Urine,Ra n 68.3 mg/dL Normal 20-300 [facility] Comment on above: Performed By: #### P RATIO ####[facility] [place], [place] [phone] Protein (U) [Mass/Vol] 7 mg/dL Normal 0-20 [facility] Comment on above: Performed By: #### P RATIO ####[address] [phone] Protein/Creatinine Ratio 0.1 Normal <0.2 [facility] Comment on above: Performed By: #### P RATIO ####[address] [phone] Urinalysis with Microscopico n 07-09-2021 Bilirubin, Urine Negative Normal Negative [facility] Cast SEE COMMENT Normal 0 [facility] Comment on above: Result Comment: 0 Clarity (U) Clear Normal Clear [facility] Color (U) Yellow Normal Yellow [facility] Glucose Ql (U) 1+ mg/dL Critically abnormal Negative [facility] Hemoglobin/Blood,Ur Negative Normal Negative [facility] Ketones Ql (U) Negative Normal Negative [facility] Leukest Negative Normal Negative [facility] Nitrite Ql (U) Negative Normal Negative [facility] pH (U) 5.5 [pH] Normal 5.0-8.0 [facility] Protein, Urine Trace Critically abnormal Negative [facility] RBC 0-3 Normal 0-3 [facility] Specific [place], Ur 1.010 Normal 1.005-1.030 [facility] Urobilinogen Qn (U) 0.2 {Andrea'U}/dL Normal 0.2-1.0 [facility] WBC 0-5 Normal 0-5 [facility] ALLIED HEALTHon 07-08-2021 ALLIED HEALTH HNO ID: [id number] Author: Joshua Moran Service: Spiritual Care Author Type: ? Type: Allied Health Filed: 07/08/2021 1:06 PM Note Text: SPIRITUAL CARE PROGRESS NOTE SERVICE DATE: 07/08/2021 SERVICE TIME: 12:45PM Pt listed as Judaism Spiritism in [facility], and he shared that he and his family attend the [place] in [place], [place]; pt in good spirits but drowsy at the time of visit; shared that he has undergone a liver transplant, and is now dealing with pancreatitis; provided him with a daily devotional for his use, and offered a blessing bedside; no follow-up planned unless requested. To contact the Spiritual Care Department: Please call Ext [phone] SIGNATURE: Joshua Moran PATIENT NAME: Chuckie Villalta DATE: July 08, 2021 TIME: 1:04 PM PAGER/CONTACT #: [phone] Normal [facility] CBC and Differentialon 07-08 Abs Baso 0.00 k/uL Normal <0.11 [facility] Abs [place] 1.25 k/uL High <0.87 [facility] Abs Neut 6.26 k/uL Normal 1.45-7.50 [facility] ANC(includeSEG+BAND ) 6.26 k/uL Normal [facility] Anisocytosis Ql (Bld) Present Normal [facility] Basophils/100 WBC (Bld) 0.0 % Normal [facility] DTYPE Manual Diff Normal [facility] Eosinophils (Bld) [#/Vol] 0.00 10*3/uL Normal <0.46 [facility] Eosinophils/100 WBC (Bld) 0.0 % Normal [facility] Erythrocyte distribution width (RBC) [Ratio] 15.7 % High 11.5-15.0 [facility] Hematocrit (Bld) [Volume fraction] 26.0 % Low 39.0-51.0 [facility] Hemoglobin (Bld) [Mass/Vol] 9.0 g/dL Low 13.0-17.0 [facility] Left Shift Present Normal [facility] Lymphocytes (Bld) [#/Vol] 0.23 10*3/uL Low 1.00-4.00 [facility] Lymphocytes/100 WBC (Bld) 3.0 % Normal [facility] MCH 35.4 pG High 26.0-34.0 [facility] MCHC (RBC) [Mass/Vol] 34.6 g/dL Normal 30.5-36.0 [facility] MCV (RBC) [Entitic vol] 102.4 fL High 80.0-100.0 [facility] Monocytes/100 WBC (Bld) 16.0 % Normal [facility] Myelo% 1.0 % Normal [facility] Neutrophils/100 WBC (Bld) 80.0 % Normal [facility] Platelet Estimate Platelet estimate decreased Normal [facility] Platelet mean volume (Bld) [Entitic vol] 12.3 fL Normal 9.0-12.7 [facility] Platelets (Bld) [#/Vol] 39 10*3/uL Low 150-400 [facility] Polychromasia Slight Normal [facility] RBC (Bld) [#/Vol] 2.54 10*6/uL Low 4.20-6.00 [facility] WBC (Bld) [#/Vol] 7.82 10*3/uL Normal 3.70-11.00 [facility] CONSULTon 07-08-2021 CONSULT HNO ID: [id number] Author: Justin Glasgow PA-C Service: Pain Management Author Type: Physician Pulp Plant Supervisor Type: Consults Filed: 07/08/2021 2:06 PM Note Text: PAIN MANAGEMENT CONSULT -- [facility] PATIENT NAME: Chuckie Villalta DATE of SERVICE: [...] is consulted RE: acute pancreatitis, on fentanyl seo manager by Dr. Jolynn Jaquez and Lisseth Raymond [...] (PF) 4 mg injection (ZOFRAN) - fentaNYL AUTOMOBILE TESTER 20 mcg/mL in NaCl 0.9% 100 mL [...] 167* TP (more content not included)... Normal [facility] CONSULT HNO ID: [id number] Author: Spike Gandara MD Service: Nephrology Author Type: Physician Type: Consults Filed: 07/08/2021 2:05 PM Note Text: [facility]PHROLOGY [facility] SERVICE DATE: [...] injection (ZOF (more content not included)... Normal [facility] CONSULT PROGon 07-08-2021 CONSULT PROG HNO ID: [id number] Author: Ana Cotton APRN.APPLICATION DEVELOPMENT PROJECT MANAGER Service: Gastroenterology Author Type: Nurse Practitioner [...] Splenomegaly. 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 Will discuss with staff and SM Dr. Barr as well. Normal [facility] Calcium, Ionizedon Calcium, Ionized 1.12 mmol/L Normal 1.08-1.30 [facility] Comp Metabolic Panelon 07-08 Albumin [Mass/Vol] 2.9 g/dL Low 3.9-4.9 [facility] ALP [Catalytic activity/Vol] 60 U/L Normal 38-113 [facility] ALT [Catalytic activity/Vol] 22 U/L Normal 10-54 [facility] Anion gap [Moles/Vol] 8 mmol/L Low 9-18 [facility] AST [Catalytic activity/Vol] 38 U/L Normal 14-40 [facility] Bilirubin [Mass/Vol] 1.6 mg/dL High 0.2-1.3 [facility] Calcium [Mass/Vol] 8.0 mg/dL Low 8.5-10.2 [facility] Chloride [Moles/Vol] 106 mmol/L High 97-105 [facility] CO2 [Moles/Vol] 18 mmol/L Low 22-30 [facility] Creatinine [Mass/Vol] 2.34 mg/dL High 0.73-1.22 [facility] eGFR- Amer. 39 Normal [facility] eGFR-All Other Races 32 . Normal [facility] Comment on above: Result Comment: eGFR [...] [email or web address]. Glucose [Mass/Vol] 107 mg/dL High 74-99 [facility] Comment on above: Result Comment: The [place] Diabetes Association (ADA) provides guidance for cutoff [...] Standards of Medical Care in Diabetes 2016, [place] Diabetes Association. Diabetes Care. 2016.39(Suppl 1). Potassium [Moles/Vol] 3.9 mmol/L Normal 3.7-5.1 [facility] Protein [Mass/Vol] 4.9 g/dL Low 6.3-8.0 [facility] Sodium [Moles/Vol] 132 mmol/L Low 136-144 [facility] Urea nitrogen [Mass/Vol] 17 mg/dL Normal 9-24 [facility] Lipaseon 07-08-2021 Lipase [Catalytic activity/Vol] 235 U/L High 16-61 [facility] Magnesiumon 07-08-2021 Magnesium [Mass/Vol] 1.4 mg/dL Low 1.7-2.3 [facility] Tacrolimus / [id number] Tacrolimus / [id number] 23.3 ng/mL High 5.0-20.0 [facility] Comment on above: Result Comment: Thes [...] situation. Test performed by chemiluminescent immunoassay using [employer]. Performed By: #### F K506 ####[facility] [place], [place] [phone] US ABD RIGHT UPPER QUADRANTo n 07-08-2021 US ABD RIGHT UPPER QUADRANT * * *Final Report* * * DATE OF EXAM: Jul 08 2021 12:08PM [facility] 1032 - US ABD RIGHT UPPER [...] 5. Trace ascites in the upper abdomen. Budget Examiner: [facility] Transcribe Date/Time: Jul 08 2021 12:28P Dictated by : ROCIO MANZO MD This examination was interpreted and the report reviewed and electronically signed by: ROCIO MANZO MD on Jul 08 2021 12:32PM EST [id number] Normal [facility] US ABD SPLEEN -NBon 07-08-20 US ABD SPLEEN -NB * * *Final Report* * * DATE OF EXAM: Jul 08 2021 12:08PM [facility] 1232 - US ABD SPLEEN -NB [...] 5. Trace ascites in the upper abdomen. Budget Examiner: [facility] Transcribe Date/Time: Jul 08 2021 12:28P Dictated by : ROCIO MANZO MD This examination was interpreted and the report reviewed and electronically signed by: ROCIO MANZO MD on Jul 08 2021 12:32PM EST [id number] Normal [facility] Vancomycinon 07-08-2021 Vancomycin 18.6 ug/mL Normal 10.0-20.0 [facility] Comment on above: Result Comment: Refe rence ranges and high/low indicator flags are provided as general guidelines only. The treating physician must determine appropriate target levels/dosing based on the specific clinical situation. CBCon 07-07-2021 Absolute nRBC 0.03 k/uL High <0.01 [facility] Erythrocyte distribution width (RBC) [Ratio] 15.7 % High 11.5-15.0 [facility] Hematocrit (Bld) [Volume fraction] 29.1 % Low 39.0-51.0 [facility] Hemoglobin (Bld) [Mass/Vol] 10.5 g/dL Low 13.0-17.0 [facility] MCH 36.2 pG High 26.0-34.0 [facility] MCHC (RBC) [Mass/Vol] 36.1 g/dL High 30.5-36.0 [facility] MCV (RBC) [Entitic vol] 100.3 fL High 80.0-100.0 [facility] Platelet mean volume (Bld) [Entitic vol] 11.8 fL Normal 9.0-12.7 [facility] Platelets (Bld) [#/Vol] 45 10*3/uL Low 150-400 [facility] RBC (Bld) [#/Vol] 2.90 10*6/uL Low 4.20-6.00 [facility] WBC (Bld) [#/Vol] 9.23 10*3/uL Normal 3.70-11.00 [facility] CONSULT PROGon 07-07-2021 CONSULT PROG HNO ID: [id number] Author: Valencia Noguera RPh Service: Pharmacy Author [...] have any questions, please contact pharmacy at [phone]. Age: [age] year old Allergies: ALLERGIES Allergen [...] 07/07/20212001 37.3 (H) Valencia Noguera, RPh Normal [facility] Comp Metabolic Panelon 07-07 Albumin [Mass/Vol] 3.0 g/dL Low 3.9-4.9 [facility] ALP [Catalytic activity/Vol] 70 U/L Normal 38-113 [facility] ALT [Catalytic activity/Vol] 41 U/L Normal 10-54 [facility] Anion gap [Moles/Vol] 9 mmol/L Normal 9-18 [facility] AST [Catalytic activity/Vol] 131 U/L High 14-40 [facility] Bilirubin [Mass/Vol] 4.9 mg/dL High 0.2-1.3 [facility] Calcium [Mass/Vol] 7.9 mg/dL Low 8.5-10.2 [facility] Chloride [Moles/Vol] 105 mmol/L Normal 97-105 [facility] CO2 [Moles/Vol] 18 mmol/L Low 22-30 [facility] Creatinine [Mass/Vol] 1.63 mg/dL High 0.73-1.22 [facility] eGFR- Amer. 59 Normal [facility] eGFR-All Other Races 48 . Normal [facility] Comment on above: Result Comment: eGFR [...] [email or web address]. Glucose [Mass/Vol] 110 mg/dL High 74-99 [facility] Comment on above: Result Comment: The [place] Diabetes Association (ADA) provides guidance for cutoff [...] Standards of Medical Care in Diabetes 2016, [place] Diabetes Association. Diabetes Care. 2016.39(Suppl 1). Potassium [Moles/Vol] 4.1 mmol/L Normal 3.7-5.1 [facility] Protein [Mass/Vol] 5.0 g/dL Low 6.3-8.0 [facility] Sodium [Moles/Vol] 132 mmol/L Low 136-144 [facility] Urea nitrogen [Mass/Vol] 15 mg/dL Normal 9-24 [facility] NURSING PROGon 07-07-2021 NURSING PROG HNO ID: [id number] Author: Preethi Slater RN Service: Nursing Author Type: Registered Nurse Type: Nursing Progress Note Filed: 07/06/2021 11:25 PM Note Text: Nursing Progress Note Patient Name: Chuckie Villalta Patient Location[place] [address] [address] Transfer Note: Patient transferred from [facility] Room [address] [place] [address] by bed in stable condition with IV fluids, IV antibiotics, and a AUTOMOBILE TESTER pump with on demand fentanyl. Vital signs obtained, patient oriented to room. Call light within reach. This note was completed by: Preethi Slater RN Normal [facility] NURSING PROG HNO ID: [id number] Author: Delilah Le RN Service: Nursing Author Type: Registered Nurse Type: Nursing Progress Note Filed: 07/06/2021 10:24 PM Note Text: Report called to room 414 Mare RN patient aware of tranfer. Belongings with patient , transferred juanpablo new room with RN in bed, vs stable. Normal [facility] Vancomycinon 07-07-2021 Vancomycin 37.3 ug/mL High 10.0-20.0 [facility] Comment on above: Result Comment: Refe rence ranges and high/low indicator flags are provided as general guidelines only. The treating physician must determine appropriate target levels/dosing based on the specific clinical situation. CASE MGT INIT SANTOSESon 2020 [facility] H[facility]: [id number] Author: Mariluz Salamanca RN Service: Nursing Author Type: Registered Nurse Type: Care Mgt Initial Assessment Filed: 07/06/2021 2:04 PM Note Text: CARE MANAGEMENT: ASSESSMENT AND DISCHARGE PLAN SERVICE DATE: July 06, 2021 SERVICE TIME: 1:59 PM PRIMARY CARE PHYSICIAN: Luis Abdalla DO ADMISSION STATUS: Inpatient MEDICAL: [facility] MEDICAID Health Insurance: [facility] ([facility] Medicaid) Last Discharge Date: 02/13/20 Is this Within the Past 30 days? Advance Directive: Current Advance Directive: Health Care Power of Batt Machine Operator In Chart: Yes Up To Date [...] Information Primary Emergency Contact: Remedios Villalta Address: [address] [place] [address] Mobile Relation: Spouse Supportive Patient Contact:: Yes Contact Resources: Family;Significant Other FREEDOM OF CHOICE EXPLAINED: [place] of Choice Given: No Reason Not Given: [...] 06, 2021 TIME: 1:59 PM PAGER/CONTACT #: [phone] Normal [facility] CBC and Differentialon 07-06 Abs Baso 0.00 k/uL Normal <0.11 [facility] Abs [place] 0.64 k/uL Normal <0.87 [facility] Abs Neut 8.13 k/uL High 1.45-7.50 [facility] ANC(includeSEG+BAND ) 8.13 k/uL Normal [facility] Basophils/100 WBC (Bld) 0.0 % Normal [facility] DTYPE Manual Diff Normal [facility] Eosinophils (Bld) [#/Vol] 0.09 10*3/uL Normal <0.46 [facility] Eosinophils/100 WBC (Bld) 1.0 % Normal [facility] Erythrocyte distribution width (RBC) [Ratio] 14.6 % Normal 11.5-15.0 [facility] Hematocrit (Bld) [Volume fraction] 30.9 % Low 39.0-51.0 [facility] Hemoglobin (Bld) [Mass/Vol] 11.4 g/dL Low 13.0-17.0 [facility] Left Shift Present Normal [facility] Lymphocytes (Bld) [#/Vol] 0.27 10*3/uL Low 1.00-4.00 [facility] Lymphocytes/100 WBC (Bld) 3.0 % Normal [facility] MCH 35.0 pG High 26.0-34.0 [facility] MCHC (RBC) [Mass/Vol] 36.9 g/dL High 30.5-36.0 [facility] MCV (RBC) [Entitic vol] 94.8 fL Normal 80.0-100.0 [facility] Monocytes/100 WBC (Bld) 7.0 % Normal [facility] Neutrophils/100 WBC (Bld) 89.0 % Normal [facility] Platelet Estimate Platelet estimate decreased Normal [facility] Platelet mean volume (Bld) [Entitic vol] 11.3 fL Normal 9.0-12.7 [facility] Platelets (Bld) [#/Vol] 63 10*3/uL Low 150-400 [facility] RBC (Bld) [#/Vol] 3.26 10*6/uL Low 4.20-6.00 [facility] Red Cell Morph SEE COMMENT Normal [facility] Comment on above: Result Comment: Unre markable WBC (Bld) [#/Vol] 9.13 10*3/uL Normal 3.70-11.00 [facility] CONSULTon 07-06-2021 CONSULT HNO ID: [id number] Author: Og Gibbs MD Service: Gastroenterology Author [...] and hi s transferring the [facility] giving his complex medica history and the need for repeated ERCP Dr. Wilburn reviewed the case too and agreed to transfer the patient to for further care Normal [facility] CONSULT PROGon 07-06-2021 CONSULT PROG HNO ID: [id number] Author: Pearl Mann [facility] Service: Pharmacy Author Type: Pharmacist Type: [...] any questions, please contact Pharmacy at ex [phone]. Age: [age] year old Allergies: ALLERGIES Allergen [...] Levels: No results found for: CHIDI Mann [facility] Normal [facility] Comp Metabolic Panelon 07-06 Albumin [Mass/Vol] 3.5 g/dL Low 3.9-4.9 [facility] ALP [Catalytic activity/Vol] 60 U/L Normal 38-113 [facility] ALT [Catalytic activity/Vol] 60 U/L High 10-54 [facility] Anion gap [Moles/Vol] 15 mmol/L Normal 9-18 [facility] AST [Catalytic activity/Vol] 361 U/L High 14-40 [facility] Bilirubin [Mass/Vol] 6.6 mg/dL High 0.2-1.3 [facility] Calcium [Mass/Vol] 7.8 mg/dL Low 8.5-10.2 [facility] Chloride [Moles/Vol] 102 mmol/L Normal 97-105 [facility] CO2 [Moles/Vol] 15 mmol/L Low 22-30 [facility] Creatinine [Mass/Vol] 1.73 mg/dL High 0.73-1.22 [facility] eGFR- Amer. 55 Normal [facility] eGFR-All Other Races 45 . Normal [facility] Comment on above: Result Comment: eGFR [...] [email or web address]/gfr_calculator. Glucose [Mass/Vol] 129 mg/dL High 74-99 [facility] Comment on above: Result Comment: The [place] Diabetes Association (ADA) provides guidance for cutoff [...] Standards of Medical Care in Diabetes 2016, [place] Diabetes Association. Diabetes Care. 2016.39(Suppl 1). Potassium [Moles/Vol] 4.3 mmol/L Normal 3.7-5.1 [facility] Protein [Mass/Vol] 5.2 g/dL Low 6.3-8.0 [facility] Sodium [Moles/Vol] 132 mmol/L Low 136-144 [facility] Urea nitrogen [Mass/Vol] 17 mg/dL Normal 9-24 [facility] ED NOTEon 07-06-2021 ED NOTE HNO ID: [id number] Author: Marcela Corley RN Service: Nursing Author Type: Registered Nurse Type: ED Notes Filed: 07/06/2021 4:57 AM Note Text: Report to Loraine RENAE. Normal [facility] ED NOTE HNO ID: [id number] Author: Marcela Corley RN Service: Nursing Author Type: Registered Nurse Type: ED Notes Filed: 07/06/2021 4:51 AM Note Text: Pt resting in bed at this time. Call light within reach, will continue to monitor. Normal [facility] Expedited [id number] 07-06-20 21 SARS-CoV-2 (COVID-19) RNA NOLBERTO+probe Ql (Unsp spec) UPPER RESPIRATORY TRACT SWAB Normal [facility] SARS-CoV-2 (COVID-19) RNA NOLBERTO+probe Ql (Unsp spec) Negative for COVID19 (SARS CoV2) by RT-PCR or equivalent method. Normal Negative for COVID19 (SARS CoV2) by RT-PCR or equivalent method. [facility] Comment on above: Result Comment: This test has been authorized by FDA under an Emergency Use Authorization (EUA). Lipaseon 07-06-2021 Lipase [Catalytic activity/Vol] 1496 U/L High 16-61 [facility] Magnesiumon 07-06-2021 Magnesium [Mass/Vol] 1.2 mg/dL Low 1.7-2.3 [facility] NURSING PROGon 07-06-2021 NURSING PROG HNO ID: [id number] Author: Loraine Ya RN Service: Nursing Author Type: Registered Nurse Type: Nursing Progress Note Filed: 07/06/2021 6:31 AM Note Text: Nursing Progress Note Patient Name: Chuckie Villalta Patient Location: [place] [address] Transfer Note: Patient transferred into room/unit 426 in stable condition. Actions taken: Report given by Marcela RENAE. No futher actions taken at this time. Will continue to monitor and check with patient. Patient belongings with patient oriented to room, answered questions, denies needs at this time. This note was completed by: Loraine Ya [facility] XR CHEST 1V FRONTAL PORTon [...] are detected. IMPRESSION: No acute radiographic abnormality. Budget Examiner: [facility] Transcribe Date/Time: Jul 05 2021 11:38P Dictated by : RIK YUN MD This examination was interpreted and the report reviewed and electronically signed by: RIK YUN MD on Jul 05 2021 11:39PM EST [id number] [facility] APTTon 07-05-2021 aPTT Coag (Bld) [Time] 22.6 s Low 23.0-32.4 [facility] Comment on above: Result Comment: Unfr [...] Center. Acetaminophenon 07-05-2021 Acetaminophen [Mass/Vol] ug/mL Low - [facility] Comment on above: Result Comment: Toxi c > 150 ug/mL 4 hours post ingestion The Ginger Akins nomogram can be used to estimate the probability of hepatotoxicity via the relationship of plasma acetaminophen concentration to the post ingestion interval. (Gareth. Pediatrics. 1975. 55:871 to 876 and Ginger et al. Arch E Business Specialist Med. 1981. 141:380 to 385). Reference ranges and high/low indicator flags are provided as general guidelines only. The treating physician must determine appropriate target levels/dosing based on the specific clinical situation. Blood Cultureon 07-05-2021 Bacteria identified Cx Nom (Bld) Culture Result - No growth 5 days Normal [facility] Comment on above: Performed By: #### B LCUL ####[address] [phone] CBC and Differentialon 07-05 Abs Baso 0.00 k/uL Normal <0.11 [facility] Comment on above: Performed By: #### C BCDIF ####[address] [phone] Abs [place] 0.97 k/uL High <0.87 [facility] Comment on above: Performed By: #### C BCDIF ####[address] [phone] Abs Neut 28.35 k/uL High 1.45-7.50 [facility] Comment on above: Performed By: #### C BCDIF ####[place] [phone] Anisocytosis Ql (Bld) Present Normal [facility] Comment on above: Performed By: #### C BCDIF ####[place] [phone] Basophils/100 WBC (Bld) 0.0 % Normal [facility] Comment on above: Performed By: #### C BCDIF ####[place] [phone] DTYPE Manual Diff Normal [facility] Comment on above: Performed By: #### C BCDIF ####[place] [phone] Eosinophils (Bld) [#/Vol] 0.00 10*3/uL Normal <0.46 [facility] Comment on above: Performed By: #### C BCDIF ####[place] [phone] Eosinophils/100 WBC (Bld) 0.0 % Normal [facility] Comment on above: Performed By: #### C BCDIF ####[place] [phone] Erythrocyte distribution width (RBC) [Ratio] 15.1 % High 11.5-15.0 [facility] Comment on above: Performed By: #### C BCDIF ####[place] [phone] Hematocrit (Bld) [Volume fraction] 43.2 % Normal 39.0-51.0 [facility] Comment on above: Performed By: #### C BCDIF ####[place] [phone] Hemoglobin (Bld) [Mass/Vol] 16.2 g/dL Normal 13.0-17.0 [facility] Comment on above: Performed By: #### C BCDIF ####[address] [phone] Lymphocytes (Bld) [#/Vol] 0.00 10*3/uL Low 1.00-4.00 [facility] Comment on above: Performed By: #### C BCDIF ####[address] [phone] Lymphocytes/100 WBC (Bld) 0.0 % Normal [facility] Comment on above: Performed By: #### C BCDIF ####[place] [phone] MCH 35.1 pG High 26.0-34.0 [facility] Comment on above: Performed By: #### C BCDIF ####[address] [phone] MCHC (RBC) [Mass/Vol] 37.5 g/dL High 30.5-36.0 [facility] Comment on above: Performed By: #### C BCDIF ####[place] [phone] MCV (RBC) [Entitic vol] 93.7 fL Normal 80.0-100.0 [facility] Comment on above: Performed By: #### C BCDIF ####[place] [phone] Monocytes/100 WBC (Bld) 3.3 % Normal [facility] Comment on above: Performed By: #### C BCDIF ####[address] [phone] Neutrophils/100 WBC (Bld) 96.7 % [facility] Comment on above: Performed By: #### C BCDIF ####[address] [phone] Platelet Estimate Platelet estimate adequate Normal [facility] Comment on above: Performed By: #### C BCDIF ####[facility] [place], [place] [phone] Platelet mean volume (Bld) [Entitic vol] 11.6 fL Normal 9.0-12.7 [facility] Comment on above: Performed By: #### C BCDIF ####[facility] [place], [place] [phone] Platelets (Bld) [#/Vol] 173 10*3/uL Normal 150-400 [facility] Comment on above: Performed By: #### C BCDIF ####[facility] [place], [place] [phone] Polychromasia Slight Normal [facility] Comment on above: Performed By: #### C BCDIF ####[address] [phone] RBC (Bld) [#/Vol] 4.61 10*6/uL Normal 4.20-6.00 [facility] Comment on above: Performed By: #### C BCDIF ####[facility] [place], [place] [phone] WBC (Bld) [#/Vol] 29.32 10*3/uL High 3.70-11.00 [facility] Comment on above: Result Comment: Resu lt checked and verified No clot detected. Performed By: #### C BCDIF ####[address] [phone] CONSULT PROGon 07-05-2021 CONSULT PROG HNO ID: [id number] Author: Pearl Mann RPh Service: Pharmacy Author [...] any questions, please contact Pharmacy at ex [phone]. Age: [age] year old Allergies: ALLERGIES Allergen [...] Levels: No results found for: CHIDI Mann [facility] CT ABD/PEL WO IVCONon 2020 CT [...] abnormality. Lumbosacral pars defects. Lower thorax: Unremarkable. Radar Engineering Teacher (topogram) images: No additional findings. IMPRESSION: Extensive pancreatitis with inflammatory changes surrounding the transverse colon, spleen and retroperitoneum. Small volume ascites is present. Extent of pancreatic necrosis cannot be assessed on a noncontrast examination. Budget Examiner: [facility] Transcribe Date/Time: Jul 05 2021 7:12P Dictated by : SPIKE FUNES MD This examination was interpreted and the report reviewed and electronically signed by: SPIKE FUNES MD on Jul 05 2021 7:23PM EST [id number] Normal [facility] Comp Metabolic Panelon 07-05 Albumin [Mass/Vol] 5.0 g/dL High 3.9-4.9 [facility] Comment on above: Performed By: #### C BCDIF ####[address] [phone] ALP [Catalytic activity/Vol] 77 U/L Normal 38-113 [facility] Comment on above: Performed By: #### C BCDIF ####[address] [phone] ALT [Catalytic activity/Vol] 34 U/L Normal 10-54 [facility] Comment on above: Performed By: #### C BCDIF ####[address] [phone] Anion gap [Moles/Vol] 23 mmol/L High 9-18 [facility] Comment on above: Performed By: #### C BCDIF ####[address] [phone] AST [Catalytic activity/Vol] 69 U/L High 14-40 [facility] Comment on above: Performed By: #### C BCDIF ####[address] [phone] Bilirubin [Mass/Vol] 5.3 mg/dL High 0.2-1.3 [facility] Comment on above: Performed By: #### C BCDIF ####[address] [phone] Calcium [Mass/Vol] 9.5 mg/dL Normal 8.5-10.2 [facility] Comment on above: Performed By: #### C BCDIF ####[address] [phone] Chloride [Moles/Vol] 92 mmol/L Low 97-105 [facility] Comment on above: Performed By: #### C BCDIF ####[facility] [place], [place] [phone] CO2 [Moles/Vol] 15 mmol/L Low 22-30 [facility] Comment on above: Performed By: #### C BCDIF ####[facility] [place], [place] [phone] Creatinine [Mass/Vol] 2.53 mg/dL High 0.73-1.22 [facility] Comment on above: Performed By: #### C BCDIF ####[place] [address] [place], [place] [phone] eGFR- Amer. 35 Normal [facility] Comment on above: Performed By: #### C BCDIF ####[address] [phone] eGFR-All Other Races 29 . Normal [facility] Comment on above: Result Comment: eGFR [...] at [email or web address]/professionals/kdoqi/gfr_calculator. Performed By: #### C BCDIF ####[address] [phone] Glucose [Mass/Vol] 167 mg/dL High 74-99 [facility] Comment on above: Result Comment: The [place] Diabetes Association (ADA) provides guidance for cutoff [...] Standards of Medical Care in Diabetes 2016, [place] Diabetes Association. Diabetes Care. 2016.39(Suppl 1). Performed By: #### C BCDIF ####[address] [phone] Potassium [Moles/Vol] 5.5 mmol/L High 3.7-5.1 [facility] Comment on above: Performed By: #### C BCDIF ####[address] [phone] Protein [Mass/Vol] 7.6 g/dL Normal 6.3-8.0 [facility] Comment on above: Performed By: #### C BCDIF ####[address] [phone] Sodium [Moles/Vol] 130 mmol/L Low 136-144 [facility] Comment on above: Performed By: #### C BCDIF ####[address] [phone] Urea nitrogen [Mass/Vol] 20 mg/dL Normal 9-24 [facility] Comment on above: Performed By: #### C BCDIF ####[address] [phone] ED NOTEon 07-05-2021 ED NOTE HNO ID: [id number] Author: Max Styles RN Service: ? Author [...] up, bed in locked and low position [facility] ED PROV NOTEon 07-05-2021 ED PROV NOTE HNO ID: [id number] Author: Will Mccormick DO Service: Emergency Medicine [...] mmol/L Lact (more content not included)... Normal [facility] ED Triage Noteon 07-05-2021 ED Triage Note HNO ID: [id number] Author: Brian Ash I, PA-C Service: Emergency Medicine Author Type: Physician Pulp Plant Supervisor Type: ED Triage Notes Filed: 07/05/2021 6:11 [...] RUQ US SIGNATURE: Brian Ash PA-C Normal [facility] Ethanolon 07-05-2021 Ethanol [Mass/Vol] mg/dL Normal <11 [facility] Comment on above: Result Comment: Valu es > 80 mg/dL may indicate intoxication HISTORY PHYSICALon HISTORY PHYSICAL HNO ID: [id number] Author: Lisseth Raymond APRN.CNP Service: Hospital Medicine Author Type: Nurse Practitioner Type: HANDP Filed: 07/05/2021 9:37 PM Note Text: DEPARTMENT OF HOSPITAL MEDICINE HISTORY AND PHYSICAL EXAM SERVICE DATE: 07/05/2021 Code Status: Not on file SERVICE TIME: 9:27 PM Primary Care Physician: Luis Abdalla, DO NIGHT AND WEEKEND COVERAGE: [place] COVERAGE: Days: [phone], please contact via [employer] Nights: [phone], please page CC Hospitalist Night coverage pager [phone] Subjective CHIEF COMPLAINT: Epigastric pain going through [...] tests revie (more content not included)... Normal [facility] Lipaseon 07-05-2021 Lipase [Catalytic activity/Vol] 2781 U/L High 16-61 [facility] Comment on above: Performed By: #### C BCDIF ####[facility] [place], [place] [phone] Magnesiumon 07-05-2021 Magnesium [Mass/Vol] 0.8 mg/dL Low 1.7-2.3 [facility] Comment on above: Result Comment: No c all per procedure. 07/05/21 1847 Performed By: #### C BCDIF ####[address] [phone] Protimeon 07-05-2021 PT INR 1.3 Normal 0.9-1.3 [facility] Comment on above: Result Comment: Aster min K Antagonist (VKA) Therapeutic Range: INR 2 to 3 (Target INR of 2.5) Note: For patients treated with VKA drugs, such as warfarin, the [place] College of Chest Physicians 2012 Guideline recommends [...] 252-289 PT Sec 14.0 sec High 9.7-13.0 [facility] Triglycerideon 07-05-2021 Fasting Time Unknown Normal [facility] Triglyceride [Mass/Vol] 463 mg/dL High <150 [facility] Troponin Ton 07-05-2021 Troponin T <0.010 Normal 0.000-0.029 [facility] Kaleb 02-25-2021 L --- Specimen: [id number] Received: 02/25/21 Status: LU [place] Num: [id number] Spec Type: Surgical Subm Dr: Josiah Pompa MD Tissues: A Disc - Intervertebral/Lumbar/C ervical (CERVICAL) Procedures: HE Stain, Gross/Micro L3 Patient Age/Sex Location Account Attending Physician Chuckie Villalta 35/M [place] [id number] Josiah Pompa MD SPEC NUM: [id number] RECD: 02/25/21 STATUS: LU WAYNE NUM: [id number] VJ: 02/25/[address] [facility] [address]: Josiah Pompa MD ENTERED: 02/25/21 [facility] DR: LOUIE TYPE: Surgical DEPT: [...] of montanez-pink, rubbery and ragged fibrous tissue. Site Inspector sections are submitted in one cassette labeled A1. (SM/YJ) Microscopic Description One glass slide with H E stained material has been examined. The microscopic findings support the above pathologic diagnosis. CPT Codes 75875 Specimen: [id number] Received: 02/25/21 Status: LU Wayne Num: [id number] Spec Type: Surgical Subm Dr: Josiah Pompa MD Tissues: A Disc - Intervertebral/Lumbar/C ervical (CERVICAL) Procedures: HE Stain, Gross/Micro L3 Patient: Chuckie Villalta [id number] (Continued) Signed (signature on file) Lucretia Lund MD 02/26/21 1655 Normal [facility] XR cervical spine 1Von 02-25 XR cervical spine 1V [place] [address] XRay Report Signed Patient: Chuckie Villalta MR#: [id number] 56 : 1985 Acct:[id number] Age/Sex: 35 / M ADM Date: 02/25/21 Loc: Room: [address] [place] [address] Type: [facility] Attending Dr: Josiah Pompa MD Ordering Provider: [...] Carlos Solano M.D.02/25/2021 4:31 PM Dictation Location: [place] [address] Transcribed By: [facility] 02/25/21 163 Dictated By: Carlos Solano II, MD 02/25/21 1630 Signed By: 02/25/21 163 Normal [facility] Basic Metabolic Panelon 01-25 Calcium [Mass/Vol] 9.3 mg/dL Normal 8.2-10.2 [facility] Comment on above: Result Comment: PERF ORMED BY: [place] [address] PATHOLOGIST CAR SWEEPER ALFRED TRACY M.D. Performed By: #### B MP, CBC #### [facility] [address] [place] [address] Chloride [Moles/Vol] 99 mmol/L Normal 95-114 [facility] Comment on above: Performed By: #### B MP, CBC #### [address] CO2 [Moles/Vol] 20.5 mmol/L Low 22.0-30.0 [facility] Comment on above: Performed By: #### B MP, CBC #### [facility] [address] [place] [address] [place] Creatinine [Mass/Vol] 1.31 mg/dL High 0.64-1.27 [facility] Comment on above: Performed By: #### B MP, CBC #### [facility] [address] [place] [address] [place] Estimated GFR ( Marissa > 60 Normal [facility] Comment on above: Result Comment: GFR estimated reference range: According to KDOQI guidelines, <60 ml/min/1.73m2 is sufficient to diagnose a patient with chronic kidney disease. Performed By: #### B MP, CBC #### [facility] [address] Estimated GFR (Non- Am > 60 Normal [facility] Comment on above: Performed By: #### B MP, CBC #### [facility] [address] Glucose [Mass/Vol] 105 mg/dL High 70-100 [facility] Comment on above: Result Comment: Vian Glucose Reference Range is dependent on time and content of last meal. Glucose of more than 200 mg/dL in a nonstressed, ambulatory subject supports the diagnosis of Diabetes Mellitus. ADA recommended reference range Performed By: #### B MP, CBC #### [facility] [address] Potassium [Moles/Vol] 4.4 mmol/L Normal 3.5-5.1 [facility] Comment on above: Performed By: #### B MP, CBC #### [facility] [address] Sodium [Moles/Vol] 133 mmol/L Low 136-146 [facility] Comment on above: Performed By: #### B MP, CBC #### [address] Urea nitrogen [Mass/Vol] 11 mg/dL Normal 9-23 [facility] Comment on above: Performed By: #### B MP, CBC #### [address] [facility] SARS-CoV-2 (COVID-19) RNA NOLBERTO+probe Ql (Unsp spec) Negative Normal Negative [facility] Comment on above: Order Comment: Healt hcare Worker?: N Result Comment: Testing for SARS-CoV-2 by RT-PCR This test was developed and its performance characteristics determined by [employer]) and validated at the [facility]. This test has not been [...] is terminated or revoked sooner. PERFORMED BY: [place] [address] PATHOLOGIST CAR SWEEPER ALFRED TRACY M.D. Performed By: #### C OVID 19 [facility] #### [address] Complete Blood Count Auto Di ffon 02-21-2021 Basophils (Bld) [#/Vol] 0.0 10*3/uL Normal 0.0-0.2 [facility] Comment on above: Result Comment: PERF ORMED BY: [place] [address] PATHOLOGIST CAR SWEEPER ALFRED TRACY M.D. Performed By: #### B MP, CBC #### [address] Basophils/100 WBC (Bld) 0.5 % Normal . [facility] Comment on above: Performed By: #### B MP, CBC #### [address] Eosinophils (Bld) [#/Vol] 0.1 10*3/uL Normal 0.0-0.45 [facility] Comment on above: Performed By: #### B MP, CBC #### [address] Eosinophils/100 WBC (Bld) 1.2 % Normal . [facility] Comment on above: Performed By: #### B MP, CBC #### [address] [place] [address] [place] Erythrocyte distribution width (RBC) [Ratio] 14.0 % Normal 12.0-14.8 [facility] Comment on above: Performed By: #### B MP, CBC #### [address] Hematocrit (Bld) [Volume fraction] 39.2 % Normal 38.8-50.0 [facility] Comment on above: Performed By: #### B MP, CBC #### [address] Hemoglobin (Bld) [Mass/Vol] 13.9 g/dL Normal 13.0-17.0 [facility] Comment on above: Performed By: #### B MP, CBC #### [address] Lymphocytes (Bld) [#/Vol] 1.0 10*3/uL Normal 1.00-4.8 [facility] Comment on above: Performed By: #### B MP, CBC #### [address] Lymphocytes/100 WBC (Bld) 9.5 % Normal . [facility] Comment on above: Performed By: #### B MP, CBC #### [address] MCH (RBC) [Entitic mass] 32.1 pg Normal 27.5-35.2 [facility] Comment on above: Performed By: #### B MP, CBC #### [address] MCV (RBC) [Entitic vol] 90.4 fL Normal 83.5-101 [facility] Comment on above: Performed By: #### B MP, CBC #### [address] Mean Corpuscular HGB Conc 35.5 g/dL Normal 32.5-35.6 [facility] Comment on above: Performed By: #### B MP, CBC #### [address] Monocytes (Bld) [#/Vol] 0.6 10*3/uL Normal 0.0-0.8 [facility] Comment on above: Performed By: #### B MP, CBC #### [facility] [address] Monocytes/100 WBC (Bld) 6.0 % Normal . [facility] Comment on above: Performed By: #### B MP, CBC #### [facility] [address] Neutrophils (Bld) [#/Vol] 8.8 10*3/uL High 1.8-7.7 [facility] Comment on above: Performed By: #### B MP, CBC #### [address] Neutrophils/100 WBC (Bld) 82.8 % Normal . [facility] Comment on above: Performed By: #### B MP, CBC #### [address] Nucleated RBC/100 WBC (Bld) [Ratio] 0.0 % Normal 0-0.5 [facility] Comment on above: Performed By: #### B MP, CBC #### [address] Platelet mean volume (Bld) [Entitic vol] 8.4 fL Normal 6.6-10.1 [facility] Comment on above: Performed By: #### B MP, CBC #### [facility] [address] [place] [address] [place] Platelets (Bld) [#/Vol] 205 10*3/uL Normal 150-450 [facility] Comment on above: Performed By: #### B MP, CBC #### [place] [address] [place] RBC (Bld) [#/Vol] 4.34 10*6/uL Normal 3.90-5.60 [facility] Comment on above: Performed By: #### B MP, CBC #### [place] [id number] [place] WBC (Bld) [#/Vol] 10.6 10*3/uL Normal 4.5-11.0 [facility] Comment on above: Performed By: #### B MP, CBC #### [address] ECG 12 lead ECGon 02-18-2021 ECG 12 lead ECG [facility] [place] [address] [place] [address] Electrocardiograph Report Signed Patient: Chuckie Villalta MR#: [id number] 56 : 1985 Acct:[id number] Age/Sex: 35 / M ADM Date: 02/18/21 Loc: Room: Type: [facility] Attending Dr: Josiah Pompa MD Ordering [...] DO 02/18/21 1413 Signed By: 02/18/[address] [facility] MRI CSPINE WO CONon 12-07-19 MRI CSPINE [...] by: ANGIE MCDANIEL Date: 2020-12-06 12:00 Normal [facility] Vital Signs Date Time Vital Sign Value Performing Clinician Facility 02-17-2025 10:10-0400 Body height 185.42 cm ON24 Work Phone: [facility] 02-17-2025 10:10-0400 Body mass index (BMI) [Ratio] 32.8 kg/m2 ON24 Work Phone: [facility] 02-17-2025 10:10-0400 Body weight 112.94 kg ON24 Work Phone: [facility] 02-17-2025 10:10-0400 Diastolic blood pressure 80 mm[Hg] ON24 Work Phone: [facility] 02-17-2025 10:10-0400 Heart rate 85 /min ON24 Work Phone: [facility] 02-17-2025 10:10-0400 Respiratory rate 12 /min Luis Ball DO Work Phone: [facility] 02-17-2025 10:10-0400 Systolic blood pressure 110 mm[Hg] Luis Ball DO Work Phone: [facility] 09-02-2024 14:12-0500 Body height 185.42 cm [facility] 09-02-2024 14:12-0500 Body mass index (BMI) [Ratio] 31.8 kg/m2 [facility] 09-02-2024 14:12-0500 Body weight 109.42 kg [facility] 09-02-2024 14:12-0500 Diastolic blood pressure 72 mm[Hg] [facility] 09-02-2024 14:12-0500 Heart rate 97 /min [facility] 09-02-2024 14:12-0500 Respiratory rate 12 /min [facility] 09-02-2024 14:12-0500 Systolic blood pressure 95 mm[Hg] [facility] 02-29-2024 13:25-0400 Body height 185.42 cm [facility] 02-29-2024 13:25-0400 Body mass index (BMI) [Ratio] 29 kg/m2 [facility] 02-29-2024 13:25-0400 Body weight 99.79 kg [facility] 02-29-2024 13:25-0400 Diastolic blood pressure 91 mm[Hg] [facility] 02-29-2024 13:25-0400 Heart rate 111 /min [facility] 02-29-2024 13:25-0400 Respiratory rate 12 /min [facility] 02-29-2024 13:25-0400 Systolic blood pressure 161 mm[Hg] [facility] 06-20-2023 16:12-0500 Body temperature 96.98 [degF] [facility] 06-20-2023 16:12-0500 Diastolic blood pressure 85 mm[Hg] [facility] 11-25-2023 16:12-0500 Heart rate 114 /min [facility] 06-20-2023 16:12-0500 Respiratory rate 18 /min [facility] 06-20-2023 16:12-0500 SaO2% (BldA) [Mass fraction] 100 % [facility] 06-20-2023 16:12-0500 Systolic blood pressure 160 mm[Hg] [facility] 06-11-2023 10:00-0500 Body height 185.42 cm Luis Ball Other [facility] [employer] Other 06-11-2023 10:00-0500 Body mass index (BMI) [Ratio] 29.66 kg/m2 Luis Ball Other [facility] [employer] Other 06-11-2023 10:00-0500 Body weight 101.97 kg Luis Ball Other [employer] [facility] [employer] Other 06-11-2023 10:00-0500 Diastolic blood pressure 97 mm[Hg] Luis Ball Other [employer] Other 06-11-2023 10:00-0500 Respiratory rate 12 /min Luis Ball Other [employer] Other 06-11-2023 10:00-0500 Systolic blood pressure 141 mm[Hg] Luis Ball Other [employer] Other 03-05-2023 09:45-0400 Body height 185.42 cm Luis Ball Other [employer] Other 03-05-2023 09:45-0400 Body mass index (BMI) [Ratio] 29.6 kg/m2 Luis Ball Other [employer] Other 03-05-2023 09:45-0400 Body weight 101.79 kg Luis Ball Other [employer] Other 03-05-2023 09:45-0400 Diastolic blood pressure 109 mm[Hg] Luis Ball Other [employer] Other 03-05-2023 09:45-0400 Systolic blood pressure 153 mm[Hg] Luis Ball Other [employer] Other 09-12-2022 10:30-0500 Body height 185.42 cm Luis Ball Other [employer] Other 09-12-2022 10:30-0500 Body mass index (BMI) [Ratio] 29.95 kg/m2 Luis Ball Other [employer] Other 09-12-2022 10:30-0500 Body weight 102.97 kg Luis Ball Other [employer] Other 09-12-2022 10:30-0500 Diastolic blood pressure 86 mm[Hg] Luis Ball Other [employer] Other 09-12-2022 10:30-0500 Respiratory rate 12 /min Luis Ball Other [employer] Other 09-12-2022 10:30-0500 Systolic blood pressure 132 mm[Hg] Luis Ball Other [employer] Other Encounters Encounter Date Encounter Type Care Provider Facility Start: 05-01-2025 End: 05-01-2025 ambulatory Vicente Thompson MD Facility:[facility] Start: 03-09-2025 End: 03-09-2025 ambulatory NICKOLAS MCCALLUM Facility:[facility] Start: 02-17-2025 End: 02-17-2025 ambulatory Luis Ball DO Work Phone: [facility] Work Phone: Start: 02-17-2025 End: 02-17-2025 Patient encounter procedure Luis Abdalla [facility] Work Phone: Start: 01-26-2025 End: 01-26-2025 Emergency department patient visit Ralf Carbajal [facility] Start: 01-06-2025 End: 04-12-2025 ambulatory LUIS ABDALLA Facility:[facility] Start: 11-21-2024 End: 11-21-2024 ambulatory Vicente Thompson MD Facility:[facility] Start: 11-14-2024 End: 11-14-2024 ambulatory Vicente Thompson MD Facility:[facility] Start: 09-02-2024 End: 09-02-2024 ambulatory [facility] Work Phone: Start: 09-02-2024 End: 09-02-2024 Encounter for general adult medical examination without abnormal findings [facility] Start: 09-02-2024 End: 09-02-2024 Patient encounter procedure [facility] Work Phone: Start: 09-01-2024 Patient encounter status [facility] Start: 08-23-2024 Non-patient / Non-visit [facility] Work Phone: Start: 08-20-2024 Non-patient / Non-visit [facility] Work Phone: Start: 07-04-2024 End: 07-04-2024 ambulatory Vicente Thompson MD Facility:[facility] Start: 02-29-2024 End: 02-29-2024 ambulatory [facility] Work Phone: Start: 02-29-2024 End: 02-29-2024 Patient encounter procedure [facility] Work Phone: Start: 06-20-2023 End: 06-20-2023 Emergency department patient visit Wil[facility] Start: 06-11-2023 End: 06-11-2023 ambulatory Luis Abdalla Other [employer] Other Start: 06-11-2023 Encounter for genera l adult medical examination without abnormal findings Luis Abdalla [facility] Start: 06-11-2023 Periodic preventive med est patient 18-39 yrs Luis Abdalla [facility] Start: 03-05-2023 End: 03-05-2023 ambulatory Luis Abdalla Other [facility] Other Start: 03-05-2023 Office outpatient vi sit 15 minutes Luis Abdalla [facility] Start: 09-22-2022 Telephone encounter 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 [facility] Comment on above: Care Coordination ([facility] clinic) Start: 09-12-2022 End: 09-12-2022 ambulatory Luis Abdalla Other [facility] Other Start: 09-12-2022 Office outpatient vi sit 25 minutes Luis Abdalla [facility] Start: 09-04-2022 Orders Only Betina Barr MD Work Phone: Gastroenterology Comment on above: Liver transplant rec ipient (HCC) (Primary Dx) Endoscopy Call Start: 07-22-2022 ambulatory Nadja Spencer RN [facility] Comment on above: hol obs erved July 28 Start: 07-22-2022 E-mail encounter fro m caregiver Nadja Spencer RN [facility] Start: 05-01-2022 Refill Tuyet Rivera PA-C Work Phone: [facility] Comment on above: Refill Request Start: 03-24-2022 Telephone encounter [facility] Comment on above: Reminder To Have Lab s Drawn Start: 03-11-2022 Telephone encounter [facility] Comment on above: Covid19 Concern Start: 02-25-2022 End: 02-25-2022 ambulatory LUIS ABDALLA Facility:[facility] Start: 02-25-2022 End: 02-25-2022 Patient encounter [...] with patient Aidan Larios MD Work Phone: [facility] Start: 11-08-2021 Telephone encounter [...] (2 - Td or Tdap) [facility] Start: 07-07-2027 LIPID SCREEN LIPID SCREEN [facility] Start: 07-16-2026 LIPID SCREEN LIPID SCREEN [facility] Start: 01-15-2024 PNEUMOCOCCAL (3 - PP SV23 if available, else PCV20) PNEUMOCOCCAL (3 - PPSV23 if available, else PCV20) [facility] Start: 01-15-2024 PNEUMOCOCCAL (3 - PP SV23 or PCV20) PNEUMOCOCCAL (3 - PPSV23 or PCV20) [facility] Start: 10-05-2023 TWO PNEUMOVAX 5 YEAR S APART PRIOR TO AGE 65 (#2) TWO PNEUMOVAX 5 YEARS APART PRIOR TO AGE 65 (#2) [facility] Start: 02-24-2023 Adult depression screening assessment DEPRESSION SCREENING [facility] Start: 12-02-2022 End: 09-04-2023 ERCP ERCP Endoscopy Routine Biliary stricture Expected: 12/02/2022, Expires: 09/04/2023 [facility] Work Phone: Comment on above: Expected: 12/02/2022 , Expires: 09/04/2023 Start: 07-27-2022 DEPRESSION ASSESSMENT DEPRESSION ASS ESSMENT [facility] Start: 03-27-2022 Influenza vaccination [facility] Start: 12-30-2021 End: 03-01-2022 Amylase [Enzymatic activity/volume] in Serum or Plasma AMYLASE BLD Lab Routine Expected: 12/30/2021, Expires: 03/01/2022 [facility] Work Phone: Comment on above: Expected: 12/30/2021 , Expires: 03/01/2022 Start: 12-30-2021 End: 03-01-2022 Lipase [Enzymatic activity/volume] in Serum or Plasma LIPASE BLD Lab Routine Expected: 12/30/2021, Expires: 03/01/2022 [facility] Work Phone: Comment on above: Expected: 12/30/2021 , Expires: 03/01/2022 Start: 12-24-2021 End: 01-09-2023 Ct abdomen w/contrast material CT ABDOMEN W IVCON Radiology Routine Expected: 12/24/2021 (Approximate), Expires: 01/09/2023 [facility] Work Phone: Comment on above: Expected: 12/24/2021 (Approximate), Expires: 01/09/2023 Start: 07-27-2021 DEPRESSION ASSESSMENT DEPRESSION ASS ESSMENT [facility] Start: 07-10-2020 Adult depression screening assessment DEPRESSION SCREENING [facility] Start: 07-07-2020 MENINGOCOCCAL B: Consider based on risk (3 of 4 - Increased Risk Bexsero 2-dose series) MENINGOCOCCAL B: Consider based on risk (3 of 4 - Increased Risk Bexsero 2-dose series) [facility] Start: 03-11-2019 MENINGOCOCCAL CONJUG ATE (2 - Risk 2-dose series) MENINGOCOCCAL CONJUGATE (2 - Risk 2-dose series) [facility] Start: 2004 SHINGRIX VACCINE (1 of 2) SHINGRIX VACCINE (1 of 2) [facility] Start: 11-01-2003 ANNUAL PCP TEAM MODEL MAKER BRANDON DISEASE VISIT ANNUAL PCP TEAM CHRONIC DISEASE VISIT [facility] Start: 11-01-2003 BP CONTROLLED (<130/80) BP CONTROLLE D (<130/80) [facility] Start: 1997 COVID-19 VACCINE (1) COVID-19 VACCIN E (1) [facility] Start: 1990 COVID-19 VACCINE (#1) COVID-19 VACCI NE (#1) [facility] Start: 05-02-1986 COVID-19 VACCINE (#1) COVID-19 VACCI NE (#1) [facility] Immunizations Immunization Date Immunization Notes Care Provider Fa cility 04-18-2020 influenza virus vacc ine, split virus (incl. purified surface antigen) Luis Abdalla Other [facility] Other 04-18-2020 influenza virus vacc ine, unspecified formulation [facility] 07-07-2019 meningococcal B vacc ine, recombinant, OMV, adjuvanted Nadja Spencer RN [facility] 05-20-2019 hepatitis A and hepatitis B vaccine Nadja Spencer RN [facility] 05-20-2019 influenza, injectabl e, quadrivalent, contains preservative Nadja Spencer RN [facility] 01-14-2019 haemophilus influenz ae type b vaccine, PRP-OMP conjugate Nadja Spencer RN [facility] 01-14-2019 meningococcal B vacc ine, recombinant, OMV, adjuvanted Nadja Spencer RN [facility] 01-14-2019 meningococcal oligosaccharide (groups A, C, Y and W-135) diphtheria toxoid conjugate vaccine (MCV4O) Nadja Spencer RN [facility] 01-14-2019 pneumococcal conjuga te vaccine, 13 valent Nadja Spencer RN [facility] 10-04-2018 hepatitis A and hepatitis B vaccine Nadja Spencer RN [facility] 10-04-2018 pneumococcal polysaccharide vaccine, 23 valent Nadja Spencer RN [facility] 07-01-2018 hepatitis A and hepatitis B vaccine Nadja Spencer RN [facility] 07-01-2018 influenza, injectabl e, quadrivalent, contains preservative Nadja Spencer RN [facility] 07-01-2018 pneumococcal conjuga te vaccine, 13 valent Nadja Spencer RN [facility] 07-01-2018 tetanus toxoid, redu simon diphtheria toxoid, and acellular pertussis vaccine, adsorbed Nadja Spencer RN [facility] 04-30-2009 hepatitis B vaccine, adult dosage Nadja Spencer RN [facility] Payers Date Payer Category [place]ayer [place] [id number] 2021-Present [phone] [address] [place] [address] Medicaid [id number] 2021 Medicaid [id number] 2021 Medicare MEDICARE MEDICAR E A AND B [id number] 2021-Present [phone] [place] [address] Medicare [id number] 2021 Medicare [id number] 2021 Medicaid [id number] 2021 Medicare [id number] 2020 Medicaid [facility] MEDICAID [facility] MEDICAID [id number] 2020-Present [phone] [address] [place] [address] Medicaid [id number] 1985 Unknown [id number] 1985 Unknown [id number] 1985 Unknown [id number] 1985 Unknown [id number] 1985 Unknown [id number] 1985 Unknown [id number] 1985 Unknown [id number] 1959 Unknown [id number] Self-pay Self Pay [id number] Social History Date Type Detail Facility Start: 05-04-2018 End: 02-29-2024 Tobacco smoking status NHIS Never smoked tobacco [facility] Start: 05-04-2018 Tobacco use and exposure Former smokeless tobacco user [facility] Start: 09-17-2021 End: 09-04-2022 Alcohol intake Current drinker of alcohol (finding) [facility] Start: 07-05-2021 History SDOH Alcohol Comment occasionally [facility] Start: 1985 Sex Assigned At Not on file [facility] Start: 10-20-2021 End: 2021 Exposure to SARS-CoV-2 (event) Not sure [facility] [facility] Sex Assigned At [facility] Tobacco smoking status [facility] Start: 1985 Sex Assigned At Male F [facility] Start: 11-07-2009 End: 09-02-2024 Sex Male (finding) [facility] Medical Equipment Procedure Code Equipment Code Equipment Origin al Text Equipment Identifier Dates Stent Axios 15mm 24mm 138mm 10.8fr Nitinol Silicone 10mm 146mm Pancreatic - [id number] Start: 11-01-2021 Stent 10fr Duode nal Bend Plastic 12cm Biliary Temporary Rapid Exchange - [id number] Start: 09-04-2022 Spinal fixation plate, non-bioabsorbable ()[id number] FDA Start: 02-25-2021 Spinal fixation plate, non-bioabsorbable ()[id number] FDA Start: 02-25-2021 Intervertebral-b josesito internal spinal fixation system ()[id number] FDA Start: 02-25-2021 Intervertebral-b josesito internal spinal fixation system ()[id number] FDA Start: 02-25-2021 Functional Status Date Assessment Result Facility 06-20-2023 Functional Status N/A [facility] Clinical Notes 07-25-2019 to 01-26-2025 Note Date & Type Note Facility 01-26-2025 Evaluation + Plan note Extrac edwardo from: Title:ED Note Author:Reynaldo Lopez PA-C te:01/26/25 Back pain (M54.9: Dorsalgia, unspecified) Orders: predniSONE, 60 mg = 3 tab(s), Oral, Daily, X 7 day(s), # 21 tab(s), Refills(s) 0, Pharmacy: [id number], 113.4, cm, 01/26/25 11:00:00 EDT, Height/Length Dosing, 185.4, kg, 01/26/25 11:00:00 EDT, Weight Dosing XR Spine Lumbosacral 2 or 3 Views Future Appointments Appointment Date:01/31/2025 09:30:00 AM Scheduled Provider: Location:.[facility] Physical Tx Appointment Type:PT 45 (FT) Appointment Date:02/01/2025 09:30:00 AM Scheduled Provider: Location:.[facility] Physical Tx Appointment Type:PT 45 (FT) Appointment Date:02/03/2025 09:00:00 AM Scheduled Provider: Location:[facility] Physical Tx Appointment Type:PT Re-Eval 45 (FT) [facility] 07-03-2025 Hospital Discharge instructions Patient Education [...] home: Managing pain, stiffness, and swelling Take fkoo-qgl-cflcxax and prescription medicines only as told by [...] each day. 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 Take alst-dke-ceilrrz and prescription medicines only as told by your health care provider, and apply heat or ice as told. This information is not intended to replace advice given to you by your health care provider. Make sure you discuss any questions you have with your health care provider. Document Revised: 10/04/2021 Document Reviewed: 10/04/2021 [employer] Patient Education 2023 [employer] Follow Up Care 01/26/2025 10:51:38 With:LUIS ABDALLA Address: [address] [place] [address] [place] [address]- Business (1) When:01/29/2025 11:34:25 [facility] 07-03-2025 NoteED Patient Education Note Orthopedics [...] Managing pain, stiffness, and swelling ??? Take ciol-mcd-dybxoew and prescription medicines only as told by [...] day. ??? 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 ??? Y (more content not included)...[facility]11-25-2023 Hospital Discharge instructions Patient Education 06/20/2023 [...] or saurabh your foot. General instructions Take hvir-glt-mhmwdvu and prescription medicines only as told by [...] provider. Document Revised: 11/02/2020 Document Reviewed: 11/02/2020 [employer] Patient Education 2022 [employer] 06/20/2023 18:04:25 Elastic Bandage and RICE [...] limityour activities and whether you should start lpjbq-de-lgvjqj exercises for your injury. Ice Ice your [...] provider. Document Revised: 09/07/2020 Document Reviewed: 04/02/2018 [employer] Patient Education 2020 [employer] 06/20/2023 18:04:25 Ankle Sprain, Phase II [...] by your health care provider. Stretching and tdgdf-rs-vfleof exercises These exercises warm up your muscles [...] provider. Document Revised: 09/05/2021 Document Reviewed: 09/05/2021 [employer] Patient Education 2022 [employer] 06/20/2023 18:04:25 Ankle Sprain, Phase I [...] told by your healthcare provider. Stretching and bhlpc-sj-ltdcix exercises These exercises warm up your muscles [...] provider. Document Revised: 09/05/2021 Document Reviewed: 09/05/2021 [employer] Patient Education 2022 [employer] 06/20/2023 18:04:25 Ankle Sprain Ankle Sprain [...] andblue. Managing pain, stiffness, and swelling Take fcka-cmt-oberete and prescription medicines only as told by [...] provider. Document Revised: 09/05/2021 Document Reviewed: 09/05/2021 [employer] Patient Education 2022 [employer] Follow Up Care 06/20/2023 15:55:18 With:LUIS ABDALLA Address: [address] [facility], [place] [address]- Business (1) When:06/23/2023 17:48:00 Comments:Follow-up with your primary care provider in 3 to 5 days. If symptoms worsen, do not improve, or new symptoms arise please report back to emergency department for further evaluation. [facility]11-25-2023 Evaluation + Plan noteExtracted from: Title:ED [...] CBD obstruction May, Nausea (ICD-10 - R11.0) [facility] Other 08-10-2023 Evaluation note* Encounter Date Diagnosis [...] < 140/90 and HR less than 90 [facility] Other 02-27-2023 Miscellaneous Notes* Telephone Encounter - 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 RN - 09/22/2022 11:30 AM EST Called and left patient regarding referral to [facility] clinic. Call back number provided. [place] SL message with the details also sent. 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 RN September 22, 2022 11:32 AM documented in [facility]Mer[facility] Evaluation note* Encounter Date Diagnosis [...] recipient (ICD-10 - Z94.4) No s/s rejection [facility] Other 02-09-2023 Miscellaneous Notes* Telephone Encounter - Betina Barr MD - 09/04/2022 2:03 PM EST Stent change with bruna documented in this encounterMer[facility]10-07-2022 Miscellaneous Notes* Telephone Encounter [...] Thank you, Lorena Adames RPh [facility] [phone] documented in this encounterMercy Health [facility]08-29-2022 Miscellaneous Notes* Telephone Encounter - Nadja Spencer RN - 03/24/2022 1:17 PM EDT I sent patient a reminder to have lab work drawn as soon as possible as he has not had labs drawn in some time. Encouraged him to reach out with questions. Nadja Spencer (Cassie) RN, BSN Liver Bus Starter documented in this encounterMercy Health [facility]08-16-2022 Miscellaneous Notes* Telephone Encounter - [...] to. Nadja Spencer RN (Cassie), BSN Liver Bus Starter documented in this encounterMercy Health [facility]08-02-2022 NoteHNO ID: [id number] Author: SHAQ Chua Service: ? Author Type: Dramatic Art Teacher Type: Progress Notes Filed: 02/25/2022 10:46 AM Note Text: [facility] Assessment Visit Type:Virtual Visit utilizing two-way audio and video for at least a portion of the visit IDENTIFYING INFORMATION: [phone] [email or web address] Lives with of nine years, Екатерина and [...] to virtual evaluation. Patient and this typewriter repairer present during interview. PRECIPITATING PROBLEM(S):Patient was dx with liver disease in 2017. Completed an IOP at [facility] in summer 2018, and received liver transplant [...] Age 16, every other weekend. Went to [email or web address] for college drank heavily on weekends, then [...] from its effects? Yes (more content not included)...[facility] History of Present illness Narrative* SHAQ Chua - 02/25/2022 9:21 AM EDT [facility] Assessment Visit Type:Virtual Visit utilizing two-way audio and video for at least a portion of the visit IDENTIFYING INFORMATION: [phone] [email or web address] with of nine years, Екатерина andone [...] to virtual evaluation. Patient and this typewriter repairer present during interview. PRECIPITATING PROBLEM(S):Patient was dx with liver disease in 2018. Completed an IOP at [facility] in summer 2018, and received liver transplant [...] Age 16, every other weekend. Went to [email or web address] for college drank heavily on weekends, then [...] MEDICATIONS: none PRIOR CHEMICAL DEPENDENCY TREATMENTS: Yes: [facility] in 2019 TWELVE STEP HISTORY: -Longest [...] None FAMILY/DEVELOPMENTAL HISTORY: -Born/Raised in (City, State): [place], [place]. Grew up on a farm Biological [...] No EMPLOYMENT HISTORY: -Currently employed? 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 No - Are you in need of assistance to identify and explore career interests, aptitudes, and skills andto formulate immediate and buttermaker continuous churn vocational goals? No MARITAL HISTORY: Екатерина -Children: [...] camping, campfires SPIRITUAL ASSESSMENT: -Raised in this Mormon Background: Spiritism Current Spiritual/Mormon Practices: yes -Belief in a Higher Power: [...] things - anyone or anything (e.g., family, pentecostal, pain of ) - that stopped you [...] suicide or other suicidal behavior. From The [employer] [place] [employer] Practice Guidelines for the Assessment [...] Expected: No--[facility] Presence of a plan or final [...] meaningful daily activities: Yes Currently Employed: Yes Mormon affiliation (See spiritual assessment section above) Therapeutic [place]: Does pt believe treatment can help his/her [...] the date of the service which included scuf-cu-dclp patient care and completing clinical documentation. documented in this encounterMer[facility]07-28-2022 History of Present illness Narrative* [...] states he went through IOP at [facility] and did not have a good experience. SW recommended [facility] to patient and he is agreeable to trying this program. DEONDRE provided contact info and also emailed [facility] with this referral. Patient states he will also continue to go to his weekly home groupAA session every Thur at 8pm in [facility]. DEONDRE encouraged clt to reach out with any further questions or concerns. LAURA Jaimes Liver Transplant Social Work documented in this encounterMercy Health [facility]07-28-2022 History of Present illness Narrative* SHAQ Jaimes - 02/20/2022 10:05 AM EDT Patient scheduled for virtual follow up visit with DEONDRE today at 1pm. Patient left 2 messages via [employer] cancelling appointment due to time conflict. LAURA Jaimes Liver Transplant Social Work documented in this encounterMercy Health [facility]06-03-2022 History of Present illness Narrative* [...] 12:54 PM documented in this encounterMercy Health [facility]05-23-2022 History of Present illness Narrative* [...] IS. I spent more than 20 minutes ngzn-el-hrun with the patient and over half the time was devoted to counseling and/or coordination of care. Aidan Larios MD documented in this encounterMercy Health [facility]04-15-2022 Miscellaneous Notes* Telephone Encounter - Nadja Spencer RN - 11/08/2021 3:18 PM EDT Patient returned my text and said that he will be unavailable on 11/12, as he and his family just arrived at [facility]. He will be available for virtual visit on 11/19. I notified scheduling. Nadja Spencer RN (Cassie), BSN Liver Bus Starter * Telephone Encounter - Nadja Spencer RN [...] needed. Nadja Spencer RN (Cassie), BSN Liver Bus Starter documented in this encounterMercy Health [facility]12-17-2021 NoteHNO ID: [id number] Author: Saba Hills MD Service: Hospital Medicine Author Type: Physician Type: Plan of Care Filed: 07/12/2021 9:21 AM Note Text: # Acute Pancreatitis- in setting of biliary stenosis. Resolved. Last amylase was 59 Per recommendation of GI we initially plan to transfer to [facility] for ERCP but that was later [...] Vision MRI was negative Will discuss with parts coordinator We will also consult ID ? Need to look for CMV retinitis Saba Hills MD ?[facility] HospitalTkvsegmq47-87-1119 NoteHNO ID: [id number] Author: Maninder Aguilera DO Service: Hospital Medicine Author Type: Physician Type: Progress Notes Filed: 07/11/2021 10:58 AM Note Text: DEPARTMENT OF HOSPITAL MEDICINE PROGRESS NOTE SERVICE DATE: 07/11/2021 SERVICE TIME: 10:15 AM Hospital Medicine/Primary Attending: Maninder Aguilera DO NIGHT AND WEEKEND COVERAGE: [place] COVERAGE: Days: [phone], please contact via Ditto SecureMetroWorkssage Nights: [phone], please page CC Hospitalist Night coverage pager [phone] Subjective INTERVAL HPI: pt seen at bedside. [...] discussed with Provider, RN, Patient SIGNATURE: Maninder Aguielra DO PATIENT NAME: Chuckie Villalta DATE: July 11, 2021 TIME: 10:15 [facility]Kiliwhxz62-62-6476 NoteHNO ID: [id number] Author: Saba Hills MD Service: Hospital Medicine Author Type: Physician Type: Progress Notes Filed: 07/11/2021 5:13 AM Note Text: HOSPITAL MEDICINE PROGRESS NOTE Saba Hills MD NIGHT AND WEEKEND COVERAGE: ERICK COVERAGE: Days: [phone], please contact via Ditto [employer]age Nights: [phone], please page CC Hospitalist Night coverage pager [phone] Subjective HPI: Interval Events: has pain abdomen [...] sounds + EXTREMITY: : No ankle edema. ENERGY BROKER: grossly normal. No focal deficit. Lines, Drains, and Airways Line Peripheral 07/07/21 6588 Right Forearm 22 Gauge 2 days Reviewed [...] and GI GI is planning ERCP at [facility] as outpatient 2. History of hemochromatosis [...] 7:30 AM and 4:30 PM Chuckie Villalta Tfhbzlml16-05-0012 NoteHNO ID: [id number] Author: Jolynn Jaquez MD Service: Hospital Medicine Author Type: Physician Type: Progress Notes Filed: 07/09/2021 6:55 PM Note Text: HOSPITAL MEDICINE PROGRESS NOTE NIGHT AND WEEKEND COVERAGE: ERICK COVERAGE: Days: [phone], please contact via IoT Techn[employer]Machina Nights: [phone], please page CC Hospitalist Night coverage pager [phone] Hospital Medicine/Primary Attending: Jolynn Jaquez MD Subjective [...] sounds + EXTREMITY: : No ankle edema. ENERGY BROKER: grossly normal. No focal deficit. Lines, Drains, [...] outpatient. Patient to be scheduled at [facility]. Consider starting heparin subq for prophylaxis tomorrow [...] showed no acute process. Discussed with Neuro crown ironer. Plan to follow up outpatient with Neuro, [...] Villalta DATE: July 09, 2021 TIME: 4:16 [facility] HospitalTuysgejf04-92-4212 NoteHNO ID: [id number] Author: Tani Woodward MD, PhD Service: Neurology [...] Woodward MD, PhD July 09, 2021 3:20 [facility] HospitalMchvxvie71-82-1684 NoteHNO ID: [id number] Author: Isa San RDMS, RVT Service: Radiology Author Type: Vice President Of Talent Acquisition Type: Progress Notes Filed: 07/08/2021 12:04 PM [...] San RDMS, RVT July 08, 2021 12:03 [facility] HospitalNtxhkixn00-86-7633 NoteHNO ID: [id number] Author: Jolynn Jaquez MD Service: Hospital Medicine Author Type: Physician Type: Progress Notes Filed: 07/08/2021 11:56 AM Note Text: HOSPITAL MEDICINE PROGRESS NOTE NIGHT AND WEEKEND COVERAGE: ERICK COVERAGE: Days: [phone], please contact via Ditto [employer]Met[employer]Workssage Nights: [phone], please page CC Hospitalist Night coverage pager [phone] Hospital Medicine/Primary Attending: Jolynn Jaquez MD Subjective [...] tenderness in EXTREMITY: : No ankle edema. ENERGY BROKER: grossly normal. No focal deficit. Cranial nerves [...] Problems as of 07/08/2021 Noted - Resolved [facility] * (Principal) Acute pancreatitis 07/05/2021 - [...] still waiting to be transferred to [facility]). Pain management consult. YOAN on CKD In [...] Villalta DATE: July 08, 2021 TIME: 11:30 [facility] HospitalYenjruiw84-48-2613 NoteHNO ID: [id number] Author: Jolynn Jaquez MD Service: Hospital Medicine Author Type: Physician Type: Progress Notes Filed: 07/07/2021 3:10 PM Note Text: HOSPITAL MEDICINE PROGRESS NOTE NIGHT AND WEEKEND COVERAGE: ERICK COVERAGE: Days: [phone], please contact via IoT Technologiessage Nights: [phone], please page CC Hospitalist Night coverage pager [phone] Hospital Medicine/Primary Attending: Jolynn Jaquez MD Subjective HPI: Interval Events: AUTOMOBILE TESTER and prn dilaudid helping with pain abdomen. [...] minimal palpation EXTREMITY: : No ankle edema ENERGY BROKER: grossly normal. No focal deficit. Lines, Drains, [...] input Patient waiting to be transferred to [facility]. Likely needs ERCP. Pain control with fentanyl AUTOMOBILE TESTER, dilaudid prn Close monitoring ? Hemochromatosis 03/18/2018 [...] to get update regarding bed availability at [facility]. No bed assigned at [facility] yet. SIGNATURE: Jolynn Jaquez MD PATIENT NAME: Chuckie Villalta DATE: July 07, 2021 TIME: 2:59 [facility] HospitalPfwdaaji91-58-2686 NoteHNO ID: [id number] Author: Roma Horan MD Service: Hospital Medicine Author Type: Physician Type: Progress Notes Filed: 07/06/2021 12:47 PM Note Text: DEPARTMENT OF HOSPITAL MEDICINE PROGRESS NOTE SERVICE DATE: 07/06/2021 SERVICE TIME: 12:43 PM Hospital Medicine/Primary Attending: Roma Horan MD NIGHT AND WEEKEND COVERAGE: ERICK COVERAGE: Days: [phone], please contact via Ditto [employer]age Nights: [phone], please page CC Hospitalist Night coverage pager [phone] Subjective INTERVAL HPI: c/o 8/10 abdominal pain. [...] INTRAVENOUS q 6 H PRN - fentaNYL AUTOMOBILE TESTER 20 mcg/mL in NaCl 0.9% 100 mL [...] (HCC) POA: Yes YOAN (acute kidney injury) ([facility]) POA: Yes Hypomagnesemia POA: Yes Pancreatitis POA: Yes Primary hypertension POA: Yes Acute pancreatitis Assessment AND Plan: CT: Extensive pancreatitis with inflammatory changes surrounding the transverse colon, spleen and retroperitoneum. ?Small volume ascites is present. ?Extent of pancreatic necrosis cannot be assessed on a noncontrast examination - Patient accepted to [facility] when bed available - IV fluids, NPO except meds - symptom management - Vanco, cipro, flagyl started in ED--c/w same for now. Leukocytosis resolved today -improving lipase - Consult GI, pending [facility] transfer, appreciate recs. May need ERCP -called [...] recipient (HCC) Assessment AND Plan: seen at [facility], admits some noncompliance with medications as of late, and rare alcohol use - [facility] - continue prograf. Will hold Actigall while NPO ? Primary hypertension Assessment AND Plan: elevated in ED, likely due to pain and missed doses - resume po antihypertensives as able - manage pain as able Medication and Non-Pharmacologic VTE Prophylaxis/Anticoagulants VTE Prophylaxis: VTE prophylaxis appr (more content not included)...[facility] HospitalFvjoztqj69-35-4621 NoteHNO ID: [id number] Author: Interface Note Service: ? Author Type: ? Type: Progress Notes Filed: 07/06/2021 2:53 AM Note Text: Epic Scheduled Downtime: 07/06/2021 1:00:00 AM to 07/06/2021 2:38:59 AMCedar City HospitalDxxpkgvl24-07-6422 NoteHNO ID: [id number] Author: Lisseth Raymond APRN.[facility] Service: Hospital Medicine Author Type: Nurse Practitioner Type: Plan of Care Filed: 07/05/2021 11:59 PM Note Text: Patient's pain not being controlled with prn dilaudid. Per Up to Date, AUTOMOBILE TESTER recommended and fentanyl the safest drug to use for this purpose I discussed case with Dr Shook, I also discussed with the NOM and the pharmacist. A AUTOMOBILE TESTER pump ordered. Lisseth Raymond APRN.[facility] HospitalDyydekpq16-19-7396 NoteHNO ID: [id number] Author: Caryl Duran, RT(R) Service: ? Author [...] BY: RT Alok(R) July 05, 2021 11:38 [facility] HospitalHbxrkezn23-96-9969 NoteHNO ID: [id number] Author: RT Devorah(R) Service: Radiology Author Type: [...] BY: RT Devorah(R) July 05, 2021 7:00 [facility] HospitalEgefyxor66-65-0485 History of Past illness Narrative* Problem Noted [...] encounter (statuses as of 11/08/2021) [facility] of [facility] Narrative* [...] encounter (statuses as of 12/16/2021) [facility] of [facility] Narrative* [...] encounter (statuses as of 12/28/2021) [facility] of [facility] illness Narrative* [...] encounter (statuses as of 12/28/2021) [facility] of [facility] illness Narrative* [...] encounter (statuses as of 02/20/2022) [facility] Narrative* [...] encounter (statuses as of 02/25/2022) [facility] Narrative* [...] encounter (statuses as of 03/11/2022) [facility] Narrative* [...] encounter (statuses as of 03/24/2022) [facility] Narrative* [...] encounter (statuses as of 05/05/2022) [facility] Narrative* [...] encounter (statuses as of 07/28/2022) [facility] Narrative* [...] encounter (statuses as of 09/04/2022) [facility] Narrative* [...] encounter (statuses as of 09/04/2022) [facility] Narrative* [...] of 09/22/2022) [facility] Diagnosis Liver replaced by transplant (HCC)- Primary Liver replaced by transplant documented [facility] this [facility] Diagnosis Liver replaced by transplant (HCC)- Primary Liver replaced by transplant Need for prophylactic immunotherapy documented [facility] this [facility]* Diagnosis Uncomplicated alcohol dependence (HCC) Other and unspecified alcohol dependence, unspecified drinking behavior documented [facility] this [facility]* Diagnosis Liver transplant recipient (HCC)- Primary [facility]* Diagnosis 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 [facility] noteNo assessment information availableCh[facility]ic[facility] Work Phone: Evaluation note* Diagnosis Onset Date Resolution Status Admit Date Hypertension acute August 2:02pm Liver transplant rejection acute September 02, 2024 2:02pm Mid back pain on left side acute September 02, 2024 2:02pm Wellness examination acute Febr 2024 2:02pm [facility] Work Phone: Evaluation note* Diagnosis Onset Date Resolution Status Admit Date Cervical spondylosis acute February 17, 2025 10:04am Hypertension acute February 17, 025 10:04am Liver transplant rejection acute February 17, 2025 10:04am Lumbar spondylosis acute January 252024 10:04am Post-traumatic arthritis of left foot acute February 17, 2025 10:04am [facility] Work Phone: Hisxlhc general Narrative - Reported* Type Description Date [...] History COLONOSCOPY 2019 Hospitalization History See Above [facility] Other [employer] general Narrative - Reported* Type Description Date [...] stent replaced 11/2022 Hospitalization History See Above [facility] Other history general Narrative - Reported* Type [...] History ERCP 02/2023 Hospitalization History See Above [facility] Other Hospital course Narrative No data available for this section [facility] No data available for this section [facility]Reason for referral (narrative)* Outpatient Procedure (Routine) - Pending Review Specialty Diagnoses / Procedures Referred By Contac t Referred To Contact [facility] Diagnoses Biliary stricture Procedures ERCP ERCP DX COLLECTION SPECIMEN BRUSHING/WASHING Betina Barr MD [address] [place] [address] [facility] [place] [address] [place] [address] Referral ID Status Reason Start Date Expiration Date Visits Requested Visits Authorized [id number] Pending Review Auto-Generat ed Referral 12/02/2022 09/04/2023 1 1 [facility] for referral (narrative)No reason for referral information availableCh[facility] Work Phone: Summary Purpose Family History No Family History Records Found Relationship Condition Age at Onset Recorded Date/T sowmya father Malignant neoplasm of colon Unknown Hypertension Unknown mother Hypertension Unknown Myocardial infarction Unknown brother Epilepsy Unknown Advance Directives No Advanced Directives Records FoundDocuments on File Type Date Recorded Patient Site Inspector Expl anation Advance Directive(s) 10/30/2021 12:47 PM Advance Directive(s) 07/05/2021 6:47 PM Advance Directive(s) 07/16/2020 12:03 PM Advance Directive(s) 05/02/2020 10:37 AM Advance Directive(s) 07/10/2019 5:35 PM Advance Directive(s) 01/21/2019 3:11 PM Advance Directive(s) 10/06/2018 10:21 AM Advance Directive(s) 07/13/2018 6:11 AM Documents on File Type Date Recorded Patient Site Inspector Expl anation Advance Directive(s) 10/30/2021 12:47 PM Advance Directive(s) 07/05/2021 6:47 PM Advance Directive(s) 07/16/2020 12:03 PM Advance Directive(s) 05/02/2020 10:37 AM Advance Directive(s) 07/10/2019 5:35 PM Advance Directive(s) 01/21/2019 3:11 PM Advance Directive(s) 10/06/2018 10:21 AM Advance Directive(s) 07/13/2018 6:11 AM Documents on File Type Date Recorded Patient Site Inspector Expl anation Advance Directive(s) 10/06/2018 10:21 AM Latest Code Status on File Code Status Date Activated Date Inactivated Comments Full Code 09/01/2022 12:05 AM Full Code Order Discussed With: Patient Documents on File Type Date Recorded Patient Site Inspector Expl anation Advance Directive(s) 10/06/2018 10:21 AM [...] IVCON CT ABDOMEN W/CONTRAST Aidan Larios MD [address] [place] [address] Ct Imaging Referral ID Status Reason Start Date Expiration Date Visits Requested Visits Authorized [id number] Pending Review Auto-Generat ed Referral 12/24/2021 01/09/2023 1 1 Referral ID Status Reason Start Date Expiration Date V isits Requested Visits Authorized [id number] Closed Auto-Generated Referral Patient Cleared - INN [...] section and content) DATE CREATED AUTHOR 12/20/2020 [facility] DATE CREATED AUTHOR AUTHOR'S ORGANIZ ATION 07/13/2021 [facility] DATE CREATED AUTHOR AUTHOR'S ORGANIZ ATION 08/18/2021 [facility] DATE CREATED AUTHOR AUTHOR'S ORGANIZ ATION 11/09/2022 [facility] DATE CREATED AUTHOR AUTHOR'S ORGANIZ ATION 03/11/2025 [facility] DATE CREATED AUTHOR AUTHOR'S ORGANIZ ATION 04/13/2025 [facility] DATE CREATED AUTHOR AUTHOR'S ORGANIZ ATION 05/06/2025 [facility] Source Comments (unrecognize d section and content) In the event this informatio n is protected by the Federal Confidentiality of Alcohol and Drug Abuse Patient Records regulations: The Federal rules restrict any use of the information to criminally investigate or prosecute any alcohol or drug abuse patient.[facility] CenterIn the event this information is protected by the Federal Confidentiality of Alcohol and Drug Abuse Patient Records regulations: The Federal rules restrict any use of the information to criminally investigate or prosecute any alcohol or drug abuse patient.[facility] CenterIn the event this information is protected by the Federal Confidentiality of Alcohol and Drug Abuse Patient Records regulations: The Federal rules restrict any use of the information to criminally investigate or prosecute any alcohol or drug abuse patient.[facility] CenterIn the event this information is protected by the Federal Confidentiality of Alcohol and Drug Abuse Patient Records regulations: The Federal rules restrict any use of the information to criminally investigate or prosecute any alcohol or drug abuse patient.[facility] CenterIn the event this information is protected by the Federal Confidentiality of Alcohol and Drug Abuse Patient Records regulations: The Federal rules restrict any use of the information to criminally investigate or prosecute any alcohol or drug abuse patient.[facility] CenterIn the event this information is protected by the Federal Confidentiality of Alcohol and Drug Abuse Patient Records regulations: The Federal rules restrict any use of the information to criminally investigate or prosecute any alcohol or drug abuse patient.[facility] CenterIn the event this information is protected by the Federal Confidentiality of Alcohol and Drug Abuse Patient Records regulations: The Federal rules restrict any use of the information to criminally investigate or prosecute any alcohol or drug abuse patient.[facility] CenterIn the event this information is protected by the Federal Confidentiality of Alcohol and Drug Abuse Patient Records regulations: The Federal rules restrict any use of the information to criminally investigate or prosecute any alcohol or drug abuse patient.[facility] CenterIn the event this information is protected by the Federal Confidentiality of Alcohol and Drug Abuse Patient Records regulations: The Federal rules restrict any use of the information to criminally investigate or prosecute any alcohol or drug abuse patient.[facility] CenterIn the event this information is protected by the Federal Confidentiality of Alcohol and Drug Abuse Patient Records regulations: The Federal rules restrict any use of the information to criminally investigate or prosecute any alcohol or drug abuse patient.[facility] CenterIn the event this information is protected by the Federal Confidentiality of Alcohol and Drug Abuse Patient Records regulations: The Federal rules restrict any use of the information to criminally investigate or prosecute any alcohol or drug abuse patient.[facility] CenterIn the event this information is protected by the Federal Confidentiality of Alcohol and Drug Abuse Patient Records regulations: The Federal rules restrict any use of the information to criminally investigate or prosecute any alcohol or drug abuse patient.[facility] CenterIn the event this information is protected by the Federal Confidentiality of Alcohol and Drug Abuse Patient Records regulations: The Federal rules restrict any use of the information to criminally investigate or prosecute any alcohol or drug abuse patient.[facility] CenterIn the event this information is protected by the Federal Confidentiality of Alcohol and Drug Abuse Patient Records regulations: The Federal rules restrict any use of the information to criminally investigate or prosecute any alcohol or drug abuse patient.[facility] Reason for Visit (unrecogniz ed section and content) Reason Comments Radiology CT Specialty Diagnoses / Procedures Referred By Contac t Referred To Contact CT IMAGING Diagnoses Alcohol-induced acute pancreatitis, unspecified complication status Procedures CT ABDOMEN W IVCON CT ABDOMEN W/CONTRAST Aidan Larios MD [address] [place] [address] Ct Imaging Referral ID Status Reason Start Date Expiration Date V isits Requested Visits Authorized [id number] Closed Auto-Generated Referral Patient Cleared - INN [...] September 02, 2024 End: September 02, 2024 Certified Adapted Physical Educator Relationship Specialty Start Date End Date Luis Abdalla Damon, DO [address] [place] [address] PCP - General Internal Medicine 01/12/18 Angie Fernandes Jr. [address] [address] Referring Gastroenterology 01/12/18 Nadja Spencer RN [facility] [address] [place] [address] Transplant Center 08/31/19 Certified Adapted Physical Educator Relationship Specialty Start Date End Date Luis Abdalla, DO [address] [place] [address] PCP - General Internal Medicine 01/12/18 Angie Fernandes Jr. [address] [address] Referring Gastroenterology 01/12/18 Nadja Spencer RN [facility] [address] [place] [address] Transplant Center 08/31/19 Certified Adapted Physical Educator Relationship Specialty Start Date End Date Luis Abdalla, DO [address] [place] [address] PCP - General Internal Medicine 01/12/18 Angie Fernandes Jr. [address] [address] Referring Gastroenterology 01/12/18 Nadja Spencer RN [facility] [address] [place] [address] Transplant Center 08/31/19 Certified Adapted Physical Educator Relationship Specialty Start Date End Date Luis Abdalla, DO [address] [place] [address] PCP - General Internal Medicine 01/12/18 Angie Fernandes Jr. [address] [address] Referring Gastroenterology 01/12/18 Nadja Spencer RN [facility] [address] [place] [address] Transplant Center 08/31/19 Certified Adapted Physical Educator Relationship Specialty Start Date End Date Luis Abdalla, DO [address] [place] [address] PCP - General Internal Medicine 01/12/18 Angie Fernandes Jr. [address] [address] Referring Gastroenterology 01/12/18 Nadja Spencer RN [facility] [address] [place] [address] Transplant Center 08/31/19 Certified Adapted Physical Educator Relationship Specialty Start Date End Date Luis Abdalla, DO [address] [place] [address] PCP - General Internal Medicine 01/12/18 Angie Fernandes Jr. [address] [address] Referring Gastroenterology 01/12/18 Nadja Spencer RN [facility] [address] [place] [address] Transplant Center 08/31/19 Certified Adapted Physical Educator Relationship Specialty Start Date End Date Luis Abdalla, DO [address] [place] [address] PCP - General Internal Medicine 01/12/18 Angie Fernandes Jr., DO [address] [address] Referring Gastroenterology 01/12/18 Nadja Spencer RN [facility] [address] [place] [address] Transplant Center 08/31/19 Certified Adapted Physical Educator Relationship Specialty Start Date End Date Luis Abdalla, DO [address] [place] [address] PCP - General Internal Medicine 01/12/18 Angie Fernandes Jr., DO [address] [address] Referring Gastroenterology 01/12/18 Nadja Spencer, [place] [facility] [address] [place] [address] Transplant Center 08/31/19 Certified Adapted Physical Educator Relationship Specialty Start Date End Date Luis Abdalla, DO [address] [place] [address] PCP - General Internal Medicine 01/12/18 Angie Fernandes Jr., DO [address] [address] Referring Gastroenterology 01/12/18 Nadja Spencer, [place] [facility] [address] [place] [address] Transplant Center 08/31/19 Certified Adapted Physical Educator Relationship Specialty Start Date End Date Luis Abdalla, DO [address] [place] [address] PCP - General Internal Medicine 01/12/18 Angie Fernandes Jr., DO [address] [address] Referring Gastroenterology 01/12/18 Nadja Spencer, [place] [facility] [address] [place] [address] Transplant Center 08/31/19 Team Status: Inactive Member [...] BE BASED ON THE PRIMARY CLINICAL RECORDS. [facility] [employer] [facility]. provides no warranty or guarantee of the accuracy or completeness of information in this document.
--- NOTE | 2025-05-11 11:36 | XR_ITS ---
The [address] [address] Patient Name: MICHAEL AN MRN: [id number] date: 1985 Sex: M Assigned Patient Location: RAD Current Patient Location: [facility] Accession/Order Number: [id number] Exam Date: 05/11/2025 11:30 Report Date: 05/11/2025 14:42 At the request of: ADAN SMITH NP Procedure: XR foot LT min 3V LEFT FOOT - 3 views CLINICAL HISTORY: Left foot 3 views COMPARISON: None FINDINGS: No focal soft tissue abnormality. No acute bony process. Mild degenerative changes particularly involving the midfoot without bony erosions. XR/XR foot LT min 3V IMPRESSION: MILD DEGENERATIVE CHANGE WITHOUT ACUTE BONY PROCESS. Impression dictated by: Chaka Quesada Jr., D.O. 05/11/2025 2:42 PM Dictation Location: [place] [address] Electronically authenticated by: [id number] Y Date: 05/11/2025 14:42
--- NOTE | 2025-05-11 11:36 | XR_ITS ---
The [address] [address] Patient Name: MICHAEL AN MRN: [id number] date: 1985 Sex: M Assigned Patient Location: RAD Current Patient Location: [facility] Accession/Order Number: [id number] Exam Date: 05/11/2025 11:30 Report Date: 05/11/2025 14:43 At the request of: ADAN SMITH NP Procedure: XR ankle LT min 3V LEFT ANKLE - 3 views CLINICAL HISTORY: Chronic Left Foot Pain , Ankle Pain COMPARISON: None FINDINGS: No focal soft tissue abnormality. Ankle mortise demonstrate degenerative changes without acute bony process. XR/XR ankle LT min 3V IMPRESSION: NO ACUTE BONY PROCESS. Impression dictated by: Franc Meza Jr.OArsalan 05/11/2025 2:43 PM Dictation Location: [place] [address] Electronically authenticated by: [id number] Y Date: 05/11/2025 14:43
== END 2025-05-11 11:10 | disposition home or self-care (01) ==
PROVIDERS: PCP Internal Medicine; Visit Provider Nurse Practitioner
DX: M79.672 Pain in left foot (principal)
CPT/HCPCS: 73610; 73630